=== PATIENT | female | born 1940 | race Caucasian/White ===

== ENCOUNTER 2019-09-12 18:41 | Emergency (ER) | payer MEDICARE, SELFPAY ==
[2019-09-12 18:54] VITALS: BP 157/64; PULSE 94; RESP 16; TEMP 36.8; O2SAT 98
--- NOTE | 2019-09-12 18:58 | PC.NURSE ---
in br to obtain ua spec.
--- NOTE | 2019-09-12 19:30 | ED.GENADULT ---
HPI - General Adult General Chief complaint: Urogenital-Female Stated complaint: possible uti Time Seen by Provider: 09/12/19 19:30 Source: patient and RN notes reviewed Mode of arrival: ambulatory Limitations: no limitations History of Present Illness HPI narrative: 79-year-old female presents with urinary complaints for 1 day. Dysuria consist of burning, frequency, decrease urine output, and urgency.? Azo with little relief.? Denies fever or chills. No significant pelvic pain. No vaginal discharge.? No concerns for STDs. Exacerbating factors urinating.? Denies hematuria or vaginal bleeding. Denies being , Hysterectomy.? No flank pain. Remains active. The patient reports she have not been diagnosed with COVID-19. The patient reports she is not waiting for the results of a COVID-19 lab test. The patient reports she do not have fever, chills, weakness, fatigue, or myalgia. The patient reports she do not have a new or worsening cough or shortness of breath. Denies chest pain. The patient reports she do not have any rhinorrhea, congestion, sore throat, nausea, vomiting, abdominal pain, and diarrhea. Tolerating po intake well. Denies concerns for COVID-19 or exposures been home with limited outdoor exposure except for essential household needs and return home. At this time, patient is not suspected of having COVID-19. Some parts of this dictation were generated by voice recognition software and may contain typographical and/or grammatical inaccuracies. Related Data Home Medications Medication Instructions Recorded Confirmed calcium carb 300 mg-D3 800 1 tablet PO DAILY 04/11/19 unit-mag ox 25 mg-copy operator 0.5 mg-danny-Zn tablet levothyroxine 50 mcg tablet 50 mcg PO DAILY 04/11/19 lisinopril 10 mg tablet 10 mg PO DAILY 04/11/19 omeprazole 20 mg capsule,delayed 20 mg PO DAILY 04/11/19 release spironolactone 25 mg tablet 25 mg PO DAILY 04/11/19 Allergies Allergy/AdvReac Type Severity Reaction Status Date / Time cefdinir Allergy Unknown Unknown Verified 04/11/19 14:15 clarithromycin Allergy Unknown Unknown Verified 04/11/19 14:15 clindamycin Allergy Unknown Unknown Verified 04/11/19 14:15 codeine Allergy Unknown Unknown Verified 04/11/19 14:15 dexamethasone Allergy Unknown Unknown Verified 04/11/19 14:15 doxycycline Allergy Unknown Unknown Verified 04/11/19 14:15 morphine Allergy Unknown Unknown Verified 04/11/19 14:15 tobramycin Allergy Unknown Unknown Verified 04/11/19 14:15 cephalexin AdvReac Mild YEAST Verified 04/11/19 14:15 INFECTION Review of Systems Review of Systems: Narrative: CONSTITUTIONAL: Denies fever, chills, sweats. EYES: Denies visual changes, redness, discharge. ENT: Denies rhinorrhea, congestion, sore throat, otalgia. CARDIOVASCULAR: Denies chest pain, palpitations, edema. RESPIRATORY: Denies dyspnea, wheezing, cough. GASTROINTESTINAL: Denies abdominal pain, nausea, vomiting, diarrhea. GENITOURINARY: Complains of dysuria (burning, frequency, decrease urine output, and urgency). Denies hematuria, abnormal discharge. SKIN: Denies rash or itching. MUSCULOSKELETAL: Denies acute back pain, joint pain, or myalgia. NEUROLOGIC: Denies numbness or focal weakness. PSYCHIATRIC: Denies anxiety or depression. All systems reviewed & are unremarkable except as noted in HPI and below. REPLACED BY [facility] Past Medical History Medical History (Updated 09/13/19 @ 00:00 by [facility] [place]) Acid reflux History of vaginal delivery Hypertension Irritable bowel Migraines Osteoporosis Thyroid disease Torn meniscus Surgical History Surgical History (Updated 09/12/19 @ 19:53 by FRANCISCO Ho) History of ankle surgery History of carpal tunnel release History of colon resection History of hemorrhoidectomy History of surgical removal of intestinal structure History of vaginal hysterectomy Family History Family History Sibling Family hist
--- NOTE | 2019-09-12 19:57 | PC.NURSE ---
urine order canceled due to inablilty to read from pt taking azo. culture was sent.
== END 2019-09-12 19:41 | disposition home or self-care (01) ==
PROVIDERS: Emergency Provider Nurse Practitioner Family; PCP Nurse Practitioner Adult Health
DX: R30.0 Dysuria (principal); K21.9 Gastro-esophageal reflux disease without esophagitis; I10 Essential (primary) hypertension; K58.9 Irritable bowel syndrome, unspecified; M81.0 Age-related osteoporosis without current pathological fracture
CPT/HCPCS: 87086; 99213; G0463

== ENCOUNTER 2019-12-24 21:36 | Inpatient (IN) | payer MEDICARE, SELFPAY ==
--- NOTE | ~2019-12-24 | XR_ITS ---
EXAMINATION: XR chest 1V portable EXAM DATE: 01/03/2020 06:28 INDICATION: COVID-19 pneumonia. TECHNIQUE: Portable AP frontal chest x-ray was obtained. Comparison is made to prior examination from 01/01. FINDINGS: There is a right-sided PICC line with tip projecting over the cavoatrial junction. Extensive bilateral acute airspace disease with relative sparing of the left lung apex. No pneumothor ax or pleural effusion. Cardiomediastinal silhouette is normal. Mild bony degenerative changes. There is no significant interval change. IMPRESSION: Extensive bilateral acute infectious process unchanged. Reviewed, dictated and finalized at location A.
--- NOTE | ~2019-12-24 | XR_ITS ---
EXAMINATION: XR chest PICC line EXAM DATE: 12/30/2019 13:05 INDICATION: COVID-19 pneumonia. TECHNIQUE: Portable AP frontal chest x-ray was obtained. Comparison is made to prior examination from earlier same date. FINDINGS: There is a right-sided PICC line with tip projecting over the cavoatrial junction. Extens florecita bilateral acute airspace disease with relative sparing of the left lung apex. No pneumothorax or pleural effusion. Cardiomediastinal silhouette is normal. Mild bony degenerative changes. IMPRESSION: Extensive bilateral acute airspace disease unchanged, likely infection given history pro vided. Reviewed, dictated and finalized at location A. IMPRESSION: Extensive bilateral acute airspace disease unchanged, likely infec tion given history provided.
--- NOTE | ~2019-12-24 | XR_ITS ---
XR chest 1V portable 12/28/2019 05:35 Indication: Pneumonia. Procedure: AP portable chest Comparison: Comparison to multiple prior studies sequentially, with oldest reviewed study dated 05/21. Findings: Heart size normal. There is patchy bilateral airspace disease which has progressed since , consistent with pneumonia. Heart size normal. No pleural effusion or pneumothorax. No acute osseous abnormality. Impression: 1: Progression of patchy bilateral airspace disease, compatible with pneumonia. Reviewed, dictated and finalized at location A. Impression: 1: Progression of patchy bilateral airspace disease, compatible with pneumonia.
--- NOTE | ~2019-12-24 | XR_ITS ---
XR chest 1V portable 12/27/2019 06:03 Indication: Pneumonia. Procedure: AP portable chest Comparison: Comparison to multiple prior studies sequentially, with oldest reviewed study dated 05/14. Findings: Heart size normal. There has been progression of diffuse bilateral airspace disease, compat ible with pneumonia. Possible small left effusion. No pneumothorax. Impression: 1: Progression of extensive bilateral pneumonia since prior examination. Reviewed, dictated and finalized at location A. Impression: 1: Progression of extensive bilateral pneumonia since prior examination.
--- NOTE | ~2019-12-24 | XR_ITS ---
EXAMINATION: XR chest 1V portable INDICATION: Weakness, COVID 19 positive 2 weeks ago TECHNIQUE: Portable AP chest at 2232 hours COMPARISON: 05/21/2011 FINDINGS: There are peripheral airspace opacities with a mid and lower lung zone predominance. No ple ural effusion or pneumothorax is identified. The cardiomediastinal silhouette is normal. IMPRESSION: 1. Bilateral airspace opacities in a distribution consistent with COVID 19 pneumonia. Reviewed, dictated and finalized at location A. IMPRESSION: 1. Bilateral airspace opacities in a distribution consistent with COVID 19 pneu monia.
--- NOTE | ~2019-12-24 | XR_ITS ---
XR chest 1V portable DATE: 01/06/2020 07:01 INDICATION: Covid pneumonia TECHNIQUE: Portable AP chest on 01/06/2020 at 0624 hours COMPARISON: 01/03/2020 portable AP chest at 0504 hours FINDINGS: There are persistent patchy bilateral pulmonary infiltrates with little interval change sin ce 01/03/2020. Heart size appears within normal limits. There is extensive aortic calcification. Diffuse osteopenia. Right upper extremity PIC catheter tip is situated near the superior cavoatrial junction. IMPRESSION: Extensive bilateral pulmonary infiltrates, essentially stable since 01/03/2020 Reviewed, dictated and finalized at location A.
--- NOTE | ~2019-12-24 | XR_ITS ---
XR chest 1V portable 12/29/2019 05:54 Indication: Pneumonia. Dyspnea. Procedure: AP portable chest Comparison: Comparison to multiple prior studies sequentially, with oldest reviewed study dated 12/23. Findings: Heart size normal. Extensive bilateral airspace disease has progressed, consistent with pne umonia. Possible small effusion. No pneumothorax. No acute osseous abnormality. Impression: 1: Progression of diffuse bilateral airspace disease, consistent with pneumonia. Edema not excluded. Reviewed, dictated and finalized at location A. Impression: 1: Progression of diffuse bilateral airspace disease, consistent with pneumonia . Edema not excluded.
--- NOTE | ~2019-12-24 | XR_ITS ---
EXAMINATION: XR chest 1V portable EXAM DATE: 12/30/2019 06:08 INDICATION: COVID-19 pneumonia. TECHNIQUE: Portable AP frontal chest x-ray was obtained. Comparison is made to prior examination from 12/29/2019. FINDINGS: Extensive bilateral acute airspace disease with relative sparing of the left lung apex. No pneumothorax or pleural effusion. Cardiomediastinal silhouette is normal. There are no osseous abnorm alities identified. Accounting for differences in technique, there is no significant interval change. IMPRESSION: Extensive bilateral acute airspace disease, likely infection given history provided. Reviewed, dictated and finalized at location A.
--- NOTE | ~2019-12-24 | XR_ITS ---
EXAMINATION: XR chest 1V portable EXAM DATE: 12/26/2019 09:56 INDICATION: COVID-19. Worsening hypoxia. TECHNIQUE: Portable AP frontal chest x-ray was obtained. Comparison is made to prior examination from 12/24/2019. FINDINGS: Again there is moderate amount of bilateral ill-defined peripheral predominant acute airspa ce disease, appearance and distribution not significantly changed. No pneumothorax or pleural effusio n. Cardiomediastinal silhouette is normal. There are mild bony degenerative changes. Mild scattered a ortic arterial sclerosis. IMPRESSION: Moderate amount of acute bilateral airspace disease unchanged. Reviewed, dictated and finalized at location B.
--- NOTE | ~2019-12-24 | XR_ITS ---
EXAMINATION: XR chest 1V portable EXAM DATE: 12/31/2019 06:08 INDICATION: COVID-19 pneumonia. TECHNIQUE: Portable AP frontal chest x-ray was obtained. Comparison is made to prior examination from 12/29, 12/28. FINDINGS: There is a right-sided PICC line with tip projecting over the cavoatrial junction. Extensive bilateral acute airspace disease with relative sparing of the left lung apex. No pneumothor ax or pleural effusion. Cardiomediastinal silhouette is normal. Mild bony degenerative changes. There is no significant interval change. IMPRESSION: Extensive bilateral acute infectious process unchanged. Reviewed, dictated and finalized at location A.
--- NOTE | ~2019-12-24 | XR_ITS ---
EXAMINATION: XR chest 1V portable EXAM DATE: 01/02/2020 05:55 INDICATION: COVID-19 pneumonia. TECHNIQUE: Portable AP frontal chest x-ray was obtained. Comparison is made to prior examination from 12/30. FINDINGS: There is a right-sided PICC line with tip projecting over the cavoatrial junction. Extensive bilateral acute airspace disease with relative sparing of the left lung apex. No pneumothor ax or pleural effusion. Cardiomediastinal silhouette is normal. Mild bony degenerative changes. There is no significant interval change. IMPRESSION: Extensive bilateral acute infectious process unchanged. Reviewed, dictated and finalized at location A.
[2019-12-24 21:47] VITALS: BP 158/68; PULSE 102; RESP 23; TEMP 36.7; O2SAT 72
--- NOTE | 2019-12-24 21:55 | ECG_ITS ---
Measurements Intervals [place] Rate: 103 P: 32 CT: 139 QRS: 35 QRSD: 104 T: 35 QT: 326 QTc: 429 Interpretive Statements SINUS TACHYCARDIA DELAYED PRECORDIAL R/S TRANSITION BASELINE WANDER- V4-V6 BORDERLINE ECG Electronically Signed On 12-25-2019 6:42:09 CDT by Steve Del Castillo D.O.
--- NOTE | 2019-12-24 21:57 | ED.GENADULT ---
HPI - General Adult General Chief complaint: Weakness Stated complaint: COVID+/FEVER/NO CHAN/N/V Time Seen by Provider: 12/24/19 21:44 Source: patient Mode of arrival: ambulatory History of Present Illness HPI narrative: Patient is a 79 y/o female complaining of severe generalized weakness for approximately 1 week. There is no alleviating or exacerbating factor. She states that she also has fever, cough, nausea and poor appetite. She has headache and body ache. She denies SOB, but pulse ox at home was showing low readings. She tested positive for COVID approximately 1 week ago on 12/16. She states that at the time she was tested, she was not symptomatic. She got tested because her friend tested positive on routine pre-op testing. She started to feel sick shortly after she tested positive for COVID. Related Data Home Medications Medication Instructions Recorded Confirmed calcium carb 300 mg-D3 800 1 tablet PO DAILY 04/11/19 12/25/19 unit-mag ox 25 mg-copyman 0.5 mg-danny-Zn tablet lisinopril 10 mg tablet 10 mg PO DAILY 04/11/19 12/25/19 omeprazole 20 mg capsule,delayed 20 mg PO DAILY 04/11/19 12/25/19 release spironolactone 25 mg tablet 25 mg PO DAILY 04/11/19 12/25/19 benzonatate 200 mg PO TID 12/24/19 12/25/19 levothyroxine 50 mcg PO DAILY 12/24/19 12/25/19 Allergies Allergy/AdvReac Type Severity Reaction Status Date / Time cefdinir Allergy Unknown Unknown Verified 12/24/19 21:59 clarithromycin Allergy Unknown Unknown Verified 12/24/19 21:59 clindamycin Allergy Unknown Unknown Verified 12/24/19 21:59 codeine Allergy Unknown Unknown Verified 12/24/19 21:59 dexamethasone Allergy Unknown Unknown Verified 12/24/19 21:59 doxycycline Allergy Unknown Unknown Verified 12/24/19 21:59 morphine Allergy Unknown Unknown Verified 12/24/19 21:59 tobramycin Allergy Unknown Unknown Verified 12/24/19 21:59 cephalexin AdvReac Mild YEAST Verified 12/24/19 21:59 INFECTION Review of Systems Constitutional: Constitutional: Reports chills, Reports fever(s), Reports headache(s) and Reports weakness Eyes: Eyes: Denies blurry vision ENT: Reports headache(s) and Denies neck pain Cardiovascular: Cardiovascular: Denies chest pain and Denies dyspnea Respiratory: Respiratory: Reports cough and Denies dyspnea Gastrointestinal: Gastrointestinal: Denies abdominal pain, Denies diarrhea, Denies nausea and Denies vomiting Genitourinary: Genitourinary: Denies hematuria and Denies dysuria Musculoskeletal: Musculoskeletal: Denies back pain and Denies neck pain Neurologic: Denies headache(s) and Reports weakness PMFSH Past Medical History Medical History (Updated 12/25/19 @ 03:11 by Bindu Sun DO) Acid reflux Adrenal adenoma benign Hepatic steatosis and liver cyst Hiatal hernia Hypertension Hypothyroidism Irritable bowel Migraines Osteoporosis Surgical History Surgical History (Updated 12/25/19 @ 02:43 by Bindu Sun DO) History of ankle surgery (~2000) ORIF right ankle History of bilateral cataract extraction History of carpal tunnel surgery of right wrist (~2015) History of colonoscopy with polypectomy most recent December 2018 with edematous polyps History of hemorrhoidectomy (~2011) History of medial meniscus repair of right knee (~2014) History of reconstructive repair of rectocele (~1995) History of vaginal hysterectomy (~1995) without oophorectomy S/P laparoscopic-assisted sigmoidectomy (~08/2018) due to chronic diverticulitis Family History Family History Sibling Hypertension Hyperlipidemia Thyroid disease it sounds as if the patient sister likely had Graves disease with a thyroidectomy and then became ill because her thyroid hormone was not replaced. Acute myocardial infarction Brother early-onset Artificial cardiac pacemaker brother Mother Hypertension Thyroid disease It sounds as if her mother likely had Grav
[2019-12-24 22:08] LABS: Basophils Percent Auto 0.4 % (0.2-1.2); Eosinophils Percent Auto 0.1 % (0-4.4); Hematocrit 35.7 % (37.0-47.0); Hemoglobin 11.8 g/dL (12.0-15.0); Immature Granulocyte Absolute 0.15 K/mm3 (0.00-0.031); Lymphocytes Absolute Auto 0.98 K/mm3 (0.9-3.2); Lymphocytes Percent Auto 12.9 % (18.3-44.2); Mean Corpuscular HGB Conc 33.1 g/dl (32-36); Mean Corpuscular Hemoglobin 36.5 pg (26-34); Mean Corpuscular Volume 110.5 fl (80-100); Mean Platelet Volume 11.7 fl (7.4-10.4); Monocytes Absolute Auto 0.9 K/mm3 (0.1-0.6); Monocytes Percent Auto 11.4 % (2.6-8.5); Neutrophils Absolute Auto 5.6 K/mm3 (1.3-6.7); Neutrophils Percent Auto 73.2 % (45.5-73.1); Nucleated Red Blood Cells Perc 0.3 % (0.0-0.2); Platelet Count Result 282 k/mm3 (150-375); Red Blood Count 3.23 M/mm3 (4.2-5.4); Red Cell Distribution Width 13.2 % (11.5-14.5); White Blood Count 7.6 K/mm3 (4.5-10.0)
[2019-12-24 22:16] LABS: Platelet Estimate Adequate (Adequate)
[2019-12-24 22:17] LABS: Alanine Aminotransferase 47 U/L (4-35); Alkaline Phosphatase 31 U/L (38-126); Anion Gap 9 mmol/L (8-16); Aspartate Amino Transferase 50 U/L (14-36); Atypical Lymphocytes Present; Blood Urea Nitrogen 17 mg/dL (7-17); Calcium 8.8 mg/dL (8.4-10.2); Carbon Dioxide 33 mmol/L (22-30); Chloride 94 mmol/L (98-107); Estimated CRCL calculation 40 ml/min; Estimated Glomerular Filt Rate > 60; Glucose 130 mg/dL (65-105); Potassium 3.8 mmol/L (3.4-5.0); Sodium 136 mmol/L (137-145)
[2019-12-24 22:17] LABS: Alveolar/Arterial O2 Gradient 66.8 mmHg; Fractional Inspired Oxygen 21 %; HCO3 ABG 26.7 mEq/l (22.0-26.0); Oxygen Content ABG 11.7 %vol (16.0-22.0); PCO2 ABG 37.6 mmHg (35.0-45.0); Total Hemoglobin 11.9 g/dL (12.0-18.0); pH ABG 7.469 (7.350-7.450)
[2019-12-24 22:18] LABS: PO2 ABG 37.9 mmHg (80.0-100.0)
[2019-12-24 22:19] LABS: Device ROOM AIR; Modified Allen's Test Pass; Oxygen Saturation ABG 75.8 % (95.0-100.0); Site Drawn RIGHT RADIAL
[2019-12-24 22:28] LABS: Troponin I 0.021 ng/mL (0.000-0.034)
[2019-12-24 23:00] VITALS: BP 148/67; PULSE 95; RESP 26; O2SAT 91
[2019-12-24 23:18] LABS: Add Urine Microscopic? YES; Appearance Urine Cloudy (Clear); Bacteria Urine Trace /hpf; Bilirubin Urine Negative (Negative); Blood Urine 1+ (Negative); Color Urine Amber (Yellow); Glucose Urine UA Negative (Negative); Ketones Urine Negative (Negative); Leukocyte Esterase Ur 2+ LEU/UL (Negative); Mucus Urine Few /lpf; Nitrate Urine Negative (Negative); Protein Urine 2+ mg/dL (Negative); Specific Grav Ur 1.025 (1.001-1.035); Squamous Epithelial Cell Urine Many /hpf (Few); WBC Urine 16-20 /hpf
[2019-12-24 23:30] VITALS: BP 101/81; PULSE 92; RESP 25; O2SAT 96
[2019-12-24] MEDS: REMDESIVIR 200 MG/NS 250 ML 200 MG/250 ML BAG 250 MG IVPB (23:30)
--- NOTE | 2019-12-24 23:37 | PM.IMHP ---
H&P: HPI History of Present Illness Date/Time: 12/24/19 23:37 Chief complaint: COVID positive, low oxygen saturation Narrative: Venessa Villar is a 79 year old female with a past medical history of hypertension and COVID19 who presented to the ER with worsening symptoms and low oxygen saturations. The patient had went to an outdoor restaurant for a celebration with some friends. One of those friends was supposed to have a cataract surgery and had COVID testing preoperatively. The friend was asymptomatic but tested positive for COVID 19. Subsequently 5/6 people that went to dinner tested positive for COVID. The patient's daughters have both now been tested and her positive for COVID as well as some of her grandchildren. The patient was subsequently tested on December 16 and her test results came back a couple of days later and she was positive. The day after she was tested she began having generalized body ache, headache and fatigue . She also developed rhinorrhea and postnasal drip as well as a cough productive of small amount of sputum. Cough was unrelieved despite Benzonate. She was coughing so much that she would have post-tussive emesis. She was also having significant nausea. She denies any abdominal pain, diarrhea or changes in bowel habits. Her daughter was a nurse at a student accounts manager office brought over a pulse oximeter And check the patient's oxygen saturations. The oxygen saturations on the home Pulse oximeter ranging anywhere from the mid 40s up to the mid 50s. The pulse oximeter was reading normal pulse oximetry values for the rest of the family members. the patient reports being afebrile until earlier today when she was 100.2 before coming to the ER. She has noticed a complete loss of sense of taste. She denies loss of sense of smell. given the patient's significant oxygen requirement and increasing oxygen requirement we did try to discuss with the patient the use of Decadron. She refuses to take Decadron because she has a allergy her reported allergy to Decadron is anxiety, headache and high blood pressure. She states that her physician told her to never take Decadron again if that was the case . Both I and the ER physician tried to discuss with the patient these are side effects and not a true allergic reaction but the patient is adamant that she will not take Decadron. Incidentally many of the patient's listed allergies involve nausea, upset stomach or increased sleepiness. Her allergy to Keflex was a yeast infection. Review of Systems Review of Systems: Narrative: 12 systems were reviewed with pertinent positives and negatives per HPI. Except as documented in the HPI, all other systems were reviewed and are negative. [facility] Past Medical History Medical History (Updated 12/25/19 @ 03:11 by Bindu Sun DO) Acid reflux Adrenal adenoma benign Hepatic steatosis and liver cyst Hiatal hernia Hypertension Hypothyroidism Irritable bowel Migraines Osteoporosis Surgical History Surgical History (Updated 12/25/19 @ 02:43 by Bindu Sun DO) History of ankle surgery (~2000) ORIF right ankle History of bilateral cataract extraction History of carpal tunnel surgery of right wrist (~2015) History of colonoscopy with polypectomy most recent December 2018 with edematous polyps History of hemorrhoidectomy (~2011) History of medial meniscus repair of right knee (~2014) History of reconstructive repair of rectocele (~1995) History of vaginal hysterectomy (~1995) without oophorectomy S/P laparoscopic-assisted sigmoidectomy (~08/2018) due to chronic diverticulitis Family History Family History Sibling Hypertension Hyperlipidemia Thyroid disease it sounds as if the patient sister likely had Graves disease with a thyroidectomy and then became ill because her thyroid hormone was not replaced. Acute myocardial infarction Brother e
[2019-12-25] VITALS (27 sets, daily range): BP systolic 105–149; BP diastolic 44–63; PULSE 69–98; RESP 20–31; TEMP 36.4–38.8; O2SAT 81–95; BMI 33.1
--- NOTE | 2019-12-25 01:26 | ADMIMU ---
This patient, Venessa Villar, was admitted to IMU status, and placed in Intensive Care Unit-3 on 12/25/2019 0100. Patient/family oriented to hospital policies and general routines including ID bracelet, bed and alarms, visiting hours, pain management, procedures, bathroom and other care routines, personal items, smoking policy, room service/diet, and visiting hours. Valuables list has been completed. Information on how to activate the Rapid Response Team has been discussed. Patient/Family are encouraged to report perceived risks to care and to ask questions if they do not understand what they are told or what they should do.
[2019-12-25 01:46] LABS: Troponin I 0.025 ng/mL (0.000-0.034)
[2019-12-25] MEDS: ONDANSETRON INJ 4 MG/2 ML VIAL IV PUSH ×2 (04:33→18:57)
[2019-12-25 04:59] LABS: Alanine Aminotransferase 38 U/L (4-35)
[2019-12-25 05:11] LABS: Troponin I 0.022 ng/mL (0.000-0.034)
[2019-12-25] MEDS: LEVOTHYROXINE SODIUM 50 MCG TABLET PO (06:18)
[2019-12-25] MEDS: LEVALBUTEROL HFA (*SP) 15 GM INHALER 4 PUFF INHALATION ×3 (08:13→19:42)
[2019-12-25] MEDS: lisinopriL 10 MG TABLET PO (08:48)
[2019-12-25] MEDS: BENZONATATE 100 MG CAPSULE 200 MG PO ×3 (08:48→16:08)
[2019-12-25] MEDS: PANTOPRAZOLE 40 MG TABLET PO (08:48)
[2019-12-25] MEDS: ENOXAPARIN 40 MG/0.4 ML SYRINGE SUB-Q ×3 (08:48→20:29)
[2019-12-25 09:17] LABS: Estimated CRCL calculation 46 ml/min; Estimated Glomerular Filt Rate > 60
[2019-12-25] MEDS: predniSONE 20 MG TABLET 40 MG PO (11:56)
[2019-12-25] MEDS: ACETAMINOPHEN 325 MG TABLET 650 MG PO (11:57)
--- NOTE | 2019-12-25 15:57 | PM.IMPN ---
Progress Note: A&P Assessment and Plan (1) Acute respiratory failure with hypoxia: Code(s): J96.01 - Acute respiratory failure with hypoxia Status: Acute Assessment and Plan: The patient has been placed on Remdesivir. She refused Decadron stating she was allergic but did state she was taking prednisone and agreed to equivalent dose of prednisone daily ie 40 mg. The patient was requiring 4 L nasal cannula in the ER. this has been slowly increased. Patient has been admitted to the IMU status in the ICU And will monitor closely. If oxygen requirements continue to rise then will use convalescent plasma. Continue isolation. (2) Pneumonia due to COVID-19 virus: Code(s): U07.1 - COVID-19; J12.89 - Other viral pneumonia Status: Acute Assessment and Plan: Continue Remdesivir and prednisone Supplemental oxygen. Maintain balanced fluid status. Xopenex and Spiriva inhalers (3) Sepsis: Qualifiers: Sepsis type: sepsis due to unspecified organism Sepsis acute organ dysfunction status: with acute organ dysfunction Severe sepsis acute organ dysfunction type: acute respiratory failure Acute respiratory failure type: with hypoxia Severe sepsis shock status: without septic shock Qualified Code(s): A41.9 - Sepsis, unspecified organism; R65.20 - Severe sepsis without septic shock; J96.01 - Acute respiratory failure with hypoxia Code(s): A41.9 - Sepsis, unspecified organism Status: Acute Assessment and Plan: due to COVID. based on criteria of fever, tachypnea, hypoxia. The patient's transaminases are elevated but she states that she always has some mildly elevated liver enzymes. continue to follow with the delisa rx Subjective Date/time seen: 12/25/19 15:57 Interval history: date of visit 12/24. 79-year-old female with known COVID presented with fever malaise increasing shortness of breath. O2 sats at home were not read showing in here she is found to be hypoxic and recovered with high-flow oxygen. Within 10 day window so started on remdesivir and steroids. feels poorly with loss of taste also. Exam Narrative: Exam Narrative: blood pressure 136/60 pulse is 90 respirations 24 per minute satting 93% on nasal cannula high-flow with a temp of 38?.8 pupil equal reactive to light sclera anicteric neck is supple lungs very faint crackle right posterior base CV regular rate rhythm no murmur abdomen is soft nontender no masses extremities without edema distal pulses 1+ neuro left pleasant cooperative Objective Data Vital Signs Vital Signs: Vital Signs - 24 hr 12/24/19 21:47 12/24/19 23:00 12/24/19 23:30 Temperature 36.7 C Pulse Rate 102 H 95 92 Respiratory Rate 23 H 26 H 25 H Blood Pressure 158/68 H 148/67 H 101/81 Pulse Oximetry 72 L 91 96 12/25/19 00:25 12/25/19 01:00 12/25/19 01:05 Temperature 38.1 C H Pulse Rate 91 85 Respiratory Rate 22 H 31 H Blood Pressure 136/63 145/61 H Pulse Oximetry 95 84 L 82 L 12/25/19 01:15 12/25/19 01:45 12/25/19 02:00 Temperature Pulse Rate 84 Respiratory Rate Blood Pressure Pulse Oximetry 89 L 92 12/25/19 03:31 12/25/19 04:00 12/25/19 06:00 Temperature 36.8 C 36.9 C Pulse Rate 79 83 Respiratory Rate 22 H Blood Pressure 143/59 H Pulse Oximetry 94 12/25/19 08:00 12/25/19 08:14 12/25/19 08:21 Temperature Pulse Rate 92 93 94 Respiratory Rate 20 20 20 Blood Pressure 149/53 H Pulse Oximetry 93 81 L 84 L 12/25/19 08:31 12/25/19 10:00 12/25/19 11:57 Temperature 38.8 C H Pulse Rate 92 95 Respiratory Rate 20 Blood Pressure Pulse Oximetry 93 12/25/19 12:00 12/25/19 14:00 12/25/19 14:15 Temperature 38.8 C H Pulse Rate 90 80 80 Respiratory Rate 26 H 20 Blood Pressure 137/60 Pulse Oximetry 93 Intake/Output Intake/Output: Intake & Output 12/22/19 12/23/19 12/24/19 12/25/19 23:59 23:59 23:59 23:59
[2019-12-25] MEDS: REMDESIVIR 100 MG/NS 250 ML 100 MG/250 ML BAG 250 MG IVPB (22:09)
[2019-12-26] VITALS (21 sets, daily range): BP systolic 113–143; BP diastolic 47–77; PULSE 71–91; RESP 16–30; TEMP 36.2–36.6; O2SAT 79–99
[2019-12-26] MEDS: LEVALBUTEROL HFA (*SP) 15 GM INHALER 4 PUFF INHALATION ×4 (03:02→20:39)
[2019-12-26 03:31] LABS: Basophils Percent Auto 0.4 % (0.2-1.2); Hematocrit 32.6 % (37.0-47.0); Hemoglobin 11.1 g/dL (12.0-15.0); Immature Granulocyte Absolute 0.09 K/mm3 (0.00-0.031); Immature Granulocyte Percent A 1.9 % (0-0.5); Lymphocytes Absolute Auto 0.94 K/mm3 (0.9-3.2); Lymphocytes Percent Auto 19.5 % (18.3-44.2); Mean Corpuscular Hemoglobin 36.8 pg (26-34); Mean Corpuscular Volume 107.9 fl (80-100); Mean Platelet Volume 11.5 fl (7.4-10.4); Monocytes Absolute Auto 0.5 K/mm3 (0.1-0.6); Monocytes Percent Auto 9.4 % (2.6-8.5); Neutrophils Absolute Auto 3.3 K/mm3 (1.3-6.7); Neutrophils Percent Auto 68.8 % (45.5-73.1); Nucleated Red Blood Cells Perc 0.4 % (0.0-0.2); Platelet Count Result 251 k/mm3 (150-375); Red Blood Count 3.02 M/mm3 (4.2-5.4); White Blood Count 4.8 K/mm3 (4.5-10.0)
[2019-12-26 03:41] LABS: INR 1.4; Prothrombin Time 16.4 Seconds (11.1-14.7)
[2019-12-26 03:43] LABS: D Dimer 2.75 ug/mL (<0.48)
[2019-12-26 03:45] LABS: Albumin Level 3.4 g/dL (3.5-5.1)
[2019-12-26 03:58] LABS: Alanine Aminotransferase 40 U/L (4-35); Alkaline Phosphatase 31 U/L (38-126); Anion Gap 4 mmol/L (8-16); Aspartate Amino Transferase 40 U/L (14-36); Bilirubin,Total 0.8 mg/dL (0.2-1.3); Blood Urea Nitrogen 17 mg/dL (7-17); CRP 8.8 mg/dL (<1.0); Calcium 8.8 mg/dL (8.4-10.2); Carbon Dioxide 34 mmol/L (22-30); Chloride 99 mmol/L (98-107); Estimated CRCL calculation 52 ml/min; Estimated Glomerular Filt Rate > 60; Glucose 128 mg/dL (65-105); Lactate Dehydrogenase 1142 U/L (313-618); Potassium 3.8 mmol/L (3.4-5.0); Sodium 137 mmol/L (137-145)
[2019-12-26 04:20] LABS: Atypical Lymphocytes Present; Platelet Estimate Adequate (Adequate)
[2019-12-26 04:21] LABS: Hypochromasia 1+ (NORMAL); Ovalocytes 1+ (NORMAL)
[2019-12-26] MEDS: LEVOTHYROXINE SODIUM 50 MCG TABLET PO (05:28)
[2019-12-26] MEDS: BENZONATATE 100 MG CAPSULE 200 MG PO ×3 (08:01→17:09)
[2019-12-26] MEDS: PANTOPRAZOLE 40 MG TABLET PO (08:01)
[2019-12-26] MEDS: predniSONE 20 MG TABLET 40 MG PO (08:01)
[2019-12-26] MEDS: lisinopriL 10 MG TABLET PO (08:01)
[2019-12-26] MEDS: ENOXAPARIN 40 MG/0.4 ML SYRINGE SUB-Q ×2 (08:02→20:04)
[2019-12-26] MEDS: ONDANSETRON INJ 4 MG/2 ML VIAL IV PUSH (08:41)
--- NOTE | 2019-12-26 08:52 | WPDCNINT ---
Assessment and Plan Assessment and plan (1) Acute respiratory failure with hypoxia: Code(s): J96.01 - Acute respiratory failure with hypoxia Status: Acute Assessment and Plan: acute respiratory failure with hypoxia likely related to COVID-19 pneumonia - patient currently on high-flow therapy, 90% FiO2, 60 L flow rate. Wean FiO2 to maintain O2 sats greater than 92% - patient was also on non-rebreather mask overnight which has been discontinued this morning - cough has improved, continue Tessalon Perles (2) Pneumonia due to COVID-19 virus: Code(s): U07.1 - COVID-19; J12.89 - Other viral pneumonia Status: Acute Assessment and Plan: chest x-ray has been ordered - positive COVID-19 - continue droplet, airborne, contact isolation /precautions - inflammatory markers being monitored, increasing ferritin, LDH , D-dimer and CRP. will continue to follow - patient refused dexamethasone as she is allergic to it, had been placed on prednisone started on 12/25/2019. Patient is also on Remdesivir started on 12/25/2019 - discussed with patient and her daughter, will transfuse convalescent COVID-19 plasma (3) Elevated LFTs: Code(s): R79.89 - Other specified abnormal findings of blood chemistry Status: Acute Assessment and Plan: mildly elevated LFTs, could be related to hepatic steatosis, will continue to monitor the ALT closely as patient is on Remdesivir (4) Sepsis: Qualifiers: Sepsis type: sepsis due to unspecified organism Sepsis acute organ dysfunction status: with acute organ dysfunction Severe sepsis acute organ dysfunction type: acute respiratory failure Acute respiratory failure type: with hypoxia Severe sepsis shock status: without septic shock Qualified Code(s): A41.9 - Sepsis, unspecified organism; R65.20 - Severe sepsis without septic shock; J96.01 - Acute respiratory failure with hypoxia Code(s): A41.9 - Sepsis, unspecified organism Status: Acute Assessment and Plan: stable - patient with hypoxia, tachypnea, elevated LFTs - will continue to monitor (5) DVT prophylaxis: Code(s): Z29.9 - Encounter for prophylactic measures, unspecified Status: Acute Assessment and Plan: continue Lovenox 40 mg SQ q.12 hours (6) Hypothyroidism: Code(s): E03.9 - Hypothyroidism, unspecified Status: Acute Assessment and Plan: continue levothyroxine (7) Essential hypertension: Code(s): I10 - Essential (primary) hypertension Status: Acute Assessment and Plan: patient on lisinopril, blood pressures have been stable Additional Plan discussed with patient and her daughter Nargis, regarding patient's condition and plan of care. I did discuss with them regarding intubation if patient's condition worsens as she has increased oxygen requirements. Both of them did agree to intubation. Code status: Full code Critical care time spent: [address] Due to a high probability of clinically significant, life threatening deterioration, the patient required my highest level of preparedness to intervene emergently and I personally spent this critical care time directly and personally managing the patient. This critical care time included obtaining a history; examining the patient; pulse oximetry; ordering and review of studies; arranging urgent treatment with development of a management plan; evaluation of patient's response to treatment; frequent reassessment; and discussions with other providers. It was exclusive of separately billable procedures and treating other patients and teaching time. Please see Assessment and Plan section and the rest of the note for further information on patient assessment and treatment [facility] Consult Note Consult date: 12/26/19 Time Seen: 07:03 Reason for consult: COVID-19 19 pneumonia, acute respiratory failure with worsening hypoxia HPI: Venessa
--- NOTE | 2019-12-26 11:24 | PCDIET ---
ICU Rounding Note: Patient eating small amounts on regular diet with Ensure Compact BID. Last recorded weight is 77.2kg which is stable with last review. Bowel Motility: Last BM on 12/22/19. Labs Reviewed: Hgb (11.2), Hct (32.6), Glu (128), Alb (3.4) Meds Noted: Xopenex, Synthroid, Prinivil, Protonix, Zofran, Prednisone, Remdesivir Additional Notes: Patient to receive antibody rich plasma today. No documented skin breakdown. Following daily in ICU rounds. Assessing/reassessing every 3 days.
--- NOTE | 2019-12-26 15:52 | PM.IMPN ---
Progress Note: A&P Assessment and Plan (1) Acute respiratory failure with hypoxia: Code(s): J96.01 - Acute respiratory failure with hypoxia Status: Acute Assessment and Plan: The patient has been placed on Remdesivir. She refused Decadron stating she was allergic but did state she has taken prednisone and agreed to equivalent dose of prednisone daily ie 40 mg. D# 2 of each The patient was requiring 4 L nasal cannula in the ER. this has been increased. Patient has been changed to ICU status. With oxygen requirements continue to rise will use convalescent plasma today. Continue isolation. (2) Pneumonia due to COVID-19 virus: Code(s): U07.1 - COVID-19; J12.89 - Other viral pneumonia Status: Acute Assessment and Plan: Continue Remdesivir and prednisone and plasma today Supplemental oxygen. Maintain balanced fluid status. Xopenex and Spiriva inhalers (3) Sepsis: Qualifiers: Sepsis type: sepsis due to unspecified organism Sepsis acute organ dysfunction status: with acute organ dysfunction Severe sepsis acute organ dysfunction type: acute respiratory failure Acute respiratory failure type: with hypoxia Severe sepsis shock status: without septic shock Qualified Code(s): A41.9 - Sepsis, unspecified organism; R65.20 - Severe sepsis without septic shock; J96.01 - Acute respiratory failure with hypoxia Code(s): A41.9 - Sepsis, unspecified organism Status: Acute Assessment and Plan: due to COVID. based on criteria of fever, tachypnea, hypoxia. The patient's transaminases are elevated but she states that she always has some mildly elevated liver enzymes. continue to follow with the remdesivie rx (4) Essential hypertension: Code(s): I10 - Essential (primary) hypertension Status: Acute Assessment and Plan: bp good continue DAYNA (5) DVT prophylaxis: Code(s): Z29.9 - Encounter for prophylactic measures, unspecified Status: Acute Assessment and Plan: lovenox 40 bid Subjective Date/time seen: 12/26/19 15:52 Interval history: date of visit 12/25. 79-year-old female with known COVID presented with fever malaise increasing shortness of breath. O2 sats at home were low and in ER here she is found to be hypoxic and recovered with high-flow oxygen. Within 10 day window so started on remdesivir and steroids. feels poorly with loss of taste also and oxygen requirements have increased overnight Exam Narrative: Exam Narrative: blood pressure 126/60 pulse is 78 respirations 24 per minute satting 92 % on nasal cannula high-flow with intermittant non rebreather ,T Max temp of 38?.8 pupil equal reactive to light sclera anicteric neck is supple lungs very faint crackle right posterior base CV regular rate rhythm no murmur abdomen is soft nontender no masses extremities without edema distal pulses 1+ neuro left pleasant cooperative no focal deficits Objective Data Vital Signs Vital Signs: Vital Signs - 24 hr 12/25/19 16:00 12/25/19 18:00 12/25/19 19:42 Temperature 36.4 C Pulse Rate 69 76 78 Respiratory Rate 26 H 24 H Blood Pressure 105/48 L Pulse Oximetry 91 90 12/25/19 20:00 12/25/19 21:02 12/25/19 21:33 Temperature 36.6 C Pulse Rate 84 89 82 Respiratory Rate 27 H 26 H 25 H Blood Pressure 108/44 L Pulse Oximetry 90 93 90 12/25/19 22:00 12/25/19 23:01 12/25/19 23:12 Temperature Pulse Rate 83 76 73 Respiratory Rate 24 H 24 H Blood Pressure Pulse Oximetry 89 L 89 L 12/26/19 00:00 12/26/19 02:00 12/26/19 03:04 Temperature 36.6 C Pulse Rate 76 74 79 Respiratory Rate 26 H 20 Blood Pressure 122/56 L Pulse Oximetry 92 12/26/19 03:10 12/26/19 03:38 12/26/19 04:00 Temperature 36.4 C Pulse Rate 89 82 80 Respiratory Rate 30 H 25 H 24 H Blood Pressure 117/55 L Pulse Oximetry 79 L 88 L 91 12/26/19 06:00 12/26/19 08:00 12/26/19 08:50
[2019-12-26] MEDS: SODIUM CHLORIDE 0.9% IV 100 ML 30 ML (16:48)
[2019-12-26] MEDS: REMDESIVIR 100 MG/NS 250 ML 100 MG/250 ML BAG 250 MG IVPB (22:32)
[2019-12-27] VITALS (15 sets, daily range): BP systolic 107–134; BP diastolic 51–92; PULSE 73–95; RESP 18–31; TEMP 36.2–37.2; O2SAT 89–96
[2019-12-27] MEDS: LEVALBUTEROL HFA (*SP) 15 GM INHALER 4 PUFF INHALATION ×4 (02:32→19:49)
[2019-12-27 04:01] LABS: Hematocrit 32.3 % (37.0-47.0); Hemoglobin 10.7 g/dL (12.0-15.0); Mean Corpuscular HGB Conc 33.1 g/dl (32-36); Mean Corpuscular Volume 111.8 fl (80-100); Mean Platelet Volume 11.6 fl (7.4-10.4); Platelet Count Result 296 k/mm3 (150-375); Red Blood Count 2.89 M/mm3 (4.2-5.4); Red Cell Distribution Width 13.2 % (11.5-14.5); White Blood Count 7.8 K/mm3 (4.5-10.0)
[2019-12-27 04:13] LABS: D Dimer 2.46 ug/mL (<0.48)
[2019-12-27 04:47] LABS: Anion Gap 3 mmol/L (8-16); Blood Urea Nitrogen 22 mg/dL (7-17); CRP 6.1 mg/dL (<1.0); Calcium 8.6 mg/dL (8.4-10.2); Carbon Dioxide 36 mmol/L (22-30); Chloride 101 mmol/L (98-107); Estimated CRCL calculation 52 ml/min; Estimated Glomerular Filt Rate > 60; Glucose 114 mg/dL (65-105); Lactate Dehydrogenase 971 U/L (313-618); Magnesium 2.4 mg/dL (1.6-2.3); Phosphorus 4.6 mg/dL (2.5-4.5); Potassium 3.7 mmol/L (3.4-5.0); Sodium 140 mmol/L (137-145)
[2019-12-27] MEDS: LEVOTHYROXINE SODIUM 50 MCG TABLET PO (06:20)
[2019-12-27] MEDS: BENZONATATE 100 MG CAPSULE 200 MG PO ×3 (08:30→17:22)
[2019-12-27] MEDS: lisinopriL 10 MG TABLET PO (08:30)
[2019-12-27] MEDS: PANTOPRAZOLE 40 MG TABLET PO (08:30)
[2019-12-27] MEDS: ENOXAPARIN 40 MG/0.4 ML SYRINGE SUB-Q ×2 (08:31→20:33)
[2019-12-27] MEDS: predniSONE 20 MG TABLET 40 MG PO (08:31)
--- NOTE | 2019-12-27 09:45 | WPDINTPN ---
Progress Note: A&P Assessment and Plan (1) Acute respiratory failure with hypoxia: Code(s): J96.01 - Acute respiratory failure with hypoxia Status: Acute Assessment and Plan: acute respiratory failure with hypoxia likely related to COVID-19 pneumonia - patient currently on high-flow therapy, 90% FiO2, 60 L flow rate. Wean FiO2 to maintain O2 sats greater than 92% - patient was also on non-rebreather mask overnight which has been discontinued this morning - cough has improved, continue Tessalon Perles (2) Pneumonia due to COVID-19 virus: Code(s): U07.1 - COVID-19; J12.89 - Other viral pneumonia Status: Acute Assessment and Plan: chest x-ray has been ordered - positive COVID-19 - continue droplet, airborne, contact isolation /precautions - inflammatory markers being monitored, increasing ferritin, LDH , D-dimer and CRP. will continue to follow - patient refused dexamethasone as she is allergic to it, had been placed on prednisone started on 12/25/2019. Patient is also on Remdesivir started on 12/25/2019 - discussed with patient and her daughter, will transfuse convalescent COVID-19 plasma (3) Elevated LFTs: Code(s): R79.89 - Other specified abnormal findings of blood chemistry Status: Acute Assessment and Plan: mildly elevated LFTs, could be related to hepatic steatosis, will continue to monitor the ALT closely as patient is on Remdesivir (4) Sepsis: Qualifiers: Sepsis type: sepsis due to unspecified organism Sepsis acute organ dysfunction status: with acute organ dysfunction Severe sepsis acute organ dysfunction type: acute respiratory failure Acute respiratory failure type: with hypoxia Severe sepsis shock status: without septic shock Qualified Code(s): A41.9 - Sepsis, unspecified organism; R65.20 - Severe sepsis without septic shock; J96.01 - Acute respiratory failure with hypoxia Code(s): A41.9 - Sepsis, unspecified organism Status: Acute Assessment and Plan: stable - patient with hypoxia, tachypnea, elevated LFTs - will continue to monitor (5) DVT prophylaxis: Code(s): Z29.9 - Encounter for prophylactic measures, unspecified Status: Acute Assessment and Plan: continue Lovenox 40 mg SQ q.12 hours (6) Hypothyroidism: Code(s): E03.9 - Hypothyroidism, unspecified Status: Acute Assessment and Plan: continue levothyroxine (7) Essential hypertension: Code(s): I10 - Essential (primary) hypertension Status: Acute Assessment and Plan: patient on lisinopril, blood pressures have been stable Additional Plan discussed with patient and her daughter Nargis, regarding patient's condition and plan of care. I did discuss with them regarding intubation if patient's condition worsens as she has increased oxygen requirements. Both of them did agree to intubation. Code status: Full code Critical care time spent: [address] Due to a high probability of clinically significant, life threatening deterioration, the patient required my highest level of preparedness to intervene emergently and I personally spent this critical care time directly and personally managing the patient. This critical care time included obtaining a history; examining the patient; pulse oximetry; ordering and review of studies; arranging urgent treatment with development of a management plan; evaluation of patient's response to treatment; frequent reassessment; and discussions with other providers. It was exclusive of separately billable procedures and treating other patients and teaching time. Please see Assessment and Plan section and the rest of the note for further information on patient assessment and treatment Subjective Date/time seen: 12/27/19 09:45 Review of Systems Review of Systems: All systems reviewed & are unremarkable except as noted in HPI and below Exam Co
--- NOTE | 2019-12-27 09:51 | WPDINTPN ---
Progress Note: A&P Assessment and Plan (1) Acute respiratory failure with hypoxia: Code(s): J96.01 - Acute respiratory failure with hypoxia Status: Acute Assessment and Plan: acute respiratory failure with hypoxia likely related to COVID-19 pneumonia - patient currently on high-flow therapy, 90% FiO2, 60 L flow rate. Wean FiO2 to maintain O2 sats greater than 92% - patient was also on non-rebreather mask overnight which has been discontinued this morning - cough has improved, continue Tessalon Perles (2) Pneumonia due to COVID-19 virus: Code(s): U07.1 - COVID-19; J12.89 - Other viral pneumonia Status: Acute Assessment and Plan: chest x-ray has been ordered - positive COVID-19 - continue droplet, airborne, contact isolation /precautions - inflammatory markers being monitored, increasing ferritin, LDH , D-dimer and CRP. will continue to follow - patient refused dexamethasone as she is allergic to it, had been placed on prednisone started on 12/25/2019. Patient is also on Remdesivir started on 12/25/2019 - 12/26/2019 1 unit convalescent plasma (3) Elevated LFTs: Code(s): R79.89 - Other specified abnormal findings of blood chemistry Status: Acute Assessment and Plan: mildly elevated LFTs, could be related to hepatic steatosis, will continue to monitor the ALT closely as patient is on Remdesivir (4) Sepsis: Qualifiers: Sepsis type: sepsis due to unspecified organism Sepsis acute organ dysfunction status: with acute organ dysfunction Severe sepsis acute organ dysfunction type: acute respiratory failure Acute respiratory failure type: with hypoxia Severe sepsis shock status: without septic shock Qualified Code(s): A41.9 - Sepsis, unspecified organism; R65.20 - Severe sepsis without septic shock; J96.01 - Acute respiratory failure with hypoxia Code(s): A41.9 - Sepsis, unspecified organism Status: Acute Assessment and Plan: stable - patient with hypoxia, tachypnea, elevated LFTs - will continue to monitor (5) DVT prophylaxis: Code(s): Z29.9 - Encounter for prophylactic measures, unspecified Status: Acute Assessment and Plan: continue Lovenox 40 mg SQ q.12 hours (6) Hypothyroidism: Code(s): E03.9 - Hypothyroidism, unspecified Status: Acute Assessment and Plan: continue levothyroxine (7) Essential hypertension: Code(s): I10 - Essential (primary) hypertension Status: Acute Assessment and Plan: patient on lisinopril, blood pressures have been stable Additional Plan discussed with the patient and her daughter, Nargis and updated her with patient's condition and plan of care, answered all questions code status: Full code Critical care time spent: 33 minutes Due to a high probability of clinically significant, life threatening deterioration, the patient required my highest level of preparedness to intervene emergently and I personally spent this critical care time directly and personally managing the patient. This critical care time included obtaining a history; examining the patient; pulse oximetry; ordering and review of studies; arranging urgent treatment with development of a management plan; evaluation of patient's response to treatment; frequent reassessment; and discussions with other providers. It was exclusive of separately billable procedures and treating other patients and teaching time. Please see Assessment and Plan section and the rest of the note for further information on patient assessment and treatment Subjective Date/time seen: 12/27/19 09:51 Interval history: Reason for consult: COVID-19 19 pneumonia, acute respiratory failure with worsening hypoxia - received convalescent plasma on 12/26/2019 12/27/2019: Patient seen examined this morning, remains on 90% FiO2, 60 L flow rate on high-flow therapy. Patient also on unknown repeat. In complains of cough but
--- NOTE | 2019-12-27 11:03 | PCDIET ---
Nutrition Follow-Up Complete: Involuntary weight loss related to decreased appetite as evidenced by patient report. Patient to consume 50% of meals/supplements or greater. Goal: Progressing towards goal. Continue goal. Pt current nutrition is Regular + Ensure compact BID Nutrition recommendation: agree Last recorded weight is 78.2 kg (up from assessment wt) Bowel Motility: BM+ Labs Reviewed:12/26 Hgb 10.7, Hct 32.3, BUN 22, Mg 2.4, Ferritin 329, Glucose 114, C Reactive 6.1 Meds Noted: Remdesivir, Plasma, Prednisone, Zofran, Synthroid, Protonix Additional Notes: Pt is on a regular diet + ensure compact BID to help meet nutrition needs which is appropriate. Average intake is 38%. Wt is up from assessed wt. A few loose stools over the last 24hrs. encouraging fluids. No IV fluids at this time. I/O +25ml. Skin intact. We will continue to monitor for adequate intake and hydration every every 3 days. Following daily in ICU.
[2019-12-27 13:25] LABS: Alanine Aminotransferase 34 U/L (4-35)
--- NOTE | 2019-12-27 16:43 | PM.IMPN ---
Progress Note: A&P Assessment and Plan (1) Acute respiratory failure with hypoxia: Code(s): J96.01 - Acute respiratory failure with hypoxia Status: Acute Assessment and Plan: The patient has been placed on Remdesivir. She refused Decadron stating she was allergic but did state she has taken prednisone and agreed to equivalent dose of prednisone daily ie 40 mg. D# 3 of each The patient was requiring 4 L nasal cannula in the ER. this has been increased. Patient has been changed to ICU status 12/25 . With oxygen requirements rising received 1 unit of convalescent plasma 12/25 Continue isolation. (2) Pneumonia due to COVID-19 virus: Code(s): U07.1 - COVID-19; J12.89 - Other viral pneumonia Status: Acute Assessment and Plan: Continue Remdesivir and prednisone D#3 Supplemental oxygen. Maintain balanced fluid status. Xopenex and Spiriva inhalers (3) Sepsis: Qualifiers: Sepsis type: sepsis due to unspecified organism Sepsis acute organ dysfunction status: with acute organ dysfunction Severe sepsis acute organ dysfunction type: acute respiratory failure Acute respiratory failure type: with hypoxia Severe sepsis shock status: without septic shock Qualified Code(s): A41.9 - Sepsis, unspecified organism; R65.20 - Severe sepsis without septic shock; J96.01 - Acute respiratory failure with hypoxia Code(s): A41.9 - Sepsis, unspecified organism Status: Acute Assessment and Plan: due to COVID. based on criteria of fever, tachypnea, hypoxia. The patient's transaminases are elevated but she states that she always has some mildly elevated liver enzymes. continue to follow with the [facility] rx (4) Essential hypertension: Code(s): I10 - Essential (primary) hypertension Status: Acute Assessment and Plan: bp good continue DAYNA (5) DVT prophylaxis: Code(s): Z29.9 - Encounter for prophylactic measures, unspecified Status: Acute Assessment and Plan: lovenox 40 bid Subjective Date/time seen: 12/27/19 16:43 Interval history: date of visit 12/26. 79-year-old female with known COVID presented with fever malaise increasing shortness of breath. O2 sats at home were low and in ER here she is found to be hypoxic and recovered with high-flow oxygen. Within 10 day window so started on remdesivir and steroids. feels poorly but requiring less oxygen this am Exam Narrative: Exam Narrative: blood pressure 108/86 pulse is 76 respirations 26 per minute satting 95 % on nasal cannula high-flow , afebrile now pupil equal reactive to light sclera anicteric neck is supple lungs very faint crackle right posterior base CV regular rate rhythm no murmur abdomen is soft nontender no masses extremities without edema distal pulses 1+ neuro left pleasant cooperative no focal deficits, resting quietly Objective Data Vital Signs Vital Signs: Vital Signs - 24 hr 12/26/19 16:50 12/26/19 17:10 12/26/19 18:00 Temperature 36.2 C L 36.2 C L Pulse Rate 80 82 85 Respiratory Rate 22 H 22 H Blood Pressure 129/64 143/63 H Pulse Oximetry 92 91 12/26/19 18:14 12/26/19 20:00 12/26/19 20:40 Temperature 36.2 C L 36.5 C Pulse Rate 77 78 83 Respiratory Rate 16 20 22 H Blood Pressure 113/47 L 128/57 L Pulse Oximetry 85 L 95 12/26/19 20:41 12/26/19 22:00 12/27/19 00:00 Temperature 37.2 C Pulse Rate 91 75 73 Respiratory Rate 22 H 20 Blood Pressure 119/54 L Pulse Oximetry 98 91 12/27/19 02:00 12/27/19 02:32 12/27/19 04:00 Temperature 36.6 C Pulse Rate 83 77 83 Respiratory Rate 24 H 18 Blood Pressure 134/58 L Pulse Oximetry 96 12/27/19 06:00 12/27/19 08:00 12/27/19 08:55 Temperature 36.2 C L Pulse Rate 85 75 Respiratory Rate 31 H Blood Pressure 129/51 L Pulse Oximetry 90 90 12/27/19 12:00 12/27/19 14:00 12/27/19 16:00 Temperature 36.4 C L Pulse Rate 77 89 82 Res
[2019-12-27] MEDS: REMDESIVIR 100 MG/NS 250 ML 100 MG/250 ML BAG 250 MG IVPB (22:19)
[2019-12-28] VITALS (16 sets, daily range): BP systolic 106–150; BP diastolic 47–92; PULSE 65–832; RESP 18–95; TEMP 36.6–36.7; O2SAT 87–95
[2019-12-28] MEDS: LEVOTHYROXINE SODIUM 50 MCG TABLET PO (04:55)
[2019-12-28 06:05] LABS: Alanine Aminotransferase 33 U/L (4-35); Albumin Level 3.1 g/dL (3.5-5.1); Alkaline Phosphatase 43 U/L (38-126); Anion Gap 2 mmol/L (8-16); Aspartate Amino Transferase 37 U/L (14-36); Bilirubin,Total 0.6 mg/dL (0.2-1.3); Blood Urea Nitrogen 21 mg/dL (7-17); Calcium 8.7 mg/dL (8.4-10.2); Carbon Dioxide 37 mmol/L (22-30); Chloride 99 mmol/L (98-107); Estimated CRCL calculation 61 ml/min; Estimated Glomerular Filt Rate > 60; Glucose 91 mg/dL (65-105); Magnesium 2.4 mg/dL (1.6-2.3); Phosphorus 3.9 mg/dL (2.5-4.5); Potassium 3.6 mmol/L (3.4-5.0); Sodium 138 mmol/L (137-145)
[2019-12-28] MEDS: BENZONATATE 100 MG CAPSULE 200 MG PO ×3 (08:22→18:00)
[2019-12-28] MEDS: predniSONE 20 MG TABLET 40 MG PO (08:22)
[2019-12-28] MEDS: ENOXAPARIN 40 MG/0.4 ML SYRINGE SUB-Q ×2 (08:22→20:30)
[2019-12-28] MEDS: lisinopriL 10 MG TABLET PO (08:22)
[2019-12-28] MEDS: PANTOPRAZOLE 40 MG TABLET PO (08:22)
[2019-12-28] MEDS: LEVALBUTEROL HFA (*SP) 15 GM INHALER 4 PUFF INHALATION ×3 (08:44→19:37)
--- NOTE | 2019-12-28 12:41 | WPDINTPN ---
Progress Note: A&P Assessment and Plan (1) Acute respiratory failure with hypoxia: Code(s): J96.01 - Acute respiratory failure with hypoxia Status: Acute Assessment and Plan: acute respiratory failure with hypoxia likely related to COVID-19 pneumonia - patient currently on high-flow therapy, 84%% FiO2, 60 L flow rate. Wean FiO2 to maintain O2 sats greater than 92% - patient not requiring non-rebreather mask, will use p.r.n. if desaturates - cough has improved, continue Tessalon Perles (2) Pneumonia due to COVID-19 virus: Code(s): U07.1 - COVID-19; J12.89 - Other viral pneumonia Status: Acute Assessment and Plan: chest x-ray has been ordered - positive COVID-19 - continue droplet, airborne, contact isolation /precautions - inflammatory markers being monitored, increasing ferritin, LDH , D-dimer and CRP. will continue to follow - patient refused dexamethasone as she is allergic to it, had been placed on prednisone started on 12/25/2019. - Patient is also on Remdesivir started on 12/25/2019 - 12/26/2019 1 unit convalescent plasma (3) Elevated LFTs: Code(s): R79.89 - Other specified abnormal findings of blood chemistry Status: Acute Assessment and Plan: LFTs have normalized -, could be related to hepatic steatosis, will continue to monitor the ALT closely as patient is on Remdesivir (4) Sepsis: Qualifiers: Sepsis type: sepsis due to unspecified organism Sepsis acute organ dysfunction status: with acute organ dysfunction Severe sepsis acute organ dysfunction type: acute respiratory failure Acute respiratory failure type: with hypoxia Severe sepsis shock status: without septic shock Qualified Code(s): A41.9 - Sepsis, unspecified organism; R65.20 - Severe sepsis without septic shock; J96.01 - Acute respiratory failure with hypoxia Code(s): A41.9 - Sepsis, unspecified organism Status: Acute Assessment and Plan: RESOLVED - patient with hypoxia, tachypnea, elevated LFTs - will continue to monitor (5) DVT prophylaxis: Code(s): Z29.9 - Encounter for prophylactic measures, unspecified Status: Acute Assessment and Plan: continue Lovenox 40 mg SQ q.12 hours (6) Hypothyroidism: Code(s): E03.9 - Hypothyroidism, unspecified Status: Acute Assessment and Plan: continue levothyroxine (7) Essential hypertension: Code(s): I10 - Essential (primary) hypertension Status: Acute Assessment and Plan: patient on lisinopril, blood pressures have been stable Additional Plan discussed with the patient and her daughter, Nargis and updated her with patient's condition and plan of care, answered all questions code status: Full code Critical care time spent: 32 minutes Due to a high probability of clinically significant, life threatening deterioration, the patient required my highest level of preparedness to intervene emergently and I personally spent this critical care time directly and personally managing the patient. This critical care time included obtaining a history; examining the patient; pulse oximetry; ordering and review of studies; arranging urgent treatment with development of a management plan; evaluation of patient's response to treatment; frequent reassessment; and discussions with other providers. It was exclusive of separately billable procedures and treating other patients and teaching time. Please see Assessment and Plan section and the rest of the note for further information on patient assessment and treatment Subjective Date/time seen: 12/28/19 12:41 Interval history: Reason for consult: COVID-19 19 pneumonia, acute respiratory failure with worsening hypoxia - received convalescent plasma on 12/26/2019 12/28/2019: Patient seen and examined this morning. Remains on 84% FiO2 and 60 L flow rate on high-flow therapy. Patient states she feels better this morning, does have bouts
--- NOTE | 2019-12-28 16:02 | PM.IMPN ---
Progress Note: A&P Assessment and Plan (1) Acute respiratory failure with hypoxia: Code(s): J96.01 - Acute respiratory failure with hypoxia Status: Acute Assessment and Plan: The patient has been placed on Remdesivir. She refused Decadron stating she was allergic but did state she has taken prednisone and agreed to equivalent dose of prednisone daily ie 40 mg. D# 5 of remdesivir(started 12/23 in ER) and D# 4 prednisone The patient was requiring 4 L nasal cannula in the ER. this has been increased. Patient changed to ICU status 12/25 . With oxygen requirements rising received 1 unit of convalescent plasma 12/25 Continue isolation. (2) Pneumonia due to COVID-19 virus: Code(s): U07.1 - COVID-19; J12.89 - Other viral pneumonia Status: Acute Assessment and Plan: Continue Remdesivir D#5 and prednisone D#4 Supplemental oxygen. Maintain balanced fluid status. Xopenex and Spiriva inhalers (3) Sepsis: Qualifiers: Sepsis type: sepsis due to unspecified organism Sepsis acute organ dysfunction status: with acute organ dysfunction Severe sepsis acute organ dysfunction type: acute respiratory failure Acute respiratory failure type: with hypoxia Severe sepsis shock status: without septic shock Qualified Code(s): A41.9 - Sepsis, unspecified organism; R65.20 - Severe sepsis without septic shock; J96.01 - Acute respiratory failure with hypoxia Code(s): A41.9 - Sepsis, unspecified organism Status: Acute Assessment and Plan: due to COVID. based on criteria of fever, tachypnea, hypoxia. The patient's transaminases are elevated but she states that she always has some mildly elevated liver enzymes. continue to follow with the [facility] rx (4) Essential hypertension: Code(s): I10 - Essential (primary) hypertension Status: Acute Assessment and Plan: bp good continue DAYNA (5) DVT prophylaxis: Code(s): Z29.9 - Encounter for prophylactic measures, unspecified Status: Acute Assessment and Plan: lovenox 40 bid Subjective Date/time seen: 12/28/19 16:03 Interval history: date of visit 12/27. 79-year-old female with known COVID presented with fever malaise increasing shortness of breath. O2 sats at home were low and in ER here she is found to be hypoxic and recovered with high-flow oxygen. Within 10 day window so started on remdesivir and steroids. feels better and requiring less oxygen this am Exam Narrative: Exam Narrative: blood pressure 122/56 pulse is 76 respirations 22 per minute satting 95 % on nasal cannula high-flow(lesser FI02) , afebrile now pupil equal reactive to light sclera anicteric neck is supple lungs very faint crackle right posterior base CV regular rate rhythm no murmur abdomen is soft nontender no masses extremities without edema distal pulses 1+ neuro left pleasant cooperative no focal deficits, resting quietly Objective Data Vital Signs Vital Signs: Vital Signs - 24 hr 12/27/19 18:00 12/27/19 19:50 12/27/19 20:00 Temperature 36.6 C Pulse Rate 83 86 93 Respiratory Rate 21 H 20 Blood Pressure 126/92 H Pulse Oximetry 89 L 12/27/19 21:08 12/27/19 22:00 12/28/19 00:00 Temperature Pulse Rate 89 80 84 Respiratory Rate 24 H 20 Blood Pressure 150/71 H Pulse Oximetry 95 93 12/28/19 02:00 12/28/19 02:31 12/28/19 04:00 Temperature Pulse Rate 65 65 73 Respiratory Rate 23 H 24 H Blood Pressure 128/60 143/66 H Pulse Oximetry 91 92 12/28/19 06:00 12/28/19 08:00 12/28/19 10:00 Temperature 36.6 C Pulse Rate 79 74 94 Respiratory Rate 26 H 24 H 22 H Blood Pressure 133/57 L 129/50 L 125/47 L Pulse Oximetry 88 L 92 91 12/28/19 12:00 12/28/19 14:00 Temperature Pulse Rate 77 90 Respiratory Rate 26 H 18 Blood Pressure 122/56 L 117/52 L Pulse Oximetry 95 94 Intake/Output Intake/Output: Intake & Output 12/25/19 12/26/19
[2019-12-28] MEDS: REMDESIVIR 100 MG/NS 250 ML 100 MG/250 ML BAG 250 MG IVPB (22:23)
[2019-12-29] VITALS (16 sets, daily range): BP systolic 92–182; BP diastolic 54–84; PULSE 66–91; RESP 16–27; TEMP 36.2–36.8; O2SAT 87–98
[2019-12-29] MEDS: LEVALBUTEROL HFA (*SP) 15 GM INHALER 4 PUFF INHALATION ×4 (02:25→20:45)
[2019-12-29] MEDS: LEVOTHYROXINE SODIUM 50 MCG TABLET PO (06:18)
[2019-12-29 07:00] LABS: Hematocrit 32.8 % (37.0-47.0); Hemoglobin 10.7 g/dL (12.0-15.0); Mean Corpuscular HGB Conc 32.6 g/dl (32-36); Mean Corpuscular Hemoglobin 36.6 pg (26-34); Mean Corpuscular Volume 112.3 fl (80-100); Mean Platelet Volume 10.6 fl (7.4-10.4); Platelet Count Result 410 k/mm3 (150-375); Red Blood Count 2.92 M/mm3 (4.2-5.4); Red Cell Distribution Width 13.3 % (11.5-14.5); White Blood Count 10.4 K/mm3 (4.5-10.0)
[2019-12-29 07:17] LABS: Anion Gap -0.00001 mmol/L (8-16); Blood Urea Nitrogen 15 mg/dL (7-17); CRP 5.6 mg/dL (<1.0); Calcium 8.5 mg/dL (8.4-10.2); Carbon Dioxide > 40 mmol/L (22-30); Chloride 98 mmol/L (98-107); D Dimer 1.41 ug/mL (<0.48); Estimated CRCL calculation 53 ml/min; Estimated Glomerular Filt Rate > 60; Glucose 99 mg/dL (65-105); Lactate Dehydrogenase 952 U/L (313-618); Magnesium 2.3 mg/dL (1.6-2.3); Phosphorus 3.4 mg/dL (2.5-4.5); Potassium 3.4 mmol/L (3.4-5.0); Sodium 138 mmol/L (137-145)
[2019-12-29] MEDS: lisinopriL 10 MG TABLET PO (08:23)
[2019-12-29] MEDS: predniSONE 20 MG TABLET 40 MG PO (08:23)
[2019-12-29] MEDS: BENZONATATE 100 MG CAPSULE 200 MG PO ×3 (08:24→17:16)
[2019-12-29] MEDS: PANTOPRAZOLE 40 MG TABLET PO (08:24)
[2019-12-29] MEDS: ENOXAPARIN 40 MG/0.4 ML SYRINGE SUB-Q ×2 (08:24→21:02)
[2019-12-29] MEDS: POTASSIUM CHLORIDE 20 MEQ TABLET 40 MEQ PO (08:50)
[2019-12-29] MEDS: amLODIPine BESYLATE 5 MG TABLET PO (10:56)
[2019-12-29] MEDS: SPIRONOLACTONE 25 MG TABLET PO (10:57)
--- NOTE | 2019-12-29 11:33 | WPDINTPN ---
Progress Note: A&P Assessment and Plan (1) Acute respiratory failure with hypoxia: Code(s): J96.01 - Acute respiratory failure with hypoxia Status: Acute Assessment and Plan: acute respiratory failure with hypoxia likely related to COVID-19 pneumonia - patient currently on high-flow therapy, 70%%% FiO2, 50 L flow rate. Wean FiO2 to maintain O2 sats greater than 92% - patient not requiring non-rebreather mask, will use p.r.n. if desaturates - cough has improved, continue Tessalon Perles (2) Pneumonia due to COVID-19 virus: Code(s): U07.1 - COVID-19; J12.89 - Other viral pneumonia Status: Acute Assessment and Plan: chest x-ray has been ordered - positive COVID-19 - continue droplet, airborne, contact isolation /precautions - inflammatory markers being monitored, increasing ferritin, LDH , D-dimer and CRP. will continue to follow - patient refused dexamethasone as she is allergic to it, had been placed on prednisone started on 12/25/2019. - status post Remdesivir course - 12/26/2019 1 unit convalescent plasma (3) Elevated LFTs: Code(s): R79.89 - Other specified abnormal findings of blood chemistry Status: Acute Assessment and Plan: LFTs have normalized -, could be related to hepatic steatosis, will continue to monitor the ALT closely as patient is on Remdesivir (4) Sepsis: Qualifiers: Sepsis type: sepsis due to unspecified organism Sepsis acute organ dysfunction status: with acute organ dysfunction Severe sepsis acute organ dysfunction type: acute respiratory failure Acute respiratory failure type: with hypoxia Severe sepsis shock status: without septic shock Qualified Code(s): A41.9 - Sepsis, unspecified organism; R65.20 - Severe sepsis without septic shock; J96.01 - Acute respiratory failure with hypoxia Code(s): A41.9 - Sepsis, unspecified organism Status: Acute Assessment and Plan: RESOLVED - patient with hypoxia, tachypnea, elevated LFTs - will continue to monitor (5) DVT prophylaxis: Code(s): Z29.9 - Encounter for prophylactic measures, unspecified Status: Acute Assessment and Plan: continue Lovenox 40 mg SQ q.12 hours (6) Hypothyroidism: Code(s): E03.9 - Hypothyroidism, unspecified Status: Acute Assessment and Plan: continue levothyroxine (7) Essential hypertension: Code(s): I10 - Essential (primary) hypertension Status: Acute Assessment and Plan: patient with elevated blood pressures, currently on lisinopril, will restart spironolactone which is a home medication and had amlodipine. - P.r.n. hydralazine Additional Plan discussed with the patient and her daughter, Maddy and updated her with patient's condition and plan of care, answered all questions code status: Full code Critical care time spent: 33 minutes Due to a high probability of clinically significant, life threatening deterioration, the patient required my highest level of preparedness to intervene emergently and I personally spent this critical care time directly and personally managing the patient. This critical care time included obtaining a history; examining the patient; pulse oximetry; ordering and review of studies; arranging urgent treatment with development of a management plan; evaluation of patient's response to treatment; frequent reassessment; and discussions with other providers. It was exclusive of separately billable procedures and treating other patients and teaching time. Please see Assessment and Plan section and the rest of the note for further information on patient assessment and treatment Subjective Date/time seen: 12/29/19 11:33 Interval history: Reason for consult: COVID-19 19 pneumonia, acute respiratory failure with worsening hypoxia - received convalescent plasma on 12/26/2019 12/29/2019. Patient is on 70% FiO2, 50 L flow rate on high-flow therapy. Patient feels
--- NOTE | 2019-12-29 17:32 | PM.IMPN ---
Progress Note: A&P Assessment and Plan (1) Acute respiratory failure with hypoxia: Code(s): J96.01 - Acute respiratory failure with hypoxia Status: Acute Assessment and Plan: The patient has been placed on Remdesivir. She refused Decadron stating she was allergic but did state she has taken prednisone and agreed to equivalent dose of prednisone daily ie 40 mg. D# 5 of remdesivir completed 12/27 (started 12/23 in ER) and D# 5 prednisone today The patient was requiring 4 L NC initially in ER but has titrated up and now tapering down Patient changed to ICU status 12/25 . With oxygen requirements rising received 1 unit of convalescent plasma 12/25 Continue isolation. (2) Pneumonia due to COVID-19 virus: Code(s): U07.1 - COVID-19; J12.89 - Other viral pneumonia Status: Acute Assessment and Plan: Continue Remdesivir D#5 12/27 and prednisone D#5 today Supplemental oxygen. Maintain balanced fluid status. Xopenex and Spiriva inhalers (3) Sepsis: Qualifiers: Sepsis type: sepsis due to unspecified organism Sepsis acute organ dysfunction status: with acute organ dysfunction Severe sepsis acute organ dysfunction type: acute respiratory failure Acute respiratory failure type: with hypoxia Severe sepsis shock status: without septic shock Qualified Code(s): A41.9 - Sepsis, unspecified organism; R65.20 - Severe sepsis without septic shock; J96.01 - Acute respiratory failure with hypoxia Code(s): A41.9 - Sepsis, unspecified organism Status: Acute Assessment and Plan: due to COVID. based on criteria of fever, tachypnea, hypoxia. The patient's transaminases are elevated but she states that she always has some mildly elevated liver enzymes. continue to follow with the remdesivie rx (4) Essential hypertension: Code(s): I10 - Essential (primary) hypertension Status: Acute Assessment and Plan: bp good to slightly low continue DAYNA (5) DVT prophylaxis: Code(s): Z29.9 - Encounter for prophylactic measures, unspecified Status: Acute Assessment and Plan: lovenox 40 bid Subjective Date/time seen: 12/29/19 17:32 Interval history: date of visit 12/28 79-year-old female with known COVID presented with fever malaise increasing shortness of breath. O2 sats at home were low and in ER here she is found to be hypoxic and recovered with high-flow oxygen. Within 10 day window so started on remdesivir and steroids. feels better and requiring less oxygen this am Exam Narrative: Exam Narrative: blood pressure 98/70 pulse is 70 respirations 22 per minute satting 90 % on nasal cannula high-flow(lesser FI02, 65%) , afebrile now s sitting up in chair pupil equal reactive to light sclera anicteric neck is supple lungs very faint crackle right posterior base as before CV regular rate rhythm no murmur abdomen is soft nontender no masses extremities without edema distal pulses 1+ neuro left pleasant cooperative no focal deficits, resting quietly Objective Data Vital Signs Vital Signs: Vital Signs - 24 hr 12/28/19 17:57 12/28/19 18:00 12/28/19 19:37 Temperature Pulse Rate 85 82 89 Respiratory Rate 27 H 24 H Blood Pressure 106/92 H Pulse Oximetry 93 12/28/19 19:38 12/28/19 20:00 12/28/19 22:00 Temperature 36.7 C Pulse Rate 89 89 82 Respiratory Rate 24 H 24 H 23 H Blood Pressure 134/57 L 133/52 L Pulse Oximetry 92 91 87 L 12/29/19 00:00 12/29/19 02:00 12/29/19 02:25 Temperature Pulse Rate 68 66 79 Respiratory Rate 23 H 21 H 18 Blood Pressure 132/56 L 125/54 L Pulse Oximetry 92 92 12/29/19 04:00 12/29/19 06:00 12/29/19 08:00 Temperature 36.7 C 36.7 C Pulse Rate 74 78 85 Respiratory Rate 20 25 H 20 Blood Pressure 139/65 141/66 H 170/84 H Pulse Oximetry 93 93 98 12/29/19 08:30 12/29/19 10:00 12/29/19 12:00 Temperature 36.8 C Pulse Rate 86 90 76 Respiratory Rate 20
[2019-12-30] VITALS (18 sets, daily range): BP systolic 109–157; BP diastolic 51–105; PULSE 8–95; RESP 3–33; TEMP 36.2–36.8; O2SAT 89–97
[2019-12-30] MEDS: LEVALBUTEROL HFA (*SP) 15 GM INHALER 4 PUFF INHALATION ×4 (02:39→21:03)
[2019-12-30 03:50] LABS: Hematocrit 30.9 % (37.0-47.0); Mean Corpuscular HGB Conc 32.4 g/dl (32-36); Mean Corpuscular Hemoglobin 36.2 pg (26-34); Mean Platelet Volume 10.6 fl (7.4-10.4); Platelet Count Result 395 k/mm3 (150-375); Red Blood Count 2.76 M/mm3 (4.2-5.4); Red Cell Distribution Width 13.2 % (11.5-14.5)
[2019-12-30 04:04] LABS: Anion Gap 4 mmol/L (8-16); Blood Urea Nitrogen 13 mg/dL (7-17); Calcium 8.5 mg/dL (8.4-10.2); Carbon Dioxide 37 mmol/L (22-30); Chloride 100 mmol/L (98-107); Estimated CRCL calculation 61 ml/min; Estimated Glomerular Filt Rate > 60; Glucose 89 mg/dL (65-105); Magnesium 2.3 mg/dL (1.6-2.3); Phosphorus 3.4 mg/dL (2.5-4.5); Potassium 3.5 mmol/L (3.4-5.0); Sodium 141 mmol/L (137-145)
[2019-12-30] MEDS: LEVOTHYROXINE SODIUM 50 MCG TABLET PO (05:52)
[2019-12-30] MEDS: lisinopriL 10 MG TABLET PO (09:05)
[2019-12-30] MEDS: ENOXAPARIN 40 MG/0.4 ML SYRINGE SUB-Q ×2 (09:05→20:37)
[2019-12-30] MEDS: BENZONATATE 100 MG CAPSULE 200 MG PO ×3 (09:05→17:46)
[2019-12-30] MEDS: PANTOPRAZOLE 40 MG TABLET PO (09:06)
[2019-12-30] MEDS: predniSONE 20 MG TABLET 40 MG PO (09:06)
--- NOTE | 2019-12-30 11:23 | PCDIET ---
Nutrition Follow-Up Complete: Nutrition Diagnosis: Involuntary weight loss related to decreased appetite as evidenced by patient report. Nutrition Goal: Patient to consume 50% of meals/supplements or greater. Goal met. Patient now consuming 75-100% of most meals on regular diet. Ensure Compact BID continues. Last recorded weight is 81.2 kg which is up from last review. Bowel Motility: Last documented BM on 12/27/19. Labs Reviewed: Hgb (10.0), Hct (30.9), Cr (0.6) Meds Noted: Xopenex, Synthroid, Prinivil, Protonix, Prednisone Additional Notes: No documented skin breakdown. Will continue to monitor with same goals. Nutrition Monitoring and Evaluation: Follow up every 5 days.
[2019-12-30] MEDS: LIDOCAINE HCL 1% PF INJ 5 ML VIAL INFILTRATE (12:20)
--- NOTE | 2019-12-30 13:14 | WPDINTPN ---
Progress Note: A&P Assessment and Plan (1) Acute respiratory failure with hypoxia: Code(s): J96.01 - Acute respiratory failure with hypoxia Status: Acute Assessment and Plan: acute respiratory failure with hypoxia likely related to COVID-19 pneumonia - patient currently on high-flow therapy, 65% FiO2, 50 L flow rate. Wean FiO2 to maintain O2 sats greater than 92% - patient not requiring non-rebreather mask, will use p.r.n. if desaturates - cough has improved, continue Tessalon Perles (2) Pneumonia due to COVID-19 virus: Code(s): U07.1 - COVID-19; J12.89 - Other viral pneumonia Status: Acute Assessment and Plan: chest x-ray has been ordered - positive COVID-19 - continue droplet, airborne, contact isolation /precautions - inflammatory markers being monitored, increasing ferritin, LDH , D-dimer and CRP. will continue to follow - patient refused dexamethasone as she is allergic to it, had been placed on prednisone started on 12/25/2019. - status post Remdesivir course - 12/26/2019 1 unit convalescent plasma (3) Elevated LFTs: Code(s): R79.89 - Other specified abnormal findings of blood chemistry Status: Acute Assessment and Plan: LFTs have normalized -, could be related to hepatic steatosis, will continue to monitor the ALT closely as patient is on Remdesivir (4) Sepsis: Qualifiers: Sepsis type: sepsis due to unspecified organism Sepsis acute organ dysfunction status: with acute organ dysfunction Severe sepsis acute organ dysfunction type: acute respiratory failure Acute respiratory failure type: with hypoxia Severe sepsis shock status: without septic shock Qualified Code(s): A41.9 - Sepsis, unspecified organism; R65.20 - Severe sepsis without septic shock; J96.01 - Acute respiratory failure with hypoxia Code(s): A41.9 - Sepsis, unspecified organism Status: Acute Assessment and Plan: RESOLVED - patient with hypoxia, tachypnea, elevated LFTs - will continue to monitor (5) DVT prophylaxis: Code(s): Z29.9 - Encounter for prophylactic measures, unspecified Status: Acute Assessment and Plan: continue Lovenox 40 mg SQ q.12 hours (6) Hypothyroidism: Code(s): E03.9 - Hypothyroidism, unspecified Status: Acute Assessment and Plan: continue levothyroxine (7) Essential hypertension: Code(s): I10 - Essential (primary) hypertension Status: Acute Assessment and Plan: patient with elevated blood pressures, currently on lisinopril, will restart spironolactone which is a home medication and had amlodipine. - P.r.n. hydralazine Additional Plan discussed with the patient and her daughter, Maddy and updated her with patient's condition and plan of care, answered all questions code status: Full code Critical care time spent: 31 minutes Due to a high probability of clinically significant, life threatening deterioration, the patient required my highest level of preparedness to intervene emergently and I personally spent this critical care time directly and personally managing the patient. This critical care time included obtaining a history; examining the patient; pulse oximetry; ordering and review of studies; arranging urgent treatment with development of a management plan; evaluation of patient's response to treatment; frequent reassessment; and discussions with other providers. It was exclusive of separately billable procedures and treating other patients and teaching time. Please see Assessment and Plan section and the rest of the note for further information on patient assessment and treatment Subjective Date/time seen: 12/30/19 13:14 Interval history: Reason for consult: COVID-19 19 pneumonia, acute respiratory failure with worsening hypoxia - received convalescent plasma on 12/26/2019 12/30/2019: Patient seen and examined, remains a 65% FiO2, 50 L flow therapy. Patient sit
[2019-12-30] MEDS: CENTRAL LINE FLUSH 10 ML IV PUSH ×2 (15:04→20:37)
[2019-12-30] MEDS: ACETAMINOPHEN 325 MG TABLET 650 MG PO (20:36)
[2019-12-31] VITALS (16 sets, daily range): BP systolic 111–165; BP diastolic 47–101; PULSE 69–95; RESP 16–26; TEMP 36.4; O2SAT 90–99
[2019-12-31 05:24] LABS: Hematocrit 30.3 % (37.0-47.0); Mean Corpuscular Hemoglobin 36.5 pg (26-34); Mean Corpuscular Volume 110.6 fl (80-100); Mean Platelet Volume 10.6 fl (7.4-10.4); Platelet Count Result 434 k/mm3 (150-375); Red Blood Count 2.74 M/mm3 (4.2-5.4); Red Cell Distribution Width 13.2 % (11.5-14.5); White Blood Count 6.2 K/mm3 (4.5-10.0)
[2019-12-31 05:30] LABS: D Dimer 1.72 ug/mL (<0.48)
[2019-12-31 05:36] LABS: Lactate Dehydrogenase 889 U/L (313-618)
[2019-12-31 05:43] LABS: Anion Gap 5 mmol/L (8-16); Blood Urea Nitrogen 12 mg/dL (7-17); Calcium 8.7 mg/dL (8.4-10.2); Carbon Dioxide 36 mmol/L (22-30); Chloride 101 mmol/L (98-107); Estimated CRCL calculation 62 ml/min; Estimated Glomerular Filt Rate > 60; Glucose 85 mg/dL (65-105); Magnesium 2.2 mg/dL (1.6-2.3); Phosphorus 4.1 mg/dL (2.5-4.5); Potassium 3.6 mmol/L (3.4-5.0); Sodium 142 mmol/L (137-145)
[2019-12-31] MEDS: CENTRAL LINE FLUSH 10 ML IV PUSH ×3 (06:18→20:43)
[2019-12-31] MEDS: LEVOTHYROXINE SODIUM 50 MCG TABLET PO (06:18)
[2019-12-31] MEDS: lisinopriL 10 MG TABLET PO (08:39)
[2019-12-31] MEDS: predniSONE 20 MG TABLET 40 MG PO (08:39)
[2019-12-31] MEDS: BENZONATATE 100 MG CAPSULE 200 MG PO ×3 (08:39→16:32)
[2019-12-31] MEDS: PANTOPRAZOLE 40 MG TABLET PO (08:40)
[2019-12-31] MEDS: amLODIPine BESYLATE 5 MG TABLET PO (08:40)
[2019-12-31] MEDS: SPIRONOLACTONE 25 MG TABLET PO (08:40)
[2019-12-31] MEDS: ENOXAPARIN 40 MG/0.4 ML SYRINGE SUB-Q ×2 (08:40→20:43)
[2019-12-31] MEDS: LEVALBUTEROL HFA (*SP) 15 GM INHALER 4 PUFF INHALATION ×4 (09:00→22:10)
[2019-12-31] MEDS: DOCUSATE SODIUM 100 MG CAPSULE 300 MG PO (10:22)
--- NOTE | 2019-12-31 11:12 | PCDIET ---
ICU Rounding Note: Patient eating 100% of meals on regular diet. RN reports patient has not been taking Ensure Compact routinely. Recommend discontinuing, as intakes are currently adequate. Last recorded weight is 81.7kg which is stable. Bowel Motility: No recent BM reported - Colace has been added. Labs Reviewed: Hgb (10.0), Hct (30.3), Cr (0.6) Meds Noted: Aldactone, Prednisone, Protonix, Prinivil, Synthroid, Xopenex, Colace, Norvasc Additional Notes: No documented skin breakdown. Following daily in ICU rounds. Assessing/reassessing every 5 days.
--- NOTE | 2019-12-31 13:32 | WPDINTPN ---
Progress Note: A&P Assessment and Plan (1) Acute respiratory failure with hypoxia: Code(s): J96.01 - Acute respiratory failure with hypoxia Status: Acute Assessment and Plan: acute respiratory failure with hypoxia likely related to COVID-19 pneumonia - patient currently on high-flow therapy, 55% FiO2, 50 L flow rate. Wean FiO2 to maintain O2 sats greater than 92% - patient not requiring non-rebreather mask, will use p.r.n. if desaturates - cough has improved, continue Tessalon Perles (2) Pneumonia due to COVID-19 virus: Code(s): U07.1 - COVID-19; J12.89 - Other viral pneumonia Status: Acute Assessment and Plan: chest x-ray has been ordered - positive COVID-19 - continue droplet, airborne, contact isolation /precautions - inflammatory markers being monitored, LDH, ferritin, D-dimer, CRP all trending down - patient refused dexamethasone as she is allergic to it, had been placed on prednisone started on 12/25/2019. - status post Remdesivir course - 12/26/2019 1 unit convalescent plasma (3) Elevated LFTs: Code(s): R79.89 - Other specified abnormal findings of blood chemistry Status: Acute Assessment and Plan: LFTs have normalized -, could be related to hepatic steatosis, will continue to monitor the ALT closely as patient is on Remdesivir (4) Sepsis: Qualifiers: Sepsis type: sepsis due to unspecified organism Sepsis acute organ dysfunction status: with acute organ dysfunction Severe sepsis acute organ dysfunction type: acute respiratory failure Acute respiratory failure type: with hypoxia Severe sepsis shock status: without septic shock Qualified Code(s): A41.9 - Sepsis, unspecified organism; R65.20 - Severe sepsis without septic shock; J96.01 - Acute respiratory failure with hypoxia Code(s): A41.9 - Sepsis, unspecified organism Status: Acute Assessment and Plan: RESOLVED - patient with hypoxia, tachypnea, elevated LFTs - will continue to monitor (5) DVT prophylaxis: Code(s): Z29.9 - Encounter for prophylactic measures, unspecified Status: Acute Assessment and Plan: continue Lovenox 40 mg SQ q.12 hours (6) Hypothyroidism: Code(s): E03.9 - Hypothyroidism, unspecified Status: Acute Assessment and Plan: continue levothyroxine (7) Essential hypertension: Code(s): I10 - Essential (primary) hypertension Status: Acute Assessment and Plan: patient with elevated blood pressures, currently on lisinopril, will restart spironolactone which is a home medication and had amlodipine. - P.r.n. hydralazine Additional Plan discussed with the patient and her daughter, Maddy and updated her with patient's condition and plan of care, answered all questions code status: Full code Critical care time spent: 32 minutes Due to a high probability of clinically significant, life threatening deterioration, the patient required my highest level of preparedness to intervene emergently and I personally spent this critical care time directly and personally managing the patient. This critical care time included obtaining a history; examining the patient; pulse oximetry; ordering and review of studies; arranging urgent treatment with development of a management plan; evaluation of patient's response to treatment; frequent reassessment; and discussions with other providers. It was exclusive of separately billable procedures and treating other patients and teaching time. Please see Assessment and Plan section and the rest of the note for further information on patient assessment and treatment Subjective Date/time seen: 12/31/19 13:32 Interval history: Reason for consult: COVID-19 19 pneumonia, acute respiratory failure with worsening hypoxia - received convalescent plasma on 12/26/2019 12/31/2019: Patient remains on high-flow oxygen therapy via [employer] 55% FiO2 and 50 L flow rate. Patient sitting
[2020-01-01] VITALS (17 sets, daily range): BP systolic 106–142; BP diastolic 47–84; PULSE 70–106; RESP 13–31; TEMP 36.2–36.8; O2SAT 92–98
[2020-01-01] MEDS: LEVALBUTEROL HFA (*SP) 15 GM INHALER 4 PUFF INHALATION ×4 (02:07→22:23)
[2020-01-01] MEDS: CENTRAL LINE FLUSH 10 ML IV PUSH ×3 (05:19→20:37)
[2020-01-01] MEDS: LEVOTHYROXINE SODIUM 50 MCG TABLET PO (05:19)
[2020-01-01 05:34] LABS: Hematocrit 29.5 % (37.0-47.0); Hemoglobin 9.6 g/dL (12.0-15.0); Mean Corpuscular HGB Conc 32.5 g/dl (32-36); Mean Corpuscular Hemoglobin 35.7 pg (26-34); Mean Corpuscular Volume 109.7 fl (80-100); Mean Platelet Volume 10.2 fl (7.4-10.4); Platelet Count Result 447 k/mm3 (150-375); Red Blood Count 2.69 M/mm3 (4.2-5.4); Red Cell Distribution Width 13.1 % (11.5-14.5); White Blood Count 6.4 K/mm3 (4.5-10.0)
[2020-01-01 05:54] LABS: Anion Gap 1 mmol/L (8-16); Blood Urea Nitrogen 15 mg/dL (7-17); Calcium 8.5 mg/dL (8.4-10.2); Carbon Dioxide 38 mmol/L (22-30); Chloride 100 mmol/L (98-107); Estimated CRCL calculation 62 ml/min; Estimated Glomerular Filt Rate > 60; Glucose 88 mg/dL (65-105); Magnesium 2.3 mg/dL (1.6-2.3); Potassium 4.2 mmol/L (3.4-5.0); Sodium 139 mmol/L (137-145)
[2020-01-01] MEDS: BENZONATATE 100 MG CAPSULE 200 MG PO ×3 (08:54→17:51)
[2020-01-01] MEDS: SPIRONOLACTONE 25 MG TABLET PO (08:54)
[2020-01-01] MEDS: DOCUSATE SODIUM 100 MG CAPSULE 300 MG PO (08:54)
[2020-01-01] MEDS: lisinopriL 10 MG TABLET PO (08:55)
[2020-01-01] MEDS: PANTOPRAZOLE 40 MG TABLET PO (08:55)
[2020-01-01] MEDS: predniSONE 20 MG TABLET 40 MG PO (08:55)
[2020-01-01] MEDS: amLODIPine BESYLATE 5 MG TABLET PO (08:55)
[2020-01-01] MEDS: ENOXAPARIN 40 MG/0.4 ML SYRINGE SUB-Q ×2 (08:56→20:37)
[2020-01-01] MEDS: MAGNESIUM HYDROXIDE SUSP 30 ML UDC PO (12:42)
--- NOTE | 2020-01-01 12:48 | PCDIET ---
ICU Rounding Note: Patient consuming 90-100% of meals on regular diet with Ensure Compact BID. Last recorded weight is 81.9kg which is stable. Bowel Motility: Last documented BM on 12/27/19. Colace initiated on 12/31/19. Labs Reviewed: Hgb (9.6), Hct (29.5), Cr (0.6) Meds Noted: Colace, Xopenex, Synthroid, Prinivil, Protonix, Prednisone, Aldactone Additional Notes: No documented skin breakdown. Following daily in ICU rounds. Assessing/reassessing every 5 days.
--- NOTE | 2020-01-01 17:27 | WPDINTPN ---
Progress Note: A&P Assessment and Plan (1) Acute respiratory failure with hypoxia: Code(s): J96.01 - Acute respiratory failure with hypoxia Status: Acute Assessment and Plan: acute respiratory failure with hypoxia likely related to COVID-19 pneumonia - patient currently on high-flow therapy, 50% FiO2, 40 L flow rate. Wean FiO2 to maintain O2 sats greater than 92% - patient not requiring non-rebreather mask, will use p.r.n. if desaturates - cough has improved, continue Tessalon Perles (2) Pneumonia due to COVID-19 virus: Code(s): U07.1 - COVID-19; J12.89 - Other viral pneumonia Status: Acute Assessment and Plan: chest x-ray has been ordered - positive COVID-19 - continue droplet, airborne, contact isolation /precautions - inflammatory markers being monitored, LDH, ferritin, D-dimer, CRP all trending down - patient refused dexamethasone as she is allergic to it, had been placed on prednisone started on 12/25/2019. - status post Remdesivir course - 12/26/2019 1 unit convalescent plasma (3) Elevated LFTs: Code(s): R79.89 - Other specified abnormal findings of blood chemistry Status: Acute Assessment and Plan: LFTs have normalized -, could be related to hepatic steatosis, will continue to monitor the ALT closely as patient is on Remdesivir (4) Sepsis: Qualifiers: Sepsis type: sepsis due to unspecified organism Sepsis acute organ dysfunction status: with acute organ dysfunction Severe sepsis acute organ dysfunction type: acute respiratory failure Acute respiratory failure type: with hypoxia Severe sepsis shock status: without septic shock Qualified Code(s): A41.9 - Sepsis, unspecified organism; R65.20 - Severe sepsis without septic shock; J96.01 - Acute respiratory failure with hypoxia Code(s): A41.9 - Sepsis, unspecified organism Status: Acute Assessment and Plan: RESOLVED - patient with hypoxia, tachypnea, elevated LFTs - will continue to monitor (5) DVT prophylaxis: Code(s): Z29.9 - Encounter for prophylactic measures, unspecified Status: Acute Assessment and Plan: continue Lovenox 40 mg SQ q.12 hours (6) Hypothyroidism: Code(s): E03.9 - Hypothyroidism, unspecified Status: Acute Assessment and Plan: continue levothyroxine (7) Essential hypertension: Code(s): I10 - Essential (primary) hypertension Status: Acute Assessment and Plan: patient with elevated blood pressures, currently on lisinopril, will restart spironolactone which is a home medication and had amlodipine. - P.r.n. hydralazine Additional Plan discussed with the patient and her daughter, Maddy and updated her with patient's condition and plan of care, answered all questions code status: Full code Critical care time spent: 33 minutes Due to a high probability of clinically significant, life threatening deterioration, the patient required my highest level of preparedness to intervene emergently and I personally spent this critical care time directly and personally managing the patient. This critical care time included obtaining a history; examining the patient; pulse oximetry; ordering and review of studies; arranging urgent treatment with development of a management plan; evaluation of patient's response to treatment; frequent reassessment; and discussions with other providers. It was exclusive of separately billable procedures and treating other patients and teaching time. Please see Assessment and Plan section and the rest of the note for further information on patient assessment and treatment Subjective Date/time seen: 01/01/20 17:27 Interval history: Reason for consult: COVID-19 19 pneumonia, acute respiratory failure with worsening hypoxia - received convalescent plasma on 12/26/2019 01/01/2020: Patient seen and examined, is on 55% FiO2, 40 L flow rate. patient denies any chest pain, shortnes
[2020-01-02] VITALS (19 sets, daily range): BP systolic 114–155; BP diastolic 54–94; PULSE 65–104; RESP 16–28; TEMP 35.9–36.8; O2SAT 90–99
[2020-01-02] MEDS: LEVALBUTEROL HFA (*SP) 15 GM INHALER 4 PUFF INHALATION ×4 (03:26→19:42)
[2020-01-02] MEDS: LEVOTHYROXINE SODIUM 50 MCG TABLET PO (05:07)
[2020-01-02] MEDS: CENTRAL LINE FLUSH 10 ML IV PUSH ×3 (05:07→20:32)
[2020-01-02 05:31] LABS: Basophils Percent Auto 0.3 % (0.2-1.2); Eosinophils Absolute Auto 0.1 K/mm3 (0-0.3); Eosinophils Percent Auto 1.9 % (0-4.4); Hematocrit 30.4 % (37.0-47.0); Hemoglobin 9.8 g/dL (12.0-15.0); Immature Granulocyte Absolute 0.17 K/mm3 (0.00-0.031); Immature Granulocyte Percent A 2.7 % (0-0.5); Lymphocytes Absolute Auto 1.74 K/mm3 (0.9-3.2); Lymphocytes Percent Auto 27.1 % (18.3-44.2); Mean Corpuscular HGB Conc 32.2 g/dl (32-36); Mean Corpuscular Hemoglobin 35.8 pg (26-34); Mean Corpuscular Volume 110.9 fl (80-100); Mean Platelet Volume 10.2 fl (7.4-10.4); Monocytes Absolute Auto 0.5 K/mm3 (0.1-0.6); Neutrophils Absolute Auto 3.9 K/mm3 (1.3-6.7); Nucleated Red Blood Cells Perc 0.5 % (0.0-0.2); Platelet Count Result 479 k/mm3 (150-375); Red Blood Count 2.74 M/mm3 (4.2-5.4); Red Cell Distribution Width 13.4 % (11.5-14.5); White Blood Count 6.4 K/mm3 (4.5-10.0)
[2020-01-02 05:50] LABS: D Dimer 1.54 ug/mL (<0.48)
[2020-01-02 05:51] LABS: Alanine Aminotransferase 36 U/L (4-35); Albumin Level 2.9 g/dL (3.5-5.1); Alkaline Phosphatase 54 U/L (38-126); Anion Gap 2 mmol/L (8-16); Aspartate Amino Transferase 28 U/L (14-36); Bilirubin,Total 0.5 mg/dL (0.2-1.3); Blood Urea Nitrogen 17 mg/dL (7-17); Calcium 8.5 mg/dL (8.4-10.2); Carbon Dioxide 36 mmol/L (22-30); Chloride 101 mmol/L (98-107); Estimated CRCL calculation 74 ml/min; Estimated Glomerular Filt Rate > 60; Glucose 104 mg/dL (65-105); Lactate Dehydrogenase 778 U/L (313-618); Magnesium 2.5 mg/dL (1.6-2.3); Phosphorus 3.5 mg/dL (2.5-4.5); Potassium 4.4 mmol/L (3.4-5.0); Sodium 139 mmol/L (137-145)
[2020-01-02] MEDS: ENOXAPARIN 40 MG/0.4 ML SYRINGE SUB-Q ×2 (08:22→20:32)
[2020-01-02] MEDS: BENZONATATE 100 MG CAPSULE 200 MG PO ×3 (08:23→16:51)
[2020-01-02] MEDS: lisinopriL 10 MG TABLET PO (08:23)
[2020-01-02] MEDS: MAGNESIUM HYDROXIDE SUSP 30 ML UDC PO (08:23)
[2020-01-02] MEDS: DOCUSATE SODIUM 100 MG CAPSULE 300 MG PO (08:23)
[2020-01-02] MEDS: amLODIPine BESYLATE 5 MG TABLET PO (08:24)
[2020-01-02] MEDS: SPIRONOLACTONE 25 MG TABLET PO (08:24)
[2020-01-02] MEDS: predniSONE 20 MG TABLET 40 MG PO (08:24)
[2020-01-02] MEDS: PANTOPRAZOLE 40 MG TABLET PO (08:25)
--- NOTE | 2020-01-02 12:14 | WPDINTPN ---
Progress Note: A&P Assessment and Plan (1) Acute respiratory failure with hypoxia: Code(s): J96.01 - Acute respiratory failure with hypoxia Status: Acute Assessment and Plan: acute respiratory failure with hypoxia likely related to COVID-19 pneumonia - patient currently on high-flow therapy, 50% FiO2, 40 L flow rate. Wean FiO2 to maintain O2 sats greater than 92% - patient not requiring non-rebreather mask, will use p.r.n. if desaturates - cough has improved, continue Tessalon Perles (2) Pneumonia due to COVID-19 virus: Code(s): U07.1 - COVID-19; J12.89 - Other viral pneumonia Status: Acute Assessment and Plan: chest x-ray has been ordered - positive COVID-19 - continue droplet, airborne, contact isolation /precautions - inflammatory markers being monitored, LDH, ferritin, D-dimer, CRP all trending down - patient refused dexamethasone as she is allergic to it, had been placed on prednisone started on 12/25/2019. - status post Remdesivir course - 12/26/2019 1 unit convalescent plasma (3) Elevated LFTs: Code(s): R79.89 - Other specified abnormal findings of blood chemistry Status: Acute Assessment and Plan: LFTs have normalized -, could be related to hepatic steatosis, will continue to monitor the ALT closely as patient is on Remdesivir (4) Sepsis: Qualifiers: Sepsis type: sepsis due to unspecified organism Sepsis acute organ dysfunction status: with acute organ dysfunction Severe sepsis acute organ dysfunction type: acute respiratory failure Acute respiratory failure type: with hypoxia Severe sepsis shock status: without septic shock Qualified Code(s): A41.9 - Sepsis, unspecified organism; R65.20 - Severe sepsis without septic shock; J96.01 - Acute respiratory failure with hypoxia Code(s): A41.9 - Sepsis, unspecified organism Status: Acute Assessment and Plan: RESOLVED - patient with hypoxia, tachypnea, elevated LFTs - will continue to monitor (5) DVT prophylaxis: Code(s): Z29.9 - Encounter for prophylactic measures, unspecified Status: Acute Assessment and Plan: continue Lovenox 40 mg SQ q.12 hours (6) Hypothyroidism: Code(s): E03.9 - Hypothyroidism, unspecified Status: Acute Assessment and Plan: continue levothyroxine (7) Essential hypertension: Code(s): I10 - Essential (primary) hypertension Status: Acute Assessment and Plan: patient with elevated blood pressures, currently on lisinopril, spironolactone and amlodipine - P.r.n. hydralazine Additional Plan discussed with the patient and updated her with patient's condition and plan of care, answered all questions code status: Full code Critical care time spent: 32 minutes Due to a high probability of clinically significant, life threatening deterioration, the patient required my highest level of preparedness to intervene emergently and I personally spent this critical care time directly and personally managing the patient. This critical care time included obtaining a history; examining the patient; pulse oximetry; ordering and review of studies; arranging urgent treatment with development of a management plan; evaluation of patient's response to treatment; frequent reassessment; and discussions with other providers. It was exclusive of separately billable procedures and treating other patients and teaching time. Please see Assessment and Plan section and the rest of the note for further information on patient assessment and treatment Subjective Date/time seen: 01/02/20 12:14 Interval history: Reason for consult: COVID-19 19 pneumonia, acute respiratory failure with worsening hypoxia - received convalescent plasma on 12/26/2019 01/02/2020: Oxygen requirements trending down, patient on 50% FiO2, 40 L flow rate. Not requiring non-rebreather mask. Patient comfortably laying in bed, denies any chest pain
--- NOTE | 2020-01-02 12:54 | PCDIET ---
ICU Rounding Note: Patient tolerating regular diet with intakes 50-100%. Continues to receive Ensure Compact BID. Last recorded weight is 84.0kg which is increased from last review. Bowel Motility: No documented BM. Patient taking medications to promote BM. Labs Reviewed: Hgb (9.8), Hct (30.4), Cr (0.5) Meds Noted: Norvasc, Colace, Synthroid, Milk of Magnesia, Protonix, Prednisone, Aldactone Additional Notes: No documented skin breakdown. Following daily in ICU rounds. Assessing/reassessing every 5 days.
[2020-01-03] VITALS (20 sets, daily range): BP systolic 123–157; BP diastolic 53–74; PULSE 71–102; RESP 16–28; TEMP 35.5–36.9; O2SAT 91–97
[2020-01-03] MEDS: LEVALBUTEROL HFA (*SP) 15 GM INHALER 4 PUFF INHALATION ×4 (01:22→20:37)
[2020-01-03 05:41] LABS: Hematocrit 29.8 % (37.0-47.0); Hemoglobin 9.5 g/dL (12.0-15.0); Mean Corpuscular HGB Conc 31.9 g/dl (32-36); Mean Corpuscular Hemoglobin 35.6 pg (26-34); Mean Corpuscular Volume 111.6 fl (80-100); Mean Platelet Volume 10.1 fl (7.4-10.4); Platelet Count Result 436 k/mm3 (150-375); Red Blood Count 2.67 M/mm3 (4.2-5.4); Red Cell Distribution Width 13.7 % (11.5-14.5)
[2020-01-03] MEDS: LEVOTHYROXINE SODIUM 50 MCG TABLET PO (05:41)
[2020-01-03] MEDS: CENTRAL LINE FLUSH 10 ML IV PUSH ×3 (05:41→20:52)
[2020-01-03] MEDS: BENZONATATE 100 MG CAPSULE 200 MG PO ×3 (06:37→16:58)
[2020-01-03] MEDS: SPIRONOLACTONE 25 MG TABLET PO (08:50)
[2020-01-03] MEDS: DOCUSATE SODIUM 100 MG CAPSULE 300 MG PO (08:50)
[2020-01-03] MEDS: predniSONE 20 MG TABLET 40 MG PO (08:50)
[2020-01-03] MEDS: PANTOPRAZOLE 40 MG TABLET PO (08:51)
[2020-01-03] MEDS: amLODIPine BESYLATE 5 MG TABLET PO (08:51)
[2020-01-03] MEDS: ENOXAPARIN 40 MG/0.4 ML SYRINGE SUB-Q ×2 (08:51→20:52)
[2020-01-03] MEDS: lisinopriL 10 MG TABLET PO (08:51)
[2020-01-03 10:26] LABS: Anion Gap 3 mmol/L (8-16); Blood Urea Nitrogen 17 mg/dL (7-17); Calcium 8.7 mg/dL (8.4-10.2); Carbon Dioxide 36 mmol/L (22-30); Chloride 102 mmol/L (98-107); Estimated CRCL calculation 62 ml/min; Estimated Glomerular Filt Rate > 60; Glucose 93 mg/dL (65-105); Magnesium 2.7 mg/dL (1.6-2.3); Phosphorus 3.9 mg/dL (2.5-4.5); Potassium 4.5 mmol/L (3.4-5.0); Sodium 141 mmol/L (137-145)
--- NOTE | 2020-01-03 11:24 | WPDINTPN ---
Progress Note: A&P Assessment and Plan (1) Acute respiratory failure with hypoxia: Code(s): J96.01 - Acute respiratory failure with hypoxia Status: Acute Assessment and Plan: acute respiratory failure with hypoxia likely related to COVID-19 pneumonia - patient currently on high-flow therapy, weaning FiO2, currently on 40% FiO2 and 30 L flow rate. - patient not requiring non-rebreather mask, will use p.r.n. if desaturates - cough has improved, continue Tessalon Perles - PT/OT is following the patient (2) Pneumonia due to COVID-19 virus: Code(s): U07.1 - COVID-19; J12.89 - Other viral pneumonia Status: Acute Assessment and Plan: chest x-ray has been ordered - positive COVID-19 - continue droplet, airborne, contact isolation /precautions - inflammatory markers being monitored, LDH, ferritin, D-dimer, CRP all trending down - patient refused dexamethasone as she is allergic to it, had been placed on prednisone started on 12/25/2019. - status post Remdesivir course - 12/26/2019 1 unit convalescent plasma (3) Elevated LFTs: Code(s): R79.89 - Other specified abnormal findings of blood chemistry Status: Acute Assessment and Plan: LFTs have normalized -, could be related to hepatic steatosis, will continue to monitor the ALT closely as patient is on Remdesivir (4) Sepsis: Qualifiers: Sepsis type: sepsis due to unspecified organism Sepsis acute organ dysfunction status: with acute organ dysfunction Severe sepsis acute organ dysfunction type: acute respiratory failure Acute respiratory failure type: with hypoxia Severe sepsis shock status: without septic shock Qualified Code(s): A41.9 - Sepsis, unspecified organism; R65.20 - Severe sepsis without septic shock; J96.01 - Acute respiratory failure with hypoxia Code(s): A41.9 - Sepsis, unspecified organism Status: Acute Assessment and Plan: RESOLVED - patient with hypoxia, tachypnea, elevated LFTs - will continue to monitor (5) DVT prophylaxis: Code(s): Z29.9 - Encounter for prophylactic measures, unspecified Status: Acute Assessment and Plan: continue Lovenox 40 mg SQ q.12 hours (6) Hypothyroidism: Code(s): E03.9 - Hypothyroidism, unspecified Status: Acute Assessment and Plan: continue levothyroxine (7) Essential hypertension: Code(s): I10 - Essential (primary) hypertension Status: Acute Assessment and Plan: patient with elevated blood pressures, currently on lisinopril, spironolactone and amlodipine - P.r.n. hydralazine Additional Plan discussed with the patient and updated her with patient's condition and plan of care, answered all questions code status: Full code Critical care time spent: 31minutes Due to a high probability of clinically significant, life threatening deterioration, the patient required my highest level of preparedness to intervene emergently and I personally spent this critical care time directly and personally managing the patient. This critical care time included obtaining a history; examining the patient; pulse oximetry; ordering and review of studies; arranging urgent treatment with development of a management plan; evaluation of patient's response to treatment; frequent reassessment; and discussions with other providers. It was exclusive of separately billable procedures and treating other patients and teaching time. Please see Assessment and Plan section and the rest of the note for further information on patient assessment and treatment Subjective Date/time seen: 01/03/20 11:24 Interval history: Reason for consult: COVID-19 19 pneumonia, acute respiratory failure with worsening hypoxia - received convalescent plasma on 12/26/2019 01/03/2020: Oxygen requirements trending down currently on 40% and 30 L flow rate. Patient is comfortable, sitting up in chair, denies any chest pain, shortness of
--- NOTE | 2020-01-03 14:16 | PCDIET ---
Nutrition Follow-Up Complete: Nutrition Diagnosis: Involuntary weight loss related to decreased appetite as evidenced by patient report. Nutrition Goal: Patient to consume 50% of meals/supplements or greater. Goal met. Patient consuming 90-100% of meals on regular diet with Ensure Compact BID. No new recommendations at this time. Last recorded weight is 81.2 kg which is decreased from last review. -I/O. Bowel Motility: Last documented BM on 01/02/20. Labs Reviewed: Hgb (9.5), Hct (29.8), Cr (0.6) Meds Noted: Norvasc, Colace, Xopenex, Synthroid, Prinivil, Protonix, Prednisone, Aldactone Additional Notes: No documented skin breakdown. Will continue to monitor with same goal. Nutrition Monitoring and Evaluation: Follow up every 5 days.
--- NOTE | 2020-01-03 16:53 | PM.IMPN ---
Progress Note: A&P Assessment and Plan (1) Acute respiratory failure with hypoxia: Code(s): J96.01 - Acute respiratory failure with hypoxia Status: Acute Assessment and Plan: Patient with acute respiratory failure with hypoxia related to COVID-19. Patient currently 5 L high-flow nasal. She is doing well with ambulating in the room with minimal shortness of breath and without significant desaturation. Continue to wean oxygen as tolerated. Continue Xopenex and Spiriva. Tessalon for cough. (2) Pneumonia due to COVID-19 virus: Code(s): U07.1 - COVID-19; J12.89 - Other viral pneumonia Status: Acute Assessment and Plan: Chest x-ray reviewed showing extensive bilateral airspace disease. Completed Remdesivir 12/27. Per notes, patient refused Decadron stating she was allergic but did agree to take prednisone. She was given equivalent dose of prednisone daily (40 mg). Today is Day 10 of Prednisone so will wean off. Inflammatroy markers trending down mostly. Received 1 unit convalescent plasma 12/26/19. Remdesivir completed 12/27. Continue isolation. Wean O2 as toelrated. Continue Xopenex and Spiriva inhalers (3) Sepsis: Qualifiers: Acute respiratory failure type: with hypoxia Sepsis acute organ dysfunction status: with acute organ dysfunction Sepsis type: sepsis due to unspecified organism Severe sepsis acute organ dysfunction type: acute respiratory failure Severe sepsis shock status: without septic shock Qualified Code(s): A41.9 - Sepsis, unspecified organism; R65.20 - Severe sepsis without septic shock; J96.01 - Acute respiratory failure with hypoxia Code(s): A41.9 - Sepsis, unspecified organism Status: Acute Assessment and Plan: Sepsis present on admission based on criteria of fever, tachypnea, hypoxia due to COVID. Symptoms overall have improved. WBC remains normal. (4) Essential hypertension: Code(s): I10 - Essential (primary) hypertension Status: Acute Assessment and Plan: Patient's blood pressure was reviewed on 01/02 Blood pressure remains mostly well controlled. Continue current medications with lisinopril, aldactone and Norvasc. (5) Hypothyroidism: Code(s): E03.9 - Hypothyroidism, unspecified Status: Acute Assessment and Plan: No recent TSH listed. Will check TSH. Continue Synthroid. (6) Elevated LFTs: Code(s): R79.89 - Other specified abnormal findings of blood chemistry Status: Acute Assessment and Plan: The patient's transaminases are elevated on admission but she states that she always has some mildly elevated liver enzymes. AST and ALT trending down. (7) DVT prophylaxis: Code(s): Z29.9 - Encounter for prophylactic measures, unspecified Status: Acute Assessment and Plan: Lovenox 40mg bid Subjective Date/time seen: 01/03/20 16:53 Interval history: Date of service: 01/02 79yo female here for COVID-19 19 pneumonia, acute respiratory failure with worsening hypoxia. She received convalescent plasma on 12/26/2019. Feels well today. Up walking in the room with only minimal SAL[place]. No CP. Eating well without n/v. She states pulse ox remained in the 90%'s when walking in the room. Exam Narrative: Exam Narrative: AF 95.9 157/72 99 26 93% 5L Gen - NARD sitting up in bed Chest - inspiratory crackles bibasilar R>L. nml RR. no conversational dyspnea CV - RRR S1/S2; Tele showing no significant dysrhythmias Abd - Soft, NT/ND, Positive BS - Parsons secured draining clear yellow urine. Ext - No pedal edema Neuro - Alert and oriented. Nonfocal exam. Psych - Nml mood and affect Skin - Warm and dry Objective Data Vital Signs Vital Signs: Vital Signs - 24 hr 01/02/20 18:00 01/02/20 19:40 01/02/20 19:42 Temperature Pulse Rate 96 93 87 Respiratory Rate 19 19 16 Blood Pressure 132/61 Pulse Oximetry 94 94 01/02/20
--- NOTE | 2020-01-03 18:45 | PC.NURSE ---
This patient, Venessa Villar, was transferred to [ ] on 01/03/20 at 1920. Personal belongings sent with patient. Belongings list checked and signed with receiving [ ]. Report given to [ ]. Appropriate documentation sent with patient.
--- NOTE | 2020-01-03 19:16 | PC.NURSE ---
This patient, Venessa Villar, was received from [ICU ] on 01/03/20 at 1910. Report received from ALBERT Turner. Personal belongings list checked and signed. Patient/family oriented to unit policies and routines
--- NOTE | 2020-01-03 19:21 | PC.NURSE ---
This patient, Venessa Villar, was transferred to [facility] via bed on 01/03/20 at 1915. Personal belongings sent with patient. Report given to ALBERT Medina. Appropriate documentation sent with patient.
[2020-01-04] VITALS (7 sets, daily range): BP systolic 135–143; BP diastolic 54–77; PULSE 85–92; RESP 16–20; TEMP 36.6–36.8; O2SAT 91–99
[2020-01-04] MEDS: LEVALBUTEROL HFA (*SP) 15 GM INHALER 4 PUFF INHALATION ×4 (03:08→20:45)
[2020-01-04] MEDS: LEVOTHYROXINE SODIUM 50 MCG TABLET PO (06:05)
[2020-01-04 06:21] LABS: Hematocrit 29.2 % (37.0-47.0); Hemoglobin 9.4 g/dL (12.0-15.0); Mean Corpuscular HGB Conc 32.2 g/dl (32-36); Mean Corpuscular Volume 111.9 fl (80-100); Platelet Count Result 444 k/mm3 (150-375); Red Blood Count 2.61 M/mm3 (4.2-5.4); Red Cell Distribution Width 13.8 % (11.5-14.5); White Blood Count 5.9 K/mm3 (4.5-10.0)
[2020-01-04 06:43] LABS: Anion Gap 2 mmol/L (8-16); Blood Urea Nitrogen 18 mg/dL (7-17); Calcium 8.5 mg/dL (8.4-10.2); Carbon Dioxide 36 mmol/L (22-30); Chloride 102 mmol/L (98-107); Estimated CRCL calculation 62 ml/min; Estimated Glomerular Filt Rate > 60; Glucose 101 mg/dL (65-105); Magnesium 2.5 mg/dL (1.6-2.3); Phosphorus 4.4 mg/dL (2.5-4.5); Potassium 3.9 mmol/L (3.4-5.0); Sodium 140 mmol/L (137-145)
[2020-01-04] MEDS: CENTRAL LINE FLUSH 10 ML IV PUSH ×3 (06:46→21:07)
[2020-01-04] MEDS: predniSONE 20 MG TABLET PO (08:02)
[2020-01-04] MEDS: DOCUSATE SODIUM 100 MG CAPSULE 300 MG PO (08:02)
[2020-01-04] MEDS: ENOXAPARIN 40 MG/0.4 ML SYRINGE SUB-Q ×2 (08:02→21:07)
[2020-01-04] MEDS: amLODIPine BESYLATE 5 MG TABLET PO (08:02)
[2020-01-04] MEDS: BENZONATATE 100 MG CAPSULE 200 MG PO ×2 (08:02→15:43)
[2020-01-04] MEDS: PANTOPRAZOLE 40 MG TABLET PO (08:03)
[2020-01-04] MEDS: SPIRONOLACTONE 25 MG TABLET PO (08:03)
[2020-01-04] MEDS: lisinopriL 10 MG TABLET PO (08:03)
--- NOTE | 2020-01-04 10:50 | PM.IMPN ---
Progress Note: A&P Assessment and Plan (1) Acute respiratory failure with hypoxia: Code(s): J96.01 - Acute respiratory failure with hypoxia Status: Acute Assessment and Plan: Patient with acute respiratory failure with hypoxia related to COVID-19. Patient remains on 5 L high-flow nasal. She is doing well with sitting in the chair and ambulating in the room. Continue to wean oxygen as tolerated. Continue Xopenex and Spiriva. Tessalon for cough. humidify O2. home O2 evaluation 1-2 days if change in her O2 requirement. (2) Pneumonia due to COVID-19 virus: Code(s): U07.1 - COVID-19; J12.89 - Other viral pneumonia Status: Acute Assessment and Plan: Chest x-ray reviewed showing extensive bilateral airspace disease. Completed Remdesivir 12/27. Received 1 unit convalescent plasma 12/26/19. Per notes, patient refused Decadron stating she was allergic but did agree to take prednisone. She was given equivalent dose of prednisone daily (40 mg). Today is Day 10 of Prednisone so will wean off. Inflammatory markers trending down mostly. Continue isolation. Wean O2 as tolerated. Continue Xopenex and Spiriva inhalers (3) Sepsis: Qualifiers: Acute respiratory failure type: with hypoxia Sepsis acute organ dysfunction status: with acute organ dysfunction Sepsis type: sepsis due to unspecified organism Severe sepsis acute organ dysfunction type: acute respiratory failure Severe sepsis shock status: without septic shock Qualified Code(s): A41.9 - Sepsis, unspecified organism; R65.20 - Severe sepsis without septic shock; J96.01 - Acute respiratory failure with hypoxia Code(s): A41.9 - Sepsis, unspecified organism Status: Acute Assessment and Plan: Sepsis present on admission based on criteria of fever, tachypnea, hypoxia due to COVID. Symptoms overall have improved. WBC remains normal. (4) Essential hypertension: Code(s): I10 - Essential (primary) hypertension Status: Acute Assessment and Plan: Patient's blood pressure was reviewed on 01/03 Blood pressure remains mostly well controlled. Continue current medications with lisinopril, aldactone and Norvasc. (5) Hypothyroidism: Code(s): E03.9 - Hypothyroidism, unspecified Status: Acute Assessment and Plan: TSH normal. Continue Synthroid. (6) Elevated LFTs: Code(s): R79.89 - Other specified abnormal findings of blood chemistry Status: Acute Assessment and Plan: The patient's transaminases are elevated on admission but she states that she always has some mildly elevated liver enzymes. AST and ALT trending down. (7) DVT prophylaxis: Code(s): Z29.9 - Encounter for prophylactic measures, unspecified Status: Acute Assessment and Plan: Lovenox 40mg bid Subjective Date/time seen: 01/04/20 10:50 Interval history: Date of service: 01/03 79yo female here for COVID-19 19 pneumonia, acute respiratory failure with worsening hypoxia. She received convalescent plasma on 12/26/2019. No complaints today. Slept poorly but this is common. She denies any chest pain. Cough is persistent and productive of mostly clear sputum. She occasionally has yellow or even reddish sputum at times. He does complain of dry nose from the oxygen. Eating normally. Exam Narrative: Exam Narrative: AF 98.2 143/60 92 20 91% 5L Gen - NARD sitting up in chair Chest - Few scattered rhonchi otherwise clear. Normal respiratory rate. No conversational dyspnea CV - RRR S1/S2 Abd - Soft, NT/ND, Positive BS Ext - No pedal edema Psych - Nml mood and affect. In good spirits. Skin - Warm and dry Objective Data Vital Signs Vital Signs: Vital Signs - 24 hr 01/03/20 10:54 01/03/20 12:00 01/03/20 13:37 Temperature 98.5 F Pulse Rate 97 95 88 Respiratory Rate 20 17 20 Blood Pressure 141/62 H Pulse Oximetry 94 97 94 01/03/20 14:00 01/03/20
[2020-01-04] MEDS: MELATONIN 5 MG TABLET PO (21:12)
[2020-01-04 23:08] LABS: Free T4 Free Thyroxine Reflex 0.91 ng/dL (0.78-2.19)
[2020-01-05] VITALS (9 sets, daily range): BP systolic 116–143; BP diastolic 57–98; PULSE 82–96; RESP 18–22; TEMP 36.2–36.8; O2SAT 91–97
[2020-01-05] MEDS: LEVOTHYROXINE SODIUM 50 MCG TABLET PO (05:55)
[2020-01-05] MEDS: CENTRAL LINE FLUSH 10 ML IV PUSH ×3 (05:55→21:01)
[2020-01-05 06:11] LABS: Hematocrit 29.8 % (37.0-47.0); Hemoglobin 9.6 g/dL (12.0-15.0); Mean Corpuscular HGB Conc 32.2 g/dl (32-36); Mean Corpuscular Hemoglobin 36.6 pg (26-34); Mean Corpuscular Volume 113.7 fl (80-100); Platelet Count Result 402 k/mm3 (150-375); Red Blood Count 2.62 M/mm3 (4.2-5.4); Red Cell Distribution Width 14.2 % (11.5-14.5)
[2020-01-05 06:26] LABS: Anion Gap 5 mmol/L (8-16); Blood Urea Nitrogen 18 mg/dL (7-17); Calcium 8.6 mg/dL (8.4-10.2); Carbon Dioxide 34 mmol/L (22-30); Chloride 101 mmol/L (98-107); Estimated CRCL calculation 62 ml/min; Estimated Glomerular Filt Rate > 60; Glucose 105 mg/dL (65-105); Magnesium 2.4 mg/dL (1.6-2.3); Potassium 4.3 mmol/L (3.4-5.0); Sodium 140 mmol/L (137-145)
[2020-01-05] MEDS: ENOXAPARIN 40 MG/0.4 ML SYRINGE SUB-Q ×2 (09:00→21:01)
[2020-01-05] MEDS: predniSONE 20 MG TABLET PO (09:01)
[2020-01-05] MEDS: PANTOPRAZOLE 40 MG TABLET PO (09:01)
[2020-01-05] MEDS: BENZONATATE 100 MG CAPSULE 200 MG PO ×3 (09:01→17:54)
[2020-01-05] MEDS: lisinopriL 10 MG TABLET PO (09:02)
[2020-01-05] MEDS: SPIRONOLACTONE 25 MG TABLET PO (09:02)
[2020-01-05] MEDS: DOCUSATE SODIUM 100 MG CAPSULE 300 MG PO (09:02)
[2020-01-05] MEDS: amLODIPine BESYLATE 5 MG TABLET PO (09:03)
[2020-01-05] MEDS: LEVALBUTEROL HFA (*SP) 15 GM INHALER 4 PUFF INHALATION ×3 (09:08→21:02)
--- NOTE | 2020-01-05 14:02 | PM.IMPN ---
Progress Note: A&P Assessment and Plan (1) Acute respiratory failure with hypoxia: Code(s): J96.01 - Acute respiratory failure with hypoxia Status: Acute Assessment and Plan: Patient with acute respiratory failure with hypoxia related to COVID-19. Patient remains on 5 L high-flow nasal. She is doing well with sitting in the chair and ambulating in the room. Continue to wean oxygen as tolerated. Continue Xopenex and Spiriva. Tessalon for cough. humidify O2. home O2 evaluation 1-2 days if change in her O2 requirement. (2) Pneumonia due to COVID-19 virus: Code(s): U07.1 - COVID-19; J12.89 - Other viral pneumonia Status: Acute Assessment and Plan: Chest x-ray reviewed 01/02 showing extensive bilateral airspace disease. Completed Remdesivir 12/27. Received 1 unit convalescent plasma 12/26/19. Per notes, patient refused Decadron stating she was allergic but did agree to take prednisone. She was given equivalent dose of prednisone daily (40 mg). Completed Prednisone x 10 days so will wean off. Inflammatory markers have been trending down mostly. Continue isolation. Wean O2 as tolerated. Continue Xopenex and Spiriva inhalers (3) Sepsis: Qualifiers: Acute respiratory failure type: with hypoxia Sepsis acute organ dysfunction status: with acute organ dysfunction Sepsis type: sepsis due to unspecified organism Severe sepsis acute organ dysfunction type: acute respiratory failure Severe sepsis shock status: without septic shock Qualified Code(s): A41.9 - Sepsis, unspecified organism; R65.20 - Severe sepsis without septic shock; J96.01 - Acute respiratory failure with hypoxia Code(s): A41.9 - Sepsis, unspecified organism Status: Acute Assessment and Plan: Sepsis present on admission based on criteria of fever, tachypnea, hypoxia due to COVID. Symptoms overall have improved. WBC remains normal. (4) Essential hypertension: Code(s): I10 - Essential (primary) hypertension Status: Acute Assessment and Plan: Patient's blood pressure was reviewed on 01/04 Blood pressure well controlled. Continue current medications with lisinopril, aldactone and Norvasc. (5) Hypothyroidism: Code(s): E03.9 - Hypothyroidism, unspecified Status: Acute Assessment and Plan: TSH normal. Continue Synthroid. (6) Elevated LFTs: Code(s): R79.89 - Other specified abnormal findings of blood chemistry Status: Acute Assessment and Plan: The patient's transaminases are elevated on admission but she states that she always has some mildly elevated liver enzymes. AST and ALT trending down. (7) DVT prophylaxis: Code(s): Z29.9 - Encounter for prophylactic measures, unspecified Status: Acute Assessment and Plan: Lovenox 40mg bid Subjective Date/time seen: 01/05/20 14:02 Interval history: Date of service: 01/04 79yo female here for COVID-19 19 pneumonia, acute respiratory failure with worsening hypoxia. She received convalescent plasma on 12/26/2019. Slept well last night. No CP. No abd pain. Eating normally. No SOB at rest but still with SALMERON. Walking in the room and to the BR. Exam Narrative: Exam Narrative: AF 97.2 116/98 95 18 93% 5L Gen - NARD sitting up in chair Chest - bibasilar inspiratory crackles, nml RR CV - RRR S1/S2 Abd - Soft, NT/ND, Positive BS Ext - No pedal edema Psych - Nml mood and affect. In good spirits. Skin - Warm and dry Objective Data Vital Signs Vital Signs: Vital Signs - 24 hr 01/04/20 15:20 01/04/20 20:44 01/05/20 00:00 Temperature 98.1 F 98 F 98.1 F Pulse Rate 85 92 85 Respiratory Rate 20 20 20 Blood Pressure 135/77 138/58 L 135/57 L Pulse Oximetry 99 91 91 01/05/20 00:11 01/05/20 04:00 01/05/20 08:00 Temperature 98.1 F 97.6 F Pulse Rate 89 82 89 Respiratory Rate 18 20 18 Blood Pressure 130/60 130/60 Pulse Oximetry 93 94 93 01/04
[2020-01-05] MEDS: MELATONIN 5 MG TABLET PO (21:01)
[2020-01-06] VITALS (9 sets, daily range): BP systolic 120–151; BP diastolic 52–65; PULSE 69–101; RESP 18–22; TEMP 36.4–36.9; O2SAT 93–95
[2020-01-06] MEDS: LEVALBUTEROL HFA (*SP) 15 GM INHALER 4 PUFF INHALATION ×3 (02:17→13:29)
[2020-01-06] MEDS: LEVOTHYROXINE SODIUM 50 MCG TABLET PO (05:37)
[2020-01-06] MEDS: CENTRAL LINE FLUSH 10 ML IV PUSH ×3 (05:37→21:03)
[2020-01-06 06:05] LABS: Hematocrit 29.5 % (37.0-47.0); Hemoglobin 9.4 g/dL (12.0-15.0); Mean Corpuscular HGB Conc 31.9 g/dl (32-36); Mean Corpuscular Hemoglobin 35.9 pg (26-34); Mean Corpuscular Volume 112.6 fl (80-100); Mean Platelet Volume 10.1 fl (7.4-10.4); Platelet Count Result 367 k/mm3 (150-375); Red Blood Count 2.62 M/mm3 (4.2-5.4); Red Cell Distribution Width 13.8 % (11.5-14.5); White Blood Count 5.8 K/mm3 (4.5-10.0)
[2020-01-06 06:17] LABS: D Dimer 0.59 ug/mL (<0.48)
[2020-01-06 06:18] LABS: Anion Gap 3 mmol/L (8-16); Blood Urea Nitrogen 14 mg/dL (7-17); CRP 0.7 mg/dL (<1.0); Calcium 8.7 mg/dL (8.4-10.2); Carbon Dioxide 36 mmol/L (22-30); Chloride 99 mmol/L (98-107); Estimated CRCL calculation 62 ml/min; Estimated Glomerular Filt Rate > 60; Glucose 107 mg/dL (65-105); Lactate Dehydrogenase 550 U/L (313-618); Magnesium 2.2 mg/dL (1.6-2.3); Phosphorus 4.5 mg/dL (2.5-4.5); Sodium 138 mmol/L (137-145)
[2020-01-06] MEDS: ENOXAPARIN 40 MG/0.4 ML SYRINGE SUB-Q ×2 (09:29→21:03)
[2020-01-06] MEDS: PANTOPRAZOLE 40 MG TABLET PO (09:30)
[2020-01-06] MEDS: DOCUSATE SODIUM 100 MG CAPSULE 300 MG PO (09:30)
[2020-01-06] MEDS: SPIRONOLACTONE 25 MG TABLET PO (09:30)
[2020-01-06] MEDS: lisinopriL 10 MG TABLET PO (09:30)
[2020-01-06] MEDS: predniSONE 10 MG TABLET PO (09:30)
[2020-01-06] MEDS: amLODIPine BESYLATE 5 MG TABLET PO (09:30)
[2020-01-06] MEDS: BENZONATATE 100 MG CAPSULE 200 MG PO ×3 (09:31→17:08)
--- NOTE | 2020-01-06 15:29 | PM.IMPN ---
Progress Note: A&P Assessment and Plan (1) Acute respiratory failure with hypoxia: Code(s): J96.01 - Acute respiratory failure with hypoxia Status: Acute Assessment and Plan: Patient with acute respiratory failure with hypoxia related to COVID-19. Patient remains on 5 L high-flow nasal. She is doing well with sitting in the chair and ambulating in the room. Continue to wean oxygen as tolerated. Continue Xopenex and Spiriva. Tessalon for cough. Home O2 evaluation tomorrow. (2) Pneumonia due to COVID-19 virus: Code(s): U07.1 - COVID-19; J12.89 - Other viral pneumonia Status: Acute Assessment and Plan: Chest x-ray reviewed 01/02 showing extensive bilateral airspace disease. Completed Remdesivir 12/27. Received 1 unit convalescent plasma 12/26/19. Per notes, patient refused Decadron stating she was allergic but did agree to take prednisone. She was given equivalent dose of prednisone daily (40 mg). Completed Prednisone x 10 days. Inflammatory markers much better with normal LDH and CRP now. Continue isolation. Still on 4L HFNC; Wean O2 as tolerated. Continue Xopenex and Spiriva inhalers. Lasix IV once. (3) Sepsis: Qualifiers: Sepsis type: sepsis due to unspecified organism Sepsis acute organ dysfunction status: with acute organ dysfunction Severe sepsis acute organ dysfunction type: acute respiratory failure Acute respiratory failure type: with hypoxia Severe sepsis shock status: without septic shock Qualified Code(s): A41.9 - Sepsis, unspecified organism; R65.20 - Severe sepsis without septic shock; J96.01 - Acute respiratory failure with hypoxia Code(s): A41.9 - Sepsis, unspecified organism Status: Acute Assessment and Plan: Sepsis present on admission based on criteria of fever, tachypnea, hypoxia due to COVID. Symptoms overall have improved. WBC remains normal. (4) Essential hypertension: Code(s): I10 - Essential (primary) hypertension Status: Acute Assessment and Plan: Patient's blood pressure was reviewed on 01/05 Blood pressure overall reasonably well controlled. Continue current medications with lisinopril, aldactone and Norvasc. (5) Hypothyroidism: Code(s): E03.9 - Hypothyroidism, unspecified Status: Acute Assessment and Plan: TSH normal. Continue Synthroid. (6) Elevated LFTs: Code(s): R79.89 - Other specified abnormal findings of blood chemistry Status: Acute Assessment and Plan: The patient's transaminases are elevated on admission but she states that she always has some mildly elevated liver enzymes. AST and ALT trending down almost to normal. Probably at baseline now. (7) DVT prophylaxis: Code(s): Z29.9 - Encounter for prophylactic measures, unspecified Status: Acute Assessment and Plan: Lovenox 40mg bid Subjective Date/time seen: 01/06/20 15:29 Interval history: Date of service: 01/04 79yo female here for COVID-19 19 pneumonia, acute respiratory failure with worsening hypoxia. She received convalescent plasma on 12/26/2019. Slept well last night. No CP. No abd pain. Eating normally. No SOB at rest but still with SALMERON. Walking in the room and to the BR. Exam Narrative: Exam Narrative: AF 97.2 116/98 95 18 93% 5L Gen - NARD sitting up in chair Chest - bibasilar inspiratory crackles, nml RR CV - RRR S1/S2 Abd - Soft, NT/ND, Positive BS Ext - No pedal edema Psych - Nml mood and affect. In good spirits. Skin - Warm and dry Objective Data Vital Signs Vital Signs: Vital Signs - 24 hr 01/05/20 16:00 01/05/20 20:00 01/05/20 21:05 Temperature 98.3 F 98.2 F Pulse Rate 96 92 94 Respiratory Rate 18 22 H Blood Pressure 143/69 H 141/66 H Pulse Oximetry 97 92 93 01/06/20 00:00 01/06/20 02:17 01/06/20 06:00 Temperature 97.8 F 98.0 F Pulse Rate 73 90 94 Respiratory Rate 20 22 H Blood Pressure 120/52
[2020-01-06] MEDS: FUROSEMIDE INJ 40 MG/4 ML VIAL 20 MG IV PUSH (17:08)
[2020-01-06] MEDS: LEVALBUTEROL HFA (*SP) 15 GM INHALER 2 PUFF INHALATION (19:50)
[2020-01-06] MEDS: MELATONIN 5 MG TABLET PO (21:03)
[2020-01-07] VITALS (13 sets, daily range): BP systolic 105–136; BP diastolic 54–79; PULSE 82–106; RESP 18–22; TEMP 36.5–36.9; O2SAT 85–96
[2020-01-07] MEDS: LEVALBUTEROL HFA (*SP) 15 GM INHALER 2 PUFF INHALATION ×3 (01:54→13:50)
[2020-01-07] MEDS: LEVOTHYROXINE SODIUM 50 MCG TABLET PO (05:48)
[2020-01-07] MEDS: CENTRAL LINE FLUSH 10 ML IV PUSH ×2 (05:48→15:18)
[2020-01-07 07:51] LABS: Hemoglobin 9.7 g/dL (12.0-15.0); Mean Corpuscular HGB Conc 32.3 g/dl (32-36); Mean Corpuscular Hemoglobin 36.7 pg (26-34); Mean Corpuscular Volume 113.6 fl (80-100); Mean Platelet Volume 10.4 fl (7.4-10.4); Platelet Count Result 285 k/mm3 (150-375); Red Blood Count 2.64 M/mm3 (4.2-5.4); Red Cell Distribution Width 14.3 % (11.5-14.5); White Blood Count 4.8 K/mm3 (4.5-10.0)
[2020-01-07 08:05] LABS: Anion Gap 4 mmol/L (8-16); Blood Urea Nitrogen 17 mg/dL (7-17); Calcium 8.6 mg/dL (8.4-10.2); Carbon Dioxide 37 mmol/L (22-30); Chloride 98 mmol/L (98-107); Estimated CRCL calculation 62 ml/min; Estimated Glomerular Filt Rate > 60; Glucose 142 mg/dL (65-105); Magnesium 2.2 mg/dL (1.6-2.3); Phosphorus 4.2 mg/dL (2.5-4.5); Potassium 4.1 mmol/L (3.4-5.0); Sodium 139 mmol/L (137-145)
[2020-01-07] MEDS: SPIRONOLACTONE 25 MG TABLET PO (09:00)
[2020-01-07] MEDS: amLODIPine BESYLATE 5 MG TABLET PO (09:00)
[2020-01-07] MEDS: DOCUSATE SODIUM 100 MG CAPSULE 300 MG PO (09:00)
[2020-01-07] MEDS: PANTOPRAZOLE 40 MG TABLET PO (09:00)
[2020-01-07] MEDS: BENZONATATE 100 MG CAPSULE 200 MG PO ×3 (09:00→16:25)
[2020-01-07] MEDS: MAGNESIUM HYDROXIDE SUSP 30 ML UDC PO (09:00)
[2020-01-07] MEDS: predniSONE 10 MG TABLET PO (09:00)
[2020-01-07] MEDS: lisinopriL 10 MG TABLET PO (09:00)
[2020-01-07] MEDS: ENOXAPARIN 40 MG/0.4 ML SYRINGE SUB-Q (09:00)
--- NOTE | 2020-01-07 12:52 | PCRCNOTE ---
HOME O2 SET UP WITH [facility]. WILL BRING TANK TO ROOM PRIOR TO DISCHARGE.
--- NOTE | 2020-01-07 13:00 | HOMEO2EVAL ---
Home Oxygen Evaluation RC: Home Oxygen (O2) Evaluation Start: 01/06/20 15:33 Freq: ONCE Status: Active Protocol: RPE Activity Type Activity Date Activity User E-Sign Co-Sign Detail Recorded Client Recorded Date Recorded By Document 01/07/20 11:30 GARRETT [email or web address] 01/07/20 12:45 GARRETT Document 01/07/20 11:33 GARRETT [email or web address] 01/07/20 12:45 GARRETT Document 01/07/20 11:35 GARRETT [email or web address] 01/07/20 12:45 GARRETT Document 01/07/20 11:37 GARRETT [email or web address] 01/07/20 12:45 GARRETT Document 01/07/20 11:39 GARRETT [email or web address] 01/07/20 12:45 GARRETT Document 01/07/20 11:42 GARRETT [email or web address] 01/07/20 12:45 GARRETT Document 01/07/20 11:45 GARRETT [email or web address] 01/07/20 12:45 GARRETT 01/07/20 01/07/20 01/07/20 11:30 11:33 11:35 Home O2 Evaluation Test Phase Resting Resting Resting Oxygen Delivery Room Air Nasal Cannula Nasal Cannula Oxygen Flow Rate (L/min) 1 2 Pulse Oximetry (90-100 %) 85 L 85 L 86 L Home Oxygen Evaluation Comments Treatment Charges O2 Evaluation 01/07/20 01/07/20 01/07/20 11:37 11:39 11:42 Home O2 Evaluation Test Phase Resting Resting Exercise Oxygen Delivery Nasal Cannula Nasal Cannula Nasal Cannula Oxygen Flow Rate (L/min) 3 4 4 Pulse Oximetry (90-100 %) 87 L 92 90 Home Oxygen Evaluation Comments PT WALKED IN ROOM Treatment Charges 01/07/20 11:45 Home O2 Evaluation Test Phase Resting Oxygen Delivery Nasal Cannula Oxygen Flow Rate (L/min) 4 Pulse Oximetry (90-100 %) 92 Home Oxygen Evaluation Comments PT REQUIRES 4 L AT REST AND WITH ACTIVITY Treatment Charges
--- NOTE | 2020-01-07 18:16 | PM.DS ---
DS: Admitting Diagnosis Admitting Diagnosis Admitting Diagnosis: COVID positive, low oxygen saturation DS: Discharge Diagnosis Discharge Diagnosis (1) Acute respiratory failure with hypoxia: Code(s): J96.01 - Acute respiratory failure with hypoxia Status: Acute Assessment and Plan: Patient with acute respiratory failure with hypoxia related to COVID-19. down to 4 L nasal cannula and assessed for home O2 eval at that rate. She is doing well with sitting in the chair and ambulating in the room. Continue Xopenex and Spiriva. Tessalon for cough. (2) Pneumonia due to COVID-19 virus: Code(s): U07.1 - COVID-19; J12.89 - Other viral pneumonia Status: Acute Assessment and Plan: Chest x-ray reviewed 01/02 showing extensive bilateral airspace disease. Completed Remdesivir 12/27. Received 1 unit convalescent plasma 12/26/19. Per notes, patient refused Decadron stating she was allergic but did agree to take prednisone. She was given equivalent dose of prednisone daily (40 mg). Completed Prednisone x 10 days . Inflammatory markers all returned to normal with D-dimer borderline at 0.59. she was originally diagnosed on 12/17/2019 and admitted to the hospital on the . Thus She is 3 weeks out from her original diagnosis and 2 weeks since admission so she will need no further quarantine (3) Sepsis: Qualifiers: Sepsis type: sepsis due to unspecified organism Sepsis acute organ dysfunction status: with acute organ dysfunction Severe sepsis acute organ dysfunction type: acute respiratory failure Acute respiratory failure type: with hypoxia Severe sepsis shock status: without septic shock Qualified Code(s): A41.9 - Sepsis, unspecified organism; R65.20 - Severe sepsis without septic shock; J96.01 - Acute respiratory failure with hypoxia Code(s): A41.9 - Sepsis, unspecified organism Status: Acute Assessment and Plan: Sepsis present on admission based on criteria of fever, tachypnea, hypoxia due to COVID. Symptoms overall have improved. WBC remains normal. (4) Essential hypertension: Code(s): I10 - Essential (primary) hypertension Status: Acute Assessment and Plan: Patient's blood pressure was reviewed on 01/06 Blood pressure well controlled. Continue current medications with lisinopril, aldactone and Norvasc. was added while here for elevated pressure and will continue 5 mg daily on discharge (5) Hypothyroidism: Code(s): E03.9 - Hypothyroidism, unspecified Status: Acute Assessment and Plan: TSH normal. Continue Synthroid. (6) Elevated LFTs: Code(s): R79.89 - Other specified abnormal findings of blood chemistry Status: Acute Assessment and Plan: The patient's transaminases are elevated on admission but she states that she always has some mildly elevated liver enzymes. AST and ALT trended down. DS: Summary Hospital Course Hospital Course: 79-year-old hypertensive white female admitted with increasing shortness of breath and hypoxia from COVID pneumonia. Originally diagnosed 12/17/2019 and with increasing shortness of breath presented to the hospital. Her had the same illness with minor symptoms. While here she completed 5 day course of remdesivir, ten-day course of prednisone, and received a unit of convalescent plasma. She slowly improved being on high-flow oxygen and taper down to 4 L nasal cannula at discharge. Inflammatory markers returned to normal. Chest x-ray still had diffuse infiltrates and repeat chest x-ray by her primary within 2-3 weeks activity walking as tolerated and we encouraged her to be as active as possible amlodipine 5 mg was added to her medication regime Time Spent with Patient Time attestation: Total time spent providing and/or coordinating discharge services: 35 minutes Exam Narrative: Exam Narrative: condition on discharge blood pressure 130
== END 2020-01-07 18:00 | disposition home or self-care (01) | DRG 871 ==
LOC: ANHED 23:28 → ANHICU 12-25 02:10 → ANH3MEDSUR 01-07 13:49 → ANHICU 01-08 10:00
PROVIDERS: Internal Medicine; Admitting Provider Internal Medicine; Emergency Provider Emergency Medicine; PCP Nurse Practitioner Adult Health; Visit Provider Internal Medicine
DX: A41.89 Other specified sepsis (principal); U07.1 COVID-19; J12.89 Other viral pneumonia; J96.01 Acute respiratory failure with hypoxia; R65.20 Severe sepsis without septic shock; E03.9 Hypothyroidism, unspecified; R79.89 Other specified abnormal findings of blood chemistry; I10 Essential (primary) hypertension; K76.0 Fatty (change of) liver, not elsewhere classified; K76.89 Other specified diseases of liver; K44.9 Diaphragmatic hernia without obstruction or gangrene; K58.9 Irritable bowel syndrome, unspecified; M81.0 Age-related osteoporosis without current pathological fracture; K21.9 Gastro-esophageal reflux disease without esophagitis; D35.00 Benign neoplasm of unspecified adrenal gland; Z98.42 Cataract extraction status, left eye; Z98.41 Cataract extraction status, right eye
CPT/HCPCS: 36415; 36430; 36569; 36600; 71045; 80048; 80053; 80076; 81001; 82565; 82728; 82805; 83615; 83735; 84100; 84439; 84443; 84460; 84480; 84484; 85025; 85027; 85380; 85610; 86140; 86850; 86900; 86901; 87086; 87088; 93005; 94618; 94640; 97110; 97116; 97161; 97165; 97530; 97535; 99285; A9270; C1751; J1650; J1940; J2405; J7512; P9059

== ENCOUNTER 2020-02-05 14:35 | Outpatient (CLI) | payer MEDICARE, SELFPAY ==
--- NOTE | 2020-02-05 | ECHO_ITS ---
Patient Info Name: Venessa Villar Age: 79 years : 1940 Gender: Female Ht: 61 in Wt: 152 lbs BSA: 1.75 m2 HR: 98 bpm BP: 160 / 73 mmHg Heart Rhythm: Sinus Rhythm Technical Quality: Good Exam Date: 02/05/2020 3:32 PM Exam Location: [facility] Pulmonary Patient Status: Outpatient Admit Date: 02/05/2020 Staff Ordering Physician: WarrenMervat NP Medical Donation Professional: Bindu Antonio RDCS Attending Provider: JasonMervat NP Exam Type: CA echo doppler color flow Study Info Indications - ON CONTINUOUS O2 4 LITERS - covid 19 Complete two-dimensional, color flow and Doppler transthoracic echocardiogram is performed. Summary 1. Complete two-dimensional, color flow and Doppler transthoracic echocardiogram is performed. 2. Left ventricular chamber dimension is normal. 3. Left ventricular systolic function is normal, estimated at 60-65%. 4. There is mildly increased left ventricular wall thickness. 5. The left ventricular diastolic function is grade I diastolic dysfunction. 6. Left atrial chamber dimension is mildly enlarged. 7. Right atrial chamber dimension is mildly enlarged. 8. There is mild mitral valve regurgitation. 9. There is mild tricuspid valve regurgitation. 10. There is mild pulmonic regurgitation. 11. The aortic root size at the sinus of Valsalva is mildly dilated. Left Ventricle Left ventricular chamber dimension is normal. Left ventricular systolic function is normal, estimated at 60-65%. There is mildly increased left ventricular wall thickness. The left ventricular diastolic function is grade I diastolic dysfunction. Right Ventricle Right ventricular chamber dimension is normal. Right ventricular systolic function is normal. Left Atria Left atrial chamber dimension is mildly enlarged. Right Atria Right atrial chamber dimension is mildly enlarged. Atrial Septum Intact interatrial septum visualized by color flow imaging. Aortic Valve The aortic valve is trileaflet. There is mild aortic valve sclerosis. There is no aortic valve stenosis. There is trace aortic valve regurgitation. Pulmonic Valve The pulmonic valve is normal. There is no pulmonic valve stenosis. There is mild pulmonic regurgitation. Mitral Valve The mitral valve has normal leaflets. There is no mitral valve stenosis. There is mild mitral valve regurgitation. Tricuspid Valve The tricuspid valve leaflets are normal. There is no significant tricuspid valve stenosis. There is mild tricuspid valve regurgitation. No pulmonary hypertension, estimated pulmonary arterial systolic pressure is 34 mmHg. Pericardium/Pleural The pericardium appears normal. There is trivial pericardial effusion. Inferior Vena Cava Normal inferior vena cava with >50% collapse upon inspiration consistent with normal right atrial pressure, 5 mmHg. Aorta The aortic root size at the sinus of Valsalva is mildly dilated. The prox ascending aorta size is normal. Left Ventricular Outflow Tract Name Value Normal LVOT 2D LVOT Diameter 2.0 cm LVOT Doppler LVOT Peak Gradient 4 mmHg
== END 2020-02-05 14:36 | disposition home or self-care (01) ==
LOC: ANHCARD 14:37
PROVIDERS: PCP Nurse Practitioner Adult Health; Visit Provider Nurse Practitioner Adult Health
DX: U07.1 COVID-19 (principal); I51.7 Cardiomegaly
CPT/HCPCS: 93306

== ENCOUNTER 2020-03-16 16:04 | Outpatient (CLI) | payer MEDICARE, SELFPAY ==
--- NOTE | ~2020-03-16 | CT_ITS ---
EXAMINATION: CT chest wo con EXAM DATE: 03/16/2020 16:39 INDICATION: Pulmonary Fibrosis Due To Covid-19 Virus. TECHNIQUE: Spiral CT of the chest without contrast. Axial, coronal and sagittal images were reviewe d. Coronal maximum intensity pixel images of chest reviewed. The dose-length product (DLP) for this examination was 187.98 mGy-cm. The exposure was tailored according to patient size (auto mA exposur e control), and iterative reconstruction (ASIR) was used as additional dose reduction technique. Comp arison is made to prior examination from 05/21/2011. FINDINGS: There is moderate amount of irregular septal thickening seen with peripheral bibasilar pred ominance and areas of groundglass opacity. This is new compared to prior study, differential diagnosi s including hypersensitivity pneumonitis or nonspecific interstitial pneumonitis (NSIP) pattern inter stitial lung disease which can be caused by collagen vascular disease, medications/drugs, prior viral infection (COVID-19), or can be idiopathic. There are no pleural or pericardial effusions. Tracheobronchial tree is patent. There is no media stinal, hilar or axillary lymphadenopathy. There is no pneumothorax. Heart normal in size. Ther e is mild coronary arterial calcification, arterial sclerosis. There is low density left adrenal glan d lesion measuring 2.9 cm, consistent with adenoma. There is small sliding gastroesophageal hiatal he rnia. There is moderate chronic appearing T12 burst fracture. IMPRESSION: 1. Moderate interstitial lung disease. 2. Small hiatal hernia. 3. Left adrenal adenoma. Reviewed, dictated and finalized at location A. 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
== END 2020-03-16 16:05 | disposition home or self-care (01) ==
PROVIDERS: PCP Nurse Practitioner Adult Health; Visit Provider Internal Medicine Critical Care Medicine
DX: J84.9 Interstitial pulmonary disease, unspecified (principal); K44.9 Diaphragmatic hernia without obstruction or gangrene; D35.02 Benign neoplasm of left adrenal gland
CPT/HCPCS: 71250

== ENCOUNTER 2020-04-20 14:35 | Outpatient (CLI) | payer MEDICARE, SELFPAY ==
--- NOTE | 2020-04-20 17:00 | WPDSIXMINUTE ---
Six Minute Walk This is a 6 minutes walk for exertional dyspnea. Findings: The patient's resting room air oxygen saturation measured by pulse oximetry was 98% and her heart rate was 88 bpm. Patient ambulated for 427 meters. Oxygen saturation malfunctioned during test so saturations not measured during test. At end of test ssaturations 90% and heart rate at the end of the study was 108 bpm. There are no prior studies for comparison.
--- NOTE | 2020-04-20 17:03 | WPDPFTINT ---
PFT Interpretation This is a pulmonary function test with pre and post-bronchodilator spirometry, plethysmography and diffusing capacity. The test was performed and results interpreted in accordance with the 2019 and 2005 ATS/ERS Task Force guidelines respectively using the Ashvin/Calvin reference equations. Findings: Spirometry: The contour the inspiratory and expiratory flow tracing are normal. The pre bronchodilator FVC was 1.98 L, 88% predicted. The pre bronchodilator FEV1 is 1.58 L, 104% predicted. The FEV1: FVC ratio is 80%. The post bronchodilator FVC is 1.94 L, representing a 2% decrease. The post bronchodilator FEV1 is 1.67 L, representing a 6% decrease. Plethysmography the total lung capacity is 3.34 L, 81% predicted. Functional residual capacity is 1.30 L, 57% predicted. The residual volume is 1.24 L, 70% predicted. Diffusing capacity the absolute diffusing capacity is 14.7, 84% predicted. The diffusing capacity corrected for alveolar volume is 4.20, 126% predicted. Impression: The spirometry is normal without evidence of an obstructive abnormality. There is no significant improvement after inhaling a single dose of albuterol. There is reduction in the residual volume and functional residual volume with a normal total lung capacity. This is an abnormal but nonspecific lung volume pattern. The absolute diffusion capacity is normal and increased when corrected for alveolar volume. There are no prior studies for comparison
== END 2020-04-20 14:36 | disposition home or self-care (01) ==
PROVIDERS: PCP Nurse Practitioner Adult Health; Visit Provider Internal Medicine Critical Care Medicine
DX: U07.1 COVID-19 (principal); J12.82 Pneumonia due to coronavirus disease 2019; J84.10 Pulmonary fibrosis, unspecified
CPT/HCPCS: 94060; 94726; 94729

== ENCOUNTER 2020-05-06 12:58 | Outpatient (CLI) | payer MEDICARE, SELFPAY ==
--- NOTE | ~2020-05-06 | MM_ITS ---
EXAMINATION: MM screening no BI w alayna HISTORY: Screening mammogram TECHNIQUE: Craniocaudal and mediolateral oblique 3-D tomosynthesis images were obtained and synthetic 2-D images were generated. CAD analysis was submitted and interpreted. COMPARISON: 04/22/2017, 03/15/2016, 03/09/2015 bilateral digital screening mammogram examinations BREAST PARENCHYMAL COMPOSITION: There are scattered areas of fibroglandular density. FINDINGS: Scattered bilateral benign calcifications. There is no evidence of suspicious mass, calcifi cation, or architectural distortion to suggest malignancy in either breast. There has been no suspici ous interval change. IMPRESSION: 1. No mammographic evidence of malignancy. 2. Recommend routine screening mammography in one year. BI-RADS Category 2: Benign finding(s). Reviewed, dictated and finalized at location A. 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
== END 2020-05-06 12:59 | disposition home or self-care (01) ==
LOC: ANHIMG 13:01
PROVIDERS: PCP Nurse Practitioner Adult Health; Visit Provider Nurse Practitioner Adult Health
DX: Z12.31 Encounter for screening mammogram for malignant neoplasm of breast (principal)
CPT/HCPCS: 77063; 77067

== ENCOUNTER 2020-08-03 12:52 | Outpatient (CLI) | payer MEDICARE, SELFPAY ==
--- NOTE | ~2020-08-03 | CT_ITS ---
EXAMINATION:CT diagnostic chest wo con DATE: 08/03/2020 13:22 INDICATION: Interstitial lung disease. TECHNIQUE: Computed tomography (CT) of the chest was performed without intravenous contrast. Automate d exposure control and iterative reconstruction technique were employed. The dose-length product (DLP ) was 208.04 mGy-cm. COMPARISON: Chest CT 03/16/2020, CT abdomen and pelvis 06/12/2017 FINDINGS: The lung volumes are small. A calcified right lung nodule and calcified right hilar lymph n odes are consistent with old granulomatous disease. There are widespread groundglass opacities in the lungs. There are is widespread septal thickening in the lungs with a peripheral predominance. No bro nchiectasis or honeycombing. No pleural effusion. The heart size is normal. There are coronary artery calcifications. No pericardial effusion. The central pulmonary arteries are enlarged, consistent wit h pulmonary arterial hypertension. There is diffuse hepatic steatosis. There is a small sliding hiata l hernia. There is a 3.0 cm mass in left adrenal gland measuring low attenuation, consistent with an adenoma. There is levoscoliosis of upper thoracic spine and dextroscoliosis of lower thoracic spine. There is a chronic compression fracture of T6. There is a burst fracture of T9 with 2/5 loss of heigh t and retropulsion of bone 3 mm into central spinal canal, likely acute or subacute. There is a chron ic burst fracture of T12. IMPRESSION: 1. Diffuse lung disease with mild improvement, consistent with chronic interstitial lung disease in a pattern of nonspecific interstitial pneumonia (NSIP). 2. Small sliding hiatal hernia. 3. Acute versus subacute T9 burst fracture. Reviewed, dictated and finalized at location A. IMPRESSION: 1. Diffuse lung disease with mild improvement, consistent with chronic intersti tial lung disease in a pattern of nonspecific interstitial pneumonia (NSIP). 2. Small sliding hiatal hernia. 3. Acute versus subacute T9 burst fracture.
== END 2020-08-03 12:53 | disposition home or self-care (01) ==
PROVIDERS: PCP Nurse Practitioner Adult Health; Visit Provider Nurse Practitioner Family
DX: J84.9 Interstitial pulmonary disease, unspecified (principal); B94.8 Sequelae of other specified infectious and parasitic diseases; K44.9 Diaphragmatic hernia without obstruction or gangrene; S22.071A Stable burst fracture of T9-T10 vertebra, initial encounter for closed fracture
CPT/HCPCS: 71250

== ENCOUNTER 2020-08-07 13:37 | Outpatient (CLI) | payer MEDICARE, SELFPAY ==
--- NOTE | ~2020-08-07 | DEXA_ITS ---
Bone Density Report Name: Venessa Villar Age: 80 Sex: Female Ethnicity: White Date of : 1940 Indication: osteopenia; monitoring treatment; height loss; prior fracture; hysterectomy; Referring Provider: Jaskaran Barbosa Study: Bone densitometry was performed. Exam Date: August 07, 2020 Accession number: [id number] Bone Density: Region BMD T-score Z-score Classification AP Spine (L1-L4) 0.822 -2.0 0.6 Osteopenia Femoral Neck (Left) 0.498 -3.2 -0.9 Osteoporosis Total Hip (Left) 0.733 -1.7 0.3 Osteopenia Total Hip Bilateral Avg 0.711 -1.9 0.1 Osteopenia Femoral Neck (Right) 0.542 -2.8 -0.5 Osteoporosis Total Hip (Right) 0.688 -2.1 -0.1 Osteopenia World Health Organization criteria for BMD impression classify patients as: Normal (T-score at or above -1.0), Osteopenia (T-score between -1.0 and -2.5), or Osteoporosis (T-score at or below -2.5). 10-year Fracture Risk: FRAX not reported because: Some T-score for Spine Total or Hip Total or Femoral Neck at or below -2.5 Prior hip or vertebral fracture Treated for osteopor Previous Exams: Region Exam Age BMD T-score BMD Change BMD Change Date g/cm2 vs Baseline vs Previous AP Spine(L1-L4) 08/07/2020 80 0.822 -2.0 -0.209(-20.3%) -0.027(-3.2%)* 01/03/2018 77 0.849 -1.8 -0.182(-17.6%) -0.024(-2.8%)* 03/14/2014 74 0.873 -1.6 -0.157(-15.3%) 0.058(7.2%)# 01/23/2012 71 0.815 -2.1 -0.216(-20.9%) -0.142(-14.8%) 09/09/2009 69 0.957 -0.8 -0.074(-7.2%)* -0.029(-3.0%)* 02/16/2007 67 0.986 -0.6 -0.045(-4.3%)* 0.061(6.6%)* 02/15/2005 65 0.925 -1.1 -0.106(-10.3%) -0.106(-10.3%) 07/17/2002 62 1.031 -0.1 Total Hip(Left) 08/07/2020 80 0.733 -1.7 -0.022(-2.9%)# 0.029(4.1%)* 01/03/2018 77 0.704 -2.0 -0.051(-6.7%)# -0.031(-4.3%)* 03/14/2014 74 0.735 -1.7 -0.019(-2.6%)# -0.048(-6.2%)# 01/23/2012 71 0.783 -1.3 0.029(3.8%)# 0.041(5.5%)# 09/09/2009 69 0.742 -1.6 -0.012(-1.6%) -0.003(-0.4%) 02/16/2007 67 0.745 -1.6 -0.009(-1.2%) -0.030(-3.8%)* 02/15/2005 65 0.775 -1.4 0.020(2.7%) 0.020(2.7%) 07/17/2002 62 0.755 -1.5 Total Hip(Right) 08/07/2020 80 0.688 -2.1 -0.067(-8.8%)# 0.003(0.5%) 01/03/2018 77 0.685 -2.1 -0.070(-9.3%)# -0.057(-7.7%)* 03/14/2014 74 0.742 -1.6 -0.013(-1.7%)# -0.019(-2.5%)# 01/23/2012 71 0.761 -1.5 0.006(0.8%)# 0.003(0.4%)# 09/09/2009 69 0.758 -1.5 0.003(0.4%) 0.020(2.7%) 02/16/2007 67 0.738 -1.7 -0.017(-2.2%) -0.002(-0.2%) 02/15/2005 65 0.739 -1.7 -0.015(-2.0%) -0.015(-2.0%) 07/17/2002 62 0.755 -1.5 ----
== END 2020-08-07 13:38 | disposition home or self-care (01) ==
PROVIDERS: PCP Nurse Practitioner Adult Health; Visit Provider Obstetrics & Gynecology
DX: Z78.0 Asymptomatic menopausal state (principal); M85.89 Other specified disorders of bone density and structure, multiple sites; M81.0 Age-related osteoporosis without current pathological fracture
CPT/HCPCS: 77080

== ENCOUNTER 2020-09-02 13:56 | Emergency (ER) | payer MEDICARE, SELFPAY ==
[2020-09-02 14:07] VITALS: BP 154/65; PULSE 98; RESP 16; TEMP 36.9; O2SAT 96
--- NOTE | 2020-09-02 14:21 | ED.GENADULT ---
HPI - General Adult General Chief complaint: Eye Problems Stated complaint: R EYE SWELLING/REDNESS Time Seen by Provider: 09/02/20 14:21 Source: patient and RN notes reviewed Mode of arrival: ambulatory Limitations: no limitations History of Present Illness HPI narrative: 80-year-old female presents with complaints of right upper eyelid pain, swelling, and redness for the past 4 days. Venessa reports increasing swelling and redness daily. Erythromycin ointment and warm compresses without relief. Believes she has a stye. No drainage. Exacerbating factors consists of photophobia. No relieving factors is closing eyes. Denies sensation of foreign body, blurred vision, double vision, or pain of eye with movement. Does not wear glasses or contact lenses. Denies fever. LMP hysterectomy. Remains active. The patient reports she was diagnosed with COVID-19 December 24, 2019. The patient reports she received 2 Moderna COVID-19 vaccines. The patient reports she is not waiting for the results of a COVID-19 lab test. The patient reports she do not have chills, weakness, or fatigue. The patient reports she do not have a new or worsening cough or shortness of breath. Denies chest pain. The patient reports she do not have any rhinorrhea, congestion, sore throat, loss of taste or smell, nausea, vomiting, abdominal pain, and diarrhea. Tolerating po intake well. Denies recent traveling. Denies concerns for COVID-19 or exposures. At this time, patient is not suspected of having COVID-19. Some parts of this dictation were generated by voice recognition software and may contain typographical and/or grammatical inaccuracies. Related Data Home Medications Medication Instructions Recorded Confirmed calcium carb 300 mg-D3 800 1 tablet PO DAILY 04/11/19 05/28/20 unit-mag ox 25 mg-endoscopy nurse 0.5 mg-danny-Zn tablet lisinopril 10 mg tablet 10 mg PO DAILY 04/11/19 05/28/20 spironolactone 25 mg tablet 25 mg PO DAILY 04/11/19 05/28/20 levothyroxine 50 mcg PO DAILY 12/24/19 05/28/20 Allergies Allergy/AdvReac Type Severity Reaction Status Date / Time cefdinir Allergy Unknown Unknown Verified 05/28/20 14:14 clarithromycin Allergy Unknown Unknown Verified 05/28/20 14:14 clindamycin Allergy Unknown Unknown Verified 05/28/20 14:14 codeine Allergy Unknown Unknown Verified 05/28/20 14:14 dexamethasone Allergy Unknown Unknown Verified 05/28/20 14:14 doxycycline Allergy Unknown Unknown Verified 05/28/20 14:14 morphine Allergy Unknown Unknown Verified 05/28/20 14:14 tobramycin Allergy Unknown Unknown Verified 05/28/20 14:14 cephalexin AdvReac Mild YEAST Verified 05/28/20 14:14 INFECTION Review of Systems Review of Systems: Narrative: CONSTITUTIONAL: Denies fever, chills, sweats. EYES: Denies visual changes, foreign body sensation, discharge. Complains of right upper eyelid pain, swelling, and redness. ENT: Denies rhinorrhea, congestion, sore throat, otalgia. CARDIOVASCULAR: Denies chest pain, palpitations, edema. RESPIRATORY: Denies dyspnea, wheezing, cough. GASTROINTESTINAL: Denies abdominal pain, nausea, vomiting, diarrhea. SKIN: Denies rash or itching. MUSCULOSKELETAL: Denies acute back pain, joint pain, or myalgia. NEUROLOGIC: Denies numbness or focal weakness. PSYCHIATRIC: Denies anxiety or depression. All systems reviewed & are unremarkable except as noted in HPI and below PMFSH Past Medical History Medical History (Updated 09/02/20 @ 15:54 by FRANCISCO Ho) Acid reflux Acute respiratory failure with hypoxia Adrenal adenoma benign COVID-19 virus infection DVT prophylaxis Elevated LFTs Hepatic steatosis and liver cyst Hiatal hernia Hypertension Hypothyroidism ILD (interstitial lung disease) Irritable bowel Migraines Obesity Osteoporosis Pneumonia due to COVID-19 virus Vulvar inflammation Surgical History Surgical History History of ankle surgery (~2000)
== END 2020-09-02 15:00 | disposition home or self-care (01) ==
PROVIDERS: Emergency Provider Nurse Practitioner Family; PCP Nurse Practitioner Adult Health
DX: S00.211A Abrasion of right eyelid and periocular area, initial encounter (principal); X58.XXXA Exposure to other specified factors, initial encounter; K21.9 Gastro-esophageal reflux disease without esophagitis; Z86.16 Personal history of COVID-19; K76.0 Fatty (change of) liver, not elsewhere classified; I10 Essential (primary) hypertension; E03.9 Hypothyroidism, unspecified; M81.0 Age-related osteoporosis without current pathological fracture; Z98.42 Cataract extraction status, left eye; Z98.41 Cataract extraction status, right eye
CPT/HCPCS: 99213; A9270; G0463

== ENCOUNTER 2021-03-31 10:55 | Outpatient (CLI) | payer MEDICARE, SELFPAY ==
--- NOTE | ~2021-03-31 | CT_ITS ---
EXAMINATION:CT diagnostic chest wo con DATE: 03/31/2021 11:09 INDICATION: Interstitial pulmonary disease, unspecified. TECHNIQUE: Computed tomography (CT) of the chest was performed without intravenous contrast. Automate d exposure control and iterative reconstruction technique were employed. The dose-length product (DLP ) was 169.91 mGy-cm. COMPARISON: Chest CT 08/03/2020 FINDINGS: The lung volumes are small. There are groundglass opacities and septal thickening involving all lobes. No bronchiectasis or honeycombing. Calcified right lung nodules and calcified right hilar lymph nodes are consistent with old granulomatous disease. Cardiomegaly is noted. No pericardial eff usion. There are coronary artery calcifications. There is a 2.9 cm mass in left adrenal gland measuri ng low-attenuation, consistent with an adenoma. There is a small sliding hiatal hernia. There is mode rate thoracic spondylosis. There are chronic burst fractures of T9 and T12. There is a chronic compre ssion fracture of T6. There is levoscoliosis of upper thoracic spine and extensive scoliosis of mid t horacic spine. IMPRESSION: 1. Stable diffuse lung disease, consistent with interstitial lung disease in a pattern of nonspecific interstitial pneumonia (NSIP). Reviewed, dictated and finalized at location D. OMER ADVISOR
== END 2021-03-31 10:56 | disposition home or self-care (01) ==
LOC: ANHIMG 10:59
PROVIDERS: PCP Nurse Practitioner Adult Health; Visit Provider Nurse Practitioner Family
DX: U07.1 COVID-19 (principal); J84.9 Interstitial pulmonary disease, unspecified; I25.10 Atherosclerotic heart disease of native coronary artery without angina pectoris; M41.9 Scoliosis, unspecified; S22.071A Stable burst fracture of T9-T10 vertebra, initial encounter for closed fracture; S22.081A Stable burst fracture of T11-T12 vertebra, initial encounter for closed fracture; K44.9 Diaphragmatic hernia without obstruction or gangrene; M47.814 Spondylosis without myelopathy or radiculopathy, thoracic region
CPT/HCPCS: 71250

== ENCOUNTER 2021-09-28 13:45 | Emergency (ER) | payer MEDICARE, SELFPAY ==
--- NOTE | ~2021-09-28 | CT_ITS ---
EXAMINATION: CT brain wo con INDICATION: Head injury COMPARISON: None TECHNIQUE: Standard unenhanced head CT. The dose-length product (DLP) was 605.33 mGy-cm. The mA was a djusted according to patient size. Iterative reconstruction technique was employed. FINDINGS: There is no acute intraparenchymal hemorrhage. No evidence of mass lesion. No evidence of a cute infarction. There is mild periventricular and subcortical hypodensity probably related to small vessel ischemic disease. There is mild prominence of the sulci and ventricles related to cerebral atr ophy. Intracranial calcified cerebral atherosclerosis is noted. There are no extra-axial collections. There is no mass effect or midline shift. Changes in the globes are likely from ocular lens surgery. The visualized sinuses and mastoid air cells are well aerated. IMPRESSION: 1. No acute intracranial abnormality. 2. Age related findings. Reviewed, dictated and finalized at location A.
--- NOTE | ~2021-09-28 | XR_ITS ---
EXAMINATION: XR shoulder LT min 2V INDICATION: Left shoulder pain after fall TECHNIQUE: Three views of the left shoulder are submitted. COMPARISON: None FINDINGS: Normal alignment. No fracture. There is moderate osteoarthritis of the acromioclavicular an d glenohumeral joints. Soft tissues are unremarkable. IMPRESSION: 1. No acute osseous abnormality. Reviewed, dictated and finalized at location A.
--- NOTE | ~2021-09-28 | XR_ITS ---
EXAMINATION: XR wrist LT min 3V DATE: 09/28/2021 14:39 INDICATION: Left wrist pain TECHNIQUE: Posteroanterior, ulnar deviation, oblique, and lateral views of the left wrist were obtain ed. COMPARISON: None available FINDINGS: There is no fracture, dislocation, or subluxation. The bonesand soft tissues are normal. Th ere is mild osteoarthritis of the wrist. IMPRESSION: 1. No acute osseous abnormality. Reviewed, dictated and finalized at location A.
--- NOTE | ~2021-09-28 | CT_ITS ---
EXAMINATION: CT facial bones wo con DATE: 09/28/2021 14:11 INDICATION: Facial pain, laceration TECHNIQUE: Computed tomography (CT) of the facial bones and maxillofacial region was performed withou t intravenous contrast. The dose-length product (DLP) was 424.73 mGy-cm. Automated exposure control a nd iterative reconstruction technique were employed. COMPARISON: None. FINDINGS: Streak artifact from dental hardware somewhat limits evaluation. No facial fracture is iden tified. The paranasal sinuses are clear. There is severe spondylosis of the visualized cervical spine without acute fracture identified. Changes in the globes are likely from ocular lens surgery. IMPRESSION: 1. No facial fracture identified. Reviewed, dictated and finalized at location A.
--- NOTE | ~2021-09-28 | XR_ITS ---
EXAMINATION: XR elbow LT min 3V DATE: 09/28/2021 14:39 INDICATION: Left elbow pain, initial encounter TECHNIQUE: Anteroposterior, two oblique and lateral views of the left elbow were obtained. COMPARISON: None. FINDINGS: There is an acute, traumatic, closed, comminuted intra-articular fracture of the distal hum erus. The fracture fragments are approximately displaced and overriding. Alignment of the fracture fr agments with the ulna and distal radius appears to be maintained. A joint effusion is present. IMPRESSION: 1. Comminuted intra-articular fracture of the distal humerus with proximal migration of the fracture fragments. Reviewed, dictated and finalized at location A. IMPRESSION: 1. Comminuted intra-articular fracture of the distal humerus with proximal migr ation of the fracture fragments.
[2021-09-28 13:49] VITALS: BP 106/69; PULSE 97; RESP 16; TEMP 36.2; O2SAT 96
--- NOTE | 2021-09-28 13:53 | ED.FALL ---
HPI - Fall General Chief Complaint: Fall Stated Complaint: GLF History of Present Illness HPI Narrative: Pt tripped and fell and landed on left arm and face. Pt denies LOC or neck pain. Pt complains of pain to entire left arm and left side of face. Related Data Home Medications Medication Instructions Recorded Confirmed calcium carb 300 mg-D3 800 1 tablet PO DAILY 04/11/19 06/04/21 unit-mag ox 25 mg-copy chief 0.5 mg-danny-Zn tablet (Caltrate + D3 Plus Minerals) lisinopril 10 mg tablet 10 mg PO DAILY 04/11/19 06/04/21 spironolactone 25 mg tablet 25 mg PO DAILY 04/11/19 06/04/21 levothyroxine 50 mcg tablet 50 mcg PO DAILY 12/24/19 06/04/21 triamcinolone acetonide 0.1 % 1 applic topical BID 11/23/20 06/04/21 topical ointment Allergies Allergy/AdvReac Type Severity Reaction Status Date / Time cefdinir Allergy Unknown Unknown Verified 09/28/21 13:53 clarithromycin Allergy Unknown Unknown Verified 09/28/21 13:53 clindamycin Allergy Unknown Unknown Verified 09/28/21 13:53 codeine Allergy Unknown Unknown Verified 09/28/21 13:53 dexamethasone Allergy Unknown Unknown Verified 09/28/21 13:53 doxycycline Allergy Unknown Unknown Verified 09/28/21 13:53 morphine Allergy Unknown Unknown Verified 09/28/21 13:53 tobramycin Allergy Unknown Unknown Verified 09/28/21 13:53 cephalexin AdvReac Mild YEAST Verified 09/28/21 13:53 INFECTION Review of Systems Review of Systems: All systems reviewed & are unremarkable except as noted in HPI and below PMFSH Past Medical History Medical History Acid reflux Acute respiratory failure with hypoxia Adrenal adenoma benign COVID-19 virus infection DVT prophylaxis Elevated LFTs Hepatic steatosis and liver cyst Hiatal hernia Hypertension Hypothyroidism ILD (interstitial lung disease) Irritable bowel Migraines Obesity Osteoporosis Pneumonia due to COVID-19 virus Vulvar inflammation Surgical History Surgical History History of ankle surgery (~2000) ORIF right ankle History of bilateral cataract extraction History of carpal tunnel surgery of right wrist (~2015) History of colonoscopy with polypectomy most recent December 2018 with edematous polyps History of hemorrhoidectomy (~2011) History of medial meniscus repair of right knee (~2014) History of reconstructive repair of rectocele (~1995) History of vaginal hysterectomy (~1995) without oophorectomy S/P laparoscopic-assisted sigmoidectomy (~08/2018) due to chronic diverticulitis Family History Family History Sibling Hypertension Hyperlipidemia Thyroid disease it sounds as if the patient sister likely had Graves disease with a thyroidectomy and then became ill because her thyroid hormone was not replaced. Acute myocardial infarction Brother early-onset Artificial cardiac pacemaker brother Mother Hypertension Thyroid disease It sounds as if her mother likely had Graves disease Father Emphysema lung Grandparent Lung cancer Other Carcinoma of colon Family history of malignant neoplasm of breast Family history of pancreatic cancer Social History Social History Social History: The patient lives with her of 54 years. They raised a son and a daughter. Their son as 3 daughters and the daughter has a son and a daughter. She is a lifelong nonsmoker. She did have a lot of secondhand smoke exposure as a child. She rarely drinks alcohol and only in small amounts. Primary care provider: Mervat Kelley NP Smoking status: Never smoker Second hand tobacco smoke exposure: Yes Alcohol intake: current Alcohol use details: Only rare alcohol use in small amounts. 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
[2021-09-28] MEDS: fentaNYL CITRATE INJ (*CRX) 100 MCG/2 ML VIAL 25 MCG IV PUSH (15:07)
[2021-09-28 18:02] VITALS: BP 120/73; PULSE 75; RESP 16; O2SAT 98
[2021-09-28] MEDS: fentaNYL CITRATE INJ (*CRX) 250 MCG/5 ML VIAL 25 MCG IV PUSH (18:11)
== END 2021-09-28 19:00 | disposition short-term general hospital (02) ==
PROVIDERS: Emergency Provider Emergency Medicine; PCP Nurse Practitioner Adult Health
DX: S01.511A Laceration without foreign body of lip, initial encounter (principal); S42.492A Other displaced fracture of lower end of left humerus, initial encounter for closed fracture; I10 Essential (primary) hypertension; E03.9 Hypothyroidism, unspecified; J84.9 Interstitial pulmonary disease, unspecified; K21.9 Gastro-esophageal reflux disease without esophagitis; K58.9 Irritable bowel syndrome, unspecified; K44.9 Diaphragmatic hernia without obstruction or gangrene; E66.9 Obesity, unspecified; M81.0 Age-related osteoporosis without current pathological fracture; Z68.29 Body mass index [BMI] 29.0-29.9, adult; Z86.16 Personal history of COVID-19; Z87.01 Personal history of pneumonia (recurrent); Z98.42 Cataract extraction status, left eye; Z98.41 Cataract extraction status, right eye; Z90.710 Acquired absence of both cervix and uterus; W01.0XXA Fall on same level from slipping, tripping and stumbling without subsequent striking against object, initial encounter
CPT/HCPCS: 29105; 70450; 70486; 73030; 73080; 73110; 96374; 96376; 99285; J3010

== ENCOUNTER 2022-02-18 15:20 | Outpatient (CLI) | payer MEDICARE, SELFPAY ==
--- NOTE | ~2022-02-18 | XR_ITS ---
XR knee RT 3V DATE: 02/18/2022 15:59 INDICATION: Posterior knee pain. No injury. TECHNIQUE: AP, lateral, sunrise views COMPARISON: 03/2014 MR right knee 04/15/2013 right knee FINDINGS: There is prominent loss of height of medial compartment joint space with periarticular spur ring at the medial compartment. Lateral compartment joint space appears well preserved. There is mild periarticular spurring of the patellofemoral compartment. Osteopenia. No fracture or dislocation, periosteal reaction or bone destruction or joint effusion is evident. No radiopaque intra-articular loose body or chondrocalcinosis is noted. IMPRESSION: Osteoarthritis involving particularly the medial and patellofemoral compartments Osteopenia Reviewed, dictated and finalized at location B. CENTER SUPPORT CONSULTANT
== END 2022-02-18 15:21 | disposition home or self-care (01) ==
PROVIDERS: PCP Nurse Practitioner Adult Health; Visit Provider Nurse Practitioner Adult Health
DX: M25.561 Pain in right knee (principal); M17.11 Unilateral primary osteoarthritis, right knee; M85.861 Other specified disorders of bone density and structure, right lower leg
CPT/HCPCS: 73562

== ENCOUNTER 2022-03-02 10:58 | Outpatient (CLI) | payer MEDICARE, SELFPAY ==
--- NOTE | ~2022-03-02 | MM_ITS ---
EXAMINATION: MM screening [facility] BI w alayna HISTORY: Screening mammogram TECHNIQUE: Craniocaudal and mediolateral oblique 3-D tomosynthesis images were obtained and synthetic 2-D images were generated. CAD analysis was submitted and interpreted. COMPARISON: 05/06/2020, 04/10/2017, 03/15/2016 BREAST PARENCHYMAL COMPOSITION: There are scattered areas of fibroglandular density. FINDINGS: No suspicious mass, calcification, or architectural distortion are identified in either priscilla ast to suggest malignancy. There has been no suspicious interval change. IMPRESSION: 1. No mammographic evidence of malignancy. 2. Recommend routine screening mammography in one year. BI-RADS Category 2: Benign finding(s). Reviewed, dictated and finalized at location A. CH ENGINEER
== END 2022-03-02 10:59 | disposition home or self-care (01) ==
PROVIDERS: PCP Nurse Practitioner Adult Health; Visit Provider Obstetrics & Gynecology
DX: Z12.31 Encounter for screening mammogram for malignant neoplasm of breast (principal)
CPT/HCPCS: 77063; 77067

== ENCOUNTER 2022-04-28 14:06 | Outpatient (CLI) | payer MEDICARE, SELFPAY ==
--- NOTE | ~2022-04-28 | CT_ITS ---
EXAMINATION: CT chest high resolution wo in DATE: 04/28/2022 14:58 INDICATION: Interstitial lung disease. Post Covid. TECHNIQUE: Computed tomography (CT) of the chest was performed without intravenous contrast. The dose -length product was 153.52 mGy-cm. Automated exposure control and iterative reconstruction technique were employed. COMPARISON: Comparison to multiple prior studies sequentially, with oldest reviewed study dated 04/16. FINDINGS: Cardiomegaly. No significant pleural or pericardial effusion. There is a low-density lesion in the right hepatic lobe measuring 1.3 cm. Recommend correlation with ultrasound. There is atherosc lerosis of the aorta and coronary arteries. Stable low-density left adrenal mass measuring 3 cm, like ly benign adenoma. Small sliding hiatal hernia. Chronic burst fractures of T9 and T12. Mild compressi on fracture of T6. There is stable areas of septal thickening and groundglass opacification periphera lly. No endobronchial lesions. Calcified granuloma right lung base. There is a small 2 mm nodule in t he left upper lobe, likely benign. IMPRESSION: 1. Stable diffuse lung disease with a pattern consistent with nonspecific interstitial pneumonia. Reviewed, dictated and finalized at location A. BILITATION CLERK IMPRESSION: 1. Stable diffuse lung disease with a pattern consistent with nonspecific inter stitial pneumonia.
== END 2022-04-28 14:07 | disposition home or self-care (01) ==
PROVIDERS: PCP Internal Medicine; Visit Provider Internal Medicine Critical Care Medicine
DX: J84.9 Interstitial pulmonary disease, unspecified (principal); R06.02 Shortness of breath
CPT/HCPCS: 71250

== ENCOUNTER 2022-08-09 12:41 | Outpatient (CLI) | payer MEDICARE, SELFPAY ==
--- NOTE | ~2022-08-09 | DEXA_ITS ---
Bone Density Report Name: MEIR GARCIA Age: 82 Sex: Female Ethnicity: White Date of : 1940 Indication: osteopenia; monitoring treatment; height loss; prior fracture; hysterectomy; postmenopausal Referring Provider: JACKIE JUSTICE Study: Bone densitometry was performed. Exam Date: August 09, 2022 Accession number: [id number] Bone Density: Region BMD T-score Z-score Classification AP Spine(L1-L4) 0.911 -1.2 1.5 Osteopenia Femoral Neck (Left) 0.575 -2.5 -0.1 Osteoporosis Total Hip (Left) 0.759 -1.5 0.6 Osteopenia Femoral Neck (Right) 0.574 -2.5 -0.1 Osteoporosis Total Hip (Right) 0.743 -1.6 0.5 Osteopenia Total Hip Mean 0.751 -1.6 0.6 Osteopenia World Health Organization criteria for BMD impression classify patients as: Normal (T-score at or above -1.0), Osteopenia (T-score between -1.0 and -2.5), or Osteoporosis (T-score at or below -2.5). 10-year Fracture Risk: FRAX not reported because: Some T-score for Spine Total or Hip Total or Femoral Neck at or below -2.5 Prior hip or vertebral fracture Treated for osteoporosis Previous Exams: Region Exam Age BMD T-score BMD Change BMD Change Date g/cm2 vs Baseline vs Previous AP Spine (L1-L4) 08/09/2022 82 0.911 -1.2 0.062 (7.3%)* 0.089 (10.8%)* 08/07/2020 80 0.822 -2.0 -0.027 (-3.2%) -0.027 (-3.2%) 01/03/2018 77 0.849 -1.8 Total Hip(Left) 08/09/2022 82 0.759 -1.5 0.055 (7.8%)* 0.026 (3.6%) 08/07/2020 80 0.733 -1.7 0.029 (4.1%)* 0.029 (4.1%)* 01/03/2018 77 0.704 -2.0 Total Hip(Right) 08/09/2022 82 0.743 -1.6 0.058 (8.5%)* 0.055 (8.0%)* 08/07/2020 80 0.688 -2.1 0.003 (0.5%) 0.003 (0.5%) 01/03/2018 77 0.685 -2.1 *Denotes significance at 95% confidence level, LSC for AP Spine = 0.022 g/cm2, LSC for Total Hip = 0.027 g/cm2 Clinical Information Provided by Patient: Have had a previous hip or vertebral fracture Has had a low trauma fracture Is being treated for osteoporosis Has used the following medications: Calcium Has the following medical conditions: Hysterectomy Patient maximum height was 61.5 Menopause Age: 56 Onset of menses at age 15 Number of children 2 Impression: The patient has established osteoporosis, based on the Left Femoral Neck T-score and the existence of a prior fracture. The patient has risk factors, including: previous fracture. No significant bone loss was observed. Discussion: PATIENT UNDER TREATMENT W
== END 2022-08-09 12:42 | disposition home or self-care (01) ==
LOC: ANHIMG 12:42
PROVIDERS: PCP Internal Medicine; Visit Provider Obstetrics & Gynecology
DX: M81.0 Age-related osteoporosis without current pathological fracture (principal); M85.89 Other specified disorders of bone density and structure, multiple sites
CPT/HCPCS: 77080

== ENCOUNTER 2022-08-16 12:54 | Outpatient (CLI) | payer MEDICARE, SELFPAY ==
--- NOTE | 2022-08-16 13:18 | ECG_ITS ---
Measurements Intervals [place] Rate: 86 P: 56 [place]: 173 QRS: -1 QRSD: 102 T: 42 QT: 355 QTc: 426 Interpretive Statements SINUS RHYTHM WITH SINUS ARRHYTHMIA ATRIAL PREMATURE COMPLEX BORDERLINE ECG COMPARED TO ECG 12/24/2019 21:50:56 SINUS RHYTHM NOW PRESENT SINUS ARRHYTHMIA NOW PRESENT Electronically Signed On 08-16-2022 18:20:59 CDT by Steve Del Castillo D.O.
== END 2022-08-16 12:55 | disposition home or self-care (01) ==
PROVIDERS: PCP Internal Medicine; Visit Provider Nurse Practitioner Family
DX: I49.9 Cardiac arrhythmia, unspecified (principal); R94.31 Abnormal electrocardiogram [ECG] [EKG]
CPT/HCPCS: 93005

== ENCOUNTER 2022-08-17 15:31 | Emergency (ER) | payer MEDICARE, SELFPAY ==
[2022-08-17] VITALS (41 sets, daily range): BP systolic 119–175; BP diastolic 40–103; PULSE 82–100; RESP 14–30; TEMP 36.6–37.1; O2SAT 87–99
--- NOTE | 2022-08-17 16:12 | ED.RECABL ---
HPI - Recheck/Abnormal Lab/Rx General Chief Complaint: Recheck/Abnormal Lab/Rx Stated Complaint: SENT FOR TRANSFUSION Time Seen by Provider: 08/17/22 16:01 History of Present Illness HPI narrative: pt presents with SOB and weakness for several weeks. Pt had lung damage from covid and has been following up with pulmonology because she thought it was her lungs. Pt says they kavya some outpatient labs yesterday and called her today and told her to come to the ER because her Hb was 6. Pt denies CP or dark stools or HANDY. Related Data Home Medications Medication Instructions Recorded Confirmed calcium carb 300 mg-D3 800 1 tablet PO DAILY 04/11/19 08/15/22 unit-mag ox 25 mg-copyright clerk 0.5 mg-danny-Zn tablet (Caltrate + D3 Plus Minerals) spironolactone 25 mg tablet 25 mg PO DAILY 04/11/19 08/15/22 levothyroxine 50 mcg tablet 50 mcg PO DAILY 12/24/19 08/15/22 aspirin 81 mg tablet,delayed 81 mg PO DAILY 04/11/22 08/15/22 release lansoprazole 15 mg capsule,delayed 15 mg PO DAILY 04/11/22 08/15/22 release (Prevacid 24Hr) loratadine 10 mg tablet (Claritin) 10 mg PO DAILY 04/11/22 08/15/22 Allergies Allergy/AdvReac Type Severity Reaction Status Date / Time cefdinir Allergy Unknown Unknown Verified 08/17/22 16:04 clarithromycin Allergy Unknown Unknown Verified 08/17/22 16:04 clindamycin Allergy Unknown Other Verified 08/17/22 16:04 codeine Allergy Unknown Unknown Verified 08/17/22 16:04 dexamethasone Allergy Unknown Unknown Verified 08/17/22 16:04 doxycycline Allergy Unknown Unknown Verified 08/17/22 16:04 morphine Allergy Unknown Unknown Verified 08/17/22 16:04 tobramycin Allergy Unknown Unknown Verified 08/17/22 16:04 cephalexin AdvReac Mild YEAST Verified 08/17/22 16:04 INFECTION Review of Systems Review of Systems: All systems reviewed & are unremarkable except as noted in HPI and below PMFSH Past Medical History Medical History Acid reflux Acute respiratory failure with hypoxia Adrenal adenoma benign COVID-19 virus infection DVT prophylaxis Elevated LFTs Hepatic steatosis and liver cyst Hiatal hernia Hypertension Hypothyroidism ILD (interstitial lung disease) Irritable bowel Migraines Obesity Osteoporosis Pneumonia due to COVID-19 virus Rhinitis Vulvar inflammation Surgical History Surgical History History of ankle surgery (~2000) ORIF right ankle History of bilateral cataract extraction History of carpal tunnel surgery of right wrist (~2015) History of colonoscopy with polypectomy most recent December 2018 with edematous polyps History of hemorrhoidectomy (~2011) History of medial meniscus repair of right knee (~2014) History of reconstructive repair of rectocele (~1995) History of vaginal hysterectomy (~1995) without oophorectomy S/P laparoscopic-assisted sigmoidectomy (~08/2018) due to chronic diverticulitis Family History Family History Sibling Hypertension Hyperlipidemia Thyroid disease it sounds as if the patient sister likely had Graves disease with a thyroidectomy and then became ill because her thyroid hormone was not replaced. Acute myocardial infarction Brother early-onset Artificial cardiac pacemaker brother Mother Hypertension Thyroid disease It sounds as if her mother likely had Graves disease Father Emphysema lung Grandparent Lung cancer Other Carcinoma of colon Family history of malignant neoplasm of breast Family history of pancreatic cancer Social History Social History Social History: The patient lives with her of 54 years. They raised a son and a daughter. Their son as 3 daughters and the daughter has a son and a daughter. She is a lifelong nonsmoker. She did have a lot of secondhand smoke expo
[2022-08-17 16:19] LABS: Mean Corpuscular HGB Conc 31.8 g/dl (32-36); Mean Corpuscular Hemoglobin 41.3 pg (26-34); Mean Corpuscular Volume 129.7 fl (80-100); Mean Platelet Volume 10.9 fl (7.4-10.4); Platelet Count Result 284 k/mm3 (150-375); Red Blood Count 1.55 M/mm3 (4.2-5.4); Red Cell Distribution Width 18.5 % (11.5-14.5); White Blood Count 2.8 K/mm3 (4.5-10.0)
[2022-08-17 16:29] LABS: INR 1.1; Prothrombin Time 15.3 Seconds (11.1-14.7)
[2022-08-17 16:30] LABS: Alanine Aminotransferase 22 U/L (6-35); Albumin Level 3.9 g/dL (3.5-5.1); Alkaline Phosphatase 32 U/L (38-126); Anion Gap 6 mmol/L (8-16); Aspartate Amino Transferase 20 U/L (14-36); Bilirubin,Total 1.3 mg/dL (0.2-1.3); Blood Urea Nitrogen 13 mg/dL (7-17); Calcium 8.6 mg/dL (8.4-10.2); Carbon Dioxide 31 mmol/L (22-30); Chloride 103 mmol/L (98-107); Estimated CRCL calculation 53 ml/min; Estimated Glomerular Filt Rate > 60; Glucose 119 mg/dL (65-110); Partial Thromboplastin Time 26.8 SECONDS (22.3-36.8); Sodium 140 mmol/L (137-145)
[2022-08-17 16:35] LABS: Hemoglobin 6.4 g/dL (12.0-15.0)
[2022-08-17 16:36] LABS: Hematocrit 20.1 % (37.0-47.0)
[2022-08-17 16:44] LABS: Band Neutrophils Percent 10 % (0-6); Lymphocytes Absolute Manual 1.09 K/mm3 (1.1-4.5); Monocytes Absolute Manual 0.22 K/mm3 (0.1-0.90); Monocytes Percent Manual 8 % (3-9); Neutrophils Absolute Manual 1.48 K/mm3 (1.7-7.2); Neutrophils Percent Manual 43 % (46-73); Total Cells Counted 100
[2022-08-17 16:45] LABS: Anisocytosis 3+ (NORMAL); Platelet Estimate Adequate (Adequate); Schistocytes Rare (NORMAL)
[2022-08-17 16:46] LABS: Hypochromasia 1+ (NORMAL)
[2022-08-17] MEDS: FUROSEMIDE INJ 40 MG/4 ML VIAL 20 MG IV PUSH (17:21)
--- NOTE | 2022-08-17 17:23 | PC.NURSE ---
This RN to room to give meds and noticed pt O2 at 86-88%. Asked pt if she felt SOB and she said yes. Placed pt on 1L of O2 NC at this time
[2022-08-17] MEDS: TUBING, BLOOD PLUM PUMP TUBING 1 EACH XX (18:19)
[2022-08-17] MEDS: SODIUM CHLORIDE 0.9% IV 250 ML 30 ML IV CONT (18:19)
--- NOTE | 2022-08-17 19:47 | PC.NURSE ---
iv to right wrist that had blood infusing at 50ml/hr was swollen and burning, started new iv 18 to rac and increased to 150ml/hr
--- NOTE | 2022-08-17 20:59 | ECG_ITS ---
Measurements Intervals [place] Rate: 83 P: 30 [place]: 175 QRS: -1 QRSD: 105 T: 39 QT: 354 QTc: 418 Interpretive Statements SINUS RHYTHM DELAYED PRECORDIAL R/S TRANSITION BORDERLINE ECG COMPARED TO ECG 08/16/2022 13:23:38 NO SIGNIFICANT CHANGES Electronically Signed On 08-18-2022 6:19:36 CDT by Steve Del Castillo D.O.
[2022-08-18] VITALS (7 sets, daily range): PULSE 83–89; RESP 16–26; TEMP 36.8; O2SAT 90–95
[2022-08-18] MEDS: SODIUM CHLORIDE 0.9% IV 250 ML (01:45)
[2022-08-18] MEDS: TUBING, BLOOD PLUM PUMP TUBING 1 EACH XX (01:55)
[2022-08-18] MEDS: TUBING, BLOOD SET 1 EACH XX (01:55)
--- NOTE | 2022-08-18 02:16 | PC.NURSE ---
walking pulse ox done and patient ranged from 90-92% with a heart ranging 85-90, dr. choi notified
== END 2022-08-18 02:37 | disposition home or self-care (01) ==
PROVIDERS: Emergency Provider Emergency Medicine; PCP Nurse Practitioner
DX: D64.9 Anemia, unspecified (principal); I10 Essential (primary) hypertension; E03.9 Hypothyroidism, unspecified
CPT/HCPCS: 36415; 36430; 80053; 85025; 85610; 85730; 86850; 86900; 86901; 86923; 93005; 96361; 96374; 99284; 99285; J1940; J7050; P9016

== ENCOUNTER 2022-08-18 13:08 | Outpatient (CLI) | payer MEDICARE, SELFPAY ==
[2022-08-18 13:40] LABS: Basophils Percent Auto 0.7 % (0.2-1.2); Eosinophils Percent Auto 1.1 % (0-4.4); Hemoglobin 8.8 g/dL (12.0-15.0); Immature Granulocyte Absolute 0.02 K/mm3 (0.00-0.031); Immature Granulocyte Percent A 0.7 % (0-0.5); Lymphocytes Absolute Auto 1.02 K/mm3 (0.9-3.2); Lymphocytes Percent Auto 35.8 % (18.3-44.2); Mean Corpuscular HGB Conc 32.6 g/dl (32-36); Mean Corpuscular Hemoglobin 36.5 pg (26-34); Mean Platelet Volume 10.9 fl (7.4-10.4); Monocytes Absolute Auto 0.4 K/mm3 (0.1-0.6); Neutrophils Absolute Auto 1.4 K/mm3 (1.3-6.7); Neutrophils Percent Auto 48.7 % (45.5-73.1); Platelet Count Result 257 k/mm3 (150-375); Red Blood Count 2.41 M/mm3 (4.2-5.4); White Blood Count 2.9 K/mm3 (4.5-10.0)
[2022-08-18 14:13] LABS: Anisocytosis 1+ (NORMAL); Platelet Estimate Adequate (Adequate); Schistocytes None Seen (NORMAL)
== END 2022-08-18 13:09 | disposition home or self-care (01) ==
PROVIDERS: PCP Nurse Practitioner; Visit Provider Nurse Practitioner
DX: D64.9 Anemia, unspecified (principal)
CPT/HCPCS: 36415; 85025

== ENCOUNTER 2022-08-23 12:37 | Outpatient (CLI) | payer MEDICARE, SELFPAY ==
[2022-08-23 12:59] LABS: Basophils Percent Auto 1.2 % (0.2-1.2); Eosinophils Absolute Auto 0.1 K/mm3 (0-0.3); Eosinophils Percent Auto 2.4 % (0-4.4); Hematocrit 28.4 % (37.0-47.0); Immature Granulocyte Absolute 0.01 K/mm3 (0.00-0.031); Immature Granulocyte Percent A 0.4 % (0-0.5); Lymphocytes Absolute Auto 1.07 K/mm3 (0.9-3.2); Mean Corpuscular HGB Conc 31.7 g/dl (32-36); Mean Corpuscular Hemoglobin 36.4 pg (26-34); Mean Platelet Volume 10.8 fl (7.4-10.4); Monocytes Absolute Auto 0.3 K/mm3 (0.1-0.6); Monocytes Percent Auto 12.9 % (2.6-8.5); Neutrophils Percent Auto 40.1 % (45.5-73.1); Platelet Count Result 267 k/mm3 (150-375); Red Blood Count 2.47 M/mm3 (4.2-5.4); Red Cell Distribution Width 23.4 % (11.5-14.5); White Blood Count 2.5 K/mm3 (4.5-10.0)
[2022-08-23 13:45] LABS: Anisocytosis 1+ (NORMAL); Hypochromasia 1+ (NORMAL); Ovalocytes 1+ (NORMAL); Platelet Estimate Adequate (Adequate); Schistocytes None Seen (NORMAL)
== END 2022-08-23 12:38 | disposition home or self-care (01) ==
PROVIDERS: PCP Internal Medicine; Visit Provider Nurse Practitioner
DX: D64.9 Anemia, unspecified (principal)
CPT/HCPCS: 36415; 85025

== ENCOUNTER 2022-08-25 15:03 | Outpatient (CLI) | payer MEDICARE, SELFPAY ==
[2022-08-25 19:46] LABS: Iron 205 ug/dL (37-170)
[2022-08-25 19:59] LABS: Percent Iron Saturation 88 % (20-50)
[2022-08-25 20:06] LABS: Immature Reticulocyte Fraction 9.5 % (3.0-15.9); Reticulocyte Hemoglobin Conten 41.1 pg (28.2-35.7); Reticulocyte Percent 1.63 % (0.7-4.3); Reticulocytes Absolute 0.04 M/mm3 (0.02-0.1)
[2022-08-25 20:46] LABS: Folic Acid 6.8 ng/mL (2.76->20)
[2022-08-26 08:57] LABS: Hematocrit 26.7 % (37.0-47.0); Hemoglobin 8.7 g/dL (12.0-15.0)
== END 2022-08-25 15:04 | disposition home or self-care (01) ==
LOC: ANHGOSHLAB 15:07
PROVIDERS: PCP Internal Medicine; Visit Provider Nurse Practitioner
DX: D64.9 Anemia, unspecified (principal)
CPT/HCPCS: 36415; 82607; 82728; 82746; 83540; 83550; 84443; 85014; 85018; 85046

== ENCOUNTER 2022-08-26 13:46 | Outpatient (CLI) | payer MEDICARE, SELFPAY ==
--- NOTE | 2022-09-01 12:25 | WPDHOLTEREM ---
Holter/Event Monitor Holter/Event Monitor Date of procedure: 08/26/22 Holter/Event Procedure: 48 Hr Holter Monitor Indications: Dyspnea Conclusion: 1. 48 hour holter monitor on 08/26/22. 2. Predominant rhythm is sinus rhythm. HR range 68-124 bpm; average HR 84 bpm. 3. There are 561 premature supraventricular complexes, 16 supraventricular couplets, 11 supraventricular bigeminy, 3 supraventricular trigeminy. There are 3 episodes of atrial tachycardia, fastest at 154 bpm and longest lasting 7 beats. 4. There are 1,912 premature ventricular complexes, 19 ventricular couplets, 1 ventricular triplet, 6 ventricular bigeminy, 16 ventricular trigeminy. No ventricular tachycardia. 5. No sinoatrial or atrioventricular blocks. No significant pauses greater than 2 seconds. 6. No symptoms available for correlation.
== END 2022-08-26 13:47 | disposition home or self-care (01) ==
LOC: ANHCARD 13:47
PROVIDERS: PCP Internal Medicine; Visit Provider Nurse Practitioner Family
DX: R06.09 Other forms of dyspnea (principal); I49.9 Cardiac arrhythmia, unspecified; D64.9 Anemia, unspecified
CPT/HCPCS: 36415; 85014; 85018; 93225; 93226

== ENCOUNTER 2022-08-30 12:48 | Outpatient (CLI) | payer MEDICARE, SELFPAY ==
[2022-08-30 14:24] LABS: Basophils Percent Auto 1.3 % (0.2-1.2); Eosinophils Absolute Auto 0.1 K/mm3 (0-0.3); Eosinophils Percent Auto 2.8 % (0-4.4); Hematocrit 26.8 % (37.0-47.0); Hemoglobin 8.5 g/dL (12.0-15.0); Immature Granulocyte Absolute 0.02 K/mm3 (0.00-0.031); Immature Granulocyte Percent A 0.6 % (0-0.5); Lymphocytes Absolute Auto 1.24 K/mm3 (0.9-3.2); Lymphocytes Percent Auto 38.9 % (18.3-44.2); Mean Corpuscular HGB Conc 31.7 g/dl (32-36); Mean Corpuscular Hemoglobin 36.6 pg (26-34); Mean Corpuscular Volume 115.5 fl (80-100); Mean Platelet Volume 11.2 fl (7.4-10.4); Monocytes Absolute Auto 0.5 K/mm3 (0.1-0.6); Monocytes Percent Auto 14.1 % (2.6-8.5); Neutrophils Absolute Auto 1.4 K/mm3 (1.3-6.7); Neutrophils Percent Auto 42.3 % (45.5-73.1); Platelet Count Result 312 k/mm3 (150-375); Red Blood Count 2.32 M/mm3 (4.2-5.4); White Blood Count 3.2 K/mm3 (4.5-10.0)
[2022-08-30 15:27] LABS: Hypochromasia 1+ (NORMAL); Macrocytosis 2+ (NORMAL); Platelet Estimate Adequate (Adequate)
[2022-08-30 15:28] LABS: Anisocytosis 2+ (NORMAL); Tear Drop Cells 1+ (NORMAL)
[2022-08-30 15:29] LABS: Schistocytes Rare (NORMAL)
== END 2022-08-30 12:49 | disposition home or self-care (01) ==
LOC: ANHGOSHLAB 12:50
PROVIDERS: PCP Internal Medicine; Visit Provider Nurse Practitioner
DX: D64.9 Anemia, unspecified (principal)
CPT/HCPCS: 36415; 85025

== ENCOUNTER 2022-09-12 08:34 | Outpatient (CLI) | payer MEDICARE, SELFPAY ==
[2022-09-12 14:26] LABS: Hematocrit 23.3 % (37.0-47.0); Hemoglobin 7.4 g/dL (12.0-15.0); Immature Reticulocyte Fraction 22.4 % (3.0-15.9); Mean Corpuscular HGB Conc 31.8 g/dl (32-36); Mean Corpuscular Hemoglobin 38.1 pg (26-34); Mean Corpuscular Volume 120.1 fl (80-100); Mean Platelet Volume 11.3 fl (7.4-10.4); Platelet Count Result 269 k/mm3 (150-375); Red Blood Count 1.94 M/mm3 (4.2-5.4); Reticulocyte Hemoglobin Conten 37.2 pg (28.2-35.7); Reticulocyte Percent 2.36 % (0.7-4.3); Reticulocytes Absolute 0.05 M/mm3 (0.02-0.1); White Blood Count 2.2 K/mm3 (4.5-10.0)
[2022-09-12 14:41] LABS: Alanine Aminotransferase 19 U/L (6-35); Albumin Level 3.9 g/dL (3.5-5.1); Alkaline Phosphatase 38 U/L (38-126); Anion Gap 3 mmol/L (8-16); Aspartate Amino Transferase 25 U/L (14-36); Bilirubin,Total 0.9 mg/dL (0.2-1.3); Blood Urea Nitrogen 13 mg/dL (7-17); Calcium 8.1 mg/dL (8.4-10.2); Carbon Dioxide 33 mmol/L (22-30); Chloride 102 mmol/L (98-107); Estimated Glomerular Filt Rate > 60; Glucose 99 mg/dL (65-110); Potassium 4.1 mmol/L (3.4-5.0); Sodium 138 mmol/L (137-145)
[2022-09-12 14:44] LABS: Iron 197 ug/dL (37-170)
[2022-09-12 14:48] LABS: Transferrin 131 mg/dL (206-381)
[2022-09-12 14:57] LABS: Percent Iron Saturation 86 % (20-50)
[2022-09-12 15:47] LABS: Folic Acid 7.8 ng/mL (2.76->20)
[2022-09-12 16:00] LABS: Band Neutrophils Percent 10 % (0-6); Lymphocytes Absolute Manual 0.68 K/mm3 (1.1-4.5); Monocytes Absolute Manual 0.37 K/mm3 (0.1-0.90); Monocytes Percent Manual 17 % (3-9); Neutrophils Absolute Manual 1.14 K/mm3 (1.7-7.2); Neutrophils Percent Manual 42 % (46-73); Nucleated Red Blood Cells 1 %; Total Cells Counted 100
[2022-09-12 16:01] LABS: Platelet Estimate Adequate (Adequate); Schistocytes None Seen (NORMAL)
[2022-09-12 16:02] LABS: Anisocytosis 3+ (NORMAL); Hypochromasia 1+ (NORMAL)
[2022-09-15 19:55] LABS: Methylmalonic Acid 207 nmol/L (87-318)
== END 2022-09-12 08:35 | disposition home or self-care (01) ==
LOC: ANHGOSHLAB 08:36
PROVIDERS: PCP Internal Medicine; Visit Provider Internal Medicine Hematology & Oncology
DX: D64.9 Anemia, unspecified (principal)
CPT/HCPCS: 36415; 80053; 82607; 82728; 82746; 83540; 83550; 83921; 84443; 84466; 85025; 85046

== ENCOUNTER 2022-09-16 08:03 | Outpatient (CLI) | payer MEDICARE, SELFPAY ==
--- NOTE | ~2022-09-16 | US_ITS ---
EXAMINATION: US abdomen complete DATE: 09/16/2022 08:57 INDICATION: IRON OVERLOAD TECHNIQUE: Multiple grayscale and Doppler ultrasound images of the abdomen were obtained. COMPARISON: CT abdomen pelvis 06/12/2017; CT chest 04/28/2022. FINDINGS: The visualized portions of the pancreas are normal. The liver is normal with normal echogen icity and echotexture. Simple liver cysts in the right and left lobes. No surface nodularity. Normal hepatopetal flow in the main portal vein. The gallbladder is normal with no abnormal wall thickening, pericholecystic fluid or stones. The common bile duct measures 5 mm. There was no sonographic Ball sign. The visualized portions of the aorta and inferior vena cava are normal. The right kidney measures 10.6 cm. The left kidney measures 11.0 cm. The kidneys demonstrate normal p arenchymal echogenicity. There is no hydronephrosis. The spleen is normal in appearance and measures 13.5 cm. IMPRESSION: Normal abdominal ultrasound findings. Reviewed, dictated and finalized at location K.
== END 2022-09-16 08:04 | disposition home or self-care (01) ==
PROVIDERS: PCP Internal Medicine; Visit Provider Internal Medicine Hematology & Oncology
DX: E83.19 Other disorders of iron metabolism (principal)
CPT/HCPCS: 76700

== ENCOUNTER 2022-09-20 11:16 | Outpatient (CLI) | payer MEDICARE, SELFPAY ==
[2022-09-20 14:42] LABS: Hematocrit 23.1 % (37.0-47.0); Hemoglobin 7.3 g/dL (12.0-15.0)
== END 2022-09-20 11:17 | disposition home or self-care (01) ==
LOC: ANHGOSHLAB 11:18
PROVIDERS: PCP Internal Medicine; Visit Provider Internal Medicine
DX: D64.9 Anemia, unspecified (principal)
CPT/HCPCS: 36415; 85014; 85018

== ENCOUNTER 2022-09-27 10:02 | Outpatient (CLI) | payer MEDICARE, SELFPAY ==
[2022-09-27 16:59] LABS: Hematocrit 22.3 % (37.0-47.0); Hemoglobin 7.2 g/dL (12.0-15.0)
== END 2022-09-27 10:03 | disposition home or self-care (01) ==
LOC: ANHGOSHLAB 10:05
PROVIDERS: PCP Internal Medicine; Visit Provider Internal Medicine
DX: D64.9 Anemia, unspecified (principal)
CPT/HCPCS: 36415; 85014; 85018

== ENCOUNTER 2022-10-03 09:22 | Outpatient (CLI) | payer MEDICARE, SELFPAY ==
[2022-10-03 09:38] LABS: Basophils Percent Auto 0.5 % (0.2-1.2); Eosinophils Percent Auto 1.8 % (0-4.4); Immature Granulocyte Absolute 0.02 K/mm3 (0.00-0.031); Immature Granulocyte Percent A 0.9 % (0-0.5); Lymphocytes Percent Auto 32.3 % (18.3-44.2); Mean Corpuscular HGB Conc 32.3 g/dl (32-36); Mean Corpuscular Hemoglobin 39.2 pg (26-34); Mean Corpuscular Volume 121.1 fl (80-100); Mean Platelet Volume 10.5 fl (7.4-10.4); Monocytes Absolute Auto 0.3 K/mm3 (0.1-0.6); Monocytes Percent Auto 13.8 % (2.6-8.5); Neutrophils Absolute Auto 1.1 K/mm3 (1.3-6.7); Neutrophils Percent Auto 50.7 % (45.5-73.1); Platelet Count Result 254 k/mm3 (150-375); Red Blood Count 1.66 M/mm3 (4.2-5.4); Red Cell Distribution Width 22.7 % (11.5-14.5); White Blood Count 2.2 K/mm3 (4.5-10.0)
[2022-10-03 09:39] LABS: Hematocrit 20.1 % (37.0-47.0); Hemoglobin 6.5 g/dL (12.0-15.0)
[2022-10-03 12:03] LABS: Folic Acid 6.2 ng/mL (2.76->20)
== END 2022-10-03 09:23 | disposition home or self-care (01) ==
PROVIDERS: PCP Internal Medicine; Visit Provider Internal Medicine Hematology & Oncology
DX: D64.9 Anemia, unspecified (principal); E83.19 Other disorders of iron metabolism
CPT/HCPCS: 36415; 81256; 82607; 82746; 85025; 86850; 86900; 86901; 86923

== ENCOUNTER 2022-10-05 07:15 | Day surgery (SDC) | payer MEDICARE, SELFPAY ==
[2022-10-03 16:00] VITALS: BMI 27.5
--- NOTE | ~2022-10-05 | BM_ITS ---
. EXAMINATION: CCL bone marrow asp w bx diag DATE: 10/05/2022 09:37 INDICATION: Chronic anemia. TECHNIQUE: A time-out was performed to verify the patient's name, date of , and procedure to b e performed. The procedure including the risks, benefits, and alternatives was discussed with the pat ient. Risks discussed included bleeding and infection. The patient understood the risks and agreed to proceed. The skin overlying the left ilium was prepped and draped in usual sterile fashion. Anesth etic was administered with 1% lidocaine subcutaneously. Moderate sedation was achieved with 1 mg Vers ed IV and 50 mcg fentanyl IV. An 11 gauge needle was inserted into the ilium with fluoroscopic gurwinder nce. Bone marrow was aspirated. An 8 gauge needle was then inserted into the ilium with fluoroscopic guidance. A core bone marrow biopsy was obtained. There were no immediate complications. Fluoroscopy exposure time was 0.0 minutes. The total number of images was 26. FINDINGS: Real-time fluoroscopy demonstrates a marker overlying the left posterior superior iliac spi ne. IMPRESSION: 1. Fluoro-guided bone marrow aspiration. 2. Fluoro-guided bone marrow core biopsy. Reviewed, dictated and finalized at location A.
[2022-10-05 07:58] LABS: Basophils Percent Auto 0.9 % (0.2-1.2); Eosinophils Absolute Auto 0.1 K/mm3 (0-0.3); Eosinophils Percent Auto 3.1 % (0-4.4); Immature Granulocyte Absolute 0.02 K/mm3 (0.00-0.031); Immature Granulocyte Percent A 0.9 % (0-0.5); Lymphocytes Absolute Auto 0.73 K/mm3 (0.9-3.2); Lymphocytes Percent Auto 32.7 % (18.3-44.2); Mean Corpuscular HGB Conc 31.2 g/dl (32-36); Mean Corpuscular Hemoglobin 38.2 pg (26-34); Mean Corpuscular Volume 122.4 fl (80-100); Mean Platelet Volume 11.1 fl (7.4-10.4); Monocytes Absolute Auto 0.3 K/mm3 (0.1-0.6); Monocytes Percent Auto 14.8 % (2.6-8.5); Neutrophils Absolute Auto 1.1 K/mm3 (1.3-6.7); Neutrophils Percent Auto 47.6 % (45.5-73.1); Platelet Count Result 260 k/mm3 (150-375); Red Blood Count 1.65 M/mm3 (4.2-5.4); Red Cell Distribution Width 23.4 % (11.5-14.5); White Blood Count 2.2 K/mm3 (4.5-10.0)
[2022-10-05 08:04] LABS: Hemoglobin 6.3 g/dL (12.0-15.0)
[2022-10-05 08:05] LABS: Hematocrit 20.2 % (37.0-47.0)
[2022-10-05 08:11] LABS: INR 1.2; Prothrombin Time 15.7 Seconds (11.1-14.7)
[2022-10-05 08:15] VITALS: BP 137/50; PULSE 86; RESP 20; TEMP 36.7; O2SAT 96; BMI 27.5
[2022-10-05 08:17] LABS: Anisocytosis 1+ (NORMAL); Hypochromasia 1+ (NORMAL); Microcytosis 1+ (NORMAL); Ovalocytes 1+ (NORMAL); Platelet Estimate Adequate (Adequate)
[2022-10-05 08:18] LABS: Schistocytes None Seen (NORMAL)
--- NOTE | 2022-10-05 08:51 | WPDMODSED ---
Moderate Sedation Note-Pt Data Patient Data Diagnosis: Chronic anemia. Present Complaint: Chronic anemia. Procedure to be performed/Plan: Fluoro-guided bone marrow biopsy of ilium. Allergies Allergy/AdvReac Type Severity Reaction Status Date / Time cefdinir Allergy Unknown Unknown Verified 10/05/22 08:20 clarithromycin Allergy Unknown Unknown Verified 10/05/22 08:20 clindamycin Allergy Unknown Other Verified 10/05/22 08:20 codeine Allergy Unknown Unknown Verified 10/05/22 08:20 dexamethasone Allergy Unknown Unknown Verified 10/05/22 08:20 doxycycline Allergy Unknown Unknown Verified 10/05/22 08:20 morphine Allergy Unknown Unknown Verified 10/05/22 08:20 tobramycin Allergy Unknown Unknown Verified 10/05/22 08:20 cephalexin AdvReac Mild YEAST Verified 10/05/22 08:20 INFECTION Home Medications Medication Instructions Recorded Confirmed Type calcium carb 300 mg-D3 800 1 tablet PO DAILY 04/11/19 10/05/22 History unit-mag ox 25 mg-copy operator 0.5 mg-danny-Zn tablet (Caltrate + D3 Plus Minerals) spironolactone 25 mg tablet 25 mg PO DAILY 04/11/19 10/05/22 History lansoprazole 15 mg capsule,delayed 15 mg PO DAILY 04/11/22 10/05/22 History release (Prevacid 24Hr) loratadine 10 mg tablet (Claritin) 10 mg PO DAILY 04/11/22 10/05/22 History denosumab 60 mg/mL subcutaneous 60 mg subcut [id number] #1 mL 06/14/22 10/03/22 Rx syringe (Prolia) levothyroxine 50 mcg tablet 50 mcg PO DAILY #90 tabs 08/22/22 10/05/22 Rx metoprolol succinate 25 mg 12.5 mg PO DAILY #45 tabs 09/21/22 10/05/22 Rx tablet,extended release 24 hr cyanocobalamin (vitamin B-12) 1,000 mcg PO DAILY 09/29/22 10/05/22 History 1,000 mcg capsule Sedation/Anesthesia: No previous sedation/anesthesia problems (including family history). [facility] Past Medical History Medical History (Updated 09/29/22 @ 13:49 by Rikki Warner MD) Acid reflux Acute respiratory failure with hypoxia Adrenal adenoma benign COVID-19 virus infection DVT prophylaxis Elevated LFTs Hepatic steatosis and liver cyst Hiatal hernia Hypertension Hypothyroidism ILD (interstitial lung disease) Irritable bowel Macrocytic anemia Migraines Obesity Osteoporosis Pneumonia due to COVID-19 virus Rhinitis Vulvar inflammation Surgical History Surgical History History of ankle surgery (~2000) ORIF right ankle History of bilateral cataract extraction History of carpal tunnel surgery of right wrist (~2015) History of colonoscopy with polypectomy most recent December 2018 with edematous polyps History of hemorrhoidectomy (~2011) History of medial meniscus repair of right knee (~2014) History of reconstructive repair of rectocele (~1995) History of vaginal hysterectomy (~1995) without oophorectomy S/P laparoscopic-assisted sigmoidectomy (~08/2018) due to chronic diverticulitis Family History Family History Sibling Hypertension Hyperlipidemia Thyroid disease it sounds as if the patient sister likely had Graves disease with a thyroidectomy and then became ill because her thyroid hormone was not replaced. Acute myocardial infarction Brother early-onset Artificial cardiac pacemaker brother Mother Hypertension Thyroid disease It sounds as if her mother likely had Graves disease Father Emphysema lung Grandparent Lung cancer Other Carcinoma of colon Family history of malignant neoplasm of breast Family history of pancreatic cancer Social History Social History Social History: The patient lives with her of 54 years. They raised a son and a daughter. Their son as 3 daughters and the daughter has a son and a daughter. She is a lifelong nonsmoker. She did have a lot of secondhand smoke exposure as a child. She rarely drinks alcohol and on
[2022-10-05 09:35] VITALS: BP 126/43; PULSE 85; RESP 13; TEMP 36.4; O2SAT 96
[2022-10-05 09:45] VITALS: BP 128/47; PULSE 77; RESP 15; O2SAT 94
--- NOTE | 2022-10-05 09:45 | SUR.PHASEII ---
0930 vital sign charted on TAR . Will start phase 2 vitals at 0945.
[2022-10-05 10:00] VITALS: BP 121/41; PULSE 71; RESP 18; O2SAT 98
[2022-10-05 10:15] VITALS: BP 127/50; PULSE 72; RESP 17; O2SAT 99
[2022-10-05 10:30] VITALS: BP 97/71; PULSE 72; RESP 17; O2SAT 99
--- NOTE | 2022-10-05 10:45 | SUR.PHASEII ---
Pt discharged as post op bone marrow. Still receiving blood transfusion
== END 2022-10-05 10:45 | disposition home or self-care (01) ==
PROVIDERS: PCP Internal Medicine; Referring Provider Internal Medicine Hematology & Oncology; Visit Provider Radiology Diagnostic Radiology
DX: D53.9 Nutritional anemia, unspecified (principal); D72.819 Decreased white blood cell count, unspecified; I10 Essential (primary) hypertension; E03.9 Hypothyroidism, unspecified; K21.9 Gastro-esophageal reflux disease without esophagitis; J84.9 Interstitial pulmonary disease, unspecified; M81.0 Age-related osteoporosis without current pathological fracture; Z90.49 Acquired absence of other specified parts of digestive tract
CPT/HCPCS: 36415; 36430; 38222; 85025; 85610; 88184; 88185; 88305; 88311; 88313; 88341; 88342; 96374; A9270; J1642; J1940; J2250; J3010; J7050; P9016

== ENCOUNTER 2022-10-28 00:46 | Day surgery (SDC) | payer MEDICARE, SELFPAY ==
[2022-10-19 10:00] VITALS: BMI 26.4
[2022-10-28 10:20] VITALS: BP 133/37; PULSE 86; RESP 20; TEMP 36.8; O2SAT 96; BMI 26.2
[2022-10-28] MEDS: LACTATED RINGERS 1,000 ML 150 ML IV CONT (10:32)
--- NOTE | 2022-10-28 10:37 | WPDHPUPDATE1 ---
History and Physical Update Update Date/Time: 10/28/22 10:37 History and Physical has been reviewed, including an updated exam of the patient. There are NO changes in the patient's condition. Risks, benefits, and alternatives have been discussed and questions answered. Patient agrees to proceed with procedure.
--- NOTE | 2022-10-28 10:47 | WPDANESEPPF ---
Anes - Initial Pre Proc Eval Procedure: Operation Date: 10/28/22 11:15 Proposed Procedures p Esophagogastroduodenoscopy & Colonoscopy - Rikki Warner MD Date/Time: 10/28/22 10:47 Surgeon: Rikki Warner MD Pre Op Diagnosis: hx colon polyps, anemia Patient Data Age: 82 Gender: F Height: 1.52 m Weight: 61 kg Last Vital Signs Temp 98.3 F 10/28/22 10:20 Pulse 86 10/28/22 10:20 Resp 20 10/28/22 10:20 BP 133/37 L 10/28/22 10:20 Pulse Ox 96 10/28/22 10:20 O2 Del Method Room Air 10/28/22 10:20 Allergies Allergy/AdvReac Type Severity Reaction Status Date / Time cephalexin AdvReac Mild YEAST Verified 10/28/22 10:19 INFECTION cefdinir AdvReac Unknown Unknown Verified 10/28/22 10:19 clarithromycin AdvReac Unknown Unknown Verified 10/28/22 10:19 clindamycin AdvReac Unknown Other Verified 10/28/22 10:19 codeine AdvReac Unknown Unknown Verified 10/28/22 10:19 dexamethasone AdvReac Unknown Unknown Verified 10/28/22 10:19 doxycycline AdvReac Unknown Unknown Verified 10/28/22 10:19 morphine AdvReac Unknown Unknown Verified 10/28/22 10:19 tobramycin AdvReac Unknown Unknown Verified 10/28/22 10:19 Home Medications Medication Instructions Recorded Confirmed Type calcium carb 300 mg-D3 800 1 tablet PO DAILY 04/11/19 10/28/22 History unit-mag ox 25 mg-copy center specialist 0.5 mg-danny-Zn tablet (Caltrate + D3 Plus Minerals) spironolactone 25 mg tablet 25 mg PO DAILY 04/11/19 10/28/22 History lansoprazole 15 mg capsule,delayed 15 mg PO DAILY 04/11/22 10/28/22 History release (Prevacid 24Hr) loratadine 10 mg tablet (Claritin) 10 mg PO DAILY 04/11/22 10/28/22 History denosumab 60 mg/mL subcutaneous 60 mg subcut [id number] #1 mL 06/14/22 10/28/22 Rx syringe (Prolia) levothyroxine 50 mcg tablet 50 mcg PO DAILY #90 tabs 08/22/22 10/28/22 Rx metoprolol succinate 25 mg 12.5 mg PO DAILY #45 tabs 09/21/22 10/28/22 Rx tablet,extended release 24 hr cyanocobalamin (vitamin B-12) 1,000 mcg PO DAILY 09/29/22 10/28/22 History 1,000 mcg capsule sodium sul 1.479 gram-potas ch 12 tablet PO .COMPLEX #24 tabs 10/07/22 10/28/22 Rx 0.188 gram-magnes sul 0.225 gram tablet (Sutab) Patient hx anesthesia problems: none Family hx anesthesia problems: none Results Review: All pre-operative results and documents have been reviewed as part of the pre-operative evaluation. [facility] Past Medical History Medical History Acid reflux Acute respiratory failure with hypoxia Adrenal adenoma benign COVID-19 virus infection DVT prophylaxis Elevated LFTs Hepatic steatosis and liver cyst Hiatal hernia Hypertension Hypothyroidism ILD (interstitial lung disease) Irritable bowel Macrocytic anemia Migraines Obesity Osteoporosis Pneumonia due to COVID-19 virus Rhinitis Vulvar inflammation Surgical History Surgical History History of ankle surgery (~2000) ORIF right ankle History of bilateral cataract extraction History of carpal tunnel surgery of right wrist (~2015) History of colonoscopy with polypectomy most recent December 2018 with edematous polyps History of hemorrhoidectomy (~2011) History of medial meniscus repair of right knee (~2014) History of reconstructive repair of rectocele (~1995) History of vaginal hysterectomy (~1995) without oophorectomy S/P laparoscopic-assisted sigmoidectomy (~08/2018) due to chronic diverticulitis Family History Family History Sibling Hypertension Hyperlipidemia Thyroid disease it sounds as if the patient sister likely had Graves disease with a thyroidectomy and then became ill because her thyroid hormone was not replaced. Acute myocardial infarction Brother early-onset Artificial cardiac pacemaker brother Mother Hypertension Thyroi
--- NOTE | 2022-10-28 11:02 | SUR.OPER ---
EGD START: 1053; END: 1057. COLONOSCOPY START: 1102; END: 1112.
[2022-10-28 11:18] VITALS: BP 123/43; PULSE 83; RESP 20; O2SAT 98
[2022-10-28 11:28] VITALS: BP 121/47; PULSE 80; RESP 20; O2SAT 97
[2022-10-28 11:38] VITALS: BP 138/50; PULSE 82; RESP 20; O2SAT 96
== END 2022-10-28 11:58 | disposition home or self-care (01) ==
PROVIDERS: PCP Internal Medicine; Visit Provider Internal Medicine Gastroenterology
PROC: 0DJ08ZZ Inspection of Upper Intestinal Tract, Via Natural or Artificial Opening Endoscopic (ICD-10-PCS; CPT 43235; principal; 2022-10-28 11:15)
DX: D53.9 Nutritional anemia, unspecified (principal); K57.30 Diverticulosis of large intestine without perforation or abscess without bleeding; K63.5 Polyp of colon; K44.9 Diaphragmatic hernia without obstruction or gangrene; R06.00 Dyspnea, unspecified; K21.9 Gastro-esophageal reflux disease without esophagitis; K76.0 Fatty (change of) liver, not elsewhere classified; E03.9 Hypothyroidism, unspecified; J84.9 Interstitial pulmonary disease, unspecified; M81.0 Age-related osteoporosis without current pathological fracture; Z90.49 Acquired absence of other specified parts of digestive tract
CPT/HCPCS: 45385; 43239; 88305; J2704; J7120

== ENCOUNTER 2022-11-04 08:01 | Outpatient (RCR) | payer MEDICARE, SELFPAY ==
[2022-11-04 08:20] VITALS: BP 135/52; PULSE 87; RESP 18; TEMP 36.6; O2SAT 99
[2022-11-04] MEDS: ACETAMINOPHEN 325 MG TABLET 650 MG PO (09:01)
[2022-11-04] MEDS: SODIUM CHLORIDE 0.9% IV 250 ML 30 ML IV CONT (09:04)
[2022-11-04 09:15] VITALS: BP 139/61; PULSE 86; RESP 18; TEMP 36.7; O2SAT 98
[2022-11-04 09:30] VITALS: BP 122/71; PULSE 84; RESP 16; TEMP 36.7; O2SAT 98
[2022-11-04 10:30] VITALS: BP 131/46; PULSE 78; RESP 16; TEMP 36.7; O2SAT 95
[2022-11-04 11:30] VITALS: BP 118/73; PULSE 76; RESP 16; TEMP 36.8; O2SAT 96
[2022-11-04 12:10] VITALS: BP 122/68; PULSE 74; RESP 16; TEMP 36.8; O2SAT 92
== END 2023-02-02 23:59 | disposition home or self-care (01) ==
LOC: ANHCPCTRAN 08:01
PROVIDERS: PCP Internal Medicine; Visit Provider Internal Medicine Hematology & Oncology
DX: D64.9 Anemia, unspecified (principal)
CPT/HCPCS: 36415; 36430; 86850; 86900; 86901; 86923; A9270; J7050; P9016

== ENCOUNTER 2022-11-05 11:07 | Emergency (ER) | payer MEDICARE, SELFPAY ==
--- NOTE | ~2022-11-05 | XR_ITS ---
EXAMINATION: XR abdomen/kub 1V DATE: 11/05/2022 12:01 INDICATION: Hematuria. Low back pain. TECHNIQUE: A supine view of the abdomen was obtained. COMPARISON: 08/06/2017 FINDINGS: New 3-4 mm calcific density projecting over the upper pole of the right kidney potentially representi ng a renal stone. Unchanged calcified right lower lobe nodule projecting over the dome of the liver c onsistent with old granulomatous disease. No other calcific lesions suspicious for nephrolithiasis in the abdomen or pelvis. Likely prior bowel surgery with anastomotic suture line in the deep central p romelia. Moderate amount stool scattered throughout the colon. No dilated gas-filled bowel to suggest o bstruction. Mild thoracolumbar levocurvature. Age-indeterminate T12 compression fracture, new since 2 018. IMPRESSION: 1. 3-4 mm calcification potentially renal stone at the upper pole of the right kidney. Reviewed, dictated and finalized at location A.
[2022-11-05 11:23] VITALS: BP 151/52; PULSE 84; RESP 12; TEMP 36.6; O2SAT 100
[2022-11-05 11:25] VITALS: BP 151/52; PULSE 84; RESP 12; TEMP 36.6; O2SAT 100
--- NOTE | 2022-11-05 11:44 | ED.GENADULT ---
HPI - General Adult General Chief complaint: Urogenital-Female Stated complaint: UTI Time Seen by Provider: 11/05/22 11:45 Source: patient Mode of arrival: ambulatory Limitations: no limitations History of Present Illness HPI narrative: 82-year-old female patient presents to the [facility] with complaints of urinary symptoms. Patient states she has been having some low back aches for about a week now. Patient states she did have a couple of days of it then went away and recently came back about 2 days ago. Patient states she has also noticed increasing urination but denies any pain with urination. Denies any odor to the urine or any dark color to the urine. Denies fevers, body aches or chills. Patient states she did get a blood transfusion yesterday due to a chronic post COVID hematological issue. Related Data Home Medications Medication Instructions Recorded Confirmed calcium carb 300 mg-D3 20 mcg-mag 1 tablet PO DAILY 04/11/19 11/05/22 ox 25 mg-office copy selector 0.5 [id number] tablet (Caltrate-D3 Plus Minerals) spironolactone 25 mg tablet 25 mg PO DAILY 04/11/19 11/05/22 lansoprazole 15 mg capsule,delayed 15 mg PO DAILY 04/11/22 11/05/22 release (Prevacid 24Hr) loratadine 10 mg tablet (Claritin) 10 mg PO DAILY 04/11/22 11/05/22 cyanocobalamin (vitamin B-12) 1,000 mcg PO DAILY 09/29/22 11/05/22 1,000 mcg capsule Allergies Allergy/AdvReac Type Severity Reaction Status Date / Time cephalexin AdvReac Mild YEAST Verified 11/01/22 11:58 INFECTION cefdinir AdvReac Unknown Unknown Verified 11/01/22 11:58 clarithromycin AdvReac Unknown Unknown Verified 11/01/22 11:58 clindamycin AdvReac Unknown Other Verified 11/01/22 11:58 codeine AdvReac Unknown Unknown Verified 11/01/22 11:58 dexamethasone AdvReac Unknown Unknown Verified 11/01/22 11:58 doxycycline AdvReac Unknown Unknown Verified 11/01/22 11:58 morphine AdvReac Unknown Headache Verified 11/05/22 11:23 tobramycin AdvReac Unknown Unknown Verified 11/01/22 11:58 Review of Systems Review of Systems: CONSTITUTIONAL: Denies fever, chills, or sweats. EYES: Denies visual changes, redness, or discharge. ENT: Denies rhinorrhea, congestion, sore throat, or otalgia. CARDIOVASCULAR: Denies chest pain, palpitations, or edema. RESPIRATORY: Denies cough or dyspnea. GASTROINTESTINAL: Denies abdominal pain, nausea, vomiting, or diarrhea. GENITOURINARY: Denies dysuria positive hematuria. Positive increasing urination SKIN: Denies rash or itching. MUSCULOSKELETAL: Positive low back pain, joint pain, or myalgia. NEUROLOGIC: Denies headache, numbness, or weakness. PSYCHIATRIC: Denies anxiety or depression. [facility] Past Medical History Medical History Acid reflux Acute respiratory failure with hypoxia Adrenal adenoma benign COVID-19 virus infection DVT prophylaxis Elevated LFTs Hepatic steatosis and liver cyst Hiatal hernia Hypertension Hypothyroidism ILD (interstitial lung disease) Irritable bowel Macrocytic anemia Migraines Obesity Osteoporosis Pneumonia due to COVID-19 virus Rhinitis Vulvar inflammation Surgical History Surgical History History of ankle surgery (~2000) ORIF right ankle History of bilateral cataract extraction History of carpal tunnel surgery of right wrist (~2015) History of colonoscopy with polypectomy most recent December 2018 with edematous polyps History of hemorrhoidectomy (~2011) History of medial meniscus repair of right knee (~2014) History of reconstructive repair of rectocele (~1995) History of vaginal hysterectomy (~1995) without oophorectomy S/P laparoscopic-assisted sigmoidectomy (~08/2018) due to chronic diverticulitis Family History Family History Sibling Hypertension Hyperlipidemia Thyroid disease it sounds as if the patient sister likely had Graves
== END 2022-11-05 12:38 | disposition short-term general hospital (02) ==
PROVIDERS: Emergency Provider Nurse Practitioner Family; PCP Internal Medicine
DX: M54.50 Low back pain, unspecified (principal); R31.9 Hematuria, unspecified; K21.9 Gastro-esophageal reflux disease without esophagitis; K76.0 Fatty (change of) liver, not elsewhere classified; I10 Essential (primary) hypertension; E03.9 Hypothyroidism, unspecified; E66.9 Obesity, unspecified; Z86.16 Personal history of COVID-19; D53.9 Nutritional anemia, unspecified; Z68.25 Body mass index [BMI] 25.0-25.9, adult; Z98.42 Cataract extraction status, left eye; Z98.41 Cataract extraction status, right eye; M81.0 Age-related osteoporosis without current pathological fracture; J84.9 Interstitial pulmonary disease, unspecified
CPT/HCPCS: 74018; 81003; 99213; G0463

== ENCOUNTER 2022-11-05 13:37 | Emergency (ER) | payer MEDICARE, SELFPAY ==
--- NOTE | ~2022-11-05 | CT_ITS ---
Non-contrast CT scan of the Abdomen and Pelvis Clinical indication: Flank pain, hematuria Technique: 2.5 mm axial scans were obtained through the abdomen and pelvis without intravenous or or al contrast. Dose reduction technique was used on this scan by utilizing automated exposure control a nd iterative reconstruction technique. The dose-length product (DLP) was 177.74 mGy-cm. COMPARISON: 06/12/2017 Findings: Images through the lung bases reveal no abnormalities. There is no evidence of renal or ureteral calculi. The kidneys and the ureters are nondilated. Small left hepatic lobe cyst noted. Spleen is mildly enlarged. The pancreas, gallbladder, and right a drenal gland appear normal. 3.3 cm left adrenal nodule is present, minimally increased in size from p rior exam. There are atherosclerotic calcifications of the aorta. There is no evidence of bowel obstruction. There is a low anterior midline ventral hernia containing loop of small bowel. No definite bowel wall thickening or obstruction evident. Small fat-containing u mbilical hernia noted. Images through the pelvis were performed. There is no evidence of ascites or lymphadenopathy. Urinary bladder unremarkable. Patient is post hysterectomy. No adnexal mass seen.There is moderate to severe T12 compression fracture, age-indeterminate. Impression: Low anterior ventral midline hernia containing small bowel. No definite bowel wall thickening or obst ruction. No renal, ureteral, or bladder stone seen. No hydronephrosis. Moderate to severe T12 compression fracture, age-indeterminate. Small fat-containing umbilical hernia. Splenomegaly. 3.3 cm left adrenal nodule, minimally increased from prior exam, consistent with benign finding. Reviewed, dictated and finalized at [facility]. Impression: Low anterior ventral midline hernia containing small bowel. No definite bowel w all thickening or obstruction. No renal, ureteral, or bladder stone seen. No hydronephrosis. Moderate to severe T12 compression fracture, age-indeterminate. Small fat-containing umbilical hernia. Splenomegaly. 3.3 cm left adrenal nodule, minimally increased from prior exam, consistent wit h benign finding.
[2022-11-05 13:43] VITALS: BP 177/59; PULSE 86; RESP 16; TEMP 36.4; O2SAT 98
[2022-11-05 14:31] LABS: Basophils Percent Auto 0.7 % (0.2-1.2); Eosinophils Absolute Auto 0.1 K/mm3 (0-0.3); Eosinophils Percent Auto 2.7 % (0-4.4); Hematocrit 27.6 % (37.0-47.0); Hemoglobin 9.1 g/dL (12.0-15.0); Immature Granulocyte Absolute 0.06 K/mm3 (0.00-0.031); Lymphocytes Absolute Auto 0.99 K/mm3 (0.9-3.2); Lymphocytes Percent Auto 33.8 % (18.3-44.2); Mean Corpuscular Hemoglobin 34.9 pg (26-34); Mean Corpuscular Volume 105.7 fl (80-100); Mean Platelet Volume 11.9 fl (7.4-10.4); Monocytes Absolute Auto 0.4 K/mm3 (0.1-0.6); Monocytes Percent Auto 13.3 % (2.6-8.5); Neutrophils Absolute Auto 1.4 K/mm3 (1.3-6.7); Neutrophils Percent Auto 47.5 % (45.5-73.1); Platelet Count Result 269 k/mm3 (150-375); Red Blood Count 2.61 M/mm3 (4.2-5.4); Red Cell Distribution Width 23.8 % (11.5-14.5); White Blood Count 2.9 K/mm3 (4.5-10.0)
[2022-11-05 14:32] LABS: Appearance Urine Clear (Clear); Bilirubin Urine Negative (Negative); Blood Urine Negative (Negative); Color Urine Yellow (Yellow); Glucose Urine UA Negative (Negative); Ketones Urine Negative (Negative); Leukocyte Esterase Ur Negative LEU/UL (Negative); Nitrate Urine Negative (Negative); Protein Urine Negative (Negative); Specific Grav Ur 1.011 (1.001-1.035); pH Urine 7.5 (5.0-9.0)
[2022-11-05 14:43] LABS: Alanine Aminotransferase 17 U/L (6-35); Albumin Level 4.1 g/dL (3.5-5.1); Alkaline Phosphatase 53 U/L (38-126); Anion Gap 8 mmol/L (8-16); Aspartate Amino Transferase 19 U/L (14-36); Bilirubin,Total 1.1 mg/dL (0.2-1.3); Blood Urea Nitrogen 10 mg/dL (7-17); Carbon Dioxide 30 mmol/L (22-30); Chloride 101 mmol/L (98-107); Estimated CRCL calculation 60 ml/min; Estimated Glomerular Filt Rate > 60; Glucose 98 mg/dL (65-110); Potassium 4.2 mmol/L (3.4-5.0); Sodium 139 mmol/L (137-145)
[2022-11-05 14:44] LABS: Add Urine Microscopic? NO
--- NOTE | 2022-11-05 14:53 | ED.FEMALEGU ---
HPI - Female Genitourinary General Chief complaint: Urogenital-Female Stated complaint: sent from urgent care with kidney stone Time Seen by Provider: 11/05/22 14:19 History of Present Illness HPI Narrative: 82-year-old female with history of 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 syndrome presented to ED for evaluation of flank pain and chills. Patient has been receiving treatment for her 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 syndrome in the form of injections and did receive a blood transfusion of packed red blood cells yesterday. Last night patient was having bilateral flank pain and also had possible chills. Patient was unsure if she was having a urinary tract infection and she presented to [facility] for evaluation. At the [facility] they did an x-ray and found a stone in the right kidney. Patient was also reported to have hematuria. Upon arrival to the emergency department patient denies any complaints Related Data Home Medications Medication Instructions Recorded Confirmed calcium carb 300 mg-D3 20 mcg-mag 1 tablet PO DAILY 04/11/19 11/05/22 ox 25 mg-newspaper copy editor 0.5 [id number] tablet (Caltrate-D3 Plus Minerals) spironolactone 25 mg tablet 25 mg PO DAILY 04/11/19 11/05/22 lansoprazole 15 mg capsule,delayed 15 mg PO DAILY 04/11/22 11/05/22 release (Prevacid 24Hr) loratadine 10 mg tablet (Claritin) 10 mg PO DAILY 04/11/22 11/05/22 cyanocobalamin (vitamin B-12) 1,000 mcg PO DAILY 09/29/22 11/05/22 1,000 mcg capsule Allergies Allergy/AdvReac Type Severity Reaction Status Date / Time cephalexin AdvReac Mild YEAST Verified 11/01/22 11:58 INFECTION cefdinir AdvReac Unknown Unknown Verified 11/01/22 11:58 clarithromycin AdvReac Unknown Unknown Verified 11/01/22 11:58 clindamycin AdvReac Unknown Other Verified 11/01/22 11:58 codeine AdvReac Unknown Unknown Verified 11/01/22 11:58 dexamethasone AdvReac Unknown Unknown Verified 11/01/22 11:58 doxycycline AdvReac Unknown Unknown Verified 11/01/22 11:58 morphine AdvReac Unknown Headache Verified 11/05/22 11:23 tobramycin AdvReac Unknown Unknown Verified 11/01/22 11:58 Review of Systems Review of Systems: All systems reviewed & are unremarkable except as noted in HPI and below PMFSH Past Medical History Medical History Acid reflux Acute respiratory failure with hypoxia Adrenal adenoma benign COVID-19 virus infection DVT prophylaxis Elevated LFTs Hepatic steatosis and liver cyst Hiatal hernia Hypertension Hypothyroidism ILD (interstitial lung disease) Irritable bowel Macrocytic anemia Migraines Obesity Osteoporosis Pneumonia due to COVID-19 virus Rhinitis Vulvar inflammation Surgical History Surgical History History of ankle surgery (~2000) ORIF right ankle History of bilateral cataract extraction History of carpal tunnel surgery of right wrist (~2015) History of colonoscopy with polypectomy most recent December 2018 with edematous polyps History of hemorrhoidectomy (~2011) History of medial meniscus repair of right knee (~2014) History of reconstructive repair of rectocele (~1995) History of vaginal hysterectomy (~1995) without oophorectomy S/P laparoscopic-assisted sigmoidectomy (~08/2018) due to chronic diverticulitis Family History Family History Sibling Hypertension Hyperlipidemia Thyroid disease it sounds as if the patient sister likely had Graves disease with a thyroidectomy and then became ill because her thyroid hormone was not replaced. Acute myocardial infarction Brother early-onset Artificial cardiac pacemaker brother Mother Hypertension Thyroid disease It sounds as if her mother likely had Graves disease Father Emphysema lung Grandparent Lung cancer Other Carcinoma of colon Family history of malignant neoplasm of breast Family history of pancreatic cancer Social
[2022-11-05 15:00] LABS: Platelet Estimate Adequate (Adequate)
[2022-11-05 15:01] LABS: Anisocytosis 3+ (NORMAL); Macrocytosis 2+ (NORMAL)
[2022-11-05 15:02] LABS: Schistocytes None Seen (NORMAL)
[2022-11-05 16:42] VITALS: BP 142/58; PULSE 77; RESP 16; O2SAT 97
== END 2022-11-05 16:43 | disposition home or self-care (01) ==
PROVIDERS: Emergency Medicine; Emergency Provider Emergency Medicine; PCP Internal Medicine
DX: R10.9 Unspecified abdominal pain (principal); D46.9 Myelodysplastic syndrome, unspecified; I10 Essential (primary) hypertension; J84.9 Interstitial pulmonary disease, unspecified; D53.9 Nutritional anemia, unspecified; E03.9 Hypothyroidism, unspecified; E66.9 Obesity, unspecified; Z68.25 Body mass index [BMI] 25.0-25.9, adult; M81.0 Age-related osteoporosis without current pathological fracture; K58.9 Irritable bowel syndrome, unspecified; K21.9 Gastro-esophageal reflux disease without esophagitis; Z86.16 Personal history of COVID-19; Z87.01 Personal history of pneumonia (recurrent); Z98.42 Cataract extraction status, left eye; Z98.41 Cataract extraction status, right eye; Z90.710 Acquired absence of both cervix and uterus; Z90.49 Acquired absence of other specified parts of digestive tract; Z77.22 Contact with and (suspected) exposure to environmental tobacco smoke (acute) (chronic); K43.9 Ventral hernia without obstruction or gangrene; K42.9 Umbilical hernia without obstruction or gangrene; R16.1 Splenomegaly, not elsewhere classified; E27.8 Other specified disorders of adrenal gland
CPT/HCPCS: 36415; 74018; 74176; 80053; 81003; 85025; 99284

== ENCOUNTER 2022-11-18 13:59 | Outpatient (CLI) | payer MEDICARE, SELFPAY ==
--- NOTE | ~2022-11-18 | US_ITS ---
EXAMINATION: US carotid duplex BI DATE: 11/18/2022 15:44 INDICATION: Other specified symptoms and signs involving the circulatory system. Cerebral atheroscler osis. TECHNIQUE: Grayscale, color Doppler, and pulsed Doppler images of the cervical carotid arteries were obtained. The degree of vessel stenosis is placed in one of the following categories: normal, <50%, 5 0-69%, >=70% but less than near-occlusion, near-occlusion, or total occlusion. Note that percent sten osis relative to normal distal artery lumen diameter is indirectly measured from velocity measurement s as described by Joby, et al. Radiology 2003; 229:[id number]. COMPARISON: None. FINDINGS: RIGHT: The right common carotid artery (CCA) peak systolic velocity (PSV) is 115 cm/s. The right internal ca rotid artery (ICA) PSV is 136 cm/s. The right ICA end-diastolic velocity (EDV) is 34 cm/s. The right ICA/CCA PSV ratio is 1.2. Grayscale and color Doppler images including secondary Doppler criteria yie ld an estimate of <50% diameter reduction from plaque in the ICA. The external carotid artery (ECA) P SV is 116 cm/s. There is antegrade flow in the right vertebral artery. [place] sign of the vertebral a rtery waveform with transient mid systolic flow reversal consistent with likely presubclavian steal r elated to a significant stenosis of the right subclavian artery proximal to the takeoff of the right vertebral artery. LEFT: The left CCA PSV is 142 cm/s. The left ICA PSV is 125 cm/s. The left ICA EDV is 28 cm/s. The left ICA /CCA PSV ratio is 0.9. Grayscale and color Doppler images including secondary Doppler criteria yield an estimate of <50% diameter reduction from plaque in the ICA. The ECA PSV is 126 cm/s. There is ante grade flow in the left vertebral artery. IMPRESSION: 1. <50% stenosis in the right internal carotid artery. 2. <50% stenosis in the left internal carotid artery. 3. Antegrade flow but with transiently mid systolic flow reversal at the right vertebral artery which can be seen with presubclavian steal with hemodynamically significant stenosis in the more proximal right subclavian artery. Reviewed, dictated and finalized at location A. IMPRESSION: 1. <50% stenosis in the right internal carotid artery. 2. <50% stenosis in the left internal carotid artery. 3. Antegrade flow but with transiently mid systolic flow reversal at the right vertebral artery which can be seen with presubclavian steal with hemodynamicall y significant stenosis in the more proximal right subclavian artery.
== END 2022-11-18 14:00 | disposition home or self-care (01) ==
PROVIDERS: PCP Internal Medicine; Visit Provider Nurse Practitioner
DX: R09.89 Other specified symptoms and signs involving the circulatory and respiratory systems (principal); I65.23 Occlusion and stenosis of bilateral carotid arteries
CPT/HCPCS: 93880

== ENCOUNTER 2022-11-29 14:06 | Outpatient (CLI) | payer MEDICARE, SELFPAY ==
--- NOTE | ~2022-11-29 | US_ITS ---
EXAMINATION: US venous doppler LE RT DATE: 11/29/2022 15:30 INDICATION: Right lower limb pain TECHNIQUE: Grayscale ultrasound images without and with compression and Doppler ultrasound images of the right lower extremity veins were obtained. COMPARISON: 01/24/2008 FINDINGS: The visualized portions of right common femoral vein, profunda (deep) femoral vein, femoral vein, pop liteal vein, peroneal trunk, posterior tibial veins, peroneal veins, gastrocnemius vein and greater s aphenous vein outflow are patent. IMPRESSION: 1. No deep venous thrombosis in the right lower limb. Reviewed, dictated and finalized at location A.
== END 2022-11-29 14:07 | disposition home or self-care (01) ==
PROVIDERS: PCP Internal Medicine; Visit Provider Clinical Nurse Specialist
DX: M79.661 Pain in right lower leg (principal); M71.20 Synovial cyst of popliteal space [Baker], unspecified knee
CPT/HCPCS: 93971

== ENCOUNTER 2022-12-15 12:40 | Outpatient (CLI) | payer MEDICARE, SELFPAY ==
--- NOTE | 2022-12-15 | ECHO_ITS ---
Patient Info Name: Venessa Villar Age: 82 years : 1940 Gender: Female Ht: 60 in Wt: 133 lbs BSA: 1.61 m2 HR: 86 bpm BP: 147 / 62 mmHg Heart Rhythm: Sinus Rhythm Technical Quality: Good Exam Date: 12/15/2022 1:30 PM Exam Location: [facility] Patient Status: Outpatient Admit Date: 12/15/2022 Staff Ordering Physician: Naty Wang NP Fashion Designer: Bindu Antonio RCS Attending Provider: Naty Wang NP Referring Physician: Felipe ANGULO; Exam Type: CA echo doppler color flow Study Info Indications - DYSPNEA Complete two-dimensional, color flow and Doppler transthoracic echocardiogram is performed. Summary 1. Complete two-dimensional, color flow and Doppler transthoracic echocardiogram is performed. 2. Left ventricular chamber dimension is normal. 3. Left ventricular systolic function is normal, estimated at 60-65%. 4. There is moderate asymmetric septal increased left ventricular wall thickness. 5. The left ventricular diastolic function is grade I diastolic dysfunction. 6. E/e' 11 is mildly elevated. 7. Left atrial chamber dimension is moderately enlarged. 8. There is mild aortic valve sclerosis. 9. There is trace mitral valve regurgitation. 10. There is trace tricuspid valve regurgitation. 11. No pulmonary hypertension, estimated pulmonary arterial systolic pressure is 32 mmHg. 12. There is trace pulmonic regurgitation. Left Ventricle E/e' 11 is mildly elevated. Left ventricular chamber dimension is normal. Left ventricular systolic function is normal, estimated at 60-65%. There is moderate asymmetric septal increased left ventricular wall thickness. The left ventricular diastolic function is grade I diastolic dysfunction. Right Ventricle Right ventricular chamber dimension is normal. Right ventricular systolic function is normal. Left Atria Left atrial chamber dimension is moderately enlarged. Right Atria Right atrial chamber dimension is normal. Aortic Valve The aortic valve is trileaflet. There is mild aortic valve sclerosis. There is no aortic valve stenosis. There is no aortic valve regurgitation. Pulmonic Valve There is trace pulmonic regurgitation. Mitral Valve There is no mitral valve stenosis. There is trace mitral valve regurgitation. Tricuspid Valve There is trace tricuspid valve regurgitation. No pulmonary hypertension, estimated pulmonary arterial systolic pressure is 32 mmHg. Pericardium/Pleural There is no pericardial effusion. Inferior Vena Cava Normal inferior vena cava with >50% collapse upon inspiration consistent with normal right atrial pressure, 5 mmHg. Aorta The aortic root size at the sinus of Valsalva is normal. Left Ventricular Outflow Tract Name Value Normal LVOT 2D LVOT Diameter 2.0 cm LVOT Doppler LVOT Peak Gradient 4 mmHg LVOT Mean Gradient 2 mmHg LVOT VTI 21 cm LVOT VTI/AV VTI Ratio 0.9 LVOT Stroke Volume 66 ml LVOT CO 13.4 l/min LVOT CI 8.3 l/min/m2 Pulmonic Valve
== END 2022-12-15 12:41 | disposition home or self-care (01) ==
PROVIDERS: PCP Internal Medicine; Visit Provider Nurse Practitioner
DX: R06.00 Dyspnea, unspecified (principal)
CPT/HCPCS: 93306

== ENCOUNTER 2022-12-22 11:10 | Emergency (ER) | payer MEDICARE, SELFPAY ==
[2022-12-22 11:45] VITALS: BP 141/52; PULSE 96; RESP 18; TEMP 36.6; O2SAT 100
--- NOTE | 2022-12-22 12:00 | ED.GENADULT ---
HPI - General Adult General Chief complaint: Unspecified Stated complaint: Abdominal Pain/UTI Time Seen by Provider: 12/22/22 12:00 Source: patient, RN notes reviewed and old records reviewed Mode of arrival: ambulatory Limitations: no limitations History of Present Illness HPI narrative: 82 year old female who presents to [facility] care with complaints of abdominal cramping and loose stools starting yesterday with last stool at 0130 this morning. Patient reports that she took an COVID test at home with a faint positive reading. Patient states that she had some urinary burning but denies any burning or pain with urination today. Patient denies any known fevers or chills. MD complaint: abdominal cramping and diarrhea Onset (ago): day(s) (since yesterday) Severity: mild Treatments prior to arrival: none Related Data Home Medications Medication Instructions Recorded Confirmed calcium carb 300 mg-D3 20 mcg-mag 1 tablet PO DAILY 04/11/19 12/22/22 ox 25 mg-steelscope operator 0.5 [id number] tablet (Caltrate-D3 Plus Minerals) spironolactone 25 mg tablet 25 mg PO DAILY 04/11/19 12/22/22 lansoprazole 15 mg capsule,delayed 15 mg PO DAILY 04/11/22 12/22/22 release (Prevacid 24Hr) loratadine 10 mg tablet (Claritin) 10 mg PO DAILY 04/11/22 12/22/22 cyanocobalamin (vitamin B-12) 1,000 mcg PO DAILY 09/29/22 12/22/22 1,000 mcg capsule metoprolol succinate 25 mg 12.5 mg PO DAILY 12/22/22 12/22/22 tablet,extended release 24 hr Allergies Allergy/AdvReac Type Severity Reaction Status Date / Time cephalexin AdvReac Mild YEAST Verified 12/13/22 13:00 INFECTION cefdinir AdvReac Unknown Unknown Verified 12/13/22 13:00 clarithromycin AdvReac Unknown Unknown Verified 12/13/22 13:00 clindamycin AdvReac Unknown Other Verified 12/13/22 13:00 codeine AdvReac Unknown Unknown Verified 12/13/22 13:00 dexamethasone AdvReac Unknown Unknown Verified 12/13/22 13:00 doxycycline AdvReac Unknown Unknown Verified 12/13/22 13:00 morphine AdvReac Unknown Headache Verified 12/13/22 13:00 tobramycin AdvReac Unknown Unknown Verified 12/13/22 13:00 Review of Systems Review of Systems: CONSTITUTIONAL: Denies fever, chills, or sweats. EYES: Denies visual changes, redness, or discharge. ENT: Denies rhinorrhea, congestion, sore throat, or otalgia. CARDIOVASCULAR: Denies chest pain, palpitations, or edema. RESPIRATORY: Denies cough or dyspnea. GASTROINTESTINAL: Denies acute abdominal pain,no nausea, vomiting, positive diarrhea, none since 129 GENITOURINARY: Denies dysuria today or hematuria.denies any CVA tenderness SKIN: Denies rash or itching. MUSCULOSKELETAL: Denies back pain, joint pain, or myalgia. NEUROLOGIC: Denies headache, numbness, or weakness. PSYCHIATRIC: Denies anxiety or depression. All systems reviewed & are unremarkable except as noted in HPI and below PMFSH Past Medical History Medical History Acid reflux Acute respiratory failure with hypoxia Adrenal adenoma benign COVID-19 virus infection DVT prophylaxis Elevated LFTs Hepatic steatosis and liver cyst Hiatal hernia Hypertension Hypothyroidism ILD (interstitial lung disease) Irritable bowel Macrocytic anemia Migraines Obesity Osteoporosis Pneumonia due to COVID-19 virus Rhinitis Vulvar inflammation Surgical History Surgical History History of ankle surgery (~2000) ORIF right ankle History of bilateral cataract extraction History of carpal tunnel surgery of right wrist (~2015) History of colonoscopy with polypectomy most recent December 2018 with edematous polyps History of hemorrhoidectomy (~2011) History of medial meniscus repair of right knee (~2014) History of reconstructive repair of rectocele (~1995) History of vaginal hysterectomy (~1995) without oophorectomy S/P laparoscopic-assisted sigmoidectomy (~08/2018) due to chronic diverticulitis Family
== END 2022-12-22 12:13 | disposition home or self-care (01) ==
PROVIDERS: Emergency Provider Registered Nurse; PCP Internal Medicine
DX: K52.9 Noninfective gastroenteritis and colitis, unspecified (principal); I10 Essential (primary) hypertension; E03.9 Hypothyroidism, unspecified; Z86.718 Personal history of other venous thrombosis and embolism; Z79.899 Other long term (current) drug therapy; Z20.822 Contact with and (suspected) exposure to COVID-19
CPT/HCPCS: 81003; 87426; 99213; C9803; G0463

== ENCOUNTER 2023-01-08 13:25 | Emergency (ER) | payer MEDICARE, SELFPAY ==
--- NOTE | ~2023-01-08 | XR_ITS ---
EXAMINATION: XR chest 2V Exam Date/Time: 01/08/2023 13:50 CDT HISTORY: SOB Comparison: 01/06/2020; CT chest 04/28/2022. RESULT: Lines, tubes, and devices: None. Lungs and pleura: Biapical pleural scarring. Senescent changes.. Cardiomediastinal silhouette: Stable. Other: No acute osseous or upper abdominal finding. Chronic multilevel vertebral body compression fr actures. IMPRESSION: No acute cardiopulmonary process. Reviewed, dictated and finalized at [facility].
--- NOTE | 2023-01-08 13:27 | ECG_ITS ---
Measurements Intervals [place] Rate: 101 P: 38 OR: 157 QRS: 7 QRSD: 98 T: 31 QT: 326 QTc: 423 Interpretive Statements SINUS TACHYCARDIA NONSPECIFIC ST AND T-WAVE ABNORMALITY ABNORMAL ECG COMPARED TO ECG 08/17/2022 21:04:15 SINUS TACHYCARDIA NOW PRESENT Electronically Signed On 01-09-2023 9:24:47 CDT by Shade Ignacio M.D.
[2023-01-08 13:31] VITALS: BP 170/64; PULSE 104; RESP 14; TEMP 36.4; O2SAT 100
[2023-01-08 13:42] VITALS: PULSE 102; O2SAT 96
[2023-01-08 13:42] LABS: Hematocrit 23.6 % (37.0-47.0); Hemoglobin 7.7 g/dL (12.0-15.0); Mean Corpuscular HGB Conc 32.6 g/dl (32-36); Mean Corpuscular Hemoglobin 40.5 pg (26-34); Mean Corpuscular Volume 124.2 fl (80-100); Platelet Count Result 335 k/mm3 (150-375); Red Cell Distribution Width 21.7 % (11.5-14.5); White Blood Count 4.3 K/mm3 (4.5-10.0)
[2023-01-08 13:53] LABS: Band Neutrophils Percent 14 % (0-6); Monocytes Absolute Manual 0.34 K/mm3 (0.1-0.90); Monocytes Percent Manual 8 % (3-9); Neutrophils Absolute Manual 2.75 K/mm3 (1.7-7.2); Neutrophils Percent Manual 50 % (46-73); Total Cells Counted 100
[2023-01-08 13:54] LABS: Anisocytosis 1+ (NORMAL); Hypochromasia 2+ (NORMAL); Ovalocytes 1+ (NORMAL); Platelet Estimate Adequate (Adequate); Schistocytes None Seen (NORMAL)
[2023-01-08 13:55] LABS: Alanine Aminotransferase 19 U/L (6-35); Albumin Level 4.3 g/dL (3.5-5.1); Alkaline Phosphatase 58 U/L (38-126); Anion Gap 11 mmol/L (8-16); Aspartate Amino Transferase 25 U/L (14-36); Bilirubin,Total 1.1 mg/dL (0.2-1.3); Blood Urea Nitrogen 11 mg/dL (7-17); Calcium 9.1 mg/dL (8.4-10.2); Carbon Dioxide 27 mmol/L (22-30); Chloride 98 mmol/L (98-107); Estimated CRCL calculation 39 ml/min; Estimated Glomerular Filt Rate > 60; Glucose 154 mg/dL (65-110); Potassium 3.9 mmol/L (3.4-5.0); Sodium 136 mmol/L (137-145)
[2023-01-08 14:49] VITALS: BP 130/57; PULSE 89; RESP 20; O2SAT 100
--- NOTE | 2023-01-08 14:54 | ED.SOB ---
HPI - SOB/Dyspnea General Chief Complaint: Shortness of Breath/Dyspnea Stated Complaint: SOB Time Seen by Provider: 01/08/23 14:03 History of Present Illness HPI Narrative: Patient is an 82-year-old female with a history of MDS, hypothyroidism presenting with shortness of breath. Patient states that she has been dealing with a lot of shortness of breath ever since being diagnosed with MDS. States that she has had to get blood transfusions in the past. States that her last transfusion was about 2 months ago. Around this time she was switched to injections to help her blood counts so she would no longer have to get transfusions. Unfortunately, she continues to feel short of breath especially with exertion. Today she felt very short of breath even just walking around her house so she came in for evaluation because she was concerned that her blood levels were low. She denies fevers or chills, cough, nasal congestion, sore throat, nausea or vomiting, diarrhea. She denies chest pain, palpitations, lightheadedness, leg swelling. Related Data Home Medications Medication Instructions Recorded Confirmed calcium carb 300 mg-D3 20 mcg-mag 1 tablet PO DAILY 04/11/19 01/03/23 ox 25 mg-copra processor 0.5 [id number] tablet (Caltrate-D3 Plus Minerals) lansoprazole 15 mg capsule,delayed 15 mg PO DAILY 04/11/22 01/03/23 release (Prevacid 24Hr) loratadine 10 mg tablet (Claritin) 10 mg PO DAILY 04/11/22 01/03/23 cyanocobalamin (vitamin B-12) 1,000 mcg PO DAILY 09/29/22 01/03/23 1,000 mcg capsule metoprolol succinate 25 mg 12.5 mg PO DAILY 12/22/22 01/03/23 tablet,extended release 24 hr spironolactone 25 mg tablet 25 mg PO DAILY 12/26/22 01/03/23 Allergies Allergy/AdvReac Type Severity Reaction Status Date / Time cephalexin AdvReac Mild YEAST Verified 01/03/23 13:26 INFECTION cefdinir AdvReac Unknown Unknown Verified 01/03/23 13:26 clarithromycin AdvReac Unknown Unknown Verified 01/03/23 13:26 clindamycin AdvReac Unknown Other Verified 01/03/23 13:26 codeine AdvReac Unknown Unknown Verified 01/03/23 13:26 dexamethasone AdvReac Unknown Unknown Verified 01/03/23 13:26 doxycycline AdvReac Unknown Unknown Verified 01/03/23 13:26 morphine AdvReac Unknown Headache Verified 01/03/23 13:26 tobramycin AdvReac Unknown Unknown Verified 01/03/23 13:26 Review of Systems Review of Systems: All systems reviewed & are unremarkable except as noted in HPI and below PMFSH Past Medical History Medical History Acid reflux Acute respiratory failure with hypoxia Adrenal adenoma benign COVID-19 virus infection DVT prophylaxis Elevated LFTs Hepatic steatosis and liver cyst Hiatal hernia Hypertension Hypothyroidism ILD (interstitial lung disease) Irritable bowel Macrocytic anemia Migraines Obesity Osteoporosis Pneumonia due to COVID-19 virus Rhinitis Vulvar inflammation Surgical History Surgical History History of ankle surgery (~2000) ORIF right ankle History of bilateral cataract extraction History of carpal tunnel surgery of right wrist (~2015) History of colonoscopy with polypectomy most recent December 2018 with edematous polyps History of hemorrhoidectomy (~2011) History of medial meniscus repair of right knee (~2014) History of reconstructive repair of rectocele (~1995) History of vaginal hysterectomy (~1995) without oophorectomy S/P laparoscopic-assisted sigmoidectomy (~08/2018) due to chronic diverticulitis Family History Family History Sibling Hypertension Hyperlipidemia Thyroid disease it sounds as if the patient sister likely had Graves disease with a thyroidectomy and then became ill because her thyroid hormone was not replaced. Acute myocardial infarction Brother early-onset Artificial cardiac pacemaker brother Mother
[2023-01-08 15:44] LABS: Troponin I < 0.012 ng/mL (0.000-0.034)
[2023-01-08 16:01] LABS: Influenza A QL RT-PCR Negative (Negative); Influenza B QL RT-PCR Negative (Negative); SARS-CoV-2 RNA PCR Negative (Negative)
[2023-01-08 16:53] VITALS: BP 139/58; PULSE 97; RESP 19; O2SAT 95
--- NOTE | 2023-01-08 17:17 | PC.NURSE ---
Walking pulse ox assessment: pt c/o SOB when ambulating and pulse oximeter showed a drop to 80% at the lowest. made aware.
[2023-01-08 18:20] VITALS: BP 131/55; PULSE 84; RESP 20; O2SAT 94
== END 2023-01-08 18:22 | disposition home or self-care (01) ==
PROVIDERS: Emergency Provider Emergency Medicine; PCP Internal Medicine
DX: R06.00 Dyspnea, unspecified (principal); D46.9 Myelodysplastic syndrome, unspecified; D53.9 Nutritional anemia, unspecified; J84.9 Interstitial pulmonary disease, unspecified; Z20.822 Contact with and (suspected) exposure to COVID-19; I10 Essential (primary) hypertension; E03.9 Hypothyroidism, unspecified; E66.9 Obesity, unspecified; Z68.25 Body mass index [BMI] 25.0-25.9, adult; K58.9 Irritable bowel syndrome, unspecified; M81.0 Age-related osteoporosis without current pathological fracture; Z87.01 Personal history of pneumonia (recurrent); Z86.16 Personal history of COVID-19; Z98.42 Cataract extraction status, left eye; Z98.41 Cataract extraction status, right eye; Z90.710 Acquired absence of both cervix and uterus; Z90.49 Acquired absence of other specified parts of digestive tract; Z77.22 Contact with and (suspected) exposure to environmental tobacco smoke (acute) (chronic); R00.0 Tachycardia, unspecified; R94.31 Abnormal electrocardiogram [ECG] [EKG]
CPT/HCPCS: 36415; 71046; 80053; 84484; 85025; 87636; 93005; 99284

== ENCOUNTER 2023-01-26 07:23 | Outpatient (RCR) | payer MEDICARE, SELFPAY ==
[2023-01-26 08:08] LABS: Hematocrit 21.1 % (37.0-47.0)
[2023-01-26 08:23] LABS: Hemoglobin 6.7 g/dL (12.0-15.0)
[2023-01-26] MEDS: diphenhydrAMINE HCl CAP 25 MG CAPSULE PO (08:27)
[2023-01-26] MEDS: ACETAMINOPHEN 325 MG TABLET 650 MG PO (08:27)
[2023-01-26] MEDS: SODIUM CHLORIDE 0.9% IV 250 ML 30 ML IV CONT (08:27)
[2023-01-26 08:48] VITALS: BP 130/47; PULSE 80; RESP 20; TEMP 37.3; O2SAT 100
[2023-01-26 09:03] VITALS: BP 137/58; PULSE 75; RESP 18; TEMP 36.8; O2SAT 97
[2023-01-26 10:03] VITALS: BP 131/61; PULSE 75; RESP 18; TEMP 36.4; O2SAT 96
[2023-01-26 11:03] VITALS: BP 137/58; PULSE 71; RESP 18; TEMP 36.6; O2SAT 96
[2023-01-26 11:35] VITALS: BP 155/63; PULSE 71; RESP 18; TEMP 36.6; O2SAT 96
== END 2023-04-26 23:59 | disposition home or self-care (01) ==
LOC: ANHCPCTRAN 07:23
PROVIDERS: PCP Internal Medicine; Visit Provider Internal Medicine Hematology & Oncology
DX: D64.9 Anemia, unspecified (principal)
CPT/HCPCS: 36415; 36430; 85014; 85018; 86850; 86900; 86901; 86923; A9270; J7050; P9016

== ENCOUNTER 2023-03-08 08:04 | Outpatient (RCR) | payer MEDICARE, SELFPAY ==
[2023-03-08 08:45] VITALS: BP 94/66; PULSE 100; RESP 16; TEMP 36.9; O2SAT 97
[2023-03-08] MEDS: ACETAMINOPHEN 325 MG TABLET 650 MG PO (09:00)
[2023-03-08] MEDS: diphenhydrAMINE HCl CAP 25 MG CAPSULE PO (09:01)
[2023-03-08] MEDS: SODIUM CHLORIDE 0.9% IV 250 ML 30 ML IV CONT (09:01)
[2023-03-08 09:52] VITALS: BP 148/76; PULSE 84; RESP 16; TEMP 36.6; O2SAT 100
[2023-03-08 10:07] VITALS: BP 125/59; PULSE 80; RESP 16; TEMP 36.8; O2SAT 100
[2023-03-08 11:07] VITALS: BP 160/75; PULSE 80; RESP 16; TEMP 36.3; O2SAT 99
[2023-03-08 12:07] VITALS: BP 130/71; PULSE 80; RESP 16; TEMP 36.6; O2SAT 100
[2023-03-08 12:24] VITALS: BP 155/73; PULSE 83; RESP 16; TEMP 36.4; O2SAT 96
== END 2023-06-06 23:59 | disposition home or self-care (01) ==
LOC: ANHCPCTRAN 08:04
PROVIDERS: PCP Internal Medicine; Visit Provider Internal Medicine Hematology & Oncology
DX: D64.9 Anemia, unspecified (principal)
CPT/HCPCS: 36415; 36430; 86850; 86900; 86901; 86923; A9270; J7050; P9016

== ENCOUNTER 2023-04-04 10:30 | Outpatient (CLI) | payer MEDICARE, SELFPAY ==
[2023-04-04 11:06] LABS: Hematocrit 25.5 % (37.0-47.0); Hemoglobin 7.9 g/dL (12.0-15.0)
== END 2023-04-04 10:31 | disposition home or self-care (01) ==
PROVIDERS: PCP Internal Medicine; Visit Provider Internal Medicine Nephrology
DX: R19.5 Other fecal abnormalities (principal); D64.9 Anemia, unspecified
CPT/HCPCS: 36415; 85014; 85018

== ENCOUNTER 2023-04-19 08:26 | Outpatient (RCR) | payer MEDICARE, SELFPAY ==
[2023-04-19 08:39] VITALS: BP 111/68; PULSE 87; RESP 18; TEMP 36.7; TEMP 36.8; O2SAT 99; BMI 26.2
[2023-04-19] MEDS: ACETAMINOPHEN 325 MG TABLET 650 MG PO (08:58)
[2023-04-19] MEDS: diphenhydrAMINE HCl CAP 25 MG CAPSULE PO (08:58)
[2023-04-19] MEDS: SODIUM CHLORIDE 0.9% IV 250 ML 30 ML IV CONT (08:59)
[2023-04-19 09:13] VITALS: BP 95/65; PULSE 87; RESP 16; TEMP 36.7; O2SAT 95
[2023-04-19 09:34] VITALS: BP 95/52; PULSE 77; RESP 16; TEMP 37; O2SAT 98
--- NOTE | 2023-04-19 09:43 | PC.NURSE ---
transfusion now infusing at 125 cc/hr vi pump. no reactions or pt distress
[2023-04-19 10:34] VITALS: BP 138/68; PULSE 75; RESP 16; TEMP 36.8; O2SAT 97
[2023-04-19 11:34] VITALS: BP 120/70; PULSE 79; RESP 18; TEMP 37.2; O2SAT 97
[2023-04-19 12:00] VITALS: BP 126/58; PULSE 77; RESP 18; TEMP 36.9; O2SAT 98
== END 2023-07-18 23:59 | disposition home or self-care (01) ==
LOC: ANHCPCTRAN 08:26
PROVIDERS: PCP Internal Medicine; Visit Provider Internal Medicine Hematology & Oncology
DX: D64.9 Anemia, unspecified (principal)
CPT/HCPCS: 36415; 36430; 86850; 86900; 86901; 86923; A9270; J7050; P9016

== ENCOUNTER 2023-04-28 11:18 | Outpatient (CLI) | payer MEDICARE, SELFPAY ==
[2023-04-28 11:47] LABS: IFOB Positive Control Positive; Immunochemical Fecal Occult Bl Negative (N)
== END 2023-04-28 11:19 | disposition home or self-care (01) ==
LOC: ANHLAB 11:24
PROVIDERS: PCP Internal Medicine; Visit Provider Internal Medicine Nephrology
DX: R19.5 Other fecal abnormalities (principal); D64.9 Anemia, unspecified
CPT/HCPCS: 82274

== ENCOUNTER 2023-05-31 07:32 | Outpatient (RCR) | payer MEDICARE, SELFPAY ==
[2023-05-31] MEDS: SODIUM CHLORIDE 0.9% IV 250 ML 30 ML IV CONT (08:05)
[2023-05-31] MEDS: ACETAMINOPHEN 325 MG TABLET 650 MG PO (08:07)
[2023-05-31] MEDS: diphenhydrAMINE HCl CAP 25 MG CAPSULE PO (08:07)
[2023-05-31 08:20] VITALS: BP 142/59; PULSE 80; RESP 16; TEMP 36.4; O2SAT 96
[2023-05-31 08:35] VITALS: BP 145/43; PULSE 81; RESP 16; TEMP 37; O2SAT 100
[2023-05-31 09:35] VITALS: BP 131/54; PULSE 74; RESP 16; TEMP 36.8; O2SAT 99
[2023-05-31 10:35] VITALS: BP 132/53; PULSE 75; RESP 16; TEMP 36.7; O2SAT 97
[2023-05-31 11:29] VITALS: BP 151/66; PULSE 76; RESP 16; TEMP 36.6; O2SAT 99
== END 2023-08-29 23:59 | disposition home or self-care (01) ==
LOC: ANHCPCTRAN 07:32
PROVIDERS: PCP Internal Medicine; Visit Provider Internal Medicine Hematology & Oncology
DX: D64.9 Anemia, unspecified (principal)
CPT/HCPCS: 36415; 36430; 86850; 86900; 86901; 86923; A9270; J7050; P9016

== ENCOUNTER 2023-07-13 07:22 | Outpatient (RCR) | payer MEDICARE, SELFPAY ==
[2023-07-13] VITALS (10 sets, daily range): BP systolic 116–152; BP diastolic 38–86; PULSE 79–84; RESP 14–16; TEMP 36.6–37.3; O2SAT 95–98
[2023-07-13] MEDS: ACETAMINOPHEN 325 MG TABLET 650 MG PO (08:20)
[2023-07-13] MEDS: SODIUM CHLORIDE 0.9% IV 250 ML 30 ML IV CONT (08:20)
[2023-07-13] MEDS: diphenhydrAMINE HCl CAP 25 MG CAPSULE PO (08:20)
[2023-07-13] MEDS: FUROSEMIDE INJ 40 MG/4 ML VIAL 20 MG IV PUSH (11:31)
== END 2023-10-11 23:59 | disposition home or self-care (01) ==
LOC: ANHCPCTRAN 07:22
PROVIDERS: PCP Internal Medicine; Visit Provider Nurse Practitioner Family
DX: D64.9 Anemia, unspecified (principal)
CPT/HCPCS: 36415; 36430; 86850; 86900; 86901; 86923; 96374; A9270; J1940; J7050; P9016

== ENCOUNTER 2023-08-12 12:22 | Inpatient (IN) | payer MEDICARE, SELFPAY ==
[2023-08-12] VITALS (7 sets, daily range): BP systolic 117–140; BP diastolic 42–84; PULSE 84–99; RESP 13–23; TEMP 36.6–37.3; O2SAT 94–99; BMI 30.2
--- NOTE | ~2023-08-12 | CT_ITS ---
EXAMINATION: CT abdomen pelvis w con DATE: 08/12/2023 13:49 INDICATION: Abdominal pain, cramping, bloody stool. Emesis, nausea. TECHNIQUE: Computed tomography (CT) of the abdomen and pelvis was performed with 100 CC Omnipaque 350 intravenous contrast. Automated exposure control and iterative reconstruction technique were employe d. Exam dose: 297.19 mGy-cm total exam DLP. COMPARISON: 11/05/2022 CT abdomen pelvis FINDINGS: The lung bases are clear of consolidation. Cardiomegaly. No pericardial or pleural effusion . There are 2 lateral segment left hepatic cysts, the larger approximately 12 mm. The gallbladder appears unremarkable. No bile duct or pancreatic duct dilatation. No pancreatic mass lesion or calcification. Splenic size is within normal range. Stable approximately 2.2 x 3 cm left adrenal adenoma. Normal right adrenal gland. No renal mass lesion or urinary tract calculus or hydroureteronephrosis. The urinary bladder is evacu ated. Status post hysterectomy. There is extensive atherosclerotic calcification but normal caliber of the abdominal aorta. No intrap eritoneal or retroperitoneal or pelvic mass lesion or adenopathy or ascites. Again noted is a lower left ventral midline abdominal wall hernia containing nonobstructed nonstrangu lated small bowel. No evidence of appendicitis There is surgical anastomosis at the distal sigmoid colon. There is prominent thickening of the wall of the sigmoid and particularly the descending colon with pericolic fat stranding in these areas, con sistent with left colitis. There are diverticula of the left and right colon. No bowel obstruction or intraperitoneal free air is detected. Chronic T12 and severe burst fracture deformity Grade 1 anterolisthesis at L4-5 due to prominent degenerative change at the apophyseal joints IMPRESSION: Left colitis, which may be inflammatory or infectious or less likely ischemic Status post partial left colon resection Nonobstructed nonspecific angulated small bowel containing lower ventral abdominal wall hernia Diverticulosis of left and right colon Stable left adrenal probable adenoma Hepatic cysts Cardiomegaly Reviewed, dictated and finalized at [facility]. Reviewed, dictated and finalized at location [facility]. IMPRESSION: Left colitis, which may be inflammatory or infectious or less like ly ischemic Status post partial left colon resection Nonobstructed nonspecific angulated small bowel containing lower ventral abdomi nal wall hernia Diverticulosis of left and right colon Stable left adrenal probable adenoma Hepatic cysts Cardiomegaly
--- NOTE | 2023-08-12 12:28 | ED.GENADULT ---
HPI - General Adult General Chief complaint: Abdominal Pain Stated complaint: abd pain Time Seen by Provider: 08/12/23 12:26 Source: patient and family Mode of arrival: ambulatory Limitations: no limitations History of Present Illness HPI narrative: 83 years old white female came to the ED by private car from home with her complaining of intermittent cramps all over the abdomen started yesterday, last up to 3 minutes each time then resolves spontaneously. She denies any aggravating or relieving factors, she denies any fever, chills, nausea, vomiting, diarrhea, constipation. History of hypertension, hypothyroidism, colon resection secondary to diverticulitis, partial hysterectomy, atrial fibrillation on aspirin. Also history of 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 syndrome /MDS. Last blood transfusion was July 13, 2023 Related Data Home Medications Medication Instructions Recorded Confirmed lansoprazole 15 mg capsule,delayed 15 mg PO DAILY 04/11/22 08/12/23 release (Prevacid 24Hr) loratadine 10 mg tablet (Claritin) 10 mg PO DAILY 04/11/22 08/12/23 cyanocobalamin (vitamin B-12) 1,000 mcg PO DAILY 09/29/22 08/12/23 1,000 mcg capsule metoprolol succinate 25 mg 12.5 mg PO DAILY 12/22/22 08/12/23 tablet,extended release 24 hr spironolactone 25 mg tablet 25 mg PO DAILY 12/26/22 08/12/23 calcium-vitamin D3-vitamin K 500 2 tablet PO DAILY 05/31/23 08/12/23 mg-100 unit-40 mcg chewable tablet clonazepam 0.5 mg tablet 0.5 mg PO BID 08/12/23 08/12/23 Allergies Allergy/AdvReac Type Severity Reaction Status Date / Time cephalexin AdvReac Mild YEAST Verified 08/02/23 13:03 INFECTION cefdinir AdvReac Unknown Unknown Verified 08/02/23 13:03 clarithromycin AdvReac Unknown Unknown Verified 08/02/23 13:03 clindamycin AdvReac Unknown Other Verified 08/02/23 13:03 codeine AdvReac Unknown Nervousness Verified 08/12/23 17:56 dexamethasone AdvReac Unknown Unknown Verified 08/02/23 13:03 doxycycline AdvReac Unknown Unknown Verified 08/02/23 13:03 morphine AdvReac Unknown Headache Verified 08/02/23 13:03 tobramycin AdvReac Unknown Unknown Verified 08/02/23 13:03 Review of Systems Review of Systems: All systems reviewed & are unremarkable except as noted in HPI and below PMFSH Past Medical History Medical History Acid reflux Acute respiratory failure with hypoxia Adrenal adenoma benign COVID-19 virus infection DVT prophylaxis Elevated LFTs Hepatic steatosis and liver cyst Hiatal hernia Hypertension Hypothyroidism ILD (interstitial lung disease) Irritable bowel Macrocytic anemia Migraines Obesity Osteoporosis Pneumonia due to COVID-19 virus Rhinitis Vulvar inflammation Surgical History Surgical History History of ankle surgery (~2000) ORIF right ankle History of bilateral cataract extraction History of carpal tunnel surgery of right wrist (~2015) History of colonoscopy with polypectomy most recent December 2018 with edematous polyps History of hemorrhoidectomy (~2011) History of medial meniscus repair of right knee (~2014) History of reconstructive repair of rectocele (~1995) History of vaginal hysterectomy (~1995) without oophorectomy S/P laparoscopic-assisted sigmoidectomy (~08/2018) due to chronic diverticulitis Family History Family History Sibling Hypertension Hyperlipidemia Thyroid disease it sounds as if the patient sister likely had Graves disease with a thyroidectomy and then became ill because her thyroid hormone was not replaced. Acute myocardial infarction Brother early-onset Artificial cardiac pacemaker brother Mother Hypertension Thyroid disease It sounds as if her mother likely had Graves disease Father Emphysema lung Grandparent Lung cancer Other Carcinoma of colon Family history of malignant neopla
[2023-08-12 13:13] LABS: Basophils Absolute Auto 0.1 K/mm3 (0.0-0.1); Basophils Percent Auto 0.6 % (0.2-1.2); Eosinophils Percent Auto 0.2 % (0-4.4); Hematocrit 26.7 % (37.0-47.0); Hemoglobin 8.7 g/dL (12.0-15.0); Immature Granulocyte Absolute 0.08 K/mm3 (0.00-0.031); Immature Granulocyte Percent A 0.8 % (0-0.5); Lymphocytes Absolute Auto 0.87 K/mm3 (0.9-3.2); Lymphocytes Percent Auto 8.8 % (18.3-44.2); Mean Corpuscular HGB Conc 32.6 g/dl (32-36); Mean Corpuscular Hemoglobin 37.7 pg (26-34); Mean Corpuscular Volume 115.6 fl (80-100); Mean Platelet Volume 11.9 fl (7.4-10.4); Monocytes Absolute Auto 1.1 K/mm3 (0.1-0.6); Monocytes Percent Auto 11.4 % (2.6-8.5); Neutrophils Absolute Auto 7.7 K/mm3 (1.3-6.7); Neutrophils Percent Auto 78.2 % (45.5-73.1); Nucleated Red Blood Cells Perc 1.6 % (0.0-0.2); Platelet Count Result 321 k/mm3 (150-375); Red Blood Count 2.31 M/mm3 (4.2-5.4); White Blood Count 9.8 K/mm3 (4.5-10.0)
[2023-08-12 13:22] LABS: INR 1.2; Prothrombin Time 15.4 Seconds (11.1-14.7)
[2023-08-12 13:24] LABS: Alanine Aminotransferase 15 U/L (6-35); Albumin Level 4.3 g/dL (3.5-5.1); Alkaline Phosphatase 59 U/L (38-126); Anion Gap 9 mmol/L (4-12); Aspartate Amino Transferase 18 U/L (14-36); Bilirubin,Total 1.5 mg/dL (0.2-1.3); Blood Urea Nitrogen 18 mg/dL (7-17); Calcium 9.2 mg/dL (8.4-10.2); Carbon Dioxide 28 mmol/L (22-30); Chloride 99 mmol/L (98-107); Estimated CRCL calculation 38 ml/min; Estimated Glomerular Filt Rate > 60; Glucose 164 mg/dL (65-110); Lactic Acid Reflex 2.5 mmol/L (0.7-2.0); Lipase 32 U/L (23-300); Sodium 136 mmol/L (137-145)
[2023-08-12] MEDS: SODIUM CHLORIDE 0.9% IV 1,000 ML 999 ML IV CONT (13:25)
[2023-08-12 13:38] LABS: Need Manual Microscopic Need Manual; Non Pathogenic Casts >20; Squamous Epithelial Cell Urine Few /hpf (Few); WBC Urine 0-5 /hpf (0-3)
[2023-08-12 13:40] LABS: Appearance Urine Cloudy (Clear); Bilirubin Urine 2+ (Negative); Blood Urine Negative (Negative); Glucose Urine UA Negative (Negative); Ketones Urine Trace mg/dL (Negative); Leukocyte Esterase Ur 1+ LEU/UL (Negative); Nitrate Urine Positive (Negative); Protein Urine 2+ mg/dL (Negative); Specific Grav Ur 1.026 (1.001-1.035); pH Urine 5.5 (5.0-9.0)
[2023-08-12 13:45] LABS: Anisocytosis 2+; Hypochromasia 1+; Macrocytosis 1+ (NORMAL); Platelet Estimate Adequate (Adequate)
[2023-08-12 13:46] LABS: Ovalocytes 2+; Schistocytes None Seen
[2023-08-12 13:49] LABS: Color Urine Dark Yellow (Yellow)
[2023-08-12 13:50] LABS: Mucus Urine Few /lpf
[2023-08-12 13:51] LABS: Add Urine Microscopic? YES; Bacteria Urine 2+ /hpf
--- NOTE | 2023-08-12 15:59 | PC.NURSE ---
Pt refused second set of blood cultures.
[2023-08-12] MEDS: levoFLOXacin 750 MG/D5W 150 ML 750 MG/150 ML BAG 100 MG IVPB (16:06)
[2023-08-12 16:11] LABS: Reflex Lactic Acid Yes or No Add Lactic
--- NOTE | 2023-08-12 16:30 | PM.IMHP ---
H&P: HPI History of Present Illness Date/Time: 08/12/23 16:30 Chief Complaint: Abdominal Cramping, Hematochezia v Melena Narrative: 83 y/o F presents here with abdominal pain and bloody bowel movements with PMH of HTN, hypothyroidism, ILD, irritable bowel, anemia, hemorrhoidectomy (2011), reconstructive repair of rectocele (1995), 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 syndrome, partial colectomy secondary to diverticulitis/bowel perforation, AFib on ASA. Patient presents here from home for further evaluation of abdominal cramping, bloody stool, nausea, and vomiting. Patient reports abdominal cramping, diarrhea, and later developed hematochezia that started yesterday afternoon. Patient describes the abdominal pain as cramping and compared it to labor pains, lower and midline, nonradiating, intermittent lasting 1-2 mins and coming in 20 min intervals, no aggravating factors, and alleviated by intermittently by heat. Has had 6 BMs since onset with LBM at 6 am today. Stool has been loose and alternating between normal brown and dark brown. Also developed nausea and vomiting with 1 episode of emesis, nonbloody last night. States pain today feels similar to a previous bowel perforation secondary to diverticulitis that occurred several years ago. Also has history of partial colectomy (after perforation), partial hysterectomy, hemorrhoidectomy, reconstructive repair of rectocele, and polypectomy. Patient follows with Hematology[facility]Oncology at [facility] for 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 syndrome and receives blood transfusion every 6 weeks, injections every 3 weeks, and last transfusion on 07/13/23. Last colonoscopy last year or year before, nothing significant per patient. Initial VS at presentation: 97.9? F, HR 99, RR 13, 121/84, and 99% on RA. ED workup showed: WBC 9.8, hemoglobin 8.7 (previously 8.4 on 08/02/2023), INR 1.2, creatinine 0.7 and GFR >60, glucose 164, lactic 2.5, total bilirubin 1.5, and UA consistent with UTI. CT of the abdomen/pelvis showed left colitis (see inflammatory v infectious v less likely ischemic), s/p partial left colon resection, lower ventral abdominal wall hernia that is not obstructed, diverticulosis of left and right colon, stable left adrenal probable adenoma, hepatic cysts, and cardiomegaly. Review of Systems Review of Systems: All systems reviewed & are unremarkable except as noted in HPI and below PMFSH Past Medical History Medical History Acid reflux Acute respiratory failure with hypoxia Adrenal adenoma benign COVID-19 virus infection DVT prophylaxis Elevated LFTs Hepatic steatosis and liver cyst Hiatal hernia Hypertension Hypothyroidism ILD (interstitial lung disease) Irritable bowel Macrocytic anemia Migraines Obesity Osteoporosis Pneumonia due to COVID-19 virus Rhinitis Vulvar inflammation Surgical History Surgical History History of ankle surgery (~2000) ORIF right ankle History of bilateral cataract extraction History of carpal tunnel surgery of right wrist (~2015) History of colonoscopy with polypectomy most recent December 2018 with edematous polyps History of hemorrhoidectomy (~2011) History of medial meniscus repair of right knee (~2014) History of reconstructive repair of rectocele (~1995) History of vaginal hysterectomy (~1995) without oophorectomy S/P laparoscopic-assisted sigmoidectomy (~08/2018) due to chronic diverticulitis Family History Family History Sibling Hypertension Hyperlipidemia Thyroid disease it sounds as if the patient sister likely had Graves disease with a thyroidectomy and then became ill because her thyroid hormone was not replaced. Acute myocardial infarction Brother early-onset Artificial cardiac pacemaker brother Mother Hypertension Thyroid disease It sounds as if her mother likely had Graves
[2023-08-12 17:18] LABS: Magnesium 1.8 mg/dL (1.6-2.3)
[2023-08-12 17:35] LABS: Procalcitonin 0.2 ng/mL
--- NOTE | 2023-08-12 17:39 | PC.NURSE ---
This patient, Venessa Villar, was admitted to Medical Room 257-01. Patient/family oriented to hospital policies and general routines including ID bracelet, bed and alarms, visiting hours, pain management, procedures, bathroom and other care routines, personal items, smoking policy, room service/diet, and visiting hours. Information on how to activate the Rapid Response Team has been discussed. Patient/Family are encouraged to report perceived risks to care and to ask questions if they do not understand what they are told or what they should do.
[2023-08-12 17:47] LABS: Lactic Acid 1.7 mmol/L (0.7-2.0)
[2023-08-12] MEDS: SODIUM CHLORIDE 0.9% IV 1,000 ML 100 ML IV CONT (18:36)
[2023-08-12] MEDS: metroNIDAZOLE 500 MG/ISO 100ML 500 MG/100 ML BAG 100 MG IVPB (18:36)
[2023-08-13] MEDS: metroNIDAZOLE 500 MG/ISO 100ML 500 MG/100 ML BAG 100 MG IVPB ×3 (01:09→18:06)
[2023-08-13 03:45] VITALS: BP 142/52; PULSE 88; RESP 16; TEMP 37.1; O2SAT 95
[2023-08-13 05:05] LABS: Basophils Absolute Auto 0.1 K/mm3 (0.0-0.1); Basophils Percent Auto 0.8 % (0.2-1.2); Eosinophils Absolute Auto 0.1 K/mm3 (0-0.3); Eosinophils Percent Auto 1.3 % (0-4.4); Hematocrit 22.2 % (37.0-47.0); Immature Granulocyte Absolute 0.04 K/mm3 (0.00-0.031); Immature Granulocyte Percent A 0.6 % (0-0.5); Lymphocytes Absolute Auto 1.22 K/mm3 (0.9-3.2); Lymphocytes Percent Auto 19.4 % (18.3-44.2); Mean Corpuscular HGB Conc 31.5 g/dl (32-36); Mean Corpuscular Hemoglobin 38.3 pg (26-34); Mean Corpuscular Volume 121.3 fl (80-100); Mean Platelet Volume 11.8 fl (7.4-10.4); Monocytes Absolute Auto 0.7 K/mm3 (0.1-0.6); Monocytes Percent Auto 10.7 % (2.6-8.5); Neutrophils Absolute Auto 4.2 K/mm3 (1.3-6.7); Neutrophils Percent Auto 67.2 % (45.5-73.1); Platelet Count Result 259 k/mm3 (150-375); Red Blood Count 1.83 M/mm3 (4.2-5.4); White Blood Count 6.3 K/mm3 (4.5-10.0)
[2023-08-13] MEDS: SODIUM CHLORIDE 0.9% IV 1,000 ML 100 ML IV CONT (05:12)
[2023-08-13] MEDS: LEVOTHYROXINE SODIUM 50 MCG TABLET PO (05:12)
[2023-08-13 05:16] LABS: Alanine Aminotransferase 12 U/L (6-35); Albumin Level 3.4 g/dL (3.5-5.1); Alkaline Phosphatase 45 U/L (38-126); Anion Gap 3 mmol/L (4-12); Aspartate Amino Transferase 14 U/L (14-36); Bilirubin,Total 1.1 mg/dL (0.2-1.3); Blood Urea Nitrogen 11 mg/dL (7-17); Calcium 8.3 mg/dL (8.4-10.2); Carbon Dioxide 28 mmol/L (22-30); Chloride 105 mmol/L (98-107); Estimated CRCL calculation 54 ml/min; Estimated Glomerular Filt Rate > 60; Glucose 103 mg/dL (65-110); Magnesium 1.8 mg/dL (1.6-2.3); Phosphorus 4.4 mg/dL (2.5-4.5); Potassium 3.8 mmol/L (3.4-5.0); Sodium 136 mmol/L (137-145)
[2023-08-13 05:24] LABS: Lactic Acid Reflex 1.7 mmol/L (0.7-2.0)
[2023-08-13 05:31] LABS: Anisocytosis 1+; Platelet Estimate Adequate (Adequate); Schistocytes Rare
[2023-08-13 05:38] LABS: Procalcitonin 0.2 ng/mL
[2023-08-13 09:12] VITALS: BP 125/91; PULSE 86
[2023-08-13] MEDS: clonazePAM (*CRX) 0.5 MG TABLET PO ×2 (09:12→20:39)
[2023-08-13 09:13] VITALS: PULSE 86
[2023-08-13] MEDS: SPIRONOLACTONE 25 MG TABLET PO (09:13)
[2023-08-13] MEDS: METOPROLOL SUCCINATE EXT REL 12.5 MG TABCR PO (09:13)
[2023-08-13] MEDS: PANTOPRAZOLE SODIUM IV 40 MG VIAL IV PUSH (09:14)
--- NOTE | 2023-08-13 10:04 | PM.IMPN ---
Progress Note: A&P Assessment and Plan (1) Sepsis: Qualifiers: Acute respiratory failure type: with hypoxia Sepsis acute organ dysfunction status: with acute organ dysfunction Sepsis type: sepsis due to unspecified organism Severe sepsis acute organ dysfunction type: acute respiratory failure Severe sepsis shock status: without septic shock Qualified Code(s): A41.9 - Sepsis, unspecified organism; R65.20 - Severe sepsis without septic shock; J96.01 - Acute respiratory failure with hypoxia Code(s): A41.9 - Sepsis, unspecified organism Status: Acute Assessment and Plan: Hematochezia per history. She meets SIRS criteria with elevated HR, RR and lactic acid: 2.5 -> 1.7. PCT 0.2 Suspected source: Colitis, UTI She was fluid resuscitated and started on metronidazole and levofloxacin on 08/11 BCx NGTD UA concerning fofr UTI but no UCx drawn. CT abdomen/pelvis showing left sided colitis WBC remaining normal. Continue abx Advance diet. Decrease IV fluids (2) Colitis: Code(s): K52.9 - Noninfective gastroenteritis and colitis, unspecified Status: Acute Assessment and Plan: CT abdomen/pelvis showing left sided colitis C diff and stool cultures ordered Continue abx. (3) Myelodysplastic syndrome: Code(s): D46.9 - Myelodysplastic syndrome, unspecified Status: Acute Assessment and Plan: Hgb 8.7. She receives PRBC transfusions every 6 weeks. Repeat hemoglobin is 7. Will check serial hemoglobin levels. Platelet count and white count are normal. Follow (4) Urinary tract infection: Code(s): N39.0 - Urinary tract infection, site not specified Status: Acute Assessment and Plan: UA noted. UCx not collected Not felt to have UTI. Plan DVT Prophylaxis: SCDs Code Status: Full code Subjective Date/time seen: 08/13/23 10:04 Interval history: 83yo female with HTN, ILD, IBS and chronic diverticulitis s/p laparoscopic sigmoidectomy here for abdominal pain. Patient still with the abdominal pain described as sharp and cramping. She has noted that it is persistent but occurring less frequently. Last bowel movement was yesterday. No melena but did note bright red blood per rectum. No nausea or vomiting. She is tolerating her clear liquid diet. Last colonoscopy was 1 year ago which was normal. Exam Narrative: AF 98.8 125/91 86 16 95% ra Gen - NARD Chest - CTA bilaterally, nml RR CV - RRR S1/S2 Abd - Soft, ND, minimal tenderness and no guarding, +BS Ext - No pedal edema Psych - Nml mood and affect Skin - Warm and dry Objective Data Vital Signs Vital Signs: Vital Signs - 24 hr 08/12/23 12:25 08/12/23 12:28 08/12/23 14:19 Temperature 97.9 F Pulse Rate 99 99 84 Respiratory Rate 13 14 23 H Blood Pressure 121/84 121/84 140/44 L Pulse Oximetry 99 96 95 Oxygen Delivery Room Air 08/12/23 15:04 08/12/23 16:52 08/12/23 17:40 Temperature 99.1 F 98.2 F Pulse Rate 85 94 93 Respiratory Rate 18 20 16 Blood Pressure 138/42 L 117/70 140/50 L Pulse Oximetry 94 97 97 Oxygen Delivery 08/12/23 18:27 08/12/23 19:24 08/13/23 03:45 Temperature 98.4 F 98.8 F Pulse Rate 90 88 Respiratory Rate 20 16 Blood Pressure 121/43 L 142/52 H Pulse Oximetry 97 95 Oxygen Delivery Room Air 08/13/23 09:12 08/13/23 09:13 Temperature Pulse Rate 86 86 Respiratory Rate Blood Pressure 125/91 H Pulse Oximetry Oxygen Delivery Intake/Output Intake/Output: Intake & Output 08/10/23 08/11/23 08/12/23 08/13/23 23:59 23:59 23:59 23:59 Intake Total 1000 1150 Balance 1000 1150 Meds/Results Medications: Active Medications Generic Name Dose Route Start Last Admin Trade Name Freq PRN Reason Stop Dose Admin Acetaminophen 650 mg 08/12/23 15:57 Acetaminophen 325 Mg Tablet PO Q4H PRN Mild Pain (1-3) or Fever Clonazepam 0.5 mg 08/13/23 09:00 08/13/23 09:12 Clonazepam (*Crx)
[2023-08-13 11:33] LABS: Hematocrit 22.5 % (37.0-47.0); Hemoglobin 7.1 g/dL (12.0-15.0)
--- NOTE | 2023-08-13 13:31 | WPDGICN ---
Assessment and Plan Assessment and plan (1) Colitis: Code(s): K52.9 - Noninfective gastroenteritis and colitis, unspecified Status: Acute Assessment and Plan: probably infectious, less likely ischemic normalization of lactic acid and already feeling better on iv abx, pending stool sample (2) Myelodysplastic syndrome: Code(s): D46.9 - Myelodysplastic syndrome, unspecified Status: Acute Assessment and Plan: she has chronic anemia and she is seeing hem-onc baseline hgb 7-8 she had egd/colonoscopy 2022 because anemia (she already knew about MDS diagnosis) (3) Acidosis, lactic: Code(s): E87.20 - Acidosis, unspecified Status: Acute Assessment and Plan: resolved (4) Chronic anemia: Code(s): D64.9 - Anemia, unspecified Status: Inactive Assessment and Plan: MDS (5) Sepsis: Qualifiers: Sepsis type: sepsis due to unspecified organism Sepsis acute organ dysfunction status: with acute organ dysfunction Severe sepsis acute organ dysfunction type: acute respiratory failure Acute respiratory failure type: with hypoxia Severe sepsis shock status: without septic shock Qualified Code(s): A41.9 - Sepsis, unspecified organism; R65.20 - Severe sepsis without septic shock; J96.01 - Acute respiratory failure with hypoxia Code(s): A41.9 - Sepsis, unspecified organism Status: Acute Assessment and Plan: on iv abx, better (6) Rectal bleeding: Code(s): K62.5 - Hemorrhage of anus and rectum Status: Acute Assessment and Plan: from colitis, no more bleeding GI Consult Note Consult date/time: 08/13/23 13:31 Reason for consult: colitis, diarrhea HPI: Venessa Villar is a 83 year old female with past medical history of HTN, chronic anemia (EGD and colonoscopy 10/2022 with small colon polyp removed, diverticulosis, no other findings- diagnosed with MDS with baseline hgb 7-8), hemorrhoidectomy (2011), reconstructive repair of rectocele (1995), partial colectomy secondary to diverticulitis/bowel perforation years ago, AFib on ASA. She came here with new onset of severe cramping abdominal pain similar to pain along with loose stool followed by one episode of brbpr, also had nausea, and vomiting. She had at least [address] scan revealed left colitis, previous left colon surgery and diverticulosis, hgb 8 (near baseline), wbc 6, elevated lactic acid but normalized. Started on iv abx, still pain but better. Review of Systems Constitutional: Constitutional: Denies fatigue Eyes: Eyes: Denies blurry vision ENT: Reports Normal hearing present Cardiovascular: Cardiovascular: Denies chest pain Respiratory: Respiratory: Denies cough Gastrointestinal: Gastrointestinal: Reports abdominal pain, Reports diarrhea and Reports nausea Genitourinary: Genitourinary: Denies dysuria Musculoskeletal: Musculoskeletal: Denies neck pain Integumentary/Breasts: Skin/Breast: Denies rash Neurologic: Denies Abnormal speech present Psychiatric: Psychiatric: Denies behavioral changes ON LICENSE OF [facility] Past Medical History Medical History (Updated 08/13/23 @ 13:39 by Rikki Warner MD) Acid reflux Acute respiratory failure with hypoxia Adrenal adenoma benign COVID-19 virus infection DVT prophylaxis Elevated LFTs Hepatic steatosis and liver cyst Hiatal hernia Hypertension Hypothyroidism ILD (interstitial lung disease) Irritable bowel Macrocytic anemia Migraines Obesity Osteoporosis Pneumonia due to COVID-19 virus Rectal bleeding Rhinitis Vulvar inflammation Surgical History Surgical History History of ankle surgery (~2000) ORIF right ankle History of bilateral cataract extraction History of carpal tunnel surgery of right wrist (~2015) History of colonoscopy with polypectomy most recent December 2018 with edematous polyps History of hemorrhoid
[2023-08-13 14:00] VITALS: BP 126/37; PULSE 80; RESP 22; TEMP 36.6; O2SAT 96
[2023-08-13 18:39] LABS: Hematocrit 24.5 % (37.0-47.0); Hemoglobin 7.8 g/dL (12.0-15.0)
[2023-08-13 20:00] VITALS: PULSE 80; RESP 17; O2SAT 100
[2023-08-13 21:06] VITALS: BP 140/51; PULSE 80; RESP 17; TEMP 36.5; O2SAT 100
[2023-08-14] VITALS (9 sets, daily range): BP systolic 98–158; BP diastolic 43–60; PULSE 79–85; RESP 16–18; TEMP 36.3–36.8; O2SAT 93–100
[2023-08-14 06:10] LABS: Albumin Level 3.5 g/dL (3.5-5.1); Anion Gap 6 mmol/L (4-12); Blood Urea Nitrogen 7 mg/dL (7-17); CRP 2.2 mg/dL (<1.0); Calcium 8.9 mg/dL (8.4-10.2); Carbon Dioxide 25 mmol/L (22-30); Chloride 106 mmol/L (98-107); Estimated CRCL calculation 54 ml/min; Estimated Glomerular Filt Rate > 60; Glucose 98 mg/dL (65-110); Magnesium 1.9 mg/dL (1.6-2.3); Phosphorus 4.6 mg/dL (2.5-4.5); Sodium 137 mmol/L (137-145)
[2023-08-14] MEDS: LEVOTHYROXINE SODIUM 50 MCG TABLET PO (06:55)
[2023-08-14 07:15] LABS: Basophils Percent Auto 0.6 % (0.2-1.2); Eosinophils Absolute Auto 0.1 K/mm3 (0-0.3); Eosinophils Percent Auto 2.4 % (0-4.4); Hematocrit 21.2 % (37.0-47.0); Immature Granulocyte Absolute 0.02 K/mm3 (0.00-0.031); Immature Granulocyte Percent A 0.6 % (0-0.5); Lymphocytes Absolute Auto 1.06 K/mm3 (0.9-3.2); Lymphocytes Percent Auto 31.7 % (18.3-44.2); Mean Corpuscular HGB Conc 31.6 g/dl (32-36); Mean Corpuscular Hemoglobin 37.4 pg (26-34); Mean Corpuscular Volume 118.4 fl (80-100); Monocytes Absolute Auto 0.3 K/mm3 (0.1-0.6); Monocytes Percent Auto 9.6 % (2.6-8.5); Neutrophils Absolute Auto 1.8 K/mm3 (1.3-6.7); Neutrophils Percent Auto 55.1 % (45.5-73.1); Nucleated Red Blood Cells Perc 0.9 % (0.0-0.2); Platelet Count Result 222 k/mm3 (150-375); Red Blood Count 1.79 M/mm3 (4.2-5.4); White Blood Count 3.3 K/mm3 (4.5-10.0)
[2023-08-14 07:55] LABS: Hemoglobin 6.7 g/dL (12.0-15.0)
[2023-08-14 07:57] LABS: Hypochromasia 2+; Ovalocytes 2+; Platelet Estimate Adequate (Adequate); Polychromasia 1+
[2023-08-14 07:58] LABS: Schistocytes None Seen
[2023-08-14] MEDS: metroNIDAZOLE 500 MG/ISO 100ML 500 MG/100 ML BAG 100 MG IVPB (08:37)
[2023-08-14] MEDS: clonazePAM (*CRX) 0.5 MG TABLET PO ×2 (08:42→21:21)
[2023-08-14] MEDS: SPIRONOLACTONE 25 MG TABLET PO (08:42)
[2023-08-14] MEDS: METOPROLOL SUCCINATE EXT REL 12.5 MG TABCR PO (08:42)
[2023-08-14] MEDS: PANTOPRAZOLE SODIUM IV 40 MG VIAL IV PUSH (08:42)
[2023-08-14] MEDS: SODIUM CHLORIDE 0.9% IV 250 ML 30 ML IV CONT (10:40)
--- NOTE | 2023-08-14 12:58 | WPDGIPROGNO ---
Progress Note: A&P Assessment and Plan (1) Colitis: Code(s): K52.9 - Noninfective gastroenteritis and colitis, unspecified Status: Acute Assessment and Plan: clinically better but had pain again after eating she was ready to go home earlier this morning but now prefers to stay another day (2) Acute on chronic anemia: Code(s): D64.9 - Anemia, unspecified Status: Acute Assessment and Plan: most likely from MDS getting blood transfusion now (3) Myelodysplastic syndrome: Code(s): D46.9 - Myelodysplastic syndrome, unspecified Status: Acute (4) Rectal bleeding: Code(s): K62.5 - Hemorrhage of anus and rectum Status: Acute Assessment and Plan: resolved no need of colonoscopy, she had one last year Subjective Date/time seen: 08/14/23 12:58 Interval history: she was feeling much better but after had breakfast again with cramping, earlier had soft BM no more diarrhea or blood in stools. Review of Systems Review of Systems: All systems reviewed & are unremarkable except as noted in HPI and below Exam Const: General: comfortable and no acute distress HENMT: Face/Nose/Sinus: Normal nares present Eyes: General: appearance normal, both eyes and all related structures Neck: Neck: supple Resp: Auscultation: clear to auscultation bilaterally Cardio: Rate: regular rate Rhythm: regular rhythm GI: Inspection: non-distended GI Palp: Yes Soft to palpation, Yes Tenderness to palpation present (GI) (minimal ttp, no rebound) and No Guarding due to palpation present (GI) Auscultation: normal bowel sounds Skin: General skin exam: normal color Neuro: Speech: normal speech Motor exam (neuro): 5/5 motor strength present throughout Extrem: General: normal to inspection Psych: Mental Status: mental status grossly normal Objective Data Vital Signs Vital Signs: Vital Signs - 24 hr 08/13/23 14:00 08/13/23 21:06 08/13/23 20:00 Temperature 97.8 F 97.7 F Pulse Rate 80 80 80 Respiratory Rate 22 H 17 17 Blood Pressure 126/37 L 140/51 L Pulse Oximetry 96 100 100 Oxygen Delivery Room Air 08/14/23 05:35 08/14/23 08:42 08/14/23 10:44 Temperature 97.6 F 97.7 F Pulse Rate 80 80 79 Respiratory Rate 16 16 Blood Pressure 158/55 H 137/43 L Pulse Oximetry 98 98 Oxygen Delivery 08/14/23 11:00 08/14/23 08:42 08/14/23 12:00 Temperature 98 F 97.8 F Pulse Rate 79 80 Respiratory Rate 18 18 18 Blood Pressure 136/54 L 132/56 L Pulse Oximetry 98 98 97 Oxygen Delivery Room Air Intake/Output Intake/Output: Intake & Output 08/11/23 08/12/23 08/13/23 08/14/23 23:59 23:59 23:59 23:59 Intake Total 1100 2696.7 460 Balance 1100 2696.7 460 Meds/Results Medications: Active Medications Generic Name Dose Route Start Last Admin Trade Name Freq PRN Reason Stop Dose Admin Acetaminophen 650 mg 08/12/23 15:57 Acetaminophen 325 Mg Tablet PO Q4H PRN Mild Pain (1-3) or Fever Clonazepam 0.5 mg 08/13/23 09:00 08/14/23 08:42 Clonazepam (*Crx) 0.5 Mg Tablet PO 0.5 mg Q12HR LILLIAM Administration Levofloxacin/Dextrose 750 mg in 150 mls @ 100 mls/hr 08/14/23 16:00 Levaquin 750 Mg/D5w 150 Ml IVPB Q48H LILLIAM Metronidazole 500 mg in 100 mls @ 100 mls/hr 08/13/23 02:00 08/14/23 09:37 Flagyl 500 Mg/Iso Soln 100 Ml IVPB Infused Q8H LILLIAM Infusion Sodium Chloride 250 mls @ 30 mls/hr 08/14/23 08:26 08/14/23 10:40 Normal Saline Iv IV CONT 08/14/23 16:45 30 mls/hr .Q8H20M STA Administration Levothyroxine Sodium 50 mcg 08/13/23 06:30 08/14/23 06:55 Levothyroxine Sodium 50 Mcg Tablet PO 50 mcg DAILY@0630 LILLIAM Administration Metoprolol Succinate 12.5 mg 08/13/23 09:00 08/14/23 08:42 Metoprolol Succinate Ext Rel 12.5 Mg Tabcr PO 12.5 mg DAILY LILLIAM Administration Pantoprazole Sodium 40 mg 08/13/23 09:00 08/14/23 08:42 Pantoprazole Sodium Iv 40 Mg Vial IV PUSH 40 mg QAM
--- NOTE | 2023-08-14 14:58 | PM.IMPN ---
Progress Note: A&P Assessment and Plan (1) Sepsis: Qualifiers: Sepsis type: sepsis due to unspecified organism Sepsis acute organ dysfunction status: with acute organ dysfunction Severe sepsis acute organ dysfunction type: acute respiratory failure Acute respiratory failure type: with hypoxia Severe sepsis shock status: without septic shock Qualified Code(s): A41.9 - Sepsis, unspecified organism; R65.20 - Severe sepsis without septic shock; J96.01 - Acute respiratory failure with hypoxia Code(s): A41.9 - Sepsis, unspecified organism Status: Acute Assessment and Plan: Hematochezia per history. She meets SIRS criteria with elevated HR, RR and lactic acid: 2.5 -> 1.7. PCT 0.2 Suspected source: Colitis She was fluid resuscitated and started on metronidazole and levofloxacin on 08/11 BCx NGTD UA concerning for UTI but no UCx drawn. CT abdomen/pelvis showing left sided colitis WBC remaining normal but may be related to MDS. CRP 2.2 Continue abx. Advance diet. IV fluids stopped (2) Colitis: Code(s): K52.9 - Noninfective gastroenteritis and colitis, unspecified Status: Acute Assessment and Plan: CT abdomen/pelvis showing left sided colitis C diff and stool cultures ordered Appreciate GI input Continue abx. (3) Myelodysplastic syndrome: Code(s): D46.9 - Myelodysplastic syndrome, unspecified Status: Acute Assessment and Plan: Hgb 8.7. She receives PRBC transfusions every 6 weeks with last one on 07/12. Repeat hemoglobin is 6.7. Platelet count and white count are normal. Transfuse 1U PRBC. Follow (4) Urinary tract infection: Code(s): N39.0 - Urinary tract infection, site not specified Status: Acute Assessment and Plan: UA noted. UCx not collected Not felt to have UTI. Plan Weakness- could be related to anemia. Add PT/OT. Increase activity DVT Prophylaxis: SCDs Code Status: Full code Subjective Date/time seen: 08/14/23 14:58 Interval history: 83yo female with HTN, ILD, IBS and chronic diverticulitis s/p laparoscopic sigmoidectomy here for abdominal pain. No abd pain this morning at the time of the visit. Slept well. No Abd pain overnight. Has been eating okay. She missed a dose of IV Flagyl overnight because she lost her IV and the patient refused to have staff replace IV and only wanted it done under US which was done this morning After the visit, patient had abd pain with eating breakfast and feels weak. Exam Narrative: AF 97.4 120/57 79 18 100% ra Gen - NARD Chest - CTA bilaterally, nml RR CV - RRR S1/S2 Abd - Soft, ND/ND, +BS Ext - No pedal edema Psych - Nml mood and affect Skin - Warm and dry Objective Data Vital Signs Vital Signs: Vital Signs - 24 hr 08/13/23 21:06 08/13/23 20:00 08/14/23 05:35 Temperature 97.7 F 97.6 F Pulse Rate 80 80 80 Respiratory Rate 17 17 16 Blood Pressure 140/51 L 158/55 H Pulse Oximetry 100 100 98 Oxygen Delivery Room Air 08/14/23 08:42 08/14/23 10:44 08/14/23 11:00 Temperature 97.7 F 98 F Pulse Rate 80 79 79 Respiratory Rate 16 18 Blood Pressure 137/43 L 136/54 L Pulse Oximetry 98 98 Oxygen Delivery 08/14/23 08:42 08/14/23 12:00 08/14/23 13:00 Temperature 97.8 F 97.4 F L Pulse Rate 80 79 Respiratory Rate 18 18 18 Blood Pressure 132/56 L 120/57 L Pulse Oximetry 98 97 100 Oxygen Delivery Room Air 08/14/23 13:07 Temperature 97.4 F L Pulse Rate 79 Respiratory Rate 18 Blood Pressure 120/57 L Pulse Oximetry 100 Oxygen Delivery Intake/Output Intake/Output: Intake & Output 08/11/23 08/12/23 08/13/23 08/14/23 23:59 23:59 23:59 23:59 Intake Total 1100 2696.7 810 Balance 1100 2696.7 810 Meds/Results Medications: Active Medications Generic Name Dose Route Start Last Admin Trade Name Freq PRN Reason Stop Dose Admin Acetaminophen 650 mg 08/12/23 15:57 Acetaminophen 325 Mg Tablet PO Q4H [place]
[2023-08-14] MEDS: levoFLOXacin 750 MG/D5W 150 ML 750 MG/150 ML BAG 100 MG IVPB (15:41)
[2023-08-14] MEDS: metroNIDAZOLE 500 MG TABLET PO ×2 (15:49→21:20)
[2023-08-15 04:39] VITALS: BP 98/61; PULSE 75; RESP 17; TEMP 36.4; O2SAT 94
[2023-08-15] MEDS: metroNIDAZOLE 500 MG TABLET PO ×2 (05:13→13:05)
[2023-08-15] MEDS: LEVOTHYROXINE SODIUM 50 MCG TABLET PO (05:13)
[2023-08-15 05:31] LABS: Hematocrit 26.3 % (37.0-47.0); Hemoglobin 8.3 g/dL (12.0-15.0); Mean Corpuscular HGB Conc 31.6 g/dl (32-36); Mean Corpuscular Hemoglobin 35.6 pg (26-34); Mean Corpuscular Volume 112.9 fl (80-100); Mean Platelet Volume 12.1 fl (7.4-10.4); Platelet Count Result 247 k/mm3 (150-375); Red Blood Count 2.33 M/mm3 (4.2-5.4); White Blood Count 3.5 K/mm3 (4.5-10.0)
[2023-08-15 05:39] LABS: Anion Gap 6 mmol/L (4-12); Blood Urea Nitrogen 7 mg/dL (7-17); Calcium 8.5 mg/dL (8.4-10.2); Carbon Dioxide 28 mmol/L (22-30); Chloride 103 mmol/L (98-107); Estimated CRCL calculation 54 ml/min; Estimated Glomerular Filt Rate > 60; Glucose 98 mg/dL (65-110); Potassium 3.8 mmol/L (3.4-5.0); Sodium 137 mmol/L (137-145)
[2023-08-15 08:12] VITALS: PULSE 72
[2023-08-15] MEDS: METOPROLOL SUCCINATE EXT REL 12.5 MG TABCR PO (08:12)
[2023-08-15] MEDS: PANTOPRAZOLE SODIUM IV 40 MG VIAL IV PUSH (08:12)
[2023-08-15] MEDS: SPIRONOLACTONE 25 MG TABLET PO (08:12)
[2023-08-15 08:13] VITALS: RESP 17; O2SAT 94
[2023-08-15] MEDS: clonazePAM (*CRX) 0.5 MG TABLET PO (08:13)
[2023-08-15 14:00] VITALS: BP 136/49; PULSE 76; RESP 20; TEMP 36.9; O2SAT 96
--- NOTE | 2023-08-15 14:32 | PM.DS ---
DS: Admitting Diagnosis Discharge Date 08/15/2023 Admitting Diagnosis Abdominal Cramping, Hematochezia v Melena DS: Discharge Diagnosis Discharge Diagnosis (1) Sepsis: Qualifiers: Acute respiratory failure type: with hypoxia Sepsis acute organ dysfunction status: with acute organ dysfunction Sepsis type: sepsis due to unspecified organism Severe sepsis acute organ dysfunction type: acute respiratory failure Severe sepsis shock status: without septic shock Qualified Code(s): A41.9 - Sepsis, unspecified organism; R65.20 - Severe sepsis without septic shock; J96.01 - Acute respiratory failure with hypoxia Code(s): A41.9 - Sepsis, unspecified organism Status: Acute Assessment and Plan: Hematochezia per history. She meets SIRS criteria with elevated HR, RR and lactic acid: 2.5 -> 1.7. PCT 0.2 Suspected source: Colitis She was fluid resuscitated and started on metronidazole and levofloxacin on 08/11 BCx NGTD UA concerning for UTI but no UCx drawn. CT abdomen/pelvis showing left sided colitis WBC remaining normal but may be related to MDS. CRP 2.2 Continue abx. Advance diet. pt felt alot better tolerating a diet ok to dc with oral abx (2) Colitis: Code(s): K52.9 - Noninfective gastroenteritis and colitis, unspecified Status: Acute Assessment and Plan: CT abdomen/pelvis showing left sided colitis C diff and stool cultures ordered Appreciate GI input Continue abx. (3) Myelodysplastic syndrome: Code(s): D46.9 - Myelodysplastic syndrome, unspecified Status: Acute Assessment and Plan: Hgb 8.7. She receives PRBC transfusions every 6 weeks with last one on 07/12. Repeat hemoglobin is 6.7. Platelet count and white count are normal. Transfuse 1U PRBC. cbc stable at 8 Pt will be following with her host DR Ty (4) Urinary tract infection: Code(s): N39.0 - Urinary tract infection, site not specified Status: Acute Assessment and Plan: UA noted. UCx not collected Not felt to have UTI. Plan Weakness- could be related to anemia. pt was walking in her room ready to go DS: Summary Hospital Course Hospital Course: 3 y/o F presents here with abdominal pain and bloody bowel movements with PMH of HTN, hypothyroidism, ILD, irritable bowel, anemia, hemorrhoidectomy (2011), reconstructive repair of rectocele (1995), 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 syndrome, partial colectomy secondary to diverticulitis/bowel perforation, AFib on ASA. Patient presents here from home for further evaluation of abdominal cramping, bloody stool, nausea, and vomiting.? Patient reports abdominal cramping, diarrhea, and later developed hematochezia that started yesterday afternoon.? Patient describes the abdominal pain as cramping and compared it to labor pains, lower and midline, nonradiating, intermittent lasting 1-2 mins and coming in 20 min intervals, no aggravating factors, and alleviated by intermittently by heat.? Has had 6 BMs since onset with LBM at 6 am today.? Stool has been loose and alternating between normal brown and dark brown.? Also developed nausea and vomiting with 1 episode of emesis, nonbloody last night.? States pain today feels similar to a previous bowel perforation secondary to diverticulitis that occurred several years ago.? Also has history of partial colectomy (after perforation), partial hysterectomy, hemorrhoidectomy, reconstructive repair of rectocele, and polypectomy.? Patient follows with H[facility]ology[facility]cology at [facility] for 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 syndrome and receives blood transfusion every 6 weeks, injections every 3 weeks, and last transfusion on 07/13/23. Pt treated for colitis with iv abx ready to go on oral ABX Time Spent with Patient Time attestation: Total time spent providing and/or coordinating discharge services:45 minutes on day of DC Exam Narrative: Gen - NARD Chest - CTA bilaterally, nml RR CV - RRR S1/S2 Abd - Soft, ND/ND, +BS
--- NOTE | 2023-08-15 14:55 | WPDGIPROGNO ---
Progress Note: A&P Assessment and Plan (1) Colitis: Code(s): K52.9 - Noninfective gastroenteritis and colitis, unspecified Status: Acute Assessment and Plan: no more pain and now she is eating without discomfort ok to go home today (2) Acute on chronic anemia: Code(s): D64.9 - Anemia, unspecified Status: Acute Assessment and Plan: most likely from MDS follow-up with hematology (3) Myelodysplastic syndrome: Code(s): D46.9 - Myelodysplastic syndrome, unspecified Status: Acute (4) Rectal bleeding: Code(s): K62.5 - Hemorrhage of anus and rectum Status: Acute Assessment and Plan: resolved no need of colonoscopy, she had one last year Subjective Date/time seen: 08/15/23 14:55 Interval history: abdominal pain resolved and she has been eating doing great and ready to go home later today Review of Systems Review of Systems: All systems reviewed & are unremarkable except as noted in HPI and below Exam Const: General: comfortable and no acute distress HENMT: Face/Nose/Sinus: Normal nares present Eyes: General: appearance normal, both eyes and all related structures Neck: Neck: supple Resp: Auscultation: clear to auscultation bilaterally Cardio: Rate: regular rate Rhythm: regular rhythm GI: Inspection: non-distended GI Palp: Yes Soft to palpation, No Tenderness to palpation present (GI) and No Guarding due to palpation present (GI) Auscultation: normal bowel sounds Skin: General skin exam: normal color Neuro: Speech: normal speech Motor exam (neuro): 5/5 motor strength present throughout Extrem: General: normal to inspection Psych: Mental Status: mental status grossly normal Objective Data Vital Signs Vital Signs: Vital Signs - 24 hr 08/14/23 20:14 08/15/23 04:39 08/15/23 08:12 Temperature 98.3 F 97.6 F Pulse Rate 82 75 72 Respiratory Rate 17 17 Blood Pressure 98/60 L 98/61 L Pulse Oximetry 97 94 Oxygen Delivery 08/15/23 08:13 08/15/23 10:29 08/15/23 14:00 Temperature 98.4 F Pulse Rate 76 Respiratory Rate 17 20 Blood Pressure 136/49 L Pulse Oximetry 94 96 Oxygen Delivery Room Air Room Air Intake/Output Intake/Output: Intake & Output 08/12/23 08/13/23 08/14/23 08/15/23 23:59 23:59 23:59 23:59 Intake Total 1100 2696.7 2490 1070 Balance 1100 2696.7 2490 1070 Meds/Results Medications: Active Medications Generic Name Dose Route Start Last Admin Trade Name Freq PRN Reason Stop Dose Admin Acetaminophen 650 mg 08/12/23 15:57 Acetaminophen 325 Mg Tablet PO Q4H PRN Mild Pain (1-3) or Fever Clonazepam 0.5 mg 08/13/23 09:00 08/15/23 08:13 Clonazepam (*Crx) 0.5 Mg Tablet PO 0.25 mg Q12HR LILLIAM Administration Levofloxacin/Dextrose 750 mg in 150 mls @ 100 mls/hr 08/14/23 16:00 08/14/23 17:03 Levaquin 750 Mg/D5w 150 Ml IVPB Infused Q48H LILLIAM Infusion Levothyroxine Sodium 50 mcg 08/13/23 06:30 08/15/23 05:13 Levothyroxine Sodium 50 Mcg Tablet PO 50 mcg DAILY@0630 LILLIAM Administration Metoprolol Succinate 12.5 mg 08/13/23 09:00 08/15/23 08:12 Metoprolol Succinate Ext Rel 12.5 Mg Tabcr PO 12.5 mg DAILY LILLIAM Administration Metronidazole 500 mg 08/14/23 16:00 08/15/23 13:05 Metronidazole 500 Mg Tablet PO 500 mg Q8HR LILLIAM Administration Pantoprazole Sodium 40 mg 08/13/23 09:00 08/15/23 08:12 Pantoprazole Sodium Iv 40 Mg Vial IV PUSH 40 mg QAM LILLIAM Administration Spironolactone 25 mg 08/13/23 09:00 08/15/23 08:12 Spironolactone 25 Mg Tablet PO 25 mg DAILY LILLIAM Administration Radiology Results: ITS Impressions Abdomen/Pelvis CT 08/12/23 14:01 IMPRESSION: Left colitis, which may be inflammatory or infectious or less likely ischemic Status post partial left colon resection Nonobstructed nonspecific angulated small bowel containing lower ventral abdominal wall hernia Diverticulosis of left and right c
--- NOTE | 2023-08-15 15:07 | PCPTNOTE ---
per OT, pt is independent with all mobility in hospital, spoke with Dr. Carvajal who is agreeable in cancelling PT orders, please update therapy orders if pt's status changes
== END 2023-08-15 15:20 | disposition home or self-care (01) | DRG 392 ==
LOC: ANHED 12:52 → ANH2MED 17:09
PROVIDERS: Student in an Organized Health Care Education/Training Program; Admitting Provider Internal Medicine; Emergency Provider Emergency Medicine; PCP Internal Medicine; Visit Provider Family Medicine
DX: K52.9 Noninfective gastroenteritis and colitis, unspecified (principal); R65.10 Systemic inflammatory response syndrome (SIRS) of non-infectious origin without acute organ dysfunction; K62.5 Hemorrhage of anus and rectum; D46.9 Myelodysplastic syndrome, unspecified; D63.8 Anemia in other chronic diseases classified elsewhere; I10 Essential (primary) hypertension; E03.9 Hypothyroidism, unspecified; I48.91 Unspecified atrial fibrillation; M81.0 Age-related osteoporosis without current pathological fracture; E66.9 Obesity, unspecified; D53.9 Nutritional anemia, unspecified; K44.9 Diaphragmatic hernia without obstruction or gangrene; K76.0 Fatty (change of) liver, not elsewhere classified; Z68.30 Body mass index [BMI] 30.0-30.9, adult; Z86.16 Personal history of COVID-19
CPT/HCPCS: 36415; 36430; 74177; 80048; 80053; 80069; 81001; 83605; 83690; 83735; 84100; 84145; 85014; 85018; 85025; 85027; 85610; 85730; 86140; 86850; 86900; 86901; 86923; 87040; 96361; 96367; 96375; 97165; 99285; A9270; C9113; G0378; J1836; J1956; J7030; J7050; P9016; Q9967

== ENCOUNTER 2023-08-30 14:05 | Outpatient (CLI) | payer MEDICARE, SELFPAY ==
--- NOTE | ~2023-08-30 | DEXA_ITS ---
? Bone Density Report? Name:? MEIR GARCIA Patient ID:??? [id number] Age:? 83 Sex:? Female Ethnicity:? White Date of : 1940 Indication: postmenopausal; screening for osteoporosis; height loss; prior fracture; hysterectomy; Referring Provider: ABBY PALMA Study: Bone densitometry was performed. Exam Date: August 30, 2023 Accession number: [id number] Bone Density: Region? BMD??? T-score ?Z-score?? Classification AP Spine(L1-L4)? 0.892?? -1.4?1.4? Osteopenia Femoral Neck (Left)? 0.610?? -2.2? 0.3? Osteopenia Total Hip (Left)? 0.711?? -1.9? 0.3? Osteopenia Femoral Neck (Right)? 0.602?? -2.2? 0.2? Osteopenia Total Hip (Right)? 0.692?? -2.1? 0.1? Osteopenia Femoral Neck Mean? 0.606?? -2.2? 0.2? Osteopenia Total Hip Mean? 0.701?? -2.0? 0.2? Osteopenia World Health Organization criteria for BMD impression classify patients as: Normal (T-score at or above -1.0), Osteopenia (T-score between -1.0 and -2.5), or Osteoporosis (T-score at or below -2.5). 10-year Fracture Risk: FRAX not reported because: ? Prior hip or vertebral fracture ? Treated for osteoporosis Clinical Information Provided by Patient: Have had a previous hip or vertebral fracture Has had a low trauma fracture Is being treated for osteoporosis Has used the following medications: Fosamax (i.e. alendronate), Prolia (i.e. denosumab), Vitamin D, Calcium Has the following medical conditions: Hysterectomy Patient maximum height was 62 Menopause Age: 56 Onset of menses at age 15 Number of children 2 Impression: The patient has low bone mass, based on the Left Femoral Neck T- score. The patient has risk factors, including: previous fracture. Discussion: It is important to ask patients whether they are taking their medications and to encourage continued and appropriate compliance with their osteoporosis therapies to reduce fracture risk. It is also important to review their risk factors and encourage appropriate calcium and vitamin D intakes, exercise, fall prevention and other lifestyle measures. Follow-Up: Consider a repeat BMD and Vertebral Fracture Assessment (VFA) exam in 2 years or sooner if medically necessary, to reassess this patient's status. Reported by: Dr. Chase Morel on 08/31/2023 7:59:00 AM. FRANCISCO
== END 2023-08-30 14:06 | disposition home or self-care (01) ==
LOC: CHSIMG 14:06
PROVIDERS: PCP Internal Medicine; Visit Provider Internal Medicine Hematology & Oncology
DX: Z78.0 Asymptomatic menopausal state (principal); M85.89 Other specified disorders of bone density and structure, multiple sites
CPT/HCPCS: 77080

== ENCOUNTER 2023-09-14 12:34 | Outpatient (RCR) | payer MEDICARE, SELFPAY ==
[2023-09-14 13:06] VITALS: TEMP 36.9
[2023-09-14] MEDS: diphenhydrAMINE HCl CAP 25 MG CAPSULE PO (13:06)
[2023-09-14] MEDS: ACETAMINOPHEN 325 MG TABLET 650 MG PO (13:06)
[2023-09-14] MEDS: SODIUM CHLORIDE 0.9% IV 250 ML 30 ML IV CONT (13:08)
[2023-09-14 13:18] VITALS: BP 153/44; PULSE 84; RESP 16; TEMP 36.9; O2SAT 98
[2023-09-14 13:33] VITALS: BP 137/49; PULSE 79; RESP 15; TEMP 36.8; O2SAT 100
[2023-09-14 14:33] VITALS: BP 149/52; PULSE 75; RESP 16; TEMP 36.7; O2SAT 100
[2023-09-14 15:22] VITALS: BP 148/52; PULSE 80; RESP 15; TEMP 36.8; O2SAT 100
== END 2023-12-13 23:59 | disposition home or self-care (01) ==
LOC: ANHCPCTRAN 12:34
PROVIDERS: PCP Internal Medicine; Visit Provider Internal Medicine Hematology & Oncology
DX: D64.9 Anemia, unspecified (principal)
CPT/HCPCS: 36415; 36430; 86850; 86900; 86901; 86923; A9270; J7050; P9016

== ENCOUNTER 2023-09-26 16:45 | Emergency (ER) | payer MEDICARE, SELFPAY ==
[2023-09-26 16:55] VITALS: BP 151/49; PULSE 97; RESP 20; TEMP 36.6; O2SAT 100
--- NOTE | 2023-09-26 16:55 | ED.EAR ---
HPI - Ear Problem General Chief complaint: Ear Stated complaint: EARS CLOGGED Time Seen by Provider: 09/26/23 16:55 Source: patient Mode of arrival: ambulatory Limitations: no limitations History of Present Illness HPI Narrative: 83-year-old female presented for complaint of right ear clogged with ear wax. States she was seen by her hearing aid company to be fitted for an ear canal mold, however the mold could not be completed due to the excess cerumen. She was advised to have ear wax removal. Denies tinnitus, dizziness, nausea, vomiting, fever chills. MD Complaint: ear pain Related Data Home Medications Medication Instructions Recorded Confirmed lansoprazole 15 mg capsule,delayed 15 mg PO DAILY 04/11/22 09/26/23 release (Prevacid 24Hr) loratadine 10 mg tablet (Claritin) 10 mg PO DAILY 04/11/22 09/26/23 cyanocobalamin (vitamin B-12) 1,000 mcg PO DAILY 09/29/22 09/26/23 1,000 mcg capsule spironolactone 25 mg tablet 25 mg PO DAILY 12/26/22 09/26/23 calcium-vitamin D3-vitamin K 500 2 tablet PO DAILY 05/31/23 09/26/23 mg-100 unit-40 mcg chewable tablet clonazepam 0.5 mg tablet 0.5 mg PO BID 08/12/23 09/26/23 Allergies Allergy/AdvReac Type Severity Reaction Status Date / Time cephalexin AdvReac Mild YEAST Verified 09/26/23 17:01 INFECTION cefdinir AdvReac Unknown Unknown Verified 09/26/23 17:01 clarithromycin AdvReac Unknown Unknown Verified 09/26/23 17:01 clindamycin AdvReac Unknown Other Verified 09/26/23 17:01 codeine AdvReac Unknown Nervousness Verified 09/26/23 17:01 dexamethasone AdvReac Unknown Unknown Verified 09/26/23 17:01 doxycycline AdvReac Unknown Unknown Verified 09/26/23 17:01 morphine AdvReac Unknown Headache Verified 09/26/23 17:01 tobramycin AdvReac Unknown Unknown Verified 09/26/23 17:01 Review of Systems Review of Systems: CONSTITUTIONAL: Denies malaise, chills, or fever. EYES: Denies visual changes, redness, or discharge. ENT: Denies rhinorrhea, congestion, sinus pain, and sore throat. Reports ear wax CARDIOVASCULAR: Denies chest pain, palpitations, or edema. RESPIRATORY: Denies cough or dyspnea. GASTROINTESTINAL: Denies abdominal pain, nausea, vomiting, diarrhea SKIN: Denies rash or itching. MUSCULOSKELETAL: Denies myalgia. NEUROLOGIC: Denies headache. All systems reviewed & are unremarkable except as noted in HPI and below PMFSH Past Medical History Medical History Acid reflux Acute on chronic anemia Acute respiratory failure with hypoxia Adrenal adenoma benign COVID-19 virus infection DVT prophylaxis Elevated LFTs Hepatic steatosis and liver cyst Hiatal hernia Hypertension Hypothyroidism ILD (interstitial lung disease) Irritable bowel Macrocytic anemia Migraines Obesity Osteoporosis Pneumonia due to COVID-19 virus Rectal bleeding Rhinitis Vulvar inflammation Surgical History Surgical History History of ankle surgery (~2000) ORIF right ankle History of bilateral cataract extraction History of carpal tunnel surgery of right wrist (~2015) History of colonoscopy with polypectomy most recent December 2018 with edematous polyps History of hemorrhoidectomy (~2011) History of medial meniscus repair of right knee (~2014) History of reconstructive repair of rectocele (~1995) History of vaginal hysterectomy (~1995) without oophorectomy S/P laparoscopic-assisted sigmoidectomy (~08/2018) due to chronic diverticulitis Family History Family History Sibling Hypertension Hyperlipidemia Thyroid disease it sounds as if the patient sister likely had Graves disease with a thyroidectomy and then became ill because her thyroid hormone was not replaced. Acute myocardial infarction Brother early-onset Artificial cardiac pacemaker brother Mother Hypertension Thyroid disease It so
== END 2023-09-26 17:11 | disposition home or self-care (01) ==
PROVIDERS: Emergency Provider Nurse Practitioner Family; PCP Internal Medicine
DX: H61.21 Impacted cerumen, right ear (principal); K21.9 Gastro-esophageal reflux disease without esophagitis; I10 Essential (primary) hypertension; E03.9 Hypothyroidism, unspecified; E66.9 Obesity, unspecified; Z68.25 Body mass index [BMI] 25.0-25.9, adult; M81.0 Age-related osteoporosis without current pathological fracture
CPT/HCPCS: 69210; 99212; G0463

== ENCOUNTER 2023-09-29 15:41 | Emergency (ER) | payer MEDICARE, SELFPAY ==
[2023-09-29] VITALS (17 sets, daily range): BP systolic 103–154; BP diastolic 40–68; PULSE 79–95; RESP 14–20; TEMP 36.4–37.2; O2SAT 93–100
--- NOTE | ~2023-09-29 | XR_ITS ---
EXAMINATION: XR chest 1V portable DATE: 09/29/2023 17:11 INDICATION: Shortness of breath TECHNIQUE: Portable AP view of the chest was obtained COMPARISON: Chest radiograph dated 01/08/2023 FINDINGS: Unchanged mild biapical pleural-parenchymal scarring. Also unchanged is a small calcified nodule at t he right lung base consistent with old granulomatous disease. Mild linear discoid atelectasis at the left lower lung zone. No pneumonia, pulmonary edema, pleural effusion or pneumothorax. The cardiomedi astinal silhouette is normal. Mild mid thoracic dextrocurvature. IMPRESSION: 1. No acute cardiopulmonary disease. Reviewed, dictated and finalized at location B.
--- NOTE | 2023-09-29 17:03 | ECG_ITS ---
Test Date: 2023-09-29 17:16:03 Measurements Intervals Slaughters Rate: 87 P: 66 MI: 171 QRS: -9 QRSD: 107 T: 41 QT: 351 QTc: 425 Interpretive Statements SINUS RHYTHM WITH SINUS ARRHYTHMIA No previous ECG available for comparison Electronically Signed On 09-30-2023 11:07:47 CDT by Tre Wheeler M.D.
--- NOTE | 2023-09-29 17:13 | ED.RECABL ---
HPI - Recheck/Abnormal Lab/Rx General Chief Complaint: Recheck/Abnormal Lab/Rx Stated Complaint: I'm low on blood Time Seen by Provider: 09/29/23 17:03 Source: patient Mode of arrival: ambulatory Limitations: no limitations History of Present Illness HPI narrative: This is a 83-year-old female that presents to the emergency department for shortness of breath. Worsening over the last couple of days. Reports history of 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 syndrome. She frequently requires blood transfusions due to this. Reports she feels as though she is low on blood. She follows with Dr. Ty for this. her last transfusion was a couple of weeks ago. She is scheduled for 1 next week, but does not believe she will make it to this. Denies chest pain. Related Data Home Medications Medication Instructions Recorded Confirmed lansoprazole 15 mg capsule,delayed 15 mg PO DAILY 04/11/22 09/26/23 release (Prevacid 24Hr) loratadine 10 mg tablet (Claritin) 10 mg PO DAILY 04/11/22 09/26/23 cyanocobalamin (vitamin B-12) 1,000 mcg PO DAILY 09/29/22 09/26/23 1,000 mcg capsule spironolactone 25 mg tablet 25 mg PO DAILY 12/26/22 09/26/23 calcium-vitamin D3-vitamin K 500 2 tablet PO DAILY 05/31/23 09/26/23 mg-100 unit-40 mcg chewable tablet clonazepam 0.5 mg tablet 0.5 mg PO BID 08/12/23 09/26/23 Allergies Allergy/AdvReac Type Severity Reaction Status Date / Time cephalexin AdvReac Mild YEAST Verified 09/26/23 17:01 INFECTION cefdinir AdvReac Unknown Unknown Verified 09/26/23 17:01 clarithromycin AdvReac Unknown Unknown Verified 09/26/23 17:01 clindamycin AdvReac Unknown Other Verified 09/26/23 17:01 codeine AdvReac Unknown Nervousness Verified 09/26/23 17:01 dexamethasone AdvReac Unknown Unknown Verified 09/26/23 17:01 doxycycline AdvReac Unknown Unknown Verified 09/26/23 17:01 morphine AdvReac Unknown Headache Verified 09/26/23 17:01 tobramycin AdvReac Unknown Unknown Verified 09/26/23 17:01 Review of Systems Review of Systems: CONSTITUTIONAL: Denies fever CARDIOVASCULAR: Denies chest pain, or edema. RESPIRATORY: Reports dyspnea. All systems reviewed & are unremarkable except as noted in HPI and below PMFSH Past Medical History Medical History Acid reflux Acute on chronic anemia Acute respiratory failure with hypoxia Adrenal adenoma benign COVID-19 virus infection DVT prophylaxis Elevated LFTs Hepatic steatosis and liver cyst Hiatal hernia Hypertension Hypothyroidism ILD (interstitial lung disease) Irritable bowel Macrocytic anemia Migraines Obesity Osteoporosis Pneumonia due to COVID-19 virus Rectal bleeding Rhinitis Vulvar inflammation Surgical History Surgical History History of ankle surgery (~2000) ORIF right ankle History of bilateral cataract extraction History of carpal tunnel surgery of right wrist (~2015) History of colonoscopy with polypectomy most recent December 2018 with edematous polyps History of hemorrhoidectomy (~2011) History of medial meniscus repair of right knee (~2014) History of reconstructive repair of rectocele (~1995) History of vaginal hysterectomy (~1995) without oophorectomy S/P laparoscopic-assisted sigmoidectomy (~08/2018) due to chronic diverticulitis Family History Family History Sibling Hypertension Hyperlipidemia Thyroid disease it sounds as if the patient sister likely had Graves disease with a thyroidectomy and then became ill because her thyroid hormone was not replaced. Acute myocardial infarction Brother early-onset Artificial cardiac pacemaker brother Mother Hypertension Thyroid disease It sounds as if her mother likely had Graves disease Father Emphysema lung Grandparent Lung cancer Other Carcinoma of colon Family history of malignant neoplasm of breast Fami
[2023-09-29 17:43] LABS: Basophils Absolute Auto 0.1 K/mm3 (0.0-0.1); Basophils Percent Auto 1.4 % (0.2-1.2); Eosinophils Absolute Auto 0.1 K/mm3 (0-0.3); Eosinophils Percent Auto 1.7 % (0-4.4); Hematocrit 21.2 % (37.0-47.0); Immature Granulocyte Absolute 0.02 K/mm3 (0.00-0.031); Immature Granulocyte Percent A 0.6 % (0-0.5); Lymphocytes Absolute Auto 1.19 K/mm3 (0.9-3.2); Lymphocytes Percent Auto 33.3 % (18.3-44.2); Mean Corpuscular HGB Conc 31.6 g/dl (32-36); Mean Platelet Volume 11.2 fl (7.4-10.4); Monocytes Absolute Auto 0.4 K/mm3 (0.1-0.6); Monocytes Percent Auto 11.2 % (2.6-8.5); Neutrophils Absolute Auto 1.9 K/mm3 (1.3-6.7); Neutrophils Percent Auto 51.8 % (45.5-73.1); Nucleated Red Blood Cells Perc 1.4 % (0.0-0.2); Platelet Count Result 236 k/mm3 (150-375); Red Blood Count 1.86 M/mm3 (4.2-5.4); White Blood Count 3.6 K/mm3 (4.5-10.0)
[2023-09-29 17:54] LABS: Alanine Aminotransferase 22 U/L (6-35); Albumin Level 4.1 g/dL (3.5-5.1); Alkaline Phosphatase 50 U/L (38-126); Anion Gap 6 mmol/L (4-12); Aspartate Amino Transferase 25 U/L (14-36); Blood Urea Nitrogen 16 mg/dL (7-17); Calcium 8.9 mg/dL (8.4-10.2); Carbon Dioxide 31 mmol/L (22-30); Chloride 100 mmol/L (98-107); Estimated Glomerular Filt Rate > 60; Glucose 89 mg/dL (65-110); Potassium 4.7 mmol/L (3.4-5.0); Sodium 137 mmol/L (137-145)
[2023-09-29 17:56] LABS: INR 1.2; Prothrombin Time 15.9 Seconds (11.1-14.7)
[2023-09-29 17:57] LABS: Hemoglobin 6.7 g/dL (12.0-15.0); Partial Thromboplastin Time 29.9 Seconds (22.3-36.8)
[2023-09-29 17:59] LABS: Platelet Estimate Adequate (Adequate)
[2023-09-29 18:00] LABS: Anisocytosis 3+; Macrocytosis 2+ (NORMAL); Schistocytes None Seen
[2023-09-29 18:01] LABS: Microcytosis 2+ (NORMAL)
[2023-09-29] MEDS: SODIUM CHLORIDE 0.9% IV 250 ML 30 ML IV CONT (19:20)
[2023-09-29] MEDS: TUBING, BLOOD PLUM PUMP TUBING 1 EACH XX (19:55)
== END 2023-09-29 23:19 | disposition home or self-care (01) ==
PROVIDERS: Emergency Provider Physician Assistant; PCP Internal Medicine
DX: D64.9 Anemia, unspecified (principal); I10 Essential (primary) hypertension; E03.9 Hypothyroidism, unspecified; M81.0 Age-related osteoporosis without current pathological fracture; K76.0 Fatty (change of) liver, not elsewhere classified; R91.1 Solitary pulmonary nodule
CPT/HCPCS: 36415; 36430; 71045; 80053; 85025; 85610; 85730; 86850; 86900; 86901; 86923; 93005; 96360; 96361; 99285; J7050; P9016

== ENCOUNTER 2023-10-10 16:39 | Emergency (ER) | payer MEDICARE, SELFPAY ==
--- NOTE | ~2023-10-10 | XR_ITS ---
EXAMINATION: XR knee LT min 4V DATE: 10/10/2023 17:18 INDICATION: Left knee pain. Fall. TECHNIQUE: 4 views of left knee were obtained. COMPARISON: None. FINDINGS: Bone alignment is normal. No fracture. There is moderate osteoarthritis of medial compartme nt and mild osteoarthritis of lateral and patellofemoral compartments. There is a moderate-sized knee joint effusion. IMPRESSION: 1. Moderate left knee osteoarthritis. 2. Moderate-sized left knee joint effusion. Reviewed, dictated and finalized at location E.
[2023-10-10 16:47] VITALS: BP 160/44; PULSE 83; RESP 18; TEMP 36.4; O2SAT 98
[2023-10-10] MEDS: ACETAMINOPHEN 500 MG TABLET 1000 MG PO (19:25)
[2023-10-10] MEDS: IBUPROFEN 600 MG TABLET PO (19:25)
--- NOTE | 2023-10-10 19:35 | ED.LOWEXIN ---
HPI - Extremity Injury (Lower) General Chief Complaint: Extremity Injury, Lower Stated Complaint: fall, left knee injury Time Seen by Provider: 10/10/23 18:03 Source: patient Mode of arrival: ambulatory Limitations: no limitations History of Present Illness HPI Narrative: Patient is an 83-year-old female who presents the ED with report of left knee pain. Patient reports she tripped and fell just prior to arrival, and landed directly down on her L knee. She complains of pain to her left knee. States she is able to ambulate, but has pain with this. Has not taken anything for pain. Denies any other injuries, head injury, LOC, numbness. Related Data Home Medications Medication Instructions Recorded Confirmed lansoprazole 15 mg capsule,delayed 15 mg PO DAILY 04/11/22 10/04/23 release (Prevacid 24Hr) loratadine 10 mg tablet (Claritin) 10 mg PO DAILY 04/11/22 10/04/23 cyanocobalamin (vitamin B-12) 1,000 mcg PO DAILY 09/29/22 10/04/23 1,000 mcg capsule spironolactone 25 mg tablet 25 mg PO DAILY 12/26/22 10/04/23 calcium-vitamin D3-vitamin K 500 2 tablet PO DAILY 05/31/23 10/04/23 mg-100 unit-40 mcg chewable tablet clonazepam 0.5 mg tablet 0.5 mg PO BID 08/12/23 10/04/23 Allergies Allergy/AdvReac Type Severity Reaction Status Date / Time cephalexin AdvReac Mild YEAST Verified 10/09/23 10:56 INFECTION cefdinir AdvReac Unknown Unknown Verified 10/09/23 10:56 clarithromycin AdvReac Unknown Unknown Verified 10/09/23 10:56 clindamycin AdvReac Unknown Other Verified 10/09/23 10:56 codeine AdvReac Unknown Nervousness Verified 10/09/23 10:56 dexamethasone AdvReac Unknown Unknown Verified 10/09/23 10:56 doxycycline AdvReac Unknown Unknown Verified 10/09/23 10:56 morphine AdvReac Unknown Headache Verified 10/09/23 10:56 tobramycin AdvReac Unknown Unknown Verified 10/09/23 10:56 Review of Systems Review of Systems: CONSTITUTIONAL: Denies fever, chills, or sweats. MUSCULOSKELETAL: See HPI NEUROLOGIC: Denies headache, dizziness, numbness, or weakness. All systems reviewed & are unremarkable except as noted in HPI and below PMFSH Past Medical History Medical History Acid reflux Acute on chronic anemia Acute respiratory failure with hypoxia Adrenal adenoma benign COVID-19 virus infection DVT prophylaxis Elevated LFTs Hepatic steatosis and liver cyst Hiatal hernia Hypertension Hypothyroidism ILD (interstitial lung disease) Irritable bowel Macrocytic anemia Migraines Obesity Osteoporosis Pneumonia due to COVID-19 virus Rectal bleeding Rhinitis Vulvar inflammation Surgical History Surgical History History of ankle surgery (~2000) ORIF right ankle History of bilateral cataract extraction History of carpal tunnel surgery of right wrist (~2015) History of colonoscopy with polypectomy most recent December 2018 with edematous polyps History of hemorrhoidectomy (~2011) History of medial meniscus repair of right knee (~2014) History of reconstructive repair of rectocele (~1995) History of vaginal hysterectomy (~1995) without oophorectomy S/P laparoscopic-assisted sigmoidectomy (~08/2018) due to chronic diverticulitis Family History Family History Sibling Hypertension Hyperlipidemia Thyroid disease it sounds as if the patient sister likely had Graves disease with a thyroidectomy and then became ill because her thyroid hormone was not replaced. Acute myocardial infarction Brother early-onset Artificial cardiac pacemaker brother Mother Hypertension Thyroid disease It sounds as if her mother likely had Graves disease Father Emphysema lung Grandparent Lung cancer Other Carcinoma of colon Family history of malignant neoplasm of breast Family history of pancreatic cancer Social H
[2023-10-10 19:54] VITALS: BP 152/56; PULSE 74; RESP 16; O2SAT 99
== END 2023-10-10 19:55 | disposition home or self-care (01) ==
PROVIDERS: Emergency Provider Physician Assistant; PCP Internal Medicine
DX: S86.912A Strain of unspecified muscle(s) and tendon(s) at lower leg level, left leg, initial encounter (principal); M25.462 Effusion, left knee; I10 Essential (primary) hypertension; E03.9 Hypothyroidism, unspecified; E66.9 Obesity, unspecified; Z68.28 Body mass index [BMI] 28.0-28.9, adult; J84.9 Interstitial pulmonary disease, unspecified; D53.9 Nutritional anemia, unspecified; K58.9 Irritable bowel syndrome, unspecified; K21.9 Gastro-esophageal reflux disease without esophagitis; M81.0 Age-related osteoporosis without current pathological fracture; Z87.01 Personal history of pneumonia (recurrent); Z86.16 Personal history of COVID-19; Z98.42 Cataract extraction status, left eye; Z98.41 Cataract extraction status, right eye; Z90.710 Acquired absence of both cervix and uterus; Z90.49 Acquired absence of other specified parts of digestive tract; Z79.899 Other long term (current) drug therapy; Z77.22 Contact with and (suspected) exposure to environmental tobacco smoke (acute) (chronic); M17.12 Unilateral primary osteoarthritis, left knee; W01.0XXA Fall on same level from slipping, tripping and stumbling without subsequent striking against object, initial encounter
CPT/HCPCS: 73564; 99283; A9270

== ENCOUNTER 2024-05-20 10:01 | Outpatient (CLI) | payer MEDICARE, SELFPAY ==
[2024-05-20 10:28] LABS: Hematocrit 25.1 % (37.0-47.0); Hemoglobin 8.2 g/dL (12.0-15.0); Immature Platelet Fraction Pct 11.5 % (0.9-11.2); Mean Corpuscular HGB Conc 32.7 g/dl (32-36); Mean Corpuscular Hemoglobin 34.5 pg (26-34); Mean Corpuscular Volume 105.5 fl (80-100); Mean Platelet Volume 12.4 fl (7.4-10.4); Platelet Count Result 36 k/mm3 (150-375); Red Blood Count 2.38 M/mm3 (4.2-5.4); Red Cell Distribution Width 15.9 % (11.5-14.5)
[2024-05-20 10:59] LABS: White Blood Count 0.8 K/mm3 (4.5-10.0)
[2024-05-20 12:28] LABS: Lymphocytes Absolute Manual 0.37 K/mm3 (1.1-4.5); Lymphocytes Percent Manual 47 % (18-44); Monocytes Percent Manual 1 % (3-9); Neutrophils Percent Manual 1 % (46-73); Platelet Estimate Decreased (Adequate); Total Cells Counted 50
[2024-05-20 12:29] LABS: Anisocytosis 1+; Macrocytosis 1+ (NORMAL)
[2024-05-20 12:30] LABS: Schistocytes None Seen
--- OUTSIDE RECORDS SUMMARY | 2024-05-20 12:58 | XMS_ITS | Encounter Summary ---
Author Organization [facility] Address [address] [place] [address] Phone Care Team Providers Care Deputy Sheriff Chief Name Role Phone Bryan Davey DO Primary Care Provider [phone] Encounter Details Date Type Department Care Team (Late st Contact Info) Description 05/20/2024 Telephone [facility] On[facility] [address] [place] [address] [address] [address] Radha Veliz RN Social History Tobacco Use Types Packs/Day Years Used Date Smoking Tobacco: Never Smokeless Tobacco: Never Alcohol Use Standard Drinks/Week Comments Yes 0 (1 standard drink = 0.6 oz pur e alcohol) AUDIT-C Answer Date Recorded Q1: How often do you have a drink containing alcohol? Never 04/18/2024 Q2: How many drinks containi ng alcohol do you have on a typical day when you are drinking? Patient does not drink Q3: How often do you have si x or more drinks on one occasion? Never 04/18/2024 Personal Safety Answer Date Recorded Have you ever been in or are you currently in a harmful physical or emotional relationship or is someone making you feel afraid or unsafe? 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 CBC order sent to sabi Javier received from the fax. Patients call returnedand informed she can have them there. But, if the results are low she will need to present to our facility for repeat labs and type and screen. Patient gave verbal understanding. UCT DEVELOPMENT ECOLOGIST documented in this encounter Plan of Treatment Not on file documented as of this encounter Visit Diagnoses Not on filedocumented in this encounter Care Teams Deputy Sheriff Chief Relationship Specialty Start Date End Date Bryan Davey DO PCP - General Internal Medicine 11/14/23 documented as of this encounter
--- OUTSIDE RECORDS SUMMARY | 2024-05-20 12:58 | XMS_ITS | Clinical Summary ---
Author Organization [facility] Address [address] [address] Care Team Providers Care Gill Box Tender Name Role Phone Unavailable Primary Care Provider Unavailabl e Allergies Active Allergy Reactions Criticality Noted Date Comments Antihistamine-1 Anxiety Low 09/07/2022 Cephalexin Nausea and Vomiting Low 06/27/2020 Yeast infection Morphine Headache,Nausea and Vomiting Low 021 Migraines Medications Prolia 60 mg/mL Syringe INJECT 60 MG SUBCUTANEOUSLY EVERY 6 MONTHS Active levothyroxine 50 mcg tablet Take 50 mcg by mouth daily. 3 Active spironolactone (ALDACTONE) 25 mg tablet Take 1 Tablet by mouth 2 times daily. 2 Active loratadine (CLARITIN) 5 mg/5 mL solution Take 10 mg by mouth daily. Active METOPROLOL SUCCINATE ORAL Take 12.5 mg by mouth. Active PANTOTHENIC ACID, VIT B5, ORAL Take by mouth. Activ e Active Problems Problem Noted Date Diagnosed Date Chronic anemia 10/03/2022 Encounters Date Type Department Care Team Description 05/01/2024 External Device Data [facility] ABSTRACTION Provider, Abstract 04/25/2024 External Device Data [facility] ABSTRACTION Provider, Abstract from Last 3 Months Family History Medical History Relation Name Comments Heart Disease Brother Heart Disease Father Skin Cancer Father Heart Disease Sister 1 Relation Name Status Comments Brother Alive Daughter Alive Father Mother Sister 1 Alive Sister 2 Son Alive Social History Tobacco Use Types Packs/Day Years Used Date Smoking Tobacco: Never Smokeless Tobacco: Never Tobacco Cessation:Counseling Given: Not Answered Alcohol Use Standard Drinks/Week Comments Not Currently 0 (1 standard drink = 0.6 oz pur e alcohol) Comments Unknown Sex and Gender Information Value Date Recorded Sex Assigned at Not on file Legal Sex Female 8:32 AM CDT Gender Identity Not on file Sexual Orientation Not on file Last Filed Vital Signs Vital Sign Reading Time Taken Comments Blood Pressure 124/60 10/26/2023 2:19 PM CDT Pulse 107 10/26/2023 2:19 PM CDT Temperature 36.8 C (98.2 F) 10/26/2023 2:13 PM CDT Respiratory Rate 18 10/26/2023 2:13 PM CDT Oxygen Saturation 94% 09/21/2023 2:10 PM CDT Inhaled Oxygen Concentration - - Weight 57.2 kg (126 lb) 10/26/2023 2:13 PM CDT Height 152.4 cm (5') 09/07/2022 3:49 PM CDT Body Mass Index 24.61 09/07/2022 3:49 PM CDT Plan of Treatment Health Maintenance Due Date Last Done Comments RSV VACCINE (60+ or ) (1 - 1-dose 75+ series) 02/09/2016 INFLUENZA VACCINE (#1) 2023 3, 01/07/2022, 01/15/2021, Additional history exists DTAP/TDAP/TD VACCINES (2 - T d or Tdap) 09/08/2029 09/09/2019 PNEUMOCOCCAL VACCINE 65+ YEARS Completed 0 10/26/2020, 05/18/2016, 04/03/2016, Additional history exists ZOSTER VACCINE Completed 03/29/2022, 10/02, 04/03/2016 OSTEOPOROSIS SCREENING Completed 4, 08/09/2022, 08/07/2020 Insurance MEDICARE PART A AND B BCBS SUPP
--- OUTSIDE RECORDS SUMMARY | 2024-05-20 12:59 | XMS_ITS | Referral Summary ---
Author Organization [facility] Address [address] [place] [address] Care Team Providers Care Clinical Counselor Name Role Phone Mervat Kelley ASSEMBLER MUSICAL INSTRUMENTS-TIRE REBUILDER Primary Care Provider + Source Comments [facility],non-owned Affiliates and Associated Physician Practices is amultiple site organization consisting of ambulatory clinics and hospital sitesin [place], [place], [place] and [place]. This disclosure is being madepursuant to the Care Everywhere program and may not contain all information available regarding this patient. Last updated 17.[facility] Allergies Active Allergy Reactions Criticality Noted Date Comments Codeine Other 09/29/2021 Hallucinations Cephalexin Nausea and/or Vomiting 09/29/2021 Morphine Nausea and/or Vomiting,Headache 09/29/2021 Medications * Be aware that medications may not be up to date on this document. Alwaysverify current medications with the patient. Medication Sig Dispensed Refills Start Date End Date Status cyanocobalamin (VITAMIN B-12) 500 MCG tablet Take 1 (one) tablet by mouth once daily 90 tablet 09/30/2021 Active amLODIPine (Norvasc) 5 MG tablet Take 1 (one) tablet by mouth once daily Active spironolactone (Aldactone) 25 MG tablet Take 1 (one) tablet by mouth 2 times daily 09/20/2021 Active moxifloxacin (Vigamox) 0.5 % ophthalmic solution Instill 1 (one) drop into both eyes Active neomycin-polymyxin -dexameth (Maxitrol) ophthalmic suspension Active nepafenac (Nevanac) 0.1 % ophth suspension Nevanac 0.1 % eye drops,suspension Active olopatadine (Pataday) 0.2 % ophthalmic solution Instill into both eyes once daily Active fish oil/omega-3 fatty acids (Promega;Cardi-Ome ga 3) 1000 MG capsule Take 2 (two) capsules by mouth daily with food Active triamcinolone acetonide (Kenalog) 0.5 % ointment triamcinolone acetonide 0.5 % topical ointment USE ONE APPLICATION TWICE DAILY NEEDED FOR SKIN IRRITATION Active Active Problems Problem Noted Date Diagnosed Date Closed fracture of distal en d of left humerus with routine healing 09/29/2021 Closed fracture of distal en d of left humerus with routine healing, unspecified fracture morphology, subsequent encounter 09/29/2021 Immunizations Name Administration Dates Next Due Meagan Modernpaul primary monova lent 12+ yr 0.5mL 02/01/2021 INFLUENZA VACCINE, HIGH-DOSE , QUADR. (FLUZONE HIGH-DOSE QUADRIVALENT; 65Y+), 0.7 ML (HD-IIV4) 01/07/2022,01/15/2021,01/13/2020 INFLUENZA VACCINE, HIGH-DOSE , TRIV. (FLUZONE HIGH-DOSE TRIVALENT; 65Y+) (HD-IIV3) 02/06/2018,02/02/2016 INFLUENZA VACCINE, TRIV. (FL UZONE; FLULAVAL; FLUARIX; AFLURIA TRIVALENT; 6MO+), 0.5 ML (IIV3) 02/13/2013 PNEUMOCOCCAL PPV VACCINE 10/26/2020,01/11/2006 Pneumococcal Pcv13 Conj 05/18/2016,04/03/2016 TDAP, HISTORIC VACCINE 09/09/2019 ZOSTER VACCINE, LIVE 04/03/2016 Zoster Hzv Vacc Recombinant Inj Im 03/29/2022, Social History Tobacco Use Types Packs/Day Years Used Date Smoking Tobacco: Never Smokeless Tobacco: Never Tobacco Cessation:Counseling Given: Not Answered Alcohol Use Standard Drinks/Week Comments Yes 0 (1 standard drink = 0.6 oz pur e alcohol) 0.5 glasses of wine socially AUDIT-C Answer Date Recorded Q1: How often do you have a drink containing alcohol? Never 09/29/2021 Q2: How many drinks containi ng alcohol do you have on a typical day when you are drinking? Patient does not drink Q3: How often do you have si x or more drinks on one occasion? 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
--- OUTSIDE RECORDS SUMMARY | 2024-05-20 12:59 | XMS_ITS | Clinical Summary ---
Author Organization [facility] Address [address], [address] [address] Phone Care Team Providers Care It Service Technician Name Role Phone ReinaldotravonMervat APRN Primary Care Provider [phone]- [phone] Medications polyethylene glycol (MIRALAX) Powder Use entire bottle of 255 grams of miralax for Colon prep as directed by office. 255 g 05/04/2017 Active Social History Tobacco Use Types Packs/Day Years Used Date Smoking Tobacco: Never Assessed Comments Unknown Sex and Gender Information Value Date Recorded Sex Assigned at Not on file Legal Sex Female 7:15 PM CDT Gender Identity Not on file Sexual Orientation Not on file Plan of Treatment Health Maintenance Due Date Last Done Comments DEXA Bone Density 1940 Hepatitis C Virus (HCV) Screening 1940 TdaP Immunization 1940 Pneumococcal Immunization (5 0+ years) (1 of 1 - PCV) 1991 Zoster Immunization (1 of 2) 1991 Respiratory Syncytial Virus (RSV) Immunization (Adult) (1 - 1-dose 75+ series) 02/09/2016 Influenza Immunization (#1) 2023 SARS-COV-2 Immunization ( - 2023- season) 2023 Hepatitis B Immunization Aged Out No longer eligible based on patient's age to complete this topic Meningococcal Immunization (ACWY) Aged Out No longer eligible based on patient's age to complete this topic Rotavirus Immunization Aged Out No lo nger eligible based on patient's age to complete this topic Insurance MEDICARE [facility] Care Teams It Service Technician Relationship Specialty Start Date End Date Mervat Kelley APRN PCP - General Advanced Practice Nurse 06/12/17
--- OUTSIDE RECORDS SUMMARY | 2024-05-20 12:59 | XMS_ITS ---
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 Risks and benefits such as infection and clotting have been discussed. All questions have been answered. Patient would prefer the right side of possible. We will set her up for this. MDS (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 syndrome) 11/02/2023 Anxiety 12/07/2022 Benign neoplasm of adrenal gland 12/07/2022 Derangement of medial meniscus 12/07/2022 Elevation of level of transa minase and lactic acid dehydrogenase (LDH) 12/07/2022 Essential hypertension 12/07/2022 Hyperlipidemia 12/07/2022 Hypothyroidism 12/07/2022 Low back pain 12/07/2022 Numbness of hand 12/07/2022 Pruritic disorder 12/07/2022 Vitamin D deficiency 12/07/2022 Anemia 10/03/2022 Interstitial lung disease (CMS/HCC) 03/24/2020 Postinflammatory pulmonary fibrosis (CMS/HCC) Osteoporosis 01/30/2018 Hoarseness 08/26/2014 Overview (07/08/2016): Hoarseness Dysphagia 08/26/2014 Overview (07/08/2016): Dysphagia Current Treatment and Therapy Plans Adult ONE TIME USE - Blood and/or Platelet Administration for Outpatient* Plan Start Date:05/20/2024 Plan Provider:Chalino Chapa MD Linked Problems MDS (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 syndrom e) ([facility]) Treatment Medications No medications scheduled. Decitabine (D1-5) 28 Day Cycles - AML or MDS* Plan Start Date:11/26/2023 Plan Provider:Chalino Chapa MD Linked Problems MDS (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 syndrom e) ([facility]) Treatment Medications Current Day (Day 1 , Cycle 3 - Planned for 05/27/2024) Next Day (Day 2, Cycle 3 - Planned for 05/28/2024) decitabine (DACOGEN)decitabine (DACOGEN) IVPB decitabine (DACOGEN) 23.5 mg in sodium chloride 0.9% 100 mL IVPB decitabine (DACOGEN) 23.5 mg in sodium chloride 0.9% 100 mL IVPB Other Current Plans IV Maintenance Therapy Plan & Alteplase (CATHFLO ACTIVASE) - orders for occluded catheters* Plan Start Date:11/28/2023 Plan Provider:Michael Terry MD Linked Problems Encounter for care related t o Port-a-Cath Treatment Medications No medications scheduled. Past Treatment and Therapy Plans Blood Products Plan Name Start Date Discontinue Date Treatment Medications Discontinue Reason Plan Provider Adult ONE TIME USE - Blood and/or Platelet Administration for Outpatient 05/16/2024 05/17/2024 No medications scheduled. Therapy Complete Chalino Chapa MD Adult ONE TIME USE - Blood and/or Platelet Administration for Outpatient 05/10/2024 05/10/2024 No medications scheduled. Therapy Complete Chalino Chapa MD Adult Non-ONC - Blood and/or Platelet Administration for Outpatient 11/27/2023 05/10/2024 No medications scheduled. Therapy Complete Michael Terry MD Adult ONCE TIME USE - Blood and/or Platelet Administration for Outpatient 11/14/2023 11/15/2023 No medications scheduled. Therapy Complete Michael Terry MD Lifetime Dose Tracking * Chemical Lifetime Dose Automatic Entry Manual Entr y Fluoro Time 0.3 minutes 0.3 minutes 0 minutes Air kerma at the reference point (Ka,r) 2.47 mGy 2 .47 mGy 0 mGy Resolved Problems Problem Noted Date Diagnosed Date Resolved Date Myelodysplastic syndrome with low blasts 12/12/2023 02/07/2024 Ankle pain 12/07/2022 12/07/2022 Hip pain 12/07/2022 12/07/2022 Candidiasis 12/07/2022 12/07/2022 Osteopenia 12/07/2022 12/07/2022 Rhinitis 12/07/2022 12/07/2022 Sinusitis 12/07/2022 12/07/2022 Upper respiratory infection 12/07/2022 12/07/2022 Closed fracture of fifth metatarsal bone 10/06/2021 12/07/2022 Fracture of humerus 10/05/2021 12/08/19 Closed fracture of distal end of humerus 09/29/2021 12/07/2022 Constipation 06/03/2021 12/07/2022 COVID-19 01/21/2020 12/07/2022 Pneumonia 01/21/2020 12/07/2022 Tear of medial meniscus of left knee, current 06/07/19 19 12/07/2022 Overview (06/06/2018): Added automatically from request for surgery [id number]
--- OUTSIDE RECORDS SUMMARY | 2024-05-20 12:59 | XMS_ITS | Clinical Summary ---
Author Organization [facility] Building B Address [address] [place] [address] Care Team Providers Care Installation And Service Technician Name Role Phone Bryan Davey DO Primary Care Provider [phone] Allergies Active Allergy Reactions Criticality Noted Date Comments Antihistamine-1 Anxiety Low 09/07/2022 Cefdinir Other (See comments) Low Yeast infection Clarithromycin Itching,Nausea & Vomiting Low Clindamycin Other (See comments) Low Elevates liver enzymes Codeine Other (See comments) Low 06/27/2020 Hallucinations Doxycycline Nausea & Vomiting Low Decreased appetite Morphine Nausea & Vomiting,Other (See comments),Headache, Nausea And Vomiting Low 06/27/2020 Migraines Tobramycin-Dexamethasone Itching,Nausea & Vomiting Low Burning at site. Medications spironolactone (ALDACTONE) 25 mg tablet daily . 4 9 Active calcium carbonate-vitam in D3 600 mg (1,500 mg)-800 unit tablet,chewable Take 1 tablet by mouth daily . Active cyanocobalamin (Vitamin B-12) 500 mcg tablet Take 1 tablet (500 mcg total) by mouth daily 2 Active Prolia 60 mg/mL syringe Inject 1 mL (60 mg total) under the skin 2 injection/year 2 Active PANTOTHENIC ACID, VIT B5, ORAL Take by mouth Active clonazePAM (KlonoPIN) 0.5 mg tablet Take 0.5 tablets (0.25 mg total) by mouth 2 (two) times a day 4 Active folic acid (FOLVITE) 400 mcg tablet Take 660 mcg by mouth daily Active green tea leaf extract capsule Take 400 mg by mouth daily Active loratadine (CLARITIN) 10 mg tablet Take 1 tablet (10 mg total) by mouth daily Active lansoprazole (PREVACID) 15 mg capsule Take 1 capsule (15 mg total) by mouth daily Active docusate sodium (Colace) 100 mg capsuleIndicati ons:constipatio n Take 1 capsule (100 mg total) by mouth 2 (two) times a day for 14 days 28 capsule 4 Active prochlorperazin e (Compazine) 10 mg tabletIndicatio ns:MDS (myelodysplasti c syndrome) ([facility]) Take 1 tablet (10 mg total) by mouth every 6 (six) hours as needed for nausea or vomiting 120 tablet 3 4 Active acyclovir (ZOVIRAX) 400 mg tabletIndicatio ns:MDS (myelodysplasti c syndrome) ([facility]) Take 1 tablet (400 mg total) by mouth 3 (three) times a day For shingles prevention. 90 tablet 3 4 Active lidocaine-prilo danie (EMLA) creamIndication s:Administratio n of Local Anesthesia Apply topically as needed for pain Apply to site approx 30-60 minutes prior to use do not rub in, cover with light dressing 30 g 1 4 Active levothyroxine (SYNTHROID) 75 mcg tablet Take 1 tablet (75 mcg total) by mouth independent distributor before breakfast 30 tablet 4 Active oxyBUTYnin XL (DITROPAN-XL) 5 mg 24 hr tablet 4 Active Active Problems Problem Noted Date Diagnosed [...] (07/08/2016): Hoarseness Dysphagia 08/26/2014 Overview (07/08/2016): Dysphagia Resolved Problems Problem Noted Date Diagnosed Date [...] (06/06/2018): Added automatically from request for surgery [id number] Encounters Date Type Department Care Team Description 05/20/2024 Telephone [facility] [address] [place] [address] Office [facility] [address] [place] [address] Radha Veliz, ALBERT 05/20/2024 Telephone [facility] [address] [place] [address] [address] [place] [address] Radha Veliz, ALBERT 05/17/2024 1:00 PM FIRE SPRINKLER SERVICE TECHNICIAN Infusion [address] [place] [address] MDS (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 syndrome) (HCC) (Primary Dx); Encounter for care related to Port-a-Cath 05/17/2024 Orders Only [facility] [address] [place] [address] [address] [place] [address] Chalino Chapa MD MDS (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 syndrome) (HCC) (Primary Dx) 05/17/[address] [place] [address] Karen Donaldson RN 05/16/2024 10:30 AM FIRE SPRINKLER SERVICE TECHNICIAN Lab [address] [place] [address] MDS (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 syndrome) (HCC) 05/16/2024 Telephone [facility] [address] [place] [address] [address] [place] [address] Radha Veliz, ALBERT 05/16/[address] [place] [address] Yadi Gtz RN 05/16/[address] [place] [address] Chalino Chapa MD 05/16/2024 Orders Only [facility] [address] [place] [address] Medical Office [facility] [address] [place] [address] Chalino Chapa MD MDS (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 syndrome) (HCC) (Primary Dx) 05/10/2024 11:00 AM FIRE SPRINKLER SERVICE TECHNICIAN Infusion [address] [place] [address] Anemia, unspecified type (Primary Dx); MDS (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 syndrome) (HCC) 05/10/2024 9:45 AM FIRE SPRINKLER SERVICE TECHNICIAN Lab [address] [place] [address] Anemia, unspecified type (Primary Dx); MDS (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 syndrome) (HCC) 05/10/2024 Orders Only [facility] [address] [place] [address] Medical Office [facility] [address] [place] [address] Chalino Chapa MD MDS (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 syndrome) (HCC) (Primary Dx) 05/08/2024 Orders Only [facility] [address] [place] [address] Medical Office [facility] [address] [place] [address] Chalino Chapa MD MDS (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 syndrome) (HCC) (Primary Dx) 05/03/2024 10:30 AM FIRE SPRINKLER SERVICE TECHNICIAN Infusion [address] [place] [address] Encounter for care related to Port-a-Cath (Primary Dx); MDS (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 syndrome) (HCC) 05/02/2024 10:30 AM FIRE SPRINKLER SERVICE TECHNICIAN Infusion [address] [place] [address] MDS (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 syndrome) (HCC) (Primary Dx); Encounter for care related to Port-a-Cath 05/01/2024 9:30 AM FIRE SPRINKLER SERVICE TECHNICIAN Infusion [address] [place] [address] MDS (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 syndrome) (HCC) (Primary Dx); Encounter for care related to Port-a-Cath 04/30/2024 10:00 AM FIRE SPRINKLER SERVICE TECHNICIAN Infusion [facility] Infusion [place] [address] [place] [address] MDS (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 syndrome) (HCC) (Primary Dx); Encounter for care related to Port-a-Cath 04/29/2024 9:30 AM FIRE SPRINKLER SERVICE TECHNICIAN Infusion [address] [place] [address] MDS (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 syndrome) (HCC) (Primary Dx); Encounter for care related to Port-a-Cath 04/29/2024 9:15 AM FIRE SPRINKLER SERVICE TECHNICIAN Office Visit [facility] [address] [place] [address] Office [address] [place] [address] Milla Armenta, CLAUDIA MDS (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 syndrome) (HCC) 04/29/2024 8:45 AM FIRE SPRINKLER SERVICE TECHNICIAN Lab [address] [place] [address] MDS (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 syndrome) (HCC) 04/29/2024 Orders Only [facility] [address] [place] [address] Office [address] [place] [address] Milla Armenta, CLAUDIA MDS (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 syndrome) (HCC) (Primary Dx) 04/26/2024 Telephone [facility] [address] [place] [address] Medical Office [address] [place] [address] Clau Cabral, CLT 04/25/2024 Telephone [facility] [address] [place] [address] Medical Office [address] [place] [address] Anisa Villagran, CLT 04/25/2024 Orders Only [facility] [address] [place] [address] Office [address] [place] [address] Chalino Chapa MD 04/24/2024 Orders Only [facility] [address] [place] [address] Office [facility] [address] [place] [address] Chalino Chapa MD 04/23/2024 Telephone [facility] [address] [place] [address] Office [facility] [address] [place] [address] Anisa Villagran, CLT 04/23/2024 Orders Only [facility] [address] [place] [address] [address] [place] [address] Chalino Chapa MD 04/18/2024 10:15 AM FIRE SPRINKLER SERVICE TECHNICIAN Office Visit [facility] [address] [place] [address] [address] [place] [address] Milla Armenta, CLAUDIA Myelodysplastic syndrome (HCC) (Primary Dx); MDS (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 syndrome) (HCC) 04/18/2024 9:45 AM FIRE SPRINKLER SERVICE TECHNICIAN Lab [address] [place] [address] MDS (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 syndrome) (HCC) 04/17/2024 2:00 PM FIRE SPRINKLER SERVICE TECHNICIAN Office Visit [facility] Primary Care at [address] [address] Shadi Tan DO Primary osteoarthritis of right knee (Primary Dx) 04/04/2024 11:00 AM FIRE SPRINKLER SERVICE TECHNICIAN Office Visit [facility] [address] [place] [address] [address] [place] [address] Chalino Chapa MD MDS (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 syndrome) (HCC) (Primary Dx) 04/04/2024 10:30 AM FIRE SPRINKLER SERVICE TECHNICIAN Lab [address] [place] [address] MDS (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 syndrome) (HCC) 03/21/2024 10:30 AM FIRE SPRINKLER SERVICE TECHNICIAN Lab [address] [place] [address] MDS (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 syndrome) (HCC) 03/07/2024 10:15 AM FIRE SPRINKLER SERVICE TECHNICIAN Office Visit [address] Office [facility] [address] [place] [address] Milla Armenta NP MDS (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 syndrome) (HCC) (Primary Dx) 03/07/2024 9:45 AM FIRE SPRINKLER SERVICE TECHNICIAN Lab [address] [place] [address] MDS (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 syndrome) (HCC) 03/06/[address] [place] [address] Clau Cabral CLT 02/22/2024 8:45 AM FIRE SPRINKLER SERVICE TECHNICIAN Office Visit [address] [place] [address] Chalino Chapa MD MDS (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 syndrome) (HCC) (Primary Dx) 02/22/2024 8:15 AM FIRE SPRINKLER SERVICE TECHNICIAN Lab [address] [place] [address] MDS (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 syndrome) (HCC) 02/22/2024 8:10 AM FIRE SPRINKLER SERVICE TECHNICIAN - 02/22/2024 11:59 PM FIRE SPRINKLER SERVICE TECHNICIAN Hospital Encounter [address] Discharge Disposition: Discharge to home or self care 02/21/[address] [place] [address] Clau Cabral, CLT from Last 3 Months Immunizations Immunization Administration Dates Next Due Influenza, Quadrivalent, Hig h Dose, Preservative Free, Intrr 03/14/2023,01/07/2022,01/15/2021,01/12 Influenza, Quadrivalent, Spl it, Intramuscular 02/14/2019,12/02/2016 Influenza, Trivalent, High D ose, Split, Preservative Free, Intramuscular 02/06/2018,02/02/2016 Influenza, Trivalent, IM (MDV) 02/01/2015,2013 Influenza, Trivalent, Preser vative Free, Intramuscular 02/13/2013 Pneumococcal Conjugate PCV 13 05/18/2016, 017 Pneumococcal Polysaccharide PPV23 10/26/2020,02/2006 Tdap 09/09/2019 ZOSTER LIVE 04/03/2016 ZOSTER Recombinant 03/29/2022,10/26/2020 Surgical History Surgery Date Site/Laterality Comments HYSTERECTOMY partial HAND SURGERY Right 1996 ANKLE FRACTURE SURGERY Left Pins and wire COLON SURGERY 08/03/2017 Diverticulitis, perforation, 13 inches KNEE SURGERY Bilateral 2014 & 2018 COLONOSCOPY Medical History Medical History Date Comments Hypertension Hypertension Hypothyroidism Hypothyroidism Hx Other Medical hysterectomy Hx Other Medical tubal ligation Hx Other Medical knee repair yissel sahra Osteoporosis H/O right knee surgery 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 MDS (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 syndrome) (HCC) Closed fracture of distal en d of humerus 09/29/2021 Closed fracture of fifth met atarsal bone 10/06/2021 Covid-19 01/21/2020 Pneumonia 01/21/2020 Tear of medial meniscus of l eft knee, current 06/06/2018 Added automatically from [facility] for surgery [id number] PONV (postoperative nausea a nd vomiting) Anxiety MDS (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 syndrome) (HCC) MDS (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 syndrome) (HCC) MDS (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 syndrome) (HCC) Family History Medical History Relation Name Comments Heart disease Neg Hx Hypertension Neg Hx Social History Tobacco Use Types Packs/Day Years [...] on file Legal Sex Female 1:43 AM FIRE SPRINKLER SERVICE TECHNICIAN Gender Identity Not on file Sexual Orientation Not on file Obstetrics History Last Filed Vital Signs Vital Sign Reading Time Taken Comments Blood Pressure 120/71 05/17/2024 3:20 PM FIRE SPRINKLER SERVICE TECHNICIAN Pulse 88 05/17/2024 3:20 PM FIRE SPRINKLER SERVICE TECHNICIAN Temperature 36.7 C (98 F) 05/17/2024 3:20 PM FIRE SPRINKLER SERVICE TECHNICIAN Respiratory Rate 16 05/17/2024 3:20 PM FIRE SPRINKLER SERVICE TECHNICIAN Oxygen Saturation 100% 05/17/2024 3:20 PM FIRE SPRINKLER SERVICE TECHNICIAN Inhaled Oxygen Concentration - - Weight 64.7 kg (142 lb 9.6 oz) 05/16/2024 10:44 AM FIRE SPRINKLER SERVICE TECHNICIAN Height 152.4 cm (5') 04/29/2024 8:59 AM FIRE SPRINKLER SERVICE TECHNICIAN Body Mass Index 27.85 04/29/2024 8:59 AM FIRE SPRINKLER SERVICE TECHNICIAN Plan of Treatment Health Maintenance Due Date Last Done Comments Depression Screening 1941 Osteoporosis Screening-Bone Density Scan 1941 Hepatitis B Screening 1959 Well Visit 65+ 2006 Covid-19 Vaccine (2023-2 5 season) 2023 01/23/2022, 09/24/2021, 02/01/2021, Additional history exists Influenza Vaccine (#1) 2023 , 01/07/2022, 01/15/2021, Additional history exists Fall Risk Assessment 04/30/2025 04/30/2024, 04/29/2024, 12/19/2023, Additional history exists DTaP/Tdap/Td Vaccine (2 - Td or Tdap) 09/08/2029 09/09/2019 Pneumococcal vaccine 65+ Completed 021, 05/18/2016, 04/03/2016, Additional history exists Zoster Vaccine Completed 03/29/2022, 10/02, 04/03/2016 Medical Devices Implanted Type Area News Videotape Editor Device Identifier Shelf Expiration Date Model / Serial / Lot Emre Elysia Powerport Mri Airguard 8fr 1 Lumen Attachable Catheter Latex Free [id number] - [id number] Implanted:Qty: 1 on 11/20/2023 by Shade Red MD at [facility] Right: Chest Emre Chaparrita 09/30/2024 [id number] / / [id number] Procedures Procedure Name Priority Date/Time Associated Diagnosis Comments IMMATURE PLATELET FRACTION STAT 05/17/2024 1:20 PM FIRE SPRINKLER SERVICE TECHNICIAN MDS (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 syndrome) (HCC) DIFFERENTIAL AUTO STAT 05/17/2024 1:2 0 PM FIRE SPRINKLER SERVICE TECHNICIAN MDS (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 syndrome) (HCC) CBC WITH AUTO DIFFERENTIAL STAT 05/17/2024 1:20 PM FIRE SPRINKLER SERVICE TECHNICIAN MDS (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 syndrome) (HCC) PREPARE RBC Routine 05/16/2024 2:12 PM FIRE SPRINKLER SERVICE TECHNICIAN MDS (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 syndrome) (HCC) CROSSMATCH Routine 05/16/2024 10:45 AM FIRE SPRINKLER SERVICE TECHNICIAN MDS (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 syndrome) (HCC) ANTIBODY SCREEN Routine 05/16/2024 10:45 AM FIRE SPRINKLER SERVICE TECHNICIAN MDS (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 syndrome) (HCC) ABO/RH Routine 05/16/2024 10:45 AM FIRE SPRINKLER SERVICE TECHNICIAN MDS (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 syndrome) (HCC) TYPE AND SCREEN Routine 05/16/2024 10:45 AM FIRE SPRINKLER SERVICE TECHNICIAN MDS (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 syndrome) (HCC) MANUAL DIFFERENTIAL Routine 05/16/2024 1 0:45 AM FIRE SPRINKLER SERVICE TECHNICIAN MDS (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 syndrome) (HCC) CBC WITH AUTO DIFFERENTIAL Routine 05/16/2024 10:45 AM FIRE SPRINKLER SERVICE TECHNICIAN MDS (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 syndrome) (HCC) TRANSFUSE RED BLOOD CELLS Timed 05/10/2024 11:18 AM FIRE SPRINKLER SERVICE TECHNICIAN MDS (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 syndrome) (HCC) Anemia, unspecified type PREPARE RBC Routine 05/10/2024 11:07 AM FIRE SPRINKLER SERVICE TECHNICIAN PREPARE RBC Routine 05/10/2024 11:07 AM FIRE SPRINKLER SERVICE TECHNICIAN MDS (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 syndrome) (HCC) Anemia, unspecified type CROSSMATCH Routine 05/10/2024 10:00 AM FIRE SPRINKLER SERVICE TECHNICIAN MDS (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 syndrome) (HCC) Anemia, unspecified type ANTIBODY SCREEN Routine 05/10/2024 10:00 AM FIRE SPRINKLER SERVICE TECHNICIAN MDS (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 syndrome) (HCC) Anemia, unspecified type ABO/RH Routine 05/10/2024 10:00 AM FIRE SPRINKLER SERVICE TECHNICIAN MDS (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 syndrome) (HCC) Anemia, unspecified type TYPE AND SCREEN Routine 05/10/2024 10:00 AM FIRE SPRINKLER SERVICE TECHNICIAN MDS (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 syndrome) (HCC) Anemia, unspecified type DIFFERENTIAL AUTO Routine 05/10/2024 10: 00 AM FIRE SPRINKLER SERVICE TECHNICIAN MDS (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 syndrome) (HCC) CBC WITH AUTO DIFFERENTIAL Routine 05/10/2024 10:00 AM FIRE SPRINKLER SERVICE TECHNICIAN MDS (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 syndrome) (HCC) EGFR STAT 04/29/2024 8:50 AM FIRE SPRINKLER SERVICE TECHNICIAN MDS (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 syndrome) (HCC) DIFFERENTIAL AUTO STAT 04/29/2024 8:5 0 AM FIRE SPRINKLER SERVICE TECHNICIAN MDS (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 syndrome) (HCC) CBC WITH AUTO DIFFERENTIAL STAT 04/29/2024 8:50 AM FIRE SPRINKLER SERVICE TECHNICIAN MDS (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 syndrome) (HCC) COMPREHENSIVE METABOLIC PANEL STAT 04/29/2024 8:50 AM FIRE SPRINKLER SERVICE TECHNICIAN MDS (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 syndrome) (HCC) MANUAL DIFFERENTIAL Routine 04/18/2024 1 0:00 AM FIRE SPRINKLER SERVICE TECHNICIAN MDS (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 syndrome) (HCC) EGFR Routine 04/18/2024 10:00 AM FIRE SPRINKLER SERVICE TECHNICIAN MDS (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 syndrome) (HCC) CBC WITH AUTO DIFFERENTIAL Routine 04/18/2024 10:00 AM FIRE SPRINKLER SERVICE TECHNICIAN MDS (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 syndrome) (HCC) COMPREHENSIVE METABOLIC PANEL Routine 04/18/2024 10:00 AM FIRE SPRINKLER SERVICE TECHNICIAN MDS (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 syndrome) (HCC) PA ARTHROCENTESIS ASPIR&/INJ MAJOR JT/BURSA W/US Routine 04/17/2024 2:00 PM FIRE SPRINKLER SERVICE TECHNICIAN Primary osteoarthritis of right knee EGFR Routine 04/04/2024 10:35 AM FIRE SPRINKLER SERVICE TECHNICIAN MDS (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 syndrome) (HCC) DIFFERENTIAL AUTO Routine 04/04/2024 10: 35 AM FIRE SPRINKLER SERVICE TECHNICIAN MDS (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 syndrome) (HCC) COMPREHENSIVE METABOLIC PANEL Routine 04/04/2024 10:35 AM FIRE SPRINKLER SERVICE TECHNICIAN MDS (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 syndrome) (HCC) CBC WITH AUTO DIFFERENTIAL Routine 04/04/2024 10:35 AM FIRE SPRINKLER SERVICE TECHNICIAN MDS (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 syndrome) (HCC) DIFFERENTIAL AUTO Routine 03/21/2024 10: 40 AM FIRE SPRINKLER SERVICE TECHNICIAN MDS (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 syndrome) (HCC) CBC WITH AUTO DIFFERENTIAL Routine 03/21/2024 10:40 AM FIRE SPRINKLER SERVICE TECHNICIAN MDS (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 syndrome) (HCC) EGFR Routine 03/07/2024 9:45 AM FIRE SPRINKLER SERVICE TECHNICIAN MDS (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 syndrome) (HCC) COMPREHENSIVE METABOLIC PANEL Routine 03/07/2024 9:45 AM FIRE SPRINKLER SERVICE TECHNICIAN MDS (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 syndrome) (HCC) DIFFERENTIAL AUTO Routine 03/07/2024 8:4 5 AM FIRE SPRINKLER SERVICE TECHNICIAN MDS (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 syndrome) (HCC) CBC WITH AUTO DIFFERENTIAL Routine 03/07/2024 8:45 AM FIRE SPRINKLER SERVICE TECHNICIAN MDS (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 syndrome) (HCC) EGFR Routine 02/22/2024 8:10 AM FIRE SPRINKLER SERVICE TECHNICIAN TSH Routine 02/22/2024 8:10 AM FIRE SPRINKLER SERVICE TECHNICIAN COMPREHENSIVE METABOLIC PANEL Routine 02/22/2024 8:10 AM FIRE SPRINKLER SERVICE TECHNICIAN EGFR Routine 02/22/2024 8:10 AM FIRE SPRINKLER SERVICE TECHNICIAN MDS (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 syndrome) (HCC) DIFFERENTIAL AUTO Routine 02/22/2024 8:1 0 AM FIRE SPRINKLER SERVICE TECHNICIAN MDS (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 syndrome) (HCC) COMPREHENSIVE METABOLIC PANEL Routine 02/22/2024 8:10 AM FIRE SPRINKLER SERVICE TECHNICIAN MDS (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 syndrome) (HCC) CBC WITH AUTO DIFFERENTIAL Routine 02/22/2024 8:10 AM FIRE SPRINKLER SERVICE TECHNICIAN MDS (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 syndrome) (HCC) TRANSFUSE RED BLOOD CELLS Timed MDS (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 syndrome) (HCC) from Last 3 Months Results * Immature platelet fraction (05/17/2024 1:20 PM FIRE SPRINKLER SERVICE TECHNICIAN) [facility] IPF 9.7 1.6 - 10.1 % Comment:Testing performed by : [place], [address] Blood 05/17/2024 1:20 PM FIRE SPRINKLER SERVICE TECHNICIAN 05/17/2024 1:36 PM FIRE SPRINKLER SERVICE TECHNICIAN us Milla Armenta PRACTICAL NURSE CLINICAL COORDINATOR LAB BLOOD ORDERABLES Final Result [facility] ([place]) [address] [place] [address] Department [place] [address] * (ABNORMAL) Differential, auto (05/17/2024 1:20 PM FIRE SPRINKLER SERVICE TECHNICIAN) [facility] Neutrophil abs 0.0(L) 1.5 - 6.5 K/cumm Comment:Testing performed by : [place], [address] Imm gran abs 0.0 0.0 - 0.1 K/cumm [facility] ([place]) Comment:Testing performed by : [place], [address] Lymphocyte abs 0.8 0.8 - 3.3 K/cumm [facility] ([place]) Comment:Testing performed by : [place], [address] Monocyte abs 0.0(L) 0.2 - 0.8 K/cumm [facility] ([place]) Comment:Testing performed by : [facility], [place], [address] Eosinophil abs 0.0 0.0 - 0.5 K/cumm [facility] ([place]) Comment:Testing performed by : [facility], [facility], [place], [address] Basophil abs 0.0 0.0 - 0.1 K/cumm [facility] ([place]) Comment:Testing performed by : [place], [address] Neutrophil pct 3.7 % [facility] ([place]) Comment: Interpretive Data Percent cell count reference ranges are not reported, since discordance with absolute values may lead to misinterpretation of CBC data. Current Interpretive Data was last revised on 2017. Testing performed by: [place], [address] Imm gran pct 0.0 % [facility] ([place]) Comment: Interpretive Data Percent cell count reference ranges are not reported, since discordance with absolute values may lead to misinterpretation of CBC data. Current Interpretive Data was last revised on 2017. Testing performed by: [place], [address] Lymphocyte pct 96.3 % [facility] ([place]) Comment: Interpretive Data Percent cell count reference ranges are not reported, since discordance with absolute values may lead to misinterpretation of CBC data. Current Interpretive Data was last revised on 2017. Testing performed by: [place], [address] Monocyte pct 0.0 % [facility] ([place]) Comment: Interpretive Data Percent cell count reference ranges are not reported, since discordance with absolute values may lead to misinterpretation of CBC data. Current Interpretive Data was last revised on 2017. Testing performed by: [place], [address] Eosinophil pct 0.0 % [facility] ([place]) Comment: Interpretive Data Percent cell count reference ranges are not reported, since discordance with absolute values may lead to misinterpretation of CBC data. Current Interpretive Data was last revised on 2017. Testing performed by: [facility] [place], [address] Basophil pct 0.0 % [facility] ([place]) Comment: Interpretive Data Percent cell count reference ranges are not reported, since discordance with absolute values may lead to misinterpretation of CBC data. Current Interpretive Data was last revised on 2017. Testing performed by: [facility], [place], [address] Blood 05/17/2024 1:20 PM FIRE SPRINKLER SERVICE TECHNICIAN 05/17/2024 1:36 PM FIRE SPRINKLER SERVICE TECHNICIAN us Milla Armenta PRACTICAL NURSE CLINICAL COORDINATOR LAB BLOOD ORDERABLES Final Result [facility] ([place]) [address] [place] [address] Department [place] [address] * (ABNORMAL) CBC with auto differential (05/17/2024 1:20 PM FIRE SPRINKLER SERVICE TECHNICIAN) WBC 0.8(C) 3.8 - 9.9 K/cumm Comment: Critical result called to and read back by KAREN ST on 05 17 2024 at 1349 to Stacey Samson. Testing performed by: [place], [address] Hgb 7.0(L) 11.9 - 15.5 g/dL [facility] ([place]) Comment:Testing performed by : [place], [address] Hct 20.4(L) 35.6 - 45.5 % [facility] ([place]) Comment:Testing performed by : [place], [address] Plt 13(C) 150 - 400 K/cumm [facility] ([place]) Comment: Critical result called to and read back by KAREN ST on 05 17 2024 at 1349 to Stacey Samson. Testing performed by: [place], [address] MPV 10.8 9.1 - 12.3 fL [facility] ([place]) Comment:Testing performed by : [place], [address] RBC 1.97(L) 3.90 - 5.20 M/cumm [facility] ([place]) Comment:Testing performed by : [facility], [place], [place], MCV 103.6(H) 81.3 - 96.4 fL [facility] ([place]) Comment:Testing performed by : [facility], [place], [place], MCH 35.5(H) 27.1 - 33.3 pg [facility] ([place]) Comment:Testing performed by : [facility], [place], [place], MCHC 34.3 32.3 - 35.7 g/dL [facility] ([place]) Comment:Testing performed by : [place], [place], RDW CV 13.9 11.1 - 14.9 % [facility] ([place]) Comment:Testing performed by : [facility], [place], [place], RDW SD 51.5(H) 35.7 - 48.1 fL [facility] ([place]) Comment:Testing performed by : [facility], [place], [place], NRBC abs 0.00 0.00 - 0.01 K/cumm [facility] ([place]) Comment:Testing performed by : [place], [place], Blood 05/17/2024 1:20 PM FIRE SPRINKLER SERVICE TECHNICIAN 05/17/2024 1:36 PM FIRE SPRINKLER SERVICE TECHNICIAN Milla Armenta PRACTICAL NURSE CLINICAL COORDINATOR LAB BLOOD ORDERABLES Final Result [facility] ([place]) [address] [place] [address] Department [place] [address] * Prepare RBC: 1 Units (05/16/2024 2:12 PM FIRE SPRINKLER SERVICE TECHNICIAN) Units requested 1 Comment:Testing performed by : [facility], [place], [address] Units requested Ready [facility] ([place]) Comment:Testing performed by : [facility], [place], [address] Unit Number [id number] Product code [id number] [facility] ([place]) Blood Expiration Date [id number] [facility] ([place]) Product Blood Type (for scanning) 5100 [facility] ([place]) Product Blood Type OPOS [facility] ([place]) Dispense Status DISPENSED [facility] ([place]) Blood 05/16/2024 2:12 PM FIRE SPRINKLER SERVICE TECHNICIAN 05/16/2024 2:12 PM FIRE SPRINKLER SERVICE TECHNICIAN us Chalino Chapa MD BLOOD BANK PRODUCT ORDERA BLES Final Result [facility] ([place]) 1 [facility] Department of Laboratories [place] [id number] * (ABNORMAL) CBC with auto differential (05/16/2024 10:45 AM FIRE SPRINKLER SERVICE TECHNICIAN) WBC 0.8(C) 3.8 - 9.9 K/cumm Comment: Critical result called to and read back by YADI JOHNSON RN on 05 16 2024 at 1151 to Mariela Desir. Testing performed by: [place], [address] Hgb 7.5(L) 11.9 - 15.5 g/dL [facility] ([place]) Comment:Testing performed by : [place], [address] Hct 21.9(L) 35.6 - 45.5 % [facility] ([place]) Comment:Testing performed by : [place], [address] Plt 13(C) 150 - 400 K/cumm [facility] ([place]) Comment: Critical result called to and read back by YADI JOHNSON RN on 05 16 2024 at 1151 to Mariela Desir. Testing performed by: [place], [address] MPV 13.5(H) 9.1 - 12.3 fL [facility] ([place]) Comment:Testing performed by : [place], [address] RBC 2.07(L) 3.90 - 5.20 M/cumm [facility] ([place]) Comment:Testing performed by : [facility], [place], [address] MCV 105.8(H) 81.3 - 96.4 fL [facility] ([place]) Comment:Testing performed by : [facility], [place], [address] MCH 36.2(H) 27.1 - 33.3 pg [facility] ([place]) Comment:Testing performed by : [facility], [facility], [place], [address] MCHC 34.2 32.3 - 35.7 g/dL [facility] ([place]) Comment:Testing performed by : [place], [address] RDW CV 13.7 11.1 - 14.9 % [facility] ([place]) Comment:Testing performed by : [facility], [place], [address] RDW SD 51.8(H) 35.7 - 48.1 fL [facility] ([place]) Comment:Testing performed by : [facility], [place], [address] NRBC abs 0.00 0.00 - 0.01 K/cumm [facility] ([place]) Comment:Testing performed by : [facility], [place], [address] Blood 05/16/2024 10:4 5 AM FIRE SPRINKLER SERVICE TECHNICIAN 05/16/2024 10:48 AM FIRE SPRINKLER SERVICE TECHNICIAN us Chalino Chapa MD LAB BLOOD ORDERABLES Aylin l Result [facility] ([place]) [facility] Department [place] [address] * ABO/Rh (05/16/2024 10:45 AM FIRE SPRINKLER SERVICE TECHNICIAN) ABO/Rh O Positive Comment:Testing performed by : [facility], [place], [address] Blood 05/16/2024 10:4 5 AM FIRE SPRINKLER SERVICE TECHNICIAN 05/16/2024 12:56 PM FIRE SPRINKLER SERVICE TECHNICIAN Narrative [facility] ([place]) - 05/16/2024 1:39 PM FIRE SPRINKLER SERVICE TECHNICIAN witness [id number] Has the patient had Daratumumab or Isatuximab in the past 6 months?->Unknown Chalino Chapa MD LAB BLOOD BANK TEST ORDER LAITH Final Result [facility] ([place]) 1 [facility] Department [place] [address] * (ABNORMAL) Manual Differential (05/16/2024 10:45 AM FIRE SPRINKLER SERVICE TECHNICIAN) Differential Manual Comment:Testing performed by : [place], [address] Cells Counted 100 [facility] ([place]) Comment:Testing performed by : [place], [address] Neutrophil abs 0.0(L) 1.5 - 6.5 K/cumm [facility] ([place]) Comment:Testing performed by : [place], [address] Imm gran abs 0.0 0.0 - 0.1 K/cumm [facility] ([place]) Comment:Testing performed by : [place], [address] Lymphocyte abs 0.8 0.8 - 3.3 K/cumm [facility] ([place]) Comment:Testing performed by : [place], [address] Monocyte abs 0.0(L) 0.2 - 0.8 K/cumm [facility] ([place]) Comment:Testing performed by : [place], [address] Eosinophil abs 0.0 0.0 - 0.5 K/cumm [facility] ([place]) Comment:Testing performed by : [place], [address] Neutrophil pct 3.0 % [facility] ([place]) Comment: Interpretive Data Percent cell count reference ranges are not reported, since discordance with absolute values may lead to misinterpretation of CBC data. Current Interpretive Data was last revised on 2017. Testing performed by: [place], [address] Lymphocyte pct 62.0 % [facility] ([place]) Comment: Interpretive Data Percent cell count reference ranges are not reported, since discordance with absolute values may lead to misinterpretation of CBC data. Current Interpretive Data was last revised on 2017. Testing performed by: [facility], [facility], [place], [address] Eosinophil pct 1.0 % [facility] ([place]) Comment: Interpretive Data Percent cell count reference ranges are not reported, since discordance with absolute values may lead to misinterpretation of CBC data. Current Interpretive Data was last revised on 2017. Testing performed by: [facility], [facility], [place], [address] Variant lymph pct 34.0(H) 0.0 - 0.0 % [facility] ([place]) Comment:Testing performed by : [facility], [facility], [place], [address] RBC morphology Consistent with RBC Indicies [facility] ([place]) Comment:Testing performed by : [facility], [facility], [place], [address] Anisocytosis Slight(A) [facility] ([place]) Comment:Testing performed by : [facility], [facility], [place], [address] Platelet estimate Decreased(A) [facility] ([place]) Comment:Testing performed by : [facility], [facility], [place], [address] Blood 05/16/2024 10:4 5 AM FIRE SPRINKLER SERVICE TECHNICIAN 05/16/2024 11:00 AM FIRE SPRINKLER SERVICE TECHNICIAN us Chalino Chapa MD LAB BLOOD ORDERABLES Aylin l Result [facility] ([place]) 1 [facility] Department [place] [address] * Crossmatch (05/16/2024 10:45 AM FIRE SPRINKLER SERVICE TECHNICIAN) Crossmatch Compatible [facility]RA PAR[facility] ([place]) Unit number for crossmatch [id number] [facility] ([place]) Blood 05/16/2024 10:4 5 AM FIRE SPRINKLER SERVICE TECHNICIAN 05/16/2024 12:56 PM FIRE SPRINKLER SERVICE TECHNICIAN Chalino Chapa MD LAB BLOOD BANK TEST ORDER LAITH Final Result [facility] ([place]) 1 [facility] Department [place] [address] * Antibody screen (05/16/2024 10:45 AM FIRE SPRINKLER SERVICE TECHNICIAN) Rivera, indirect, Gel Interpretation Negative ABSC Comment:Testing performed by : [facility], [place], [address] Blood 05/16/2024 10:4 5 AM FIRE SPRINKLER SERVICE TECHNICIAN 05/16/2024 12:56 PM FIRE SPRINKLER SERVICE TECHNICIAN Narrative [facility] ([place]) - 05/16/2024 1:40 PM FIRE SPRINKLER SERVICE TECHNICIAN Has the patient had Daratumumab or Isatuximab in the past 6 months?->Unknown Chalino Chapa MD LAB BLOOD BANK TEST ORDER LAITH Final Result Performing Organization Address City/[facility]/ZIP Co de Phone Number [facility] ([place]) 1 [facility] [place] [address] * Transfuse RBC (05/10/2024 1:03 PM FIRE SPRINKLER SERVICE TECHNICIAN) Blood Chalino Chapa MD BLOOD TRANSFUSION ORDERAB LES Final Result * Prepare RBC (05/10/2024 11:07 AM FIRE SPRINKLER SERVICE TECHNICIAN) Unit Number [id number] Product code [id number] [facility] ([place]) Blood Expiration Date [id number] [facility] ([place]) Product Blood Type (for scanning) 5100 [facility] ([place]) Product Blood Type OPOS [facility] ([place]) Dispense Status DISPENSED [facility] ([place]) Michael Terry MD BLOOD BANK PRODUCT ORDERABLES Final Result [facility] ([place]) [address] [place] [address] Department [place] [address] * Prepare RBC: 1 Units (05/10/2024 11:07 AM FIRE SPRINKLER SERVICE TECHNICIAN) Units requested 1 Comment:Testing performed by : [facility], [facility], [place], [address] Units requested Ready EMMY ROGERS ([place]) Comment:Testing performed by : [facility], [place], [address] Blood 05/10/2024 11:0 7 AM FIRE SPRINKLER SERVICE TECHNICIAN 05/10/2024 11:07 AM FIRE SPRINKLER SERVICE TECHNICIAN Narrative [facility] ([place]) - 05/10/2024 11:07 AM FIRE SPRINKLER SERVICE TECHNICIAN Are special requirements needed? (All products are leukoreduced and CMV- safe)->No us Chalino Chapa MD BLOOD BANK PRODUCT ORDERA BLES Final Result [facility] ([place]) [address] [place] [address] Department [place] [address] * (ABNORMAL) Differential, auto (05/10/2024 10:00 AM FIRE SPRINKLER SERVICE TECHNICIAN) Pathologist [facility] [place] Neutrophil abs 0.4(L) 1.5 - 6.5 K/cumm Comment:Testing performed by : [place], [address] Imm gran abs 0.0 0.0 - 0.1 K/cumm [facility] ([place]) Comment:Testing performed by : [facility], [place], [address] Lymphocyte abs 0.7(L) 0.8 - 3.3 K/cumm [facility] ([place]) Comment:Testing performed by : [facility], [place], [address] Monocyte abs 0.0(L) 0.2 - 0.8 K/cumm [facility] ([place]) Comment:Testing performed by : [facility], [place], [address] Eosinophil abs 0.1 0.0 - 0.5 K/cumm [facility] ([place]) Comment:Testing performed by : [place], [address] Basophil abs 0.0 0.0 - 0.1 K/cumm [facility] ([place]) Comment:Testing performed by : [place], [address] Neutrophil pct 35.3 % [facility] ([place]) Comment: Interpretive Data Percent cell count reference ranges are not reported, since discordance with absolute values may lead to misinterpretation of CBC data. Current Interpretive Data was last revised on 2017. Testing performed by: [place], [address] Imm gran pct 0.9 % [facility] ([place]) Comment: Interpretive Data Percent cell count reference ranges are not reported, since discordance with absolute values may lead to misinterpretation of CBC data. Current Interpretive Data was last revised on 2017. Testing performed by: [place], [address] Lymphocyte pct 58.6 % [facility] ([place]) Comment: Interpretive Data Percent cell count reference ranges are not reported, since discordance with absolute values may lead to misinterpretation of CBC data. Current Interpretive Data was last revised on 2017. Testing performed by: [place], [address] Monocyte pct 0.9 % [facility] ([place]) Comment: Interpretive Data Percent cell count reference ranges are not reported, since discordance with absolute values may lead to misinterpretation of CBC data. Current Interpretive Data was last revised on 2017. Testing performed by: [place], [address] Eosinophil pct 4.3 % [facility] ([place]) Comment: Interpretive Data Percent cell count reference ranges are not reported, since discordance with absolute values may lead to misinterpretation of CBC data. Current Interpretive Data was last revised on 2017. Testing performed by: [place], [address] Basophil pct 0.0 % [facility] ([place]) Comment: Interpretive Data Percent cell count reference ranges are not reported, since discordance with absolute values may lead to misinterpretation of CBC data. Current Interpretive Data was last revised on 2017. Testing performed by: [place], [address] Blood 05/10/2024 10:0 0 AM FIRE SPRINKLER SERVICE TECHNICIAN 05/10/2024 10:01 AM FIRE SPRINKLER SERVICE TECHNICIAN us Chalino Chapa MD LAB BLOOD ORDERABLES Aylin freedman Result [facility] ([place]) [address] [place] [address] Department [place] [address] * (ABNORMAL) CBC with auto differential (05/10/2024 10:00 AM FIRE SPRINKLER SERVICE TECHNICIAN) WBC 1.2(L) 3.8 - 9.9 K/cumm Comment:Testing performed by : [place], [address] Hgb 7.0(L) 11.9 - 15.5 g/dL [facility] ([place]) Comment:Testing performed by : [place], [address] Hct 20.6(L) 35.6 - 45.5 % [facility] ([place]) Comment:Testing performed by : [place], [address] Plt 65(L) 150 - 400 K/cumm [facility] ([place]) Comment:Testing performed by : [place], [address] MPV 11.1 9.1 - 12.3 fL [facility] ([place]) Comment:Testing performed by : [place], [address] RBC 1.91(L) 3.90 - 5.20 M/cumm [facility] ([place]) Comment:Testing performed by : [place], [address] MCV 107.9(H) 81.3 - 96.4 fL [facility] ([place]) Comment:Testing performed by : [place], [address] MCH 36.6(H) 27.1 - 33.3 pg [facility] ([place]) Comment:Testing performed by : [place], [address] MCHC 34.0 32.3 - 35.7 g/dL [facility] ([place]) Comment:Testing performed by : [facility], [facility], [place], [address] RDW CV 14.4 11.1 - 14.9 % [facility] ([place]) Comment:Testing performed by : [facility], [facility], [place], [address] RDW SD 56.9(H) 35.7 - 48.1 fL [facility] ([place]) Comment:Testing performed by : [facility], [facility], [place], [address] NRBC abs Not Measured 0.00 - 0.01 K/cumm [facility] ([place]) Comment:Testing performed by : [facility], [facility], [place], [address] Blood 05/10/2024 10:0 0 AM FIRE SPRINKLER SERVICE TECHNICIAN 05/10/2024 10:01 AM FIRE SPRINKLER SERVICE TECHNICIAN us Chalino Chapa MD LAB BLOOD ORDERABLES Aylin l Result [facility] ([place]) 1 [facility] Department [place] [address] * ABO/Rh (05/10/2024 10:00 AM FIRE SPRINKLER SERVICE TECHNICIAN) ABO/Rh O Positive Comment:Testing performed by : [facility], [facility], [place], [address] Blood 05/10/2024 10:0 0 AM FIRE SPRINKLER SERVICE TECHNICIAN 05/10/2024 10:18 AM FIRE SPRINKLER SERVICE TECHNICIAN Narrative [facility] ([place]) - 05/10/2024 10:54 AM FIRE SPRINKLER SERVICE TECHNICIAN drawn by Ynes Jensen, witnessed by Karen Donaldson Has the patient had Daratumumab or Isatuximab in the past 6 months?->Unknown us Chalino Chapa MD LAB BLOOD BANK TEST ORDER LAITH Final Result Performing Organization Address City/[facility]/ZIP Co de Phone Number [facility] R[facility]ERS ([place]) 1 [facility] Department [place] [address] * Crossmatch (05/10/2024 10:00 AM FIRE SPRINKLER SERVICE TECHNICIAN) Crossmatch Compatible SABRA Silva ([place]) Unit number for crossmatch [id number] [facility] ([place]) Blood 05/10/2024 10:0 0 AM FIRE SPRINKLER SERVICE TECHNICIAN 05/10/2024 10:18 AM FIRE SPRINKLER SERVICE TECHNICIAN us Michael Terry MD LAB BLOOD BANK TEST ORDERABLE S Final Result [facility] ([place]) 1 [facility] Department [place] [address] * Antibody screen (05/10/2024 10:00 AM FIRE SPRINKLER SERVICE TECHNICIAN) Pathologist [facility] [place] Rivera, indirect, Gel Interpretation Negative ABSC Comment:Testing performed by : [facility], [place], [address] Blood 05/10/2024 10:0 0 AM FIRE SPRINKLER SERVICE TECHNICIAN 05/10/2024 10:18 AM FIRE SPRINKLER SERVICE TECHNICIAN Narrative [facility] ([place]) - 05/10/2024 10:54 AM FIRE SPRINKLER SERVICE TECHNICIAN Has the patient had Daratumumab or Isatuximab in the past 6 months?->Unknown us Chalino Chapa MD LAB BLOOD BANK TEST ORDER LAITH Final Result Performing Organization Address City/[facility] Co de Phone Number [facility] ([place]) 1 [facility] Department [place] [address] * eGFR (04/29/2024 8:50 AM FIRE SPRINKLER SERVICE TECHNICIAN) eGFR 90 >=60 mL/min/1. 73 m2 Comment: Interpretive Data Reference Interval Normal >/= 90 mL/min/1.73m2 Mildly decreased* 60 - 89 mL/min/1.73m2 Mildly to moderately decreased 45 - 59 mL/min/1.73m2 Moderately to severely decreased 30 - 44 mL/min/1.73m2 Severely decreased 15 - 29 mL/min/1.73m2 Kidney Failure < 15 mL/min/1.73m2 *Relative to young adult level Estimated glomerular filtration rate is determined by the 2021 CKD-EPI equation recommended by the National Kidney Foundation (A Unifying Approach to GFR Estimation: Recommendations of the NKF-ASK Task Force on Reassessing the Inclusion of Race in Diagnosing Kidney Disease, JASN 2020). The CKD-EPI equation should not be used for patients with unstable renal function and has not been validated in children and those over 70. Current interpretive data was last reviewed 2021. Testing performed by: [facility], [facility], [place], [address] Blood 04/29/2024 8:50 AM FIRE SPRINKLER SERVICE TECHNICIAN 04/29/2024 9:03 AM FIRE SPRINKLER SERVICE TECHNICIAN us Zoraida Villegas NP LAB BLOOD ORDERABLES Final Result [facility] ([place]) 1 [facility] Department [place] [address] * (ABNORMAL) Differential, auto (04/29/2024 8:50 AM FIRE SPRINKLER SERVICE TECHNICIAN) Neutrophil abs 1.2(L) 1.5 - 6.5 K/cumm Comment:Testing performed by : [facility] [address], Medical Office [facility] [address], [place] [address] Imm gran abs 0.0 0.0 - 0.1 K/cumm [facility] ([place]) Comment:Testing performed by : [facility] [address], Medical Office [facility] [address], [place] [address] Lymphocyte abs 1.0 0.8 - 3.3 K/cumm [facility] ([place]) Comment:Testing performed by : [facility] [address], Medical Office [facility] [address], [place] [address] Monocyte abs 0.3 0.2 - 0.8 K/cumm [facility] ([place]) Comment:Testing performed by : [facility] [address], Medical Office [facility] [address], [place] [address] Eosinophil abs 0.1 0.0 - 0.5 K/cumm [facility] ([place]) Comment:Testing performed by : [facility] [address], Medical Office [facility] [address], [place] [address] Basophil abs 0.0 0.0 - 0.1 K/cumm [facility] ([place]) Comment:Testing performed by : [facility] [address], Medical Office [facility] [address], [place] [address] Neutrophil pct 44.9 % [facility] ([place]) Comment: Interpretive Data Percent cell count reference ranges are not reported, since discordance with absolute values may lead to misinterpretation of CBC data. Current Interpretive Data was last revised on 2022. Testing performed by: [facility] [address], Medical Office [facility] [address], [place] [address] Imm gran pct 0.7 % [facility] ([place]) Comment: Interpretive Data Percent cell count reference ranges are not reported, since discordance with absolute values may lead to misinterpretation of CBC data. Current Interpretive Data was last revised on 2022. Testing performed by: [facility] [address], Medical Office [facility] [address], [place] [address] Lymphocyte pct 38.4 % [facility] ([place]) Comment: Interpretive Data Percent cell count reference ranges are not reported, since discordance with absolute values may lead to misinterpretation of CBC data. Current Interpretive Data was last revised on 2022. Testing performed by: [facility] [address], Medical Office [facility] [address], [place] [address] Monocyte pct 11.9 % [facility] ([place]) Comment: Interpretive Data Percent cell count reference ranges are not reported, since discordance with absolute values may lead to misinterpretation of CBC data. Current Interpretive Data was last revised on 2022. Testing performed by: [facility] [address], Medical Office [facility] [address], [place] [address] Eosinophil pct 3.0 % [facility] ([place]) Comment: Interpretive Data Percent cell count reference ranges are not reported, since discordance with absolute values may lead to misinterpretation of CBC data. Current Interpretive Data was last revised on 2022. Testing performed by: [facility] [address], Medical Office [facility] [address], [place] [address] Basophil pct 1.1 % [facility] ([place]) Comment: Interpretive Data Percent cell count reference ranges are not reported, since discordance with absolute values may lead to misinterpretation of CBC data. Current Interpretive Data was last revised on 2022. Testing performed by: [facility] [address], Medical Office [facility] [address], [place] [address] Blood 04/29/2024 8:50 AM FIRE SPRINKLER SERVICE TECHNICIAN 04/29/2024 8:53 AM FIRE SPRINKLER SERVICE TECHNICIAN Zoraida Villegas PRACTICAL NURSE CLINICAL COORDINATOR LAB BLOOD ORDERABLES Final Result [facility] ROGERS ([place]) [address] [facility] Department [place] [address] * (ABNORMAL) CBC with auto differential (04/29/2024 8:50 AM FIRE SPRINKLER SERVICE TECHNICIAN) WBC 2.7(L) 3.8 - 9.9 K/cumm Comment:Testing performed by : [facility] [address], Medical Office [facility] [address], [place] [address] Hgb 10.2(L) 11.9 - 15.5 g/dL [facility] ROGERS ([place]) Comment:Testing performed by : [facility] [address], Medical Office [facility] [address], [place] [address] Hct 31.2(L) 35.6 - 45.5 % [facility] ([place]) Comment:Testing performed by : [facility] [address], Medical Office [facility] [address], [place] [address] Plt 163 150 - 400 K/cumm [facility] ROG[facility] ([place]) Comment:Testing performed by : [facility] [address], Medical Office [facility] [address], [place] [address] MPV 10.5 9.1 - 12.3 fL [facility] ROGERS ([place]) Comment:Testing performed by : [facility] [address], Medical Office [facility] [address], [place] [address] RBC 2.87(L) 3.90 - 5.20 M/cumm [facility] ROG[facility] ([place]) Comment:Testing performed by : [facility] [address], Medical Office [facility] [address], [place] [address] MCV 108.7(H) 81.3 - 96.4 fL [facility] ([place]) Comment:Testing performed by : [facility] [address], Medical Office [facility] [address], [place] [address] MCH 35.5(H) 27.1 - 33.3 pg [facility] ([place]) Comment:Testing performed by : [facility] [address], Medical Office [facility] [address], [place] [address] MCHC 32.7 32.3 - 35.7 g/dL [facility] ([place]) Comment:Testing performed by : [facility] [address], Medical Office [facility] [address], [place] [address] RDW CV 15.5(H) 11.1 - 14.9 % [facility] ([place]) Comment:Testing performed by : [facility] [address], Medical Office [facility] [address], [place] [address] RDW SD 62.1(H) 35.7 - 48.1 fL [facility] ([place]) Comment:Testing performed by : [facility] [address], Medical Office [facility] [address], [place] [address] NRBC abs Not Measured 0.00 - 0.01 K/cumm [facility] ([place]) Comment:Testing performed by : [facility] [address], Medical Office [facility] [address], [place] [address] Blood 04/29/2024 8:50 AM FIRE SPRINKLER SERVICE TECHNICIAN 04/29/2024 8:53 AM FIRE SPRINKLER SERVICE TECHNICIAN Zoraida Villegas PRACTICAL NURSE CLINICAL COORDINATOR LAB BLOOD ORDERABLES Final Result [facility] ([place]) 1 [facility] [place] [address] * (ABNORMAL) Comprehensive metabolic panel (04/29/2024 8:50 AM FIRE SPRINKLER SERVICE TECHNICIAN) Sodium 141 135 - 145 mmol/L Comment:Testing performed by : [facility], [facility], [place], [address] Potassium, pl 4.0 3.3 - 4.9 mmol/L [facility] ([place]) Comment:Testing performed by : [facility], [facility], [place], [address] Chloride 102 97 - 110 mmol/L [facility] ([place]) Comment:Testing performed by : [facility], [facility], [place], [address] CO2 31 22 - 32 mmol/L [facility] ([place]) Comment:Testing performed by : [facility], [place], [address] Anion gap 7 2 - 15 mmol/L [facility] ([place]) Comment:Testing performed by : [facility], [facility], [place], [address] BUN 14 6 - 25 mg/dL [facility] ([place]) Comment:Testing performed by : [facility], [facility], [place], [address] Creatinine 0.57(L) 0.60 - 1.10 mg/dL [facility] ([place]) Comment:Testing performed by : [facility], [facility], [place], [address] Glucose 109 70 - 199 mg/dL [facility] ([place]) Comment: Interpretive Data Fasting glucose >/= 126 mg/dl is diagnostic for diabetes. Fasting is defined as no caloric intake for at least 8 hours. Fasting glucose between 100 mg/dl to 125 mg/dl is diagnostic of prediabetes. In a patient with classic symptoms of hyperglycemia or hyperglycemic crisis, a random glucose >/= 200 mg/dl is diagnostic for diabetes. In the absence of unequivocal hyperglycemia, results should be confirmed by repeat testing. The classification and Diagnosis of Diabetes Diabetes Care 2021; 46: S19-S40. Current interpretive data was last revised 2022. Testing performed by: [facility], [place], [address] Calcium 9.7 8.5 - 10.3 mg/dL [facility] ([place]) Comment:Testing performed by : [facility], [place], [address] Bilirubin, total 0.7 0.1 - 1.2 mg/dL [facility] ([place]) Comment:Testing performed by : [facility], [place], [address] Protein, pl 6.7 6.5 - 8.5 g/dL [facility] ([place]) Comment:Testing performed by : [place], [address] Albumin 4.5 3.5 - 5.0 g/dL [facility] ([place]) Comment:Testing performed by : [facility], [place], [address] Alk phos 121 40 - 130 Units/L [facility] ([place]) Comment:Testing performed by : [facility], [facility], [place], [address] ALT 61(H) 7 - 45 Units/L [facility] ([place]) Comment:Testing performed by : [facility], [place], [address] AST 28 10 - 45 Units/L [facility] ([place]) Comment:Testing performed by : [facility], [place], [address] Blood 04/29/2024 8:50 AM FIRE SPRINKLER SERVICE TECHNICIAN 04/29/2024 9:03 AM FIRE SPRINKLER SERVICE TECHNICIAN Zoraida Villegas PRACTICAL NURSE CLINICAL COORDINATOR LAB BLOOD ORDERABLES Final Result [facility] ([place]) 1 [facility] [place] [address] * eGFR (04/18/2024 10:00 AM FIRE SPRINKLER SERVICE TECHNICIAN) eGFR >90 >=60 mL/min/1. 73 m2 Comment: Interpretive Data Reference Interval Normal >/= 90 mL/min/1.73m2 Mildly decreased* 60 - 89 mL/min/1.73m2 Mildly to moderately decreased 45 - 59 mL/min/1.73m2 Moderately to severely decreased 30 - 44 mL/min/1.73m2 Severely decreased 15 - 29 mL/min/1.73m2 Kidney Failure < 15 mL/min/1.73m2 *Relative to young adult level Estimated glomerular filtration rate is determined by the 2020 CKD-EPI equation recommended by the National Kidney Foundation (A Unifying Approach to GFR Estimation: Recommendations of the NKF-ASK Task Force on Reassessing the Inclusion of Race in Diagnosing Kidney Disease, JASN 2020). The CKD-EPI equation should not be used for patients with unstable renal function and has not been validated in children and those over 70. Current interpretive data was last reviewed 2021. Testing performed by: [facility], [facility], [place], [address] Blood 04/18/2024 10:0 0 AM FIRE SPRINKLER SERVICE TECHNICIAN 04/18/2024 10:47 AM FIRE SPRINKLER SERVICE TECHNICIAN us Chalino Chapa MD LAB BLOOD ORDERABLES Aylin freedman Result [facility] ([place]) 1 [facility] [place] [address] * (ABNORMAL) CBC with auto differential (04/18/2024 10:00 AM FIRE SPRINKLER SERVICE TECHNICIAN) WBC 3.7(L) 3.8 - 9.9 K/cumm Comment:Testing performed by : [facility] [address], Medical Office [facility] [address], [place] [address] Hgb 10.7(L) 11.9 - 15.5 g/dL [facility] ([place]) Comment:Testing performed by : [facility] [address], Medical Office [facility] [address], [place] [address] Hct 32.8(L) 35.6 - 45.5 % [facility] ([place]) Comment:Testing performed by : [facility] [address], Medical Office [facility] [address], [place] [address] Plt 171 150 - 400 K/cumm [facility] ([place]) Comment:Testing performed by : [facility] [address], Medical Office [facility] [address], [place] [address] MPV 10.5 9.1 - 12.3 fL [facility] ([place]) Comment:Testing performed by : [facility] [address], Medical Office [facility] [address], [place] [address] RBC 3.06(L) 3.90 - 5.20 M/cumm [facility] ([place]) Comment:Testing performed by : [facility] [address], Medical Office [facility] [address], [place] [address] MCV 107.2(H) 81.3 - 96.4 fL [facility] ([place]) Comment:Testing performed by : [facility] [address], Medical Office [facility] [address], [place] [address] MCH 35.0(H) 27.1 - 33.3 pg [facility] ([place]) Comment:Testing performed by : [facility] [address], Medical Office [facility] [address], [place] [address] MCHC 32.6 32.3 - 35.7 g/dL [facility] ([place]) Comment:Testing performed by : [facility] [address], Medical Office [facility] [address], [place] [address] RDW CV 14.6 11.1 - 14.9 % [facility] ([place]) Comment:Testing performed by : [facility] [address], Medical Office [facility] [address], [place] [address] RDW SD 57.7(H) 35.7 - 48.1 fL [facility] ([place]) Comment:Testing performed by : [facility] [address], Medical Office [facility] [address], [place] [address] NRBC abs Not Measured 0.00 - 0.01 K/cumm [facility] ([place]) Comment:Testing performed by : [facility] [address], Medical Office [facility] [address], [place] [address] Blood 04/18/2024 10:0 0 AM FIRE SPRINKLER SERVICE TECHNICIAN 04/18/2024 10:03 AM FIRE SPRINKLER SERVICE TECHNICIAN us Chalino Chapa MD LAB BLOOD ORDERABLES Aylin l Result [facility] ([place]) 1 [facility] [place] [address] * (ABNORMAL) Manual Differential (04/18/2024 10:00 AM FIRE SPRINKLER SERVICE TECHNICIAN) Differential Manual Comment:Testing performed by : [facility], [facility], [place], [address] Cells Counted 100 [facility] ([place]) Comment:Testing performed by : [facility], [facility], [place], [address] Neutrophil abs 2.1 1.5 - 6.5 K/cumm [facility] ([place]) Comment:Testing performed by : [facility], [facility], [place], [address] Imm gran abs 0.0 0.0 - 0.1 K/cumm [facility] ([place]) Comment:Testing performed by : [facility], [facility], [place], [address] Lymphocyte abs 1.6 0.8 - 3.3 K/cumm [facility] ([place]) Comment:Testing performed by : [facility], [facility], [place], [address] Monocyte abs 0.0(L) 0.2 - 0.8 K/cumm [facility] ([place]) Comment:Testing performed by : [facility], [facility], [place], [address] Neutrophil pct 55.0 % [facility] R [facility] ([place]) Comment: Interpretive Data Percent cell count reference ranges are not reported, since discordance with absolute values may lead to misinterpretation of CBC data. Current Interpretive Data was last revised on 2017. Testing performed by: [place], [address] Lymphocyte pct 38.0 % [facility] ([place]) Comment: Interpretive Data Percent cell count reference ranges are not reported, since discordance with absolute values may lead to misinterpretation of CBC data. Current Interpretive Data was last revised on 2017. Testing performed by: [place], [address] Monocyte pct 1.0 % [facility] ([place]) Comment: Interpretive Data Percent cell count reference ranges are not reported, since discordance with absolute values may lead to misinterpretation of CBC data. Current Interpretive Data was last revised on 2017. Testing performed by: [facility], [place], [address] Band Neutrophil pct 1.0 0.0 - 5.0 % [facility] ([place]) Comment:Testing performed by : [facility], [place], [address] Promyelocyte pct 1.0(H) 0.0 - 0.0 % [facility] ([place]) Comment:Testing performed by : [facility], [place], [address] Variant lymph pct 4.0(H) 0.0 - 0.0 % [facility] ([place]) Comment:Testing performed by : [facility], [place], [address] Blood 04/18/2024 10:0 0 AM FIRE SPRINKLER SERVICE TECHNICIAN 04/18/2024 10:47 AM FIRE SPRINKLER SERVICE TECHNICIAN us Chalino Chapa MD LAB BLOOD ORDERABLES Aylin freedman Result [facility] ([place]) 1 [facility] Department [place] [address] * (ABNORMAL) Comprehensive metabolic panel (04/18/2024 10:00 AM FIRE SPRINKLER SERVICE TECHNICIAN) Sodium 141 135 - 145 mmol/L Comment:Testing performed by : [facility], [place], [address] Potassium, pl 4.3 3.3 - 4.9 mmol/L [facility] ([place]) Comment:Testing performed by : [facility], [place], [address] Chloride 103 97 - 110 mmol/L [facility] ([place]) Comment:Testing performed by : [facility], [place], [address] CO2 31 22 - 32 mmol/L [facility] ([place]) Comment:Testing performed by : [facility], [place], [address] Anion gap 8 2 - 15 mmol/L [facility] ([place]) Comment:Testing performed by : [facility], [place], [address] BUN 15 6 - 25 mg/dL [facility] ([place]) Comment:Testing performed by : [facility], [place], [address] Creatinine 0.51(L) 0.60 - 1.10 mg/dL [facility] ([place]) Comment:Testing performed by : [facility], [place], [address] Glucose 141 70 - 199 mg/dL [facility] ([place]) Comment: Interpretive Data Fasting glucose >/= 126 mg/dl is diagnostic for diabetes. Fasting is defined as no caloric intake for at least 8 hours. Fasting glucose between 100 mg/dl to 125 mg/dl is diagnostic of prediabetes. In a patient with classic symptoms of hyperglycemia or hyperglycemic crisis, a random glucose >/= 200 mg/dl is diagnostic for diabetes. In the absence of unequivocal hyperglycemia, results should be confirmed by repeat testing. The classification and Diagnosis of Diabetes Diabetes Care 202; 46: S19-S40. Current interpretive data was last revised 2022. Testing performed by: [place], [address] Calcium 9.5 8.5 - 10.3 mg/dL [facility] ([place]) Comment:Testing performed by : [place], [address] Bilirubin, total 0.4 0.1 - 1.2 mg/dL [facility] ([place]) Comment:Testing performed by : [facility], [place], [address] Protein, pl 6.6 6.5 - 8.5 g/dL [facility] ([place]) Comment:Testing performed by : [facility], [place], [address] Albumin 4.2 3.5 - 5.0 g/dL [facility] ([place]) Comment:Testing performed by : [place], [address] Alk phos 118 40 - 130 Units/L [facility] ([place]) Comment:Testing performed by : [place], [address] ALT 88(H) 7 - 45 Units/L [facility] ([place]) Comment:Testing performed by : [facility], [place], [address] AST 35 10 - 45 Units/L [facility] ([place]) Comment:Testing performed by : [place], [address] Blood 04/18/2024 10:0 0 AM FIRE SPRINKLER SERVICE TECHNICIAN 04/18/2024 10:47 AM FIRE SPRINKLER SERVICE TECHNICIAN us Chalino Chapa MD LAB BLOOD ORDERABLES Aylin freedman Result [facility] [place] 1 [facility] Department [place] [address] * PA ARTHROCENTESIS ASPIR&/INJ MAJOR JT/BURSA W/US (04/17/2024 2:00 PM FIRE SPRINKLER SERVICE TECHNICIAN) Shadi Hatfield DO - 04/17/2024 2:00 PM FIRE SPRINKLER SERVICE TECHNICIAN Shadi Tan DO 04/17/2024 2:55 PM Large Joint Injection w/ Ultrasound Guidance: R knee Performed by: Shadi Tan DO Authorized by: Shadi Tan DO Large Joint Injection/Aspiration: Consent Given by: Patient Site marked: the procedure site was marked Timeout: prior to procedure the correct patient, procedure, and site was verified Verbal consent obtained: Yes Supporting Documentation: Indications: Pain Procedure Details: Location: Knee Site: R knee Prep: patient was prepped and draped in usual sterile fashion Prep: patient was prepped using a clean technique Needle Size: 22 G Approach: Lateral Ultrasound guided: Yes Fluroscopic guidance: No Ultrasound guidance used for: Real-time guidance Sterile ultrasond techniques: Sterile gel and sterile probe covers were used Ultrasound note: Ultrasound guided right knee injection Patient name: Venessa Villar Performing physician: AYAN Cifuentes DO, CAQSM Reason for procedure: Right osteoarthritis knee Patient is supine with the right knee in passive 30 of flexion. The lateral knee was sterilized using Hibiclens. The L4-12 T transducer was placed on the proximal portion of the knee identifying the suprapatellar recess and joint capsule in long axis. The probe was moved to short axis and again the joint capsule was identified. A 22 gauge 1.5 in needle was inserted on the lateral aspect of the knee at the level of the capsule, and the needle tip was identified in the subcutaneous tissue. The needle was advanced, in real time, to the capsule and once noted within the capsule, a substrate of 3ml of Durolane was injected into the joint capsule. Flow of fluid within the joint capsule was noted for confirmation of placement. Needle was removed, the area was cleansed, and covered with a Band-Aid. Impression: 1 - successful injection of the right knee capsule under ultrasound guidance Medications: 60 mg hyaluronate sodium, stabilized 60 mg/3 mL us Shadi Tan DO [facility] Edited Result - Final * eGFR (04/04/2024 10:35 AM FIRE SPRINKLER SERVICE TECHNICIAN) eGFR >90 >=60 mL/min/1. 73 m2 Comment: Interpretive Data Reference Interval Normal >/= 90 mL/min/1.73m2 Mildly decreased* 60 - 89 mL/min/1.73m2 Mildly to moderately decreased 45 - 59 mL/min/1.73m2 Moderately to severely decreased 30 - 44 mL/min/1.73m2 Severely decreased 15 - 29 mL/min/1.73m2 Kidney Failure < 15 mL/min/1.73m2 *Relative to young adult level Estimated glomerular filtration rate is determined by the 2020 CKD-EPI equation recommended by the National Kidney Foundation (A Unifying Approach to GFR Estimation: Recommendations of the NKF-ASK Task Force on Reassessing the Inclusion of Race in Diagnosing Kidney Disease, JASN 2020). The CKD-EPI equation should not be used for patients with unstable renal function and has not been validated in children and those over 70. Current interpretive data was last reviewed 2021. Testing performed by: [place], [address] Blood 04/04/2024 10:3 5 AM FIRE SPRINKLER SERVICE TECHNICIAN 04/04/2024 11:16 AM FIRE SPRINKLER SERVICE TECHNICIAN us Zoraida Villegas PRACTICAL NURSE CLINICAL COORDINATOR LAB BLOOD ORDERABLES Final Result [facility] ROGERS ([facility] 1 [facility] Department [place] [address] * Differential, auto (04/04/2024 10:35 AM FIRE SPRINKLER SERVICE TECHNICIAN) Neutrophil abs 1.6 1.5 - 6.5 K/cumm Comment:Testing performed by : [place], [address] Imm gran abs 0.0 0.0 - 0.1 K/cumm [facility] ([place]) Comment:Testing performed by : [place], [address] Lymphocyte abs 1.2 0.8 - 3.3 K/cumm [facility] ([place]) Comment:Testing performed by : [facility], [facility], [place], [address] Monocyte abs 0.3 0.2 - 0.8 K/cumm [facility] ([place]) Comment:Testing performed by : [facility], [facility], [place], [address] Eosinophil abs 0.1 0.0 - 0.5 K/cumm [facility] ([place]) Comment:Testing performed by : [facility], [facility], [place], [address] Basophil abs 0.0 0.0 - 0.1 K/cumm [facility] ([place]) Comment:Testing performed by : [facility], [facility], [place], [address] Neutrophil pct 50.0 % [facility] ([place]) Comment: Interpretive Data Percent cell count reference ranges are not reported, since discordance with absolute values may lead to misinterpretation of CBC data. Current Interpretive Data was last revised on 2017. Testing performed by: [facility], [facility], [place], [address] Imm gran pct 0.6 % [facility] ([place]) Comment: Interpretive Data Percent cell count reference ranges are not reported, since discordance with absolute values may lead to misinterpretation of CBC data. Current Interpretive Data was last revised on 2017. Testing performed by: [facility], [facility], [place], [address] Lymphocyte pct 36.4 % [facility] ([place]) Comment: Interpretive Data Percent cell count reference ranges are not reported, since discordance with absolute values may lead to misinterpretation of CBC data. Current Interpretive Data was last revised on 2017. Testing performed by: [facility], [place], [address] Monocyte pct 8.9 % [facility] ([place]) Comment: Interpretive Data Percent cell count reference ranges are not reported, since discordance with absolute values may lead to misinterpretation of CBC data. Current Interpretive Data was last revised on 2017. Testing performed by: [facility], [place], [address] Eosinophil pct 3.5 % [facility] ([place]) Comment: Interpretive Data Percent cell count reference ranges are not reported, since discordance with absolute values may lead to misinterpretation of CBC data. Current Interpretive Data was last revised on 2017. Testing performed by: [facility], [facility], [place], [address] Basophil pct 0.6 % [facility] ROG[facility] ([place]) Comment: Interpretive Data Percent cell count reference ranges are not reported, since discordance with absolute values may lead to misinterpretation of CBC data. Current Interpretive Data was last revised on 2017. Testing performed by: [facility], [facility], [place], [address] Blood 04/04/2024 10:3 5 AM FIRE SPRINKLER SERVICE TECHNICIAN 04/04/2024 10:40 AM FIRE SPRINKLER SERVICE TECHNICIAN Zoraida Villegas PRACTICAL NURSE CLINICAL COORDINATOR LAB BLOOD ORDERABLES Final Result [facility] ([place]) 1 [facility] [place] [address] * (ABNORMAL) CBC with auto differential (04/04/2024 10:35 AM FIRE SPRINKLER SERVICE TECHNICIAN) WBC 3.1(L) 3.8 - 9.9 K/cumm Comment:Testing performed by : [facility] [address], Medical Office [facility] [address], [place] [address] Hgb 11.2(L) 11.9 - 15.5 g/dL [facility] ([place]) Comment:Testing performed by : [facility] [address], Medical Office [facility] [address], [place] [address] Hct 34.6(L) 35.6 - 45.5 % [facility] ([place]) Comment:Testing performed by : [facility] [address], Medical Office [address], [place] [address] Plt 129(L) 150 - 400 K/cumm [facility] ([place]) Comment:Testing performed by : [facility] [address], Medical Office [facility] [address], [place] [address] MPV 9.0(L) 9.1 - 12.3 fL [facility] ([place]) Comment:Testing performed by : [facility] [address], Medical Office [facility] [address], [place] [address] RBC 3.24(L) 3.90 - 5.20 M/cumm [facility] ([place]) Comment:Testing performed by : [facility] [address], Medical Office [facility] [address], [place] [address] MCV 106.8(H) 81.3 - 96.4 fL [facility] ([place]) Comment:Testing performed by : [facility] [address], Medical Office [facility] [address], [place] [address] MCH 34.6(H) 27.1 - 33.3 pg [facility] ([place]) Comment:Testing performed by : [facility] [address], Medical Office [facility] [address], [place] [address] MCHC 32.4 32.3 - 35.7 g/dL [facility] ([place]) Comment:Testing performed by : [facility] [address], Medical Office [facility] [address], [place] [address] RDW CV 14.2 11.1 - 14.9 % [facility] ([place]) Comment:Testing performed by : [facility] [address], Medical Office [facility] [address], [place] [address] RDW SD 55.2(H) 35.7 - 48.1 fL [facility] ([place]) Comment:Testing performed by : [facility] [address], Medical Office [facility] [address], [place] [address] NRBC abs Not Measured 0.00 - 0.01 K/cumm [facility] ([place]) Comment:Testing performed by : [facility] [address], Medical Office [facility] [address], [place] [address] Blood 04/04/2024 10:3 5 AM FIRE SPRINKLER SERVICE TECHNICIAN 04/04/2024 10:40 AM FIRE SPRINKLER SERVICE TECHNICIAN Zoraida Villegas NP LAB BLOOD ORDERABLES Final Result [facility] ([place]) 1 [facility] [place] [address] * (ABNORMAL) Comprehensive metabolic panel (04/04/2024 10:35 AM FIRE SPRINKLER SERVICE TECHNICIAN) Sodium 142 135 - 145 mmol/L Comment:Testing performed by : [facility], [facility], [place], [address] Potassium, pl 3.8 3.3 - 4.9 mmol/L [facility] ([place]) Comment:Testing performed by : [facility], [place], [address] Chloride 103 97 - 110 mmol/L [facility] ([place]) Comment:Testing performed by : [facility], [place], [address] CO2 32 22 - 32 mmol/L [facility] ([place]) Comment:Testing performed by : [facility], [place], [address] Anion gap 8 2 - 15 mmol/L [facility] ([place]) Comment:Testing performed by : [facility], [place], [address] BUN 14 6 - 25 mg/dL [facility] ([place]) Comment:Testing performed by : [facility], [facility], [place], [address] Creatinine 0.46(L) 0.60 - 1.10 mg/dL [facility] ([place]) Comment:Testing performed by : [facility], [place], [address] Glucose 134 70 - 199 mg/dL [facility] ([place]) Comment: Interpretive Data Fasting glucose >/= 126 mg/dl is diagnostic for diabetes. Fasting is defined as no caloric intake for at least 8 hours. Fasting glucose between 100 mg/dl to 125 mg/dl is diagnostic of prediabetes. In a patient with classic symptoms of hyperglycemia or hyperglycemic crisis, a random glucose >/= 200 mg/dl is diagnostic for diabetes. In the absence of unequivocal hyperglycemia, results should be confirmed by repeat testing. The classification and Diagnosis of Diabetes Diabetes Care 2021; 46: S19-S40. Current interpretive data was last revised 2022. Testing performed by: [facility], [place], [address] Calcium 9.7 8.5 - 10.3 mg/dL [facility] ([place]) Comment:Testing performed by : [facility], [place], [address] Bilirubin, total 0.4 0.1 - 1.2 mg/dL [facility] ([place]) Comment:Testing performed by : [place], [address] Protein, pl 6.8 6.5 - 8.5 g/dL [facility] ([place]) Comment:Testing performed by : [facility], [place], [address] Albumin 4.3 3.5 - 5.0 g/dL [facility] ([place]) Comment:Testing performed by : [facility], [place], [address] Alk phos 129 40 - 130 Units/L [facility] ([place]) Comment:Testing performed by : [place], [address] ALT 53(H) 7 - 45 Units/L [facility] ([place]) Comment:Testing performed by : [facility], [place], [address] AST 25 10 - 45 Units/L [facility] ([place]) Comment:Testing performed by : [facility], [place], [address] Blood 04/04/2024 10:3 5 AM FIRE SPRINKLER SERVICE TECHNICIAN 04/04/2024 11:16 AM FIRE SPRINKLER SERVICE TECHNICIAN Zoraida Villegas PRACTICAL NURSE CLINICAL COORDINATOR LAB BLOOD ORDERABLES Final Result [facility] ([place]) 1 [facility] Department [place] [address] * Differential, auto (03/21/2024 10:40 AM FIRE SPRINKLER SERVICE TECHNICIAN) Neutrophil abs 1.9 1.5 - 6.5 K/cumm Comment:Testing performed by : [facility] [address], Medical Office [facility] [address], [place] [address] Imm gran abs 0.0 0.0 - 0.1 K/cumm [facility] ([place]) Comment:Testing performed by : [facility] [address], Medical Office [facility] [address], [place] [address] Lymphocyte abs 1.5 0.8 - 3.3 K/cumm [facility] ([place]) Comment:Testing performed by : [facility] [address], Medical Office [address], [place] [address] Monocyte abs 0.4 0.2 - 0.8 K/cumm [facility] ([place]) Comment:Testing performed by : [facility] [place], [address], Medical Office [address], [place] [address] Eosinophil abs 0.1 0.0 - 0.5 K/cumm [facility] ([place]) Comment:Testing performed by : [facility] [address], Medical Office [address], [place] [address] Basophil abs 0.0 0.0 - 0.1 K/cumm [facility] ([place]) Comment:Testing performed by : [facility] [address], Medical Office [address], [place] [address] Neutrophil pct 48.7 % [facility] ([place]) Comment: Interpretive Data Percent cell count reference ranges are not reported, since discordance with absolute values may lead to misinterpretation of CBC data. Current Interpretive Data was last revised on 2022. Testing performed by: [facility] [address], Medical Office [facility] [address], [place] [address] Imm gran pct 0.3 % [facility] ([place]) Comment: Interpretive Data Percent cell count reference ranges are not reported, since discordance with absolute values may lead to misinterpretation of CBC data. Current Interpretive Data was last revised on 2022. Testing performed by: [facility] [address], Medical Office [address], [place] [address] Lymphocyte pct 37.7 % [facility] ([place]) Comment: Interpretive Data Percent cell count reference ranges are not reported, since discordance with absolute values may lead to misinterpretation of CBC data. Current Interpretive Data was last revised on 2022. Testing performed by: [facility] [address], Medical Office [address], [place] [address] Monocyte pct 8.8 % [facility] ([place]) Comment: Interpretive Data Percent cell count reference ranges are not reported, since discordance with absolute values may lead to misinterpretation of CBC data. Current Interpretive Data was last revised on 2022. Testing performed by: [facility] [address], Medical Office [facility] [address], [place] [address] Eosinophil pct 3.5 % [facility] ([place]) Comment: Interpretive Data Percent cell count reference ranges are not reported, since discordance with absolute values may lead to misinterpretation of CBC data. Current Interpretive Data was last revised on 2022. Testing performed by: [facility] [address], Medical Office [facility] [address], [place] [address] Basophil pct 1.0 % [facility] ([place]) Comment: Interpretive Data Percent cell count reference ranges are not reported, since discordance with absolute values may lead to misinterpretation of CBC data. Current Interpretive Data was last revised on 2022. Testing performed by: [facility] [address], Medical Office [facility] [address], [place] [address] Blood 03/21/2024 10:4 0 AM FIRE SPRINKLER SERVICE TECHNICIAN 03/21/2024 10:45 AM FIRE SPRINKLER SERVICE TECHNICIAN Zoraida Villegas NP LAB BLOOD ORDERABLES Final Result [facility] ([place]) 1 [facility] [place] [address] * (ABNORMAL) CBC with auto differential (03/21/2024 10:40 AM FIRE SPRINKLER SERVICE TECHNICIAN) WBC 4.0 3.8 - 9.9 K/cumm Comment:Testing performed by : [facility] [address], Medical Office [facility] [address], [place] [address] Hgb 12.2 11.9 - 15.5 g/dL [facility] ([place]) Comment:Testing performed by : [facility] [address], Medical Office [facility] [address], [place] [address] Hct 37.8 35.6 - 45.5 % [facility] ([place]) Comment:Testing performed by : [facility] [address], Medical Office [facility] [address], [place] [address] Plt 151 150 - 400 K/cumm [facility] ([place]) Comment:Testing performed by : [facility] [address], Medical Office [facility] [address], [place] [address] MPV 10.7 9.1 - 12.3 fL [facility] ([place]) Comment:Testing performed by : [facility] [address], Medical Office [facility] [address], [place] [address] RBC 3.55(L) 3.90 - 5.20 M/cumm [facility] ([place]) Comment:Testing performed by : [facility] [address], Medical Office [facility] [address] [facility] [address], [place] [address] MCV 106.5(H) 81.3 - 96.4 fL [facility] ([place]) Comment:Testing performed by : [facility] [address], Medical Office [facility] [address], [place] [address] MCH 34.4(H) 27.1 - 33.3 pg [facility] ([place]) Comment:Testing performed by : [facility] [address], Medical Office [facility] [address], [place] [address] MCHC 32.3 32.3 - 35.7 g/dL [facility] ([place]) Comment:Testing performed by : [facility] [address], Medical Office [facility] [address], [place] [address] RDW CV 14.1 11.1 - 14.9 % [facility] ([place]) Comment:Testing performed by : [facility] [address], Medical Office [facility] [address], [place] [address] RDW SD 55.9(H) 35.7 - 48.1 fL [facility] ([place]) Comment:Testing performed by : [facility] [address], Medical Office [facility] [address], [place] [address] NRBC abs Not Measured 0.00 - 0.01 K/cumm [facility] ([place]) Comment:Testing performed by : [facility] [address], Medical Office [facility] [address], [place] [address] Blood 03/21/2024 10:4 0 AM FIRE SPRINKLER SERVICE TECHNICIAN 03/21/2024 10:45 AM FIRE SPRINKLER SERVICE TECHNICIAN us Zoraida Villegas NP LAB BLOOD ORDERABLES Final Result Performing Organization Address City/[facility]/ZIP Co de Phone Number [facility] ([place]) [address] [place] [address] Department [place] [address] * eGFR (03/07/2024 9:45 AM FIRE SPRINKLER SERVICE TECHNICIAN) eGFR >90 >=60 mL/min/1. 73 m2 Comment: Interpretive Data Reference Interval Normal >/= 90 mL/min/1.73m2 Mildly decreased* 60 - 89 mL/min/1.73m2 Mildly to moderately decreased 45 - 59 mL/min/1.73m2 Moderately to severely decreased 30 - 44 mL/min/1.73m2 Severely decreased 15 - 29 mL/min/1.73m2 Kidney Failure < 15 mL/min/1.73m2 *Relative to young adult level Estimated glomerular filtration rate is determined by the 2020 CKD-EPI equation recommended by the National Kidney Foundation (A Unifying Approach to GFR Estimation: Recommendations of the NKF-ASK Task Force on Reassessing the Inclusion of Race in Diagnosing Kidney Disease, JASN 2020). The CKD-EPI equation should not be used for patients with unstable renal function and has not been validated in children and those over 70. Current interpretive data was last reviewed 2021. Testing performed by: [place], [address] Blood 03/07/2024 9:45 AM FIRE SPRINKLER SERVICE TECHNICIAN 03/07/2024 9:59 AM FIRE SPRINKLER SERVICE TECHNICIAN us Chalino Chapa MD LAB BLOOD ORDERABLES Aylin l Result [facility] ([place]) 1 [facility] Department [place] [address] * (ABNORMAL) Comprehensive metabolic panel (03/07/2024 9:45 AM FIRE SPRINKLER SERVICE TECHNICIAN) Sodium 142 135 - 145 mmol/L Comment:Testing performed by : [place], [address] Potassium, pl 4.2 3.3 - 4.9 mmol/L [facility] ([place]) Comment:Testing performed by : [facility], [place], [address] Chloride 102 97 - 110 mmol/L [facility] ([place]) Comment:Testing performed by : [facility], [facility], [place], [address] CO2 33(H) 22 - 32 mmol/L [facility] ([place]) Comment:Testing performed by : [facility], [facility], [place], [address] Anion gap 6 2 - 15 mmol/L [facility] ([place]) Comment:Testing performed by : [facility], [place], [address] BUN 16 6 - 25 mg/dL [facility] ([place]) Comment:Testing performed by : [facility], [place], [address] Creatinine 0.55(L) 0.60 - 1.10 mg/dL [facility] ([place]) Comment:Testing performed by : [facility], [place], [address] Glucose 113 70 - 199 mg/dL [facility] ([place]) Comment: Interpretive Data Fasting glucose >/= 126 mg/dl is diagnostic for diabetes. Fasting is defined as no caloric intake for at least 8 hours. Fasting glucose between 100 mg/dl to 125 mg/dl is diagnostic of prediabetes. In a patient with classic symptoms of hyperglycemia or hyperglycemic crisis, a random glucose >/= 200 mg/dl is diagnostic for diabetes. In the absence of unequivocal hyperglycemia, results should be confirmed by repeat testing. The classification and Diagnosis of Diabetes Diabetes Care 2021; 46: S19-S40. Current interpretive data was last revised 2022. Testing performed by: [facility], [place], [address] Calcium 9.5 8.5 - 10.3 mg/dL [facility] ([place]) Comment:Testing performed by : [facility], [place], [address] Bilirubin, total 0.4 0.1 - 1.2 mg/dL [facility] ([place]) Comment:Testing performed by : [facility], [place], [address] Protein, pl 6.6 6.5 - 8.5 g/dL [facility] ([place]) Comment:Testing performed by : [facility], [facility], [place], [address] Albumin 4.1 3.5 - 5.0 g/dL [facility] ([place]) Comment:Testing performed by : [facility], [facility], [place], [address] Alk phos 118 40 - 130 Units/L [facility] ([place]) Comment:Testing performed by : [facility], [facility], [place], [address] ALT 44 7 - 45 Units/L [facility] ([place]) Comment:Testing performed by : [facility], [place], [address] AST 20 10 - 45 Units/L [facility] ([place]) Comment:Testing performed by : [facility], [facility], [place], [address] Blood 03/07/2024 9:45 AM FIRE SPRINKLER SERVICE TECHNICIAN 03/07/2024 9:59 AM FIRE SPRINKLER SERVICE TECHNICIAN us Chalino Chapa MD LAB BLOOD ORDERABLES Aylin l Result [facility] ([place]) 1 [facility] Department [place] [address] * Differential, auto (03/07/2024 8:45 AM FIRE SPRINKLER SERVICE TECHNICIAN) Neutrophil abs 1.5 1.5 - 6.5 K/cumm Comment:Testing performed by : [facility] [address], Medical Office [facility] [address], [place] [address] Imm gran abs 0.0 0.0 - 0.1 K/cumm [facility] ([place]) Comment:Testing performed by : [facility] [address], Medical Office [facility] [address], [place] [address] Lymphocyte abs 1.1 0.8 - 3.3 K/cumm [facility] ([place]) Comment:Testing performed by : [facility] [address], Medical Office [facility] [address], [place] [address] Monocyte abs 0.3 0.2 - 0.8 K/cumm [facility] ([place]) Comment:Testing performed by : [facility] [address], Medical Office [address], [place] [address] Eosinophil abs 0.1 0.0 - 0.5 K/cumm [facility] ([place]) Comment:Testing performed by : [facility] [address], Medical Office [facility] [address], [place] [address] Basophil abs 0.0 0.0 - 0.1 K/cumm [facility] ([place]) Comment:Testing performed by : [facility] [address], Medical Office [facility] [address], [place] [address] Neutrophil pct 50.5 % [facility] ([place]) Comment: Interpretive Data Percent cell count reference ranges are not reported, since discordance with absolute values may lead to misinterpretation of CBC data. Current Interpretive Data was last revised on 2022. Testing performed by: [facility] [address], Medical Office [facility] [address], [place] [address] Imm gran pct 0.0 % [facility] ([place]) Comment: Interpretive Data Percent cell count reference ranges are not reported, since discordance with absolute values may lead to misinterpretation of CBC data. Current Interpretive Data was last revised on 2022. Testing performed by: [facility] [address], Medical Office [facility] [address], [place] [address] Lymphocyte pct 36.8 % [facility] ([place]) Comment: Interpretive Data Percent cell count reference ranges are not reported, since discordance with absolute values may lead to misinterpretation of CBC data. Current Interpretive Data was last revised on 2022. Testing performed by: [facility] [address], Medical Office [facility] [address], [place] [address] Monocyte pct 8.6 % [facility] ([place]) Comment: Interpretive Data Percent cell count reference ranges are not reported, since discordance with absolute values may lead to misinterpretation of CBC data. Current Interpretive Data was last revised on 2022. Testing performed by: [facility] [address], Medical Office [address], [place] [address] Eosinophil pct 3.1 % EM[facility] ([place]) Comment: Interpretive Data Percent cell count reference ranges are not reported, since discordance with absolute values may lead to misinterpretation of CBC data. Current Interpretive Data was last revised on 2022. Testing performed by: [facility] [address], Medical Office [address], [place] [address] Basophil pct 1.0 % [facility] ([place]) Comment: Interpretive Data Percent cell count reference ranges are not reported, since discordance with absolute values may lead to misinterpretation of CBC data. Current Interpretive Data was last revised on 2022. Testing performed by: [facility] [address], Medical Office [facility] [address], [place] [address] Blood 03/07/2024 8:45 AM FIRE SPRINKLER SERVICE TECHNICIAN 03/07/2024 9:49 AM FIRE SPRINKLER SERVICE TECHNICIAN Chalino Chapa MD LAB BLOOD ORDERABLES Aylin freedman Result [facility] ([place]) 1 [facility] Department [place] [address] * (ABNORMAL) CBC with auto differential (03/07/2024 8:45 AM FIRE SPRINKLER SERVICE TECHNICIAN) WBC 2.9(L) 3.8 - 9.9 K/cumm Comment:Testing performed by : [facility] [address], Medical Office [facility] [address], [place] [address] Hgb 11.8(L) 11.9 - 15.5 g/dL [facility] ([place]) Comment:Testing performed by : [facility] [address], Medical Office [facility] [address], [place] [address] Hct 37.1 35.6 - 45.5 % [facility] ([place]) Comment:Testing performed by : [facility] [address], Medical Office [facility] [address], [place] [address] Plt 135(L) 150 - 400 K/cumm [facility] ([place]) Comment:Testing performed by : [facility] [address], Medical Office [facility] [address], [place] [address] MPV 10.4 9.1 - 12.3 fL [facility] ([place]) Comment:Testing performed by : [facility] [address], Medical Office [facility] [address], [place] [address] RBC 3.44(L) 3.90 - 5.20 M/cumm [facility] ([place]) Comment:Testing performed by : [facility] [address], Medical Office [facility] [address], [place] [address] MCV 107.8(H) 81.3 - 96.4 fL [facility] ([place]) Comment:Testing performed by : [facility] [address], Medical Office [facility] [address], [place] [address] MCH 34.3(H) 27.1 - 33.3 pg [facility] ([place]) Comment:Testing performed by : [facility] [address], Medical Office [facility] [address], [place] [address] MCHC 31.8(L) 32.3 - 35.7 g/dL [facility] ([place]) Comment:Testing performed by : [facility] [address], Medical Office [facility] [address], [place] [address] RDW CV 14.5 11.1 - 14.9 % [facility] ([place]) Comment:Testing performed by : [facility] [address], Medical Office [facility] [address], [place] [address] RDW SD 58.0(H) 35.7 - 48.1 fL [facility] ([place]) Comment:Testing performed by : [facility] [address], Medical Office [facility] [address], [place] [address] NRBC abs Not Measured 0.00 - 0.01 K/cumm [facility] ([place]) Comment:Testing performed by : [facility] [address], Medical Office [facility] [address], [place] [address] Blood 03/07/2024 8:45 AM FIRE SPRINKLER SERVICE TECHNICIAN 03/07/2024 9:49 AM FIRE SPRINKLER SERVICE TECHNICIAN Chalino Chapa MD LAB BLOOD ORDERABLES Aylin l Result [facility] [place]) 1 [facility] [place] [address] * eGFR (02/22/2024 8:10 AM FIRE SPRINKLER SERVICE TECHNICIAN) eGFR >90 >=60 mL/min/1. 73 m2 Comment: Interpretive Data Reference Interval Normal >/= 90 mL/min/1.73m2 Mildly decreased* 60 - 89 mL/min/1.73m2 Mildly to moderately decreased 45 - 59 mL/min/1.73m2 Moderately to severely decreased 30 - 44 mL/min/1.73m2 Severely decreased 15 - 29 mL/min/1.73m2 Kidney Failure < 15 mL/min/1.73m2 *Relative to young adult level Estimated glomerular filtration rate is determined by the 2020 CKD-EPI equation recommended by the National Kidney Foundation (A Unifying Approach to GFR Estimation: Recommendations of the NKF-ASK Task Force on Reassessing the Inclusion of Race in Diagnosing Kidney Disease, JASN 2020). The CKD-EPI equation should not be used for patients with unstable renal function and has not been validated in children and those over 70. Current interpretive data was last reviewed 2021. Blood 02/22/2024 8:10 AM FIRE SPRINKLER SERVICE TECHNICIAN 02/22/2024 10:47 AM FIRE SPRINKLER SERVICE TECHNICIAN us Neisha Hi NP LAB BLOOD ORDERABLES Final R esult [facility] ([place]) 1 [facility] [place] [address] * eGFR (02/22/2024 8:10 AM FIRE SPRINKLER SERVICE TECHNICIAN) eGFR >90 >=60 mL/min/1. 73 m2 Comment: Interpretive Data Reference Interval Normal >/= 90 mL/min/1.73m2 Mildly decreased* 60 - 89 mL/min/1.73m2 Mildly to moderately decreased 45 - 59 mL/min/1.73m2 Moderately to severely decreased 30 - 44 mL/min/1.73m2 Severely decreased 15 - 29 mL/min/1.73m2 Kidney Failure < 15 mL/min/1.73m2 *Relative to young adult level Estimated glomerular filtration rate is determined by the 2020 CKD-EPI equation recommended by the National Kidney Foundation (A Unifying Approach to GFR Estimation: Recommendations of the NKF-ASK Task Force on Reassessing the Inclusion of Race in Diagnosing Kidney Disease, JASN 2020). The CKD-EPI equation should not be used for patients with unstable renal function and has not been validated in children and those over 70. Current interpretive data was last reviewed 2021. Testing performed by: [facility], [facility], [place], [address] Blood 02/22/2024 8:10 AM FIRE SPRINKLER SERVICE TECHNICIAN 02/22/2024 8:32 AM FIRE SPRINKLER SERVICE TECHNICIAN us Chalino Chapa MD LAB BLOOD ORDERABLES Aylin freedman Result [facility] ([place]) 1 [facility] Department [place] [address] * Differential, auto (02/22/2024 8:10 AM FIRE SPRINKLER SERVICE TECHNICIAN) Neutrophil abs 1.6 1.5 - 6.5 K/cumm Comment:Testing performed by : [facility] [address], Medical Office [facility] [address], [place] [address] Imm gran abs 0.0 0.0 - 0.1 K/cumm [facility] ([place]) Comment:Testing performed by : [facility] [address], Medical Office [facility] [address], [place] [address] Lymphocyte abs 1.3 0.8 - 3.3 K/cumm [facility] ([place]) Comment:Testing performed by : [facility] [address], Medical Office [facility] [address], [place] [address] Monocyte abs 0.3 0.2 - 0.8 K/cumm [facility] ([place]) Comment:Testing performed by : [facility] [address], Medical Office [facility] [address], [place] [address] Eosinophil abs 0.1 0.0 - 0.5 K/cumm [facility] ([place]) Comment:Testing performed by : [facility] [address], Medical Office [facility] [address], [place] [address] Basophil abs 0.0 0.0 - 0.1 K/cumm [facility] ([place]) Comment:Testing performed by : [facility] [address], Medical Office [facility] [address], [place] [address] Neutrophil pct 48.5 % [facility] ([place]) Comment: Interpretive Data Percent cell count reference ranges are not reported, since discordance with absolute values may lead to misinterpretation of CBC data. Current Interpretive Data was last revised on 2022. Testing performed by: [facility] [address], Medical Office [facility] [address], [place] [address] Imm gran pct 0.3 % [facility] ([place]) Comment: Interpretive Data Percent cell count reference ranges are not reported, since discordance with absolute values may lead to misinterpretation of CBC data. Current Interpretive Data was last revised on 2022. Testing performed by: [facility] [address], Medical Office [facility] [address], [place] [address] Lymphocyte pct 39.7 % [facility] ([place]) Comment: Interpretive Data Percent cell count reference ranges are not reported, since discordance with absolute values may lead to misinterpretation of CBC data. Current Interpretive Data was last revised on 2022. Testing performed by: [facility] [address], Medical Office [facility] [address], [place] [address] Monocyte pct 8.1 % [facility] ([place]) Comment: Interpretive Data Percent cell count reference ranges are not reported, since discordance with absolute values may lead to misinterpretation of CBC data. Current Interpretive Data was last revised on 2022. Testing performed by: [facility] [address], Medical Office [facility] [address], [place] [address] Eosinophil pct 2.8 % [facility] ([place]) Comment: Interpretive Data Percent cell count reference ranges are not reported, since discordance with absolute values may lead to misinterpretation of CBC data. Current Interpretive Data was last revised on 2022. Testing performed by: [facility] [address], Medical Office [facility] [address], [place] [address] Basophil pct 0.6 % [facility] ([place]) Comment: Interpretive Data Percent cell count reference ranges are not reported, since discordance with absolute values may lead to misinterpretation of CBC data. Current Interpretive Data was last revised on 2022. Testing performed by: [facility] [address], Medical Office [facility] [address], [place] [address] Blood 02/22/2024 8:10 AM FIRE SPRINKLER SERVICE TECHNICIAN 02/22/2024 8:17 AM FIRE SPRINKLER SERVICE TECHNICIAN us Chalino Chapa MD LAB BLOOD ORDERABLES Aylin freedman Result [facility] ([place]) 1 [facility] [place] [address] * (ABNORMAL) CBC with auto differential (02/22/2024 8:10 AM FIRE SPRINKLER SERVICE TECHNICIAN) WBC 3.2(L) 3.8 - 9.9 K/cumm Comment:Testing performed by : [facility] [address], Medical Office [facility] [address], [place] [address] Hgb 12.7 11.9 - 15.5 g/dL [facility] ([place]) Comment:Testing performed by : [facility] [address], Medical Office [facility] [address], [place] [address] Hct 39.8 35.6 - 45.5 % [facility] ([place]) Comment:Testing performed by : [facility] [address], Medical Office [facility] [address], [place] [address] Plt 125(L) 150 - 400 K/cumm [facility] ([place]) Comment:Testing performed by : [facility] [address], Medical Office [facility] [address], [place] [address] MPV 11.1 9.1 - 12.3 fL [facility] ([place]) Comment:Testing performed by : [facility] [address], Medical Office [facility] [address], [place] [address] RBC 3.68(L) 3.90 - 5.20 M/cumm [facility] ([place]) Comment:Testing performed by : [facility] [address], Medical Office [facility] [address], [place] [address] MCV 108.2(H) 81.3 - 96.4 fL [facility] ([place]) Comment:Testing performed by : [facility] [address], Medical Office [facility] [address], [place] [address] MCH 34.5(H) 27.1 - 33.3 pg [facility] ([place]) Comment:Testing performed by : [facility] [address], Medical Office [facility] [address], [place] [address] MCHC 31.9(L) 32.3 - 35.7 g/dL [facility] ([place]) Comment:Testing performed by : [facility] [address], Medical Office [facility] [address], [place] [address] RDW CV 15.5(H) 11.1 - 14.9 % [facility] ([place]) Comment:Testing performed by : [facility] [address], Medical Office [facility] [address], [place] [address] RDW SD 62.6(H) 35.7 - 48.1 fL [facility] ([place]) Comment:Testing performed by : [facility] [address], Medical Office [facility] [address], [place] [address] NRBC abs Not Measured 0.00 - 0.01 K/cumm [facility] ([place]) Comment:Testing performed by : [facility] [address], Medical Office [facility] [address], [place] [address] Blood 02/22/2024 8:10 AM FIRE SPRINKLER SERVICE TECHNICIAN 02/22/2024 8:17 AM FIRE SPRINKLER SERVICE TECHNICIAN us Chalino Chapa MD LAB BLOOD ORDERABLES Aylin freedman Result [facility] ([place]) 1 [facility] [place] [address] * TSH (02/22/2024 8:10 AM FIRE SPRINKLER SERVICE TECHNICIAN) Thyroid Stimulating Hormone 2.55 0.30 - 4.20 mcIUnit/mL Blood 02/22/2024 8:10 AM FIRE SPRINKLER SERVICE TECHNICIAN 02/22/2024 10:47 AM FIRE SPRINKLER SERVICE TECHNICIAN us Neisha Hi NP LAB BLOOD ORDERABLES Final R esult [facility] ([place]) 1 [facility] Department [place] [address] * (ABNORMAL) Comprehensive metabolic panel (02/22/2024 8:10 AM FIRE SPRINKLER SERVICE TECHNICIAN) Sodium 142 135 - 145 mmol/L Potassium, pl 4.1 3.3 - 4.9 mmol/L [facility] ([place]) Chloride 101 97 - 110 mmol/L [facility] ([place]) CO2 34(H) 22 - 32 mmol/L [facility] ([place]) Anion gap 8 2 - 15 mmol/L [facility] ([place]) BUN 16 6 - 25 mg/dL [facility] ([place]) Creatinine 0.50(L) 0.60 - 1.10 mg/dL [facility] ([place]) Glucose 150 70 - 199 mg/dL [facility] ([place]) Comment: Interpretive Data Fasting glucose >/= 126 mg/dl is diagnostic for diabetes. Fasting is defined as no caloric intake for at least 8 hours. Fasting glucose between 100 mg/dl to 125 mg/dl is diagnostic of prediabetes. In a patient with classic symptoms of hyperglycemia or hyperglycemic crisis, a random glucose >/= 200 mg/dl is diagnostic for diabetes. In the absence of unequivocal hyperglycemia, results should be confirmed by repeat testing. The classification and Diagnosis of Diabetes Diabetes Care 202; 46: S19-S40. Current interpretive data was last revised 2022. Calcium 9.4 8.5 - 10.3 mg/dL [facility] ([place]) Bilirubin, total 0.5 0.1 - 1.2 mg/dL [facility] ([place]) Protein, pl 7.2 6.5 - 8.5 g/dL [facility] ([place]) Albumin 4.5 3.5 - 5.0 g/dL [facility] ([place]) Alk phos 132(H) 40 - 130 Units/L [facility] ([place]) ALT 33 7 - 45 Units/L [facility] ([place]) AST 22 10 - 45 Units/L [facility] ([place]) Blood 02/22/2024 8:10 AM FIRE SPRINKLER SERVICE TECHNICIAN 02/22/2024 10:47 AM FIRE SPRINKLER SERVICE TECHNICIAN us Neisha Hi NP LAB BLOOD ORDERABLES Final R esult [facility] ([place]) 1 [facility] Department [place] [address] * (ABNORMAL) Comprehensive metabolic panel (02/22/2024 8:10 AM FIRE SPRINKLER SERVICE TECHNICIAN) Sodium 136 135 - 145 mmol/L Comment:Testing performed by : [facility], [place], [address] Potassium, pl 3.9 3.3 - 4.9 mmol/L [facility] ([place]) Comment:Testing performed by : [facility], [place], [address] Chloride 97 97 - 110 mmol/L [facility] ([place]) Comment:Testing performed by : [facility], [place], [address] CO2 34(H) 22 - 32 mmol/L [facility] ([place]) Comment:Testing performed by : [facility], [place], [address] Anion gap 4 2 - 15 mmol/L [facility] ([place]) Comment:Testing performed by : [place], [address] BUN 15 6 - 25 mg/dL [facility] ([place]) Comment:Testing performed by : [place], [address] Creatinine 0.49(L) 0.60 - 1.10 mg/dL [facility] ([place]) Comment:Testing performed by : [place], [address] Glucose 154 70 - 199 mg/dL [facility] ([place]) Comment: Interpretive Data Fasting glucose >/= 126 mg/dl is diagnostic for diabetes. Fasting is defined as no caloric intake for at least 8 hours. Fasting glucose between 100 mg/dl to 125 mg/dl is diagnostic of prediabetes. In a patient with classic symptoms of hyperglycemia or hyperglycemic crisis, a random glucose >/= 200 mg/dl is diagnostic for diabetes. In the absence of unequivocal hyperglycemia, results should be confirmed by repeat testing. The classification and Diagnosis of Diabetes Diabetes Care 2021; 46: S19-S40. Current interpretive data was last revised 2022. Testing performed by: [facility], [place], [address] Calcium 9.7 8.5 - 10.3 mg/dL [facility] ([place]) Comment:Testing performed by : [place], [address] Bilirubin, total 0.5 0.1 - 1.2 mg/dL [facility] ([place]) Comment:Testing performed by : [facility], [place], [address] Protein, pl 7.0 6.5 - 8.5 g/dL [facility] ([place]) Comment:Testing performed by : [facility], [place], [address] Albumin 4.4 3.5 - 5.0 g/dL [facility] ([place]) Comment:Testing performed by : [facility], [place], [address] Alk phos 131(H) 40 - 130 Units/L [facility] ([place]) Comment:Testing performed by : [facility], [place], [address] ALT 37 7 - 45 Units/L [facility] ([place]) Comment:Testing performed by : [facility], [place], [address] AST 20 10 - 45 Units/L [facility] ([place]) Comment:Testing performed by : [facility], [place], [address] Blood 02/22/2024 8:10 AM FIRE SPRINKLER SERVICE TECHNICIAN 02/22/2024 8:32 AM FIRE SPRINKLER SERVICE TECHNICIAN us Chalino Chapa MD LAB BLOOD ORDERABLES Aylin l Result [facility] 1 [facility] Department of Laboratories [place], [place] [id number] from Last 3 Months Insurance MEDICARE MEDICARE [facility] MEDICARE SUPPLEMENT [address] [place] [address] MEDICARE [facility] MEDICARE SUPPLEMENT Advance Directives For more information, please contact: [phone] Documents on File Type Date Recorded Patient Employment Coordinator Expl anation ADVANCE DIRECTIVE 12/20/2023 8:01 AM Power of Director Of Slot Operations-Medical * Full Code (Latest Code Status on File) Date Activated Date Inactivated Comments 12/11/2023 12:19 PM 12/19/2023 6:45 PM Care Teams Installation And Service Technician Relationship Specialty Start Date End Date Bryan Davey DO PCP - General Internal Medicine 11/14/23
--- OUTSIDE RECORDS SUMMARY | 2024-05-20 12:59 | XMS_ITS | Referral Summary ---
Author Organization [facility] Building B Address [address] [place] [address] Care Team Providers Care Credit Control Clerk Name Role Phone Bryan Davey DO Primary Care Provider [phone]- [phone] Encounters Date Type Department Care Team Description 05/20/2024 Telephone [facility] Oncology [address] [place] [address] [address] [place] [address] Radha Veliz RN 05/20/2024 Telephone [facility] Oncology [address] [place] [address] [address] [place] [address] Radha Veliz, ALBERT 05/17/2024 Orders Only [facility] Oncology [address] [place] [address] [address] [place] [address] Chalino Chapa MD MDS (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 syndrome) (HCC) (Primary Dx) 05/17/[address] [place] [phone] Karen Donaldson RN 05/17/2024 1:00 PM AIRFRAME TECHNICAL OFFICER Infusion [address] [place] [address] MDS (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 syndrome) (HCC) (Primary Dx); Encounter for care related to Port-a-Cath 05/16/2024 Telephone [facility] Oncology [address] [place] [address] Office [facility] [address] [place] [address] Radha Veliz, ALBERT 05/16/[address] [place] [address] Yadi Gtz RN 05/16/2024 10:30 AM AIRFRAME TECHNICAL OFFICER Lab [address] [place] [address] MDS (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 syndrome) (HCC) 05/16/[address] [place] [address] Chalino Chapa MD 05/16/2024 Orders Only [facility] Oncology [address] [place] [address] [address] [place] [address] Chalino Chapa MD MDS (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 syndrome) (HCC) (Primary Dx) 05/10/2024 11:00 AM AIRFRAME TECHNICAL OFFICER Infusion [address] [place] [address] Anemia, unspecified type (Primary Dx); MDS (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 syndrome) (HCC) 05/10/2024 Orders Only [facility] Oncology [address] [place] [address] [address] [place] [address] Chalino Chapa MD MDS (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 syndrome) (HCC) (Primary Dx) 05/10/2024 9:45 AM AIRFRAME TECHNICAL OFFICER Lab [address] [place] [address] Anemia, unspecified type (Primary Dx); MDS (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 syndrome) (HCC) 05/08/2024 Orders Only [facility] Oncology [address] [place] [address] Office [facility] [address] [place] [address] Chalino Chapa MD MDS (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 syndrome) (HCC) (Primary Dx) 05/03/2024 10:30 AM AIRFRAME TECHNICAL OFFICER Infusion [address] [place] [phone] Encounter for care related to Port-a-Cath (Primary Dx); MDS (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 syndrome) (HCC) 05/02/2024 10:30 AM AIRFRAME TECHNICAL OFFICER Infusion [address] [place] [phone] MDS (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 syndrome) (HCC) (Primary Dx); Encounter for care related to Port-a-Cath 05/01/2024 9:30 AM AIRFRAME TECHNICAL OFFICER Infusion [address] [place] [phone] MDS (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 syndrome) (HCC) (Primary Dx); Encounter for care related to Port-a-Cath 04/30/2024 10:00 AM AIRFRAME TECHNICAL OFFICER Infusion [address] [place] [phone] MDS (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 syndrome) (HCC) (Primary Dx); Encounter for care related to Port-a-Cath 04/29/2024 Orders Only [facility] Oncology [address] [place] [address] Medical Office Bldg [address] [place] [address] Milla Armenta NP MDS (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 syndrome) (HCC) (Primary Dx) 04/29/2024 8:45 AM AIRFRAME TECHNICAL OFFICER Lab [address] [place] [phone] MDS (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 syndrome) (HCC) 04/29/2024 9:30 AM AIRFRAME TECHNICAL OFFICER Infusion [address] [place] [phone] MDS (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 syndrome) (HCC) (Primary Dx); Encounter for care related to Port-a-Cath 04/29/2024 9:15 AM AIRFRAME TECHNICAL OFFICER Office Visit [facility] Oncology [address] [place] [address] Medical Office Bldg [address] [place] [address] Milla Armenta NP MDS (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 syndrome) (HCC) 04/26/2024 Telephone [facility] Oncology [address] [place] [address] Office [facility] [address] [place] [address] Clau Cabral, CLT 04/25/2024 Telephone [facility] Oncology [address] [place] [address] Office [facility] [address] [place] [address] Anisa Villagran, CLT 04/25/2024 Orders Only [facility] Oncology [address] [place] [address] Office [facility] [address] [place] [address] Chalino Chapa MD 04/24/2024 Orders Only [facility] Oncology [address] [place] [address] Office [facility] [address] [place] [address] Chalino Chapa MD 04/23/2024 Telephone [facility] Oncology [address] [place] [address] Office [facility] [address] [place] [address] Anisa Villagran, CLT 04/23/2024 Orders Only [facility] Oncology [address] [place] [address] Office [facility] [address] [place] [address] Chalino Chapa MD 04/18/2024 9:45 AM AIRFRAME TECHNICAL OFFICER Lab [facility] [address] [facility] [address] [place] [address] MDS (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 syndrome) (HCC) 04/18/2024 10:15 AM AIRFRAME TECHNICAL OFFICER Office Visit [facility] Oncology [address] [place] [address] Office [facility] [address] [place] [address] Milla Armenta, CLAUDIA Myelodysplastic syndrome (HCC) (Primary Dx); MDS (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 syndrome) (HCC) 04/17/2024 2:00 PM AIRFRAME TECHNICAL OFFICER Office Visit [facility] at [address] [place] [address] Shadi Tan DO Primary osteoarthritis of right knee (Primary Dx) 04/04/2024 10:30 AM AIRFRAME TECHNICAL OFFICER Lab [address] [place] [address] MDS (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 syndrome) (HCC) 04/04/2024 11:00 AM AIRFRAME TECHNICAL OFFICER Office Visit [facility] Oncology [address] [place] [address] Office [facility] [address] [place] [address] Chalino Chapa MD MDS (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 syndrome) (HCC) (Primary Dx) 03/21/2024 10:30 AM AIRFRAME TECHNICAL OFFICER Lab [address] [place] [address] MDS (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 syndrome) (HCC) 03/07/2024 9:45 AM AIRFRAME TECHNICAL OFFICER Lab [address] [place] [phone] MDS (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 syndrome) (HCC) 03/07/2024 10:15 AM AIRFRAME TECHNICAL OFFICER Office Visit [facility] Oncology [address] [place] [address] Office [facility] [address] [place] [address] Milla Armenta, CLAUDIA MDS (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 syndrome) (HCC) (Primary Dx) 03/06/2024 Telephone [facility] Oncology [address] [place] [address] Office [facility] [address] [place] [address] Clau Cabral, CIRO 02/22/2024 8:10 AM AIRFRAME TECHNICAL OFFICER - 02/22/2024 11:59 PM AIRFRAME TECHNICAL OFFICER Hospital Encounter [address] Discharge Disposition: Discharge to home or self care 02/22/2024 8:15 AM AIRFRAME TECHNICAL OFFICER Lab [address] [place] [address] MDS (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 syndrome) (HCC) 02/22/2024 8:45 AM AIRFRAME TECHNICAL OFFICER Office Visit [facility] Oncology [address] [place] [address] Office [facility] [address] [place] [address] Chalino Chapa MD MDS (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 syndrome) (HCC) (Primary Dx) 02/21/2024 Telephone [facility] Oncology [address] [facility] Medical Office Bl [address] [place] [address] Clau Cabral, CLT from Last 3 Months Allergies Active Allergy Reactions Criticality Noted Date [...] 10 mg tabletIndicatio ns:MDS (myelodysplasti c syndrome) ([facility]) Take 1 tablet (10 mg total) by mouth every 6 (six) hours as needed for nausea or vomiting 120 tablet 3 4 Active acyclovir (ZOVIRAX) 400 mg tabletIndicatio ns:MDS (myelodysplasti c syndrome) ([facility]) Take 1 tablet (400 mg [...] 1 tablet (75 mcg total) 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 30 tablet 4 Active oxyBUTYnin XL (DITROPAN-XL) 5 mg 24 hr tablet 4 Active Active Problems Problem Noted Date Diagnosed Date Pancytopenia due to chemotherapy ([facility]) 12/18 Moderate malnutrition 12/12/2023 Myelodysplastic syndrome wit [...] deficiency 12/07/2022 Anemia 10/03/2022 Interstitial lung disease ([facility]) 03/24/2020 Postinflammatory pulmonary fibrosis ([facility]) Osteoporosis 01/30/2018 Hoarseness 08/26/2014 Overview (07/08/2016): Hoarseness [...] (06/06/2018): Added automatically from request for surgery [id number] Immunizations Immunization Administration Dates Next Due Influenza, Quadrivalent, Hig h Dose, Preservative Free, Intrr 03/14/2023,01/07/2022,01/15/2021,01/12 Influenza, Quadrivalent, Spl it, Intramuscular 02/14/2019,12/02/2016 Influenza, Trivalent, High D ose, Split, Preservative Free, Intramuscular 02/06/2018,02/02/2016 Influenza, Trivalent, IM (MDV) 02/01/2015,2013 Influenza, Trivalent, Preser vative Free, Intramuscular 02/13/2013 Pneumococcal Conjugate PCV 13 05/18/2016, 017 Pneumococcal Polysaccharide PPV23 10/26/2020,02/2006 Tdap 09/09/2019 ZOSTER LIVE 04/03/2016 ZOSTER Recombinant 03/29/2022,10/26/2020 Social History Tobacco Use Types Packs/Day Years [...] on file Legal Sex Female 1:43 AM AIRFRAME TECHNICAL OFFICER Gender Identity Not on file Sexual Orientation Not on file Last Filed Vital Signs Vital Sign Reading Time Taken Comments Blood Pressure 120/71 05/17/2024 3:20 PM AIRFRAME TECHNICAL OFFICER Pulse 88 05/17/2024 3:20 PM AIRFRAME TECHNICAL OFFICER Temperature 36.7 C (98 F) 05/17/2024 3:20 PM AIRFRAME TECHNICAL OFFICER Respiratory Rate 16 05/17/2024 3:20 PM AIRFRAME TECHNICAL OFFICER Oxygen Saturation 100% 05/17/2024 3:20 PM AIRFRAME TECHNICAL OFFICER Inhaled Oxygen Concentration - - Weight 64.7 kg (142 lb 9.6 oz) 05/16/2024 10:44 AM AIRFRAME TECHNICAL OFFICER Height 152.4 cm (5') 04/29/2024 8:59 AM AIRFRAME TECHNICAL OFFICER Body Mass Index 27.85 04/29/2024 8:59 AM AIRFRAME TECHNICAL OFFICER Plan of Treatment Not on file Medical Devices Implanted Type Area Insurance Agency Owner Device Identifier Shelf Expiration Date Model / Serial / Lot [employer] Mri Airguard 8fr 1 Lumen Attachable Catheter Latex Free [id number] - [id number] Implanted:Qty: 1 on 11/20/2023 by Shade Red MD at [facility] Right: Chest Emre [place] 09/30/2024 [id number] / / [id number] Procedures Procedure Name Priority Date/Time Associated Diagnosis Comments IMMATURE PLATELET FRACTION STAT 05/17/2024 1:20 PM AIRFRAME TECHNICAL OFFICER MDS (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 syndrome) (HCC) DIFFERENTIAL AUTO STAT 05/17/2024 1:2 0 PM AIRFRAME TECHNICAL OFFICER MDS (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 syndrome) (HCC) CBC WITH AUTO DIFFERENTIAL STAT 05/17/2024 1:20 PM AIRFRAME TECHNICAL OFFICER MDS (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 syndrome) (HCC) PREPARE RBC Routine 05/16/2024 2:12 PM AIRFRAME TECHNICAL OFFICER MDS (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 syndrome) (HCC) CROSSMATCH Routine 05/16/2024 10:45 AM AIRFRAME TECHNICAL OFFICER MDS (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 syndrome) (HCC) ANTIBODY SCREEN Routine 05/16/2024 10:45 AM AIRFRAME TECHNICAL OFFICER MDS (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 syndrome) (HCC) ABO/RH Routine 05/16/2024 10:45 AM AIRFRAME TECHNICAL OFFICER MDS (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 syndrome) (HCC) TYPE AND SCREEN Routine 05/16/2024 10:45 AM AIRFRAME TECHNICAL OFFICER MDS (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 syndrome) (HCC) MANUAL DIFFERENTIAL Routine 05/16/2024 1 0:45 AM AIRFRAME TECHNICAL OFFICER MDS (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 syndrome) (HCC) CBC WITH AUTO DIFFERENTIAL Routine 05/16/2024 10:45 AM AIRFRAME TECHNICAL OFFICER MDS (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 syndrome) (HCC) TRANSFUSE RED BLOOD CELLS Timed 05/10/2024 11:18 AM AIRFRAME TECHNICAL OFFICER MDS (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 syndrome) (HCC) Anemia, unspecified type PREPARE RBC Routine 05/10/2024 11:07 AM AIRFRAME TECHNICAL OFFICER PREPARE RBC Routine 05/10/2024 11:07 AM AIRFRAME TECHNICAL OFFICER MDS (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 syndrome) (HCC) Anemia, unspecified type CROSSMATCH Routine 05/10/2024 10:00 AM AIRFRAME TECHNICAL OFFICER MDS (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 syndrome) (HCC) Anemia, unspecified type ANTIBODY SCREEN Routine 05/10/2024 10:00 AM AIRFRAME TECHNICAL OFFICER MDS (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 syndrome) (HCC) Anemia, unspecified type ABO/RH Routine 05/10/2024 10:00 AM AIRFRAME TECHNICAL OFFICER MDS (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 syndrome) (HCC) Anemia, unspecified type TYPE AND SCREEN Routine 05/10/2024 10:00 AM AIRFRAME TECHNICAL OFFICER MDS (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 syndrome) (HCC) Anemia, unspecified type DIFFERENTIAL AUTO Routine 05/10/2024 10: 00 AM AIRFRAME TECHNICAL OFFICER MDS (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 syndrome) (HCC) CBC WITH AUTO DIFFERENTIAL Routine 05/10/2024 10:00 AM AIRFRAME TECHNICAL OFFICER MDS (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 syndrome) (HCC) EGFR STAT 04/29/2024 8:50 AM AIRFRAME TECHNICAL OFFICER MDS (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 syndrome) (HCC) DIFFERENTIAL AUTO STAT 04/29/2024 8:5 0 AM AIRFRAME TECHNICAL OFFICER MDS (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 syndrome) (HCC) CBC WITH AUTO DIFFERENTIAL STAT 04/29/2024 8:50 AM AIRFRAME TECHNICAL OFFICER MDS (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 syndrome) (HCC) COMPREHENSIVE METABOLIC PANEL STAT 04/29/2024 8:50 AM AIRFRAME TECHNICAL OFFICER MDS (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 syndrome) (HCC) MANUAL DIFFERENTIAL Routine 04/18/2024 1 0:00 AM AIRFRAME TECHNICAL OFFICER MDS (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 syndrome) (HCC) EGFR Routine 04/18/2024 10:00 AM AIRFRAME TECHNICAL OFFICER MDS (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 syndrome) (HCC) CBC WITH AUTO DIFFERENTIAL Routine 04/18/2024 10:00 AM AIRFRAME TECHNICAL OFFICER MDS (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 syndrome) (HCC) COMPREHENSIVE METABOLIC PANEL Routine 04/18/2024 10:00 AM AIRFRAME TECHNICAL OFFICER MDS (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 syndrome) (HCC) PA ARTHROCENTESIS ASPIR&/INJ MAJOR JT/BURSA W/US Routine 04/17/2024 2:00 PM AIRFRAME TECHNICAL OFFICER Primary osteoarthritis of right knee EGFR Routine 04/04/2024 10:35 AM AIRFRAME TECHNICAL OFFICER MDS (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 syndrome) (HCC) DIFFERENTIAL AUTO Routine 04/04/2024 10: 35 AM AIRFRAME TECHNICAL OFFICER MDS (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 syndrome) (HCC) COMPREHENSIVE METABOLIC PANEL Routine 04/04/2024 10:35 AM AIRFRAME TECHNICAL OFFICER MDS (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 syndrome) (HCC) CBC WITH AUTO DIFFERENTIAL Routine 04/04/2024 10:35 AM AIRFRAME TECHNICAL OFFICER MDS (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 syndrome) (HCC) DIFFERENTIAL AUTO Routine 03/21/2024 10: 40 AM AIRFRAME TECHNICAL OFFICER MDS (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 syndrome) (HCC) CBC WITH AUTO DIFFERENTIAL Routine 03/21/2024 10:40 AM AIRFRAME TECHNICAL OFFICER MDS (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 syndrome) (HCC) EGFR Routine 03/07/2024 9:45 AM AIRFRAME TECHNICAL OFFICER MDS (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 syndrome) (HCC) COMPREHENSIVE METABOLIC PANEL Routine 03/07/2024 9:45 AM AIRFRAME TECHNICAL OFFICER MDS (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 syndrome) (HCC) DIFFERENTIAL AUTO Routine 03/07/2024 8:4 5 AM AIRFRAME TECHNICAL OFFICER MDS (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 syndrome) (HCC) CBC WITH AUTO DIFFERENTIAL Routine 03/07/2024 8:45 AM AIRFRAME TECHNICAL OFFICER MDS (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 syndrome) (HCC) EGFR Routine 02/22/2024 8:10 AM AIRFRAME TECHNICAL OFFICER TSH Routine 02/22/2024 8:10 AM AIRFRAME TECHNICAL OFFICER COMPREHENSIVE METABOLIC PANEL Routine 02/22/2024 8:10 AM AIRFRAME TECHNICAL OFFICER EGFR Routine 02/22/2024 8:10 AM AIRFRAME TECHNICAL OFFICER MDS (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 syndrome) (HCC) DIFFERENTIAL AUTO Routine 02/22/2024 8:1 0 AM AIRFRAME TECHNICAL OFFICER MDS (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 syndrome) (HCC) COMPREHENSIVE METABOLIC PANEL Routine 02/22/2024 8:10 AM AIRFRAME TECHNICAL OFFICER MDS (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 syndrome) (HCC) CBC WITH AUTO DIFFERENTIAL Routine 02/22/2024 8:10 AM AIRFRAME TECHNICAL OFFICER MDS (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 syndrome) (HCC) TRANSFUSE RED BLOOD CELLS Timed MDS (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 syndrome) (HCC) from Last 3 Months Results * Immature platelet fraction (05/17/2024 1:20 PM AIRFRAME TECHNICAL OFFICER) Pathologist [facility] IPF 9.7 1.6 - 10.1 % Comment:Testing performed by : [place], [address] Blood 05/17/2024 1:20 PM AIRFRAME TECHNICAL OFFICER 05/17/2024 1:36 PM AIRFRAME TECHNICAL OFFICER us Milla Armenta NP LAB BLOOD ORDERABLES Final Result [facility] ([place]) [address] [facility] Department [place] [address] * (ABNORMAL) Differential, auto (05/17/2024 1:20 PM AIRFRAME TECHNICAL OFFICER) [facility] Neutrophil abs 0.0(L) 1.5 - 6.5 K/cumm Comment:Testing performed by : [place], [address] Imm gran abs 0.0 0.0 - 0.1 K/cumm [facility] ([place]) Comment:Testing performed by : [place], [address] Lymphocyte abs 0.8 0.8 - 3.3 K/cumm [facility] ([place]) Comment:Testing performed by : [facility], [facility], [place], [address] Monocyte abs 0.0(L) 0.2 - 0.8 K/cumm [facility] ([place]) Comment:Testing performed by : [facility], [facility], [place], [address] Eosinophil abs 0.0 0.0 - 0.5 K/cumm [facility] ([place]) Comment:Testing performed by : [facility], [facility], [place], [address] Basophil abs 0.0 0.0 - 0.1 K/cumm [facility] ([place]) Comment:Testing performed by : [facility], [place], [address] Neutrophil pct 3.7 % [facility] ([place]) Comment: Interpretive Data Percent cell count reference ranges are not reported, since discordance with absolute values may lead to misinterpretation of CBC data. Current Interpretive Data was last revised on 2017. Testing performed by: [facility], [place], [address] Imm gran pct 0.0 % [facility] ([place]) Comment: Interpretive Data Percent cell count reference ranges are not reported, since discordance with absolute values may lead to misinterpretation of CBC data. Current Interpretive Data was last revised on 2017. Testing performed by: [facility], [place], [address] Lymphocyte pct 96.3 % [facility] ([place]) Comment: Interpretive Data Percent cell count reference ranges are not reported, since discordance with absolute values may lead to misinterpretation of CBC data. Current Interpretive Data was last revised on 2017. Testing performed by: [facility], [place], [address] Monocyte pct 0.0 % [facility] ([place]) Comment: Interpretive Data Percent cell count reference ranges are not reported, since discordance with absolute values may lead to misinterpretation of CBC data. Current Interpretive Data was last revised on 2017. Testing performed by: [place], [address] Eosinophil pct 0.0 % [facility] ([place]) Comment: Interpretive Data Percent cell count reference ranges are not reported, since discordance with absolute values may lead to misinterpretation of CBC data. Current Interpretive Data was last revised on 2017. Testing performed by: [place], [address] Basophil pct 0.0 % [facility] ([place]) Comment: Interpretive Data Percent cell count reference ranges are not reported, since discordance with absolute values may lead to misinterpretation of CBC data. Current Interpretive Data was last revised on 2017. Testing performed by: [facility], [place], [address] Blood 05/17/2024 1:20 PM AIRFRAME TECHNICAL OFFICER 05/17/2024 1:36 PM AIRFRAME TECHNICAL OFFICER us Milla Armenta DRYERMAN/WOMAN LAB BLOOD ORDERABLES Final Result [facility] ([place]) [facility] Department [place] [address] * (ABNORMAL) CBC with auto differential (05/17/2024 1:20 PM AIRFRAME TECHNICAL OFFICER) WBC 0.8(C) 3.8 - 9.9 K/cumm Comment: Critical result called to and read back by KAREN ST on 05 17 2024 at 1349 to Stacey Samson. Testing performed by: [place], [address] Hgb 7.0(L) 11.9 - 15.5 g/dL [facility] ([place]) Comment:Testing performed by : [place], [address] Hct 20.4(L) 35.6 - 45.5 % [facility] ([place]) Comment:Testing performed by : [place], [address] Plt 13(C) 150 - 400 K/cumm [facility] ([place]) Comment: Critical result called to and read back by KAREN ST on 05 17 2024 at 1349 to Stacey Samson. Testing performed by: [place], [address] MPV 10.8 9.1 - 12.3 fL [facility] ([place]) Comment:Testing performed by : [facility], [place], [address] RBC 1.97(L) 3.90 - 5.20 M/cumm [facility] ([place]) Comment:Testing performed by : [facility], [place], [place], MCV 103.6(H) 81.3 - 96.4 fL [facility] ([place]) Comment:Testing performed by : [facility], [place], [place], MCH 35.5(H) 27.1 - 33.3 pg [facility] ([place]) Comment:Testing performed by : [place], MCHC 34.3 32.3 - 35.7 g/dL [facility] ([place]) Comment:Testing performed by : [place], [place] CV 13.9 11.1 - 14.9 % [facility] ([place]) Comment:Testing performed by : [facility], [place], R[place] SD 51.5(H) 35.7 - 48.1 fL [facility] ([place]) Comment:Testing performed by : [facility], [place], [address] NRBC abs 0.00 0.00 - 0.01 K/cumm [facility] ([place]) Comment:Testing performed by : [place], [address] Blood 05/17/2024 1:20 PM AIRFRAME TECHNICAL OFFICER 05/17/2024 1:36 PM AIRFRAME TECHNICAL OFFICER us Milla Armenta DRYERMAN/WOMAN LAB BLOOD ORDERABLES Final Result [facility] ([place]) [address] [place] [address] Department [place] [address] * Prepare RBC: 1 Units (05/16/2024 2:12 PM AIRFRAME TECHNICAL OFFICER) Units requested 1 Comment:Testing performed by : [place], [address] Units requested Ready [facility] ([place]) Comment:Testing performed by : [place], [address] Unit Number [id number] Product code [id number] [facility] ([place]) Blood Expiration Date [id number] [facility] ([place]) Product Blood Type (for scanning) 5100 [facility] ([place]) Product Blood Type OPOS [facility] ([place]) Dispense Status DISPENSED [facility] ([place]) Blood 05/16/2024 2:12 PM AIRFRAME TECHNICAL OFFICER 05/16/2024 2:12 PM AIRFRAME TECHNICAL OFFICER us Chalino Chapa MD BLOOD BANK PRODUCT ORDERA BLES Final Result [facility] ([place]) [facility] Department [place] [address] * (ABNORMAL) CBC with auto differential (05/16/2024 10:45 AM AIRFRAME TECHNICAL OFFICER) WBC 0.8(C) 3.8 - 9.9 K/cumm Comment: Critical result called to and read back by YADI JOHNSON RN on 05 16 2024 at 1151 to Mariela Desir. Testing performed by: [place], [address] Hgb 7.5(L) 11.9 - 15.5 g/dL [facility] ([place]) Comment:Testing performed by : [facility], [place], [address] Hct 21.9(L) 35.6 - 45.5 % [facility] ([place]) Comment:Testing performed by : [place], [address] Plt 13(C) 150 - 400 K/cumm [facility] ([place]) Comment: Critical result called to and read back by YADI JOHNSON RN on 05 16 2024 at 1151 to Mariela Desir. Testing performed by: [place], [address] MPV 13.5(H) 9.1 - 12.3 fL [facility] ([place]) Comment:Testing performed by : [place], [address] RBC 2.07(L) 3.90 - 5.20 M/cumm [facility] ([place]) Comment:Testing performed by : [facility], [place], [address] MCV 105.8(H) 81.3 - 96.4 fL [facility] ([place]) Comment:Testing performed by : [facility], [place], MCH 36.2(H) 27.1 - 33.3 pg [facility] ([place]) Comment:Testing performed by : [place], MCHC 34.2 32.3 - 35.7 g/dL [facility] ([place]) Comment:Testing performed by : [place], [place] CV 13.7 11.1 - 14.9 % [facility] ([place]) Comment:Testing performed by : [facility], [place], [address] RDW SD 51.8(H) 35.7 - 48.1 fL [facility] ([place]) Comment:Testing performed by : [place], [address] NRBC abs 0.00 0.00 - 0.01 K/cumm [facility] ([place]) Comment:Testing performed by : [place], [address] Blood 05/16/2024 10:4 5 AM AIRFRAME TECHNICAL OFFICER 05/16/2024 10:48 AM AIRFRAME TECHNICAL OFFICER us Chalino Chapa MD LAB BLOOD ORDERABLES Aylin freedman Result [facility] ([place]) 1 [facility] Department [place] [address] * ABO/Rh (05/16/2024 10:45 AM AIRFRAME TECHNICAL OFFICER) ABO/Rh O Positive Comment:Testing performed by : [place], [address] Blood 05/16/2024 10:4 5 AM AIRFRAME TECHNICAL OFFICER 05/16/2024 12:56 PM AIRFRAME TECHNICAL OFFICER Narrative [facility] ([place]) - 05/16/2024 1:39 PM AIRFRAME TECHNICAL OFFICER witness [id number] Has the patient had Daratumumab or Isatuximab in the past 6 months?->Unknown us Chalino Chapa MD LAB BLOOD BANK TEST ORDER LAITH Final Result [facility] ([place]) 1 [facility] Department [place] [address] * (ABNORMAL) Manual Differential (05/16/2024 10:45 AM AIRFRAME TECHNICAL OFFICER) Differential Manual Comment:Testing performed by : [place], [address] Cells Counted 100 [facility] ([place]) Comment:Testing performed by : [place], [address] Neutrophil abs 0.0(L) 1.5 - 6.5 K/cumm [facility] ([place]) Comment:Testing performed by : [place], [address] Imm gran abs 0.0 0.0 - 0.1 K/cumm [facility] ([place]) Comment:Testing performed by : [place], [address] Lymphocyte abs 0.8 0.8 - 3.3 K/cumm [facility] ([place]) Comment:Testing performed by : [place], [address] Monocyte abs 0.0(L) 0.2 - 0.8 K/cumm [facility] ([place]) Comment:Testing performed by : [place], [address] Eosinophil abs 0.0 0.0 - 0.5 K/cumm [facility] ([place]) Comment:Testing performed by : [place], [address] Neutrophil pct 3.0 % [facility] ([place]) Comment: Interpretive Data Percent cell count reference ranges are not reported, since discordance with absolute values may lead to misinterpretation of CBC data. Current Interpretive Data was last revised on 2017. Testing performed by: [place], [address] Lymphocyte pct 62.0 % [facility] ([place]) Comment: Interpretive Data Percent cell count reference ranges are not reported, since discordance with absolute values may lead to misinterpretation of CBC data. Current Interpretive Data was last revised on 2017. Testing performed by: [facility], [facility], [place], [address] Eosinophil pct 1.0 % [facility] ([place]) Comment: Interpretive Data Percent cell count reference ranges are not reported, since discordance with absolute values may lead to misinterpretation of CBC data. Current Interpretive Data was last revised on 2017. Testing performed by: [facility], [facility], [place], [address] Variant lymph pct 34.0(H) 0.0 - 0.0 % [facility] ([place]) Comment:Testing performed by : [facility], [place], [address] RBC morphology Consistent with RBC Indicies [facility] ([place]) Comment:Testing performed by : [facility], [place], [address] Anisocytosis Slight(A) [facility] ([place]) Comment:Testing performed by : [facility], [place], [address] Platelet estimate Decreased(A) [facility] ([place]) Comment:Testing performed by : [facility], [place], [address] Blood 05/16/2024 10:4 5 AM AIRFRAME TECHNICAL OFFICER 05/16/2024 11:00 AM AIRFRAME TECHNICAL OFFICER us Chalino Chapa MD LAB BLOOD ORDERABLES Aylin freedman Result [facility] ([place]) 1 [facility] Department [place] [address] * Crossmatch (05/16/2024 10:45 AM AIRFRAME TECHNICAL OFFICER) Crossmatch Compatible [facility] ([place]) Unit number for crossmatch [id number] [facility] ([place]) Blood 05/16/2024 10:4 5 AM AIRFRAME TECHNICAL OFFICER 05/16/2024 12:56 PM AIRFRAME TECHNICAL OFFICER us Chalino Chapa MD LAB BLOOD BANK TEST ORDER LAITH Final Result [facility] ([place]) [address] [place] [address] [place] [address] * Antibody screen (05/16/2024 10:45 AM AIRFRAME TECHNICAL OFFICER) Rivera, indirect, Gel Interpretation Negative ABSC Comment:Testing performed by : [facility], [place], [address] Blood 05/16/2024 10:4 5 AM AIRFRAME TECHNICAL OFFICER 05/16/2024 12:56 PM AIRFRAME TECHNICAL OFFICER Narrative [facility] ([place]) - 05/16/2024 1:40 PM AIRFRAME TECHNICAL OFFICER Has the patient had Daratumumab or Isatuximab in the past 6 months?->Unknown us Chalino Chapa MD LAB BLOOD BANK TEST ORDER LAITH Final Result [facility] ([place]) [address] [place] [address] [place] [address] * Transfuse RBC (05/10/2024 1:03 PM AIRFRAME TECHNICAL OFFICER) Blood us Chalino Chapa MD BLOOD TRANSFUSION ORDERAB LES Final Result * Prepare RBC (05/10/2024 11:07 AM AIRFRAME TECHNICAL OFFICER) Unit Number [id number] Product code [id number] [facility] ([place]) Blood Expiration Date [id number] [facility] ([place]) Product Blood Type (for scanning) 5100 [facility] ([place]) Product Blood Type OPOS [facility] ([place]) Dispense Status DISPENSED [facility] ([place]) us Michael Terry MD BLOOD BANK PRODUCT ORDERABLES Final Result Performing Organization Address City/[facility]/ZIP Co de Phone Number [facility] ([place]) 1 [facility] Department [place] [address] * Prepare RBC: 1 Units (05/10/2024 11:07 AM AIRFRAME TECHNICAL OFFICER) Units requested 1 Comment:Testing performed by : [facility], [facility], [place], [address] Units requested Ready EMMY R[facility] ([place]) Comment:Testing performed by : [place], [address] Blood 05/10/2024 11:0 7 AM AIRFRAME TECHNICAL OFFICER 05/10/2024 11:07 AM AIRFRAME TECHNICAL OFFICER Narrative [facility] ([place]) - 05/10/2024 11:07 AM AIRFRAME TECHNICAL OFFICER Are special requirements needed? (All products are leukoreduced and CMV- safe)->No us Chalino Chapa MD BLOOD BANK PRODUCT ORDERA BLES Final Result Performing Organization Address [facility] Co de Phone Number [facility] ([place]) 1 [facility] Department [place] [address] * (ABNORMAL) Differential, auto (05/10/2024 10:00 AM AIRFRAME TECHNICAL OFFICER) Neutrophil abs 0.4(L) 1.5 - 6.5 K/cumm Comment:Testing performed by : [place], [address] Imm gran abs 0.0 0.0 - 0.1 K/cumm [facility] ([place]) Comment:Testing performed by : [place], [address] Lymphocyte abs 0.7(L) 0.8 - 3.3 K/cumm [facility] ([place]) Comment:Testing performed by : [place], [address] Monocyte abs 0.0(L) 0.2 - 0.8 K/cumm [facility] ([place]) Comment:Testing performed by : [facility], [place], [address] Eosinophil abs 0.1 0.0 - 0.5 K/cumm [facility] ([place]) Comment:Testing performed by : [facility], [place], [address] Basophil abs 0.0 0.0 - 0.1 K/cumm [facility] ([place]) Comment:Testing performed by : [place], [address] Neutrophil pct 35.3 % [facility] ([place]) Comment: Interpretive Data Percent cell count reference ranges are not reported, since discordance with absolute values may lead to misinterpretation of CBC data. Current Interpretive Data was last revised on 2017. Testing performed by: [place], [address] Imm gran pct 0.9 % [facility] ([place]) Comment: Interpretive Data Percent cell count reference ranges are not reported, since discordance with absolute values may lead to misinterpretation of CBC data. Current Interpretive Data was last revised on 2017. Testing performed by: [facility], [place], [address] Lymphocyte pct 58.6 % [facility] ([place]) Comment: Interpretive Data Percent cell count reference ranges are not reported, since discordance with absolute values may lead to misinterpretation of CBC data. Current Interpretive Data was last revised on 2017. Testing performed by: [place], [address] Monocyte pct 0.9 % [facility] ([place]) Comment: Interpretive Data Percent cell count reference ranges are not reported, since discordance with absolute values may lead to misinterpretation of CBC data. Current Interpretive Data was last revised on 2017. Testing performed by: [place], [address] Eosinophil pct 4.3 % [facility] ([place]) Comment: Interpretive Data Percent cell count reference ranges are not reported, since discordance with absolute values may lead to misinterpretation of CBC data. Current Interpretive Data was last revised on 2017. Testing performed by: [place], [address] Basophil pct 0.0 % [facility] ([place]) Comment: Interpretive Data Percent cell count reference ranges are not reported, since discordance with absolute values may lead to misinterpretation of CBC data. Current Interpretive Data was last revised on 2017. Testing performed by: [place], [address] Blood 05/10/2024 10:0 0 AM AIRFRAME TECHNICAL OFFICER 05/10/2024 10:01 AM AIRFRAME TECHNICAL OFFICER Chalino Chapa MD LAB BLOOD ORDERABLES Aylin freedman Result [facility] ([place]) [address] [place] [address] Department [place] [address] * (ABNORMAL) CBC with auto differential (05/10/2024 10:00 AM AIRFRAME TECHNICAL OFFICER) WBC 1.2(L) 3.8 - 9.9 K/cumm Comment:Testing performed by : [place], [address] Hgb 7.0(L) 11.9 - 15.5 g/dL [facility] ([place]) Comment:Testing performed by : [place], [address] Hct 20.6(L) 35.6 - 45.5 % [facility] ([place]) Comment:Testing performed by : [place], [address] Plt 65(L) 150 - 400 K/cumm [facility] ([place]) Comment:Testing performed by : [place], [address] MPV 11.1 9.1 - 12.3 fL [facility] ([place]) Comment:Testing performed by : [place], [address] RBC 1.91(L) 3.90 - 5.20 M/cumm [facility] ([place]) Comment:Testing performed by : [place], [address] MCV 107.9(H) 81.3 - 96.4 fL [facility] ([place]) Comment:Testing performed by : [place], [address] MCH 36.6(H) 27.1 - 33.3 pg [facility] ([place]) Comment:Testing performed by : [facility], [facility], [place], [address] MCHC 34.0 32.3 - 35.7 g/dL [facility] ([place]) Comment:Testing performed by : [facility], [place], [address] RDW CV 14.4 11.1 - 14.9 % [facility] ([place]) Comment:Testing performed by : [facility], [facility], [place], [address] RDW SD 56.9(H) 35.7 - 48.1 fL [facility] ([place]) Comment:Testing performed by : [facility], [place], [address] NRBC abs Not Measured 0.00 - 0.01 K/cumm [facility] ([place]) Comment:Testing performed by : [facility], [place], [address] Blood 05/10/2024 10:0 0 AM AIRFRAME TECHNICAL OFFICER 05/10/2024 10:01 AM AIRFRAME TECHNICAL OFFICER us Chalino Chapa MD LAB BLOOD ORDERABLES Aylin l Result Performing Organization Address City/[facility]/ZIP Co de Phone Number [facility] ([place]) 1 [facility] Department [place] [address] * ABO/Rh (05/10/2024 10:00 AM AIRFRAME TECHNICAL OFFICER) ABO/Rh O Positive Comment:Testing performed by : [facility], [facility], [place], [address] Blood 05/10/2024 10:0 0 AM AIRFRAME TECHNICAL OFFICER 05/10/2024 10:18 AM AIRFRAME TECHNICAL OFFICER Narrative [facility] ([place]) - 05/10/2024 10:54 AM AIRFRAME TECHNICAL OFFICER drawn by Ynes Jensen, witnessed by Karen Donaldson Has the patient had Daratumumab or Isatuximab in the past 6 months?->Unknown us Chalino Chapa MD LAB BLOOD BANK TEST ORDER LAITH Final Result [facility] ([place]) 1 [facility] [place] [address] * Crossmatch (05/10/2024 10:00 AM AIRFRAME TECHNICAL OFFICER) Pathologist [facility] Crossmatch Compatible [facility] Silva ([place]) Unit number for crossmatch [id number] [facility] ([place]) Blood 05/10/2024 10:0 0 AM AIRFRAME TECHNICAL OFFICER 05/10/2024 10:18 AM AIRFRAME TECHNICAL OFFICER us Michael Terry MD LAB BLOOD BANK TEST ORDERABLE S Final Result Performing Organization Address City/[facility] Co de Phone Number [facility] ([place]) [address] [place] [address] [place] [address] * Antibody screen (05/10/2024 10:00 AM AIRFRAME TECHNICAL OFFICER) [facility] Rivera, indirect, Gel Interpretation Negative ABSC Comment:Testing performed by : [facility], [facility], [place], [address] Blood 05/10/2024 10:0 0 AM AIRFRAME TECHNICAL OFFICER 05/10/2024 10:18 AM AIRFRAME TECHNICAL OFFICER Narrative [facility] ([place]) - 05/10/2024 10:54 AM AIRFRAME TECHNICAL OFFICER Has the patient had Daratumumab or Isatuximab in the past 6 months?->Unknown us Chalino Chapa MD LAB BLOOD BANK TEST ORDER LAITH Final Result Performing Organization Address City/[facility]/ZIP Co de Phone Number [facility] ([place]) [address] [place] [address] [place] [address] * eGFR (04/29/2024 8:50 AM AIRFRAME TECHNICAL OFFICER) [facility] eGFR 90 >=60 mL/min/1. 73 m2 Comment: [...] was last reviewed 2021. Testing performed by: [facility], [facility], [place], [address] Blood 04/29/2024 8:50 AM AIRFRAME TECHNICAL OFFICER 04/29/2024 9:03 AM AIRFRAME TECHNICAL OFFICER Zoraida Villegas DRYERMAN/WOMAN LAB BLOOD ORDERABLES Final Result [facility] ([place]) 1 [facility] [place] [address] * (ABNORMAL) Differential, auto (04/29/2024 8:50 AM AIRFRAME TECHNICAL OFFICER) Neutrophil abs 1.2(L) 1.5 - 6.5 K/cumm Comment:Testing performed by : [facility] Infusion [facility] [address], Medical Office [place] [address], [place] [address] Imm gran abs 0.0 0.0 - 0.1 K/cumm [facility] ([place]) Comment:Testing performed by : [facility] [address], Medical Office [facility] [address], [place] [address] Lymphocyte abs 1.0 0.8 - 3.3 K/cumm [facility] ([place]) Comment:Testing performed by : [facility] [address], Medical Office [facility] [address], [place] [address] Monocyte abs 0.3 0.2 - 0.8 K/cumm [facility] ([place]) Comment:Testing performed by : [facility] [address], Medical Office [facility] [address], [place] [address] Eosinophil abs 0.1 0.0 - 0.5 K/cumm [facility] ([place]) Comment:Testing performed by : [facility] [address], Medical Office [facility] [address], [place] [address] Basophil abs 0.0 0.0 - 0.1 K/cumm [facility] ([place]) Comment:Testing performed by : [facility] [address], Medical Office [facility] [address], [place] [address] Neutrophil pct 44.9 % [facility] ([place]) Comment: Interpretive Data Percent cell count reference ranges are not reported, since discordance with absolute values may lead to misinterpretation of CBC data. Current Interpretive Data was last revised on 2022. Testing performed by: [facility] [address], Medical Office [facility] [address], [place] [address] Imm gran pct 0.7 % [facility] ([place]) Comment: Interpretive Data Percent cell count reference ranges are not reported, since discordance with absolute values may lead to misinterpretation of CBC data. Current Interpretive Data was last revised on 2022. Testing performed by: [facility] [address], Medical Office [facility] [address], [place] [address] Lymphocyte pct 38.4 % [facility] ([place]) Comment: Interpretive Data Percent cell count reference ranges are not reported, since discordance with absolute values may lead to misinterpretation of CBC data. Current Interpretive Data was last revised on 2022. Testing performed by: [facility] [address], Medical Office [facility] [address], [place] [address] Monocyte pct 11.9 % [facility] ([place]) Comment: Interpretive Data Percent cell count reference ranges are not reported, since discordance with absolute values may lead to misinterpretation of CBC data. Current Interpretive Data was last revised on 2022. Testing performed by: [facility] [address], Medical Office [facility] [address], [place] [address] Eosinophil pct 3.0 % [facility] ([place]) Comment: Interpretive Data Percent cell count reference ranges are not reported, since discordance with absolute values may lead to misinterpretation of CBC data. Current Interpretive Data was last revised on 2022. Testing performed by: [facility] [address], Medical Office [facility] [address], [place] [address] Basophil pct 1.1 % [facility] ([place]) Comment: Interpretive Data Percent cell count reference ranges are not reported, since discordance with absolute values may lead to misinterpretation of CBC data. Current Interpretive Data was last revised on 2022. Testing performed by: [facility] [address], Medical Office [facility] [address], [place] [address] Blood 04/29/2024 8:50 AM AIRFRAME TECHNICAL OFFICER 04/29/2024 8:53 AM AIRFRAME TECHNICAL OFFICER Zoraida Villegas DRYERMAN/WOMAN LAB BLOOD ORDERABLES Final Result [facility] ([place]) 1 [facility] [place] [address] * (ABNORMAL) CBC with auto differential (04/29/2024 8:50 AM AIRFRAME TECHNICAL OFFICER) WBC 2.7(L) 3.8 - 9.9 K/cumm Comment:Testing performed by : [facility] [address], Medical Office [facility] [address], [place] [address] Hgb 10.2(L) 11.9 - 15.5 g/dL [facility] ([place]) Comment:Testing performed by : [facility] [address], Medical Office [facility] [address], [place] [address] Hct 31.2(L) 35.6 - 45.5 % [facility] ([place]) Comment:Testing performed by : [facility] [address], Medical Office [facility] [address], [place] [address] Plt 163 150 - 400 K/cumm [facility] ([place]) Comment:Testing performed by : [facility] [address], Medical Office [facility] [address], [place] [address] MPV 10.5 9.1 - 12.3 fL [facility] ([place]) Comment:Testing performed by : [facility] [address], Medical Office [facility] [address], [place] [address] RBC 2.87(L) 3.90 - 5.20 M/cumm [facility] ([place]) Comment:Testing performed by : [facility] [address], Medical Office [facility] [address], [place] [address] MCV 108.7(H) 81.3 - 96.4 fL [facility] ([place]) Comment:Testing performed by : [facility] [address], Medical Office [facility] [address], [place] [address] MCH 35.5(H) 27.1 - 33.3 pg [facility] ([place]) Comment:Testing performed by : [facility] [address], Medical Office [facility] [address], [place] [address] MCHC 32.7 32.3 - 35.7 g/dL [facility] ([place]) Comment:Testing performed by : [facility] [address], Medical Office [facility] [address], [place] [address] RDW CV 15.5(H) 11.1 - 14.9 % [facility] ([place]) Comment:Testing performed by : [facility] [address], Medical Office [facility] [address], [place] [address] RDW SD 62.1(H) 35.7 - 48.1 fL [facility] ([place]) Comment:Testing performed by : [facility] [address], Medical Office [facility] [address], [place] [address] NRBC abs Not Measured 0.00 - 0.01 K/cumm [facility] ([place]) Comment:Testing performed by : [facility] [address], Medical Office [facility] [address], [place] [address] Blood 04/29/2024 8:50 AM AIRFRAME TECHNICAL OFFICER 04/29/2024 8:53 AM AIRFRAME TECHNICAL OFFICER Zoraida Villegas NP LAB BLOOD ORDERABLES Final Result [facility] ([place]) 1 [facility] [place] [address] * (ABNORMAL) Comprehensive metabolic panel (04/29/2024 8:50 AM AIRFRAME TECHNICAL OFFICER) Sodium 141 135 - 145 mmol/L Comment:Testing performed by : [facility], [place], [address] Potassium, pl 4.0 3.3 - 4.9 mmol/L [facility] ([place]) Comment:Testing performed by : [facility], [place], [address] Chloride 102 97 - 110 mmol/L [facility] ([place]) Comment:Testing performed by : [facility], [place], [address] CO2 31 22 - 32 mmol/L [facility] ([place]) Comment:Testing performed by : [facility], [place], [address] Anion gap 7 2 - 15 mmol/L [facility] ([place]) Comment:Testing performed by : [facility], [place], [address] BUN 14 6 - 25 mg/dL [facility] ([place]) Comment:Testing performed by : [facility], [place], [address] Creatinine 0.57(L) 0.60 - 1.10 mg/dL [facility] ([place]) Comment:Testing performed by : [facility], [place], [address] Glucose 109 70 - 199 mg/dL [facility] ([place]) Comment: Interpretive Data Fasting glucose >/= 126 [...] was last revised 2022. Testing performed by: [facility], [place], [address] Calcium 9.7 8.5 - 10.3 mg/dL [facility] ([place]) Comment:Testing performed by : [facility], [place], [address] Bilirubin, total 0.7 0.1 - 1.2 mg/dL [facility] ([place]) Comment:Testing performed by : [facility], [place], [address] Protein, pl 6.7 6.5 - 8.5 g/dL [facility] ([place]) Comment:Testing performed by : [facility], [place], [address] Albumin 4.5 3.5 - 5.0 g/dL [facility] ([place]) Comment:Testing performed by : [facility], [place], [address] Alk phos 121 40 - 130 Units/L [facility] ([place]) Comment:Testing performed by : [place], [address] ALT 61(H) 7 - 45 Units/L [facility] ([place] Comment:Testing performed by : [place], [address] AST 28 10 - 45 Units/L [facility] ([place]) Comment:Testing performed by : [facility], [place], [address] Blood 04/29/2024 8:50 AM AIRFRAME TECHNICAL OFFICER 04/29/2024 9:03 AM AIRFRAME TECHNICAL OFFICER Zoraida Villegas DRYERMAN/WOMAN LAB BLOOD ORDERABLES Final Result [facility] ([place]) 1 [facility] [place] [address] * eGFR (04/18/2024 10:00 AM AIRFRAME TECHNICAL OFFICER) eGFR >90 >=60 mL/min/1. 73 m2 Comment: [...] was last reviewed 2021. Testing performed by: [facility], [facility], [place], [address] Blood 04/18/2024 10:0 0 AM AIRFRAME TECHNICAL OFFICER 04/18/2024 10:47 AM AIRFRAME TECHNICAL OFFICER us Chalino Chapa MD LAB BLOOD ORDERABLES Aylin freedman Result [facility] ROGERS ([place]) 1 [facility] [place] [address] * (ABNORMAL) CBC with auto differential (04/18/2024 10:00 AM AIRFRAME TECHNICAL OFFICER) WBC 3.7(L) 3.8 - 9.9 K/cumm Comment:Testing performed by : [facility] [address], Medical Office [facility] [address], [place] [address] Hgb 10.7(L) 11.9 - 15.5 g/dL SABRA ROGERS ([place]) Comment:Testing performed by : [facility] [address], Medical Office [facility] [address], [place] [address] Hct 32.8(L) 35.6 - 45.5 % SABRA ROGERS ([place]) Comment:Testing performed by : [facility] [address], Medical Office [facility] [address], [place] [address] Plt 171 150 - 400 K/cumm SABRA ROGERS ([place]) Comment:Testing performed by : [facility] [address], Medical Office dg [address], [place] [address] MPV 10.5 9.1 - 12.3 fL SABRA ROGERS ([place]) Comment:Testing performed by : [facility] [address], Medical Office [address], [place] [address] RBC 3.06(L) 3.90 - 5.20 M/cumm [facility] ([place]) Comment:Testing performed by : [facility] [address], Medical Office [facility] [address], [place] [address] MCV 107.2(H) 81.3 - 96.4 fL [facility] ([place]) Comment:Testing performed by : [facility] [address], Medical Office [facility] [address] [facility] [address], [place] [address] MCH 35.0(H) 27.1 - 33.3 pg [facility] ([place]) Comment:Testing performed by : [facility] [address], Medical Office [facility] [address] [facility] [address], [place] [address] MCHC 32.6 32.3 - 35.7 g/dL [facility] ([place]) Comment:Testing performed by : [facility] [address], Medical Office [facility] [address] [facility] [address], [place] [address] RDW CV 14.6 11.1 - 14.9 % [facility] ([place]) Comment:Testing performed by : [facility] [address], Medical Office [facility] [address] [facility] [address], [place] [address] RDW SD 57.7(H) 35.7 - 48.1 fL [facility] ([place]) Comment:Testing performed by : [facility] [address], Medical Office [facility] [address] [facility] [address], [place] [address] NRBC abs Not Measured 0.00 - 0.01 K/cumm [facility] ([place]) Comment:Testing performed by : [facility] [address], Medical Office [facility] [address] [facility] [address], [place] [address] Blood 04/18/2024 10:0 0 AM AIRFRAME TECHNICAL OFFICER 04/18/2024 10:03 AM AIRFRAME TECHNICAL OFFICER us Chalino Chapa MD LAB BLOOD ORDERABLES Aylin freedman Result [facility] ([place]) 1 [facility] Department [place] [address] * (ABNORMAL) Manual Differential (04/18/2024 10:00 AM AIRFRAME TECHNICAL OFFICER) Differential Manual Comment:Testing performed by : [facility], [facility], [place], [address] Cells Counted 100 [facility] ([place]) Comment:Testing performed by : [facility], [facility], [place], [address] Neutrophil abs 2.1 1.5 - 6.5 K/cumm [facility] ([place]) Comment:Testing performed by : [facility], [facility], [place], [address] Imm gran abs 0.0 0.0 - 0.1 K/cumm [facility] ([place]) Comment:Testing performed by : [facility], [facility], [place], [address] Lymphocyte abs 1.6 0.8 - 3.3 K/cumm [facility] ([place]) Comment:Testing performed by : [facility], [facility], [place], [address] Monocyte abs 0.0(L) 0.2 - 0.8 K/cumm [facility] ([place]) Comment:Testing performed by : [facility], [facility], [place], [address] Neutrophil pct 55.0 % [facility] ([place]) Comment: Interpretive Data Percent cell count reference ranges are not reported, since discordance with absolute values may lead to misinterpretation of CBC data. Current Interpretive Data was last revised on 2017. Testing performed by: [facility], [facility], [place], [address] Lymphocyte pct 38.0 % [facility] ([place]) Comment: Interpretive Data Percent cell count reference ranges are not reported, since discordance with absolute values may lead to misinterpretation of CBC data. Current Interpretive Data was last revised on 2017. Testing performed by: [facility], [facility], [place], [address] Monocyte pct 1.0 % [facility] ([place]) Comment: Interpretive Data Percent cell count reference ranges are not reported, since discordance with absolute values may lead to misinterpretation of CBC data. Current Interpretive Data was last revised on 2017. Testing performed by: [facility], [place], [address] Band Neutrophil pct 1.0 0.0 - 5.0 % [facility] ([place]) Comment:Testing performed by : [facility], [place], [address] Promyelocyte pct 1.0(H) 0.0 - 0.0 % [facility] ([place]) Comment:Testing performed by : [facility], [facility], [place], [address] Variant lymph pct 4.0(H) 0.0 - 0.0 % [facility] ([place]) Comment:Testing performed by : [facility], [place], [address] Blood 04/18/2024 10:0 0 AM AIRFRAME TECHNICAL OFFICER 04/18/2024 10:47 AM AIRFRAME TECHNICAL OFFICER us Chalino Chapa MD LAB BLOOD ORDERABLES Aylin freedman Result [facility] ([place]) 1 [facility] Department [place] [address] * (ABNORMAL) Comprehensive metabolic panel (04/18/2024 10:00 AM AIRFRAME TECHNICAL OFFICER) Sodium 141 135 - 145 mmol/L Comment:Testing performed by : [facility], [place], [address] Potassium, pl 4.3 3.3 - 4.9 mmol/L [facility] ([place]) Comment:Testing performed by : [facility], [place], [address] Chloride 103 97 - 110 mmol/L [facility] ([place]) Comment:Testing performed by : [facility], [place], [address] CO2 31 22 - 32 mmol/L [facility] ([place]) Comment:Testing performed by : [facility], [place], [address] Anion gap 8 2 - 15 mmol/L [facility] ([place]) Comment:Testing performed by : [facility], [place], [address] BUN 15 6 - 25 mg/dL [facility] ([place]) Comment:Testing performed by : [facility], [place], [address] Creatinine 0.51(L) 0.60 - 1.10 mg/dL [facility] ([place]) Comment:Testing performed by : [facility], [place], [address] Glucose 141 70 - 199 mg/dL [facility] ([place]) Comment: Interpretive Data Fasting glucose >/= 126 [...] was last revised 2022. Testing performed by: [facility], [place], [address] Calcium 9.5 8.5 - 10.3 mg/dL [facility] ([place]) Comment:Testing performed by : [place], [address] Bilirubin, total 0.4 0.1 - 1.2 mg/dL [facility] ([place]) Comment:Testing performed by : [facility], [place], [address] Protein, pl 6.6 6.5 - 8.5 g/dL [facility] ([place]) Comment:Testing performed by : [facility], [place], [address] Albumin 4.2 3.5 - 5.0 g/dL [facility] ([place]) Comment:Testing performed by : [place], [address] Alk phos 118 40 - 130 Units/L [facility] ([place]) Comment:Testing performed by : [facility], [place], [address] ALT 88(H) 7 - 45 Units/L [facility] ([place]) Comment:Testing performed by : [place], [address] AST 35 10 - 45 Units/L [facility] ([place]) Comment:Testing performed by : [facility], [place], [address] Blood 04/18/2024 10:0 0 AM AIRFRAME TECHNICAL OFFICER 04/18/2024 10:47 AM AIRFRAME TECHNICAL OFFICER us Chalino Chapa MD LAB BLOOD ORDERABLES Aylin l Result SABRA ROGERS [place]) 1 [facility] Department of Laboratories [place], [place] [id number] * PA ARTHROCENTESIS ASPIR&/INJ MAJOR JT/BURSA W/US (04/17/2024 2:00 PM AIRFRAME TECHNICAL OFFICER) Narrative Shadi Tan DO - 04/17/2024 2:00 PM AIRFRAME TECHNICAL OFFICER Shadi Tan DO 04/17/2024 2:55 PM Large [...] Venessa Villar Performing physician: AYAN Cifuentes DO, SUSANM Reason for procedure: Right osteoarthritis knee Patient [...] mL us Shadi Tan DO IN CLINIC/BEDSIDE JOAN ALFORD Edited Result - Final * eGFR (04/04/2024 10:35 AM AIRFRAME TECHNICAL OFFICER) eGFR >90 >=60 mL/min/1. 73 m2 Comment: [...] was last reviewed 2021. Testing performed by: [place], [address] Blood 04/04/2024 10:3 5 AM AIRFRAME TECHNICAL OFFICER 04/04/2024 11:16 AM AIRFRAME TECHNICAL OFFICER us Zoraida Villegas DRYERMAN/WOMAN LAB BLOOD ORDERABLES Final Result SABRA ROGERS ([place]) 1 [facility] Department [place] [address] * Differential, auto (04/04/2024 10:35 AM AIRFRAME TECHNICAL OFFICER) Neutrophil abs 1.6 1.5 - 6.5 K/cumm Comment:Testing performed by : [place], [address] Imm gran abs 0.0 0.0 - 0.1 K/cumm SABRA ROGERS ([place]) Comment:Testing performed by : [facility], [facility], [place], [address] Lymphocyte abs 1.2 0.8 - 3.3 K/cumm [facility] ([place]) Comment:Testing performed by : [facility], [facility], [place], [address] Monocyte abs 0.3 0.2 - 0.8 K/cumm [facility] ([place]) Comment:Testing performed by : [facility], [facility], [place], [address] Eosinophil abs 0.1 0.0 - 0.5 K/cumm [facility] ([place]) Comment:Testing performed by : [facility], [facility], [place], [address] Basophil abs 0.0 0.0 - 0.1 K/cumm [facility] ([place]) Comment:Testing performed by : [facility], [place], [address] Neutrophil pct 50.0 % [facility] ([place]) Comment: Interpretive Data Percent cell count reference ranges are not reported, since discordance with absolute values may lead to misinterpretation of CBC data. Current Interpretive Data was last revised on 2017. Testing performed by: [place], [address] Imm gran pct 0.6 % [facility] ([place]) Comment: Interpretive Data Percent cell count reference ranges are not reported, since discordance with absolute values may lead to misinterpretation of CBC data. Current Interpretive Data was last revised on 2017. Testing performed by: [place], [address] Lymphocyte pct 36.4 % [facility] ([place]) Comment: Interpretive Data Percent cell count reference ranges are not reported, since discordance with absolute values may lead to misinterpretation of CBC data. Current Interpretive Data was last revised on 2017. Testing performed by: [place], [address] Monocyte pct 8.9 % [facility] ([place]) Comment: Interpretive Data Percent cell count reference ranges are not reported, since discordance with absolute values may lead to misinterpretation of CBC data. Current Interpretive Data was last revised on 2017. Testing performed by: [facility], [place], [address] Eosinophil pct 3.5 % [facility]MAXWELL R [facility] ([place]) Comment: Interpretive Data Percent cell count reference ranges are not reported, since discordance with absolute values may lead to misinterpretation of CBC data. Current Interpretive Data was last revised on 2017. Testing performed by: [facility], [facility], [place], [address] Basophil pct 0.6 % [facility] ([place]) Comment: Interpretive Data Percent cell count reference ranges are not reported, since discordance with absolute values may lead to misinterpretation of CBC data. Current Interpretive Data was last revised on 2017. Testing performed by: [facility], [facility], [place], [address] Blood 04/04/2024 10:3 5 AM AIRFRAME TECHNICAL OFFICER 04/04/2024 10:40 AM AIRFRAME TECHNICAL OFFICER Zoraida Villegas DRYERMAN/WOMAN LAB BLOOD ORDERABLES Final Result SABRA ROGERS ([place]) 1 [facility] Department [place] [address] * (ABNORMAL) CBC with auto differential (04/04/2024 10:35 AM AIRFRAME TECHNICAL OFFICER) WBC 3.1(L) 3.8 - 9.9 K/cumm Comment:Testing performed by : [facility] [address], Medical Office [address], [place] [address] Hgb 11.2(L) 11.9 - 15.5 g/dL [facility] ([place]) Comment:Testing performed by : [facility] [address], Medical Office [address], [place] [address] Hct 34.6(L) 35.6 - 45.5 % [facility] ([place]) Comment:Testing performed by : [facility] [address], Medical Office [address], [place] [address] Plt 129(L) 150 - 400 K/cumm SABRA ROGERS ([place]) Comment:Testing performed by : [facility] [address], Medical Office [address], [place] [address] MPV 9.0(L) 9.1 - 12.3 fL [facility] ([place]) Comment:Testing performed by : [facility] [address], Medical Office [facility] [address], [place] [address] RBC 3.24(L) 3.90 - 5.20 M/cumm [facility] ([place]) Comment:Testing performed by : [facility] [address], Medical Office [facility] [address], [place] [address] MCV 106.8(H) 81.3 - 96.4 fL [facility] ([place]) Comment:Testing performed by : [facility] [address], Medical Office [facility] [address], [place] [address] MCH 34.6(H) 27.1 - 33.3 pg [facility] ([place]) Comment:Testing performed by : [facility] [address], Medical Office [facility] [address], [place] [address] MCHC 32.4 32.3 - 35.7 g/dL [facility] ([place]) Comment:Testing performed by : [facility] [address], Medical Office [facility] [address], [place] [address] RDW CV 14.2 11.1 - 14.9 % [facility] ([place]) Comment:Testing performed by : [facility] [address], Medical Office [facility] [address], [place] [address] RDW SD 55.2(H) 35.7 - 48.1 fL [facility] ([place]) Comment:Testing performed by : [facility] [address], Medical Office [facility] [address], [place] [address] NRBC abs Not Measured 0.00 - 0.01 K/cumm [facility] ([place]) Comment:Testing performed by : [facility] [address], Medical Office [facility] [address], [place] [address] Blood 04/04/2024 10:3 5 AM AIRFRAME TECHNICAL OFFICER 04/04/2024 10:40 AM AIRFRAME TECHNICAL OFFICER Zoraida Villegas DRYERMAN/WOMAN LAB BLOOD ORDERABLES Final Result [facility] ([place]) 1 [facility] Department [place] [address] * (ABNORMAL) Comprehensive metabolic panel (04/04/2024 10:35 AM AIRFRAME TECHNICAL OFFICER) Sodium 142 135 - 145 mmol/L Comment:Testing performed by : [facility], [facility], [place], [address] Potassium, pl 3.8 3.3 - 4.9 mmol/L [facility] ([place]) Comment:Testing performed by : [facility], [place], [address] Chloride 103 97 - 110 mmol/L [facility] ([place]) Comment:Testing performed by : [facility], [facility], [place], [address] CO2 32 22 - 32 mmol/L [facility] ([place]) Comment:Testing performed by : [facility], [place], [address] Anion gap 8 2 - 15 mmol/L [facility] ([place]) Comment:Testing performed by : [facility], [place], [address] BUN 14 6 - 25 mg/dL [facility] ([place]) Comment:Testing performed by : [facility], [place], [address] Creatinine 0.46(L) 0.60 - 1.10 mg/dL [facility] ([place]) Comment:Testing performed by : [facility], [place], [address] Glucose 134 70 - 199 mg/dL [facility] ([place]) [...] was last revised 2022. Testing performed by: [facility], [place], [address] Calcium 9.7 8.5 - 10.3 mg/dL [facility] ([place]) Comment:Testing performed by : [facility], [place], [address] Bilirubin, total 0.4 0.1 - 1.2 mg/dL [facility] ([place]) Comment:Testing performed by : [facility], [place], [address] Protein, pl 6.8 6.5 - 8.5 g/dL [facility] ([place]) Comment:Testing performed by : [facility], [facility], [place], [address] Albumin 4.3 3.5 - 5.0 g/dL [facility] ([place]) Comment:Testing performed by : [facility], [place], [address] Alk phos 129 40 - 130 Units/L [facility] ([place]) Comment:Testing performed by : [facility], [place], [address] ALT 53(H) 7 - 45 Units/L [facility] ([place]) Comment:Testing performed by : [facility], [place], [address] AST 25 10 - 45 Units/L [facility] ([place]) Comment:Testing performed by : [place], [address] Blood 04/04/2024 10:3 5 AM AIRFRAME TECHNICAL OFFICER 04/04/2024 11:16 AM AIRFRAME TECHNICAL OFFICER Zoraida Villegas DRYERMAN/WOMAN LAB BLOOD ORDERABLES Final Result [facility] ([place]) 1 [facility] [place] [address] * Differential, auto (03/21/2024 10:40 AM AIRFRAME TECHNICAL OFFICER) Neutrophil abs 1.9 1.5 - 6.5 K/cumm Comment:Testing performed by : [facility] [place], [address], Medical Office [address], [place] [address] Imm gran abs 0.0 0.0 - 0.1 K/cumm [facility] ([place]) Comment:Testing performed by : [facility] [address], Medical Office [facility] [address], [place] [address] Lymphocyte abs 1.5 0.8 - 3.3 K/cumm [facility] ([place]) Comment:Testing performed by : [facility] [address], Medical Office [facility] [address], [place] [address] Monocyte abs 0.4 0.2 - 0.8 K/cumm [facility] ([place]) Comment:Testing performed by : [facility] [address], Medical Office [facility] [address], [place] [address] Eosinophil abs 0.1 0.0 - 0.5 K/cumm [facility] ([place]) Comment:Testing performed by : [facility] [address], Medical Office [facility] [address], [place] [address] Basophil abs 0.0 0.0 - 0.1 K/cumm [facility] ([place]) Comment:Testing performed by : [facility] [address], Medical Office [facility] [address], [place] [address] Neutrophil pct 48.7 % [facility] ([place]) Comment: Interpretive Data Percent cell count reference ranges are not reported, since discordance with absolute values may lead to misinterpretation of CBC data. Current Interpretive Data was last revised on 2022. Testing performed by: [facility] [address], Medical Office [facility] [address], [place] [address] Imm gran pct 0.3 % [facility] ([place]) Comment: Interpretive Data Percent cell count reference ranges are not reported, since discordance with absolute values may lead to misinterpretation of CBC data. Current Interpretive Data was last revised on 2022. Testing performed by: [facility] [address], Medical Office [facility] [address], [place] [address] Lymphocyte pct 37.7 % [facility] ([place]) Comment: Interpretive Data Percent cell count reference ranges are not reported, since discordance with absolute values may lead to misinterpretation of CBC data. Current Interpretive Data was last revised on 2022. Testing performed by: [facility] [address], Medical Office [facility] [address], [place] [address] Monocyte pct 8.8 % SABRA ROGERS ([place]) Comment: Interpretive Data Percent cell count reference ranges are not reported, since discordance with absolute values may lead to misinterpretation of CBC data. Current Interpretive Data was last revised on 2022. Testing performed by: [facility] [address], Medical Office [facility] [address], [place] [address] Eosinophil pct 3.5 % EMELINA ROGERS ([place]) Comment: Interpretive Data Percent cell count reference ranges are not reported, since discordance with absolute values may lead to misinterpretation of CBC data. Current Interpretive Data was last revised on 2022. Testing performed by: [facility] [address], Medical Office [facility] [address], [place] [address] Basophil pct 1.0 % SABRA ROGERS ([place]) Comment: Interpretive Data Percent cell count reference ranges are not reported, since discordance with absolute values may lead to misinterpretation of CBC data. Current Interpretive Data was last revised on 2022. Testing performed by: [facility] [address], Medical Office [facility] [address], [place] [address] Blood 03/21/2024 10:4 0 AM AIRFRAME TECHNICAL OFFICER 03/21/2024 10:45 AM AIRFRAME TECHNICAL OFFICER Zoraida Villegas DRYERMAN/WOMAN LAB BLOOD ORDERABLES Final Result SABRA ROGERS ([place]) 1 [facility] [place] [address] * (ABNORMAL) CBC with auto differential (03/21/2024 10:40 AM AIRFRAME TECHNICAL OFFICER) WBC 4.0 3.8 - 9.9 K/cumm Comment:Testing performed by : [facility] [address], Medical Office [facility] [address], [place] [address] Hgb 12.2 11.9 - 15.5 g/dL SABRA ROGERS ([place]) Comment:Testing performed by : [facility] [address], Medical Office [facility] [address], [place] [address] Hct 37.8 35.6 - 45.5 % [facility] ([place]) Comment:Testing performed by : [facility] [address], Medical Office [facility] [address], [place] [address] Plt 151 150 - 400 K/cumm [facility] ([place]) Comment:Testing performed by : [facility] [address], Medical Office [facility] [address], [place] [address] MPV 10.7 9.1 - 12.3 fL [facility] ([place]) Comment:Testing performed by : [facility] [address], Medical Office [facility] [address], [place] [address] RBC 3.55(L) 3.90 - 5.20 M/cumm [facility] ([place]) Comment:Testing performed by : [facility] [address], Medical Office [facility] [address], [place] [address] MCV 106.5(H) 81.3 - 96.4 fL [facility] ([place]) Comment:Testing performed by : [facility] [address], Medical Office [facility] [address], [place] [address] MCH 34.4(H) 27.1 - 33.3 pg [facility] ([place]) Comment:Testing performed by : [facility] [address], Medical Office [facility] [address], [place] [address] MCHC 32.3 32.3 - 35.7 g/dL [facility] ([place]) Comment:Testing performed by : [facility] [address], Medical Office [facility] [address], [place] [address] RDW CV 14.1 11.1 - 14.9 % [facility] ([place]) Comment:Testing performed by : [facility] [address], Medical Office [facility] [address], [place] [address] RDW SD 55.9(H) 35.7 - 48.1 fL [facility] ([place]) Comment:Testing performed by : [facility] [address], Medical Office [address], [place] [address] NRBC abs Not Measured 0.00 - 0.01 K/cumm [facility] ([place]) Comment:Testing performed by : [facility] [place], 4 [facility], Medical Office [address], [place] [address] Blood 03/21/2024 10:4 0 AM AIRFRAME TECHNICAL OFFICER 03/21/2024 10:45 AM AIRFRAME TECHNICAL OFFICER us Zoraida Villegas NP LAB BLOOD ORDERABLES Final Result Performing Organization Address City/[facility]/ZIP Co de Phone Number SABRA ROGERS ([place]) 1 [facility] Department [place] [address] * eGFR (03/07/2024 9:45 AM AIRFRAME TECHNICAL OFFICER) eGFR >90 >=60 mL/min/1. 73 m2 Comment: [...] was last reviewed 2021. Testing performed by: [facility], [address], [place], [address] Blood 03/07/2024 9:45 AM AIRFRAME TECHNICAL OFFICER 03/07/2024 9:59 AM AIRFRAME TECHNICAL OFFICER us Chalino Chapa MD LAB BLOOD ORDERABLES Aylin l Result SABRA ROGERS ([place]) 1 [facility] Department [place] [address] * (ABNORMAL) Comprehensive metabolic panel (03/07/2024 9:45 AM AIRFRAME TECHNICAL OFFICER) Sodium 142 135 - 145 mmol/L Comment:Testing performed by : [facility], [place], [address] Potassium, pl 4.2 3.3 - 4.9 mmol/L [facility] ([place]) Comment:Testing performed by : [facility], [place], [address] Chloride 102 97 - 110 mmol/L [facility] ([place]) Comment:Testing performed by : [facility], [facility], [place], [address] CO2 33(H) 22 - 32 mmol/L [facility] ([place]) Comment:Testing performed by : [facility], [facility], [place], [address] Anion gap 6 2 - 15 mmol/L [facility] ([place]) Comment:Testing performed by : [facility], [place], [address] BUN 16 6 - 25 mg/dL [facility] ([place]) Comment:Testing performed by : [facility], [facility], [place], [address] Creatinine 0.55(L) 0.60 - 1.10 mg/dL [facility] ([place]) Comment:Testing performed by : [facility], [place], [address] Glucose 113 70 - 199 mg/dL [facility] ([place]) Comment: Interpretive Data Fasting glucose >/= 126 [...] was last revised 2022. Testing performed by: [facility], [place], [address] Calcium 9.5 8.5 - 10.3 mg/dL [facility] ([place]) Comment:Testing performed by : [facility], [place], [address] Bilirubin, total 0.4 0.1 - 1.2 mg/dL [facility] ([place]) Comment:Testing performed by : [facility], [facility], [place], [address] Protein, pl 6.6 6.5 - 8.5 g/dL [facility] ([place]) Comment:Testing performed by : [facility], [place], [address] Albumin 4.1 3.5 - 5.0 g/dL [facility] ([place]) Comment:Testing performed by : [facility], [facility], [place], [address] Alk phos 118 40 - 130 Units/L [facility] ([place]) Comment:Testing performed by : [facility], [place], [address] ALT 44 7 - 45 Units/L [facility] ([place]) Comment:Testing performed by : [facility], [place], [address] AST 20 10 - 45 Units/L [facility] ([place]) Comment:Testing performed by : [facility], [place], [address] Blood 03/07/2024 9:4 5 AM AIRFRAME TECHNICAL OFFICER 03/07/2024 9:59 AM AIRFRAME TECHNICAL OFFICER us Chalino Chapa MD LAB BLOOD ORDERABLES Aylin freedman Result [facility] ([place]) 1 [facility] Department [place] [address] * Differential, auto (03/07/2024 8:45 AM AIRFRAME TECHNICAL OFFICER) Neutrophil abs 1.5 1.5 - 6.5 K/cumm Comment:Testing performed by : [facility] [address], Medical Office [address], [place] [address] Imm gran abs 0.0 0.0 - 0.1 K/cumm [facility] ([place]) Comment:Testing performed by : [facility] [address], Medical Office [address], [place] [address] Lymphocyte abs 1.1 0.8 - 3.3 K/cumm [facility] ([place]) Comment:Testing performed by : [facility] [address], Medical Office [address], [place] [address] Monocyte abs 0.3 0.2 - 0.8 K/cumm [facility] ([place]) Comment:Testing performed by : [facility] [place], [address], Medical Office [address], [place] [address] Eosinophil abs 0.1 0.0 - 0.5 K/cumm [facility] ([place]) Comment:Testing performed by : [facility] [address], Medical Office [address], [place] [address] Basophil abs 0.0 0.0 - 0.1 K/cumm [facility] ([place]) Comment:Testing performed by : [facility] [address], Medical Office [facility] [address], [place] [address] Neutrophil pct 50.5 % [facility] ([place]) Comment: Interpretive Data Percent cell count reference ranges are not reported, since discordance with absolute values may lead to misinterpretation of CBC data. Current Interpretive Data was last revised on 2022. Testing performed by: [facility] [address], Medical Office [facility] [address], [place] [address] Imm gran pct 0.0 % [facility] ([place]) Comment: Interpretive Data Percent cell count reference ranges are not reported, since discordance with absolute values may lead to misinterpretation of CBC data. Current Interpretive Data was last revised on 2022. Testing performed by: [facility] [address], Medical Office [facility] [address], [place] [address] Lymphocyte pct 36.8 % [facility] ([place]) Comment: Interpretive Data Percent cell count reference ranges are not reported, since discordance with absolute values may lead to misinterpretation of CBC data. Current Interpretive Data was last revised on 2022. Testing performed by: [facility] [address], Medical Office [address], [place] [address] Monocyte pct 8.6 % [facility] ([place]) Comment: Interpretive Data Percent cell count reference ranges are not reported, since discordance with absolute values may lead to misinterpretation of CBC data. Current Interpretive Data was last revised on 2022. Testing performed by: [facility] [address], Medical Office [facility] [address], [place] [address] Eosinophil pct 3.1 % EMELINA ROGERS ([place]) Comment: Interpretive Data Percent cell count reference ranges are not reported, since discordance with absolute values may lead to misinterpretation of CBC data. Current Interpretive Data was last revised on 2022. Testing performed by: [facility] [address], Medical Office [facility] [address], [place] [address] Basophil pct 1.0 % SABRA ROGERS ([place]) Comment: Interpretive Data Percent cell count reference ranges are not reported, since discordance with absolute values may lead to misinterpretation of CBC data. Current Interpretive Data was last revised on 2022. Testing performed by: [facility] [address], Medical Office [facility] [address], [place] [address] Blood 03/07/2024 8:45 AM AIRFRAME TECHNICAL OFFICER 03/07/2024 9:49 AM AIRFRAME TECHNICAL OFFICER us Chalino Chapa MD LAB BLOOD ORDERABLES Aylin freedman Result SABRA ROGERS ([place]) 1 [facility] Department [place] [address] * (ABNORMAL) CBC with auto differential (03/07/2024 8:45 AM AIRFRAME TECHNICAL OFFICER) WBC 2.9(L) 3.8 - 9.9 K/cumm Comment:Testing performed by : [facility] [address], Medical Office [facility] [address], [place] [address] Hgb 11.8(L) 11.9 - 15.5 g/dL SABRA ROGERS ([place]) Comment:Testing performed by : [facility] [address], Medical Office [facility] [address], [place] [address] Hct 37.1 35.6 - 45.5 % SABRA ROGERS ([place]) Comment:Testing performed by : [facility] [address], Medical Office [facility] [address], [place] [address] Plt 135(L) 150 - 400 K/cumm [facility] ([place]) Comment:Testing performed by : [facility] [address], Medical Office [facility] [address], [place] [address] MPV 10.4 9.1 - 12.3 fL [facility] ([place]) Comment:Testing performed by : [facility] [address], Medical Office [facility] [address], [place] [address] RBC 3.44(L) 3.90 - 5.20 M/cumm [facility] ([place]) Comment:Testing performed by : [facility] [address], Medical Office [facility] [address], [place] [address] MCV 107.8(H) 81.3 - 96.4 fL [facility] ([place]) Comment:Testing performed by : [facility] [address], Medical Office [facility] [address], [place] [address] MCH 34.3(H) 27.1 - 33.3 pg [facility] ([place]) Comment:Testing performed by : [facility] [address], Medical Office [facility] [address], [place] [address] MCHC 31.8(L) 32.3 - 35.7 g/dL [facility] ([place]) Comment:Testing performed by : [facility] [address], Medical Office [facility] [address], [place] [address] RDW CV 14.5 11.1 - 14.9 % [facility] ([place]) Comment:Testing performed by : [facility] [address], Medical Office [facility] [address], [place] [address] RDW SD 58.0(H) 35.7 - 48.1 fL [facility] ([place]) Comment:Testing performed by : [facility] [address], Medical Office [facility] [address], [place] [address] NRBC abs Not Measured 0.00 - 0.01 K/cumm [facility] ([place]) Comment:Testing performed by : [facility] [address], Medical Office [facility] [address], [place] [address] Blood 03/07/2024 8:45 AM AIRFRAME TECHNICAL OFFICER 03/07/2024 9:49 AM AIRFRAME TECHNICAL OFFICER us Chalino Chapa MD LAB BLOOD ORDERABLES Ayiln l Result [facility] [place]) 1 [facility] [place] [address] * eGFR (02/22/2024 8:10 AM AIRFRAME TECHNICAL OFFICER) eGFR >90 >=60 mL/min/1. 73 m2 Comment: [...] last reviewed 2021. Blood 02/22/2024 8:10 AM AIRFRAME TECHNICAL OFFICER 02/22/2024 10:47 AM AIRFRAME TECHNICAL OFFICER us Neisha Hi NP LAB BLOOD ORDERABLES Final R esult Performing Organization Address City/[facility]/ZIP Co de Phone Number [facility] [place]) 1 [facility] [place] [address] * eGFR (02/22/2024 8:10 AM AIRFRAME TECHNICAL OFFICER) eGFR >90 >=60 mL/min/1. 73 m2 Comment: [...] was last reviewed 2021. Testing performed by: [facility], [place], [address] Blood 02/22/2024 8:10 AM AIRFRAME TECHNICAL OFFICER 02/22/2024 8:32 AM AIRFRAME TECHNICAL OFFICER Chalino Chapa MD LAB BLOOD ORDERABLES Aylin freedman Result SABRA ROGERS ([place]) 1 [facility] [place] [address] * Differential, auto (02/22/2024 8:10 AM AIRFRAME TECHNICAL OFFICER) Neutrophil abs 1.6 1.5 - 6.5 K/cumm Comment:Testing performed by : [facility] [address], Medical Office [facility] [address], [place] [address] Imm gran abs 0.0 0.0 - 0.1 K/cumm [facility] ([place]) Comment:Testing performed by : [facility] [address], Medical Office [facility] [address], [place] [address] Lymphocyte abs 1.3 0.8 - 3.3 K/cumm [facility] ([place]) Comment:Testing performed by : [facility] [address], Medical Office [facility] [address] [facility] [address], [place] [address] Monocyte abs 0.3 0.2 - 0.8 K/cumm [facility] ([place]) Comment:Testing performed by : [facility] [address], Medical Office [facility] [address], [place] [address] Eosinophil abs 0.1 0.0 - 0.5 K/cumm [facility] ([place]) Comment:Testing performed by : [facility] [address], Medical Office [facility] [address], [place] [address] Basophil abs 0.0 0.0 - 0.1 K/cumm [facility] ([place]) Comment:Testing performed by : [facility] [address], Medical Office [facility] [address], [place] [address] Neutrophil pct 48.5 % [facility] ([place]) Comment: Interpretive Data Percent cell count reference ranges are not reported, since discordance with absolute values may lead to misinterpretation of CBC data. Current Interpretive Data was last revised on 2022. Testing performed by: [facility] [address], Medical Office [facility] [address], [place] [address] Imm gran pct 0.3 % [facility] ([place]) Comment: Interpretive Data Percent cell count reference ranges are not reported, since discordance with absolute values may lead to misinterpretation of CBC data. Current Interpretive Data was last revised on 2022. Testing performed by: [facility] [address], Medical Office [facility] [address], [place] [address] Lymphocyte pct 39.7 % [facility] ([place]) Comment: Interpretive Data Percent cell count reference ranges are not reported, since discordance with absolute values may lead to misinterpretation of CBC data. Current Interpretive Data was last revised on 2022. Testing performed by: [facility] [address], Medical Office [facility] [address], [place] [address] Monocyte pct 8.1 % [facility] ([place]) Comment: Interpretive Data Percent cell count reference ranges are not reported, since discordance with absolute values may lead to misinterpretation of CBC data. Current Interpretive Data was last revised on 2022. Testing performed by: [facility] [address], Medical Office [facility] [address], [place] [address] Eosinophil pct 2.8 % [facility] ([place]) Comment: Interpretive Data Percent cell count reference ranges are not reported, since discordance with absolute values may lead to misinterpretation of CBC data. Current Interpretive Data was last revised on 2022. Testing performed by: [facility] [address], Medical Office [facility] [address] [facility] [address], [place] [address] Basophil pct 0.6 % SABRA ROGERS ([place]) Comment: Interpretive Data Percent cell count reference ranges are not reported, since discordance with absolute values may lead to misinterpretation of CBC data. Current Interpretive Data was last revised on 2022. Testing performed by: [facility] [address], Medical Office [facility] [address] [facility] [address], [place] [address] Blood 02/22/2024 8:10 AM AIRFRAME TECHNICAL OFFICER 02/22/2024 8:17 AM AIRFRAME TECHNICAL OFFICER us Chalino Chapa MD LAB BLOOD ORDERABLES Aylin freedman Result SABRA ROGERS ([place]) 1 [facility] [place] [address] * (ABNORMAL) CBC with auto differential (02/22/2024 8:10 AM AIRFRAME TECHNICAL OFFICER) WBC 3.2(L) 3.8 - 9.9 K/cumm Comment:Testing performed by : [facility] [address], Medical Office [facility] [address], [place] [address] Hgb 12.7 11.9 - 15.5 g/dL SABRA ROGERS ([place]) Comment:Testing performed by : [facility] [address], Medical Office [facility] [address] [facility] [address], [place] [address] Hct 39.8 35.6 - 45.5 % SABRA ROGERS ([place]) Comment:Testing performed by : [facility] [address], Medical Office [facility] [address] [facility] [address], [place] [address] Plt 125(L) 150 - 400 K/cumm SABRA ROGERS ([place]) Comment:Testing performed by : [facility] [address], Medical Office [facility] [address], [place] [address] MPV 11.1 9.1 - 12.3 fL SABRA ROGERS ([place]) Comment:Testing performed by : [facility] [address], Medical Office [facility] [address] [facility] [address], [place] [address] RBC 3.68(L) 3.90 - 5.20 M/cumm [facility] ([place]) Comment:Testing performed by : [facility] [address], Medical Office [facility] [address] [facility] [address], [place] [address] MCV 108.2(H) 81.3 - 96.4 fL [facility] ([place]) Comment:Testing performed by : [facility] [address], Medical Office [facility] [address] [facility] [address], [place] [address] MCH 34.5(H) 27.1 - 33.3 pg [facility] ([place]) Comment:Testing performed by : [facility] [address], Medical Office [facility] [address], [place] [address] MCHC 31.9(L) 32.3 - 35.7 g/dL [facility] ([place]) Comment:Testing performed by : [facility] [address], Medical Office [facility] [address] [facility] [address], [place] [address] RDW CV 15.5(H) 11.1 - 14.9 % [facility] ([place]) Comment:Testing performed by : [facility] [address], Medical Office [facility] [address] [facility] [address], [place] [address] RDW SD 62.6(H) 35.7 - 48.1 fL [facility] ([place]) Comment:Testing performed by : [facility] [address], Medical Office [facility] [address] [facility] [address], [place] [address] NRBC abs Not Measured 0.00 - 0.01 K/cumm [facility] ([place]) Comment:Testing performed by : [facility] [address], Medical Office [facility] [address] [facility] [address], [place] [address] Blood 02/22/2024 8:10 AM AIRFRAME TECHNICAL OFFICER 02/22/2024 8:17 AM AIRFRAME TECHNICAL OFFICER us Chalino Chapa MD LAB BLOOD ORDERABLES Aylin freedman Result [facility] ([place]) 1 [facility] Department [place] [address] * TSH (02/22/2024 8:10 AM AIRFRAME TECHNICAL OFFICER) Thyroid Stimulating Hormone 2.55 0.30 - 4.20 mcIUnit/mL Blood 02/22/2024 8:10 AM AIRFRAME TECHNICAL OFFICER 02/22/2024 10:47 AM AIRFRAME TECHNICAL OFFICER us Neisha Hi DRYERMAN/WOMAN LAB BLOOD ORDERABLES Final R esult [facility] ([place]) 1 [facility] [place] [address] * (ABNORMAL) Comprehensive metabolic panel (02/22/2024 8:10 AM AIRFRAME TECHNICAL OFFICER) Sodium 142 135 - 145 mmol/L Potassium, [...] [facility] ([place]) Blood 02/22/2024 8:10 AM AIRFRAME TECHNICAL OFFICER 02/22/2024 10:47 AM AIRFRAME TECHNICAL OFFICER us Neisha Hi DRYERMAN/WOMAN LAB BLOOD ORDERABLES Final R esult [facility] ([place]) 1 [facility] [place] [address] * (ABNORMAL) Comprehensive metabolic panel (02/22/2024 8:10 AM AIRFRAME TECHNICAL OFFICER) Sodium 136 135 - 145 mmol/L Comment:Testing performed by : [place], [address] Potassium, pl 3.9 3.3 - 4.9 mmol/L [facility] ([place]) Comment:Testing performed by : [place], [address] Chloride 97 97 - 110 mmol/L [facility] ([place]) Comment:Testing performed by : [place], [address] CO2 34(H) 22 - 32 mmol/L [facility] ([place]) Comment:Testing performed by : [place], [address] Anion gap 4 2 - 15 mmol/L [facility] ([place]) Comment:Testing performed by : [place], [address] BUN 15 6 - 25 mg/dL [facility] ([place]) Comment:Testing performed by : [place], [address] Creatinine 0.49(L) 0.60 - 1.10 mg/dL [facility] ([place]) Comment:Testing performed by : [place], [address] Glucose 154 70 - 199 mg/dL [facility] ([place]) Comment: Interpretive Data Fasting glucose >/= 126 [...] was last revised 2022. Testing performed by: [place], [address] Calcium 9.7 8.5 - 10.3 mg/dL [facility] ([place]) Comment:Testing performed by : [place], [address] Bilirubin, total 0.5 0.1 - 1.2 mg/dL [facility] ([place]) Comment:Testing performed by : [facility], [place], [address] Protein, pl 7.0 6.5 - 8.5 g/dL [facility] ([place]) Comment:Testing performed by : [facility], [place], [address] Albumin 4.4 3.5 - 5.0 g/dL [facility] ([place]) Comment:Testing performed by : [facility], [place], [address] Alk phos 131(H) 40 - 130 Units/L [facility] ([place]) Comment:Testing performed by : [facility], [place], [address] ALT 37 7 - 45 Units/L [facility] ([place]) Comment:Testing performed by : [facility], [place], [address] AST 20 10 - 45 Units/L [facility] ([place]) Comment:Testing performed by : [facility], [place], [address] Blood 02/22/2024 8:10 AM AIRFRAME TECHNICAL OFFICER 02/22/2024 8:32 AM AIRFRAME TECHNICAL OFFICER us Chalino Chapa MD LAB BLOOD ORDERABLES Aylin freedman Result Performing Organization Address City/State/[facility] Co de Phone Number [facility] [place] 1 [facility] Department [place] [address] from Last 3 Months Insurance MEDICARE MEDICARE [facility] MEDICARE SUPPLEMENT MEDICARE [facility] MEDICARE SUPPLEMENT Advance Directives For more information, please contact: [phone] Documents on File Type Date Recorded Patient Ocularist Expl anation ADVANCE DIRECTIVE 12/20/2023 8:01 AM Power of Associate Professor Of Law-Medical * Full Code (Latest Code Status on File) Date Activated Date Inactivated Comments 12/11/2023 12:19 PM 12/19/2023 6:45 PM Care Teams Credit Control Clerk Relationship Specialty Start Date End Date Bryan Davey DO PCP - General Internal Medicine 11/14/23
--- OUTSIDE RECORDS SUMMARY | 2024-05-20 12:59 | XMS_ITS | Encounter Summary ---
Author Organization [facility] Health Address [address] [place] [address] Care Team Providers Care [employer] P[employer] Operator Name Role Phone Mervat Kelley PROFESSOR OF BIOLOGICAL SCIENCES-MACHINE PAINT MIXER Primary Care Provider + Encounter Details Date Type Department Care Team (Late st Contact Info) Description 10/06/2022 Lab Requisition [facility] - Pathology Lab [address] [place] [address] Jesus Louis MD [address] [id number] Illness, unspecified Social History Tobacco Use Types Packs/Day Years [...] on file documented as of this encounter Plan of Treatment Not on file documented as of this encounter Procedures Procedure Name Priority Date/Time Associated Diagnosis Comments BONE MARROW BIOPSY (STL) Routine 10/05/2022 9:15 AM CDT Illness, unspecified documented in this encounter Results * BONE MARROW BIOPSY (STL) (10/05/2022 9:15 AM CDT) Case Report Bone Marrow Patholog y Report Case: [id number] Authorizing Provider: Jesus Louis MD Collected: 10/05/2022 09:15 AM Ordering Location: [facility] Lab Received: 10/06/2022 01:27 PM Pathologist: Linda Hauser MD Specimens: A) - Bone Marrow Clot, Fluoro-guided bone marrow aspiration B) - Bone Marrow Core, Fluoro-guided bone marrow core bx 10/07/2022 1:40 PM CDT [facility] Final Diagnosis Bone marrow, aspirate, clot section, and core biopsy: - 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 Evaluation for myeloid and erythroid dyspoiesis is limited given the quality of the aspirate smears. Dysmegakaryopoiesis is present. No increase in blasts is identified by immunohistochemistry. Ring sideroblasts can be seen in a variety of settings, including but not limited to drug/toxin exposure (e.g., alcohol), nutritional deficiencies, as well as clonal stem cell disorders such as 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 syndromes. If reactive causes of erythroid hyperplasia and ring sideroblasts have been excluded, or if a clonal cytogenetic/molecular abnormality is detected, the findings may represent a low-grade 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 syndrome with ring sideroblasts. Correlation with clinical findings and relevant cytogenetic/molecular testing is required. 10/07/2022 1:40 PM CDT [facility] Peripheral Smear Description CBC Data: WBC - 2.2, Hgb - 6.3, MCV - 122.4, MCHC - 31.2, and Platelets - 260. Leukocyte number: decreased. Granulocyte morphology: normal. Lymphocyte morphology: normal. Erythrocyte number: decreased. Erythrocyte morphology: macrocytic. Anisopoikilocytosis: mild. Polychromasia: mild. Platelet number: normal. Platelet morphology: normal. 10/07/2022 1:40 PM [facility] Bone Marrow Aspirate The aspirate smears are suboptimal due to a lack of spicules and low cellularity. A differential count is not performed. Scanning shows mostly erythroid progenitors with a full range of maturation. Myeloid precursors also show complete maturation. Too few megakaryocytes are present for evaluation. Storage iron (by special stain): decreased, but no spicules present on aspirate smear. Sideroblastic iron (by special stain): Ring sideroblasts present, accounting for the majority of the erythroid progenitors. Control is appropriately reactive. 10/07/2022 1:40 PM [facility] Bone Marrow Core Biopsy and Clot Section Description Specimen quality: The decalcified bone marrow core biopsy is adequate for evaluation. Cellularity: hypercellular, 90%. Trilineage Hematopoiesis: present. Myeloid to Erythroid ratio: decreased. Myeloid maturation and localization: normal. Erythroid maturation and localization: megaloblastoid changes. Megakaryocyte number: increased. Megakaryocyte distribution: atypical clusters. Lymphoid aggregates: absent. Clot section marrow particles: present. Clot section morphology: similar to core biopsy. Clot section iron (by special stain): adequate. Ring sideroblasts are seen. To further define the cellular components of the marrow and to assess for fibrosis given the suboptimal nature of the aspirate smears, immunohistochemistry and special stains are performed on the core biopsy. All controls are appropriately reactive. CD34 shows that blasts comprise less than 5% of the marrow cellularity. CD117 and e-cadherin highlight an increased number of early erythroid progenitors. [id number] demonstrates additional, more mature erythroid lineage cells, confirming erythroid hyperplasia. Myeloperoxidase is positive in relatively fewer numbers of myeloid precursors. CD3 and CD20 show a normal number and distribution of T-cells and B-cells, respectively. Reticulin staining shows no significant marrow fibrosis (MF-0), and trichrome staining shows no collagen deposition. 10/07/2022 1:40 PM [facility] Flow Cytometry Summary Concurrent flow cytometry ([id number]) shows no evidence of non-Hodgkin lymphoma or high-grade myeloid neoplasm. 10/07/2022 1:40 PM [facility] Clinical History 82 year old woman with macrocytic anemia. 10/07/2022 1:40 PM [facility] Materials Received Received are 22 slides and 3 blocks (A1, A2; B1) labeled [id number] along with a copy of the outside pathology report. The materials originate from [address] [facility], [place] [address]. All original materials are returned to the referring institution, along with a copy of our final report. 10/07/2022 1:40 PM CDT [facility] Pathologist Location at [facility] 10/07/2022 1:40 PM CDT [facility] Disclaimer The performance characteristics of all immunohistochemical and indirect immunofluorescence stains (if any) cited in this report were determined by the Histopathology Laboratory of [facility]. Some of these tests were developed by our own laboratory and have not been cleared or approved by the US Food and Drug Administration. The FDA does not require this test to go through premarket FDA review. These tests are used for clinical purposes. They should not be regarded as investigational or for research. This laboratory is certified under the Clinical Laboratory Improvement Amendments (CLIA) as qualified to perform high complexity clinical laboratory testing. This case has been personally reviewed and interpreted by the attending (teaching) pathologist. 10/07/2022 1:40 PM CDT [facility] Embedded Images 10/07/2022 1:40 PM CDT [facility] Pathology/Cytology BONE MARROW SPECIMEN / Unknown 10/05/2022 9:15 AM CDT 10/06/2022 1:27 PM CDT Miscellaneous samples (specimen) BONE MARROW SPECIMEN / Unknown 10/05/2022 9:15 AM CDT 10/06/2022 1:27 PM CDT Jesus Louis MD LAB - PATHOLOGY/CYTO LOGY ORDERABLES [facility] [address] [phone] documented in this encounter Visit Diagnoses Diagnosis Illness, unspecified documented in this encounter Care Teams [employer] Pumping [employer] Operator Relationship Specialty Start Date End Date Mervat Kelley APRN-CNP [address] [id number] PCP - General 11/24/21 documented as of this encounter
--- OUTSIDE RECORDS SUMMARY | 2024-05-20 12:59 | XMS_ITS | Patient Health Summary ---
Author Organization [facility] Address [address] [place] [address] Care Team Providers Care Fundraiser Name Role Phone Mervat Kelley GERA-CIA AGENT Primary Care Provider + Note from [facility],non-owned Affiliates and Associated Physician Practices is amultiple site organization consisting of ambulatory clinics and hospital sitesin [place], [place], [place] and [place]. This disclosure is being madepursuant to the Care Everywhere program and may not contain all information available regarding this patient. Last updated 17.[facility] Allergies * Codeine(Other) * Cephalexin(Nausea and/or Vomiting) * Morphine(Nausea and/or Vomiting,Headache) Medications * Be aware that medications may not be up to date on this document. Alwaysverify current medications with the patient. * cyanocobalamin (VITAMIN B-12) 500 MCG tablet(Started 09/30/2021) Take 1 (one) tablet by mouth once daily * amLODIPine (Norvasc) 5 MG tablet Take 1 (one) tablet by mouth once daily * spironolactone (Aldactone) 25 MG tablet(Started 09/20/2021) Take 1 (one) tablet by mouth 2 times daily * moxifloxacin (Vigamox) 0.5 % ophthalmic solution Instill 1 (one) drop into both eyes * evcarksq-glxhlatrz-wdwurjxz (Maxitrol) ophthalmic suspension * nepafenac (Nevanac) 0.1 % ophth suspension Nevanac 0.1 % eye drops,suspension * olopatadine (Pataday) 0.2 % ophthalmic solution Instill into both eyes once daily * fish oil/omega-3 fatty acids (Promega;Cardi-[place] 3) 1000 MG capsule Take 2 (two) capsules by mouth daily with food * triamcinolone acetonide (Kenalog) 0.5 % ointment triamcinolone acetonide 0.5 % topical ointment USE ONE APPLICATION TWICE DAILY NEEDED FOR SKIN IRRITATION Active Problems Problem Noted Date Diagnosed Date Closed fracture of distal en d of left humerus with routine healing 09/29/2021 Closed fracture of distal en d of left humerus with routine healing, unspecified fracture morphology, subsequent encounter 09/29/2021 Immunizations * Covid Moderna primary monovalent 12+ yr 0.5mL(Given 02/01/2021) * INFLUENZA VACCINE, HIGH-DOSE, QUADR. (FLUZONE HIGH-DOSE QUADRIVALENT; 65Y+), 0.7 ML (HD-IIV4)(Given 01/07/2022, 01/15/2021, 01/13/2020) * INFLUENZA VACCINE, HIGH-DOSE, TRIV. (FLUZONE HIGH-DOSE TRIVALENT; 65Y+) (HD-IIV3)(Given 02/06/2018, 02/02/2016) * INFLUENZA VACCINE, TRIV. (FLUZONE; FLULAVAL; FLUARIX; AFLURIA TRIVALENT; 6MO+), 0.5 ML (IIV3)(Given 02/13/2013) * PNEUMOCOCCAL PPV VACCINE(Given 10/26/2020, 01/11/2006) * Pneumococcal Pcv13 Conj(Given 05/18/2016, 04/03/2016) * TDAP, HISTORIC VACCINE(Given 09/09/2019) * ZOSTER VACCINE, LIVE(Given 04/03/2016) * Zoster Hzv Vacc Recombinant Inj Im(Given 03/29/2022, 10/26/2020) Social History Tobacco Use Types Packs/Day Years [...] 71.7 kg (158 lb) 04/06/2022 10:56 AM SENIOR HUMAN RESOURCES REPRESENTATIVE Height 152.4 cm (5') 12/22/2021 12:39 PM CDT Body Mass Index 30.86 12/22/2021 12:39 PM CDT Procedures * BONE MARROW BIOPSY (STL)(Performed 10/05/2022) Performed for Illness, unspecified * FLOW CYTOMETRY BONE MARROW(Performed 10/05/2022) Performed for Anemia, unspecified * XR ELBOW LEFT 3VW OR MORE(Performed 04/06/2022) Performed for Closed fracture of distal end of left humerus with routine healing, unspecified fracture morphology, subsequent encounter * XR ELBOW LEFT 3VW OR MORE(Performed 02/02/2022) Performed for Closed fracture of distal end of left humerus with routine healing, unspecified fracture morphology, subsequent encounter * XR ELBOW LEFT 3VW OR MORE(Performed 12/22/2021) Performed for Closed fracture of distal end of left humerus with routine healing, unspecified fracture morphology, subsequent encounter * XR ELBOW LEFT 3VW OR MORE(Performed 11/24/2021) Performed for Closed fracture of distal end of left humerus with routine healing, unspecified fracture morphology, subsequent encounter * XR ELBOW LEFT 3VW OR MORE(Performed 11/03/2021) Performed for Closed fracture of distal end of left humerus with routine healing, unspecified fracture morphology, subsequent encounter * XR ELBOW LEFT 3VW OR MORE(Performed 10/13/2021) Performed for Closed fracture of distal end of left humerus with routine healing, unspecified fracture morphology, subsequent encounter * XR WRIST RIGHT 3VW OR MORE(Performed 10/13/2021) Performed for Injury of right wrist, initial encounter * CARDIAC EKG ORDER(Performed 10/01/2021) * CARDIAC EKG ORDER(Performed 09/30/2021) * RBC MORPHOLOGY(Performed 09/30/2021) Performed for Closed fracture of distal end of left humerus with routine healing, unspecified fracture morphology, subsequent encounter * CBC W AUTO DIFFERENTIAL(Performed 09/30/2021) Performed for Closed fracture of distal end of left humerus with routine healing, unspecified fracture morphology, subsequent encounter * URINALYSIS W/MICROSCOPIC NO CULTURE(Performed 09/30/2021) * FERRITIN(Performed 09/30/2021) * IRON + TRANSFERRIN PANEL(Performed 09/30/2021) * COMPREHENSIVE METABOLIC PANEL(Performed 09/30/2021) * VITAMIN B12(Performed 09/30/2021) * FOLATE(Performed 09/30/2021) * PT-INR [facility](Performed 09/30/2021) Performed for Closed fracture of distal end of left humerus with routine healing, unspecified fracture morphology, subsequent encounter * PHOSPHORUS BLOOD(Performed 09/30/2021) Performed for Closed fracture of distal end of left humerus with routine healing, unspecified fracture morphology, subsequent encounter * MAGNESIUM BLOOD(Performed 09/30/2021) Performed for Closed fracture of distal end of left humerus with routine healing, unspecified fracture morphology, subsequent encounter * XR CHEST 1VW PORTABLE(Performed 09/29/2021) Performed for Closed fracture of distal end of left humerus with routine healing, unspecified fracture morphology, subsequent encounter * LACTIC ACID BLOOD(Performed 09/29/2021) * CBC W/O DIFFERENTIAL(Performed 09/29/2021) * TROPONIN I(Performed 09/29/2021) * GLUCOSE - POINT OF CARE(Performed 09/29/2021) * EKG 12-LEAD(Performed 09/29/2021) Performed for Closed fracture of distal end of left humerus with routine healing, unspecified fracture morphology, subsequent encounter * CT 3D RECON WO INDEPENDENT WKSN(Performed 09/29/2021) Performed for Closed fracture of distal end of left humerus with routine healing, unspecified fracture morphology, subsequent encounter * BLOOD TYPE VERIFICATION(Performed 09/29/2021) * TYPE + SCREEN PANEL(Performed 09/29/2021) * CT ELBOW LEFT WO CONTRAST(Performed 09/29/2021) Performed for Closed fracture of distal end of left humerus with routine healing, unspecified fracture morphology, subsequent encounter * ED MODERATE SEDATION(Performed 09/29/2021) * XR ELBOW LEFT 2VW(Performed 09/29/2021) Performed for Closed fracture of distal end of left humerus with routine healing, unspecified fracture morphology, subsequent encounter * XR STRESS ANY JOINT(Performed 09/29/2021) Performed for Closed fracture of distal end of left humerus with routine healing, unspecified fracture morphology, subsequent encounter * XR ELBOW LEFT 2VW(Performed 09/29/2021) Performed for Closed fracture of distal end of left humerus with routine healing, unspecified fracture morphology, subsequent encounter * XR HUMERUS LEFT 2VW OR MORE(Performed 09/29/2021) Performed for Closed fracture of distal end of left humerus with routine healing, unspecified fracture morphology, subsequent encounter * EKG 12-LEAD(Performed 09/28/2021) Performed for Closed fracture of distal end of left humerus with routine healing, unspecified fracture morphology, subsequent encounter * RBC MORPHOLOGY(Performed 09/28/2021) * COMPREHENSIVE METABOLIC PANEL(Performed 09/28/2021) * CBC W AUTO DIFFERENTIAL(Performed 09/28/2021) * DERMATOPATHOLOGY(Performed 11/14/2018) Results * FLOW CYTOMETRY BONE MARROW (10/05/2022 9:15 AM CDT) Case Report Flow Cytometry Case: [id number] Authorizing Provider: Jesus Louis MD Collected: 10/05/2022 09:15 AM Ordering Location: [facility] Pathology Lab Received: 10/05/2022 02:15 PM Pathologist: Linda Hauser MD Specimen: Bone Marrow 10/05/2022 4:45 PM CDT [facility] PATHOLOGY LAB Final Diagnosis Bone marrow, flow cytometric immunophenotypic analysis: - No evidence of non-Hodgkin lymphoma or high-grade myeloid neoplasm. - See interpretation. 10/05/2022 4:45 PM CDT [facility] PATH[facility] Flow Cytometry Interpretation The bone marrow specimen has a viability of 85%. Within the lymphocyte gate, there is no monoclonal B-cell population identified (kappa:lambda ratio = 2.3:1). There is no expanded T-cell population seen. By CD34, 1.1% of all events analyzed are blasts. A bone marrow aspirate smear prepared from the flow cytometry specimen is reviewed for quality supervisor purposes. The bone marrow specimen shows no evidence of involvement by non-Hodgkin lymphoma or a high-grade myeloid neoplasm. Correlation with clinical findings, the concurrent bone marrow biopsy, and relevant cytogenetic/molecu lar studies is required. 10/05/2022 4:45 PM [facility] PATHOLOGY LAB Flow Cytometry Results Differential Result Comment Flow Cell Count /uL 40,800 Total Viability % 85.0 Lymphocytes % 18 Dim CD45 Region % 9 Monocytes % 11 Granulocytes % 61 10/05/2022 4:45 PM CDT [facility] PATHOLOGY LAB Reason for test Anemia, unspecified 285.9 10/05[facility]2022 4[facility] Client Specimen ID # [id number] 10/05/2022 4:45 PM [facility] PATHOLOGY LAB Number of markers 10 were performed. A-2 Flow CD10 A-3 Flow CD13 A-5 Flow CD20 A-1 Flow CD5 A-4 Flow CD19 A-6 Flow CD33 A-7 Flow CD34 A-8 Flow CD45 A-9 [place]+CD19+ A-10 Lambda+CD19+ 10/05/2022 4:45 PM [facility] Pathologist Location at [facility] 10/05/2022 4:45 PM CDT U PATHOLOGY LAB Disclaimer Test performed at [facility], [address] [place] [address], [id number]. *The established laboratory minimum viability is 70%. Values below the minimum may result in the failure to find an abnormal population of cells. This test was developed and its performance characteristics determined by the Flow Cytometry Laboratory. It has not been cleared by the [place] Food and Drug Administration (FDA). The FDA has determined that such clearance or approval is not necessary. This test is used for clinical purposes. It should not be regarded as investigational or for research. This laboratory is regulated under the Clinical Laboratory Improvement Amendments of 1998 (CLIA) as a qualified to perform high complexity clinical testing. 10/05/2022 4:45 PM [facility] Embedded Images 4:45 PM [facility] Pathology/Cytolo gy BONE MARROW SPECIMEN / Unknown 10/05/2022 9:15 AM CDT 10/05/2022 2:15 PM CDT Jesus Louis MD LAB - PATHOLOGY/CYTO LOGY ORDERABLES [facility] PATHOLOGY LAB [address] [phone] * BONE MARROW BIOPSY (STL) (10/05/2022 9:15 AM CDT) Case Report Bone Marrow Patholog y Report Case: [id number] Authorizing Provider: Jesus Louis MD Collected: 10/05/2022 09:15 AM Ordering Location: [facility] Pathology Lab Received: 10/06/2022 01:27 PM Pathologist: Linda Hauser MD Specimens: A) - Bone Marrow Clot, Fluoro-guided bone marrow aspiration B) - Bone Marrow Core, Fluoro-guided bone marrow core bx 10/07/2022 1:40 PM CDT [facility] PATHOLOGY LAB Final Diagnosis Bone marrow, aspirate, clot section, and core biopsy: - 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 10/07/2022 1:40 PM [facility] PATHOLOG[facility] LAB Peripheral Smear Description CBC Data: WBC - 2.2, Hgb - 6.3, MCV - 122.4, MCHC - 31.2, and Platelets - 260. Leukocyte number: decreased. Granulocyte morphology: normal. Lymphocyte morphology: normal. Erythrocyte number: decreased. Erythrocyte morphology: macrocytic. Anisopoikilocytosis: mild. Polychromasia: mild. Platelet number: normal. Platelet morphology: normal. 10/07/2022 1:40 PM [facility] PATHOLOG[facility] LAB Bone Marrow Aspirate The [...] Control is appropriately reactive. 10/07/2022 1:40 PM [facility] PATHOLOG[facility] LAB Bone Marrow Core Biopsy [...] an increased number of early erythroid progenitors. [id number] demonstrates additional, more mature erythroid lineage cells, confirming erythroid hyperplasia. Myeloperoxidase is positive in relatively fewer numbers of myeloid precursors. CD3 and CD20 show a normal number and distribution of T-cells and B-cells, respectively. Reticulin staining shows no significant marrow fibrosis (MF-0), and trichrome staining shows no collagen deposition. 10/07/2022 1:40 PM CDT [facility] PATHOLOGY LAB Flow Cytometry Summary Concurrent flow cytometry ([id number]) shows no evidence of non-Hodgkin lymphoma or high-grade myeloid neoplasm. 10/07/2022 1:40 PM CDT U PATHOLOGY LAB Clinical History 82 year old woman with macrocytic anemia. 10/07/2022 1:40 PM CDT [facility] PATHOLOGY LAB Materials Received Received are 22 slides and 3 blocks (A1, A2; B1) labeled [id number] along with a copy of the outside pathology report. The materials originate from [facility], [address] [place] [address] [place] [address]. All original materials are returned to the referring institution, along with a copy of our final report. 10/07/2022 1:40 PM CDT U PATHOLOGY LAB Pathologist Location at [facility] 10/07/2022 1:40 PM CDT [facility] PATHOLOGY LAB Disclaimer The performance characteristics of all immunohistochemical and indirect immunofluorescence stains (if any) cited in this report were determined by the Histopathology Laboratory of [facility]. Some of these tests were developed [...] attending (teaching) pathologist. 10/07/2022 1:40 PM CDT [facility] PATHOLOGY LAB Embedded Images 10/07/2022 1:40 PM CDT [facility] PATHOLOGY LAB Pathology/Cytology BONE MARROW SPECIMEN / Unknown 10/05/2022 9:15 AM CDT 10/06/2022 1:27 PM CDT Miscellaneous samples (specimen) BONE MARROW SPECIMEN / Unknown 10/05/2022 9:15 AM CDT 10/06/2022 1:27 PM CDT Jesus Louis MD LAB - PATHOLOGY/CYTO LOGY ORDERABLES Performing Organization Address City/State/RUST Co de Phone Number [facility] PATHOLOGY LAB [address] [place] [id number] [place] [address] * XR ELBOW LEFT 3VW OR MORE (04/06/2022 10:54 AM SENIOR HUMAN RESOURCES REPRESENTATIVE) Only the most recent of6 resultswithin the time period is included. Anatomical Region Laterality Modality Upper Extremity Radiographic Daja ging 04/06/2022 11:4 3 AM SENIOR HUMAN RESOURCES REPRESENTATIVE Impressions 04/06/2022 11:44 AM SENIOR HUMAN RESOURCES REPRESENTATIVE IMPRESSION: Distal humeral fracture, healing and unchanged in alignment. > Interpreting Provider: Shekhar Mares MD on 04/06/2022 11:44 AM Narrative 04/06/2022 11:44 AM SENIOR HUMAN RESOURCES REPRESENTATIVE PROCEDURE: XR ELBOW LEFT 3VW OR MORE, DATE/TIME OF EXAM: 04/06/2022 10:54 AM, LOCATION [facility] INDICATION: S42.402D: Closed fracture of distal end of left humerus with routine healing, unspecified fracture morphology, subsequent encounter ADDITIONAL CLINICAL INFORMATION: Ordering Provider Reason For Exam: fracture Technologist Note: Additional: COMPARISON: 02/02/2022 FINDINGS: A moderately displaced intra-articular fracture of the distal humerus is unchanged in alignment and healing. There is no dislocation.. There is mild to moderate osteoarthritis. A few small radiopaque foci in the soft tissues are unchanged and may represent soft tissue calcifications although foreign bodies are not excluded. Procedure Note Shekhar Mares MD - 04/06/2022 PROCEDURE: XR ELBOW LEFT 3VW OR MORE, DATE/TIME OF EXAM: 0:54 AM, LOCATION [facility] INDICATION: S42.402D: Closed fracture of distal end of left humerus with routine healing, unspecified fracture morphology, subsequent encounter ADDITIONAL CLINICAL INFORMATION: Ordering Provider Reason For Exam: fracture Technologist Note: Additional: COMPARISON: 02/02/2022 FINDINGS: A moderately displaced intra-articular fracture of the distal humerus is unchanged in alignment and healing. There is no dislocation.. There ismild to moderate osteoarthritis. A few small radiopaque foci in the softtissues are unchanged and may represent soft tissue calcifications althoughforeign bodies are not excluded. IMPRESSION: Distal humeral fracture, healing and unchanged in alignment. > Interpreting Provider: Shekhar Mares MD on 04/06/2022 11:44 AM Sherman Reaves MD DIAGNOSTIC IMAGING O RDERABLES * XR WRIST RIGHT 3VW OR MORE (10/13/2021 12:29 PM CDT) Anatomical Region Laterality Modality Wrist / Hand Radiographic Daja ging 10/13/2021 12:4 0 PM CDT Impressions 10/13/2021 12:41 PM CDT IMPRESSION: No acute osseous abnormality. This report was electronically signed by SHEKHAR MARES MD on 10/13/2021 12:41 PM . Narrative 10/13/2021 12:41 PM CDT Exam: XR WRIST RIGHT 3VW OR MORE History: S69.91XA: Injury of right wrist, initial encounter Comparison: None. Findings: No fracture or dislocation. Very mild degenerative changes. The bones are osteopenic. Procedure Note Shekhar Mares MD - 10/13/2021 Exam: XR WRIST RIGHT 3VW OR MORE History: S69.91XA: Injury of right wrist, initial encounter Comparison: None. Findings: No fracture or dislocation. Very mild degenerative changes. The bonesare osteopenic. IMPRESSION: No acute osseous abnormality. This report was electronically signed by SHEKHAR MARES MD on10/13/2021 12:41 PM . Sherman Reaves MD DIAGNOSTIC IMAGING O RDERABLES * CARDIAC EKG ORDER (10/01/2021 10:23 AM CDT) Only the most recent of2 resultswithin the time period is included. Narrative 10/01/2021 10:23 AM CDT Ordered by an unspecified provider. Scanned Document CARDIAC SERVICES ORD ERABLES * (ABNORMAL) RBC MORPHOLOGY (09/30/2021 6:41 AM CDT) Only the most recent of2 resultswithin the time period is included. Macrocytosis 2+(A) None 09/30/2021 7:27 AM CDT [facility] Blood BLOOD SPECIMEN / Unknown Venipuncture / Unknown 09/30/2021 6:41 AM CDT 09/30/2021 6:42 AM CDT Marcos Freitas MD LAB - HEMATOLOG Y ORDERABLES [facility] [address] [place] [id number], [facility] [phone] * (ABNORMAL) CBC W AUTO DIFFERENTIAL (09/30/2021 6:41 AM CDT) Only the most recent of2 resultswithin the time period is included. WBC 3.8 3.5 - 10.5 10 3/uL 09/30/2021 6:51 AM [facility] RBC 2.06(L) 3.80 - 5.20 10 6/uL 09/30/2021 6:51 AM [facility] Hemoglobin 8.1(L) 12.0 - 15.6 g/dL 09/30/2021 6:51 AM [facility] Hematocrit 24.6(L) 35.0 - 45.0 % 09/30/2021 6:51 AM [facility] MCV 119.4(H) 80.7 - 98.3 fL 09/30/2021 6:51 AM [facility] MCH 39.3(H) 26.7 - 34.0 pg 09/30/2021 6:51 AM [facility] MCHC 32.9 30.8 - 35.9 g/dL 09/30/2021 6:51 AM [facility] Platelet Count 218 150 - 400 10 3/uL 09/30/2021 6:51 AM [facility] RDW-SD 64.1(H) 36.0 - 50.0 fL 09/30/2021 6:51 AM [facility] RDW-CV 14.6 11.2 - 14.8 % 09/30/2021 6:51 AM [facility] MPV 11.7 9.4 - 12.9 fL 09/30/2021 6:51 AM [facility] nRBC Absolute 0.00 0 10 3/uL 09/30/2021 6:51 AM [facility] nRBC Auto 0.0 0 /100 WBC 09/30/2021 6:51 AM [facility] Neutrophils % 49.5 35.0 - 70.0 % 09/30/2021 6:51 AM [facility] Lymphocytes % 35.1 20.0 - 43.0 % 09/30/2021 6:51 AM [facility] Monocytes % 12.3 5.0 - 13.0 % 09/30/2021 6:51 AM [facility] Eosinophils % 2.1 0.0 - 6.0 % 09/30/2021 6:51 AM [facility] Basophil % 0.5 0.0 - 2.0 % 09/30/2021 6:51 AM [facility] Neutrophils Absolute 1.89 1.60 - 7.00 10 3/uL 09/30/2021 6:51 AM [facility] Lymphocyte Absolute 1.34 1.10 - 3.90 10 3/uL 09/30/2021 6:51 AM [facility] Monocytes Absolute 0.47 0.26 - 1.07 10 3/uL 09/30/2021 6:51 AM [facility] Eosinophils Absolute 0.08 0.00 - 0.47 10 3/uL 09/30/2021 6:51 AM [facility] Basophils Absolute 0.02 0.00 - 0.08 10 3/uL 09/30/2021 6:51 AM [facility] Immature Granulocytes % 0.5 0.0 - 1.0 % 09/30/2021 6:51 AM [facility] Immature Granulocytes Absolute 0.02 09/30/2021 6:51 AM [facility] Immature Platelet Fraction 5.1 1.1 - 6.2 % 09/30/2021 6:51 AM [facility] Blood BLOOD SPECIMEN / Unknown Venipuncture / Unknown 09/30/2021 6:41 AM CDT 09/30/2021 6:42 AM [facility] Marcos Freitas MD LAB - HEMATOLOG Y ORDERABLES Performing Organization Address City/State/RUST Co de Phone Number [facility] [address] [place] [phone] [phone] * (ABNORMAL) URINALYSIS W/MICROSCOPIC NO CULTURE (09/30/2021 6:38 AM [facility]) Color UA Yellow Straw, Yellow 09/30/2021 6:52 AM [facility] Clarity UA Clear Clear 09/30/2021 6:52 AM [facility] Specific [place] UA 1.009 1.005 - 1.030 09/30/2021 6:52 AM [facility] pH UA 7.0 5.0 - 8.0 pH 09/30/2021 6:52 AM [facility] Protein UA Negative Negative 09/30/2021 6:52 AM [facility] Glucose UA Negative Negative 09/30/2021 6:52 AM [facility] Ketone UA Negative Negative 09/30/2021 6:52 AM [facility] Bilirubin UA Negative Negative 09/30/2021 6:52 AM [facility] Blood UA Negative Negative 09/30/2021 6:52 AM [facility] Nitrite UA Negative Negative 09/30/2021 6:52 AM [facility] Leukocyte Esterase Negative Negative 09/30/2021 6:52 AM [facility] Urobilinogen UA 4.0(A) Negative mg/dL 09/30/2021 6:52 AM [facility] RBC UA 0-2 None Seen, 0-2, 3-5 /HPF 09/30/2021 6:52 AM [facility] WBC UA 0-5 None Seen, 0-5 /HPF 09/30/2021 6:52 AM [facility] Squamous Epithelial Cells UA 0-2 None Seen, 0-2, 3-5 /HPF 09/30/2021 6:52 AM [facility] Mucus UA 1+ /LPF 09/30/2021 6:52 AM [facility] Urine URINE SPECIMEN OBTAINED BY CLEAN CATCH PROCEDURE / Unknown Collection / Unknown 09/30/2021 6:38 AM CDT 09/30/2021 6:[address] [facility] - 09/30/2021 6:52 AM CDT Katherine Marvin MD LAB - URINALYSIS ORD [place] [address] [address], [place] [phone] * (ABNORMAL) IRON + TRANSFERRIN PANEL (09/30/2021 5:09 AM CDT) Iron 59 40 - 150 ug/dL 09/30/2021 6:31 AM CDT [facility] Transferrin 188 174 - 382 mg/dL 09/30/2021 6:31 AM CDT [facility] Transferrin Saturation % 25 16 - 50 % 09/30/2021 6:31 AM CDT [facility] TIBC Calculated 235(L) 240 - 450 ug/dL 09/30/2021 6:31 AM CDT [facility] Blood BLOOD SPECIMEN / Unknown Venipuncture / Unknown 09/30/2021 5:09 AM CDT 09/30/2021 5:09 AM CDT Katherine Marvin MD LAB - CHEMISTRY [facility] [address] [address], [place] [phone] * FERRITIN (09/30/2021 5:09 AM CDT) Pathologist [facility] Ferritin 160 13 - 204 ng/mL 09/30/2021 6:51 AM CDT [facility] Blood BLOOD SPECIMEN / Unknown Venipuncture / Unknown 09/30/2021 5:09 AM CDT 09/30/2021 5:09 AM CDT Katherine Marvin MD LAB - CHEMISTRY [facility] [address] [address], [place] [phone] * PT-INR [facility] (09/30/2021 4:46 AM CDT) PT 14.2 12.1 - 14.8 Seconds 09/30/2021 5:15 AM [facility] INR 1.1 See Comment 09/30/2021 5:15 AM [facility] Comment:The suggested therap eutic range for standard coumadin (warfarin) therapy is an INR of 2.0-3.0. For high-risk patients (Mechanical Mitral Valve Prosthesis, etc.), the suggested prophylactic therapeutic range is an INR of 2.5-3.5. Blood BLOOD SPECIMEN / Unknown Venipuncture / Unknown 09/30/2021 4:46 AM CDT 09/30/2021 4:47 AM CDT Marcos Freitas MD LAB - COAGULATI ON ORDERABLES [facility] [address] [place] [address], [facility] [phone] * (ABNORMAL) COMPREHENSIVE METABOLIC PANEL (09/30/2021 4:46 AM CDT) Only the most recent of2 resultswithin the time period is included. Pathologist [facility] BUN 6(L) 7 - 26 mg/dL 09/30/2021 6:21 AM [facility] Creatinine 0.54(L) 0.56 - 0.96 mg/dL 09/30/2021 6:21 AM [facility] Sodium 143 136 - 145 mmol/L 09/30/2021 6:21 AM [facility] Potassium 5.0(H) 3.5 - 4.5 mmol/L 09/30/2021 6:21 AM [facility] Comment:Hemolysis detected i n this specimen. Hemolysis may cause false elevations in potassium leading to pseudohyperkalemia or masked hypokalemia. Recommend repeat testing if clinically indicated. Chloride 105 98 - 107 mmol/L 09/30/2021 6:21 AM [facility] CO2 28 22 - 29 mmol/L 09/30/2021 6:21 AM [facility] Glucose 120(H) 70 - 115 mg/dL 09/30/2021 6:21 AM [facility] Calcium 8.2(L) 8.4 - 10.2 mg/dL 09/30/2021 6:21 AM [facility] Protein Total 6.1 6.0 - 8.3 g/dL 09/30/2021 6:21 AM [facility] Comment:Hemolysis detected i n this specimen. Hemolysis is known to cause elevations in this analyte. Caution should be exercised in the interpretation of this result. Recommend repeat testing if clinically indicated. Albumin 3.3(L) 3.4 - 5.0 g/dL 09/30/2021 6:21 AM [facility] Bilirubin Total 0.7 0.2 - 1.2 mg/dL 09/30/2021 6:21 AM [facility] Alkaline Phosphatase 29(L) 40 - 150 U/L 09/30/2021 6:21 AM [facility] ALT 32 5 - 55 U/L 09/30/2021 6:21 AM [facility] AST 25 5 - 34 U/L 09/30/2021 6:21 AM [facility] Comment:Hemolysis detected i n this specimen. Hemolysis is known to cause elevations in this analyte. Caution should be exercised in the interpretation of this result. Recommend repeat testing if clinically indicated. Anion Gap 15 8 - 18 09/30/2021 6:21 AM [facility] BUN/Creatinine Ratio 11 7 - 23 09/03 6:21 AM [facility] Osmolality Calculated 295 270 - 300 mOsm/kg 09/30/2021 6:21 AM [facility] Albumin/Globulin Ratio 1.2 1.1 - 2.3 09/30/2021 6:21 AM [facility] eGFR by CKD-EPI >90 >=90 mL/min/1 .73 m2 09/30/2021 6:21 AM [facility] Blood BLOOD SPECIMEN / Unknown Venipuncture / Unknown 09/30/2021 4:46 AM CDT 09/30/2021 4:47 AM T Katherine Marvin MD LAB - CHEMISTRY [facility] Organization Address City/State/ZIP Co de Phone Number [facility] [address] [address], [place] [phone] * PHOSPHORUS BLOOD (09/30/2021 4:46 AM CDT) Phosphorus 3.3 2.9 - 5.1 mg/dL 09/30/2021 6:21 AM CDT [facility] Blood BLOOD SPECIMEN / Unknown Venipuncture / Unknown 09/30/2021 4:46 AM CDT 09/30/2021 4:47 AM CDT Marcos Freitas MD LAB - CHEMISTRY ORDERABLES [address] [address], [place] [phone] * MAGNESIUM BLOOD (09/30/2021 4:46 AM CDT) Magnesium 2.1 1.6 - 2.6 mg/dL 09/30/2021 6:21 AM CDT [facility] Blood BLOOD SPECIMEN / Unknown Venipuncture / Unknown 09/30/2021 4:46 AM CDT 09/30/2021 4:47 AM CDT Marcos Freitas MD LAB - CHEMISTRY ORDERABLES Performing Organization Address City/[facility]/ZIP Co de Phone Number [address] [address], [place] [phone] * FOLATE (09/30/2021 4:46 AM CDT) Folate 13.2 7.0 - 31.4 ng/mL 09/30/2021 5:52 AM CDT [facility] Blood BLOOD SPECIMEN / Unknown Venipuncture / Unknown 09/30/2021 4:46 AM CDT 09/30/2021 4:47 AM CDT Katherine Marvin MD LAB - CHEMISTRY [facility] [address] [address], [facility] [phone] * VITAMIN B12 (09/30/2021 4:46 AM CDT) Vitamin B12 277 213 - 816 pg/mL 09/30/2021 5:52 AM CDT [facility] Blood BLOOD SPECIMEN / Unknown Venipuncture / Unknown 09/30/2021 4:46 AM CDT 09/30/2021 4:47 AM CDT Katherine Marvin MD LAB - CHEMISTRY [facility] [address] [place] [address], [facility] [phone] * XR CHEST 1VW PORTABLE (09/29/2021 4:07 PM CDT) Anatomical Region Laterality Modality Chest Radiographic Daja ging 09/29/2021 4:20 PM CDT Impressions 09/30/2021 12:21 PM CDT FINDINGS/ IMPRESSION: Bilateral low lung volume with bronchovascular crowding is present. There is no focal consolidation. There is a normal left-sided pleural effusion with associated minor atelectasis. No pneumothorax is seen. The cardiomediastinal silhouette is normal. The aorta is atherosclerotic. No acute fractures are seen. Report drafted by Juan [place] M.D. (resident) I, Dr. CECI MENDOZA M.D. have personally reviewed and interpreted this examination/study. This report was electronically signed by CECI MENDOZA M.D. on 09/30/2021 12:21 PM . Narrative 09/30/2021 12:21 PM CDT EXAMINATION: XR CHEST 1VW PORTABLE HISTORY: S42.402D: Closed fracture of distal end of left humerus with routine healing, unspecified fracture morphology, subsequent encounter COMPARISON: No prior Procedure Note Ceci Mendoza MD - 09/30/2021 EXAMINATION: XR CHEST 1VW PORTABLE HISTORY: S42.402D: Closed fracture of distal end of left humerus with routine healing, unspecified fracture morphology, subsequent encounter COMPARISON: No prior FINDINGS/ IMPRESSION: Bilateral low lung volume with bronchovascular crowding is present.There is no focal consolidation. There is a normal left-sided pleural effusion with associated minor atelectasis. No pneumothorax is seen. The cardiomediastinal silhouette is normal. The aorta is atherosclerotic. No acute fractures are seen. Report drafted by Juan [place] M.D. (resident) I, Dr. CECI MENDOZA M.D. have personally reviewed and interpreted this examination/study. This report was electronically signed by CECI MENDOZA M.D. on 09/30/2021 12:21 PM . Katherine Marvin MD DIAGNOSTIC IMAGING O RDERABLES * TROPONIN I (09/29/2021 3:50 PM CDT) [facility] Troponin I <0.010 <0.032 ng/mL 09/29/2021 4:22 PM T [facility] Blood BLOOD SPECIMEN / Unknown Venipuncture / Unknown 09/29/2021 3:50 PM CDT 09/29/2021 3:52 PM CDT Katherine Marvin MD LAB - CHEMISTRY [facility] Organization Address City/State/ZIP Co de Phone Number [address] [address], [facility] [phone] * (ABNORMAL) CBC W/O DIFFERENTIAL (09/29/2021 3:50 PM CDT) [facility] WBC 4.7 3.5 - 10.5 10 3/uL 09/29/2021 4:06 PM T [facility] RBC 2.10(L) 3.80 - 5.20 10 6/uL 09/29/2021 4:06 PM [facility] Hemoglobin 8.2(L) 12.0 - 15.6 g/dL 09/29/2021 4:06 PM T [facility] Hematocrit 24.9(L) 35.0 - 45.0 % 09/29/2021 4:06 PM T [facility] MCV 118.6(H) 80.7 - 98.3 fL 09/29/2021 4:06 PM CDT [facility] MCH 39.0(H) 26.7 - 34.0 pg 09/29/2021 4:06 PM T [facility] MCHC 32.9 30.8 - 35.9 g/dL 09/29/2021 4:06 PM T [facility] Platelet Count 237 150 - 400 10 3/uL 09/29/2021 4:06 PM T [facility] RDW-SD 62.8(H) 36.0 - 50.0 fL 09/29/2021 4:06 PM T [facility] RDW-CV 14.5 11.2 - 14.8 % 09/29/2021 4:06 PM T [facility] MPV 10.9 9.4 - 12.9 fL 09/29/2021 4:06 PM T [facility] nRBC Absolute 0.00 0 10 3/uL 09/29/2021 4:06 PM T [facility] nRBC Auto 0.0 0 /100 WBC 09/29/2021 4:06 PM T [facility] Blood BLOOD SPECIMEN / Unknown Venipuncture / Unknown 09/29/2021 3:50 PM CDT 09/29/2021 3:52 PM CDT Katherine Marvin MD LAB - HEMATOLOGY ORD ERABLES [address] [address], [facility] [phone] * LACTIC ACID BLOOD (09/29/2021 3:50 PM CDT) Lactic Acid-Stat 1.4 <=2.0 mmol/L 09/29/2021 4:12 PM CDT [facility] Blood BLOOD SPECIMEN / Unknown Venipuncture / Unknown 09/29/2021 3:50 PM CDT 09/29/2021 3:51 PM CDT Katherine Marvin MD LAB - CHEMISTRY [facility] [address] [place] [address], [place] [phone] * (ABNORMAL) GLUCOSE - POINT OF CARE (09/29/2021 3:42 PM CDT) Glucose WB/POC 156(H) 70 - 115 mg/dL 09/29/2021 5:42 PM CDT [facility] Specimen Type Cap Fingerstick 2021 5:42 PM CDT [facility] Blood BLOOD SPECIMEN / Unknown 09/29/2021 3:42 PM CDT 09/29/2021 5:42 PM CDT Provider Unknown LAB - POINT OF CARE ORDERABLES [facility] [address] [place] [address], [place] [phone] * EKG 12-LEAD (09/29/2021 3:31 PM CDT) Only the most recent of2 resultswithin the time period is included. Ventricular Rate 87 BPM [facility] Atrial Rate 87 BPM [facility] MUSE P-R Interval 170 ms H MUSE QRS Duration ms 94 ms [facility] MUSE Q-T Interval ms 378 ms [facility] MUSE QTC Calculation (Bezet) 454 ms [facility] MUSE Calculated P [place] 62 degrees [facility] Calculated R [place] -8 degrees [facility] Calculated T [place] 59 degrees [facility] Interpretation EKG SINUS RHYTHM WITH OCCASIONAL PREMATURE VENTRICULAR COMPLEXES ABNORMAL ECG WHEN COMPARED WITH ECG OF 28-SEP-2021 PREMATURE VENTRICULAR COMPLEXES ARE NOW PRESENT Confirmed by Marko Trejo ([id number]) on 09/29/2021 9:52:40 PM [facility] MUSE 09/29/2021 3:31 PM CDT 09/29/2021 9:52 PM CDT Katherine Marvin MD ECG ORDERABLES [facility] MUSE * CT 3D RECON WO INDEPENDENT WKSN (09/29/2021 7:02 AM CDT) Anatomical Region Laterality Modality Computed Tomogra phy 09/29/2021 6:55 AM CDT Impressions 09/29/2021 8:15 AM CDT IMPRESSION: 1. Three-dimensional rendering for operative planning. Dictated by Reshma Rangel M.D. (college president) Dr. SHEKHAR Kenney MD have personally reviewed and interpreted this examination/study. This report was electronically signed by SHEKHAR MARES MD on 09/29/2021 8:15 AM . Narrative 09/29/2021 8:15 AM CDT EXAMINATION: Three-dimensional rendering HISTORY: S42.402D: Closed fracture of distal end of left humerus with routine healing, unspecified fracture morphology, subsequent encounter TECHNIQUE: Three-dimensional shaded surface rendering of the left elbow was performed by a technologist on a separate three-dimensional workstation at the request of the referring physician and submitted for review. FINDINGS: Comparison is made with a CT of the left elbow from 09/29/2021. The three-dimensional images confirm the finding of a comminuted distal humeral intra-articular fracture. Please see the report from the original study for further details. Procedure Note Shekhar Mares MD - 09/29/2021 EXAMINATION: Three-dimensional rendering HISTORY: S42.402D: Closed fracture of distal end of left humerus with routine healing, unspecified fracture morphology, subsequent encounter TECHNIQUE: Three-dimensional shaded surface rendering of the left elbow was performed by a technologist on a separate three-dimensional workstation at the request of the referring physician and submitted for review. FINDINGS: Comparison is made with a CT of the left elbow from 09/29/2021. The three-dimensional images confirm the finding of a comminuted distal humeral intra-articular fracture. Please see the report from theoriginal study for further details. IMPRESSION: 1. Three-dimensional rendering for operative planning. Dictated by Reshma Rangel M.D. (college president) Dr. SHEKHAR Kenney MD have personally reviewed and interpreted this examination/study. This report was electronically signed by SHEKHAR MARES MD on09/29/2021 8:15 AM . Sherman Reaves MD CT ORDERABLES * BLOOD TYPE VERIFICATION (09/29/2021 6:51 AM CDT) ABO Rh O POS 09/29/2021 7:4 5 AM CDT [facility]OD [facility] LAB Blood Bank BLOOD SPECIMEN / Unknown 09/29/2021 6:51 AM CDT 09/29/2021 6:55 AM CDT Sherman Reaves MD LAB - BLOOD BANK ORD ERABLES Performing Organization Address City/[facility]/ZIP Co de Phone Number [facility]OD [facility] LAB [address] [place] [address], [facility] [phone] * TYPE + SCREEN PANEL (09/29/2021 6:12 AM CDT) Antibody Screen NEG 7:21 AM CDT [facility]OD [facility] LAB ABO Rh O POS 09/29/2021 7:21 AM CDT [facility]OD [facility] LAB Blood Bank BLOOD SPECIMEN / Unknown Venipuncture / Unknown 09/29/2021 6:12 AM CDT 09/29/2021 6:40 AM CDT Sherman Reaves MD LAB - BLOOD BANK ORD ERABLES Performing Organization Address City/[facility]/[place] Co de Phone Number [facility] [address] [place] [address], [facility] [phone] * CT ELBOW LEFT WO CONTRAST (09/29/2021 5:27 AM CDT) Anatomical Region Laterality Modality Upper Extremity Computed Tomogra phy 09/29/2021 5:30 AM CDT Impressions 09/29/2021 7:32 AM CDT Impression: 1.Mildly to moderately displaced intra-articular fracture of the distal humerus. Report drafted by Reshma Rangel (resident) I, Dr. SHEKHAR MARES MD have personally reviewed and interpreted this examination/study. This report was electronically signed by SHEKHAR MARES MD on 09/29/2021 7:32 AM . Narrative 09/29/2021 7:32 AM CDT Procedure Information DATE: 09/29/2021 5:27 AM EXAMINATION: Computed tomography (CT) of the left elbow without contrast TECHNIQUE: CT of the left elbow was performed without contrast according to standard protocol. Clinical Information HISTORY: S42.402D: Closed fracture of distal end of left humerus with routine healing, unspecified fracture morphology, subsequent encounter COMPARISON:None. Findings There is an acute, comminuted, mildly mildly to moderately displaced intra-articular fracture of the distal humerus. A 2.0 cm articular surface fragment is displaced proximally (series 9 image 24). There is no dislocation. There is associated soft tissue swelling. The visualized radius and ulna are normal. An external splint is in placed. Procedure Note Shekhar Mares MD - 09/29/2021 Procedure Information DATE: 09/29/2021 5:27 AM EXAMINATION: Computed tomography (CT) of the left elbow without contrast TECHNIQUE: CT of the left elbow was performed without contrast according tostandard protocol. Clinical Information HISTORY: S42.402D: Closed fracture of distal end of left humerus with routine healing, unspecified fracture morphology, subsequent encounter COMPARISON:None. Findings There is an acute, comminuted, mildly mildly to moderately displaced intra-articular fracture of the distal humerus. A 2.0 cm articularsurface fragment is displaced proximally (series 9 image 24). There is no dislocation. There is associated soft tissue swelling. The visualized radius and ulna are normal. An external splint is in placed. Impression: 1.Mildly to moderately displaced intra-articular fracture of the distal humerus. Report drafted by Reshma Rangel (resident) IDr. SHEKHAR MD have personally reviewed and interpreted this examination/study. This report was electronically signed by SHEKHAR MARES MD on09/29/2021 7:32 AM . Sherman Reaves MD CT ORDERABLES * Moderate Sedation (09/29/2021 3:27 AM CDT) Narrative Marcos Freitas MD - 09/29/2021 3:27 AM CDT Marcos Freitas MD 09/29/2021 5:40 AM Moderate Sedation Date/Time: 09/29/2021 3:27 AM Performed by: Marcos Freitas MD Authorized by: Marcos Freitas MD Consent: Consent obtained: Written Consent given by: Patient Risks, benefits, and alternatives were discussed: yes Risks discussed: Allergic reaction, dysrhythmia, inadequate sedation, nausea, prolonged hypoxia resulting in organ damage, prolonged sedation necessitating reversal, respiratory compromise necessitating ventilatory assistance and intubation and vomiting Alternatives discussed: Analgesia without sedation [place] protocol: Procedure explained and questions answered to patient or proxy's satisfaction: yes Relevant documents present and verified: yes Test results available: yes Imaging studies available: yes Required blood products, implants, devices, and special equipment available: yes Site/side marked: yes Immediately prior to procedure, a time out was called: yes Patient identity confirmed: Arm band Indications: Procedure performed: Fracture reduction Procedure necessitating sedation performed by: Different physician Intended level of sedation: Moderate Pre-sedation assessment: Time since last food or drink: 10 ASA classification: class 2 - patient with mild systemic disease Mouth openin or more finger widths Thyromental distance: 4 finger widths Mallampati score: III - soft palate, base of uvula visible Neck mobility: normal Pre-sedation assessments completed and reviewed: airway patency, anesthesia/sedation history, cardiovascular function, hydration status, mental status, nausea/vomiting, pain level, respiratory function and temperature History of difficult intubation: no Pre-sedation assessment completed: 09/29/2021 3:28 AM Immediate pre-procedure details: Reassessment: Patient reassessed immediately prior to procedure Reviewed: vital signs, relevant labs/tests and NPO status Verified: bag valve mask available, emergency equipment available, intubation equipment available, IV patency confirmed, oxygen available and suction available Procedure details (see MAR for exact dosages): Sedation start time: 09/29/2021 2:50 AM Preoxygenation: Nasal cannula Sedation: Ketamine Intra-procedure monitoring: Blood pressure monitoring, bus monitor, continuous capnometry, continuous pulse oximetry, frequent LOC assessments and frequent vital sign checks Intra-procedure events: none Sedation end time: 09/29/2021 3:20 AM Total sedation time (minutes): 30 Post-procedure details: Post-sedation assessment completed: 09/29/2021 3:45 AM Attendance: Constant attendance by certified staff until patient recovered Recovery: Patient returned to pre-procedure baseline Post-sedation assessments completed and reviewed: airway patency, cardiovascular function, hydration status, mental status, nausea/vomiting, pain level, respiratory function and temperature Patient is stable for discharge or admission: yes Procedure completion: Tolerated well, no immediate complications Marcos Freitas MD PROCEDURE/MINOR SURGICAL ORDERABLES * XR ELBOW LEFT 2VW (09/29/2021 3:24 AM CDT) Only the most recent of2 resultswithin the time period is included. Anatomical Region Laterality Modality Upper Extremity Radiographic Daja ging 09/29/2021 3:25 AM CDT Impressions 09/29/2021 11:56 AM CDT FINDINGS/IMPRESSION: Interval placement of an external splint which obscures underlying osseous and soft tissue structures. Acute comminuted displaced intra-articular fracture of the distal humerus is redemonstrated, grossly unchanged in alignment. Dictated by Mark Wynne D.O. (Grocery Shopper) Dr. CECI Kenney M.D. have personally reviewed and interpreted this examination/study. This report was electronically signed by CECI MENDOZA M.D. on 09/29/2021 11:56 AM . Narrative 09/29/2021 11:56 AM CDT EXAMINATION: XR ELBOW LEFT 2VW HISTORY: S42.402D: Closed fracture of distal end of left humerus with routine healing, unspecified fracture morphology, subsequent encounter COMPARISON: Left elbow radiograph dated 09/29/2021. Procedure Note Ceci Mendoza MD - 09/29/2021 EXAMINATION: XR ELBOW LEFT 2VW HISTORY: S42.402D: Closed fracture of distal end of left humerus with routine healing, unspecified fracture morphology, subsequent encounter COMPARISON: Left elbow radiograph dated 09/29/2021. FINDINGS/IMPRESSION: Interval placement of an external splint which obscures underlyingosseous and soft tissue structures. Acute comminuted displaced intra-articular fracture of the distal humerus is redemonstrated, grossly unchanged in alignment. Dictated by Mark Wynne D.O. (Grocery Shopper) Dr. CECI Kenney M.D. have personally reviewed and interpreted this examination/study. This report was electronically signed by CECI MENDOZA M.D. on 09/29/2021 11:56 AM . Sherman Reaves MD DIAGNOSTIC IMAGING O RDERABLES * XR STRESS ANY JOINT (09/29/2021 1:34 AM CDT) Anatomical Region Laterality Modality Lower Extremity, Upper Extremity Radiographic Imaging 09/29/2021 1:34 AM CDT Impressions 09/29/2021 11:30 AM CDT IMPRESSION: 1.Acute comminuted displaced intra-articular fracture of the distal humerus. Dictated by Mark Wynne D.O. (Grocery Shopper) I, Dr. CECI MENDOZA M.D. have personally reviewed and interpreted this examination/study. This report was electronically signed by CECI MENDOZA M.D. on 09/29/2021 11:30 AM . Narrative 09/29/2021 11:30 AM CDT EXAMINATION: XR ELBOW LEFT 2VW, XR STRESS ANY JOINT, XR HUMERUS LEFT 2VW OR MORE HISTORY: S42.402D: Closed fracture of distal end of left humerus with routine healing, unspecified fracture morphology, subsequent encounter COMPARISON: Outside exams done 09/28/2021. FINDINGS: Left humerus: The proximal humerus is intact without acute fracture. Distal humerus fracture is described below. Bone density is decreased. Left elbow: There is acute, comminuted, displaced intra-articular fracture of the distal humerus. The medial condyle/epicondyle fragment is displaced anteromedially. Visible portions of the proximal radius and ulna are intact. There is no dislocation. Bone density is decreased. Diffuse soft tissue swelling is present. Stress view of the elbow: No significant change in alignment of the distal humeral fracture. Procedure Note Ceci Mendoza MD - 09/29/2021 EXAMINATION: XR ELBOW LEFT 2VW, XR STRESS ANY JOINT, XR HUMERUS LEFT 2VW OR MORE HISTORY: S42.402D: Closed fracture of distal end of left humerus with routine healing, unspecified fracture morphology, subsequent encounter COMPARISON: Outside exams done 09/28/2021. FINDINGS: Left humerus: The proximal humerus is intact without acute fracture. Distal humerus fracture is described below. Bone density is decreased. Left elbow: There is acute, comminuted, displaced intra-articular fracture of the distal humerus. The medial condyle/epicondyle fragment is displaced anteromedially. Visible portions of the proximal radius and ulna are intact. There is no dislocation. Bone density is decreased. Diffuse soft tissue swelling is present. Stress view of the elbow: No significant change in alignment of the distal humeral fracture. IMPRESSION: 1.Acute comminuted displaced intra-articular fracture of the distal humerus. Dictated by Mark Wynne D.O. (Grocery Shopper) Dr. CECI Kenney M.D. have personally reviewed and interpreted this examination/study. This report was electronically signed by CECI MENDOZA M.D. on 09/29/2021 11:30 AM . Sherman Reaves MD DIAGNOSTIC IMAGING O RDERABLES * XR HUMERUS LEFT 2VW OR MORE (09/29/2021 1:33 AM CDT) Anatomical Region Laterality Modality Upper Extremity Radiographic Daja ging 09/29/2021 1:34 AM CDT Impressions 09/29/2021 11:30 AM CDT IMPRESSION: 1.Acute comminuted displaced intra-articular fracture of the distal humerus. Dictated by Mark Wynne D.O. (Grocery Shopper) Dr. CECI Kenney M.D. have personally reviewed and interpreted this examination/study. This report was electronically signed by CECI MENDOZA M.D. on 09/29/2021 11:30 AM . Narrative 09/29/2021 11:30 AM CDT EXAMINATION: XR ELBOW LEFT 2VW, XR STRESS ANY JOINT, XR HUMERUS LEFT 2VW OR MORE HISTORY: S42.402D: Closed fracture of distal end of left humerus with routine healing, unspecified fracture morphology, subsequent encounter COMPARISON: Outside exams done 09/28/2021. FINDINGS: Left humerus: The proximal humerus is intact without acute fracture. Distal humerus fracture is described below. Bone density is decreased. Left elbow: There is acute, comminuted, displaced intra-articular fracture of the distal humerus. The medial condyle/epicondyle fragment is displaced anteromedially. Visible portions of the proximal radius and ulna are intact. There is no dislocation. Bone density is decreased. Diffuse soft tissue swelling is present. Stress view of the elbow: No significant change in alignment of the distal humeral fracture. Procedure Note Ceci Mendoza MD - 09/29/2021 EXAMINATION: XR ELBOW LEFT 2VW, XR STRESS ANY JOINT, XR HUMERUS LEFT 2VW OR MORE HISTORY: S42.402D: Closed fracture of distal end of left humerus with routine healing, unspecified fracture morphology, subsequent encounter COMPARISON: Outside exams done 09/28/2021. FINDINGS: Left humerus: The proximal humerus is intact without acute fracture. Distal humerus fracture is described below. Bone density is decreased. Left elbow: There is acute, comminuted, displaced intra-articular fracture of the distal humerus. The medial condyle/epicondyle fragment is displaced anteromedially. Visible portions of the proximal radius and ulna are intact. There is no dislocation. Bone density is decreased. Diffuse soft tissue swelling is present. Stress view of the elbow: No significant change in alignment of the distal humeral fracture. IMPRESSION: 1.Acute comminuted displaced intra-articular fracture of the distal humerus. Dictated by Mark Wynne D.O. (Grocery Shopper) I, Dr. CECI MENDOZA M.D. have personally reviewed and interpreted this examination/study. This report was electronically signed by CECI MENDOZA M.D. on 09/29/2021 11:30 AM . Waleska Villar PA-C DIAGNOSTIC IMAGING ORDERABLES * DERMATOPATHOLOGY (11/14/2018 12:00 AM CDT) Case Report Dermatopathology Report Case: [id number] Authorizing Provider: Sarath De Guzman MD Collected: 11/14/2018 12:00 AM Ordering Location: [facility] DermPath Lab Received: 11/15/2018 12:29 PM Pathologist: Nancy Schofield MD Specimen: Skin, sternal chest below manubrium 9 12:59 PM CDT DERMATOPATHOLOGY LABORATORY Final Diagnosis Specimen A. SKIN, sternal chest below manubrium: LICHEN PLANUS-LIKE KERATOSIS (BENIGN LICHENOID KERATOSIS) (L82.1) 9 12:59 PM CDT DERMATOPATHOLOGY LABORATORY Clinical History R/O BCC. 9 12:59 PM CDT DERMATOPATHOLOGY LABORATORY Gross Description Specimen A: Received is one formalin filled container labeled with the patient's name and designated sternal chest below manubrium. The specimen consists of a shave biopsy measuring [id number]. Jar 0. 12:59 PM CDT DERMATOPATHOLOGY LABORATORY Microscopic Description Specimen A. SKIN, sternal chest below manubrium: The epidermis is mildly acanthotic. There is a lichenoid infiltrate with vacuolar changes of basilar keratinocytes and scattered necrotic keratinocytes. 12:59 PM CDT DERMATOPATHOLOGY LABORATORY Disclaimer An external and internal positive and negative controls are appropriate for the histochemical, immunohistochemical and immunofluorescence stain(s) in this case (if any), except where stated explicitly. The performance characteristics of the stain(s) cited in this report were developed and its performance characteristic determined by the Dermatopathology Laboratory at [facility], directed by Dr. Frederick Schofield. These tests need not be, and therefore are not, approved by the [place] Food and Drug Administration. The tests are used for clinical purposes. Billing Codes Specimen Charges Stain Charges 24119 1 12:59 PM CDT DERMATOPATHOLOGY LABORATORY Embedded Images 12:59 PM CDT DERMATOPATHOLOGY LABORATORY Pathology/Cytolog y TISSUE SPECIMEN FROM SKIN / Unknown 11/14/2018 11/15/2018 12:29 PM CDT Sarath De Guzman MD LAB - PATHOLOGY/CYTO LOGY ORDERABLES DERMATOPATHOLOGY LABORATORY [facility] - Department of Dermatology [address] [place] [address] 5th Floor Lab B [address] [phone] Care Teams Fundraiser Relationship Specialty Start Date End Date Mervat Kelley APRN-CIA AGENT [address] [address] PCP - General 11/24/21
--- OUTSIDE RECORDS SUMMARY | 2024-05-20 12:59 | XMS_ITS | Clinical Summary ---
Author Organization [facility] Facility Address [address] [address] Care Team Providers Care Marketing Segment Manager Name Role Phone Unavailable Primary Care Provider Unavailabl e Allergies Active Allergy Reactions Criticality Noted Date Comments Cephalexin Other (see comments) 06/27/2020 Codeine Other (see comments) 06/27/2020 Morphine Other (see comments) 06/27/2020 Medications spironolactone (ALDACTONE) 25 MG tablet Take 1 tablet by mouth twice daily 180 tablet 3 09/27/2023 Active Social History Tobacco Use Types Packs/Day Years Used Date Smoking Tobacco: Never Assessed Comments Unknown Sex and Gender Information Value Date Recorded Sex Assigned at Not on file Legal Sex Female 6:09 PM EDT Gender Identity Not on file Sexual Orientation Not on file Plan of Treatment Health Maintenance Due Date Last Done Comments Influenza Vaccine (#1) 2023 9, 02/06/2018, 12/02/2016, Additional history exists Pneumococcal Vaccine: 65+ Years Completed 10/26/2020, 05/18/2016, 04/03/2016, Additional history exists Hepatitis B Vaccine Aged Out No longe r eligible based on patient's age to complete this topic
--- OUTSIDE RECORDS SUMMARY | 2024-05-20 12:59 | XMS_ITS | Clinical Summary ---
Author Organization [facility] Address [address] [place] [address] Care Team Providers Care Director Food Safety Name Role Phone Mervat Kelley SANITATION WORKER-FLEET SERVICE CLERK Primary Care Provider + Source Comments [facility],non-owned Affiliates and Associated Physician Practices is amultiple site organization consisting of ambulatory clinics and hospital sitesin [place], [place], [place] and [place]. This disclosure is being madepursuant to the Care Everywhere program and may not contain all information available regarding this patient. Last updated 17.[facility] Allergies Active Allergy Reactions Criticality Noted [...] you are drinking? Patient does not drink 2 Q3: How often do you have si [...] 71.7 kg (158 lb) 04/06/2022 10:56 AM SONG PLUGGER Height 152.4 cm (5') 12/22/2021 12:39 PM CDT Body Mass Index 30.86 12/22/2021 12:39 PM CDT Plan of Treatment Health Maintenance Due Date Last Done Comments BONE DENSITY TESTING 1940 MEDICARE AWV 12 MONTHS 1940 Respiratory Syncytial Virus (RSV) Vaccine Pt: or over 60 yrs (1 - 1-dose 75+ series) 02/09/2016 COVID-19 VACCINE ( season) 2023 01/23/2022, 09/24/2021, 02/01/2021, Additional history exists INFLUENZA VACCINE (#1) 2023 , 01/15/2021, 01/13/2020, Additional history exists DEPRESSION SCREENING 04/03/2024 DTAP/TDAP/TD VACCINES (2 - Td or Tdap) 09/08/2029 09/09/2019 PNEUMOCOCCAL VACCINE 50+ Completed 021, 05/18/2016, 04/03/2016, Additional history exists ZOSTER VACCINE Completed 03/29/2022, 10/02, 04/03/2016 HEPATITIS B VACCINE Aged Out No longe r eligible based on patient's age to complete this topic HIB VACCINE Aged Out No longer eligi ble based on patient's age to complete this topic HPV VACCINE Aged Out No longer eligi ble based on patient's age to complete this topic MENINGOCOCCAL (Group B) VACCINE Aged Out No longer eligible based on patient's age to complete this topic MENINGOCOCCAL VACCINE Aged Out No mana fernanda eligible based on patient's age to complete this topic Advance Directives * Full Code (Latest Code Status on File) Date Activated Date Inactivated Comments 09/29/2021 4:59 AM 09/30/2021 2:57 PM Care Teams Director Food Safety Relationship Specialty Start Date End Date Mervat Kelley APRN-DAVIS [address] [address] PCP - General 11/24/21
--- OUTSIDE RECORDS SUMMARY | 2024-05-20 12:59 | XMS_ITS | Encounter Summary ---
Author Organization [facility] Health Address [address] [facility] [place] [address] Care Team Providers Care Union Representative Name Role Phone Mervat Kelley BLOCKER AND POLISHER-SEMICONDUCTOR MANUFACTURING TECHNICIAN Primary Care Provider + Encounter Details Date Type Department Care Team (Late st Contact Info) Description 10/05/2022 Lab Requisition [facility] - Pathology Lab [address] [place] [address] Jesus Louis MD [address] [address] Anemia, unspecified Social History Tobacco Use Types Packs/Day [...] Procedure Name Priority Date/Time Associated Diagnosis Comments FLOW CYTOMETRY BONE MARROW Routine 10/05/2022 9:15 AM CDT Anemia, unspecified documented in this encounter Results * FLOW CYTOMETRY BONE MARROW (10/05/2022 9:15 AM CDT) Case Report Flow Cytometry Case: [id number] Authorizing Provider: Jesus Louis MD Collected: 10/05/2022 09:15 AM Ordering Location: [facility] Pathology Lab Received: 10/05/2022 02:15 PM Pathologist: Linda Hauser MD Specimen: Bone Marrow 10/05/2022 4:45 PM CDT [facility] Final Diagnosis Bone marrow, flow cytometric immunophenotypic analysis: - No evidence of non-Hodgkin lymphoma or high-grade myeloid neoplasm. - See interpretation. 10/05/2022 4:45 PM CDT [facility] PATH[facility] Flow Cytometry Interpretation The bone marrow specimen has a viability of 85%. Within the lymphocyte gate, there is no monoclonal B-cell population identified (kappa:lambda ratio = 2.3:1). There is no expanded T-cell population seen. By CD34, 1.1% of all events analyzed are blasts. A bone marrow aspirate smear prepared from the flow cytometry specimen is reviewed for compliance quality performance analyst purposes. The bone marrow specimen shows no evidence of involvement by non-Hodgkin lymphoma or a high-grade myeloid neoplasm. Correlation with clinical findings, the concurrent bone marrow biopsy, and relevant cytogenetic/molecu lar studies is required. 10/05/2022 4:45 PM CDT [facility] PATH[facility] LAB Flow Cytometry Results Differential Result Comment Flow Cell Count /uL 40,800 Total Viability % 85.0 Lymphocytes % 18 Dim CD45 Region % 9 Monocytes % 11 Granulocytes % 61 10/05/2022 4:45 PM CDT [facility] Reason for test Anemia, unspecified 285.9 10/05/2022 4:45 PM CDT [facility] Client Specimen ID # [id number] 10/05/2022 4:45 PM CDT [facility] Number of markers 10 were performed. A-2 Flow CD10 A-3 Flow CD13 A-5 Flow CD20 A-1 Flow CD5 A-4 Flow CD19 A-6 Flow CD33 A-7 Flow CD34 A-8 Flow CD45 A-9 [place]+CD19+ A-10 Lambda+CD19+ 10/05/2022 4:45 PM CDT [facility] Pathologist Location at [facility] [address] 10/05/2022 4:45 PM CDT [facility] Disclaimer Test performed at [facility], [address] [place], [place], [address]. *The established laboratory minimum viability is 70%. [...] high complexity clinical testing. 10/05/2022 4:45 PM CDT [facility] Embedded Images 4:45 PM CDT [facility] Pathology/Cytolo gy BONE MARROW SPECIMEN / Unknown 10/05/2022 9:15 AM CDT 10/05/2022 2:15 PM CDT Jesus Louis MD LAB - PATHOLOGY/CYTO LOGY ORDERABLES [facility] PATH[facility] LAB [address] [facility]. [address] [phone] documented in this encounter Visit Diagnoses Diagnosis Anemia, unspecified documented in this encounter Care Teams Union Representative Relationship Specialty Start Date End Date Mervat Kelley APRN-DAVIS [address] [address] PCP - General 11/24/21 documented as of this encounter
--- OUTSIDE RECORDS SUMMARY | 2024-05-20 12:59 | XMS_ITS | Encounter Summary ---
Author Organization [facility] Address [facility] [facility] [place] [address] Care Team Providers Care Car Rental Deliverer Name Role Phone Andie Ang MD Primary Care Provider + [phone] Mervat Kelley Primary Care Provider + Andie Ang MD Primary Care Provider + [phone] Mervat Kelley Primary Care Provider + Andie Ang MD Primary Care Provider + [phone] Mervat Kelley Primary Care Provider + Encounter Details Date Type Department Care Team (Late st Contact Info) Description 11/15/2018 Lab Requisition [facility] DermPath Lab [address] [facility] [place] [address] Sarath De Guzman MD [address] [place] [address] Social History Tobacco Use Types Packs/Day Years Used Date Smoking Tobacco: Never Assessed Sex and Gender Information Value Date Recorded Sex Assigned at Not on file Gender Identity Not on file Sexual Orientation Not on file documented as of this encounter Plan of Treatment Not on file documented as of this encounter Procedures Procedure Name Priority Date/Time Associated Diagnosis Comments DERMATOPATHOLOGY Routine 11/14/2018 12:0 0 AM CDT documented in this encounter Results * DERMATOPATHOLOGY (11/14/2018 12:00 AM CDT) Case Report Dermatopathology Report Case: [id number] Authorizing Provider: Sarath De Guzman MD Collected: 11/14/2018 12:00 AM Ordering Location: [facility] DermPath Lab Received: 11/15/2018 12:29 PM Pathologist: Nancy Schofield MD Specimen: Skin, sternal chest below manubrium 12:59 PM CDT DERMATOPATHOLOGY LABORATORY Final Diagnosis Specimen A. SKIN, sternal chest below manubrium: LICHEN PLANUS-LIKE KERATOSIS (BENIGN LICHENOID KERATOSIS) (L82.1) 12:59 PM CDT DERMATOPATHOLOGY LABORATORY Clinical History R/O BCC. 12:59 PM CDT DERMATOPATHOLOGY LABORATORY Gross Description Specimen A: Received is one formalin filled container labeled with the patient's name and designated sternal chest below manubrium. The specimen consists of a shave biopsy measuring [id number]. Jar 0. 12:59 PM CDT DERMATOPATHOLOGY LABORATORY [...] characteristic determined by the Dermatopathology Laboratory at [facility], directed by Dr. Frederick Schofield. These tests need not be, and therefore are not, approved by the [place] Food and Drug Administration. The tests are used for clinical purposes. Billing Codes Specimen Charges Stain Charges 09274 1 12:59 PM CDT DERMATOPATHOLOGY LABORATORY Embedded Images 12:59 PM CDT DERMATOPATHOLOGY LABORATORY Pathology/Cytolog y TISSUE SPECIMEN FROM SKIN / Unknown 11/14/2018 11/15/2018 12:29 PM CDT Sarath De Guzman MD LAB - PATHOLOGY/CYTO LOGY ORDERABLES DERMATOPATHOLOGY LABORATORY [facility] - Department of Dermatology [address] [facility], 5th [place] [address], [facility] [phone] documented in this encounter Visit Diagnoses Not on filedocumented in this encounter Care Teams Car Rental Deliverer Relationship Specialty Start Date End Date Andie Ang MD [address] [phone] PCP - General 08/18/17 09/29/21 Mervat Kelley APRN-SALVAGER HELPER [address] [place] [address] Dr Barba [address] [place] [phone] PCP - General Nurse Practitioner 09/30/21 09/30/21 Andie Ang MD [address] [phone] PCP - General 10/01/21 10/12/21 Mervat Kelley APRN-SALVAGER HELPER [address] [phone] PCP - General 10/13/21 10/31/21 Andie Ang MD [address] [phone] PCP - General 11/01/21 11/23/21 Mervat Kelley APRN-SALVAGER HELPER [address] [phone] PCP - General 11/24/21 documented as of this encounter
== END 2024-05-20 10:02 | disposition home or self-care (01) ==
PROVIDERS: PCP Internal Medicine
DX: D46.9 Myelodysplastic syndrome, unspecified (principal)
CPT/HCPCS: 36415; 85025; 85055

== ENCOUNTER 2024-05-24 09:39 | Outpatient (CLI) | payer MEDICARE, SELFPAY ==
[2024-05-24 09:57] LABS: Hematocrit 25.5 % (37.0-47.0); Hemoglobin 8.3 g/dL (12.0-15.0); Mean Corpuscular HGB Conc 32.5 g/dl (32-36); Mean Corpuscular Hemoglobin 35.3 pg (26-34); Mean Corpuscular Volume 108.5 fl (80-100); Mean Platelet Volume 10.5 fl (7.4-10.4); Platelet Count Result 230 k/mm3 (150-375); Red Blood Count 2.35 M/mm3 (4.2-5.4); Red Cell Distribution Width 17.7 % (11.5-14.5)
--- OUTSIDE RECORDS SUMMARY | 2024-05-24 10:18 | XMS_ITS | Clinical Summary ---
Author Organization [facility] Address [address], [address] [address] Phone Care Team Providers Care Edging Machine Catcher Name Role Phone ReinaldotravonMervat APRN Primary Care Provider [phone] Medications polyethylene glycol (MIRALAX) Powder Use entire [...] age to complete this topic Insurance MEDICARE [facility] Care Teams Edging Machine Catcher Relationship Specialty Start Date End Date Mervat Kelley APRN PCP - General Advanced Practice Nurse 06/12/17
--- OUTSIDE RECORDS SUMMARY | 2024-05-24 10:18 | XMS_ITS | Patient Health Summary ---
Author Organization [facility] Address [address] 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 This disclosure is being madepursuant to the Care Everywhere program and may not contain all information available regarding this patient. 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 The bone marrow specimen shows no evidence of involvement by non-Hodgkin lymphoma or a high-grade myeloid neoplasm. Correlation with clinical findings, the concurrent bone marrow biopsy, and relevant cytogenetic/molecu lar studies is required. 10/05/2022 4:[address] [facility] PATHOLOGY [facility] Flow Cytometry Results Differential Result Comment Flow Cell Count /uL 40,800 Total Viability % 85.0 Lymphocytes % 18 Dim CD45 Region % 9 Monocytes % 11 Granulocytes % 61 10/05/2022 4:45 PM CDT [facility] PATH[facility] Reason for test Anemia, unspecified 285.9 10/05[facility]2022 4:[facility] Client Specimen ID # [id number] 10/05/2022 4:[address] [facility] Number of markers 10 were performed. A-2 Flow CD10 A-3 Flow CD13 A-5 Flow CD20 A-1 Flow CD5 A-4 Flow CD19 A-6 Flow CD33 A-7 Flow CD34 A-8 Flow CD45 A-9 [place]+CD19+ A-10 Lambda+CD19+ 10/05/2022 4:45 PM [facility] Pathologist Location at [facility] 10/05/2022 4:45 PM CDT [facility] PATH[facility] LAB Disclaimer Test performed at [facility], [address] [place] [address], [address]. *The established laboratory minimum viability is 70%. [...] high complexity clinical testing. 10/05/2022 4:45 PM [facility] Embedded Images 4:45 PM [facility] Pathology/Cytolo gy BONE MARROW SPECIMEN / Unknown 10/05/2022 9:15 AM CDT 10/05/2022 2:15 PM CDT Jesus Louis MD LAB - PATHOLOGY/CYTO LOGY ORDERABLES [facility] [address] [phone] * BONE MARROW BIOPSY (STL) (10/05/2022 9:15 AM CDT) Case Report Bone Marrow Patholog y Report Case: [id number] Authorizing Provider: Jesus Louis MD Collected: 10/05/2022 09:15 AM Ordering Location: [facility] Pathology Lab Received: 10/06/2022 01:27 PM Pathologist: Linda Hauser MD Specimens: A) - Bone Marrow Clot, Fluoro-guided bone marrow aspiration B) - Bone Marrow Core, Fluoro-guided bone marrow core bx 10/07/2022 1:40 PM CDT [facility] Final Diagnosis Bone marrow, aspirate, clot section, and core biopsy: - 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 10/07/2022 1:[address] [facility] Peripheral Smear Description CBC Data: WBC - 2.2, Hgb - 6.3, MCV - 122.4, MCHC - 31.2, and Platelets - 260. Leukocyte number: decreased. Granulocyte morphology: normal. Lymphocyte morphology: normal. Erythrocyte number: decreased. Erythrocyte morphology: macrocytic. Anisopoikilocytosis: mild. Polychromasia: mild. Platelet number: normal. Platelet morphology: normal. 10/07/2022 1:[address] [facility] Bone Marrow Aspirate [...] Control is appropriately reactive. 10/07/2022 1:[address] [facility] Bone Marrow Core [...] an increased number of early erythroid progenitors. [id number] demonstrates additional, more mature erythroid lineage cells, confirming erythroid hyperplasia. Myeloperoxidase is positive in relatively fewer numbers of myeloid precursors. CD3 and CD20 show a normal number and distribution of T-cells and B-cells, respectively. Reticulin staining shows no significant marrow fibrosis (MF-0), and trichrome staining shows no collagen deposition. 10/07/2022 1:40 PM CDT [facility] Flow Cytometry Summary Concurrent flow cytometry ([id number]) shows no evidence of non-Hodgkin lymphoma or high-grade myeloid neoplasm. 10/07/2022 1:40 PM CDT [facility] Clinical History 82 year old woman with macrocytic anemia. 10/07/2022 1:40 PM CDT [facility] Materials Received Received are 22 slides and 3 blocks (A1, A2; B1) labeled [id number] along with a copy of the outside pathology report. The materials originate from [facility], [address] [place] [address] [place] [address]. All original materials are returned to the referring institution, along with a copy of our final report. 10/07/2022 1:40 PM CDT [facility] Pathologist Location at [facility] 10/07/2022 1:40 PM CDT [facility] Disclaimer The performance characteristics of all immunohistochemical and indirect immunofluorescence stains (if any) cited in this report were determined by the Histopathology Laboratory of [facility]. Some of these tests were developed [...] attending (teaching) pathologist. 10/07/2022 1:40 PM CDT [facility] Embedded Images 10/07/2022 1:40 PM CDT [facility] Pathology/Cytology BONE MARROW SPECIMEN / Unknown 10/05/2022 9:15 AM CDT 10/06/2022 1:27 PM CDT Miscellaneous samples (specimen) BONE MARROW SPECIMEN / Unknown 10/05/2022 9:15 AM CDT 10/06/2022 1:27 PM CDT Jesus Louis MD LAB - PATHOLOGY/CYTO LOGY ORDERABLES Performing Organization Address City/State/[facility] Co de Phone Number [facility] [address] [place] [phone] [place] [address] * XR ELBOW LEFT 3VW OR MORE (04/06/2022 10:54 AM INTERNATIONAL MARKETING INTERN) Only the most recent of6 resultswithin the time period is included. Anatomical Region Laterality Modality Upper Extremity Radiographic Daja ging 04/06/2022 11:4 3 AM [employer]ET[employer] INTERN Impressions 04/06/2022 11:44 AM INTER[employer] MARKETING INTERN IMPRESSION: Distal humeral fracture, healing and unchanged in alignment. > Interpreting Provider: Shekhar Mares MD on 04/06/2022 11:44 AM Narrative 04/06/2022 11:44 AM [employer]ET[employer] INTERN PROCEDURE: XR ELBOW LEFT 3VW OR MORE, DATE/TIME OF EXAM: 04/06/2022 10:54 AM, LOCATION [facility] INDICATION: S42.402D: Closed fracture of [...] MORE, DATE/TIME OF EXAM: 0:54 AM, LOCATION [facility] INDICATION: S42.402D: Closed fracture of [...] Macrocytosis 2+(A) None 09/30/2021 7:27 AM CDT [facility] Blood BLOOD SPECIMEN / Unknown Venipuncture / Unknown 09/30/2021 6:41 AM CDT 09/30/2021 6:42 AM CDT Marcos Freitas MD LAB - HEMATOLOG Y ORDERABLES [facility] [address] [place] [phone], [facility] [phone] * (ABNORMAL) CBC W AUTO DIFFERENTIAL (09/30/2021 6:41 AM CDT) Only the most recent of2 resultswithin the time period is included. WBC 3.8 3.5 - 10.5 10 3/uL 09/30/2021 6:51 AM [facility] RBC 2.06(L) 3.80 - 5.20 10 6/uL 09/30/2021 6:51 AM [facility] Hemoglobin 8.1(L) 12.0 - 15.6 g/dL 09/30/2021 6:51 AM [facility] Hematocrit 24.6(L) 35.0 - 45.0 % 09/30/2021 6:51 AM [facility] MCV 119.4(H) 80.7 - 98.3 fL 09/30/2021 6:51 AM [facility] MCH 39.3(H) 26.7 - 34.0 pg 09/30/2021 6:51 AM [facility] MCHC 32.9 30.8 - 35.9 g/dL 09/30/2021 6:51 AM [facility] Platelet Count 218 150 - 400 10 3/uL 09/30/2021 6:51 AM [facility] RDW-SD 64.1(H) 36.0 - 50.0 fL 09/30/2021 6:51 AM [facility] RDW-CV 14.6 11.2 - 14.8 % 09/30/2021 6:51 AM [facility] MPV 11.7 9.4 - 12.9 fL 09/30/2021 6:51 AM [facility] nRBC Absolute 0.00 0 10 3/uL 09/30/2021 6:51 AM [facility] nRBC Auto 0.0 0 /100 WBC 09/30/2021 6:51 AM [facility] Neutrophils % 49.5 35.0 - 70.0 % 09/30/2021 6:51 AM [facility] Lymphocytes % 35.1 20.0 - 43.0 % 09/30/2021 6:51 AM [facility] Monocytes % 12.3 5.0 - 13.0 % 09/30/2021 6:51 AM [facility] Eosinophils % 2.1 0.0 - 6.0 % 09/30/2021 6:51 AM [facility] Basophil % 0.5 0.0 - 2.0 % 09/30/2021 6:51 AM [facility] Neutrophils Absolute 1.89 1.60 - 7.00 10 3/uL 09/30/2021 6:51 AM [facility] Lymphocyte Absolute 1.34 1.10 - 3.90 10 3/uL 09/30/2021 6:51 AM [facility] Monocytes Absolute 0.47 0.26 - 1.07 10 3/uL 09/30/2021 6:51 AM [facility] Eosinophils Absolute 0.08 0.00 - 0.47 10 3/uL 09/30/2021 6:51 AM [facility] Basophils Absolute 0.02 0.00 - 0.08 10 3/uL 09/30/2021 6:51 AM [facility] Immature Granulocytes % 0.5 0.0 - 1.0 % 09/30/2021 6:51 AM [facility] Immature Granulocytes Absolute 0.02 09/30/2021 6:51 AM [facility] Immature Platelet Fraction 5.1 1.1 - 6.2 % 09/30/2021 6:51 AM [facility] Blood BLOOD SPECIMEN / Unknown Venipuncture / Unknown 09/30/2021 6:41 AM CDT 09/30/2021 6:42 AM [facility] Marcos Freitas MD LAB - HEMATOLOG Y ORDERABLES Performing Organization Address City/State/[facility] Co de Phone Number [facility] [address] [place] [phone] [phone] * (ABNORMAL) URINALYSIS W/MICROSCOPIC NO CULTURE (09/30/2021 6:38 AM [facility]) Color UA Yellow Straw, Yellow 09/30/2021 6:52 AM [facility] Clarity UA Clear Clear 09/30/2021 6:52 AM [facility] Specific [place] Belt UA 1.009 1.005 - 1.030 09/30/2021 6:52 AM [facility] pH UA 7.0 5.0 - 8.0 pH 09/30/2021 6:52 AM [facility] Protein UA Negative Negative 09/30/2021 6:52 AM [facility] Glucose UA Negative Negative 09/30/2021 6:52 AM [facility] Ketone UA Negative Negative 09/30/2021 6:52 AM [facility] Bilirubin UA Negative Negative 09/30/2021 6:52 AM [facility] Blood UA Negative Negative 09/30/2021 6:52 AM [facility] Nitrite UA Negative Negative 09/30/2021 6:52 AM [facility] Leukocyte Esterase Negative Negative 09/30/2021 6:52 AM [facility] Urobilinogen UA 4.0(A) Negative mg/dL 09/30/2021 6:52 AM [facility] RBC UA 0-2 None Seen, 0-2, 3-5 /HPF 09/30/2021 6:52 AM [facility] WBC UA 0-5 None Seen, 0-5 /HPF 09/30/2021 6:52 AM [facility] Squamous Epithelial Cells UA 0-2 None Seen, 0-2, 3-5 /HPF 09/30/2021 6:52 AM [facility] Mucus UA 1+ /LPF 09/30/2021 6:52 AM [facility] Urine URINE SPECIMEN OBTAINED BY CLEAN CATCH PROCEDURE / Unknown Collection / Unknown 09/30/2021 6:38 AM CDT 09/30/2021 6:38 AM [facility] - 09/30/2021 6:52 AM CDT Katherine Marvin MD LAB - URINALYSIS ORD ERABONILLA [address] [address], [place] [phone] * (ABNORMAL) IRON + TRANSFERRIN PANEL (09/30/2021 5:09 AM CDT) Iron 59 40 - 150 ug/dL 09/30/2021 6:31 AM CDT [facility] Transferrin 188 174 - 382 mg/dL 09/30/2021 6:31 AM CDT [facility] Transferrin Saturation % 25 16 - 50 % 09/30/2021 6:31 AM CDT [facility] TIBC Calculated 235(L) 240 - 450 ug/dL 09/30/2021 6:31 AM CDT [facility] Blood BLOOD SPECIMEN / Unknown Venipuncture / Unknown 09/30/2021 5:09 AM CDT 09/30/2021 5:09 AM CDT Katherine Marvin MD LAB - CHEMISTRY [facility] [address] [address], [place] [phone] * FERRITIN (09/30/2021 5:09 AM CDT) Pathologist [facility] Ferritin 160 13 - 204 ng/mL 09/30/2021 6:51 AM CDT [facility] Blood BLOOD SPECIMEN / Unknown Venipuncture / Unknown 09/30/2021 5:09 AM CDT 09/30/2021 5:09 AM CDT Katherine Marvin MD LAB - CHEMISTRY [facility] [address] [address], [place] [phone] * PT-INR [facility] (09/30/2021 4:46 AM CDT) PT 14.2 12.1 - 14.8 Seconds 09/30/2021 5:15 AM [facility] INR 1.1 See Comment 09/30/2021 5:15 AM [facility] Comment:The suggested therap eutic range for standard coumadin (warfarin) therapy is an INR of 2.0-3.0. For high-risk patients (Mechanical Mitral Valve Prosthesis, etc.), the suggested prophylactic therapeutic range is an INR of 2.5-3.5. Blood BLOOD SPECIMEN / Unknown Venipuncture / Unknown 09/30/2021 4:46 AM CDT 09/30/2021 4:47 AM CDT Marcos Freitas MD LAB - COAGULATI ON ORDERABLES [facility] [address] [place] [address], [facility] [phone] * (ABNORMAL) COMPREHENSIVE METABOLIC PANEL (09/30/2021 4:46 AM CDT) Only the most recent of2 resultswithin the time period is included. Pathologist [facility] BUN 6(L) 7 - 26 mg/dL 09/30/2021 6:21 AM [facility] Creatinine 0.54(L) 0.56 - 0.96 mg/dL 09/30/2021 6:21 AM [facility] Sodium 143 136 - 145 mmol/L 09/30/2021 6:21 AM [facility] Potassium 5.0(H) 3.5 - 4.5 mmol/L 09/30/2021 6:21 AM [facility] Comment:Hemolysis detected i n this specimen. Hemolysis may cause false elevations in potassium leading to pseudohyperkalemia or masked hypokalemia. Recommend repeat testing if clinically indicated. Chloride 105 98 - 107 mmol/L 09/30/2021 6:21 AM [facility] CO2 28 22 - 29 mmol/L 09/30/2021 6:21 AM [facility] Glucose 120(H) 70 - 115 mg/dL 09/30/2021 6:21 AM [facility] Calcium 8.2(L) 8.4 - 10.2 mg/dL 09/30/2021 6:21 AM [facility] Protein Total 6.1 6.0 - 8.3 g/dL 09/30/2021 6:21 AM [facility] Comment:Hemolysis detected i n this specimen. Hemolysis is known to cause elevations in this analyte. Caution should be exercised in the interpretation of this result. Recommend repeat testing if clinically indicated. Albumin 3.3(L) 3.4 - 5.0 g/dL 09/30/2021 6:21 AM [facility] Bilirubin Total 0.7 0.2 - 1.2 mg/dL 09/30/2021 6:21 AM [facility] Alkaline Phosphatase 29(L) 40 - 150 U/L 09/30/2021 6:21 AM [facility] ALT 32 5 - 55 U/L 09/30/2021 6:21 AM [facility] AST 25 5 - 34 U/L 09/30/2021 6:21 AM [facility] Comment:Hemolysis detected i n this specimen. Hemolysis is known to cause elevations in this analyte. Caution should be exercised in the interpretation of this result. Recommend repeat testing if clinically indicated. Anion Gap 15 8 - 18 09/30/2021 6:21 AM [facility] BUN/Creatinine Ratio 11 7 - 23 09/03 6:21 AM [facility] Osmolality Calculated 295 270 - 300 mOsm/kg 09/30/2021 6:21 AM [facility] Albumin/Globulin Ratio 1.2 1.1 - 2.3 09/30/2021 6:21 AM [facility] eGFR by CKD-EPI >90 >=90 mL/min/1 .73 m2 09/30/2021 6:21 AM [facility] Blood BLOOD SPECIMEN / Unknown Venipuncture / Unknown 09/30/2021 4:46 AM CDT 09/30/2021 4:47 AM T Katherine Marvin MD LAB - CHEMISTRY [facility] Organization Address City/State/ZIP Co de Phone Number [facility] [address] [address], [place] [phone] * PHOSPHORUS BLOOD (09/30/2021 4:46 AM CDT) Phosphorus 3.3 2.9 - 5.1 mg/dL 09/30/2021 6:21 AM CDT [facility] Blood BLOOD SPECIMEN / Unknown Venipuncture / Unknown 09/30/2021 4:46 AM CDT 09/30/2021 4:47 AM CDT Marcos Freitas MD LAB - CHEMISTRY ORDERABLES [address] [address], [place] [phone] * MAGNESIUM BLOOD (09/30/2021 4:46 AM CDT) Magnesium 2.1 1.6 - 2.6 mg/dL 09/30/2021 6:21 AM CDT [facility] Blood BLOOD SPECIMEN / Unknown Venipuncture / Unknown 09/30/2021 4:46 AM CDT 09/30/2021 4:47 AM CDT Marcos Freitas MD LAB - CHEMISTRY ORDERABLES Performing Organization Address City/[facility]/ZIP Co de Phone Number [address] [address], [place] [phone] * FOLATE (09/30/2021 4:46 AM CDT) Folate 13.2 7.0 - 31.4 ng/mL 09/30/2021 5:52 AM CDT [facility] Blood BLOOD SPECIMEN / Unknown Venipuncture / Unknown 09/30/2021 4:46 AM CDT 09/30/2021 4:47 AM CDT Katherine Marvin MD LAB - CHEMISTRY [facility] [address] [address], [facility] [phone] * VITAMIN B12 (09/30/2021 4:46 AM CDT) Vitamin B12 277 213 - 816 pg/mL 09/30/2021 5:52 AM CDT [facility] Blood BLOOD SPECIMEN / Unknown Venipuncture / Unknown 09/30/2021 4:46 AM CDT 09/30/2021 4:47 AM CDT Katherine Marvin MD LAB - CHEMISTRY [facility] [address] [place] [address], [facility] [phone] * XR CHEST 1VW PORTABLE (09/29/2021 4:07 [...] * TROPONIN I (09/29/2021 3:50 PM CDT) [facility] Troponin I <0.010 <0.032 ng/mL 09/29/2021 4:22 PM T [facility] Blood BLOOD SPECIMEN / Unknown Venipuncture / Unknown 09/29/2021 3:50 PM CDT 09/29/2021 3:52 PM CDT Katherine Marvin MD LAB - CHEMISTRY [facility] Organization Address City/State/ZIP Co de Phone Number [address] [address], [facility] [phone] * (ABNORMAL) CBC W/O DIFFERENTIAL (09/29/2021 3:50 PM CDT) [facility] WBC 4.7 3.5 - 10.5 10 3/uL 09/29/2021 4:06 PM T [facility] RBC 2.10(L) 3.80 - 5.20 10 6/uL 09/29/2021 4:06 PM [facility] Hemoglobin 8.2(L) 12.0 - 15.6 g/dL 09/29/2021 4:06 PM T [facility] Hematocrit 24.9(L) 35.0 - 45.0 % 09/29/2021 4:06 PM T [facility] MCV 118.6(H) 80.7 - 98.3 fL 09/29/2021 4:06 PM CDT [facility] MCH 39.0(H) 26.7 - 34.0 pg 09/29/2021 4:06 PM T [facility] MCHC 32.9 30.8 - 35.9 g/dL 09/29/2021 4:06 PM T [facility] Platelet Count 237 150 - 400 10 3/uL 09/29/2021 4:06 PM T [facility] RDW-SD 62.8(H) 36.0 - 50.0 fL 09/29/2021 4:06 PM T [facility] RDW-CV 14.5 11.2 - 14.8 % 09/29/2021 4:06 PM T [facility] MPV 10.9 9.4 - 12.9 fL 09/29/2021 4:06 PM T [facility] nRBC Absolute 0.00 0 10 3/uL 09/29/2021 4:06 PM T [facility] nRBC Auto 0.0 0 /100 WBC 09/29/2021 4:06 PM T [facility] Blood BLOOD SPECIMEN / Unknown Venipuncture / Unknown 09/29/2021 3:50 PM CDT 09/29/2021 3:52 PM CDT Katherine Marvin MD LAB - HEMATOLOGY ORD ERABLES [address] [address], [facility] [phone] * LACTIC ACID BLOOD (09/29/2021 3:50 PM CDT) Lactic Acid-Stat 1.4 <=2.0 mmol/L 09/29/2021 4:12 PM CDT [facility] Blood BLOOD SPECIMEN / Unknown Venipuncture / Unknown 09/29/2021 3:50 PM CDT 09/29/2021 3:51 PM CDT Katherine Marvin MD LAB - CHEMISTRY ORDShell [facility] [address] [place] [address], [place] [phone] * (ABNORMAL) GLUCOSE - POINT OF CARE (09/29/2021 3:42 PM CDT) Glucose WB/POC 156(H) 70 - 115 mg/dL 09/29/2021 5:42 PM CDT [facility] Specimen Type Cap Fingerstick 2021 5:42 PM CDT [facility] Blood BLOOD SPECIMEN / Unknown 09/29/2021 3:42 PM CDT 09/29/2021 5:42 PM CDT Provider Unknown LAB - POINT OF CARE ORDERABLES [facility] [address] [place] [address], [place] [phone] * EKG 12-LEAD (09/29/2021 3:31 PM CDT) Only the most recent of2 resultswithin the time period is included. Ventricular Rate 87 BPM [facility] Atrial Rate 87 BPM [facility] P-R Interval 170 ms H MUSE QRS Duration ms 94 ms [facility] Q-T Interval ms 378 ms [facility] QTC Calculation (Bezet) 454 ms [facility] Calculated P [place] 62 degrees [facility] Calculated R [place] -8 degrees [facility] Calculated T [place] 59 degrees [facility] Interpretation EKG SINUS RHYTHM WITH OCCASIONAL PREMATURE VENTRICULAR COMPLEXES ABNORMAL ECG WHEN COMPARED WITH ECG OF 28-SEP-2021 PREMATURE VENTRICULAR COMPLEXES ARE NOW PRESENT Confirmed by Marko Trejo ([id number]) on 09/29/2021 9:52:40 PM [facility] 09/29/2021 3:31 PM CDT 09/29/2021 9:52 PM CDT Katherine Marvin MD ECG ORDERABLES [facility] * CT 3D RECON WO INDEPENDENT WKSN (09/29/2021 7:02 AM CDT) Anatomical Region Laterality Modality Computed Tomogra phy 09/29/2021 6:55 AM CDT Impressions 09/29/2021 8:15 AM CDT IMPRESSION: 1. Three-dimensional rendering for operative planning. Dictated by Reshma Rangel M.D. (residential energy auditor) Dr. SHEKHAR Kenney MD have personally reviewed [...] operative planning. Dictated by Reshma Rangel M.D. (residential energy auditor) Dr. SHEKHAR Kenney MD have personally reviewed and interpreted this examination/study. This report was electronically signed by SHEKHAR MARES MD on09/29/2021 8:15 AM . Sherman Reaves MD CT ORDERABLES * BLOOD TYPE VERIFICATION (09/29/2021 6:51 AM CDT) ABO Rh O POS 09/29/2021 7:4 5 AM CDT [facility] Blood Bank BLOOD SPECIMEN / Unknown 09/29/2021 6:51 AM CDT 09/29/2021 6:55 AM CDT Sherman Reaves MD LAB - BLOOD BANK ORD ERABLES Performing Organization Address City/[facility]/ZIP Co de Phone Number [facility] [address] [place] [address], [facility] [phone] * TYPE + SCREEN PANEL (09/29/2021 6:12 AM CDT) Antibody Screen NEG 7:21 AM CDT [facility] ABO Rh O POS 09/29/2021 7:21 AM CDT [facility] Blood Bank BLOOD SPECIMEN / Unknown Venipuncture / Unknown 09/29/2021 6:12 AM CDT 09/29/2021 6:40 AM CDT Sherman Reaves MD LAB - BLOOD BANK ORD ERABLES Performing Organization Address City/[facility] Co de Phone Number [facility] [address] [place] [address], [facility] [phone] * CT ELBOW LEFT WO CONTRAST (09/29/2021 [...] and vomiting Alternatives discussed: Analgesia without sedation [place] protocol: Procedure explained and questions answered to [...] Sedation: Ketamine Intra-procedure monitoring: Blood pressure monitoring, monitor tech, continuous capnometry, continuous pulse oximetry, frequent LOC [...] in alignment. Dictated by Mark Wynne D.O. ([employer]) Dr. CECI Kenney M.D. have personally reviewed [...] in alignment. Dictated by Mark Wynne D.O. ([employer]) Dr. CECI Kenney M.D. have personally reviewed [...] distal humerus. Dictated by Mark Wynne D.O. ([employer]) I, Dr. CECI MENDOZA M.D. have personally [...] distal humerus. Dictated by Mark Wynne D.O. ([employer]) Dr. CECI Kenney M.D. have personally reviewed [...] distal humerus. Dictated by Mark Wynne D.O. ([employer]) Dr. CECI Kenney M.D. have personally reviewed [...] distal humerus. Dictated by Mark Wynne D.O. ([employer]) I, Dr. CECI MENDOZA M.D. have personally reviewed and interpreted this examination/study. This report was electronically signed by CECI MENDOZA M.D. on 09/29/2021 11:30 AM . Waleska Villar PA-C DIAGNOSTIC IMAGING ORDERABLES * DERMATOPATHOLOGY (11/14/2018 12:00 AM CDT) Case Report Dermatopathology Report Case: [id number] Authorizing Provider: Sarath De Guzman MD Collected: 11/14/2018 12:00 AM Ordering Location: [facility] DermPath Lab Received: 11/15/2018 12:29 PM Pathologist: [...] specimen consists of a shave biopsy measuring [id number]. Jar 0. 12:59 PM CDT DERMATOPATHOLOGY LABORATORY [...] characteristic determined by the Dermatopathology Laboratory at [facility], directed by Dr. Frederick Schofield. These tests need not be, and therefore are not, approved by the [place] Food and Drug Administration. The tests are used for clinical purposes. Billing Codes Specimen Charges Stain Charges 55019 1 12:59 PM CDT DERMATOPATHOLOGY LABORATORY Embedded Images 12:59 PM CDT DERMATOPATHOLOGY LABORATORY Pathology/Cytolog y TISSUE SPECIMEN FROM SKIN / Unknown 11/14/2018 11/15/2018 12:29 PM CDT Sarath De Guzman MD LAB - PATHOLOGY/CYTO LOGY ORDERABLES DERMATOPATHOLOGY LABORATORY [facility] - Department of Dermatology [address] [place] [address] 5[address] Floor Lab [address] [phone] Care Teams Job Boss Relationship Specialty Start Date End Date Mervat Kelley APRN-[employer] [address] [id number] PCP - General 11/24/21
--- OUTSIDE RECORDS SUMMARY | 2024-05-24 10:18 | XMS_ITS | Clinical Summary ---
Author Organization [facility] Medical Office Building B Address [address] [place] [address] Care Team Providers Care Commercial Accountant Name Role Phone Bryan Davey DO Primary Care Provider [phone] Allergies Active Allergy Reactions Criticality Noted Date [...] 10 mg tabletIndicatio ns:MDS (myelodysplasti c syndrome) ([facility]) Take 1 tablet (10 mg total) by mouth every 6 (six) hours as needed for nausea or vomiting 120 tablet 3 4 Active acyclovir (ZOVIRAX) 400 mg tabletIndicatio ns:MDS (myelodysplasti c syndrome) ([facility]) Take 1 tablet (400 mg total) by [...] 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 30 tablet 4 Active oxyBUTYnin [...] (06/06/2018): Added automatically from request for surgery [id number] Encounters Date Type Department Care Team Description 05/24/2024 Telephone [facility] [address] [place] [address] Office [facility] [address] [place] [address] Radha Veliz RN 05/24/[address] [place] [address] Chalino Chapa MD 05/20/2024 Telephone [facility] [address] [place] [address] Office [facility] [address] [place] [address] Radha Veliz RN 05/20/2024 Telephone [facility] [address] [place] [address] Office [facility] [address] [place] [address] Radha Veliz RN 05/17/2024 1:00 PM ACCOUNT PLANNER Infusion [address] [place] [address] MDS (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 syndrome) (HCC) (Primary Dx); Encounter for care related to Port-a-Cath 05/17/2024 Orders Only [facility] [address] [place] [address] [address] [place] [address] Chalino Chapa MD MDS (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 syndrome) (HCC) (Primary Dx) 05/17/[address] [place] [address] Karen Donaldson RN 05/16/2024 10:30 AM ACCOUNT PLANNER Lab [address] [place] [address] MDS (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 syndrome) (HCC) 05/16/2024 Telephone [facility] [address] [place] [address] Office [facility] [address] [place] [address] Radha Veliz RN 05/16/[address] [place] [address] Yadi Gtz RN 05/16/[address] [place] [address] Chalino Chapa MD 05/16/2024 Orders Only [facility] [address] [place] [address] Medical Office [facility] [address] [place] [address] Chalino Chapa MD MDS (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 syndrome) (HCC) (Primary Dx) 05/10/2024 11:00 AM ACCOUNT PLANNER Infusion [address] [address] Anemia, unspecified type (Primary Dx); MDS (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 syndrome) (HCC) 05/10/2024 9:45 AM ACCOUNT PLANNER Lab [address] [place] [address] Anemia, unspecified type (Primary Dx); MDS (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 syndrome) (HCC) 05/10/2024 Orders Only [facility] [address] [place] [address] Office [facility] [address] [place] [address] Chalino Chapa MD MDS (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 syndrome) (HCC) (Primary Dx) 05/08/2024 Orders Only [facility] [address] [place] [address] Office [facility] [address] [place] [address] Chalino Chapa MD MDS (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 syndrome) (HCC) (Primary Dx) 05/03/2024 10:30 AM ACCOUNT PLANNER Infusion [address] [place] [address] Encounter for care related to Port-a-Cath (Primary Dx); MDS (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 syndrome) (HCC) 05/02/2024 10:30 AM ACCOUNT PLANNER Infusion [address] [place] [address] MDS (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 syndrome) (HCC) (Primary Dx); Encounter for care related to Port-a-Cath 05/01/2024 9:30 AM ACCOUNT PLANNER Infusion [address] [place] [address] MDS (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 syndrome) (HCC) (Primary Dx); Encounter for care related to Port-a-Cath 04/30/2024 10:00 AM ACCOUNT PLANNER Infusion [address] [place] [address] MDS (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 syndrome) (HCC) (Primary Dx); Encounter for care related to Port-a-Cath 04/29/2024 9:30 AM ACCOUNT PLANNER Infusion [address] [place] [address] MDS (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 syndrome) (HCC) (Primary Dx); Encounter for care related to Port-a-Cath 04/29/2024 9:15 AM ACCOUNT PLANNER Office Visit [facility] [address] [place] [address] Medical Office Bldg [address] [place] [address] Milla Armenta, CLAUDIA MDS (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 syndrome) (HCC) 04/29/2024 8:45 AM ACCOUNT PLANNER Lab [address] [place] [address] MDS (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 syndrome) (HCC) 04/29/2024 Orders Only [facility] [address] [place] [address] Medical Office Bldg [address] [place] [address] Milla Armenta, LEAF TINNER MDS (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 syndrome) (HCC) (Primary Dx) 04/26/2024 Telephone [facility] [address] [place] [address] Medical Office Bldg [address] [place] [address] Clau Cabral CLT 04/25/2024 Telephone [facility] [address] Medical Office Bldg [address] [place] [address] Anisa Villagran, CLT 04/25/2024 Orders Only [facility] [address] [place] [address] Office [facility] [address] [place] [address] Chalino Chapa MD 04/24/2024 Orders Only [facility] [address] [place] [address] Office [facility] [address] [place] [address] Chalino Chapa MD 04/23/2024 Telephone [facility] [address] [place] [address] Office [facility] [address] [place] [address] Anisa Villagran, CLT 04/23/2024 Orders Only [facility] [address] [place] [address] Office [facility] [address] [place] [address] Chalino Chapa MD 04/18/2024 10:15 AM ACCOUNT PLANNER Office Visit [facility] [address] [place] [address] [address] [place] [phone] Milla Armenta, CLAUDIA Myelodysplastic syndrome (HCC) (Primary Dx); MDS (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 syndrome) (HCC) 04/18/2024 9:45 AM ACCOUNT PLANNER Lab [facility] [address] [facility] [address] [place] [address] MDS (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 syndrome) (HCC) 04/17/2024 2:00 PM ACCOUNT PLANNER Office Visit [facility] Primary Care at [address] [place] [address] Shadi Tan DO Primary osteoarthritis of right knee (Primary Dx) 04/04/2024 11:00 AM ACCOUNT PLANNER Office Visit [address] [place] [address] Chalino Chapa MD MDS (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 syndrome) (HCC) (Primary Dx) 04/04/2024 10:30 AM ACCOUNT PLANNER [facility] [address] [place] [address] MDS (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 syndrome) (HCC) 03/21/2024 10:30 AM ACCOUNT PLANNER Lab [address] [place] [address] MDS (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 syndrome) (HCC) 03/07/2024 10:15 AM ACCOUNT PLANNER Office Visit [facility] [address] [place] [address] [address] [place] [address] Milla Armenta NP MDS (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 syndrome) (HCC) (Primary Dx) 03/07/2024 9:45 AM ACCOUNT PLANNER Lab [address] [place] [address] MDS (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 syndrome) (HCC) 03/06/2024 Telephone [facility] [address] [place] [address] Medical [address] [place] [address] Clau Cabral CLT 02/22/2024 8:45 AM ACCOUNT PLANNER Office Visit [facility] [address] [place] [address] Office [address] [place] [address] Chalino Chapa MD MDS (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 syndrome) (HCC) (Primary Dx) 02/22/2024 8:15 AM ACCOUNT PLANNER Lab [address] [place] [address] MDS (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 syndrome) (HCC) 02/22/2024 8:10 AM ACCOUNT PLANNER - 02/22/2024 11:59 PM ACCOUNT PLANNER Hospital Encounter [address] Discharge Disposition: Discharge to home or self care from Last 3 Months Immunizations Immunization Administration [...] eft knee, current 06/06/2018 Added automatically from [facility] for surgery [id number] PONV (postoperative nausea a nd vomiting) Anxiety [...] on file Legal Sex Female 1:43 AM ACCOUNT PLANNER Gender Identity Not on file Sexual Orientation Not on file Obstetrics History Last Filed Vital Signs Vital Sign Reading Time Taken Comments Blood Pressure 120/71 05/17/2024 3:20 PM ACCOUNT PLANNER Pulse 88 05/17/2024 3:20 PM ACCOUNT PLANNER Temperature 36.7 C (98 F) 05/17/2024 3:20 PM ACCOUNT PLANNER Respiratory Rate 16 05/17/2024 3:20 PM ACCOUNT PLANNER Oxygen Saturation 100% 05/17/2024 3:20 PM ACCOUNT PLANNER Inhaled Oxygen Concentration - - Weight 64.7 kg (142 lb 9.6 oz) 05/16/2024 10:44 AM ACCOUNT PLANNER Height 152.4 cm (5') 04/29/2024 8:59 AM ACCOUNT PLANNER Body Mass Index 27.85 04/29/2024 8:59 AM ACCOUNT PLANNER Plan of Treatment Upcoming Encounters Date Type Department Care Team (Late st Contact Info) Description 05/27/2024 9:30 AM ACCOUNT PLANNER Office Visit [facility] [address] [place] [address] Medical Office [address] [address] Chalino Chapa MD [phone] [place] [address] MDS (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 syndrome) (HCC) (Primary Dx); Anemia, unspecified type Health Maintenance Due Date Last Done Comments Depression Screening 1940 Osteoporosis Screening-Bone Density Scan 1941 Hepatitis B Screening 1959 Well Visit 65+ 2006 Covid-19 Vaccine (7 - 2023-2 5 season) 2023 01/23/2022, 09/24/2021, 02/01/2021, Additional history exists Influenza Vaccine (#1) 2023 , 01/07/2022, 01/15/2021, Additional history exists Fall Risk Assessment 04/30/2025 04/30/2024, 04/29/2024, 12/19/2023, Additional history exists DTaP/Tdap/Td Vaccine (2 - Td or Tdap) 09/08/2029 09/09/2019 Pneumococcal vaccine 65+ Completed 021, 05/18/2016, 04/03/2016, Additional history exists Zoster Vaccine Completed 03/29/2022, 10/02, 04/03/2016 Medical Devices Implanted Type Area Manager Supply Device Identifier Shelf Expiration Date Model / Serial / Lot AttorneyFee Powerport Mri Airguard 8fr 1 Lumen Attachable Catheter Latex Free [id number] - [id number] Implanted:Qty: 1 on 11/20/2023 by Shade Red MD at [facility] Right: Chest Emre [place] 09/30/2024 [id number] / / [id number] Procedures Procedure Name Priority Date/Time Associated Diagnosis Comments IMMATURE PLATELET FRACTION STAT 05/17/2024 1:20 PM ACCOUNT PLANNER MDS (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 syndrome) (HCC) DIFFERENTIAL AUTO STAT 05/17/2024 1:2 0 PM ACCOUNT PLANNER MDS (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 syndrome) (HCC) CBC WITH AUTO DIFFERENTIAL STAT 05/17/2024 1:20 PM ACCOUNT PLANNER MDS (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 syndrome) (HCC) PREPARE RBC Routine 05/16/2024 2:12 PM ACCOUNT PLANNER MDS (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 syndrome) (HCC) CROSSMATCH Routine 05/16/2024 10:45 AM ACCOUNT PLANNER MDS (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 syndrome) (HCC) ANTIBODY SCREEN Routine 05/16/2024 10:45 AM ACCOUNT PLANNER MDS (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 syndrome) (HCC) ABO/RH Routine 05/16/2024 10:45 AM ACCOUNT PLANNER MDS (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 syndrome) (HCC) TYPE AND SCREEN Routine 05/16/2024 10:45 AM ACCOUNT PLANNER MDS (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 syndrome) (HCC) MANUAL DIFFERENTIAL Routine 05/16/2024 1 0:45 AM ACCOUNT PLANNER MDS (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 syndrome) (HCC) CBC WITH AUTO DIFFERENTIAL Routine 05/16/2024 10:45 AM ACCOUNT PLANNER MDS (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 syndrome) (HCC) TRANSFUSE RED BLOOD CELLS Timed 05/10/2024 11:18 AM ACCOUNT PLANNER MDS (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 syndrome) (HCC) Anemia, unspecified type PREPARE RBC Routine 05/10/2024 11:07 AM ACCOUNT PLANNER PREPARE RBC Routine 05/10/2024 11:07 AM ACCOUNT PLANNER MDS (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 syndrome) (HCC) Anemia, unspecified type CROSSMATCH Routine 05/10/2024 10:00 AM ACCOUNT PLANNER MDS (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 syndrome) (HCC) Anemia, unspecified type ANTIBODY SCREEN Routine 05/10/2024 10:00 AM ACCOUNT PLANNER MDS (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 syndrome) (HCC) Anemia, unspecified type ABO/RH Routine 05/10/2024 10:00 AM ACCOUNT PLANNER MDS (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 syndrome) (HCC) Anemia, unspecified type TYPE AND SCREEN Routine 05/10/2024 10:00 AM ACCOUNT PLANNER MDS (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 syndrome) (HCC) Anemia, unspecified type DIFFERENTIAL AUTO Routine 05/10/2024 10: 00 AM ACCOUNT PLANNER MDS (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 syndrome) (HCC) CBC WITH AUTO DIFFERENTIAL Routine 05/10/2024 10:00 AM ACCOUNT PLANNER MDS (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 syndrome) (HCC) EGFR STAT 04/29/2024 8:50 AM ACCOUNT PLANNER MDS (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 syndrome) (HCC) DIFFERENTIAL AUTO STAT 04/29/2024 8:5 0 AM ACCOUNT PLANNER MDS (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 syndrome) (HCC) CBC WITH AUTO DIFFERENTIAL STAT 04/29/2024 8:50 AM ACCOUNT PLANNER MDS (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 syndrome) (HCC) COMPREHENSIVE METABOLIC PANEL STAT 04/29/2024 8:50 AM ACCOUNT PLANNER MDS (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 syndrome) (HCC) MANUAL DIFFERENTIAL Routine 04/18/2024 1 0:00 AM ACCOUNT PLANNER MDS (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 syndrome) (HCC) EGFR Routine 04/18/2024 10:00 AM ACCOUNT PLANNER MDS (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 syndrome) (HCC) CBC WITH AUTO DIFFERENTIAL Routine 04/18/2024 10:00 AM ACCOUNT PLANNER MDS (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 syndrome) (HCC) COMPREHENSIVE METABOLIC PANEL Routine 04/18/2024 10:00 AM ACCOUNT PLANNER MDS (myelodysplastic syndrome) (HCC) MT ARTHROCENTESIS ASPIR&/INJ MAJOR JT/BURSA W/US Routine 04/17/2024 2:00 PM ACCOUNT PLANNER Primary osteoarthritis of right knee EGFR Routine 04/04/2024 10:35 AM ACCOUNT PLANNER MDS (myelodysplastic syndrome) (HCC) DIFFERENTIAL AUTO Routine 04/04/2024 10: 35 AM ACCOUNT PLANNER MDS (myelodysplastic syndrome) (HCC) COMPREHENSIVE METABOLIC PANEL Routine 04/04/2024 10:35 AM ACCOUNT PLANNER MDS (myelodysplastic syndrome) (HCC) CBC WITH AUTO DIFFERENTIAL Routine 04/04/2024 10:35 AM ACCOUNT PLANNER MDS (myelodysplastic syndrome) (HCC) DIFFERENTIAL AUTO Routine 03/21/2024 10: 40 AM ACCOUNT PLANNER MDS (myelodysplastic syndrome) (HCC) CBC WITH AUTO DIFFERENTIAL Routine 03/21/2024 10:40 AM ACCOUNT PLANNER MDS (myelodysplastic syndrome) (HCC) EGFR Routine 03/07/2024 9:45 AM ACCOUNT PLANNER MDS (myelodysplastic syndrome) (HCC) COMPREHENSIVE METABOLIC PANEL Routine 03/07/2024 9:45 AM ACCOUNT PLANNER MDS (myelodysplastic syndrome) (HCC) DIFFERENTIAL AUTO Routine 03/07/2024 8:4 5 AM ACCOUNT PLANNER MDS (myelodysplastic syndrome) (HCC) CBC WITH AUTO DIFFERENTIAL Routine 03/07/2024 8:45 AM ACCOUNT PLANNER MDS (myelodysplastic syndrome) (HCC) EGFR Routine 02/22/2024 8:10 AM ACCOUNT PLANNER TSH Routine 02/22/2024 8:10 AM ACCOUNT PLANNER COMPREHENSIVE METABOLIC PANEL Routine 02/22/2024 8:10 AM ACCOUNT PLANNER EGFR Routine 02/22/2024 8:10 AM ACCOUNT PLANNER MDS (myelodysplastic syndrome) (HCC) DIFFERENTIAL AUTO Routine 02/22/2024 8:1 0 AM ACCOUNT PLANNER MDS (myelodysplastic syndrome) (HCC) COMPREHENSIVE METABOLIC PANEL Routine 02/22/2024 8:10 AM ACCOUNT PLANNER MDS (myelodysplastic syndrome) (HCC) CBC WITH AUTO DIFFERENTIAL Routine 02/22/2024 8:10 AM ACCOUNT PLANNER MDS (myelodysplastic syndrome) (HCC) TRANSFUSE RED BLOOD CELLS Timed MDS (myelodysplastic syndrome) (HCC) from Last 3 Months Results * Immature platelet fraction (05/17/2024 1:20 PM ACCOUNT PLANNER) IPF 9.7 1.6 - 10.1 % Comment:Testing performed by : [facility], [facility], [place], [address] Blood 05/17/2024 1:20 PM ACCOUNT PLANNER 05/17/2024 1:36 PM ACCOUNT PLANNER us Milla Armenta NP LAB BLOOD ORDERABLES Final Result [facility] Department [place] [address] * (ABNORMAL) Differential, auto (05/17/2024 1:20 PM ACCOUNT PLANNER) Neutrophil abs 0.0(L) 1.5 - 6.5 K/cumm Comment:Testing performed by : [facility], [facility], [place], [address] Imm gran abs 0.0 0.0 - 0.1 K/cumm [facility] ([place]) Comment:Testing performed by : [place], [address] Lymphocyte abs 0.8 0.8 - 3.3 K/cumm [facility] ([place]) Comment:Testing performed by : [place], [address] Monocyte abs 0.0(L) 0.2 - 0.8 K/cumm [facility] ([place]) Comment:Testing performed by : [facility], [place], [address] Eosinophil abs 0.0 0.0 - 0.5 K/cumm [facility] ([place]) Comment:Testing performed by : [facility], [place], [address] Basophil abs 0.0 0.0 - 0.1 K/cumm [facility] ([place]) Comment:Testing performed by : [place], [address] Neutrophil pct 3.7 % [facility] ([place]) Comment: Interpretive Data Percent cell count reference ranges are not reported, since discordance with absolute values may lead to misinterpretation of CBC data. Current Interpretive Data was last revised on 2017. Testing performed by: [place], [address] Imm gran pct 0.0 % [facility] Comment: Interpretive Data Percent cell count reference ranges are not reported, since discordance with absolute values may lead to misinterpretation of CBC data. Current Interpretive Data was last revised on 2017. Testing performed by: [place], [address] Lymphocyte pct 96.3 % [facility] Comment: Interpretive Data Percent cell count reference ranges are not reported, since discordance with absolute values may lead to misinterpretation of CBC data. Current Interpretive Data was last revised on 2017. Testing performed by: [facility], [facility], [place], [address] Monocyte pct 0.0 % [facility] Comment: Interpretive Data Percent cell count reference ranges are not reported, since discordance with absolute values may lead to misinterpretation of CBC data. Current Interpretive Data was last revised on 2017. Testing performed by: [place], [address] Eosinophil pct 0.0 % [facility] ([place] Comment: Interpretive Data Percent cell count reference ranges are not reported, since discordance with absolute values may lead to misinterpretation of CBC data. Current Interpretive Data was last revised on 2017. Testing performed by: [place], [address] Basophil pct 0.0 % [facility] Comment: Interpretive Data Percent cell count reference ranges are not reported, since discordance with absolute values may lead to misinterpretation of CBC data. Current Interpretive Data was last revised on 2017. Testing performed by: [facility], [place], [address] Blood 05/17/2024 1:20 PM ACCOUNT PLANNER 05/17/2024 1:36 PM ACCOUNT PLANNER us Milla Armenta LEAF TINNER LAB BLOOD ORDERABLES Final Result [facility] [address] [place] [address] Department [place] [address] * (ABNORMAL) CBC with auto differential (05/17/2024 1:20 PM ACCOUNT PLANNER) WBC 0.8(C) 3.8 - 9.9 K/cumm Comment: Critical result called to and read back by KAREN ST on 05 17 2024 at 1349 to Stacey Samson. Testing performed by: [facility], [place], [address] Hgb 7.0(L) 11.9 - 15.5 g/dL [facility] ([place]) Comment:Testing performed by : [place], Hct 20.4(L) 35.6 - 45.5 % [facility] ([place]) Comment:Testing performed by : [place], [place], Plt 13(C) 150 - 400 K/cumm [facility] ([place]) Comment: Critical result called to and read back by KAREN ST on 05 17 2024 at 1349 to Stacey Samson. Testing performed by: [facility], [place], MPV 10.8 9.1 - 12.3 fL [facility]) Comment:Testing performed by : [place], RBC 1.97(L) 3.90 - 5.20 M/cumm [facility] ([place]) Comment:Testing performed by : [place], MCV 103.6(H) 81.3 - 96.4 fL [facility] ([place]) Comment:Testing performed by : [place], MCH 35.5(H) 27.1 - 33.3 pg [facility] ([place]) Comment:Testing performed by : [place], MCHC 34.3 32.3 - 35.7 g/dL [facility] ([place]) Comment:Testing performed by : [place], RDW CV 13.9 11.1 - 14.9 % [facility] ([place]) Comment:Testing performed by : [place], R[place] SD 51.5(H) 35.7 - 48.1 fL [facility] ([place]) Comment:Testing performed by : [place], NRBC abs 0.00 0.00 - 0.01 K/cumm [facility] ([place]) Comment:Testing performed by : [place], Blood 05/17/2024 1:20 PM ACCOUNT PLANNER 05/17/2024 1:36 PM ACCOUNT PLANNER us Milla Armenta NP LAB BLOOD ORDERABLES Final Result [facility] Department [place] [address] * Prepare RBC: 1 Units (05/16/2024 2:12 PM ACCOUNT PLANNER) Units requested 1 Comment:Testing performed by : [place], [address] Units requested Ready [facility] ([place]) Comment:Testing performed by : [place], [address] Unit Number [id number] Product code [id number] [facility] ([place]) Blood Expiration Date [id number] [facility] ([place]) Product Blood Type (for scanning) 5100 [facility] ([place]) Product Blood Type OPOS [facility] ([place]) Dispense Status DISPENSED [facility] ([place]) Blood 05/16/2024 2:12 PM ACCOUNT PLANNER 05/16/2024 2:12 PM ACCOUNT PLANNER us Chalino Chapa MD BLOOD BANK PRODUCT ORDERA BLES Final Result Performing Organization Address City/[facility]/ZIP Co de Phone Number [facility] ([place]) [address] [facility] Department [place] [address] * (ABNORMAL) CBC with auto differential (05/16/2024 10:45 AM ACCOUNT PLANNER) [facility] WBC 0.8(C) 3.8 - 9.9 K/cumm Comment: Critical result called to and read back by YADI JOHNSON RN on 05 16 2024 at 1151 to Mariela Desir. Testing performed by: [place], [address] Hgb 7.5(L) 11.9 - 15.5 g/dL [facility] ([place]) Comment:Testing performed by : [place], Hct 21.9(L) 35.6 - 45.5 % [facility] ([place]) Comment:Testing performed by : [place], Plt 13(C) 150 - 400 K/cumm [facility] ([place]) Comment: Critical result called to and read back by YADI JOHNSON RN on 05 16 2024 at 1151 to Mariela Desir. Testing performed by: [place], MPV 13.5(H) 9.1 - 12.3 fL [facility]) Comment:Testing performed by : [place], RBC 2.07(L) 3.90 - 5.20 M/cumm [facility] ([place]) Comment:Testing performed by : [place], MCV 105.8(H) 81.3 - 96.4 fL [facility] ([place]) Comment:Testing performed by : [place], MCH 36.2(H) 27.1 - 33.3 pg [facility]) Comment:Testing performed by : [place], MCHC 34.2 32.3 - 35.7 g/dL [facility] ([place]) Comment:Testing performed by : [place], R[place] CV 13.7 11.1 - 14.9 % [facility]) Comment:Testing performed by : [place], R[place] SD 51.8(H) 35.7 - 48.1 fL [facility] ([place]) Comment:Testing performed by : [place], NRBC abs 0.00 0.00 - 0.01 K/cumm [facility] ([place]) Comment:Testing performed by : [place], Blood 05/16/2024 10:4 5 AM ACCOUNT PLANNER 05/16/2024 10:48 AM ACCOUNT PLANNER us Chalino Chapa MD LAB BLOOD ORDERABLES Aylin l Result [facility] Department [place] [address] * ABO/Rh (05/16/2024 10:45 AM ACCOUNT PLANNER) ABO/Rh O Positive Comment:Testing performed by : [place], [address] Blood 05/16/2024 10:4 5 AM ACCOUNT PLANNER 05/16/2024 12:56 PM ACCOUNT PLANNER Narrative [facility] - 05/16/2024 1:39 PM ACCOUNT PLANNER witness [id number] Has the patient had Daratumumab or Isatuximab in the past 6 months?->Unknown us Chalino Chapa MD LAB BLOOD BANK TEST ORDER LAITH Final Result Performing Organization Address [facility] Co de Phone Number [facility] Department [place] [address] * (ABNORMAL) Manual Differential (05/16/2024 10:45 AM ACCOUNT PLANNER) Differential Manual Comment:Testing performed by : [place], [address] Cells Counted 100 [facility] ([place]) Comment:Testing performed by : [place], [address] Neutrophil abs 0.0(L) 1.5 - 6.5 K/cumm [facility] ([place]) Comment:Testing performed by : [place], [address] Imm gran abs 0.0 0.0 - 0.1 K/cumm [facility] ([place]) Comment:Testing performed by : [place], [address] Lymphocyte abs 0.8 0.8 - 3.3 K/cumm [facility] ([place]) Comment:Testing performed by : [facility] [place], [address] Monocyte abs 0.0(L) 0.2 - 0.8 K/cumm [facility] ([place]) Comment:Testing performed by : [facility], [place], [address] Eosinophil abs 0.0 0.0 - 0.5 K/cumm [facility] ([place]) Comment:Testing performed by : [facility], [place], [address] Neutrophil pct 3.0 % [facility] ([place]) Comment: Interpretive Data Percent cell count reference ranges are not reported, since discordance with absolute values may lead to misinterpretation of CBC data. Current Interpretive Data was last revised on 2017. Testing performed by: [facility], [place], [address] Lymphocyte pct 62.0 % [facility] ([place]) Comment: Interpretive Data Percent cell count reference ranges are not reported, since discordance with absolute values may lead to misinterpretation of CBC data. Current Interpretive Data was last revised on 2017. Testing performed by: [facility], [facility], [place], [address] Eosinophil pct 1.0 % [facility] ([place]) Comment: Interpretive Data Percent cell count reference ranges are not reported, since discordance with absolute values may lead to misinterpretation of CBC data. Current Interpretive Data was last revised on 2017. Testing performed by: [facility], [place], [address] Variant lymph pct 34.0(H) 0.0 - 0.0 % [facility] ([place]) Comment:Testing performed by : [facility], [place], [address] RBC morphology Consistent with RBC Indicies [facility] ([place]) Comment:Testing performed by : [facility], [place], [address] Anisocytosis Slight(A) [facility] ([place]) Comment:Testing performed by : [facility], [place], [address] Platelet estimate Decreased(A) [facility] ([place]) Comment:Testing performed by : [facility], [place], [address] Blood 05/16/2024 10:4 5 AM ACCOUNT PLANNER 05/16/2024 11:00 AM ACCOUNT PLANNER us Chalino Chapa MD LAB BLOOD ORDERABLES Aylin l Result [facility] ([place]) [address] [place] [address] * Crossmatch (05/16/2024 10:45 AM ACCOUNT PLANNER) Crossmatch Compatible [facility] ([place]) Unit number for crossmatch [id number] [facility] ([place]) Blood 05/16/2024 10:4 5 AM ACCOUNT PLANNER 05/16/2024 12:56 PM ACCOUNT PLANNER us Chalino Chapa MD LAB BLOOD BANK TEST ORDER LAITH Final Result Performing Organization Address [facility] [place]/[facility] Co de Phone Number [facility] ([place]) [address] [place] [address] * Antibody screen (05/16/2024 10:45 AM ACCOUNT PLANNER) Rivera, indirect, Gel Interpretation Negative ABSC Comment:Testing performed by : [facility], [facility], [place], [address] Blood 05/16/2024 10:4 5 AM ACCOUNT PLANNER 05/16/2024 12:56 PM ACCOUNT PLANNER Narrative [facility] ([place]) - 05/16/2024 1:40 PM ACCOUNT PLANNER Has the patient had Daratumumab or Isatuximab in the past 6 months?->Unknown us Chalino Chapa MD LAB BLOOD BANK TEST ORDER LAITH Final Result Performing Organization Address City/[facility]/ZIP Co de Phone Number [facility] ([place]) [address] [place] [address] * Transfuse RBC (05/10/2024 1:03 PM ACCOUNT PLANNER) Blood us Chalino Chapa MD BLOOD TRANSFUSION ORDERAB LES Final Result * Prepare RBC (05/10/2024 11:07 AM ACCOUNT PLANNER) Unit Number [id number] Product code [id number] [facility] ([place]) Blood Expiration Date [id number] [facility] ([place]) Product Blood Type (for scanning) 5100 [facility] ([place]) Product Blood Type OPOS [facility] ([place]) Dispense Status DISPENSED [facility] ([place]) us Michael Terry MD BLOOD BANK PRODUCT ORDERABLES Final Result [facility] ([place]) [address] [place] [address] Department [place] [address] * Prepare RBC: 1 Units (05/10/2024 11:07 AM ACCOUNT PLANNER) Units requested 1 Comment:Testing performed by : [place], [address] Units requested Ready EMMY [facility] ([place]) Comment:Testing performed by : [place], [address] Blood 05/10/2024 11:0 7 AM ACCOUNT PLANNER 05/10/2024 11:07 AM ACCOUNT PLANNER N[facility]ative [facility] ([place] - 05/10/2024 11:07 AM ACCOUNT PLANNER Are special requirements needed? (All products are leukoreduced and CMV- safe)->No us Chalino Chapa MD BLOOD BANK PRODUCT ORDERA BLES Final Result [facility] ([place]) [address] [place] [address] Department [place] [address] * (ABNORMAL) Differential, auto (05/10/2024 10:00 AM ACCOUNT PLANNER) Neutrophil abs 0.4(L) 1.5 - 6.5 K/cumm Comment:Testing performed by : [place], [address] Imm gran abs 0.0 0.0 - 0.1 K/cumm [facility] ([place]) Comment:Testing performed by : [facility], [facility], [place], [address] Lymphocyte abs 0.7(L) 0.8 - 3.3 K/cumm [facility] ([place]) Comment:Testing performed by : [facility], [facility], [place], [address] Monocyte abs 0.0(L) 0.2 - 0.8 K/cumm [facility] ([place]) Comment:Testing performed by : [facility], [facility], [place], [address] Eosinophil abs 0.1 0.0 - 0.5 K/cumm [facility] ([place]) Comment:Testing performed by : [facility], [place], [address] Basophil abs 0.0 0.0 - 0.1 K/cumm [facility] ([place]) Comment:Testing performed by : [place], [address] Neutrophil pct 35.3 % [facility] ([place]) Comment: Interpretive Data Percent cell count reference ranges are not reported, since discordance with absolute values may lead to misinterpretation of CBC data. Current Interpretive Data was last revised on 2017. Testing performed by: [place], [address] Imm gran pct 0.9 % [facility] ([place]) Comment: Interpretive Data Percent cell count reference ranges are not reported, since discordance with absolute values may lead to misinterpretation of CBC data. Current Interpretive Data was last revised on 2017. Testing performed by: [place], [address] Lymphocyte pct 58.6 % [facility] ([place]) Comment: Interpretive Data Percent cell count reference ranges are not reported, since discordance with absolute values may lead to misinterpretation of CBC data. Current Interpretive Data was last revised on 2017. Testing performed by: [place], [address] Monocyte pct 0.9 % [facility] ([place]) Comment: Interpretive Data Percent cell count reference ranges are not reported, since discordance with absolute values may lead to misinterpretation of CBC data. Current Interpretive Data was last revised on 2017. Testing performed by: [facility], [facility], [place], [address] Eosinophil pct 4.3 % [facility] ([place]) Comment: Interpretive Data Percent cell count reference ranges are not reported, since discordance with absolute values may lead to misinterpretation of CBC data. Current Interpretive Data was last revised on 2017. Testing performed by: [facility], [place], [address] Basophil pct 0.0 % [facility] ([place]) Comment: Interpretive Data Percent cell count reference ranges are not reported, since discordance with absolute values may lead to misinterpretation of CBC data. Current Interpretive Data was last revised on 2017. Testing performed by: [place], [address] Blood 05/10/2024 10:0 0 AM ACCOUNT PLANNER 05/10/2024 10:01 AM ACCOUNT PLANNER Chalino Chapa MD LAB BLOOD ORDERABLES Aylin l Result [facility] ([place]) 1 [facility] Department [place] [address] * (ABNORMAL) CBC with auto differential (05/10/2024 10:00 AM ACCOUNT PLANNER) WBC 1.2(L) 3.8 - 9.9 K/cumm Comment:Testing performed by : [place], [address] Hgb 7.0(L) 11.9 - 15.5 g/dL [facility] ([place]) Comment:Testing performed by : [facility], [place], [address] Hct 20.6(L) 35.6 - 45.5 % [facility] ([place]) Comment:Testing performed by : [facility], [place], [address] Plt 65(L) 150 - 400 K/cumm [facility] ([place]) Comment:Testing performed by : [facility], [place], [address] MPV 11.1 9.1 - 12.3 fL [facility] ([place]) Comment:Testing performed by : [facility], [place], [address] RBC 1.91(L) 3.90 - 5.20 M/cumm [facility] ([place]) Comment:Testing performed by : [place], [address] MCV 107.9(H) 81.3 - 96.4 fL [facility] ([place]) Comment:Testing performed by : [facility], [place], [address] MCH 36.6(H) 27.1 - 33.3 pg [facility] ([place]) Comment:Testing performed by : [place], [place], MCHC 34.0 32.3 - 35.7 g/dL [facility] ([place]) Comment:Testing performed by : [place], [place], [place] CV 14.4 11.1 - 14.9 % [facility] ([place]) Comment:Testing performed by : [facility], [place], [place] SD 56.9(H) 35.7 - 48.1 fL [facility] ([place]) Comment:Testing performed by : [place], [address] NRBC abs Not Measured 0.00 - 0.01 K/cumm [facility] ([place]) Comment:Testing performed by : [facility], [place], [address] Blood 05/10/2024 10:0 0 AM ACCOUNT PLANNER 05/10/2024 10:01 AM ACCOUNT PLANNER us Chalino Chapa MD LAB BLOOD ORDERABLES Aylin freedman Result [facility] ([place]) [address] [place] [address] Department [place] [address] * ABO/Rh (05/10/2024 10:00 AM ACCOUNT PLANNER) ABO/Rh O Positive Comment:Testing performed by : [facility], [place], [address] Blood 05/10/2024 10:0 0 AM ACCOUNT PLANNER 05/10/2024 10:18 AM ACCOUNT PLANNER Narrative [facility] ([place]) - 05/10/2024 10:54 AM ACCOUNT PLANNER drawn by Ynes Jensen, witnessed by Karen Donaldson Has the patient had Daratumumab or Isatuximab in the past 6 months?->Unknown us Chalino Chapa MD LAB BLOOD BANK TEST ORDER LAITH Final Result [facility] ([place]) 1 [facility] Department [place] [address] * Crossmatch (05/10/2024 10:00 AM ACCOUNT PLANNER) Crossmatch Compatible [facility] Silva ([place]) Unit number for crossmatch [id number] [facility] ([place]) Blood 05/10/2024 10:0 0 AM ACCOUNT PLANNER 05/10/2024 10:18 AM ACCOUNT PLANNER Michael Terry MD LAB BLOOD BANK TEST ORDERABLE S Final Result Performing Organization Address City/[facility]/ZIP Co de Phone Number [facility] ([place]) 1 [facility] Department [place] [employer] [address] * Antibody screen (05/10/2024 10:00 AM ACCOUNT PLANNER) Rivera, indirect, Gel Interpretation Negative ABSC Comment:Testing performed by : [facility], [facility], [place], [address] Blood 05/10/2024 10:0 0 AM ACCOUNT PLANNER 05/10/2024 10:18 AM ACCOUNT PLANNER Narrative [facility] ([place] - 05/10/2024 10:54 AM ACCOUNT PLANNER Has the patient had Daratumumab or Isatuximab in the past 6 months?->Unknown us Chalino Chapa MD LAB BLOOD BANK TEST ORDER LAITH Final Result [facility] ([place]) 1 [facility] Department [place] [address] * eGFR (04/29/2024 8:50 AM ACCOUNT PLANNER) eGFR 90 >=60 mL/min/1. 73 m2 Comment: [...] was last reviewed 2021. Testing performed by: [facility], [facility], [place], [address] Blood 04/29/2024 8:50 AM ACCOUNT PLANNER 04/29/2024 9:03 AM ACCOUNT PLANNER Zoraida Villegas LEAF TINNER LAB BLOOD ORDERABLES Final Result [facility] ([place]) 1 [facility] Department [place] [address] * (ABNORMAL) Differential, auto (04/29/2024 8:50 AM ACCOUNT PLANNER) Neutrophil abs 1.2(L) 1.5 - 6.5 K/cumm Comment:Testing performed by : [facility] [address], Medical Office [address], [place] [address] Imm gran abs 0.0 0.0 - 0.1 K/cumm [facility] ([place]) Comment:Testing performed by : [facility] [address], Medical Office [address], [place] [address] Lymphocyte abs 1.0 0.8 - 3.3 K/cumm [facility] ([place]) Comment:Testing performed by : [facility] [address], Medical Office [facility] [address], [place] [address] Monocyte abs 0.3 0.2 - 0.8 K/cumm [facility] ([place]) Comment:Testing performed by : [facility] [address], Medical Office [facility] [address], [place] [address] Eosinophil abs 0.1 0.0 - 0.5 K/cumm [facility] ([place]) Comment:Testing performed by : [facility] [address], Medical Office [facility] [address], [place] [address] Basophil abs 0.0 0.0 - 0.1 K/cumm [facility] ([place]) Comment:Testing performed by : [facility] [address], Medical Office [facility] [address], [place] [address] Neutrophil pct 44.9 % [facility] ([place]) Comment: Interpretive Data Percent cell count reference ranges are not reported, since discordance with absolute values may lead to misinterpretation of CBC data. Current Interpretive Data was last revised on 2022. Testing performed by: [facility] [address], Medical Office [facility] [address], [place] [address] Imm gran pct 0.7 % [facility] ([place]) Comment: Interpretive Data Percent cell count reference ranges are not reported, since discordance with absolute values may lead to misinterpretation of CBC data. Current Interpretive Data was last revised on 2022. Testing performed by: [facility] [address], Medical Office [facility] [address], [place] [address] Lymphocyte pct 38.4 % [facility] ([place]) Comment: Interpretive Data Percent cell count reference ranges are not reported, since discordance with absolute values may lead to misinterpretation of CBC data. Current Interpretive Data was last revised on 2022. Testing performed by: [facility] [address], Medical Office [facility] [address], [place] [address] Monocyte pct 11.9 % [facility] ([place]) Comment: Interpretive Data Percent cell count reference ranges are not reported, since discordance with absolute values may lead to misinterpretation of CBC data. Current Interpretive Data was last revised on 2022. Testing performed by: [facility] [address], Medical Office [facility] [address], [place] [address] Eosinophil pct 3.0 % EMELINA ROGERS ([place]) Comment: Interpretive Data Percent cell count reference ranges are not reported, since discordance with absolute values may lead to misinterpretation of CBC data. Current Interpretive Data was last revised on 2022. Testing performed by: [facility] [address], Medical Office [facility] [address], [place] [address] Basophil pct 1.1 % [facility] ([place]) Comment: Interpretive Data Percent cell count reference ranges are not reported, since discordance with absolute values may lead to misinterpretation of CBC data. Current Interpretive Data was last revised on 2022. Testing performed by: [facility] [address], Medical Office [facility] [address], [place] [address] Blood 04/29/2024 8:50 AM ACCOUNT PLANNER 04/29/2024 8:53 AM ACCOUNT PLANNER Zoraida Villegas LEAF TINNER LAB BLOOD ORDERABLES Final Result [facility] ([place]) 1 [facility] [place] [address] * (ABNORMAL) CBC with auto differential (04/29/2024 8:50 AM ACCOUNT PLANNER) WBC 2.7(L) 3.8 - 9.9 K/cumm Comment:Testing performed by : [facility] [address], Medical Office [facility] [address], [place] [address] Hgb 10.2(L) 11.9 - 15.5 g/dL [facility] ([place]) Comment:Testing performed by : [facility] [address], Medical Office [facility] [address], [place] [address] Hct 31.2(L) 35.6 - 45.5 % [facility] ([place]) Comment:Testing performed by : [facility] [address], Medical Office [facility] [address], [place] [address] Plt 163 150 - 400 K/cumm [facility] ([place]) Comment:Testing performed by : [facility] [address], Medical Office [facility] [address], [place] [address] MPV 10.5 9.1 - 12.3 fL [facility] ([place]) Comment:Testing performed by : [facility] [address], Medical Office [facility] [address], [place] [address] RBC 2.87(L) 3.90 - 5.20 M/cumm [facility] ([place]) Comment:Testing performed by : [facility] [address], Medical Office [facility] [address], [place] [address] MCV 108.7(H) 81.3 - 96.4 fL [facility] ([place]) Comment:Testing performed by : [facility] [address], Medical Office [facility] B [facility] [address], [place] [address] MCH 35.5(H) 27.1 - 33.3 pg [facility] ([place]) Comment:Testing performed by : [facility] [address], Medical Office [facility] B [facility] [address], [place] [address] MCHC 32.7 32.3 - 35.7 g/dL [facility] ([place]) Comment:Testing performed by : [facility] [address], Medical Office [facility] B [facility] [address], [place] [address] RDW CV 15.5(H) 11.1 - 14.9 % [facility] ([place]) Comment:Testing performed by : [facility] [address], Medical Office [facility] B [facility] [address], [place] [address] RDW SD 62.1(H) 35.7 - 48.1 fL [facility] ([place]) Comment:Testing performed by : [facility] [address], Medical Office [facility] [address], [place] [address] NRBC abs Not Measured 0.00 - 0.01 K/cumm [facility] ([place]) Comment:Testing performed by : [facility] [address], Medical Office [address], [place] [address] Blood 04/29/2024 8:50 AM ACCOUNT PLANNER 04/29/2024 8:53 AM ACCOUNT PLANNER Zoraida Monalisa Villegas LEAF TINNER LAB BLOOD ORDERABLES Final Result [facility] ([place]) 1 [facility] Department [place] [address] * (ABNORMAL) Comprehensive metabolic panel (04/29/2024 8:50 AM ACCOUNT PLANNER) Sodium 141 135 - 145 mmol/L Comment:Testing performed by : [facility], [place], [address] Potassium, pl 4.0 3.3 - 4.9 mmol/L [facility] ([place]) Comment:Testing performed by : [place], [address] Chloride 102 97 - 110 mmol/L [facility] ([place]) Comment:Testing performed by : [facility], [place], [address] CO2 31 22 - 32 mmol/L [facility] ([place]) Comment:Testing performed by : [facility], [place], [address] Anion gap 7 2 - 15 mmol/L [facility] ([place]) Comment:Testing performed by : [facility], [place], [address] BUN 14 6 - 25 mg/dL [facility] ([place]) Comment:Testing performed by : [facility], [place], [address] Creatinine 0.57(L) 0.60 - 1.10 mg/dL [facility] ([place]) Comment:Testing performed by : [facility], [place], [address] Glucose 109 70 - 199 mg/dL CERNER [...] was last revised 2022. Testing performed by: [facility], [place], [address] Calcium 9.7 8.5 - 10.3 mg/dL [facility] ([place]) Comment:Testing performed by : [facility], [place], [address] Bilirubin, total 0.7 0.1 - 1.2 mg/dL [facility] ([place]) Comment:Testing performed by : [facility], [place], [address] Protein, pl 6.7 6.5 - 8.5 g/dL [facility] ([place]) Comment:Testing performed by : [facility], [place], [address] Albumin 4.5 3.5 - 5.0 g/dL [facility] ([place]) Comment:Testing performed by : [facility], [place], [address] Alk phos 121 40 - 130 Units/L [facility] ([place]) Comment:Testing performed by : [facility], [place], [address] ALT 61(H) 7 - 45 Units/L [facility] ([place]) Comment:Testing performed by : [place], [address] AST 28 10 - 45 Units/L [facility] ([place]) Comment:Testing performed by : [facility], [place], [address] Blood 04/29/2024 8:50 AM ACCOUNT PLANNER 04/29/2024 9:03 AM ACCOUNT PLANNER us Zoraida Villegas NP LAB BLOOD ORDERABLES Final Result [facility] ([place]) 1 [facility] Department [place] [address] * eGFR (04/18/2024 10:00 AM ACCOUNT PLANNER) eGFR >90 >=60 mL/min/1. 73 m2 Comment: [...] was last reviewed 2021. Testing performed by: [facility], [facility], [place], [address] Blood 04/18/2024 10:0 0 AM ACCOUNT PLANNER 04/18/2024 10:47 AM ACCOUNT PLANNER us Chalino Chapa MD LAB BLOOD ORDERABLES Aylin freedman Result [facility] ([place]) 1 [facility] Department [place] [address] * (ABNORMAL) CBC with auto differential (04/18/2024 10:00 AM ACCOUNT PLANNER) Pathologist [facility] WBC 3.7(L) 3.8 - 9.9 K/cumm Comment:Testing performed by : [facility] [address], Medical Office [address], [place] [address] Hgb 10.7(L) 11.9 - 15.5 g/dL [facility] ([place]) Comment:Testing performed by : [facility] [address], Medical Office [facility] [address], [place] [address] Hct 32.8(L) 35.6 - 45.5 % [facility] ([place]) Comment:Testing performed by : [facility] [address], Medical Office [facility] B [facility] [address], [place] [address] Plt 171 150 - 400 K/cumm [facility] ([place]) Comment:Testing performed by : [facility] [address], Medical Office [facility] [address], [place] [address] MPV 10.5 9.1 - 12.3 fL [facility] ([place]) Comment:Testing performed by : [facility] [address], Medical Office [facility] B [facility] [address], [place] [address] RBC 3.06(L) 3.90 - 5.20 M/cumm [facility] ([place]) Comment:Testing performed by : [facility] [address], Medical Office [facility] B [facility] [address], [place] [address] MCV 107.2(H) 81.3 - 96.4 fL [facility] ([place]) Comment:Testing performed by : [facility] [address], Medical Office [facility] B [facility] [address], [place] [address] MCH 35.0(H) 27.1 - 33.3 pg [facility] ([place]) Comment:Testing performed by : [facility] [address], Medical Office [facility] B [facility] [address], [place] [address] MCHC 32.6 32.3 - 35.7 g/dL [facility] ([place]) Comment:Testing performed by : [facility] [address], Medical Office [facility] B [facility] [address], [place] [address] RDW CV 14.6 11.1 - 14.9 % [facility] ([place]) Comment:Testing performed by : [facility] [address], Medical Office [facility] B [facility] [address], [place] [address] RDW SD 57.7(H) 35.7 - 48.1 fL [facility] ([place]) Comment:Testing performed by : [facility] [address], Medical Office [facility] [address], [place] [address] NRBC abs Not Measured 0.00 - 0.01 K/cumm [facility] ([place]) Comment:Testing performed by : [facility] [address], Medical Office [address], [place] [address] Blood 04/18/2024 10:0 0 AM ACCOUNT PLANNER 04/18/2024 10:03 AM ACCOUNT PLANNER us Chalino Chapa MD LAB BLOOD ORDERABLES Aylin freedman Result [facility] ([place]) 1 [facility] Department [place] [address] * (ABNORMAL) Manual Differential (04/18/2024 10:00 AM ACCOUNT PLANNER) Differential Manual Comment:Testing performed by : [facility], [place], [address] Cells Counted 100 [facility] ([place]) Comment:Testing performed by : [facility], [place], [address] Neutrophil abs 2.1 1.5 - 6.5 K/cumm [facility] ([place]) Comment:Testing performed by : [facility], [place], [address] Imm gran abs 0.0 0.0 - 0.1 K/cumm [facility] ([place]) Comment:Testing performed by : [facility], [place], [address] Lymphocyte abs 1.6 0.8 - 3.3 K/cumm [facility] ([place]) Comment:Testing performed by : [facility], [place], [address] Monocyte abs 0.0(L) 0.2 - 0.8 K/cumm [facility] ([place]) Comment:Testing performed by : [place], [address] Neutrophil pct 55.0 % [facility] ([place]) Comment: Interpretive Data Percent cell count reference ranges are not reported, since discordance with absolute values may lead to misinterpretation of CBC data. Current Interpretive Data was last revised on 2017. Testing performed by: [facility], [place], [address] Lymphocyte pct 38.0 % [facility] ([place]) Comment: Interpretive Data Percent cell count reference ranges are not reported, since discordance with absolute values may lead to misinterpretation of CBC data. Current Interpretive Data was last revised on 2017. Testing performed by: [facility], [facility], [place], [address] Monocyte pct 1.0 % [facility] ([place]) Comment: Interpretive Data Percent cell count reference ranges are not reported, since discordance with absolute values may lead to misinterpretation of CBC data. Current Interpretive Data was last revised on 2017. Testing performed by: [facility], [facility], [place], [address] Band Neutrophil pct 1.0 0.0 - 5.0 % [facility] ([place]) Comment:Testing performed by : [facility], [place], [address] Promyelocyte pct 1.0(H) 0.0 - 0.0 % [facility] ([place]) Comment:Testing performed by : [facility], [facility], [place], [address] Variant lymph pct 4.0(H) 0.0 - 0.0 % [facility] ([place]) Comment:Testing performed by : [facility], [facility], [place], [address] Blood 04/18/2024 10:0 0 AM ACCOUNT PLANNER 04/18/2024 10:47 AM ACCOUNT PLANNER us Chalino Chapa MD LAB BLOOD ORDERABLES Aylin l Result [facility] ([place]) 1 [facility] Department [place] [address] * (ABNORMAL) Comprehensive metabolic panel (04/18/2024 10:00 AM ACCOUNT PLANNER) Sodium 141 135 - 145 mmol/L Comment:Testing performed by : [facility], [facility], [place], [address] Potassium, pl 4.3 3.3 - 4.9 mmol/L [facility] ([place]) Comment:Testing performed by : [facility], [place], [address] Chloride 103 97 - 110 mmol/L [facility] ([place]) Comment:Testing performed by : [facility], [place], [address] CO2 31 22 - 32 mmol/L [facility] ([place]) Comment:Testing performed by : [facility], [facility], [place], [address] Anion gap 8 2 - 15 mmol/L [facility] ([place]) Comment:Testing performed by : [facility], [facility], [place], [address] BUN 15 6 - 25 mg/dL [facility] ([place]) Comment:Testing performed by : [facility], [place], [address] Creatinine 0.51(L) 0.60 - 1.10 mg/dL [facility] ([place]) Comment:Testing performed by : [facility], [place], [address] Glucose 141 70 - 199 mg/dL [facility] ([place]) Comment: Interpretive Data Fasting glucose >/= 126 [...] was last revised 2022. Testing performed by: [facility], [place], [address] Calcium 9.5 8.5 - 10.3 mg/dL [facility] ([place]) Comment:Testing performed by : [facility], [place], [address] Bilirubin, total 0.4 0.1 - 1.2 mg/dL [facility] ([place]) Comment:Testing performed by : [facility], [place], [address] Protein, pl 6.6 6.5 - 8.5 g/dL [facility] ([place]) Comment:Testing performed by : [facility], [place], [address] Albumin 4.2 3.5 - 5.0 g/dL [facility] ([place]) Comment:Testing performed by : [facility], [place], [address] Alk phos 118 40 - 130 Units/L [facility] ([place]) Comment:Testing performed by : [facility], [facility], [place], [address] ALT 88(H) 7 - 45 Units/L [facility] ([place]) Comment:Testing performed by : [facility], [facility], [place], [address] AST 35 10 - 45 Units/L [facility] ([place]) Comment:Testing performed by : [facility], [facility], [place], [address] Blood 04/18/2024 10:0 0 AM ACCOUNT PLANNER 04/18/2024 10:47 AM ACCOUNT PLANNER us Chalino Chapa MD LAB BLOOD ORDERABLES Aylin l Result [facility] ([place]) 1 [facility] Department [place] [address] * MT ARTHROCENTESIS ASPIR&/INJ MAJOR JT/BURSA W/US (04/17/2024 2:00 PM ACCOUNT PLANNER) Narrative Shadi Tan DO - 04/17/2024 2:00 PM ACCOUNT PLANNER Shadi Tan DO 04/17/2024 2:55 PM Large [...] - Final * eGFR (04/04/2024 10:35 AM ACCOUNT PLANNER) eGFR >90 >=60 mL/min/1. 73 m2 Comment: [...] was last reviewed 2021. Testing performed by: [facility], [facility], [place], [address] Blood 04/04/2024 10:3 5 AM ACCOUNT PLANNER 04/04/2024 11:16 AM ACCOUNT PLANNER Zoraida Villegas NP LAB BLOOD ORDERABLES Final Result [facility] ([place]) 1 [facility] Department [place] [address] * Differential, auto (04/04/2024 10:35 AM ACCOUNT PLANNER) Neutrophil abs 1.6 1.5 - 6.5 K/cumm Comment:Testing performed by : [facility], [place], [address] Imm gran abs 0.0 0.0 - 0.1 K/cumm [facility] ([place]) Comment:Testing performed by : [facility], [facility], [place], [address] Lymphocyte abs 1.2 0.8 - 3.3 K/cumm [facility] ([place]) Comment:Testing performed by : [facility], [facility], [place], [address] Monocyte abs 0.3 0.2 - 0.8 K/cumm [facility] ([place]) Comment:Testing performed by : [facility], [place], [address] Eosinophil abs 0.1 0.0 - 0.5 K/cumm [facility] ([place]) Comment:Testing performed by : [facility], [place], [address] Basophil abs 0.0 0.0 - 0.1 K/cumm [facility] ([place]) Comment:Testing performed by : [place], [address] Neutrophil pct 50.0 % [facility] ([place]) Comment: Interpretive Data Percent cell count reference ranges are not reported, since discordance with absolute values may lead to misinterpretation of CBC data. Current Interpretive Data was last revised on 2017. Testing performed by: [place], [address] Imm gran pct 0.6 % [facility] ([place]) Comment: Interpretive Data Percent cell count reference ranges are not reported, since discordance with absolute values may lead to misinterpretation of CBC data. Current Interpretive Data was last revised on 2017. Testing performed by: [facility], [place], [address] Lymphocyte pct 36.4 % [facility] ([place]) Comment: Interpretive Data Percent cell count reference ranges are not reported, since discordance with absolute values may lead to misinterpretation of CBC data. Current Interpretive Data was last revised on 2017. Testing performed by: [facility], [facility], [place], [address] Monocyte pct 8.9 % [facility] ([place]) Comment: Interpretive Data Percent cell count reference ranges are not reported, since discordance with absolute values may lead to misinterpretation of CBC data. Current Interpretive Data was last revised on 2017. Testing performed by: [facility], [facility], [place], [address] Eosinophil pct 3.5 % [facility] ([place]) Comment: Interpretive Data Percent cell count reference ranges are not reported, since discordance with absolute values may lead to misinterpretation of CBC data. Current Interpretive Data was last revised on 2017. Testing performed by: [facility], [facility], [place], [address] Basophil pct 0.6 % [facility] ([place]) Comment: Interpretive Data Percent cell count reference ranges are not reported, since discordance with absolute values may lead to misinterpretation of CBC data. Current Interpretive Data was last revised on 2017. Testing performed by: [facility], [place], [address] Blood 04/04/2024 10:3 5 AM ACCOUNT PLANNER 04/04/2024 10:40 AM ACCOUNT PLANNER Zoraida Villegas LEAF TINNER LAB BLOOD ORDERABLES Final Result [facility] ([place]) 1 [facility] Department [place] [address] * (ABNORMAL) CBC with auto differential (04/04/2024 10:35 AM ACCOUNT PLANNER) WBC 3.1(L) 3.8 - 9.9 K/cumm Comment:Testing performed by : [facility] [place], [address] [facility] , Medical Office [address], [place] [address] Hgb 11.2(L) 11.9 - 15.5 g/dL [facility] ([place]) Comment:Testing performed by : [facility] [address], Medical Office [facility] [address], [place] [address] Hct 34.6(L) 35.6 - 45.5 % [facility] ([place]) Comment:Testing performed by : [facility] [address], Medical Office [facility] [address], [place] [address] Plt 129(L) 150 - 400 K/cumm [facility] ([place]) Comment:Testing performed by : [facility] [address], Medical Office [facility] [address], [place] [address] MPV 9.0(L) 9.1 - 12.3 fL [facility] ([place]) Comment:Testing performed by : [facility] [address], Medical Office [facility] [address], [place] [address] RBC 3.24(L) 3.90 - 5.20 M/cumm [facility] ([place]) Comment:Testing performed by : [facility] [address], Medical Office [facility] [address], [place] [address] MCV 106.8(H) 81.3 - 96.4 fL [facility] ([place]) Comment:Testing performed by : [facility] [address], Medical Office [facility] [address], [place] [address] MCH 34.6(H) 27.1 - 33.3 pg [facility] ([place]) Comment:Testing performed by : [facility] [address], Medical Office [facility] [address], [place] [address] MCHC 32.4 32.3 - 35.7 g/dL [facility] ([place]) Comment:Testing performed by : [facility] [address], Medical Office [facility] [address], [place] [address] RDW CV 14.2 11.1 - 14.9 % [facility] ([place]) Comment:Testing performed by : [facility] [address], Medical Office [facility] [address], [place] [address] RDW SD 55.2(H) 35.7 - 48.1 fL [facility] ([place]) Comment:Testing performed by : [facility] [address], Medical Office [facility] [address], [place] [address] NRBC abs Not Measured 0.00 - 0.01 K/cumm [facility] ([place]) Comment:Testing performed by : [facility] [address], Medical Office [facility] [address], [place] [address] Blood 04/04/2024 10:3 5 AM ACCOUNT PLANNER 04/04/2024 10:40 AM ACCOUNT PLANNER Zoraida Villegas LEAF TINNER LAB BLOOD ORDERABLES Final Result [facility] ([place]) 1 [facility] Department [place] [address] * (ABNORMAL) Comprehensive metabolic panel (04/04/2024 10:35 AM ACCOUNT PLANNER) Sodium 142 135 - 145 mmol/L Comment:Testing performed by : [facility], [place], [address] Potassium, pl 3.8 3.3 - 4.9 mmol/L [facility] ([place]) Comment:Testing performed by : [facility], [place], [address] Chloride 103 97 - 110 mmol/L [facility] ([place]) Comment:Testing performed by : [facility], [place], [address] CO2 32 22 - 32 mmol/L [facility] ([place]) Comment:Testing performed by : [facility], [place], [address] Anion gap 8 2 - 15 mmol/L [facility] ([place]) Comment:Testing performed by : [facility], [place], [address] BUN 14 6 - 25 mg/dL [facility] ([place]) Comment:Testing performed by : [facility], [place], [address] Creatinine 0.46(L) 0.60 - 1.10 mg/dL [facility] ([place]) Comment:Testing performed by : [facility], [place], [address] Glucose 134 70 - 199 mg/dL [facility] [...] was last revised 2022. Testing performed by: [place], [address] Calcium 9.7 8.5 - 10.3 mg/dL [facility] ([place]) Comment:Testing performed by : [place], [address] Bilirubin, total 0.4 0.1 - 1.2 mg/dL [facility] ([place]) Comment:Testing performed by : [place], [address] Protein, pl 6.8 6.5 - 8.5 g/dL [facility] ([place]) Comment:Testing performed by : [facility], [place], [address] Albumin 4.3 3.5 - 5.0 g/dL [facility] ([place]) Comment:Testing performed by : [facility], [place], [address] Alk phos 129 40 - 130 Units/L [facility] ([place]) Comment:Testing performed by : [place], [address] ALT 53(H) 7 - 45 Units/L [facility] ([place]) Comment:Testing performed by : [facility], [place], [address] AST 25 10 - 45 Units/L [facility] ([place]) Comment:Testing performed by : [place], [address] Blood 04/04/2024 10:3 5 AM ACCOUNT PLANNER 04/04/2024 11:16 AM ACCOUNT PLANNER us Zoraida Villegas NP LAB BLOOD ORDERABLES Final Result [facility] ([place]) 1 [facility] [place] [address] * Differential, auto (03/21/2024 10:40 AM ACCOUNT PLANNER) Neutrophil abs 1.9 1.5 - 6.5 K/cumm Comment:Testing performed by : [facility] [address], Medical Office [facility] [address] [facility] [address], [place] [address] Imm gran abs 0.0 0.0 - 0.1 K/cumm [facility] ([place]) Comment:Testing performed by : [facility] [address], Medical Office [facility] [address], [place] [address] Lymphocyte abs 1.5 0.8 - 3.3 K/cumm [facility] ([place]) Comment:Testing performed by : [facility] [address], Medical Office [facility] [address], [place] [address] Monocyte abs 0.4 0.2 - 0.8 K/cumm [facility] ([place]) Comment:Testing performed by : [facility] [address], Medical Office [facility] [address], [place] [address] Eosinophil abs 0.1 0.0 - 0.5 K/cumm [facility] ([place]) Comment:Testing performed by : [facility] [address], Medical Office [facility] [address], [place] [address] Basophil abs 0.0 0.0 - 0.1 K/cumm [facility] ([place]) Comment:Testing performed by : [facility] [address], Medical Office [facility] [address], [place] [address] Neutrophil pct 48.7 % [facility] ([place]) Comment: Interpretive Data Percent cell count reference ranges are not reported, since discordance with absolute values may lead to misinterpretation of CBC data. Current Interpretive Data was last revised on 2022. Testing performed by: [facility] [address], Medical Office [facility] [address], [place] [address] Imm gran pct 0.3 % [facility] ([place]) Comment: Interpretive Data Percent cell count reference ranges are not reported, since discordance with absolute values may lead to misinterpretation of CBC data. Current Interpretive Data was last revised on 2022. Testing performed by: [facility] [address], Medical Office [facility] [address], [place] [address] Lymphocyte pct 37.7 % [facility] ([place]) Comment: Interpretive Data Percent cell count reference ranges are not reported, since discordance with absolute values may lead to misinterpretation of CBC data. Current Interpretive Data was last revised on 2022. Testing performed by: [facility] [address], Medical Office [facility] [address], [place] [address] Monocyte pct 8.8 % [facility] ([place]) Comment: Interpretive Data Percent cell count reference ranges are not reported, since discordance with absolute values may lead to misinterpretation of CBC data. Current Interpretive Data was last revised on 2022. Testing performed by: [facility] [address], Medical Office [facility] B [facility] [address], [place] [address] Eosinophil pct 3.5 % [facility] ([place]) Comment: Interpretive Data Percent cell count reference ranges are not reported, since discordance with absolute values may lead to misinterpretation of CBC data. Current Interpretive Data was last revised on 2022. Testing performed by: [facility] [address], Medical Office [facility] [address], [place] [address] Basophil pct 1.0 % [facility] ([place]) Comment: Interpretive Data Percent cell count reference ranges are not reported, since discordance with absolute values may lead to misinterpretation of CBC data. Current Interpretive Data was last revised on 2022. Testing performed by: [facility] [address], Medical Office [facility] [address], [place] [address] Blood 03/21/2024 10:4 0 AM ACCOUNT PLANNER 03/21/2024 10:45 AM ACCOUNT PLANNER Zoraida Villegas NP LAB BLOOD ORDERABLES Final Result [facility] ([place]) 1 [facility] [place] [address] * (ABNORMAL) CBC with auto differential (03/21/2024 10:40 AM ACCOUNT PLANNER) WBC 4.0 3.8 - 9.9 K/cumm Comment:Testing performed by : [facility] [address], Medical Office [address], [place] [address] Hgb 12.2 11.9 - 15.5 g/dL [facility] ([place]) Comment:Testing performed by : [facility] [address], Medical Office [facility] [address], [place] [address] Hct 37.8 35.6 - 45.5 % [facility] ([place]) Comment:Testing performed by : [facility] [address], Medical Office [facility] [address], [place] [address] Plt 151 150 - 400 K/cumm [facility] ([place]) Comment:Testing performed by : [facility] [address], Medical Office [facility] [address], [place] [address] MPV 10.7 9.1 - 12.3 fL [facility] ([place]) Comment:Testing performed by : [facility] [address], Medical Office [facility] [address], [place] [address] RBC 3.55(L) 3.90 - 5.20 M/cumm [facility] ([place]) Comment:Testing performed by : [facility] [address], Medical Office [address], [place] [address] MCV 106.5(H) 81.3 - 96.4 fL [facility] ([place]) Comment:Testing performed by : [facility] [address], Medical Office [facility] [address], [place] [address] MCH 34.4(H) 27.1 - 33.3 pg [facility] ([place]) Comment:Testing performed by : [facility] [address], Medical Office [address], [place] [address] MCHC 32.3 32.3 - 35.7 g/dL [facility] ([place]) Comment:Testing performed by : [facility] [address], Medical Office [address], [place] [address] RDW CV 14.1 11.1 - 14.9 % [facility] ([place]) Comment:Testing performed by : [facility] [address], Medical Office [address], [place] [address] RDW SD 55.9(H) 35.7 - 48.1 fL [facility] ([place]) Comment:Testing performed by : [facility] [address], Medical Office [facility] [address], [place] [address] NRBC abs Not Measured 0.00 - 0.01 K/cumm [facility] ([place]) Comment:Testing performed by : [facility] [address], Medical Office [facility] [address], [place] [address] Blood 03/21/2024 10:4 0 AM ACCOUNT PLANNER 03/21/2024 10:45 AM ACCOUNT PLANNER Zoraida Villegas LEAF TINNER LAB BLOOD ORDERABLES Final Result [facility] ([place]) 1 [facility] Department [place] [address] * eGFR (03/07/2024 9:45 AM ACCOUNT PLANNER) eGFR >90 >=60 mL/min/1. 73 m2 Comment: [...] was last reviewed 2021. Testing performed by: [facility], [place], [address] Blood 03/07/2024 9:45 AM ACCOUNT PLANNER 03/07/2024 9:59 AM ACCOUNT PLANNER us Chalino Chapa MD LAB BLOOD ORDERABLES Aylin freedman Result [facility] ([place]) 1 [facility] Department [place] [address] * (ABNORMAL) Comprehensive metabolic panel (03/07/2024 9:45 AM ACCOUNT PLANNER) Sodium 142 135 - 145 mmol/L Comment:Testing performed by : [place], [address] Potassium, pl 4.2 3.3 - 4.9 mmol/L [facility] ([place]) Comment:Testing performed by : [place], [address] Chloride 102 97 - 110 mmol/L [facility] ([place]) Comment:Testing performed by : [facility], [place], [address] CO2 33(H) 22 - 32 mmol/L [facility] ([place]) Comment:Testing performed by : [facility], [place], [address] Anion gap 6 2 - 15 mmol/L [facility] ([place]) Comment:Testing performed by : [place], [address] BUN 16 6 - 25 mg/dL [facility] ([place]) Comment:Testing performed by : [facility], [place], [address] Creatinine 0.55(L) 0.60 - 1.10 mg/dL [facility] ([place]) Comment:Testing performed by : [facility], [place], [address] Glucose 113 70 - 199 mg/dL [facility] ([place]) Comment: Interpretive Data Fasting glucose >/= 126 [...] was last revised 2022. Testing performed by: [facility], [place], [address] Calcium 9.5 8.5 - 10.3 mg/dL [facility] ([place]) Comment:Testing performed by : [facility], [place], [address] Bilirubin, total 0.4 0.1 - 1.2 mg/dL [facility] ([place]) Comment:Testing performed by : [facility], [place], [address] Protein, pl 6.6 6.5 - 8.5 g/dL [facility] ([place]) Comment:Testing performed by : [facility], [place], [address] Albumin 4.1 3.5 - 5.0 g/dL [facility] ([place]) Comment:Testing performed by : [facility], [place], [address] Alk phos 118 40 - 130 Units/L [facility] ([place]) Comment:Testing performed by : [place], [address] ALT 44 7 - 45 Units/L [facility] ([place]) Comment:Testing performed by : [facility], [place], [address] AST 20 10 - 45 Units/L [facility] ([place]) Comment:Testing performed by : [facility], [place], [address] Blood 03/07/2024 9:45 AM ACCOUNT PLANNER 03/07/2024 9:59 AM ACCOUNT PLANNER us Chalino Chapa MD LAB BLOOD ORDERABLES Aylin freedman Result [facility] ([place]) 1 [facility] Department [place] [address] * Differential, auto (03/07/2024 8:45 AM ACCOUNT PLANNER) Neutrophil abs 1.5 1.5 - 6.5 K/cumm Comment:Testing performed by : [facility] [address], Medical Office [address], [place] [address] Imm gran abs 0.0 0.0 - 0.1 K/cumm [facility] ([place]) Comment:Testing performed by : [facility] [address], Medical Office [facility] [address], [place] [address] Lymphocyte abs 1.1 0.8 - 3.3 K/cumm [facility] ([place]) Comment:Testing performed by : [facility] [address], Medical Office [facility] [address], [place] [address] Monocyte abs 0.3 0.2 - 0.8 K/cumm [facility] ([place]) Comment:Testing performed by : [facility] [address], Medical Office [facility] [address], [place] [address] Eosinophil abs 0.1 0.0 - 0.5 K/cumm [facility] ([place]) Comment:Testing performed by : [facility] [address], Medical Office [facility] [address], [place] [address] Basophil abs 0.0 0.0 - 0.1 K/cumm [facility] ([place]) Comment:Testing performed by : [facility] [address], Medical Office [facility] [address], [place] [address] Neutrophil pct 50.5 % [facility] ([place]) Comment: Interpretive Data Percent cell count reference ranges are not reported, since discordance with absolute values may lead to misinterpretation of CBC data. Current Interpretive Data was last revised on 2022. Testing performed by: [facility] [address], Medical Office [facility] [address], [place] [address] Imm gran pct 0.0 % [facility] ([place]) Comment: Interpretive Data Percent cell count reference ranges are not reported, since discordance with absolute values may lead to misinterpretation of CBC data. Current Interpretive Data was last revised on 2022. Testing performed by: [facility] [address], Medical Office [facility] [address], [place] [address] Lymphocyte pct 36.8 % [facility] ([place]) Comment: Interpretive Data Percent cell count reference ranges are not reported, since discordance with absolute values may lead to misinterpretation of CBC data. Current Interpretive Data was last revised on 2022. Testing performed by: [facility] [address], Medical Office [facility] [address], [place] [address] Monocyte pct 8.6 % [facility] ([place]) Comment: Interpretive Data Percent cell count reference ranges are not reported, since discordance with absolute values may lead to misinterpretation of CBC data. Current Interpretive Data was last revised on 2022. Testing performed by: [facility] [address], Medical Office [facility] [address], [place] [address] Eosinophil pct 3.1 % [facility] ([place]) Comment: Interpretive Data Percent cell count reference ranges are not reported, since discordance with absolute values may lead to misinterpretation of CBC data. Current Interpretive Data was last revised on 2022. Testing performed by: [facility] [address], Medical Office [facility] [address], [place] [address] Basophil pct 1.0 % [facility] ([place]) Comment: Interpretive Data Percent cell count reference ranges are not reported, since discordance with absolute values may lead to misinterpretation of CBC data. Current Interpretive Data was last revised on 2022. Testing performed by: [facility] [address], Medical Office [facility] [address], [place] [address] Blood 03/07/2024 8:45 AM ACCOUNT PLANNER 03/07/2024 9:49 AM ACCOUNT PLANNER us Chalino Chapa MD LAB BLOOD ORDERABLES Aylin freedman Result SABRA SUE ([place]) 1 [facility] [place] [address] * (ABNORMAL) CBC with auto differential (03/07/2024 8:45 AM ACCOUNT PLANNER) WBC 2.9(L) 3.8 - 9.9 K/cumm Comment:Testing performed by : [facility] [address], Medical Office [facility] [address], [place] [address] Hgb 11.8(L) 11.9 - 15.5 g/dL [facility] ([place]) Comment:Testing performed by : [facility] [address], Medical Office [facility] [address], [place] [address] Hct 37.1 35.6 - 45.5 % [facility] ([place]) Comment:Testing performed by : [facility] [address], Medical Office [facility] [address], [place] [address] Plt 135(L) 150 - 400 K/cumm [facility] ([place]) Comment:Testing performed by : [facility] [address], Medical Office [facility] B [facility] [address], [place] [address] MPV 10.4 9.1 - 12.3 fL [facility] ([place]) Comment:Testing performed by : [facility] [address], Medical Office [facility] B [facility] [address], [place] [address] RBC 3.44(L) 3.90 - 5.20 M/cumm [facility] ([place]) Comment:Testing performed by : [facility] [address], Medical Office [facility] B [facility] [address], [place] [address] MCV 107.8(H) 81.3 - 96.4 fL [facility] ([place]) Comment:Testing performed by : [facility] [address], Medical Office [facility] B [facility] [address], [place] [address] MCH 34.3(H) 27.1 - 33.3 pg [facility] ([place]) Comment:Testing performed by : [facility] [address], Medical Office [facility] [address], [place] [address] MCHC 31.8(L) 32.3 - 35.7 g/dL [facility] ([place]) Comment:Testing performed by : [facility] [address], Medical Office [facility] [address], [place] [address] RDW CV 14.5 11.1 - 14.9 % [facility] ([place]) Comment:Testing performed by : [facility] [address], Medical Office [facility] [address], [place] [address] RDW SD 58.0(H) 35.7 - 48.1 fL SABRA ROGERS ([place]) Comment:Testing performed by : [facility] [place] [address], Medical Office [facility] [address], [place] [address] NRBC abs Not Measured 0.00 - 0.01 K/cumm SABRA ROGERS ([place]) Comment:Testing performed by : [facility] [place], [address], Medical Office [facility] [address], [place] [address] Blood 03/07/2024 8:45 AM ACCOUNT PLANNER 03/07/2024 9:49 AM ACCOUNT PLANNER us Chalino Chapa MD LAB BLOOD ORDERABLES Aylin freedman Result SABRA SUE ([place]) 1 [facility] Department [place] [address] * eGFR (02/22/2024 8:10 AM ACCOUNT PLANNER) eGFR >90 >=60 mL/min/1. 73 m2 Comment: [...] last reviewed 2021. Blood 02/22/2024 8:10 AM ACCOUNT PLANNER 02/22/2024 10:47 AM ACCOUNT PLANNER us Neisha iH NP LAB BLOOD ORDERABLES Final R esult Performing Organization Address [facility] Co de Phone Number SABRA ROGERS ([place]) 1 [facility] Department [place] [address] * eGFR (02/22/2024 8:10 AM ACCOUNT PLANNER) eGFR >90 >=60 mL/min/1. 73 m2 Comment: [...] was last reviewed 2021. Testing performed by: [facility], [facility], [place], [address] Blood 02/22/2024 8:10 AM ACCOUNT PLANNER 02/22/2024 8:32 AM ACCOUNT PLANNER us Chalino Chapa MD LAB BLOOD ORDERABLES Aylin l Result Performing Organization Address City/[facility]/ZIP Co de Phone Number SABRA ROGERS ([place]) 1 [facility] Department [place] [address] * Differential, auto (02/22/2024 8:10 AM ACCOUNT PLANNER) Neutrophil abs 1.6 1.5 - 6.5 K/cumm Comment:Testing performed by : [facility], [address] [facility], Medical Office [address], [place] [address] Imm gran abs 0.0 0.0 - 0.1 K/cumm [facility] ([place]) Comment:Testing performed by : [facility] [address], Medical Office [facility] [address], [place] [address] Lymphocyte abs 1.3 0.8 - 3.3 K/cumm [facility] ([place]) Comment:Testing performed by : [facility] [address], Medical Office [facility] [address], [place] [address] Monocyte abs 0.3 0.2 - 0.8 K/cumm [facility] ([place]) Comment:Testing performed by : [facility] [address], Medical Office [facility] [address], [place] [address] Eosinophil abs 0.1 0.0 - 0.5 K/cumm [facility] ([place]) Comment:Testing performed by : [facility] [address], Medical Office [facility] [address], [place] [address] Basophil abs 0.0 0.0 - 0.1 K/cumm [facility] ([place]) Comment:Testing performed by : [facility] [address], Medical Office [facility] [address], [place] [address] Neutrophil pct 48.5 % [facility] ([place]) Comment: Interpretive Data Percent cell count reference ranges are not reported, since discordance with absolute values may lead to misinterpretation of CBC data. Current Interpretive Data was last revised on 2022. Testing performed by: [facility] [address], Medical Office [facility] B [facility] [address], [place] [address] Imm gran pct 0.3 % [facility] ([place]) Comment: Interpretive Data Percent cell count reference ranges are not reported, since discordance with absolute values may lead to misinterpretation of CBC data. Current Interpretive Data was last revised on 2022. Testing performed by: [facility] [address], Medical Office [facility] [address], [place] [address] Lymphocyte pct 39.7 % [facility] ([place]) Comment: Interpretive Data Percent cell count reference ranges are not reported, since discordance with absolute values may lead to misinterpretation of CBC data. Current Interpretive Data was last revised on 2022. Testing performed by: [facility] [address], Medical Office [facility] [address], [place] [address] Monocyte pct 8.1 % SABRA ROGERS ([place]) Comment: Interpretive Data Percent cell count reference ranges are not reported, since discordance with absolute values may lead to misinterpretation of CBC data. Current Interpretive Data was last revised on 2022. Testing performed by: [facility] [address], Medical Office [facility] [address], [place] [address] Eosinophil pct 2.8 % EMELINA ROGERS ([place]) Comment: Interpretive Data Percent cell count reference ranges are not reported, since discordance with absolute values may lead to misinterpretation of CBC data. Current Interpretive Data was last revised on 2022. Testing performed by: [facility] [address], Medical Office [facility] B [facility] [address], [place] [address] Basophil pct 0.6 % SABRA ROGERS ([place]) Comment: Interpretive Data Percent cell count reference ranges are not reported, since discordance with absolute values may lead to misinterpretation of CBC data. Current Interpretive Data was last revised on 2022. Testing performed by: [facility] [address], Medical Office [facility] B [facility] [address], [place] [address] Blood 02/22/2024 8:10 AM ACCOUNT PLANNER 02/22/2024 8:17 AM ACCOUNT PLANNER us Chalino Chapa MD LAB BLOOD ORDERABLES Aylin l Result SABRA ROGERS ([place]) 1 [facility] [place] [address] * (ABNORMAL) CBC with auto differential (02/22/2024 8:10 AM ACCOUNT PLANNER) WBC 3.2(L) 3.8 - 9.9 K/cumm Comment:Testing performed by : [facility] [address], Medical Office [facility] [address], [place] [address] Hgb 12.7 11.9 - 15.5 g/dL SABRA ROGERS ([place]) Comment:Testing performed by : [facility] [address], Medical Office [facility] [address], [place] [address] Hct 39.8 35.6 - 45.5 % [facility] ([place]) Comment:Testing performed by : [facility] [address], Medical Office [address], [place] [address] Plt 125(L) 150 - 400 K/cumm [facility] ([place]) Comment:Testing performed by : [facility] [address], Medical Office [address], [place] [address] MPV 11.1 9.1 - 12.3 fL [facility] ([place]) Comment:Testing performed by : [facility] [address], Medical Office [facility] [address], [place] [address] RBC 3.68(L) 3.90 - 5.20 M/cumm [facility] ([place]) Comment:Testing performed by : [facility] [address], Medical Office [address], [place] [address] MCV 108.2(H) 81.3 - 96.4 fL [facility] ([place]) Comment:Testing performed by : [facility] [address], Medical Office [facility] [address], [place] [address] MCH 34.5(H) 27.1 - 33.3 pg [facility] ([place]) Comment:Testing performed by : [facility] [address], Medical Office [facility] [address], [place] [address] MCHC 31.9(L) 32.3 - 35.7 g/dL [facility] ([place]) Comment:Testing performed by : [facility] [address], Medical Office [facility] [address], [place] [address] RDW CV 15.5(H) 11.1 - 14.9 % [facility] ([place]) Comment:Testing performed by : [facility] [address], Medical Office [address], [place] [address] RDW SD 62.6(H) 35.7 - 48.1 fL [facility] ([place]) Comment:Testing performed by : [facility] [address], Medical Office [address], [place] [address] NRBC abs Not Measured 0.00 - 0.01 K/cumm [facility] ([place]) Comment:Testing performed by : [facility] [place], 4 [facility] , Medical Office Bld[address], [place] [address] Blood 02/22/2024 8:10 AM ACCOUNT PLANNER 02/22/2024 8:17 AM ACCOUNT PLANNER us Chalino Chapa MD LAB BLOOD ORDERABLES Aylin l Result Performing Organization Address City/[facility]/ZIP Co de Phone Number [facility] ([place]) 1 [facility] Department [place] [address] * TSH (02/22/2024 8:10 AM ACCOUNT PLANNER) Pathologist [facility] Thyroid Stimulating Hormone 2.55 0.30 - 4.20 mcIUnit/mL Blood 02/22/2024 8:10 AM ACCOUNT PLANNER 02/22/2024 10:47 AM ACCOUNT PLANNER us Neisha Hi NP LAB BLOOD ORDERABLES Final R esult Performing Organization Address [facility] Co de Phone Number [facility] ([place]) 1 [facility] Department [place] [address] * (ABNORMAL) Comprehensive metabolic panel (02/22/2024 8:10 AM ACCOUNT PLANNER) Sodium 142 135 - 145 mmol/L Potassium, pl 4.1 3.3 - 4.9 mmol/L [facility] ([place]) Chloride 101 97 - 110 mmol/L [facility] ([place]) CO2 34(H) 22 - 32 mmol/L [facility] ([place]) Anion gap 8 2 - 15 mmol/L [facility] ([place]) BUN 16 6 - 25 mg/dL [facility] ([place]) Creatinine 0.50(L) 0.60 - 1.10 [...] [facility] ([place]) Blood 02/22/2024 8:10 AM ACCOUNT PLANNER 02/22/2024 10:47 AM ACCOUNT PLANNER us Neisha Hi LEAF TINNER LAB BLOOD ORDERABLES Final R esult [facility] ([place]) [address] [place] [address] Department [place] [address] * (ABNORMAL) Comprehensive metabolic panel (02/22/2024 8:10 AM ACCOUNT PLANNER) Sodium 136 135 - 145 mmol/L Comment:Testing performed by : [place], [address] Potassium, pl 3.9 3.3 - 4.9 mmol/L [facility] ([place]) Comment:Testing performed by : [place], [address] Chloride 97 97 - 110 mmol/L [facility] ([place]) Comment:Testing performed by : [place], [address] CO2 34(H) 22 - 32 mmol/L [facility] ([place]) Comment:Testing performed by : [place], [address] Anion gap 4 2 - 15 mmol/L [facility] ([place]) Comment:Testing performed by : [facility], [place], [address] BUN 15 6 - 25 mg/dL [facility] ([place]) Comment:Testing performed by : [facility], [place], [address] Creatinine 0.49(L) 0.60 - 1.10 mg/dL [facility] ([place]) Comment:Testing performed by : [facility], [place], [address] Glucose 154 70 - 199 mg/dL CERNER [...] was last revised 2022. Testing performed by: [facility], [place], [address] Calcium 9.7 8.5 - 10.3 mg/dL [facility] ([place]) Comment:Testing performed by : [place], [address] Bilirubin, total 0.5 0.1 - 1.2 mg/dL [facility] ([place]) Comment:Testing performed by : [place], [address] Protein, pl 7.0 6.5 - 8.5 g/dL [facility] ([place]) Comment:Testing performed by : [facility], [place], [address] Albumin 4.4 3.5 - 5.0 g/dL [facility] ([place]) Comment:Testing performed by : [facility], [place], [address] Alk phos 131(H) 40 - 130 Units/L [facility] ([place]) Comment:Testing performed by : [place], [address] ALT 37 7 - 45 Units/L [facility] ([place]) Comment:Testing performed by : [facility], [facility], [place], [address] AST 20 10 - 45 Units/L [facility] ([place]) Comment:Testing performed by : [facility], [facility], [place], [address] Blood 02/22/2024 8:10 AM ACCOUNT PLANNER 02/22/2024 8:32 AM ACCOUNT PLANNER us Chalino Chapa MD LAB BLOOD ORDERABLES Aylin freedman Result [facility] ([place]) 1 [facility] Department [place] [address] from Last 3 Months Insurance [address] [place] [address] MEDICARE MEDICARE [facility] MEDICARE SUPPLEMENT MEDICARE [facility] MEDICARE SUPPLEMENT Advance Directives For more information, please contact: [phone] Documents on File Type Date Recorded Patient Manager Printing Expl anation ADVANCE DIRECTIVE 12/20/2023 8:01 AM Power of Licensed Dispensing Optician-Medical * Full Code (Latest Code Status on File) Date Activated Date Inactivated Comments 12/11/2023 12:19 PM 12/19/2023 6:45 PM Care Teams Commercial Accountant Relationship Specialty Start Date End Date Bryan Davey DO PCP - General Internal Medicine 8/13/24
--- OUTSIDE RECORDS SUMMARY | 2024-05-24 10:18 | XMS_ITS | Clinical Summary ---
Author Organization [facility] Address [address] [place] [address] Care Team Providers Care Cigar Machine Feeder Name Role Phone Unavailable Primary Care Provider [...] Encounters Date Type Department Care Team Description 05/22/2024 External Device Data STL ABSTRACTION Provider, Abstract 05/01/2024 External Device Data STL ABSTRACTION Provider, [...] 08/07/2020 Insurance MEDICARE PART A AND B [facility] SUPP
--- OUTSIDE RECORDS SUMMARY | 2024-05-24 10:18 | XMS_ITS | Encounter Summary ---
Author Organization [facility] Address [facility] [facility] [place] [address] Care Team Providers Care Sanitarian Inspector Name Role Phone Andie Ang MD Primary Care Provider + [phone] Mervat Kelley Primary Care Provider + Andie Ang MD Primary Care Provider + [phone] Mervat Kelley Primary Care Provider + Andie Ang MD Primary Care Provider + [phone] Mervat Kelley Primary Care Provider + Encounter Details Date Type Department Care Team (Late st Contact Info) Description 11/15/2018 Lab Requisition [facility] [address] [place] [address] Sarath De Guzman MD [address] [place] [address] Social History Tobacco Use Types Packs/Day Years [...] AM CDT) Case Report Dermatopathology Report Case: [id number] Authorizing Provider: Sarath De Guzman MD Collected: 11/14/2018 12:00 AM Ordering Location: [facility] Received: 11/15/2018 12:29 PM Pathologist: [...] specimen consists of a shave biopsy measuring [id number]. Jar 0. 12:59 PM CDT DERMATOPATHOLOGY LABORATORY [...] characteristic determined by the Dermatopathology Laboratory at [facility], directed by Dr. Frederick Schofield. These tests need not be, and therefore are not, approved by the [place] Food and Drug Administration. The tests are used for clinical purposes. Billing Codes Specimen Charges Stain Charges 54173 1 12:59 PM CDT DERMATOPATHOLOGY LABORATORY Embedded Images 12:59 PM CDT DERMATOPATHOLOGY LABORATORY Pathology/Cytolog y TISSUE SPECIMEN FROM SKIN / Unknown 11/14/2018 11/15/2018 12:29 PM CDT Sarath De Guzman MD LAB - PATHOLOGY/CYTO LOGY ORDERABLES DERMATOPATHOLOGY LABORATORY [facility] - Department of Dermatology [address] [facility], [address]th [place] [address], [facility] [phone] documented in this encounter Visit Diagnoses Not on filedocumented in this encounter Care Teams Sanitarian Inspector Relationship Specialty Start Date End Date Andie Ang MD [address] [phone] PCP - General 08/18/17 09/29/21 Mervat Kelley APRN-CASE REVIEWER [address] [place] [address] Dr [address] [place] [phone] PCP - General Nurse Practitioner 09/30/21 09/30/21 Andie Ang MD [address] [phone] PCP - General 10/01/21 10/12/21 Mervat Kelley APRN-CASE REVIEWER [address] [phone] PCP - General 10/13/21 10/31/21 Andie Ang MD [address] [phone] PCP - General 11/01/21 11/23/21 Mervat Kelley APRN-CASE REVIEWER [address] [phone] PCP - General 11/24/21 documented as of this encounter
--- OUTSIDE RECORDS SUMMARY | 2024-05-24 10:18 | XMS_ITS | Clinical Summary ---
Author Organization [facility] Address [address] [facility] [place] [address] Care Team Providers Care Flaker Operator Name Role Phone Mervat Kelley INDUSTRIAL MAINTENANCE MILLWRIGHT-CHIEF MEDICAL OFFICER Primary Care Provider + Source Comments [facility],non-owned Affiliates and Associated Physician Practices is amultiple site organization consisting of ambulatory clinics and hospital sitesin [place], [place], [place] and [place]. This disclosure is being madepursuant to the Care Everywhere program and may not contain all information available regarding this patient. Last updated 17.[facility] Allergies Active Allergy Reactions Criticality [...] 71.7 kg (158 lb) 04/06/2022 10:56 AM BUSINESS ADMINISTRATION INSTRUCTOR Height 152.4 cm (5') 12/22/2021 12:39 PM [...] 4:59 AM 09/30/2021 2:57 PM Care Teams Flaker Operator Relationship Specialty Start Date End Date Mervat Kelley APRN-DAVIS [address] [phone] PCP - General 11/24/21
--- OUTSIDE RECORDS SUMMARY | 2024-05-24 10:18 | XMS_ITS | Clinical Summary ---
Author Organization [facility] Address [address] [address] Care Team Providers Care Agile Coach Name Role Phone Unavailable Primary Care Provider [...]
--- OUTSIDE RECORDS SUMMARY | 2024-05-24 10:18 | XMS_ITS | Encounter Summary ---
Author Organization [facility] Address [address] [place] [address] Phone Care Team Providers Care Associate Consulting Engineer Name Role Phone Bryan Davey DO Primary Care Provider +1- [phone] Encounter Details Date Type Department Care Team (Late st Contact Info) Description 05/24/2024 Telephone [facility] Oncology [address] [place] [address] [address] [address] Radha Veliz RN Social History [...] on file Legal Sex Female 1:43 AM DINING MANAGER Gender Identity Not on file Sexual Orientation Not on file documented as of this encounter Miscellaneous Notes * Telephone Encounter - Radha Veliz RN - 05/24/2024 8:39 AM CST Patients call was returned and she as informed a CBC order has been sent to [facility] per her request. She was instructed to have them done this morning. NG MANAGER documented in this encounter Plan of Treatment Upcoming Encounters Date Type Department Care Team (Late st Contact Info) Description 05/27/2024 9:30 AM DINING MANAGER Office Visit [facility] Oncology [address] [place] [address] Medical Office [address] [place] [address] Chalino Chapa MD [address] [place] [address] MDS (myelodysplastic syndrome) (HCC) (Primary Dx); Anemia, unspecified type documented as of this encounter Visit Diagnoses Not on filedocumented in this encounter Care Teams Associate Consulting Engineer Relationship Specialty Start Date End Date Bryan Davey DO PCP - General Internal Medicine 11/14/23 documented as of this encounter
--- OUTSIDE RECORDS SUMMARY | 2024-05-24 10:18 | XMS_ITS | Referral Summary ---
Author Organization [facility] Address [address] [place] [address] Care Team Providers Care Sales Rep Name Role Phone Mervat Kelley TUGGER OPERATOR-MIXING AND MOLDING MACHINE OPERATOR Primary Care Provider + Source Comments [facility],non-owned Affiliates and Associated Physician Practices is amultiple site organization consisting of ambulatory clinics and hospital sitesin [place], [place], [place] and [place]. This disclosure is being madepursuant to the Care Everywhere program and may not contain all information available regarding this patient. Last updated 17.[facility] Allergies Active Allergy Reactions Criticality [...] 71.7 kg (158 lb) 04/06/2022 10:56 AM ACTUARIAL TECHNICIAN Height 152.4 cm (5') 12/22/2021 12:39 PM CDT Body Mass Index 30.86 12/22/2021 12:39 PM CDT Plan of Treatment Not on file Advance Directives * Full Code (Latest Code Status on File) Date Activated Date Inactivated Comments 09/29/2021 4:59 AM 09/30/2021 2:57 PM Care Teams Sales Rep Relationship Specialty Start Date End Date Mervat Kelley APRN-DAVIS [address] [address] PCP - General 11/24/21
--- OUTSIDE RECORDS SUMMARY | 2024-05-24 10:18 | XMS_ITS | Encounter Summary ---
Author Organization [facility] Address [address] [place] [address] Care Team Providers Care Mc Kay Stitcher Name Role Phone Mervat Kelley ASSOCIATE PROFESSOR OF GEOLOGY-WASHTUB WORKER HELPER Primary Care Provider + Encounter Details Date Type Department Care Team (Late st Contact Info) Description 10/06/2022 Lab Requisition [facility] - Pathology Lab [address] [place] [address] Jesus Louis MD [address] [address] Illness, unspecified Social History Tobacco [...] Report Bone Marrow Patholog y Report Case: [id number] Authorizing Provider: Jesus Louis MD Collected: 10/05/2022 09:15 AM Ordering Location: [facility] Pathology Lab Received: 10/06/2022 01:27 PM Pathologist: Linda Hauser MD Specimens: A) - Bone Marrow Clot, Fluoro-guided bone marrow aspiration B) - Bone Marrow Core, Fluoro-guided bone marrow core bx 10/07/2022 1:40 PM CDT [facility] Final Diagnosis Bone marrow, aspirate, clot section, and core biopsy: - 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 10/07/2022 1:40 PM CDT [facility] Peripheral Smear Description CBC Data: WBC - 2.2, Hgb - 6.3, MCV - 122.4, MCHC - 31.2, and Platelets - 260. Leukocyte number: decreased. Granulocyte morphology: normal. Lymphocyte morphology: normal. Erythrocyte number: decreased. Erythrocyte morphology: macrocytic. Anisopoikilocytosis: mild. Polychromasia: mild. Platelet number: normal. Platelet morphology: normal. 10/07/2022 1:40 PM [facility] Bone Marrow Aspirate The aspirate [...] Control is appropriately reactive. 10/07/2022 1:40 PM [facility] Bone Marrow Core Biopsy and [...] an increased number of early erythroid progenitors. [id number] demonstrates additional, more mature erythroid lineage cells, confirming erythroid hyperplasia. Myeloperoxidase is positive in relatively fewer numbers of myeloid precursors. CD3 and CD20 show a normal number and distribution of T-cells and B-cells, respectively. Reticulin staining shows no significant marrow fibrosis (MF-0), and trichrome staining shows no collagen deposition. 10/07/2022 1:40 PM [facility] Flow Cytometry Summary Concurrent flow cytometry ([id number]) shows no evidence of non-Hodgkin lymphoma or high-grade myeloid neoplasm. 10/07/2022 1:40 PM [facility] Clinical History 82 year old woman with macrocytic anemia. 10/07/2022 1:40 PM [facility] Materials Received Received are 22 slides and 3 blocks (A1, A2; B1) labeled [id number] along with a copy of the outside pathology report. The materials originate from [address] [facility], [place] [address]. All original materials are returned to the referring institution, along with a copy of our final report. 10/07/2022 1:40 PM CDT [facility] Pathologist Location at [facility] 10/07/2022 1:40 PM CDT [facility] Disclaimer The performance characteristics of all immunohistochemical and indirect immunofluorescence stains (if any) cited in this report were determined by the Histopathology Laboratory of [facility]. Some of these tests were developed [...] LAB Embedded Images 10/07/2022 1:40 PM CDT [facility] Pathology/Cytology BONE MARROW SPECIMEN / Unknown 10/05/2022 9:15 AM CDT 10/06/2022 1:27 PM CDT Miscellaneous samples (specimen) BONE MARROW SPECIMEN / Unknown 10/05/2022 9:15 AM CDT 10/06/2022 1:27 PM CDT Jesus Louis MD LAB - PATHOLOGY/CYTO LOGY ORDERABLES [facility] [address] [phone] documented in this encounter Visit Diagnoses Diagnosis Illness, unspecified documented in this encounter Care Teams Mc Kay Stitcher Relationship Specialty Start Date End Date Mervat Kelley APRN-CNP [address] [address] PCP - General 11/24/21 documented as of this encounter
--- OUTSIDE RECORDS SUMMARY | 2024-05-24 10:18 | XMS_ITS | Encounter Summary ---
Author Organization [facility] Address [address] [place] [address] Care Team Providers Care Utility Tech Name Role Phone Bryan Davey DO Primary Care Provider +1- [phone] Encounter Details Date Type Department Care Team (Late st Contact Info) Description 05/24/2024 Telephone [facility] [address] [facility] [address] [place] [address] Chalino Chapa MD [address] [place] [address] Social History Tobacco Use Types Packs/Day Years [...] on file Legal Sex Female 1:43 AM ADDICTION COUNSELOR Gender Identity Not on file Sexual Orientation Not on file documented as of this encounter Miscellaneous Notes * Telephone Encounter - Jennifer Pagan - 05/24/2024 8:10 AM CST Pt's daughter called the infusion center at this time requesting to have a lab order for CBC sent to [facility] due to being admitted. Stated she has been feeling more tired than usual. Note routed to [facility]. CTION COUNSELOR documented in this encounter Plan of Treatment Upcoming Encounters Date Type Department Care Team (Late st Contact Info) Description 05/27/2024 9:30 AM ADDICTION COUNSELOR Office Visit [facility] Oncology [address] [place] [address] [address] [place] [id number] Chalino Chapa MD [address] [facility] [address] [place] [address] MDS (myelodysplastic syndrome) (HCC) (Primary Dx); Anemia, unspecified type documented as of this encounter Visit Diagnoses Not on filedocumented in this encounter Care Teams Utility Tech Relationship Specialty Start Date End Date Bryan Davey DO PCP - General Internal Medicine 11/14/23 documented as of this encounter
--- OUTSIDE RECORDS SUMMARY | 2024-05-24 10:18 | XMS_ITS | Encounter Summary ---
Author Organization [facility] Address [address] [place] [address] Care Team Providers Care Airline Pilot Name Role Phone Unavailable Primary Care Provider Unavailabl e Encounter Details Date Type Department Care Team (Late st Contact Info) Description 05/22/2024 External Device Data [facility] ABSTRACTION Provider, Abstract NO ADDRESS ON FILE Social History Tobacco Use Types Packs/Day Years Used Date Smoking Tobacco: Never Smokeless Tobacco: Never Alcohol Use Standard Drinks/Week Comments Not Currently [...]
--- OUTSIDE RECORDS SUMMARY | 2024-05-24 10:18 | XMS_ITS | Referral Summary ---
Author Organization [facility] B Address [address] [place] [address] Care Team Providers Care Stenographer Secretary Name Role Phone Bryan Davey DO Primary Care Provider [phone] Encounters Date Type Department Care Team Description 05/24/2024 Telephone [facility] [address] [place] [address] Office [facility] [address] [place] [address] Radha Veliz RN 05/24/2024 Telephone [facility] [address] [facility] [address] [place] [address] Chalino Chapa MD 05/20/2024 Telephone [facility] [address] [place] [address] [address] [place] [address] Radha Veliz, ALBERT 05/20/2024 Telephone [facility] [address] [place] [address] [address] [place] [address] Radha Veliz, ALBERT 05/17/2024 Orders Only [facility] [address] [place] [address] [address] [place] [address] Chalino Chapa MD MDS (myelodysplastic syndrome) (HCC) (Primary Dx) 05/17/2024 Telephone [facility] [address] [facility] [address] [place] [address] Karen Donaldson RN 05/17/2024 1:00 PM COARSE WIRE DRAWER Infusion [address] [place] [phone] MDS (myelodysplastic syndrome) (HCC) (Primary Dx); Encounter for care related to Port-a-Cath 05/16/2024 Telephone [facility] [address] [place] [address] Medical Office [facility] [address] [place] [address] Radha Veliz, ALBERT 05/16/[address] [place] [address] Yadi Gtz RN 05/16/2024 10:30 AM COARSE WIRE DRAWER Lab [address] [place] [address] MDS (myelodysplastic syndrome) (HCC) 05/16/[address] [place] [address] Chalino Chapa MD 05/16/2024 Orders Only [facility] [address] [place] [address] Medical Office [facility] [address] [place] [address] Chalino Chapa MD MDS (myelodysplastic syndrome) (HCC) (Primary Dx) 05/10/2024 11:00 AM COARSE WIRE DRAWER Infusion [address] [place] [address] Anemia, unspecified type (Primary Dx); MDS (myelodysplastic syndrome) (HCC) 05/10/2024 Orders Only [facility] [address] [place] [address] Office [facility] [address] [place] [address] Chalino Chapa MD MDS (myelodysplastic syndrome) (HCC) (Primary Dx) 05/10/2024 9:45 AM COARSE WIRE DRAWER Lab [address] [place] [address] Anemia, unspecified type (Primary Dx); MDS (myelodysplastic syndrome) (HCC) 05/08/2024 Orders Only [facility] [address] [place] [address] Medical [address] [place] [address] Chalino Chapa MD MDS (myelodysplastic syndrome) (HCC) (Primary Dx) 05/03/2024 10:30 AM COARSE WIRE DRAWER Infusion [address] [place] [address] Encounter for care related to Port-a-Cath (Primary Dx); MDS (myelodysplastic syndrome) (HCC) 05/02/2024 10:30 AM COARSE WIRE DRAWER Infusion [address] [address] MDS (myelodysplastic syndrome) (HCC) (Primary Dx); Encounter for care related to Port-a-Cath 05/01/2024 9:30 AM COARSE WIRE DRAWER Infusion [address] [place] [address] MDS (myelodysplastic syndrome) (HCC) (Primary Dx); Encounter for care related to Port-a-Cath 04/30/2024 10:00 AM COARSE WIRE DRAWER Infusion [address] [address] MDS (myelodysplastic syndrome) (HCC) (Primary Dx); Encounter for care related to Port-a-Cath 04/29/2024 Orders Only [facility] [address] [place] [address] Medical Office [facility] [address] [place] [address] Milla Armenta, CLAUDIA MDS (myelodysplastic syndrome) (HCC) (Primary Dx) 04/29/2024 8:45 AM COARSE WIRE DRAWER Lab [address] [place] [address] MDS (myelodysplastic syndrome) (HCC) 04/29/2024 9:30 AM COARSE WIRE DRAWER Infusion [address] [place] [address] MDS (myelodysplastic syndrome) (HCC) (Primary Dx); Encounter for care related to Port-a-Cath 04/29/2024 9:15 AM COARSE WIRE DRAWER Office Visit [facility] [address] [place] [address] Office dg [address] [place] [address] Milla Armenta, CLAUDIA MDS (myelodysplastic syndrome) (HCC) 04/26/2024 Telephone [facility] [address] [place] [address] Office dg [address] [place] [address] Clau Cabral, CLT 04/25/2024 Telephone [facility] [address] [place] [address] Office dg [address] [place] [address] Anisa Villagran, CLT 04/25/2024 Orders Only [facility] [address] [place] [address] Office dg [address] [place] [address] Chalino Chapa MD 04/24/2024 Orders Only [facility] [address] [place] [address] Office [facility] [address] [place] [address] Chalino Chapa MD 04/23/2024 Telephone [facility] [address] [place] [address] Office dg [address] [place] [address] Anisa Villagran, CLT 04/23/2024 Orders Only [facility] [address] [place] [address] Office dg [address] [place] [address] Chalino Chapa MD 04/18/2024 9:45 AM COARSE WIRE DRAWER Lab [facility] [address] [facility] [address] [place] [address] MDS (myelodysplastic syndrome) (HCC) 04/18/2024 10:15 AM COARSE WIRE DRAWER Office Visit [facility] [address] [place] [address] Office dg [address] [place] [address] Milla Armenta NP Myelodysplastic syndrome (HCC) (Primary Dx); MDS (myelodysplastic syndrome) (HCC) 04/17/2024 2:00 PM COARSE WIRE DRAWER Office Visit [facility] Primary Care at [address] [place] [address] Shadi Tan DO Primary osteoarthritis of right knee (Primary Dx) 04/04/2024 10:30 AM COARSE WIRE DRAWER Lab [address] [place] [address] MDS (myelodysplastic syndrome) (HCC) 04/04/2024 11:00 AM COARSE WIRE DRAWER Office Visit [facility] [address] [place] [address] [address] [place] [address] Chalino Chapa MD MDS (myelodysplastic syndrome) (HCC) (Primary Dx) 03/21/2024 10:30 AM COARSE WIRE DRAWER Lab [address] [place] [address] MDS (myelodysplastic syndrome) (HCC) 03/07/2024 9:45 AM COARSE WIRE DRAWER Lab [address] [place] [address] MDS (myelodysplastic syndrome) (HCC) 03/07/2024 10:15 AM COARSE WIRE DRAWER Office Visit [facility] [address] [place] [address] Office [facility] [address] [place] [address] Milla Armenta NP MDS (myelodysplastic syndrome) (HCC) (Primary Dx) 03/06/2024 Telephone [facility] [address] [place] [address] Office [facility] [address] [place] [address] Clau Cabral CLT 02/22/2024 8:10 AM COARSE WIRE DRAWER - 02/22/2024 11:59 PM COARSE WIRE DRAWER Hospital Encounter [address] Discharge Disposition: Discharge to home or self care 02/22/2024 8:15 AM COARSE WIRE DRAWER Lab [facility] [address] [facility] [address] [place] [address] MDS (myelodysplastic syndrome) (HCC) 02/22/2024 8:45 AM COARSE WIRE DRAWER Office Visit [facility] [address] [facility] Medical Office Bldg [address] [place] [address] Chalino Chapa MD MDS (myelodysplastic syndrome) (HCC) (Primary Dx) from Last 3 Months Allergies Active Allergy [...] 10 mg tabletIndicatio ns:MDS (myelodysplasti c syndrome) ([facility]) Take 1 tablet (10 mg total) by mouth every 6 (six) hours as needed for nausea or vomiting 120 tablet 3 4 Active acyclovir (ZOVIRAX) 400 mg tabletIndicatio ns:MDS (myelodysplasti c syndrome) (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) Osteoporosis 01/30/2018 Hoarseness 08/26/2014 Overview (07/08/2016): Hoarseness [...] 10/06/2021 12/07/2022 Fracture of humerus 10/05/2021 12/08/19 23 Closed fracture of distal end of humerus 09/29/2021 12/07/2022 Constipation 06/03/2021 12/07/2022 COVID-19 01/21/2020 12/07/2022 Pneumonia 01/21/2020 12/07/2022 Tear of medial meniscus of left knee, current 06/07/19 19 12/07/2022 Overview (06/06/2018): Added automatically from request for surgery [id number] Immunizations Immunization Administration Dates Next Due Influenza, [...] on file Legal Sex Female 1:43 AM COARSE WIRE DRAWER Gender Identity Not on file Sexual Orientation Not on file Last Filed Vital Signs Vital Sign Reading Time Taken Comments Blood Pressure 120/71 05/17/2024 3:20 PM COARSE WIRE DRAWER Pulse 88 05/17/2024 3:20 PM COARSE WIRE DRAWER Temperature 36.7 C (98 F) 05/17/2024 3:20 PM COARSE WIRE DRAWER Respiratory Rate 16 05/17/2024 3:20 PM COARSE WIRE DRAWER Oxygen Saturation 100% 05/17/2024 3:20 PM COARSE WIRE DRAWER Inhaled Oxygen Concentration - - Weight 64.7 kg (142 lb 9.6 oz) 05/16/2024 10:44 AM COARSE WIRE DRAWER Height 152.4 cm (5') 04/29/2024 8:59 AM COARSE WIRE DRAWER Body Mass Index 27.85 04/29/2024 8:59 AM COARSE WIRE DRAWER Plan of Treatment Upcoming Encounters Date Type Department Care Team (Late st Contact Info) Description 05/27/2024 9:30 AM COARSE WIRE DRAWER Office Visit [facility] [address] [facility] Medical Office Bl [address] [place] [phone] Chalino Chapa MD [address] [place] [address] MDS (myelodysplastic syndrome) (HCC) (Primary Dx); Anemia, unspecified type Medical Devices Implanted Type Area Political Science Instructor Device Identifier Shelf Expiration Date Model / Serial / Lot [employer] Powerport Mri Airguard 8fr 1 Lumen Attachable Catheter Latex Free [id number] - [id number] Implanted:Qty: 1 on 11/20/2023 by Shade Red MD at [facility] Right: Chest [employer] 09/30/2024 [id number] / / [id number] Procedures Procedure Name Priority Date/Time Associated Diagnosis Comments IMMATURE PLATELET FRACTION STAT 05/17/2024 1:20 PM COARSE WIRE DRAWER MDS (myelodysplastic syndrome) (HCC) DIFFERENTIAL AUTO STAT 05/17/2024 1:2 0 PM COARSE WIRE DRAWER MDS (myelodysplastic syndrome) (HCC) CBC WITH AUTO DIFFERENTIAL STAT 05/17/2024 1:20 PM COARSE WIRE DRAWER MDS (myelodysplastic syndrome) (HCC) PREPARE RBC Routine 05/16/2024 2:12 PM COARSE WIRE DRAWER MDS (myelodysplastic syndrome) (HCC) CROSSMATCH Routine 05/16/2024 10:45 AM COARSE WIRE DRAWER MDS (myelodysplastic syndrome) (HCC) ANTIBODY SCREEN Routine 05/16/2024 10:45 AM COARSE WIRE DRAWER MDS (myelodysplastic syndrome) (HCC) ABO/RH Routine 05/16/2024 10:45 AM COARSE WIRE DRAWER MDS (myelodysplastic syndrome) (HCC) TYPE AND SCREEN Routine 05/16/2024 10:45 AM COARSE WIRE DRAWER MDS (myelodysplastic syndrome) (HCC) MANUAL DIFFERENTIAL Routine 05/16/2024 1 0:45 AM COARSE WIRE DRAWER MDS (myelodysplastic syndrome) (HCC) CBC WITH AUTO DIFFERENTIAL Routine 05/16/2024 10:45 AM COARSE WIRE DRAWER MDS (myelodysplastic syndrome) (HCC) TRANSFUSE RED BLOOD CELLS Timed 05/10/2024 11:18 AM COARSE WIRE DRAWER MDS (myelodysplastic syndrome) (HCC) Anemia, unspecified type PREPARE RBC Routine 05/10/2024 11:07 AM COARSE WIRE DRAWER PREPARE RBC Routine 05/10/2024 11:07 AM COARSE WIRE DRAWER MDS (myelodysplastic syndrome) (HCC) Anemia, unspecified type CROSSMATCH Routine 05/10/2024 10:00 AM COARSE WIRE DRAWER MDS (myelodysplastic syndrome) (HCC) Anemia, unspecified type ANTIBODY SCREEN Routine 05/10/2024 10:00 AM COARSE WIRE DRAWER MDS (myelodysplastic syndrome) (HCC) Anemia, unspecified type ABO/RH Routine 05/10/2024 10:00 AM COARSE WIRE DRAWER MDS (myelodysplastic syndrome) (HCC) Anemia, unspecified type TYPE AND SCREEN Routine 05/10/2024 10:00 AM COARSE WIRE DRAWER MDS (myelodysplastic syndrome) (HCC) Anemia, unspecified type DIFFERENTIAL AUTO Routine 05/10/2024 10: 00 AM COARSE WIRE DRAWER MDS (myelodysplastic syndrome) (HCC) CBC WITH AUTO DIFFERENTIAL Routine 05/10/2024 10:00 AM COARSE WIRE DRAWER MDS (myelodysplastic syndrome) (HCC) EGFR STAT 04/29/2024 8:50 AM COARSE WIRE DRAWER MDS (myelodysplastic syndrome) (HCC) DIFFERENTIAL AUTO STAT 04/29/2024 8:5 0 AM COARSE WIRE DRAWER MDS (myelodysplastic syndrome) (HCC) CBC WITH AUTO DIFFERENTIAL STAT 04/29/2024 8:50 AM COARSE WIRE DRAWER MDS (myelodysplastic syndrome) (HCC) COMPREHENSIVE METABOLIC PANEL STAT 04/29/2024 8:50 AM COARSE WIRE DRAWER MDS (myelodysplastic syndrome) (HCC) MANUAL DIFFERENTIAL Routine 04/18/2024 1 0:00 AM COARSE WIRE DRAWER MDS (myelodysplastic syndrome) (HCC) EGFR Routine 04/18/2024 10:00 AM COARSE WIRE DRAWER MDS (myelodysplastic syndrome) (HCC) CBC WITH AUTO DIFFERENTIAL Routine 04/18/2024 10:00 AM COARSE WIRE DRAWER MDS (myelodysplastic syndrome) (HCC) COMPREHENSIVE METABOLIC PANEL Routine 04/18/2024 10:00 AM COARSE WIRE DRAWER MDS (myelodysplastic syndrome) (HCC) WI ARTHROCENTESIS ASPIR&/INJ MAJOR JT/BURSA W/US Routine 04/17/2024 2:00 PM COARSE WIRE DRAWER Primary osteoarthritis of right knee EGFR Routine 04/04/2024 10:35 AM COARSE WIRE DRAWER MDS (myelodysplastic syndrome) (HCC) DIFFERENTIAL AUTO Routine 04/04/2024 10: 35 AM COARSE WIRE DRAWER MDS (myelodysplastic syndrome) (HCC) COMPREHENSIVE METABOLIC PANEL Routine 04/04/2024 10:35 AM COARSE WIRE DRAWER MDS (myelodysplastic syndrome) (HCC) CBC WITH AUTO DIFFERENTIAL Routine 04/04/2024 10:35 AM COARSE WIRE DRAWER MDS (myelodysplastic syndrome) (HCC) DIFFERENTIAL AUTO Routine 03/21/2024 10: 40 AM COARSE WIRE DRAWER MDS (myelodysplastic syndrome) (HCC) CBC WITH AUTO DIFFERENTIAL Routine 03/21/2024 10:40 AM COARSE WIRE DRAWER MDS (myelodysplastic syndrome) (HCC) EGFR Routine 03/07/2024 9:45 AM COARSE WIRE DRAWER MDS (myelodysplastic syndrome) (HCC) COMPREHENSIVE METABOLIC PANEL Routine 03/07/2024 9:45 AM COARSE WIRE DRAWER MDS (myelodysplastic syndrome) (HCC) DIFFERENTIAL AUTO Routine 03/07/2024 8:4 5 AM COARSE WIRE DRAWER MDS (myelodysplastic syndrome) (HCC) CBC WITH AUTO DIFFERENTIAL Routine 03/07/2024 8:45 AM COARSE WIRE DRAWER MDS (myelodysplastic syndrome) (HCC) EGFR Routine 02/22/2024 8:10 AM COARSE WIRE DRAWER TSH Routine 02/22/2024 8:10 AM COARSE WIRE DRAWER COMPREHENSIVE METABOLIC PANEL Routine 02/22/2024 8:10 AM COARSE WIRE DRAWER EGFR Routine 02/22/2024 8:10 AM COARSE WIRE DRAWER MDS (myelodysplastic syndrome) (HCC) DIFFERENTIAL AUTO Routine 02/22/2024 8:1 0 AM COARSE WIRE DRAWER MDS (myelodysplastic syndrome) (HCC) COMPREHENSIVE METABOLIC PANEL Routine 02/22/2024 8:10 AM COARSE WIRE DRAWER MDS (myelodysplastic syndrome) (HCC) CBC WITH AUTO DIFFERENTIAL Routine 02/22/2024 8:10 AM COARSE WIRE DRAWER MDS (myelodysplastic syndrome) (HCC) TRANSFUSE RED BLOOD CELLS Timed MDS (myelodysplastic syndrome) (HCC) from Last 3 Months Results * Immature platelet fraction (05/17/2024 1:20 PM COARSE WIRE DRAWER) IPF 9.7 1.6 - 10.1 % Comment:Testing performed by : [facility], [facility], [place], [address] Blood 05/17/2024 1:20 PM COARSE WIRE DRAWER 05/17/2024 1:36 PM COARSE WIRE DRAWER us Milla Armenta NP LAB BLOOD ORDERABLES Final Result [facility] ([place]) [address] [facility] Department [place] [address] * (ABNORMAL) Differential, auto (05/17/2024 1:20 PM COARSE WIRE DRAWER) Neutrophil abs 0.0(L) 1.5 - 6.5 K/cumm Comment:Testing performed by : [place], [address] Imm gran abs 0.0 0.0 - 0.1 K/cumm [facility] ([place]) Comment:Testing performed by : [facility], [place], [address] Lymphocyte abs 0.8 0.8 - 3.3 K/cumm [facility] ([place]) Comment:Testing performed by : [facility], [facility], [place], [address] Monocyte abs 0.0(L) 0.2 - 0.8 K/cumm [facility] ([place]) Comment:Testing performed by : [facility], [place], [address] Eosinophil abs 0.0 0.0 - 0.5 K/cumm [facility] ([place]) Comment:Testing performed by : [facility], [place], [address] Basophil abs 0.0 0.0 - 0.1 K/cumm [facility] ([place]) Comment:Testing performed by : [place], [address] Neutrophil pct 3.7 % [facility] ([place]) Comment: Interpretive Data Percent cell count reference ranges are not reported, since discordance with absolute values may lead to misinterpretation of CBC data. Current Interpretive Data was last revised on 2017. Testing performed by: [place], [address] Imm gran pct 0.0 % [facility] ([place]) Comment: Interpretive Data Percent cell count reference ranges are not reported, since discordance with absolute values may lead to misinterpretation of CBC data. Current Interpretive Data was last revised on 2017. Testing performed by: [facility], [place], [address] Lymphocyte pct 96.3 % [facility] ([place]) Comment: Interpretive Data Percent cell count reference ranges are not reported, since discordance with absolute values may lead to misinterpretation of CBC data. Current Interpretive Data was last revised on 2017. Testing performed by: [facility], [place], [address] Monocyte pct 0.0 % [facility] ([place]) Comment: Interpretive Data Percent cell count reference ranges are not reported, since discordance with absolute values may lead to misinterpretation of CBC data. Current Interpretive Data was last revised on 2017. Testing performed by: [facility], [place], [address] Eosinophil pct 0.0 % [facility] ([place]) Comment: Interpretive Data Percent cell count reference ranges are not reported, since discordance with absolute values may lead to misinterpretation of CBC data. Current Interpretive Data was last revised on 2017. Testing performed by: [place], [address] Basophil pct 0.0 % [facility] ([place]) Comment: Interpretive Data Percent cell count reference ranges are not reported, since discordance with absolute values may lead to misinterpretation of CBC data. Current Interpretive Data was last revised on 2017. Testing performed by: [place], [address] Blood 05/17/2024 1:20 PM COARSE WIRE DRAWER 05/17/2024 1:36 PM COARSE WIRE DRAWER us Milla Armenta NEUROSURGERY RESEARCH DIRECTOR LAB BLOOD ORDERABLES Final Result [facility] ([place]) [address] [place] [address] Department [place] [address] * (ABNORMAL) CBC with auto differential (05/17/2024 1:20 PM COARSE WIRE DRAWER) WBC 0.8(C) 3.8 - 9.9 K/cumm Comment: Critical result called to and read back by KAREN ST on 05 17 2024 at 1349 to Stacey Samson. Testing performed by: [facility], [place], [place], Hgb 7.0(L) 11.9 - 15.5 g/dL [facility] ([place]) Comment:Testing performed by : [facility], [place], [place], Hct 20.4(L) 35.6 - 45.5 % [facility] ([place]) Comment:Testing performed by : [place], [place], Plt 13(C) 150 - 400 K/cumm [facility] ([place]) Comment: Critical result called to and read back by KAREN ST on 05 17 2024 at 1349 to Stacey Samson. Testing performed by: [place], MPV 10.8 9.1 - 12.3 fL [facility] ([place]) Comment:Testing performed by : [place], RBC 1.97(L) 3.90 - 5.20 M/cumm [facility] ([place]) Comment:Testing performed by : [place], MCV 103.6(H) 81.3 - 96.4 fL [facility] ([place]) Comment:Testing performed by : [place], MCH 35.5(H) 27.1 - 33.3 pg [facility] ([place]) Comment:Testing performed by : [place], MCHC 34.3 32.3 - 35.7 g/dL [facility] ([place]) Comment:Testing performed by : [place], RDW CV 13.9 11.1 - 14.9 % [facility] ([place]) Comment:Testing performed by : [place], R[place] SD 51.5(H) 35.7 - 48.1 fL [facility] ([place]) Comment:Testing performed by : [place], NRBC abs 0.00 0.00 - 0.01 K/cumm [facility] ([place]) Comment:Testing performed by : [place], [address] Blood 05/17/2024 1:20 PM COARSE WIRE DRAWER 05/17/2024 1:36 PM COARSE WIRE DRAWER us Milla Armenta NEUROSURGERY RESEARCH DIRECTOR LAB BLOOD ORDERABLES Final Result Performing Organization Address City/[facility]/ZIP Co de Phone Number [facility] ([place]) [address] [facility] Department [place] [address] * Prepare RBC: 1 Units (05/16/2024 2:12 PM COARSE WIRE DRAWER) Units requested 1 Comment:Testing performed by : [place], [address] Units requested Ready [facility] ([place]) Comment:Testing performed by : [place], [address] Unit Number [id number] Product code [id number] [facility] ([place]) Blood Expiration Date [id number] [facility] ([place]) Product Blood Type (for scanning) 5100 [facility] ([place]) Product Blood Type OPOS [facility] ([place]) Dispense Status DISPENSED [facility] ([place]) Blood 05/16/2024 2:12 PM COARSE WIRE DRAWER 05/16/2024 2:12 PM COARSE WIRE DRAWER us Chalino Chapa MD BLOOD BANK PRODUCT ORDERA BLES Final Result [facility] ([place]) [address] [facility] Department [place] [address] * (ABNORMAL) CBC with auto differential (05/16/2024 10:45 AM COARSE WIRE DRAWER) WBC 0.8(C) 3.8 - 9.9 K/cumm Comment: Critical result called to and read back by YADI JOHNSON RN on 05 16 2024 at 1151 to Mariela Desir. Testing performed by: [place], Hgb 7.5(L) 11.9 - 15.5 g/dL [facility] ([place]) Comment:Testing performed by : [facility], [place], [address] Hct 21.9(L) 35.6 - 45.5 % [facility] ([place]) Comment:Testing performed by : [facility], [place], Plt 13(C) 150 - 400 K/cumm [facility] ([place]) Comment: Critical result called to and read back by YADI JOHNSON RN on 05 16 2024 at 1151 to Mariela Desir. Testing performed by: [place], MPV 13.5(H) 9.1 - 12.3 fL [facility] ([place]) Comment:Testing performed by : [facility], [place], RBC 2.07(L) 3.90 - 5.20 M/cumm [facility] ([place]) Comment:Testing performed by : [place], MCV 105.8(H) 81.3 - 96.4 fL [facility] ([place]) Comment:Testing performed by : [place], MCH 36.2(H) 27.1 - 33.3 pg [facility] ([place]) Comment:Testing performed by : [place] MCHC 34.2 32.3 - 35.7 g/dL [facility] ([place]) Comment:Testing performed by : [place], R[place] CV 13.7 11.1 - 14.9 % [facility] ([place]) Comment:Testing performed by : [place], RDW SD 51.8(H) 35.7 - 48.1 fL [facility] ([place]) Comment:Testing performed by : [place], NRBC abs 0.00 0.00 - 0.01 K/cumm [facility] ([place]) Comment:Testing performed by : [place], [address] Blood 05/16/2024 10:4 5 AM COARSE WIRE DRAWER 05/16/2024 10:48 AM COARSE WIRE DRAWER Chalino Chapa MD LAB BLOOD ORDERABLES Aylin l Result [facility] ([place]) [address] [place] [address] Department [place] [address] * ABO/Rh (05/16/2024 10:45 AM COARSE WIRE DRAWER) ABO/Rh O Positive Comment:Testing performed by : [place], [address] Blood 05/16/2024 10:4 5 AM COARSE WIRE DRAWER 05/16/2024 12:56 PM COARSE WIRE DRAWER Narrative [facility] ([place]) - 05/16/2024 1:39 PM COARSE WIRE DRAWER witness [id number] Has the patient had Daratumumab or Isatuximab in the past 6 months?->Unknown us Chalino Chapa MD LAB BLOOD BANK TEST ORDER LAITH Final Result Performing Organization Address [facility]/ZIP Co de Phone Number SABRA ROGERS ([place]) [address] [place] [address] Department [place] [employer] [place] [address] * (ABNORMAL) Manual Differential (05/16/2024 10:45 AM COARSE WIRE DRAWER) Differential Manual Comment:Testing performed by : [facility], [place], [address] Cells Counted 100 [facility] ([place]) Comment:Testing performed by : [place], [address] Neutrophil abs 0.0(L) 1.5 - 6.5 K/cumm [facility] ([place]) Comment:Testing performed by : [place], [address] Imm gran abs 0.0 0.0 - 0.1 K/cumm [facility] ([place]) Comment:Testing performed by : [place], [address] Lymphocyte abs 0.8 0.8 - 3.3 K/cumm [facility] ([place]) Comment:Testing performed by : [facility], [facility], [place], [address] Monocyte abs 0.0(L) 0.2 - 0.8 K/cumm [facility] ([place]) Comment:Testing performed by : [facility], [facility], [place], [address] Eosinophil abs 0.0 0.0 - 0.5 K/cumm [facility] ([place]) Comment:Testing performed by : [facility], [facility], [place], [address] Neutrophil pct 3.0 % [facility] ([place]) Comment: Interpretive Data Percent cell count reference ranges are not reported, since discordance with absolute values may lead to misinterpretation of CBC data. Current Interpretive Data was last revised on 2017. Testing performed by: [facility], [facility], [place], [address] Lymphocyte pct 62.0 % [facility] ([place]) Comment: Interpretive Data Percent cell count reference ranges are not reported, since discordance with absolute values may lead to misinterpretation of CBC data. Current Interpretive Data was last revised on 2017. Testing performed by: [facility], [facility], [place], [address] Eosinophil pct 1.0 % [facility] ([place]) Comment: Interpretive Data Percent cell count reference ranges are not reported, since discordance with absolute values may lead to misinterpretation of CBC data. Current Interpretive Data was last revised on 2017. Testing performed by: [facility], [facility], [place], [address] Variant lymph pct 34.0(H) 0.0 - 0.0 % [facility] ([place]) Comment:Testing performed by : [facility], [place], [address] RBC morphology Consistent with RBC Indicies [facility] ([place]) Comment:Testing performed by : [facility], [facility], [place], [address] Anisocytosis Slight(A) [facility] ([place]) Comment:Testing performed by : [facility], [facility], [place], [address] Platelet estimate Decreased(A) [facility] ([place]) Comment:Testing performed by : [facility], [place], [address] Blood 05/16/2024 10:4 5 AM COARSE WIRE DRAWER 05/16/2024 11:00 AM COARSE WIRE DRAWER Chalino Chapa MD LAB BLOOD ORDERABLES Aylin l Result SABRA [facility] ([place]) [address] [facility] Department [place] [address] * Crossmatch (05/16/2024 10:45 AM COARSE WIRE DRAWER) Crossmatch Compatible SABRA Silva ([place]) Unit number for crossmatch [id number] SABRA [facility] ([place]) Blood 05/16/2024 10:4 5 AM COARSE WIRE DRAWER 05/16/2024 12:56 PM COARSE WIRE DRAWER Chalino Chapa MD LAB BLOOD BANK TEST ORDER LAITH Final Result Performing Organization Address City/[facility]/ZIP Co de Phone Number SABRA [facility] ([place]) 1 [facility] [place] [address] * Antibody screen (05/16/2024 10:45 AM COARSE WIRE DRAWER) Rivera, indirect, Gel Interpretation Negative ABSC Comment:Testing performed by : [facility], [facility], [place], [address] Blood 05/16/2024 10:4 5 AM COARSE WIRE DRAWER 05/16/2024 12:56 PM COARSE WIRE DRAWER Narrative [facility]YPAOLA [facility] ([place]) - 05/16/2024 1:40 PM COARSE WIRE DRAWER Has the patient had Daratumumab or Isatuximab in the past 6 months?->Unknown us Chalino Chapa MD LAB BLOOD BANK TEST ORDER LAITH Final Result SABRA [facility] ([place]) [address] [facility] Department [place] [address] * Transfuse RBC (05/10/2024 1:03 PM COARSE WIRE DRAWER) Blood us Chalino Chapa MD BLOOD TRANSFUSION ORDERAB LES Final Result * Prepare RBC (05/10/2024 11:07 AM COARSE WIRE DRAWER) Unit Number [id number] Product code [id number] SABRA ROGERS ([place]) Blood Expiration Date [facility] ([place]) Product Blood Type (for scanning) 5100 [facility] ([place]) Product Blood Type OPOS [facility] ([place]) Dispense Status DISPENSED [facility] ([place]) us Michael Terry MD BLOOD BANK PRODUCT ORDERABLES Final Result Performing Organization Address [facility]/ZIP Co de Phone Number SABRA ROGERS ([place]) [address] [place] [address] Department [place] [employer] [place] [address] * Prepare RBC: 1 Units (05/10/2024 11:07 AM COARSE WIRE DRAWER) Units requested 1 Comment:Testing performed by : [place], [address] Units requested Ready AMY WOLF ROGERS ([place]) Comment:Testing performed by : [place], [address] Blood 05/10/2024 11:0 7 AM COARSE WIRE DRAWER 05/10/2024 11:07 AM COARSE WIRE DRAWER Narrative SABRA ROGERS ([place]) - 05/10/2024 11:07 AM COARSE WIRE DRAWER Are special requirements needed? (All products are leukoreduced and CMV- safe)->No us Chalino Chapa MD BLOOD BANK PRODUCT ORDERA BLES Final Result SABRA ROGERS ([place]) [address] [place] [address] Department [place] [place] [address] * (ABNORMAL) Differential, auto (05/10/2024 10:00 AM COARSE WIRE DRAWER) Neutrophil abs 0.4(L) 1.5 - 6.5 K/cumm Comment:Testing performed by : [facility], [facility], [place], [address] Imm gran abs 0.0 0.0 - 0.1 K/cumm [facility] ([place]) Comment:Testing performed by : [facility], [facility], [place], [address] Lymphocyte abs 0.7(L) 0.8 - 3.3 K/cumm [facility] ([place]) Comment:Testing performed by : [facility], [facility], [place], [address] Monocyte abs 0.0(L) 0.2 - 0.8 K/cumm [facility] ([place]) Comment:Testing performed by : [facility], [facility], [place], [address] Eosinophil abs 0.1 0.0 - 0.5 K/cumm [facility] ([place]) Comment:Testing performed by : [place], [address] Basophil abs 0.0 0.0 - 0.1 K/cumm [facility] ([place]) Comment:Testing performed by : [place], [address] Neutrophil pct 35.3 % [facility] ([place]) Comment: Interpretive Data Percent cell count reference ranges are not reported, since discordance with absolute values may lead to misinterpretation of CBC data. Current Interpretive Data was last revised on 2017. Testing performed by: [place], [address] Imm gran pct 0.9 % [facility] ([place]) Comment: Interpretive Data Percent cell count reference ranges are not reported, since discordance with absolute values may lead to misinterpretation of CBC data. Current Interpretive Data was last revised on 2017. Testing performed by: [place], [address] Lymphocyte pct 58.6 % [facility] ([place]) Comment: Interpretive Data Percent cell count reference ranges are not reported, since discordance with absolute values may lead to misinterpretation of CBC data. Current Interpretive Data was last revised on 2017. Testing performed by: [place], [address] Monocyte pct 0.9 % [facility] ([place]) Comment: Interpretive Data Percent cell count reference ranges are not reported, since discordance with absolute values may lead to misinterpretation of CBC data. Current Interpretive Data was last revised on 2017. Testing performed by: [facility], [place], [address] Eosinophil pct 4.3 % EMELINA ROGERS ([place]) Comment: Interpretive Data Percent cell count reference ranges are not reported, since discordance with absolute values may lead to misinterpretation of CBC data. Current Interpretive Data was last revised on 2017. Testing performed by: [facility], [place], [address] Basophil pct 0.0 % SABRA ROGERS ([place]) Comment: Interpretive Data Percent cell count reference ranges are not reported, since discordance with absolute values may lead to misinterpretation of CBC data. Current Interpretive Data was last revised on 2017. Testing performed by: [facility], [place], [address] Blood 05/10/2024 10:0 0 AM COARSE WIRE DRAWER 05/10/2024 10:01 AM COARSE WIRE DRAWER us Chalino Chapa MD LAB BLOOD ORDERABLES Aylin freedman Result SABRA ROGERS ([place]) [address] [facility] Department [place] [address] * (ABNORMAL) CBC with auto differential (05/10/2024 10:00 AM COARSE WIRE DRAWER) WBC 1.2(L) 3.8 - 9.9 K/cumm Comment:Testing performed by : [facility], [place], [address] Hgb 7.0(L) 11.9 - 15.5 g/dL SABRA ROGERS ([place]) Comment:Testing performed by : [facility], [place], [address] Hct 20.6(L) 35.6 - 45.5 % SABRA ROGERS ([place]) Comment:Testing performed by : [facility], [place], [address] Plt 65(L) 150 - 400 K/cumm SABRA ROGERS ([place]) Comment:Testing performed by : [place], [address] MPV 11.1 9.1 - 12.3 fL [facility] ([place]) Comment:Testing performed by : [place], [address] RBC 1.91(L) 3.90 - 5.20 M/cumm [facility] ([place]) Comment:Testing performed by : [place], MCV 107.9(H) 81.3 - 96.4 fL [facility] ([place]) Comment:Testing performed by : [place], [address] MCH 36.6(H) 27.1 - 33.3 pg [facility] ([place]) Comment:Testing performed by : [place], [address] MCHC 34.0 32.3 - 35.7 g/dL [facility] ([place]) Comment:Testing performed by : [place], [address] RDW CV 14.4 11.1 - 14.9 % [facility] ([place]) Comment:Testing performed by : [place], [address] RDW SD 56.9(H) 35.7 - 48.1 fL [facility] ([place]) Comment:Testing performed by : [place], [address] NRBC abs Not Measured 0.00 - 0.01 K/cumm [facility] ([place]) Comment:Testing performed by : [place], [address] Blood 05/10/2024 10:0 0 AM COARSE WIRE DRAWER 05/10/2024 10:01 AM COARSE WIRE DRAWER us Chalino Chapa MD LAB BLOOD ORDERABLES Aylin freedman Result [facility] ([place]) [address] [place] [address] Department [place] [address] * ABO/Rh (05/10/2024 10:00 AM COARSE WIRE DRAWER) ABO/Rh O Positive Comment:Testing performed by : [facility], [place], [address] Blood 05/10/2024 10:0 0 AM COARSE WIRE DRAWER 05/10/2024 10:18 AM COARSE WIRE DRAWER Narrative [facility] ([place]) - 05/10/2024 10:54 AM COARSE WIRE DRAWER drawn by Ynes Jensen, witnessed by Karen Donaldson Has the patient had Daratumumab or Isatuximab in the past 6 months?->Unknown Chalino Chapa MD LAB BLOOD BANK TEST ORDER LAITH Final Result [facility] ([place]) [address] [place] [address] Department [place] [address] * Crossmatch (05/10/2024 10:00 AM COARSE WIRE DRAWER) Pathologist [facility] Crossmatch Compatible SABRA Silva ([place]) Unit number for crossmatch [id number] [facility] ([place]) Blood 05/10/2024 10:0 0 AM COARSE WIRE DRAWER 05/10/2024 10:18 AM COARSE WIRE DRAWER us Michael Terry MD LAB BLOOD BANK TEST ORDERABLE S Final Result [facility] ([place]) [address] [place] [address] Department [place] [address] * Antibody screen (05/10/2024 10:00 AM COARSE WIRE DRAWER) Rivera, indirect, Gel Interpretation Negative ABSC Comment:Testing performed by : [facility], [place], [address] Blood 05/10/2024 10:0 0 AM COARSE WIRE DRAWER 05/10/2024 10:18 AM COARSE WIRE DRAWER Narrative [facility] ([place]) - 05/10/2024 10:54 AM COARSE WIRE DRAWER Has the patient had Daratumumab or Isatuximab in the past 6 months?->Unknown us Chalino Chapa MD LAB BLOOD BANK TEST ORDER LAITH Final Result Performing Organization Address City/[facility]/ZIP Co de Phone Number SABRA ROGERS ([place]) [address] [facility] Department [place] [address] * eGFR (04/29/2024 8:50 AM COARSE WIRE DRAWER) eGFR 90 >=60 mL/min/1. 73 m2 Comment: [...] was last reviewed 2021. Testing performed by: [facility], [facility], [place], [address] Blood 04/29/2024 8:50 AM COARSE WIRE DRAWER 04/29/2024 9:03 AM COARSE WIRE DRAWER us Zoraida Villegas NP LAB BLOOD ORDERABLES Final Result Performing Organization Address City/[facility]/ZIP Co de Phone Number SABRA ROGERS ([place]) [address] [facility] Department [place] [address] * (ABNORMAL) Differential, auto (04/29/2024 8:50 AM COARSE WIRE DRAWER) Neutrophil abs 1.2(L) 1.5 - 6.5 K/cumm Comment:Testing performed by : [facility] [place], [address] [facility] , Medical Office [address], [place] [address] Imm gran abs 0.0 0.0 - 0.1 K/cumm [facility] ([place]) Comment:Testing performed by : [facility] [address], Medical Office [facility] [address], [place] [address] Lymphocyte abs 1.0 0.8 - 3.3 K/cumm [facility] ([place]) Comment:Testing performed by : [facility] [address], Medical Office [facility] [address], [place] [address] Monocyte abs 0.3 0.2 - 0.8 K/cumm [facility] ([place]) Comment:Testing performed by : [facility] [address], Medical Office [facility] B [facility] [address], [place] [address] Eosinophil abs 0.1 0.0 - 0.5 K/cumm [facility] ([place]) Comment:Testing performed by : [facility] [address], Medical Office [facility] [address], [place] [address] Basophil abs 0.0 0.0 - 0.1 K/cumm [facility] ([place]) Comment:Testing performed by : [facility] [address], Medical Office [facility] [address], [place] [address] Neutrophil pct 44.9 % [facility] ([place]) Comment: Interpretive Data Percent cell count reference ranges are not reported, since discordance with absolute values may lead to misinterpretation of CBC data. Current Interpretive Data was last revised on 2022. Testing performed by: [facility] [address], Medical Office [facility] [address], [place] [address] Imm gran pct 0.7 % [facility] ([place]) Comment: Interpretive Data Percent cell count reference ranges are not reported, since discordance with absolute values may lead to misinterpretation of CBC data. Current Interpretive Data was last revised on 2022. Testing performed by: [facility] [address], Medical Office [facility] [address], [place] [address] Lymphocyte pct 38.4 % [facility] ([place]) Comment: Interpretive Data Percent cell count reference ranges are not reported, since discordance with absolute values may lead to misinterpretation of CBC data. Current Interpretive Data was last revised on 2022. Testing performed by: [facility] [address], Medical Office [address], [place] [address] Monocyte pct 11.9 % SABRA ROGERS ([place]) Comment: Interpretive Data Percent cell count reference ranges are not reported, since discordance with absolute values may lead to misinterpretation of CBC data. Current Interpretive Data was last revised on 2022. Testing performed by: [facility] [address], Medical Office [facility] [address], [place] [address] Eosinophil pct 3.0 % EMELINA ROGERS ([place]) Comment: Interpretive Data Percent cell count reference ranges are not reported, since discordance with absolute values may lead to misinterpretation of CBC data. Current Interpretive Data was last revised on 2022. Testing performed by: [facility] [address], Medical Office [facility] [address], [place] [address] Basophil pct 1.1 % ASBRA ROGERS ([place]) Comment: Interpretive Data Percent cell count reference ranges are not reported, since discordance with absolute values may lead to misinterpretation of CBC data. Current Interpretive Data was last revised on 2022. Testing performed by: [facility] [address], Medical Office [facility] B [facility] [address], [place] [address] Blood 04/29/2024 8:50 AM COARSE WIRE DRAWER 04/29/2024 8:53 AM COARSE WIRE DRAWER Zoraida Villegas NEUROSURGERY RESEARCH DIRECTOR LAB BLOOD ORDERABLES Final Result SABRA ROGERS ([place]) [address] [facility] Department of Laboratories [place], [place] [address] * (ABNORMAL) CBC with auto differential (04/29/2024 8:50 AM COARSE WIRE DRAWER) WBC 2.7(L) 3.8 - 9.9 K/cumm Comment:Testing performed by : [facility] [address], Medical Office [address], [place] [address] Hgb 10.2(L) 11.9 - 15.5 g/dL [facility] ([place]) Comment:Testing performed by : [facility] [address], Medical Office [address], [place] [address] Hct 31.2(L) 35.6 - 45.5 % [facility] ([place]) Comment:Testing performed by : [facility] [address], Medical Office [address], [place] [address] Plt 163 150 - 400 K/cumm [facility] ([place]) Comment:Testing performed by : [facility] [address], Medical Office [facility] [address], [place] [address] MPV 10.5 9.1 - 12.3 fL [facility] ([place]) Comment:Testing performed by : [facility] [address], Medical Office [facility] [address], [place] [address] RBC 2.87(L) 3.90 - 5.20 M/cumm [facility] ([place]) Comment:Testing performed by : [facility] [address], Medical Office [facility] [address], [place] [address] MCV 108.7(H) 81.3 - 96.4 fL [facility] ([place]) Comment:Testing performed by : [facility] [address], Medical Office [facility] [address], [place] [address] MCH 35.5(H) 27.1 - 33.3 pg [facility] ([place]) Comment:Testing performed by : [facility] [address], Medical Office [facility] [address], [place] [address] MCHC 32.7 32.3 - 35.7 g/dL [facility] ([place]) Comment:Testing performed by : [facility] [address], Medical Office [facility] [address], [place] [address] RDW CV 15.5(H) 11.1 - 14.9 % [facility] ([place]) Comment:Testing performed by : [facility] [address], Medical Office [address], [place] [address] RDW SD 62.1(H) 35.7 - 48.1 fL [facility] ([place]) Comment:Testing performed by : [facility] [address], Medical Office [address], [place] [address] NRBC abs Not Measured 0.00 - 0.01 K/cumm [facility] ([place]) Comment:Testing performed by : [facility] [place], [address], Medical Office [facility] B [facility] [address], [place] [address] Blood 04/29/2024 8:50 AM COARSE WIRE DRAWER 04/29/2024 8:53 AM COARSE WIRE DRAWER Zoraida Villegas NEUROSURGERY RESEARCH DIRECTOR LAB BLOOD ORDERABLES Final Result [facility] ([place]) [address] [facility] Department [place] [address] * (ABNORMAL) Comprehensive metabolic panel (04/29/2024 8:50 AM COARSE WIRE DRAWER) Sodium 141 135 - 145 mmol/L Comment:Testing performed by : [facility], [place], [address] Potassium, pl 4.0 3.3 - 4.9 mmol/L [facility] ([place]) Comment:Testing performed by : [facility], [place], [address] Chloride 102 97 - 110 mmol/L [facility] ([place]) Comment:Testing performed by : [facility], [place], [address] CO2 31 22 - 32 mmol/L [facility] ([place]) Comment:Testing performed by : [facility], [place], [address] Anion gap 7 2 - 15 mmol/L [facility] ([place]) Comment:Testing performed by : [facility], [place], [address] BUN 14 6 - 25 mg/dL [facility] ([place]) Comment:Testing performed by : [facility], [place], [address] Creatinine 0.57(L) 0.60 - 1.10 mg/dL [facility] ([place]) Comment:Testing performed by : [facility], [place], [address] Glucose 109 70 - 199 mg/dL CERNER [...] was last revised 2022. Testing performed by: [facility], [place], [address] Calcium 9.7 8.5 - 10.3 mg/dL [facility] ([place]) Comment:Testing performed by : [place], [address] Bilirubin, total 0.7 0.1 - 1.2 mg/dL [facility] ([place]) Comment:Testing performed by : [place], [address] Protein, pl 6.7 6.5 - 8.5 g/dL [facility] ([place]) Comment:Testing performed by : [facility], [place], [address] Albumin 4.5 3.5 - 5.0 g/dL [facility] ([place]) Comment:Testing performed by : [place], [address] Alk phos 121 40 - 130 Units/L [facility] ([place]) Comment:Testing performed by : [place], [address] ALT 61(H) 7 - 45 Units/L [facility] ([place]) Comment:Testing performed by : [facility], [place], [address] AST 28 10 - 45 Units/L [facility] ([place]) Comment:Testing performed by : [place], [address] Blood 04/29/2024 8:50 AM COARSE WIRE DRAWER 04/29/2024 9:03 AM COARSE WIRE DRAWER us Zoraida Villegas NEUROSURGERY RESEARCH DIRECTOR LAB BLOOD ORDERABLES Final Result [facility] ([place]) [address] [facility] Department [place] [address] * eGFR (04/18/2024 10:00 AM COARSE WIRE DRAWER) eGFR >90 >=60 mL/min/1. 73 m2 Comment: [...] was last reviewed 2021. Testing performed by: [facility], [facility], [place], [address] Blood 04/18/2024 10:0 0 AM COARSE WIRE DRAWER 04/18/2024 10:47 AM COARSE WIRE DRAWER us Chalino Chapa MD LAB BLOOD ORDERABLES Aylin l Result SABRA ROGERS ([place]) [address] [facility] Department [place] [address] * (ABNORMAL) CBC with auto differential (04/18/2024 10:00 AM COARSE WIRE DRAWER) WBC 3.7(L) 3.8 - 9.9 K/cumm Comment:Testing performed by : [facility] [address], Medical Office [address], [place] [address] Hgb 10.7(L) 11.9 - 15.5 g/dL SABRA ROGERS ([place]) Comment:Testing performed by : [facility] [address], Medical Office [facility] [address], [place] [address] Hct 32.8(L) 35.6 - 45.5 % [facility] ([place]) Comment:Testing performed by : [facility] [address], Medical Office [facility] [address], [place] [address] Plt 171 150 - 400 K/cumm [facility] ([place]) Comment:Testing performed by : [facility] [address], Medical Office [facility] [address], [place] [address] MPV 10.5 9.1 - 12.3 fL [facility] ([place]) Comment:Testing performed by : [facility] [address], Medical Office [facility] B [facility] [address], [place] [address] RBC 3.06(L) 3.90 - 5.20 M/cumm [facility] ([place]) Comment:Testing performed by : [facility] [address], Medical Office [facility] B [facility] [facility] [address], [place] [address] MCV 107.2(H) 81.3 - 96.4 fL [facility] ([place]) Comment:Testing performed by : [facility] [address], Medical Office [facility] B [facility] 132, [place] [address] MCH 35.0(H) 27.1 - 33.3 pg [facility] ([place]) Comment:Testing performed by : [facility] [address], Medical Office [facility] [address], [place] [address] MCHC 32.6 32.3 - 35.7 g/dL [facility] ([place]) Comment:Testing performed by : [facility] [address], Medical Office [facility] B [facility] [address], [place] [address] RDW CV 14.6 11.1 - 14.9 % [facility] ([place]) Comment:Testing performed by : [facility] [address], Medical Office [facility] [address], [place] [address] RDW SD 57.7(H) 35.7 - 48.1 fL [facility] ([place]) Comment:Testing performed by : [facility] Infusion [facility] [address], Medical Office [facility] [address], [place] [address] NRBC abs Not Measured 0.00 - 0.01 K/cumm [facility] ([place]) Comment:Testing performed by : [facility] [place], [address], Medical Office [address]ld[address], [place] [address] Blood 04/18/2024 10:0 0 AM COARSE WIRE DRAWER 04/18/2024 10:03 AM COARSE WIRE DRAWER us Chalino Chapa MD LAB BLOOD ORDERABLES Aylin l Result [facility] ([place]) [address] [facility] Department [place] [address] * (ABNORMAL) Manual Differential (04/18/2024 10:00 AM COARSE WIRE DRAWER) Differential Manual Comment:Testing performed by : [facility], [facility], [place], [address] Cells Counted 100 [facility] ([place]) Comment:Testing performed by : [facility], [place], [address] Neutrophil abs 2.1 1.5 - 6.5 K/cumm [facility] ([place]) Comment:Testing performed by : [facility], [place], [address] Imm gran abs 0.0 0.0 - 0.1 K/cumm [facility] ([place]) Comment:Testing performed by : [facility], [place], [address] Lymphocyte abs 1.6 0.8 - 3.3 K/cumm [facility] ([place]) Comment:Testing performed by : [facility], [place], [address] Monocyte abs 0.0(L) 0.2 - 0.8 K/cumm [facility] ([place]) Comment:Testing performed by : [place], [address] Neutrophil pct 55.0 % [facility] ([place]) Comment: Interpretive Data Percent cell count reference ranges are not reported, since discordance with absolute values may lead to misinterpretation of CBC data. Current Interpretive Data was last revised on 2017. Testing performed by: [place], [address] Lymphocyte pct 38.0 % [facility] ([place]) Comment: Interpretive Data Percent cell count reference ranges are not reported, since discordance with absolute values may lead to misinterpretation of CBC data. Current Interpretive Data was last revised on 2017. Testing performed by: [facility], [facility], [place], [address] Monocyte pct 1.0 % [facility] ([place]) Comment: Interpretive Data Percent cell count reference ranges are not reported, since discordance with absolute values may lead to misinterpretation of CBC data. Current Interpretive Data was last revised on 2017. Testing performed by: [facility], [place], [address] Band Neutrophil pct 1.0 0.0 - 5.0 % [facility] ([place]) Comment:Testing performed by : [facility], [place], [address] Promyelocyte pct 1.0(H) 0.0 - 0.0 % [facility] ([place]) Comment:Testing performed by : [facility], [place], [address] Variant lymph pct 4.0(H) 0.0 - 0.0 % [facility] ([place]) Comment:Testing performed by : [facility], [place], [address] Blood 04/18/2024 10:0 0 AM COARSE WIRE DRAWER 04/18/2024 10:47 AM COARSE WIRE DRAWER us Chalino Chapa MD LAB BLOOD ORDERABLES Aylin l Result [facility] ([place]) [address] [facility] Department [place] [address] * (ABNORMAL) Comprehensive metabolic panel (04/18/2024 10:00 AM COARSE WIRE DRAWER) Sodium 141 135 - 145 mmol/L Comment:Testing performed by : [facility], [place], [address] Potassium, pl 4.3 3.3 - 4.9 mmol/L [facility] ([place]) Comment:Testing performed by : [facility], [place], [address] Chloride 103 97 - 110 mmol/L [facility] ([place]) Comment:Testing performed by : [facility], [facility], [place], [address] CO2 31 22 - 32 mmol/L [facility] ([place]) Comment:Testing performed by : [facility], [facility], [place], [address] Anion gap 8 2 - 15 mmol/L [facility] ([place]) Comment:Testing performed by : [facility], [place], [address] BUN 15 6 - 25 mg/dL [facility] ([place]) Comment:Testing performed by : [facility], [facility], [place], [address] Creatinine 0.51(L) 0.60 - 1.10 mg/dL [facility] ([place]) Comment:Testing performed by : [facility], [place], [address] Glucose 141 70 - 199 mg/dL [facility] ([place]) [...] was last revised 2022. Testing performed by: [facility], [place], [address] Calcium 9.5 8.5 - 10.3 mg/dL [facility] ([place]) Comment:Testing performed by : [facility], [place], [address] Bilirubin, total 0.4 0.1 - 1.2 mg/dL [facility] ([place]) Comment:Testing performed by : [facility], [place], [address] Protein, pl 6.6 6.5 - 8.5 g/dL [facility] ([place]) Comment:Testing performed by : [facility], [place], [address] Albumin 4.2 3.5 - 5.0 g/dL [facility] ([place]) Comment:Testing performed by : [facility], [facility], [place], [address] Alk phos 118 40 - 130 Units/L [facility] ([place]) Comment:Testing performed by : [facility], [facility], [place], [address] ALT 88(H) 7 - 45 Units/L [facility] ([place]) Comment:Testing performed by : [facility], [facility], [place], [address] AST 35 10 - 45 Units/L [facility] ([place]) Comment:Testing performed by : [facility], [facility], [place], [address] Blood 04/18/2024 10:0 0 AM COARSE WIRE DRAWER 04/18/2024 10:47 AM COARSE WIRE DRAWER us Chalino Chapa MD LAB BLOOD ORDERABLES Aylin l Result [facility] ([place]) [address] [place] [address] Department [place] [address] * [place] ARTHROCENTESIS ASPIR&/INJ MAJOR JT/BURSA W/US (04/17/2024 2:00 PM COARSE WIRE DRAWER) Narrative Shadi Tan DO - 04/17/2024 2:00 PM COARSE WIRE DRAWER Shadi Tan DO 04/17/2024 2:55 PM Large [...] injection Patient name: Venessa Villar Performing physician: Shadi Tan DO, ALLIE BOTELLO Reason for procedure: Right osteoarthritis knee Patient [...] - Final * eGFR (04/04/2024 10:35 AM COARSE WIRE DRAWER) eGFR >90 >=60 mL/min/1. 73 m2 Comment: [...] was last reviewed 2021. Testing performed by: [facility], [facility], [place], [address] Blood 04/04/2024 10:3 5 AM COARSE WIRE DRAWER 04/04/2024 11:16 AM COARSE WIRE DRAWER Zoraida Sheldon Bakari NEUROSURGERY RESEARCH DIRECTOR LAB BLOOD ORDERABLES Final Result [facility] ([place]) [address] [facility] Department [place] [address] * Differential, auto (04/04/2024 10:35 AM COARSE WIRE DRAWER) Neutrophil abs 1.6 1.5 - 6.5 K/cumm Comment:Testing performed by : [place], [address] Imm gran abs 0.0 0.0 - 0.1 K/cumm [facility] ([place]) Comment:Testing performed by : [place], [address] Lymphocyte abs 1.2 0.8 - 3.3 K/cumm [facility] ([place]) Comment:Testing performed by : [place], [address] Monocyte abs 0.3 0.2 - 0.8 K/cumm [facility] ([place]) Comment:Testing performed by : [place], [address] Eosinophil abs 0.1 0.0 - 0.5 K/cumm [facility] ([place]) Comment:Testing performed by : [place], [address] Basophil abs 0.0 0.0 - 0.1 K/cumm [facility] ([place]) Comment:Testing performed by : [place], [address] Neutrophil pct 50.0 % [facility] ([place]) Comment: Interpretive Data Percent cell count reference ranges are not reported, since discordance with absolute values may lead to misinterpretation of CBC data. Current Interpretive Data was last revised on 2017. Testing performed by: [place], [address] Imm gran pct 0.6 % [facility] ([place]) Comment: Interpretive Data Percent cell count reference ranges are not reported, since discordance with absolute values may lead to misinterpretation of CBC data. Current Interpretive Data was last revised on 2017. Testing performed by: [facility], [facility], [place], [address] Lymphocyte pct 36.4 % [facility] ([place]) Comment: Interpretive Data Percent cell count reference ranges are not reported, since discordance with absolute values may lead to misinterpretation of CBC data. Current Interpretive Data was last revised on 2017. Testing performed by: [facility], [facility], [place], [address] Monocyte pct 8.9 % [facility] ([place]) Comment: Interpretive Data Percent cell count reference ranges are not reported, since discordance with absolute values may lead to misinterpretation of CBC data. Current Interpretive Data was last revised on 2017. Testing performed by: [facility], [place], [address] Eosinophil pct 3.5 % [facility] ([place]) Comment: Interpretive Data Percent cell count reference ranges are not reported, since discordance with absolute values may lead to misinterpretation of CBC data. Current Interpretive Data was last revised on 2017. Testing performed by: [facility], [facility], [place], [address] Basophil pct 0.6 % [facility] ([place]) Comment: Interpretive Data Percent cell count reference ranges are not reported, since discordance with absolute values may lead to misinterpretation of CBC data. Current Interpretive Data was last revised on 2017. Testing performed by: [facility], [facility], [place], [address] Blood 04/04/2024 10:3 5 AM COARSE WIRE DRAWER 04/04/2024 10:40 AM COARSE WIRE DRAWER us Zoraida Villegas NEUROSURGERY RESEARCH DIRECTOR LAB BLOOD ORDERABLES Final Result [facility] ([place]) [address] [facility] Department [place] [address] * (ABNORMAL) CBC with auto differential (04/04/2024 10:35 AM COARSE WIRE DRAWER) WBC 3.1(L) 3.8 - 9.9 K/cumm Comment:Testing performed by : [facility] [address], Medical Office [facility] B [facility] [address], [place] [address] Hgb 11.2(L) 11.9 - 15.5 g/dL [facility] ([place]) Comment:Testing performed by : [facility] [address], Medical Office [facility] [address], [place] [address] Hct 34.6(L) 35.6 - 45.5 % [facility] ([place]) Comment:Testing performed by : [facility] [address], Medical Office [facility] B [facility] [address], [place] [address] Plt 129(L) 150 - 400 K/cumm [facility] ([place]) Comment:Testing performed by : [facility] [address], Medical Office [facility] B [facility] [address], [place] [address] MPV 9.0(L) 9.1 - 12.3 fL [facility] ([place]) Comment:Testing performed by : [facility] [address], Medical Office [facility] B [facility] [address], [place] [address] RBC 3.24(L) 3.90 - 5.20 M/cumm [facility] ([place]) Comment:Testing performed by : [facility] [address], Medical Office [facility] B [facility] [address], [place] [address] MCV 106.8(H) 81.3 - 96.4 fL [facility] ([place]) Comment:Testing performed by : [facility] [address], Medical Office [facility] B [facility] [address], [place] [address] MCH 34.6(H) 27.1 - 33.3 pg [facility] ([place]) Comment:Testing performed by : [facility] [address], Medical Office [facility] B [facility] [address], [place] [address] MCHC 32.4 32.3 - 35.7 g/dL [facility] ([place]) Comment:Testing performed by : [facility] [address], Medical Office [facility] [address], [place] [address] RDW CV 14.2 11.1 - 14.9 % [facility] ([place]) Comment:Testing performed by : [facility] [address], Medical Office [facility] [address], [place] [address] RDW SD 55.2(H) 35.7 - 48.1 fL [facility] ([place]) Comment:Testing performed by : [facility] [address], Medical Office [facility] [address], [place] [address] NRBC abs Not Measured 0.00 - 0.01 K/cumm [facility] ([place]) Comment:Testing performed by : [facility] [address], Medical Office [facility] [address], [place] [address] Blood 04/04/2024 10:3 5 AM COARSE WIRE DRAWER 04/04/2024 10:40 AM COARSE WIRE DRAWER Zoraida Villegas NEUROSURGERY RESEARCH DIRECTOR LAB BLOOD ORDERABLES Final Result [facility] ([place]) [address] [facility] Department [place] [address] * (ABNORMAL) Comprehensive metabolic panel (04/04/2024 10:35 AM COARSE WIRE DRAWER) Sodium 142 135 - 145 mmol/L Comment:Testing performed by : [facility], [place], [address] Potassium, pl 3.8 3.3 - 4.9 mmol/L [facility] ([place]) Comment:Testing performed by : [facility], [place], [address] Chloride 103 97 - 110 mmol/L [facility] ([place]) Comment:Testing performed by : [facility], [place], [address] CO2 32 22 - 32 mmol/L [facility] ([place]) Comment:Testing performed by : [facility], [place], [address] Anion gap 8 2 - 15 mmol/L [facility] ([place]) Comment:Testing performed by : [facility], [place], [address] BUN 14 6 - 25 mg/dL [facility] ([place]) Comment:Testing performed by : [facility], [place], [address] Creatinine 0.46(L) 0.60 - 1.10 mg/dL [facility] ([place]) Comment:Testing performed by : [place], [address] Glucose 134 70 - 199 mg/dL [facility] ([place]) Comment: Interpretive Data Fasting glucose >/= 126 [...] was last revised 2022. Testing performed by: [place], [address] Calcium 9.7 8.5 - 10.3 mg/dL [facility] ([place]) Comment:Testing performed by : [place], [address] Bilirubin, total 0.4 0.1 - 1.2 mg/dL [facility] ([place]) Comment:Testing performed by : [facility], [place], [address] Protein, pl 6.8 6.5 - 8.5 g/dL [facility] ([place]) Comment:Testing performed by : [place], [address] Albumin 4.3 3.5 - 5.0 g/dL [facility] ([place]) Comment:Testing performed by : [place], [address] Alk phos 129 40 - 130 Units/L [facility] ([place]) Comment:Testing performed by : [place], [address] ALT 53(H) 7 - 45 Units/L [facility] ([place]) Comment:Testing performed by : [place], [address] AST 25 10 - 45 Units/L [facility] ([place]) Comment:Testing performed by : [facility], [place], [address] Blood 04/04/2024 10:3 5 AM COARSE WIRE DRAWER 04/04/2024 11:16 AM COARSE WIRE DRAWER Zoraida Bartonabdirahmanbrian NEUROSURGERY RESEARCH DIRECTOR LAB BLOOD ORDERABLES Final Result [facility] ([place]) [address] [facility] Department [place] [address] * Differential, auto (03/21/2024 10:40 AM COARSE WIRE DRAWER) Neutrophil abs 1.9 1.5 - 6.5 K/cumm Comment:Testing performed by : [facility] [address], Medical Office [facility] B [facility] [address], [place] [address] Imm gran abs 0.0 0.0 - 0.1 K/cumm [facility] ([place]) Comment:Testing performed by : [facility] [address], Medical Office [facility] B [facility] [address], [place] [address] Lymphocyte abs 1.5 0.8 - 3.3 K/cumm [facility] ([place]) Comment:Testing performed by : [facility] [address], Medical Office [facility] 132, [place] [address] Monocyte abs 0.4 0.2 - 0.8 K/cumm [facility] ([place]) Comment:Testing performed by : [facility] [address], Medical Office [facility] 132, [place] [address] Eosinophil abs 0.1 0.0 - 0.5 K/cumm [facility] ([place]) Comment:Testing performed by : [facility] [address], Medical Office [facility] B [facility] [address], [place] [address] Basophil abs 0.0 0.0 - 0.1 K/cumm [facility] ([place]) Comment:Testing performed by : [facility] [address], Medical Office [facility] B [facility] [address], [place] [address] Neutrophil pct 48.7 % [facility] ([place]) Comment: Interpretive Data Percent cell count reference ranges are not reported, since discordance with absolute values may lead to misinterpretation of CBC data. Current Interpretive Data was last revised on 2022. Testing performed by: [facility] [address], Medical Office [facility] [address], [place] [address] Imm gran pct 0.3 % [facility] ([place]) Comment: Interpretive Data Percent cell count reference ranges are not reported, since discordance with absolute values may lead to misinterpretation of CBC data. Current Interpretive Data was last revised on 2022. Testing performed by: [facility] [address], Medical Office [address], [place] [address] Lymphocyte pct 37.7 % [facility] ([place]) Comment: Interpretive Data Percent cell count reference ranges are not reported, since discordance with absolute values may lead to misinterpretation of CBC data. Current Interpretive Data was last revised on 2022. Testing performed by: [facility] [address], Medical Office [address], [place] [address] Monocyte pct 8.8 % [facility] ([place]) Comment: Interpretive Data Percent cell count reference ranges are not reported, since discordance with absolute values may lead to misinterpretation of CBC data. Current Interpretive Data was last revised on 2022. Testing performed by: [facility] [address], Medical Office [address], [place] [address] Eosinophil pct 3.5 % [facility] ([place]) Comment: Interpretive Data Percent cell count reference ranges are not reported, since discordance with absolute values may lead to misinterpretation of CBC data. Current Interpretive Data was last revised on 2022. Testing performed by: [facility] [address], Medical Office [facility] [address], [place] [address] Basophil pct 1.0 % [facility] ([place]) Comment: Interpretive Data Percent cell count reference ranges are not reported, since discordance with absolute values may lead to misinterpretation of CBC data. Current Interpretive Data was last revised on 2022. Testing performed by: [facility] [address], Medical Office [address], [place] [address] Blood 03/21/2024 10:4 0 AM COARSE WIRE DRAWER 03/21/2024 10:45 AM COARSE WIRE DRAWER Zoraida Monalisa Bourgette NEUROSURGERY RESEARCH DIRECTOR LAB BLOOD ORDERABLES Final Result [facility] ([place]) [address] [facility] [place] [address] * (ABNORMAL) CBC with auto differential (03/21/2024 10:40 AM COARSE WIRE DRAWER) WBC 4.0 3.8 - 9.9 K/cumm Comment:Testing performed by : [facility] [address], Medical Office [address], [place] [address] Hgb 12.2 11.9 - 15.5 g/dL [facility] ([place]) Comment:Testing performed by : [facility] [address], Medical Office [facility] [address], [place] [address] Hct 37.8 35.6 - 45.5 % [facility] ([place]) Comment:Testing performed by : [facility] [address], Medical Office [facility] [address], [place] [address] Plt 151 150 - 400 K/cumm [facility] ([place]) Comment:Testing performed by : [facility] [address], Medical Office [facility] [address], [place] [address] MPV 10.7 9.1 - 12.3 fL [facility] ([place]) Comment:Testing performed by : [facility] [address], Medical Office [facility] [address], [place] [address] RBC 3.55(L) 3.90 - 5.20 M/cumm [facility] ([place]) Comment:Testing performed by : [facility] [address], Medical Office [facility] [address], [place] [address] MCV 106.5(H) 81.3 - 96.4 fL [facility] ([place]) Comment:Testing performed by : [facility] [address], Medical Office [address], [place] [address] MCH 34.4(H) 27.1 - 33.3 pg [facility] ([place]) Comment:Testing performed by : [facility] [address], Medical Office [address], [place] [address] MCHC 32.3 32.3 - 35.7 g/dL [facility] ([place]) Comment:Testing performed by : [facility] [address], Medical Office [address], [place] [address] RDW CV 14.1 11.1 - 14.9 % [facility] ([place]) Comment:Testing performed by : [facility] [address], Medical Office [address], [place] [address] RDW SD 55.9(H) 35.7 - 48.1 fL [facility] ([place]) Comment:Testing performed by : [facility] [address], Medical Office [address], [place] [address] NRBC abs Not Measured 0.00 - 0.01 K/cumm [facility] ([place]) Comment:Testing performed by : [facility] [address], Medical Office [address], [place] [address] Blood 03/21/2024 10:4 0 AM COARSE WIRE DRAWER 03/21/2024 10:45 AM COARSE WIRE DRAWER Zoraida Villegas NEUROSURGERY RESEARCH DIRECTOR LAB BLOOD ORDERABLES Final Result [facility] ([place]) [address] [facility] Department [place] [address] * eGFR (03/07/2024 9:45 AM COARSE WIRE DRAWER) eGFR >90 >=60 mL/min/1. 73 m2 Comment: [...] was last reviewed 2021. Testing performed by: [place], [address] Blood 03/07/2024 9:45 AM COARSE WIRE DRAWER 03/07/2024 9:59 AM COARSE WIRE DRAWER Chalino Chapa MD LAB BLOOD ORDERABLES Aylin freedman Result [facility] ([place]) [address] [facility] Department [place] [address] * (ABNORMAL) Comprehensive metabolic panel (03/07/2024 9:45 AM COARSE WIRE DRAWER) Sodium 142 135 - 145 mmol/L Comment:Testing performed by : [facility], [place], [address] Potassium, pl 4.2 3.3 - 4.9 mmol/L [facility] ([place]) Comment:Testing performed by : [facility], [place], [address] Chloride 102 97 - 110 mmol/L [facility] ([place]) Comment:Testing performed by : [facility], [place], [address] CO2 33(H) 22 - 32 mmol/L [facility] ([place]) Comment:Testing performed by : [place], [address] Anion gap 6 2 - 15 mmol/L [facility] ([place]) Comment:Testing performed by : [facility] [place], [place], [address] BUN 16 6 - 25 mg/dL [facility] ([place]) Comment:Testing performed by : [facility] [place], [place], [address] Creatinine 0.55(L) 0.60 - 1.10 mg/dL [facility] ([place]) Comment:Testing performed by : [facility] [place], [place], [address] Glucose 113 70 - 199 mg/dL [facility] [...] was last revised 2022. Testing performed by: [place], [address] Calcium 9.5 8.5 - 10.3 mg/dL [facility] ([place]) Comment:Testing performed by : [place], [address] Bilirubin, total 0.4 0.1 - 1.2 mg/dL [facility] ([place]) Comment:Testing performed by : [facility] [place], [place], [address] Protein, pl 6.6 6.5 - 8.5 g/dL [facility] ([place]) Comment:Testing performed by : [facility] [place], [place], [address] Albumin 4.1 3.5 - 5.0 g/dL [facility] ([place]) Comment:Testing performed by : [place], [address] Alk phos 118 40 - 130 Units/L [facility] ([place]) Comment:Testing performed by : [facility] [place], [place], [address] ALT 44 7 - 45 Units/L [facility] ([place]) Comment:Testing performed by : [facility] [place], [place], [address] AST 20 10 - 45 Units/L [facility] ([place]) Comment:Testing performed by : [facility] [place], [place], [address] Blood 03/07/2024 9:45 AM COARSE WIRE DRAWER 03/07/2024 9:59 AM COARSE WIRE DRAWER us Chalino Chapa MD LAB BLOOD ORDERABLES Aylin l Result [facility] ([place]) 1 [facility] Department [place] [address] * Differential, auto (03/07/2024 8:45 AM COARSE WIRE DRAWER) Neutrophil abs 1.5 1.5 - 6.5 K/cumm Comment:Testing performed by : [facility] [address], Medical Office [facility] [address], [place] [address] Imm gran abs 0.0 0.0 - 0.1 K/cumm [facility] ([place]) Comment:Testing performed by : [facility] [address], Medical Office [facility] [address], [place] [address] Lymphocyte abs 1.1 0.8 - 3.3 K/cumm [facility] ([place]) Comment:Testing performed by : [facility] [address], Medical Office [facility] [address], [place] [address] Monocyte abs 0.3 0.2 - 0.8 K/cumm [facility] ([place]) Comment:Testing performed by : [facility] [address], Medical Office [facility] [address], [place] [address] Eosinophil abs 0.1 0.0 - 0.5 K/cumm [facility] ([place]) Comment:Testing performed by : [facility] [address], Medical Office [facility] [address], [place] [address] Basophil abs 0.0 0.0 - 0.1 K/cumm [facility] ([place]) Comment:Testing performed by : [facility] [address], Medical Office [facility] [address], [place] [address] Neutrophil pct 50.5 % [facility] ([place]) Comment: Interpretive Data Percent cell count reference ranges are not reported, since discordance with absolute values may lead to misinterpretation of CBC data. Current Interpretive Data was last revised on 2022. Testing performed by: [facility] [address], Medical Office [facility] [address], [place] [address] Imm gran pct 0.0 % [facility] ([place]) Comment: Interpretive Data Percent cell count reference ranges are not reported, since discordance with absolute values may lead to misinterpretation of CBC data. Current Interpretive Data was last revised on 2022. Testing performed by: [facility] [address], Medical Office [facility] [address], [place] [address] Lymphocyte pct 36.8 % [facility] ([place]) Comment: Interpretive Data Percent cell count reference ranges are not reported, since discordance with absolute values may lead to misinterpretation of CBC data. Current Interpretive Data was last revised on 2022. Testing performed by: [facility] [address], Medical Office [facility] [address], [place] [address] Monocyte pct 8.6 % [facility] ([place]) Comment: Interpretive Data Percent cell count reference ranges are not reported, since discordance with absolute values may lead to misinterpretation of CBC data. Current Interpretive Data was last revised on 2022. Testing performed by: [facility] [address], Medical Office [facility] [address], [place] [address] Eosinophil pct 3.1 % [facility] ([place]) Comment: Interpretive Data Percent cell count reference ranges are not reported, since discordance with absolute values may lead to misinterpretation of CBC data. Current Interpretive Data was last revised on 2022. Testing performed by: [facility] [address], Medical Office [facility] B [facility] [address], [place] [address] Basophil pct 1.0 % [facility] ([place]) Comment: Interpretive Data Percent cell count reference ranges are not reported, since discordance with absolute values may lead to misinterpretation of CBC data. Current Interpretive Data was last revised on 2022. Testing performed by: [facility] [address], Medical Office [facility] [address], [place] [address] Blood 03/07/2024 8:45 AM COARSE WIRE DRAWER 03/07/2024 9:49 AM COARSE WIRE DRAWER us Chalino Chapa MD LAB BLOOD ORDERABLES Aylin freedman Result [facility] ([place]) 1 [facility] Department [place] [address] * (ABNORMAL) CBC with auto differential (03/07/2024 8:45 AM COARSE WIRE DRAWER) WBC 2.9(L) 3.8 - 9.9 K/cumm Comment:Testing performed by : [facility] [address], Medical Office [facility] [address], [place] [address] Hgb 11.8(L) 11.9 - 15.5 g/dL [facility] ([place]) Comment:Testing performed by : [facility] [address], Medical Office [facility] [address], [place] [address] Hct 37.1 35.6 - 45.5 % [facility] ([place]) Comment:Testing performed by : [facility] [address], Medical Office [facility] [address], [place] [address] Plt 135(L) 150 - 400 K/cumm [facility] ([place]) Comment:Testing performed by : [facility] [address], Medical Office [facility] [address], [place] [address] MPV 10.4 9.1 - 12.3 fL [facility] ([place]) Comment:Testing performed by : [facility] [address], Medical Office [facility] [address], [place] [address] RBC 3.44(L) 3.90 - 5.20 M/cumm [facility] ([place]) Comment:Testing performed by : [facility] [address], Medical Office [facility] [address], [place] [address] MCV 107.8(H) 81.3 - 96.4 fL [facility] ([place]) Comment:Testing performed by : [facility] [address], Medical Office [facility] [address], [place] [address] MCH 34.3(H) 27.1 - 33.3 pg [facility] ([place]) Comment:Testing performed by : [facility] [address], Medical Office [facility] [address], [place] [address] MCHC 31.8(L) 32.3 - 35.7 g/dL [facility] ([place]) Comment:Testing performed by : [facility] [address], Medical Office [facility] [address], [place] [address] RDW CV 14.5 11.1 - 14.9 % [facility] ([place]) Comment:Testing performed by : [facility] [address], Medical Office [address], [place] [address] RDW SD 58.0(H) 35.7 - 48.1 fL [facility] ([place]) Comment:Testing performed by : [facility] [address], Medical Office [address], [place] [address] NRBC abs Not Measured 0.00 - 0.01 K/cumm [facility] ([place]) Comment:Testing performed by : [facility] [address], Medical Office [address], [place] [address] Blood 03/07/2024 8:45 AM COARSE WIRE DRAWER 03/07/2024 9:49 AM COARSE WIRE DRAWER us Chalino Chapa MD LAB BLOOD ORDERABLES Aylin freedman Result [facility] ([place]) 1 [facility] Department [place] [address] * eGFR (02/22/2024 8:10 AM COARSE WIRE DRAWER) eGFR >90 >=60 mL/min/1. 73 m2 Comment: [...] last reviewed 2021. Blood 02/22/2024 8:10 AM COARSE WIRE DRAWER 02/22/2024 10:47 AM COARSE WIRE DRAWER us Neisha Hi NP LAB BLOOD ORDERABLES Final R esult [facility] ([place]) 1 [facility] Department [place] [address] * eGFR (02/22/2024 8:10 AM COARSE WIRE DRAWER) eGFR >90 >=60 mL/min/1. 73 m2 Comment: [...] was last reviewed 2021. Testing performed by: [facility], [address] [facility], [place], [address] Blood 02/22/2024 8:10 AM COARSE WIRE DRAWER 02/22/2024 8:32 AM COARSE WIRE DRAWER us Chalino Chapa MD LAB BLOOD ORDERABLES Aylin l Result [facility] ([place]) 1 [facility] Department [place] [address] * Differential, auto (02/22/2024 8:10 AM COARSE WIRE DRAWER) Neutrophil abs 1.6 1.5 - 6.5 K/cumm Comment:Testing performed by : [facility] [address], Medical Office [facility] [address], [place] [address] Imm gran abs 0.0 0.0 - 0.1 K/cumm [facility] ([place]) Comment:Testing performed by : [facility] [address], Medical Office [facility] [address], [place] [address] Lymphocyte abs 1.3 0.8 - 3.3 K/cumm [facility] ([place]) Comment:Testing performed by : [facility] [address], Medical Office [facility] [address], [place] [address] Monocyte abs 0.3 0.2 - 0.8 K/cumm [facility] ([place]) Comment:Testing performed by : [facility] [address], Medical Office [facility] [address], [place] [address] Eosinophil abs 0.1 0.0 - 0.5 K/cumm [facility] ([place]) Comment:Testing performed by : [facility] [address], Medical Office [facility] [address], [place] [address] Basophil abs 0.0 0.0 - 0.1 K/cumm [facility] ([place]) Comment:Testing performed by : [facility] [address], Medical Office [facility] [address], [place] [address] Neutrophil pct 48.5 % [facility] ([place]) Comment: Interpretive Data Percent cell count reference ranges are not reported, since discordance with absolute values may lead to misinterpretation of CBC data. Current Interpretive Data was last revised on 2022. Testing performed by: [facility] [address], Medical Office [facility] [address], [place] [address] Imm gran pct 0.3 % [facility] ([place]) Comment: Interpretive Data Percent cell count reference ranges are not reported, since discordance with absolute values may lead to misinterpretation of CBC data. Current Interpretive Data was last revised on 2022. Testing performed by: [facility] [address], Medical Office [facility] [address], [place] [address] Lymphocyte pct 39.7 % [facility] ([place]) Comment: Interpretive Data Percent cell count reference ranges are not reported, since discordance with absolute values may lead to misinterpretation of CBC data. Current Interpretive Data was last revised on 2022. Testing performed by: [facility] [address], Medical Office [facility] [address], [place] [address] Monocyte pct 8.1 % [facility] ([place]) Comment: Interpretive Data Percent cell count reference ranges are not reported, since discordance with absolute values may lead to misinterpretation of CBC data. Current Interpretive Data was last revised on 2022. Testing performed by: [facility] [address], Medical Office [facility] [address], [place] [address] Eosinophil pct 2.8 % EMELINA [facility] ([place]) Comment: Interpretive Data Percent cell count reference ranges are not reported, since discordance with absolute values may lead to misinterpretation of CBC data. Current Interpretive Data was last revised on 2022. Testing performed by: [facility] [address], Medical Office [facility] [address], [place] [address] Basophil pct 0.6 % [facility] ([place]) Comment: Interpretive Data Percent cell count reference ranges are not reported, since discordance with absolute values may lead to misinterpretation of CBC data. Current Interpretive Data was last revised on 2022. Testing performed by: [facility] [address], Medical Office [facility] [address], [place] [address] Blood 02/22/2024 8:10 AM COARSE WIRE DRAWER 02/22/2024 8:17 AM COARSE WIRE DRAWER Chalino Chapa MD LAB BLOOD ORDERABLES Aylin l Result [facility] ([place]) 1 [facility] Department [place] [address] * (ABNORMAL) CBC with auto differential (02/22/2024 8:10 AM COARSE WIRE DRAWER) WBC 3.2(L) 3.8 - 9.9 K/cumm Comment:Testing performed by : [facility] [address], Medical Office [facility] B [facility] [address], [place] [address] Hgb 12.7 11.9 - 15.5 g/dL [facility] ([place]) Comment:Testing performed by : [facility] [address], Medical Office [facility] [address], [place] [address] Hct 39.8 35.6 - 45.5 % [facility] ([place]) Comment:Testing performed by : [facility] [address], Medical Office [facility] [address], [place] [address] Plt 125(L) 150 - 400 K/cumm [facility] ([place]) Comment:Testing performed by : [facility] [address], Medical Office [facility] [address], [place] [address] MPV 11.1 9.1 - 12.3 fL [facility] ([place]) Comment:Testing performed by : [facility] [address], Medical Office [facility] [address], [place] [address] RBC 3.68(L) 3.90 - 5.20 M/cumm [facility] ([place]) Comment:Testing performed by : [facility] [address], Medical Office [facility] B [facility] [address], [place] [address] MCV 108.2(H) 81.3 - 96.4 fL [facility] ([place]) Comment:Testing performed by : [facility] [address], Medical Office [facility] B [facility] [address], [place] [address] MCH 34.5(H) 27.1 - 33.3 pg [facility] ([place]) Comment:Testing performed by : [facility] [address], Medical Office [facility] [address], [place] [address] MCHC 31.9(L) 32.3 - 35.7 g/dL [facility] ([place]) Comment:Testing performed by : [facility] [address], Medical Office [facility] [address], [place] [address] RDW CV 15.5(H) 11.1 - 14.9 % [facility] ([place]) Comment:Testing performed by : [facility] [address], Medical Office [facility] [address], [place] [address] RDW SD 62.6(H) 35.7 - 48.1 fL [facility] ([place]) Comment:Testing performed by : [facility] [address], Medical Office [facility] [address], [place] [address] NRBC abs Not Measured 0.00 - 0.01 K/cumm [facility] ([place]) Comment:Testing performed by : [facility] [address], Medical Office [facility] B [facility] [address], [place] [address] Blood 02/22/2024 8:10 AM COARSE WIRE DRAWER 02/22/2024 8:17 AM COARSE WIRE DRAWER us Chalino Chapa MD LAB BLOOD ORDERABLES Aylin l Result S[facility]RA [facility] ([place]) 1 [facility] Department [place] [address] * TSH (02/22/2024 8:10 AM COARSE WIRE DRAWER) Pathologist [facility] Thyroid Stimulating Hormone 2.55 0.30 - 4.20 mcIUnit/mL Blood 02/22/2024 8:10 AM COARSE WIRE DRAWER 02/22/2024 10:47 AM COARSE WIRE DRAWER us Neisha Hi NP LAB BLOOD ORDERABLES Final R esult Performing Organization Address [facility] Co de Phone Number [facility] ([place]) 1 [facility] [place] [employer] [place] [address] * (ABNORMAL) Comprehensive metabolic panel (02/22/2024 8:10 AM COARSE WIRE DRAWER) Pathologist [facility] Sodium 142 135 - 145 mmol/L Potassium, pl 4.1 3.3 - 4.9 mmol/L [facility] ([place]) Chloride 101 97 - 110 mmol/L [facility] ([place]) CO2 34(H) 22 - 32 mmol/L [facility] ([place]) Anion gap 8 2 - 15 mmol/L [facility] ([place]) BUN 16 6 - 25 mg/dL [facility] ([place]) Creatinine 0.50(L) 0.60 - 1.10 mg/dL [facility] ([place]) Glucose 150 70 - 199 mg/dL [facility] ([place]) Comment: Interpretive Data Fasting glucose [...] [facility] ([place]) Blood 02/22/2024 8:10 AM COARSE WIRE DRAWER 02/22/2024 10:47 AM COARSE WIRE DRAWER us Neisha Hi NEUROSURGERY RESEARCH DIRECTOR LAB BLOOD ORDERABLES Final R esult [facility] ([place]) 1 [facility] Department [place] [address] * (ABNORMAL) Comprehensive metabolic panel (02/22/2024 8:10 AM COARSE WIRE DRAWER) Sodium 136 135 - 145 mmol/L Comment:Testing performed by : [place], [address] Potassium, pl 3.9 3.3 - 4.9 mmol/L [facility] ([place]) Comment:Testing performed by : [place], [address] Chloride 97 97 - 110 mmol/L [facility] ([place]) Comment:Testing performed by : [place], [address] CO2 34(H) 22 - 32 mmol/L [facility] ([place]) Comment:Testing performed by : [facility], [facility], [place], [address] Anion gap 4 2 - 15 mmol/L [facility] ([place]) Comment:Testing performed by : [facility], [facility], [place], [address] BUN 15 6 - 25 mg/dL [facility] ([place]) Comment:Testing performed by : [facility] [place], [place], [address] Creatinine 0.49(L) 0.60 - 1.10 mg/dL [facility] ([place]) Comment:Testing performed by : [facility] [place], [place], [address] Glucose 154 70 - 199 mg/dL [facility] ([place]) Comment: Interpretive Data Fasting glucose >/= 126 [...] was last revised 2022. Testing performed by: [facility] [place], [place], [address] Calcium 9.7 8.5 - 10.3 mg/dL [facility] ([place]) Comment:Testing performed by : [place], [address] Bilirubin, total 0.5 0.1 - 1.2 mg/dL [facility] ([place]) Comment:Testing performed by : [facility] [place], [place], [address] Protein, pl 7.0 6.5 - 8.5 g/dL [facility] ([place]) Comment:Testing performed by : [facility] [place], [place], [address] Albumin 4.4 3.5 - 5.0 g/dL [facility] ([place]) Comment:Testing performed by : [facility] [place], [place], [address] Alk phos 131(H) 40 - 130 Units/L [facility] ([place]) Comment:Testing performed by : [facility], [facility], [place], [address] ALT 37 7 - 45 Units/L [facility] ([place]) Comment:Testing performed by : [facility], [facility], [place], [address] AST 20 10 - 45 Units/L [facility] ([place]) Comment:Testing performed by : [facility], [facility], [place], [address] Blood 02/22/2024 8:10 AM COARSE WIRE DRAWER 02/22/2024 8:32 AM COARSE WIRE DRAWER us Chalino Chapa MD LAB BLOOD ORDERABLES Aylin freedman Result Performing Organization Address City/State/[facility] Co de Phone Number [facility] ([place]) [address] [facility] Department [place] [address] from Last 3 Months Insurance MEDICARE MEDICARE [facility] MEDICARE SUPPLEMENT MEDICARE [facility] MEDICARE SUPPLEMENT Advance Directives For more information, please contact: [phone] Documents on File Type Date Recorded Patient Cv Rn Expl anation ADVANCE DIRECTIVE 12/20/2023 8:01 AM Power of Electronic Intelligence Officer-Medical * Full Code (Latest Code Status on File) Date Activated Date Inactivated Comments 12/11/2023 12:19 PM 12/19/2023 6:45 PM Care Teams Stenographer Secretary Relationship Specialty Start Date End Date Bryan Davey DO PCP - General Internal Medicine 11/14/23
--- OUTSIDE RECORDS SUMMARY | 2024-05-24 10:18 | XMS_ITS ---
Author Organization [facility] Medical Office Building [address] Address [address] [place] [address] Care Team Providers Care Insurance Assistant Name Role Phone Bryan Davey DO Primary Care Provider [phone]- [phone] Active Problems Problem Noted Date Diagnosed Date [...] Problems MDS (myelodysplastic syndrom e) ([facility]) Treatment Medications No medications scheduled. Decitabine (D1-5) 28 Day Cycles - AML or MDS* Plan Start Date:11/26/2023 Plan Provider:Chalino Chapa MD Linked Problems MDS (myelodysplastic syndrom e) ([facility]) Treatment Medications Current Day (Day 1 [...] (06/06/2018): Added automatically from request for surgery [id number]
--- OUTSIDE RECORDS SUMMARY | 2024-05-24 10:18 | XMS_ITS | Encounter Summary ---
Author Organization [facility] Health Address [address] [place] [address] Care Team Providers Care Futures Trader Name Role Phone Mervat Kelley AUTOMOBILE ASSEMBLER-CORPORATE SAFETY MANAGER Primary Care Provider + Encounter Details Date Type Department Care Team (Late st Contact Info) Description 10/05/2022 Lab Requisition [facility] - Pathology Lab [address] [place] [address] Jesus Louis MD [address] [address] Anemia, unspecified Social History Tobacco [...] AM CDT) Case Report Flow Cytometry Case: [id number] Authorizing Provider: Jesus Louis MD Collected: 10/05/2022 09:15 AM Ordering Location: [facility] Pathology Lab Received: 10/05/2022 02:15 PM Pathologist: Linda Hauser MD Specimen: Bone Marrow 10/05/2022 4:45 PM CDT [facility] Final Diagnosis Bone marrow, flow cytometric immunophenotypic analysis: - No evidence of non-Hodgkin lymphoma or high-grade myeloid neoplasm. - See interpretation. 10/05/2022 4:45 PM CDT [facility] PATHOLOGY LAB Flow Cytometry Interpretation The bone marrow specimen has a viability of 85%. Within the lymphocyte gate, there is no monoclonal B-cell population identified (kappa:lambda ratio = 2.3:1). There is no expanded T-cell population seen. By CD34, 1.1% of all events analyzed are blasts. A bone marrow aspirate smear prepared from the flow cytometry specimen is reviewed for customer quality engineer purposes. The bone marrow specimen shows no evidence of involvement by non-Hodgkin lymphoma or a high-grade myeloid neoplasm. Correlation with clinical findings, the concurrent bone marrow biopsy, and relevant cytogenetic/molecu lar studies is required. 10/05/2022 4:45 PM CDT [facility] PATHOLOGY LAB Flow Cytometry Results Differential Result Comment Flow Cell Count /uL 40,800 Total Viability % 85.0 Lymphocytes % 18 Dim CD45 Region % 9 Monocytes % 11 Granulocytes % 61 10/05/2022 4:45 PM CDT [facility] Reason for test Anemia, unspecified 285.9 10/05/2022 4:45 PM CDT [facility] PATH[facility] Client Specimen ID # [id number] 10/05/2022 4:45 PM CDT [facility] PATHOLOGY LAB Number of markers 10 were performed. A-2 Flow CD10 A-3 Flow CD13 A-5 Flow CD20 A-1 Flow CD5 A-4 Flow CD19 A-6 Flow CD33 A-7 Flow CD34 A-8 Flow CD45 A-9 [place]+CD19+ A-10 Lambda+CD19+ 10/05/2022 4:45 PM CDT [facility] PATHOLOGY LAB Pathologist Location at [facility] 10/05/2022 4:45 PM CDT [facility] PATHOLOGY LAB Disclaimer Test performed at [facility], [address] [place], [place], [address]. *The established laboratory minimum viability is 70%. [...] PATHOLOGY LAB Embedded Images 4:45 PM CDT [facility] PATHOLOGY LAB Pathology/Cytolo gy BONE MARROW SPECIMEN / Unknown 10/05/2022 9:15 AM CDT 10/05/2022 2:15 PM CDT Jesus Louis MD LAB - PATHOLOGY/CYTO LOGY ORDERABLES [facility] PATHOLOGY LAB [address] [facility]. [address] [phone] documented in this encounter Visit Diagnoses Diagnosis Anemia, unspecified documented in this encounter Care Teams Futures Trader Relationship Specialty Start Date End Date Mervat Kelley APRN-DAVIS [address] [place] [employer] [address] PCP - General 11/24/21 documented as of this encounter
[2024-05-24 11:24] LABS: White Blood Count 0.9 K/mm3 (4.5-10.0)
[2024-05-24 11:34] LABS: Neutrophils Percent Manual 8 % (46-73); Total Cells Counted 100
[2024-05-24 11:35] LABS: Atypical Lymphocytes Present; Lymphocytes Absolute Manual 0.82 K/mm3 (1.1-4.5); Macrocytosis 1+ (NORMAL); Platelet Estimate Adequate (Adequate); Schistocytes None Seen
[2024-05-24 11:55] LABS: Band Neutrophils Percent 0 % (0-6); Neutrophils Absolute Manual 0.07 K/mm3 (1.7-7.2)
== END 2024-05-24 09:40 | disposition home or self-care (01) ==
LOC: ANHLAB 09:41
PROVIDERS: PCP Internal Medicine
DX: D46.9 Myelodysplastic syndrome, unspecified (principal)
CPT/HCPCS: 36415; 85025

== ENCOUNTER 2024-06-21 10:20 | Outpatient (CLI) | payer MEDICARE, SELFPAY ==
--- NOTE | ~2024-06-21 | XR_ITS ---
Left ankle Technique: AP and lateral views were obtained. Clinical History: Pain Findings: No acute fracture or dislocation is seen. Prior ORIF of the distal fibula. Osseous alignmen t is anatomic. Ankle mortise and other visualized joint spaces are preserved. Nonspecific extensive a morphous soft tissue calcifications are present in the calf. Impression: No acute fracture or dislocation at the ankle. Prior ORIF of the distal fibula. Extensive amorphous soft tissue calcifications of the calf, nonspecific. Reviewed, dictated and finalized at location M. Impression: No acute fracture or dislocation at the ankle. Prior ORIF of the distal fibula. Extensive amorphous soft tissue calcifications of the calf, nonspecific.
--- NOTE | ~2024-06-21 | XR_ITS ---
Left foot Technique: AP and lateral views were obtained. Clinical History: Pain Findings: There is acute, oblique, minimally displaced fracture of the distal fifth metatarsal shaft. Prior ORIF of the distal fibula noted.. Joint spaces are preserved without erosive or degenerative c hange. Soft tissues are unremarkable. Impression: Acute fracture the distal fifth metatarsal shaft, as detailed above. Reviewed, dictated and finalized at location . Impression: Acute fracture the distal fifth metatarsal shaft, as detailed above.
--- OUTSIDE RECORDS SUMMARY | 2024-06-21 11:28 | XMS_ITS | Encounter Summary ---
Author Organization [facility] Address [facility] [place] [address] Care Team Providers Care Slide Attendant Name Role Phone Andie Ang MD Primary Care Provider + [phone] Mervat Kelley Primary Care Provider + Andie Ang MD Primary Care Provider + [phone] Mervat Kelley Primary Care Provider + Andie Ang MD Primary Care Provider + [phone] Mervat Kelley Primary Care Provider + Encounter Details Date Type Department Care Team (Late st Contact Info) Description 11/15/2018 Lab Requisition [facility] DermPath Lab [address] [facility] [place] [address] Sarath De Guzman MD [address] [place] [address] Social History Tobacco Use Types Packs/Day Years [...] AM CDT) Case Report Dermatopathology Report Case: [id number] Authorizing Provider: Sarath De Guzman MD Collected: 11/14/2018 12:00 AM Ordering Location: [facility] DermPath Lab Received: 11/15/2018 12:29 PM [...] specimen consists of a shave biopsy measuring [id number]. Jar 0. 12:59 PM CDT DERMATOPATHOLOGY LABORATORY [...] characteristic determined by the Dermatopathology Laboratory at [facility], directed by Dr. Frederick Schofield. These tests need not be, and therefore are not, approved by the [place] Food and Drug Administration. The tests are used for clinical purposes. Billing Codes Specimen Charges Stain Charges 76606 1 12:59 PM CDT DERMATOPATHOLOGY LABORATORY Embedded Images 12:59 PM CDT DERMATOPATHOLOGY LABORATORY Pathology/Cytolog y TISSUE SPECIMEN FROM SKIN / Unknown 11/14/2018 11/15/2018 12:29 PM CDT Sarath De Guzman MD LAB - PATHOLOGY/CYTO LOGY ORDERABLES DERMATOPATHOLOGY LABORATORY [facility] - Department of Dermatology [address] [facility], 5th [place] [address], [facility] [phone] documented in this encounter Visit Diagnoses Not on filedocumented in this encounter Care Teams Slide Attendant Relationship Specialty Start Date End Date Andie Ang MD [address] [address] PCP - General 08/18/17 09/29/21 Mervat Kelley APRN-DISPENSARY ATTENDANT [address] [place] [address] Dr Barba [address] [place] [address] PCP - General Nurse Practitioner 09/30/21 09/30/21 Andie Ang MD [address] [phone] PCP - General 10/01/21 10/12/21 Mervat Kelley APRN-DISPENSARY ATTENDANT [address] [address] PCP - General 10/13/21 10/31/21 Andie Ang MD [address] [address] PCP - General 11/01/21 11/23/21 Mervat Kelley APRN-DISPENSARY ATTENDANT [address] [address] PCP - General 11/24/21 documented as of this encounter
--- OUTSIDE RECORDS SUMMARY | 2024-06-21 11:28 | XMS_ITS | Clinical Summary ---
Author Organization [facility] Address [address], [address] [address] Phone Care Team Providers Care Indoor Landscaper/Gardener Name Role Phone ReinaldotravonMervat APRN Primary Care Provider [phone] Medications polyethylene glycol (MIRALAX) Powder Use entire [...] age to complete this topic Insurance MEDICARE [facility] Care Teams Indoor Landscaper/Gardener Relationship Specialty Start Date End Date Mervat Kelley APRN PCP - General Advanced Practice Nurse 06/12/17
--- OUTSIDE RECORDS SUMMARY | 2024-06-21 11:30 | XMS_ITS | Clinical Summary ---
Author Organization [facility] Address [address] [place] [address] Care Team Providers Care Police Surgeon Name Role Phone Mervat Kelley SOLAR PANEL INSTALLER-MOTION PICTURE CAMERA LENS TECHNICIAN Primary Care Provider + Source Comments [facility],non-owned Affiliates and Associated Physician Practices is amultiple site organization consisting of ambulatory clinics and hospital sitesin [place], [place], [place] and [place]. This disclosure is being madepursuant to the Care Everywhere program and may not contain all information available regarding this patient. Last updated 17.[facility] Allergies Active Allergy Reactions Criticality Noted Date [...] 71.7 kg (158 lb) 04/06/2022 10:56 AM SUPERVISOR/PORT DIRECTOR Height 152.4 cm (5') 12/22/2021 12:39 PM [...] complete this topic MENINGOCOCCAL (Group B) VACCINE SHARED DECISION-MAKING Aged Out No longer eligible based on patient's age to complete this topic MENINGOCOCCAL GROUPS A/C/Y/W VACCINE Aged Out No longer eligible based on patient's age to complete this topic Advance Directives * Full Code (Latest Code Status on File) Date Activated Date Inactivated Comments 09/29/2021 4:59 AM 09/30/2021 2:57 PM Care Teams Police Surgeon Relationship Specialty Start Date End Date Mervat Kelley APRN-DAVIS [address] [address] PCP - General 11/24/21
--- OUTSIDE RECORDS SUMMARY | 2024-06-21 11:30 | XMS_ITS | Continuity of Care Document ---
Author Organization [facility] Address [address] [place] [address] Exec [address]ive [facility] [address] [place] [address] Phone Care Team Providers Care Nutrition Services Worker Name Role Phone Davison OD, Kem Unavailable [...] Diagnoses Date Provider Providers Copied on Encounter [facility], [address] [place] [address] [address], [place], [place], [id number], tel:[phone] [facility] No Information 9-200 9 Davison OD Kem. [address] [facility] , [address], [place], [address], [place]. tel:[phone] Office/outpat ient Visit, Est [facility], [address] [place] [address] [address], [place], [place], [id number], [place] tel:[phone] [facility] No Information 4-200 8 Krishnasamy Tarik. [address] [facility] [address], [place], [address], [place]. tel:[phone] Office/outpat ient Visit, [facility], [address] [place] [address] [address], [place], [place], [id number], [place] tel:[phone] [facility] No Information Pato-2 4-200 8 Krishnasamy Tarik. [address] [place] [address] 102, [place], [place], [facility], [place]. tel:[phone] Office/outpat ient Visit, [facility], [address] [place] [address] [address], [place], [place], [id number], [place] tel:[phone] [facility] No Information Pato-1 0-200 8 Krishnasamy Tarik. [address] [place] [address] 102, [place], [place], [facility], [place]. tel:[phone] Office/outpat ient Visit, [facility], [address] [place] [address] [address], [place], [place], [id number], [place] tel:[phone] [facility] No Information May-2 1-200 8 Davison OD Kem. [address] [place] [address] Dr, [address], [place], [address], [place]. tel:[phone] Office/outpat ient Visit, [facility], [address] [place] [address] [address], [place], [place], [id number], [place] tel:[phone] [facility] No Information Apr-0 8-200 8 Krishnasamy Tarik. [address] [place] [address] 102, [place], [address], [place]. tel:[phone] Office/outpat ient Visit, [facility], [address] [place] [address] [address], [place], [place], [id number], [place] tel:[phone] [facility] No Information Oct-1 6-200 7 Anitra Tubbs. [address], [address], [place], [place], [address], [place]. tel:[phone] Office/outpat ient Visit, [facility], [address], [place], [place], [address], [place] tel:[phone] [facility] No Information 7-200 7 Anitra Hernandezald. [address], [address], [place], [place], [address], [place]. tel:[phone] Family History Family Member Type Diagnosis Age At Onset No Information Payers Payer name Insurance type Covered republican ID Authoriza tizenia(s) [place] [id number] Social History Type Description Quantity Date Captured [...]
--- OUTSIDE RECORDS SUMMARY | 2024-06-21 11:30 | XMS_ITS | Clinical Summary ---
Author Organization [facility] Facility Address [address] [place] [address] Care Team Providers Care Field Marketing Manager Name Role Phone Unavailable Primary Care Provider Unavailabl e Allergies Active Allergy Reactions Criticality Noted Date Comments Cephalexin Other (see comments) 06/27/2020 Codeine Other (see comments) 06/27/2020 Morphine Other (see comments) 06/27/2020 Medications spironolactone (ALDACTONE) 25 MG tablet Take 1 tablet by mouth twice daily 180 tablet 3 4 Active amoxicillin-cla vulanate (Augmentin) 500-125 MG per tablet Take 1 tablet by mouth in the morning and 1 tablet in the evening. Do all this for 14 days. 28 tablet 5 05/25/19 25 Discontinue d(Reorder (does not appear on AVS)) amoxicillin-cla vulanate (Augmentin) 500-125 MG per tablet Take 1 tablet by mouth in the morning and 1 tablet in the evening. Do all this for 14 days. 28 tablet 5 06/09/19 25 Social History Tobacco Use Types Packs/Day Years [...]
--- OUTSIDE RECORDS SUMMARY | 2024-06-21 11:30 | XMS_ITS | Clinical Summary ---
Author Organization [facility] Address [address] [place] [address] Care Team Providers Care Jinrikisha Driver Name Role Phone Unavailable Primary Care Provider [...] d or Tdap) 09/08/2029 09/09/2019 PNEUMOCOCCAL VACCINE 50+ YEARS Completed 0 10/26/2020, 05/18/2016, 04/03/2016, Additional history exists ZOSTER VACCINE Completed 03/29/2022, 10/02, 04/03/2016 OSTEOPOROSIS SCREENING Completed 4, 08/09/2022, 08/07/2020 Insurance MEDICARE PART A AND B [facility]
--- OUTSIDE RECORDS SUMMARY | 2024-06-21 11:30 | XMS_ITS | Encounter Summary ---
Author Organization [facility] Health Address [address] [place] [place] [address] Care Team Providers Care Map Editor Name Role Phone Mervat Kelley JUNIOR DATABASE ADMINISTRATOR-BIAS MACHINE OPERATOR HELPER Primary Care Provider + Encounter Details Date Type Department Care Team (Late st Contact Info) Description 10/06/2022 Lab Requisition [facility] - Pathology Lab [address] [place] [address] Jesus Louis MD [address] [address] Illness, unspecified Social History Tobacco [...] Report Bone Marrow Patholog y Report Case: [id number] Authorizing Provider: Jesus Louis MD Collected: 10/05/2022 09:15 AM Ordering Location: [facility] Pathology Lab Received: 10/06/2022 01:27 PM Pathologist: Linda Hauser MD Specimens: A) - Bone Marrow Clot, Fluoro-guided bone marrow aspiration B) - Bone Marrow Core, Fluoro-guided bone marrow core bx 10/07/2022 1:40 PM CDT [facility] PATHOLOGY LAB Final Diagnosis Bone marrow, aspirate, clot section, and core biopsy: - 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 10/07/2022 1:40 PM CDT [facility] PATHOLOGY LAB Peripheral Smear Description CBC Data: WBC - 2.2, Hgb - 6.3, MCV - 122.4, MCHC - 31.2, and Platelets - 260. Leukocyte number: decreased. Granulocyte morphology: normal. Lymphocyte morphology: normal. Erythrocyte number: decreased. Erythrocyte morphology: macrocytic. Anisopoikilocytosis: mild. Polychromasia: mild. Platelet number: normal. Platelet morphology: normal. 10/07/2022 1:40 PM [facility] PATH[facility] LAB Bone Marrow Aspirate The aspirate [...] Control is appropriately reactive. 10/07/2022 1:40 PM [facility] Bone Marrow Core Biopsy and [...] an increased number of early erythroid progenitors. [id number] demonstrates additional, more mature erythroid lineage cells, confirming erythroid hyperplasia. Myeloperoxidase is positive in relatively fewer numbers of myeloid precursors. CD3 and CD20 show a normal number and distribution of T-cells and B-cells, respectively. Reticulin staining shows no significant marrow fibrosis (MF-0), and trichrome staining shows no collagen deposition. 10/07/2022 1:40 PM [facility] Flow Cytometry Summary Concurrent flow cytometry ([id number]) shows no evidence of non-Hodgkin lymphoma or high-grade myeloid neoplasm. 10/07/2022 1:40 PM [facility] PATH[facility] LAB Clinical History 82 year old woman with macrocytic anemia. 10/07/2022 1:40 PM [facility] PATH[facility] Materials Received Received are 22 slides and 3 blocks (A1, A2; B1) labeled [id number] along with a copy of the outside pathology report. The materials originate from [address] [facility], [place] [address]. All original materials are returned to the referring institution, along with a copy of our final report. 10/07/2022 1:40 PM CDT [facility] Pathologist Location at [facility] 10/07/2022 1:40 PM CDT [facility] PATH[facility] LAB Disclaimer The performance characteristics of all immunohistochemical and indirect immunofluorescence stains (if any) cited in this report were determined by the Histopathology Laboratory of [facility]. Some of these tests were developed by [...] Embedded Images 10/07/2022 1:40 PM CDT [facility] PATHOLOG[facility] LAB Pathology/Cytology BONE MARROW SPECIMEN / Unknown 10/05/2022 9:15 AM CDT 10/06/2022 1:27 PM CDT Miscellaneous samples (specimen) BONE MARROW SPECIMEN / Unknown 10/05/2022 9:15 AM CDT 10/06/2022 1:27 PM CDT Jesus Louis MD LAB - PATHOLOGY/CYTO LOGY ORDERABLES [facility] PATHOLOGY LAB [address] [phone] documented in this encounter Visit Diagnoses Diagnosis Illness, unspecified documented in this encounter Care Teams Map Editor Relationship Specialty Start Date End Date Mervat Kelley APRN-CNP [address] [address] PCP - General 11/24/21 documented as of this encounter
--- OUTSIDE RECORDS SUMMARY | 2024-06-21 11:30 | XMS_ITS | Encounter Summary ---
Author Organization [facility] Health Address [address] [place] [address] Care Team Providers Care Senior Education Specialist Name Role Phone Mervat Kelley MANAGER PRIMARY CARE-CAR WASHER Primary Care Provider + Encounter Details Date Type Department Care Team (Late st Contact Info) Description 10/05/2022 Lab Requisition [facility] - Pathology Lab [address] [place] [address] Jesus Louis MD [address] [address] Anemia, unspecified Social History Tobacco [...] AM CDT) Case Report Flow Cytometry Case: [id number] Authorizing Provider: Jesus Louis MD Collected: 10/05/2022 09:15 AM Ordering Location: [facility] Pathology Lab Received: 10/05/2022 02:15 PM Pathologist: Linda Hauser MD Specimen: Bone Marrow 10/05/2022 4:45 PM CDT [facility] PATH[facility] Final Diagnosis Bone marrow, flow cytometric immunophenotypic analysis: - No evidence of non-Hodgkin lymphoma or high-grade myeloid neoplasm. - See interpretation. 10/05/2022 4:45 PM CDT [facility] PATHOLOGY LAB Flow Cytometry Interpretation The bone marrow specimen has a viability of 85%. Within the lymphocyte gate, there is no monoclonal B-cell population identified (kappa:lambda ratio = 2.3:1). There is no expanded T-cell population seen. By CD34, 1.1% of all events analyzed are blasts. A bone marrow aspirate smear prepared from the flow cytometry specimen is reviewed for quality control head purposes. The bone marrow specimen shows no evidence of involvement by non-Hodgkin lymphoma or a high-grade myeloid neoplasm. Correlation with clinical findings, the concurrent bone marrow biopsy, and relevant cytogenetic/molecu lar studies is required. 10/05/2022 4:45 PM CDT [facility] PATHOLOGY LAB Flow Cytometry Results Differential Result Comment Flow Cell Count /uL 40,800 Total Viability % 85.0 Lymphocytes % 18 Dim CD45 Region % 9 Monocytes % 11 Granulocytes % 61 10/05/2022 4:45 PM CDT [facility] Reason for test Anemia, unspecified 285.9 10/05/2022 4:45 PM CDT [facility] PATH[facility] Client Specimen ID # [id number] 10/05/2022 4:45 PM CDT [facility] PATH[facility] LAB Number of markers 10 were performed. A-2 Flow CD10 A-3 Flow CD13 A-5 Flow CD20 A-1 Flow CD5 A-4 Flow CD19 A-6 Flow CD33 A-7 Flow CD34 A-8 Flow CD45 A-9 [place]+CD19+ A-10 Lambda+CD19+ 10/05/2022 4:45 PM CDT [facility] PATHOLOGY LAB Pathologist Location at [facility] 10/05/2022 4:45 PM CDT [facility] PATH[facility] LAB Disclaimer Test performed at [facility], [address] [place], [place], [address]. *The established laboratory minimum viability is 70%. [...] PATHOLOGY LAB Embedded Images 4:45 PM CDT [facility] PATH[facility] LAB Pathology/Cytolo gy BONE MARROW SPECIMEN / Unknown 10/05/2022 9:15 AM CDT 10/05/2022 2:15 PM CDT Jesus Louis MD LAB - PATHOLOGY/CYTO LOGY ORDERABLES [facility] PATH[facility] LAB [address] [facility]. [address] [phone] documented in this encounter Visit Diagnoses Diagnosis Anemia, unspecified documented in this encounter Care Teams Senior Education Specialist Relationship Specialty Start Date End Date Mervat Kelley APRN-DAVIS [address] [address] PCP - General 11/24/21 documented as of this encounter
== END 2024-06-21 10:21 | disposition home or self-care (01) ==
PROVIDERS: PCP Internal Medicine; Visit Provider Nurse Practitioner
DX: S92.352A Displaced fracture of fifth metatarsal bone, left foot, initial encounter for closed fracture (principal); X58.XXXA Exposure to other specified factors, initial encounter; M61.462 Other calcification of muscle, left lower leg; Z87.81 Personal history of (healed) traumatic fracture
CPT/HCPCS: 73600; 73620

== ENCOUNTER 2024-08-20 11:41 | Outpatient (CLI) | payer MEDICARE, SELFPAY ==
--- NOTE | ~2024-08-20 | MM_ITS ---
EXAMINATION: MM screening no BI w alayna HISTORY: Screening TECHNIQUE: Craniocaudal and mediolateral oblique 3-D tomosynthesis images were obtained and synthetic 2-D images were generated. CAD analysis was submitted and interpreted. COMPARISON: Comparison to multiple prior studies sequentially, with oldest reviewed study dated 10/2014. BREAST PARENCHYMAL COMPOSITION: Not dense: There are scattered areas of fibroglandular density. FINDINGS: There is no evidence of suspicious mass, calcification, or architectural distortion to sugg est malignancy in either breast. There has been no suspicious interval change. IMPRESSION: 1. No mammographic evidence of malignancy. 2. Recommend routine screening mammography in one year. BI-RADS Category 1: Negative Reviewed, dictated and finalized at location B.
--- OUTSIDE RECORDS SUMMARY | 2024-08-20 11:46 | XMS_ITS ---
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 Decitabine (D1-5) 28 Day Cycles - AML or MDS* Plan Start Date:11/26/2023 Plan Provider:Chalino Chapa MD Linked Problems MDS (myelodysplastic syndrom e) (HCC) Treatment Medications Current Day (Day 1 , Cycle 3 - Planned for 05/27/2024) Next Day (Day 2, Cycle 3 - Planned for 05/28/2024) decitabine (DACOGEN)decitabine (DACOGEN) IVPB decitabine (DACOGEN) 23.5 mg in sodium chloride 0.9% 100 mL IVPB decitabine (DACOGEN) 23.5 mg in sodium chloride 0.9% 100 mL IVPB Other Current Plans denosumab (PROLIA) Injection* Plan Start Date:08/08/2024 Plan Provider:Chalino Chapa MD Linked Problems Age-related osteoporosis wit hout current pathological fracture Treatment Medications No medications scheduled. IV Maintenance Therapy Plan & Alteplase (CATHFLO ACTIVASE) - orders for occluded catheters* Plan Start Date:11/28/2023 Plan Provider:Chalino Chapa MD Linked Problems Encounter for care related [...] (06/06/2018): Added automatically from request for surgery [id number]
--- OUTSIDE RECORDS SUMMARY | 2024-08-20 11:46 | XMS_ITS | Clinical Summary ---
Author Organization [facility] [address] Address [address] [place] [address] Care Team Providers Care Varnish Melter Name Role Phone ChelajenniferBryan eckertKimber DO Primary Care Provider [phone] Allergies Active Allergy Reactions Criticality Noted Date [...] 10 mg tabletIndicatio ns:MDS (myelodysplasti c syndrome) (HCC) Take 1 tablet (10 mg total) by mouth every 6 (six) hours as needed for nausea or vomiting 120 tablet 3 4 Active acyclovir (ZOVIRAX) 400 mg tabletIndicatio ns:MDS (myelodysplasti c syndrome) (HCC) Take 1 tablet (400 mg total) by [...] 1 tablet (75 mcg total) by mouth 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 30 tablet 4 Active oxyBUTYnin XL (DITROPAN-XL) 5 mg 24 hr tablet 4 Active ibuprofen 200 mg tab/cap Take 2 tablet/capsule (400 mg total) by mouth daily as needed for pain Active Active Problems Problem Noted Date Diagnosed [...] (06/06/2018): Added automatically from request for surgery [id number] Encounters Date Type Department Care Team Description 08/08/2024 10:30 AM CDT Clinical Support [address] [place] [phone] Age-related osteoporosis without current pathological fracture (Primary Dx); MDS (myelodysplastic syndrome) (HCC); Encounter for care related to Port-a-Cath 08/08/2024 10:15 AM CDT Office Visit [facility] [address] [place] [address] Office [facility] [address] [place] [address] Milla Armenta NP MDS (myelodysplastic syndrome) (HCC) (Primary Dx) 08/08/2024 9:45 AM CDT Lab [address] [place] [address] MDS (myelodysplastic syndrome) (HCC) 07/15/2024 10:30 AM CDT Office Visit [facility] [address] [place] [address] Office [facility] [address] [place] [address] Chalino Chapa MD MDS (myelodysplastic syndrome) (HCC) (Primary Dx) 07/15/2024 10:00 AM CDT Lab [address] [place] [address] MDS (myelodysplastic syndrome) (HCC) 07/12/2024 Documentation [facility] [address] [place] [address] Medical Office [facility] [address] [place] [address] Betty Sewell, ALBERT 06/20/2024 8:45 AM CDT Office Visit [facility] [address] [place] [address] Office [address] [place] [address] Milla Armenta NP MDS (myelodysplastic syndrome) (HCC) 06/20/2024 8:15 AM CDT Lab [address] [place] [address] MDS (myelodysplastic syndrome) (HCC) 06/20/2024 Orders Only [facility] [address] [place] [address] Medical Office [address] [place] [address] Chalino Chapa MD MDS (myelodysplastic syndrome) (HCC) (Primary Dx) 06/19/2024 Telephone [facility] [address] [place] [address] Office [address] [place] [address] Clau Cabral, CLT 06/03/2024 11:45 AM WATER QUALITY TECHNICIAN Lab [address] [place] [address] MDS (myelodysplastic syndrome) (HCC) 05/27/2024 10:00 AM WATER QUALITY TECHNICIAN Infusion [address] [place] [address] MDS (myelodysplastic syndrome) (HCC) 05/27/2024 9:30 AM WATER QUALITY TECHNICIAN Office Visit [facility] [address] [place] [address] Office [address] [place] [address] Chalino Chapa MD MDS (myelodysplastic syndrome) (HCC) (Primary Dx); Anemia, unspecified type; Thrush 05/27/2024 9:00 AM WATER QUALITY TECHNICIAN Lab [address] [place] [address] MDS (myelodysplastic syndrome) (HCC) 05/27/[address] [place] [address] Kelsey Zavala, ALBERT 05/24/2024 Telephone [facility] [address] [place] [address] Medical Office [address] [place] [address] Radha Veliz, ALBERT 05/24/2024 Telephone [facility] [address] [place] [address] Medical Office [address] [place] [phone] Clau Cabral CLT 05/24/2024 Telephone [facility] [address] [facility] Medical Office [address] [place] [phone] Radha Veliz RN 05/24/2024 Telephone [facility] [place] [address] [facility] [address] [place] [address] Chalino Chapa MD from Last 3 Months Immunizations Immunization Administration [...] Site/Laterality Comments HYSTERECTOMY partial HAND SURGERY Right 1995 ANKLE FRACTURE SURGERY Left Pins and wire [...] eft knee, current 06/06/2018 Added automatically from req uest for surgery [id number] PONV (postoperative nausea a nd vomiting) Anxiety [...] you have a drink containing alcohol? Never 08/08/2024 Q2: How many drinks containi ng alcohol do you have on a typical day when you are drinking? Patient does not drink Q3: How often do you have si x or more drinks on one occasion? Never 08/08/2024 Personal Safety Answer Date Recorded Have you ever been in or are you currently in a harmful physical or emotional relationship or is someone making you feel afraid or unsafe? Denies 12/11/2023 Comments Unknown Sex and Gender Information Value Date Recorded Sex Assigned at Not on file Legal Sex Female 1:43 AM WATER QUALITY TECHNICIAN Gender Identity Not on file Sexual Orientation Not on file Obstetrics History Last Filed Vital Signs Vital Sign Reading Time Taken Comments Blood Pressure 102/55 08/08/2024 10:22 AM CDT Pulse 82 08/08/2024 10:22 AM CDT Temperature 35.8 C (96.4 F) 08/08/2024 10:22 AM CDT Respiratory Rate 16 08/08/2024 10:22 AM CDT Oxygen Saturation 92% 08/08/2024 10:22 AM CDT Inhaled Oxygen Concentration - - Weight 66.9 kg (147 lb 6.4 oz) 08/08/2024 10:22 AM CDT Height 152.4 cm (5') 08/08/2024 10:22 AM CDT Body Mass Index 28.79 08/08/2024 10:22 AM CDT Plan of Treatment Health Maintenance Due Date Last Done Comments Depression Screening 1940 Osteoporosis Screening-Bone Density Scan 1941 Hepatitis B Screening 1959 Well Visit 65+ 2006 Covid-19 Vaccine (2023- 5 season) 2023 01/23/2022, 09/24/2021, 02/01/2021, Additional history exists Influenza Vaccine (Season Ended) 2024 03/14/2023, 01/07/2022, 01/15/2021, Additional history exists Fall Risk Assessment 04/30/2025 04/30/2024, 04/29/2024, 12/19/2023, Additional history exists DTaP/Tdap/Td Vaccine (2 - Td or Tdap) 09/08/2029 09/09/2019 Pneumococcal vaccine 65+ Completed 021, 05/18/2016, 04/03/2016, Additional history exists Zoster Vaccine Completed 03/29/2022, 10/02, 04/03/2016 Medical Devices Implanted Type Area Online Marketing Director Device Identifier Shelf Expiration Date Model / Serial / Lot Emre Chaparrita Powerport Mri Airguard 8fr 1 Lumen Attachable Catheter Latex Free [id number] - [id number] Implanted:Qty: 1 on 11/20/2023 by Shade Red MD at [facility] Right: Chest Emre Chaparrita 09/30/2024 [id number] / / [id number] Procedures Procedure Name Priority Date/Time Associated Diagnosis Comments EGFR Routine 08/08/2024 10:10 AM CDT MDS (myelodysplastic syndrome) (HCC) DIFFERENTIAL AUTO Routine 08/08/2024 10: 10 AM CDT CBC WITH AUTO DIFFERENTIAL Routine 08/08/2024 10:10 AM CDT COMPREHENSIVE METABOLIC PANEL Routine 08/08/2024 10:10 AM CDT MDS (myelodysplastic syndrome) (HCC) EGFR Routine 07/15/2024 10:10 AM CDT MDS (myelodysplastic syndrome) (HCC) DIFFERENTIAL AUTO Routine 07/15/2024 10: 10 AM CDT MDS (myelodysplastic syndrome) (HCC) CBC WITH AUTO DIFFERENTIAL Routine 07/15/2024 10:10 AM CDT MDS (myelodysplastic syndrome) (HCC) COMPREHENSIVE METABOLIC PANEL Routine 07/15/2024 10:10 AM CDT MDS (myelodysplastic syndrome) (HCC) EGFR Routine 06/20/2024 8:30 AM CDT MDS (myelodysplastic syndrome) (HCC) COMPREHENSIVE METABOLIC PANEL Routine 06/20/2024 8:30 AM CDT MDS (myelodysplastic syndrome) (HCC) DIFFERENTIAL AUTO Routine 06/20/2024 8:2 5 AM CDT MDS (myelodysplastic syndrome) (HCC) CBC WITH AUTO DIFFERENTIAL Routine 06/20/2024 8:25 AM CDT MDS (myelodysplastic syndrome) (HCC) MANUAL DIFFERENTIAL Routine 06/03/2024 1 1:25 AM WATER QUALITY TECHNICIAN MDS (myelodysplastic syndrome) (HCC) CBC WITH AUTO DIFFERENTIAL Routine 06/03/2024 11:25 AM WATER QUALITY TECHNICIAN MDS (myelodysplastic syndrome) (HCC) MANUAL DIFFERENTIAL Routine 05/27/2024 9 :10 AM WATER QUALITY TECHNICIAN MDS (myelodysplastic syndrome) (HCC) EGFR STAT 05/27/2024 9:10 AM WATER QUALITY TECHNICIAN MDS (myelodysplastic syndrome) (HCC) CBC WITH AUTO DIFFERENTIAL Routine 05/27/2024 9:10 AM WATER QUALITY TECHNICIAN MDS (myelodysplastic syndrome) (HCC) COMPREHENSIVE METABOLIC PANEL STAT 05/27/2024 9:10 AM WATER QUALITY TECHNICIAN MDS (myelodysplastic syndrome) (HCC) from Last 3 Months Results * eGFR (08/08/2024 10:10 AM CDT) eGFR >90 >=60 mL/min/1. 73 m2 Comment: [...] was last reviewed 2021. Testing performed by: [place], [address] Blood 08/08/2024 10:1 0 AM CDT 08/08/2024 10:42 AM CDT us Chalino Chapa MD LAB BLOOD ORDERABLES Aylin l Result [facility] ([place]) [facility] [place] [address] * (ABNORMAL) Differential, auto (08/08/2024 10:10 AM CDT) Neutrophil abs 1.01(L) 1.50 - 6.50 K/cumm Comment:Testing performed by : [place], [address] Imm gran abs 0.02 0.00 - 0.10 K/cumm [facility] ([place]) Comment:Testing performed by : [place], [address] Lymphocyte abs 0.98 0.80 - 3.30 K/cumm [facility] ([place]) Comment:Testing performed by : [place], [address] Monocyte abs 0.26 0.20 - 0.80 K/cumm [facility] ([place]) Comment:Testing performed by : [place], [address] Eosinophil abs 0.06 0.00 - 0.50 K/cumm [facility] ([place]) Comment:Testing performed by : [facility], [place], [address] Basophil abs 0.02 0.00 - 0.10 K/cumm [facility] ([place]) Comment:Testing performed by : [place], [address] Neutrophil pct 42.8 % [facility] ([place]) Comment: Interpretive Data Percent cell count reference ranges are not reported, since discordance with absolute values may lead to misinterpretation of CBC data. Current Interpretive Data was last revised on 2017. Testing performed by: [place], [address] Imm gran pct 0.9 % [facility] ([place]) Comment: Interpretive Data Percent cell count reference ranges are not reported, since discordance with absolute values may lead to misinterpretation of CBC data. Current Interpretive Data was last revised on 2017. Testing performed by: [facility], [place], [address] Lymphocyte pct 41.7 % [facility] ([place]) Comment: Interpretive Data Percent cell count reference ranges are not reported, since discordance with absolute values may lead to misinterpretation of CBC data. Current Interpretive Data was last revised on 2017. Testing performed by: [facility], [place], [address] Monocyte pct 11.1 % [facility] ([place]) Comment: Interpretive Data Percent cell count reference ranges are not reported, since discordance with absolute values may lead to misinterpretation of CBC data. Current Interpretive Data was last revised on 2017. Testing performed by: [facility], [place], [address] Eosinophil pct 2.6 % [facility] ([place]) Comment: Interpretive Data Percent cell count reference ranges are not reported, since discordance with absolute values may lead to misinterpretation of CBC data. Current Interpretive Data was last revised on 2017. Testing performed by: [place], [address] Basophil pct 0.9 % [facility] ([place]) Comment: Interpretive Data Percent cell count reference ranges are not reported, since discordance with absolute values may lead to misinterpretation of CBC data. Current Interpretive Data was last revised on 2017. Testing performed by: [place], [address] Blood 08/08/2024 10:1 0 AM CDT 08/08/2024 10:53 AM CDT us Chalino Chapa MD LAB BLOOD ORDERABLES Aylin freedman Result [facility] ([place]) 1 [facility] [place] [address] * (ABNORMAL) CBC with auto differential (08/08/2024 10:10 AM CDT) WBC 2.35(L) 3.80 - 9.90 K/cumm Comment:Testing performed by : [place], [address] Hgb 9.7(L) 11.9 - 15.5 g/dL [facility] ([place]) Comment:Testing performed by : [facility], [place], [address] Hct 29.5(L) 35.6 - 45.5 % [facility] ([place]) Comment:Testing performed by : [place], [address] Plt 155 150 - 400 K/cumm [facility] ([place]) Comment:Testing performed by : [place], [address] MPV 10.9 9.1 - 12.3 fL [facility] ([place]) Comment:Testing performed by : [place], [address] RBC 2.54(L) 3.90 - 5.20 M/cumm [facility] ([place]) Comment:Testing performed by : [place], [address] MCV 116.1(H) 81.3 - 96.4 fL [facility] ([place]) Comment:Testing performed by : [place], [address] MCH 38.2(H) 27.1 - 33.3 pg [facility] ([place]) Comment:Testing performed by : [facility], [place], [address] MCHC 32.9 32.3 - 35.7 g/dL [facility] ([place]) Comment:Testing performed by : [facility], [place], [address] RDW CV 14.6 11.1 - 14.9 % [facility] ([place]) Comment:Testing performed by : [facility], [place], [address] RDW SD 62.4(H) 35.7 - 48.1 fL [facility] ([place]) Comment:Testing performed by : [facility], [place], [place], NRBC abs 0.00 0.00 - 0.01 K/cumm [facility] ([place]) Comment:Testing performed by : [facility], [place], Blood 08/08/2024 10:1 0 AM CDT 08/08/2024 10:53 AM CDT us Chalino Chapa MD LAB BLOOD ORDERABLES Aylin l Result [facility] ([place]) [address] [place] [address] Department [place] [address] * (ABNORMAL) Comprehensive metabolic panel (08/08/2024 10:10 AM CDT) Sodium 142 135 - 145 mmol/L Comment:Testing performed by : [facility], [place], [place], Potassium, pl 4.6 3.3 - 4.9 mmol/L [facility] ([place]) Comment:Testing performed by : [facility], [place], [address] Chloride 104 97 - 110 mmol/L [facility] ([place]) Comment:Testing performed by : [facility], [place], [address] CO2 30 22 - 32 mmol/L [facility] ([place]) Comment:Testing performed by : [facility], [place], [address] Anion gap 9 2 - 15 mmol/L [facility] ([place]) Comment:Testing performed by : [facility], [place], [address] BUN 17 6 - 25 mg/dL [facility] ([place]) Comment:Testing performed by : [facility], [place], [address] Creatinine 0.55(L) 0.60 - 1.10 mg/dL [facility] ([place]) Comment:Testing performed by : [facility], [place], [address] Glucose 94 70 - 199 mg/dL [facility] ([place]) Comment: Interpretive Data Fasting glucose >/= 126 [...] was last revised 2022. Testing performed by: [place], [address] Calcium 9.2 8.5 - 10.3 mg/dL [facility] ([place]) Comment:Testing performed by : [place], [address] Bilirubin, total 0.5 0.1 - 1.2 mg/dL [facility] ([place]) Comment:Testing performed by : [place], [address] Protein, pl 6.5 6.5 - 8.5 g/dL [facility] ([place]) Comment:Testing performed by : [facility], [place], [address] Albumin 4.3 3.5 - 5.0 g/dL [facility] ([place]) Comment:Testing performed by : [place], [address] Alk phos 82 40 - 130 Units/L [facility] ([place]) Comment:Testing performed by : [facility], [place], [address] ALT 52(H) 7 - 45 Units/L [facility] ([place]) Comment:Testing performed by : [facility], [place], [address] AST 24 10 - 45 Units/L [facility] ([place]) Comment:Testing performed by : [facility], [place], [address] Blood 08/08/2024 10:1 0 AM CDT 08/08/2024 10:42 AM CDT us Chalino Chapa MD LAB BLOOD ORDERABLES Aylin l Result [facility] ([place]) [address] [place] [address] Department [place] [address] * eGFR (07/15/2024 10:10 AM CDT) eGFR >90 >=60 mL/min/1. 73 m2 Comment: [...] was last reviewed 2021. Testing performed by: [facility], [place], [address] Blood 07/15/2024 10:1 0 AM CDT 07/15/2024 10:47 AM CDT us Milla Armenta NP LAB BLOOD ORDERABLES Final Result [facility] ([place]) 1 [facility] [place] [address] * Differential, auto (07/15/2024 10:10 AM CDT) Neutrophil abs 1.60 1.50 - 6.50 K/cumm [facility] ([place]) Comment:Testing performed by : [facility] [address], Medical Office [facility] [address], [place] [address] Imm gran abs 0.01 0.00 - 0.10 K/cumm [facility] ([place]) Comment:Testing performed by : [facility] [address], Medical Office [facility] [address], [place] [address] Lymphocyte abs 1.01 0.80 - 3.30 K/cumm [facility] ([place]) Comment:Testing performed by : [facility] [address], Medical Office [facility] [address], [place] [address] Monocyte abs 0.27 0.20 - 0.80 K/cumm [facility] ([place]) Comment:Testing performed by : [facility] [address], Medical Office [facility] [address], [place] [address] Eosinophil abs 0.07 0.00 - 0.50 K/cumm [facility] ([place]) Comment:Testing performed by : [facility] [address], Medical Office [facility] [address], [place] [address] Basophil abs 0.02 0.00 - 0.10 K/cumm [facility] ([place]) Comment:Testing performed by : [facility] [address], Medical Office [facility] [address], [place] [address] Neutrophil pct 53.7 % [facility] ([place]) Comment: Interpretive Data Percent cell count reference ranges are not reported, since discordance with absolute values may lead to misinterpretation of CBC data. Current Interpretive Data was last revised on 2022. Testing performed by: [facility] [address], Medical Office [address], [place] [address] Imm gran pct 0.3 % [facility] ([place]) Comment: Interpretive Data Percent cell count reference ranges are not reported, since discordance with absolute values may lead to misinterpretation of CBC data. Current Interpretive Data was last revised on 2022. Testing performed by: [facility] [address], Medical Office [address], [place] [address] Lymphocyte pct 33.9 % [facility] ([place]) Comment: Interpretive Data Percent cell count reference ranges are not reported, since discordance with absolute values may lead to misinterpretation of CBC data. Current Interpretive Data was last revised on 2022. Testing performed by: [facility] [address], Medical Office [address], [place] [address] Monocyte pct 9.1 % [facility] ([place]) Comment: Interpretive Data Percent cell count reference ranges are not reported, since discordance with absolute values may lead to misinterpretation of CBC data. Current Interpretive Data was last revised on 2022. Testing performed by: [facility] [address], Medical Office [address], [place] [address] Eosinophil pct 2.3 % [facility] ([place]) Comment: Interpretive Data Percent cell count reference ranges are not reported, since discordance with absolute values may lead to misinterpretation of CBC data. Current Interpretive Data was last revised on 2022. Testing performed by: [facility] [address], Medical Office [address], [place] [address] Basophil pct 0.7 % [facility] ([place]) Comment: Interpretive Data Percent cell count reference ranges are not reported, since discordance with absolute values may lead to misinterpretation of CBC data. Current Interpretive Data was last revised on 2022. Testing performed by: [facility] [address], Medical Office [address], [place] [address] Blood 07/15/2024 10:1 0 AM CDT 07/15/2024 10:23 AM CDT us Milla Armenta CHARGER TESTER LAB BLOOD ORDERABLES Final Result [facility] ([place]) 1 [facility] [place] [address] * (ABNORMAL) CBC with auto differential (07/15/2024 10:10 AM CDT) WBC 2.98(L) 3.80 - 9.90 K/cumm [facility] ([place]) Comment:Testing performed by : [facility] [address], Medical Office [address], [place] [address] Hgb 10.7(L) 11.9 - 15.5 g/dL [facility] ([place]) Comment:Testing performed by : [facility] [address], Medical Office [facility] [address], [place] [address] Hct 33.0(L) 35.6 - 45.5 % [facility] ([place]) Comment:Testing performed by : [facility] [address], Medical Office [facility] [address], [place] [address] Plt 149(L) 150 - 400 K/cumm [facility] ([place]) Comment:Testing performed by : [facility] [address], Medical Office [facility] [address], [place] [address] MPV 10.7 9.1 - 12.3 fL [facility] ([place]) Comment:Testing performed by : [facility] [address], Medical Office [facility] [address], [place] [address] RBC 2.82(L) 3.90 - 5.20 M/cumm [facility] ([place]) Comment:Testing performed by : [facility] [address], Medical Office [facility] [address], [place] [address] MCV 117.0(H) 81.3 - 96.4 fL [facility] ([place]) Comment:Testing performed by : [facility] [address], Medical Office [address], [place] [address] MCH 37.9(H) 27.1 - 33.3 pg [facility] ([place]) Comment:Testing performed by : [facility] [address], Medical Office [address], [place] [address] MCHC 32.4 32.3 - 35.7 g/dL [facility] ([place]) Comment:Testing performed by : [facility] [address], Medical Office [address], [place] [address] RDW CV 16.8(H) 11.1 - 14.9 % [facility] ([place]) Comment:Testing performed by : [facility] [address], Medical Office [facility] [address], [place] [address] RDW SD 73.1(H) 35.7 - 48.1 fL [facility] ([place]) Comment:Testing performed by : [facility] [address], Medical Office [address], [place] [address] Blood 07/15/2024 10:1 0 AM CDT 07/15/2024 10:23 AM CDT us Milla Armenta CHARGER TESTER LAB BLOOD ORDERABLES Final Result [facility] ([place]) [address] [place] [address] [place] [address] * (ABNORMAL) Comprehensive metabolic panel (07/15/2024 10:10 AM CDT) Sodium 142 135 - 145 mmol/L Comment:Testing performed by : [facility], [place], [address] Potassium, pl 4.1 3.3 - 4.9 mmol/L [facility] ([place]) Comment:Testing performed by : [facility], [place], [address] Chloride 102 97 - 110 mmol/L [facility] ([place]) Comment:Testing performed by : [facility], [place], [address] CO2 29 22 - 32 mmol/L [facility] ([place]) Comment:Testing performed by : [facility], [place], [address] Anion gap 11 2 - 15 mmol/L [facility] ([place]) Comment:Testing performed by : [facility], [place], [address] BUN 13 6 - 25 mg/dL [facility] ([place]) Comment:Testing performed by : [facility], [place], [address] Creatinine 0.54(L) 0.60 - 1.10 mg/dL [facility] ([place]) Comment:Testing performed by : [place], [address] Glucose 126 70 - 199 mg/dL [facility] ([place]) [...] was last revised 2022. Testing performed by: [place], [address] Calcium 9.5 8.5 - 10.3 mg/dL [facility] ([place]) Comment:Testing performed by : [place], [address] Bilirubin, total 0.5 0.1 - 1.2 mg/dL [facility] ([place]) Comment:Testing performed by : [place], [address] Protein, pl 6.8 6.5 - 8.5 g/dL [facility] ([place]) Comment:Testing performed by : [place], [address] Albumin 4.4 3.5 - 5.0 g/dL [facility] ([place]) Comment:Testing performed by : [place], [address] Alk phos 90 40 - 130 Units/L [facility] ([place]) Comment:Testing performed by : [place], [address] ALT 51(H) 7 - 45 Units/L [facility] ([place]) Comment:Testing performed by : [facility], [place], [address] AST 24 10 - 45 Units/L [facility] ([place]) Comment:Testing performed by : [facility], [place], [address] Blood 07/15/2024 10:1 0 AM CDT 07/15/2024 10:47 AM CDT us Milla Armenta NP LAB BLOOD ORDERABLES Final Result Performing Organization Address City/[facility]/ZIP Co de Phone Number [facility] ([place]) [address] [place] [address] [place] [address] * eGFR (06/20/2024 8:30 AM CDT) eGFR 90 >=60 mL/min/1. 73 m2 Comment: [...] was last reviewed 2021. Testing performed by: [place], [address] Blood 06/20/2024 8:30 AM CDT 06/20/2024 8:46 AM CDT us Chalino Chapa MD LAB BLOOD ORDERABLES Aylin l Result Performing Organization Address City/[facility]/ZIP Co de Phone Number [facility] ([place]) [facility] [place] [address] * (ABNORMAL) Comprehensive metabolic panel (06/20/2024 8:30 AM CDT) Sodium 142 135 - 145 mmol/L Comment:Testing performed by : [facility], [facility], [place], [address] Potassium, pl 4.4 3.3 - 4.9 mmol/L [facility] ([place]) Comment:Testing performed by : [facility], [facility], [place], [address] Chloride 102 97 - 110 mmol/L [facility] ([place]) Comment:Testing performed by : [facility], [facility], [place], [address] CO2 31 22 - 32 mmol/L [facility] ([place]) Comment:Testing performed by : [facility], [facility], [place], [address] Anion gap 9 2 - 15 mmol/L [facility] ([place]) Comment:Testing performed by : [facility], [facility], [place], [address] BUN 13 6 - 25 mg/dL [facility] ([place]) Comment:Testing performed by : [facility], [place], [address] Creatinine 0.58(L) 0.60 - 1.10 mg/dL [facility] ([place]) Comment:Testing performed by : [facility], [place], [address] Glucose 134 70 - 199 mg/dL [facility] [...] was last revised 2022. Testing performed by: [facility], [facility], [place], [address] Calcium 9.7 8.5 - 10.3 mg/dL [facility] ([place]) Comment:Testing performed by : [facility], [place], [address] Bilirubin, total 0.5 0.1 - 1.2 mg/dL [facility] ([place]) Comment:Testing performed by : [facility], [facility], [place], [address] Protein, pl 6.6 6.5 - 8.5 g/dL [facility] ([place]) Comment:Testing performed by : [facility], [facility], [place], [address] Albumin 4.2 3.5 - 5.0 g/dL [facility] ([place]) Comment:Testing performed by : [facility], [facility], [place], [address] Alk phos 101 40 - 130 Units/L [facility] ([place]) Comment:Testing performed by : [facility], [facility], [place], [address] ALT 44 7 - 45 Units/L [facility] ([place]) Comment:Testing performed by : [facility], [place], [address] AST 25 10 - 45 Units/L [facility] ([place]) Comment:Testing performed by : [facility], [place], [address] Blood 06/20/2024 8:30 AM CDT 06/20/2024 8:46 AM CDT us Chalino Chapa MD LAB BLOOD ORDERABLES Aylin l Result [facility] ([place]) [facility] [place] [address] * (ABNORMAL) Differential, auto (06/20/2024 8:25 AM CDT) Neutrophil abs 1.3(L) 1.5 - 6.5 K/cumm Comment:Testing performed by : [facility] [address], Medical Office [address], [place] [address] Imm gran abs 0.0 0.0 - 0.1 K/cumm [facility] ([place]) Comment:Testing performed by : [facility] [address], Medical Office [address], [place] [address] Lymphocyte abs 0.9 0.8 - 3.3 K/cumm [facility] ([place]) Comment:Testing performed by : [facility] [address], Medical Office [facility] [address], [place] [address] Monocyte abs 0.3 0.2 - 0.8 K/cumm [facility] ([place]) Comment:Testing performed by : [facility] [address], Medical Office [facility] [address], [place] [address] Eosinophil abs 0.1 0.0 - 0.5 K/cumm [facility] ([place]) Comment:Testing performed by : [facility] [address], Medical Office [facility] [address], [place] [address] Basophil abs 0.0 0.0 - 0.1 K/cumm [facility] ([place]) Comment:Testing performed by : [facility] [address], Medical Office [facility] [address], [place] [address] Neutrophil pct 52.0 % [facility] ([place]) Comment: Interpretive Data Percent cell count reference ranges are not reported, since discordance with absolute values may lead to misinterpretation of CBC data. Current Interpretive Data was last revised on 2022. Testing performed by: [facility] [address], Medical Office [facility] [address], [place] [address] Imm gran pct 0.4 % [facility] ([place]) Comment: Interpretive Data Percent cell count reference ranges are not reported, since discordance with absolute values may lead to misinterpretation of CBC data. Current Interpretive Data was last revised on 2022. Testing performed by: [facility] [address], Medical Office [facility] [address], [place] [address] Lymphocyte pct 34.6 % [facility] ([place]) Comment: Interpretive Data Percent cell count reference ranges are not reported, since discordance with absolute values may lead to misinterpretation of CBC data. Current Interpretive Data was last revised on 2022. Testing performed by: [facility] [address], Medical Office [facility] [address], [place] [address] Monocyte pct 10.2 % [facility] ([place]) Comment: Interpretive Data Percent cell count reference ranges are not reported, since discordance with absolute values may lead to misinterpretation of CBC data. Current Interpretive Data was last revised on 2022. Testing performed by: [facility] [address], Medical Office [facility] [address], [place] [address] Eosinophil pct 2.0 % [facility] ([place]) Comment: Interpretive Data Percent cell count reference ranges are not reported, since discordance with absolute values may lead to misinterpretation of CBC data. Current Interpretive Data was last revised on 2022. Testing performed by: [facility] [address], Medical Office [facility] [address], [place] [address] Basophil pct 0.8 % [facility] ([place]) Comment: Interpretive Data Percent cell count reference ranges are not reported, since discordance with absolute values may lead to misinterpretation of CBC data. Current Interpretive Data was last revised on 2022. Testing performed by: [facility] [address], Medical Office [facility] [address], [place] [address] Blood 06/20/2024 8:25 AM CDT 06/20/2024 8:29 AM CDT us Chalino Chapa MD LAB BLOOD ORDERABLES Aylin l Result [facility] ([place]) [facility] [place] [address] * (ABNORMAL) CBC with auto differential (06/20/2024 8:25 AM CDT) WBC 2.5(L) 3.8 - 9.9 K/cumm Comment:Testing performed by : [facility] [address], Medical Office [facility] [address], [place] [address] Hgb 9.7(L) 11.9 - 15.5 g/dL [facility] ([place]) Comment:Testing performed by : [facility] [address], Medical Office [facility] [address], [place] [address] Hct 31.1(L) 35.6 - 45.5 % [facility] ([place]) Comment:Testing performed by : [facility] [address], Medical Office [facility] [address], [place] [address] Plt 162 150 - 400 K/cumm [facility] ([place]) Comment:Testing performed by : [facility] [address], Medical Office [facility] [address], [place] [address] MPV 11.3 9.1 - 12.3 fL [facility] ([place]) Comment:Testing performed by : [facility] [address], Medical Office [facility] [address], [place] [address] RBC 2.65(L) 3.90 - 5.20 M/cumm [facility] ([place]) Comment:Testing performed by : [facility] [address], Medical Office [facility] [address], [place] [address] MCV 117.4(H) 81.3 - 96.4 fL [facility] ([place]) Comment:Testing performed by : [facility] [address], Medical Office [facility] [address], [place] [address] MCH 36.6(H) 27.1 - 33.3 pg [facility] ([place]) Comment:Testing performed by : [facility] [address], Medical Office [facility] [address], [place] [address] MCHC 31.2(L) 32.3 - 35.7 g/dL [facility] ([place]) Comment:Testing performed by : [facility] [address], Medical Office [facility] [address], [place] [address] RDW CV 21.5(H) 11.1 - 14.9 % [facility] ([place]) Comment:Testing performed by : [facility] [address], Medical Office [facility] [address], [place] [address] RDW SD 93.1(H) 35.7 - 48.1 fL [facility] ([place]) Comment:Testing performed by : [facility] [address], Medical Office [facility] [address], [place] [address] NRBC abs Not Measured 0.00 - 0.01 K/cumm [facility] ([place]) Comment:Testing performed by : [facility] [address], Medical Office [facility] [address], [place] [address] Blood 06/20/2024 8:25 AM CDT 06/20/2024 8:29 AM CDT us Chalino Chapa MD LAB BLOOD ORDERABLES Aylin freedman Result [facility] ([place]) [address] [place] [address] [place] [address] * (ABNORMAL) CBC with auto differential (06/03/2024 11:25 AM WATER QUALITY TECHNICIAN) WBC 2.2(L) 3.8 - 9.9 K/cumm Comment:Testing performed by : [place], [address] Hgb 8.4(L) 11.9 - 15.5 g/dL [facility] ([place]) Comment:Testing performed by : [place], [address] Hct 26.0(L) 35.6 - 45.5 % [facility] ([place]) Comment:Testing performed by : [place], [address] Plt 189 150 - 400 K/cumm [facility] ([place]) Comment:Testing performed by : [place], [address] MPV 11.8 9.1 - 12.3 fL [facility] ([place]) Comment:Testing performed by : [place], [address] RBC 2.37(L) 3.90 - 5.20 M/cumm [facility] ([place]) Comment:Testing performed by : [place], [address] MCV 109.7(H) 81.3 - 96.4 fL [facility] ([place]) Comment:Testing performed by : [place], [address] MCH 35.4(H) 27.1 - 33.3 pg [facility] ([place]) Comment:Testing performed by : [place], [address] MCHC 32.3 32.3 - 35.7 g/dL [facility] ([place]) Comment:Testing performed by : [place], [address] RDW CV 19.7(H) 11.1 - 14.9 % [facility] ([place]) Comment:Testing performed by : [facility], [place], [address] RDW SD 76.7(H) 35.7 - 48.1 fL [facility] ([place]) Comment:Testing performed by : [facility], [place], [address] NRBC abs Not Measured 0.00 - 0.01 K/cumm [facility] ([place]) Comment:Testing performed by : [facility], [place], [address] Blood 06/03/2024 11:2 5 AM WATER QUALITY TECHNICIAN 06/03/2024 11:28 AM WATER QUALITY TECHNICIAN us Chalino Chapa MD LAB BLOOD ORDERABLES Aylin freedman Result [facility] ([place]) 1 [facility] Department [place] [address] * (ABNORMAL) Manual Differential (06/03/2024 11:25 AM WATER QUALITY TECHNICIAN) Differential Manual Comment:Testing performed by : [place], [address] Cells Counted 100 [facility] ([place]) Comment:Testing performed by : [facility], [place], [address] Neutrophil abs 0.7(L) 1.5 - 6.5 K/cumm [facility] ([place]) Comment:Testing performed by : [facility], [place], [address] Lymphocyte abs 1.3 0.8 - 3.3 K/cumm [facility] ([place]) Comment:Testing performed by : [facility], [place], [address] Monocyte abs 0.2 0.2 - 0.8 K/cumm [facility] ([place]) Comment:Testing performed by : [facility], [place], [address] Eosinophil abs 0.0 0.0 - 0.5 K/cumm [facility] ([place]) Comment:Testing performed by : [facility], [place], [address] Neutrophil pct 31.0 % [facility] ([place]) Comment: Interpretive Data Percent cell count reference ranges are not reported, since discordance with absolute values may lead to misinterpretation of CBC data. Current Interpretive Data was last revised on 2017. Testing performed by: [place], [address] Lymphocyte pct 59.0 % [facility] ([place]) Comment: Interpretive Data Percent cell count reference ranges are not reported, since discordance with absolute values may lead to misinterpretation of CBC data. Current Interpretive Data was last revised on 2017. Testing performed by: [place], [address] Monocyte pct 9.0 % [facility] ([place]) Comment: Interpretive Data Percent cell count reference ranges are not reported, since discordance with absolute values may lead to misinterpretation of CBC data. Current Interpretive Data was last revised on 2017. Testing performed by: [facility], [place], [address] Eosinophil pct 1.0 % [facility] ([place]) Comment: Interpretive Data Percent cell count reference ranges are not reported, since discordance with absolute values may lead to misinterpretation of CBC data. Current Interpretive Data was last revised on 2017. Testing performed by: [facility], [place], [address] RBC morphology Consistent with RBC Indicies [facility] ([place]) Comment:Testing performed by : [place], [address] Platelet estimate Automated Count Confirmed [facility] ([place]) Comment:Testing performed by : [place], [address] Blood 06/03/2024 11:2 5 AM WATER QUALITY TECHNICIAN 06/03/2024 11:28 AM WATER QUALITY TECHNICIAN us Chalino Chapa MD LAB BLOOD ORDERABLES Aylin freedman Result [facility] ([place]) [address] [place] [address] [place] [address] * eGFR (05/27/2024 9:10 AM WATER QUALITY TECHNICIAN) eGFR 90 >=60 mL/min/1. 73 m2 [...] was last reviewed 2021. Testing performed by: [facility], [facility], [place], [address] Blood 05/27/2024 9:10 AM WATER QUALITY TECHNICIAN 05/27/2024 9:24 AM WATER QUALITY TECHNICIAN us Milla Armenta CHARGER TESTER LAB BLOOD ORDERABLES Final Result [facility] ([place]) 1 [facility] [place] [address] * (ABNORMAL) CBC with auto differential (05/27/2024 9:10 AM WATER QUALITY TECHNICIAN) Pathologist [facility] [place] WBC 0.7(C) 3.8 - 9.9 K/cumm Comment: Critical result called to and read back by KELSEY ZAVALA on 05 27 2024 at 0932 to Betty Douglas. Testing performed by: [facility] [address], Medical Office [facility] [address], [place] [address] Hgb 7.8(L) 11.9 - 15.5 g/dL [facility] ([place]) Comment:Testing performed by : [facility] [address], Medical Office [facility] [address], [place] [address] Hct 24.3(L) 35.6 - 45.5 % [facility] ([place]) Comment:Testing performed by : [facility] [address], Medical Office [facility] [address], [place] [address] Plt 325 150 - 400 K/cumm [facility] ([place]) Comment:Testing performed by : [facility] [address], Medical Office [facility] [address], [place] [address] MPV 10.7 9.1 - 12.3 fL [facility] ([place]) Comment:Testing performed by : [facility] [address], Medical Office [facility] [address], [place] [address] RBC 2.24(L) 3.90 - 5.20 M/cumm [facility] ([place]) Comment:Testing performed by : [facility] [address], Medical Office [facility] [address], [place] [address] MCV 108.5(H) 81.3 - 96.4 fL [facility] ([place]) Comment:Testing performed by : [facility] [address], Medical Office [facility] [address], [place] [address] MCH 34.8(H) 27.1 - 33.3 pg [facility] ([place]) Comment:Testing performed by : [facility] [address], Medical Office [facility] [address], [place] [address] MCHC 32.1(L) 32.3 - 35.7 g/dL [facility] ([place]) Comment:Testing performed by : [facility] [address], Medical Office [facility] [address], [place] [address] RDW CV 18.0(H) 11.1 - 14.9 % [facility] ([place]) Comment:Testing performed by : [facility] [address], Medical Office [facility] [address], [place] [address] RDW SD 69.7(H) 35.7 - 48.1 fL [facility] ([place]) Comment:Testing performed by : [facility] [address], Medical Office [facility] [address], [place] [address] NRBC abs 0.00 0.00 - 0.01 K/cumm [facility] ([place]) Comment:Testing performed by : [facility], [facility], [place], [address] Blood 05/27/2024 9:10 AM WATER QUALITY TECHNICIAN 05/27/2024 9:14 AM WATER QUALITY TECHNICIAN us Chalino Chapa MD LAB BLOOD ORDERABLES Edit ed Result - Final [facility] ([place]) [facility] [place] [address] * (ABNORMAL) Manual Differential (05/27/2024 9:10 AM WATER QUALITY TECHNICIAN) Differential Manual Comment:Testing performed by : [facility], [place], [address] Cells Counted 100 [facility] ([place]) Comment:Testing performed by : [facility], [place], [address] Neutrophil abs 0.0(L) 1.5 - 6.5 K/cumm [facility] ([place]) Comment:Testing performed by : [facility], [place], [address] Imm gran abs 0.0 0.0 - 0.1 K/cumm [facility] ([place]) Comment:Testing performed by : [facility], [place], [address] Lymphocyte abs 0.6(L) 0.8 - 3.3 K/cumm [facility] ([place]) Comment:Testing performed by : [facility], [place], [address] Monocyte abs 0.0(L) 0.2 - 0.8 K/cumm [facility] ([place]) Comment:Testing performed by : [place], [address] Neutrophil pct 7.0 % [facility] ([place]) Comment: Interpretive Data Percent cell count reference ranges are not reported, since discordance with absolute values may lead to misinterpretation of CBC data. Current Interpretive Data was last revised on 2017. Testing performed by: [facility], [place], [address] Lymphocyte pct 69.0 % [facility] ([place]) Comment: Interpretive Data Percent cell count reference ranges are not reported, since discordance with absolute values may lead to misinterpretation of CBC data. Current Interpretive Data was last revised on 2017. Testing performed by: [facility], [place], [address] Monocyte pct 6.0 % [facility] ([place]) Comment: Interpretive Data Percent cell count reference ranges are not reported, since discordance with absolute values may lead to misinterpretation of CBC data. Current Interpretive Data was last revised on 2017. Testing performed by: [facility], [facility], [place], [address] Variant lymph pct 18.0(H) 0.0 - 0.0 % [facility] ([place]) Comment:Testing performed by : [facility], [place], [address] Platelet morphology Normal [facility] ([place]) Comment:Testing performed by : [facility], [place], [address] Blood 05/27/2024 9:10 AM WATER QUALITY TECHNICIAN 05/27/2024 9:24 AM WATER QUALITY TECHNICIAN us Chalino Chapa MD LAB BLOOD ORDERABLES Edit ed Result - Final [facility] ([place]) [facility] [place] [address] * (ABNORMAL) Comprehensive metabolic panel (05/27/2024 9:10 AM WATER QUALITY TECHNICIAN) Sodium 140 135 - 145 mmol/L Comment:Testing performed by : [facility], [place], [address] Potassium, pl 4.1 3.3 - 4.9 mmol/L [facility] ([place]) Comment:Testing performed by : [facility], [place], [address] Chloride 101 97 - 110 mmol/L [facility] ([place]) Comment:Testing performed by : [facility], [place], [address] CO2 30 22 - 32 mmol/L [facility] ([place]) Comment:Testing performed by : [facility], [place], [address] Anion gap 10 2 - 15 mmol/L [facility] ([place]) Comment:Testing performed by : [facility], [place], [address] BUN 17 6 - 25 mg/dL [facility] ([place]) Comment:Testing performed by : [facility], [place], [address] Creatinine 0.58(L) 0.60 - 1.10 mg/dL [facility] ([place]) Comment:Testing performed by : [facility], [place], [address] Glucose 137 70 - 199 mg/dL [facility] ([place]) Comment: Interpretive Data Fasting glucose >/= 126 [...] was last revised 2022. Testing performed by: [place], [address] Calcium 9.3 8.5 - 10.3 mg/dL [facility] ([place]) Comment:Testing performed by : [place], [address] Bilirubin, total 0.5 0.1 - 1.2 mg/dL [facility] ([place]) Comment:Testing performed by : [place], [address] Protein, pl 6.9 6.5 - 8.5 g/dL [facility] ([place]) Comment:Testing performed by : [facility], [place], [address] Albumin 4.1 3.5 - 5.0 g/dL [facility] ([place]) Comment:Testing performed by : [place], [address] Alk phos 74 40 - 130 Units/L [facility] ([place]) Comment:Testing performed by : [place], [address] ALT 40 7 - 45 Units/L [facility] ([place]) Comment:Testing performed by : [facility], [facility], [place], [address] AST 25 10 - 45 Units/L [facility] ([place]) Comment:Testing performed by : [facility], [facility], [place], [address] Blood 05/27/2024 9:10 AM WATER QUALITY TECHNICIAN 05/27/2024 9:24 AM WATER QUALITY TECHNICIAN us Milla Armenta CHARGER TESTER LAB BLOOD ORDERABLES Final Result Performing Organization Address City/State/[facility] Co de Phone Number [facility] ([place]) [facility] [place] [address] from Last 3 Months Insurance MEDICARE MEDICARE [facility] MEDICARE SUPPLEMENT MEDICARE [facility] MEDICARE SUPPLEMENT Advance Directives For more information, please contact: [phone] Documents on File Type Date Recorded Patient Curtain Stretcher Assembler Expl anation ADVANCE DIRECTIVE 12/20/2023 8:01 AM Power of Silver Designer-Medical * Full Code (Latest Code Status on File) Date Activated Date Inactivated Comments 12/11/2023 12:19 PM 12/19/2023 6:45 PM Care Teams Varnish Melter Relationship Specialty Start Date End Date Bryan Davey DO PCP - General Internal Medicine 11/14/23
--- OUTSIDE RECORDS SUMMARY | 2024-08-20 11:46 | XMS_ITS | Referral Summary ---
Author Organization [facility] Building B Address [address] [place] [address] Care Team Providers Care Table Assembler Metal Name Role Phone Bryan Davey DO Primary Care Provider [phone]- [phone] Encounters Date Type Department Care Team Description 08/08/2024 10:30 AM CDT Clinical Support [address] [address] Age-related osteoporosis without current pathological fracture (Primary Dx); MDS (myelodysplastic syndrome) (HCC); Encounter for care related to Port-a-Cath 08/08/2024 9:45 AM CDT Lab [address] [address] MDS (myelodysplastic syndrome) (HCC) 08/08/2024 10:15 AM CDT Office Visit [facility] [address] [place] [address] Medical Office [facility] [address] [place] [address] Milla Armenta, CLAUDIA MDS (myelodysplastic syndrome) (HCC) (Primary Dx) 07/15/2024 10:00 AM CDT Lab [address] [place] [address] MDS (myelodysplastic syndrome) (HCC) 07/15/2024 10:30 AM CDT Office Visit [facility] [address] [place] [address] Medical Office [address] [place] [address] Chalino Chapa MD MDS (myelodysplastic syndrome) (HCC) (Primary Dx) 07/12/2024 Documentation [facility] [address] [place] [address] Office [facility] [address] [place] [address] Betty Sewell, ALBERT 06/20/2024 Orders Only [facility] [address] [place] [address] Office [facility] [address] [place] [address] Chalino Chapa MD MDS (myelodysplastic syndrome) (HCC) (Primary Dx) 06/20/2024 8:15 AM CDT Lab [address] [place] [address] MDS (myelodysplastic syndrome) (HCC) 06/20/2024 8:45 AM CDT Office Visit [facility] [address] [place] [address] Office [facility] [address] [place] [address] Milla Armenta, CLAUDIA MDS (myelodysplastic syndrome) (HCC) 06/19/2024 Telephone [facility] [address] [place] [address] Office [facility] [address] [place] [address] Clau Cabral CLT 06/03/2024 11:45 AM SILVICULTURE PROFESSOR Lab [address] [place] [address] MDS (myelodysplastic syndrome) (HCC) 05/27/[address] [place] [address] Kelsey Zavala RN 05/27/2024 9:00 AM SILVICULTURE PROFESSOR Lab [address] [place] [address] MDS (myelodysplastic syndrome) (HCC) 05/27/2024 10:00 AM SILVICULTURE PROFESSOR Infusion [address] [place] [address] MDS (myelodysplastic syndrome) (HCC) 05/27/2024 9:30 AM SILVICULTURE PROFESSOR Office Visit [facility] [address] [place] [address] Medical Office [facility] [address] [place] [address] Chalino Chapa MD MDS (myelodysplastic syndrome) (HCC) (Primary Dx); Anemia, unspecified type; Thrush 05/24/2024 Telephone [facility] [address] [place] [address] Office [facility] [address] [place] [address] Radha Veliz, RN 05/24/2024 Telephone [facility] [address] [place] [address] Office [facility] [address] [place] [address] Clau Cabral CLT 05/24/2024 Telephone [facility] [address] [place] [address] Office [facility] [address] [place] [address] Radha Veliz, ALBERT 05/24/2024 Telephone [facility] [address] [facility] [address] [place] [address] Chalino Chapa MD from Last 3 Months Allergies Active Allergy [...] 1 tablet (75 mcg total) 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 30 tablet 4 Active [...] (06/06/2018): Added automatically from request for surgery [id number] Immunizations Immunization Administration Dates Next Due Influenza, [...] on file Legal Sex Female 1:43 AM SILVICULTURE PROFESSOR Gender Identity Not on file Sexual Orientation [...] 08/08/2024 10:22 AM CDT Plan of Treatment Not on file Medical Devices Implanted Type Area Straw Hat Machine Operator Device Identifier Shelf Expiration Date Model / Serial / Lot Emre Bighorn Powerport Mri Airguard 8fr 1 Lumen Attachable Catheter Latex Free [id number] - [id number] Implanted:Qty: 1 on 11/20/2023 by Shade Red MD at [facility] Right: Chest Emre Bighorn 09/30/2024 [id number] / / [id number] Procedures Procedure Name Priority Date/Time Associated Diagnosis [...] MANUAL DIFFERENTIAL Routine 06/03/2024 1 1:25 AM SILVICULTURE PROFESSOR MDS (myelodysplastic syndrome) (HCC) CBC WITH AUTO DIFFERENTIAL Routine 06/03/2024 11:25 AM SILVICULTURE PROFESSOR MDS (myelodysplastic syndrome) (HCC) MANUAL DIFFERENTIAL Routine 05/27/2024 9 :10 AM SILVICULTURE PROFESSOR MDS (myelodysplastic syndrome) (HCC) EGFR STAT 05/27/2024 9:10 AM SILVICULTURE PROFESSOR MDS (myelodysplastic syndrome) (HCC) CBC WITH AUTO DIFFERENTIAL Routine 05/27/2024 9:10 AM SILVICULTURE PROFESSOR MDS (myelodysplastic syndrome) (HCC) COMPREHENSIVE METABOLIC PANEL STAT 05/27/2024 9:10 AM SILVICULTURE PROFESSOR MDS (myelodysplastic syndrome) (HCC) from Last 3 Months Results * eGFR (08/08/2024 10:10 AM CDT) [facility] eGFR >90 >=60 mL/min/1. 73 m2 Comment: [...] was last reviewed 2021. Testing performed by: [place], [address] Blood 08/08/2024 10:1 0 AM CDT 08/08/2024 10:42 AM CDT us Chalino Chapa MD LAB BLOOD ORDERABLES Aylin l Result [facility] ([place]) 1 [facility] [place] [address] * (ABNORMAL) Differential, auto (08/08/2024 10:10 AM CDT) Neutrophil abs 1.01(L) 1.50 - 6.50 K/cumm Comment:Testing performed by : [facility], [place], [address] Imm gran abs 0.02 0.00 - 0.10 K/cumm [facility] ([place]) Comment:Testing performed by : [place], [address] Lymphocyte abs 0.98 0.80 - 3.30 K/cumm [facility] ([place]) Comment:Testing performed by : [facility], [place], [address] Monocyte abs 0.26 0.20 - 0.80 K/cumm [facility] ([place]) Comment:Testing performed by : [facility], [facility], [place], [address] Eosinophil abs 0.06 0.00 - 0.50 K/cumm [facility] ([place]) Comment:Testing performed by : [facility], [facility], [place], [address] Basophil abs 0.02 0.00 - 0.10 K/cumm [facility] ([place]) Comment:Testing performed by : [place], [address] Neutrophil pct 42.8 % [facility] ([place]) Comment: Interpretive Data Percent cell count reference ranges are not reported, since discordance with absolute values may lead to misinterpretation of CBC data. Current Interpretive Data was last revised on 2017. Testing performed by: [place], [address] Imm gran pct 0.9 % [facility] ([place]) Comment: Interpretive Data Percent cell count reference ranges are not reported, since discordance with absolute values may lead to misinterpretation of CBC data. Current Interpretive Data was last revised on 2017. Testing performed by: [place], [address] Lymphocyte pct 41.7 % [facility] ([place]) Comment: Interpretive Data Percent cell count reference ranges are not reported, since discordance with absolute values may lead to misinterpretation of CBC data. Current Interpretive Data was last revised on 2017. Testing performed by: [place], [address] Monocyte pct 11.1 % [facility] ([place]) Comment: Interpretive Data Percent cell count reference ranges are not reported, since discordance with absolute values may lead to misinterpretation of CBC data. Current Interpretive Data was last revised on 2017. Testing performed by: [place], [address] Eosinophil pct 2.6 % [facility] ([place]) Comment: Interpretive Data Percent cell count reference ranges are not reported, since discordance with absolute values may lead to misinterpretation of CBC data. Current Interpretive Data was last revised on 2017. Testing performed by: [place], [address] Basophil pct 0.9 % [facility] ([place]) Comment: Interpretive Data Percent cell count reference ranges are not reported, since discordance with absolute values may lead to misinterpretation of CBC data. Current Interpretive Data was last revised on 2017. Testing performed by: [facility], [place], [address] Blood 08/08/2024 10:1 0 AM CDT 08/08/2024 10:53 AM CDT us Chalino Chapa MD LAB BLOOD ORDERABLES Aylin freedman Result [facility] ([place]) 1 [facility] Department [place] [address] * (ABNORMAL) CBC with auto differential (08/08/2024 10:10 AM CDT) WBC 2.35(L) 3.80 - 9.90 K/cumm Comment:Testing performed by : [place], [address] Hgb 9.7(L) 11.9 - 15.5 g/dL [facility] ([place]) Comment:Testing performed by : [place], [address] Hct 29.5(L) 35.6 - 45.5 % [facility] ([place]) Comment:Testing performed by : [place], [address] Plt 155 150 - 400 K/cumm [facility] ([place]) Comment:Testing performed by : [place], [address] MPV 10.9 9.1 - 12.3 fL [facility] ([place]) Comment:Testing performed by : [place], [address] RBC 2.54(L) 3.90 - 5.20 M/cumm [facility] ([place]) Comment:Testing performed by : [place], [address] MCV 116.1(H) 81.3 - 96.4 fL [facility] ([place]) Comment:Testing performed by : [facility], [facility], [place], [address] MCH 38.2(H) 27.1 - 33.3 pg [facility] ([place]) Comment:Testing performed by : [facility], [place], [address] MCHC 32.9 32.3 - 35.7 g/dL [facility] ([place]) Comment:Testing performed by : [facility], [place], [address] RDW CV 14.6 11.1 - 14.9 % [facility] ([place]) Comment:Testing performed by : [facility], [place], [address] RDW SD 62.4(H) 35.7 - 48.1 fL [facility] ([place]) Comment:Testing performed by : [facility], [place], [address] NRBC abs 0.00 0.00 - 0.01 K/cumm [facility] ([place]) Comment:Testing performed by : [facility], [place], [address] Blood 08/08/2024 10:1 0 AM CDT 08/08/2024 10:53 AM CDT Chalino Chapa MD LAB BLOOD ORDERABLES Aylin freedman Result [facility] ([place]) 1 [facility] Department [place] [address] * (ABNORMAL) Comprehensive metabolic panel (08/08/2024 10:10 AM CDT) Sodium 142 135 - 145 mmol/L Comment:Testing performed by : [facility], [place], [address] Potassium, pl 4.6 3.3 - 4.9 mmol/L [facility] ([place]) Comment:Testing performed by : [facility], [place], [address] Chloride 104 97 - 110 mmol/L [facility] ([place]) Comment:Testing performed by : [facility], [place], [address] CO2 30 22 - 32 mmol/L [facility] ([place]) Comment:Testing performed by : [facility], [facility], [place], [address] Anion gap 9 2 - 15 mmol/L [facility] ([place]) Comment:Testing performed by : [facility], [facility], [place], [address] BUN 17 6 - 25 mg/dL [facility] ([place]) Comment:Testing performed by : [facility], [place], [address] Creatinine 0.55(L) 0.60 - 1.10 mg/dL [facility] ([place]) Comment:Testing performed by : [facility], [place], [address] Glucose 94 70 - 199 mg/dL [facility] ([place]) Comment: Interpretive Data Fasting glucose >/= 126 [...] was last revised 2022. Testing performed by: [facility], [place], [address] Calcium 9.2 8.5 - 10.3 mg/dL [facility] ([place]) Comment:Testing performed by : [facility], [place], [address] Bilirubin, total 0.5 0.1 - 1.2 mg/dL [facility] ([place]) Comment:Testing performed by : [facility], [place], [address] Protein, pl 6.5 6.5 - 8.5 g/dL [facility] ([place]) Comment:Testing performed by : [facility], [place], [address] Albumin 4.3 3.5 - 5.0 g/dL [facility] ([place]) Comment:Testing performed by : [facility], [place], [address] Alk phos 82 40 - 130 Units/L [facility] ([place]) Comment:Testing performed by : [facility], [facility], [place], [address] ALT 52(H) 7 - 45 Units/L [facility] ([place]) Comment:Testing performed by : [facility], [facility], [place], [address] AST 24 10 - 45 Units/L [facility] ([place]) Comment:Testing performed by : [facility], [facility], [place], [address] Blood 08/08/2024 10:1 0 AM CDT 08/08/2024 10:42 AM CDT us Chalino Chapa MD LAB BLOOD ORDERABLES Aylin freedman Result [facility] ([place]) 1 [facility] Department [place] [address] * eGFR (07/15/2024 10:10 AM CDT) eGFR [...] was last reviewed 2021. Testing performed by: [facility], [facility], [place], [address] Blood 07/15/2024 10:1 0 AM CDT 07/15/2024 10:47 AM CDT us Milla Armenta WATER CONTROL STATION ENGINEER LAB BLOOD ORDERABLES Final Result [facility] ([place]) 1 [facility] Department [place] [address] * Differential, auto (07/15/2024 10:10 AM CDT) Neutrophil abs 1.60 1.50 - 6.50 K/cumm [facility] ([place]) Comment:Testing performed by : [facility] [address], Medical Office [facility] [address], [place] [address] Imm gran abs 0.01 0.00 - 0.10 K/cumm [facility] ([place]) Comment:Testing performed by : [facility] [address], Medical Office [facility] [address], [place] [address] Lymphocyte abs 1.01 0.80 - 3.30 K/cumm [facility] ([place]) Comment:Testing performed by : [facility] [address], Medical Office [facility] [address], [place] [address] Monocyte abs 0.27 0.20 - 0.80 K/cumm [facility] ([place]) Comment:Testing performed by : [facility] [address], Medical Office [facility] [address], [place] [address] Eosinophil abs 0.07 0.00 - 0.50 K/cumm [facility] ([place]) Comment:Testing performed by : [facility] [address], Medical Office [facility] [address], [place] [address] Basophil abs 0.02 0.00 - 0.10 K/cumm [facility] ([place]) Comment:Testing performed by : [facility] [address], Medical Office [facility] [address], [place] [address] Neutrophil pct 53.7 % [facility] ([place]) Comment: Interpretive Data Percent cell count reference ranges are not reported, since discordance with absolute values may lead to misinterpretation of CBC data. Current Interpretive Data was last revised on 2022. Testing performed by: [facility] [address], Medical Office [facility] [address], [place] [address] Imm gran pct 0.3 % [facility] ([place]) Comment: Interpretive Data Percent cell count reference ranges are not reported, since discordance with absolute values may lead to misinterpretation of CBC data. Current Interpretive Data was last revised on 2022. Testing performed by: [facility] [address], Medical Office [facility] [address], [place] [address] Lymphocyte pct 33.9 % [facility] ([place]) Comment: Interpretive Data Percent cell count reference ranges are not reported, since discordance with absolute values may lead to misinterpretation of CBC data. Current Interpretive Data was last revised on 2022. Testing performed by: [facility] [address], Medical Office [facility] B [facility] [address], [place] [address] Monocyte pct 9.1 % [facility] ([place]) Comment: Interpretive Data Percent cell count reference ranges are not reported, since discordance with absolute values may lead to misinterpretation of CBC data. Current Interpretive Data was last revised on 2022. Testing performed by: [facility] [address], Medical Office [facility] [address], [place] [address] Eosinophil pct 2.3 % [facility] ([place]) Comment: Interpretive Data Percent cell count reference ranges are not reported, since discordance with absolute values may lead to misinterpretation of CBC data. Current Interpretive Data was last revised on 2022. Testing performed by: [facility] [address], Medical Office [facility] [address], [place] [address] Basophil pct 0.7 % [facility] ([place]) Comment: Interpretive Data Percent cell count reference ranges are not reported, since discordance with absolute values may lead to misinterpretation of CBC data. Current Interpretive Data was last revised on 2022. Testing performed by: [facility] [address], Medical Office [facility] [address], [place] [address] Blood 07/15/2024 10:1 0 AM CDT 07/15/2024 10:23 AM CDT Milla Armenta WATER CONTROL STATION ENGINEER LAB BLOOD ORDERABLES Final Result [facility] ([place]) 1 [facility] Department [place] [address] * (ABNORMAL) CBC with auto differential (07/15/2024 10:10 AM CDT) WBC 2.98(L) 3.80 - 9.90 K/cumm [facility] ([place]) Comment:Testing performed by : [facility] [address], Medical Office [facility] [address], [place] [address] Hgb 10.7(L) 11.9 - 15.5 g/dL [facility] ([place]) Comment:Testing performed by : [facility] [address], Medical Office [facility] [address], [place] [address] Hct 33.0(L) 35.6 - 45.5 % [facility] ([place]) Comment:Testing performed by : [facility] [address], Medical Office [facility] [address], [place] [address] Plt 149(L) 150 - 400 K/cumm [facility] ([place]) Comment:Testing performed by : [facility] [address], Medical Office [facility] [address], [place] [address] MPV 10.7 9.1 - 12.3 fL [facility] ([place]) Comment:Testing performed by : [facility] [address], Medical Office [facility] [address], [place] [address] RBC 2.82(L) 3.90 - 5.20 M/cumm [facility] ([place]) Comment:Testing performed by : [facility] [address], Medical Office [facility] [address], [place] [address] MCV 117.0(H) 81.3 - 96.4 fL [facility] ([place]) Comment:Testing performed by : [facility] [address], Medical Office [facility] [address], [place] [address] MCH 37.9(H) 27.1 - 33.3 pg [facility] ([place]) Comment:Testing performed by : [facility] [address], Medical Office [facility] [address], [place] [address] MCHC 32.4 32.3 - 35.7 g/dL [facility] ([place]) Comment:Testing performed by : [facility] [address], Medical Office [facility] [address], [place] [address] RDW CV 16.8(H) 11.1 - 14.9 % [facility] ([place]) Comment:Testing performed by : [facility] [address], Medical Office [facility] [address], [place] [address] RDW SD 73.1(H) 35.7 - 48.1 fL [facility] ([place]) Comment:Testing performed by : [facility] [address], Medical Office [facility] [address], [place] [address] Blood 07/15/2024 10:1 0 AM CDT 07/15/2024 10:23 AM CDT Milla Armenta WATER CONTROL STATION ENGINEER LAB BLOOD ORDERABLES Final Result [facility] ([place]) 1 [facility] Department [place] [address] * (ABNORMAL) Comprehensive metabolic panel (07/15/2024 10:10 AM CDT) Sodium 142 135 - 145 mmol/L Comment:Testing performed by : [facility], [place], [address] Potassium, pl 4.1 3.3 - 4.9 mmol/L [facility] ([place]) Comment:Testing performed by : [facility], [place], [address] Chloride 102 97 - 110 mmol/L [facility] ([place]) Comment:Testing performed by : [facility], [place], [address] CO2 29 22 - 32 mmol/L [facility] ([place]) Comment:Testing performed by : [facility], [place], [address] Anion gap 11 2 - 15 mmol/L [facility] ([place]) Comment:Testing performed by : [facility], [place], [address] BUN 13 6 - 25 mg/dL [facility] ([place]) Comment:Testing performed by : [facility], [place], [address] Creatinine 0.54(L) 0.60 - 1.10 mg/dL [facility] ([place]) Comment:Testing performed by : [facility], [place], [address] Glucose 126 70 - 199 mg/dL [facility] ([place]) Comment: Interpretive Data Fasting glucose >/= 126 [...] was last revised 2022. Testing performed by: [facility], [place], [address] Calcium 9.5 8.5 - 10.3 mg/dL [facility] ([place]) Comment:Testing performed by : [facility], [place], [address] Bilirubin, total 0.5 0.1 - 1.2 mg/dL [facility] ([place]) Comment:Testing performed by : [facility], [place], [address] Protein, pl 6.8 6.5 - 8.5 g/dL [facility] ([place]) Comment:Testing performed by : [facility], [place], [address] Albumin 4.4 3.5 - 5.0 g/dL [facility] ([place]) Comment:Testing performed by : [facility], [place], [address] Alk phos 90 40 - 130 Units/L [facility] ([place]) Comment:Testing performed by : [facility], [place], [address] ALT 51(H) 7 - 45 Units/L [facility] ([place]) Comment:Testing performed by : [facility], [place], [address] AST 24 10 - 45 Units/L [facility] ([place]) Comment:Testing performed by : [facility], [facility], [place], [address] Blood 07/15/2024 10:1 0 AM CDT 07/15/2024 10:47 AM CDT us Milla Armenta NP LAB BLOOD ORDERABLES Final Result [facility] ([place]) [address] [place] [address] [place] [address] * eGFR (06/20/2024 8:30 AM CDT) eGFR [...] was last reviewed 2021. Testing performed by: [facility], [facility], [place], [address] Blood 06/20/2024 8:30 AM CDT 06/20/2024 8:46 AM CDT us Chalino Chapa MD LAB BLOOD ORDERABLES Aylin l Result [facility] ([place]) 1 [facility] Department [place] [address] * (ABNORMAL) Comprehensive metabolic panel (06/20/2024 8:30 AM CDT) Sodium 142 135 - 145 mmol/L Comment:Testing performed by : [facility], [place], [address] Potassium, pl 4.4 3.3 - 4.9 mmol/L [facility] ([place]) Comment:Testing performed by : [facility], [place], [address] Chloride 102 97 - 110 mmol/L [facility] ([place]) Comment:Testing performed by : [facility], [place], [address] CO2 31 22 - 32 mmol/L [facility] ([place]) Comment:Testing performed by : [facility], [place], [address] Anion gap 9 2 - 15 mmol/L [facility] ([place]) Comment:Testing performed by : [facility], [place], [address] BUN 13 6 - 25 mg/dL [facility] ([place]) Comment:Testing performed by : [facility], [place], [address] Creatinine 0.58(L) 0.60 - 1.10 mg/dL [facility] ([place]) Comment:Testing performed by : [facility], [place], [address] Glucose 134 70 - 199 mg/dL CERNER [...] was last revised 2022. Testing performed by: [facility], [place], [address] Calcium 9.7 8.5 - 10.3 mg/dL [facility] ([place]) Comment:Testing performed by : [place], [address] Bilirubin, total 0.5 0.1 - 1.2 mg/dL [facility] ([place]) Comment:Testing performed by : [facility], [place], [address] Protein, pl 6.6 6.5 - 8.5 g/dL [facility] ([place]) Comment:Testing performed by : [facility], [place], [address] Albumin 4.2 3.5 - 5.0 g/dL [facility] ([place]) Comment:Testing performed by : [facility] [facility], [place], [address] Alk phos 101 40 - 130 Units/L [facility] ([place]) Comment:Testing performed by : [facility], [place], [address] ALT 44 7 - 45 Units/L [facility] ([place]) Comment:Testing performed by : [facility], [place], [address] AST 25 10 - 45 Units/L [facility] ([place]) Comment:Testing performed by : [facility], [place], [address] Blood 06/20/2024 8:30 AM CDT 06/20/2024 8:46 AM CDT Chalino Chapa MD LAB BLOOD ORDERABLES Aylin freedman Result [facility] ([place]) [address] [place] [address] [place] [address] * (ABNORMAL) Differential, auto (06/20/2024 8:25 AM CDT) Neutrophil abs 1.3(L) 1.5 - 6.5 K/cumm Comment:Testing performed by : [facility] [address], Medical Office [facility] [address], [place] [address] Imm gran abs 0.0 0.0 - 0.1 K/cumm [facility] ([place]) Comment:Testing performed by : [facility] [address], Medical Office [facility] [address], [place] [address] Lymphocyte abs 0.9 0.8 - 3.3 K/cumm [facility] ([place]) Comment:Testing performed by : [facility] [address], Medical Office [address], [place] [address] Monocyte abs 0.3 0.2 - 0.8 K/cumm [facility] ([place]) Comment:Testing performed by : [facility] [address], Medical Office [address], [place] [address] Eosinophil abs 0.1 0.0 - 0.5 K/cumm [facility] ([place]) Comment:Testing performed by : [facility] [address], Medical Office [address], [place] [address] Basophil abs 0.0 0.0 - 0.1 K/cumm [facility] ([place]) Comment:Testing performed by : [facility] [address], Medical Office [facility] [address], [place] [address] Neutrophil pct 52.0 % [facility] ([place]) Comment: Interpretive Data Percent cell count reference ranges are not reported, since discordance with absolute values may lead to misinterpretation of CBC data. Current Interpretive Data was last revised on 2022. Testing performed by: [facility] [address], Medical Office [facility] [address], [place] [address] Imm gran pct 0.4 % [facility] ([place]) Comment: Interpretive Data Percent cell count reference ranges are not reported, since discordance with absolute values may lead to misinterpretation of CBC data. Current Interpretive Data was last revised on 2022. Testing performed by: [facility] [address], Medical Office [facility] [address], [place] [address] Lymphocyte pct 34.6 % [facility] ([place]) Comment: Interpretive Data Percent cell count reference ranges are not reported, since discordance with absolute values may lead to misinterpretation of CBC data. Current Interpretive Data was last revised on 2022. Testing performed by: [facility] [address], Medical Office [address], [place] [address] Monocyte pct 10.2 % [facility] ([place]) Comment: Interpretive Data Percent cell count reference ranges are not reported, since discordance with absolute values may lead to misinterpretation of CBC data. Current Interpretive Data was last revised on 2022. Testing performed by: [facility] [address], Medical Office [facility] [address], [place] [address] Eosinophil pct 2.0 % [facility] ([place]) Comment: Interpretive Data Percent cell count reference ranges are not reported, since discordance with absolute values may lead to misinterpretation of CBC data. Current Interpretive Data was last revised on 2022. Testing performed by: [facility] [address], Medical Office [facility] [address], [place] [address] Basophil pct 0.8 % [facility] ([place]) Comment: Interpretive Data Percent cell count reference ranges are not reported, since discordance with absolute values may lead to misinterpretation of CBC data. Current Interpretive Data was last revised on 2022. Testing performed by: [facility] [address], Medical Office [facility] [address], [place] [address] Blood 06/20/2024 8:25 AM CDT 06/20/2024 8:29 AM CDT Chalino Chapa MD LAB BLOOD ORDERABLES Aylin freedman Result [facility] ([place]) 1 [facility] [place] [address] * (ABNORMAL) CBC with auto differential (06/20/2024 8:25 AM CDT) WBC 2.5(L) 3.8 - 9.9 K/cumm Comment:Testing performed by : [facility] [address], Medical Office [facility] [address], [place] [address] Hgb 9.7(L) 11.9 - 15.5 g/dL [facility] ([place]) Comment:Testing performed by : [facility] [address], Medical Office [facility] [address], [place] [address] Hct 31.1(L) 35.6 - 45.5 % [facility] ([place]) Comment:Testing performed by : [facility] [address], Medical Office [facility] [address], [place] [address] Plt 162 150 - 400 K/cumm [facility] ([place]) Comment:Testing performed by : [facility] [address], Medical Office [facility] [address], [place] [address] MPV 11.3 9.1 - 12.3 fL [facility] ([place]) Comment:Testing performed by : [facility] [address], Medical Office [facility] [address], [place] [address] RBC 2.65(L) 3.90 - 5.20 M/cumm [facility] ([place]) Comment:Testing performed by : [facility] [address], Medical Office [facility] [address], [place] [address] MCV 117.4(H) 81.3 - 96.4 fL [facility] ([place]) Comment:Testing performed by : [facility] [address], Medical Office [facility] [address], [place] [address] MCH 36.6(H) 27.1 - 33.3 pg [facility] ([place]) Comment:Testing performed by : [facility] [address], Medical Office [facility] [address] [facility] [address], [place] [address] MCHC 31.2(L) 32.3 - 35.7 g/dL [facility] ([place]) Comment:Testing performed by : [facility] [address], Medical Office [facility] [address], [place] [address] RDW CV 21.5(H) 11.1 - 14.9 % [facility] ([place]) Comment:Testing performed by : [facility] [address], Medical Office [facility] [address], [place] [address] RDW SD 93.1(H) 35.7 - 48.1 fL [facility] ([place]) Comment:Testing performed by : [facility] [address], Medical Office [facility] [address], [place] [address] NRBC abs Not Measured 0.00 - 0.01 K/cumm [facility] ([place]) Comment:Testing performed by : [facility] [address], Medical Office [address], [place] [address] Blood 06/20/2024 8:25 AM CDT 06/20/2024 8:29 AM CDT us Chalino Chapa MD LAB BLOOD ORDERABLES Aylin freedman Result [facility] 1 [facility] Department [place] [address] * (ABNORMAL) CBC with auto differential (06/03/2024 11:25 AM SILVICULTURE PROFESSOR) WBC 2.2(L) 3.8 - 9.9 K/cumm Comment:Testing performed by : [place], [address] Hgb 8.4(L) 11.9 - 15.5 g/dL [facility] ([place]) Comment:Testing performed by : [place], [address] Hct 26.0(L) 35.6 - 45.5 % [facility] ([place]) Comment:Testing performed by : [place], [place], Plt 189 150 - 400 K/cumm [facility] ([place]) Comment:Testing performed by : [place], [address] MPV 11.8 9.1 - 12.3 fL [facility] ([place]) Comment:Testing performed by : [place], [address] RBC 2.37(L) 3.90 - 5.20 M/cumm [facility] ([place]) Comment:Testing performed by : [place], [address] MCV 109.7(H) 81.3 - 96.4 fL [facility] ([place]) Comment:Testing performed by : [place], [address] MCH 35.4(H) 27.1 - 33.3 pg [facility] ([place]) Comment:Testing performed by : [place], MCHC 32.3 32.3 - 35.7 g/dL [facility] ([place]) Comment:Testing performed by : [facility], [facility], [place], [address] RDW CV 19.7(H) 11.1 - 14.9 % [facility] ([place]) Comment:Testing performed by : [facility], [facility], [place], [address] RDW SD 76.7(H) 35.7 - 48.1 fL [facility] ([place]) Comment:Testing performed by : [facility], [place], [address] NRBC abs Not Measured 0.00 - 0.01 K/cumm [facility] ([place]) Comment:Testing performed by : [facility], [place], [address] Blood 06/03/2024 11:2 5 AM SILVICULTURE PROFESSOR 06/03/2024 11:28 AM SILVICULTURE PROFESSOR us Chalino Chapa MD LAB BLOOD ORDERABLES Aylin freedman Result [facility] 1 [facility] Department [place] [address] * (ABNORMAL) Manual Differential (06/03/2024 11:25 AM SILVICULTURE PROFESSOR) Differential Manual Comment:Testing performed by : [facility], [place], [address] Cells Counted 100 [facility] ([place]) Comment:Testing performed by : [facility], [place], [address] Neutrophil abs 0.7(L) 1.5 - 6.5 K/cumm [facility] ([place]) Comment:Testing performed by : [facility], [place], [address] Lymphocyte abs 1.3 0.8 - 3.3 K/cumm [facility] ([place]) Comment:Testing performed by : [facility], [place], [address] Monocyte abs 0.2 0.2 - 0.8 K/cumm [facility] ([place]) Comment:Testing performed by : [facility], [place], [address] Eosinophil abs 0.0 0.0 - 0.5 K/cumm [facility] ([place]) Comment:Testing performed by : [place], [address] Neutrophil pct 31.0 % [facility] ([place]) Comment: Interpretive Data Percent cell count reference ranges are not reported, since discordance with absolute values may lead to misinterpretation of CBC data. Current Interpretive Data was last revised on 2017. Testing performed by: [place], [address] Lymphocyte pct 59.0 % [facility] ([place]) Comment: Interpretive Data Percent cell count reference ranges are not reported, since discordance with absolute values may lead to misinterpretation of CBC data. Current Interpretive Data was last revised on 2017. Testing performed by: [facility], [place], [address] Monocyte pct 9.0 % [facility] ([place]) Comment: Interpretive Data Percent cell count reference ranges are not reported, since discordance with absolute values may lead to misinterpretation of CBC data. Current Interpretive Data was last revised on 2017. Testing performed by: [facility], [place], [address] Eosinophil pct 1.0 % [facility] ([place]) Comment: Interpretive Data Percent cell count reference ranges are not reported, since discordance with absolute values may lead to misinterpretation of CBC data. Current Interpretive Data was last revised on 2017. Testing performed by: [facility], [place], [address] RBC morphology Consistent with RBC Indicies [facility] ([place]) Comment:Testing performed by : [facility], [place], [address] Platelet estimate Automated Count Confirmed [facility] ([place]) Comment:Testing performed by : [facility], [place], [address] Blood 06/03/2024 11:2 5 AM SILVICULTURE PROFESSOR 06/03/2024 11:28 AM SILVICULTURE PROFESSOR us Chalino Chapa MD LAB BLOOD ORDERABLES Aylin freedman Result [facility] ([place]) 1 [facility] Department [place] [address] * eGFR (05/27/2024 9:10 AM SILVICULTURE PROFESSOR) eGFR 90 >=60 mL/min/1. 73 m2 Comment: [...] was last reviewed 2021. Testing performed by: [facility], [facility], [place], [address] Blood 05/27/2024 9:10 AM SILVICULTURE PROFESSOR 05/27/2024 9:24 AM SILVICULTURE PROFESSOR us Milla Armenta WATER CONTROL STATION ENGINEER LAB BLOOD ORDERABLES Final Result [facility] ([place]) 1 [facility] Department [place] [address] * (ABNORMAL) CBC with auto differential (05/27/2024 9:10 AM SILVICULTURE PROFESSOR) WBC 0.7(C) 3.8 - 9.9 K/cumm Comment: Critical result called to and read back by KELSEY ZAVALA on 05 27 2024 at 0932 to Betty Douglas. Testing performed by: [facility] [place], [address] [facility], Medical Office [address], [place] [address] Hgb 7.8(L) 11.9 - 15.5 g/dL [facility] ([place]) Comment:Testing performed by : [facility] [address], Medical Office [address], [place] [address] Hct 24.3(L) 35.6 - 45.5 % [facility] ([place]) Comment:Testing performed by : [facility] [address], Medical Office [address], [place] [address] Plt 325 150 - 400 K/cumm [facility] ([place]) Comment:Testing performed by : [facility] [address], Medical Office [facility] [address], [place] [address] MPV 10.7 9.1 - 12.3 fL [facility] ([place]) Comment:Testing performed by : [facility] [address], Medical Office [facility] [address], [place] [address] RBC 2.24(L) 3.90 - 5.20 M/cumm [facility] ([place]) Comment:Testing performed by : [facility] [address], Medical Office [facility] [address], [place] [address] MCV 108.5(H) 81.3 - 96.4 fL [facility] ([place]) Comment:Testing performed by : [facility] [address], Medical Office [facility] [address], [place] [address] MCH 34.8(H) 27.1 - 33.3 pg [facility] ([place]) Comment:Testing performed by : [facility] [address], Medical Office [facility] [address], [place] [address] MCHC 32.1(L) 32.3 - 35.7 g/dL [facility] ([place]) Comment:Testing performed by : [facility] [address], Medical Office [facility] [address], [place] [address] RDW CV 18.0(H) 11.1 - 14.9 % [facility] ([place]) Comment:Testing performed by : [facility] [address], Medical Office [address], [place] [address] RDW SD 69.7(H) 35.7 - 48.1 fL [facility] ([place]) Comment:Testing performed by : [facility] [address], Medical Office [address], [place] [address] NRBC abs 0.00 0.00 - 0.01 K/cumm [facility] ([place]) Comment:Testing performed by : [place], [address] Blood 05/27/2024 9:10 AM SILVICULTURE PROFESSOR 05/27/2024 9:14 AM SILVICULTURE PROFESSOR us Chalino Cahpa MD LAB BLOOD ORDERABLES Edit ed Result - Final [facility] ([place]) 1 [facility] Department [place] [address] * (ABNORMAL) Manual Differential (05/27/2024 9:10 AM SILVICULTURE PROFESSOR) Differential Manual Comment:Testing performed by : [place], [address] Cells Counted 100 [facility] ([place]) Comment:Testing performed by : [facility], [place], [address] Neutrophil abs 0.0(L) 1.5 - 6.5 K/cumm [facility] ([place]) Comment:Testing performed by : [place], [address] Imm gran abs 0.0 0.0 - 0.1 K/cumm [facility] ([place]) Comment:Testing performed by : [place], [address] Lymphocyte abs 0.6(L) 0.8 - 3.3 K/cumm [facility] ([place]) Comment:Testing performed by : [place], [address] Monocyte abs 0.0(L) 0.2 - 0.8 K/cumm [facility] ([place]) Comment:Testing performed by : [place], [address] Neutrophil pct 7.0 % [facility] ([place]) Comment: Interpretive Data Percent cell count reference ranges are not reported, since discordance with absolute values may lead to misinterpretation of CBC data. Current Interpretive Data was last revised on 2017. Testing performed by: [facility], [facility], [place], [address] Lymphocyte pct 69.0 % [facility] ([place]) Comment: Interpretive Data Percent cell count reference ranges are not reported, since discordance with absolute values may lead to misinterpretation of CBC data. Current Interpretive Data was last revised on 2017. Testing performed by: [facility], [place], [address] Monocyte pct 6.0 % [facility] ([place]) Comment: Interpretive Data Percent cell count reference ranges are not reported, since discordance with absolute values may lead to misinterpretation of CBC data. Current Interpretive Data was last revised on 2017. Testing performed by: [facility], [facility], [place], [address] Variant lymph pct 18.0(H) 0.0 - 0.0 % [facility] ([place]) Comment:Testing performed by : [facility], [place], [address] Platelet morphology Normal [facility] ([place]) Comment:Testing performed by : [facility], [facility], [place], [address] Blood 05/27/2024 9:10 AM SILVICULTURE PROFESSOR 05/27/2024 9:24 AM SILVICULTURE PROFESSOR us Chalino Chapa MD LAB BLOOD ORDERABLES Edit ed Result - Final [facility] ([place]) 1 [facility] [place] [address] * (ABNORMAL) Comprehensive metabolic panel (05/27/2024 9:10 AM SILVICULTURE PROFESSOR) Sodium 140 135 - 145 mmol/L Comment:Testing performed by : [facility], [place], [address] Potassium, pl 4.1 3.3 - 4.9 mmol/L [facility] ([place]) Comment:Testing performed by : [facility], [place], [address] Chloride 101 97 - 110 mmol/L [facility] ([place]) Comment:Testing performed by : [facility], [place], [address] CO2 30 22 - 32 mmol/L [facility] ([place]) Comment:Testing performed by : [facility], [facility], [place], [address] Anion gap 10 2 - 15 mmol/L [facility] ([place]) Comment:Testing performed by : [facility], [facility], [place], [address] BUN 17 6 - 25 mg/dL [facility] ([place]) Comment:Testing performed by : [facility], [facility], [place], [address] Creatinine 0.58(L) 0.60 - 1.10 mg/dL [facility] ([place]) Comment:Testing performed by : [facility], [place], [address] Glucose 137 70 - 199 mg/dL [facility] ([place]) Comment: Interpretive Data Fasting glucose >/= 126 [...] was last revised 2022. Testing performed by: [facility], [facility], [place], [address] Calcium 9.3 8.5 - 10.3 mg/dL [facility] ([place]) Comment:Testing performed by : [facility], [place], [address] Bilirubin, total 0.5 0.1 - 1.2 mg/dL [facility] ([place]) Comment:Testing performed by : [facility], [place], [address] Protein, pl 6.9 6.5 - 8.5 g/dL [facility] ([place]) Comment:Testing performed by : [facility], [place], [address] Albumin 4.1 3.5 - 5.0 g/dL [facility] ([place]) Comment:Testing performed by : [facility], [place], [address] Alk phos 74 40 - 130 Units/L [facility] ([place]) Comment:Testing performed by : [facility], [facility], [place], [address] ALT 40 7 - 45 Units/L [facility] ([place]) Comment:Testing performed by : [facility], [facility], [place], [address] AST 25 10 - 45 Units/L [facility] ([place]) Comment:Testing performed by : [facility], [facility], [place], [address] Blood 05/27/2024 9:10 AM SILVICULTURE PROFESSOR 05/27/2024 9:24 AM SILVICULTURE PROFESSOR us Milla Armenta WATER CONTROL STATION ENGINEER LAB BLOOD ORDERABLES Final Result Performing Organization Address City/State/[facility] Co de Phone Number [facility] ([place]) 1 [facility] [place] [address] from Last 3 Months Insurance MEDICARE MEDICARE [facility] MEDICARE SUPPLEMENT MEDICARE [facility] MEDICARE SUPPLEMENT Advance Directives For more information, please contact: [phone] Documents on File Type Date Recorded Patient Mechanical Insulator Expl anation ADVANCE DIRECTIVE 12/20/2023 8:01 AM Power of Agriculture Science Teacher-Medical * Full Code (Latest Code Status on File) Date Activated Date Inactivated Comments 12/11/2023 12:19 PM 12/19/2023 6:45 PM Care Teams Table Assembler Metal Relationship Specialty Start Date End Date Bryan Davey DO PCP - General Internal Medicine 11/14/23
--- OUTSIDE RECORDS SUMMARY | 2024-08-20 11:46 | XMS_ITS | Clinical Summary ---
Author Organization [facility] [place] [facility] Address [address] [place] [address] Care Team Providers Care Aircraft Maintenance Director Name Role Phone Unavailable Primary Care Provider [...] Noted Date Diagnosed Date Chronic anemia 10/03/2022 Family History Medical History Relation Name Comments [...] 2023 3, 01/07/2022, 01/15/2021, Additional history exists OSTEOPOROSIS SCREENING 08/30/2028 4, 08/09/2022, 08/07/2020 DTAP/TDAP/TD VACCINES (2 - T d or Tdap) 09/08/2029 09/09/2019 PNEUMOCOCCAL VACCINE 50+ YEARS Completed 0 10/26/2020, 05/18/2016, 04/03/2016, Additional history exists ZOSTER VACCINE Completed 03/29/2022, 10/02, 04/03/2016 Insurance MEDICARE PART A AND B BCBS SUPP
--- OUTSIDE RECORDS SUMMARY | 2024-08-20 11:47 | XMS_ITS | Encounter Summary ---
Author Organization [facility] Address [facility] [place] [address] Care Team Providers Care Filler Room Attendant Name Role Phone Andie Ang MD Primary Care Provider + [phone] Mervat Kelley Primary Care Provider + Andie Ang MD Primary Care Provider + [phone] Mervat Kelley Primary Care Provider + Andie Ang MD Primary Care Provider + [phone] Mevrat Kelley Primary Care Provider + Encounter Details Date Type Department Care Team (Late st Contact Info) Description 11/15/2018 Lab Requisition [facility] Care DermPath Lab [address] [facility] [place] [address] Sarath De Guzman MD [address] [place] [address] Social History Tobacco Use Types Packs/Day Years Used Date Smoking Tobacco: Never Assessed Comments Unknown Sex and Gender Information Value Date Recorded Sex Assigned at Not on file Legal Sex Female 6:25 PM CDT Gender Identity Not on file Sexual Orientation Not on file documented as of this encounter Plan of Treatment Not on file documented as of this encounter Procedures Procedure Name Priority Date/Time Associated Diagnosis Comments DERMATOPATHOLOGY Routine 11/14/2018 12:0 0 AM CDT documented in this encounter Results * DERMATOPATHOLOGY (11/14/2018 12:00 AM CDT) Case Report Dermatopathology Report Case: [id number] Authorizing Provider: Sarath De Guzman MD Collected: 11/14/2018 12:00 AM Ordering Location: [facility] Received: 11/15/2018 12:29 PM Pathologist: Nancy Schofield MD Specimen: Skin, sternal chest below manubrium 12:59 PM CDT DERMATOPATHOLOGY LABORATORY Final Diagnosis Specimen A. SKIN, sternal chest below manubrium: LICHEN PLANUS-LIKE KERATOSIS (BENIGN LICHENOID KERATOSIS) (L82.1) 12:59 PM CDT DERMATOPATHOLOGY LABORATORY at 1259 CDT Clinical History R/O BCC. 12:59 PM CDT DERMATOPATHOLOGY LABORATORY Gross Description Specimen A: Received is one formalin filled container labeled with the patient's name and designated sternal chest below manubrium. The specimen consists of a shave biopsy measuring [id number]. Jar 0. 12:59 PM CDT DERMATOPATHOLOGY LABORATORY [...] characteristic determined by the Dermatopathology Laboratory at [facility], directed by Dr. Frederick Schofield. These tests need not be, and therefore are not, approved by the [place] Food and Drug Administration. The tests are used for clinical purposes. Billing Codes Specimen Charges Stain Charges 94027 1 12:59 PM CDT DERMATOPATHOLOGY LABORATORY Embedded Images 12:59 PM CDT DERMATOPATHOLOGY LABORATORY Pathology/Cytolog y TISSUE SPECIMEN FROM SKIN / Unknown 11/14/2018 11/15/2018 12:29 PM CDT Sarath De Guzman MD LAB - PATHOLOGY/CYTOLOGY ORD ERABLES Final Result DERMATOPATHOLOGY LABORATORY [facility] - Department of Dermatology [address] [facility], [address]th [place] [address], [facility] [phone] documented in this encounter Visit Diagnoses Not on filedocumented in this encounter Care Teams Filler Room Attendant Relationship Specialty Start Date End Date Andie Ang MD [address] [phone] PCP - General 08/18/17 09/29/21 Mervat Kelley APRN-ROVING WEIGHT GAUGER [address] [place] [phone] PCP - General Nurse Practitioner 09/30/21 09/30/21 Andie Ang MD [address] [phone] PCP - General 10/01/21 10/12/21 Mervat Kelley APRN-ROVING WEIGHT GAUGER [address] [phone] PCP - General 10/13/21 10/31/21 Andie Ang MD [address] [phone] PCP - General 11/01/21 11/23/21 Mervat Kelley APRN-ROVING WEIGHT GAUGER [address] [phone] PCP - General 11/24/21 documented as of this encounter
--- OUTSIDE RECORDS SUMMARY | 2024-08-20 11:47 | XMS_ITS | Encounter Summary ---
Author Organization [facility] Address [address] [facility] [place] [address] Care Team Providers Care Director Of Diversity And Inclusion Name Role Phone Mervat Kelley FOOD TRUCK CATERER-ENVIRONMENTAL INSPECTOR Primary Care Provider + Encounter Details Date Type Department Care Team (Late st Contact Info) Description 10/05/2022 Lab Requisition [facility] - Pathology Lab [address] [place] [address] Jesus Louis MD [address] [phone] Anemia, unspecified Social History Tobacco [...] more drinks on one occasion? Never 09/29/2021 Comments No Sex and Gender Information Value Date Recorded [...] AM CDT) Case Report Flow Cytometry Case: [id number] Authorizing Provider: Jesus Louis MD Collected: 10/05/2022 09:15 AM Ordering Location: [facility] Pathology Lab Received: 10/05/2022 02:15 PM Pathologist: Linda Hauser MD Specimen: Bone Marrow 10/05/2022 4:45 PM CDT U PATHOLOGY LAB Final Diagnosis Bone marrow, flow cytometric immunophenotypic analysis: - No evidence of non-Hodgkin lymphoma or high-grade myeloid neoplasm. - See interpretation. 10/05/2022 4:45 PM CDT [facility] PATHOLOGY LAB at 1644 CDT Flow Cytometry Interpretation The bone marrow specimen has a viability of 85%. Within the lymphocyte gate, there is no monoclonal B-cell population identified (kappa:lambda ratio = 2.3:1). There is no expanded T-cell population seen. By CD34, 1.1% of all events analyzed are blasts. A bone marrow aspirate smear prepared from the flow cytometry specimen is reviewed for water quality technician purposes. The bone marrow specimen shows no evidence of involvement by non-Hodgkin lymphoma or a high-grade myeloid neoplasm. Correlation with clinical findings, the concurrent bone marrow biopsy, and relevant cytogenetic/molecu lar studies is required. 10/05/2022 4:45 PM CDT U PATHOLOGY LAB Flow Cytometry Results Differential Result Comment Flow Cell Count /uL 40,800 Total Viability % 85.0 Lymphocytes % 18 Dim CD45 Region % 9 Monocytes % 11 Granulocytes % 61 10/05/2022 4:45 PM CDT U PATHOLOGY LAB Reason for test Anemia, unspecified 285.9 10/05/2022 4:45 PM CDT U PATHOLOGY LAB Client Specimen ID # [id number] 10/05/2022 4:45 PM CDT [facility] PATHOLOGY LAB Number of markers 10 were performed. A-2 Flow CD10 A-3 Flow CD13 A-5 Flow CD20 A-1 Flow CD5 A-4 Flow CD19 A-6 Flow CD33 A-7 Flow CD34 A-8 Flow CD45 A-9 [place]+CD19+ A-10 Lambda+CD19+ 10/05/2022 4:45 PM CDT U PATHOLOGY LAB Pathologist Location at [facility] 10/05/2022 4:45 PM CDT U PATHOLOGY LAB Disclaimer Test performed at [facility], [address] [place], [place], [address]. *The established laboratory minimum viability is 70%. [...] PATHOLOGY LAB Embedded Images 4:45 PM CDT [facility] PATHOLOGY LAB Pathology/Cytolo gy BONE MARROW SPECIMEN / Unknown 10/05/2022 9:15 AM CDT 10/05/2022 2:15 PM CDT Jesus Louis MD LAB - PATHOLOGY/CYTOLOGY ORDERAB LES Final Result Performing Organization Address City/State/[facility] Co de Phone Number [facility] PATHOLOGY LAB [address] [place] [address]. [address] [phone] documented in this encounter Visit Diagnoses Diagnosis Anemia, unspecified documented in this encounter Care Teams Director Of Diversity And Inclusion Relationship Specialty Start Date End Date Mervat Kelley APRN-CNP [address] [phone] PCP - General 11/24/21 documented as of this encounter
--- OUTSIDE RECORDS SUMMARY | 2024-08-20 11:47 | XMS_ITS | Clinical Summary ---
Author Organization [facility] Address [address] [place] [address] Care Team Providers Care Trucking Manager Name Role Phone Mervat Kelley GERA-PAPER HANDLER Primary Care Provider + Source Comments [facility],non-owned Affiliates and Associated Physician Practices is amultiple site organization consisting of ambulatory clinics and hospital sitesin [place], [place], [place] and [place]. This disclosure is being madepursuant to the Care Everywhere program and may not contain all information available regarding this patient. Last updated 17.[facility] Allergies Active Allergy Reactions Criticality Noted Date Comments Codeine Other 09/29/2021 Hallucinations Cephalexin Nausea and/or Vomiting 09/29/2021 Morphine Nausea and/or Vomiting,Headache 09/29/2021 Medications * Be aware that medications may not be up to date on this document. Alwaysverify current medications with the patient. cyanocobalamin (VITAMIN B-12) 500 MCG tablet Take 1 (one) tablet by mouth once daily 90 tablet 2 Active amLODIPine (Norvasc) 5 MG tablet Take 1 (one) tablet by mouth once daily Active spironolactone (Aldactone) 25 MG tablet Take 1 (one) tablet by mouth 2 times daily 2 Active moxifloxacin (Vigamox) 0.5 % ophthalmic solution Instill 1 (one) drop into both eyes Active neomycin-polym yxin-dexameth (Maxitrol) ophthalmic suspension Active nepafenac (Nevanac) 0.1 % ophth suspension Nevanac 0.1 % eye drops,suspension Active olopatadine (Pataday) 0.2 % ophthalmic solution Instill into both eyes once daily Active fish oil/omega-3 fatty acids (Promega;Cardi -[place] 3) 1000 MG capsule Take 2 (two) [...] unspecified fracture morphology, subsequent encounter 09/29/2021 Immunizations Immunization Administration Dates Next Due Covid Moderna primary monova lent 12+ yr 0.5mL 02/01/2021 [...] 71.7 kg (158 lb) 04/06/2022 10:56 AM E LEARNING SPECIALIST Height 152.4 cm (5') 12/22/2021 12:39 PM CDT Body Mass Index 30.86 12/22/2021 12:39 PM CDT Plan of Treatment Health Maintenance Due Date Last Done Comments BONE DENSITY TESTING 1940 MEDICARE AWV 12 MONTHS 1940 Respiratory Syncytial Virus (RSV) Vaccine Pt: or over 60 yrs (1 - 1-dose 75+ series) 02/09/2016 COVID-19 VACCINE ( season) 2023 01/23/2022, 09/24/2021, 02/01/2021, Additional history exists DEPRESSION SCREENING 04/03/2024 INFLUENZA VACCINE (Season Ended) 2024 01/07/2022, 01/15/2021, 01/13/2020, Additional history exists DTAP/TDAP/TD VACCINES (2 - Td or Tdap) [...] age to complete this topic Insurance [facility] Advance Directives * Full Code (Latest Code Status on File) Date Activated Date Inactivated Comments 09/29/2021 4:59 AM 09/30/2021 2:57 PM Care Teams Trucking Manager Relationship Specialty Start Date End Date Mervat Kelley APRN-CNP [address] [phone] PCP - General 11/24/21
--- OUTSIDE RECORDS SUMMARY | 2024-08-20 11:47 | XMS_ITS | Clinical Summary ---
Author Organization [facility] Address [address] [address] Care Team Providers Care Aviation Program Manager Name Role Phone Unavailable Primary Care [...] Due Date Last Done Comments Influenza Vaccine (Season Ended) 2024 02/14/2019, 02/06/2018, 12/02/2016, Additional history exists Pneumococcal Vaccine: 50+ Years Completed 10/26/2020, 05/18/2016, 04/03/2016, Additional history exists Pneumococcal Vaccine: Peds (0 to 5 Years) and At-Risk Patients (6 to 49 Years) Discontinued 10/26/2020, 05/18/2016, 04/03/2016, Additional history exists Hepatitis B Vaccine Aged Out No longe r eligible based on patient's age to complete this topic
--- OUTSIDE RECORDS SUMMARY | 2024-08-20 11:47 | XMS_ITS | Encounter Summary ---
Author Organization [facility] Address [address] [facility] [place] [address] Care Team Providers Care Production Officer Name Role Phone Mervat Kelley CLERICAL AND OFFICE SUPPORT WORKERS-DOUGHNUT MAKER Primary Care Provider + Encounter Details Date Type Department Care Team (Late st Contact Info) Description 10/06/2022 Lab Requisition [facility] - Pathology Lab [address] [place] [address] Jesus Louis MD [address] [address] Illness, unspecified Social History Tobacco [...] Report Bone Marrow Patholog y Report Case: [id number] Authorizing Provider: Jesus Louis MD Collected: 10/05/2022 09:15 AM Ordering Location: [facility] Pathology Lab Received: 10/06/2022 01:27 PM Pathologist: Linda Hauesr MD Specimens: A) - Bone Marrow Clot, Fluoro-guided bone marrow aspiration B) - Bone Marrow Core, Fluoro-guided bone marrow core bx 10/07/2022 1:40 PM CDT [facility] PATHOLOGY LAB Final Diagnosis Bone marrow, aspirate, clot section, and core biopsy: - 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 10/07/2022 1:40 PM CDT U PATHOLOGY LAB Peripheral Smear Description CBC Data: WBC - 2.2, Hgb - 6.3, MCV - 122.4, MCHC - 31.2, and Platelets - 260. Leukocyte number: decreased. Granulocyte morphology: normal. Lymphocyte morphology: normal. Erythrocyte number: decreased. Erythrocyte morphology: macrocytic. Anisopoikilocytosis: mild. Polychromasia: mild. Platelet number: normal. Platelet morphology: normal. 10/07/2022 1:40 PM [facility] PATHOLOGY LAB Bone Marrow Aspirate The aspirate [...] Control is appropriately reactive. 10/07/2022 1:40 PM [facility] PATHOLOGY LAB Bone Marrow Core Biopsy and [...] an increased number of early erythroid progenitors. [id number] demonstrates additional, more mature erythroid lineage cells, confirming erythroid hyperplasia. Myeloperoxidase is positive in relatively fewer numbers of myeloid precursors. CD3 and CD20 show a normal number and distribution of T-cells and B-cells, respectively. Reticulin staining shows no significant marrow fibrosis (MF-0), and trichrome staining shows no collagen deposition. 10/07/2022 1:40 PM [facility] PATHOLOGY LAB Flow Cytometry Summary Concurrent flow cytometry ([id number]) shows no evidence of non-Hodgkin lymphoma or high-grade myeloid neoplasm. 10/07/2022 1:40 PM [facility] PATHOLOGY LAB Clinical History 82 year old woman with macrocytic anemia. 10/07/2022 1:40 PM CDT [facility] PATH[facility] Materials Received Received are 22 slides and 3 blocks (A1, A2; B1) labeled [id number] along with a copy of the outside pathology report. The materials originate from [facility], [address] [place] [address] [place] [address]. All original materials are returned to the referring institution, along with a copy of our final report. 10/07/2022 1:40 PM CDT U PATHOLOGY LAB Pathologist Location at [facility] 10/07/2022 1:40 PM CDT [facility] PATHOLOG[facility] LAB Disclaimer The performance characteristics of all immunohistochemical and indirect immunofluorescence stains (if any) cited in this report were determined by the Histopathology Laboratory of [facility]. Some of these tests were developed by [...] (teaching) pathologist. 10/07/2022 1:40 PM CDT [facility] PATHOLOGY LAB Embedded Images 10/07/2022 1:40 PM CDT [facility] PATH[facility] LAB Pathology/Cytology BONE MARROW SPECIMEN / Unknown 10/05/2022 9:15 AM CDT 10/06/2022 1:27 PM CDT Miscellaneous samples (specimen) BONE MARROW SPECIMEN / Unknown 10/05/2022 9:15 AM CDT 10/06/2022 1:27 PM CDT us Jesus Louis MD LAB - PATHOLOGY/CYTOLOGY ORDERAB LES Final Result [facility] PATHOLOG[facility] LAB [address] [place], [place] [id number] [place] [address] documented in this encounter Visit Diagnoses Diagnosis Illness, unspecified documented in this encounter Care Teams Production Officer Relationship Specialty Start Date End Date Mervat Kelley APRN-DAVIS [address] [phone] PCP - General 11/24/21 documented as of this encounter
--- OUTSIDE RECORDS SUMMARY | 2024-08-20 11:47 | XMS_ITS | Clinical Summary ---
Author Organization [facility] Address [address], [address] [address] Phone Care Team Providers Care Sales Host Name Role Phone ReinaldotravonMervat APRN Primary Care Provider [phone] Medications polyethylene glycol (MIRALAX) Powder Use entire [...] age to complete this topic Insurance MEDICARE [facility] Care Teams Sales Host Relationship Specialty Start Date End Date Mervat Kelley APRN PCP - General Advanced Practice Nurse 06/12/17
== END 2024-08-20 11:42 | disposition home or self-care (01) ==
PROVIDERS: PCP Internal Medicine; Visit Provider Obstetrics & Gynecology
DX: Z12.31 Encounter for screening mammogram for malignant neoplasm of breast (principal)
CPT/HCPCS: 77063; 77067

== ENCOUNTER 2024-08-29 10:17 | Outpatient (CLI) | payer MEDICARE, SELFPAY ==
--- OUTSIDE RECORDS SUMMARY | 2024-08-29 10:22 | XMS_ITS | Clinical Summary ---
Author Organization [employer] [facility] [address] Address [address] [place] [address] Care Team Providers Care Full Time Babysitter Name Role Phone ChelajenniferBryan eckertKimber DO Primary Care Provider [phone] Allergies Active Allergy Reactions Criticality Noted Date [...] 1 tablet (75 mcg total) by mouth occupational therapy co director before breakfast 30 tablet 4 Active oxyBUTYnin [...] (06/06/2018): Added automatically from request for surgery [id number] Encounters Date Type Department Care Team Description 08/08/2024 10:30 AM CDT Clinical Support [address] [place] [phone] Age-related osteoporosis without current pathological fracture (Primary Dx); MDS (myelodysplastic syndrome) (HCC); Encounter for care related to Port-a-Cath 08/08/2024 10:15 AM CDT Office Visit [facility] [address] [place] [address] [facility] [address] [place] [address] Milla Armenta NP MDS (myelodysplastic syndrome) (HCC) (Primary Dx) 08/08/2024 9:45 AM CDT Lab [address] [place] [phone] MDS (myelodysplastic syndrome) (HCC) 07/15/2024 10:30 AM CDT Office Visit [facility] [address] [place] [address] [facility] [address] [place] [address] Chalino Chapa MD MDS (myelodysplastic syndrome) (HCC) (Primary Dx) 07/15/2024 10:00 AM CDT Lab [address] [place] [address] MDS (myelodysplastic syndrome) (HCC) 07/12/2024 Documentation [facility] [address] [place] [address] Medical [address] [facility] [address] [place] [address] Betty Sewell, ALBERT 06/20/2024 8:45 AM CDT Office Visit [facility] [address] [place] [address] Office [address] [place] [address] Milla Armenta NP MDS (myelodysplastic syndrome) (HCC) 06/20/2024 8:15 AM CDT Lab [address] [place] [address] MDS (myelodysplastic syndrome) (HCC) 06/20/2024 Orders Only [facility] [address] [place] [address] Medical Office [address] [place] [address] Chalino Chapa MD MDS (myelodysplastic syndrome) (HCC) (Primary Dx) 06/19/2024 Telephone [facility] [address] [place] [address] Medical [address] [place] [address] Clau Cabral, CLT 06/03/2024 11:45 AM BACK END ENGINEER Lab [facility] at [address] [place] [address] MDS (myelodysplastic syndrome) (HCC) from Last 3 Months Immunizations Immunization Administration [...] eft knee, current 06/06/2018 Added automatically from [facility] for surgery [id number] PONV (postoperative nausea a nd vomiting) Anxiety [...] on file Legal Sex Female 1:43 AM BACK END ENGINEER Gender Identity Not on file Sexual Orientation [...] 10/02, 04/03/2016 Medical Devices Implanted Type Area Personnel Clerks Supervisor Device Identifier Shelf Expiration Date Model / Serial / Lot Emre Glide Powerport Mri Airguard 8fr 1 Lumen Attachable Catheter Latex Free [id number] - [id number] Implanted:Qty: 1 on 11/20/2023 by Shade Red MD at [facility] Right: Chest Emre Glide 09/30/2024 [id number] / / [id number] Procedures Procedure Name Priority Date/Time Associated Diagnosis [...] MANUAL DIFFERENTIAL Routine 06/03/2024 1 1:25 AM BACK END ENGINEER MDS (myelodysplastic syndrome) (HCC) CBC WITH AUTO DIFFERENTIAL Routine 06/03/2024 11:25 AM BACK END ENGINEER MDS (myelodysplastic syndrome) (HCC) from Last 3 [...] was last reviewed 2021. Testing performed by: [place], [address] Blood 08/08/2024 10:1 0 AM CDT 08/08/2024 10:42 AM CDT us Chalino Chapa MD LAB BLOOD ORDERABLES Aylin l Result [facility] ([facility]) [facility] [place] [address] * (ABNORMAL) Differential, auto (08/08/2024 10:10 AM CDT) Neutrophil abs 1.01(L) 1.50 - 6.50 K/cumm Comment:Testing performed by : [place], [address] Imm gran abs 0.02 0.00 - 0.10 K/cumm [facility] ([place] [place]) Comment:Testing performed by : [place], [address] Lymphocyte abs 0.98 0.80 - 3.30 K/cumm [facility] ([facility] [place]) Comment:Testing performed by : [place], [address] Monocyte abs 0.26 0.20 - 0.80 K/cumm [facility] ([place] [place]) Comment:Testing performed by : [place], [address] Eosinophil abs 0.06 0.00 - 0.50 K/cumm [facility] ([place] [place]) Comment:Testing performed by : [place], [address] Basophil abs 0.02 0.00 - 0.10 K/cumm [facility] ([place] [place]) Comment:Testing performed by : [facility], [facility], [place], [address] Neutrophil pct 42.8 % [facility] ([place]) Comment: Interpretive Data Percent cell count reference ranges are not reported, since discordance with absolute values may lead to misinterpretation of CBC data. Current Interpretive Data was last revised on 2017. Testing performed by: [place], [address] Imm gran pct 0.9 % [facility] ([place]) Comment: Interpretive Data Percent cell count reference ranges are not reported, since discordance with absolute values may lead to misinterpretation of CBC data. Current Interpretive Data was last revised on 2017. Testing performed by: [place], [address] Lymphocyte pct 41.7 % [facility] ([facility]) Comment: Interpretive Data Percent cell count reference ranges are not reported, since discordance with absolute values may lead to misinterpretation of CBC data. Current Interpretive Data was last revised on 2017. Testing performed by: [facility], [place], [address] Monocyte pct 11.1 % [facility] ([place]) Comment: Interpretive Data Percent cell count reference ranges are not reported, since discordance with absolute values may lead to misinterpretation of CBC data. Current Interpretive Data was last revised on 2017. Testing performed by: [facility], [place], [address] Eosinophil pct 2.6 % [facility] ([place]) Comment: Interpretive Data Percent cell count reference ranges are not reported, since discordance with absolute values may lead to misinterpretation of CBC data. Current Interpretive Data was last revised on 2017. Testing performed by: [facility], [place], [address] Basophil pct 0.9 % [facility] ([place]) Comment: Interpretive Data Percent cell count reference ranges are not reported, since discordance with absolute values may lead to misinterpretation of CBC data. Current Interpretive Data was last revised on 2017. Testing performed by: [facility], [place], [address] Blood 08/08/2024 10:1 0 AM CDT 08/08/2024 10:53 AM CDT us Chalino Chapa MD LAB BLOOD ORDERABLES Aylin freedman Result [facility] ([place] [place]) 1 [facility] Department [place] [address] * (ABNORMAL) CBC with auto differential (08/08/2024 10:10 AM CDT) WBC 2.35(L) 3.80 - 9.90 K/cumm Comment:Testing performed by : [place], [address] Hgb 9.7(L) 11.9 - 15.5 g/dL [facility] ([place]) Comment:Testing performed by : [facility], [place], [address] Hct 29.5(L) 35.6 - 45.5 % [facility] ([place] [place]) Comment:Testing performed by : [facility], [place], [address] Plt 155 150 - 400 K/cumm [facility] ([facility] [place]) Comment:Testing performed by : [place], [address] MPV 10.9 9.1 - 12.3 fL [facility] ([place]) Comment:Testing performed by : [place], [address] RBC 2.54(L) 3.90 - 5.20 M/cumm [facility] ([place]) Comment:Testing performed by : [place], [address] MCV 116.1(H) 81.3 - 96.4 fL [facility] ([place]) Comment:Testing performed by : [place], [address] MCH 38.2(H) 27.1 - 33.3 pg [facility] ([place]) Comment:Testing performed by : [place], [address] MCHC 32.9 32.3 - 35.7 g/dL [facility] ([place]) Comment:Testing performed by : [place], [address] RDW CV 14.6 11.1 - 14.9 % [facility] ([place] [place]) Comment:Testing performed by : [facility], [place], [address] RDW SD 62.4(H) 35.7 - 48.1 fL [facility] ([place]) Comment:Testing performed by : [facility], [place], [address] NRBC abs 0.00 0.00 - 0.01 K/cumm [facility] ([place] [place]) Comment:Testing performed by : [facility], [place], [address] Blood 08/08/2024 10:1 0 AM CDT 08/08/2024 10:53 AM CDT us Chalino Chapa MD LAB BLOOD ORDERABLES Aylin freedman Result [facility] ([facility] [place]) [address] [place] [address] Department [place] [address] * (ABNORMAL) Comprehensive metabolic panel (08/08/2024 10:10 AM CDT) Sodium 142 135 - 145 mmol/L Comment:Testing performed by : [facility], [place], [address] Potassium, pl 4.6 3.3 - 4.9 mmol/L [facility] ([place]) Comment:Testing performed by : [facility], [place], [address] Chloride 104 97 - 110 mmol/L [facility] ([place] [place]) Comment:Testing performed by : [facility], [place], [address] CO2 30 22 - 32 mmol/L [facility] ([place] [place]) Comment:Testing performed by : [facility], [place], [address] Anion gap 9 2 - 15 mmol/L [facility] ([place] [place]) Comment:Testing performed by : [facility], [place], [address] BUN 17 6 - 25 mg/dL [facility] ([facility] [place]) Comment:Testing performed by : [facility], [place], [address] Creatinine 0.55(L) 0.60 - 1.10 mg/dL [facility] ([place]) Comment:Testing performed by : [place], [address] Glucose 94 70 - 199 mg/dL [facility] ([place]) [...] was last revised 2022. Testing performed by: [place], [address] Calcium 9.2 8.5 - 10.3 mg/dL [facility] ([place] [place]) Comment:Testing performed by : [place], [address] Bilirubin, total 0.5 0.1 - 1.2 mg/dL [facility] ([place]) Comment:Testing performed by : [place], [address] Protein, pl 6.5 6.5 - 8.5 g/dL [facility] ([place]) Comment:Testing performed by : [place], [address] Albumin 4.3 3.5 - 5.0 g/dL [facility] ([place]) Comment:Testing performed by : [place], [address] Alk phos 82 40 - 130 Units/L [facility] ([place]) Comment:Testing performed by : [place], [address] ALT 52(H) 7 - 45 Units/L [facility] ([place]) Comment:Testing performed by : [facility], [place], [address] AST 24 10 - 45 Units/L [facility] ([place]) Comment:Testing performed by : [facility], [place], [address] Blood 08/08/2024 10:1 0 AM CDT 08/08/2024 10:42 AM CDT us Chalino Chapa MD LAB BLOOD ORDERABLES Aylin l Result Performing Organization Address [facility]/ZIP Co de Phone Number [facility] ([place]) [address] [place] [address] [place] [address] * eGFR (07/15/2024 10:10 AM CDT) eGFR [...] was last reviewed 2021. Testing performed by: [facility], [place], [address] Blood 07/15/2024 10:1 0 AM CDT 07/15/2024 10:47 AM CDT us Milla Armenta NP LAB BLOOD ORDERABLES Final Result Performing Organization Address City/[facility]/ZIP Co de Phone Number [facility] ([facility] [place]) 1 [facility] Department [place] [address] * Differential, auto (07/15/2024 10:10 AM CDT) Neutrophil abs 1.60 1.50 - 6.50 K/cumm [facility] ([place]) Comment:Testing performed by : [facility] [address], Medical Office [address], [place] [address] Imm gran abs 0.01 0.00 - 0.10 K/cumm [facility] ([place] [place]) Comment:Testing performed by : [facility] [address], Medical Office [address], [place] [address] Lymphocyte abs 1.01 0.80 - 3.30 K/cumm [facility] ([facility]) Comment:Testing performed by : [facility] [address], Medical Office [address], [place] [address] Monocyte abs 0.27 0.20 - 0.80 K/cumm [facility] ([facility]) Comment:Testing performed by : [facility] [address], Medical Office [address], [place] [address] Eosinophil abs 0.07 0.00 - 0.50 K/cumm [facility] ([facility]) Comment:Testing performed by : [facility] [address], Medical Office [address], [place] [address] Basophil abs 0.02 0.00 - 0.10 K/cumm [facility] ([facility]) Comment:Testing performed by : [facility] [address], Medical Office [address], [place] [address] Neutrophil pct 53.7 % [facility] ([facility]) Comment: Interpretive Data Percent cell count reference ranges are not reported, since discordance with absolute values may lead to misinterpretation of CBC data. Current Interpretive Data was last revised on 2022. Testing performed by: [facility] [address], Medical Office [address], [place] [address] Imm gran pct 0.3 % [facility] ([facility]) Comment: Interpretive Data Percent cell count reference ranges are not reported, since discordance with absolute values may lead to misinterpretation of CBC data. Current Interpretive Data was last revised on 2022. Testing performed by: [facility] [address], Medical Office [address], [place] [address] Lymphocyte pct 33.9 % [facility] ([facility]) Comment: Interpretive Data Percent cell count reference ranges are not reported, since discordance with absolute values may lead to misinterpretation of CBC data. Current Interpretive Data was last revised on 2022. Testing performed by: [facility] [address], Medical Office [facility] [address], [place] [address] Monocyte pct 9.1 % [facility] ([place]) Comment: Interpretive Data Percent cell count reference ranges are not reported, since discordance with absolute values may lead to misinterpretation of CBC data. Current Interpretive Data was last revised on 2022. Testing performed by: [facility] [address], Medical Office [facility] [address], [place] [address] Eosinophil pct 2.3 % [facility] ([place]) Comment: Interpretive Data Percent cell count reference ranges are not reported, since discordance with absolute values may lead to misinterpretation of CBC data. Current Interpretive Data was last revised on 2022. Testing performed by: [facility] [address], Medical Office [facility] [address], [place] [address] Basophil pct 0.7 % [facility] ([place]) Comment: Interpretive Data Percent cell count reference ranges are not reported, since discordance with absolute values may lead to misinterpretation of CBC data. Current Interpretive Data was last revised on 2022. Testing performed by: [facility] [address], Medical Office [facility] [address], [place] [address] Blood 07/15/2024 10:1 0 AM CDT 07/15/2024 10:23 AM CDT us Milla Armenta NP LAB BLOOD ORDERABLES Final Result [facility] ([place]) 1 [facility] Department of Laboratories [place], [place] [address] * (ABNORMAL) CBC with auto differential (07/15/2024 10:10 AM CDT) WBC 2.98(L) 3.80 - 9.90 K/cumm [facility] ([place]) Comment:Testing performed by : [facility] [address], Medical Office [address], [place] [address] Hgb 10.7(L) 11.9 - 15.5 g/dL [facility] ([place]) Comment:Testing performed by : [facility] [address], Medical Office [facility] [address], [place] [address] Hct 33.0(L) 35.6 - 45.5 % [facility] ([place]) Comment:Testing performed by : [facility] [address], Medical Office [facility] [address], [place] [address] Plt 149(L) 150 - 400 K/cumm [facility] ([place]) Comment:Testing performed by : [facility] [address], Medical Office [facility] [address], [place] [address] MPV 10.7 9.1 - 12.3 fL [facility] ([place]) Comment:Testing performed by : [facility] [address], Medical Office [facility] [address], [place] [address] RBC 2.82(L) 3.90 - 5.20 M/cumm [facility] ([place]) Comment:Testing performed by : [facility] [address], Medical Office [facility] [address], [place] [address] MCV 117.0(H) 81.3 - 96.4 fL [facility] ([place]) Comment:Testing performed by : [facility] [address], Medical Office [facility] [address], [place] [address] MCH 37.9(H) 27.1 - 33.3 pg [facility] ([place]) Comment:Testing performed by : [facility] [address], Medical Office [facility] [address], [place] [address] MCHC 32.4 32.3 - 35.7 g/dL [facility] ([place]) Comment:Testing performed by : [facility] [address], Medical Office [facility] [address], [place] [address] RDW CV 16.8(H) 11.1 - 14.9 % [facility] ([place]) Comment:Testing performed by : [facility] [address], Medical Office [facility] [address], [place] [address] RDW SD 73.1(H) 35.7 - 48.1 fL [facility] ([facility]) Comment:Testing performed by : [facility] [address], Medical Office [facility] [address], [place] [address] Blood 07/15/2024 10:1 0 AM CDT 07/15/2024 10:23 AM CDT us Milla Armenta WEED SPRAYER LAB BLOOD ORDERABLES Final Result [facility] ([place] [place]) 1 [facility] Department [place] [address] * (ABNORMAL) Comprehensive metabolic panel (07/15/2024 10:10 AM CDT) Sodium 142 135 - 145 mmol/L Comment:Testing performed by : [facility], [place], [address] Potassium, pl 4.1 3.3 - 4.9 mmol/L [facility] ([place]) Comment:Testing performed by : [facility], [place], [address] Chloride 102 97 - 110 mmol/L [facility] ([place]) Comment:Testing performed by : [facility], [place], [address] CO2 29 22 - 32 mmol/L [facility] ([place]) Comment:Testing performed by : [facility], [place], [address] Anion gap 11 2 - 15 mmol/L [facility] ([place]) Comment:Testing performed by : [facility], [place], [address] BUN 13 6 - 25 mg/dL [facility] ([place]) Comment:Testing performed by : [facility], [place], [address] Creatinine 0.54(L) 0.60 - 1.10 mg/dL [facility] ([place]) Comment:Testing performed by : [facility], [place], [address] Glucose 126 70 - 199 mg/dL [facility] [...] was last revised 2022. Testing performed by: [place], [address] Calcium 9.5 8.5 - 10.3 mg/dL [facility] ([place]) Comment:Testing performed by : [place], [address] Bilirubin, total 0.5 0.1 - 1.2 mg/dL [facility] ([place]) Comment:Testing performed by : [facility], [place], [address] Protein, pl 6.8 6.5 - 8.5 g/dL [facility] ([place]) Comment:Testing performed by : [facility], [place], [address] Albumin 4.4 3.5 - 5.0 g/dL [facility] ([place]) Comment:Testing performed by : [place], [address] Alk phos 90 40 - 130 Units/L [facility] ([place]) Comment:Testing performed by : [facility], [place], [address] ALT 51(H) 7 - 45 Units/L [facility] ([place]) Comment:Testing performed by : [facility], [place], [address] AST 24 10 - 45 Units/L [facility] ([place]) Comment:Testing performed by : [place], [address] Blood 07/15/2024 10:1 0 AM CDT 07/15/2024 10:47 AM CDT us Milla Armenta WEED SPRAYER LAB BLOOD ORDERABLES Final Result Performing Organization Address [facility] Co de Phone Number [facility] ([place]) [facility] [place] [address] * eGFR (06/20/2024 8:30 AM CDT) eGFR [...] was last reviewed 2021. Testing performed by: [place], [address] Blood 06/20/2024 8:30 AM CDT 06/20/2024 8:46 AM CDT us Chalino Chapa MD LAB BLOOD ORDERABLES Aylin l Result Performing Organization Address City/[facility]/ZIP Co de Phone Number [facility] ([place]) [facility] Department [place] [address] * (ABNORMAL) Comprehensive metabolic panel (06/20/2024 8:30 AM CDT) Sodium 142 135 - 145 mmol/L Comment:Testing performed by : [place], [address] Potassium, pl 4.4 3.3 - 4.9 mmol/L [facility] ([place]) Comment:Testing performed by : [facility] [place], [address] Chloride 102 97 - 110 mmol/L [facility] ([place]) Comment:Testing performed by : [facility], [facility], [place], [address] CO2 31 22 - 32 mmol/L [facility] ([place]) Comment:Testing performed by : [facility], [facility], [place], [address] Anion gap 9 2 - 15 mmol/L [facility] ([place]) Comment:Testing performed by : [facility], [place], [address] BUN 13 6 - 25 mg/dL [facility] ([place]) Comment:Testing performed by : [facility], [facility], [place], [address] Creatinine 0.58(L) 0.60 - 1.10 mg/dL [facility] ([place]) Comment:Testing performed by : [facility], [place], [address] Glucose 134 70 - 199 mg/dL [facility]ER [...] was last revised 2022. Testing performed by: [facility], [place], [address] Calcium 9.7 8.5 - 10.3 mg/dL [facility] ([place]) Comment:Testing performed by : [facility], [place], [address] Bilirubin, total 0.5 0.1 - 1.2 mg/dL [facility] ([place]) Comment:Testing performed by : [facility], [place], [address] Protein, pl 6.6 6.5 - 8.5 g/dL [facility] ([place]) Comment:Testing performed by : [facility], [place], [address] Albumin 4.2 3.5 - 5.0 g/dL [facility] ([place]) Comment:Testing performed by : [facility], [facility], [place], [address] Alk phos 101 40 - 130 Units/L [facility] ([place]) Comment:Testing performed by : [facility], [facility], [place], [address] ALT 44 7 - 45 Units/L [facility] ([place]) Comment:Testing performed by : [facility], [place], [address] AST 25 10 - 45 Units/L [facility] ([place]) Comment:Testing performed by : [facility], [place], [address] Blood 06/20/2024 8:30 AM CDT 06/20/2024 8:46 AM CDT us Chalino Chapa MD LAB BLOOD ORDERABLES Aylin freedman Result [facility] ([place] [place]) [address] [place] [address] [place] [address] * (ABNORMAL) Differential, auto (06/20/2024 8:25 AM CDT) Neutrophil abs 1.3(L) 1.5 - 6.5 K/cumm Comment:Testing performed by : [facility] [address], Medical Office [facility] [address], [place] [address] Imm gran abs 0.0 0.0 - 0.1 K/cumm [facility] ([place]) Comment:Testing performed by : [facility] [address], Medical Office [facility] [address], [place] [address] Lymphocyte abs 0.9 0.8 - 3.3 K/cumm [facility] ([facility]) Comment:Testing performed by : [facility] [address], Medical Office [facility] [address], [place] [address] Monocyte abs 0.3 0.2 - 0.8 K/cumm [facility] (M[facility]AE [facility]) Comment:Testing performed by : [facility] [address], Medical Office [facility] [address], [place] [address] Eosinophil abs 0.1 0.0 - 0.5 K/cumm [facility] ([facility]IC[facility]) Comment:Testing performed by : [facility] [address], Medical Office [facility] [address], [place] [address] Basophil abs 0.0 0.0 - 0.1 K/cumm [facility] ([facility]) Comment:Testing performed by : [facility] [address], Medical [facility] [address], [place] [address] Neutrophil pct 52.0 % [facility] ([facility]) Comment: Interpretive Data Percent cell count reference ranges are not reported, since discordance with absolute values may lead to misinterpretation of CBC data. Current Interpretive Data was last revised on 2022. Testing performed by: [facility] [address], Medical Office [facility] [address], [place] [address] Imm gran pct 0.4 % [facility] ([facility]) Comment: Interpretive Data Percent cell count reference ranges are not reported, since discordance with absolute values may lead to misinterpretation of CBC data. Current Interpretive Data was last revised on 2022. Testing performed by: [facility] [address], Medical Office [facility] [address], [place] [address] Lymphocyte pct 34.6 % [facility] ([facility]) Comment: Interpretive Data Percent cell count reference ranges are not reported, since discordance with absolute values may lead to misinterpretation of CBC data. Current Interpretive Data was last revised on 2022. Testing performed by: [facility] [address], Medical Office [facility] [address], [place] [address] Monocyte pct 10.2 % [facility] ([facility]) Comment: Interpretive Data Percent cell count reference ranges are not reported, since discordance with absolute values may lead to misinterpretation of CBC data. Current Interpretive Data was last revised on 2022. Testing performed by: [facility] [address], Medical Office [facility] [address], [place] [address] Eosinophil pct 2.0 % [facility] ([facility]) Comment: Interpretive Data Percent cell count reference ranges are not reported, since discordance with absolute values may lead to misinterpretation of CBC data. Current Interpretive Data was last revised on 2022. Testing performed by: [facility] [address], Medical Office [facility] [address], [place] [address] Basophil pct 0.8 % [facility] (MAURICIO) Comment: Interpretive Data Percent cell count reference ranges are not reported, since discordance with absolute values may lead to misinterpretation of CBC data. Current Interpretive Data was last revised on 2022. Testing performed by: [facility] [address], Medical Office [facility] [address], [place] [address] Blood 06/20/2024 8:25 AM CDT 06/20/2024 8:29 AM CDT Chalino Chapa MD LAB BLOOD ORDERABLES Aylin freedman Result [facility] (MAURICIO) 1 [facility] [place] [address] * (ABNORMAL) CBC with auto differential (06/20/2024 8:25 AM CDT) WBC 2.5(L) 3.8 - 9.9 K/cumm Comment:Testing performed by : [facility] [address], Medical Office [facility] [address], [place] [address] Hgb 9.7(L) 11.9 - 15.5 g/dL [facility] (MAURICIO) Comment:Testing performed by : [facility] [address], Medical Office [facility] [address], [place] [address] Hct 31.1(L) 35.6 - 45.5 % [facility] ([facility]) Comment:Testing performed by : [facility] [address], Medical Office [facility] [address], [place] [address] Plt 162 150 - 400 K/cumm [facility] (MAURICIO) Comment:Testing performed by : [facility] [address], Medical Office [facility] [address], [place] [address] MPV 11.3 9.1 - 12.3 fL [facility] ([facility]) Comment:Testing performed by : [facility] [address], Medical Office [facility], [place] [address] RBC 2.65(L) 3.90 - 5.20 M/cumm [facility] ([facility]) Comment:Testing performed by : [facility] [address], Medical Office [facility], [place] [address] MCV 117.4(H) 81.3 - 96.4 fL [facility] ([facility]) Comment:Testing performed by : [facility] [address], Medical Office [facility], [place] [address] MCH 36.6(H) 27.1 - 33.3 pg [facility] ([facility]) Comment:Testing performed by : [facility] [address], Medical Office [facility], [place] [address] MCHC 31.2(L) 32.3 - 35.7 g/dL [facility] ([facility]) Comment:Testing performed by : [facility] [address], Medical Office [facility], [place] [address] RDW CV 21.5(H) 11.1 - 14.9 % [facility] ([facility]) Comment:Testing performed by : [facility] [address], Medical Office [facility], [place] [address] RDW SD 93.1(H) 35.7 - 48.1 fL [facility] ([facility]) Comment:Testing performed by : [facility] [address], Medical Office [facility] [address], [place] [address] NRBC abs Not Measured 0.00 - 0.01 K/cumm [facility] ([facility]) Comment:Testing performed by : [facility] [address], Medical Office [facility], [place] [address] Blood 06/20/2024 8:25 AM CDT 06/20/2024 8:29 AM CDT us Chalino Chapa MD LAB BLOOD ORDERABLES Aylin freedman Result [facility] ([facility]) 1 [facility] Department [place] [address] * (ABNORMAL) CBC with auto differential (06/03/2024 11:25 AM BACK END ENGINEER) WBC 2.2(L) 3.8 - 9.9 K/cumm Comment:Testing performed by : [place], [address] Hgb 8.4(L) 11.9 - 15.5 g/dL [facility] ([facility]) Comment:Testing performed by : [facility], [place], [address] Hct 26.0(L) 35.6 - 45.5 % [facility] ([facility]) Comment:Testing performed by : [place], [address] Plt 189 150 - 400 K/cumm [facility] ([facility]) Comment:Testing performed by : [place], [address] MPV 11.8 9.1 - 12.3 fL [facility] ([facility]) Comment:Testing performed by : [place], [address] RBC 2.37(L) 3.90 - 5.20 M/cumm [facility] ([facility]) Comment:Testing performed by : [place], [address] MCV 109.7(H) 81.3 - 96.4 fL [facility] ([facility]) Comment:Testing performed by : [place], [address] MCH 35.4(H) 27.1 - 33.3 pg [facility] ([facility]) Comment:Testing performed by : [place], [address] MCHC 32.3 32.3 - 35.7 g/dL [facility] ([facility]) Comment:Testing performed by : [place], [address] RDW CV 19.7(H) 11.1 - 14.9 % [facility] ([facility]) Comment:Testing performed by : [place], [address] RDW SD 76.7(H) 35.7 - 48.1 fL [facility] ([facility]) Comment:Testing performed by : [facility], [place], [address] NRBC abs Not Measured 0.00 - 0.01 K/cumm [facility] ([facility]AE [facility]) Comment:Testing performed by : [facility], [place], [address] Blood 06/03/2024 11:2 5 AM BACK END ENGINEER 06/03/2024 11:28 AM BACK END ENGINEER us Chalino Chapa MD LAB BLOOD ORDERABLES Aylin l Result [facility] ([facility]) 1 [facility] Department [place] [address] * (ABNORMAL) Manual Differential (06/03/2024 11:25 AM BACK END ENGINEER) Differential Manual Comment:Testing performed by : [facility], [place], [address] Cells Counted 100 [facility] ([facility]) Comment:Testing performed by : [facility], [place], [address] Neutrophil abs 0.7(L) 1.5 - 6.5 K/cumm [facility] ([facility]) Comment:Testing performed by : [facility], [place], [address] Lymphocyte abs 1.3 0.8 - 3.3 K/cumm [facility] ([facility]) Comment:Testing performed by : [place], [address] Monocyte abs 0.2 0.2 - 0.8 K/cumm [facility] ([facility]) Comment:Testing performed by : [facility], [place], [address] Eosinophil abs 0.0 0.0 - 0.5 K/cumm [facility] ([facility]) Comment:Testing performed by : [place], [address] Neutrophil pct 31.0 % [facility] ([facility]) Comment: Interpretive Data Percent cell count reference ranges are not reported, since discordance with absolute values may lead to misinterpretation of CBC data. Current Interpretive Data was last revised on 2017. Testing performed by: [facility] [address], [place], [address] Lymphocyte pct 59.0 % [facility] ([facility]) Comment: Interpretive Data Percent cell count reference ranges are not reported, since discordance with absolute values may lead to misinterpretation of CBC data. Current Interpretive Data was last revised on 2017. Testing performed by: [facility], [facility], [place], [address] Monocyte pct 9.0 % [facility] (MAURICIO) Comment: Interpretive Data Percent cell count reference ranges are not reported, since discordance with absolute values may lead to misinterpretation of CBC data. Current Interpretive Data was last revised on 2017. Testing performed by: [facility], [facility], [place], [address] Eosinophil pct 1.0 % [facility] ([facility]) Comment: Interpretive Data Percent cell count reference ranges are not reported, since discordance with absolute values may lead to misinterpretation of CBC data. Current Interpretive Data was last revised on 2017. Testing performed by: [facility], [place], [address] RBC morphology Consistent with RBC Indicies [facility] (MAURICIO) Comment:Testing performed by : [facility], [place], [address] Platelet estimate Automated Count Confirmed [facility] (MAURICIO) Comment:Testing performed by : [facility], [facility], [place], [address] Blood 06/03/2024 11:2 5 AM BACK END ENGINEER 06/03/2024 11:28 AM BACK END ENGINEER us Chalino Chapa MD LAB BLOOD ORDERABLES Aylin freedman Result [facility] (MCRAE HELENA) 1 [facility] [place] [address] from Last 3 Months Insurance MEDICARE MEDICARE [facility] MEDICARE SUPPLEMENT MEDICARE [facility] MEDICARE SUPPLEMENT Advance Directives For more information, please contact: [phone] Documents on File Type Date Recorded Patient Senior Production Planner Expl anation ADVANCE DIRECTIVE 12/20/2023 8:01 AM Power of Delivery Driver-Medical * Full Code (Latest Code Status on File) Date Activated Date Inactivated Comments 12/11/2023 12:19 PM 12/19/2023 6:45 PM Care Teams Full Time Babysitter Relationship Specialty Start Date End Date Bryan Davey DO PCP - General Internal Medicine 11/14/23
--- OUTSIDE RECORDS SUMMARY | 2024-08-29 10:22 | XMS_ITS | Encounter Summary ---
Author Organization [facility] Health Address [address] [address] Care Team Providers Care Toy Parts Former Supervisor Name Role Phone Mervat Kelley LANDMAN-INSULATION WORKER INTERIOR SURFACE Primary Care Provider + Encounter Details Date Type Department Care Team (Late st Contact Info) Description 10/05/2022 Lab Requisition [facility] - Pathology Lab [address] [place] [address] Jesus Louis MD [address] [address] Anemia, unspecified Social History Tobacco [...] AM CDT) Case Report Flow Cytometry Case: [id number] Authorizing Provider: Jesus Louis MD Collected: 10/05/2022 09:15 AM Ordering Location: [facility] Pathology Lab Received: 10/05/2022 02:15 PM Pathologist: Linda Hauser MD Specimen: Bone Marrow 10/05/2022 4:45 PM CDT [facility] Final Diagnosis Bone marrow, flow cytometric immunophenotypic analysis: - No evidence of non-Hodgkin lymphoma or high-grade myeloid neoplasm. - See interpretation. 10/05/2022 4:45 PM CDT [facility] at 1644 CDT Flow Cytometry Interpretation The bone marrow specimen has a viability of 85%. Within the lymphocyte gate, there is no monoclonal B-cell population identified (kappa:lambda ratio = 2.3:1). There is no expanded T-cell population seen. By CD34, 1.1% of all events analyzed are blasts. A bone marrow aspirate smear prepared from the flow cytometry specimen is reviewed for quality lead purposes. The bone marrow specimen shows no [...] ID # [id number] 10/05/2022 4:45 PM CDT [facility] Number of markers 10 were performed. A-2 Flow CD10 A-3 Flow CD13 A-5 Flow CD20 A-1 Flow CD5 A-4 Flow CD19 A-6 Flow CD33 A-7 Flow CD34 A-8 Flow CD45 A-9 Gratiot+CD19+ A-10 Lambda+CD19+ 10/05/2022 4:45 PM CDT [facility] Pathologist Location at [facility] 10/05/2022 4:45 PM CDT [facility] Disclaimer Test performed at [facility], [address] [place], [place], [address]. *The established laboratory minimum viability is 70%. [...] PATHOLOGY LAB Embedded Images 4:45 PM CDT [facility] Pathology/Cytolo gy BONE MARROW SPECIMEN / Unknown 10/05/2022 9:15 AM CDT 10/05/2022 2:15 PM CDT Jesus Louis MD LAB - PATHOLOGY/CYTOLOGY ORDERAB LES Final Result Performing Organization Address City/State/[facility] Co de Phone Number [facility] [address] [place] [address]. [address] [phone] documented in this encounter Visit Diagnoses Diagnosis Anemia, unspecified documented in this encounter Care Teams Toy Parts Former Supervisor Relationship Specialty Start Date End Date Mervat Kelley APRN-CNP [address] [address] PCP - General 11/24/21 documented as of this encounter
--- OUTSIDE RECORDS SUMMARY | 2024-08-29 10:22 | XMS_ITS | Encounter Summary ---
Author Organization [facility] Address [address] [place] [address] Care Team Providers Care Job Printer Apprentice Name Role Phone Unavailable Primary Care Provider Unavailabl e Encounter Details Date Type Department Care Team (Late st Contact Info) Description 08/27/2024 External Device Data [facility] ABSTRACTION Provider, Abstract [...]
--- OUTSIDE RECORDS SUMMARY | 2024-08-29 10:22 | XMS_ITS ---
Author Organization [facility] [address] Address [address] [place] [address] Care Team Providers Care [employer] Teacher Name Role Phone Bryan Davey DO Primary Care Provider +1- [phone] Active Problems Problem Noted Date Diagnosed Date [...] (06/06/2018): Added automatically from request for surgery [id number]
--- OUTSIDE RECORDS SUMMARY | 2024-08-29 10:22 | XMS_ITS | Clinical Summary ---
Author Organization [facility] Address [address], [address] [address] Phone Care Team Providers Care Corporate Statistical Financial Analyst Name Role Phone ReinaldotravonMervat APRN Primary Care Provider +1- [phone] Medications polyethylene glycol (MIRALAX) Powder Use entire [...] Insurance MEDICARE [facility] Care Teams Corporate Statistical Financial Analyst Relationship Specialty Start Date End Date Mervat Kelley APRN PCP - General Advanced Practice Nurse 06/12/17
--- OUTSIDE RECORDS SUMMARY | 2024-08-29 10:22 | XMS_ITS | Clinical Summary ---
Author Organization [facility] Facility Address [address] [address] Care Team Providers Care Warehouse Worker 2Nd Shift Name Role Phone Unavailable Primary Care Provider [...]
--- OUTSIDE RECORDS SUMMARY | 2024-08-29 10:22 | XMS_ITS | Referral Summary ---
Author Organization [facility] Building B Address [address] [place] [address] Care Team Providers Care Supervisor [employer] Name Role Phone Bryan Davey DO Primary Care Provider [phone]- [phone] Encounters Date Type Department Care Team Description 08/08/2024 10:30 AM CDT Clinical Support [address] [address] Age-related osteoporosis without current pathological fracture (Primary Dx); MDS (myelodysplastic syndrome) (HCC); Encounter for care related to Port-a-Cath 08/08/2024 9:45 AM CDT Lab [address] [address] MDS (myelodysplastic syndrome) (HCC) 08/08/2024 10:15 AM CDT Office Visit [facility] [address] [place] [address] Medical Office [facility] [address] [place] [address] Milla Armenta, CLAUDIA MDS (myelodysplastic syndrome) (HCC) (Primary Dx) 07/15/2024 10:00 AM CDT Lab [address] [place] [id number] MDS (myelodysplastic syndrome) (HCC) 07/15/2024 10:30 AM CDT Office Visit [facility] [address] [place] [address] Medical Office [address]ld[address] [place] [address] Chalino Chapa MD MDS (myelodysplastic syndrome) (HCC) (Primary Dx) 07/12/2024 Documentation [facility] [address] [place] [address] Office [facility] B [facility] [address] [place] [address] Betty Sewell, ALBERT 06/20/2024 Orders Only [facility] [address] [place] [address] B [facility] [address] [place] [address] Chalino Chapa MD MDS (myelodysplastic syndrome) (HCC) (Primary Dx) 06/20/2024 8:15 AM CDT Lab [address] [place] [address] MDS (myelodysplastic syndrome) (HCC) 06/20/2024 8:45 AM CDT Office Visit [facility] [address] [place] [address] [address] [place] [address] Milla Armenta, REFLEXOLOGIST MDS (myelodysplastic syndrome) (HCC) 06/19/2024 Telephone [facility] [address] [place] [address] B [facility] [address] [place] [address] Clau Cabral CLT 06/03/2024 11:45 AM ONLINE PRODUCER Lab [address] [place] [address] MDS (myelodysplastic syndrome) (HCC) from Last 3 Months Allergies Active Allergy [...] ns:MDS (myelodysplasti c syndrome) (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 before breakfast 30 tablet 4 Active oxyBUTYnin XL (DITROPAN-XL) 5 mg 24 hr tablet Active ibuprofen 200 mg tab/cap Take 2 [...] (06/06/2018): Added automatically from request for surgery [id number] Immunizations Immunization Administration Dates Next Due Influenza, [...] on file Legal Sex Female 1:43 AM ONLINE PRODUCER Gender Identity Not on file Sexual Orientation [...] on file Medical Devices Implanted Type Area Drill Sergeant Device Identifier Shelf Expiration Date Model / Serial / Lot Emre Chaparrita Powerport Mri Airguard 8fr 1 Lumen Attachable Catheter Latex Free [id number] - [id number] Implanted:Qty: 1 on 11/20/2023 by Shade Red MD at [facility] Right: Chest Emre [place] 09/30/2024 [id number] / / [id number] Procedures Procedure Name Priority Date/Time Associated Diagnosis [...] MANUAL DIFFERENTIAL Routine 06/03/2024 1 1:25 AM ONLINE PRODUCER MDS (myelodysplastic syndrome) (HCC) CBC WITH AUTO DIFFERENTIAL Routine 06/03/2024 11:25 AM ONLINE PRODUCER MDS (myelodysplastic syndrome) (HCC) from Last 3 Months Results * eGFR (08/08/2024 10:10 AM CDT) [facility] eGFR >90 >=60 mL/min/1. 73 m2 Comment: [...] was last reviewed 2021. Testing performed by: [place], [address] Blood 08/08/2024 10:1 0 AM CDT 08/08/2024 10:42 AM CDT us Chalino Chapa MD LAB BLOOD ORDERABLES Aylin tano Result [facility] ([facility]) [address] [place] [address] Department [place] [address] * (ABNORMAL) Differential, auto (08/08/2024 10:10 AM CDT) Neutrophil abs 1.01(L) 1.50 - 6.50 K/cumm Comment:Testing performed by : [facility], [place], [address] Imm gran abs 0.02 0.00 - 0.10 K/cumm [facility] ([facility]) Comment:Testing performed by : [place], [address] Lymphocyte abs 0.98 0.80 - 3.30 K/cumm [facility] ([facility]) Comment:Testing performed by : [place], [address] Monocyte abs 0.26 0.20 - 0.80 K/cumm [facility] ([facility]) Comment:Testing performed by : [facility], [place], [address] Eosinophil abs 0.06 0.00 - 0.50 K/cumm [facility] ([facility]) Comment:Testing performed by : [place], [address] Basophil abs 0.02 0.00 - 0.10 K/cumm [facility] ([facility]) Comment:Testing performed by : [place], [address] Neutrophil pct 42.8 % [facility] ([facility]) Comment: Interpretive Data Percent cell count reference ranges are not reported, since discordance with absolute values may lead to misinterpretation of CBC data. Current Interpretive Data was last revised on 2017. Testing performed by: [place], [address] Imm gran pct 0.9 % [facility] ([facility]) Comment: Interpretive Data Percent cell count reference ranges are not reported, since discordance with absolute values may lead to misinterpretation of CBC data. Current Interpretive Data was last revised on 2017. Testing performed by: [place], [address] Lymphocyte pct 41.7 % [facility] ([facility]) Comment: Interpretive Data Percent cell count reference ranges are not reported, since discordance with absolute values may lead to misinterpretation of CBC data. Current Interpretive Data was last revised on 2017. Testing performed by: [place], [address] Monocyte pct 11.1 % [facility] ([facility]) Comment: Interpretive Data Percent cell count reference ranges are not reported, since discordance with absolute values may lead to misinterpretation of CBC data. Current Interpretive Data was last revised on 2017. Testing performed by: [place], [address] Eosinophil pct 2.6 % [facility] ([facility]) Comment: Interpretive Data Percent cell count reference ranges are not reported, since discordance with absolute values may lead to misinterpretation of CBC data. Current Interpretive Data was last revised on 2017. Testing performed by: [place], [address] Basophil pct 0.9 % [facility] ([facility]) Comment: Interpretive Data Percent cell count reference ranges are not reported, since discordance with absolute values may lead to misinterpretation of CBC data. Current Interpretive Data was last revised on 2017. Testing performed by: [place], [address] Blood 08/08/2024 10:1 0 AM CDT 08/08/2024 10:53 AM CDT us Chalino Chapa MD LAB BLOOD ORDERABLES Aylin freedman Result [facility] ([facility]) [address] [place] [address] Department [place] [address] * (ABNORMAL) CBC with auto differential (08/08/2024 10:10 AM CDT) WBC 2.35(L) 3.80 - 9.90 K/cumm Comment:Testing performed by : [place], [address] Hgb 9.7(L) 11.9 - 15.5 g/dL [facility] ([facility]) Comment:Testing performed by : [place], [address] Hct 29.5(L) 35.6 - 45.5 % [facility] ([facility]) Comment:Testing performed by : [place], [address] Plt 155 150 - 400 K/cumm [facility] ([facility]) Comment:Testing performed by : [place], MPV 10.9 9.1 - 12.3 fL [facility] ([facility]) Comment:Testing performed by : [place], RBC 2.54(L) 3.90 - 5.20 M/cumm [facility] ([facility]) Comment:Testing performed by : [place], [address] MCV 116.1(H) 81.3 - 96.4 fL [facility] ([facility]) Comment:Testing performed by : [place], [address] MCH 38.2(H) 27.1 - 33.3 pg [facility] ([facility]) Comment:Testing performed by : [place], [address] MCHC 32.9 32.3 - 35.7 g/dL [facility] ([facility]) Comment:Testing performed by : [facility], [place], [address] RDW CV 14.6 11.1 - 14.9 % [facility] ([facility]) Comment:Testing performed by : [facility], [place], [address] RDW SD 62.4(H) 35.7 - 48.1 fL [facility] ([facility]) Comment:Testing performed by : [facility], [place], [address] NRBC abs 0.00 0.00 - 0.01 K/cumm [facility] ([facility]) Comment:Testing performed by : [facility], [place], [address] Blood 08/08/2024 10:1 0 AM CDT 08/08/2024 10:53 AM CDT Chalino Chapa MD LAB BLOOD ORDERABLES Aylin freedman Result [facility] 1 [facility] Department [place] [address] * (ABNORMAL) Comprehensive metabolic panel (08/08/2024 10:10 AM CDT) Sodium 142 135 - 145 mmol/L Comment:Testing performed by : [facility], [place], [address] Potassium, pl 4.6 3.3 - 4.9 mmol/L [facility] ([facility]) Comment:Testing performed by : [facility], [place], [address] Chloride 104 97 - 110 mmol/L [facility] ([facility]) Comment:Testing performed by : [facility], [place], [address] CO2 30 22 - 32 mmol/L [facility] ([facility]) Comment:Testing performed by : [facility], [place], [address] Anion gap 9 2 - 15 mmol/L [facility] ([facility]) Comment:Testing performed by : [facility], [place], [address] BUN 17 6 - 25 mg/dL [facility] ([facility]) Comment:Testing performed by : [facility], [place], [address] Creatinine 0.55(L) 0.60 - 1.10 mg/dL [facility] ([facility]) Comment:Testing performed by : [facility], [place], [address] Glucose 94 70 - 199 mg/dL [facility] ([facility]) Comment: Interpretive Data Fasting glucose >/= 126 [...] was last revised 2022. Testing performed by: [facility], [place], [address] Calcium 9.2 8.5 - 10.3 mg/dL [facility] ([facility]) Comment:Testing performed by : [facility], [place], [address] Bilirubin, total 0.5 0.1 - 1.2 mg/dL [facility] ([facility]) Comment:Testing performed by : [facility], [place], [address] Protein, pl 6.5 6.5 - 8.5 g/dL [facility] ([facility]) Comment:Testing performed by : [facility], [place], [address] Albumin 4.3 3.5 - 5.0 g/dL [facility] ([facility]) Comment:Testing performed by : [facility], [place], [address] Alk phos 82 40 - 130 Units/L [facility] ([facility]) Comment:Testing performed by : [facility], [place], [address] ALT 52(H) 7 - 45 Units/L [facility] ([facility]) Comment:Testing performed by : [place], [address] AST 24 10 - 45 Units/L [facility] ([facility]) Comment:Testing performed by : [facility], [place], [address] Blood 08/08/2024 10:1 0 AM CDT 08/08/2024 10:42 AM CDT us Chalino Chapa MD LAB BLOOD ORDERABLES Aylin l Result [facility] ([facility]) [address] [place] [address] Department [place] [address] * eGFR (07/15/2024 10:10 AM CDT) eGFR [...] was last reviewed 2021. Testing performed by: [facility], [facility], [place], [address] Blood 07/15/2024 10:1 0 AM CDT 07/15/2024 10:47 AM CDT us Milla Armenta NP LAB BLOOD ORDERABLES Final Result [facility] ([facility]) 1 [facility] Department [place] [address] * Differential, auto (07/15/2024 10:10 AM CDT) Neutrophil abs 1.60 1.50 - 6.50 K/cumm [facility] ([facility]) Comment:Testing performed by : [facility] [address], Medical Office [facility] [address], [place] [address] Imm gran abs 0.01 0.00 - 0.10 K/cumm [facility] ([facility]) Comment:Testing performed by : [facility] [address], Medical Office [facility] [address], [place] [address] Lymphocyte abs 1.01 0.80 - 3.30 K/cumm [facility] ([facility]) Comment:Testing performed by : [facility] [address], Medical Office [facility] [address], [place] [address] Monocyte abs 0.27 0.20 - 0.80 K/cumm [facility] ([facility]) Comment:Testing performed by : [facility] [address], Medical Office [facility] [address], [place] [address] Eosinophil abs 0.07 0.00 - 0.50 K/cumm [facility] ([facility]) Comment:Testing performed by : [facility] [address], Medical Office [facility] [address], [place] [address] Basophil abs 0.02 0.00 - 0.10 K/cumm [facility] ([facility]) Comment:Testing performed by : [facility] [address], Medical Office [facility] [address], [place] [address] Neutrophil pct 53.7 % [facility] ([facility]) Comment: Interpretive Data Percent cell count reference ranges are not reported, since discordance with absolute values may lead to misinterpretation of CBC data. Current Interpretive Data was last revised on 2022. Testing performed by: [facility] [address], Medical Office [facility] [address], [place] [address] Imm gran pct 0.3 % [facility] ([facility]) Comment: Interpretive Data Percent cell count reference ranges are not reported, since discordance with absolute values may lead to misinterpretation of CBC data. Current Interpretive Data was last revised on 2022. Testing performed by: [facility] [address], Medical Office [facility] [address], [place] [address] Lymphocyte pct 33.9 % [facility] ([place]) Comment: Interpretive Data Percent cell count reference ranges are not reported, since discordance with absolute values may lead to misinterpretation of CBC data. Current Interpretive Data was last revised on 2022. Testing performed by: [facility] [address], Medical Office [facility] [address], [place] [address] Monocyte pct 9.1 % [facility] ([place]) Comment: Interpretive Data Percent cell count reference ranges are not reported, since discordance with absolute values may lead to misinterpretation of CBC data. Current Interpretive Data was last revised on 2022. Testing performed by: [facility] [address], Medical Office [facility] [address], [place] [address] Eosinophil pct 2.3 % [facility] ([place]) Comment: Interpretive Data Percent cell count reference ranges are not reported, since discordance with absolute values may lead to misinterpretation of CBC data. Current Interpretive Data was last revised on 2022. Testing performed by: [facility] [address], Medical Office [facility] B [facility] [address], [place] [address] Basophil pct 0.7 % [facility] ([place]) Comment: Interpretive Data Percent cell count reference ranges are not reported, since discordance with absolute values may lead to misinterpretation of CBC data. Current Interpretive Data was last revised on 2022. Testing performed by: [facility] [address], Medical Office [facility] [address], [place] [address] Blood 07/15/2024 10:1 0 AM CDT 07/15/2024 10:23 AM CDT Milla Armenta REFLEXOLOGIST LAB BLOOD ORDERABLES Final Result [facility] ([place]) 1 [facility] Department [place] [address] * (ABNORMAL) CBC with auto differential (07/15/2024 10:10 AM CDT) WBC 2.98(L) 3.80 - 9.90 K/cumm [facility] ([place]) Comment:Testing performed by : [facility] [address], Medical Office Bl [address], [place] [address] Hgb 10.7(L) 11.9 - 15.5 g/dL [facility] ([place]) Comment:Testing performed by : [facility] [address], Medical Office [facility] [address], [place] [address] Hct 33.0(L) 35.6 - 45.5 % [facility] ([place]) Comment:Testing performed by : [facility] [address], Medical Office [facility] [address], [place] [address] Plt 149(L) 150 - 400 K/cumm [facility] ([place]) Comment:Testing performed by : [facility] [address], Medical Office [facility] [address], [place] [address] MPV 10.7 9.1 - 12.3 fL [facility] ([place]) Comment:Testing performed by : [facility] [address], Medical Office [facility] [address], [place] [address] RBC 2.82(L) 3.90 - 5.20 M/cumm [facility] ([place]) Comment:Testing performed by : [facility] [address], Medical Office [facility] [address], [place] [address] MCV 117.0(H) 81.3 - 96.4 fL [facility] ([place]) Comment:Testing performed by : [facility] [address], Medical Office [facility] [address], [place] [address] MCH 37.9(H) 27.1 - 33.3 pg [facility] ([place]) Comment:Testing performed by : [facility] [address], Medical Office [address], [place] [address] MCHC 32.4 32.3 - 35.7 g/dL [facility] ([place]) Comment:Testing performed by : [facility] [address], Medical Office [address], [place] [address] RDW CV 16.8(H) 11.1 - 14.9 % [facility] ([place]) Comment:Testing performed by : [facility] [address], Medical Office [facility] [address], [place] [address] RDW SD 73.1(H) 35.7 - 48.1 fL [facility] ([place]) Comment:Testing performed by : [facility] [address], Medical Office [facility] [address], [place] [address] Blood 07/15/2024 10:1 0 AM CDT 07/15/2024 10:23 AM CDT us Milla Armenta REFLEXOLOGIST LAB BLOOD ORDERABLES Final Result [facility] ([facility]) 1 [facility] Department [place] [address] * (ABNORMAL) Comprehensive metabolic panel (07/15/2024 10:10 AM CDT) Sodium 142 135 - 145 mmol/L Comment:Testing performed by : [facility], [place], [address] Potassium, pl 4.1 3.3 - 4.9 mmol/L [facility] ([place]) Comment:Testing performed by : [facility], [place], [address] Chloride 102 97 - 110 mmol/L [facility] ([place]) Comment:Testing performed by : [facility], [place], [address] CO2 29 22 - 32 mmol/L [facility] ([place]) Comment:Testing performed by : [facility], [place], [address] Anion gap 11 2 - 15 mmol/L [facility] ([place]) Comment:Testing performed by : [facility], [place], [address] BUN 13 6 - 25 mg/dL [facility] ([place]) Comment:Testing performed by : [facility], [place], [address] Creatinine 0.54(L) 0.60 - 1.10 mg/dL [facility] ([place]) Comment:Testing performed by : [facility], [place], [address] Glucose 126 70 - 199 mg/dL [facility] ([facility]) Comment: Interpretive Data Fasting glucose >/= 126 [...] was last revised 2022. Testing performed by: [facility], [place], [address] Calcium 9.5 8.5 - 10.3 mg/dL [facility] ([facility]) Comment:Testing performed by : [place], [address] Bilirubin, total 0.5 0.1 - 1.2 mg/dL [facility] ([facility]) Comment:Testing performed by : [facility], [place], [address] Protein, pl 6.8 6.5 - 8.5 g/dL [facility] ([facility]) Comment:Testing performed by : [facility], [place], [address] Albumin 4.4 3.5 - 5.0 g/dL [facility] ([facility]) Comment:Testing performed by : [facility], [place], [address] Alk phos 90 40 - 130 Units/L [facility] ([facility]) Comment:Testing performed by : [facility], [place], [address] ALT 51(H) 7 - 45 Units/L [facility] ([facility]) Comment:Testing performed by : [facility], [place], [address] AST 24 10 - 45 Units/L [facility] ([facility]) Comment:Testing performed by : [facility], [place], [address] Blood 07/15/2024 10:1 0 AM CDT 07/15/2024 10:47 AM CDT us Milla Armenta NP LAB BLOOD ORDERABLES Final Result [facility] ([facility]) 1 [facility] Department [place] [address] * eGFR (06/20/2024 8:30 AM CDT) eGFR [...] was last reviewed 2021. Testing performed by: [place], [address] Blood 06/20/2024 8:30 AM CDT 06/20/2024 8:46 AM CDT us Chalino Chapa MD LAB BLOOD ORDERABLES Aylin l Result [facility] ([facility]) 1 [facility] Department [place] [address] * (ABNORMAL) Comprehensive metabolic panel (06/20/2024 8:30 AM CDT) Sodium 142 135 - 145 mmol/L Comment:Testing performed by : [place], [address] Potassium, pl 4.4 3.3 - 4.9 mmol/L [facility] ([place]) Comment:Testing performed by : [facility], [facility], [place], [address] Chloride 102 97 - 110 mmol/L [facility] ([place]) Comment:Testing performed by : [facility], [facility], [place], [address] CO2 31 22 - 32 mmol/L [facility] ([place]) Comment:Testing performed by : [facility], [facility], [place], [address] Anion gap 9 2 - 15 mmol/L [facility] ([place]) Comment:Testing performed by : [facility], [place], [address] BUN 13 6 - 25 mg/dL [facility] ([place]) Comment:Testing performed by : [facility], [facility], [place], [address] Creatinine 0.58(L) 0.60 - 1.10 mg/dL [facility] ([place]) Comment:Testing performed by : [facility], [place], [address] Glucose 134 70 - 199 mg/dL [facility] [...] was last revised 2022. Testing performed by: [facility], [place], [address] Calcium 9.7 8.5 - 10.3 mg/dL [facility] ([place]) Comment:Testing performed by : [facility], [place], [address] Bilirubin, total 0.5 0.1 - 1.2 mg/dL [facility] ([place]) Comment:Testing performed by : [facility], [place], [address] Protein, pl 6.6 6.5 - 8.5 g/dL [facility] ([facility]) Comment:Testing performed by : [facility], [facility], [place], [address] Albumin 4.2 3.5 - 5.0 g/dL [facility] ([facility]) Comment:Testing performed by : [facility], [facility], [place], [address] Alk phos 101 40 - 130 Units/L [facility] ([facility]) Comment:Testing performed by : [facility], [facility], [place], [address] ALT 44 7 - 45 Units/L [facility] ([facility]) Comment:Testing performed by : [facility], [facility], [place], [address] AST 25 10 - 45 Units/L [facility] ([facility]) Comment:Testing performed by : [facility], [place], [address] Blood 06/20/2024 8:30 AM CDT 06/20/2024 8:46 AM CDT Chalino Chapa MD LAB BLOOD ORDERABLES Aylin freedman Result [facility] (PRE[facility]) 1 [facility] Department [place] [address] * (ABNORMAL) Differential, auto (06/20/2024 8:25 AM CDT) Neutrophil abs 1.3(L) 1.5 - 6.5 K/cumm Comment:Testing performed by : [facility] [address], Medical Office [facility] [address], [place] [address] Imm gran abs 0.0 0.0 - 0.1 K/cumm [facility] ([facility]) Comment:Testing performed by : [facility] [address], Medical Office [facility] [address], [place] [address] Lymphocyte abs 0.9 0.8 - 3.3 K/cumm [facility] (PREEMPTION) Comment:Testing performed by : [facility] [address], Medical Office [facility] [address], [place] [address] Monocyte abs 0.3 0.2 - 0.8 K/cumm [facility] ([place]) Comment:Testing performed by : [facility] [address], Medical Office [address], [place] [address] Eosinophil abs 0.1 0.0 - 0.5 K/cumm [facility] ([place]) Comment:Testing performed by : [facility] [address], Medical Office [facility] [address], [place] [address] Basophil abs 0.0 0.0 - 0.1 K/cumm [facility] ([place]) Comment:Testing performed by : [facility] [address], Medical Office [facility] [address], [place] [address] Neutrophil pct 52.0 % [facility] ([place]) Comment: Interpretive Data Percent cell count reference ranges are not reported, since discordance with absolute values may lead to misinterpretation of CBC data. Current Interpretive Data was last revised on 2022. Testing performed by: [facility] [address], Medical Office [facility] [address], [place] [address] Imm gran pct 0.4 % [facility] ([place]) Comment: Interpretive Data Percent cell count reference ranges are not reported, since discordance with absolute values may lead to misinterpretation of CBC data. Current Interpretive Data was last revised on 2022. Testing performed by: [facility] [address], Medical Office [facility] [address], [place] [address] Lymphocyte pct 34.6 % [facility] ([place]) Comment: Interpretive Data Percent cell count reference ranges are not reported, since discordance with absolute values may lead to misinterpretation of CBC data. Current Interpretive Data was last revised on 2022. Testing performed by: [facility] [address], Medical Office [facility] [address], [place] [address] Monocyte pct 10.2 % [facility] ([place]) Comment: Interpretive Data Percent cell count reference ranges are not reported, since discordance with absolute values may lead to misinterpretation of CBC data. Current Interpretive Data was last revised on 2022. Testing performed by: [facility] [address], Medical Office [facility] [address], [place] [address] Eosinophil pct 2.0 % [facility] ([place]) Comment: Interpretive Data Percent cell count reference ranges are not reported, since discordance with absolute values may lead to misinterpretation of CBC data. Current Interpretive Data was last revised on 2022. Testing performed by: [facility] [address], Medical Office [facility] [address], [place] [address] Basophil pct 0.8 % [facility] ([place]) Comment: Interpretive Data Percent cell count reference ranges are not reported, since discordance with absolute values may lead to misinterpretation of CBC data. Current Interpretive Data was last revised on 2022. Testing performed by: [facility] [address], Medical Office [facility] [address], [place] [address] Blood 06/20/2024 8:25 AM CDT 06/20/2024 8:29 AM CDT us Chalino Chapa MD LAB BLOOD ORDERABLES Aylin freedman Result [facility] ([place]) 1 [facility] [place] [address] * (ABNORMAL) CBC with auto differential (06/20/2024 8:25 AM CDT) WBC 2.5(L) 3.8 - 9.9 K/cumm Comment:Testing performed by : [facility] [address], Medical Office [facility] [address], [place] [address] Hgb 9.7(L) 11.9 - 15.5 g/dL [facility] ([place]) Comment:Testing performed by : [facility] [address], Medical Office [facility] [address], [place] [address] Hct 31.1(L) 35.6 - 45.5 % [facility] ([place]) Comment:Testing performed by : [facility] [address], Medical Office [facility] [address], [place] [address] Plt 162 150 - 400 K/cumm [facility] ([place]IO) Comment:Testing performed by : [facility] [address], Medical Office [facility] [address], [place] [address] MPV 11.3 9.1 - 12.3 fL [facility] ([place]) Comment:Testing performed by : [facility] [address], Medical Office [facility] [address], [place] [address] RBC 2.65(L) 3.90 - 5.20 M/cumm [facility] ([place]) Comment:Testing performed by : [facility] [address], Medical Office [facility] [address], [place] [address] MCV 117.4(H) 81.3 - 96.4 fL [facility] ([place]) Comment:Testing performed by : [facility] [address], Medical Office [facility] [address], [place] [address] MCH 36.6(H) 27.1 - 33.3 pg [facility] ([place]) Comment:Testing performed by : [facility] [address], Medical Office [facility] [address], [place] [address] MCHC 31.2(L) 32.3 - 35.7 g/dL [facility] ([place]) Comment:Testing performed by : [facility] [address], Medical Office [facility] [address], [place] [address] RDW CV 21.5(H) 11.1 - 14.9 % [facility] ([place]) Comment:Testing performed by : [facility] [address], Medical Office [facility] [address], [place] [address] RDW SD 93.1(H) 35.7 - 48.1 fL [facility] ([place]) Comment:Testing performed by : [facility] [address], Medical Office [facility] B [facility] [address], [place] [address] NRBC abs Not Measured 0.00 - 0.01 K/cumm [facility] ([place]) Comment:Testing performed by : [facility] [address], Medical Office [facility] B [facility] [address], [place] [address] Blood 06/20/2024 8:25 AM CDT 06/20/2024 8:29 AM CDT us Chalino Chapa MD LAB BLOOD ORDERABLES Aylin freedman Result [facility] (PREEMPTION) 1 [facility] Department [place] [address] * (ABNORMAL) CBC with auto differential (06/03/2024 11:25 AM ONLINE PRODUCER) WBC 2.2(L) 3.8 - 9.9 K/cumm Comment:Testing performed by : [place], [address] Hgb 8.4(L) 11.9 - 15.5 g/dL [facility] ([place]) Comment:Testing performed by : [place], [address] Hct 26.0(L) 35.6 - 45.5 % [facility] ([place]) Comment:Testing performed by : [place], [address] Plt 189 150 - 400 K/cumm [facility] ([place]) Comment:Testing performed by : [place], [address] MPV 11.8 9.1 - 12.3 fL [facility] ([place]) Comment:Testing performed by : [place], [address] RBC 2.37(L) 3.90 - 5.20 M/cumm [facility] ([place]) Comment:Testing performed by : [place], [address] MCV 109.7(H) 81.3 - 96.4 fL [facility] ([place]) Comment:Testing performed by : [place], [address] MCH 35.4(H) 27.1 - 33.3 pg [facility] ([place]) Comment:Testing performed by : [place], [address] MCHC 32.3 32.3 - 35.7 g/dL [facility] ([place]) Comment:Testing performed by : [place], [address] RDW CV 19.7(H) 11.1 - 14.9 % [facility] ([place]) Comment:Testing performed by : [place], [address] RDW SD 76.7(H) 35.7 - 48.1 fL [facility] (PREEMPTION) Comment:Testing performed by : [place], [address] NRBC abs Not Measured 0.00 - 0.01 K/cumm [facility] (PREEMPTION) Comment:Testing performed by : [facility], [place], [address] Blood 06/03/2024 11:2 5 AM ONLINE PRODUCER 06/03/2024 11:28 AM ONLINE PRODUCER us Chalino Chapa MD LAB BLOOD ORDERABLES Aylin freedman Result [facility] (PREEMPTION) 1 [facility] Department [place] [address] * (ABNORMAL) Manual Differential (06/03/2024 11:25 AM ONLINE PRODUCER) Differential Manual Comment:Testing performed by : [facility], [place], [address] Cells Counted 100 [facility] (PREEMPTION) Comment:Testing performed by : [facility], [place], [address] Neutrophil abs 0.7(L) 1.5 - 6.5 K/cumm [facility] (PREEMPTION) Comment:Testing performed by : [place], [address] Lymphocyte abs 1.3 0.8 - 3.3 K/cumm [facility] (PREEMPTION) Comment:Testing performed by : [facility], [place], [address] Monocyte abs 0.2 0.2 - 0.8 K/cumm [facility] (PREEMPTION) Comment:Testing performed by : [place], [address] Eosinophil abs 0.0 0.0 - 0.5 K/cumm [facility] (PREEMPTION) Comment:Testing performed by : [place], [address] Neutrophil pct 31.0 % [facility] (PREEMPTION) Comment: Interpretive Data Percent cell count reference ranges are not reported, since discordance with absolute values may lead to misinterpretation of CBC data. Current Interpretive Data was last revised on 2017. Testing performed by: [facility], [place], [address] Lymphocyte pct 59.0 % [facility] ([place]) Comment: Interpretive Data Percent cell count reference ranges are not reported, since discordance with absolute values may lead to misinterpretation of CBC data. Current Interpretive Data was last revised on 2017. Testing performed by: [place], [address] Monocyte pct 9.0 % [facility] ([place]) Comment: Interpretive Data Percent cell count reference ranges are not reported, since discordance with absolute values may lead to misinterpretation of CBC data. Current Interpretive Data was last revised on 2017. Testing performed by: [facility], [facility], [place], [address] Eosinophil pct 1.0 % [facility] ([place]) Comment: Interpretive Data Percent cell count reference ranges are not reported, since discordance with absolute values may lead to misinterpretation of CBC data. Current Interpretive Data was last revised on 2017. Testing performed by: [facility], [facility], [place], [address] RBC morphology Consistent with RBC Indicies [facility] ([place]) Comment:Testing performed by : [facility], [place], [address] Platelet estimate Automated Count Confirmed [facility] ([place]) Comment:Testing performed by : [facility], [place], [address] Blood 06/03/2024 11:2 5 AM ONLINE PRODUCER 06/03/2024 11:28 AM ONLINE PRODUCER us Chalino Chapa MD LAB BLOOD ORDERABLES Aylin freedman Result [facility] (PREEMPTION) 1 [facility] Department [place] [address] from Last 3 Months Insurance MEDICARE MEDICARE [facility] MEDICARE SUPPLEMENT MEDICARE [facility] MEDICARE SUPPLEMENT Advance Directives For more information, please contact: [phone] Documents on File Type Date Recorded Patient Steel Pan Form Placing Supervisor Expl anation ADVANCE DIRECTIVE 12/20/2023 8:01 AM Power of It Compliance Analyst-Medical * Full Code (Latest Code Status on File) Date Activated Date Inactivated Comments 12/11/2023 12:19 PM 12/19/2023 6:45 PM Care Teams Supervisor Sintering Plant Relationship Specialty Start Date End Date Bryan Davey DO PCP - General Internal Medicine 11/14/23
--- OUTSIDE RECORDS SUMMARY | 2024-08-29 10:22 | XMS_ITS | Encounter Summary ---
Author Organization [facility] Health Address [address] [place] [address] Care Team Providers Care Pipe Line Inspector Name Role Phone Mervat Kelley GLASSIE-TIN POURER Primary Care Provider + Encounter Details Date Type Department Care Team (Late st Contact Info) Description 10/06/2022 Lab Requisition [facility] - Pathology Lab [address] [place] [address] Jesus Louis MD [address] [address] Illness, unspecified Social History Tobacco [...] Report Bone Marrow Patholog y Report Case: [id number] Authorizing Provider: Jesus Louis MD Collected: 10/05/2022 09:15 AM Ordering Location: [facility] Pathology Lab Received: 10/06/2022 01:27 PM Pathologist: Linda Hauser MD Specimens: A) - Bone Marrow Clot, Fluoro-guided bone marrow aspiration B) - Bone Marrow Core, Fluoro-guided bone marrow core bx 10/07/2022 1:40 PM CDT [facility] PATHOLOGY LAB Final Diagnosis Bone marrow, aspirate, [...] normal. Platelet morphology: normal. 10/07/2022 1:40 PM [facility] Bone Marrow Aspirate [...] Control is appropriately reactive. 10/07/2022 1:40 PM [facility] Bone Marrow Core [...] an increased number of early erythroid progenitors. [id number] demonstrates additional, more mature erythroid lineage cells, confirming erythroid hyperplasia. Myeloperoxidase is positive in relatively fewer numbers of myeloid precursors. CD3 and CD20 show a normal number and distribution of T-cells and B-cells, respectively. Reticulin staining shows no significant marrow fibrosis (MF-0), and trichrome staining shows no collagen deposition. 10/07/2022 1:40 PM [facility] Flow Cytometry Summary Concurrent flow cytometry ([id number]) shows no evidence of non-Hodgkin lymphoma or high-grade myeloid neoplasm. 10/07/2022 1:40 PM [facility] Clinical History 82 year old woman with macrocytic anemia. 10/07/2022 1:40 PM CDT [facility] Materials Received Received are 22 slides and 3 blocks (A1, A2; B1) labeled [id number] along with a copy of the outside pathology report. The materials originate from [facility], [address] [place] [address] [place] [id number]. All original materials are returned to the referring institution, along with a copy of our final report. 10/07/2022 1:40 PM CDT [facility] Pathologist Location at [facility] 10/07/2022 1:40 PM CDT [facility] Disclaimer The performance characteristics of all immunohistochemical and indirect immunofluorescence stains (if any) cited in this report were determined by the Histopathology Laboratory of [facility]. Some of these tests were [...] attending (teaching) pathologist. 10/07/2022 1:40 PM CDT [facility] Embedded Images 10/07/2022 1:40 PM CDT [facility] LAB Pathology/Cytology BONE MARROW SPECIMEN / Unknown 10/05/2022 9:15 AM CDT 10/06/2022 1:27 PM CDT Miscellaneous samples (specimen) BONE MARROW SPECIMEN / Unknown 10/05/2022 9:15 AM CDT 10/06/2022 1:27 PM CDT us Jesus Louis MD LAB - PATHOLOGY/CYTOLOGY ORDERAB LES Final Result [facility] LAB [address] [place], [place] [address] [place] [address] documented in this encounter Visit Diagnoses Diagnosis Illness, unspecified documented in this encounter Care Teams Pipe Line Inspector Relationship Specialty Start Date End Date Mervat Kelley APRN-DAVIS [address] [phone] PCP - General 11/24/21 documented as of this encounter
--- OUTSIDE RECORDS SUMMARY | 2024-08-29 10:22 | XMS_ITS | Clinical Summary ---
Author Organization [facility] Address [address] [facility] [place] [address] Care Team Providers Care Vending Machine Mechanic Name Role Phone Mervat Kelley GERA-HOST/HOSTESS GROUND Primary Care Provider + Source Comments [facility],non-owned Affiliates and Associated Physician Practices is amultiple site organization consisting of ambulatory clinics and hospital sitesin [place], [place], [place] and [place]. This disclosure is being madepursuant to the Care Everywhere program and may not contain all information available regarding this patient. Last updated 17.[facility] Allergies Active Allergy Reactions Criticality Noted Date [...] daily Active fish oil/omega-3 fatty acids (Promega;Cardi -Burt 3) 1000 MG capsule Take 2 (two) [...] 71.7 kg (158 lb) 04/06/2022 10:56 AM ALLERGIST/MD Height 152.4 cm (5') 12/22/2021 12:39 PM [...] age to complete this topic [facility] Advance Directives * Full Code (Latest Code Status on File) Date Activated Date Inactivated Comments 09/29/2021 4:59 AM 09/30/2021 2:57 PM Care Teams Vending Machine Mechanic Relationship Specialty Start Date End Date Mervat Kelley APRN-CNP [address] [phone] PCP - General 11/24/21
--- OUTSIDE RECORDS SUMMARY | 2024-08-29 10:22 | XMS_ITS | Encounter Summary ---
Author Organization [facility] Address [address] [facility] [place] [address] Care Team Providers Care Home Care Attendant Name Role Phone Andie Ang MD Primary Care Provider + [phone] Mervat Kelley Primary Care Provider + Andie Ang MD Primary Care Provider + [phone] Mervat Kelley Primary Care Provider + Andie Ang MD Primary Care Provider + [phone] Mervat Kelley Primary Care Provider + Encounter Details Date Type Department Care Team (Late st Contact Info) Description 11/15/2018 Lab Requisition [facility] [address] [facility] [place] [address] Sarath De Guzman MD [address] [place] [address] Social History Tobacco Use Types Packs/Day Years [...] AM CDT) Case Report Dermatopathology Report Case: [id number] Authorizing Provider: Sarath De Guzman MD Collected: 11/14/2018 12:00 AM Ordering Location: [facility] DermPath Lab Received: 11/15/2018 12:29 PM Pathologist: [...] specimen consists of a shave biopsy measuring [id number]. Jar 0. 12:59 PM CDT DERMATOPATHOLOGY LABORATORY [...] characteristic determined by the Dermatopathology Laboratory at [facility], directed by Dr. Frederick Schofield. These tests need not be, and therefore are not, approved by the [place] Food and Drug Administration. The tests are used for clinical purposes. Billing Codes Specimen Charges Stain Charges 48616 1 12:59 PM CDT DERMATOPATHOLOGY LABORATORY Embedded Images 12:59 PM CDT DERMATOPATHOLOGY LABORATORY Pathology/Cytolog y TISSUE SPECIMEN FROM SKIN / Unknown 11/14/2018 11/15/2018 12:29 PM CDT Sarath De Guzman MD LAB - PATHOLOGY/CYTOLOGY ORD ERABLES Final Result DERMATOPATHOLOGY LABORATORY [facility] - Department of Dermatology [address] [facility], [address]th [place] [address], [facility] [phone] documented in this encounter Visit Diagnoses Not on filedocumented in this encounter Care Teams Home Care Attendant Relationship Specialty Start Date End Date Andie Ang MD [address] [phone] PCP - General 08/18/17 09/29/21 Mervat Kelley APRN-QUALITY CONTROLLER [address] [place] [phone] PCP - General Nurse Practitioner 09/30/21 09/30/21 Andie Ang MD [address] [phone] PCP - General 10/01/21 10/12/21 Mervat Kelley APRN-QUALITY CONTROLLER [address] [phone] PCP - General 10/13/21 10/31/21 Andie Ang MD [address] [phone] PCP - General 11/01/21 11/23/21 Mervat Kelley APRN-QUALITY CONTROLLER [address] [phone] PCP - General 11/24/21 documented as of this encounter
--- OUTSIDE RECORDS SUMMARY | 2024-08-29 10:22 | XMS_ITS | Clinical Summary ---
Author Organization [facility] Address [address] [place] [address] Care Team Providers Care Dental Appliance Repairer Name Role Phone Unavailable Primary Care Provider [...] Encounters Date Type Department Care Team Description 08/27/2024 External Device Data [facility] Provider, Abstract 08/21/2024 External Device Data [facility] Provider, Abstract 08/20/2024 External Device Data [facility] Provider, Abstract [...] 04/03/2016 Insurance MEDICARE PART A AND B [facility]
[2024-08-29 11:13] LABS: Basophils Percent Auto 1.2 % (0.2-1.2); Eosinophils Percent Auto 1.6 % (0-4.4); Hematocrit 24.7 % (37.0-47.0); Hemoglobin 7.8 g/dL (12.0-15.0); Immature Granulocyte Absolute 0.04 K/mm3 (0.00-0.031); Immature Granulocyte Percent A 1.6 % (0-0.5); Lymphocytes Absolute Auto 0.67 K/mm3 (0.9-3.2); Lymphocytes Percent Auto 26.6 % (18.3-44.2); Mean Corpuscular HGB Conc 31.6 g/dl (32-36); Mean Corpuscular Hemoglobin 37.5 pg (26-34); Mean Corpuscular Volume 118.8 fl (80-100); Mean Platelet Volume 11.6 fl (7.4-10.4); Monocytes Absolute Auto 0.3 K/mm3 (0.1-0.6); Monocytes Percent Auto 11.5 % (2.6-8.5); Neutrophils Absolute Auto 1.5 K/mm3 (1.3-6.7); Neutrophils Percent Auto 57.5 % (45.5-73.1); Nucleated Red Blood Cells Perc 1.6 % (0.0-0.2); Platelet Count Result 160 k/mm3 (150-375); Red Blood Count 2.08 M/mm3 (4.2-5.4); Red Cell Distribution Width 15.5 % (11.5-14.5); White Blood Count 2.5 K/mm3 (4.5-10.0)
[2024-08-29 11:19] LABS: Alanine Aminotransferase 28 U/L (6-35); Albumin Level 4.1 g/dL (3.5-5.1); Alkaline Phosphatase 66 U/L (38-126); Anion Gap 5 mmol/L (4-12); Aspartate Amino Transferase 38 U/L (14-36); Bilirubin,Total 0.8 mg/dL (0.2-1.3); Blood Urea Nitrogen 10 mg/dL (7-17); Calcium 7.9 mg/dL (8.4-10.2); Carbon Dioxide 30 mmol/L (22-30); Chloride 104 mmol/L (98-107); Estimated Glomerular Filt Rate > 60; Glucose 124 mg/dL (65-110); Potassium 4.7 mmol/L (3.4-5.0); Sodium 139 mmol/L (137-145)
[2024-08-29 11:34] LABS: Platelet Estimate Adequate (Adequate); Schistocytes None Seen
[2024-08-29 11:35] LABS: Atypical Lymphocytes Present
[2024-08-29 11:37] LABS: Macrocytosis 2+ (NORMAL)
== END 2024-08-29 10:18 | disposition home or self-care (01) ==
LOC: ANHGOSHLAB 10:19
PROVIDERS: PCP Internal Medicine; Visit Provider Nurse Practitioner
DX: E03.9 Hypothyroidism, unspecified (principal); D46.9 Myelodysplastic syndrome, unspecified
CPT/HCPCS: 36415; 80053; 84443; 85025

== ENCOUNTER 2024-09-28 09:59 | Emergency (ER) | payer MEDICARE, SELFPAY ==
--- NOTE | 2024-09-28 10:14 | ED_ITS ---
HPI - Female Genitourinary General Chief complaint: Urogenital-Female Stated complaint: urinary irritation/headache/sinus congestion Time Seen by Provider: 09/28/24 10:45 Source: patient Mode of arrival: ambulatory Limitations: no limitations History of Present Illness HPI Narrative: Venessa is an 84-year-old female patient presenting to the clinic today with complaints of headache, sinus congestion, and possible UTI. Has taken azo for her urinary symptoms. She reports symptoms started on Monday with sinus pressure and congestion and urinary frequency. This morning she was unable to urinate till after she took azo. She denies any known fevers. History of MDS blood cancer. Is currently taking chemo and has been having have blood transfusions weekly on Mondays for the past couple weeks. States that she is feeling more weak than normal. Denies any chest pain or shortness of breath. Temperature is 37.7? and she is slightly tachycardic in the clinic with a heart rate of 102. Blood pressure stable 166/67 and she is satting 100% on room air Related Data Home Medications ?Medication ?Instructions ?Recorded ?Confirmed ?Last Taken ?Type lansoprazole 15 mg capsule,delayed 15 mg PO DAILY 04/11/22 09/04/24 08/12/23 History release (Prevacid 24Hr) loratadine 10 mg tablet (Claritin) 10 mg PO DAILY 04/11/22 09/04/24 08/12/23 History cyanocobalamin (vitamin B-12) 1,000 mcg PO DAILY 09/29/22 09/04/24 08/12/23 History 1,000 mcg capsule spironolactone 25 mg tablet 25 mg PO DAILY 12/26/22 09/04/24 08/12/23 History calcium 500 mg-vitamin D3 100 2 tablet PO DAILY 05/31/23 09/04/24 08/12/23 History unit-vitamin K 40 mcg chewable tablet acyclovir 400 mg tablet 400 mg PO TID 01/03/24 09/04/24 Unknown History black cohosh 540 mg capsule 20 mg PO DAILY 08/29/24 09/04/24 Unknown History Allergies Allergy/AdvReac Type Severity Reaction Status Date / Time cephalexin AdvReac Mild YEAST Verified 09/28/24 10:33 INFECTION cefdinir AdvReac Unknown Unknown Verified 09/28/24 10:33 clarithromycin AdvReac Unknown Unknown Verified 09/28/24 10:33 clindamycin AdvReac Unknown Other Verified 09/28/24 10:33 codeine AdvReac Unknown Nervousness Verified 09/28/24 10:33 dexamethasone AdvReac Unknown Unknown Verified 09/28/24 10:33 doxycycline AdvReac Unknown Unknown Verified 09/28/24 10:33 morphine AdvReac Unknown Headache Verified 09/28/24 10:33 tobramycin AdvReac Unknown Unknown Verified 09/28/24 10:33 Review of Systems Review of Systems: Pertinent positives per HPI. Patient denies any fever, chills, rash,visual changes, dizziness, cough, shortness of breath, chest pain, palpitations, nausea, vomiting, diarrhea, constipation, abdominal pain PMFSH Past Medical History Medical History Port-A-Cath in place Acute on chronic anemia Rectal bleeding Macrocytic anemia Rhinitis ILD (interstitial lung disease) Vulvar inflammation Obesity DVT prophylaxis Elevated LFTs Hiatal hernia Adrenal adenoma benign Hepatic steatosis and liver cyst Hypothyroidism Pneumonia due to COVID-19 virus COVID-19 virus infection Acute respiratory failure with hypoxia Acid reflux Hypertension Irritable bowel Migraines Osteoporosis Surgical History Surgical History History of colonoscopy with polypectomy most recent December 2018 with edematous polyps History of reconstructive repair of rectocele (~1995) History of bilateral cataract extraction History of medial meniscus repair of right knee (~2014) S/P laparoscopic-assisted sigmoidectomy (~08/2018) due to chronic diverticulitis History of carpal tunnel surgery of right wrist (~2015) History of hemorrhoidectomy (~2011) History of vaginal hysterectomy (~1995) without oophorectomy History of ankle surgery (~2000) ORIF right ankle Family History Family History Sibling Hypertension Hyperlipidemia Thyroid disease it sounds as if the patient sister likely had Graves disease with a thyroidectomy and then became ill because her thyroid hormone was not replaced. Acute myocardial infarction Brother early-onset Artificial cardiac pacemaker brother Mother Hypertension Thyroid disease It sounds as if her mother likely had Graves disease Father Emphysema lung Grandparent Lung cancer Other Carcinoma of colon Family history of malignant neoplasm of breast Family history of pancreatic cancer Social History Social History Social History: The patient lives with her of 54 years. They raised a son and a daughter. Their son as 3 daughters and the daughter has a son and a daughter. She is a lifelong nonsmoker. She did have a lot of secondhand smoke exposure as a child. She rarely drinks alcohol and only in small amounts. Primary care provider: Bryan Davey DO Smoking status: Never smoker Second hand tobacco smoke exposure: Yes (10-15 years ago) Alcohol intake: never Alcohol use details: Only rare alcohol use in small amounts. 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 Gender identity (if verbalized by the patient): Female Spiritual care concerns: No Comments At the time of my signature, I reviewed and agree with the nursing past medical, surgical, social, and family history. There is no relevant family history pertinent to the patient complaint. Exam Narrative: General: Well-developed, well nourished, in no apparent distress, pale appearing, chronically ill Head: Normocephalic, atraumatic Eyes: Pupils equally round and reactive to light bilaterally, EOM intact, sclera and conjunctive clear/pale, no discharge, lids normal Ears: TMs intact and clear, ear canals clear, no drainage, grossly hearing normal. Nose: Nares patent, clear nasal discharge, very mild inflammation, no sinus tenderness. Mouth: Oral pharynx without lesions or masses, good dentition, MMM. Neck: Supple, trachea midline, no enlargement of anterior or posterior cervical nodes, no thyroid masses or goiter palpable. Cardio: Regular rate and rhythm, s1 and s2 normal, no murmur appreciated. Resp: Clear to auscultation bilaterally, no rhonchi, rales, wheezing or rubs Abdomen: Soft, pliable, bowel sounds present in all quadrants, non-tender to palpation, no organomegly, no CVAT tenderness. Course Course Emergency Course: Portions of this record may have been created with voice recognition software. Level of Care: Express Care Visit Vital Signs Vital signs: Vital Signs Temperature 37.7 C H 09/28/24 10:37 Pulse Rate 102 H 09/28/24 10:37 Respiratory Rate 20 09/28/24 10:37 Blood Pressure 166/67 H 09/28/24 10:37 Pulse Oximetry 100 09/28/24 10:37 Oxygen Delivery Room Air 09/28/24 10:37 Temperature 37.7 C H 09/28/24 10:37 Pulse Rate 102 H 09/28/24 10:37 Respiratory Rate 20 09/28/24 10:37 Blood Pressure 166/67 H 09/28/24 10:37 Pulse Oximetry 100 09/28/24 10:37 Oxygen Delivery Room Air 09/28/24 10:37 Vital signs reviewed Transfer Transfered to: [place] Transportation: Other (Private car) Transfer rationale: Weakness, MDS blood cancer, pale Accepting physician: Dr. Pabon Transfer comments: private car MDM - Female Genitourinary MDM Narrative Medical decision making narrative: At the time of visit patient is resting comfortably on the exam table. Patient appears to be nontoxic. Chronically ill-appearing Plan: Patient is taking azo so urinalysis was not performed. We will send urine for culture. Recommend transfer to the ER as patient is reporting increase in weakness-she is slightly tachycardic with a low-grade fever. Due to have blood work and blood transfusion on Monday. Patient agrees to transfer and would like to go to [place] emergency room. Patient has metal stamper Dr. Chapa at [facility]-recommend transfer there however patient again would like to go to [place] emergency room. Differential Diagnosis Differential diagnosis: Likely urinary tract infection, cystitis and other (COVID, influenza, sinusitis, URI, pneumonia, hypovolemia, generalized malaise and fatigue) Discharge Plan Discharge Clinical Impression: Weakness, Symptoms of urinary tract infection Patient Disposition: Acute Care Hospital Condition: Stable Patient Language: Icelandic Prescriptions: No Action lansoprazole [Prevacid 24Hr] 15 mg capsule,delayed release(DR/EC) 15 mg PO DAILY loratadine [Claritin] 10 mg tablet 10 mg PO DAILY cyanocobalamin (vitamin B-12) 1,000 mcg capsule 1,000 mcg PO DAILY spironolactone 25 mg tablet 25 mg PO DAILY acyclovir 400 mg tablet 400 mg PO TID black cohosh 540 mg capsule 20 mg PO DAILY clonazepam 0.5 mg tablet 0.25 mg PO BID Qty: 90 0RF calcium-vitamin D3-vitamin K 500-100-40 mg-unit-mcg Tablet,Chewable 2 tablet PO DAILY levothyroxine 75 mcg tablet See Rx Instructions .ROUTE .COMPLEX Qty: 90 0RF Dose Instruction: Take 1 tablet by mouth once daily Rx Instructions: Take 1 tablet by mouth once daily Follow-up/Referrals: Bryan Davey DO [Primary Care Provider] - Time of Disposition: 11:03 Quality NIHSS Nursing Documentation ED NIHSS nursing documentation: reviewed/agree
[2024-09-28 10:37] VITALS: BP 166/67; PULSE 102; RESP 20; TEMP 37.7; O2SAT 100
== END 2024-09-28 11:00 | disposition short-term general hospital (02) ==
PROVIDERS: Emergency Provider Nurse Practitioner Family; PCP Internal Medicine
DX: R53.1 Weakness (principal); R35.0 Frequency of micturition; D46.9 Myelodysplastic syndrome, unspecified; Z79.60 Long term (current) use of unspecified immunomodulators and immunosuppressants; J84.9 Interstitial pulmonary disease, unspecified; E66.9 Obesity, unspecified; Z68.27 Body mass index [BMI] 27.0-27.9, adult; K76.0 Fatty (change of) liver, not elsewhere classified; E03.9 Hypothyroidism, unspecified; K21.9 Gastro-esophageal reflux disease without esophagitis; I10 Essential (primary) hypertension; M81.0 Age-related osteoporosis without current pathological fracture; D53.9 Nutritional anemia, unspecified
CPT/HCPCS: 87086; 99213; G0463

== ENCOUNTER 2024-09-28 11:15 | Emergency (ER) | payer MEDICARE, SELFPAY ==
[2024-09-28] VITALS (27 sets, daily range): BP systolic 95–148; BP diastolic 51–99; PULSE 90–113; RESP 15–25; TEMP 36.8–39.3; O2SAT 90–100
--- NOTE | ~2024-09-28 | XR_ITS ---
EXAMINATION: XR chest 2V DATE: 09/28/2024 12:10 INDICATION: Weakness TECHNIQUE: PA and lateral views of the chest were obtained. COMPARISON: Chest radiograph dated 09/29/2023 FINDINGS: Indeterminate 1.5 cm nodular opacity projecting over the medial left lower lung zone. No other airspa ce opacities, pulmonary edema, pleural effusion or pneumothorax. The cardiomediastinal silhouette is normal. Right subclavian central venous port catheter with distal tip at the caudal superior vena cav a. Chronic T6, T9 and T12 compression fractures. Atherosclerotic aorta. IMPRESSION: 1. Indeterminate 1.5 cm nodular opacity projecting over the medial left lower lung zone which could b e due to granulomatous disease, malignancy or costochondral calcification. Recommend further evaluati on with chest CT. Reviewed, dictated and finalized at location A. IMPRESSION: 1. Indeterminate 1.5 cm nodular opacity projecting over the medial left lower l shanika zone which could be due to granulomatous disease, malignancy or costochondr al calcification. Recommend further evaluation with chest CT.
--- NOTE | ~2024-09-28 | CT_ITS ---
EXAMINATION: CT diagnostic chest wo con DATE: 09/28/2024 13:24 INDICATION: abnormal chest x-ray TECHNIQUE: Computed tomography (CT) of the chest was performed without intravenous contrast. Addition al 3D reconstructions utilizing coronal maximum intensity projection (MIP) were performed. Automated exposure control and iterative reconstruction technique were employed. The dose-length product was 16 2.63 mGy-cm. COMPARISON: Chest radiograph dated 09/28/2024 FINDINGS: Calcified nodule in the right lower lobe consistent with old granulomatous disease. No suspicious non calcified pulmonary nodules. The opacity identified on prior chest radiograph is likely related to pr ominent costochondral calcifications. There is mild atelectasis/scarring at the bilateral lung bases. No pneumonia, pulmonary edema, pleural effusion or pneumothorax. Heart size is normal. Atherosclerot ic coronary artery calcifications. Minimal pericardial effusion. Small sliding-type hiatal hernia. Th oracic aorta is normal in caliber. No pathologically enlarged thoracic lymphadenopathy. Right subclav milagro central venous port catheter with distal tip at the superior cavoatrial junction. Hepatic calcifi cation consistent with old granulomatous disease. 3.4 x 2.5 cm left adrenal mass without significant interval change dating back to CT dated 06/12/2017 at which time it demonstrated characteristic low-at tenuation consistent with an adenoma. Consider chronic compression and burst fractures at T6, T9 and T12. IMPRESSION: 1. Mild bibasilar atelectasis. No acute cardiopulmonary disease or suspicious pulmonary nodules. Nodu lar opacification on prior radiographs likely secondary to costochondral calcification. 2. Reviewed, dictated and finalized at location A. IMPRESSION: 1. Mild bibasilar atelectasis. No acute cardiopulmonary disease or suspicious p ulmonary nodules. Nodular opacification on prior radiographs likely secondary t o costochondral calcification. 2.
[2024-09-28] MEDS: SODIUM CHLORIDE 0.9% IV 1,000 ML 999 ML IV CONT ×2 (12:37)
[2024-09-28 12:54] LABS: Hemoglobin 10.4 g/dL (12.0-15.0); Mean Corpuscular HGB Conc 33.5 g/dl (32-36); Mean Corpuscular Hemoglobin 31.8 pg (26-34); Mean Corpuscular Volume 94.8 fl (80-100); Mean Platelet Volume 9.9 fl (7.4-10.4); Red Blood Count 3.27 M/mm3 (4.2-5.4); Red Cell Distribution Width 14.8 % (11.5-14.5)
[2024-09-28 12:59] LABS: Platelet Count Result 4 k/mm3 (150-375); White Blood Count 0.3 K/mm3 (4.5-10.0)
--- NOTE | 2024-09-28 13:05 | ED_ITS ---
HPI - General Adult General Chief complaint: Recheck/Abnormal Lab/Rx Stated complaint: Weakness, Multiple Blood Transfusion Time Seen by Provider: 09/28/24 11:55 History of Present Illness HPI narrative: Patient is an 84-year-old female who presents ER with concerns for anemia. She has been feeling more weak over last 2-3 days. She received a blood transfusion on 09/23/2024. She has had 5 blood transfusions for anemia this month. She received chemotherapy 3 weeks ago for her myelodysplastic syndrome. She gets her care at [facility] with Dr. Bee. Patient found to be febrile here but had not documenting home. She has had some urinary urgency but no dysuria. No runny nose or sore throat or productive cough. No chest pain or chest pressure. No falls. No dark black stools. Related Data Home Medications ?Medication ?Instructions ?Recorded ?Confirmed ?Last Taken ?Type lansoprazole 15 mg capsule,delayed 15 mg PO DAILY 04/11/22 09/04/24 08/12/23 History release (Prevacid 24Hr) loratadine 10 mg tablet (Claritin) 10 mg PO DAILY 04/11/22 09/04/24 08/12/23 History cyanocobalamin (vitamin B-12) 1,000 mcg PO DAILY 09/29/22 09/04/24 08/12/23 History 1,000 mcg capsule spironolactone 25 mg tablet 25 mg PO DAILY 12/26/22 09/04/24 08/12/23 History calcium 500 mg-vitamin D3 100 2 tablet PO DAILY 05/31/23 09/04/24 08/12/23 History unit-vitamin K 40 mcg chewable tablet acyclovir 400 mg tablet 400 mg PO TID 01/03/24 09/04/24 Unknown History black cohosh 540 mg capsule 20 mg PO DAILY 08/29/24 09/04/24 Unknown History Allergies Allergy/AdvReac Type Severity Reaction Status Date / Time cephalexin AdvReac Mild YEAST Verified 09/28/24 10:33 INFECTION cefdinir AdvReac Unknown Unknown Verified 09/28/24 10:33 clarithromycin AdvReac Unknown Unknown Verified 09/28/24 10:33 clindamycin AdvReac Unknown Other Verified 09/28/24 10:33 codeine AdvReac Unknown Nervousness Verified 09/28/24 10:33 dexamethasone AdvReac Unknown Unknown Verified 09/28/24 10:33 doxycycline AdvReac Unknown Unknown Verified 09/28/24 10:33 morphine AdvReac Unknown Headache Verified 09/28/24 10:33 tobramycin AdvReac Unknown Unknown Verified 09/28/24 10:33 Review of Systems 2 Review of Systems: All systems reviewed & are unremarkable except as noted in HPI and below Constitutional: Constitutional: Reports no additional constitutional complaints ENT: Reports system reviewed and no additional complaints, except as documented Cardiovascular: Cardiovascular: Reports no additional cardiovascular complaints Respiratory: Respiratory: Reports no additional respiratory complaints Gastrointestinal: Gastrointestinal: Reports no additional gastrointestinal complaints Genitourinary: Genitourinary: Reports no additional female genitourinary complaints [facility] Past Medical History Medical History Port-A-Cath in place Acute on chronic anemia Rectal bleeding Macrocytic anemia Rhinitis ILD (interstitial lung disease) Vulvar inflammation Obesity DVT prophylaxis Elevated LFTs Hiatal hernia Adrenal adenoma benign Hepatic steatosis and liver cyst Hypothyroidism Pneumonia due to COVID-19 virus COVID-19 virus infection Acute respiratory failure with hypoxia Acid reflux Hypertension Irritable bowel Migraines Osteoporosis Surgical History Surgical History History of colonoscopy with polypectomy most recent December 2018 with edematous polyps History of reconstructive repair of rectocele (~1995) History of bilateral cataract extraction History of medial meniscus repair of right knee (~2014) S/P laparoscopic-assisted sigmoidectomy (~08/2018) due to chronic diverticulitis History of carpal tunnel surgery of right wrist (~2015) History of hemorrhoidectomy (~2011) History of vaginal hysterectomy (~1995) without oophorectomy History of ankle surgery (~2000) ORIF right ankle Family History Family History Sibling Hypertension Hyperlipidemia Thyroid disease it sounds as if the patient sister likely had Graves disease with a thyroidectomy and then became ill because her thyroid hormone was not replaced. Acute myocardial infarction Brother early-onset Artificial cardiac pacemaker brother Mother Hypertension Thyroid disease It sounds as if her mother likely had Graves disease Father Emphysema lung Grandparent Lung cancer Other Carcinoma of colon Family history of malignant neoplasm of breast Family history of pancreatic cancer Social History Social History Social History: The patient lives with her of 54 years. They raised a son and a daughter. Their son as 3 daughters and the daughter has a son and a daughter. She is a lifelong nonsmoker. She did have a lot of secondhand smoke exposure as a child. She rarely drinks alcohol and only in small amounts. Primary care provider: Bryan Davey DO Smoking status: Never smoker Second hand tobacco smoke exposure: Yes (10-15 years ago) Alcohol intake: never Alcohol use details: Only rare alcohol use in small amounts. 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 Gender identity (if verbalized by the patient): Female Spiritual care concerns: No Exam 2 Narrative: GENERAL: Well-appearing, well-nourished, and in no acute distress. HEAD: Normocephalic, atraumatic. EYES: PERRL and EOMI. Mildly pale conjunctiva. ENT: Mucous membranes moist. NECK: Supple. CHEST: Clear to auscultation. No respiratory distress. HEART: Regular rate and rhythm. Normal peripheral pulses. ABDOMEN: Soft, nontender, nondistended. EXTREMITIES: Normal range of motion. No edema. SKIN: Warm, dry, no rash. NEURO: Alert and oriented x3. PSYCH: Normal mood and affect. Course Course Emergency Course: Patient resting comfortably. Informed of lab and imaging results. Discussed need for transfusion of platelets as well as IV antibiotics. Patient with absolute neutrophil count of 12. Dr. Swenson with oncology [facility] is been consulted and accepts the patient. No additional recommendations. Patient is on Zosyn 4.5 g q.6 hours. Blood in urine cultured. Dr. Bran with the hospitalist service at [facility] has accepted the patient. Patient has received her platelet transfusion. Vital Signs Vital signs: Vital Signs Temperature 102.8 F H 09/28/24 11:49 Pulse Rate 100 09/28/24 11:49 Respiratory Rate 16 09/28/24 11:49 Blood Pressure 128/64 09/28/24 11:49 Pulse Oximetry 100 09/28/24 11:49 Oxygen Delivery Room Air 09/28/24 11:49 Temperature 100.5 F H 09/28/24 16:21 Pulse Rate 102 H 09/28/24 16:21 Respiratory Rate 18 09/28/24 16:21 Blood Pressure 102/76 09/28/24 16:21 Pulse Oximetry 94 09/28/24 16:21 Oxygen Delivery Room Air 09/28/24 11:49 Medical Decision Making Vital Signs Vital Signs: Vital Signs Temperature 102.8 F H 09/28/24 11:49 Pulse Rate 100 09/28/24 11:49 Respiratory Rate 16 09/28/24 11:49 Blood Pressure 128/64 09/28/24 11:49 Pulse Oximetry 100 09/28/24 11:49 Oxygen Delivery Room Air 09/28/24 11:49 Temperature 100.5 F H 09/28/24 16:21 Pulse Rate 102 H 09/28/24 16:21 Respiratory Rate 18 09/28/24 16:21 Blood Pressure 102/76 09/28/24 16:21 Pulse Oximetry 94 09/28/24 16:21 Oxygen Delivery Room Air 09/28/24 11:49 Lab Data 09/28/24 12:42 09/28/24 12:42 Labs: Lab Results 09/28/24 09/28/24 09/28/24 Range/Units 12:42 13:12 15:11 WBC 0.3 L* (4.5-10.0) K/mm3 RBC 3.27 L (4.2-5.4) M/mm3 Hgb 10.4 L (12.0-15.0) g/dL Hct 31.0 L (37.0-47.0) % MCV 94.8 (80-100) fl MCH 31.8 (26-34) pg MCHC 33.5 (32-36) g/dl RDW 14.8 H (11.5-14.5) % Plt Count 4 L* D (150-375) k/mm3 MPV 9.9 (7.4-10.4) fl Immature Gran % (Auto) Not Reportable Neut % (Auto) Not Reportable Lymph % (Auto) Not Reportable [place] % (Auto) Not Reportable Eos % (Auto) Not Reportable Baso % (Auto) Not Reportable Lymph # (Auto) Not Reportable [place] # (Auto) Not Reportable Eos # (Auto) Not Reportable Baso # (Auto) Not Reportable Abs Immat Gran (auto) Not Reportable Absolute Neuts (auto) Not Reportable Absolute Nucleated RBC Not Reportable Total Counted 68 Neutrophils % (Manual) 4 L (46-73) % Band Neutrophils % Not Reportable Lymphocytes % (Manual) 62 H (18-44) % Monocytes % (Manual) 2 L (3-9) % Nucleated RBC % Not Reportable Abs Lymphs (Manual) 0.18 L (1.1-4.5) K/mm3 Abs Monocytes (Manual) 0.00 L (0.1-0.90) K/mm3 Smudge Cells Few Platelet Estimate Decreased (Adequate) Anisocytosis 1+ Schistocytes None seen PT 16.6 H (11.1-14.7) Seconds INR 1.4 APTT 34.1 (22.3-36.8) Seconds Sodium 132 L (137-145) mmol/L Potassium 3.7 (3.4-5.0) mmol/L Chloride 99 (98-107) mmol/L Carbon Dioxide 24 (22-30) mmol/L Anion Gap 9 (4-12) mmol/L BUN 19 H (7-17) mg/dL Creatinine 0.68 L (0.7-1.0) mg/dL Estim Creat Clear Calc 45 ml/min Estimated GFR > 60 (59 - ) Glucose 123 H (65-110) mg/dL Lactic Acid 0.7 (0.7-2.0) mmol/L Calcium 7.9 L (8.4-10.2) mg/dL Total Bilirubin 1.3 (0.2-1.3) mg/dL AST 20 (14-36) U/L ALT 34 (6-35) U/L Alkaline Phosphatase 36 L (38-126) U/L C-Reactive Protein 14.0 H (<1.0) mg/dL Total Protein 7.0 (6.3-8.2) g/dL Albumin 3.9 (3.5-5.1) g/dL Urine Color [place] H (Yellow) Urine Appearance Clear (Clear) Urine pH 5.5 (5.0-9.0) Ur Specific [place] 1.018 (1.001-1.035) Urine Protein 2+ H (Negative) mg/dL Urine Glucose (UA) Negative (Negative) mg/dL Urine Ketones Negative (Negative) mg/dL Ur Blood (Man) 2+ H (Negative) Urine Nitrate Positive H (Negative) Urine Bilirubin 1+ H (Negative) Urine Urobilinogen 1.0 (<2.0) mg/dL Add Ur Microanalysis Reviewed Leukocyte Esterase Rfl 1+ H (Negative) RAJAN/UL Urine RBC 11-20 H (0-2) /hpf Urine WBC 0-5 (0-3) /hpf Ur Squamous Epith Cells None seen (Few) /hpf Urine Bacteria None seen /hpf Urine Casts 0-2 Influenza A (RT-PCR) Negative (Negative) Influenza B (RT-PCR) Negative (Negative) RSV (RT-PCR) Negative (Negative) SARS-CoV-2 RNA (RT-PCR) Negative (Negative) Blood Type O Positive Antibody Screen Negative Imaging Data Radiologist's impression: ITS Impressions Chest X-Ray 09/28/24 12:27 IMPRESSION: 1. Indeterminate 1.5 cm nodular opacity projecting over the medial left lower lung zone which could be due to granulomatous disease, malignancy or costochondral calcification. Recommend further evaluation with chest CT. Chest CT 09/28/24 13:31 IMPRESSION: 1. Mild bibasilar atelectasis. No acute cardiopulmonary disease or suspicious pulmonary nodules. Nodular opacification on prior radiographs likely secondary to costochondral calcification. 2. Critical Care Time Critical Care Time Critical Care Time: Yes Total Critical Care Time: 45 Discharge Plan Discharge Clinical Impression: Fever and neutropenia, Severe neutropenia, Thrombocytopenia Patient Disposition: Acute Care Hospital Condition: Guarded Prognosis Patient Language: Malaysian Prescriptions: No Action lansoprazole [Prevacid 24Hr] 15 mg capsule,delayed release(DR/EC) 15 mg PO DAILY loratadine [Claritin] 10 mg tablet 10 mg PO DAILY cyanocobalamin (vitamin B-12) 1,000 mcg capsule 1,000 mcg PO DAILY spironolactone 25 mg tablet 25 mg PO DAILY acyclovir 400 mg tablet 400 mg PO TID black cohosh 540 mg capsule 20 mg PO DAILY clonazepam 0.5 mg tablet 0.25 mg PO BID Qty: 90 0RF calcium-vitamin D3-vitamin K 500-100-40 mg-unit-mcg Tablet,Chewable 2 tablet PO DAILY levothyroxine 75 mcg tablet See Rx Instructions .ROUTE .COMPLEX Qty: 90 0RF Dose Instruction: Take 1 tablet by mouth once daily Rx Instructions: Take 1 tablet by mouth once daily Follow-up/Referrals: Bryan Davey, [Primary Care Provider] -
[2024-09-28 13:09] LABS: Lactic Acid Reflex 0.7 mmol/L (0.7-2.0)
[2024-09-28 13:12] LABS: INR 1.4; Prothrombin Time 16.6 Seconds (11.1-14.7)
[2024-09-28 13:13] LABS: Partial Thromboplastin Time 34.1 Seconds (22.3-36.8)
[2024-09-28 13:14] LABS: Alanine Aminotransferase 34 U/L (6-35); Albumin Level 3.9 g/dL (3.5-5.1); Alkaline Phosphatase 36 U/L (38-126); Anion Gap 9 mmol/L (4-12); Aspartate Amino Transferase 20 U/L (14-36); Bilirubin,Total 1.3 mg/dL (0.2-1.3); Blood Urea Nitrogen 19 mg/dL (7-17); Calcium 7.9 mg/dL (8.4-10.2); Carbon Dioxide 24 mmol/L (22-30); Chloride 99 mmol/L (98-107); Estimated CRCL calculation 45 ml/min; Estimated Glomerular Filt Rate > 60; Glucose 123 mg/dL (65-110); Potassium 3.7 mmol/L (3.4-5.0); Sodium 132 mmol/L (137-145)
[2024-09-28 13:35] LABS: Neutrophils Percent Manual 4 % (46-73); Total Cells Counted 68
[2024-09-28 13:36] LABS: Anisocytosis 1+; Lymphocytes Absolute Manual 0.18 K/mm3 (1.1-4.5); Lymphocytes Percent Manual 62 % (18-44); Monocytes Percent Manual 2 % (3-9); Platelet Estimate Decreased (Adequate); Schistocytes None Seen; Smudge Cells FEW
[2024-09-28] MEDS: PIPERACILLIN/TAZ 4.5G/NS 100ML 4.5 GM/100 ML BAG IVPB (14:09)
--- NOTE | 2024-09-28 14:11 | PC.NURSE ---
Pt attempted to give urine sample with a hat in the toilet. Pt missed the hat and urine was not obtained. Informed pt after IVF therapy has completed we will try again or can use straight catheterization to obtain urine sample, pt verbalizes understanding.
--- NOTE | 2024-09-28 15:00 | PC.NURSE ---
Ana triage called for updated information. States she is accepted to [facility] by Dr Bran and we are awaiting a bed number and they will call us back when available.
--- NOTE | 2024-09-28 15:18 | PC.NURSE ---
[facility] called back with bed number at [facility] #412-1. Report #[phone].
[2024-09-28] MEDS: TUBING, BLOOD SET 1 EACH XX ×2 (15:23→16:13)
[2024-09-28] MEDS: SODIUM CHLORIDE 0.9% IV 250 ML 30 ML IV CONT (15:23)
[2024-09-28 15:34] LABS: Bacteria Urine None Seen /hpf; Need Manual Microscopic Reviewed; Non Pathogenic Casts 0-2; Squamous Epithelial Cell Urine None Seen /hpf (Few); WBC Urine 0-5 /hpf (0-3)
[2024-09-28 15:35] LABS: Add Urine Microscopic? YES; Appearance Urine Clear (Clear); Bilirubin Urine 1+ (Negative); Blood Urine 2+ (Negative); Color Urine Orange (Yellow); Glucose Urine UA Negative (Negative); Ketones Urine Negative (Negative); Leukocyte Esterase Ur 1+ LEU/UL (Negative); Nitrate Urine Positive (Negative); Protein Urine 2+ mg/dL (Negative); Specific Grav Ur 1.018 (1.001-1.035); pH Urine 5.5 (5.0-9.0)
--- NOTE | 2024-09-28 16:25 | PC.NURSE ---
Pt last temperature 100.5. made aware. Dr. Stefan OWEN to administer 650mg tylenol PO stat.
[2024-09-28] MEDS: ACETAMINOPHEN 325 MG TABLET 650 MG PO (16:28)
[2024-09-28 16:44] LABS: Influenza A QL RT-PCR Negative (Negative); Influenza B QL RT-PCR Negative (Negative); RSV RNA, RT-PCR. Negative (Negative); SARS-CoV-2 RNA PCR Negative (Negative)
--- NOTE | 2024-09-28 17:01 | PC.NURSE ---
Report given to Donna at [facility].
== END 2024-09-28 17:58 | disposition short-term general hospital (02) ==
PROVIDERS: Emergency Provider Emergency Medicine; PCP Internal Medicine
DX: R50.9 Fever, unspecified (principal); D70.9 Neutropenia, unspecified; D69.6 Thrombocytopenia, unspecified; D46.9 Myelodysplastic syndrome, unspecified; J84.9 Interstitial pulmonary disease, unspecified; I10 Essential (primary) hypertension; E03.9 Hypothyroidism, unspecified; K58.9 Irritable bowel syndrome, unspecified; M81.0 Age-related osteoporosis without current pathological fracture; Z87.01 Personal history of pneumonia (recurrent); Z86.16 Personal history of COVID-19; Z86.0100 Personal history of colon polyps, unspecified; Z98.42 Cataract extraction status, left eye; Z98.41 Cataract extraction status, right eye; Z90.49 Acquired absence of other specified parts of digestive tract; Z90.710 Acquired absence of both cervix and uterus; Z77.22 Contact with and (suspected) exposure to environmental tobacco smoke (acute) (chronic); Z79.60 Long term (current) use of unspecified immunomodulators and immunosuppressants; Z79.899 Other long term (current) drug therapy
CPT/HCPCS: 36415; 36430; 71046; 71250; 80053; 81001; 83605; 85025; 85610; 85730; 86140; 86850; 86900; 86901; 87040; 87086; 87637; 96365; 96366; 99285; A9270; J2543; J7030; J7050; P9034

== ENCOUNTER 2024-10-28 10:00 | Outpatient (CLI) | payer MEDICARE, SELFPAY ==
--- OUTSIDE RECORDS SUMMARY | 2024-10-28 10:31 | XMS_ITS | Clinical Summary ---
Author Organization [facility] Address [address] [address] Care Team Providers Care Bartender Manager Name Role Phone Unavailable Primary Care [...] Encounters Date Type Department Care Team Description 10/16/2024 External Device Data ST[facility] ABSTRACTION Provider, Abstract 10/16/2024 External Device Data [facility] ABSTRACTION Provider, Abstract 10/16/2024 External Device Data ST[facility] ABSTRACTION Provider, Abstract 09/18/2024 External Device Data STL ABSTRACTION Provider, Abstract 09/17/2024 External Device Data STL ABSTRACTION Provider, Abstract 08/27/2024 External Device Data STL ABSTRACTION Provider, [...] 1-dose 75+ series) 02/09/2016 INFLUENZA VACCINE (#1) 2024 3, 01/07/2022, 01/15/2021, Additional history exists OSTEOPOROSIS SCREENING 08/30/2028 4, 08/09/2022, 08/07/2020 DTAP/TDAP/TD VACCINES (2 - T d or Tdap) 09/08/2029 09/09/2019 PNEUMOCOCCAL VACCINE 50+ YEARS Completed 0 10/26/2020, 05/18/2016, 04/03/2016, Additional history exists ZOSTER VACCINE Completed 03/29/2022, 10/02, 04/03/2016 Insurance MEDICARE PART A AND B [facility]
--- OUTSIDE RECORDS SUMMARY | 2024-10-28 10:31 | XMS_ITS | Encounter Summary ---
Author Organization [facility] Address [address] [place] [address] Phone Care Team Providers Care Knitted Goods Shaper Name Role Phone Bryan Davey DO Primary Care Provider [phone] Prateek King MD Unavailable Sherman Alvarez DO Unavailable [phone] Encounter Details Date Type Department Care Team (Late st Contact Info) Description 10/28/[address] [facility] Oncology [address] [place] [address] Medical [address] [place] [id number] Chalino Chapa MD [address] [place], [place] [id number] MDS (myelodysplastic syndrome) (HCC) (Primary Dx); Chronic anemia Social History Tobacco Use Types Packs/Day Years Used Date Smoking Tobacco: Never Smokeless Tobacco: Never Alcohol Use Standard Drinks/Week Comments Yes 0 (1 standard drink = 0.6 oz pur e alcohol) [facility] Utilities Answer Date Recorded In the past 12 months has e electric, gas, oil, or water company threatened to shut off services in your home? No 09/30/2024 Social Connection and Isolat ion Panel [NHANES] Answer Date Recorded In a typical week, how many times do you talk on the phone with family, friends, or neighbors? More than three times a week 09/30/2024 How often do you get togethe r with friends or relatives? More than three times a week 09/30/2024 How often do you attend chur ch or zoroastrian services? Never 09/30/2024 Do you belong to any clubs o r organizations such as baptism groups, unions, fraternal or athletic groups, or school groups? No 09/30/2024 How often do you attend meet ings of the clubs or organizations you belong to? Never 09/30/2024 Are you , , di vorced, , never , or living with a partner? 09/30/2024 AUDIT-C Answer Date Recorded Q1: How often do you have a drink containing alcohol? Never 08/08/2024 Q2: How many drinks containi ng alcohol do you have on a typical day when you are drinking? Patient does not drink Q3: How often do you have si x or more drinks on one occasion? Never 08/08/2024 Overall Financial Resource Strain (CARDIA) Answe r Date Recorded How hard is it for you to pa y for the very basics like food, housing, medical care, and heating? Not hard at all 09/30/2024 Hunger Vital Sign Answer Date Recorded Within the past 12 months, y ou worried that your food would run out before you got the money to buy more. Never true 10/01/19 25 Within the past 12 months, t he food you bought just didn't last and you didn't have money to get more. Never true 09/30/2024 PRAPARE - Transportation Answer Date Re corded In the past 12 months, has l ack of transportation kept you from medical appointments or from getting medications? No 09/03 In the past 12 months, has l ack of transportation kept you from meetings, work, or from getting things needed for daily living? No 09/30/2024 Housing Stability Vital Sign Answer Roberto e Recorded In the last 12 months, was t here a time when you were not able to pay the mortgage or rent on time? No 10/02/2024 In the past 12 months, how m any times have you moved where you were living? 0 10/02/2024 At any time in the past 12 m [facility], were you homeless or living in a alf (including now)? No 10/02/2024 Personal Safety Answer Date Recorded Have you ever been in or are you currently in a harmful physical or emotional relationship or is someone making you feel afraid or unsafe? 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 Gender Identity Not on file Sexual Orientation Not on file documented as of this encounter Plan of Treatment Scheduled Orders Name Type Priority Associated Diagnoses Orde r Schedule CBC with auto differential Lab Routine MDS (myelodysplastic syndrome) (HCC) Chronic anemia Expected: 10/28/2024, Expires: 10/28/2025 Comprehensive metabolic panel Lab Routine MDS (myelodysplastic syndrome) (HCC) Chronic anemia Expected: 10/28/2024, Expires: 10/28/2025 documented as of this encounter Visit Diagnoses Diagnosis MDS (myelodysplastic syndrome) (HCC)- Primary Myelodysplastic syndrome, unspecified Chronic anemia Unspecified anemia documented in this encounter Care Teams Knitted Goods Shaper Relationship Specialty Start Date End Date Bryan Davey DO PCP - General Internal Medicine 11/14/23 Prateek King MD [address] [place] [address] Consulting Physician Urology 10/07/24 Sherman Alvarez DO [address] [place] [id number] Medical Oncologist/Senior Qa Tester Hematology and Oncology 10/07/24 documented as of this encounter
--- OUTSIDE RECORDS SUMMARY | 2024-10-28 10:31 | XMS_ITS | Referral Summary ---
Author Organization [facility] Medical Office Building B Address [address] [place] [address] Care Team Providers Care Help Desk Support Specialist Name Role Phone Bryan Davey DO Primary Care Provider [phone] Prateek King MD Unavailable Sherman Alvarez DO Unavailable [phone] Encounters Date Type Department Care Team Description 10/28/2024 Orders Only [facility] [address] [place] [address] Office Bld[address] [place] [address] Chalino Chapa MD MDS (myelodysplastic syndrome) (HCC) (Primary Dx); Chronic anemia 10/21/2024 8:15 AM CDT Lab [address] [place] [address] MDS (myelodysplastic syndrome) (HCC) 10/21/2024 9:00 AM CDT Infusion [address] [place] [address] MDS (myelodysplastic syndrome) (HCC) 10/21/2024 8:45 AM CDT Office Visit [facility] [address] [place] [address] Office B[address] [place] [address] Milla Armenta, FOREST TECHNOLOGY PROFESSOR Myelodysplastic syndrome (HCC) (Primary Dx); MDS (myelodysplastic syndrome) (HCC) 10/17/2024 12:30 PM CDT Infusion [address] [place] [address] 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); MDS (myelodysplastic syndrome) (HCC); Encounter for care related to Port-a-Cath 10/17/2024 Orders Only [facility] [address] [place] [address] Medical Office Bld[address] [place] [address] Chalino Chapa MD MDS (myelodysplastic syndrome) (HCC) (Primary Dx); Anemia in neoplastic disease 10/17/2024 11:15 AM CDT Lab [address] [place] [address] MDS (myelodysplastic syndrome) (HCC) 10/14/[address] [place] [address] Yadi Gtz RN 10/14/2024 8:00 AM CDT Lab [address] [place] [address] MDS (myelodysplastic syndrome) (HCC) 10/14/2024 8:30 AM CDT Infusion [address] [place] [address] MDS (myelodysplastic syndrome) (HCC) 10/14/2024 8:00 AM CDT Office Visit [facility] [address] [place] [address] Medical Office Bld[address] [place] [address] Chalino Chapa MD MDS (myelodysplastic syndrome) (HCC) (Primary Dx); Interstitial lung disease (HCC) 10/11/2024 Telephone [facility] [address] [place] [address] Medical Office Bld[address] [place] [address] Radha Brink RN 10/11/2024 Telephone [facility] [address] [place] [address] Office Bld[address] [place] [address] Clau Cabral CLT 10/11/2024 11:45 AM CDT Lab [address] [place] [address] MDS (myelodysplastic syndrome) (HCC) 09/28/2024 7:21 PM CDT - 10/07/2024 3:45 PM CDT Hospital Encounter [place] [address] Med Surg [facility] [place] [address] Philip Bran MD Singh, Anjanya Devendra, MD Pham, Kevin, DO Mahasneh, Omar Ali Mohammed, MD Medavaram, Atul, MD Febrile neutropenia (Primary Dx); Myelodysplastic syndrome with low blasts associated with mutation in SF3B1 gene (HCC); Anemia, unspecified type; MDS (myelodysplastic syndrome) (HCC) [D46.9]; Pancytopenia due to chemotherapy [D61.810]; Abnormal CT of the chest [R93.89] Discharge Disposition: Discharge to home or self care 09/23/[address] [place] [address] Lourdes Hudson RN 09/23/2024 9:00 AM CDT Infusion [address] [place] [address] 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); MDS (myelodysplastic syndrome) (HCC); Chronic anemia 09/23/2024 Orders Only [facility] [address] [place] [address] Office [address] [place] [address] Chalino Chapa MD 09/23/2024 Orders Only [facility] [address] [place] [address] Office [address] [place] [address] Chalino Chapa MD MDS (myelodysplastic syndrome) (HCC) (Primary Dx); Chronic anemia 09/23/2024 8:15 AM CDT Lab [address] [place] [address] Anemia, unspecified type (Primary Dx); MDS (myelodysplastic syndrome) (HCC) 09/16/[address] [place] [address] Chalino Chapa MD 09/16/2024 8:45 AM CDT Lab [address] [place] [address] MDS (myelodysplastic syndrome) (HCC) 09/16/2024 9:30 AM CDT Infusion [address] [place] [address] 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); MDS (myelodysplastic syndrome) (HCC); Encounter for care related to Port-a-Cath 09/16/2024 9:15 AM CDT Office Visit [facility] [address] [place] [address] Medical Office [facility] [address] [place] [address] Milla Armenta, CLAUDIA MDS (myelodysplastic syndrome) (HCC) (Primary Dx) 09/13/2024 Telephone [facility] [address] [place] [address] Medical Office [facility] [address] [place] [address] Clau Cabral CLT 09/13/2024 10:00 AM CDT Infusion [address] [place] [address] MDS (myelodysplastic syndrome) (HCC) (Primary Dx); Encounter for care related to Port-a-Cath 09/12/2024 11:00 AM CDT Infusion [address] [place] [address] MDS (myelodysplastic syndrome) (HCC) (Primary Dx); Encounter for care related to Port-a-Cath 09/11/2024 Orders Only [facility] [address] [place] [address] Medical Office [facility] [address] [place] [address] Milla Armenta NP 09/11/2024 10:00 AM CDT Infusion [address] [place] [address] MDS (myelodysplastic syndrome) (HCC) (Primary Dx); Encounter for care related to Port-a-Cath 09/10/2024 11:30 AM CDT Infusion [address] [place] [address] MDS (myelodysplastic syndrome) (HCC) (Primary Dx); Encounter for care related to Port-a-Cath 09/09/2024 9:30 AM CDT Infusion [address] [place] [address] MDS (myelodysplastic syndrome) (HCC) (Primary Dx); Encounter for care related to Port-a-Cath 09/09/2024 8:45 AM CDT Lab [address] [place] [address] MDS (myelodysplastic syndrome) (HCC) 09/09/2024 9:15 AM CDT Office Visit [facility] [address] [place] [address] Medical Office [facility] [address] [place] [address] Milla Armenta, FOREST TECHNOLOGY PROFESSOR MDS (myelodysplastic syndrome) (HCC) (Primary Dx) 09/02/2024 10:30 AM CDT Infusion [address] [place] [address] MDS (myelodysplastic syndrome) (HCC) (Primary Dx); Anemia in neoplastic disease 09/02/2024 9:30 AM CDT Lab [address] [place] [address] MDS (myelodysplastic syndrome) (HCC) 09/02/2024 10:00 AM CDT Office Visit [facility] [address] [place] [address] Office [facility] B [facility] [address] [place] [address] Chalino Chapa MD MDS (myelodysplastic syndrome) (HCC) (Primary Dx) 08/30/2024 Telephone [facility] [address] [place] [address] Office [facility] B [facility] [address] [place] [address] Clau Cabral, CLT 08/08/2024 10:30 AM CDT Clinical Support [address] [place] [address] Age-related osteoporosis without current pathological fracture (Primary Dx); MDS (myelodysplastic syndrome) (HCC); Encounter for care related to Port-a-Cath 08/08/2024 9:45 AM CDT Lab [address] [place] [address] MDS (myelodysplastic syndrome) (HCC) 08/08/2024 10:15 AM CDT Office Visit [facility] [address] [place] [address] Office [facility] B [facility] [address] [place] [address] Milla Armenta, FOREST TECHNOLOGY PROFESSOR MDS (myelodysplastic syndrome) (HCC) (Primary Dx) from [...] tablet daily . 4 9 Active calcium carbonate-jeanna min D3 600 mg (1,500 mg)-800 unit tablet,chewabl e Take 1 tablet by mouth daily . Active cyanocobalamin (Vitamin B-12) 500 mcg tablet Take 2 tablets (1,000 mcg total) by mouth daily 2 Active Prolia 60 mg/mL syringe Inject 1 mL (60 mg total) under the skin 2 injection/yea r 2 Active PANTOTHENIC ACID, VIT B5, ORAL [...] daily Active docusate sodium (Colace) 100 mg capsuleIndicat ions:constipat ion Take 1 capsule (100 mg total) by mouth 2 (two) times a day for 14 days 28 capsule 4 Active prochlorperazi ne (Compazine) 10 mg tabletIndicati ons:MDS (myelodysplast ic syndrome) (HCC) Take 1 tablet (10 mg total) by mouth every 6 (six) hours as needed for nausea or vomiting 120 tablet 3 4 Active lidocaine-pril ocaine (EMLA) creamIndicatio ns:Administrat ion of Local Anesthesia Apply topically as needed for pain Apply to site approx 30-60 minutes prior to use do not rub in, cover with light dressing 30 g 1 4 Active levothyroxine (SYNTHROID) 75 mcg tablet Take 1 tablet (75 mcg total) by mouth ginseng farmer before breakfast 30 tablet 4 Active oxyBUTYnin XL (DITROPAN-XL) 5 mg 24 hr tablet 4 Active acyclovir (ZOVIRAX) 400 mg tabletIndicati ons:MDS (myelodysplast ic syndrome) (HCC) TAKE 1 TABLET BY MOUTH THREE TIMES DAILY FOR SHINGLES PREVENTION. 90 tablet 5 Active levothyroxine (SYNTHROID) 75 mcg tablet Take 1 tablet (75 mcg total) by mouth ginseng farmer before breakfast Active docusate sodium (COLACE) 250 mg capsule Take 4 capsules (1,000 mg total) by mouth nightly Active melatonin tablet Take 2 tablets (6 mg total) by mouth nightly Active NON FORMULARY, FOR INPATIENT USE, Chew nightly Zzzquil Pure ZZZs Melatonin + Chamomile & Lavender Patient states she takes 1.5 to 2 gummies nightly Active ibuprofen 200 mg tab/cap Take 2 tablet/capsul e (400 mg total) by mouth daily as needed for pain 10/08/19 25 Discontinue d(Stop Taking at Discharge) levoFLOXacin (LEVAQUIN) 750 mg tablet Take 1 tablet (750 mg total) by mouth daily for 5 days 5 tablet 5 10/15/19 25 Active Problems Problem Noted Date Diagnosed Date Abnormal CT of the chest 10/01/2024 Febrile neutropenia 09/28/2024 Pancytopenia due to chemotherapy 12/19/2023 Moderate malnutrition [...] (06/06/2018): Added automatically from request for surgery [id number] Immunizations Immunization Administration Dates Next Due Influenza, [...] drink = 0.6 oz pur e alcohol) [facility] Utilities Answer Date Recorded In the past 12 months has th e [employer], gas, oil, or water [employer] threatened to shut off services in your [...] week 09/30/2024 How often do you attend up health system or zoroastrian services? Never 09/30/2024 Do you belong to any clubs o r organizations such as restorationism groups, unions, fraternal or athletic groups, or [...] any time in the past 12 m [facility], were you homeless or living in a longterm (including now)? No 10/02/2024 Personal Safety Answer Date Recorded Have you ever been in or are you currently in a harmful physical or emotional relationship or is someone making you feel afraid or unsafe? 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 Gender Identity Not on file Sexual Orientation Not on file Last Filed Vital Signs Vital Sign Reading Time Taken Comments Blood Pressure 107/50 10/21/2024 8:34 AM CDT Pulse 98 10/21/2024 8:34 AM CDT Temperature 36.2 C (97.1 F) 10/21/2024 8:34 AM CDT Respiratory Rate 20 10/21/2024 8:34 AM CDT Oxygen Saturation 98% 10/21/2024 8:34 AM CDT Inhaled Oxygen Concentration - - Weight 63 kg (139 lb) 10/21/2024 8:34 AM CDT Height 152.4 cm (5') 10/14/2024 8:03 AM CDT Body Mass Index 27.15 10/14/2024 8:03 AM CDT Plan of Treatment Not on file Medical Devices Implanted Type Area Tandem Mill Roller Device Identifier Shelf Expiration Date Model / Serial / Lot Apparity Powerport Mri Airguard 8fr 1 Lumen Attachable Catheter Latex Free [id number] - [id number] Implanted:Qty: 1 on 11/20/2023 by Shade Red MD at [facility] Right: Chest [facility] 09/30/2024 [id number] / / [id number] Procedures Procedure Name Priority Date/Time Associated Diagnosis Comments DIFFERENTIAL AUTO Routine 10/21/2024 8:2 5 AM CDT CBC WITH AUTO DIFFERENTIAL Routine 10/21/2024 8:25 AM CDT EGFR Routine 10/21/2024 8:25 AM CDT MDS (myelodysplastic syndrome) (HCC) COMPREHENSIVE METABOLIC PANEL Routine 10/21/2024 8:25 AM CDT MDS (myelodysplastic syndrome) (HCC) TRANSFUSE RED BLOOD CELLS Routine 10/17/2024 1:10 PM CDT MDS (myelodysplastic syndrome) (HCC) Anemia in neoplastic disease PREPARE RBC Routine 10/17/2024 12:24 PM CDT PREPARE RBC Routine 10/17/2024 12:19 PM CDT MDS (myelodysplastic syndrome) (HCC) Anemia in neoplastic disease DIFFERENTIAL AUTO Routine 10/17/2024 11: 10 AM CDT CBC WITH AUTO DIFFERENTIAL Routine 10/17/2024 11:10 AM CDT CROSSMATCH Routine 10/17/2024 11:10 AM CDT MDS (myelodysplastic syndrome) (HCC) EGFR Routine 10/17/2024 11:10 AM CDT MDS (myelodysplastic syndrome) (HCC) ANTIBODY SCREEN Routine 10/17/2024 11:10 AM CDT MDS (myelodysplastic syndrome) (HCC) ABO/RH Routine 10/17/2024 11:10 AM CDT MDS (myelodysplastic syndrome) (HCC) TYPE AND SCREEN Routine 10/17/2024 11:10 AM CDT MDS (myelodysplastic syndrome) (HCC) COMPREHENSIVE METABOLIC PANEL Routine 10/17/2024 11:10 AM CDT MDS (myelodysplastic syndrome) (HCC) DIFFERENTIAL AUTO STAT 10/14/2024 9:1 7 AM CDT CBC WITH AUTO DIFFERENTIAL STAT 10/14/2024 9:17 AM CDT EGFR Routine 10/14/2024 8:00 AM CDT MDS (myelodysplastic syndrome) (HCC) COMPREHENSIVE METABOLIC PANEL Routine 10/14/2024 8:00 AM CDT MDS (myelodysplastic syndrome) (HCC) EGFR STAT 10/11/2024 11:50 AM CDT MDS (myelodysplastic syndrome) (HCC) COMPREHENSIVE METABOLIC PANEL STAT 10/11/2024 11:50 AM CDT MDS (myelodysplastic syndrome) (HCC) DIFFERENTIAL AUTO Routine 10/11/2024 11: 50 AM CDT CBC WITH AUTO DIFFERENTIAL Routine 10/11/2024 11:50 AM CDT HOME O2 EVAL (DESATURATION SCREEN) Routine 10/07/2024 10:34 AM CDT EGFR Routine 10/07/2024 5:29 AM CDT DIFFERENTIAL AUTO Routine 10/07/2024 5:2 9 AM CDT CBC WITH AUTO DIFFERENTIAL Routine 10/07/2024 5:29 AM CDT BASIC METABOLIC PANEL Routine 10/07/2024 5:29 AM CDT MAGNESIUM Routine 10/06/2024 5:10 AM CDT PHOSPHORUS Routine 10/06/2024 5:10 AM CDT EGFR Routine 10/06/2024 5:10 AM CDT DIFFERENTIAL AUTO Routine 10/06/2024 5:1 0 AM CDT CBC WITH AUTO DIFFERENTIAL Routine 10/06/2024 5:10 AM CDT BASIC METABOLIC PANEL Routine 10/06/2024 5:10 AM CDT XR KUB IP Routine 10/05/2024 7:42 PM CDT XR CHEST PA LATERAL 2 VIEWS IP Routine 10/05/2024 9:15 AM CDT EGFR Routine 10/05/2024 6:06 AM CDT DIFFERENTIAL AUTO Routine 10/05/2024 6:0 6 AM CDT CBC WITH AUTO DIFFERENTIAL Routine 10/05/2024 6:06 AM CDT BASIC METABOLIC PANEL Routine 10/05/2024 6:06 AM CDT BLOOD SMEAR REVIEW Routine 10/04/2024 5: 48 AM CDT EGFR Routine 10/04/2024 5:48 AM CDT DIFFERENTIAL AUTO Routine 10/04/2024 5:4 8 AM CDT CBC WITH AUTO DIFFERENTIAL Routine 10/04/2024 5:48 AM CDT BASIC METABOLIC PANEL Routine 10/04/2024 5:48 AM CDT POCT GLUCOSE DEVICE Routine 10/03/2024 8 :17 PM CDT XR CHEST 1 VIEW IP Routine 10/03/2024 9:49 AM CDT EGFR Routine 10/03/2024 6:19 AM CDT DIFFERENTIAL AUTO Routine 10/03/2024 6:1 9 AM CDT CRP (ACUTE PHASE) Routine 10/03/2024 6:1 9 AM CDT CBC WITH AUTO DIFFERENTIAL Routine 10/03/2024 6:19 AM CDT BASIC METABOLIC PANEL Routine 10/03/2024 6:19 AM CDT MAGNESIUM Routine 10/02/2024 4:26 AM CDT PHOSPHORUS Routine 10/02/2024 4:26 AM CDT BLOOD SMEAR REVIEW Routine 10/02/2024 4: 26 AM CDT EGFR Routine 10/02/2024 4:26 AM CDT DIFFERENTIAL AUTO Routine 10/02/2024 4:2 6 AM CDT CBC WITH AUTO DIFFERENTIAL Routine 10/02/2024 4:26 AM CDT BASIC METABOLIC PANEL Routine 10/02/2024 4:26 AM CDT COCCIDIOIDES ANTIBODY SCREEN W/REFLEX Routine 10/01/2024 8:07 PM CDT BLASTOMYCES ANTIBODY, EIA, S Routine 10/01/2024 8:07 PM CDT ASPERGILLUS GALACTOMANNAN ANTIGEN Routine 10/01/2024 8:07 PM CDT CRYPTOCOCCAL ANTIGEN, SERUM Routine 10/01/2024 8:07 PM CDT LEGIONELLA ANTIGEN, URINE Routine 10/01/2024 6:10 PM CDT HISTOPLASMA ANTIGEN Routine 10/01/2024 6 :10 PM CDT RESPIRATORY PATHOGEN PANEL Routine 10/01/2024 5:35 PM CDT TRANSFUSE RED BLOOD CELLS Timed 10/01/2024 3:[address] CHEST ABDOMEN PELVIS W CONTRAST IP Routine 10/01/2024 3:12 PM CDT PREPARE RBC Timed 10/01/2024 2:40 PM CDT URINALYSIS AND REFLEX TO MICROSCOPIC AND CULTURE Routine 10/01/2024 2:02 PM CDT PRO B-TYPE NATRIURETIC PEPTIDE STAT 10/01/2024 12:37 PM CDT LACTATE DEHYDROGENASE Routine 10/01/2024 5:22 AM CDT EGFR Routine 10/01/2024 5:22 AM CDT DIFFERENTIAL AUTO Routine 10/01/2024 5:2 2 AM CDT CBC WITH AUTO DIFFERENTIAL Routine 10/01/2024 5:22 AM CDT BASIC METABOLIC PANEL Routine 10/01/2024 5:22 AM CDT TRANSTHORACIC ECHO (TTE) COMPLETE W DOPPLER/CF W CONTRAST Routine 09/30/2024 2:00 PM CDT EGFR Routine 09/30/2024 6:44 AM CDT BLOOD SMEAR REVIEW Routine 09/30/2024 6: 44 AM CDT IMMATURE PLATELET FRACTION Routine 09/30/2024 6:44 AM CDT DIFFERENTIAL AUTO Routine 09/30/2024 6:4 4 AM CDT CBC WITH AUTO DIFFERENTIAL Routine 09/30/2024 6:44 AM CDT BASIC METABOLIC PANEL Routine 09/30/2024 6:44 AM CDT TROPONIN T HIGH-SENSITIVITY 6-HOUR Timed 09/29/2024 2:57 PM CDT TROPONIN T HIGH-SENSITIVITY 4-HR Timed 09/29/2024 12:38 PM CDT TROPONIN T HIGH-SENSITIVITY 2-HOUR Timed 09/29/2024 10:44 AM CDT BLOOD SMEAR REVIEW Routine 09/29/2024 8: 11 AM CDT EGFR Timed 09/29/2024 8:11 AM CDT BASIC METABOLIC PANEL Timed 09/29/2024 8:11 AM CDT MAGNESIUM Timed 09/29/2024 8:11 AM CDT TROPONIN T HIGH-SENSITIVITY SERIES (BASELINE, 2HR, 4HR, 6HR) Timed 09/29/2024 8:11 AM CDT DIFFERENTIAL AUTO Routine 09/29/2024 8: 11 AM CDT TROPONIN T HIGH-SENSITIVITY 6-HOUR Timed 09/29/2024 8:11 AM CDT CBC WITH AUTO DIFFERENTIAL Routine 09/29/2024 8:11 AM CDT HEPATIC FUNCTION PANEL Routine 09/29/2024 5:24 AM CDT EGFR Routine 09/29/2024 5:24 AM CDT TROPONIN T HIGH-SENSITIVITY 4-HR Timed 09/29/2024 5:24 AM CDT BASIC METABOLIC PANEL Routine 09/29/2024 5:24 AM CDT TROPONIN T HIGH-SENSITIVITY 2-HOUR Timed 09/29/2024 3:05 AM CDT TRANSFUSE RED BLOOD CELLS Timed 09/29/2024 2:39 AM CDT EGFR Routine 09/29/2024 1:09 AM CDT PRO B-TYPE NATRIURETIC PEPTIDE Routine 09/29/2024 1:09 AM CDT MAGNESIUM Routine 09/29/2024 1:09 AM CDT BASIC METABOLIC PANEL Routine 09/29/2024 1:09 AM CDT TROPONIN T HIGH-SENSITIVITY SERIES (BASELINE, 2HR, 4HR, 6HR) Routine 09/29/2024 1:09 AM CDT DIFFERENTIAL AUTO STAT 09/29/2024 1:0 9 AM CDT B ABO / RH CONFIRMATION TESTING STAT 09/29/2024 1:09 AM CDT CBC WITH AUTO DIFFERENTIAL STAT 09/29/2024 1:09 AM CDT BLOOD CULTURE STAT 09/29/2024 1:09 AM CDT XR CHEST 1 VIEW Critical/Life-T hreatening 09/29/2024 12:41 AM CDT ECG 12-LEAD STAT 09/29/2024 12:29 AM CDT CROSSMATCH Timed 09/29/2024 12:06 AM CDT ANTIBODY SCREEN Timed 09/29/2024 12:06 AM CDT ABO/RH Timed 09/29/2024 12:06 AM CDT TYPE AND SCREEN Timed 09/29/2024 12:06 AM CDT PREPARE RBC Timed 09/28/2024 11:37 PM CDT URINE CULTURE Routine 09/28/2024 11:20 PM CDT DIFFERENTIAL AUTO Routine 09/28/2024 10: 39 PM CDT CBC WITH AUTO DIFFERENTIAL Routine 09/28/2024 10:39 PM CDT TRANSFUSE RED BLOOD CELLS Timed 09/23/2024 12:26 PM CDT MDS (myelodysplastic syndrome) (HCC) Anemia in neoplastic disease TRANSFUSE RED BLOOD CELLS Timed 09/23/2024 10:25 AM CDT MDS (myelodysplastic syndrome) (HCC) Anemia in neoplastic disease PREPARE RBC Routine 09/23/2024 9:50 AM CDT PREPARE RBC Routine 09/23/2024 9:49 AM CDT PREPARE RBC Routine 09/23/2024 9:30 AM CDT MDS (myelodysplastic syndrome) (HCC) Anemia in neoplastic disease CROSSMATCH Routine 09/23/2024 8:10 AM CDT MDS (myelodysplastic syndrome) (HCC) Anemia, unspecified type MANUAL DIFFERENTIAL Routine 09/23/2024 8 :10 AM CDT IMMATURE PLATELET FRACTION Routine 09/23/2024 8:10 AM CDT ANTIBODY SCREEN Routine 09/23/2024 8:10 AM CDT MDS (myelodysplastic syndrome) (HCC) Anemia, unspecified type ABO/RH Routine 09/23/2024 8:10 AM CDT MDS (myelodysplastic syndrome) (HCC) Anemia, unspecified type CBC WITH AUTO DIFFERENTIAL Routine 09/23/2024 8:10 AM CDT TYPE AND SCREEN Routine 09/23/2024 8:10 AM CDT MDS (myelodysplastic syndrome) (HCC) Anemia, unspecified type TRANSFUSE RED BLOOD CELLS Timed 09/16/2024 12:30 PM CDT MDS (myelodysplastic syndrome) (HCC) Anemia in neoplastic disease TRANSFUSE RED BLOOD CELLS Timed 09/16/2024 10:40 AM CDT MDS (myelodysplastic syndrome) (HCC) Anemia in neoplastic disease PREPARE RBC Routine 09/16/2024 10:33 AM CDT PREPARE RBC Routine 09/16/2024 10:32 AM CDT PREPARE RBC Routine 09/16/2024 10:25 AM CDT MDS (myelodysplastic syndrome) (HCC) Anemia in neoplastic disease CROSSMATCH Routine 09/16/2024 10:12 AM CDT MANUAL DIFFERENTIAL Routine 09/16/2024 9 :05 AM CDT EGFR Routine 09/16/2024 9:05 AM CDT MDS (myelodysplastic syndrome) (HCC) CBC WITH AUTO DIFFERENTIAL Routine 09/16/2024 9:05 AM CDT ANTIBODY SCREEN Routine 09/16/2024 9:05 AM CDT MDS (myelodysplastic syndrome) (HCC) ABO/RH Routine 09/16/2024 9:05 AM CDT MDS (myelodysplastic syndrome) (HCC) TYPE AND SCREEN Routine 09/16/2024 9:05 AM CDT MDS (myelodysplastic syndrome) (HCC) COMPREHENSIVE METABOLIC PANEL Routine 09/16/2024 9:05 AM CDT MDS (myelodysplastic syndrome) (HCC) EGFR Routine 09/09/2024 9:00 AM CDT MDS (myelodysplastic syndrome) (HCC) DIFFERENTIAL AUTO Routine 09/09/2024 9:0 0 AM CDT CBC WITH AUTO DIFFERENTIAL Routine 09/09/2024 9:00 AM CDT COMPREHENSIVE METABOLIC PANEL Routine 09/09/2024 9:00 AM CDT MDS (myelodysplastic syndrome) (HCC) PREPARE RBC Routine 09/02/2024 6:07 PM CDT MDS (myelodysplastic syndrome) (HCC) Anemia in neoplastic disease TRANSFUSE RED BLOOD CELLS Timed 09/02/2024 11:20 AM CDT MDS (myelodysplastic syndrome) (HCC) Anemia in neoplastic disease PREPARE RBC Routine 09/02/2024 11:07 AM CDT DIFFERENTIAL AUTO Routine 09/02/2024 9:4 5 AM CDT CROSSMATCH STAT 09/02/2024 9:45 AM CDT MDS (myelodysplastic syndrome) (HCC) CBC WITH AUTO DIFFERENTIAL Routine 09/02/2024 9:45 AM CDT ANTIBODY SCREEN STAT 09/02/2024 9:45 AM CDT MDS (myelodysplastic syndrome) (HCC) ABO/RH STAT 09/02/2024 9:45 AM CDT MDS (myelodysplastic syndrome) (HCC) EGFR Routine 09/02/2024 9:45 AM CDT MDS (myelodysplastic syndrome) (HCC) TYPE AND SCREEN STAT 09/02/2024 9:45 AM CDT MDS (myelodysplastic syndrome) (HCC) COMPREHENSIVE METABOLIC PANEL Routine 09/02/2024 9:45 AM CDT MDS (myelodysplastic syndrome) (HCC) EGFR Routine 08/08/2024 10:10 AM CDT MDS (myelodysplastic syndrome) (HCC) DIFFERENTIAL AUTO Routine 08/08/2024 10: 10 AM CDT CBC WITH AUTO DIFFERENTIAL Routine 08/08/2024 10:10 AM CDT COMPREHENSIVE METABOLIC PANEL Routine 08/08/2024 10:10 AM CDT MDS (myelodysplastic syndrome) (HCC) from Last 3 Months Results * eGFR (10/21/2024 8:25 AM CDT) eGFR 89 >=60 mL/min/1. 73 m2 Comment: Interpretive Data [...] was last reviewed 2021. Testing performed by: [place], [address] Blood 10/21/2024 8:25 AM CDT 10/21/2024 8:36 AM CDT us Chalino Chapa MD LAB BLOOD ORDERABLES Aylin l Result [facility] ([place]) 1 [facility] Department [place] [address] * (ABNORMAL) Differential, auto (10/21/2024 8:25 AM CDT) Neutrophil abs 0.69(L) 1.50 - 6.50 K/cumm Comment:Testing performed by : [facility], [place], [address] Imm gran abs 0.01 0.00 - 0.10 K/cumm [facility] ([place]) Comment:Testing performed by : [place], [address] Lymphocyte abs 0.68(L) 0.80 - 3.30 K/cumm [facility] ([place]) Comment:Testing performed by : [facility], [facility], [place], [address] Monocyte abs 0.16(L) 0.20 - 0.80 K/cumm [facility] ([place]) Comment:Testing performed by : [facility], [facility], [place], [address] Eosinophil abs 0.00 0.00 - 0.50 K/cumm [facility] ([place]) Comment:Testing performed by : [facility], [facility], [place], [address] Basophil abs 0.00 0.00 - 0.10 K/cumm [facility] ([place]) Comment:Testing performed by : [facility] [facility], [place], [address] Neutrophil pct 44.8 % [facility] ([place]) Comment: Interpretive Data Percent cell count reference ranges are not reported, since discordance with absolute values may lead to misinterpretation of CBC data. Current Interpretive Data was last revised on 2017. Testing performed by: [facility], [facility], [place], [address] Imm gran pct 0.6 % [facility] ([place]) Comment: Interpretive Data Percent cell count reference ranges are not reported, since discordance with absolute values may lead to misinterpretation of CBC data. Current Interpretive Data was last revised on 2017. Testing performed by: [facility], [place], [address] Lymphocyte pct 44.2 % [facility] ([place]) Comment: Interpretive Data Percent cell count reference ranges are not reported, since discordance with absolute values may lead to misinterpretation of CBC data. Current Interpretive Data was last revised on 2017. Testing performed by: [facility], [place], [address] Monocyte pct 10.4 % [facility] ([place]) Comment: Interpretive Data Percent cell count reference ranges are not reported, since discordance with absolute values may lead to misinterpretation of CBC data. Current Interpretive Data was last revised on 2017. Testing performed by: [place], [address] Eosinophil pct 0.0 % [facility] ([place]) Comment: Interpretive Data Percent cell count reference ranges are not reported, since discordance with absolute values may lead to misinterpretation of CBC data. Current Interpretive Data was last revised on 2017. Testing performed by: [place], [address] Basophil pct 0.0 % [facility] ([place]) Comment: Interpretive Data Percent cell count reference ranges are not reported, since discordance with absolute values may lead to misinterpretation of CBC data. Current Interpretive Data was last revised on 2017. Testing performed by: [facility], [place], [address] Blood 10/21/2024 8:25 AM CDT 10/21/2024 9:43 AM CDT us Chalino Chapa MD LAB BLOOD ORDERABLES Aylin freedman Result [facility] ([place]) 1 [facility] Department [place] [address] * (ABNORMAL) CBC with auto differential (10/21/2024 8:25 AM CDT) WBC 1.54(L) 3.80 - 9.90 K/cumm Comment:Testing performed by : [place], [address] Hgb 8.5(L) 11.9 - 15.5 g/dL [facility] ([place]) Comment:Testing performed by : [place], [address] Hct 26.5(L) 35.6 - 45.5 % [facility] ([place]) Comment:Testing performed by : [place], [address] Plt 153 150 - 400 K/cumm [facility] ([place]) Comment:Testing performed by : [place], [address] MPV 11.8 9.1 - 12.3 fL [facility] ([place]) Comment:Testing performed by : [facility], [place], [address] RBC 2.67(L) 3.90 - 5.20 M/cumm [facility] ([place]) Comment:Testing performed by : [facility], [facility], [place], [address] MCV 99.3(H) 81.3 - 96.4 fL [facility] ([place]) Comment:Testing performed by : [facility], [facility], [place], MCH 31.8 27.1 - 33.3 pg [facility] ([place]) Comment:Testing performed by : [facility], [place], MCHC 32.1(L) 32.3 - 35.7 g/dL [facility] ([place]) Comment:Testing performed by : [facility], [place], [place], RDW CV 16.9(H) 11.1 - 14.9 % [facility] ([place]) Comment:Testing performed by : [facility], [place], [address] RDW SD 52.5(H) 35.7 - 48.1 fL [facility] ([place]) Comment:Testing performed by : [facility], [facility], [place], [address] NRBC abs 0.00 0.00 - 0.01 K/cumm [facility] ([place]) Comment:Testing performed by : [place], [address] Morphologic Screen Results confirmed by manual morphology review. [facility] ([place]) Comment:Testing performed by : [facility], [place], [address] Blood 10/21/2024 8:25 AM CDT 10/21/2024 9:43 AM CDT us Chalino Chapa MD LAB BLOOD ORDERABLES Aylin tano Result [facility] ([place]) 1 [facility] Department of Laboratories [place] [id number] * (ABNORMAL) Comprehensive metabolic panel (10/21/2024 8:25 AM CDT) Sodium 139 135 - 145 mmol/L [facility] ([place]) Potassium, pl 4.2 3.3 - 4.9 mmol/L [facility] ([place]) Chloride 99 97 - 110 mmol/L [facility] ([place]) CO2 31 22 - 32 mmol/L [facility] ([place]) Anion gap 9 2 - 15 mmol/L [facility] ([place]) BUN 11 6 - 25 mg/dL [facility] ([place]) Creatinine 0.59(L) 0.60 - 1.10 mg/dL [facility] ([place]) Glucose 169 70 - 199 mg/dL [facility] ([place]) [...] interpretive data was last revised 2022. Calcium 10.0 8.5 - 10.3 mg/dL [facility] ([place]) Bilirubin, total 0.6 0.1 - 1.2 mg/dL [facility] ([place]) Protein, pl 7.3 6.5 - 8.5 g/dL [facility] ([place]) Albumin 4.1 3.5 - 5.0 g/dL [facility] ([place]) Alk phos 51 40 - 130 Units/L [facility] ([place]) ALT 90(H) 7 - 45 Units/L [facility] ([place]) AST 39 10 - 45 Units/L [facility] ([place]) Blood 10/21/2024 8:25 AM CDT 10/21/2024 8:36 AM CDT us Chalino Chapa MD LAB BLOOD ORDERABLES Aylin freedman Result [facility] ([place]) 1 [facility] Department [place] [address] * Transfuse RBC (10/17/2024 2:54 PM CDT) Blood us Chalino Chapa MD BLOOD TRANSFUSION ORDERAB LES Final Result * Prepare RBC (10/17/2024 12:24 PM CDT) Unit Number [id number] Product code [id number] [facility] ([place]) Blood Expiration Date [facility] ([place]) Product Blood Type (for scanning) 5100 [facility] ([place]) Product Blood Type OPOS [facility] ([place]) Dispense Status DISPENSED [facility] ([place]) us Chalino Chapa MD BLOOD BANK PRODUCT ORDERA BLES Final Result [facility] ([place]) [address] [place] [address] Department of [employer] [place] [address] * Prepare RBC: 1 Units (10/17/2024 12:19 PM CDT) Units requested 1 Comment:Testing performed by : [place], [address] Units requested Ready [facility] ([place]) Comment:Testing performed by : [place], [address] Blood 10/17/2024 12:1 9 PM CDT 10/17/2024 12:19 PM CDT Narrative [facility] ([place]) - 10/17/2024 12:19 PM CDT Are special requirements needed? (All products are leukoreduced and CMV- safe)->No Chalino Chapa MD BLOOD BANK PRODUCT ORDERA BLES Final Result [facility] ([place]) [address] [place] [address] Department [place] [employer] [address] * eGFR (10/17/2024 11:10 AM CDT) eGFR 89 >=60 mL/min/1. 73 m2 Comment: Interpretive Data [...] was last reviewed 2021. Testing performed by: [place], [address] Blood 10/17/2024 11:1 0 AM CDT 10/17/2024 11:34 AM CDT us Chalino Chapa MD LAB BLOOD ORDERABLES Aylin l Result [facility] ([place]) 1 [facility] Department [place] [address] * (ABNORMAL) Differential, auto (10/17/2024 11:10 AM CDT) Neutrophil abs 0.64(L) 1.50 - 6.50 K/cumm Comment:Testing performed by : [facility], [place], [address] Imm gran abs 0.01 0.00 - 0.10 K/cumm [facility] ([place]) Comment:Testing performed by : [place], [address] Lymphocyte abs 0.84 0.80 - 3.30 K/cumm [facility] ([place]) Comment:Testing performed by : [facility], [place], [address] Monocyte abs 0.20 0.20 - 0.80 K/cumm [facility] ([place]) Comment:Testing performed by : [facility], [facility], [place], [address] Eosinophil abs 0.00 0.00 - 0.50 K/cumm [facility] ([place]) Comment:Testing performed by : [facility], [facility], [place], [address] Basophil abs 0.00 0.00 - 0.10 K/cumm [facility] ([place]) Comment:Testing performed by : [place], [address] Neutrophil pct 37.9 % [facility] ([place]) Comment: Interpretive Data Percent cell count reference ranges are not reported, since discordance with absolute values may lead to misinterpretation of CBC data. Current Interpretive Data was last revised on 2017. Testing performed by: [place], [address] Imm gran pct 0.6 % [facility] ([place]) Comment: Interpretive Data Percent cell count reference ranges are not reported, since discordance with absolute values may lead to misinterpretation of CBC data. Current Interpretive Data was last revised on 2017. Testing performed by: [facility], [place], [address] Lymphocyte pct 49.7 % [facility] ([place]) Comment: Interpretive Data Percent cell count reference ranges are not reported, since discordance with absolute values may lead to misinterpretation of CBC data. Current Interpretive Data was last revised on 2017. Testing performed by: [place], [address] Monocyte pct 11.8 % [facility] ([place]) Comment: Interpretive Data Percent cell count reference ranges are not reported, since discordance with absolute values may lead to misinterpretation of CBC data. Current Interpretive Data was last revised on 2017. Testing performed by: [place], [address] Eosinophil pct 0.0 % [facility] ([place]) Comment: Interpretive Data Percent cell count reference ranges are not reported, since discordance with absolute values may lead to misinterpretation of CBC data. Current Interpretive Data was last revised on 2017. Testing performed by: [place], [address] Basophil pct 0.0 % [facility] ([place]) Comment: Interpretive Data Percent cell count reference ranges are not reported, since discordance with absolute values may lead to misinterpretation of CBC data. Current Interpretive Data was last revised on 2017. Testing performed by: [place], [address] Blood 10/17/2024 11:1 0 AM CDT 10/17/2024 12:21 PM CDT us Chalino Chapa MD LAB BLOOD ORDERABLES Aylin freedman Result [facility] ([place]) 1 [facility] Department [place] [address] * (ABNORMAL) CBC with auto differential (10/17/2024 11:10 AM CDT) WBC 1.69(L) 3.80 - 9.90 K/cumm Comment:Testing performed by : [place], [address] Hgb 7.3(L) 11.9 - 15.5 g/dL [facility] ([place]) Comment:Testing performed by : [place], [address] Hct 22.8(L) 35.6 - 45.5 % [facility] ([place]) Comment:Testing performed by : [place], [address] Plt 144(L) 150 - 400 K/cumm [facility] ([place]) Comment:Testing performed by : [place], [address] MPV 12.0 9.1 - 12.3 fL [facility] ([place]) Comment:Testing performed by : [place], [address] RBC 2.29(L) 3.90 - 5.20 M/cumm [facility] ([place]) Comment:Testing performed by : [facility], [place], [address] MCV 99.6(H) 81.3 - 96.4 fL [facility] ([place]) Comment:Testing performed by : [place], [address] MCH 31.9 27.1 - 33.3 pg [facility] ([place]) Comment:Testing performed by : [facility], [place], [address] MCHC 32.0(L) 32.3 - 35.7 g/dL [facility] ([place]) Comment:Testing performed by : [facility], [place], [address] RDW CV 16.2(H) 11.1 - 14.9 % [facility] ([place]) Comment:Testing performed by : [facility], [place], [address] RDW SD 53.1(H) 35.7 - 48.1 fL [facility] ([place]) Comment:Testing performed by : [facility], [place], [address] NRBC abs 0.00 0.00 - 0.01 K/cumm [facility] ([place]) Comment:Testing performed by : [facility], [place], [address] Morphologic Screen Results confirmed by manual morphology review. [facility] ([place]) Comment:Testing performed by : [facility], [place], [address] Blood 10/17/2024 11:1 0 AM CDT 10/17/2024 12:21 PM CDT us Chalino Chapa MD LAB BLOOD ORDERABLES Edit ed Result - Final [facility] ([place]) [address] [place] [address] Department [place] [address] * ABO/Rh (10/17/2024 11:10 AM CDT) ABO/Rh O Positive Comment:Testing performed by : [facility], [place], [address] Blood 10/17/2024 11:1 0 AM CDT 10/17/2024 11:43 AM CDT Narrative [facility] ([place]) - 10/17/2024 12:17 PM CDT Has the patient had Daratumumab or Isatuximab in the past 6 months?->Unknown Witness: Ynes Jensen IFS Chalino Chapa MD LAB BLOOD BANK TEST ORDER LAITH Final Result Performing Organization Address [facility] Co de Phone Number [facility] ([place]) 1 [facility] [place] [address] * Crossmatch (10/17/2024 11:10 AM CDT) Crossmatch Compatible [facility] ([place]) Unit number for crossmatch [id number] [facility] ([place]) Blood 10/17/2024 11:1 0 AM CDT 10/17/2024 11:43 AM CDT Chalino Chapa MD LAB BLOOD BANK TEST ORDER LAITH Final Result Performing Organization Address [facility] de Phone Number [facility] ([place]) [address] [place] [address] [employer] [address] * Antibody screen (10/17/2024 11:10 AM CDT) Rivera, indirect, Gel Interpretation Negative ABSC Comment:Testing performed by : [facility], [facility], [place], [address] Blood 10/17/2024 11:1 0 AM CDT 10/17/2024 11:43 AM CDT Narrative [facility] ([place]) - 10/17/2024 12:17 PM CDT Has the patient had Daratumumab or Isatuximab in the past 6 months?->Unknown Chalino Chapa MD LAB BLOOD BANK TEST ORDER LAITH Final Result Performing Organization Address [facility] Co de Phone Number [facility] ([place]) 1 [place] [address] * (ABNORMAL) Comprehensive metabolic panel (10/17/2024 11:10 AM CDT) Sodium 139 135 - 145 mmol/L [facility] ([place]) Potassium, pl 4.0 3.3 - 4.9 mmol/L [facility] ([place]) Chloride 100 97 - 110 mmol/L [facility] ([place]) CO2 29 22 - 32 mmol/L [facility] ([place]) Anion gap 10 2 - 15 mmol/L [facility] ([place]) BUN 14 6 - 25 mg/dL [facility] ([place]) Creatinine 0.59(L) 0.60 - 1.10 mg/dL [facility] ([place]) Glucose 153 70 - 199 mg/dL [facility] ([place]) [...] interpretive data was last revised 2022. Calcium 9.7 8.5 - 10.3 mg/dL [facility] ([place]) Bilirubin, total 0.5 0.1 - 1.2 mg/dL [facility] ([place]) Protein, pl 7.4 6.5 - 8.5 g/dL [facility] ([place]) Albumin 3.9 3.5 - 5.0 g/dL [facility] ([place]) Alk phos 47 40 - 130 Units/L [facility] ([place]) ALT 71(H) 7 - 45 Units/L [facility] ([place]) AST 34 10 - 45 Units/L [facility] ([place]) Blood 10/17/2024 11:1 0 AM CDT 10/17/2024 11:34 AM CDT us Chalino Chapa MD LAB BLOOD ORDERABLES Aylin freedman Result [facility] ([place]) 1 [facility] Department [place] [address] * (ABNORMAL) Differential, auto (10/14/2024 9:17 AM CDT) Neutrophil abs 0.51(L) 1.50 - 6.50 K/cumm Comment:Testing performed by : [facility], [facility], [place], [address] Imm gran abs 0.02 0.00 - 0.10 K/cumm [facility] ([place]) Comment:Testing performed by : [place], [address] Lymphocyte abs 0.81 0.80 - 3.30 K/cumm [facility] ([place]) Comment:Testing performed by : [place], [address] Monocyte abs 0.13(L) 0.20 - 0.80 K/cumm [facility] ([place]) Comment:Testing performed by : [facility], [place], [address] Eosinophil abs 0.00 0.00 - 0.50 K/cumm [facility] ([place]) Comment:Testing performed by : [facility], [place], [address] Basophil abs 0.01 0.00 - 0.10 K/cumm [facility] ([place]) Comment:Testing performed by : [place], [address] Neutrophil pct 34.4 % [facility] ([place]) Comment: Interpretive Data Percent cell count reference ranges are not reported, since discordance with absolute values may lead to misinterpretation of CBC data. Current Interpretive Data was last revised on 2017. Testing performed by: [place], [address] Imm gran pct 1.4 % [facility] ([place]) Comment: Interpretive Data Percent cell count reference ranges are not reported, since discordance with absolute values may lead to misinterpretation of CBC data. Current Interpretive Data was last revised on 2017. Testing performed by: [place], [address] Lymphocyte pct 54.7 % [facility] ([place]) Comment: Interpretive Data Percent cell count reference ranges are not reported, since discordance with absolute values may lead to misinterpretation of CBC data. Current Interpretive Data was last revised on 2017. Testing performed by: [facility], [facility], [place], [address] Monocyte pct 8.8 % [facility] ([place]) Comment: Interpretive Data Percent cell count reference ranges are not reported, since discordance with absolute values may lead to misinterpretation of CBC data. Current Interpretive Data was last revised on 2017. Testing performed by: [facility], [place], [address] Eosinophil pct 0.0 % [facility] ([place]) Comment: Interpretive Data Percent cell count reference ranges are not reported, since discordance with absolute values may lead to misinterpretation of CBC data. Current Interpretive Data was last revised on 2017. Testing performed by: [facility], [place], [address] Basophil pct 0.7 % [facility] ([place]) Comment: Interpretive Data Percent cell count reference ranges are not reported, since discordance with absolute values may lead to misinterpretation of CBC data. Current Interpretive Data was last revised on 2017. Testing performed by: [facility], [place], [address] Blood 10/14/2024 9:17 AM CDT 10/14/2024 9:17 AM CDT us Chalino Chapa MD LAB BLOOD ORDERABLES Aylin l Result [facility] ([place]) 1 [facility] Department [place] [address] * (ABNORMAL) CBC with auto differential (10/14/2024 9:17 AM CDT) WBC 1.48(L) 3.80 - 9.90 K/cumm Comment:Testing performed by : [place], [address] Hgb 7.8(L) 11.9 - 15.5 g/dL [facility] ([place]) Comment:Testing performed by : [facility], [place], [address] Hct 24.6(L) 35.6 - 45.5 % [facility] ([place]) Comment:Testing performed by : [facility], [place], [place], Plt 142(L) 150 - 400 K/cumm [facility] ([place]) Comment:Testing performed by : [facility], [place], MPV 12.2 9.1 - 12.3 fL [facility] ([place]) Comment:Testing performed by : [place], RBC 2.54(L) 3.90 - 5.20 M/cumm [facility] ([place]) Comment:Testing performed by : [place], MCV 96.9(H) 81.3 - 96.4 fL [facility] ([place]) Comment:Testing performed by : [place], MCH 30.7 27.1 - 33.3 pg [facility] ([place]) Comment:Testing performed by : [place], MCHC 31.7(L) 32.3 - 35.7 g/dL [facility] ([place]) Comment:Testing performed by : [place], RDW CV 15.6(H) 11.1 - 14.9 % [facility] ([place]) Comment:Testing performed by : [place], R[place] SD 53.3(H) 35.7 - 48.1 fL [facility] ([place]) Comment:Testing performed by : [place], NRBC abs 0.00 0.00 - 0.01 K/cumm [facility] ([place]) Comment:Testing performed by : [place], [address] Blood 10/14/2024 9:17 AM CDT 10/14/2024 9:17 AM CDT us Chalino Chapa MD LAB BLOOD ORDERABLES Aylin freedman Result [facility] ([place]) 1 [facility] Department [place] [address] * eGFR (10/14/2024 8:00 AM CDT) eGFR 90 >=60 mL/min/1. 73 [...] was last reviewed 2021. Testing performed by: [place], [address] Blood 10/14/2024 8:00 AM CDT 10/14/2024 1:44 PM CDT us Chalino Chapa MD LAB BLOOD ORDERABLES Aylin l Result [facility] ([place]) 1 [facility] Department [place] [address] * (ABNORMAL) Comprehensive metabolic panel (10/14/2024 8:00 AM CDT) Sodium 138 135 - 145 mmol/L Comment:Testing performed by : [place], [address] Potassium, pl 4.4 3.3 - 4.9 mmol/L [facility] ([place]) Comment:Testing performed by : [place], [address] Chloride 99 97 - 110 mmol/L [facility] ([place]) Comment:Testing performed by : [facility], [facility], [place], [address] CO2 27 22 - 32 mmol/L [facility] ([place]) Comment:Testing performed by : [facility], [facility], [place], [address] Anion gap 12 2 - 15 mmol/L [facility] ([place]) Comment:Testing performed by : [facility], [place], [address] BUN 10 6 - 25 mg/dL [facility] ([place]) Comment:Testing performed by : [facility], [place], [address] Creatinine 0.58(L) 0.60 - 1.10 mg/dL [facility] ([place]) Comment:Testing performed by : [facility], [place], [address] Glucose 135 70 - 199 mg/dL [facility] ([place]) [...] last revised 2022. Testing performed by: [facility], [place], [address] Calcium 9.2 8.5 - 10.3 mg/dL [facility] ([place]) Comment:Testing performed by : [facility], [place], [address] Bilirubin, total 0.6 0.1 - 1.2 mg/dL [facility] ([place]) Comment:Testing performed by : [facility], [place], [address] Protein, pl 7.3 6.5 - 8.5 g/dL [facility] ([place]) Comment:Testing performed by : [facility], [place], [address] Albumin 3.9 3.5 - 5.0 g/dL [facility] ([place]) Comment:Testing performed by : [facility], [facility], [place], [address] Alk phos 47 40 - 130 Units/L [facility] ([place]) Comment:Testing performed by : [facility], [facility], [place], [address] ALT 46(H) 7 - 45 Units/L [facility] ([place]) Comment:Testing performed by : [facility], [facility], [place], [address] AST 29 10 - 45 Units/L [facility] ([place] Comment:Testing performed by : [facility], [facility], [place], [address] Blood 10/14/2024 8:00 AM CDT 10/14/2024 1:44 PM CDT us Chalino Chapa MD LAB BLOOD ORDERABLES Aylin l Result [facility] ([place]) 1 [facility] Department [place] [address] * eGFR (10/11/2024 11:50 AM CDT) eGFR >90 >=60 mL/min/1. 73 [...] was last reviewed 2021. Testing performed by: [facility], [facility], [place], [address] Blood 10/11/2024 11:5 0 AM CDT 10/11/2024 2:14 PM CDT us Milla Armenta [employer] LAB BLOOD ORDERABLES Final Result [facility] ([place]) 1 [facility] Department [place] [address] * (ABNORMAL) Differential, auto (10/11/2024 11:50 AM CDT) Neutrophil abs 0.43(C) 1.50 - 6.50 K/cumm Comment: This result has been called to Evie Brink RN by [id number] on 10/11/2024 13:11:00, and has been read back. Testing performed by: [place], [address] Imm gran abs 0.01 0.00 - 0.10 K/cumm [facility] ([place]) Comment:Testing performed by : [facility], [place], [address] Lymphocyte abs 0.73(L) 0.80 - 3.30 K/cumm [facility] ([place]) Comment:Testing performed by : [facility], [place], [address] Monocyte abs 0.07(L) 0.20 - 0.80 K/cumm [facility] ([place]) Comment:Testing performed by : [place], [address] Eosinophil abs 0.00 0.00 - 0.50 K/cumm [facility] ([place]) Comment:Testing performed by : [place], [address] Basophil abs 0.00 0.00 - 0.10 K/cumm [facility] ([place]) Comment:Testing performed by : [place], [address] Neutrophil pct 34.7 % [facility] ([place]) Comment: Interpretive Data Percent cell count reference ranges are not reported, since discordance with absolute values may lead to misinterpretation of CBC data. Current Interpretive Data was last revised on 2017. Testing performed by: [facility], [place], [address] Imm gran pct 0.8 % [facility] ([place]) Comment: Interpretive Data Percent cell count reference ranges are not reported, since discordance with absolute values may lead to misinterpretation of CBC data. Current Interpretive Data was last revised on 2017. Testing performed by: [place], [address] Lymphocyte pct 58.9 % [facility] ([place]) Comment: Interpretive Data Percent cell count reference ranges are not reported, since discordance with absolute values may lead to misinterpretation of CBC data. Current Interpretive Data was last revised on 2017. Testing performed by: [place], [address] Monocyte pct 5.6 % [facility] ([place]) Comment: Interpretive Data Percent cell count reference ranges are not reported, since discordance with absolute values may lead to misinterpretation of CBC data. Current Interpretive Data was last revised on 2017. Testing performed by: [facility], [place], [address] Eosinophil pct 0.0 % [facility] ([place]) Comment: Interpretive Data Percent cell count reference ranges are not reported, since discordance with absolute values may lead to misinterpretation of CBC data. Current Interpretive Data was last revised on 2017. Testing performed by: [place], [address] Basophil pct 0.0 % [facility] ([place]) Comment: Interpretive Data Percent cell count reference ranges are not reported, since discordance with absolute values may lead to misinterpretation of CBC data. Current Interpretive Data was last revised on 2017. Testing performed by: [place], [address] Blood 10/11/2024 11:5 0 AM CDT 10/11/2024 12:18 PM CDT us Chalino Chapa MD LAB BLOOD ORDERABLES Aylin l Result [facility] ([place]) 1 [facility] Department [place] [address] * (ABNORMAL) CBC with auto differential (10/11/2024 11:50 AM CDT) WBC 1.24(L) 3.80 - 9.90 K/cumm Comment:Testing performed by : [place], [address] Hgb 7.7(L) 11.9 - 15.5 g/dL [facility] ([place]) Comment:Testing performed by : [place], [address] Hct 23.9(L) 35.6 - 45.5 % [facility] ([place]) Comment:Testing performed by : [place], [address] Plt 157 150 - 400 K/cumm [facility] ([place]) Comment:Testing performed by : [place], [address] MPV 11.6 9.1 - 12.3 fL [facility] ([place]) Comment:Testing performed by : [place], [address] RBC 2.43(L) 3.90 - 5.20 M/cumm [facility] ([place]) Comment:Testing performed by : [place], [address] MCV 98.4(H) 81.3 - 96.4 fL [facility] ([place]) Comment:Testing performed by : [place], [address] MCH 31.7 27.1 - 33.3 pg [facility] ([place]) Comment:Testing performed by : [place], [address] MCHC 32.2(L) 32.3 - 35.7 g/dL [facility] ([place]) Comment:Testing performed by : [place], [address] RDW CV 15.1(H) 11.1 - 14.9 % [facility] ([place]) Comment:Testing performed by : [place], [address] RDW SD 53.4(H) 35.7 - 48.1 fL [facility] ([place]) Comment:Testing performed by : [facility], [facility], [place], [address] NRBC abs 0.00 0.00 - 0.01 K/cumm [facility] ([place]) Comment:Testing performed by : [facility], [place], [address] Morphologic Screen Results confirmed by manual morphology review. [facility] ([place]) Comment:Testing performed by : [facility], [place], [address] Blood 10/11/2024 11:5 0 AM CDT 10/11/2024 12:18 PM CDT us Chalino Chapa MD LAB BLOOD ORDERABLES Aylin freedman Result [facility] ([place]) 1 [facility] Department [place] [address] * (ABNORMAL) Comprehensive metabolic panel (10/11/2024 11:50 AM CDT) Sodium 140 135 - 145 mmol/L Comment:Testing performed by : [facility], [place], [address] Potassium, pl 3.9 3.3 - 4.9 mmol/L [facility] ([place]) Comment:Testing performed by : [facility], [place], [address] Chloride 100 97 - 110 mmol/L [facility] ([place]) Comment:Testing performed by : [facility], [place], [address] CO2 27 22 - 32 mmol/L [facility] ([place]) Comment:Testing performed by : [facility], [place], [address] Anion gap 13 2 - 15 mmol/L [facility] ([place]) Comment:Testing performed by : [facility], [place], [address] BUN 10 6 - 25 mg/dL [facility] ([place]) Comment:Testing performed by : [facility], [place], [address] Creatinine 0.54(L) 0.60 - 1.10 mg/dL [facility] ([place]) Comment:Testing performed by : [facility], [place], [address] Glucose 120 70 - 199 mg/dL [facility] ([place]) Comment: Interpretive Data Fasting glucose >/= 126 [...] last revised 2022. Testing performed by: [facility], [place], [address] Calcium 8.8 8.5 - 10.3 mg/dL [facility] ([place]) Comment:Testing performed by : [facility], [place], [address] Bilirubin, total 0.5 0.1 - 1.2 mg/dL [facility] ([place]) Comment:Testing performed by : [facility], [place], [address] Protein, pl 6.9 6.5 - 8.5 g/dL [facility] ([place]) Comment:Testing performed by : [facility], [place], [address] Albumin 3.7 3.5 - 5.0 g/dL [facility] ([place]) Comment:Testing performed by : [facility], [place], [address] Alk phos 38(L) 40 - 130 Units/L [facility] ([place]) Comment:Testing performed by : [facility], [place], [address] ALT 40 7 - 45 Units/L [facility] ([place]) Comment:Testing performed by : [place], [address] AST 23 10 - 45 Units/L [facility] ([place]) Comment:Testing performed by : [facility], [place], [address] Blood 10/11/2024 11:5 0 AM CDT 10/11/2024 2:14 PM CDT us Milla Armenta NP LAB BLOOD ORDERABLES Final Result [facility] ([place]) 1 [facility] Department [place] [address] * eGFR (10/07/2024 5:29 AM CDT) eGFR >90 >=60 mL/min/1. 73 [...] was last reviewed 2021. Testing performed by: [facility], [address] [place] [address]., [address] Blood 10/07/2024 5:29 AM CDT 10/07/2024 5:46 AM CDT us Laurel Desir MD LAB BLOOD ORDERABLES Final Res ult [facility] 8435 [facility] Department [place] [address] * (ABNORMAL) Differential, auto (10/07/2024 5:29 AM CDT) Neutrophil abs 0.13(C) 1.50 - 6.50 K/cumm Comment: Critical value called within last 72 hrs Testing performed by: [address] [address] Imm gran abs 0.00 0.00 - 0.10 K/cumm [facility] Comment:Testing performed by : [address], [place]., [address] Lymphocyte abs 0.49(L) 0.80 - 3.30 K/cumm [facility] Comment:Testing performed by : [address], [place]., [address] Monocyte abs 0.02(L) 0.20 - 0.80 K/cumm [facility] Comment:Testing performed by : [address], [place]., [address] Eosinophil abs 0.00 0.00 - 0.50 K/cumm [facility] Comment:Testing performed by : [address], [place]., [address] Basophil abs 0.00 0.00 - 0.10 K/cumm [facility] Comment:Testing performed by : [address] [address] Neutrophil pct 20.3 % [facility] Comment: Differential consistent with previous result. Differential consistent with previous result. Interpretive Data Percent cell count reference ranges are not reported, since discordance with absolute values may lead to misinterpretation of CBC data. Current Interpretive Data was last revised on 2017. Testing performed by: [address] [address] Imm gran pct 0.0 % [facility] Comment: Interpretive Data Percent cell count reference ranges are not reported, since discordance with absolute values may lead to misinterpretation of CBC data. Current Interpretive Data was last revised on 2017. Testing performed by: [address] [address] Lymphocyte pct 76.6 % [facility] Comment: Interpretive Data Percent cell count reference ranges are not reported, since discordance with absolute values may lead to misinterpretation of CBC data. Current Interpretive Data was last revised on 2017. Testing performed by: [address] [address] Monocyte pct 3.1 % [facility] Comment: Interpretive Data Percent cell count reference ranges are not reported, since discordance with absolute values may lead to misinterpretation of CBC data. Current Interpretive Data was last revised on 2017. Testing performed by: [address] [address] Eosinophil pct 0.0 % [facility] Comment: Interpretive Data Percent cell count reference ranges are not reported, since discordance with absolute values may lead to misinterpretation of CBC data. Current Interpretive Data was last revised on 2017. Testing performed by: [address] [address] Basophil pct 0.0 % [facility] Comment: Interpretive Data Percent cell count reference ranges are not reported, since discordance with absolute values may lead to misinterpretation of CBC data. Current Interpretive Data was last revised on 2017. Testing performed by: [address] [address] Blood 10/07/2024 5:29 AM CDT 10/07/2024 5:46 AM CDT us Laurel Desir MD LAB BLOOD ORDERABLES Final Res ult [facility] [address] [facility] Department [place] [address] * (ABNORMAL) CBC with auto differential (10/07/2024 5:29 AM CDT) WBC 0.64(C) 3.80 - 9.90 K/cumm Comment: Critical value called within last 72 hrs Testing performed by: [address] [address] Hgb 7.2(L) 11.9 - 15.5 g/dL [facility] Comment:Testing performed by : [address] [address] Hct 21.9(L) 35.6 - 45.5 % [facility] Comment:Testing performed by : [address] [address] Plt 142(L) 150 - 400 K/cumm [facility] Comment:Testing performed by : [address] [address] MPV 10.9 9.1 - 12.3 fL [facility] Comment:Testing performed by : [address] [address] RBC 2.29(L) 3.90 - 5.20 M/cumm [facility] Comment:Testing performed by : [address] [address] MCV 95.6 81.3 - 96.4 fL [facility] Comment:Testing performed by : [address] [address] MCH 31.4 27.1 - 33.3 pg [facility] Comment:Testing performed by : [address] [address] MCHC 32.9 32.3 - 35.7 g/dL [facility] Comment:Testing performed by : [address], [address] RDW CV 14.9 11.1 - 14.9 % S[facility] Comment:Testing performed by : [address] [address] RDW SD 51.4(H) 35.7 - 48.1 fL [facility] Comment:Testing performed by : [address] [address] NRBC abs 0.00 0.00 - 0.01 K/cumm [facility] Comment:Testing performed by : [address], [address] Morphologic Screen Results confirmed by manual morphology review. [facility] Comment:Testing performed by : [address] [address] Blood 10/07/2024 5:29 AM CDT 10/07/2024 5:46 AM CDT us Laurel Desir MD LAB BLOOD ORDERABLES Final Res ult [facility] [address] [facility] Department [place] [address] * (ABNORMAL) Basic metabolic panel (10/07/2024 5:29 AM CDT) Sodium 142 135 - 145 mmol/L Comment:Testing performed by : [address] [address] Potassium, pl 3.7 3.3 - 4.9 mmol/L S[facility]RA Comment:Testing performed by : [address] [address] Chloride 104 97 - 110 mmol/L S[facility] Comment:Testing performed by : [address] [address] CO2 32 22 - 32 mmol/L [facility] Comment:Testing performed by : [address] [address] Anion gap 6 2 - 15 mmol/L S[facility] Comment:Testing performed by : [address] [address] BUN 6 6 - 25 mg/dL [facility] Comment:Testing performed by : [address] [address] Creatinine 0.39(L) 0.60 - 1.10 mg/dL [facility] Comment:Testing performed by : [address] [address] Glucose 137 70 - 199 mg/dL [facility] Comment: Interpretive Data Fasting glucose >/= 126 [...] was last revised 2022. Testing performed by: [address] [address] Calcium 7.9(L) 8.5 - 10.3 mg/dL [facility] Comment:Testing performed by : [address] [address] Blood 10/07/2024 5:29 AM CDT 10/07/2024 5:46 AM CDT us Laurel Desir MD LAB BLOOD ORDERABLES Final Res ult Performing Organization Address City/[facility] Co de Phone Number SABRA [address] [employer] [place] [address] * eGFR (10/06/2024 5:10 AM CDT) eGFR >90 >=60 mL/min/1. 73 [...] was last reviewed 2021. Testing performed by: [facility], [address] [place] [address]., [address] Blood 10/06/2024 5:10 AM CDT 10/06/2024 5:26 AM CDT us Laurel Desir MD LAB BLOOD ORDERABLES Final Res ult Performing Organization Address City/[facility]/ZIP Co de Phone Number SABRA [address] [place] [address] * (ABNORMAL) Differential, auto (10/06/2024 5:10 AM CDT) Neutrophil abs 0.09(C) 1.50 - 6.50 K/cumm Comment: Critical value called within last 72 hrs Testing performed by: [address] [address] Imm gran abs 0.01 0.00 - 0.10 K/cumm SAB[facility] Comment:Testing performed by : [address], [place]., [address] Lymphocyte abs 0.57(L) 0.80 - 3.30 K/cumm [facility] Comment:Testing performed by : [address] [address] Monocyte abs 0.01(L) 0.20 - 0.80 K/cumm [facility] Comment:Testing performed by : [address] [address] Eosinophil abs 0.01 0.00 - 0.50 K/cumm [facility] Comment:Testing performed by : [address] [address] Basophil abs 0.00 0.00 - 0.10 K/cumm [facility] Comment:Testing performed by : [address] [address] Neutrophil pct 13.2 % [facility] Comment: Differential consistent with previous result. Differential consistent with previous result. Interpretive Data Percent cell count reference ranges are not reported, since discordance with absolute values may lead to misinterpretation of CBC data. Current Interpretive Data was last revised on 2017. Testing performed by: [address] [address] Imm gran pct 1.4 % [facility] Comment: Interpretive Data Percent cell count reference ranges are not reported, since discordance with absolute values may lead to misinterpretation of CBC data. Current Interpretive Data was last revised on 2017. Testing performed by: [address] [address] Lymphocyte pct 82.6 % [facility] Comment: Interpretive Data Percent cell count reference ranges are not reported, since discordance with absolute values may lead to misinterpretation of CBC data. Current Interpretive Data was last revised on 2017. Testing performed by: [address] [address] Monocyte pct 1.4 % S[facility] Comment: Interpretive Data Percent cell count reference ranges are not reported, since discordance with absolute values may lead to misinterpretation of CBC data. Current Interpretive Data was last revised on 2017. Testing performed by: [address] [address] Eosinophil pct 1.4 % [facility] Comment: Interpretive Data Percent cell count reference ranges are not reported, since discordance with absolute values may lead to misinterpretation of CBC data. Current Interpretive Data was last revised on 2017. Testing performed by: [address] [address] Basophil pct 0.0 % [facility] Comment: Interpretive Data Percent cell count reference ranges are not reported, since discordance with absolute values may lead to misinterpretation of CBC data. Current Interpretive Data was last revised on 2017. Testing performed by: [address] [address] Blood 10/06/2024 5:10 AM CDT 10/06/2024 5:26 AM CDT us Laurel Desir MD LAB BLOOD ORDERABLES Final Res ult [facility] [address] [facility] Department [place] [address] * (ABNORMAL) CBC with auto differential (10/06/2024 5:10 AM CDT) WBC 0.69(C) 3.80 - 9.90 K/cumm Comment: Critical value called within last 72 hrs Testing performed by: [address] [address] Hgb 7.1(L) 11.9 - 15.5 g/dL S[facility]RA Comment:Testing performed by : [address] [address] Hct 21.9(L) 35.6 - 45.5 % [facility] Comment:Testing performed by : [address], [address] Plt 149(L) 150 - 400 K/cumm [facility] Comment:Testing performed by : [address], [address] MPV 11.8 9.1 - 12.3 fL [facility]RA Comment:Testing performed by : [address], [address] RBC 2.26(L) 3.90 - 5.20 M/cumm [facility] Comment:Testing performed by : [address] [address] MCV 96.9(H) 81.3 - 96.4 fL [facility] Comment:Testing performed by : [address], [address] MCH 31.4 27.1 - 33.3 pg S[facility] Comment:Testing performed by : [address], [address] MCHC 32.4 32.3 - 35.7 g/dL [facility] Comment:Testing performed by : [address] [address] RDW CV 15.0(H) 11.1 - 14.9 % [facility] Comment:Testing performed by : [address], [address] RDW SD 53.1(H) 35.7 - 48.1 fL [facility] Comment:Testing performed by : [address], [address] NRBC abs 0.00 0.00 - 0.01 K/cumm [facility] Comment:Testing performed by : [address], [address] Morphologic Screen Results confirmed by manual morphology review. [facility] Comment:Testing performed by : [address], [address] Blood 10/06/2024 5:10 AM CDT 10/06/2024 5:26 AM CDT us Laurel Desir MD LAB BLOOD ORDERABLES Final Res ult Performing Organization Address [facility] de Phone Number AMY[address] [employer] [address] * (ABNORMAL) Phosphorus (10/06/2024 5:10 AM CDT) Pathologist [facility] [place] Phosphorus, pl 2.1(L) 2.3 - 4.5 mg/dL Comment:Testing performed by : [address] [address] Blood 10/06/2024 5:10 AM CDT 10/06/2024 5:26 AM CDT Juan A Rios MD LAB BLOOD ORDERABL ES Final Result Performing Organization Address [facility] Co de Phone Number [address] [address] * Magnesium (10/06/2024 5:10 AM CDT) [facility] Magnesium 2.0 1.4 - 2.5 mg/dL Comment:Testing performed by : [address] [address] Blood 10/06/2024 5:10 AM CDT 10/06/2024 5:26 AM CDT Juan A Rios MD LAB BLOOD ORDERABL ES Final Result Performing Organization Address [facility] Co de Phone Number [address] [address] * (ABNORMAL) Basic metabolic panel (10/06/2024 5:10 AM CDT) [facility] Sodium 136 135 - 145 mmol/L Comment:Testing performed by : [address] [address] Potassium, pl 3.6 3.3 - 4.9 mmol/L [facility] Comment:Testing performed by : [address] [address] Chloride 101 97 - 110 mmol/L SABRA Comment:Testing performed by : [address] [address] CO2 28 22 - 32 mmol/L S[facility] Comment:Testing performed by : [address] [address] Anion gap 7 2 - 15 mmol/L S[facility] Comment:Testing performed by : [address] [address] BUN 8 6 - 25 mg/dL S[facility] Comment:Testing performed by : [address] [address] Creatinine 0.42(L) 0.60 - 1.10 mg/dL [facility] Comment:Testing performed by : [address] [address] Glucose 133 70 - 199 mg/dL S[facility] Comment: Interpretive Data Fasting glucose >/= 126 [...] was last revised 2022. Testing performed by: [address] [address] Calcium 7.6(L) 8.5 - 10.3 mg/dL [facility] Comment:Testing performed by : [address] [address] Blood 10/06/2024 5:10 AM CDT 10/06/2024 5:26 AM CDT us Laurel Desir MD LAB BLOOD ORDERABLES Final Res ult [facility] [address] [facility] [place] [address] * XR Kub (10/05/2024 7:42 PM CDT) Anatomical Region Laterality Modality Body, Abdomen N/A Computed Radiogr aphy 10/06/2024 1:02 AM CDT Narrative 10/06/2024 1:06 AM CDT EXAM DESCRIPTION: XR KUB REASON FOR STUDY: constipation Pt stated that she was having diarrhea the last 2 days and was no longer constipated TECHNIQUE: Single radiographic view of the abdomen. COMPARISON: 10/01/2024 FINDINGS: BOWEL: Nonobstructive gas pattern. SOFT TISSUES: No abnormal calcifications. LINES/TUBES: None. BONES: No acute osseous abnormality. IMPRESSION: No acute abnormality THIS IS AN ELECTRONICALLY VERIFIED FINAL REPORT 10/06/2024 1:06 AM - Electronically signed by Lee SHORE: [place] Report ID: [id number] Reading Location: [id number] Procedure Note Lee Wilkins MD - 10/06/2024 EXAM DESCRIPTION: XR KUB REASON FOR STUDY: constipation Pt stated that she was having diarrhea the last 2 days and was no longer constipated TECHNIQUE: Single radiographic view of the abdomen. COMPARISON: 10/01/2024 FINDINGS: BOWEL: Nonobstructive gas pattern. SOFT TISSUES: No abnormal calcifications. LINES/TUBES: None. BONES: No acute osseous abnormality. IMPRESSION: No acute abnormality THIS IS AN ELECTRONICALLY VERIFIED FINAL REPORT 10/06/2024 1:06 AM - Electronically signed by Lee SHORE: [place] Report ID: [id number] Reading Location: [id number] Juan A Rios MD IMG XR PROCEDURES Final Result * XR Chest Pa Lateral 2 Views (10/05/2024 9:15 AM CDT) Anatomical Region Laterality Modality Body, Chest N/A Computed Radiogr aphy 10/05/2024 2:19 PM CDT Narrative 10/05/2024 2:21 PM CDT EXAM DESCRIPTION: XR CHEST PA LATERAL 2 VIEWS REASON FOR STUDY: CHF WITH LOW EJECTION FRACTION Chf with low ejection fraction TECHNIQUE: There are 2 radiographic view(s) of the chest. COMPARISON: 10/03/2024 and 11/20/2023. CT 10/01/2024. FINDINGS: LUNGS: Pulmonary vascularity appears normal. Mild interval improvement of aeration of the lungs. Costophrenic angles are sharp. HEART/MEDIASTINUM: Senescent change of the aorta. Otherwise, normal cardiomediastinal silhouette. LINES/TUBES: Port overlies the right chest with lead unchanged. Monitoring leads overlie the patient. BONES: No acute osseous abnormality. Compression mid thoracic vertebral body and lower thoracic vertebral body unchanged from the recent CT. Compressions are seen on an older CT from 12/15/2023. No acute findings by plain film. IMPRESSION: Mild interval improvement of aeration of the lungs. No acute findings or infiltrate. THIS IS AN ELECTRONICALLY VERIFIED FINAL REPORT 10/05/2024 2:21 PM - Electronically signed by Shadi Nesbitt M.D. MJ: ALINE Report ID: [id number] Reading Location: [place] [address] Procedure Note Shadi Nesbitt MD - 10/05/2024 EXAM DESCRIPTION: XR CHEST PA LATERAL 2 VIEWS REASON FOR STUDY: CHF WITH LOW EJECTION FRACTION Chf with low ejection fraction TECHNIQUE: There are 2 radiographic view(s) of the chest. COMPARISON: 10/03/2024 and 11/20/2023. CT 10/01/2024. FINDINGS: LUNGS: Pulmonary vascularity appears normal. Mild interval improvement of aeration of the lungs. Costophrenic angles are sharp. HEART/MEDIASTINUM: Senescent change of the aorta. Otherwise, normal cardiomediastinal silhouette. LINES/TUBES: Port overlies the right chest with lead unchanged.Monitoring leads overlie the patient. BONES: No acute osseous abnormality. Compression mid thoracic vertebralbody and lower thoracic vertebral body unchanged from the recent CT.Compressions are seen on an older CT from 12/15/2023. No acute findings by plain film. IMPRESSION: Mild interval improvement of aeration of the lungs. No acute findings or infiltrate. THIS IS AN ELECTRONICALLY VERIFIED FINAL REPORT 10/05/2024 2:21 PM - Electronically signed by Shadi Nesbitt M.D. MJ: ALINE Report ID: [id number] Reading Location: [id number] us Juan A Rios MD IMG XR PROCEDURES Final Result * eGFR (10/05/2024 6:06 AM CDT) eGFR >90 >=60 mL/min/1. 73 [...] was last reviewed 2021. Testing performed by: [facility], [address] [place] [address], [place]., [address] Blood 10/05/2024 6:06 AM CDT 10/05/2024 6:40 AM CDT us Laurel Desir MD LAB BLOOD ORDERABLES Final Res ult [facility] Department [place] [address] * (ABNORMAL) Differential, auto (10/05/2024 6:06 AM CDT) Neutrophil abs 0.06(C) 1.50 - 6.50 K/cumm Comment: This result has been called to [place] [id number] by [email or web address] on 10/05/2024 07:54:45, and has been read back. Testing performed by: [address] [address] Imm gran abs 0.02 0.00 - 0.10 K/cumm SABRA Comment:Testing performed by : [address] [address] Lymphocyte abs 0.44(L) 0.80 - 3.30 K/cumm SABRA Comment:Testing performed by : [address] [address] Monocyte abs 0.01(L) 0.20 - 0.80 K/cumm SABRA Comment:Testing performed by : [address] [address] Eosinophil abs 0.00 0.00 - 0.50 K/cumm SABRA Comment:Testing performed by : [address] [address] Basophil abs 0.00 0.00 - 0.10 K/cumm SABRA Comment:Testing performed by : [address] [address] Neutrophil pct 11.3 % SABRA Comment: Differential consistent with previous result. Differential consistent with previous result. Differential consistent with previous result. Interpretive Data Percent cell count reference ranges are not reported, since discordance with absolute values may lead to misinterpretation of CBC data. Current Interpretive Data was last revised on 2017. Testing performed by: [address] [address] Imm gran pct 3.8 % SABRA Comment: Interpretive Data Percent cell count reference ranges are not reported, since discordance with absolute values may lead to misinterpretation of CBC data. Current Interpretive Data was last revised on 2017. Testing performed by: [address] [address] Lymphocyte pct 83.0 % [facility] Comment: Interpretive Data Percent cell count reference ranges are not reported, since discordance with absolute values may lead to misinterpretation of CBC data. Current Interpretive Data was last revised on 2017. Testing performed by: [address] [address] Monocyte pct 1.9 % [facility] Comment: Interpretive Data Percent cell count reference ranges are not reported, since discordance with absolute values may lead to misinterpretation of CBC data. Current Interpretive Data was last revised on 2017. Testing performed by: [address] [address] Eosinophil pct 0.0 % [facility] Comment: Interpretive Data Percent cell count reference ranges are not reported, since discordance with absolute values may lead to misinterpretation of CBC data. Current Interpretive Data was last revised on 2017. Testing performed by: [address] [address] Basophil pct 0.0 % [facility] Comment: Interpretive Data Percent cell count reference ranges are not reported, since discordance with absolute values may lead to misinterpretation of CBC data. Current Interpretive Data was last revised on 2017. Testing performed by: [address] [address] Blood 10/05/2024 6:06 AM CDT 10/05/2024 6:40 AM CDT us Laurel Desir MD LAB BLOOD ORDERABLES Final Res ult SABRA 9288 [facility] [place] [address] * (ABNORMAL) CBC with auto differential (10/05/2024 6:06 AM CDT) WBC 0.53(C) 3.80 - 9.90 K/cumm Comment: This result has been called to [place] [id number] by [email or web address] on 10/05/2024 07:54:45, and has been read back. Testing performed by: [address] [address] Hgb 7.6(L) 11.9 - 15.5 g/dL SABRA Comment:Testing performed by : [address] [address] Hct 23.6(L) 35.6 - 45.5 % [facility] Comment:Testing performed by : [address] [address] Plt 152 150 - 400 K/cumm SABRA Comment:Testing performed by : [address], [address] MPV 11.6 9.1 - 12.3 fL SABRA Comment:Testing performed by : [address] [address] RBC 2.41(L) 3.90 - 5.20 M/cumm SABRA Comment:Testing performed by : [address] [address] MCV 97.9(H) 81.3 - 96.4 fL [facility] Comment:Testing performed by : [address] [address] MCH 31.5 27.1 - 33.3 pg [facility] Comment:Testing performed by : [address] [address] MCHC 32.2(L) 32.3 - 35.7 g/dL SABRA Comment:Testing performed by : [address] [address] RDW CV 15.0(H) 11.1 - 14.9 % [facility] Comment:Testing performed by : [address], [address] RDW SD 53.0(H) 35.7 - 48.1 fL SABRA Comment:Testing performed by : [address] [address] NRBC abs 0.00 0.00 - 0.01 K/cumm SABRA Comment:Testing performed by : [address] [address] Morphologic Screen Results confirmed by manual morphology review. SABRA Comment:Testing performed by : [address] [address] Blood 10/05/2024 6:06 AM CDT 10/05/2024 6:40 AM CDT us Laurel Desir MD LAB BLOOD ORDERABLES Final Res ult SABRA 4500 [facility] Department [place] [address] * (ABNORMAL) Basic metabolic panel (10/05/2024 6:06 AM CDT) Sodium 139 135 - 145 mmol/L Comment:Testing performed by : [address] [address] Potassium, pl 4.2 3.3 - 4.9 mmol/L SABRA Comment:Testing performed by : [address] [address] Chloride 102 97 - 110 mmol/L SABRA Comment:Testing performed by : [address] [address] CO2 30 22 - 32 mmol/L SABRA Comment:Testing performed by : [address] [address] Anion gap 7 2 - 15 mmol/L SABRA Comment:Testing performed by : [address] [address] BUN 11 6 - 25 mg/dL SABRA Comment:Testing performed by : [address] [address] Creatinine 0.43(L) 0.60 - 1.10 mg/dL SABRA Comment:Testing performed by : [address] [address] Glucose 144 70 - 199 mg/dL SABRA Comment: Interpretive Data Fasting glucose >/= 126 [...] was last revised 2022. Testing performed by: [address] [address] Calcium 7.8(L) 8.5 - 10.3 mg/dL SABRA Comment:Testing performed by : [address] [address] Blood 10/05/2024 6:06 AM CDT 10/05/2024 6:40 AM CDT us Laurel Desir MD LAB BLOOD ORDERABLES Final Res ult Performing Organization Address City/[facility] Co de Phone Number [address] [place] [address] * Blood smear review (10/04/2024 5:48 AM CDT) Pathologist [facility] [place] RBC morphology Consistent with RBC Indicies Comment:Testing performed by : [address] [address] Platelet estimate Automated Count Confirmed SABRA Comment:Testing performed by : [address] [address] Blood 10/04/2024 5:48 AM CDT 10/04/2024 6:23 AM CDT us Laurel Dseir MD LAB BLOOD ORDERABLES Final Res ult Performing Organization Address City/[facility] Co de Phone Number [address] [place] [address] * eGFR (10/04/2024 5:48 AM CDT) Pathologist [facility] [place] eGFR >90 >=60 mL/min/1. 73 m2 Comment: [...] was last reviewed 2021. Testing performed by: [address] [address] Blood 10/04/2024 5:48 AM CDT 10/04/2024 6:23 AM CDT us Laurel Desir MD LAB BLOOD ORDERABLES Final Res ult SABRA 6789 [facility] Department [place] [address] * (ABNORMAL) Differential, auto (10/04/2024 5:48 AM CDT) Neutrophil abs 0.04(C) 1.50 - 6.50 K/cumm Comment: Critical value called within last 72 hrs Testing performed by: [address] [address] Imm gran abs 0.00 0.00 - 0.10 K/cumm SABRA PARKS Comment:Testing performed by : [address] [address] Lymphocyte abs 0.48(L) 0.80 - 3.30 K/cumm SABRA Comment:Testing performed by : [address] [address] Monocyte abs 0.05(L) 0.20 - 0.80 K/cumm [facility] Comment:Testing performed by : [address] [address] Eosinophil abs 0.00 0.00 - 0.50 K/cumm [facility] Comment:Testing performed by : [address] [address] Basophil abs 0.00 0.00 - 0.10 K/cumm [facility] Comment:Testing performed by : [address] [address] Neutrophil pct 7.0 % [facility] Comment: Differential consistent with previous result. Differential consistent with previous result. Differential consistent with previous result. Interpretive Data Percent cell count reference ranges are not reported, since discordance with absolute values may lead to misinterpretation of CBC data. Current Interpretive Data was last revised on 2017. Testing performed by: [address] [address] Imm gran pct 0.0 % [facility] Comment: Interpretive Data Percent cell count reference ranges are not reported, since discordance with absolute values may lead to misinterpretation of CBC data. Current Interpretive Data was last revised on 2017. Testing performed by: [address] [address] Lymphocyte pct 84.2 % [facility] Comment: Interpretive Data Percent cell count reference ranges are not reported, since discordance with absolute values may lead to misinterpretation of CBC data. Current Interpretive Data was last revised on 2017. Testing performed by: [address] [address] Monocyte pct 8.8 % [facility] Comment: Interpretive Data Percent cell count reference ranges are not reported, since discordance with absolute values may lead to misinterpretation of CBC data. Current Interpretive Data was last revised on 2017. Testing performed by: [address] [address] Eosinophil pct 0.0 % [facility] Comment: Interpretive Data Percent cell count reference ranges are not reported, since discordance with absolute values may lead to misinterpretation of CBC data. Current Interpretive Data was last revised on 2017. Testing performed by: [address] [address] Basophil pct 0.0 % SABRA PARKS Comment: Interpretive Data Percent cell count reference ranges are not reported, since discordance with absolute values may lead to misinterpretation of CBC data. Current Interpretive Data was last revised on 2017. Testing performed by: [address] [address] Blood 10/04/2024 5:48 AM CDT 10/04/2024 6:23 AM CDT us Laurel Desir MD LAB BLOOD ORDERABLES Final Res ult SABRA PARKS [facility]8 [facility] Department [place] [address] * (ABNORMAL) CBC with auto differential (10/04/2024 5:48 AM CDT) WBC 0.57(C) 3.80 - 9.90 K/cumm Comment: Critical value called within last 72 hrs Testing performed by: [address] [address] Hgb 7.7(L) 11.9 - 15.5 g/dL SABRA PARKS Comment:Testing performed by : [address] [address] Hct 23.8(L) 35.6 - 45.5 % SABRA PARKS Comment:Testing performed by : [address] [address] Plt 136(L) 150 - 400 K/cumm SABRA PARKS Comment:Testing performed by : [address] [address] MPV 11.5 9.1 - 12.3 fL SABRA PARKS Comment:Testing performed by : [address] [address] RBC 2.46(L) 3.90 - 5.20 M/cumm SABRA PARKS Comment:Testing performed by : [address] [address] MCV 96.7(H) 81.3 - 96.4 fL SABRA PARKS Comment:Testing performed by : [address] [address] MCH 31.3 27.1 - 33.3 pg SABRA PARKS Comment:Testing performed by : [address] [address] MCHC 32.4 32.3 - 35.7 g/dL SABRA PARKS Comment:Testing performed by : [address] [address] RDW CV 15.1(H) 11.1 - 14.9 % SABRA PARKS Comment:Testing performed by : [address] [address] RDW SD 52.9(H) 35.7 - 48.1 fL SABRA PARKS Comment:Testing performed by : [address] [address] NRBC abs 0.00 0.00 - 0.01 K/cumm SABRA PARKS Comment:Testing performed by : [address] [address] Blood 10/04/2024 5:48 AM CDT 10/04/2024 6:23 AM CDT us Laurel Desir MD LAB BLOOD ORDERABLES Edited Re sult - Final SABRA 9206 [facility] Department of Laboratories [place], [place] [id number] * (ABNORMAL) Basic metabolic panel (10/04/2024 5:48 AM CDT) Sodium 139 135 - 145 mmol/L Comment:Testing performed by : [address] [address] Potassium, pl 4.1 3.3 - 4.9 mmol/L SABRA PARKS Comment:Testing performed by : [address] [address] Chloride 103 97 - 110 mmol/L SABRA PARKS Comment:Testing performed by : [address] [place]., [address] CO2 31 22 - 32 mmol/L SABRA Comment:Testing performed by : [address] [address] Anion gap 5 2 - 15 mmol/L SABRA Comment:Testing performed by : [address] [address] BUN 8 6 - 25 mg/dL SABRA Comment:Testing performed by : [address] [address] Creatinine 0.41(L) 0.60 - 1.10 mg/dL SABRA Comment:Testing performed by : [address] [address] Glucose 141 70 - 199 mg/dL SABRA Comment: Interpretive Data Fasting glucose >/= 126 [...] was last revised 2022. Testing performed by: [address] [address] Calcium 7.7(L) 8.5 - 10.3 mg/dL SABRA Comment:Testing performed by : [address] [address] Blood 10/04/2024 5:48 AM CDT 10/04/2024 6:23 AM CDT us Laurel Desir MD LAB BLOOD ORDERABLES Final Res ult SABRA PARKS 4214 [facility] Department [place] [address] * POCT glucose (10/03/2024 8:17 PM CDT) Glucose, POC 192 70 - 199 mg/dL Comment:Testing performed by : [facility], [address] [place] [address]., [address] Glucose comment 1 RN/MD Notified SABRA PARKS Comment:Testing performed by : [facility], [address] [place] [address]., [address] Blood 10/03/2024 8:17 PM CDT 10/03/2024 8:17 PM CDT Juan A Rios MD LAB POCT ORDERABLE S - DEVICE Final Result SABRA PARKS 7027 [facility] Department [place] [address] * XR Chest 1 View (10/03/2024 9:49 AM CDT) Anatomical Region Laterality Modality Body, Chest N/A Computed Radiogr aphy 10/03/2024 12:3 3 PM CDT Narrative 10/03/2024 12:36 PM CDT EXAM DESCRIPTION: XR CHEST 1 VIEW REASON FOR STUDY: dyspnea Generalized weakness and fatigue, SOB. TECHNIQUE: 1 radiographic view(s) of the chest. COMPARISON: 09/29/2024 FINDINGS: LUNGS: Interval decrease in bilateral interstitial and airspace opacities. Suspected trace left pleural effusion. No pneumothorax. HEART/MEDIASTINUM: Stable cardiac and mediastinal contours. LINES/TUBES: Right subclavian approach Port-A-Cath with tip in the superior vena cava. BONES: No acute osseous abnormality. IMPRESSION: 1. Interval decrease in bilateral interstitial and airspace opacities. Stable chronic interstitial lung markings. 2. Trace left pleural effusion. THIS IS AN ELECTRONICALLY VERIFIED FINAL REPORT 10/03/2024 12:36 PM - Electronically signed by Esdras Edgar M.D. MM: MM Report ID: [id number] Reading Location: [id number] Procedure Note Esdras Edgar MD - 10/03/2024 EXAM DESCRIPTION: XR CHEST 1 VIEW REASON FOR STUDY: dyspnea Generalized weakness and fatigue, SOB. TECHNIQUE: 1 radiographic view(s) of the chest. COMPARISON: 09/29/2024 FINDINGS: LUNGS: Interval decrease in bilateral interstitial and airspace opacities. Suspected trace left pleural effusion. No pneumothorax. HEART/MEDIASTINUM: Stable cardiac and mediastinal contours. LINES/TUBES: Right subclavian approach Port-A-Cath with tip in thesuperior vena cava. BONES: No acute osseous abnormality. IMPRESSION: 1. Interval decrease in bilateral interstitial and airspace opacities. Stable chronic interstitial lung markings. 2. Trace left pleural effusion. THIS IS AN ELECTRONICALLY VERIFIED FINAL REPORT 10/03/2024 12:36 PM - Electronically signed by Esdras Edgar M.D. MM: MM Report ID: [id number] Reading Location: [place] [address] Gretta Martinze MD IMG XR PROCEDURES Aylin l Result * eGFR (10/03/2024 6:19 AM CDT) eGFR >90 >=60 mL/min/1. 73 [...] was last reviewed 2021. Testing performed by: [address] [address] Blood 10/03/2024 6:19 AM CDT 10/03/2024 7:42 AM CDT us Laurel Desir MD LAB BLOOD ORDERABLES Final Res ult [facility] 3370 [facility] Department [place] [address] * (ABNORMAL) Differential, auto (10/03/2024 6:19 AM CDT) Neutrophil abs 0.03(C) 1.50 - 6.50 K/cumm Comment: Critical value called within last 72 hrs Testing performed by: [address] [address] Imm gran abs 0.01 0.00 - 0.10 K/cumm SABRA Comment:Testing performed by : [address] [address] Lymphocyte abs 0.41(L) 0.80 - 3.30 K/cumm SABRA Comment:Testing performed by : [address] [address] Monocyte abs 0.06(L) 0.20 - 0.80 K/cumm SABRA Comment:Testing performed by : [address] [address] Eosinophil abs 0.00 0.00 - 0.50 K/cumm SABRA Comment:Testing performed by : [address] [address] Basophil abs 0.00 0.00 - 0.10 K/cumm SABRA Comment:Testing performed by : [address] [address] Neutrophil pct 5.8 % SABRA Comment: Differential consistent with previous result. Differential consistent with previous result. Interpretive Data Percent cell count reference ranges are not reported, since discordance with absolute values may lead to misinterpretation of CBC data. Current Interpretive Data was last revised on 2017. Testing performed by: [address] [place]., [address] Imm gran pct 2.0 % [facility] Comment: Interpretive Data Percent cell count reference ranges are not reported, since discordance with absolute values may lead to misinterpretation of CBC data. Current Interpretive Data was last revised on 2017. Testing performed by: [address] [address] Lymphocyte pct 80.4 % [facility] Comment: Interpretive Data Percent cell count reference ranges are not reported, since discordance with absolute values may lead to misinterpretation of CBC data. Current Interpretive Data was last revised on 2017. Testing performed by: [address] [address] Monocyte pct 11.8 % [facility] Comment: Interpretive Data Percent cell count reference ranges are not reported, since discordance with absolute values may lead to misinterpretation of CBC data. Current Interpretive Data was last revised on 2017. Testing performed by: [address] [address] Eosinophil pct 0.0 % [facility] Comment: Interpretive Data Percent cell count reference ranges are not reported, since discordance with absolute values may lead to misinterpretation of CBC data. Current Interpretive Data was last revised on 2017. Testing performed by: [address] [address] Basophil pct 0.0 % [facility] Comment: Interpretive Data Percent cell count reference ranges are not reported, since discordance with absolute values may lead to misinterpretation of CBC data. Current Interpretive Data was last revised on 2017. Testing performed by: [address] [address] Blood 10/03/2024 6:19 AM CDT 10/03/2024 6:23 AM CDT us Laurel Desir MD LAB BLOOD ORDERABLES Final Res ult SABRA 2924 [facility] Department [place] [address] * (ABNORMAL) CBC with auto differential (10/03/2024 6:19 AM CDT) [facility] WBC 0.51(C) 3.80 - 9.90 K/cumm Comment: Critical value called within last 72 hrs Testing performed by: [address], [address] Hgb 7.6(L) 11.9 - 15.5 g/dL SABRA Comment:Testing performed by : [address], [address] Hct 23.5(L) 35.6 - 45.5 % SABRA Comment:Testing performed by : [address], [address] Plt 107(L) 150 - 400 K/cumm SABRA Comment:Testing performed by : [address], [address] MPV 11.8 9.1 - 12.3 fL SABRA Comment:Testing performed by : [address], [address] RBC 2.44(L) 3.90 - 5.20 M/cumm SABRA Comment:Testing performed by : [address], [address] MCV 96.3 81.3 - 96.4 fL SABRA Comment:Testing performed by : [address], [address] MCH 31.1 27.1 - 33.3 pg SABRA Comment:Testing performed by : [address], [address] MCHC 32.3 32.3 - 35.7 g/dL SABRA Comment:Testing performed by : [address], [address] RDW CV 15.0(H) 11.1 - 14.9 % SABRA Comment:Testing performed by : [address], [address] RDW SD 52.5(H) 35.7 - 48.1 fL SABRA Comment:Testing performed by : [address], [address] NRBC abs 0.00 0.00 - 0.01 K/cumm SABRA Comment:Testing performed by : [address] [address] Morphologic Screen Results confirmed by manual morphology review. SABRA PARKS Comment:Testing performed by : [address] [address] Blood 10/03/2024 6:19 AM CDT 10/03/2024 6:23 AM CDT us Laurel Desir MD LAB BLOOD ORDERABLES Final Res ult Performing Organization Address [facility] Co de Phone Number [address] [employer] [address] * (ABNORMAL) CRP (acute phase) (10/03/2024 6:19 AM CDT) CRP 95.5(H) <=10.0 mg/L Comment:Testing performed by : [address] [address] Blood 10/03/2024 6:19 AM CDT 10/03/2024 6:23 AM CDT us Gretta Martinez MD LAB BLOOD ORDERABLES F inal Result Performing Organization Address [facility] Co de Phone Number [address] [address] * (ABNORMAL) Basic metabolic panel (10/03/2024 6:19 AM CDT) Sodium 140 135 - 145 mmol/L Comment:Testing performed by : [address] [address] Potassium, pl 4.5 3.3 - 4.9 mmol/L SABRA PARKS Comment: Delta - Results Reviewed Testing performed by: [address] [address] Chloride 103 97 - 110 mmol/L SABRA Comment:Testing performed by : [address] [place] [address] CO2 31 22 - 32 mmol/L SABRA Comment:Testing performed by : [address] [address] Anion gap 6 2 - 15 mmol/L SABRA Comment:Testing performed by : [address] [address] BUN 7 6 - 25 mg/dL SABRA Comment:Testing performed by : [address] [address] Creatinine 0.40(L) 0.60 - 1.10 mg/dL SABRA Comment:Testing performed by : [address] [address] Glucose 145 70 - 199 mg/dL SABRA Comment: Interpretive Data Fasting glucose >/= 126 [...] was last revised 2022. Testing performed by: [address] [address] Calcium 7.7(L) 8.5 - 10.3 mg/dL SABRA Comment:Testing performed by : [address] [address] Blood 10/03/2024 6:19 AM CDT 10/03/2024 6:23 AM CDT us Laurel Desir MD LAB BLOOD ORDERABLES Final Res ult SABRA PARKS 57[address] [facility] [place] [address] * (ABNORMAL) Blood smear review (10/02/2024 4:26 AM CDT) Pathologist [facility] [place] RBC morphology Present(A) Comment:Testing performed by : [facility], [address] [place] [address]., [address] Anisocytosis Slight(A) SABRA Comment:Testing performed by : [facility], [address] [place] [address]., [address] Microcytes 3-7/HPF(A) SABRA Comment:Testing performed by : [address] [address] Platelet estimate Automated Count Confirmed SABRA Comment:Testing performed by : [facility], [address] [place] [address], [place]., [address] Giant platelets Present(A) SABRA Comment:Testing performed by : [facility], [address] [place] [address], [place]., [address] Blood 10/02/2024 4:26 AM CDT 10/02/2024 5:24 AM CDT us Laurel Desir MD LAB BLOOD ORDERABLES Final Res ult SABRA 4500 [facility] Department of Laboratories [place], [place] [id number] * eGFR (10/02/2024 4:26 AM CDT) Pathologist [facility] [place] eGFR >90 >=60 mL/min/1. 73 m2 Comment: [...] was last reviewed 2021. Testing performed by: [address] [address] Blood 10/02/2024 4:26 AM CDT 10/02/2024 5:24 AM CDT us Laurel Desir MD LAB BLOOD ORDERABLES Final Res ult [facility] 4469 [facility] Department [place] [address] * (ABNORMAL) Differential, auto (10/02/2024 4:26 AM CDT) Neutrophil abs 0.01(C) 1.50 - 6.50 K/cumm Comment: This result has been called to [id number] by [email or web address] on 10/02/2024 07:28:40, and has been read back. Testing performed by: [address] [address] Imm gran abs 0.00 0.00 - 0.10 K/cumm SABRA Comment:Testing performed by : [address] [address] Lymphocyte abs 0.35(L) 0.80 - 3.30 K/cumm SABRA Comment:Testing performed by : [address] [address] Monocyte abs 0.03(L) 0.20 - 0.80 K/cumm SABRA Comment:Testing performed by : [address] [address] Eosinophil abs 0.00 0.00 - 0.50 K/cumm SABRA Comment:Testing performed by : [address] [address] Basophil abs 0.00 0.00 - 0.10 K/cumm SABRA Comment:Testing performed by : [address] [address] Neutrophil pct 2.6 % SABRA Comment: Interpretive Data Percent cell count reference ranges are not reported, since discordance with absolute values may lead to misinterpretation of CBC data. Current Interpretive Data was last revised on 2017. Testing performed by: [address] [address] Imm gran pct 0.0 % SABRA Comment: Interpretive Data Percent cell count reference ranges are not reported, since discordance with absolute values may lead to misinterpretation of CBC data. Current Interpretive Data was last revised on 2017. Testing performed by: [address] [address] Lymphocyte pct 89.7 % SABRA Comment: Interpretive Data Percent cell count reference ranges are not reported, since discordance with absolute values may lead to misinterpretation of CBC data. Current Interpretive Data was last revised on 2017. Testing performed by: [address] [address] Monocyte pct 7.7 % SABRA Comment: Interpretive Data Percent cell count reference ranges are not reported, since discordance with absolute values may lead to misinterpretation of CBC data. Current Interpretive Data was last revised on 2017. Testing performed by: [address] [address] Eosinophil pct 0.0 % SABRA Comment: Interpretive Data Percent cell count reference ranges are not reported, since discordance with absolute values may lead to misinterpretation of CBC data. Current Interpretive Data was last revised on 2017. Testing performed by: [address] [address] Basophil pct 0.0 % SABRA Comment: Interpretive Data Percent cell count reference ranges are not reported, since discordance with absolute values may lead to misinterpretation of CBC data. Current Interpretive Data was last revised on 2017. Testing performed by: [address] [address] Blood 10/02/2024 4:26 AM CDT 10/02/2024 5:24 AM CDT us Laurel Desir MD LAB BLOOD ORDERABLES Final Res ult SABRA [address] [facility] [place] [address] * (ABNORMAL) CBC with auto differential (10/02/2024 4:26 AM CDT) WBC 0.39(C) 3.80 - 9.90 K/cumm Comment: This result has been called to [id number] by [id number] on 10/02/2024 07:28:40, and has been read back. Testing performed by: [address] [address] Hgb 7.5(L) 11.9 - 15.5 g/dL SABRA Comment:Testing performed by : [address] [address] Hct 22.5(L) 35.6 - 45.5 % SABRA Comment:Testing performed by : [address] [address] Plt 84(L) 150 - 400 K/cumm SABRA Comment:Testing performed by : [address] [address] MPV 11.5 9.1 - 12.3 fL SABRA Comment:Testing performed by : [address] [address] RBC 2.42(L) 3.90 - 5.20 M/cumm SABRA Comment:Testing performed by : [address] [address] MCV 93.0 81.3 - 96.4 fL SABRA Comment:Testing performed by : [address] [address] MCH 31.0 27.1 - 33.3 pg SABRA Comment:Testing performed by : [address] [address] MCHC 33.3 32.3 - 35.7 g/dL SABRA Comment:Testing performed by : [address] [address] RDW CV 14.9 11.1 - 14.9 % SABRA Comment:Testing performed by : [address] [address] RDW SD 50.3(H) 35.7 - 48.1 fL SABRA Comment:Testing performed by : [address] [address] NRBC abs 0.00 0.00 - 0.01 K/cumm SABRA PARKS Comment:Testing performed by : [address] [address] Blood 10/02/2024 4:26 AM CDT 10/02/2024 5:24 AM CDT us Laurel Desir MD LAB BLOOD ORDERABLES Edited Re sult - Final Performing Organization Address City/[facility] Co de Phone Number [address] [employer] [address] * (ABNORMAL) Phosphorus (10/02/2024 4:26 AM CDT) Phosphorus, pl 1.8(L) 2.3 - 4.5 mg/dL Comment:Testing performed by : [address], [address] Blood 10/02/2024 4:26 AM CDT 10/02/2024 5:24 AM CDT us Juan A Rios MD LAB BLOOD ORDERABL ES Final Result Performing Organization Address [facility] Co de Phone Number [address] [place] [address] * Magnesium (10/02/2024 4:26 AM CDT) Magnesium 1.9 1.4 - 2.5 mg/dL Comment:Testing performed by : [address] [address] Blood 10/02/2024 4:26 AM CDT 10/02/2024 5:24 AM CDT us Juan A Rios MD LAB BLOOD ORDERABL ES Final Result SABRA [address] [facility] Department [place] [address] * (ABNORMAL) Basic metabolic panel (10/02/2024 4:26 AM CDT) Sodium 140 135 - 145 mmol/L Comment:Testing performed by : [address] [address] Potassium, pl 3.4 3.3 - 4.9 mmol/L SABRA Comment:Testing performed by : [address] [address] Chloride 101 97 - 110 mmol/L SABRA Comment:Testing performed by : [address] [address] CO2 32 22 - 32 mmol/L SABRA Comment:Testing performed by : [address] [address] Anion gap 7 2 - 15 mmol/L SABRA Comment:Testing performed by : [address] [address] BUN 6 6 - 25 mg/dL SABRA Comment:Testing performed by : [address] [address] Creatinine 0.47(L) 0.60 - 1.10 mg/dL SABRA Comment:Testing performed by : [address] [address] Glucose 137 70 - 199 mg/dL SABRA Comment: Interpretive Data Fasting glucose >/= 126 [...] was last revised 2022. Testing performed by: [address] [address] Calcium 7.7(L) 8.5 - 10.3 mg/dL SABRA Comment:Testing performed by : [address] [address] Blood 10/02/2024 4:26 AM CDT 10/02/2024 5:24 AM CDT us Laurel Desir MD LAB BLOOD ORDERABLES Final Res ult Performing Organization Address [facility]/ZIP Co de Phone Number AMY[address] [place] [address] * Coccidioides antibody screen w/reflex Blood (10/01/2024 8:07 PM CDT) [facility] Coccidioides ab screen, ser Negative Negative [facility] Comment: Repeat testing on a new sample in 2-3 weeks if clinically indicated. ADDITIONAL INFORMATION This test has been modified from the knife setter grinder machine's instructions. Its performance characteristics were determined by [facility] in a manner consistent with CLIA requirements. This test has not been cleared or approved by the U.S. Food and Drug Administration. Test Performed by: [place] [address] Technician Terminal And Repeater: Lloyd Olmstead Ph.D.; CLIA# [id number] Testing performed by: [address] [address] Blood 10/01/2024 8:07 PM CDT 10/01/2024 8:23 PM CDT Gretta Martinez MD LAB MICROBIOLOGY - GEN ERAL ORDERABLES Final Result Performing Organization Address City/[facility]/ZIP Co de Phone Number [address] [place] [address] [facility] * Blastomyces antibody, EIA, serum Blood (10/01/2024 8:07 PM CDT) Blastomyces Antibody Negative Negative [facility] Comment: A single negative result does not exclude the diagnosis of blastomycosis. Repeat testing on a new sample in 7-14 days if clinically indicated. Test Performed by: [facility] [address] [place] [address] Technician Terminal And Repeater: Lloyd Olmstead Ph.D.; CLIA# [id number] Testing performed by: [facility], [address] [place] [address]., [address] Blood 10/01/2024 8:07 PM CDT 10/01/2024 8:23 PM CDT Gretta Martinez MD LAB MICROBIOLOGY - GEN ERAL ORDERABLES Final Result SABRA [address] [facility] Department [place] [address] [facility] * Cryptococcal Antigen, Serum Blood (10/01/2024 8:07 PM CDT) Cryptococcus ag, Serum Negative Negative Comment: The cryptococcal antigen test was performed using the IMMY CrAg Lateral Flow Assay. This assay is FDA cleared for serum and CSF specimens and for the detection of Cryptococcus neoformans and Cryptococcus gattii. If the result is positive, the specimen will be titered and reported from less than 1:5 to greater than or equal to 1:2560. This assay does not distinguish between C. neoformans and C. gattii. Testing hemolyzed serum samples may lead to false negatives. Current interpretive data last revised 2018. Testing performed by: [facility], [address] [facility], [place]., [address] Blood 10/01/2024 8:07 PM CDT 10/02/2024 2:16 AM CDT Gretta Martinez MD LAB MICROBIOLOGY - GEN ERAL ORDERABLES Final Result Performing Organization Address City/[facility] Co de Phone Number SABRA [address] [place] [employer] [address] * Aspergillus galactomannan antigen Blood (10/01/2024 8:07 PM CDT) Aspergillus galactomannan Ag TNP [facility] Comment: Aspergillus Ag, S was cancelled on 10/03/2024 at 12:25; INCORRECT COLLECTION CONTAINER SUBMITTED. Test Performed by: [facility] [address] [place] [address] Technician Terminal And Repeater: Lloyd Olmstead Ph.D.; CLIA# [id number] Testing performed by: [facility], [address] [place] [address]., [address] Blood 10/01/2024 8:07 PM CDT 10/01/2024 8:23 PM CDT Gretta Martinez MD LAB MICROBIOLOGY - GEN ERAL ORDERABLES Final Result Performing Organization Address [facility] Co de Phone Number SABRA [address] [place] [address] [facility] * Transfuse RBC (10/01/2024 6:25 PM CDT) Blood Lisette Loera NP BLOOD TRANSFUSION ORDERABLES Final Result Performing Organization Address [facility] de Phone Number SABRA [address] [place] [address] * Histoplasma Antigen Urine (10/01/2024 6:10 PM CDT) Histo/Blasto Ag Value Not Detected ng/mL [facility] Comment: ADDITIONAL INFORMATION This test was developed and its performance characteristics determined by [facility] in a manner consistent with CLIA requirements. This test has not been cleared or approved by the U.S. Food and Drug Administration. Test Performed by: [facility] [address] [place] [address] Technician Terminal And Repeater: Lloyd Olmstead Ph.D.; CLIA# [id number] Testing performed by: [facility], [address] [place] [address]., [address] Histo/Blasto Ag Result Not Detected Not Detected SABRA Comment: No antigen from Histoplasma or Blastomyces detected. False negative results may occur depending on extent of disease, and/or site of infection. Repeat testing on a new specimen if clinically indicated. Testing performed by: [facility], [address] [place] [address]., [address] Urine 10/01/2024 6:10 PM CDT 10/01/2024 6:27 PM CDT Gretta Martinez MD LAB MICROBIOLOGY - GEN ERAL ORDERABLES Final Result Performing Organization Address [facility] de Phone Number [place] [id number] [place] [address] [facility] * Legionella antigen Urine (10/01/2024 6:10 PM CDT) Legionella Ag Negative Negative Comment: Interpretive Data This test detects only Legionella pneumophila serogroup 1 antigen. Testing performed by [facility] ([phone]). Current interpretive data was last revised on 2019. Testing performed by: [facility], [address] [place] [address] Urine 10/01/2024 6:10 PM CDT 10/01/2024 10:12 PM CDT Gretta Martinez MD LAB MICROBIOLOGY - GEN ERAL ORDERABLES Final Result Performing Organization Address City/[facility] Co de Phone Number [facility] [address] [facility] [place] [address] * Respiratory pathogen panel Nasopharyngeal (10/01/2024 5:35 PM CDT) Pathologist [facility] Influenza A RNA Not Detected Not Detected Comment:Testing performed by : [facility], [address] [place] [address] Influenza B RNA Not Detected Not Detected SABRA Comment:Testing performed by : [facility], [address] [place] [address] RSV RNA Not Detected Not Detected [place] Comment:Testing performed by : [facility], [address] [place] [address] COVID-19 RNA Not Detected Not Detected [place] Comment:Testing performed by : [facility], [address] [place] [address] Coronavirus 229E RNA Not Detected Not Detected [place] Comment:Testing performed by : [facility], [address] [place] [address] Coronavirus HKU1 RNA Not Detected Not Detected [place] Comment:Testing performed by : [facility], [address] [place] [address] Coronavirus NL63 RNA Not Detected Not Detected [place] Comment:Testing performed by : [facility], [address] [place]., [address] Coronavirus OC43 RNA Not Detected Not Detected [place] Comment:Testing performed by : [facility], [address] [place]., [address] Adenovirus DNA Not Detected Not Detected [place] Comment:Testing performed by : [facility], [address] [place] [address] Metapneumovirus RNA Not Detected Not Detected [place] Comment:Testing performed by : [facility], [address] [place] [address] Rhinovirus/Enterov irus RNA Not Detected Not Detected [place] Comment:Testing performed by : [facility], [address] [place]., [address] Parainfluenza 1 RNA Not Detected Not Detected [facility] Comment:Testing performed by : [facility], [address] [place] [address] Parainfluenza 2 RNA Not Detected Not Detected [facility] Comment:Testing performed by : [facility], [address] [facility], [address] Parainfluenza 3 RNA Not Detected Not Detected [facility] Comment:Testing performed by : [facility], [address] [facility], [address] Parainfluenza 4 RNA Not Detected Not Detected [facility] Comment:Testing performed by : [facility], [address] [facility], [address] B. pertussis DNA Not Detected Not Detected [facility] Comment:Testing performed by : [facility], [address] [facility], [address] B. parapertussis DNA Not Detected Not Detected [facility] Comment:Testing performed by : [facility], [address] [facility], [address] C. pneumoniae DNA Not Detected Not Detected [facility] Comment:Testing performed by : [facility], [address] [facility], [address] M. pneumoniae DNA Not Detected Not Detected [facility] Comment:Testing performed by : [facility], [address] [place] [address], [address] Nasopharyngeal 10/01/2024 5: 35 PM CDT 10/01/2024 10:13 PM CDT Narrative [facility] - 10/01/2024 11:06 PM CDT Is the Patient experiencing symptoms consistent with COVID?->No Surveillance testing for transplant patient?->No Interpretive Data The [employer] FilmArray Respiratory Panel (RP2.1) assay is a multiplexed real-time PCR based nucleic acid test capable of simultaneous qualitative detection and identification of multiple respiratory viral and bacterial nucleic acids, including SARS Coronavirus 2 (the causative agent of COVID-19). The following bacteria, viruses and virus subtypes can be identified using the FilmArray RP2.1 assay: Bordetella pertussis, Bordetella parapertussis, Chlamydia pneumoniae, Mycoplasma pneumoniae, Adenovirus, SARS Coronavirus 2, seasonal coronaviruses (Coronavirus HKU1, Coronavirus NL63, Coronavirus 229E, and Coronavirus OC43), Influenza A, Influenza A subtype H1, Influenza A subtype H3, Influenza A subtype 2009 H1, Influenza B, Metapneumovirus, Parainfluenza 1, Parainfluenza 2, Parainfluenza 3, Parainfluenza 4, RSV, Rhinovirus/Enterovirus. Due to the genetic similarity between human Rhinovirus and Enterovirus, the FilmArray RP2.1 assay cannot reliably differentiate them. Coronavirus OC43 may cross-react with some isolates of Coronavirus HKU1. A dual positive result may be due to cross-reactivity or may indicate a co- infection. The detection and identification of specific viral and bacterial nucleic acids from individuals exhibiting signs and symptoms of a respiratory infection aids in the diagnosis of respiratory infection if used in conjunction with other clinical and epidemiological information. The results of this test should not be used as the sole basis for diagnosis, treatment, or other management decisions. Negative results in the setting of a respiratory illness may be due to infection with pathogens that are not detected by this test. Positive results do not rule out infection/co-infection with other organisms. The agent(s) detected by the FilmArray RP2.1 may not be the definite cause of disease. Additional testing (lab, imaging, etc.) may be necessary when evaluating a patient with possible respiratory tract infection. The FilmArray RP2.1 assay has FDA clearance for testing of FOREST TECHNOLOGY PROFESSOR swabs. The performance of additional specimen types has been assessed by the performing laboratory. The performance characteristics of this assay have been determined by [facility]. Current interpretive data was last revised on 22. Gretta Martinez MD LAB MICROBIOLOGY - GEN ERAL ORDERABLES Final Result AMYCPT [address] [facility] [place] [address] * CT Chest Abdomen Pelvis W Contrast (10/01/2024 3:12 PM CDT) Anatomical Region Laterality Modality Body N/A Computed Tomogra phy 10/01/2024 4:24 PM CDT Narrative 10/01/2024 4:42 PM CDT EXAM DESCRIPTION: CT CHEST ABDOMEN PELVIS W CONTRAST REASON FOR STUDY: Sepsis TECHNIQUE: CT scan of the chest, abdomen, and pelvis performed with intravenous and without oral contrast using helical scanning technique with dynamic intravenous contrast injection. Reconstructed coronal and sagittal MPR images reviewed. All images stored on PACS. Automated exposure control was used as a dose optimization technique for this examination. CONTRAST TYPE/DOSE: 100mL of IOVERSOL 350 MG IODINE/ML INTRAVENOUS SYRINGE injected via intravenous COMPARISON: CT abdomen pelvis 12/13/2023; CT abdomen pelvis 02/09/2017; CT chest 06/08/2010 FINDINGS: CHEST LUNGS: Respiratory motion degrades evaluation of the lungs. There is a trace left-sided pleural effusion. There is no pneumothorax. There is mild interlobular septal thickening with scattered subtle ground-glass opacities. No dense consolidation appreciated. Calcified pulmonary granulomas are present. Central airway is patent. MEDIASTINUM/JENNIFER: There is a small hiatal hernia. No mediastinal lymphadenopathy appreciated, allowing for motion artifact. HEART: The heart is enlarged. There is no pericardial effusion. Aortic valvular calcifications are present. There also coronary artery calcifications. VASCULATURE CHEST: There is a moderate amount of atherosclerotic plaque in the aorta without dissection or aneurysm. The main pulmonary artery is dilated measuring 3.2 cm. AXILLA: No adenopathy. CHEST WALL: No masses. No subcutaneous air. HARDWARE/LINES/TUBES: There is a right-sided Port-A-Cath with the tip in the right atrium. MUSCULOSKELETAL CHEST: There is no suspicious osseous lesion. There is a trace superior endplate compression fracture of the T6 vertebral body with about 10% vertebral body height loss. There is a T9 superior endplate compression fracture with about 40% vertebral body height loss. There is a similar-appearing T12 compression fracture with about 50% vertebral body height loss and retropulsion of the posterior endplate causing spinal canal stenosis, appearing unchanged. ABDOMEN/PELVIS LIVER: There is a cyst in the left mamadou liver. There are multiple subcentimeter low-attenuation lesions which are too small to be characterized. GALLBLADDER: No stones identified. No wall thickening or inflammatory changes. BILE DUCTS: No intrahepatic or extrahepatic ductal dilatation. SPLEEN: Enlarged measuring 14.6 cm in AP dimension. PANCREAS: No identified cystic or solid masses. No significant calcifications. No adjacent inflammation or peripancreatic fluid collections. Pancreatic duct not dilated. ADRENALS: 3.2 cm left adrenal gland nodule is unchanged in size since the most recent examination and in 2017 it demonstrated characteristics of an adenoma. KIDNEYS/URINARY TRACT: No identified significant cystic or solid masses. No visualized stones. No hydronephrosis or hydroureter. Symmetric enhancement. The urinary bladder is mildly dilated. Recommend correlation for bladder outlet obstruction. GI: There is a small hiatal hernia. The stomach is decompressed. There are no dilated or thick-walled loops of bowel appreciated. There is no sign of appendicitis. A rectal anastomosis is noted. There is colonic diverticulosis. There is trace residual stranding along the lateral aspect of the upper descending colon which may represent chronic scarring from previous diverticulitis. There is a naejggqc-az-grkoj amount of stool throughout the colon. PERITONEUM: No ascites or free air. RETROPERITONEUM: No mass or adenopathy. REPRODUCTIVE: The uterus is not visualized. VASCULATURE ABDOMEN: There is a large amount of calcified atherosclerotic plaque in the aorta and iliac vessels without aneurysm. MUSCULOSKELETAL ABDOMEN PELVIS: There are no suspicious osseous lesions. There is unchanged grade 1 anterolisthesis of L4 on L5. OTHER: There is pelvic floor prolapse. There is a small fat containing umbilical hernia. IMPRESSION: 1. Respiratory motion degrades evaluation of the lungs. There are opacities which may represent mild pulmonary edema versus atypical pneumonia. There is also a trace left-sided pleural effusion. 2. Cardiomegaly and dilated main pulmonary artery, which can be seen in the setting of pulmonary hypertension. 3. Mildly dilated urinary bladder. Recommend correlation for bladder outlet obstruction. 4. Lrsqyyxi-hr-gyote amount of stool throughout the colon. Recommend correlation for constipation. 5. Unchanged T12 compression fracture with retropulsion of the posterior endplate causing spinal canal stenosis. Additional compression fractures as discussed above. 6. Additional findings as above. THIS IS AN ELECTRONICALLY VERIFIED FINAL REPORT 10/01/2024 4:42 PM - Electronically signed by Tristian Apple M.D. AM: AM Report ID: [id number] [place] Location: [id number] Procedure Note Tristian Apple MD - 10/01/2024 EXAM DESCRIPTION: CT CHEST ABDOMEN PELVIS W CONTRAST REASON FOR STUDY: Sepsis TECHNIQUE: CT scan of the chest, abdomen, and pelvis performed with intravenous and without oral contrast using helical scanning techniquewith dynamic intravenous contrast injection. Reconstructed coronal and sagittalMPR images reviewed. All images stored on PACS. Automated exposure control was used as a dose optimization technique for this examination. CONTRAST TYPE/DOSE: 100mL of IOVERSOL 350 MG IODINE/ML INTRAVENOUS SYRINGE injected via intravenous COMPARISON: CT abdomen pelvis 12/13/2023; CT abdomen pelvis 02/09/2017; CT chest 06/08/2010 FINDINGS: CHEST LUNGS: Respiratory motion degrades evaluation of the lungs. There is a trace left-sided pleural effusion. There is no pneumothorax. There ismild interlobular septal thickening with scattered subtle ground-glassopacities. No dense consolidation appreciated. Calcified pulmonary granulomas are present. Central airway is patent. MEDIASTINUM/JENNIFER: There is a small hiatal hernia. No mediastinal lymphadenopathy appreciated, allowing for motion artifact. HEART: The heart is enlarged. There is no pericardial effusion. Aortic valvular calcifications are present. There also coronary artery calcifications. VASCULATURE CHEST: There is a moderate amount of atherosclerotic plaquein the aorta without dissection or aneurysm. The main pulmonary artery is dilated measuring 3.2 cm. AXILLA: No adenopathy. CHEST WALL: No masses. No subcutaneous air. HARDWARE/LINES/TUBES: There is a right-sided Port-A-Cath with the tip inthe right atrium. MUSCULOSKELETAL CHEST: There is no suspicious osseous lesion. There cheryl trace superior endplate compression fracture of the T6 vertebral body with about 10% vertebral body height loss. There is a T9 superior endplate compression fracture with about 40% vertebral body height loss. There cheryl similar-appearing T12 compression fracture with about 50% vertebral body height loss and retropulsion of the posterior endplate causing spinalcanal stenosis, appearing unchanged. ABDOMEN/PELVIS LIVER: There is a cyst in the left mamadou liver. There are multiple subcentimeter low-attenuation lesions which are too small to becharacterized. GALLBLADDER: No stones identified. No wall thickening or inflammatory changes. BILE DUCTS: No intrahepatic or extrahepatic ductal dilatation. SPLEEN: Enlarged measuring 14.6 cm in AP dimension. PANCREAS: No identified cystic or solid masses. No significant calcifications. No adjacent inflammation or peripancreatic fluidcollections. Pancreatic duct not dilated. ADRENALS: 3.2 cm left adrenal gland nodule is unchanged in size sincethe most recent examination and in 2017 it demonstrated characteristics of an adenoma. KIDNEYS/URINARY TRACT: No identified significant cystic or solid masses.No visualized stones. No hydronephrosis or hydroureter. Symmetricenhancement. The urinary bladder is mildly dilated. Recommend correlation for bladder outlet obstruction. GI: There is a small hiatal hernia. The stomach is decompressed. Thereare no dilated or thick-walled loops of bowel appreciated. There is no signof appendicitis. A rectal anastomosis is noted. There is colonic diverticulosis. There is trace residual stranding along the lateralaspect of the upper descending colon which may represent chronic scarring fromprevious diverticulitis. There is a ikolhmbe-od-gcmvr amount of stool throughoutthe colon. PERITONEUM: No ascites or free air. RETROPERITONEUM: No mass or adenopathy. REPRODUCTIVE: The uterus is not visualized. VASCULATURE ABDOMEN: There is a large amount of calcifiedatherosclerotic plaque in the aorta and iliac vessels without aneurysm. MUSCULOSKELETAL ABDOMEN PELVIS: There are no suspicious osseous lesions. There is unchanged grade 1 anterolisthesis of L4 on L5. OTHER: There is pelvic floor prolapse. There is a small fat containing umbilical hernia. IMPRESSION: 1. Respiratory motion degrades evaluation of the lungs.There are opacities which may represent mild pulmonary edema versus atypical pneumonia. There is also a trace left-sided pleural effusion. 2. Cardiomegaly and dilated main pulmonary artery, which can be seen inthe setting of pulmonary hypertension. 3. Mildly dilated urinary bladder. Recommend correlation for bladderoutlet obstruction. 4. Krjemzfl-bm-odasr amount of stool throughout the colon. Recommend correlation for constipation. 5. Unchanged T12 compression fracture with retropulsion of the posterior endplate causing spinal canal stenosis. Additional compression fracturesas discussed above. 6. Additional findings as above. THIS IS AN ELECTRONICALLY VERIFIED FINAL REPORT 10/01/2024 4:42 PM - Electronically signed by Tristian Apple M.D. AM: AM Report ID: [id number] Reading Location: [id number] Juan A Rios MD IMG CT PROCEDURES Final Result * Prepare RBC: 1 Units (10/01/2024 2:40 PM CDT) Units requested 1 Comment:Testing performed by : [address] [address] Units requested Ready SABRA Comment:Testing performed by : [address] [address] Unit Number [id number] Product code [id number] [facility] Blood Expiration Date [facility] Product Blood Type (for scanning) 5100 [facility] Product Blood Type OPOS [facility] Dispense Status DISPENSED [facility] Blood 10/01/2024 2:40 PM CDT 10/01/2024 2:39 PM CDT Lisette Loera NP BLOOD BANK PRODUCT ORDERABLES Final Result [facility] [address] [facility] [place] [address] * (ABNORMAL) Urinalysis reflex to microscopic and culture Urine (10/01/2024 2:02 PM CDT) Color, ur Yellow Yellow Comment:Testing performed by : [address] [address] Clarity, ur Clear Clear SABRA Comment:Testing performed by : [address] [address] Specific gravity, ur 1.014 1.003 - 1.030 SABRA Comment:Testing performed by : [address] [address] pH, urine 6.5 SABRA Comment: Interpretive Data U rine pH is affected by diet, medications, systemic acid-base disturbances, and renal tubular function. pH may affect urinary stone formation. For example, urine pH below 6.0 may help reduce the tendency for calcium phosphate stones and pH greater than 6.0 may reduce the tendency for uric acid stone formation. Source: [facility] [employer] Current Interpretive Data was last revised on 2017 Testing performed by: [facility], [address] [place] [address], [place]., [address] Protein, ur ql Negative Negative SABRA Comment:Testing performed by : [address], [place]., [address] Glucose, ur ql Negative Negative SABRA Comment:Testing performed by : [address], [place]., [address] Ketones, ur Negative Negative SABRA Comment:Testing performed by : [address], [place]., [address] Bilirubin, ur Negative Negative SABRA Comment:Testing performed by : [address], [place]., [address] Blood, ur Negative Negative SABRA Comment:Testing performed by : [address], [place]., [address] Urobilinogen, ur 2.0(A) <2.0 mg/dL SABRA Comment:Testing performed by : [address], [place]., [address] Nitrite, ur Negative Negative SABRA Comment:Testing performed by : [address], [place]., [address] Leukocyte esterase, ur Negative Negative SABRA Comment:Testing performed by : [address], [place]., [address] UA reflex comment Reflex conditions for microscopic UA and culture not met. SABRA Comment:Testing performed by : [address], [place]., [address] Urine 10/01/2024 2:02 PM CDT 10/01/2024 2:07 PM CDT us Juan A Rios MD LAB MICROBIOLOGY - GENERAL ORDERABLES Final Result SABRA PARKS [address] [facility] Department of Laboratories [place], [place] [id number] * (ABNORMAL) Pro B-type natriuretic peptide (10/01/2024 12:37 PM CDT) NT-proBNP 1,376(H) <=450 pg/mL Comment: Interpretive Comments: A. Dyspnea in Acute Care Setting All Ages: < 300 pg/ml, acute heart failure unlikely. < 50 yrs: 300 - 450 pg/ml, further investigation warranted. > 450 pg/ml, acute heart failure likely. 50 - 74 yrs: 300 - 900 pg/ml, further investigation warranted. > 900 pg/ml, acute heart failure likely . > or = 75 yrs: 450 - 1800 pg/ml, further investigation warranted. > 1800 pg/ml, acute heart failure likely. B. Non-acute Setting < 75 yrs < 125 pg/ml, rules out heart failure. > or = 125 pg/ml, further investigation warranted. > or = 75 yrs < 450 pg/ml, rules out heart failure. > or = 450 pg/ml, further investigation warranted. - Knowledge of each individual patient's NT-proBNP range may be more useful than using similar cut-points for every patient. Please note that marked elevations in NT-proBNP levels may be observed in state other than Left Ventricular Congestive Failure, including: acute coronary syndromes, right heart strain/failure (including pulmonary embolism and cor pulmonale), critical illness, renal failure, as well as advanced age. - References: 1. Jocelin LEVINE et.al. Eur Heart J. 2006:27:330-337. 2. Thomas RW, Pierce AM. J. AM Omar Cardiol: Cardiovasc Imag. 2009;2: 216- 225. Interpretive Data Last Revised Date: 2017. Testing performed by: [facility], [address] [place] [address]., [address] Blood 10/01/2024 12:3 7 PM CDT 10/01/2024 12:41 PM CDT us Gretta Martinez MD LAB BLOOD ORDERABLES F inal Result SABRA [address] [facility] Department [place] [address] * eGFR (10/01/2024 5:22 AM CDT) eGFR >90 >=60 mL/min/1. 73 [...] was last reviewed 2021. Testing performed by: [address] [address] Blood 10/01/2024 5:22 AM CDT 10/01/2024 6:07 AM CDT us Laurel Desir MD LAB BLOOD ORDERABLES Final Res ult SABRA [address] [facility] Department [place] [address] * (ABNORMAL) Differential, auto (10/01/2024 5:22 AM CDT) Neutrophil abs 0.00(C) 1.50 - 6.50 K/cumm Comment: Critical value called within last 72 hrs Testing performed by: [address] [address] Imm gran abs 0.01 0.00 - 0.10 K/cumm SABRA PARKS Comment:Testing performed by : [address] [address] Lymphocyte abs 0.25(L) 0.80 - 3.30 K/cumm SABRA Comment:Testing performed by : [address] [address] Monocyte abs 0.01(L) 0.20 - 0.80 K/cumm SABRA Comment:Testing performed by : [address] [address] Eosinophil abs 0.00 0.00 - 0.50 K/cumm SABRA Comment:Testing performed by : [address] [address] Basophil abs 0.00 0.00 - 0.10 K/cumm [facility] Comment:Testing performed by : [address] [address] Neutrophil pct 0.0 % [facility] Comment: Differential consistent with previous result. Differential consistent with previous result. Interpretive Data Percent cell count reference ranges are not reported, since discordance with absolute values may lead to misinterpretation of CBC data. Current Interpretive Data was last revised on 2017. Testing performed by: [address] [address] Imm gran pct 3.7 % [facility] Comment: Interpretive Data Percent cell count reference ranges are not reported, since discordance with absolute values may lead to misinterpretation of CBC data. Current Interpretive Data was last revised on 2017. Testing performed by: [address] [address] Lymphocyte pct 92.6 % [facility] Comment: Interpretive Data Percent cell count reference ranges are not reported, since discordance with absolute values may lead to misinterpretation of CBC data. Current Interpretive Data was last revised on 2017. Testing performed by: [address] [address] Monocyte pct 3.7 % [facility] Comment: Interpretive Data Percent cell count reference ranges are not reported, since discordance with absolute values may lead to misinterpretation of CBC data. Current Interpretive Data was last revised on 2017. Testing performed by: [address] [address] Eosinophil pct 0.0 % [facility] Comment: Interpretive Data Percent cell count reference ranges are not reported, since discordance with absolute values may lead to misinterpretation of CBC data. Current Interpretive Data was last revised on 2017. Testing performed by: [address] [address] Basophil pct 0.0 % SABRA Comment: Interpretive Data Percent cell count reference ranges are not reported, since discordance with absolute values may lead to misinterpretation of CBC data. Current Interpretive Data was last revised on 2017. Testing performed by: [address] [address] Blood 10/01/2024 5:22 AM CDT 10/01/2024 6:07 AM CDT us Laurel Desir MD LAB BLOOD ORDERABLES Final Res ult SABRA [address] [facility] Department of Laboratories [place], [place] [id number] * (ABNORMAL) CBC with auto differential (10/01/2024 5:22 AM CDT) WBC 0.27(C) 3.80 - 9.90 K/cumm Comment: Critical value called within last 72 hrs Testing performed by: [address] [address] Hgb 7.1(L) 11.9 - 15.5 g/dL SABRA Comment:Testing performed by : [address] [address] Hct 21.2(L) 35.6 - 45.5 % SABRA Comment:Testing performed by : [address] [address] Plt 54(L) 150 - 400 K/cumm SABRA Comment:Testing performed by : [address] [address] MPV 11.8 9.1 - 12.3 fL SABRA PARKS Comment:Testing performed by : [address] [address] RBC 2.26(L) 3.90 - 5.20 M/cumm SABRA PARKS Comment:Testing performed by : [address] [address] MCV 93.8 81.3 - 96.4 fL SABRA PARKS Comment:Testing performed by : [address], [address] MCH 31.4 27.1 - 33.3 pg SABRA Comment:Testing performed by : [address], [address] MCHC 33.5 32.3 - 35.7 g/dL SABRA Comment:Testing performed by : [address], [address] RDW CV 15.8(H) 11.1 - 14.9 % SABRA Comment:Testing performed by : [address], [address] RDW SD 53.4(H) 35.7 - 48.1 fL SABRA Comment:Testing performed by : [address], [address] NRBC abs 0.00 0.00 - 0.01 K/cumm SABRA Comment:Testing performed by : [address], [address] Blood 10/01/2024 5:22 AM CDT 10/01/2024 6:07 AM CDT us Laurel Desir MD LAB BLOOD ORDERABLES Final Res ult Performing Organization Address [facility] Co de Phone Number [place] [address] [facility] Department [place] [address] * (ABNORMAL) Lactate dehydrogenase (LD) (10/01/2024 5:22 AM CDT) Lactate dehydrogenase (LDH) 378(H) 100 - 250 Units/L Comment:Testing performed by : [address], [address] Blood 10/01/2024 5:22 AM CDT 10/01/2024 6:07 AM CDT us Juan A Rios MD LAB BLOOD ORDERABL ES Final Result Performing Organization Address City/[facility]/ZIP Co de Phone Number SABRA [address] [facility] Department [place] [address] * (ABNORMAL) Basic metabolic panel (10/01/2024 5:22 AM CDT) Sodium 141 135 - 145 mmol/L Comment:Testing performed by : [facility], [address] [place] [address], [place]., [address] Potassium, pl 3.5 3.3 - 4.9 mmol/L SABRA Comment:Testing performed by : [address], [place]., [address] Chloride 103 97 - 110 mmol/L SABRA Comment:Testing performed by : [address], [place]., [address] CO2 31 22 - 32 mmol/L SABRA Comment:Testing performed by : [address], [place]., [address] Anion gap 7 2 - 15 mmol/L SABRA Comment:Testing performed by : [address] [address] BUN 8 6 - 25 mg/dL SABRA Comment:Testing performed by : [address], [place]., [address] Creatinine 0.43(L) 0.60 - 1.10 mg/dL SABRA Comment:Testing performed by : [address] [address] Glucose 121 70 - 199 mg/dL SABRA Comment: Interpretive Data Fasting glucose >/= 126 [...] was last revised 2022. Testing performed by: [address], [place]., [address] Calcium 7.6(L) 8.5 - 10.3 mg/dL SABRA PARKS Comment:Testing performed by : [facility], [address] [place] [address]., [address] Blood 10/01/2024 5:22 AM CDT 10/01/2024 6:07 AM CDT us Laurel Desir MD LAB BLOOD ORDERABLES Final Res ult SABRA KASEY [address] [facility] Department [place] [address] * TRANSTHORACIC ECHO (TTE) COMPLETE W DOPPLER/CF W CONTRAST (09/30/2024 2:00 PM CDT) Estimated EF 55% % CONS SCIMAGE Anatomical Region Laterality Modality Ultrasound 09/30/2024 1:33 PM CDT Narrative 10/03/2024 4:32 PM CDT Transthoracic Echocardiographic Report Patient Name: MEIR GARCIA : 1940 (84y 7m) Gender: F Study Date: 09/30/2024 01:33:45 PM Ht(Inch): 60 Wt(Lb): 147.99 BSA: 1.69 Inside Sales: Nargis Longoria RDCS Location: [place] [address] Order Provider: LAUREL DESIR Heart Rate: 88 BMI: 28.9 BP: 123 / 79 Ref Provider: LAUREL DESIR PROCEDURES: Echocardiographic Report: ([id number]) Transthoracic complete echo with contrast, 2D, spectral and tissue Doppler, color flow Doppler, M-mode. Contrast: A contrast injection of Definity was performed to improve assessment of LV function. Definity Lot Number: [id number]. INDICATIONS: Congestive heart failure and Heart Failure. FINDINGS: Left Ventricle: Normal left ventricular cavity size. Mild concentric left ventricular hypertrophy. The Ejection Fraction is visually estimated to be 55% %. Diastolic Function E to E' ratio is >15 suggesting a high pulmonary wedge pressure and LV diastolic dysfunction. Right Ventricle: Right Ventical not well visualized due to poor echo windows. Normal right ventricular systolic function. Left Atrium: Mildly dilated left atrium. Right Atrium: Mildly dilated right atrium. Atrial Septum: The interatrial septum is normal in appearance. Mitral Valve: Mitral valve is not well visualized due to poor echo windows. There is mild mitral valve regurgitation. Aortic Valve: Trileaflet aortic valve. Trace aortic valve regurgitation. Tricuspid Valve: Tricuspid valve is not well visualized due to poor echo windows. There is mild to moderate tricuspid regurgitation. Estimated RVSP 46 mmHg. Pulmonic Valve: Pulmonic Valve not well visualized due to poor echo windows. Pericardium: No pericardial effusion. Aorta: Aorta not well visualized. IVC: IVC Not well visualized due to poor echo windows. RA pressure could not be assessed as the IVC is not well visualized. CONCLUSIONS: 1. Technically Difficult Study. 2. The Ejection Fraction is visually estimated to be 55% %. 3. Right Ventical not well visualized due to poor echo windows. Normal right ventricular systolic function. 4. Mildly dilated left atrium. 5. Mildly dilated right atrium. 6. Mitral valve is not well visualized due to poor echo windows. There is mild mitral valve regurgitation. 7. Trace aortic valve regurgitation. 8. Pulmonic Valve not well visualized due to poor echo windows. 9. Tricuspid valve is not well visualized due to poor echo windows. There is mild to moderate tricuspid regurgitation. Estimated RVSP 46 mmHg. 10. No pericardial effusion. 11. Aorta not well visualized. 12. IVC Not well visualized due to poor echo windows. RA pressure could not be assessed as the IVC is not well visualized. MEASUREMENTS: 2D/MM Value Range Doppler Value LVIDd 2D 4.90 cm [ 3.50 - 5.70 ] AV Peak Victoriano 1.29 m/s LVIDs 2D 3.48 cm [ 3.10 - 4.60 ] AV Peak PG 6.66 mmHg IVSd 2D 1.40 cm [ 0.60 - 1.20 ] AV Mean PG 4.00 mmHg LVPWd 2D 1.25 cm [ 0.60 - 1.10 ] AV VTI 24.70 cm LV Thickness Ratio 1.12 LVOT Peak Victoriano 1.02 m/s LV Mass 2D 264.55 g LVOT Peak PG 4.16 mmHg LV Mass Index 2D 156.54 g/m2 LVOT Mean PG 2.00 mmHg RWT 0.51 LVOT VTI 17.60 cm Visually Estimated EF 55% % LVOT Diam 2.10 cm LA Dimension 2D 3.60 cm [ 1.90 - 4.00 ] SV LVOT 61.00 cm3 TAPSE 2.14 cm [ 1.71 - 5.00 ] ISIDORO VTI 2.47 cm2 AoR Diam 2D 3.40 cm [ 2.00 - 3.70 ] ISIDORO Vmax 2.74 cm2 Ao Root Index 2.01 cm/m2 [ 1.00 - 2.00 ] LVOT/AV VTI 0.71 - Dimensionless index (DVI) MV E Peak Victoriano 1.20 m/s MV A Peak Victoriano 0.85 m/s MV E/A 1.40 ratio MV Decel Time 153.00 msec Med E` Victoriano 0.08 m/s Lat E` Victoriano 0.10 m/s Average E/E` 1333.33 TV Peak Victoriano 0.84 m/s TV Peak PG 2.82 mmHg RV S` 0.10 m/s TR Peak Victoriano 3.54 m/s TR Peak PG 50.1 mmHg PV Peak Victoriano 0.89 m/s PV Peak PG 3.17 mmHg - ATTESTATION: I have reviewed and interpreted the pertinent images and measurements of this study. I attest to the conclusions in the final report that is provided above. DISCLAIMER: The study images and the final report will be retained in the patient chart by the Echo Laboratory for the legally required time period. This chart constitutes the legal record of any testing performed. Electronically Signed By: Jonathan Boudreaux MD 10/03/2024 4:31:49 PM CDT Procedure Note Jonathan Boudreaux MD - 10/03/2024 Transthoracic Echocardiographic Report Patient Name: MEIR GARCIA : 1940 (84y 7m) Gender: F Study Date: 09/30/2024 01:33:45 PM Ht(Inch): 60 Wt(Lb): 147.99 BSA: 1.69 Inside Sales: Nargis Longoria [facility] Location: [place] [address] Order Provider:LAUREL DESIR Heart Rate: 88 BMI: 28.9 BP: 123 / 79 Ref Provider: MEDAVARAMLAUREL PROCEDURES: Echocardiographic Report: ([id number]) Transthoracic complete echo withcontrast, 2D, spectral and tissue Doppler, color flow Doppler, M-mode. Contrast: A contrast injection of Definity was performed to improveassessment of LV function. Definity Lot Number: [id number]. INDICATIONS: Congestive heart failure and Heart Failure. FINDINGS: Left Ventricle: Normal left ventricular cavity size. Mild concentric leftventricular hypertrophy. The Ejection Fraction is visually estimated to be 55% %.Diastolic Function E to E' ratio is >15 suggesting a high pulmonary wedge pressure and LVdiastolic dysfunction. Right Ventricle: Right Ventical not well visualized due to poor echowindows. Normal right ventricular systolic function. Left Atrium: Mildly dilated left atrium. Right Atrium: Mildly dilated right atrium. Atrial Septum: The interatrial septum is normal in appearance. Mitral Valve: Mitral valve is not well visualized due to poor echowindows. There is mild mitral valve regurgitation. Aortic Valve: Trileaflet aortic valve. Trace aortic valve regurgitation. Tricuspid Valve: Tricuspid valve is not well visualized due to poor echowindows. There is mild to moderate tricuspid regurgitation. Estimated RVSP 46 mmHg. Pulmonic Valve: Pulmonic Valve not well visualized due to poor echowindows. Pericardium: No pericardial effusion. Aorta: Aorta not well visualized. IVC: IVC Not well visualized due to poor echo windows. RA pressure couldnot be assessed as the IVC is not well visualized. CONCLUSIONS: 1. Technically Difficult Study. 2. The Ejection Fraction is visually estimated to be 55% %. 3. Right Ventical not well visualized due to poor echo windows. Normalright ventricular systolic function. 4. Mildly dilated left atrium. 5. Mildly dilated right atrium. 6. Mitral valve is not well visualized due to poor echo windows. There ismild mitral valve regurgitation. 7. Trace aortic valve regurgitation. 8. Pulmonic Valve not well visualized due to poor echo windows. 9. Tricuspid valve is not well visualized due to poor echo windows. Thereis mild to moderate tricuspid regurgitation. Estimated RVSP 46 mmHg. 10. No pericardial effusion. 11. Aorta not well visualized. 12. IVC Not well visualized due to poor echo windows. RA pressure couldnot be assessed as the IVC is not well visualized. MEASUREMENTS: 2D/MM Value Range DopplerValue LVIDd 2D 4.90 cm [ 3.50 - 5.70 ] AV Peak Vel1.29 m/s LVIDs 2D 3.48 cm [ 3.10 - 4.60 ] AV Peak PG6.66 mmHg IVSd 2D 1.40 cm [ 0.60 - 1.20 ] AV Mean PG4.00 mmHg LVPWd 2D 1.25 cm [ 0.60 - 1.10 ] AV VTI24.70 cm LV Thickness Ratio 1.12 LVOT Peak Vel1.02 m/s LV Mass 2D 264.55 g LVOT Peak PG4.16 mmHg LV Mass Index 2D 156.54 g/m2 LVOT Mean PG2.00 mmHg RWT 0.51 LVOT VTI17.60 cm Visually Estimated EF 55% % LVOT Diam2.10 cm LA Dimension 2D 3.60 cm [ 1.90 - 4.00 ] SV LVOT61.00 cm3 TAPSE 2.14 cm [ 1.71 - 5.00 ] ISIDORO VTI2.47 cm2 AoR Diam 2D 3.40 cm [ 2.00 - 3.70 ] ISIDORO Vmax2.74 cm2 Ao Root Index 2.01 cm/m2 [ 1.00 - 2.00 ] LVOT/AV VTI0.71 - Dimensionless index (DVI) MV E Peak Victoriano 1.20 m/s MV A Peak Victoriano 0.85 m/s MV E/A 1.40 ratio MV Decel Time 153.00 msec Med E` Vicotriano 0.08 m/s Lat E` Victoriano 0.10 m/s Average E/E` 1333.33 TV Peak Victoriano 0.84 m/s TV Peak PG 2.82 mmHg RV S` 0.10 m/s TR Peak Victoriano 3.54 m/s TR Peak PG 50.1 mmHg PV Peak Victoriano 0.89 m/s PV Peak PG 3.17 mmHg - ATTESTATION: I have reviewed and interpreted the pertinent images and measurements ofthis study. I attest to the conclusions in the final report that is provided above. DISCLAIMER: The study images and the final report will be retained in the patientchart by the Echo Laboratory for the legally required time period. This chart constitutesthe legal record of any testing performed. Electronically Signed By: Jonathan Boudreaux MD 10/03/2024 4:31:49 PM CDT us Laurel Desir MD CV ECHO PROCEDURES Final Resul t * Immature platelet fraction (09/30/2024 6:44 AM CDT) Pathologist [facility] [place] IPF 4.3 1.6 - 10.1 % Comment:Testing performed by : [facility], [address] [place] [address]., [address] Blood 09/30/2024 6:44 AM CDT 09/30/2024 6:47 AM CDT us Laurel Desir MD LAB BLOOD ORDERABLES Final Res ult SABRA [address] [facility] [place] [address] * (ABNORMAL) Blood smear review (09/30/2024 6:44 AM CDT) RBC morphology Consistent with RBC Indicies Comment:Testing performed by : [facility], [address] [place] [address]., [address] Platelet estimate Decreased(A) SABRA PARKS Comment:Testing performed by : [facility], [address] [place] [address]., [id number] Blood 09/30/2024 6:44 AM CDT 09/30/2024 6:47 AM CDT us Laurel Desir MD LAB BLOOD ORDERABLES Final Res ult Performing Organization Address [facility] de Phone Number SABRA [facility] [place] [address] * eGFR (09/30/2024 6:44 AM CDT) Pathologist [facility] [place] eGFR >90 >=60 mL/min/1. 73 m2 Comment: [...] was last reviewed 2021. Testing performed by: [facility], [address] [place] [address]., [address] Blood 09/30/2024 6:44 AM CDT 09/30/2024 6:47 AM CDT us Laurel Desir MD LAB BLOOD ORDERABLES Final Res ult SABRA 4500 [facility] [place] [address] * (ABNORMAL) Differential, auto (09/30/2024 6:44 AM CDT) Neutrophil abs 0.02(C) 1.50 - 6.50 K/cumm Comment: Critical value called within last 72 hrs Testing performed by: [address] [address] Imm gran abs 0.00 0.00 - 0.10 K/cumm SABRA Comment:Testing performed by : [address] [address] Lymphocyte abs 0.36(L) 0.80 - 3.30 K/cumm SABRA Comment:Testing performed by : [address] [address] Monocyte abs 0.00(L) 0.20 - 0.80 K/cumm SABRA Comment:Testing performed by : [address] [address] Eosinophil abs 0.00 0.00 - 0.50 K/cumm SABRA Comment:Testing performed by : [address] [address] Basophil abs 0.00 0.00 - 0.10 K/cumm SABRA Comment:Testing performed by : [address] [address] Neutrophil pct 5.3 % SABRA Comment: Differential consistent with previous result. Differential consistent with previous result. Interpretive Data Percent cell count reference ranges are not reported, since discordance with absolute values may lead to misinterpretation of CBC data. Current Interpretive Data was last revised on 2017. Testing performed by: [address] [address] Imm gran pct 0.0 % SABRA Comment: Interpretive Data Percent cell count reference ranges are not reported, since discordance with absolute values may lead to misinterpretation of CBC data. Current Interpretive Data was last revised on 2017. Testing performed by: [address] [address] Lymphocyte pct 94.7 % [facility] Comment: Interpretive Data Percent cell count reference ranges are not reported, since discordance with absolute values may lead to misinterpretation of CBC data. Current Interpretive Data was last revised on 2017. Testing performed by: [address] [address] Monocyte pct 0.0 % [facility] Comment: Interpretive Data Percent cell count reference ranges are not reported, since discordance with absolute values may lead to misinterpretation of CBC data. Current Interpretive Data was last revised on 2017. Testing performed by: [address] [address] Eosinophil pct 0.0 % [facility] Comment: Interpretive Data Percent cell count reference ranges are not reported, since discordance with absolute values may lead to misinterpretation of CBC data. Current Interpretive Data was last revised on 2017. Testing performed by: [address] [address] Basophil pct 0.0 % [facility] Comment: Interpretive Data Percent cell count reference ranges are not reported, since discordance with absolute values may lead to misinterpretation of CBC data. Current Interpretive Data was last revised on 2017. Testing performed by: [address] [address] Blood 09/30/2024 6:44 AM CDT 09/30/2024 6:47 AM CDT us Laurel Desir MD LAB BLOOD ORDERABLES Final Res ult SABRA 8457 [facility] [place] [address] * (ABNORMAL) CBC with auto differential (09/30/2024 6:44 AM CDT) WBC 0.38(C) 3.80 - 9.90 K/cumm Comment: Critical value called within last 72 hrs Testing performed by: [address] [address] Hgb 7.5(L) 11.9 - 15.5 g/dL SABRA Comment:Testing performed by : [address] [address] Hct 22.0(L) 35.6 - 45.5 % SABRA Comment:Testing performed by : [address] [address] Plt 49(C) 150 - 400 K/cumm SABRA Comment: Platelet count confirmed by additional testing. Critical platelet count threshold determined by patient location: Outpatient:<50 K/cumm , Inpatient adults:<20 K/cumm , Inpatient pediatric:<25 K/cumm, BMT service:<10 K/cumm Testing performed by: [address] [address] MPV 10.4 9.1 - 12.3 fL SABRA Comment:Testing performed by : [address] [address] RBC 2.39(L) 3.90 - 5.20 M/cumm SABRA Comment:Testing performed by : [address] [address] MCV 92.1 81.3 - 96.4 fL SABRA Comment:Testing performed by : [address] [address]96 MCH 31.4 27.1 - 33.3 pg SABRA Comment:Testing performed by : [address] [address] MCHC 34.1 32.3 - 35.7 g/dL SABRA Comment:Testing performed by : [address] [address] RDW CV 15.6(H) 11.1 - 14.9 % SABRA Comment:Testing performed by : [address] [address] RDW SD 51.9(H) 35.7 - 48.1 fL SABRA Comment:Testing performed by : [address] [address] NRBC abs 0.00 0.00 - 0.01 K/cumm SABRA Comment:Testing performed by : [address] [address] Blood 09/30/2024 6:44 AM CDT 09/30/2024 6:47 AM CDT us Laurel Desir MD LAB BLOOD ORDERABLES Edited Re sult - Final [facility] 45[address] [facility] [place] [address] * (ABNORMAL) Basic metabolic panel (09/30/2024 6:44 AM CDT) Sodium 139 135 - 145 mmol/L Comment:Testing performed by : [address] [address] Potassium, pl 3.7 3.3 - 4.9 mmol/L SABRA Comment:Testing performed by : [address] [address] Chloride 103 97 - 110 mmol/L SABRA Comment:Testing performed by : [address] [address] CO2 30 22 - 32 mmol/L SABRA Comment:Testing performed by : [address] [address] Anion gap 6 2 - 15 mmol/L SABRA Comment:Testing performed by : [address] [address] BUN 9 6 - 25 mg/dL SABRA Comment:Testing performed by : [address] [address] Creatinine 0.49(L) 0.60 - 1.10 mg/dL SABRA Comment:Testing performed by : [address] [address] Glucose 128 70 - 199 mg/dL SABRA Comment: Interpretive Data Fasting glucose >/= 126 [...] was last revised 2022. Testing performed by: [address] [address] Calcium 7.8(L) 8.5 - 10.3 mg/dL SABRA Comment:Testing performed by : [address] [address] Blood 09/30/2024 6:44 AM CDT 09/30/2024 6:47 AM CDT us Laurel Desir MD LAB BLOOD ORDERABLES Final Res ult Performing Organization Address [facility] Co de Phone Number SABRA [address] Department [place] [employer] [place] [address] * (ABNORMAL) Troponin T high-sensitivity 6-hour (09/29/2024 2:57 PM CDT) Trop T hs 62(H) <=14 ng/L Comment: Interpretive Data For further hscTnT resources including the diagnostic algorithm and an aid in interpretation, copy and paste this link: https://nrl.testcatalog.org/show/hsTrop Current Interpretive Data last revised 2020. Testing performed by: [address] [address] Trop T hs delta -2 ng/L SABRA Comment:Testing performed by : [address] [address] Trop T hs interp Insignificant SABRA Comment:Testing performed by : [address] [address] Blood 09/29/2024 2:57 PM CDT 09/29/2024 3:09 PM CDT us Lee Gordon DO LAB BLOOD ORDERABLES Final Resul t Performing Organization Address [facility]/ZIP Co de Phone Number [place] [address] [place] [address] * (ABNORMAL) Troponin T high-sensitivity 4-hour (09/29/2024 12:38 PM CDT) Trop T hs 67(H) <=14 ng/L Comment: Interpretive Data For further hscTnT resources including the diagnostic algorithm and an aid in interpretation, copy and paste this link: https://nrl.SnapMD.org/show/hsTrop Current Interpretive Data last revised 2020. Testing performed by: [address] [address] Trop T hs delta 3 ng/L SABRA Comment:Testing performed by : [address] [address] Trop T hs interp Insignificant SABRA Comment:Testing performed by : [address] [address] Blood 09/29/2024 12:3 8 PM CDT 09/29/2024 12:43 PM CDT Lee Gordon DO LAB BLOOD ORDERABLES Final Resul t SABRA [address] [place] [address] * (ABNORMAL) Troponin T high-sensitivity 2-hour (09/29/2024 10:44 AM CDT) Trop T hs 65(H) <=14 ng/L Comment: Interpretive Data For further hscTnT resources including the diagnostic algorithm and an aid in interpretation, copy and paste this link: https://nrl.SnapMD.org/show/hsTrop Current Interpretive Data last revised 2020. Testing performed by: [address] [address] Trop T hs delta 1 ng/L SABRA Comment:Testing performed by : [address] [address] Trop T hs interp Insignificant SABRA Comment:Testing performed by : [address] [address] Blood 09/29/2024 10:4 4 AM CDT 09/29/2024 10:59 AM CDT Lee Gordon DO LAB BLOOD ORDERABLES Final Resul t Performing Organization Address [facility] Co de Phone Number SABRA [address] [place] [address] * (ABNORMAL) Troponin T high-sensitivity 6-hour (09/29/2024 8:11 AM CDT) Trop T hs 68(H) <=14 ng/L Comment: Interpretive Data For further hscTnT resources including the diagnostic algorithm and an aid in interpretation, copy and paste this link: https://nrl.testcatalog.org/show/hsTrop Current Interpretive Data last revised 2020. Testing performed by: [address] [address] Trop T hs delta See Comment ng/L SABRA Comment: Inappropriate collection time to report a delta. Testing performed by: [address] [address] Trop T hs pct delta See Comment % SABRA Comment: Inappropriate collection time to report a delta. Testing performed by: [address] [address] Trop T hs interp See Comment SABRA Comment: Inappropriate collection time to report a delta. Testing performed by: [address] [address] Blood 09/29/2024 8:11 AM CDT 09/29/2024 9:04 AM CDT us Philip Bran MD LAB BLOOD ORDERABLES Aylin l Result Performing Organization Address City/[facility]/ZIP Co de Phone Number SABRA [address] [place] [address] * (ABNORMAL) Troponin T high-sensitivity series (baseline, 2hr, 4hr, 6hr) (09/29/2024 8:11 AM CDT) Trop T hs 64(H) <=14 ng/L Comment: Interpretive Data For further hscTnT resources including the diagnostic algorithm and an aid in interpretation, copy and paste this link: https://nrl.testcatalog.org/show/hsTrop Current Interpretive Data last revised 2020. Testing performed by: [facility], [address] [place] [address]., [address] Blood 09/29/2024 8:11 AM CDT 09/29/2024 9:04 AM CDT us Lee Gordon DO LAB BLOOD ORDERABLES Final Resul t Performing Organization Address [facility] Co de Phone Number SABRA [address] [place] [address] * Blood smear review (09/29/2024 8:11 AM CDT) [facility] RBC morphology Consistent with RBC Indicies Comment:Testing performed by : [facility], [address] [place] [address]., [address] Platelet estimate Automated Count Confirmed SABRA Comment:Testing performed by : [facility], [address] [place] [address]., [address] Blood 09/29/2024 8:11 AM CDT 09/29/2024 9:04 AM CDT us Laurel Desir MD LAB BLOOD ORDERABLES Final Res ult Performing Organization Address [facility]/ZIP Co de Phone Number AMY[address] [place] [address] * eGFR (09/29/2024 8:11 AM CDT) Pathologist [facility] [place] eGFR >90 >=60 mL/min/1. 73 m2 Comment: [...] was last reviewed 2021. Testing performed by: [address] [address] Blood 09/29/2024 8:11 AM CDT 09/29/2024 9:04 AM CDT Lee Gordon DO LAB BLOOD ORDERABLES Final Resul t SABRA [address] [facility] Department of Laboratories [place], [place] [id number] * (ABNORMAL) Differential, auto (09/29/2024 8:11 AM CDT) Neutrophil abs 0.02(C) 1.50 - 6.50 K/cumm Comment: Critical value called within last 72 hrs Testing performed by: [address] [address] Imm gran abs 0.00 0.00 - 0.10 K/cumm SABRA Comment:Testing performed by : [address] [address] Lymphocyte abs 0.29(L) 0.80 - 3.30 K/cumm SABRA Comment:Testing performed by : [address] [address] Monocyte abs 0.00(L) 0.20 - 0.80 K/cumm SABRA Comment:Testing performed by : [address] [address] Eosinophil abs 0.00 0.00 - 0.50 K/cumm [facility] Comment:Testing performed by : [address] [address] Basophil abs 0.00 0.00 - 0.10 K/cumm [facility] Comment:Testing performed by : [address] [address] Neutrophil pct 6.5 % [facility] Comment: Differential consistent with previous result. Interpretive Data Percent cell count reference ranges are not reported, since discordance with absolute values may lead to misinterpretation of CBC data. Current Interpretive Data was last revised on 2017. Testing performed by: [address] [address] Imm gran pct 0.0 % [facility] Comment: Interpretive Data Percent cell count reference ranges are not reported, since discordance with absolute values may lead to misinterpretation of CBC data. Current Interpretive Data was last revised on 2017. Testing performed by: [address] [address] Lymphocyte pct 93.5 % [facility] Comment: Interpretive Data Percent cell count reference ranges are not reported, since discordance with absolute values may lead to misinterpretation of CBC data. Current Interpretive Data was last revised on 2017. Testing performed by: [address] [address]1 Monocyte pct 0.0 % [facility] Comment: Interpretive Data Percent cell count reference ranges are not reported, since discordance with absolute values may lead to misinterpretation of CBC data. Current Interpretive Data was last revised on 2017. Testing performed by: [address] [address]67 Eosinophil pct 0.0 % [facility] Comment: Interpretive Data Percent cell count reference ranges are not reported, since discordance with absolute values may lead to misinterpretation of CBC data. Current Interpretive Data was last revised on 2017. Testing performed by: [address] [address] Basophil pct 0.0 % [facility] Comment: Interpretive Data Percent cell count reference ranges are not reported, since discordance with absolute values may lead to misinterpretation of CBC data. Current Interpretive Data was last revised on 2017. Testing performed by: [address] [address] Blood 09/29/2024 8:11 AM CDT 09/29/2024 9:04 AM CDT us Laurel Desir MD LAB BLOOD ORDERABLES Final Res ult SABRA 4[address] [facility] [place] [address] * (ABNORMAL) CBC with auto differential (09/29/2024 8:11 AM CDT) WBC 0.31(C) 3.80 - 9.90 K/cumm Comment: Critical value called within last 72 hrs Testing performed by: [address] [address] Hgb 7.5(L) 11.9 - 15.5 g/dL SABRA Comment:Testing performed by : [address] [address] Hct 21.6(L) 35.6 - 45.5 % SABRA Comment:Testing performed by : [address] [address]358 Plt 55(L) 150 - 400 K/cumm SABRA Comment:Testing performed by : [address] [address] MPV 10.8 9.1 - 12.3 fL SABRA Comment:Testing performed by : [address] [address]47[address] RBC 2.38(L) 3.90 - 5.20 M/cumm SABRA Comment:Testing performed by : [address] [address]52 MCV 90.8 81.3 - 96.4 fL SABRA PARKS Comment:Testing performed by : [address] [address]49 MCH 31.5 27.1 - 33.3 pg SABRA PARKS Comment:Testing performed by : [address] [address]32 MCHC 34.7 32.3 - 35.7 g/dL SABRA PARKS Comment:Testing performed by : [address] [address] RDW CV 15.5(H) 11.1 - 14.9 % SABRA PARKS Comment:Testing performed by : [address] [address] RDW SD 50.6(H) 35.7 - 48.1 fL SABRA Comment:Testing performed by : [address] [address] NRBC abs 0.00 0.00 - 0.01 K/cumm SABRA Comment:Testing performed by : [address] [address] Blood 09/29/2024 8:11 AM CDT 09/29/2024 9:04 AM CDT us Laurel Desir MD LAB BLOOD ORDERABLES Edited Re sult - Final Performing Organization Address City/[facility] Co de Phone Number [address] [place] [address] * Magnesium (09/29/2024 8:11 AM CDT) Pathologist [facility] [place] Magnesium 2.0 1.4 - 2.5 mg/dL Comment:Testing performed by : [address] [address] Blood 09/29/2024 8:11 AM CDT 09/29/2024 9:04 AM CDT us Lee Gordon DO LAB BLOOD ORDERABLES Final Resul t Performing Organization Address [facility] Co de Phone Number [address] [address] * (ABNORMAL) Basic metabolic panel (09/29/2024 8:11 AM CDT) Sodium 143 135 - 145 mmol/L Comment:Testing performed by : [facility], [address] [place] [address]., [address] Potassium, pl 3.2(L) 3.3 - 4.9 mmol/L SABRA Comment:Testing performed by : [address], [place]., [address] Chloride 106 97 - 110 mmol/L SABRA Comment:Testing performed by : [address], [place]., [address] CO2 27 22 - 32 mmol/L SABRA Comment:Testing performed by : [address], [place]., [address] Anion gap 10 2 - 15 mmol/L SABRA Comment:Testing performed by : [address], [place]., [address] BUN 11 6 - 25 mg/dL SABRA Comment:Testing performed by : [address], [place]., [address] Creatinine 0.51(L) 0.60 - 1.10 mg/dL [facility] Comment:Testing performed by : [address] [address] Glucose 129 70 - 199 mg/dL [facility] Comment: Interpretive Data Fasting glucose >/= 126 [...] was last revised 2022. Testing performed by: [address] [address] Calcium 7.1(L) 8.5 - 10.3 mg/dL SABRA Comment:Testing performed by : [address], [place]., [address] Blood 09/29/2024 8:11 AM CDT 09/29/2024 9:04 AM CDT us Lee Gordon DO LAB BLOOD ORDERABLES Final Resul t SABRA [address] [facility] [place] [address] * Transfuse RBC (09/29/2024 6:17 AM CDT) Blood us Laurel Desir MD BLOOD TRANSFUSION ORDERABLES F inal Result Performing Organization Address City/[facility]/ZIP Co de Phone Number SABRA [address] [address] * (ABNORMAL) Troponin T high-sensitivity 4-hour (09/29/2024 5:24 AM CDT) Trop T hs 65(H) <=14 ng/L Comment: Interpretive Data For further hscTnT resources including the diagnostic algorithm and an aid in interpretation, copy and paste this link: https://nrl.testcatalog.org/show/hsTrop Current Interpretive Data last revised 2020. Testing performed by: [address] [address] Trop T hs delta 29(C) ng/L SABRA Comment: Critical Result called to and read back by [id number], DATE: 2024-09-29 06:12:26 BY: [id number] Testing performed by: [address] [address] Trop T hs interp Significa nt(C) SABRA PARKS Comment: Critical Result called to and read back by [id number], DATE: 2024-09-29 06:12:26 BY: [id number] Testing performed by: [address] [address] Blood 09/29/2024 5:24 AM CDT 09/29/2024 5:30 AM CDT us Philip Bran MD LAB BLOOD ORDERABLES Aylin l Result Performing Organization Address [facility] de Phone Number AMY[address] [place] [address] * eGFR (09/29/2024 5:24 AM CDT) eGFR 90 >=60 mL/min/1. 73 [...] was last reviewed 2021. Testing performed by: [address] [address] Blood 09/29/2024 5:24 AM CDT 09/29/2024 5:28 AM CDT us Laurel Desir MD LAB BLOOD ORDERABLES Final Res ult Performing Organization Address [facility] Co de Phone Number [place] [phone] [facility] [employer] [address] * (ABNORMAL) Hepatic function panel (09/29/2024 5:24 AM CDT) Bilirubin, total 1.3(H) 0.1 - 1.2 mg/dL Comment:Testing performed by : [address] [address] Bilirubin, direct 0.6(H) 0.1 - 0.3 mg/dL SABRA Comment:Testing performed by : [address] [address] Protein, pl 6.1(L) 6.5 - 8.5 g/dL SABRA PARKS Comment:Testing performed by : [address] [address] Albumin 3.5 3.5 - 5.0 g/dL SABRA PARKS Comment:Testing performed by : [address] [address] Alk phos 40 40 - 130 Units/L SABRA Comment:Testing performed by : [address], [place]., [address] ALT 31 7 - 45 Units/L SABRA Comment:Testing performed by : [address] [address] AST 22 10 - 45 Units/L SABRA Comment:Testing performed by : [address] [address] Blood 09/29/2024 5:24 AM CDT 09/29/2024 5:28 AM CDT us Jackie Williamson MD LAB BLOOD ORDERABLES F inal Result SABRA [facility]8 [facility] Department of Laboratories [place], [place] [id number] * (ABNORMAL) Basic metabolic panel (09/29/2024 5:24 AM CDT) Sodium 139 135 - 145 mmol/L Comment:Testing performed by : [address] [address] Potassium, pl 3.3 3.3 - 4.9 mmol/L SABRA PARKS Comment:Testing performed by : [address] [address] Chloride 103 97 - 110 mmol/L SABRA PARKS Comment:Testing performed by : [address] [address] CO2 28 22 - 32 mmol/L SABRA PARKS Comment:Testing performed by : [address] [address] Anion gap 8 2 - 15 mmol/L SABRA Comment:Testing performed by : [address] [address] BUN 12 6 - 25 mg/dL SABRA Comment:Testing performed by : [address] [address] Creatinine 0.56(L) 0.60 - 1.10 mg/dL SABRA Comment:Testing performed by : [address] [address]48[address] Glucose 140 70 - 199 mg/dL SABRA Comment: Interpretive Data Fasting glucose >/= 126 [...] was last revised 2022. Testing performed by: [address] [address] Calcium 7.3(L) 8.5 - 10.3 mg/dL SABRA Comment:Testing performed by : [address] [address] Blood 09/29/2024 5:24 AM CDT 09/29/2024 5:28 AM CDT us Laurel Desir MD LAB BLOOD ORDERABLES Final Res ult SABRA 4791 [facility] [place] [address] * (ABNORMAL) Troponin T high-sensitivity 2-hour (09/29/2024 3:05 AM CDT) Trop T hs 73(H) <=14 ng/L Comment: Interpretive Data For further hscTnT resources including the diagnostic algorithm and an aid in interpretation, copy and paste this link: https://nrl.SnapMD.org/show/hsTrop Current Interpretive Data last revised 2020. Testing performed by: [address] [address] Trop T hs delta 37(C) ng/L SABRA Comment: Critical Result called to and read back by [id number], DATE: 2024-09-29 03:55:56 BY: [id number] Testing performed by: [address] [address] Trop T hs interp Significa nt(C) SABRA Comment: Critical Result called to and read back by [id number], DATE: 2024-09-29 03:55:56 BY: [email or web address] Testing performed by: [address] [address] Blood 09/29/2024 3:05 AM CDT 09/29/2024 3:14 AM CDT us Philip Bran MD LAB BLOOD ORDERABLES Aylin l Result SABRA 3792 [facility] [place] [address] * (ABNORMAL) Troponin T high-sensitivity series (baseline, 2hr, 4hr, 6hr) (09/29/2024 1:09 AM CDT) Trop T hs 36(H) <=14 ng/L Comment: Interpretive Data For further hscTnT resources including the diagnostic algorithm and an aid in interpretation, copy and paste this link: https://nrl.SnapMD.org/show/hsTrop Current Interpretive Data last revised 2020. Testing performed by: [address] [address] Blood 09/29/2024 1:09 AM CDT 09/29/2024 1:28 AM CDT us Philip Bran MD LAB BLOOD ORDERABLES Aylin l Result Performing Organization Address [facility] de Phone Number [address] [place] [address] * eGFR (09/29/2024 1:09 AM CDT) eGFR 90 >=60 mL/min/1. 73 [...] was last reviewed 2021. Testing performed by: [address] [address] Blood 09/29/2024 1:09 AM CDT 09/29/2024 1:28 AM CDT us Philip Bran MD LAB BLOOD ORDERABLES Aylin l Result Performing Organization Address [facility] Co de Phone Number [place] [phone] [facility] Department [place] [employer] [place] [address] * (ABNORMAL) Differential, auto (09/29/2024 1:09 AM CDT) Neutrophil abs 0.02(C) 1.50 - 6.50 K/cumm Comment: Critical value called within last 72 hrs Testing performed by: [address] [address] Imm gran abs 0.00 0.00 - 0.10 K/cumm [facility] Comment:Testing performed by : [address] [address] Lymphocyte abs 0.26(L) 0.80 - 3.30 K/cumm SABRA Comment:Testing performed by : [address] [address] Monocyte abs 0.00(L) 0.20 - 0.80 K/cumm SABRA Comment:Testing performed by : [address] [address] Eosinophil abs 0.00 0.00 - 0.50 K/cumm SABRA Comment:Testing performed by : [address] [address] Basophil abs 0.00 0.00 - 0.10 K/cumm [facility] Comment:Testing performed by : [address] [address] Neutrophil pct 7.1 % [facility] Comment: Interpretive Data Percent cell count reference ranges are not reported, since discordance with absolute values may lead to misinterpretation of CBC data. Current Interpretive Data was last revised on 2017. Testing performed by: [address] [address] Imm gran pct 0.0 % [facility] Comment: Interpretive Data Percent cell count reference ranges are not reported, since discordance with absolute values may lead to misinterpretation of CBC data. Current Interpretive Data was last revised on 2017. Testing performed by: [address] [address] Lymphocyte pct 92.9 % [facility] Comment: Interpretive Data Percent cell count reference ranges are not reported, since discordance with absolute values may lead to misinterpretation of CBC data. Current Interpretive Data was last revised on 2017. Testing performed by: [address] [address] Monocyte pct 0.0 % [facility] Comment: Interpretive Data Percent cell count reference ranges are not reported, since discordance with absolute values may lead to misinterpretation of CBC data. Current Interpretive Data was last revised on 2017. Testing performed by: [address] [place] [address] Eosinophil pct 0.0 % SABRA Comment: Interpretive Data Percent cell count reference ranges are not reported, since discordance with absolute values may lead to misinterpretation of CBC data. Current Interpretive Data was last revised on 2017. Testing performed by: [address] [address] Basophil pct 0.0 % SABRA Comment: Interpretive Data Percent cell count reference ranges are not reported, since discordance with absolute values may lead to misinterpretation of CBC data. Current Interpretive Data was last revised on 2017. Testing performed by: [address] [address] Blood 09/29/2024 1:09 AM CDT 09/29/2024 1:16 AM CDT us Laurel Desir MD LAB BLOOD ORDERABLES Final Res ult Performing Organization Address [facility] Co de Phone Number [address] [employer] [place] [address] * ABO / Rh Confirmation Testing (09/29/2024 1:09 AM CDT) Pathologist [facility] [place] ABO/Rh Confirmation O Positive [facility] Comment:Testing performed by : [address] [address] Blood 09/29/2024 1:09 AM CDT 09/29/2024 1:16 AM CDT us Laurel Desir MD LAB BLOOD ORDERABLES Final Res ult [address] [place] [address] [facility] * (ABNORMAL) Pro B-type natriuretic peptide (09/29/2024 1:09 AM CDT) NT-proBNP 474(H) <=450 pg/mL Comment: Interpretive Comments: A. Dyspnea in Acute Care Setting All Ages: < 300 pg/ml, acute heart failure unlikely. < 50 yrs: 300 - 450 pg/ml, further investigation warranted. > 450 pg/ml, acute heart failure likely. 50 - 74 yrs: 300 - 900 pg/ml, further investigation warranted. > 900 pg/ml, acute heart failure likely . > or = 75 yrs: 450 - 1800 pg/ml, further investigation warranted. > 1800 pg/ml, acute heart failure likely. B. Non-acute Setting < 75 yrs < 125 pg/ml, rules out heart failure. > or = 125 pg/ml, further investigation warranted. > or = 75 yrs < 450 pg/ml, rules out heart failure. > or = 450 pg/ml, further investigation warranted. - Knowledge of each individual patient's NT-proBNP range may be more useful than using similar cut-points for every patient. Please note that marked elevations in NT-proBNP levels may be observed in state other than Left Ventricular Congestive Failure, including: acute coronary syndromes, right heart strain/failure (including pulmonary embolism and cor pulmonale), critical illness, renal failure, as well as advanced age. - References: 1. Jocelin LEVINE et.al. Eur Heart J. 2006:27:330-337. 2. Thomas RW, Pierce AM. J. AM Omar Cardiol: Cardiovasc Imag. 2009;2: 216- 225. Interpretive Data Last Revised Date: 2017. Testing performed by: [facility], [address] [place] [address]., [address] Blood 09/29/2024 1:09 AM CDT 09/29/2024 1:28 AM CDT us Philip Bran MD LAB BLOOD ORDERABLES Aylin freedman Result RHHGKL LL [address] [facility] [place] [address] * (ABNORMAL) CBC with auto differential (09/29/2024 1:09 AM CDT) WBC 0.28(C) 3.80 - 9.90 K/cumm Comment: Critical value called within last 72 hrs Testing performed by: [address] [address] Hgb 5.7(C) 11.9 - 15.5 g/dL SABRA Comment: This result has been called to [id number] by [id number] on 09/29/2024 01:35:24, and has not been read back. Testing performed by: [address] [address] Hct 16.5(L) 35.6 - 45.5 % SABRA Comment:Testing performed by : [address] [address] Plt 62(L) 150 - 400 K/cumm SABRA Comment:Testing performed by : [address], [address] MPV 10.3 9.1 - 12.3 fL SABRA Comment:Testing performed by : [address], [address] RBC 1.77(L) 3.90 - 5.20 M/cumm SABRA Comment:Testing performed by : [address], [address] MCV 93.2 81.3 - 96.4 fL SABRA Comment:Testing performed by : [address], [address] MCH 32.2 27.1 - 33.3 pg SABRA Comment:Testing performed by : [address] [address] MCHC 34.5 32.3 - 35.7 g/dL SABRA Comment:Testing performed by : [address], [address] RDW CV 15.1(H) 11.1 - 14.9 % SABRA Comment:Testing performed by : [address], [address] RDW SD 50.9(H) 35.7 - 48.1 fL SABRA Comment:Testing performed by : [address] [address] NRBC abs 0.00 0.00 - 0.01 K/cumm SABRA Comment:Testing performed by : [address] [place]., [address] Morphologic Screen Results confirmed by manual morphology review. SABRA Comment:Testing performed by : [facility], [address] [place] [address]., [address] Blood 09/29/2024 1:09 AM CDT 09/29/2024 1:16 AM CDT us Laurel Desir MD LAB BLOOD ORDERABLES Final Res ult SABRA [address] [facility] Department [place] [address] * Blood culture Blood (09/29/2024 1:09 AM CDT) Report Final Report: No growth Comment:Testing performed by : [facility], [address] [place]., [address] Blood 09/29/2024 1:09 AM CDT 09/29/2024 5:34 AM CDT Narrative SABRA - 10/03/2024 7:00 AM CDT Collection->Peripheral 1. Blood cultures are incubated for 4 days on a continuously monitored blood culture system. The first report of a negative culture is issued within 24 hours of receipt of the specimen in the laboratory. 2. Positive culture results are reported as soon as they are detected. 3. The most important factor for detection of microbes in the setting of bloodstream infection is the volume of blood submitted for culture. Failure to collect an optimal blood volume can result in false negative blood cultures. 4. For pediatric patients, the recommended blood volume to collect follows a weight based strategy. See the electronic test catalog for collection instructions. 5. For positive blood cultures, a rapid molecular test may be performed for organism identification using the chelsey ePlex blood culture identification panel for gram positive (BCID-GP) and gram negative (BCID-GN) organisms. This nucleic acid amplification test detects microbial DNA in positive blood culture broth. This assay has been cleared by the [place] Food and Drug Administration and its performance characteristics have been verified by the [facility]. For questions about this culture, contact the Microbiology Laboratory at [phone]. Interpretive data was last revised on 24. us Laurel Desir MD LAB MICROBIOLOGY - GENERAL ORD ERABLES Final Result Performing Organization Address City/[facility] Co de Phone Number [address] [address] * Magnesium (09/29/2024 1:09 AM CDT) Pathologist [facility] [place] Magnesium 2.0 1.4 - 2.5 mg/dL Comment:Testing performed by : [address] [address] Blood 09/29/2024 1:09 AM CDT 09/29/2024 1:28 AM CDT us Philip Bran MD LAB BLOOD ORDERABLES Aylin l Result Performing Organization Address [facility] Co de Phone Number [address] [address] * (ABNORMAL) Basic metabolic panel (09/29/2024 1:09 AM CDT) [facility] Sodium 138 135 - 145 mmol/L Comment:Testing performed by : [address] [address] Potassium, pl 3.4 3.3 - 4.9 mmol/L SABRA Comment:Testing performed by : [address] [address] Chloride 103 97 - 110 mmol/L SABRA Comment:Testing performed by : [address] [address] CO2 25 22 - 32 mmol/L SABRA Comment:Testing performed by : [address] [address] Anion gap 10 2 - 15 mmol/L SABRA Comment:Testing performed by : [address] [address] BUN 13 6 - 25 mg/dL SABRA Comment:Testing performed by : [address] [address] Creatinine 0.58(L) 0.60 - 1.10 mg/dL SABRA Comment:Testing performed by : [address] [address] Glucose 178 70 - 199 mg/dL [facility] Comment: Interpretive Data Fasting glucose >/= 126 [...] was last revised 2022. Testing performed by: [address] [address] Calcium 7.5(L) 8.5 - 10.3 mg/dL SABRA Comment:Testing performed by : [address] [address] Blood 09/29/2024 1:09 AM CDT 09/29/2024 1:28 AM CDT us Philip Bran MD LAB BLOOD ORDERABLES Aylin l Result Performing Organization Address City/State/[facility] Co de Phone Number [facility] [address] [facility] [place] [address] * XR Chest 1 View (09/29/2024 12:41 AM CDT) Anatomical Region Laterality Modality Body, Chest N/A Computed Radiogr aphy 09/29/2024 1:22 AM CDT Narrative 09/29/2024 1:23 AM CDT EXAM DESCRIPTION: XR CHEST 1 VIEW REASON FOR STUDY: SOB Per dr pt have sob today TECHNIQUE: 1 radiographic view(s) of the chest. COMPARISON: 11/20/2023 FINDINGS: The cardiac and mediastinal structures are stable compared with 11/20/2023. Right subclavian central line tip is in the superior vena cava. There are diffuse bilateral interstitial and alveolar infiltrates suggesting diffuse pneumonia or pulmonary edema. No pleural effusion. No pneumothorax. IMPRESSION: Diffuse bilateral interstitial and alveolar infiltrates suggesting diffuse pneumonia or pulmonary edema. THIS IS AN ELECTRONICALLY VERIFIED FINAL REPORT 09/29/2024 1:23 AM - Electronically signed by Lee Lee M.D. KT: KT Report ID: [id number] Reading Location: [place] [address] Procedure Note Lee Lee MD - 09/29/2024 EXAM DESCRIPTION: XR CHEST 1 VIEW REASON FOR STUDY: SOB Per dr pt have sob today TECHNIQUE: 1 radiographic view(s) of the chest. COMPARISON: 11/20/2023 FINDINGS: The cardiac and mediastinal structures are stable compared with 11/20/2023. Right subclavian central line tip is in the superior venacava. There are diffuse bilateral interstitial and alveolar infiltratessuggesting diffuse pneumonia or pulmonary edema. No pleural effusion. Nopneumothorax. IMPRESSION: Diffuse bilateral interstitial and alveolar infiltratessuggesting diffuse pneumonia or pulmonary edema. THIS IS AN ELECTRONICALLY VERIFIED FINAL REPORT 09/29/2024 1:23 AM - Electronically signed by Lee Lee M.D. KT: KT Report ID: [id number] Reading Location: [place] [address] aLurel Desir MD IMG XR PROCEDURES Final Result * ECG 12 lead (09/29/2024 12:29 AM CDT) Ventricular Rate EKG/Min 101 BPM [facility] Atrial Rate 101 BPM [facility] HI-Interval (MSEC) 186 ms [facility] QRS-Interval (MSEC) 106 ms [facility] QT-Interval (MSEC) 342 ms [facility] QTc 443 ms [facility] P Wilder 33 degrees [facility] R Wilder 25 degrees [facility] T Wilder 71 degrees [facility] Diagnosis Sinus tachycardia Nonspecific ST abnormality Abnormal ECG No previous ECGs available Confirmed by HALEY EDWARDS M.D. ([id number]) on 09/29/2024 5:13:52 PM [facility] 09/29/2024 12:2 9 AM CDT 09/29/2024 5:13 PM CDT us Philip Bran MD ECG ORDERABLES Final Res ult Performing Organization Address City/[facility]/ZIP Co de Phone Number [facility] * ABO/Rh (09/29/2024 12:06 AM CDT) ABO/Rh O Positive Comment:Testing performed by : [facility], [address] [place] [address]., [address] Blood 09/29/2024 12:0 6 AM CDT 09/29/2024 12:40 AM CDT Narrative SABRA - 09/29/2024 1:21 AM CDT Has the patient had Daratumumab or Isatuximab in the past 6 months?->Unknown us Laurel Desir MD LAB BLOOD BANK TEST ORDERABLES Final Result Performing Organization Address [facility] Co de Phone Number [place] [phone] [facility] [place] [address] * Crossmatch (09/29/2024 12:06 AM CDT) Crossmatch Compatible [facility] Unit number for crossmatch [id number] [facility] Crossmatch Compatible [facility] Unit number for crossmatch [id number] [facility] Blood 09/29/2024 12:0 6 AM CDT 09/29/2024 12:40 AM CDT us Philip Bran MD LAB BLOOD BANK TEST ORDER LAITH Edited Result - Final Performing Organization Address City/[facility]/ZIP Co de Phone Number [place] [phone] [facility] [place] [address] * Antibody screen (09/29/2024 12:06 AM CDT) Rivera, indirect, Gel Interpretation Negative ABSC Comment:Testing performed by : [address] [address] Blood 09/29/2024 12:0 6 AM CDT 09/29/2024 12:40 AM CDT Narrative SABRA - 09/29/2024 1:21 AM CDT Has the patient had Daratumumab or Isatuximab in the past 6 months?->Unknown us Laurel Desir MD LAB BLOOD BANK TEST ORDERABLES Final Result [place] [address] [facility] [place] [address] * Prepare RBC: 1 Units (09/28/2024 11:37 PM CDT) Units requested 1 Comment:Testing performed by : [facility], [address] [place] [address]., [address] Units requested Ready SABRA Comment:Testing performed by : [facility], [address] [place] [address]., [address] Unit Number [id number] Product code [id number] [facility] Blood Expiration Date 744623964490 [facility] Product Blood Type (for scanning) 5100 [facility] Product Blood Type OPOS [facility] Dispense Status DISPENSED [facility] Blood 09/28/2024 11:3 7 PM CDT 09/28/2024 11:37 PM CDT us Laurel Desir MD BLOOD BANK PRODUCT ORDERABLES Final Result SABRA [address] [facility] [place] [address] * Urine culture Urine, clean voided (09/28/2024 11:20 PM CDT) Report Final Report: No growth Comment:Testing performed by : [facility], [address] [place]., [address] Urine, clean voided 09/28/2024 11:20 PM CDT 09/29/2024 2:26 AM CDT Narrative SABRA - 09/30/2024 7:05 AM CDT Indications for Culture:->Recent positive UA Testing performed by [facility] ([phone]) Laurel Desir MD LAB MICROBIOLOGY - GENERAL ORD ERABLES Final Result SABRA [address] [facility] [place] [address] * (ABNORMAL) Differential, auto (09/28/2024 10:39 PM CDT) Neutrophil abs 0.02(C) 1.50 - 6.50 K/cumm Comment: This result has been called to [id number] by [email or web address] on 09/28/2024 23:03:50, and has been read back. Testing performed by: [address] [address] Imm gran abs 0.00 0.00 - 0.10 K/cumm SABRA Comment:Testing performed by : [address] [address] Lymphocyte abs 0.62(L) 0.80 - 3.30 K/cumm SABRA Comment:Testing performed by : [address] [address] Monocyte abs 0.01(L) 0.20 - 0.80 K/cumm SABRA Comment:Testing performed by : [address] [address] Eosinophil abs 0.00 0.00 - 0.50 K/cumm SABRA Comment:Testing performed by : [address] [address] Basophil abs 0.00 0.00 - 0.10 K/cumm SABRA Comment:Testing performed by : [address] [address] Neutrophil pct 3.1 % [facility] Comment: Interpretive Data Percent cell count reference ranges are not reported, since discordance with absolute values may lead to misinterpretation of CBC data. Current Interpretive Data was last revised on 2017. Testing performed by: [address] [address] Imm gran pct 0.0 % [facility] Comment: Interpretive Data Percent cell count reference ranges are not reported, since discordance with absolute values may lead to misinterpretation of CBC data. Current Interpretive Data was last revised on 2017. Testing performed by: [address] [address] Lymphocyte pct 95.4 % [facility] Comment: Interpretive Data Percent cell count reference ranges are not reported, since discordance with absolute values may lead to misinterpretation of CBC data. Current Interpretive Data was last revised on 2017. Testing performed by: [address] [address] Monocyte pct 1.5 % [facility] Comment: Interpretive Data Percent cell count reference ranges are not reported, since discordance with absolute values may lead to misinterpretation of CBC data. Current Interpretive Data was last revised on 2017. Testing performed by: [address] [address] Eosinophil pct 0.0 % [facility] Comment: Interpretive Data Percent cell count reference ranges are not reported, since discordance with absolute values may lead to misinterpretation of CBC data. Current Interpretive Data was last revised on 2017. Testing performed by: [address] [address] Basophil pct 0.0 % [facility] Comment: Interpretive Data Percent cell count reference ranges are not reported, since discordance with absolute values may lead to misinterpretation of CBC data. Current Interpretive Data was last revised on 2017. Testing performed by: [address] [address] Blood 09/28/2024 10:3 9 PM CDT 09/28/2024 10:49 PM CDT us Laurel Desir MD LAB BLOOD ORDERABLES Final Res ult [facility] [address] [facility] [place] [address] * (ABNORMAL) CBC with auto differential (09/28/2024 10:39 PM CDT) WBC 0.65(C) 3.80 - 9.90 K/cumm Comment: This result has been called to [id number] by [email or web address] on 09/28/2024 23:03:50, and has been read back. Testing performed by: [address] [address] Hgb 6.5(L) 11.9 - 15.5 g/dL SABRA Comment:Testing performed by : [address] [address] Hct 19.1(L) 35.6 - 45.5 % SABRA Comment:Testing performed by : [address] [address] Plt 68(L) 150 - 400 K/cumm SABRA Comment:Testing performed by : [address] [address] MPV 10.3 9.1 - 12.3 fL SABRA Comment:Testing performed by : [address] [address] RBC 2.06(L) 3.90 - 5.20 M/cumm SABRA Comment:Testing performed by : [address] [address] MCV 92.7 81.3 - 96.4 fL SABRA Comment:Testing performed by : [address] [address] MCH 31.6 27.1 - 33.3 pg SABRA Comment:Testing performed by : [address] [address] MCHC 34.0 32.3 - 35.7 g/dL SABRA Comment:Testing performed by : [address] [address] RDW CV 15.2(H) 11.1 - 14.9 % SABRA Comment:Testing performed by : [address] [address] RDW SD 51.1(H) 35.7 - 48.1 fL SABRA Comment:Testing performed by : [address] [address] NRBC abs 0.00 0.00 - 0.01 K/cumm SABRA Comment:Testing performed by : [address], [address] Morphologic Screen Results confirmed by manual morphology review. SABRA Comment:Testing performed by : [address], [address] Blood 09/28/2024 10:3 9 PM CDT 09/28/2024 10:49 PM CDT Laurel Desir MD LAB BLOOD ORDERABLES Final Res ult [facility] [address] [facility] [place] [address] * Transfuse RBC (09/23/2024 2:21 PM CDT) Blood Chalino Chapa MD BLOOD TRANSFUSION ORDERAB LES Final Result * Transfuse RBC (09/23/2024 12:13 PM CDT) Blood Chalino Chapa MD BLOOD TRANSFUSION ORDERAB LES Final Result * Prepare RBC (09/23/2024 9:50 AM CDT) Unit Number [id number] Product code [id number] [facility] ([place]) Blood Expiration Date [id number] [facility] ([place]) Product Blood Type (for scanning) 5100 [facility] ([place]) Product Blood Type OPOS [facility]) Dispense Status DISPENSED [facility] ([place]) us Chalino Chapa MD BLOOD BANK PRODUCT ORDERA BLES Final Result SABRA [facility] ([place]) [address] [place] [address] [employer] [address] * Prepare RBC (09/23/2024 9:49 AM CDT) Unit Number [id number] Product code [id number] SABRA [facility] ([place]) Blood Expiration Date [id number] [facility] ([place]) Product Blood Type (for scanning) 5100 [facility] ([place]) Product Blood Type OPOS [facility] ([place]) Dispense Status DISPENSED [facility] ([place]) us Chalino Chapa MD BLOOD BANK PRODUCT ORDERA BLES Final Result Performing Organization Address City/[facility]/ZIP Co de Phone Number SABRA [facility] ([place]) [address] [place] [address] [place] [address] * Prepare RBC: 2 Units (09/23/2024 9:30 AM CDT) Units requested 2 Comment:Testing performed by : [place], [address] Units requested Ready EMMY [facility] ([place]) Comment:Testing performed by : [place], [address] Blood 09/23/2024 9:30 AM CDT 09/23/2024 9:36 AM CDT Narrative SABRA [facility] ([place]) - 09/23/2024 9:39 AM CDT Are special requirements needed? (All products are leukoreduced and CMV- safe)->No us Chalino Chapa MD BLOOD BANK PRODUCT ORDERA BLES Final Result SABRA [facility] ([place]) [address] [facility] [place] [address] * (ABNORMAL) Immature platelet fraction (09/23/2024 8:10 AM CDT) Pathologist [facility] IPF 11.9(H) 1.6 - 10.1 % Comment:Testing performed by : [place], [address] Blood 09/23/2024 8:10 AM CDT 09/23/2024 8:40 AM CDT us Chalino Chapa MD LAB BLOOD ORDERABLES Aylin tano Result [facility] ([place]) 1 [facility] Department [place] [address] * (ABNORMAL) CBC with auto differential (09/23/2024 8:10 AM CDT) [facility] WBC 0.70(C) 3.80 - 9.90 K/cumm Comment: This result has been called to Lourdes Hudson RN IFS by [id number] on 09/23/2024 08:51:42, and has been read back. Testing performed by: [facility], [place], [address] Hgb 6.7(L) 11.9 - 15.5 g/dL [facility] ([place]) Comment:Testing performed by : [place], [address] Hct 20.2(L) 35.6 - 45.5 % [facility] ([place]) Comment:Testing performed by : [place], [address] Plt 21(C) 150 - 400 K/cumm [facility] ([place]) Comment: This result has been called to Lourdes Hudson RN IFS by [id number] on 09/23/2024 08:51:42, and has been read back. Testing performed by: [place], [address] MPV Not Measured 9.1 - 12.3 fL [facility] ([place]) Comment:Testing performed by : [place], [address] RBC 2.02(L) 3.90 - 5.20 M/cumm [facility] ([place]) Comment:Testing performed by : [facility], [facility], [place], [address] MCV 100.0(H) 81.3 - 96.4 fL [facility] ([place]) Comment:Testing performed by : [facility], [facility], [place], [address] MCH 33.2 27.1 - 33.3 pg [facility] ([place]) Comment:Testing performed by : [facility], [place], [address] MCHC 33.2 32.3 - 35.7 g/dL [facility] ([place]) Comment:Testing performed by : [facility], [place], [address] RDW CV 16.6(H) 11.1 - 14.9 % [facility] ([place]) Comment:Testing performed by : [facility], [place], [address] RDW SD 60.6(H) 35.7 - 48.1 fL [facility] ([place]) Comment:Testing performed by : [facility], [place], [address] NRBC abs 0.00 0.00 - 0.01 K/cumm [facility] ([place]) Comment:Testing performed by : [place], [address] Blood 09/23/2024 8:10 AM CDT 09/23/2024 8:40 AM CDT us Chalino Chapa MD LAB BLOOD ORDERABLES Aylin l Result S[facility]RA ROGERS ([place]) 1 [facility] Department [place] [address] * ABO/Rh (09/23/2024 8:10 AM CDT) ABO/Rh O Positive Comment:Testing performed by : [facility], [place], [address] Blood 09/23/2024 8:10 AM CDT 09/23/2024 8:56 AM CDT Narrative CERPAOLA ROGERS ([place]) - 09/23/2024 9:36 AM CDT Has the patient had Daratumumab or Isatuximab in the past 6 months?->Unknown Witnessed by Yadi Gtz us Chalino Chapa MD LAB BLOOD BANK TEST ORDER LAITH Final Result [facility]RA SUE ([place]) 1 [facility] Department [place] [address] * (ABNORMAL) Manual Differential (09/23/2024 8:10 AM CDT) Differential Manual Comment:Testing performed by : [place], [address] Cells Counted 100 [facility] ROG[facility] ([place]) Comment:Testing performed by : [facility], [place], [address] Neutrophil abs 0.09(C) 1.50 - 6.50 K/cumm [facility] ([place]) Comment: This result has been called to Yadi Gtz RN IFS by [id number] on 09/23/2024 09:25:52, and has been read back. Testing performed by: [facility], [place], [address] Lymphocyte abs 0.60(L) 0.80 - 3.30 K/cumm [facility] ([place]) Comment:Testing performed by : [facility], [place], [address] Eosinophil abs 0.01 0.00 - 0.50 K/cumm [facility] ([place]) Comment:Testing performed by : [place], [address] Neutrophil pct 12.0 % [facility] ([place]) Comment: Interpretive Data Percent cell count reference ranges are not reported, since discordance with absolute values may lead to misinterpretation of CBC data. Current Interpretive Data was last revised on 2017. Testing performed by: [facility], [place], [address] Lymphocyte pct 86.0 % [facility] ([place]) Comment: Interpretive Data Percent cell count reference ranges are not reported, since discordance with absolute values may lead to misinterpretation of CBC data. Current Interpretive Data was last revised on 2017. Testing performed by: [facility], [facility], [place], [address] Eosinophil pct 1.0 % [facility] ([place]) Comment: Interpretive Data Percent cell count reference ranges are not reported, since discordance with absolute values may lead to misinterpretation of CBC data. Current Interpretive Data was last revised on 2017. Testing performed by: [facility], [facility], [place], [address] Band Neutrophil pct 1.0 0.0 - 5.0 % [facility] ROGERS ([place]) Comment:Testing performed by : [facility], [facility], [place], [address] RBC morphology Consistent with RBC Indicies [facility]RA ROGERS ([place]) Comment:Testing performed by : [facility], [place], [address] Platelet estimate #CAC; #D CE JENNA ROGERS ([place]) Comment:Testing performed by : [facility], [facility], [place], [address] Blood 09/23/2024 8:10 AM CDT 09/23/2024 8:40 AM CDT us Chalino Chapa MD LAB BLOOD ORDERABLES Aylin l Result Performing Organization Address City/[facility]/ZIP Co de Phone Number AMYPAOLA ROGERS ([place]) [address] [place] [address] Department [place] [address] * Crossmatch (09/23/2024 8:10 AM CDT) Crossmatch Compatible [facility] ([place]) Unit number for crossmatch [id number] [facility] ([place]) Crossmatch Compatible [facility] ([place]) Unit number for crossmatch [id number] [facility] ([place]) Blood 09/23/2024 8:10 AM CDT 09/23/2024 8:56 AM CDT Chalino Chapa MD LAB BLOOD BANK TEST ORDER LAITH Final Result Performing Organization Address City/[facility]/ZIP Co de Phone Number SABRA [facility] ([place]) [address] [place] [address] Department [place] [address] * Antibody screen (09/23/2024 8:10 AM CDT) Rivera, indirect, Gel Interpretation Negative ABSC Comment:Testing performed by : [facility], One [facility], [place], [address] Blood 09/23/2024 8:10 AM CDT 09/23/2024 8:56 AM CDT Narrative [facility] ([place]) - 09/23/2024 9:36 AM CDT Has the patient had Daratumumab or Isatuximab in the past 6 months?->Unknown us Chalino Chapa MD LAB BLOOD BANK TEST ORDER LAITH Final Result [facility]RA ROGERS ([place]) 1 [facility] [place] [address] * Transfuse RBC (09/16/2024 2:17 PM CDT) Blood us Chalino Chapa MD BLOOD TRANSFUSION ORDERAB LES Final Result * Transfuse RBC (09/16/2024 12:33 PM CDT) Blood us Chalino Chapa MD BLOOD TRANSFUSION ORDERAB LES Final Result * Prepare RBC (09/16/2024 10:33 AM CDT) Unit Number [id number] Product code [id number] [facility] ([place]) Blood Expiration Date [id number] [facility] ([place]) Product Blood Type (for scanning) 5100 [facility] ([place]) Product Blood Type OPOS [facility] ([place]) Dispense Status DISPENSED [facility] ([place]) us Chalino Chapa MD BLOOD BANK PRODUCT ORDERA BLES Final Result [facility] ([place]) [address] Department [place] [address] * Prepare RBC (09/16/2024 10:32 AM CDT) Unit Number [id number] Product code [id number] [facility]RA [facility] ([place]) Blood Expiration Date [id number] [facility] ([place]) Product Blood Type (for scanning) 5100 [facility] ([place]) Product Blood Type OPOS [facility] ([place]) Dispense Status DISPENSED [facility] ([place]) us Chalino Chapa MD BLOOD BANK PRODUCT ORDERA BLES Final Result [facility]ABRA ROGERS ([place]) [address] [place] [address] * Prepare RBC: 2 Units (09/16/2024 10:25 AM CDT) Units requested 2 Comment:Testing performed by : [facility], [place], [address] Units requested Ready [facility] ([place]) Comment:Testing performed by : [place], [address] Blood 09/16/2024 10:2 5 AM CDT 09/16/2024 10:25 AM CDT Narrative [facility] ([place]) - 09/16/2024 10:26 AM CDT Are special requirements needed? (All products are leukoreduced and CMV- safe)->No us Chalino Chapa MD BLOOD BANK PRODUCT ORDERA BLES Final Result SABRA ROGERS ([place]) [address] [place] [address] * Crossmatch (09/16/2024 10:12 AM CDT) Crossmatch Compatible CERNER A ([place]) Unit number for crossmatch [id number] [facility] ([place]) Crossmatch Compatible CERNER A ([place]) Unit number for crossmatch [id number] [facility] ([place]) Blood 09/16/2024 10:1 2 AM CDT 09/16/2024 10:12 AM CDT us Chalino Chapa MD LAB BLOOD BANK TEST ORDER LAITH Final Result Performing Organization Address [facility] Co de Phone Number SABRA [facility] ([place]) 1 [facility] Department [place] [address] * eGFR (09/16/2024 9:05 AM CDT) eGFR >90 >=60 mL/min/1. 73 [...] was last reviewed 2021. Testing performed by: [facility], [facility], [place], [address] Blood 09/16/2024 9:05 AM CDT 09/16/2024 9:20 AM CDT us Zoraida Villegas NP LAB BLOOD ORDERABLES Final Result Performing Organization Address City/[facility]/ZIP Co de Phone Number [facility]RA [facility] ([place]) 1 [facility] Department [place] [address] * (ABNORMAL) CBC with auto differential (09/16/2024 9:05 AM CDT) WBC 1.83(L) 3.80 - 9.90 K/cumm Comment:Testing performed by : [place], [address] Hgb 6.3(C) 11.9 - 15.5 g/dL [facility] ([place]) Comment: This result has been called to Ynes Ojeda RN IFS by [id number] on 09/16/2024 10:07:36, and has been read back. Testing performed by: [facility], [place], [address] Hct 19.1(L) 35.6 - 45.5 % [facility] ([place]) Comment:Testing performed by : [place], [address] Plt 144(L) 150 - 400 K/cumm [facility] ([place]) Comment:Testing performed by : [place], [address] MPV 11.7 9.1 - 12.3 fL [facility] ([place]) Comment:Testing performed by : [place], [address] RBC 1.72(L) 3.90 - 5.20 M/cumm [facility] ([place]) Comment:Testing performed by : [place], [address] MCV 111.0(H) 81.3 - 96.4 fL [facility] ([place]) Comment:Testing performed by : [place], [address] MCH 36.6(H) 27.1 - 33.3 pg [facility] ([place]) Comment:Testing performed by : [place], [address] MCHC 33.0 32.3 - 35.7 g/dL [facility] ([place]) Comment:Testing performed by : [place], [address] RDW CV 16.4(H) 11.1 - 14.9 % [facility] ([place]) Comment:Testing performed by : [place], [address] RDW SD 65.4(H) 35.7 - 48.1 fL SABRA ROGERS ([place]) Comment:Testing performed by : [facility], [facility], [place], [address] NRBC abs 0.00 0.00 - 0.01 K/cumm SABRA ROGERS ([place]) Comment:Testing performed by : [facility], [facility], [place], [address] Blood 09/16/2024 9:05 AM CDT 09/16/2024 9:27 AM CDT us Chalino Chapa MD LAB BLOOD ORDERABLES Aylin l Result Performing Organization Address [facility]/ZIP Co de Phone Number SABRA SUE ([place]) [address] [place] [address] Department [place] [address] * ABO/Rh (09/16/2024 9:05 AM CDT) ABO/Rh O Positive Comment:Testing performed by : [facility], [facility], [place], [address] Blood 09/16/2024 9:05 AM CDT 09/16/2024 9:19 AM CDT Narrative SABRA ROGERS ([place]) - 09/16/2024 10:10 AM CDT Has the patient had Daratumumab or Isatuximab in the past 6 months?->Unknown us Milla Armenta NP LAB BLOOD BANK TEST ORDERA BLES Final Result Performing Organization Address [facility]/ZIP Co de Phone Number SABRA ROGERS ([place]) 1 [facility] Department [place] [address] * (ABNORMAL) Manual Differential (09/16/2024 9:05 AM CDT) Differential Manual Comment:Testing performed by : [facility], [facility], [place], [address] Cells Counted 100 SABRA ROGERS ([place]) Comment:Testing performed by : [facility], [facility], [place], [address] Neutrophil abs 1.08(L) 1.50 - 6.50 K/cumm [facility] ([place]) Comment:Testing performed by : [facility], [facility], [place], [address] Lymphocyte abs 0.64(L) 0.80 - 3.30 K/cumm [facility] ([place]) Comment:Testing performed by : [facility], [facility], [place], [address] Monocyte abs 0.04(L) 0.20 - 0.80 K/cumm [facility] ([place]) Comment:Testing performed by : [facility], [facility], [place], [address] Eosinophil abs 0.07 0.00 - 0.50 K/cumm [facility] ([place]) Comment:Testing performed by : [place], [address] Neutrophil pct 57.0 % [facility] ([place]) Comment: Interpretive Data Percent cell count reference ranges are not reported, since discordance with absolute values may lead to misinterpretation of CBC data. Current Interpretive Data was last revised on 2017. Testing performed by: [facility], [facility], [place], [address] Lymphocyte pct 35.0 % [facility] ([place]) Comment: Interpretive Data Percent cell count reference ranges are not reported, since discordance with absolute values may lead to misinterpretation of CBC data. Current Interpretive Data was last revised on 2017. Testing performed by: [facility], [place], [address] Monocyte pct 2.0 % [facility] ([place]) Comment: Interpretive Data Percent cell count reference ranges are not reported, since discordance with absolute values may lead to misinterpretation of CBC data. Current Interpretive Data was last revised on 2017. Testing performed by: [facility], [place], [address] Eosinophil pct 4.0 % [facility] ([place]) Comment: Interpretive Data Percent cell count reference ranges are not reported, since discordance with absolute values may lead to misinterpretation of CBC data. Current Interpretive Data was last revised on 2017. Testing performed by: [facility], [place], [address] Band Neutrophil pct 2.0 0.0 - 5.0 % [facility] ([place]) Comment:Testing performed by : [facility], [facility], [place], [address] RBC morphology Consistent with RBC Indicies SABRA ROGERS ([place]) Comment:Testing performed by : [facility], [facility], [place], [address] Anisocytosis Slight(A) SABRA ROGERS ([place]) Comment:Testing performed by : [facility], [facility], [place], [address] Macrocytes 3-7/HPF(A) SABRA Silva ([place]) Comment:Testing performed by : [facility], [facility], [place], [address] Elliptocytes 3-7/HPF(A) [facility]RA ROGERS ([place]) Comment:Testing performed by : [facility], [facility], [place], [address] Platelet estimate Automated Count Confirmed [facility]ABRA ROGERS ([place]) Comment:Testing performed by : [facility], [facility], [place], [address] Blood 09/16/2024 9:05 AM CDT 09/16/2024 9:27 AM CDT us Chalino Chapa MD LAB BLOOD ORDERABLES Aylin l Result [facility]ABRA ROGERS ([place]) 1 [facility] Department [place] [address] * Antibody screen (09/16/2024 9:05 AM CDT) Rivera, indirect, Gel Interpretation Negative ABSC Comment:Testing performed by : [facility], [facility], [place], [address] Blood 09/16/2024 9:05 AM CDT 09/16/2024 9:19 AM CDT Narrative [facility]RA ROGERS ([place]) - 09/16/2024 10:10 AM CDT Has the patient had Daratumumab or Isatuximab in the past 6 months?->Unknown us Milla Armenta NP LAB BLOOD BANK TEST ORDERA BLES Final Result [facility]ABRA ROGERS ([place]) 1 [facility] Department [place] [address] * (ABNORMAL) Comprehensive metabolic panel (09/16/2024 9:05 AM CDT) Sodium 137 135 - 145 mmol/L Comment:Testing performed by : [facility], [facility], [place], [address] Potassium, pl 4.5 3.3 - 4.9 mmol/L [facility] ([place]) Comment:Testing performed by : [facility], [facility], [place], [address] Chloride 101 97 - 110 mmol/L [facility] ([place]) Comment:Testing performed by : [facility], [place], [address] CO2 26 22 - 32 mmol/L [facility] ([place]) Comment:Testing performed by : [facility], [place], [address] Anion gap 10 2 - 15 mmol/L [facility] ([place]) Comment:Testing performed by : [facility], [place], [address] BUN 22 6 - 25 mg/dL [facility] ([place]) Comment:Testing performed by : [facility], [place], [address] Creatinine 0.54(L) 0.60 - 1.10 mg/dL [facility] ([place]) Comment:Testing performed by : [facility], [place], [address] Glucose 143 70 - 199 mg/dL [facility] ([place]) Comment: Interpretive Data Fasting glucose >/= 126 [...] last revised 2022. Testing performed by: [facility], [place], [address] Calcium 8.5 8.5 - 10.3 mg/dL [facility] ([place]) Comment:Testing performed by : [facility], [facility], [place], [address] Bilirubin, total 0.8 0.1 - 1.2 mg/dL [facility] ([place]) Comment:Testing performed by : [facility], [place], [address] Protein, pl 6.3(L) 6.5 - 8.5 g/dL [facility] ([place]) Comment:Testing performed by : [facility], [place], [address] Albumin 4.2 3.5 - 5.0 g/dL [facility] ([place]) Comment:Testing performed by : [facility], [place], [address] Alk phos 66 40 - 130 Units/L [facility] ([place]) Comment:Testing performed by : [facility], [place], [address] ALT 59(H) 7 - 45 Units/L [facility] ([place]) Comment:Testing performed by : [facility], [facility], [place], [address] AST 31 10 - 45 Units/L [facility] ([place]) Comment:Testing performed by : [facility], [place], [address] Blood 09/16/2024 9:05 AM CDT 09/16/2024 9:20 AM CDT Zoraida Villegas [employer] LAB BLOOD ORDERABLES Final Result [facility] ([place]) [address] [place] [address] Department [place] [address] * eGFR (09/09/2024 9:00 AM CDT) eGFR 90 >=60 mL/min/1. 73 [...] was last reviewed 2021. Testing performed by: [place], [address] Blood 09/09/2024 9:00 AM CDT 09/09/2024 9:11 AM CDT us Chalino Chapa MD LAB BLOOD ORDERABLES Aylin freedman Result [facility] ([place]) 1 [facility] Department [place] [address] * (ABNORMAL) Differential, auto (09/09/2024 9:00 AM CDT) Neutrophil abs 1.38(L) 1.50 - 6.50 K/cumm Comment:Testing performed by : [place], [address] Imm gran abs 0.01 0.00 - 0.10 K/cumm [facility] ([place]) Comment:Testing performed by : [place], [address] Lymphocyte abs 0.70(L) 0.80 - 3.30 K/cumm [facility] ([place]) Comment:Testing performed by : [place], [address] Monocyte abs 0.21 0.20 - 0.80 K/cumm [facility] ([place]) Comment:Testing performed by : [facility], [place], [address] Eosinophil abs 0.04 0.00 - 0.50 K/cumm [facility] ([place]) Comment:Testing performed by : [place], [address] Basophil abs 0.02 0.00 - 0.10 K/cumm [facility] ([place]) Comment:Testing performed by : [place], [address] Neutrophil pct 58.5 % [facility] ([place]) Comment: Interpretive Data Percent cell count reference ranges are not reported, since discordance with absolute values may lead to misinterpretation of CBC data. Current Interpretive Data was last revised on 2017. Testing performed by: [place], [address] Imm gran pct 0.4 % [facility] ([place]) Comment: Interpretive Data Percent cell count reference ranges are not reported, since discordance with absolute values may lead to misinterpretation of CBC data. Current Interpretive Data was last revised on 2017. Testing performed by: [place], [address] Lymphocyte pct 29.7 % [facility] ([place]) Comment: Interpretive Data Percent cell count reference ranges are not reported, since discordance with absolute values may lead to misinterpretation of CBC data. Current Interpretive Data was last revised on 2017. Testing performed by: [place], [address] Monocyte pct 8.9 % [facility] ([place]) Comment: Interpretive Data Percent cell count reference ranges are not reported, since discordance with absolute values may lead to misinterpretation of CBC data. Current Interpretive Data was last revised on 2017. Testing performed by: [place], [address] Eosinophil pct 1.7 % [facility] ([place]) Comment: Interpretive Data Percent cell count reference ranges are not reported, since discordance with absolute values may lead to misinterpretation of CBC data. Current Interpretive Data was last revised on 2017. Testing performed by: [place], [address] Basophil pct 0.8 % [facility] ([place]) Comment: Interpretive Data Percent cell count reference ranges are not reported, since discordance with absolute values may lead to misinterpretation of CBC data. Current Interpretive Data was last revised on 2017. Testing performed by: [place], [address] Blood 09/09/2024 9:00 AM CDT 09/09/2024 9:21 AM CDT Chalino Chapa MD LAB BLOOD ORDERABLES Aylin freedman Result [facility] ([place]) 1 [facility] Department [place] [address] * (ABNORMAL) CBC with auto differential (09/09/2024 9:00 AM CDT) WBC 2.36(L) 3.80 - 9.90 K/cumm Comment:Testing performed by : [place], [address] Hgb 8.1(L) 11.9 - 15.5 g/dL [facility] ([place]) Comment:Testing performed by : [place], Hct 24.8(L) 35.6 - 45.5 % [facility] ([place]) Comment:Testing performed by : [place], Plt 180 150 - 400 K/cumm [facility] ([place]) Comment:Testing performed by : [place], MPV 11.4 9.1 - 12.3 fL [facility] ([place]) Comment:Testing performed by : [place], RBC 2.25(L) 3.90 - 5.20 M/cumm [facility] ([place]) Comment:Testing performed by : [place], MCV 110.2(H) 81.3 - 96.4 fL [facility] ([place]) Comment:Testing performed by : [place], [address] MCH 36.0(H) 27.1 - 33.3 pg [facility] ([place]) Comment:Testing performed by : [place], [address] MCHC 32.7 32.3 - 35.7 g/dL [facility] ([place]) Comment:Testing performed by : [facility], [place], [address] RDW CV 17.0(H) 11.1 - 14.9 % [facility] ([place]) Comment:Testing performed by : [facility], [place], [address] RDW SD 67.0(H) 35.7 - 48.1 fL [facility] ([place]) Comment:Testing performed by : [facility], [place], [address] NRBC abs 0.00 0.00 - 0.01 K/cumm [facility] ([place]) Comment:Testing performed by : [facility], [place], [address] Blood 09/09/2024 9:00 AM CDT 09/09/2024 9:21 AM CDT Chalino Chapa MD LAB BLOOD ORDERABLES Aylin freedman Result [facility] ([place]) 1 [facility] Department [place] [address] * (ABNORMAL) Comprehensive metabolic panel (09/09/2024 9:00 AM CDT) Sodium 141 135 - 145 mmol/L Comment:Testing performed by : [facility], [place], [address] Potassium, pl 4.0 3.3 - 4.9 mmol/L [facility] ([place]) Comment:Testing performed by : [facility], [place], [address] Chloride 103 97 - 110 mmol/L [facility] ([place]) Comment:Testing performed by : [facility], [place], [address] CO2 27 22 - 32 mmol/L [facility] ([place]) Comment:Testing performed by : [facility], [place], [address] Anion gap 11 2 - 15 mmol/L [facility] ([place]) Comment:Testing performed by : [facility], [place], [address] BUN 13 6 - 25 mg/dL [facility] ([place]) Comment:Testing performed by : [facility], [place], [address] Creatinine 0.56(L) 0.60 - 1.10 mg/dL [facility] ([place]) Comment:Testing performed by : [facility], [place], [address] Glucose 185 70 - 199 mg/dL [facility] ([place]) Comment: Interpretive Data Fasting glucose >/= 126 [...] last revised 2022. Testing performed by: [facility], [place], [address] Calcium 8.3(L) 8.5 - 10.3 mg/dL [facility] ([place]) Comment:Testing performed by : [facility], [place], [address] Bilirubin, total 0.9 0.1 - 1.2 mg/dL [facility] ([place]) Comment:Testing performed by : [facility], [place], [address] Protein, pl 6.4(L) 6.5 - 8.5 g/dL [facility] ([place]) Comment:Testing performed by : [facility] [facility], [place], [address] Albumin 4.1 3.5 - 5.0 g/dL [facility] ([place]) Comment:Testing performed by : [facility], [place], [address] Alk phos 67 40 - 130 Units/L [facility] ([place]) Comment:Testing performed by : [facility], [place], [address] ALT 44 7 - 45 Units/L [facility] ([place]) Comment:Testing performed by : [facility], [place], [address] AST 19 10 - 45 Units/L SABRA ROGERS ([place]) Comment:Testing performed by : [facility], [place], [address] Blood 09/09/2024 9:00 AM CDT 09/09/2024 9:11 AM CDT Chalino Chapa MD LAB BLOOD ORDERABLES Aylin l Result Performing Organization Address City/[facility]/ZIP Co de Phone Number SABRA SUE ([place]) 1 [facility] Department [place] [address] * Prepare RBC: 1 Units (09/02/2024 6:07 PM CDT) Units requested 1 Comment:Testing performed by : [facility], [facility], [place], [address] Units requested Ready EMMY ROGERS ([place]) Comment:Testing performed by : [place], [address] Blood 09/02/2024 6:07 PM CDT 09/02/2024 6:07 PM CDT Narrative SABRA ROGERS ([place]) - 09/02/2024 6:08 PM CDT 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 symptomatic Are special requirements needed? (All products are leukoreduced and CMV- safe)->No Chalino Chapa MD BLOOD BANK PRODUCT ORDERA BLES Final Result AMYPAOLA SUE ([place]) [address] [place] [address] Department [place] [address] * Transfuse RBC (09/02/2024 1:17 PM CDT) Blood us Chalino Chapa MD BLOOD TRANSFUSION ORDERAB LES Final Result * Prepare RBC (09/02/2024 11:07 AM CDT) Unit Number [id number] Product code [id number] SABRA ROGERS ([place]) Blood Expiration Date [id number] [facility] ([place]) Product Blood Type (for scanning) 5100 [facility] ([place]) Product Blood Type OPOS [facility] ([place]) Dispense Status DISPENSED SABRA ROGERS ([place]) us Chalino Chapa MD BLOOD BANK PRODUCT ORDERA BLES Final Result Performing Organization Address City/[facility]/ZIP Co de Phone Number SABRA ROGERS ([place]) 1 [facility] Department [place] [address] * eGFR (09/02/2024 9:45 AM CDT) eGFR 87 >=60 mL/min/1. 73 m2 Comment: Interpretive Data [...] was last reviewed 2021. Testing performed by: [facility], [facility], [place], [address] Blood 09/02/2024 9:45 AM CDT 09/02/2024 10:06 AM CDT us Gabriel Bruce NP LAB BLOOD ORDERABLES F inal Result SABRA ROGERS ([place]) 1 [facility] Department [place] [address] * (ABNORMAL) Differential, auto (09/02/2024 9:45 AM CDT) Neutrophil abs 1.05(L) 1.50 - 6.50 K/cumm Comment:Testing performed by : [facility], [facility], [place], [address] Imm gran abs 0.02 0.00 - 0.10 K/cumm [facility] ([place]) Comment:Testing performed by : [facility], [place], [address] Lymphocyte abs 0.51(L) 0.80 - 3.30 K/cumm [facility] ([place]) Comment:Testing performed by : [facility], [place], [address] Monocyte abs 0.21 0.20 - 0.80 K/cumm [facility] ([place]) Comment:Testing performed by : [facility], [place], [address] Eosinophil abs 0.04 0.00 - 0.50 K/cumm [facility] ([place]) Comment:Testing performed by : [facility], [place], [address] Basophil abs 0.01 0.00 - 0.10 K/cumm [facility] ([place]) Comment:Testing performed by : [place], [address] Neutrophil pct 57.1 % [facility] ([place]) Comment: Interpretive Data Percent cell count reference ranges are not reported, since discordance with absolute values may lead to misinterpretation of CBC data. Current Interpretive Data was last revised on 2017. Testing performed by: [place], [address] Imm gran pct 1.1 % [facility] ([place]) Comment: Interpretive Data Percent cell count reference ranges are not reported, since discordance with absolute values may lead to misinterpretation of CBC data. Current Interpretive Data was last revised on 2017. Testing performed by: [place], [address] Lymphocyte pct 27.7 % [facility] ([place]) Comment: Interpretive Data Percent cell count reference ranges are not reported, since discordance with absolute values may lead to misinterpretation of CBC data. Current Interpretive Data was last revised on 2017. Testing performed by: [facility], [facility], [place], [address] Monocyte pct 11.4 % SABRA ROGERS ([place]) Comment: Interpretive Data Percent cell count reference ranges are not reported, since discordance with absolute values may lead to misinterpretation of CBC data. Current Interpretive Data was last revised on 2017. Testing performed by: [place], [address] Eosinophil pct 2.2 % [facility] ([place]) Comment: Interpretive Data Percent cell count reference ranges are not reported, since discordance with absolute values may lead to misinterpretation of CBC data. Current Interpretive Data was last revised on 2017. Testing performed by: [facility], [place], [address] Basophil pct 0.5 % SABRA ROGERS ([place]) Comment: Interpretive Data Percent cell count reference ranges are not reported, since discordance with absolute values may lead to misinterpretation of CBC data. Current Interpretive Data was last revised on 2017. Testing performed by: [facility], [place], [address] Blood 09/02/2024 9:45 AM CDT 09/02/2024 11:02 AM CDT us Chalino Chapa MD LAB BLOOD ORDERABLES Aylin l Result SABRA ROGERS ([place]) 1 [facility] Department [place] [address] * (ABNORMAL) CBC with auto differential (09/02/2024 9:45 AM CDT) WBC 1.84(L) 3.80 - 9.90 K/cumm Comment:Testing performed by : [facility], [place], [address] Hgb 7.5(L) 11.9 - 15.5 g/dL SABRA ROGERS ([place]) Comment:Testing performed by : [facility], [place], [address] Hct 23.0(L) 35.6 - 45.5 % SABRA ROGERS ([place]) Comment:Testing performed by : [facility], [place], Plt 165 150 - 400 K/cumm [facility] ([place]) Comment:Testing performed by : [facility], [place], MPV 12.1 9.1 - 12.3 fL [facility] ([place]) Comment:Testing performed by : [facility], [place], RBC 1.99(L) 3.90 - 5.20 M/cumm [facility] ([place]) Comment:Testing performed by : [facility], [place], MCV 115.6(H) 81.3 - 96.4 fL [facility] ([place]) Comment:Testing performed by : [facility], [place], MCH 37.7(H) 27.1 - 33.3 pg [facility] ([place]) Comment:Testing performed by : [place], MCHC 32.6 32.3 - 35.7 g/dL [facility] ([place]) Comment:Testing performed by : [place], RDW CV 15.1(H) 11.1 - 14.9 % [facility] ([place]) Comment:Testing performed by : [facility], [place], R[place] SD 61.1(H) 35.7 - 48.1 fL [facility] ([place]) Comment:Testing performed by : [facility], [place], NRBC abs 0.00 0.00 - 0.01 K/cumm [facility] ([place]) Comment:Testing performed by : [facility], [place], [address] Blood 09/02/2024 9:45 AM CDT 09/02/2024 11:04 AM CDT us Chalino Chapa MD LAB BLOOD ORDERABLES Aylin freedman Result [facility] ([place]) [address] [place] [address] [place] [address] * ABO/Rh (09/02/2024 9:45 AM CDT) ABO/Rh O Positive Comment:Testing performed by : [facility], [place], [address] Blood 09/02/2024 9:45 AM CDT 09/02/2024 10:27 AM CDT Narrative S[facility]RA [facility] ([place]) - 09/02/2024 10:59 AM CDT Has the patient had Daratumumab or Isatuximab in the past 6 months?->Unknown us Chalino Chapa MD LAB BLOOD BANK TEST ORDER LAITH Final Result SABRA [facility] ([place]) [address] [place] [address] [place] [address] * Crossmatch (09/02/2024 9:45 AM CDT) Crossmatch Compatible SABRA Silva ([place]) Unit number for crossmatch [id number] SABRA [facility] ([place]) Blood 09/02/2024 9:45 AM CDT 09/02/2024 10:27 AM CDT us Chalino Chapa MD LAB BLOOD BANK TEST ORDER LAITH Final Result SABRA [facility] ([place]) [address] [place] [address] Department [place] [address] * Antibody screen (09/02/2024 9:45 AM CDT) Rivera, indirect, Gel Interpretation Negative ABSC Comment:Testing performed by : [facility], [facility], [place], [address] Blood 09/02/2024 9:45 AM CDT 09/02/2024 10:27 AM CDT Narrative SABRA [facility] ([place]) - 09/02/2024 10:59 AM CDT Has the patient had Daratumumab or Isatuximab in the past 6 months?->Unknown us Chalino Chapa MD LAB BLOOD BANK TEST ORDER LAITH Final Result SABRA ROGERS ([place]) 1 [facility] Department [place] [address] * (ABNORMAL) Comprehensive metabolic panel (09/02/2024 9:45 AM CDT) Sodium 138 135 - 145 mmol/L Comment:Testing performed by : [facility], [facility], [place], [address] Potassium, pl 4.3 3.3 - 4.9 mmol/L [facility] ([place]) Comment:Testing performed by : [facility], [place], [address] Chloride 99 97 - 110 mmol/L [facility] ([place]) Comment:Testing performed by : [facility], [place], [address] CO2 28 22 - 32 mmol/L [facility] ([place]) Comment:Testing performed by : [facility], [facility], [place], [address] Anion gap 11 2 - 15 mmol/L [facility] ([place]) Comment:Testing performed by : [facility], [place], [address] BUN 15 6 - 25 mg/dL [facility] ([place]) Comment:Testing performed by : [facility], [place], [address] Creatinine 0.65 0.60 - 1.10 mg/dL [facility] ([place]) Comment:Testing performed by : [facility], [place], [address] Glucose 165 70 - 199 mg/dL [facility] ([place]) Comment: Interpretive Data Fasting glucose >/= 126 [...] was last revised 2022. Testing performed by: [facility], [place], [address] Calcium 8.6 8.5 - 10.3 mg/dL [facility] ([place]) Comment:Testing performed by : [facility], [place], [address] Bilirubin, total 0.7 0.1 - 1.2 mg/dL [facility] ([place]) Comment:Testing performed by : [facility], [place], [address] Protein, pl 6.3(L) 6.5 - 8.5 g/dL [facility] ([place]) Comment:Testing performed by : [facility], [place], [address] Albumin 4.0 3.5 - 5.0 g/dL [facility] ([place]) Comment:Testing performed by : [facility], [place], [address] Alk phos 66 40 - 130 Units/L [facility] ([place]) Comment:Testing performed by : [facility], [place], [address] ALT 45 7 - 45 Units/L [facility] ([place]) Comment:Testing performed by : [place], [address] AST 27 10 - 45 Units/L [facility] ([place]) Comment:Testing performed by : [place], [address] Blood 09/02/2024 9:45 AM CDT 09/02/2024 10:06 AM CDT us Gabriel Bruce NP LAB BLOOD ORDERABLES F inal Result SABRA [facility] ([place]) 1 [facility] Department [place] [address] * eGFR (08/08/2024 10:10 AM CDT) eGFR [...] was last reviewed 2021. Testing performed by: [place], [address] Blood 08/08/2024 10:1 0 AM CDT 08/08/2024 10:42 AM CDT us Chalino Chapa MD LAB BLOOD ORDERABLES Aylin l Result SABRA ROGERS ([place]) 1 [facility] Department [place] [address] * (ABNORMAL) Differential, auto (08/08/2024 10:10 AM CDT) Neutrophil abs 1.01(L) 1.50 - 6.50 K/cumm Comment:Testing performed by : [facility], [place], [address] Imm gran abs 0.02 0.00 - 0.10 K/cumm [facility] ([place]) Comment:Testing performed by : [place], [address] Lymphocyte abs 0.98 0.80 - 3.30 K/cumm SABRA ROGERS ([place]) Comment:Testing performed by : [facility], [place], [address] Monocyte abs 0.26 0.20 - 0.80 K/cumm S[facility]RA ROGERS ([place]) Comment:Testing performed by : [facility] [address], [place], [address] Eosinophil abs 0.06 0.00 - 0.50 K/cumm [facility] ([place]) Comment:Testing performed by : [facility], [place], [address] Basophil abs 0.02 0.00 - 0.10 K/cumm [facility] ([place]) Comment:Testing performed by : [place], [address] Neutrophil pct 42.8 % [facility] ([place]) Comment: Interpretive Data Percent cell count reference ranges are not reported, since discordance with absolute values may lead to misinterpretation of CBC data. Current Interpretive Data was last revised on 2017. Testing performed by: [place], [address] Imm gran pct 0.9 % [facility] ([place]) Comment: Interpretive Data Percent cell count reference ranges are not reported, since discordance with absolute values may lead to misinterpretation of CBC data. Current Interpretive Data was last revised on 2017. Testing performed by: [facility], [place], [address] Lymphocyte pct 41.7 % [facility] ([place]) Comment: Interpretive Data Percent cell count reference ranges are not reported, since discordance with absolute values may lead to misinterpretation of CBC data. Current Interpretive Data was last revised on 2017. Testing performed by: [place], [address] Monocyte pct 11.1 % [facility] ([place]) Comment: Interpretive Data Percent cell count reference ranges are not reported, since discordance with absolute values may lead to misinterpretation of CBC data. Current Interpretive Data was last revised on 2017. Testing performed by: [place], [address] Eosinophil pct 2.6 % [facility] ([place]) Comment: Interpretive Data Percent cell count reference ranges are not reported, since discordance with absolute values may lead to misinterpretation of CBC data. Current Interpretive Data was last revised on 2017. Testing performed by: [place], [address] Basophil pct 0.9 % [facility] ([place]) Comment: Interpretive Data Percent cell count reference ranges are not reported, since discordance with absolute values may lead to misinterpretation of CBC data. Current Interpretive Data was last revised on 2017. Testing performed by: [place], [address] Blood 08/08/2024 10:1 0 AM CDT 08/08/2024 10:53 AM CDT us Chalino Chapa MD LAB BLOOD ORDERABLES Aylin freedman Result [facility] ([place]) 1 [facility] Department [place] [address] * (ABNORMAL) CBC with auto differential (08/08/2024 10:10 AM CDT) WBC 2.35(L) 3.80 - 9.90 K/cumm Comment:Testing performed by : [place], [address] Hgb 9.7(L) 11.9 - 15.5 g/dL [facility] ([place]) Comment:Testing performed by : [place], [address] Hct 29.5(L) 35.6 - 45.5 % [facility] ([place]) Comment:Testing performed by : [place], [place], Plt 155 150 - 400 K/cumm [facility] ([place]) Comment:Testing performed by : [place], MPV 10.9 9.1 - 12.3 fL [facility] ([place]) Comment:Testing performed by : [place], [address] RBC 2.54(L) 3.90 - 5.20 M/cumm [facility] ([place]) Comment:Testing performed by : [place], [address] MCV 116.1(H) 81.3 - 96.4 fL [facility] ([place]) Comment:Testing performed by : [place], [address] MCH 38.2(H) 27.1 - 33.3 pg [facility] ([place]) Comment:Testing performed by : [facility], [place], MCHC 32.9 32.3 - 35.7 g/dL [facility] ([place]) Comment:Testing performed by : [facility], [place], RDW CV 14.6 11.1 - 14.9 % [facility] ([place]) Comment:Testing performed by : [facility], [place], R[place] SD 62.4(H) 35.7 - 48.1 fL [facility] ([place]) Comment:Testing performed by : [place], NRBC abs 0.00 0.00 - 0.01 K/cumm [facility] ([place]) Comment:Testing performed by : [facility], [place], Blood 08/08/2024 10:1 0 AM CDT 08/08/2024 10:53 AM CDT us Chalino Chapa MD LAB BLOOD ORDERABLES Aylin freedman Result [facility] ([place]) [address] [place] [address] Department [place] [address] * (ABNORMAL) Comprehensive metabolic panel (08/08/2024 10:10 AM CDT) Sodium 142 135 - 145 mmol/L Comment:Testing performed by : [facility], [place], [place], Potassium, pl 4.6 3.3 - 4.9 mmol/L [facility] ([place]) Comment:Testing performed by : [facility], [place], Chloride 104 97 - 110 mmol/L [facility] ([place]) Comment:Testing performed by : [facility], [place], CO2 30 22 - 32 mmol/L [facility] ([place]) Comment:Testing performed by : [place], [address] Anion gap 9 2 - 15 mmol/L [facility] ([place]) Comment:Testing performed by : [facility], [place], [address] BUN 17 6 - 25 mg/dL [facility] ([place]) Comment:Testing performed by : [facility], [place], [address] Creatinine 0.55(L) 0.60 - 1.10 mg/dL [facility] ([place]) Comment:Testing performed by : [facility], [place], [address] Glucose 94 70 - 199 mg/dL CERNER [...] was last revised 2022. Testing performed by: [place], [address] Calcium 9.2 8.5 - 10.3 mg/dL [facility] ([place]) Comment:Testing performed by : [place], [address] Bilirubin, total 0.5 0.1 - 1.2 mg/dL [facility] ([place]) Comment:Testing performed by : [place], [address] Protein, pl 6.5 6.5 - 8.5 g/dL [facility] ([place]) Comment:Testing performed by : [place], [address] Albumin 4.3 3.5 - 5.0 g/dL [facility] ([place]) Comment:Testing performed by : [facility], [place], [address] Alk phos 82 40 - 130 Units/L [facility] ([place]) Comment:Testing performed by : [facility], [place], [address] ALT 52(H) 7 - 45 Units/L [facility] ([place]) Comment:Testing performed by : [facility], [facility], [place], [address] AST 24 10 - 45 Units/L [facility] ([place]) Comment:Testing performed by : [facility], [facility], [place], [address] Blood 08/08/2024 10:1 0 AM CDT 08/08/2024 10:42 AM CDT us Chalino Chapa MD LAB BLOOD ORDERABLES Aylin freedman Result Performing Organization Address City/State/[facility] Co de Phone Number [facility] ([place]) [address] [place] [address] Department [place] [address] from Last 3 Months Insurance MEDICARE MEDICARE [facility] MEDICARE SUPPLEMENT MEDICARE [facility] MEDICARE SUPPLEMENT Advance Directives For more information, please contact: [phone] Documents on File Type Date Recorded Patient Clinical Laboratory Aides Teacher Expl anation ADVANCE DIRECTIVE 12/20/2023 8:01 AM Power of Molding Plasterer-Medical * Full Code (Latest Code Status on File) Date Activated Date Inactivated Comments 09/28/2024 7:50 PM 10/07/2024 7:51 PM * Full Code Date Activated Date Inactivated Comments 12/11/2023 12:19 PM 12/19/2023 6:45 PM Care Teams Help Desk Support Specialist Relationship Specialty Start Date End Date Bryan Davey DO PCP - General Internal Medicine 11/14/23 Prateek King MD [address] [place] [address] Consulting Physician Urology 10/07/24 Sherman Alvarez DO [address] [place] [id number] Medical Oncologist/Rack Production Worker Hematology and Oncology 10/07/24
--- OUTSIDE RECORDS SUMMARY | 2024-10-28 10:32 | XMS_ITS | Clinical Summary ---
Author Organization [facility] Address [address], [address] [address] Phone Care Team Providers Care Production Broacher Name Role Phone ReinaldotravonMervat APRN Primary Care Provider [phone] Medications polyethylene glycol (MIRALAX) Powder Use entire [...] Health Maintenance Due Date Last Done Comments Hepatitis C Virus (HCV) Screening 1940 TdaP Immunization 1940 Pneumococcal Immunization (5 0+ years) (1 of 1 - PCV) 1991 Zoster Immunization (1 of 2) 1991 Respiratory Syncytial Virus (RSV) Immunization (Adult) (1 - 1-dose 75+ series) 02/09/2016 SARS-COV-2 Immunization ( - season) 2023 Influenza Immunization (#1) 2024 Hepatitis B Immunization Aged Out No longer eligible based on patient's age to complete this topic Human Papillomavirus (HPV) Immunization Aged Out No longer eligible b ased on patient's age to complete this topic Meningococcal Immunization (ACWY) Aged Out No longer eligible based on patient's age to complete this topic Rotavirus Immunization Aged Out No lo nger eligible based on patient's age to complete this topic Insurance MEDICARE [facility] Care Teams Production Broacher Relationship Specialty Start Date End Date Mervat Kelley APRN PCP - General Advanced Practice Nurse 06/12/17
--- OUTSIDE RECORDS SUMMARY | 2024-10-28 10:32 | XMS_ITS ---
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 Decitabine (D1-5) 28 Day Cycles - AML or MDS* Plan Start Date:11/26/2023 Plan Provider:Chalino Chapa MD Linked Problems MDS (myelodysplastic syndrom e) (HCC) Treatment Medications Current Day (Day 1 , Cycle 4 - Planned for 10/07/2024) Next Day (Day 2, Cycle 4 - Planned for 10/08/2024) decitabine (DACOGEN)decitabine (DACOGEN) IVPB decitabine (DACOGEN) 23.5 [...] Treatment Medications Discontinue Reason Plan Provider Adult Non-ONC - Blood and/or Platelet Administration for Outpatient 10/17/2024 10/17/2024 No medications scheduled. Therapy Complete Chailno Chapa MD Adult ONE TIME USE - Blood and/or Platelet Administration for Outpatient 10/17/2024 10/14/2024 No medications scheduled. Provider Discretion Chalino Chapa MD Adult ONE TIME USE - Blood and/or Platelet Administration for Outpatient 09/23/2024 09/23/2024 No medications scheduled. Therapy Complete Chalino Chapa MD Adult Non-ONC - Blood and/or Platelet Administration for Outpatient 09/16/2024 09/23/2024 No medications scheduled. Therapy Complete Chalino Chapa MD Adult ONE TIME USE - Blood and/or Platelet Administration for Outpatient 09/02/2024 09/09/2024 No medications scheduled. Therapy Complete Chalino Chapa MD Adult ONE TIME USE - Blood and/or Platelet Administration for Outpatient 09/02/2024 08/29/2024 No medications scheduled. Therapy Complete Chalino Chapa [...] (06/06/2018): Added automatically from request for surgery [id number]
--- OUTSIDE RECORDS SUMMARY | 2024-10-28 10:32 | XMS_ITS | Clinical Summary ---
Author Organization [facility] Facility Address [address] [facility] [address] [place] [address] Care Team Providers Care [employer] Saw Operator Name Role Phone Unavailable Primary Care Provider Unavailabl e Allergies Active Allergy Reactions Criticality Noted Date Comments Cephalexin Other (see comments) 06/27/2020 Codeine Other (see comments) 06/27/2020 Morphine Other (see comments) 06/27/2020 Medications * This document contains information received from the source organization and may not represent a complete record from that organization. spironolactone (ALDACTONE) 25 MG tablet Take 1 tablet by mouth twice daily 180 tablet 3 09/27/2023 Active Encounters * This document contains information received from the source organization and may not represent a complete record from that organization. Date Type Department Care Team Description 10/07/2024 Documentation Only [facility] [address] [place] [address] Ricky Moseley MD 09/30/2024 Orders Only [facility] [address] [place] [address] Nargis Helms MA 08/29/2024 Documentation Only [facility] [address] [place] [address] Ricky Moseley MD from Last 3 Months Social History Tobacco Use Types Packs/Day Years Used Date Smoking Tobacco: Never Assessed Comments Unknown Sex and Gender Information Value Date Recorded Sex Assigned at Not on file Legal Sex Female 6:09 PM EDT Gender Identity Not on file Sexual Orientation Not on file Plan of Treatment Health Maintenance Due Date Last Done Comments Influenza Vaccine (#1) 2024 9, 02/06/2018, 12/02/2016, Additional history exists Pneumococcal Vaccine: 50+ Years Completed 10/26/2020, 05/18/2016, 04/03/2016, Additional history exists Pneumococcal Vaccine: Peds (0 to 5 Years) and At-Risk Patients (6 to 49 Years) Discontinued 10/26/2020, 05/18/2016, 04/03/2016, Additional history exists Hepatitis B Vaccine Aged Out No longe r eligible based on patient's age to complete this topic
--- OUTSIDE RECORDS SUMMARY | 2024-10-28 10:32 | XMS_ITS | Clinical Summary ---
Author Organization [facility] Medical Office Building B Address [address] [place] [address] Care Team Providers Care Registered Nurse Renal Name Role Phone Bryan Davey DO Primary Care Provider [phone] Prateek King MD Unavailable Sherman Alvarez DO Unavailable [phone] Allergies Active Allergy Reactions Criticality Noted Date [...] 10 mg tabletIndicati ons:MDS (myelodysplast ic syndrome) ([facility]) Take 1 tablet (10 mg total) by [...] 1 tablet (75 mcg total) by mouth early childhood before breakfast 30 tablet 4 Active oxyBUTYnin XL (DITROPAN-XL) 5 mg 24 hr tablet 4 Active acyclovir (ZOVIRAX) 400 mg tabletIndicati ons:MDS (myelodysplast ic syndrome) (HCC) TAKE 1 TABLET BY MOUTH THREE TIMES DAILY FOR SHINGLES PREVENTION. 90 tablet 5 Active levothyroxine (SYNTHROID) 75 mcg tablet Take 1 tablet (75 mcg total) by mouth early childhood before breakfast Active docusate sodium (COLACE) 250 [...] (06/06/2018): Added automatically from request for surgery [id number] Encounters Date Type Department Care Team Description 10/28/[address] [facility] [address] [place] [address] Medical Office dg [address] [place] [address] Chalino Chapa MD MDS (myelodysplastic syndrome) (HCC) (Primary Dx); Chronic anemia 10/21/2024 9:00 AM CDT Infusion [address] [place] [address] MDS (myelodysplastic syndrome) (HCC) 10/21/2024 8:45 AM CDT Office Visit [facility] [address] [place] [address] Office dg [address] [place] [address] Milla Armenta, CLAUDIA Myelodysplastic syndrome (HCC) (Primary Dx); MDS (myelodysplastic syndrome) (HCC) 10/21/2024 8:15 AM CDT Lab [address] [place] [address] MDS (myelodysplastic syndrome) (HCC) 10/17/2024 12:30 PM CDT Infusion [address] [place] [address] 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); MDS (myelodysplastic syndrome) (HCC); Encounter for care related to Port-a-Cath 10/17/2024 11:15 AM CDT Lab [address] [place] [address] MDS (myelodysplastic syndrome) (HCC) 10/17/[address] [facility] [address] [place] [address] Medical Office [facility] [address] [place] [address] Chalino Chapa MD MDS (myelodysplastic syndrome) (HCC) (Primary Dx); Anemia in neoplastic disease 10/14/2024 8:30 AM CDT Infusion [address] [place] [address] MDS (myelodysplastic syndrome) (HCC) 10/14/2024 8:00 AM CDT Lab [address] [place] [address] MDS (myelodysplastic syndrome) (HCC) 10/14/2024 8:00 AM CDT Office Visit [facility] [address] [place] [address] Medical Office dg [address] [place] [address] Chalino Chapa MD MDS (myelodysplastic syndrome) (HCC) (Primary Dx); Interstitial lung disease (HCC) 10/14/[address] [address] Yadi Gtz RN 10/11/2024 11:45 AM CDT Lab [address] [place] [address] MDS (myelodysplastic syndrome) (HCC) 10/11/[address] [facility] [address] [place] [address] Office [facility] [address] [place] [address] Radha Brink RN 10/11/[address] 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 gene (HCC); Anemia, unspecified type; MDS (myelodysplastic syndrome) (HCC) [D46.9]; Pancytopenia due to chemotherapy [D61.810]; Abnormal CT of the chest [R93.89] Discharge Disposition: Discharge to home or self care 09/23/2024 9:00 AM CDT Infusion [address] [place] [address] 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); MDS (myelodysplastic syndrome) (HCC); Chronic anemia 09/23/2024 8:15 AM CDT Lab [address] [place] [address] Anemia, unspecified type (Primary Dx); MDS (myelodysplastic syndrome) (HCC) 09/23/[address] [place] [address] Lourdes Hudson RN 09/23/[address] [facility] [address] [place] [address] Office [facility] [address] [place] [address] Chalino Chapa MD 09/23/[address] [facility] [address] [place] [address] [address] [place] [address] Chalino Chapa MD MDS (myelodysplastic syndrome) (HCC) (Primary Dx); Chronic anemia 09/16/2024 9:30 AM CDT Infusion [address] [place] [address] 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); MDS (myelodysplastic syndrome) (HCC); Encounter for care related to Port-a-Cath 09/16/2024 9:15 AM CDT Office Visit [facility] [address] [place] [address] Office [facility] [address] [place] [address] Milla Armenta, CLAUDIA MDS (myelodysplastic syndrome) (HCC) (Primary Dx) 09/16/2024 8:45 AM CDT Lab [address] [place] [address] MDS (myelodysplastic syndrome) (HCC) 09/16/[address] [place] [address] Chalino Chapa MD 09/13/2024 10:00 AM CDT Infusion [address] [place] [address] MDS (myelodysplastic syndrome) (HCC) (Primary Dx); Encounter for care related to Port-a-Cath 09/13/[address] [facility] [address] [place] [address] Medical Office [facility] [address] [place] [address] Clau Cabral CLT 09/12/2024 11:00 AM CDT Infusion [address] [place] [address] MDS (myelodysplastic syndrome) (HCC) (Primary Dx); Encounter for care related to Port-a-Cath 09/11/2024 10:00 AM CDT Infusion [address] [place] [address] MDS (myelodysplastic syndrome) (HCC) (Primary Dx); Encounter for care related to Port-a-Cath 09/11/[address] [facility] [address] [place] [address] [address] [place] [address] Milla Armenta, CLAUDIA 09/10/2024 11:30 AM CDT Infusion [address] [place] [address] MDS (myelodysplastic syndrome) (HCC) (Primary Dx); Encounter for care related to Port-a-Cath 09/09/2024 9:30 AM CDT Infusion [address] [place] [address] MDS (myelodysplastic syndrome) (HCC) (Primary Dx); Encounter for care related to Port-a-Cath 09/09/2024 9:15 AM CDT Office Visit [facility] [address] [place] [address] Medical Office [facility] [address] [place] [address] Milla Armenta, ARMATURE [employer] MDS (myelodysplastic syndrome) (HCC) (Primary Dx) 09/09/2024 8:45 AM CDT Lab [address] [place] [address] MDS (myelodysplastic syndrome) (HCC) 09/02/2024 10:30 AM CDT Infusion [address] [place] [address] MDS (myelodysplastic syndrome) (HCC) (Primary Dx); Anemia in neoplastic disease 09/02/2024 10:00 AM CDT Office Visit [facility] [address] [place] [address] Medical [address] [place] [address] Chalino Chapa MD MDS (myelodysplastic syndrome) (HCC) (Primary Dx) 09/02/2024 9:30 AM CDT Lab [address] [place] [address] MDS (myelodysplastic syndrome) (HCC) 08/30/[address] [facility] [address] [place] [address] Medical Office [facility] B [facility] [address] [place] [address] Clau Cabral, CLT 08/08/2024 10:30 AM CDT Clinical Support [address] [place] [address] Age-related osteoporosis without current pathological fracture (Primary Dx); MDS (myelodysplastic syndrome) (HCC); Encounter for care related to Port-a-Cath 08/08/2024 10:15 AM CDT Office Visit [facility] [address] [place] [address] Medical Office [facility] B [facility] [address] [place] [address] Milla Armenta, [employer] MDS (myelodysplastic syndrome) (HCC) (Primary Dx) 08/08/2024 9:45 AM CDT Lab [address] [place] [address] MDS (myelodysplastic syndrome) (HCC) from Last 3 [...] eft knee, current 06/06/2018 Added automatically from [employer] for surgery [id number] PONV (postoperative nausea a nd vomiting) Anxiety MDS (myelodysplastic syndrome) (HCC) MDS (myelodysplastic syndrome) (HCC) MDS (myelodysplastic syndrome) (HCC) MDS (myelodysplastic syndrome) (HCC) Anemia MDS (myelodysplastic syndrome) (HCC) MDS (myelodysplastic syndrome) (HCC) Family History Medical History Relation Name Comments Heart disease Neg Hx Hypertension Neg Hx Social History Tobacco Use Types Packs/Day Years Used Date Smoking Tobacco: Never Smokeless Tobacco: Never Tobacco Cessation:Counseling Given: Not Answered Alcohol Use Standard Drinks/Week Comments Yes 0 (1 standard drink = 0.6 oz pur e alcohol) [employer] Answer Date Recorded In the past 12 months has [employer], oil, or water [employer] threatened to shut off services in your [...] week 09/30/2024 How often do you attend [facility] or pentecostalism services? Never 09/30/2024 Do you belong to any clubs o r organizations such as methodist groups, unions, fraternal or athletic groups, or [...] any time in the past 12 m [facility], were you homeless or living in a intermediate (including now)? No 10/02/2024 Personal Safety Answer Date Recorded Have you ever been in or are you currently in a harmful physical or emotional relationship or is someone making you feel afraid or unsafe? 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 Gender Identity Not on file Sexual Orientation [...] 10/14/2024 8:03 AM CDT Plan of Treatment Health Maintenance Due Date Last Done Comments Depression Screening 1940 Osteoporosis Screening-Bone Density Scan 1941 Hepatitis B Screening 1959 Well Visit 65+ 2006 Covid-19 Vaccine (2023-2 5 season) 2023 01/23/2022, 09/24/2021, 02/01/2021, Additional history exists Influenza Vaccine (#1) 2024 , 01/07/2022, 01/15/2021, Additional history exists Fall Risk Assessment 10/07/2025 10/07/2024, 04/30/2024, 04/29/2024, Additional history exists DTaP/Tdap/Td Vaccine (2 - Td or Tdap) 09/08/2029 09/09/2019 Pneumococcal vaccine 65+ Completed 021, 05/18/2016, 04/03/2016, Additional history exists Zoster Vaccine Completed 03/29/2022, 10/02, 04/03/2016 Medical Devices Implanted Type Area [employer] Analyst Device Identifier Shelf Expiration Date Model / Serial / Lot Emre Saunders Powerport Mri Airguard 8fr 1 Lumen Attachable Catheter Latex Free [id number] - [id number] Implanted:Qty: 1 on 11/20/2023 by Shade Red MD at [facility] Right: Chest Emre Chaparrita 09/30/2024 [id number] / / [id number] Procedures Procedure Name Priority Date/Time Associated Diagnosis [...] 8:11 AM CDT DIFFERENTIAL AUTO Routine 09/29/2024 8:1 1 AM CDT TROPONIN T HIGH-SENSITIVITY 6-HOUR Timed [...] was last reviewed 2021. Testing performed by: [place], [address] Blood 10/21/2024 8:25 AM CDT 10/21/2024 8:36 AM CDT us Chalino Chapa MD LAB BLOOD ORDERABLES Aylin freedman Result [facility] Department [place] [address] * (ABNORMAL) Differential, auto (10/21/2024 8:25 AM CDT) Neutrophil abs 0.69(L) 1.50 - 6.50 K/cumm Comment:Testing performed by : [place], [address] Imm gran abs 0.01 0.00 - 0.10 K/cumm [facility] ([place]) Comment:Testing performed by : [place], [address] Lymphocyte abs 0.68(L) 0.80 - 3.30 K/cumm [facility] ([place]) Comment:Testing performed by : [facility], [facility], [place], [address] Monocyte abs 0.16(L) 0.20 - 0.80 K/cumm [facility] ([place]) Comment:Testing performed by : [facility], [facility], [place], [address] Eosinophil abs 0.00 0.00 - 0.50 K/cumm [facility] ([place]) Comment:Testing performed by : [facility], [facility], [place], [address] Basophil abs 0.00 0.00 - 0.10 K/cumm [facility] ([place]) Comment:Testing performed by : [facility], [facility], [place], [address] Neutrophil pct 44.8 % [facility] ([place]) Comment: Interpretive Data Percent cell count reference ranges are not reported, since discordance with absolute values may lead to misinterpretation of CBC data. Current Interpretive Data was last revised on 2017. Testing performed by: [facility], [facility], [place], [address] Imm gran pct 0.6 % [facility] ([place]) Comment: Interpretive Data Percent cell count reference ranges are not reported, since discordance with absolute values may lead to misinterpretation of CBC data. Current Interpretive Data was last revised on 2017. Testing performed by: [facility], [facility], [place], [address] Lymphocyte pct 44.2 % [facility] ([place]) Comment: Interpretive Data Percent cell count reference ranges are not reported, since discordance with absolute values may lead to misinterpretation of CBC data. Current Interpretive Data was last revised on 2017. Testing performed by: [facility], [place], [address] Monocyte pct 10.4 % [facility] ([place]) Comment: Interpretive Data Percent cell count reference ranges are not reported, since discordance with absolute values may lead to misinterpretation of CBC data. Current Interpretive Data was last revised on 2017. Testing performed by: [facility], [place], [address] Eosinophil pct 0.0 % [facility] ([place]) Comment: Interpretive Data Percent cell count reference ranges are not reported, since discordance with absolute values may lead to misinterpretation of CBC data. Current Interpretive Data was last revised on 2017. Testing performed by: [place], [address] Basophil pct 0.0 % [facility] ([place]) Comment: Interpretive Data Percent cell count reference ranges are not reported, since discordance with absolute values may lead to misinterpretation of CBC data. Current Interpretive Data was last revised on 2017. Testing performed by: [place], [address] Blood 10/21/2024 8:25 AM CDT 10/21/2024 9:43 AM CDT us Chalino Chapa MD LAB BLOOD ORDERABLES Aylin freedman Result [facility] ([place] 1 [facility] Department [place] [address] * (ABNORMAL) CBC with auto differential (10/21/2024 8:25 AM CDT) WBC 1.54(L) 3.80 - 9.90 K/cumm Comment:Testing performed by : [place], [address] Hgb 8.5(L) 11.9 - 15.5 g/dL [facility] ([place]) Comment:Testing performed by : [place], [address] Hct 26.5(L) 35.6 - 45.5 % [facility] ([place]) Comment:Testing performed by : [place], [address] Plt 153 150 - 400 K/cumm [facility] ([place]) Comment:Testing performed by : [place], [address] MPV 11.8 9.1 - 12.3 fL [facility] ([place]) Comment:Testing performed by : [facility], [place], [address] RBC 2.67(L) 3.90 - 5.20 M/cumm [facility] ([place]) Comment:Testing performed by : [facility], [place], [address] MCV 99.3(H) 81.3 - 96.4 fL [facility] ([place]) Comment:Testing performed by : [facility], [place], [place], MCH 31.8 27.1 - 33.3 pg [facility] ([place]) Comment:Testing performed by : [facility], [place], [place], MCHC 32.1(L) 32.3 - 35.7 g/dL [facility] ([place]) Comment:Testing performed by : [facility], [place], [place], R[place] CV 16.9(H) 11.1 - 14.9 % [facility] ([place]) Comment:Testing performed by : [facility], [place], [place] SD 52.5(H) 35.7 - 48.1 fL [facility] ([place]) Comment:Testing performed by : [facility], [place], [address] NRBC abs 0.00 0.00 - 0.01 K/cumm [facility] ([place]) Comment:Testing performed by : [facility], [place], [address] Morphologic Screen Results confirmed by manual morphology review. [facility] ([place]) Comment:Testing performed by : [facility], [place], [address] Blood 10/21/2024 8:25 AM CDT 10/21/2024 9:43 AM CDT us Chalino Chapa MD LAB BLOOD ORDERABLES Aylin l Result [facility] ([place]) [address] [place] [address] Department of Laboratories [place] [id number] * (ABNORMAL) Comprehensive metabolic panel (10/21/2024 8:25 AM CDT) Sodium 139 135 - 145 mmol/L [facility] ([place]) Potassium, pl 4.2 3.3 - 4.9 mmol/L [facility] ([place]) Chloride 99 97 - 110 [...] Aylin freedman Result [facility] ([place]) 1 [facility] Department [place] [address] * Transfuse RBC (10/17/2024 2:54 PM CDT) Blood us Chalino Chapa MD BLOOD TRANSFUSION ORDERAB LES Final Result * Prepare RBC (10/17/2024 12:24 PM CDT) Unit Number [id number] Product code [id number] [facility] ([place]) Blood Expiration Date [id number] [facility] ([place]) Product Blood Type (for scanning) 5100 [facility] ([place]) Product Blood Type OPOS [facility] ([place]) Dispense Status DISPENSED [facility] ([place]) us Chalino Chapa MD BLOOD BANK PRODUCT ORDERA BLES Final Result [facility] ([place]) 1 [facility] [place] [address] * Prepare RBC: 1 Units (10/17/2024 12:19 PM CDT) Pathologist [facility] Units requested 1 Comment:Testing performed by : [facility], [place], [address] Units requested Ready [facility] ([place]) Comment:Testing performed by : [place], [address] Blood 10/17/2024 12:1 9 PM CDT 10/17/2024 12:19 PM CDT Narrative [facility] ([place]) - 10/17/2024 12:19 PM CDT Are special requirements needed? (All products are leukoreduced and CMV- safe)->No us Chalino Chapa MD BLOOD BANK PRODUCT ORDERA BLES Final Result [facility] ([place]) 1 [facility] [place] [address] * eGFR (10/17/2024 11:10 AM CDT) Pathologist [facility] eGFR 89 >=60 mL/min/1. 73 m2 Comment: [...] was last reviewed 2021. Testing performed by: [place], [address] Blood 10/17/2024 11:1 0 AM CDT 10/17/2024 11:34 AM CDT us Chalino Chapa MD LAB BLOOD ORDERABLES Aylin l Result [facility] ([place]) 1 [facility] Department [place] [address] * (ABNORMAL) Differential, auto (10/17/2024 11:10 AM CDT) Neutrophil abs 0.64(L) 1.50 - 6.50 K/cumm Comment:Testing performed by : [place], [address] Imm gran abs 0.01 0.00 - 0.10 K/cumm [facility] ([place]) Comment:Testing performed by : [place], [address] Lymphocyte abs 0.84 0.80 - 3.30 K/cumm [facility] ([place]) Comment:Testing performed by : [facility], [place], [address] Monocyte abs 0.20 0.20 - 0.80 K/cumm [facility] ([place]) Comment:Testing performed by : [facility], [place], [address] Eosinophil abs 0.00 0.00 - 0.50 K/cumm [facility] ([place]) Comment:Testing performed by : [facility], [place], [address] Basophil abs 0.00 0.00 - 0.10 K/cumm [facility] ([place]) Comment:Testing performed by : [place], [address] Neutrophil pct 37.9 % [facility] ([place]) Comment: Interpretive Data Percent cell count reference ranges are not reported, since discordance with absolute values may lead to misinterpretation of CBC data. Current Interpretive Data was last revised on 2017. Testing performed by: [place], [address] Imm gran pct 0.6 % [facility] ([place]) Comment: Interpretive Data Percent cell count reference ranges are not reported, since discordance with absolute values may lead to misinterpretation of CBC data. Current Interpretive Data was last revised on 2017. Testing performed by: [facility], [place], [address] Lymphocyte pct 49.7 % [facility] ([place]) Comment: Interpretive Data Percent cell count reference ranges are not reported, since discordance with absolute values may lead to misinterpretation of CBC data. Current Interpretive Data was last revised on 2017. Testing performed by: [place], [address] Monocyte pct 11.8 % [facility] ([place]) Comment: Interpretive Data Percent cell count reference ranges are not reported, since discordance with absolute values may lead to misinterpretation of CBC data. Current Interpretive Data was last revised on 2017. Testing performed by: [place], [address] Eosinophil pct 0.0 % [facility] ([place]) Comment: Interpretive Data Percent cell count reference ranges are not reported, since discordance with absolute values may lead to misinterpretation of CBC data. Current Interpretive Data was last revised on 2017. Testing performed by: [place], [address] Basophil pct 0.0 % [facility] ([place]) Comment: Interpretive Data Percent cell count reference ranges are not reported, since discordance with absolute values may lead to misinterpretation of CBC data. Current Interpretive Data was last revised on 2017. Testing performed by: [place], [address] Blood 10/17/2024 11:1 0 AM CDT 10/17/2024 12:21 PM CDT us Chalino Chapa MD LAB BLOOD ORDERABLES Aylin freedman Result [facility] ([place]) [address] [place] [address] Department [place] [address] * (ABNORMAL) CBC with auto differential (10/17/2024 11:10 AM CDT) WBC 1.69(L) 3.80 - 9.90 K/cumm Comment:Testing performed by : [place], [address] Hgb 7.3(L) 11.9 - 15.5 g/dL [facility] ([place]) Comment:Testing performed by : [place], [address] Hct 22.8(L) 35.6 - 45.5 % [facility] ([place]) Comment:Testing performed by : [place], [address] Plt 144(L) 150 - 400 K/cumm [facility] ([place]) Comment:Testing performed by : [place], [address] MPV 12.0 9.1 - 12.3 fL [facility] ([place]) Comment:Testing performed by : [place], [address] RBC 2.29(L) 3.90 - 5.20 M/cumm [facility] ([place]) Comment:Testing performed by : [place], [address] MCV 99.6(H) 81.3 - 96.4 fL [facility] ([place]) Comment:Testing performed by : [place], [address] MCH 31.9 27.1 - 33.3 pg [facility] ([place]) Comment:Testing performed by : [facility], [place], [address] MCHC 32.0(L) 32.3 - 35.7 g/dL [facility] ([place]) Comment:Testing performed by : [facility], [place], [address] RDW CV 16.2(H) 11.1 - 14.9 % [facility] ([place]) Comment:Testing performed by : [facility], [facility], [place], [address] RDW SD 53.1(H) 35.7 - 48.1 fL [facility] ([place]) Comment:Testing performed by : [facility], [place], [address] NRBC abs 0.00 0.00 - 0.01 K/cumm [facility] ([place]) Comment:Testing performed by : [facility], [place], [address] Morphologic Screen Results confirmed by manual morphology review. SABRA ROGERS ([place]) Comment:Testing performed by : [facility], [place], [address] Blood 10/17/2024 11:1 0 AM CDT 10/17/2024 12:21 PM CDT us Chalino Chapa MD LAB BLOOD ORDERABLES Edit ed Result - Final SABRA ROGERS ([place]) [address] [place] [address] Department [place] [address] * ABO/Rh (10/17/2024 11:10 AM CDT) ABO/Rh O Positive Comment:Testing performed by : [facility], [place], [address] Blood 10/17/2024 11:1 0 AM CDT 10/17/2024 11:43 AM CDT Narrative SABRA ROGERS ([place]) - 10/17/2024 12:17 PM CDT Has the patient had Daratumumab or Isatuximab in the past 6 months?->Unknown Witness: Ynes Jensen IFS Chalino Chapa MD LAB BLOOD BANK TEST ORDER LAITH Final Result Performing Organization Address City/[facility]/ZIP Co de Phone Number [facility] ([place]) [address] [place] [address] * Crossmatch (10/17/2024 11:10 AM CDT) Crossmatch Compatible SABRA Silva ([place]) Unit number for crossmatch [id number] [facility] ([place]) Blood 10/17/2024 11:1 0 AM CDT 10/17/2024 11:43 AM CDT Chalino Chapa MD LAB BLOOD BANK TEST ORDER LAITH Final Result Performing Organization Address [facility] Co de Phone Number [facility] ([place]) [address] [place] [id number] * Antibody screen (10/17/2024 11:10 AM CDT) Rivera, indirect, Gel Interpretation Negative ABSC Comment:Testing performed by : [facility], [facility], [place], [address] Blood 10/17/2024 11:1 0 AM CDT 10/17/2024 11:43 AM CDT Narrative [facility] ([place]) - 10/17/2024 12:17 PM CDT Has the patient had Daratumumab or Isatuximab in the past 6 months?->Unknown Chalino Chapa MD LAB BLOOD BANK TEST ORDER LAITH Final Result Performing Organization Address [facility] Co de Phone Number [facility] ([place]) [address] [place] [address] * (ABNORMAL) Comprehensive metabolic panel (10/17/2024 11:10 AM CDT) Sodium 139 135 - 145 mmol/L [facility] ([place]) Potassium, pl 4.0 3.3 - 4.9 mmol/L [...] MD LAB BLOOD ORDERABLES Aylin freedman Result [facility] ([place]) 1 [facility] Department [place] [address] * (ABNORMAL) Differential, auto (10/14/2024 9:17 AM CDT) Neutrophil abs 0.51(L) 1.50 - 6.50 K/cumm Comment:Testing performed by : [place], [address] Imm gran abs 0.02 0.00 - 0.10 K/cumm [facility] ([place]) Comment:Testing performed by : [facility], [place], [address] Lymphocyte abs 0.81 0.80 - 3.30 K/cumm [facility] ([place]) Comment:Testing performed by : [facility], [facility], [place], [address] Monocyte abs 0.13(L) 0.20 - 0.80 K/cumm [facility] ([place]) Comment:Testing performed by : [facility], [place], [address] Eosinophil abs 0.00 0.00 - 0.50 K/cumm [facility] ([place]) Comment:Testing performed by : [facility], [place], [address] Basophil abs 0.01 0.00 - 0.10 K/cumm [facility] ([place]) Comment:Testing performed by : [place], [address] Neutrophil pct 34.4 % [facility] ([place]) Comment: Interpretive Data Percent cell count reference ranges are not reported, since discordance with absolute values may lead to misinterpretation of CBC data. Current Interpretive Data was last revised on 2017. Testing performed by: [place], [address] Imm gran pct 1.4 % [facility] ([place]) Comment: Interpretive Data Percent cell count reference ranges are not reported, since discordance with absolute values may lead to misinterpretation of CBC data. Current Interpretive Data was last revised on 2017. Testing performed by: [facility], [place], [address] Lymphocyte pct 54.7 % [facility] ([place]) Comment: Interpretive Data Percent cell count reference ranges are not reported, since discordance with absolute values may lead to misinterpretation of CBC data. Current Interpretive Data was last revised on 2017. Testing performed by: [facility], [facility], [place], [address] Monocyte pct 8.8 % [facility] ([place]) Comment: Interpretive Data Percent cell count reference ranges are not reported, since discordance with absolute values may lead to misinterpretation of CBC data. Current Interpretive Data was last revised on 2017. Testing performed by: [facility], [place], [address] Eosinophil pct 0.0 % [facility] ([place]) Comment: Interpretive Data Percent cell count reference ranges are not reported, since discordance with absolute values may lead to misinterpretation of CBC data. Current Interpretive Data was last revised on 2017. Testing performed by: [facility], [place], [address] Basophil pct 0.7 % [facility] ([place]) Comment: Interpretive Data Percent cell count reference ranges are not reported, since discordance with absolute values may lead to misinterpretation of CBC data. Current Interpretive Data was last revised on 2017. Testing performed by: [facility], [place], [address] Blood 10/14/2024 9:17 AM CDT 10/14/2024 9:17 AM CDT us Chalino Chapa MD LAB BLOOD ORDERABLES Aylin l Result SABRA ROGERS ([place]) 1 [facility] Department [place] [address] * (ABNORMAL) CBC with auto differential (10/14/2024 9:17 AM CDT) WBC 1.48(L) 3.80 - 9.90 K/cumm Comment:Testing performed by : [facility], [place], [address] Hgb 7.8(L) 11.9 - 15.5 g/dL SABRA ROGERS ([place]) Comment:Testing performed by : [facility], [place], [address] Hct 24.6(L) 35.6 - 45.5 % SABRA ROGERS ([place]) Comment:Testing performed by : [facility], [place], Plt 142(L) 150 - 400 K/cumm [facility] ([place]) Comment:Testing performed by : [facility], [place], MPV 12.2 9.1 - 12.3 fL [facility] ([place]) Comment:Testing performed by : [facility], [place], RBC 2.54(L) 3.90 - 5.20 M/cumm [facility] ([place]) Comment:Testing performed by : [facility], [place], MCV 96.9(H) 81.3 - 96.4 fL [facility] ([place]) Comment:Testing performed by : [facility], [place], MCH 30.7 27.1 - 33.3 pg [facility] ([place]) Comment:Testing performed by : [place], MCHC 31.7(L) 32.3 - 35.7 g/dL [facility] ([place]) Comment:Testing performed by : [facility], [place], RDW CV 15.6(H) 11.1 - 14.9 % [facility] ([place]) Comment:Testing performed by : [facility], [place], RDW SD 53.3(H) 35.7 - 48.1 fL [facility] ([place]) Comment:Testing performed by : [facility], [place], [address] NRBC abs 0.00 0.00 - 0.01 K/cumm [facility] ([place]) Comment:Testing performed by : [facility], [place], [address] Blood 10/14/2024 9:17 AM CDT 10/14/2024 9:17 AM CDT us Chalino Chapa MD LAB BLOOD ORDERABLES Aylin freedman Result [facility] ([place]) 1 [facility] Department [place] [address] * eGFR (10/14/2024 8:00 AM CDT) eGFR [...] was last reviewed 2021. Testing performed by: [place], [address] Blood 10/14/2024 8:00 AM CDT 10/14/2024 1:44 PM CDT us Chalino Chapa MD LAB BLOOD ORDERABLES Aylin l Result [facility] ([place]) 1 [facility] Department [place] [address] * (ABNORMAL) Comprehensive metabolic panel (10/14/2024 8:00 AM CDT) Sodium 138 135 - 145 mmol/L Comment:Testing performed by : [place], [address] Potassium, pl 4.4 3.3 - 4.9 mmol/L SABRA ROGERS ([place]) Comment:Testing performed by : [place], [address] Chloride 99 97 - 110 mmol/L SABRA ROGERS ([place]) Comment:Testing performed by : [facility], [facility], [place], [address] CO2 27 22 - 32 mmol/L [facility] ([place]) Comment:Testing performed by : [facility], [place], [address] Anion gap 12 2 - 15 mmol/L [facility] ([place]) Comment:Testing performed by : [facility], [facility], [place], [address] BUN 10 6 - 25 mg/dL [facility] ([place]) Comment:Testing performed by : [facility], [facility], [place], [address] Creatinine 0.58(L) 0.60 - 1.10 mg/dL [facility] ([place]) Comment:Testing performed by : [facility], [place], [address] Glucose 135 70 - 199 mg/dL CERNER [...] was last revised 2022. Testing performed by: [facility], [place], [address] Calcium 9.2 8.5 - 10.3 mg/dL [facility] ([place]) Comment:Testing performed by : [facility], [place], [address] Bilirubin, total 0.6 0.1 - 1.2 mg/dL [facility] ([place]) Comment:Testing performed by : [facility], [place], [address] Protein, pl 7.3 6.5 - 8.5 g/dL [facility] ([place]) Comment:Testing performed by : [facility], [place], [address] Albumin 3.9 3.5 - 5.0 g/dL [facility] ([place]) Comment:Testing performed by : [facility], [facility], [place], [address] Alk phos 47 40 - 130 Units/L [facility] ([place]) Comment:Testing performed by : [facility], [place], [address] ALT 46(H) 7 - 45 Units/L [facility] ([place]) Comment:Testing performed by : [facility], [facility], [place], [address] AST 29 10 - 45 Units/L [facility] ([place]) Comment:Testing performed by : [facility], [facility], [place], [address] Blood 10/14/2024 8:00 AM CDT 10/14/2024 1:44 PM CDT us Chalino Chapa MD LAB BLOOD ORDERABLES Aylin freedman Result [facility] ([place]) 1 [facility] Department [place] [address] * eGFR (10/11/2024 11:50 AM CDT) eGFR [...] was last reviewed 2021. Testing performed by: [facility], [facility], [place], [address] Blood 10/11/2024 11:5 0 AM CDT 10/11/2024 2:14 PM CDT us Milla Armenta [employer] LAB BLOOD ORDERABLES Final Result [facility] ([place]) 1 [facility] Department [place] [address] * (ABNORMAL) Differential, auto (10/11/2024 11:50 AM CDT) Neutrophil abs 0.43(C) 1.50 - 6.50 K/cumm Comment: This result has been called to Evie Brink RN by [id number] on 10/11/2024 13:11:00, and has been read back. Testing performed by: [place], [address] Imm gran abs 0.01 0.00 - 0.10 K/cumm [facility] ([place]) Comment:Testing performed by : [place], [address] Lymphocyte abs 0.73(L) 0.80 - 3.30 K/cumm [facility] ([place]) Comment:Testing performed by : [place], [address] Monocyte abs 0.07(L) 0.20 - 0.80 K/cumm [facility] ([place]) Comment:Testing performed by : [place], [address] Eosinophil abs 0.00 0.00 - 0.50 K/cumm [facility] ([place]) Comment:Testing performed by : [place], [address] Basophil abs 0.00 0.00 - 0.10 K/cumm [facility] ([place]) Comment:Testing performed by : [place], [address] Neutrophil pct 34.7 % [facility] ([place]) Comment: Interpretive Data Percent cell count reference ranges are not reported, since discordance with absolute values may lead to misinterpretation of CBC data. Current Interpretive Data was last revised on 2017. Testing performed by: [place], [address] Imm gran pct 0.8 % [facility] ([place]) Comment: Interpretive Data Percent cell count reference ranges are not reported, since discordance with absolute values may lead to misinterpretation of CBC data. Current Interpretive Data was last revised on 2017. Testing performed by: [place], [address] Lymphocyte pct 58.9 % [facility] ([place]) Comment: Interpretive Data Percent cell count reference ranges are not reported, since discordance with absolute values may lead to misinterpretation of CBC data. Current Interpretive Data was last revised on 2017. Testing performed by: [place], [address] Monocyte pct 5.6 % [facility] ([place]) Comment: Interpretive Data Percent cell count reference ranges are not reported, since discordance with absolute values may lead to misinterpretation of CBC data. Current Interpretive Data was last revised on 2017. Testing performed by: [place], [address] Eosinophil pct 0.0 % [facility] ([place]) Comment: Interpretive Data Percent cell count reference ranges are not reported, since discordance with absolute values may lead to misinterpretation of CBC data. Current Interpretive Data was last revised on 2017. Testing performed by: [place], [address] Basophil pct 0.0 % [facility] ([place]) Comment: Interpretive Data Percent cell count reference ranges are not reported, since discordance with absolute values may lead to misinterpretation of CBC data. Current Interpretive Data was last revised on 2017. Testing performed by: [facility], [place], [address] Blood 10/11/2024 11:5 0 AM CDT 10/11/2024 12:18 PM CDT us Chalino Chapa MD LAB BLOOD ORDERABLES Aylin freedman Result SABRA ROGERS ([place]) 1 [facility] Department [place] [address] * (ABNORMAL) CBC with auto differential (10/11/2024 11:50 AM CDT) WBC 1.24(L) 3.80 - 9.90 K/cumm Comment:Testing performed by : [place], [address] Hgb 7.7(L) 11.9 - 15.5 g/dL [facility] ([place]) Comment:Testing performed by : [place], [address] Hct 23.9(L) 35.6 - 45.5 % [facility] ([place]) Comment:Testing performed by : [place], [place], Plt 157 150 - 400 K/cumm [facility] ([place]) Comment:Testing performed by : [place], MPV 11.6 9.1 - 12.3 fL [facility] ([place]) Comment:Testing performed by : [place], [address] RBC 2.43(L) 3.90 - 5.20 M/cumm [facility] ([place]) Comment:Testing performed by : [place], [address] MCV 98.4(H) 81.3 - 96.4 fL [facility] ([place]) Comment:Testing performed by : [place], MCH 31.7 27.1 - 33.3 pg [facility] ([place]) Comment:Testing performed by : [place], MCHC 32.2(L) 32.3 - 35.7 g/dL [facility] ([place]) Comment:Testing performed by : [place], [address] RDW CV 15.1(H) 11.1 - 14.9 % [facility] ([place]) Comment:Testing performed by : [facility], [place], [address] RDW SD 53.4(H) 35.7 - 48.1 fL [facility] ([place]) Comment:Testing performed by : [facility], [facility], [place], [address] NRBC abs 0.00 0.00 - 0.01 K/cumm [facility] ([place]) Comment:Testing performed by : [facility], [place], [address] Morphologic Screen Results confirmed by manual morphology review. [facility] ([place]) Comment:Testing performed by : [facility], [place], [address] Blood 10/11/2024 11:5 0 AM CDT 10/11/2024 12:18 PM CDT us Chalino Chapa MD LAB BLOOD ORDERABLES Aylin freedman Result [facility] ([place]) 1 [facility] Department [place] [address] * (ABNORMAL) Comprehensive metabolic panel (10/11/2024 11:50 AM CDT) Sodium 140 135 - 145 mmol/L Comment:Testing performed by : [facility], [facility], [place], [address] Potassium, pl 3.9 3.3 - 4.9 mmol/L [facility] ([place]) Comment:Testing performed by : [facility], [place], [address] Chloride 100 97 - 110 mmol/L [facility] ([place]) Comment:Testing performed by : [facility], [place], [address] CO2 27 22 - 32 mmol/L [facility] ([place]) Comment:Testing performed by : [facility], [place], [address] Anion gap 13 2 - 15 mmol/L [facility] ([place]) Comment:Testing performed by : [facility], [place], [address] BUN 10 6 - 25 mg/dL [facility] ([place]) Comment:Testing performed by : [facility], [place], [address] Creatinine 0.54(L) 0.60 - 1.10 mg/dL [facility] ([place]) Comment:Testing performed by : [facility], [place], [address] Glucose 120 70 - 199 mg/dL [facility] ([place]) Comment: Interpretive Data Fasting glucose >/= 126 [...] was last revised 2022. Testing performed by: [place], [address] Calcium 8.8 8.5 - 10.3 mg/dL [facility] ([place]) Comment:Testing performed by : [place], [address] Bilirubin, total 0.5 0.1 - 1.2 mg/dL [facility] ([place]) Comment:Testing performed by : [place], [address] Protein, pl 6.9 6.5 - 8.5 g/dL [facility] ([place]) Comment:Testing performed by : [place], [address] Albumin 3.7 3.5 - 5.0 g/dL [facility] ([place]) Comment:Testing performed by : [place], [address] Alk phos 38(L) 40 - 130 Units/L [facility] ([place]) Comment:Testing performed by : [place], [address] ALT 40 7 - 45 Units/L [facility] ([place]) Comment:Testing performed by : [place], [address] AST 23 10 - 45 Units/L [facility] ([place]) Comment:Testing performed by : [place], [address] Blood 10/11/2024 11:5 0 AM CDT 10/11/2024 2:14 PM CDT us Milla Armenta NP LAB BLOOD ORDERABLES Final Result [facility] ([place]) 1 [facility] Department [place] [address] * eGFR (10/07/2024 5:29 AM CDT) eGFR [...] was last reviewed 2021. Testing performed by: [address] [address] Blood 10/07/2024 5:29 AM CDT 10/07/2024 5:46 AM CDT us Laurel Desir MD LAB BLOOD ORDERABLES Final Res ult [facility] [address] [facility] Department [place] [address] * (ABNORMAL) Differential, auto (10/07/2024 5:29 AM CDT) Neutrophil abs 0.13(C) 1.50 - 6.50 K/cumm Comment: Critical value called within last 72 hrs Testing performed by: [address] [place]., [address] Imm gran abs 0.00 0.00 - 0.10 K/cumm CERNER Comment:Testing performed by : [address] [address] Lymphocyte abs 0.49(L) 0.80 - 3.30 K/cumm CERNER Comment:Testing performed by : [address] [address] Monocyte abs 0.02(L) 0.20 - 0.80 K/cumm [facility] Comment:Testing performed by : [address], [place]., [address] Eosinophil abs 0.00 0.00 - 0.50 K/cumm [facility] Comment:Testing performed by : [address], [place]., [address] Basophil abs 0.00 0.00 - 0.10 K/cumm [facility] Comment:Testing performed by : [address] [address] Neutrophil pct 20.3 % [facility] Comment: Differential consistent with previous result. Differential consistent with previous result. Interpretive Data Percent cell count reference ranges are not reported, since discordance with absolute values may lead to misinterpretation of CBC data. Current Interpretive Data was last revised on 2017. Testing performed by: [address] [address] Imm gran pct 0.0 % CERNER Comment: Interpretive Data Percent cell count reference ranges are not reported, since discordance with absolute values may lead to misinterpretation of CBC data. Current Interpretive Data was last revised on 2017. Testing performed by: [address] [address] Lymphocyte pct 76.6 % CERNER Comment: Interpretive Data Percent cell count reference ranges are not reported, since discordance with absolute values may lead to misinterpretation of CBC data. Current Interpretive Data was last revised on 2017. Testing performed by: [address] [address] Monocyte pct 3.1 % C[facility]ER Comment: Interpretive Data Percent cell count reference ranges are not reported, since discordance with absolute values may lead to misinterpretation of CBC data. Current Interpretive Data was last revised on 2017. Testing performed by: [address] [address] Eosinophil pct 0.0 % SABRA Comment: Interpretive Data Percent cell count reference ranges are not reported, since discordance with absolute values may lead to misinterpretation of CBC data. Current Interpretive Data was last revised on 2017. Testing performed by: [address] [address] Basophil pct 0.0 % SABRA Comment: Interpretive Data Percent cell count reference ranges are not reported, since discordance with absolute values may lead to misinterpretation of CBC data. Current Interpretive Data was last revised on 2017. Testing performed by: [address] [address] Blood 10/07/2024 5:29 AM CDT 10/07/2024 5:46 AM CDT us Laurel Desir MD LAB BLOOD ORDERABLES Final Res ult [facility] [address] [facility] Department [place] [address] * (ABNORMAL) CBC with auto differential (10/07/2024 5:29 AM CDT) WBC 0.64(C) 3.80 - 9.90 K/cumm Comment: Critical value called within last 72 hrs Testing performed by: [address] [address] Hgb 7.2(L) 11.9 - 15.5 g/dL SABRA Comment:Testing performed by : [address] [address] Hct 21.9(L) 35.6 - 45.5 % SABRA Comment:Testing performed by : [address] [address] Plt 142(L) 150 - 400 K/cumm SABRA Comment:Testing performed by : [address] [address] MPV 10.9 9.1 - 12.3 fL [facility]RA [facility] Comment:Testing performed by : [address] [address] RBC 2.29(L) 3.90 - 5.20 M/cumm [facility] Comment:Testing performed by : [address] [address] MCV 95.6 81.3 - 96.4 fL [facility] Comment:Testing performed by : [address] [address] MCH 31.4 27.1 - 33.3 pg [facility] Comment:Testing performed by : [address] [address] MCHC 32.9 32.3 - 35.7 g/dL [facility] Comment:Testing performed by : [address], [address] RDW CV 14.9 11.1 - 14.9 % [facility] Comment:Testing performed by : [address] [address] RDW SD 51.4(H) 35.7 - 48.1 fL [facility] Comment:Testing performed by : [address] [address] NRBC abs 0.00 0.00 - 0.01 K/cumm [facility] Comment:Testing performed by : [address], [address] Morphologic Screen Results confirmed by manual morphology review. [facility] Comment:Testing performed by : [address] [address] Blood 10/07/2024 5:29 AM CDT 10/07/2024 5:46 AM CDT us Laurel Desir MD LAB BLOOD ORDERABLES Final Res ult [facility] [address] [facility] Department [place] [address] * (ABNORMAL) Basic metabolic panel (10/07/2024 5:29 AM CDT) Sodium 142 135 - 145 mmol/L Comment:Testing performed by : [address] [address] Potassium, pl 3.7 3.3 - 4.9 mmol/L SABRA Comment:Testing performed by : [address] [address] Chloride 104 97 - 110 mmol/L [facility]RA Comment:Testing performed by : [address], [place]., [address] CO2 32 22 - 32 mmol/L [facility]RA Comment:Testing performed by : [address] [address] Anion gap 6 2 - 15 mmol/L [facility] Comment:Testing performed by : [address], [place]., [address] BUN 6 6 - 25 mg/dL [facility] Comment:Testing performed by : [address] [address] Creatinine 0.39(L) 0.60 - 1.10 mg/dL [facility] Comment:Testing performed by : [address] [address] Glucose 137 70 - 199 mg/dL [facility] Comment: Interpretive Data Fasting glucose >/= 126 [...] was last revised 2022. Testing performed by: [address] [address] Calcium 7.9(L) 8.5 - 10.3 mg/dL [facility]RA Comment:Testing performed by : [address] [address] Blood 10/07/2024 5:29 AM CDT 10/07/2024 5:46 AM CDT us Laurel Desir MD LAB BLOOD ORDERABLES Final Res ult Performing Organization Address [facility] Co de Phone Number SABRA [address] [place] [address] * eGFR (10/06/2024 5:10 AM CDT) eGFR [...] was last reviewed 2021. Testing performed by: [facility], [address] [place] [address]., [address] Blood 10/06/2024 5:10 AM CDT 10/06/2024 5:26 AM CDT us Laurel Desir MD LAB BLOOD ORDERABLES Final Res ult Performing Organization Address City/[facility]/ZIP Co de Phone Number SABRA [address] [place] [address] * (ABNORMAL) Differential, auto (10/06/2024 5:10 AM CDT) Neutrophil abs 0.09(C) 1.50 - 6.50 K/cumm Comment: Critical value called within last 72 hrs Testing performed by: [address] [address] Imm gran abs 0.01 0.00 - 0.10 K/cumm [facility] Comment:Testing performed by : [address] [address] Lymphocyte abs 0.57(L) 0.80 - 3.30 K/cumm [facility] Comment:Testing performed by : [address], [place]., [address] Monocyte abs 0.01(L) 0.20 - 0.80 K/cumm [facility] Comment:Testing performed by : [address] [address] Eosinophil abs 0.01 0.00 - 0.50 K/cumm [facility] Comment:Testing performed by : [address] [address] Basophil abs 0.00 0.00 - 0.10 K/cumm [facility] Comment:Testing performed by : [address] [address] Neutrophil pct 13.2 % [facility] Comment: Differential consistent with previous result. Differential consistent with previous result. Interpretive Data Percent cell count reference ranges are not reported, since discordance with absolute values may lead to misinterpretation of CBC data. Current Interpretive Data was last revised on 2017. Testing performed by: [address] [address] Imm gran pct 1.4 % [facility] Comment: Interpretive Data Percent cell count reference ranges are not reported, since discordance with absolute values may lead to misinterpretation of CBC data. Current Interpretive Data was last revised on 2017. Testing performed by: [address] [address] Lymphocyte pct 82.6 % [facility] Comment: Interpretive Data Percent cell count reference ranges are not reported, since discordance with absolute values may lead to misinterpretation of CBC data. Current Interpretive Data was last revised on 2017. Testing performed by: [address] [address] Monocyte pct 1.4 % SABRA Comment: Interpretive Data Percent cell count reference ranges are not reported, since discordance with absolute values may lead to misinterpretation of CBC data. Current Interpretive Data was last revised on 2017. Testing performed by: [address] [address] Eosinophil pct 1.4 % SABRA Comment: Interpretive Data Percent cell count reference ranges are not reported, since discordance with absolute values may lead to misinterpretation of CBC data. Current Interpretive Data was last revised on 2017. Testing performed by: [address] [address] Basophil pct 0.0 % SABRA Comment: Interpretive Data Percent cell count reference ranges are not reported, since discordance with absolute values may lead to misinterpretation of CBC data. Current Interpretive Data was last revised on 2017. Testing performed by: [address] [address] Blood 10/06/2024 5:10 AM CDT 10/06/2024 5:26 AM CDT us Laurel Desir MD LAB BLOOD ORDERABLES Final Res ult SABRA 0855 [facility] Department of Laboratories [place], [place] [id number] * (ABNORMAL) CBC with auto differential (10/06/2024 5:10 AM CDT) WBC 0.69(C) 3.80 - 9.90 K/cumm Comment: Critical value called within last 72 hrs Testing performed by: [address] [address] Hgb 7.1(L) 11.9 - 15.5 g/dL SABRA PARKS Comment:Testing performed by : [address] [address] Hct 21.9(L) 35.6 - 45.5 % SABRA Comment:Testing performed by : [address] [address] Plt 149(L) 150 - 400 K/cumm SABRA Comment:Testing performed by : [address], [address] MPV 11.8 9.1 - 12.3 fL SABRA Comment:Testing performed by : [address] [address] RBC 2.26(L) 3.90 - 5.20 M/cumm SABRA Comment:Testing performed by : [address], [address] MCV 96.9(H) 81.3 - 96.4 fL SABRA Comment:Testing performed by : [address], [address] MCH 31.4 27.1 - 33.3 pg SABRA Comment:Testing performed by : [address], [address] MCHC 32.4 32.3 - 35.7 g/dL SABRA Comment:Testing performed by : [address], [address] RDW CV 15.0(H) 11.1 - 14.9 % SABRA Comment:Testing performed by : [address], [address] RDW SD 53.1(H) 35.7 - 48.1 fL SABRA Comment:Testing performed by : [address], [address] NRBC abs 0.00 0.00 - 0.01 K/cumm SABRA Comment:Testing performed by : [address], [address] Morphologic Screen Results confirmed by manual morphology review. SABRA Comment:Testing performed by : [address], [address] Blood 10/06/2024 5:10 AM CDT 10/06/2024 5:26 AM CDT us Laurel Desir MD LAB BLOOD ORDERABLES Final Res ult [address] [address] * (ABNORMAL) Phosphorus (10/06/2024 5:10 AM CDT) Pathologist [facility] Phosphorus, pl 2.1(L) 2.3 - 4.5 mg/dL Comment:Testing performed by : [address] [address] Blood 10/06/2024 5:10 AM CDT 10/06/2024 5:26 AM CDT Juan A Rios MD LAB BLOOD ORDERABL ES Final Result Performing Organization Address [facility] Co de Phone Number [address] [address] * Magnesium (10/06/2024 5:10 AM CDT) [facility] Magnesium 2.0 1.4 - 2.5 mg/dL Comment:Testing performed by : [address] [address] Blood 10/06/2024 5:10 AM CDT 10/06/2024 5:26 AM CDT Juan A Rios MD LAB BLOOD ORDERABL ES Final Result Performing Organization Address [facility] Co de Phone Number [address] [address] * (ABNORMAL) Basic metabolic panel (10/06/2024 5:10 AM CDT) [facility] Sodium 136 135 - 145 mmol/L Comment:Testing performed by : [address] [address] Potassium, pl 3.6 3.3 - 4.9 mmol/L SABRA Comment:Testing performed by : [address] [address] Chloride 101 97 - 110 mmol/L SABRA Comment:Testing performed by : [address] [address] CO2 28 22 - 32 mmol/L SABRA Comment:Testing performed by : [address] [address] Anion gap 7 2 - 15 mmol/L SABRA Comment:Testing performed by : [address] [address] BUN 8 6 - 25 mg/dL SABRA Comment:Testing performed by : [address] [address] Creatinine 0.42(L) 0.60 - 1.10 mg/dL SABRA Comment:Testing performed by : [address] [address] Glucose 133 70 - 199 mg/dL SABRA [...] was last revised 2022. Testing performed by: [address] [address] Calcium 7.6(L) 8.5 - 10.3 mg/dL SABRA Comment:Testing performed by : [address] [address] Blood 10/06/2024 5:10 AM CDT 10/06/2024 5:26 AM CDT us Laurel Desir MD LAB BLOOD ORDERABLES Final Res ult SABRA 43[address] [facility] Department of Laboratories [place], [place] [id number] * XR Kub (10/05/2024 7:42 PM CDT) [...] signed by Lee SHORE: SILVIANO Report ID: [id number] Reading Location: [id number] Procedure Note Lee Wilkins MD - 10/06/2024 [...] signed by Lee SHORE: SILVIANO Report ID: [id number] Reading Location: [id number] Juan A Rios MD IMG XR PROCEDURES [...] Shadi Nesbitt M.D. MJ: ALINE Report ID: [id number] Reading Location: [id number] Procedure Note Shadi Nesbitt MD - 10/05/2024 [...] Shadi Nesbitt M.D. MJ: ALINE Report ID: [id number] Reading Location: [id number] us Juan A Rios MD IMG XR [...] was last reviewed 2021. Testing performed by: [facility], [address] [place] [address]., [address] Blood 10/05/2024 6:06 AM CDT 10/05/2024 6:40 AM CDT us Laurel Desir MD LAB BLOOD ORDERABLES Final Res ult AMYCLJ 9008 [facility] Department [place] [place] [address] [phone] * (ABNORMAL) Differential, auto (10/05/2024 6:06 AM CDT) Neutrophil abs 0.06(C) 1.50 - 6.50 K/cumm Comment: This result has been called to [place] [id number] by [email or web address] on 10/05/2024 07:54:45, and has been read back. Testing performed by: [address] [address] Imm gran abs 0.02 0.00 - 0.10 K/cumm [facility] Comment:Testing performed by : [address] [address] Lymphocyte abs 0.44(L) 0.80 - 3.30 K/cumm [facility] Comment:Testing performed by : [address] [address] Monocyte abs 0.01(L) 0.20 - 0.80 K/cumm [facility] Comment:Testing performed by : [address] [address] Eosinophil abs 0.00 0.00 - 0.50 K/cumm [facility] Comment:Testing performed by : [address] [address] Basophil abs 0.00 0.00 - 0.10 K/cumm [facility] Comment:Testing performed by : [address] [address] Neutrophil pct 11.3 % [facility] Comment: Differential consistent with previous result. Differential consistent with previous result. Differential consistent with previous result. Interpretive Data Percent cell count reference ranges are not reported, since discordance with absolute values may lead to misinterpretation of CBC data. Current Interpretive Data was last revised on 2017. Testing performed by: [address] [address] Imm gran pct 3.8 % [facility] Comment: Interpretive Data Percent cell count reference ranges are not reported, since discordance with absolute values may lead to misinterpretation of CBC data. Current Interpretive Data was last revised on 2017. Testing performed by: [address] [address] Lymphocyte pct 83.0 % [facility] Comment: Interpretive Data Percent cell count reference ranges are not reported, since discordance with absolute values may lead to misinterpretation of CBC data. Current Interpretive Data was last revised on 2017. Testing performed by: [address] [address] Monocyte pct 1.9 % [facility] Comment: Interpretive Data Percent cell count reference ranges are not reported, since discordance with absolute values may lead to misinterpretation of CBC data. Current Interpretive Data was last revised on 2017. Testing performed by: [address] [address] Eosinophil pct 0.0 % [facility] Comment: Interpretive Data Percent cell count reference ranges are not reported, since discordance with absolute values may lead to misinterpretation of CBC data. Current Interpretive Data was last revised on 2017. Testing performed by: [address] [address] Basophil pct 0.0 % [facility] Comment: Interpretive Data Percent cell count reference ranges are not reported, since discordance with absolute values may lead to misinterpretation of CBC data. Current Interpretive Data was last revised on 2017. Testing performed by: [address] [address] Blood 10/05/2024 6:06 AM CDT 10/05/2024 6:40 AM CDT us Laurel Desir MD LAB BLOOD ORDERABLES Final Res ult SABRA 0994 [facility] Department [place] [address] * (ABNORMAL) CBC with auto differential (10/05/2024 6:06 AM CDT) WBC 0.53(C) 3.80 - 9.90 K/cumm Comment: This result has been called to [place] [id number] by [email or web address] on 10/05/2024 07:54:45, and has been read back. Testing performed by: [address] [address] Hgb 7.6(L) 11.9 - 15.5 g/dL SARBA Comment:Testing performed by : [address] [address] Hct 23.6(L) 35.6 - 45.5 % SABRA Comment:Testing performed by : [address] [address] Plt 152 150 - 400 K/cumm SABRA Comment:Testing performed by : [address] [address] MPV 11.6 9.1 - 12.3 fL SABRA Comment:Testing performed by : [address] [address] RBC 2.41(L) 3.90 - 5.20 M/cumm SABRA Comment:Testing performed by : [address] [address] MCV 97.9(H) 81.3 - 96.4 fL SABRA Comment:Testing performed by : [address] [address] MCH 31.5 27.1 - 33.3 pg SABRA Comment:Testing performed by : [address] [address] MCHC 32.2(L) 32.3 - 35.7 g/dL SABRA Comment:Testing performed by : [address] [address] RDW CV 15.0(H) 11.1 - 14.9 % SABRA Comment:Testing performed by : [address] [address] RDW SD 53.0(H) 35.7 - 48.1 fL SABRA Comment:Testing performed by : [address] [address] NRBC abs 0.00 0.00 - 0.01 K/cumm SABRA Comment:Testing performed by : [address] [address] Morphologic Screen Results confirmed by manual morphology review. SABRA Comment:Testing performed by : [address] [address] Blood 10/05/2024 6:06 AM CDT 10/05/2024 6:40 AM CDT us Laurel Desir MD LAB BLOOD ORDERABLES Final Res ult SABRA 1310 [facility] Department [place] [address] * (ABNORMAL) Basic metabolic panel (10/05/2024 6:06 AM CDT) Sodium 139 135 - 145 mmol/L Comment:Testing performed by : [address] [address] Potassium, pl 4.2 3.3 - 4.9 mmol/L SABRA Comment:Testing performed by : [address] [address] Chloride 102 97 - 110 mmol/L SABRA Comment:Testing performed by : [address] [address] CO2 30 22 - 32 mmol/L SABRA Comment:Testing performed by : [address] [address] Anion gap 7 2 - 15 mmol/L SABRA Comment:Testing performed by : [address] [address] BUN 11 6 - 25 mg/dL SABRA Comment:Testing performed by : [address] [address] Creatinine 0.43(L) 0.60 - 1.10 mg/dL SABRA Comment:Testing performed by : [address] [address] Glucose 144 70 - 199 mg/dL SABRA [...] was last revised 2022. Testing performed by: [address] [address] Calcium 7.8(L) 8.5 - 10.3 mg/dL SABRA Comment:Testing performed by : [address] [address] Blood 10/05/2024 6:06 AM CDT 10/05/2024 6:40 AM CDT us Laurel Desir MD LAB BLOOD ORDERABLES Final Res ult Performing Organization Address City/[facility]/ZIP Co de Phone Number SABRA [facility] [place] [address] * Blood smear review (10/04/2024 5:48 AM CDT) Pathologist [facility] RBC morphology Consistent with RBC Indicies Comment:Testing performed by : [address] [address] Platelet estimate Automated Count Confirmed SABRA Comment:Testing performed by : [address] [address] Blood 10/04/2024 5:48 AM CDT 10/04/2024 6:23 AM CDT us Laurel Desir MD LAB BLOOD ORDERABLES Final Res ult SABRA [address] [place] [address] * eGFR (10/04/2024 5:48 AM CDT) eGFR >90 >=60 mL/min/1. 73 [...] was last reviewed 2021. Testing performed by: [address] [address] Blood 10/04/2024 5:48 AM CDT 10/04/2024 6:23 AM CDT us Laurel Desir MD LAB BLOOD ORDERABLES Final Res ult SABRA 0175 [facility] Department [place] [address] * (ABNORMAL) Differential, auto (10/04/2024 5:48 AM CDT) Neutrophil abs 0.04(C) 1.50 - 6.50 K/cumm Comment: Critical value called within last 72 hrs Testing performed by: [address] [address] Imm gran abs 0.00 0.00 - 0.10 K/cumm SABRA PARKS Comment:Testing performed by : [address] [address] Lymphocyte abs 0.48(L) 0.80 - 3.30 K/cumm SABRA PARKS Comment:Testing performed by : [address] [address] Monocyte abs 0.05(L) 0.20 - 0.80 K/cumm [place] Comment:Testing performed by : [address] [address] Eosinophil abs 0.00 0.00 - 0.50 K/cumm ASBRA Comment:Testing performed by : [address] [address] Basophil abs 0.00 0.00 - 0.10 K/cumm [facility] Comment:Testing performed by : [address] [address] Neutrophil pct 7.0 % [facility] Comment: Differential consistent with previous result. Differential consistent with previous result. Differential consistent with previous result. Interpretive Data Percent cell count reference ranges are not reported, since discordance with absolute values may lead to misinterpretation of CBC data. Current Interpretive Data was last revised on 2017. Testing performed by: [address] [address] Imm gran pct 0.0 % [facility] Comment: Interpretive Data Percent cell count reference ranges are not reported, since discordance with absolute values may lead to misinterpretation of CBC data. Current Interpretive Data was last revised on 2017. Testing performed by: [address] [address] Lymphocyte pct 84.2 % [facility] Comment: Interpretive Data Percent cell count reference ranges are not reported, since discordance with absolute values may lead to misinterpretation of CBC data. Current Interpretive Data was last revised on 2017. Testing performed by: [address] [address] Monocyte pct 8.8 % [facility] Comment: Interpretive Data Percent cell count reference ranges are not reported, since discordance with absolute values may lead to misinterpretation of CBC data. Current Interpretive Data was last revised on 2017. Testing performed by: [address] [address] Eosinophil pct 0.0 % [facility] Comment: Interpretive Data Percent cell count reference ranges are not reported, since discordance with absolute values may lead to misinterpretation of CBC data. Current Interpretive Data was last revised on 2017. Testing performed by: [address] [address] Basophil pct 0.0 % SABRA PARKS Comment: Interpretive Data Percent cell count reference ranges are not reported, since discordance with absolute values may lead to misinterpretation of CBC data. Current Interpretive Data was last revised on 2017. Testing performed by: [address] [address] Blood 10/04/2024 5:48 AM CDT 10/04/2024 6:23 AM CDT us Laurel Desir MD LAB BLOOD ORDERABLES Final Res ult SABRA 7884 [facility] Department [place] [address] * (ABNORMAL) CBC with auto differential (10/04/2024 5:48 AM CDT) WBC 0.57(C) 3.80 - 9.90 K/cumm Comment: Critical value called within last 72 hrs Testing performed by: [address] [address] Hgb 7.7(L) 11.9 - 15.5 g/dL SABRA PARKS Comment:Testing performed by : [address] [address] Hct 23.8(L) 35.6 - 45.5 % SABRA PARKS Comment:Testing performed by : [address] [address] Plt 136(L) 150 - 400 K/cumm SABRA PARKS Comment:Testing performed by : [address] [address] MPV 11.5 9.1 - 12.3 fL SABRA PARKS Comment:Testing performed by : [address] [address] RBC 2.46(L) 3.90 - 5.20 M/cumm SABRA PARKS Comment:Testing performed by : [address] [address] MCV 96.7(H) 81.3 - 96.4 fL SABRA PARKS Comment:Testing performed by : [address] [address] MCH 31.3 27.1 - 33.3 pg SABRA PARKS Comment:Testing performed by : [address] [address] MCHC 32.4 32.3 - 35.7 g/dL SABRA PARKS Comment:Testing performed by : [address] [address] RDW CV 15.1(H) 11.1 - 14.9 % SABRA PARKS Comment:Testing performed by : [address] [address] RDW SD 52.9(H) 35.7 - 48.1 fL SABRA PARKS Comment:Testing performed by : [address] [address] NRBC abs 0.00 0.00 - 0.01 K/cumm SABRA PARKS Comment:Testing performed by : [address] [address] Blood 10/04/2024 5:48 AM CDT 10/04/2024 6:23 AM CDT us Laurel Desir MD LAB BLOOD ORDERABLES Edited Re sult - Final SABRA 45[address] [facility] Department of Laboratories [place], [place] [id number] * (ABNORMAL) Basic metabolic panel (10/04/2024 5:48 AM CDT) Sodium 139 135 - 145 mmol/L Comment:Testing performed by : [address] [address] Potassium, pl 4.1 3.3 - 4.9 mmol/L SABRA PARKS Comment:Testing performed by : [address] [address] Chloride 103 97 - 110 mmol/L SABRA PARKS Comment:Testing performed by : [address] [address] CO2 31 22 - 32 mmol/L SABRA Comment:Testing performed by : [address] [address] Anion gap 5 2 - 15 mmol/L SABRA Comment:Testing performed by : [address] [address] BUN 8 6 - 25 mg/dL SABRA Comment:Testing performed by : [address] [address] Creatinine 0.41(L) 0.60 - 1.10 mg/dL SABRA Comment:Testing performed by : [address] [address] Glucose 141 70 - 199 mg/dL SABRA [...] was last revised 2022. Testing performed by: [address] [address] Calcium 7.7(L) 8.5 - 10.3 mg/dL SABRA Comment:Testing performed by : [address] [address] Blood 10/04/2024 5:48 AM CDT 10/04/2024 6:23 AM CDT us Laurel Desir MD LAB BLOOD ORDERABLES Final Res ult SABRA 6499 [facility] Department [place] [address] * POCT glucose (10/03/2024 8:17 PM CDT) [facility] Signature Glucose, POC 192 70 - 199 mg/dL Comment:Testing performed by : [facility], [address] [place] [address]., [address] Glucose comment 1 RN/MD Notified AMYPAOLA KASEY Comment:Testing performed by : [facility], [address] [place] [address]., [address] Blood 10/03/2024 8:17 PM CDT 10/03/2024 8:17 PM CDT Juan A Rios MD LAB POCT ORDERABLE S - DEVICE Final Result SABRA 6804 [facility] Department [place] [address] * XR Chest 1 View [...] Esdras Edgar M.D. MM: MM Report ID: [id number] Reading Location: [place] [address] Procedure Note Esdras Edgar MD - 10/03/2024 [...] Esdras Edgar M.D. MM: MM Report ID: [id number] Reading Location: [place] [address] Gretta Martinez MD IMG XR PROCEDURES Aylin l Result [...] was last reviewed 2021. Testing performed by: [facility], [address] [place] [address]., [address] Blood 10/03/2024 6:19 AM CDT 10/03/2024 7:42 AM CDT us Laurel Desir MD LAB BLOOD ORDERABLES Final Res ult SABRA 4500 [facility] Department [place] [address] * (ABNORMAL) Differential, auto (10/03/2024 6:19 AM CDT) Neutrophil abs 0.03(C) 1.50 - 6.50 K/cumm Comment: Critical value called within last 72 hrs Testing performed by: [address] [address] Imm gran abs 0.01 0.00 - 0.10 K/cumm SABRA Comment:Testing performed by : [address] [address] Lymphocyte abs 0.41(L) 0.80 - 3.30 K/cumm SABRA Comment:Testing performed by : [address] [address] Monocyte abs 0.06(L) 0.20 - 0.80 K/cumm SABRA Comment:Testing performed by : [address] [address] Eosinophil abs 0.00 0.00 - 0.50 K/cumm SABRA Comment:Testing performed by : [address] [address] Basophil abs 0.00 0.00 - 0.10 K/cumm SABRA Comment:Testing performed by : [address] [address] Neutrophil pct 5.8 % SABRA Comment: Differential consistent with previous result. Differential consistent with previous result. Interpretive Data Percent cell count reference ranges are not reported, since discordance with absolute values may lead to misinterpretation of CBC data. Current Interpretive Data was last revised on 2017. Testing performed by: [address] [address] Imm gran pct 2.0 % [facility] Comment: Interpretive Data Percent cell count reference ranges are not reported, since discordance with absolute values may lead to misinterpretation of CBC data. Current Interpretive Data was last revised on 2017. Testing performed by: [address] [address] Lymphocyte pct 80.4 % [facility] Comment: Interpretive Data Percent cell count reference ranges are not reported, since discordance with absolute values may lead to misinterpretation of CBC data. Current Interpretive Data was last revised on 2017. Testing performed by: [address] [address] Monocyte pct 11.8 % [facility] Comment: Interpretive Data Percent cell count reference ranges are not reported, since discordance with absolute values may lead to misinterpretation of CBC data. Current Interpretive Data was last revised on 2017. Testing performed by: [address] [address] Eosinophil pct 0.0 % [facility] Comment: Interpretive Data Percent cell count reference ranges are not reported, since discordance with absolute values may lead to misinterpretation of CBC data. Current Interpretive Data was last revised on 2017. Testing performed by: [address] [address] Basophil pct 0.0 % [facility] Comment: Interpretive Data Percent cell count reference ranges are not reported, since discordance with absolute values may lead to misinterpretation of CBC data. Current Interpretive Data was last revised on 2017. Testing performed by: [address] [address] Blood 10/03/2024 6:19 AM CDT 10/03/2024 6:23 AM CDT us Laurel Desir MD LAB BLOOD ORDERABLES Final Res ult SABRA PARKS [address] [facility] Department [place] [address] * (ABNORMAL) CBC with auto differential (10/03/2024 6:19 AM CDT) [facility] WBC 0.51(C) 3.80 - 9.90 K/cumm Comment: Critical value called within last 72 hrs Testing performed by: [address], [address] Hgb 7.6(L) 11.9 - 15.5 g/dL SABRA Comment:Testing performed by : [address], [address] Hct 23.5(L) 35.6 - 45.5 % SABRA Comment:Testing performed by : [address], [address] Plt 107(L) 150 - 400 K/cumm SABRA Comment:Testing performed by : [address], [address] MPV 11.8 9.1 - 12.3 fL SABRA Comment:Testing performed by : [address], [address] RBC 2.44(L) 3.90 - 5.20 M/cumm SABRA Comment:Testing performed by : [address], [address] MCV 96.3 81.3 - 96.4 fL SABRA Comment:Testing performed by : [address], [address] MCH 31.1 27.1 - 33.3 pg SABRA Comment:Testing performed by : [address], [address] MCHC 32.3 32.3 - 35.7 g/dL SABRA Comment:Testing performed by : [address], [address] RDW CV 15.0(H) 11.1 - 14.9 % SABRA Comment:Testing performed by : [address], [address] RDW SD 52.5(H) 35.7 - 48.1 fL SABRA Comment:Testing performed by : [address], [address] NRBC abs 0.00 0.00 - 0.01 K/cumm SABRA PARKS Comment:Testing performed by : [address] [address] Morphologic Screen Results confirmed by manual morphology review. SABRA PARKS Comment:Testing performed by : [address] [address] Blood 10/03/2024 6:19 AM CDT 10/03/2024 6:23 AM CDT us Laurel Desir MD LAB BLOOD ORDERABLES Final Res ult Performing Organization Address [facility] Co de Phone Number [address] [place] [address] * (ABNORMAL) CRP (acute phase) (10/03/2024 6:19 AM CDT) Pathologist [facility] CRP 95.5(H) <=10.0 mg/L Comment:Testing performed by : [address] [address] Blood 10/03/2024 6:19 AM CDT 10/03/2024 6:23 AM CDT Gretta Martinez MD LAB BLOOD ORDERABLES F inal Result Performing Organization Address [facility] Co de Phone Number [address] [place] [address] * (ABNORMAL) Basic metabolic panel (10/03/2024 6:19 AM CDT) Sodium 140 135 - 145 mmol/L Comment:Testing performed by : [address] [address] Potassium, pl 4.5 3.3 - 4.9 mmol/L SABRA PARKS Comment: Delta - Results Reviewed Testing performed by: [address] [address] Chloride 103 97 - 110 mmol/L SABRA PARKS Comment:Testing performed by : [address] [address] CO2 31 22 - 32 mmol/L SABRA Comment:Testing performed by : [address] [address] Anion gap 6 2 - 15 mmol/L SABRA Comment:Testing performed by : [address] [address] BUN 7 6 - 25 mg/dL SABRA Comment:Testing performed by : [address] [address] Creatinine 0.40(L) 0.60 - 1.10 mg/dL SABRA Comment:Testing performed by : [address] [address] Glucose 145 70 - 199 mg/dL SABRA [...] was last revised 2022. Testing performed by: [address] [address] Calcium 7.7(L) 8.5 - 10.3 mg/dL SABRA Comment:Testing performed by : [address] [address] Blood 10/03/2024 6:19 AM CDT 10/03/2024 6:23 AM CDT us Laurel Desir MD LAB BLOOD ORDERABLES Final Res ult SABRA PARKS [address] [facility] Department [place] [address] * (ABNORMAL) Blood smear review (10/02/2024 4:26 AM CDT) RBC morphology Present(A) Comment:Testing performed by : [facility], [address] [place] [address]., [address] Anisocytosis Slight(A) SABRA Comment:Testing performed by : [address] [address] Microcytes 3-7/HPF(A) SABRA Comment:Testing performed by : [address] [address] Platelet estimate Automated Count Confirmed SABRA Comment:Testing performed by : [address] [address] Giant platelets Present(A) SABRA Comment:Testing performed by : [address] [address] Blood 10/02/2024 4:26 AM CDT 10/02/2024 5:24 AM CDT us Laurel Desir MD LAB BLOOD ORDERABLES Final Res ult SABRA [address] [facility] Department [place] [address] * eGFR (10/02/2024 4:26 AM CDT) eGFR >90 >=60 mL/min/1. 73 [...] was last reviewed 2021. Testing performed by: [address] [address] Blood 10/02/2024 4:26 AM CDT 10/02/2024 5:24 AM CDT us Laurel Desir MD LAB BLOOD ORDERABLES Final Res ult [facility] [address] [facility] Department [place] [address] * (ABNORMAL) Differential, auto (10/02/2024 4:26 AM CDT) Neutrophil abs 0.01(C) 1.50 - 6.50 K/cumm Comment: This result has been called to [id number] by [id number] on 10/02/2024 07:28:40, and has been read back. Testing performed by: [address] [address] Imm gran abs 0.00 0.00 - 0.10 K/cumm SABRA Comment:Testing performed by : [address] [address] Lymphocyte abs 0.35(L) 0.80 - 3.30 K/cumm SABRA Comment:Testing performed by : [address] [address] Monocyte abs 0.03(L) 0.20 - 0.80 K/cumm SABRA Comment:Testing performed by : [address] [address] Eosinophil abs 0.00 0.00 - 0.50 K/cumm SABRA Comment:Testing performed by : [address] [address] Basophil abs 0.00 0.00 - 0.10 K/cumm SABRA Comment:Testing performed by : [address] [address] Neutrophil pct 2.6 % SABRA Comment: Interpretive Data Percent cell count reference ranges are not reported, since discordance with absolute values may lead to misinterpretation of CBC data. Current Interpretive Data was last revised on 2017. Testing performed by: [address] [address] Imm gran pct 0.0 % SABRA Comment: Interpretive Data Percent cell count reference ranges are not reported, since discordance with absolute values may lead to misinterpretation of CBC data. Current Interpretive Data was last revised on 2017. Testing performed by: [address] [address] Lymphocyte pct 89.7 % [facility] Comment: Interpretive Data Percent cell count reference ranges are not reported, since discordance with absolute values may lead to misinterpretation of CBC data. Current Interpretive Data was last revised on 2017. Testing performed by: [address] [address] Monocyte pct 7.7 % SABRA Comment: Interpretive Data Percent cell count reference ranges are not reported, since discordance with absolute values may lead to misinterpretation of CBC data. Current Interpretive Data was last revised on 2017. Testing performed by: [address] [address] Eosinophil pct 0.0 % [facility] Comment: Interpretive Data Percent cell count reference ranges are not reported, since discordance with absolute values may lead to misinterpretation of CBC data. Current Interpretive Data was last revised on 2017. Testing performed by: [address] [address] Basophil pct 0.0 % [facility] Comment: Interpretive Data Percent cell count reference ranges are not reported, since discordance with absolute values may lead to misinterpretation of CBC data. Current Interpretive Data was last revised on 2017. Testing performed by: [address] [address] Blood 10/02/2024 4:26 AM CDT 10/02/2024 5:24 AM CDT us Laurel Desir MD LAB BLOOD ORDERABLES Final Res ult SABRA [address] [place] [address] Department [place] [address] * (ABNORMAL) CBC with auto differential (10/02/2024 4:26 AM CDT) [facility] Signature WBC 0.39(C) 3.80 - 9.90 K/cumm Comment: This result has been called to [id number] by [id number] on 10/02/2024 07:28:40, and has been read back. Testing performed by: [address] [address] Hgb 7.5(L) 11.9 - 15.5 g/dL SABRA Comment:Testing performed by : [address], [address] Hct 22.5(L) 35.6 - 45.5 % SABRA Comment:Testing performed by : [address], [address] Plt 84(L) 150 - 400 K/cumm SABRA Comment:Testing performed by : [address], [address] MPV 11.5 9.1 - 12.3 fL [facility]ER[place] Comment:Testing performed by : [address], [address] RBC 2.42(L) 3.90 - 5.20 M/cumm SABRA Comment:Testing performed by : [address] [address] MCV 93.0 81.3 - 96.4 fL [place] Comment:Testing performed by : [address], [address] MCH 31.0 27.1 - 33.3 pg [place]ER[place] Comment:Testing performed by : [address] [address] MCHC 33.3 32.3 - 35.7 g/dL SABRA Comment:Testing performed by : [address] [address] RDW CV 14.9 11.1 - 14.9 % SABRA Comment:Testing performed by : [address] [address] RDW SD 50.3(H) 35.7 - 48.1 fL SABRA PARKS Comment:Testing performed by : [facility], [address] [place] [address]., [address] NRBC abs 0.00 0.00 - 0.01 K/cumm SABRA PARKS Comment:Testing performed by : [facility], [address] [place] [address]., [address] Blood 10/02/2024 4:26 AM CDT 10/02/2024 5:24 AM CDT Laurel Desir MD LAB BLOOD ORDERABLES Edited Re sult - Final Performing Organization Address City/[facility]/ZIP Co de Phone Number SABRA [address] [place] [address] * (ABNORMAL) Phosphorus (10/02/2024 4:26 AM CDT) Phosphorus, pl 1.8(L) 2.3 - 4.5 mg/dL Comment:Testing performed by : [address], [address] Blood 10/02/2024 4:26 AM CDT 10/02/2024 5:24 AM CDT Juan A Rios MD LAB BLOOD ORDERABL ES Final Result Performing Organization Address City/[facility] Co de Phone Number [address] [place] [address] * Magnesium (10/02/2024 4:26 AM CDT) Magnesium 1.9 1.4 - 2.5 mg/dL Comment:Testing performed by : [address] [address] Blood 10/02/2024 4:26 AM CDT 10/02/2024 5:24 AM CDT Juan A Rios MD LAB BLOOD ORDERABL ES Final Result SABRA [address] [facility] Department [place] [address] * (ABNORMAL) Basic metabolic panel (10/02/2024 4:26 AM CDT) Sodium 140 135 - 145 mmol/L Comment:Testing performed by : [address] [address] Potassium, pl 3.4 3.3 - 4.9 mmol/L SBARA Comment:Testing performed by : [address] [address] Chloride 101 97 - 110 mmol/L SABRA Comment:Testing performed by : [address] [address] CO2 32 22 - 32 mmol/L SABRA Comment:Testing performed by : [address] [address] Anion gap 7 2 - 15 mmol/L SABRA Comment:Testing performed by : [address] [address] BUN 6 6 - 25 mg/dL SABRA Comment:Testing performed by : [address] [address] Creatinine 0.47(L) 0.60 - 1.10 mg/dL SABRA Comment:Testing performed by : [address] [address] Glucose 137 70 - 199 mg/dL SABRA [...] was last revised 2022. Testing performed by: [address] [address] Calcium 7.7(L) 8.5 - 10.3 mg/dL SABRA Comment:Testing performed by : [facility], [address] [place] [address]., [address] Blood 10/02/2024 4:26 AM CDT 10/02/2024 5:24 AM CDT Laurel Desir MD LAB BLOOD ORDERABLES Final Res ult Performing Organization Address [facility] Co de Phone Number SABRA [address] [place] [address] * Coccidioides antibody screen w/reflex Blood (10/01/2024 8:07 PM CDT) [facility] Coccidioides ab screen, ser Negative Negative [facility] Comment: Repeat testing on a new sample in 2-3 weeks if clinically indicated. ADDITIONAL INFORMATION This test has been modified from the vice president of instruction's instructions. Its performance characteristics were determined by [facility] in a manner consistent with CLIA requirements. This test has not been cleared or approved by the U.S. Food and Drug Administration. Test Performed by: [facility] [address] Event Executive: Lloyd Olmstead Ph.D.; CLIA# [id number] Testing performed by: [facility], [address] [place] [address]., [address] Blood 10/01/2024 8:07 PM CDT 10/01/2024 8:23 PM CDT Gretta Martinez MD LAB MICROBIOLOGY - GEN ERAL ORDERABLES Final Result Performing Organization Address [facility]/ZIP Co de Phone Number AM[address] [place] [address] [facility] * Blastomyces antibody, EIA, serum Blood (10/01/2024 8:07 PM CDT) Blastomyces Antibody Negative Negative [facility] Comment: A single negative result does not exclude the diagnosis of blastomycosis. Repeat testing on a new sample in 7-14 days if clinically indicated. Test Performed by: [facility] [address] [place] [address] Event Executive: Lloyd Olmstead Ph.D.; CLIA# [id number] Testing performed by: [facility], [address] [place] [address]., [address] Blood 10/01/2024 8:07 PM CDT 10/01/2024 8:23 PM CDT Gretta Martinez MD LAB MICROBIOLOGY - GEN ERAL ORDERABLES Final Result SABRA [address] [facility] Department [place] [address] [facility] * Cryptococcal Antigen, Serum Blood (10/01/2024 [...] data last revised 2018. Testing performed by: [facility], [address] [facility], [place]., [address] Blood 10/01/2024 8:07 PM CDT 10/02/2024 2:16 AM CDT Gretta Martinez MD LAB MICROBIOLOGY - GEN ERAL ORDERABLES Final Result [address] [place] [address] * Aspergillus galactomannan antigen Blood (10/01/2024 8:07 PM CDT) Aspergillus galactomannan Ag [facility] Comment: Aspergillus Ag, S was cancelled on 10/03/2024 at 12:25; INCORRECT COLLECTION CONTAINER SUBMITTED. Test Performed by: [facility] [address] [place] [address] Event Executive: Lloyd Olmstead Ph.D.; CLIA# [id number] Testing performed by: [facility], [address] [place] [address]., [address] Blood 10/01/2024 8:07 PM CDT 10/01/2024 8:23 PM CDT Gretta Martinez MD LAB MICROBIOLOGY - GEN ERAL ORDERABLES Final Result Performing Organization Address City/[facility] Co de Phone Number [address] [place] [address] [facility] * Transfuse RBC (10/01/2024 6:25 PM CDT) Blood Listete Loera NP BLOOD TRANSFUSION ORDERABLES Final Result Performing Organization Address [facility] Co de Phone Number [address] [place] [address] * Histoplasma Antigen Urine (10/01/2024 6:10 PM CDT) Histo/Blasto Ag Value Not Detected ng/mL [facility] Comment: ADDITIONAL INFORMATION This test was developed and its performance characteristics determined by [facility] in a manner consistent with CLIA requirements. This test has not been cleared or approved by the U.S. Food and Drug Administration. Test Performed by: [place] [address] [place] [address] Event Executive: Lloyd Olmstead Ph.D.; CLIA# [id number] Testing performed by: [address] [address] Histo/Blasto Ag Result Not Detected Not Detected SABRA Comment: No antigen from Histoplasma or Blastomyces detected. False negative results may occur depending on extent of disease, and/or site of infection. Repeat testing on a new specimen if clinically indicated. Testing performed by: [facility], [address] [place] [address]., [address] Urine 10/01/2024 6:10 PM CDT 10/01/2024 6:27 PM CDT Gretta Martinez MD LAB MICROBIOLOGY - GEN ERAL ORDERABLES Final Result Performing Organization Address City/[facility] Co de Phone Number [place] [address] [place] [address] [facility] * Legionella antigen Urine (10/01/2024 6:10 PM CDT) Pathologist [facility] Legionella Ag Negative Negative Comment: Interpretive Data This test detects only Legionella pneumophila serogroup 1 antigen. Testing performed by [facility] ([phone]). Current interpretive data was last revised on 2019. Testing performed by: [facility], [address] [place]., [address] Urine 10/01/2024 6:10 PM CDT 10/01/2024 10:12 PM CDT Gretta Martinez MD LAB MICROBIOLOGY - GEN ERAL ORDERABLES Final Result Performing Organization Address City/[facility]/ZIP Co de Phone Number [facility] [address] [facility] [place] [address] * Respiratory pathogen panel Nasopharyngeal (10/01/2024 5:35 PM CDT) Pathologist [facility] Influenza A RNA Not Detected Not Detected Comment:Testing performed by : [facility], [address] [place]., [address] Influenza B RNA Not Detected Not Detected [place] Comment:Testing performed by : [facility], [address] [place]., [address] RSV RNA Not Detected Not Detected [place] Comment:Testing performed by : [facility], [address] [place]., [address] COVID-19 RNA Not Detected Not Detected [place] Comment:Testing performed by : [facility], [address] [place]., [address] Coronavirus 229E RNA Not Detected Not Detected [place] Comment:Testing performed by : [facility], [address] [place]., [address] Coronavirus HKU1 RNA Not Detected Not Detected [place] Comment:Testing performed by : [facility], [address] [place]., [address] Coronavirus NL63 RNA Not Detected Not Detected [place] Comment:Testing performed by : [facility], [address] [place]., [address] Coronavirus OC43 RNA Not Detected Not Detected [place] Comment:Testing performed by : [facility], [address] [place]., [address] Adenovirus DNA Not Detected Not Detected [place] Comment:Testing performed by : [facility], [address] [place]., [address] Metapneumovirus RNA Not Detected Not Detected [place] Comment:Testing performed by : [facility], [address] [place] [address]., [address] Rhinovirus/Enterov irus RNA Not Detected Not Detected [place] Comment:Testing performed by : [facility], [address] [place]., [address] Parainfluenza 1 RNA Not Detected Not Detected [place] Comment:Testing performed by : [facility], [address] [facility], [address] Parainfluenza 2 RNA Not Detected Not Detected [facility] Comment:Testing performed by : [facility], [address] [facility], [address] Parainfluenza 3 RNA Not Detected Not Detected [facility] Comment:Testing performed by : [facility], [address] [facility], [address] Parainfluenza 4 RNA Not Detected Not Detected [facility] Comment:Testing performed by : [facility], [address] [facility], [address] B. pertussis DNA Not Detected Not Detected [facility] Comment:Testing performed by : [facility], [address] [facility], [address] B. parapertussis DNA Not Detected Not Detected [facility] Comment:Testing performed by : [facility], [address] [facility], [address] C. pneumoniae DNA Not Detected Not Detected [facility] Comment:Testing performed by : [facility], [address] [facility], [address] M. pneumoniae DNA Not Detected Not Detected [facility] Comment:Testing performed by : [facility], [address] [place] [address], [address] Nasopharyngeal 10/01/2024 5: 35 PM CDT 10/01/2024 10:13 PM CDT [facility] - 10/01/2024 11:06 PM CDT Is the Patient experiencing symptoms consistent with COVID?->No Surveillance testing for transplant patient?->No Interpretive Data [employer] FilmArray Respiratory Panel (RP2.1) assay is a [...] assay has FDA clearance for testing of [employer] swabs. The performance of additional specimen types has been assessed by the performing laboratory. The performance characteristics of this assay have been determined by [facility] Molecular Infectious Disease Laboratory. Current interpretive data was last revised on 22. Gretta Martinez MD LAB MICROBIOLOGY - GEN ERAL ORDERABLES Final Result SABRA [address] [facility] Department [place] [address] * CT Chest Abdomen Pelvis [...] scarring from previous diverticulitis. There is a ovqgmqfo-ff-qdyck amount of stool throughout the colon. PERITONEUM: [...] Recommend correlation for bladder outlet obstruction. 4. Qhvjsomf-ri-wrcox amount of stool throughout the colon. Recommend correlation for constipation. 5. Unchanged T12 compression fracture with retropulsion of the posterior endplate causing spinal canal stenosis. Additional compression fractures as discussed above. 6. Additional findings as above. THIS IS AN ELECTRONICALLY VERIFIED FINAL REPORT 10/01/2024 4:42 PM - Electronically signed by Tristian Apple M.D. AM: AM Report ID: [id number] Reading Location: [id number] Procedure Note Tristian Apple MD - 10/01/2024 [...] chronic scarring fromprevious diverticulitis. There is a hftdaupy-cc-wjmwk amount of stool throughoutthe colon. PERITONEUM: No [...] bladder. Recommend correlation for bladderoutlet obstruction. 4. Howswdod-tr-coxrf amount of stool throughout the colon. Recommend correlation for constipation. 5. Unchanged T12 compression fracture with retropulsion of the posterior endplate causing spinal canal stenosis. Additional compression fracturesas discussed above. 6. Additional findings as above. THIS IS AN ELECTRONICALLY VERIFIED FINAL REPORT 10/01/2024 4:42 PM - Electronically signed by Tristian Apple M.D. AM: AM Report ID: [id number] Reading Location: [place] [address] Juan A Rios MD IMG CT PROCEDURES Final Result * Prepare RBC: 1 Units (10/01/2024 2:40 PM CDT) Units requested 1 Comment:Testing performed by : [address] [address] Units requested Ready SABRA PARKS Comment:Testing performed by : [address] [address] Unit Number [id number] Product code [id number] [facility] Blood Expiration Date [facility] Product Blood Type (for scanning) 5100 [facility] Product Blood Type OPOS [facility] Dispense Status DISPENSED [facility] Blood 10/01/2024 2:40 PM CDT 10/01/2024 2:39 PM CDT Lisette Loera NP BLOOD BANK PRODUCT ORDERABLES Final Result Performing Organization Address City/State/[facility] Co de Phone Number SABRA [address] [facility] Department [place] [address] * (ABNORMAL) Urinalysis reflex to microscopic and culture Urine (10/01/2024 2:02 PM CDT) Color, ur Yellow Yellow Comment:Testing performed by : [address] [address] Clarity, ur Clear Clear SABRA Comment:Testing performed by : [address] [address] Specific gravity, ur 1.014 1.003 - 1.030 SABRA Comment:Testing performed by : [address] [address] pH, urine 6.5 SABRA Comment: Interpretive Data U rine pH is affected by diet, medications, systemic acid-base disturbances, and renal tubular function. pH may affect urinary stone formation. For example, urine pH below 6.0 may help reduce the tendency for calcium phosphate stones and pH greater than 6.0 may reduce the tendency for uric acid stone formation. Source: [employer] Current Interpretive Data was last revised on 2017 Testing performed by: [facility] [address] [place] [address], [place]., [address] Protein, ur ql Negative Negative SABRA Comment:Testing performed by : [address], [place]., [address] Glucose, ur ql Negative Negative SABRA Comment:Testing performed by : [address], [place]., [address] Ketones, ur Negative Negative SABRA Comment:Testing performed by : [address] [address], [place]., [address] Bilirubin, ur Negative Negative SABRA Comment:Testing performed by : [address], [place]., [address] Blood, ur Negative Negative SABRA Comment:Testing performed by : [address], [place]., [address] Urobilinogen, ur 2.0(A) <2.0 mg/dL SABRA Comment:Testing performed by : [address], [place]., [address] Nitrite, ur Negative Negative SABRA Comment:Testing performed by : [address], [place]., [address] Leukocyte esterase, ur Negative Negative SABRA Comment:Testing performed by : [address], [place]., [address] UA reflex comment Reflex conditions for microscopic UA and culture not met. SABRA Comment:Testing performed by : [address], [place]., [address] Urine 10/01/2024 2:02 PM CDT 10/01/2024 2:07 PM CDT us Juan A Rios MD LAB MICROBIOLOGY - GENERAL ORDERABLES Final Result SABRA PARKS [address] [facility] Department [place] [address] * (ABNORMAL) Pro B-type natriuretic peptide (10/01/2024 [...] Eur Heart J. 2006:27:330-337. 2. Thomas RW, Peirce AM. J. AM Omar Cardiol: Cardiovasc Imag. 2009;2: 216- 225. Interpretive Data Last Revised Date: 2017. Testing performed by: [facility], [address] [place] [address]., [address] Blood 10/01/2024 12:3 7 PM CDT 10/01/2024 12:41 PM CDT us Gretta Martinez MD LAB BLOOD ORDERABLES F inal Result AMYAVX TU [address] [facility] Department [place] [address] * eGFR (10/01/2024 5:22 AM [...] was last reviewed 2021. Testing performed by: [address] [address] Blood 10/01/2024 5:22 AM CDT 10/01/2024 6:07 AM CDT us Laurel Desir MD LAB BLOOD ORDERABLES Final Res ult SABRA 8[address] [facility] Department [place] [address] * (ABNORMAL) Differential, auto (10/01/2024 5:22 AM CDT) Neutrophil abs 0.00(C) 1.50 - 6.50 K/cumm Comment: Critical value called within last 72 hrs Testing performed by: [address] [address] Imm gran abs 0.01 0.00 - 0.10 K/cumm SABRA PARKS Comment:Testing performed by : [address] [address] Lymphocyte abs 0.25(L) 0.80 - 3.30 K/cumm SABRA Comment:Testing performed by : [address] [address] Monocyte abs 0.01(L) 0.20 - 0.80 K/cumm SABRA PARKS Comment:Testing performed by : [address] [address] Eosinophil abs 0.00 0.00 - 0.50 K/cumm SABRA Comment:Testing performed by : [address] [address] Basophil abs 0.00 0.00 - 0.10 K/cumm SABRA Comment:Testing performed by : [address] [address] Neutrophil pct 0.0 % [facility] Comment: Differential consistent with previous result. Differential consistent with previous result. Interpretive Data Percent cell count reference ranges are not reported, since discordance with absolute values may lead to misinterpretation of CBC data. Current Interpretive Data was last revised on 2017. Testing performed by: [address] [address] Imm gran pct 3.7 % [facility] Comment: Interpretive Data Percent cell count reference ranges are not reported, since discordance with absolute values may lead to misinterpretation of CBC data. Current Interpretive Data was last revised on 2017. Testing performed by: [address] [address] Lymphocyte pct 92.6 % [facility] Comment: Interpretive Data Percent cell count reference ranges are not reported, since discordance with absolute values may lead to misinterpretation of CBC data. Current Interpretive Data was last revised on 2017. Testing performed by: [address] [address] Monocyte pct 3.7 % [facility] Comment: Interpretive Data Percent cell count reference ranges are not reported, since discordance with absolute values may lead to misinterpretation of CBC data. Current Interpretive Data was last revised on 2017. Testing performed by: [address] [address] Eosinophil pct 0.0 % [facility] Comment: Interpretive Data Percent cell count reference ranges are not reported, since discordance with absolute values may lead to misinterpretation of CBC data. Current Interpretive Data was last revised on 2017. Testing performed by: [address] [address] Basophil pct 0.0 % SABRA PARKS Comment: Interpretive Data Percent cell count reference ranges are not reported, since discordance with absolute values may lead to misinterpretation of CBC data. Current Interpretive Data was last revised on 2017. Testing performed by: [address] [address] Blood 10/01/2024 5:22 AM CDT 10/01/2024 6:07 AM CDT us Laurel Desir MD LAB BLOOD ORDERABLES Final Res ult SABRA [address] [facility] Department [place] [address] * (ABNORMAL) CBC with auto differential (10/01/2024 5:22 AM CDT) WBC 0.27(C) 3.80 - 9.90 K/cumm Comment: Critical value called within last 72 hrs Testing performed by: [address] [address] Hgb 7.1(L) 11.9 - 15.5 g/dL SABRA PARKS Comment:Testing performed by : [address] [address] Hct 21.2(L) 35.6 - 45.5 % SABRA PARKS Comment:Testing performed by : [address] [address] Plt 54(L) 150 - 400 K/cumm SABRA PARKS Comment:Testing performed by : [address] [address] MPV 11.8 9.1 - 12.3 fL SABRA PARKS Comment:Testing performed by : [address] [address] RBC 2.26(L) 3.90 - 5.20 M/cumm SABRA PARKS Comment:Testing performed by : [address] [address] MCV 93.8 81.3 - 96.4 fL SABRA PARKS Comment:Testing performed by : [address] [address] MCH 31.4 27.1 - 33.3 pg SABRA PARKS Comment:Testing performed by : [address] [address] MCHC 33.5 32.3 - 35.7 g/dL SABRA PARKS Comment:Testing performed by : [address] [address] RDW CV 15.8(H) 11.1 - 14.9 % SABRA PARKS Comment:Testing performed by : [address], [address] RDW SD 53.4(H) 35.7 - 48.1 fL SABRA PARKS Comment:Testing performed by : [address], [address] NRBC abs 0.00 0.00 - 0.01 K/cumm SABRA PARKS Comment:Testing performed by : [address], [address] Blood 10/01/2024 5:22 AM CDT 10/01/2024 6:07 AM CDT us Laurel Desir MD LAB BLOOD ORDERABLES Final Res ult Performing Organization Address City/[facility]/ZIP Co de Phone Number [address] [employer] [place] [address] * (ABNORMAL) Lactate dehydrogenase (LD) (10/01/2024 5:22 AM CDT) Lactate dehydrogenase (LDH) 378(H) 100 - 250 Units/L Comment:Testing performed by : [address] [address] Blood 10/01/2024 5:22 AM CDT 10/01/2024 6:07 AM CDT us Juan A Rios MD LAB BLOOD ORDERABL ES Final Result [address] [place] [address] * (ABNORMAL) Basic metabolic panel (10/01/2024 5:22 AM CDT) Sodium 141 135 - 145 mmol/L Comment:Testing performed by : [address], [place]., [address] Potassium, pl 3.5 3.3 - 4.9 mmol/L SABRA Comment:Testing performed by : [address] [address] Chloride 103 97 - 110 mmol/L SABRA Comment:Testing performed by : [address], [place]., [address] CO2 31 22 - 32 mmol/L SABRA Comment:Testing performed by : [address] [address] Anion gap 7 2 - 15 mmol/L SABRA Comment:Testing performed by : [address] [address] BUN 8 6 - 25 mg/dL BANNERPAOLA Comment:Testing performed by : [address], [place]., [address] Creatinine 0.43(L) 0.60 - 1.10 mg/dL SABRA Comment:Testing performed by : [address] [address] Glucose 121 70 - 199 mg/dL BANNERPAOLA Comment: Interpretive Data Fasting glucose >/= 126 [...] was last revised 2022. Testing performed by: [address], [place]., [address] Calcium 7.6(L) 8.5 - 10.3 mg/dL SABRA PARKS Comment:Testing performed by : [facility], [address] [place] [address]., [address] Blood 10/01/2024 5:22 AM CDT 10/01/2024 6:07 AM CDT us Laurel Desir MD LAB BLOOD ORDERABLES Final Res ult SABRA 37[address] [facility] Department [place] [address] * TRANSTHORACIC ECHO (TTE) COMPLETE W DOPPLER/CF W CONTRAST (09/30/2024 2:00 PM CDT) Estimated EF 55% % CONS SCIMAGE Anatomical Region Laterality Modality Ultrasound 09/30/2024 1:33 PM CDT Narrative 10/03/2024 4:32 PM CDT Transthoracic Echocardiographic Report Patient Name: MEIR GARCIA : 1940 (84y 7m) Gender: F Study Date: 09/30/2024 01:33:45 PM Ht(Inch): 60 Wt(Lb): 147.99 BSA: 1.69 Lever Miller: Nargis Longoria RDCS Location: [place] [address] Order Provider: LAUREL DESIR Heart Rate: 88 BMI: 28.9 BP: 123 / 79 Ref Provider: LAUREL DESIR PROCEDURES: Echocardiographic Report: ([id number]) Transthoracic complete echo with contrast, 2D, spectral [...] PM Ht(Inch): 60 Wt(Lb): 147.99 BSA: 1.69 Lever Miller: Nargis Longoria ELIOT Location: [place] [address] Order Provider:LAUREL DESIR Heart Rate: 88 BMI: 28.9 BP: 123 / 79 Ref Provider: MEDAVARAM,LAUREL PROCEDURES: Echocardiographic Report: ([id number]) Transthoracic complete echo withcontrast, 2D, spectral and [...] any testing performed. Electronically Signed By: Jonathan Bodureaux MD 10/03/2024 4:31:49 PM CDT us Laurel Desir MD CV ECHO PROCEDURES Final Resul t * Immature platelet fraction (09/30/2024 6:44 AM CDT) [facility] IPF 4.3 1.6 - 10.1 % Comment:Testing performed by : [facility], [address] [place] [address]., [address] Blood 09/30/2024 6:44 AM CDT 09/30/2024 6:47 AM CDT us Laurel Desir MD LAB BLOOD ORDERABLES Final Res ult SABRA [address] [facility] Department [place] [address] * (ABNORMAL) Blood smear review (09/30/2024 6:44 AM CDT) [facility] RBC morphology Consistent with RBC Indicies Comment:Testing performed by : [facility], [address] [place] [address]., [address] Platelet estimate Decreased(A) SABRA Comment:Testing performed by : [address] [address] Blood 09/30/2024 6:44 AM CDT 09/30/2024 6:47 AM CDT Laurel Desir MD LAB BLOOD ORDERABLES Final Res ult Performing Organization Address [facility] Co de Phone Number [facility] [employer] [place] [address] * eGFR (09/30/2024 6:44 AM CDT) eGFR >90 >=60 mL/min/1. 73 [...] was last reviewed 2021. Testing performed by: [facility], [address] [place] [address]., [address] Blood 09/30/2024 6:44 AM CDT 09/30/2024 6:47 AM CDT us Laurel Desir MD LAB BLOOD ORDERABLES Final Res ult Performing Organization Address City/[facility]/ZIP Co de Phone Number SABRA MH [address] Department [place] [address] * (ABNORMAL) Differential, auto (09/30/2024 6:44 AM CDT) Neutrophil abs 0.02(C) 1.50 - 6.50 K/cumm Comment: Critical value called within last 72 hrs Testing performed by: [address] [address] Imm gran abs 0.00 0.00 - 0.10 K/cumm SABRA Comment:Testing performed by : [address] [address] Lymphocyte abs 0.36(L) 0.80 - 3.30 K/cumm SABRA Comment:Testing performed by : [address] [address] Monocyte abs 0.00(L) 0.20 - 0.80 K/cumm SABRA Comment:Testing performed by : [address] [address] Eosinophil abs 0.00 0.00 - 0.50 K/cumm SABRA Comment:Testing performed by : [address] [address] Basophil abs 0.00 0.00 - 0.10 K/cumm SABRA Comment:Testing performed by : [address] [address] Neutrophil pct 5.3 % SABRA Comment: Differential consistent with previous result. Differential consistent with previous result. Interpretive Data Percent cell count reference ranges are not reported, since discordance with absolute values may lead to misinterpretation of CBC data. Current Interpretive Data was last revised on 2017. Testing performed by: [address] [address] Imm gran pct 0.0 % SABRA Comment: Interpretive Data Percent cell count reference ranges are not reported, since discordance with absolute values may lead to misinterpretation of CBC data. Current Interpretive Data was last revised on 2017. Testing performed by: [address] [address] Lymphocyte pct 94.7 % SABRA Comment: Interpretive Data Percent cell count reference ranges are not reported, since discordance with absolute values may lead to misinterpretation of CBC data. Current Interpretive Data was last revised on 2017. Testing performed by: [address] [address] Monocyte pct 0.0 % SABRA Comment: Interpretive Data Percent cell count reference ranges are not reported, since discordance with absolute values may lead to misinterpretation of CBC data. Current Interpretive Data was last revised on 2017. Testing performed by: [address] [address] Eosinophil pct 0.0 % SABRA Comment: Interpretive Data Percent cell count reference ranges are not reported, since discordance with absolute values may lead to misinterpretation of CBC data. Current Interpretive Data was last revised on 2017. Testing performed by: [address] [address] Basophil pct 0.0 % SABRA Comment: Interpretive Data Percent cell count reference ranges are not reported, since discordance with absolute values may lead to misinterpretation of CBC data. Current Interpretive Data was last revised on 2017. Testing performed by: [address] [address] Blood 09/30/2024 6:44 AM CDT 09/30/2024 6:47 AM CDT us Laurel Desir MD LAB BLOOD ORDERABLES Final Res ult [facility] [address] [facility] Department [place] [address] * (ABNORMAL) CBC with auto differential (09/30/2024 6:44 AM CDT) WBC 0.38(C) 3.80 - 9.90 K/cumm Comment: Critical value called within last 72 hrs Testing performed by: [address] [address] Hgb 7.5(L) 11.9 - 15.5 g/dL SABRA Comment:Testing performed by : [address] [address] Hct 22.0(L) 35.6 - 45.5 % SABRA Comment:Testing performed by : [address] [address] Plt 49(C) 150 - 400 K/cumm SABRA Comment: Platelet count confirmed by additional testing. Critical platelet count threshold determined by patient location: Outpatient:<50 K/cumm , Inpatient adults:<20 K/cumm , Inpatient pediatric:<25 K/cumm, BMT service:<10 K/cumm Testing performed by: [address] [address] MPV 10.4 9.1 - 12.3 fL SABRA Comment:Testing performed by : [address] [address] RBC 2.39(L) 3.90 - 5.20 M/cumm SABRA Comment:Testing performed by : [address] [address] MCV 92.1 81.3 - 96.4 fL SABRA Comment:Testing performed by : [address] [address] MCH 31.4 27.1 - 33.3 pg SABRA Comment:Testing performed by : [address] [address] MCHC 34.1 32.3 - 35.7 g/dL SABRA Comment:Testing performed by : [address] [address] RDW CV 15.6(H) 11.1 - 14.9 % SABRA Comment:Testing performed by : [address] [address] RDW SD 51.9(H) 35.7 - 48.1 fL SABRA Comment:Testing performed by : [address] [address] NRBC abs 0.00 0.00 - 0.01 K/cumm SABRA Comment:Testing performed by : [address] [address] Blood 09/30/2024 6:44 AM CDT 09/30/2024 6:47 AM CDT us Laurel Desir MD LAB BLOOD ORDERABLES Edited Re sult - Final BANNERPAOLA [address] [facility] Department [place] [address] * (ABNORMAL) Basic metabolic panel (09/30/2024 6:44 AM CDT) Sodium 139 135 - 145 mmol/L Comment:Testing performed by : [address] [address] Potassium, pl 3.7 3.3 - 4.9 mmol/L SABRA Comment:Testing performed by : [address] [address] Chloride 103 97 - 110 mmol/L SABRA Comment:Testing performed by : [address] [address] CO2 30 22 - 32 mmol/L SABRA Comment:Testing performed by : [address] [address] Anion gap 6 2 - 15 mmol/L SABRA Comment:Testing performed by : [address] [address] BUN 9 6 - 25 mg/dL SABRA Comment:Testing performed by : [address] [address] Creatinine 0.49(L) 0.60 - 1.10 mg/dL SABRA Comment:Testing performed by : [address] [address] Glucose 128 70 - 199 mg/dL SABRA [...] was last revised 2022. Testing performed by: [address] [address] Calcium 7.8(L) 8.5 - 10.3 mg/dL SABRA Comment:Testing performed by : [address] [address] Blood 09/30/2024 6:44 AM CDT 09/30/2024 6:47 AM CDT us Laurel Desir MD LAB BLOOD ORDERABLES Final Res ult Performing Organization Address [facility] Co de Phone Number SABRA [address] [facility] [place] [address] * (ABNORMAL) Troponin T high-sensitivity 6-hour (09/29/2024 2:57 PM CDT) Trop T hs 62(H) <=14 ng/L Comment: Interpretive Data For further hscTnT resources including the diagnostic algorithm and an aid in interpretation, copy and paste this link: https://nrl.testcatalog.org/show/hsTrop Current Interpretive Data last revised 2020. Testing performed by: [address] [address] Trop T hs delta -2 ng/L SABRA Comment:Testing performed by : [address] [address] Trop T hs interp Insignificant SABRA Comment:Testing performed by : [address] [address] Blood 09/29/2024 2:57 PM CDT 09/29/2024 3:09 PM CDT us Lee Gordon DO LAB BLOOD ORDERABLES Final Resul t Performing Organization Address City/[facility] Co de Phone Number [facility] [address] [facility] Department [place] [place] [address] * (ABNORMAL) Troponin T high-sensitivity 4-hour (09/29/2024 12:38 PM CDT) Trop T hs 67(H) <=14 ng/L Comment: Interpretive Data For further hscTnT resources including the diagnostic algorithm and an aid in interpretation, copy and paste this link: https://[email or web address]/show/hsTrop Current Interpretive Data last revised 2020. Testing performed by: [address] [address] Trop T hs delta 3 ng/L SABRA PARKS Comment:Testing performed by : [address] [address] Trop T hs interp Insignificant SABRA Comment:Testing performed by : [address] [address] Blood 09/29/2024 12:3 8 PM CDT 09/29/2024 12:43 PM CDT Lee Gordon DO LAB BLOOD ORDERABLES Final Resul t SABRA PARKS [address] [facility] [place] [address] * (ABNORMAL) Troponin T high-sensitivity 2-hour (09/29/2024 10:44 AM CDT) Trop T hs 65(H) <=14 ng/L Comment: Interpretive Data For further hscTnT resources including the diagnostic algorithm and an aid in interpretation, copy and paste this link: https://nrl.[email or web address]/show/hsTrop Current Interpretive Data last revised 2020. Testing performed by: [address] [address] Trop T hs delta 1 ng/L SABRA PARKS Comment:Testing performed by : [address] [address] Trop T hs interp Insignificant SABRA PARKS Comment:Testing performed by : [address] [place] [address] Blood 09/29/2024 10:4 4 AM CDT 09/29/2024 10:59 AM CDT Lee Gordon DO LAB BLOOD ORDERABLES Final Resul t Performing Organization Address [facility] de Phone Number SABRA [address] [place] [address] [employer] [place] [address] * (ABNORMAL) Troponin T high-sensitivity 6-hour (09/29/2024 8:11 AM CDT) Trop T hs 68(H) <=14 ng/L Comment: Interpretive Data For further hscTnT resources including the diagnostic algorithm and an aid in interpretation, copy and paste this link: https://nrl.testcatalog.org/show/hsTrop Current Interpretive Data last revised 2020. Testing performed by: [address] [address] Trop T hs delta See Comment ng/L SABRA Comment: Inappropriate collection time to report a delta. Testing performed by: [address] [address] Trop T hs pct delta See Comment % SABRA Comment: Inappropriate collection time to report a delta. Testing performed by: [address] [address] Trop T hs interp See Comment SABRA Comment: Inappropriate collection time to report a delta. Testing performed by: [address] [address] Blood 09/29/2024 8:11 AM CDT 09/29/2024 9:04 AM CDT Philip Bran MD LAB BLOOD ORDERABLES Aylin l Result Performing Organization Address [facility] Co de Phone Number [facility] [address] [facility] Department [place] [address] * (ABNORMAL) Troponin T high-sensitivity series (baseline, 2hr, 4hr, 6hr) (09/29/2024 8:11 AM CDT) [facility] Trop T hs 64(H) <=14 ng/L Comment: Interpretive Data For further hscTnT resources including the diagnostic algorithm and an aid in interpretation, copy and paste this link: https://nrl.testcatalog.org/show/hsTrop Current Interpretive Data last revised 2020. Testing performed by: [facility], [address] [place] [address]., [address] Blood 09/29/2024 8:11 AM CDT 09/29/2024 9:04 AM CDT us Lee Gordon DO LAB BLOOD ORDERABLES Final Resul t Performing Organization Address [facility] Co de Phone Number SABRA [address] [place] [address] * Blood smear review (09/29/2024 8:11 AM CDT) [facility] RBC morphology Consistent with RBC Indicies Comment:Testing performed by : [address] [address] Platelet estimate Automated Count Confirmed SABRA Comment:Testing performed by : [facility], [address] [place] [address]., [address] Blood 09/29/2024 8:11 AM CDT 09/29/2024 9:04 AM CDT us Laurel Desir MD LAB BLOOD ORDERABLES Final Res ult Performing Organization Address [facility] Co de Phone Number [place] [id number] [facility] [place] [address] * eGFR (09/29/2024 8:11 AM CDT) [facility] eGFR >90 >=60 mL/min/1. 73 m2 Comment: [...] was last reviewed 2021. Testing performed by: [address] [address] Blood 09/29/2024 8:11 AM CDT 09/29/2024 9:04 AM CDT us Lee Gordon DO LAB BLOOD ORDERABLES Final Resul t SABRA [facility] Department [place] [address] * (ABNORMAL) Differential, auto (09/29/2024 8:11 AM CDT) Neutrophil abs 0.02(C) 1.50 - 6.50 K/cumm Comment: Critical value called within last 72 hrs Testing performed by: [address] [address] Imm gran abs 0.00 0.00 - 0.10 K/cumm SABRA Comment:Testing performed by : [address] [address] Lymphocyte abs 0.29(L) 0.80 - 3.30 K/cumm SABRA Comment:Testing performed by : [address] [address] Monocyte abs 0.00(L) 0.20 - 0.80 K/cumm SABRA Comment:Testing performed by : [address] [address] Eosinophil abs 0.00 0.00 - 0.50 K/cumm SABRA Comment:Testing performed by : [address] [address] Basophil abs 0.00 0.00 - 0.10 K/cumm SABRA Comment:Testing performed by : [address] [address] Neutrophil pct 6.5 % [facility] Comment: Differential consistent with previous result. Interpretive Data Percent cell count reference ranges are not reported, since discordance with absolute values may lead to misinterpretation of CBC data. Current Interpretive Data was last revised on 2017. Testing performed by: [address] [address] Imm gran pct 0.0 % [facility] Comment: Interpretive Data Percent cell count reference ranges are not reported, since discordance with absolute values may lead to misinterpretation of CBC data. Current Interpretive Data was last revised on 2017. Testing performed by: [address] [address] Lymphocyte pct 93.5 % [facility] Comment: Interpretive Data Percent cell count reference ranges are not reported, since discordance with absolute values may lead to misinterpretation of CBC data. Current Interpretive Data was last revised on 2017. Testing performed by: [address] [address] Monocyte pct 0.0 % [facility] Comment: Interpretive Data Percent cell count reference ranges are not reported, since discordance with absolute values may lead to misinterpretation of CBC data. Current Interpretive Data was last revised on 2017. Testing performed by: [address] [address] Eosinophil pct 0.0 % [facility] Comment: Interpretive Data Percent cell count reference ranges are not reported, since discordance with absolute values may lead to misinterpretation of CBC data. Current Interpretive Data was last revised on 2017. Testing performed by: [address] [address] Basophil pct 0.0 % [facility] Comment: Interpretive Data Percent cell count reference ranges are not reported, since discordance with absolute values may lead to misinterpretation of CBC data. Current Interpretive Data was last revised on 2017. Testing performed by: [address] [address] Blood 09/29/2024 8:11 AM CDT 09/29/2024 9:04 AM CDT us Laurel Desir MD LAB BLOOD ORDERABLES Final Res ult SABRA [address] [facility] Department [place] [address] * (ABNORMAL) CBC with auto differential (09/29/2024 8:11 AM CDT) WBC 0.31(C) 3.80 - 9.90 K/cumm Comment: Critical value called within last 72 hrs Testing performed by: [address] [address] Hgb 7.5(L) 11.9 - 15.5 g/dL SABRA Comment:Testing performed by : [address] [address] Hct 21.6(L) 35.6 - 45.5 % SABRA Comment:Testing performed by : [address] [address] Plt 55(L) 150 - 400 K/cumm SABAR Comment:Testing performed by : [address] [address] MPV 10.8 9.1 - 12.3 fL SABRA Comment:Testing performed by : [address] [address] RBC 2.38(L) 3.90 - 5.20 M/cumm SABRA Comment:Testing performed by : [address] [address] MCV 90.8 81.3 - 96.4 fL SABRA Comment:Testing performed by : [address] [address] MCH 31.5 27.1 - 33.3 pg SABRA PARKS Comment:Testing performed by : [address] [place] [address] MCHC 34.7 32.3 - 35.7 g/dL SABRA PARKS Comment:Testing performed by : [address], [address] RDW CV 15.5(H) 11.1 - 14.9 % SABRA PARKS Comment:Testing performed by : [address], [address] RDW SD 50.6(H) 35.7 - 48.1 fL SABRA APRKS Comment:Testing performed by : [address], [address] NRBC abs 0.00 0.00 - 0.01 K/cumm SABRA Comment:Testing performed by : [address], [address] Blood 09/29/2024 8:11 AM CDT 09/29/2024 9:04 AM CDT us Laurel Desir MD LAB BLOOD ORDERABLES Edited Re sult - Final Performing Organization Address City/[facility] Co de Phone Number [address] [employer] [place], [place] [id number] * Magnesium (09/29/2024 8:11 AM CDT) Magnesium 2.0 1.4 - 2.5 mg/dL Comment:Testing performed by : [address], [address] Blood 09/29/2024 8:11 AM CDT 09/29/2024 9:04 AM CDT us Lee Gordon DO LAB BLOOD ORDERABLES Final Resul t Performing Organization Address City/[facility] Co de Phone Number [address] [place] [address] * (ABNORMAL) Basic metabolic panel (09/29/2024 8:11 AM CDT) Sodium 143 135 - 145 mmol/L Comment:Testing performed by : [address] [address] Potassium, pl 3.2(L) 3.3 - 4.9 mmol/L [facility] Comment:Testing performed by : [address], [place]., [address] Chloride 106 97 - 110 mmol/L [facility] Comment:Testing performed by : [address] [address] CO2 27 22 - 32 mmol/L [facility] Comment:Testing performed by : [address], [place]., [address] Anion gap 10 2 - 15 mmol/L [facility] Comment:Testing performed by : [address] [address] BUN 11 6 - 25 mg/dL [facility] Comment:Testing performed by : [address], [place]., [address] Creatinine 0.51(L) 0.60 - 1.10 mg/dL [facility] Comment:Testing performed by : [address] [address] Glucose 129 70 - 199 mg/dL [facility] Comment: Interpretive Data Fasting glucose >/= 126 [...] was last revised 2022. Testing performed by: [address] [address] Calcium 7.1(L) 8.5 - 10.3 mg/dL [facility] Comment:Testing performed by : [address] [address] Blood 09/29/2024 8:11 AM CDT 09/29/2024 9:04 AM CDT us Lee Gordon DO LAB BLOOD ORDERABLES Final Resul t Performing Organization Address [facility] Co de Phone Number SABRA [address] [place] [employer] [place] [address] * Transfuse RBC (09/29/2024 6:17 AM CDT) Blood us Laurel Desir MD BLOOD TRANSFUSION ORDERABLES F inal Result Performing Organization Address [facility] de Phone Number SABRA [address] [facility] [place] [address] * (ABNORMAL) Troponin T high-sensitivity 4-hour (09/29/2024 5:24 AM CDT) Trop T hs 65(H) <=14 ng/L Comment: Interpretive Data For further hscTnT resources including the diagnostic algorithm and an aid in interpretation, copy and paste this link: https://nrl.testcatalog.org/show/hsTrop Current Interpretive Data last revised 2020. Testing performed by: [facility], [address] [place] [address]., [address] Trop T hs delta 29(C) ng/L SABRA PARKS Comment: Critical Result called to and read back by [id number], DATE: 2024-09-29 06:12:26 BY: [id number] Testing performed by: [address] [address] Trop T hs interp Significa nt(C) SABRA PARKS Comment: Critical Result called to and read back by [id number], DATE: 2024-09-29 06:12:26 BY: [email or web address] Testing performed by: [facility], [address] [place] [address]., [address] Blood 09/29/2024 5:24 AM CDT 09/29/2024 5:30 AM CDT us Philip Bran MD LAB BLOOD ORDERABLES Aylin l Result Performing Organization Address [facility] Co de Phone Number SABRA [facility] Department [place] [address] * eGFR (09/29/2024 5:24 AM CDT) eGFR [...] was last reviewed 2021. Testing performed by: [address] [address] Blood 09/29/2024 5:24 AM CDT 09/29/2024 5:28 AM CDT us Laurel Desir MD LAB BLOOD ORDERABLES Final Res ult Performing Organization Address City/[facility] Co de Phone Number AMY[address] Department [place] [place] [address] * (ABNORMAL) Hepatic function panel (09/29/2024 5:24 AM CDT) Pathologist [facility] Bilirubin, total 1.3(H) 0.1 - 1.2 mg/dL Comment:Testing performed by : [address] [address] Bilirubin, direct 0.6(H) 0.1 - 0.3 mg/dL SABRA Comment:Testing performed by : [address] [place] [address] Protein, pl 6.1(L) 6.5 - 8.5 g/dL SABRA PARKS Comment:Testing performed by : [address] [address] Albumin 3.5 3.5 - 5.0 g/dL SABRA PARKS Comment:Testing performed by : [address] [address] Alk phos 40 40 - 130 Units/L SABRA Comment:Testing performed by : [address] [address] ALT 31 7 - 45 Units/L SABRA Comment:Testing performed by : [address] [address] AST 22 10 - 45 Units/L SABRA Comment:Testing performed by : [address] [address] Blood 09/29/2024 5:24 AM CDT 09/29/2024 5:28 AM CDT us Jackie Williamson MD LAB BLOOD ORDERABLES F inal Result [facility] [address] [facility] Department [place] [address] * (ABNORMAL) Basic metabolic panel (09/29/2024 5:24 AM CDT) Pathologist [facility] Sodium 139 135 - 145 mmol/L Comment:Testing performed by : [address] [address] Potassium, pl 3.3 3.3 - 4.9 mmol/L SABRA Comment:Testing performed by : [address] [address] Chloride 103 97 - 110 mmol/L SABRA Comment:Testing performed by : [address] [address] CO2 28 22 - 32 mmol/L SABRA Comment:Testing performed by : [address] [address] Anion gap 8 2 - 15 mmol/L SABRA Comment:Testing performed by : [address] [address] BUN 12 6 - 25 mg/dL SABRA Comment:Testing performed by : [address] [address] Creatinine 0.56(L) 0.60 - 1.10 mg/dL SABRA Comment:Testing performed by : [address] [address] Glucose 140 70 - 199 mg/dL SABRA [...] was last revised 2022. Testing performed by: [address] [address] Calcium 7.3(L) 8.5 - 10.3 mg/dL SABRA Comment:Testing performed by : [address] [address] Blood 09/29/2024 5:24 AM CDT 09/29/2024 5:28 AM CDT us Laurel Desir MD LAB BLOOD ORDERABLES Final Res ult [facility] [address] [facility] Department [place] [address] * (ABNORMAL) Troponin T high-sensitivity 2-hour (09/29/2024 3:05 AM CDT) Trop T hs 73(H) <=14 ng/L Comment: Interpretive Data For further hscTnT resources including the diagnostic algorithm and an aid in interpretation, copy and paste this link: [email or web address].[email or web address]/show/[email or web address] Current Interpretive Data last revised 2020. Testing performed by: [address] [address] Trop T hs delta 37(C) ng/L SABRA Comment: Critical Result called to and read back by [email or web address], DATE: 2024-09-29 03:55:56 BY: [id number] Testing performed by: [address] [address] Trop T hs interp Significa nt(C) SABRA Comment: Critical Result called to and read back by [email or web address], DATE: 2024-09-29 03:55:56 BY: [id number] Testing performed by: [address] [address] Blood 09/29/2024 3:05 AM CDT 09/29/2024 3:14 AM CDT us Philip Bran MD LAB BLOOD ORDERABLES Aylin l Result Performing Organization Address [facility]/ZIP Co de Phone Number [place] [phone] [facility] Department [place] [address] * (ABNORMAL) Troponin T high-sensitivity series (baseline, 2hr, 4hr, 6hr) (09/29/2024 1:09 AM CDT) Trop T hs 36(H) <=14 ng/L Comment: Interpretive Data For further hscTnT resources including the diagnostic algorithm and an aid in interpretation, copy and paste this link: [email or web address]://nrl.testDeitek [email or web address]/show/[email or web address] Current Interpretive Data last revised 2020. Testing performed by: [address] [address] Blood 09/29/2024 1:09 AM CDT 09/29/2024 1:28 AM CDT Philip Bran MD LAB BLOOD ORDERABLES Aylin l Result Performing Organization Address City/[facility]/ZIP Co de Phone Number [place] [phone] [facility] Department [place] [address] * eGFR (09/29/2024 1:09 AM CDT) eGFR [...] was last reviewed 2021. Testing performed by: [address] [address] Blood 09/29/2024 1:09 AM CDT 09/29/2024 1:28 AM CDT us Philip Bran MD LAB BLOOD ORDERABLES Aylin l Result Performing Organization Address [facility] Co de Phone Number [place] [address] [facility] Department [place] [address] * (ABNORMAL) Differential, auto (09/29/2024 1:09 AM CDT) Neutrophil abs 0.02(C) 1.50 - 6.50 K/cumm Comment: Critical value called within last 72 hrs Testing performed by: [address] [address] Imm gran abs 0.00 0.00 - 0.10 K/cumm SABRA Comment:Testing performed by : [address] [address] Lymphocyte abs 0.26(L) 0.80 - 3.30 K/cumm SABRA Comment:Testing performed by : [address] [address] Monocyte abs 0.00(L) 0.20 - 0.80 K/cumm SABRA Comment:Testing performed by : [address] [address] Eosinophil abs 0.00 0.00 - 0.50 K/cumm [facility] Comment:Testing performed by : [address], [place]., [address] Basophil abs 0.00 0.00 - 0.10 K/cumm [place] Comment:Testing performed by : [address] [address] Neutrophil pct 7.1 % [facility] Comment: Interpretive Data Percent cell count reference ranges are not reported, since discordance with absolute values may lead to misinterpretation of CBC data. Current Interpretive Data was last revised on 2017. Testing performed by: [address] [address] Imm gran pct 0.0 % [facility] Comment: Interpretive Data Percent cell count reference ranges are not reported, since discordance with absolute values may lead to misinterpretation of CBC data. Current Interpretive Data was last revised on 2017. Testing performed by: [address] [address] Lymphocyte pct 92.9 % [facility] Comment: Interpretive Data Percent cell count reference ranges are not reported, since discordance with absolute values may lead to misinterpretation of CBC data. Current Interpretive Data was last revised on 2017. Testing performed by: [address] [address] Monocyte pct 0.0 % [facility] Comment: Interpretive Data Percent cell count reference ranges are not reported, since discordance with absolute values may lead to misinterpretation of CBC data. Current Interpretive Data was last revised on 2017. Testing performed by: [address] [address] Eosinophil pct 0.0 % [facility] Comment: Interpretive Data Percent cell count reference ranges are not reported, since discordance with absolute values may lead to misinterpretation of CBC data. Current Interpretive Data was last revised on 2017. Testing performed by: [facility], [address] [place] [address]., [address] Basophil pct 0.0 % SABRA Comment: Interpretive Data Percent cell count reference ranges are not reported, since discordance with absolute values may lead to misinterpretation of CBC data. Current Interpretive Data was last revised on 2017. Testing performed by: [address] [address] Blood 09/29/2024 1:09 AM CDT 09/29/2024 1:16 AM CDT us Laurel Desir MD LAB BLOOD ORDERABLES Final Res ult Performing Organization Address [facility] Co de Phone Number [place] [phone] [facility] [place] [address] * ABO / Rh Confirmation Testing (09/29/2024 1:09 AM CDT) Pathologist [facility] ABO/Rh Confirmation O Positive [facility] Comment:Testing performed by : [facility], [address] [place] [address]., [address] Blood 09/29/2024 1:09 AM CDT 09/29/2024 1:16 AM CDT Laurel Desir MD LAB BLOOD ORDERABLES Final Res ult Performing Organization Address City/State/[facility] Co de Phone Number [place] [phone] [facility] [place] [place] [address] [facility] * (ABNORMAL) Pro B-type natriuretic peptide (09/29/2024 [...] Heart J. 2006:27:330-337. 2. Thomas RW, Pierce SERRANO. J. AM Omar Cardiol: Cardiovasc Imag. 2009;2: 216- 225. Interpretive Data Last Revised Date: 2017. Testing performed by: [address] [address] Blood 09/29/2024 1:09 AM CDT 09/29/2024 1:28 AM CDT us Philip Bran MD LAB BLOOD ORDERABLES Aylin freedman Result [facility] [place] [address] [facility] Department [place] [address] * (ABNORMAL) CBC with auto differential (09/29/2024 1:09 AM CDT) WBC 0.28(C) 3.80 - 9.90 K/cumm Comment: Critical value called within last 72 hrs Testing performed by: [address] [address] Hgb 5.7(C) 11.9 - 15.5 g/dL SABRA Comment: This result has been called to [id number] by [email or web address] on 09/29/2024 01:35:24, and has not been read back. Testing performed by: [address], [address] Hct 16.5(L) 35.6 - 45.5 % SABRA Comment:Testing performed by : [address], [address] Plt 62(L) 150 - 400 K/cumm SABRA Comment:Testing performed by : [address], [address] MPV 10.3 9.1 - 12.3 fL SABRA Comment:Testing performed by : [address], [address] RBC 1.77(L) 3.90 - 5.20 M/cumm SABRA Comment:Testing performed by : [address], [address] MCV 93.2 81.3 - 96.4 fL [place] Comment:Testing performed by : [address], [address] MCH 32.2 27.1 - 33.3 pg [place] Comment:Testing performed by : [address], [address] MCHC 34.5 32.3 - 35.7 g/dL SABRA Comment:Testing performed by : [address], [address] RDW CV 15.1(H) 11.1 - 14.9 % [facility] Comment:Testing performed by : [address], [address] RDW SD 50.9(H) 35.7 - 48.1 fL [place] Comment:Testing performed by : [address], [address] NRBC abs 0.00 0.00 - 0.01 K/cumm SABRA Comment:Testing performed by : [address], [address] Morphologic Screen Results confirmed by manual morphology review. SABRA PARKS Comment:Testing performed by : [facility], [facility], [place]., [address] Blood 09/29/2024 1:09 AM CDT 09/29/2024 1:16 AM CDT Laurel Desir MD LAB BLOOD ORDERABLES Final Res ult SABRA PARKS [address] [facility] Department [place] [address] * Blood culture Blood (09/29/2024 1:09 AM CDT) Report Final Report: No growth Comment:Testing performed by : [facility], [address] [facility], [place]., [address] Blood 09/29/2024 1:09 AM CDT 09/29/2024 5:34 AM CDT Narrative SABRA PARKS - 10/03/2024 7:00 AM CDT Collection->Peripheral 1. [...] performance characteristics have been verified by the [facility] Microbiology Laboratory. For questions about this culture, contact the Microbiology Laboratory at [phone]. Interpretive data was last revised on 24. us Laurel Desir MD LAB MICROBIOLOGY - GENERAL ORD ERABLES Final Result Performing Organization Address City/[facility] Co de Phone Number [address] [address] * Magnesium (09/29/2024 1:09 AM CDT) Pathologist [facility] Magnesium 2.0 1.4 - 2.5 mg/dL Comment:Testing performed by : [address] [address] Blood 09/29/2024 1:09 AM CDT 09/29/2024 1:28 AM CDT us Philip Bran MD LAB BLOOD ORDERABLES Aylin l Result Performing Organization Address [facility] Co de Phone Number [address] [address] * (ABNORMAL) Basic metabolic panel (09/29/2024 1:09 AM CDT) Pathologist [facility] Sodium 138 135 - 145 mmol/L Comment:Testing performed by : [address] [address] Potassium, pl 3.4 3.3 - 4.9 mmol/L SABRA Comment:Testing performed by : [address] [address] Chloride 103 97 - 110 mmol/L SABRA Comment:Testing performed by : [address] [address] CO2 25 22 - 32 mmol/L SABRA Comment:Testing performed by : [address] [address] Anion gap 10 2 - 15 mmol/L SABRA Comment:Testing performed by : [address] [address] BUN 13 6 - 25 mg/dL SABRA Comment:Testing performed by : [address] [address] Creatinine 0.58(L) 0.60 - 1.10 mg/dL SABRA Comment:Testing performed by : [address] [address] Glucose 178 70 - 199 mg/dL SABRA Comment: Interpretive [...] was last revised 2022. Testing performed by: [address] [address] Calcium 7.5(L) 8.5 - 10.3 mg/dL SABRA Comment:Testing performed by : [address] [address] Blood 09/29/2024 1:09 AM CDT 09/29/2024 1:28 AM CDT us Philip Bran MD LAB BLOOD ORDERABLES Aylin freedman Result [place] [address] [facility] Department of Laboratories [place], [place] [id number] * XR Chest 1 View (09/29/2024 12:41 AM CDT) Anatomical Region Laterality Modality Body, Chest N/A Computed Radiogr aphy 09/29/2024 1:22 AM CDT Narrative 09/29/2024 1:23 AM CDT EXAM DESCRIPTION: XR CHEST 1 VIEW REASON FOR STUDY: SOB Per pt have sob today TECHNIQUE: 1 radiographic [...] Electronically signed by Lee Lee M.D. KT: FABI Report ID: [id number] Reading Location: [place] [address] Procedure Note Lee Lee MD - 09/29/2024 [...] Electronically signed by Lee Lee M.D. KT: FABI Report ID: [id number] Reading Location: [place] [address] Laurel Desir MD IMG XR PROCEDURES Final Result * ECG 12 lead (09/29/2024 12:29 AM CDT) Ventricular Rate EKG/Min 101 BPM [facility] Atrial Rate 101 BPM [facility] MD-Interval (MSEC) 186 ms [facility] QRS-Interval (MSEC) 106 ms [facility] QT-Interval (MSEC) 342 ms [facility] QTc 443 ms [facility] P [place] 33 degrees [facility] R [place] 25 degrees [facility] T [place] 71 degrees [facility] Diagnosis Sinus tachycardia Nonspecific ST abnormality Abnormal ECG No previous ECGs available Confirmed by HALEY EDWARDS M.D. ([id number]) on 09/29/2024 5:13:52 PM [facility] 09/29/2024 12:2 9 AM CDT 09/29/2024 5:13 PM CDT Philip Bran MD ECG ORDERABLES Final Res ult [facility] * ABO/Rh (09/29/2024 12:06 AM CDT) [facility] ABO/Rh O Positive Comment:Testing performed by : [facility], [address] [place] [address], [place]., [address] Blood 09/29/2024 12:0 6 AM CDT 09/29/2024 12:40 AM CDT Narrative [facility] - 09/29/2024 1:21 AM CDT Has the patient had Daratumumab or Isatuximab in the past 6 months?->Unknown Laurel Desir MD LAB BLOOD BANK TEST ORDERABLES Final Result Performing Organization Address [facility] Co de Phone Number [place] [phone] [facility] [place] [address] * Crossmatch (09/29/2024 12:06 AM CDT) [facility] Crossmatch Compatible [facility] Unit number for crossmatch [id number] [facility] Crossmatch Compatible [facility] Unit number for crossmatch [id number] [facility] Blood 09/29/2024 12:0 6 AM CDT 09/29/2024 12:40 AM CDT Philip Bran MD LAB BLOOD BANK TEST ORDER LAITH Edited Result - Final Performing Organization Address City/[facility]/ZIP Co de Phone Number [address] [place] [address] * Antibody screen (09/29/2024 12:06 AM CDT) Rivera, indirect, Gel Interpretation Negative [facility]SC Comment:Testing performed by : [address] [address] Blood 09/29/2024 12:0 6 AM CDT 09/29/2024 12:40 AM CDT Narrative SABRA - 09/29/2024 1:21 AM CDT Has the patient had Daratumumab or Isatuximab in the past 6 months?->Unknown us Laurel Desir MD LAB BLOOD BANK TEST ORDERABLES Final Result SABRA [address] [facility] [place] [address] * Prepare RBC: 1 Units (09/28/2024 11:37 PM CDT) Pathologist [facility] Units requested 1 Comment:Testing performed by : [address] [address] Units requested Ready SABRA Comment:Testing performed by : [facility], [address] [place] [address]., [address] Unit Number [id number] Product code [id number] [facility] Blood Expiration Date [id number] [facility] Product Blood Type (for scanning) 5100 [facility] Product Blood Type OPOS [facility] Dispense Status DISPENSED [facility] Blood 09/28/2024 11:3 7 PM CDT 09/28/2024 11:37 PM CDT Laurel Desir MD BLOOD BANK PRODUCT ORDERABLES Final Result SABRA [facility] [employer] [place] [address] * Urine culture Urine, clean voided (09/28/2024 11:20 PM CDT) Report Final Report: No growth Comment:Testing performed by : [facility], [address] [facility] [place]., [address] Urine, clean voided 09/28/2024 11:20 PM CDT 09/29/2024 2:26 AM CDT Narrative SABRA - 09/30/2024 7:05 AM CDT Indications for Culture:->Recent positive UA Testing performed by [facility] ([phone]) us Laurel Desir MD LAB MICROBIOLOGY - GENERAL ORD ERABLES Final Result SABRA [address] [facility] Department [place] [address] * (ABNORMAL) Differential, auto (09/28/2024 10:39 PM CDT) Neutrophil abs 0.02(C) 1.50 - 6.50 K/cumm Comment: This result has been called to [id number] by [id number] on 09/28/2024 23:03:50, and has been read back. Testing performed by: [address] [address] Imm gran abs 0.00 0.00 - 0.10 K/cumm SABRA Comment:Testing performed by : [address] [address] [address] Lymphocyte abs 0.62(L) 0.80 - 3.30 K/cumm SABRA Comment:Testing performed by : [address] [address] Monocyte abs 0.01(L) 0.20 - 0.80 K/cumm SABRA Comment:Testing performed by : [address] [address] Eosinophil abs 0.00 0.00 - 0.50 K/cumm SABRA Comment:Testing performed by : [address] [address] Basophil abs 0.00 0.00 - 0.10 K/cumm SABRA Comment:Testing performed by : [address] [address] Neutrophil pct 3.1 % SABRA Comment: Interpretive Data Percent cell count reference ranges are not reported, since discordance with absolute values may lead to misinterpretation of CBC data. Current Interpretive Data was last revised on 2017. Testing performed by: [address] [address] Imm gran pct 0.0 % [facility] Comment: Interpretive Data Percent cell count reference ranges are not reported, since discordance with absolute values may lead to misinterpretation of CBC data. Current Interpretive Data was last revised on 2017. Testing performed by: [address] [address] Lymphocyte pct 95.4 % [facility] Comment: Interpretive Data Percent cell count reference ranges are not reported, since discordance with absolute values may lead to misinterpretation of CBC data. Current Interpretive Data was last revised on 2017. Testing performed by: [address] [address] Monocyte pct 1.5 % [facility] Comment: Interpretive Data Percent cell count reference ranges are not reported, since discordance with absolute values may lead to misinterpretation of CBC data. Current Interpretive Data was last revised on 2017. Testing performed by: [address] [address] Eosinophil pct 0.0 % [facility] Comment: Interpretive Data Percent cell count reference ranges are not reported, since discordance with absolute values may lead to misinterpretation of CBC data. Current Interpretive Data was last revised on 2017. Testing performed by: [address] [address] Basophil pct 0.0 % [facility] Comment: Interpretive Data Percent cell count reference ranges are not reported, since discordance with absolute values may lead to misinterpretation of CBC data. Current Interpretive Data was last revised on 2017. Testing performed by: [address] [address] Blood 09/28/2024 10:3 9 PM CDT 09/28/2024 10:49 PM CDT Laurel Desir MD LAB BLOOD ORDERABLES Final Res ult SABRA [address] [facility] Department [place] [address] * (ABNORMAL) CBC with auto differential (09/28/2024 10:39 PM CDT) WBC 0.65(C) 3.80 - 9.90 K/cumm Comment: This result has been called to [id number] by [id number] on 09/28/2024 23:03:50, and has been read back. Testing performed by: [address] [address] Hgb 6.5(L) 11.9 - 15.5 g/dL SABRA Comment:Testing performed by : [address] [address] Hct 19.1(L) 35.6 - 45.5 % SABRA Comment:Testing performed by : [address] [address] Plt 68(L) 150 - 400 K/cumm SABRA Comment:Testing performed by : [address] [address] MPV 10.3 9.1 - 12.3 fL SABRA Comment:Testing performed by : [address] [address] RBC 2.06(L) 3.90 - 5.20 M/cumm SABRA Comment:Testing performed by : [address] [address] MCV 92.7 81.3 - 96.4 fL SABRA Comment:Testing performed by : [address] [address] MCH 31.6 27.1 - 33.3 pg SABRA Comment:Testing performed by : [address] [address] MCHC 34.0 32.3 - 35.7 g/dL SABRA Comment:Testing performed by : [address] [address] RDW CV 15.2(H) 11.1 - 14.9 % SABRA Comment:Testing performed by : [address] [address] RDW SD 51.1(H) 35.7 - 48.1 fL SABRA Comment:Testing performed by : [address] [address] NRBC abs 0.00 0.00 - 0.01 K/cumm SABRA Comment:Testing performed by : [address] [address] Morphologic Screen Results confirmed by manual morphology review. SABRA Comment:Testing performed by : [address] [address] Blood 09/28/2024 10:3 9 PM CDT 09/28/2024 10:49 PM CDT Laurel Desir MD LAB BLOOD ORDERABLES Final Res ult Performing Organization Address City/State/[facility] Co de Phone Number SABRA [facility] Department [place] [address] * Transfuse RBC (09/23/2024 2:21 PM CDT) Blood Chalino Chapa MD BLOOD TRANSFUSION ORDERAB LES Final Result * Transfuse RBC (09/23/2024 12:13 PM CDT) Blood Chalino Chapa MD BLOOD TRANSFUSION ORDERAB LES Final Result * Prepare RBC (09/23/2024 9:50 AM CDT) Unit Number [id number] Product code [id number] [facility] ([place]) Blood Expiration Date [id number] [facility] ([place]) Product Blood Type (for scanning) 5100 [facility] ([place]) Product Blood Type OPOS [facility] ([place]) Dispense Status DISPENSED [facility] ([place]) Chalino Chapa MD BLOOD BANK PRODUCT ORDERA BLES Final Result SABRA [facility] ([place]) [address] [place] [address] [place] [address] * Prepare RBC (09/23/2024 9:49 AM CDT) Unit Number [id number] Product code [id number] SABRA [facility] ([place]) Blood Expiration Date [id number] [facility] ([place]) Product Blood Type (for scanning) 5100 [facility] ([place]) Product Blood Type OPOS [facility] ([place]) Dispense Status DISPENSED SABRA [facility] ([place]) us Chalino Chapa MD BLOOD BANK PRODUCT ORDERA BLES Final Result Performing Organization Address City/[facility]/ZIP Co de Phone Number SABRA [facility] ([place]) [address] [place] [address] [place] [address] * Prepare RBC: 2 Units (09/23/2024 9:30 AM CDT) Units requested 2 Comment:Testing performed by : [place], [address] Units requested Ready EMMY ROGERS ([place]) Comment:Testing performed by : [place], [address] Blood 09/23/2024 9:30 AM CDT 09/23/2024 9:36 AM CDT Narrative SABRA [facility] ([place]) - 09/23/2024 9:39 AM CDT Are special requirements needed? (All products are leukoreduced and CMV- safe)->No us Chalino Chapa MD BLOOD BANK PRODUCT ORDERA BLES Final Result SABRA [facility] ([place]) [address] [place] [address] * (ABNORMAL) Immature platelet fraction (09/23/2024 8:10 AM CDT) IPF 11.9(H) 1.6 - 10.1 % Comment:Testing performed by : [place], [address] Blood 09/23/2024 8:10 AM CDT 09/23/2024 8:40 AM CDT us Chalino Chapa MD LAB BLOOD ORDERABLES Aylin tano Result [facility] ([place]) 1 [facility] Department [place] [address] * (ABNORMAL) CBC with auto differential (09/23/2024 8:10 AM CDT) [facility] WBC 0.70(C) 3.80 - 9.90 K/cumm Comment: This result has been called to Lourdes Hudson RN IFS by [id number] on 09/23/2024 08:51:42, and has been read back. Testing performed by: [place], [address] Hgb 6.7(L) 11.9 - 15.5 g/dL [facility] ([place]) Comment:Testing performed by : [place], [address] Hct 20.2(L) 35.6 - 45.5 % [facility] ([place]) Comment:Testing performed by : [place], [address] Plt 21(C) 150 - 400 K/cumm [facility] ([place]) Comment: This result has been called to Lourdes Hudson RN IFS by [id number] on 09/23/2024 08:51:42, and has been read back. Testing performed by: [place], [address] MPV Not Measured 9.1 - 12.3 fL [facility] ([place]) Comment:Testing performed by : [place], [address] RBC 2.02(L) 3.90 - 5.20 M/cumm [facility] ([place]) Comment:Testing performed by : [facility], [place], [address] MCV 100.0(H) 81.3 - 96.4 fL [facility] ([place]) Comment:Testing performed by : [facility], [place], [address] MCH 33.2 27.1 - 33.3 pg [facility] ([place]) Comment:Testing performed by : [facility], [place], [address] MCHC 33.2 32.3 - 35.7 g/dL [facility] ([place]) Comment:Testing performed by : [facility], [place], [address] RDW CV 16.6(H) 11.1 - 14.9 % [facility] ([place]) Comment:Testing performed by : [facility], [place], [address] RDW SD 60.6(H) 35.7 - 48.1 fL [facility] ([place]) Comment:Testing performed by : [facility], [place], [address] NRBC abs 0.00 0.00 - 0.01 K/cumm [facility] ([place]) Comment:Testing performed by : [place], [address] Blood 09/23/2024 8:10 AM CDT 09/23/2024 8:40 AM CDT us Chalino Chapa MD LAB BLOOD ORDERABLES Aylin l Result SABRA [facility] ([place]) 1 [facility] Department [place] [address] * ABO/Rh (09/23/2024 8:10 AM CDT) ABO/Rh O Positive Comment:Testing performed by : [facility], [place], [address] Blood 09/23/2024 8:10 AM CDT 09/23/2024 8:56 AM CDT Narrative [facility] ([place]) - 09/23/2024 9:36 AM CDT Has the patient had Daratumumab or Isatuximab in the past 6 months?->Unknown Witnessed by Yadi Gtz us Chalino Chapa MD LAB BLOOD BANK TEST ORDER LAITH Final Result SABRA [facility] ([place]) 1 [facility] Department [place] [address] * (ABNORMAL) Manual Differential (09/23/2024 8:10 AM CDT) Differential Manual Comment:Testing performed by : [place], [address] Cells Counted 100 [facility] ([place]) Comment:Testing performed by : [place], [address] Neutrophil abs 0.09(C) 1.50 - 6.50 K/cumm [facility] ([place]) Comment: This result has been called to Yadi Gtz RN IFS by [id number] on 09/23/2024 09:25:52, and has been read back. Testing performed by: [facility], [place], [address] Lymphocyte abs 0.60(L) 0.80 - 3.30 K/cumm [facility] ([place]) Comment:Testing performed by : [place], [address] Eosinophil abs 0.01 0.00 - 0.50 K/cumm [facility] ([place]) Comment:Testing performed by : [place], [address] Neutrophil pct 12.0 % [facility] ([place]) Comment: Interpretive Data Percent cell count reference ranges are not reported, since discordance with absolute values may lead to misinterpretation of CBC data. Current Interpretive Data was last revised on 2017. Testing performed by: [place], [address] Lymphocyte pct 86.0 % [facility] ([place]) Comment: Interpretive Data Percent cell count reference ranges are not reported, since discordance with absolute values may lead to misinterpretation of CBC data. Current Interpretive Data was last revised on 2017. Testing performed by: [facility], [place], [address] Eosinophil pct 1.0 % EMELINA R SUE ([place]) Comment: Interpretive Data Percent cell count reference ranges are not reported, since discordance with absolute values may lead to misinterpretation of CBC data. Current Interpretive Data was last revised on 2017. Testing performed by: [facility], [facility], [place], [address] Band Neutrophil pct 1.0 0.0 - 5.0 % SABRA [facility] ([place]) Comment:Testing performed by : [facility], [facility], [place], [address] RBC morphology Consistent with RBC Indicies SABRA ROG[facility] ([place]) Comment:Testing performed by : [facility], [facility], [place], [address] Platelet estimate #CAC; #D CE JENNA ROGERS ([place]) Comment:Testing performed by : [facility], [facility], [place], [address] Blood 09/23/2024 8:10 AM CDT 09/23/2024 8:40 AM CDT us Chalino Chapa MD LAB BLOOD ORDERABLES Aylin l Result SABRA [facility] ([place]) [address] [place] [address] Department [place] [address] * Crossmatch (09/23/2024 8:10 AM CDT) Crossmatch Compatible BANNERNER A ([place]) Unit number for crossmatch [id number] [facility] ([place]) Crossmatch Compatible CERNER A ([place]) Unit number for crossmatch [id number] [facility] Blood 09/23/2024 8:10 AM CDT 09/23/2024 8:56 AM CDT us Chalino Chapa MD LAB BLOOD BANK TEST ORDER LAITH Final Result SABRA [facility] ([place]) [address] [place] [address] Department [place] [address] * Antibody screen (09/23/2024 8:10 AM CDT) Rivera, indirect, Gel Interpretation Negative ABSC Comment:Testing performed by : [facility], [facility], [place], [address] Blood 09/23/2024 8:10 AM CDT 09/23/2024 8:56 AM CDT Narrative [facility] ([place]) - 09/23/2024 9:36 AM CDT Has the patient had Daratumumab or Isatuximab in the past 6 months?->Unknown us Chalino Chapa MD LAB BLOOD BANK TEST ORDER LAITH Final Result SABRA [facility] ([place]) 1 [facility] Department [place] [address] * Transfuse RBC (09/16/2024 2:17 PM CDT) Blood us Chalino Chapa MD BLOOD TRANSFUSION ORDERAB LES Final Result * Transfuse RBC (09/16/2024 12:33 PM CDT) Blood us Chalino Chapa MD BLOOD TRANSFUSION ORDERAB LES Final Result * Prepare RBC (09/16/2024 10:33 AM CDT) Unit Number [id number] Product code [id number] [facility] ([place]) Blood Expiration Date [id number] [facility] ([place]) Product Blood Type (for scanning) 5100 [facility] ([place]) Product Blood Type OPOS [facility] ([place]) Dispense Status DISPENSED [facility] ([place]) us Chalino Chapa MD BLOOD BANK PRODUCT ORDERA BLES Final Result SABRA [facility] ([place]) 1 [facility] Department [place] [address] * Prepare RBC (09/16/2024 10:32 AM CDT) Unit Number [id number] Product code [id number] [facility] ([place]) Blood Expiration Date [facility] ([place]) Product Blood Type (for scanning) 5100 [facility] ([place]) Product Blood Type OPOS [facility] ([place]) Dispense Status DISPENSED [facility] ([place]) us Chalino Chapa MD BLOOD BANK PRODUCT ORDERA BLES Final Result SABRA [facility] ([place]) 1 [facility] Department [place] [address] * Prepare RBC: 2 Units (09/16/2024 10:25 AM CDT) Units requested 2 Comment:Testing performed by : [place], [address] Units requested Ready [facility] S[facility] ([place]) Comment:Testing performed by : [place], [address] Blood 09/16/2024 10:2 5 AM CDT 09/16/2024 10:25 AM CDT Narrative SABRA [facility] ([place]) - 09/16/2024 10:26 AM CDT Are special requirements needed? (All products are leukoreduced and CMV- safe)->No us Chalino Chapa MD BLOOD BANK PRODUCT ORDERA BLES Final Result SABRA [facility] ([place]) 1 [facility] Department [place] [address] * Crossmatch (09/16/2024 10:12 AM CDT) Crossmatch Compatible CERNER A ([place]) Unit number for crossmatch [id number] [facility] ([place]) Crossmatch Compatible [facility]ERNER A ([place]) Unit number for crossmatch [id number] SABRA [facility] ([place]) Blood 09/16/2024 10:1 2 AM CDT 09/16/2024 10:12 AM CDT us Chalino Chapa MD LAB BLOOD BANK TEST ORDER LAITH Final Result Performing Organization Address City/[facility]/ZIP Co de Phone Number SABRA ROG[facility] ([place]) 1 [facility] Department [place] [address] * eGFR (09/16/2024 9:05 AM CDT) eGFR [...] was last reviewed 2021. Testing performed by: [facility], [facility], [place], [address] Blood 09/16/2024 9:05 AM CDT 09/16/2024 9:20 AM CDT us Zoraida Villegas NP LAB BLOOD ORDERABLES Final Result SABRA [facility] ([place]) 1 [facility] Department [place] [address] * (ABNORMAL) CBC with auto differential (09/16/2024 9:05 AM CDT) WBC 1.83(L) 3.80 - 9.90 K/cumm Comment:Testing performed by : [place], [place], Hgb 6.3(C) 11.9 - 15.5 g/dL [facility] ([place]) Comment: This result has been called to Ynes Ojeda RN IFS by [id number] on 09/16/2024 10:07:36, and has been read back. Testing performed by: [place], [place], Hct 19.1(L) 35.6 - 45.5 % [facility] ([place]) Comment:Testing performed by : [place], [place], Plt 144(L) 150 - 400 K/cumm [facility] ([place]) Comment:Testing performed by : [place], MPV 11.7 9.1 - 12.3 fL [facility] ([place]) Comment:Testing performed by : [place], RBC 1.72(L) 3.90 - 5.20 M/cumm [facility] ([place]) Comment:Testing performed by : [place], MCV 111.0(H) 81.3 - 96.4 fL [facility] ([place]) Comment:Testing performed by : [place], MCH 36.6(H) 27.1 - 33.3 pg [facility] ([place]) Comment:Testing performed by : [place], MCHC 33.0 32.3 - 35.7 g/dL [facility] ([place]) Comment:Testing performed by : [place], RDW CV 16.4(H) 11.1 - 14.9 % [facility] ([place]) Comment:Testing performed by : [place], RDW SD 65.4(H) 35.7 - 48.1 fL SABRA [facility] ([place]) Comment:Testing performed by : [facility], [facility], [place], [address] NRBC abs 0.00 0.00 - 0.01 K/cumm SABRA [facility] ([place]) Comment:Testing performed by : [facility], [facility], [place], [address] Blood 09/16/2024 9:05 AM CDT 09/16/2024 9:27 AM CDT us Chalino Chapa MD LAB BLOOD ORDERABLES Aylin l Result AM[facility]A [facility] ([place]) [address] [place] [address] Department [place] [address] * ABO/Rh (09/16/2024 9:05 AM CDT) ABO/Rh O Positive Comment:Testing performed by : [facility], [facility], [place], [address] Blood 09/16/2024 9:05 AM CDT 09/16/2024 9:19 AM CDT Narrative SABRA [facility] ([place]) - 09/16/2024 10:10 AM CDT Has the patient had Daratumumab or Isatuximab in the past 6 months?->Unknown us Milla Armenta NP LAB BLOOD BANK TEST ORDERA BLES Final Result Performing Organization Address City/[facility]/ZIP Co de Phone Number [facility] ([place]) [address] [place] [address] Department [place] [address] * (ABNORMAL) Manual Differential (09/16/2024 9:05 AM CDT) Differential Manual Comment:Testing performed by : [facility], [place], [address] Cells Counted 100 SABRA ROGERS ([place]) Comment:Testing performed by : [facility], [facility], [place], [address] Neutrophil abs 1.08(L) 1.50 - 6.50 K/cumm [facility] ([place]) Comment:Testing performed by : [facility], [facility], [place], [address] Lymphocyte abs 0.64(L) 0.80 - 3.30 K/cumm [facility] ([place]) Comment:Testing performed by : [facility], [facility], [place], [address] Monocyte abs 0.04(L) 0.20 - 0.80 K/cumm [facility] ([place]) Comment:Testing performed by : [facility], [facility], [place], [address] Eosinophil abs 0.07 0.00 - 0.50 K/cumm [facility] ([place]) Comment:Testing performed by : [facility], [place], [address] Neutrophil pct 57.0 % [facility] ([place]) Comment: Interpretive Data Percent cell count reference ranges are not reported, since discordance with absolute values may lead to misinterpretation of CBC data. Current Interpretive Data was last revised on 2017. Testing performed by: [facility], [facility], [place], [address] Lymphocyte pct 35.0 % [facility] ([place]) Comment: Interpretive Data Percent cell count reference ranges are not reported, since discordance with absolute values may lead to misinterpretation of CBC data. Current Interpretive Data was last revised on 2017. Testing performed by: [facility], [place], [address] Monocyte pct 2.0 % [facility] ([place]) Comment: Interpretive Data Percent cell count reference ranges are not reported, since discordance with absolute values may lead to misinterpretation of CBC data. Current Interpretive Data was last revised on 2017. Testing performed by: [facility], [facility], [place], [address] Eosinophil pct 4.0 % [facility] ([place]) Comment: Interpretive Data Percent cell count reference ranges are not reported, since discordance with absolute values may lead to misinterpretation of CBC data. Current Interpretive Data was last revised on 2017. Testing performed by: [facility], [facility], [place], [address] Band Neutrophil pct 2.0 0.0 - 5.0 % [facility] ([place]) Comment:Testing performed by : [facility], [facility], [place], [address] RBC morphology Consistent with RBC Indicies SABRA ROGERS ([place]) Comment:Testing performed by : [facility], [facility], [place], [address] Anisocytosis Slight(A) S[facility]RA [facility] ([place]) Comment:Testing performed by : [facility], [facility], [place], [address] Macrocytes 3-7/HPF(A) SABRA Silva ([place]) Comment:Testing performed by : [facility], [facility], [place], [address] Elliptocytes 3-7/HPF(A) [facility]RA [facility] ([place]) Comment:Testing performed by : [facility], [facility], [place], [address] Platelet estimate Automated Count Confirmed [facility]RA [facility] ([place]) Comment:Testing performed by : [facility], [facility], [place], [address] Blood 09/16/2024 9:05 AM CDT 09/16/2024 9:27 AM CDT us Chalino Chapa MD LAB BLOOD ORDERABLES Aylin l Result SABRA [facility] ([place]) 1 [facility] Department [place] [address] * Antibody screen (09/16/2024 9:05 AM CDT) Rivera, indirect, Gel Interpretation Negative ABSC Comment:Testing performed by : [facility], [facility], [place], [address] Blood 09/16/2024 9:05 AM CDT 09/16/2024 9:19 AM CDT Narrative [facility]RA [facility] ([place]) - 09/16/2024 10:10 AM CDT Has the patient had Daratumumab or Isatuximab in the past 6 months?->Unknown us Milla Armenta NP LAB BLOOD BANK TEST ORDERA BLES Final Result [facility]RA [facility] ([place] Department [place] [address] * (ABNORMAL) Comprehensive metabolic panel (09/16/2024 9:05 AM CDT) Sodium 137 135 - 145 mmol/L Comment:Testing performed by : [facility], [facility], [place], [address] Potassium, pl 4.5 3.3 - 4.9 mmol/L [facility] ([place]) Comment:Testing performed by : [facility], [place], [address] Chloride 101 97 - 110 mmol/L [facility] ([place]) Comment:Testing performed by : [facility], [place], [address] CO2 26 22 - 32 mmol/L [facility] ([place]) Comment:Testing performed by : [facility], [place], [address] Anion gap 10 2 - 15 mmol/L [facility] ([place]) Comment:Testing performed by : [facility], [place], [address] BUN 22 6 - 25 mg/dL [facility] ([place]) Comment:Testing performed by : [facility], [place], [address] Creatinine 0.54(L) 0.60 - 1.10 mg/dL [facility] ([place]) Comment:Testing performed by : [facility], [place], [address] Glucose 143 70 - 199 mg/dL [facility] ([place]) Comment: Interpretive Data Fasting glucose >/= 126 [...] was last revised 2022. Testing performed by: [facility], [place], [address] Calcium 8.5 8.5 - 10.3 mg/dL [facility] ([place]) Comment:Testing performed by : [facility], [facility], [place], [address] Bilirubin, total 0.8 0.1 - 1.2 mg/dL [facility] ([place]) Comment:Testing performed by : [facility], [facility], [place], [address] Protein, pl 6.3(L) 6.5 - 8.5 g/dL [facility] ([place]) Comment:Testing performed by : [facility], [place], [address] Albumin 4.2 3.5 - 5.0 g/dL [facility] ([place]) Comment:Testing performed by : [facility], [place], [address] Alk phos 66 40 - 130 Units/L [facility] ([place]) Comment:Testing performed by : [facility], [place], [address] ALT 59(H) 7 - 45 Units/L [facility] ([place]) Comment:Testing performed by : [facility], [place], [address] AST 31 10 - 45 Units/L [facility] ([place]) Comment:Testing performed by : [facility], [facility], [place], [address] Blood 09/16/2024 9:05 AM CDT 09/16/2024 9:20 AM CDT Zoraida Villegas [employer] LAB BLOOD ORDERABLES Final Result [facility] ([place]) [address] [place] [address] Department [place] [address] * eGFR (09/09/2024 9:00 AM CDT) eGFR [...] was last reviewed 2021. Testing performed by: [place], [address] Blood 09/09/2024 9:00 AM CDT 09/09/2024 9:11 AM CDT us Chalino Chapa MD LAB BLOOD ORDERABLES Aylin freedman Result [facility] ([place]) 1 [facility] Department [place] [address] * (ABNORMAL) Differential, auto (09/09/2024 9:00 AM CDT) Neutrophil abs 1.38(L) 1.50 - 6.50 K/cumm Comment:Testing performed by : [place], [address] Imm gran abs 0.01 0.00 - 0.10 K/cumm [facility] ([place]) Comment:Testing performed by : [place], [address] Lymphocyte abs 0.70(L) 0.80 - 3.30 K/cumm [facility] ([place]) Comment:Testing performed by : [place], [address] Monocyte abs 0.21 0.20 - 0.80 K/cumm [facility] ([place]) Comment:Testing performed by : [place], [address] Eosinophil abs 0.04 0.00 - 0.50 K/cumm [facility] ([place]) Comment:Testing performed by : [place], [address] Basophil abs 0.02 0.00 - 0.10 K/cumm [facility] ([place]) Comment:Testing performed by : [place], [address] Neutrophil pct 58.5 % [facility] ([place]) Comment: Interpretive Data Percent cell count reference ranges are not reported, since discordance with absolute values may lead to misinterpretation of CBC data. Current Interpretive Data was last revised on 2017. Testing performed by: [place], [address] Imm gran pct 0.4 % [facility] ([place]) Comment: Interpretive Data Percent cell count reference ranges are not reported, since discordance with absolute values may lead to misinterpretation of CBC data. Current Interpretive Data was last revised on 2017. Testing performed by: [place], [address] Lymphocyte pct 29.7 % [facility] ([place]) Comment: Interpretive Data Percent cell count reference ranges are not reported, since discordance with absolute values may lead to misinterpretation of CBC data. Current Interpretive Data was last revised on 2017. Testing performed by: [place], [address] Monocyte pct 8.9 % [facility] ([place]) Comment: Interpretive Data Percent cell count reference ranges are not reported, since discordance with absolute values may lead to misinterpretation of CBC data. Current Interpretive Data was last revised on 2017. Testing performed by: [place], [address] Eosinophil pct 1.7 % [facility] ([place]) Comment: Interpretive Data Percent cell count reference ranges are not reported, since discordance with absolute values may lead to misinterpretation of CBC data. Current Interpretive Data was last revised on 2017. Testing performed by: [place], [address] Basophil pct 0.8 % [facility] ([place]) Comment: Interpretive Data Percent cell count reference ranges are not reported, since discordance with absolute values may lead to misinterpretation of CBC data. Current Interpretive Data was last revised on 2017. Testing performed by: [place], [address] Blood 09/09/2024 9:00 AM CDT 09/09/2024 9:21 AM CDT us Chalino Chapa MD LAB BLOOD ORDERABLES Aylin tano Result [facility] ([place]) 1 [facility] Department [place] [address] * (ABNORMAL) CBC with auto differential (09/09/2024 9:00 AM CDT) WBC 2.36(L) 3.80 - 9.90 K/cumm Comment:Testing performed by : [place], [address] Hgb 8.1(L) 11.9 - 15.5 g/dL [facility] ([place]) Comment:Testing performed by : [place], [address] Hct 24.8(L) 35.6 - 45.5 % [facility] ([place]) Comment:Testing performed by : [place], [address] Plt 180 150 - 400 K/cumm [facility] ([place]) Comment:Testing performed by : [place], [address] MPV 11.4 9.1 - 12.3 fL [facility] ([place]) Comment:Testing performed by : [place], [address] RBC 2.25(L) 3.90 - 5.20 M/cumm [facility] ([place]) Comment:Testing performed by : [place], [address] MCV 110.2(H) 81.3 - 96.4 fL [facility] ([place]) Comment:Testing performed by : [place], [address] MCH 36.0(H) 27.1 - 33.3 pg [facility] ([place]) Comment:Testing performed by : [place], [address] MCHC 32.7 32.3 - 35.7 g/dL [facility] ([place]) Comment:Testing performed by : [facility], [place], [address] RDW CV 17.0(H) 11.1 - 14.9 % [facility] ([place]) Comment:Testing performed by : [facility], [place], [address] RDW SD 67.0(H) 35.7 - 48.1 fL [facility] ([place]) Comment:Testing performed by : [facility], [place], [address] NRBC abs 0.00 0.00 - 0.01 K/cumm [facility] ([place]) Comment:Testing performed by : [facility], [place], [address] Blood 09/09/2024 9:00 AM CDT 09/09/2024 9:21 AM CDT us Chalino Chapa MD LAB BLOOD ORDERABLES Aylin freedman Result [facility] ([place]) 1 [facility] Department [place] [address] * (ABNORMAL) Comprehensive metabolic panel (09/09/2024 9:00 AM CDT) Sodium 141 135 - 145 mmol/L Comment:Testing performed by : [facility], [place], [address] Potassium, pl 4.0 3.3 - 4.9 mmol/L [facility] ([place]) Comment:Testing performed by : [facility], [place], [address] Chloride 103 97 - 110 mmol/L [facility] ([place]) Comment:Testing performed by : [facility], [place], [address] CO2 27 22 - 32 mmol/L [facility] ([place]) Comment:Testing performed by : [facility], [place], [address] Anion gap 11 2 - 15 mmol/L [facility] ([place]) Comment:Testing performed by : [facility], [place], [address] BUN 13 6 - 25 mg/dL [facility] ([place]) Comment:Testing performed by : [facility], [place], [address] Creatinine 0.56(L) 0.60 - 1.10 mg/dL [facility] ([place]) Comment:Testing performed by : [facility], [place], [address] Glucose 185 70 - 199 mg/dL [facility] ([place]) [...] was last revised 2022. Testing performed by: [place], [address] Calcium 8.3(L) 8.5 - 10.3 mg/dL [facility] ([place]) Comment:Testing performed by : [facility], [place], [address] Bilirubin, total 0.9 0.1 - 1.2 mg/dL [facility] ([place]) Comment:Testing performed by : [place], [address] Protein, pl 6.4(L) 6.5 - 8.5 g/dL [facility] ([place]) Comment:Testing performed by : [facility], [place], [address] Albumin 4.1 3.5 - 5.0 g/dL [facility] ([place]) Comment:Testing performed by : [facility], [place], [address] Alk phos 67 40 - 130 Units/L [facility] ([place]) Comment:Testing performed by : [place], [address] ALT 44 7 - 45 Units/L [facility] ([place]) Comment:Testing performed by : [facility], [place], [address] AST 19 10 - 45 Units/L [facility] ([place]) Comment:Testing performed by : [place], [address] Blood 09/09/2024 9:00 AM CDT 09/09/2024 9:11 AM CDT us Chalino Chapa MD LAB BLOOD ORDERABLES Aylin l Result Performing Organization Address [facility] Co de Phone Number [facility] ([place]) [address] [place] [address] Department [place] [address] * Prepare RBC: 1 Units (09/02/2024 6:07 PM CDT) Units requested 1 Comment:Testing performed by : [facility], [place], [address] Units requested Ready [facility] ([place]) Comment:Testing performed by : [place], [address] Blood 09/02/2024 6:07 PM CDT 09/02/2024 6:07 PM CDT Narrative [facility] ([place]) - 09/02/2024 6:08 PM CDT 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 symptomatic Are special requirements needed? (All products are leukoreduced and CMV- safe)->No us Chalino Chapa MD BLOOD BANK PRODUCT ORDERA BLES Final Result Performing Organization Address City/[facility]/ZIP Co de Phone Number [facility] ([place]) [address] [place] [address] Department [place] [address] * Transfuse RBC (09/02/2024 1:17 PM CDT) Blood us Chalino Chapa MD BLOOD TRANSFUSION ORDERAB LES Final Result * Prepare RBC (09/02/2024 11:07 AM CDT) Unit Number [id number] Product code [id number] [facility] ([place]) Blood Expiration Date [id number] [facility] ([place]) Product Blood Type (for scanning) 5100 [facility] ([place]) Product Blood Type OPOS [facility] ([place]) Dispense Status DISPENSED [facility] ([place]) us Chalino Chapa MD BLOOD BANK PRODUCT ORDERA BLES Final Result Performing Organization Address City/[facility]/ZIP Co de Phone Number [facility] ([place]) 1 [facility] Department [place] [address] * eGFR (09/02/2024 9:45 AM CDT) eGFR [...] was last reviewed 2021. Testing performed by: [facility], [facility], [place], [address] Blood 09/02/2024 9:45 AM CDT 09/02/2024 10:06 AM CDT us Gabriel Bruce NP LAB BLOOD ORDERABLES F inal Result [facility] ([place]) 1 [facility] Department [place] [address] * (ABNORMAL) Differential, auto (09/02/2024 9:45 AM CDT) Neutrophil abs 1.05(L) 1.50 - 6.50 K/cumm Comment:Testing performed by : [facility], [place], [address] Imm gran abs 0.02 0.00 - 0.10 K/cumm [facility] ([place]) Comment:Testing performed by : [facility], [place], [address] Lymphocyte abs 0.51(L) 0.80 - 3.30 K/cumm [facility] ([place]) Comment:Testing performed by : [facility], [facility], [place], [address] Monocyte abs 0.21 0.20 - 0.80 K/cumm [facility] ([place]) Comment:Testing performed by : [facility], [place], [address] Eosinophil abs 0.04 0.00 - 0.50 K/cumm [facility] ([place]) Comment:Testing performed by : [place], [address] Basophil abs 0.01 0.00 - 0.10 K/cumm [facility] ([place]) Comment:Testing performed by : [place], [address] Neutrophil pct 57.1 % [facility] ([place]) Comment: Interpretive Data Percent cell count reference ranges are not reported, since discordance with absolute values may lead to misinterpretation of CBC data. Current Interpretive Data was last revised on 2017. Testing performed by: [place], [address] Imm gran pct 1.1 % [facility] ([place]) Comment: Interpretive Data Percent cell count reference ranges are not reported, since discordance with absolute values may lead to misinterpretation of CBC data. Current Interpretive Data was last revised on 2017. Testing performed by: [place], [address] Lymphocyte pct 27.7 % [facility] ([place]) Comment: Interpretive Data Percent cell count reference ranges are not reported, since discordance with absolute values may lead to misinterpretation of CBC data. Current Interpretive Data was last revised on 2017. Testing performed by: [place], [address] Monocyte pct 11.4 % [facility] ([place]) Comment: Interpretive Data Percent cell count reference ranges are not reported, since discordance with absolute values may lead to misinterpretation of CBC data. Current Interpretive Data was last revised on 2017. Testing performed by: [facility], [place], [address] Eosinophil pct 2.2 % [facility] ([place]) Comment: Interpretive Data Percent cell count reference ranges are not reported, since discordance with absolute values may lead to misinterpretation of CBC data. Current Interpretive Data was last revised on 2017. Testing performed by: [facility], [place], [address] Basophil pct 0.5 % [facility] ([place]) Comment: Interpretive Data Percent cell count reference ranges are not reported, since discordance with absolute values may lead to misinterpretation of CBC data. Current Interpretive Data was last revised on 2017. Testing performed by: [facility], [place], [address] Blood 09/02/2024 9:45 AM CDT 09/02/2024 11:02 AM CDT us Chalino Chpaa MD LAB BLOOD ORDERABLES Aylin freedman Result [facility] ([place]) 1 [facility] Department [place] [address] * (ABNORMAL) CBC with auto differential (09/02/2024 9:45 AM CDT) WBC 1.84(L) 3.80 - 9.90 K/cumm Comment:Testing performed by : [facility], [place], [address] Hgb 7.5(L) 11.9 - 15.5 g/dL [facility] ([place]) Comment:Testing performed by : [facility], [place], [address] Hct 23.0(L) 35.6 - 45.5 % [facility] ([place]) Comment:Testing performed by : [place], [place], Plt 165 150 - 400 K/cumm [facility] ([place]) Comment:Testing performed by : [place], MPV 12.1 9.1 - 12.3 fL [facility] ([place]) Comment:Testing performed by : [facility], [place], RBC 1.99(L) 3.90 - 5.20 M/cumm [facility] ([place]) Comment:Testing performed by : [place], MCV 115.6(H) 81.3 - 96.4 fL [facility] ([place]) Comment:Testing performed by : [place], MCH 37.7(H) 27.1 - 33.3 pg [facility] ([place]) Comment:Testing performed by : [place], MCHC 32.6 32.3 - 35.7 g/dL [facility] ([place]) Comment:Testing performed by : [place], RDW CV 15.1(H) 11.1 - 14.9 % [facility] ([place]) Comment:Testing performed by : [facility], [place], [place]DW SD 61.1(H) 35.7 - 48.1 fL [facility] ([place]) Comment:Testing performed by : [place], NRBC abs 0.00 0.00 - 0.01 K/cumm [facility] ([place]) Comment:Testing performed by : [facility], [place], [address] Blood 09/02/2024 9:45 AM CDT 09/02/2024 11:04 AM CDT us Chalino Chapa MD LAB BLOOD ORDERABLES Aylin freedman Result [facility] ([place]) 1 [facility] Department [place] [address] * ABO/Rh (09/02/2024 9:45 AM CDT) ABO/Rh O Positive Comment:Testing performed by : [place], [address] Blood 09/02/2024 9:45 AM CDT 09/02/2024 10:27 AM CDT N[facility]ative [facility] - 09/02/2024 10:59 AM CDT Has the patient had Daratumumab or Isatuximab in the past 6 months?->Unknown us Chalino Chapa MD LAB BLOOD BANK TEST ORDER LAITH Final Result [facility] ([place] [address] [place] [address] Department [place] [address] * Crossmatch (09/02/2024 9:45 AM CDT) Pathologist [facility] Crossmatch Compatible [facility] ([place]) Unit number for crossmatch [id number] [facility] Blood 09/02/2024 9:45 AM CDT 09/02/2024 10:27 AM CDT us Chalino Chapa MD LAB BLOOD BANK TEST ORDER LAITH Final Result [facility] ([place]) [address] [place] [address] Department [place] [address] * Antibody screen (09/02/2024 9:45 AM CDT) Rivera, indirect, Gel Interpretation Negative ABSC Comment:Testing performed by : [place], [address] Blood 09/02/2024 9:45 AM CDT 09/02/2024 10:27 AM CDT Narrative [facility] ([place]) - 09/02/2024 10:59 AM CDT Has the patient had Daratumumab or Isatuximab in the past 6 months?->Unknown us Chalino Chapa MD LAB BLOOD BANK TEST ORDER LAITH Final Result [facility] ([place]) 1 [facility] Department [place] [address] * (ABNORMAL) Comprehensive metabolic panel (09/02/2024 9:45 AM CDT) Sodium 138 135 - 145 mmol/L Comment:Testing performed by : [place], [address] Potassium, pl 4.3 3.3 - 4.9 mmol/L [facility] ([place]) Comment:Testing performed by : [facility], [place], [address] Chloride 99 97 - 110 mmol/L [facility] ([place]) Comment:Testing performed by : [facility], [place], [address] CO2 28 22 - 32 mmol/L [facility] ([place]) Comment:Testing performed by : [facility], [place], [address] Anion gap 11 2 - 15 mmol/L [facility] ([place]) Comment:Testing performed by : [facility], [place], [address] BUN 15 6 - 25 mg/dL [facility] ([place]) Comment:Testing performed by : [place], [address] Creatinine 0.65 0.60 - 1.10 mg/dL [facility] ([place]) Comment:Testing performed by : [facility], [place], [address] Glucose 165 70 - 199 mg/dL [facility] ([place]) Comment: Interpretive Data Fasting glucose >/= 126 [...] was last revised 2022. Testing performed by: [place], [address] Calcium 8.6 8.5 - 10.3 mg/dL [facility] ([place]) Comment:Testing performed by : [facility], [place], [address] Bilirubin, total 0.7 0.1 - 1.2 mg/dL [facility] ([place]) Comment:Testing performed by : [facility], [place], [address] Protein, pl 6.3(L) 6.5 - 8.5 g/dL [facility] ([place]) Comment:Testing performed by : [facility], [place], [address] Albumin 4.0 3.5 - 5.0 g/dL [facility] ([place]) Comment:Testing performed by : [facility], [place], [address] Alk phos 66 40 - 130 Units/L [facility] ([place]) Comment:Testing performed by : [facility], [place], [address] ALT 45 7 - 45 Units/L [facility] ([place]) Comment:Testing performed by : [place], [address] AST 27 10 - 45 Units/L [facility] ([place]) Comment:Testing performed by : [facility], [place], [address] Blood 09/02/2024 9:45 AM CDT 09/02/2024 10:06 AM CDT us Gabriel Bruce NP LAB BLOOD ORDERABLES F inal Result [facility] ([place]) [address] [place] [address] Department [place] [address] * eGFR (08/08/2024 10:10 AM CDT) eGFR [...] was last reviewed 2021. Testing performed by: [place], [address] Blood 08/08/2024 10:1 0 AM CDT 08/08/2024 10:42 AM CDT us Chalino Chapa MD LAB BLOOD ORDERABLES Aylin l Result [facility] ([place]) 1 [facility] Department [place] [address] * (ABNORMAL) Differential, auto (08/08/2024 10:10 AM CDT) Neutrophil abs 1.01(L) 1.50 - 6.50 K/cumm Comment:Testing performed by : [place], [address] Imm gran abs 0.02 0.00 - 0.10 K/cumm [facility] ([place]) Comment:Testing performed by : [place], [address] Lymphocyte abs 0.98 0.80 - 3.30 K/cumm [facility] ([place]) Comment:Testing performed by : [place], [address] Monocyte abs 0.26 0.20 - 0.80 K/cumm [facility] ([place]) Comment:Testing performed by : [place], [address] Eosinophil abs 0.06 0.00 - 0.50 K/cumm [facility] ([place]) Comment:Testing performed by : [facility], [facility], [place], [address] Basophil abs 0.02 0.00 - 0.10 K/cumm [facility] ([place]) Comment:Testing performed by : [place], [address] Neutrophil pct 42.8 % [facility] ([place]) Comment: Interpretive Data Percent cell count reference ranges are not reported, since discordance with absolute values may lead to misinterpretation of CBC data. Current Interpretive Data was last revised on 2017. Testing performed by: [place], [address] Imm gran pct 0.9 % [facility] ([place]) Comment: Interpretive Data Percent cell count reference ranges are not reported, since discordance with absolute values may lead to misinterpretation of CBC data. Current Interpretive Data was last revised on 2017. Testing performed by: [facility], [facility], [place], [address] Lymphocyte pct 41.7 % [facility] ([place]) Comment: Interpretive Data Percent cell count reference ranges are not reported, since discordance with absolute values may lead to misinterpretation of CBC data. Current Interpretive Data was last revised on 2017. Testing performed by: [facility], [place], [address] Monocyte pct 11.1 % [facility] ([place]) Comment: Interpretive Data Percent cell count reference ranges are not reported, since discordance with absolute values may lead to misinterpretation of CBC data. Current Interpretive Data was last revised on 2017. Testing performed by: [facility], [place], [address] Eosinophil pct 2.6 % [facility] ([place]) Comment: Interpretive Data Percent cell count reference ranges are not reported, since discordance with absolute values may lead to misinterpretation of CBC data. Current Interpretive Data was last revised on 2017. Testing performed by: [place], [address] Basophil pct 0.9 % [facility] ([place]) Comment: Interpretive Data Percent cell count reference ranges are not reported, since discordance with absolute values may lead to misinterpretation of CBC data. Current Interpretive Data was last revised on 2017. Testing performed by: [place], [address] Blood 08/08/2024 10:1 0 AM CDT 08/08/2024 10:53 AM CDT Chalino Chapa MD LAB BLOOD ORDERABLES Aylin freedman Result [facility] ([place]) [facility] Department [place] [address] * (ABNORMAL) CBC with auto differential (08/08/2024 10:10 AM CDT) WBC 2.35(L) 3.80 - 9.90 K/cumm Comment:Testing performed by : [place], [address] Hgb 9.7(L) 11.9 - 15.5 g/dL [facility] ([place]) Comment:Testing performed by : [place], [address] Hct 29.5(L) 35.6 - 45.5 % [facility] ([place]) Comment:Testing performed by : [place], [address] Plt 155 150 - 400 K/cumm [facility] ([place]) Comment:Testing performed by : [place], [address] MPV 10.9 9.1 - 12.3 fL [facility] ([place]) Comment:Testing performed by : [place], [address] RBC 2.54(L) 3.90 - 5.20 M/cumm [facility] ([place]) Comment:Testing performed by : [place], [address] MCV 116.1(H) 81.3 - 96.4 fL [facility] ([place]) Comment:Testing performed by : [place], [address] MCH 38.2(H) 27.1 - 33.3 pg [facility] ([place]) Comment:Testing performed by : [facility], [place], [address] MCHC 32.9 32.3 - 35.7 g/dL [facility] ([place]) Comment:Testing performed by : [facility], [place], [address] RDW CV 14.6 11.1 - 14.9 % [facility] ([place]) Comment:Testing performed by : [facility], [place], [address] RDW SD 62.4(H) 35.7 - 48.1 fL [facility] ([place]) Comment:Testing performed by : [facility], [place], NRBC abs 0.00 0.00 - 0.01 K/cumm [facility] ([place]) Comment:Testing performed by : [facility], [place], Blood 08/08/2024 10:1 0 AM CDT 08/08/2024 10:53 AM CDT us Chalino Chapa MD LAB BLOOD ORDERABLES Aylin l Result [facility] ([place]) [facility] Department [place] [address] * (ABNORMAL) Comprehensive metabolic panel (08/08/2024 10:10 AM CDT) Sodium 142 135 - 145 mmol/L Comment:Testing performed by : [facility], [place], [place], Potassium, pl 4.6 3.3 - 4.9 mmol/L [facility] ([place]) Comment:Testing performed by : [facility], [place], [address] Chloride 104 97 - 110 mmol/L [facility] ([place]) Comment:Testing performed by : [facility], [place], [address] CO2 30 22 - 32 mmol/L [facility] ([place]) Comment:Testing performed by : [facility], [place], [address] Anion gap 9 2 - 15 mmol/L [facility] ([place]) Comment:Testing performed by : [facility], [place], [address] BUN 17 6 - 25 mg/dL [facility] ([place]) Comment:Testing performed by : [facility], [place], [address] Creatinine 0.55(L) 0.60 - 1.10 mg/dL [facility] ([place]) Comment:Testing performed by : [facility], [place], [address] Glucose 94 70 - 199 mg/dL [facility] [facility] ([place]) Comment: Interpretive Data Fasting glucose >/= 126 [...] was last revised 2022. Testing performed by: [facility], [place], [address] Calcium 9.2 8.5 - 10.3 mg/dL [facility] ([place]) Comment:Testing performed by : [facility], [place], [address] Bilirubin, total 0.5 0.1 - 1.2 mg/dL [facility] ([place]) Comment:Testing performed by : [facility], [place], [address] Protein, pl 6.5 6.5 - 8.5 g/dL [facility] ([place]) Comment:Testing performed by : [facility], [place], [address] Albumin 4.3 3.5 - 5.0 g/dL [facility] ([place]) Comment:Testing performed by : [facility], [place], [address] Alk phos 82 40 - 130 Units/L [facility] ([place]) Comment:Testing performed by : [place], [address] ALT 52(H) 7 - 45 Units/L [facility] ([place]) Comment:Testing performed by : [facility], [facility], [place], [address] AST 24 10 - 45 Units/L [facility] ([place]) Comment:Testing performed by : [facility], [facility], [place], [address] Blood 08/08/2024 10:1 0 AM CDT 08/08/2024 10:42 AM CDT us Chalino Chapa MD LAB BLOOD ORDERABLES Aylin l Result [facility] ([place]) 1 [facility] Department [place] [address] from Last 3 Months Insurance MEDICARE MEDICARE [facility] MEDICARE SUPPLEMENT MEDICARE [facility] MEDICARE SUPPLEMENT Advance Directives For more information, please contact: [phone] Documents on File Type Date Recorded Patient Cinema Or Theatre Manager Expl anation ADVANCE DIRECTIVE 12/20/2023 8:01 AM Power of Groover And Striper Operator-Medical * Full Code (Latest Code Status on File) Date Activated Date Inactivated Comments 09/28/2024 7:50 PM 10/07/2024 7:51 PM * Full Code Date Activated Date Inactivated Comments 12/11/2023 12:19 PM 12/19/2023 6:45 PM Care Teams Registered Nurse Renal Relationship Specialty Start Date End Date Bryan Davey DO PCP - General Internal Medicine 11/14/23 Prateek King MD [address] [place] [address] Consulting Physician Urology 10/07/24 Sherman Alvarez DO [address] [place] [address] Medical Oncologist/Production Assembler Hematology and Oncology 10/07/24
--- OUTSIDE RECORDS SUMMARY | 2024-10-28 10:33 | XMS_ITS | Encounter Summary ---
Author Organization [facility] Address [facility] [place] [address] Care Team Providers Care Billing Auditor Name Role Phone Andie Ang MD Primary Care Provider + [phone] Mervat Kelley Primary Care Provider + Andie Ang MD Primary Care Provider + [phone] Mervat Kelley Primary Care Provider + Andie Ang MD Primary Care Provider + [phone] Mervat Kelley Primary Care Provider + Encounter Details Date Type Department Care Team (Late st Contact Info) Description 11/15/2018 Lab Requisition [facility] Care DermPath Lab [address] [facility] [place] [address] Sarath De Guzman MD [address] [place] [address] Social History Tobacco Use Types Packs/Day Years [...] AM CDT) Case Report Dermatopathology Report Case: [id number] Authorizing Provider: Sarath De Guzman MD Collected: 11/14/2018 12:00 AM Ordering Location: [facility] DermPath Lab Received: 11/15/2018 12:29 PM [...] specimen consists of a shave biopsy measuring [id number]. Jar 0. 12:59 PM CDT DERMATOPATHOLOGY LABORATORY [...] characteristic determined by the Dermatopathology Laboratory at [facility], directed by Dr. Frederick Schofield. These tests need not be, and therefore are not, approved by the [place] Food and Drug Administration. The tests are used for clinical purposes. Billing Codes Specimen Charges Stain Charges [address] 1 12:59 PM CDT DERMATOPATHOLOGY LABORATORY Embedded Images 12:59 PM CDT DERMATOPATHOLOGY LABORATORY Pathology/Cytolog y TISSUE SPECIMEN FROM SKIN / Unknown 11/14/2018 11/15/2018 12:29 PM CDT Sarath De Guzman MD LAB - PATHOLOGY/CYTOLOGY ORD ERABLES Final Result DERMATOPATHOLOGY LABORATORY [facility] - Department of Dermatology [address] [facility], 5th [place] [address], [facility] [phone] documented in this encounter Visit Diagnoses Not on filedocumented in this encounter Care Teams Billing Auditor Relationship Specialty Start Date End Date Andie Ang MD [address] [phone] PCP - General 08/18/17 09/29/21 Mervat Kelley APRN-PROSTHETIC DENTIST [address] [place] [phone] PCP - General Nurse Practitioner 09/30/21 09/30/21 Andie Ang MD [address] [phone] PCP - General 10/01/21 10/12/21 Mervat Kelley APRN-PROSTHETIC DENTIST [address] [address] PCP - General 10/13/21 10/31/21 Andie Ang MD [address] [phone] PCP - General 11/01/21 11/23/21 Mervat Kelley APRN-PROSTHETIC DENTIST [address] [address] PCP - General 11/24/21 documented as of this encounter
--- OUTSIDE RECORDS SUMMARY | 2024-10-28 10:33 | XMS_ITS | Encounter Summary ---
Author Organization [facility] Health Address [address] [facility] [place] [address] Care Team Providers Care Cold Rolling Machine Setter Name Role Phone Mervat Kelley FANCY NEEDLEWORKER-RACKET STRINGER Primary Care Provider + Encounter Details Date Type Department Care Team (Late st Contact Info) Description 10/06/2022 Lab Requisition [facility] - Pathology Lab [address] [place] [address] Jesus Louis MD [address] [address] Illness, unspecified Social History Tobacco [...] Report Bone Marrow Patholog y Report Case: [id number] Authorizing Provider: Jesus Louis MD Collected: 10/05/2022 09:15 AM Ordering Location: [facility] Pathology Lab Received: 10/06/2022 01:27 PM [...] normal. Platelet morphology: normal. 10/07/2022 1:40 PM [facility] PATH[facility] LAB Bone Marrow Aspirate The aspirate [...] Control is appropriately reactive. 10/07/2022 1:40 PM [facility] PATH[facility] Bone Marrow Core Biopsy and [...] an increased number of early erythroid progenitors. FP582a demonstrates additional, more mature erythroid lineage cells, confirming erythroid hyperplasia. Myeloperoxidase is positive in relatively fewer numbers of myeloid precursors. CD3 and CD20 show a normal number and distribution of T-cells and B-cells, respectively. Reticulin staining shows no significant marrow fibrosis (MF-0), and trichrome staining shows no collagen deposition. 10/07/2022 1:40 PM [facility] Flow Cytometry Summary Concurrent flow cytometry ([id number]) shows no evidence of non-Hodgkin lymphoma or high-grade myeloid neoplasm. 10/07/2022 1:40 PM [facility] PATH[facility] Clinical History 82 year old woman with macrocytic anemia. 10/07/2022 1:40 PM CDT [facility] PATHOLOGY LAB Materials Received Received are 22 slides and 3 blocks (A1, A2; B1) labeled [id number] along with a copy of the outside pathology report. The materials originate from [facility], [address] [place] [address] [place] [id number]. All original materials are returned to the referring institution, along with a copy of our final report. 10/07/2022 1:40 PM CDT U PATHOLOGY LAB Pathologist Location at [facility] 10/07/2022 1:40 PM CDT [facility] PATHOLOG[facility] LAB Disclaimer The performance characteristics of all immunohistochemical and indirect immunofluorescence stains (if any) cited in this report were determined by the Histopathology Laboratory of [facility]. Some of these tests were [...] attending (teaching) pathologist. 10/07/2022 1:40 PM CDT [facility] PATHOLOG[facility] LAB Embedded Images 10/07/2022 1:40 PM CDT [facility] PATHOLOG[facility] LAB Pathology/Cytology BONE MARROW SPECIMEN / Unknown 10/05/2022 9:15 AM CDT 10/06/2022 1:27 PM CDT Miscellaneous samples (specimen) BONE MARROW SPECIMEN / Unknown 10/05/2022 9:15 AM CDT 10/06/2022 1:27 PM CDT us Jesus Louis MD LAB - PATHOLOGY/CYTOLOGY ORDERAB LES Final Result [facility] PATHOLOGY LAB [address] [place], [place] [id number] [place] [address] documented in this encounter Visit Diagnoses Diagnosis Illness, unspecified documented in this encounter Care Teams Cold Rolling Machine Setter Relationship Specialty Start Date End Date Mervat Kelley APRN-DAVIS [address] [phone] PCP - General 11/24/21 documented as of this encounter
--- OUTSIDE RECORDS SUMMARY | 2024-10-28 10:33 | XMS_ITS | Clinical Summary ---
Author Organization [facility] Address [address] [facility] [address] Care Team Providers Care Commissioner Of Internal Revenue Name Role Phone Mervat Kelley GERA-DORMITORY SUPERVISOR Primary Care Provider + Source Comments [facility],non-owned Affiliates and Associated Physician Practices is amultiple site organization consisting of ambulatory clinics and hospital sitesin [place], [place], [place] and [place]. This disclosure is being madepursuant to the Care Everywhere program and may not contain all information available regarding this patient. Last updated 17.[facility] Allergies Active Allergy Reactions Criticality Noted Date [...] daily Active fish oil/omega-3 fatty acids (Promega;Cardi -[place] 3) 1000 MG capsule Take 2 (two) [...] 71.7 kg (158 lb) 04/06/2022 10:56 AM HYDROGEN TREATER Height 152.4 cm (5') 12/22/2021 12:39 PM [...] history exists DEPRESSION SCREENING 04/03/2024 INFLUENZA VACCINE (#1) 2024 , 01/15/2021, 01/13/2020, Additional history exists DTAP/TDAP/TD VACCINES [...] age to complete this topic Insurance [facility] Advance Directives * Full Code (Latest Code Status on File) Date Activated Date Inactivated Comments 09/29/2021 4:59 AM 09/30/2021 2:57 PM Care Teams Commissioner Of Internal Revenue Relationship Specialty Start Date End Date Mervat Kelley APRN-CNP [address] [phone] PCP - General 11/24/21
--- OUTSIDE RECORDS SUMMARY | 2024-10-28 10:33 | XMS_ITS | Encounter Summary ---
Author Organization [facility] Health Address [address] [place] [address] Care Team Providers Care Intermission Coordinator Name Role Phone Mervat Kelley SHOWROOM SALESPERSON-DIRECTOR CHILD Primary Care Provider + Encounter Details Date Type Department Care Team (Late st Contact Info) Description 10/05/2022 Lab Requisition [facility] - Pathology Lab [address] [place] [address] Jesus Louis MD [address] [address] Anemia, unspecified Social History Tobacco [...] AM CDT) Case Report Flow Cytometry Case: [id number] Authorizing Provider: Jesus Louis MD Collected: 10/05/2022 09:15 AM Ordering Location: [facility] Pathology Lab Received: 10/05/2022 02:15 PM Pathologist: Linda Hauser MD Specimen: Bone Marrow 10/05/2022 4:45 PM CDT [facility] PATHOLOGY LAB Final Diagnosis Bone marrow, flow cytometric immunophenotypic analysis: - No evidence of non-Hodgkin lymphoma or high-grade myeloid neoplasm. - See interpretation. 10/05/2022 4:45 PM CDT [facility] at 1644 CDT Flow [...] flow cytometry specimen is reviewed for quality and reliability engineer purposes. The bone marrow specimen shows [...] ID # [id number] 10/05/2022 4:45 PM CDT [facility] Number of markers 10 were performed. A-2 Flow CD10 A-3 Flow CD13 A-5 Flow CD20 A-1 Flow CD5 A-4 Flow CD19 A-6 Flow CD33 A-7 Flow CD34 A-8 Flow CD45 A-9 [place]+CD19+ A-10 Lambda+CD19+ 10/05/2022 4:45 PM CDT U PATHOLOGY LAB Pathologist Location at [facility] 10/05/2022 4:45 PM CDT U PATHOLOGY LAB Disclaimer Test performed at [facility], [address] [place], [place], [address]. *The established laboratory minimum viability is 70%. [...] PATHOLOGY LAB Embedded Images 4:45 PM CDT [facility] Pathology/Cytolo gy BONE MARROW SPECIMEN / Unknown 10/05/2022 9:15 AM CDT 10/05/2022 2:15 PM CDT Jesus Louis MD LAB - PATHOLOGY/CYTOLOGY ORDERAB LES Final Result Performing Organization Address City/State/[facility] Co de Phone Number [facility] [address] [place] [address]. [address] [phone] documented in this encounter Visit Diagnoses Diagnosis Anemia, unspecified documented in this encounter Care Teams Intermission Coordinator Relationship Specialty Start Date End Date Mervat Kelley APRN-CNP [address] [address] PCP - General 11/24/21 documented as of this encounter
[2024-10-28 10:50] LABS: Hematocrit 26.2 % (37.0-47.0); Hemoglobin 8.1 g/dL (12.0-15.0); Immature Granulocyte Percent A 0.5 % (0-0.5); Lymphocytes Absolute Auto 0.77 K/mm3 (0.9-3.2); Mean Corpuscular HGB Conc 30.9 g/dl (32-36); Mean Corpuscular Hemoglobin 31.9 pg (26-34); Mean Corpuscular Volume 103.1 fl (80-100); Nucleated Red Blood Cells Absolute Auto 0.000 K/mm3 (0.0-0.012); Nucleated Red Blood Cells Perc 0.0 % (0.0-0.2); Platelet Count Result 148 k/mm3 (150-375); Red Blood Count 2.54 M/mm3 (4.2-5.4); White Blood Count 2.1 K/mm3 (4.5-10.0)
[2024-10-28 11:06] LABS: Alanine Aminotransferase 85 U/L (6-35); Albumin Level 4.1 g/dL (3.5-5.1); Alkaline Phosphatase 48 U/L (38-126); Anion Gap 7 mmol/L (4-12); Aspartate Amino Transferase 42 U/L (14-36); Bilirubin,Total 0.8 mg/dL (0.2-1.3); Blood Urea Nitrogen 14 mg/dL (7-17); Calcium 9.0 mg/dL (8.4-10.2); Carbon Dioxide 31 mmol/L (22-30); Chloride 101 mmol/L (98-107); Estimated Glomerular Filt Rate > 60; Glucose 120 mg/dL (65-110); Potassium 4.3 mmol/L (3.4-5.0); Sodium 139 mmol/L (137-145); Total Protein 7.2 g/dL (6.3-8.2)
== END 2024-10-28 10:01 | disposition home or self-care (01) ==
PROVIDERS: PCP Internal Medicine
DX: D46.9 Myelodysplastic syndrome, unspecified (principal)
CPT/HCPCS: 36415; 80053; 85025

== ENCOUNTER 2024-11-12 10:43 | Outpatient (NON) | payer MEDICARE, SELFPAY ==
--- OUTSIDE RECORDS SUMMARY | 2024-11-12 11:28 | XMS_ITS | Encounter Summary ---
Author Organization [facility] Address [address] [place] [address] Phone Care Team Providers Care Lead Clinical Research Coordinator Name Role Phone Bryan Davey DO Primary Care Provider +[phone]- [phone] Prateek King MD Unavailable Sherman Alvarez DO Unavailable Encounter Details Date Type Department Care Team (Late st Contact Info) Description 11/11/2024 10:15 AM CDT Office Visit [facility] Oncology [address] [place] [address] [address] [place] [phone] Chalino Chapa MD [address] [phone] [place], [place] [id number] MDS (myelodysplastic syndrome) (HCC) (Primary Dx); Myelodysplastic syndrome (HCC) Social History Tobacco Use Types Packs/Day Years Used Date Smoking Tobacco: Never Smokeless Tobacco: Never Alcohol Use Standard Drinks/Week Comments Yes 0 (1 standard drink = 0.6 oz pur e alcohol) [facility] Utilities Answer Date Recorded In the past 12 months has [employer] electric, gas, oil, or water company threatened to shut off services in your home? No 09/30/2024 Social Connection and Isolation Panel Answer Date Recorded In a typical week, how many times do you talk on the phone with family, friends, or neighbors? More than three times a week 09/30/2024 How often do you get togethe r with friends or relatives? More than three times a week 09/30/2024 How often do you attend chur ch or samaritan services? Never 09/30/2024 Do you belong to any clubs o r organizations such as jainism groups, unions, fraternal or athletic groups, or [...] any time in the past 12 m [facility], were you homeless or living in a jail (including now)? No 10/02/2024 Personal Safety Answer Date Recorded Have you ever been in or are you currently in a harmful physical or emotional relationship or is someone making you feel afraid or unsafe? Denies 09/28/2024 Comments Unknown Sex and Gender Information Value Date Recorded Sex Assigned at Not on file Legal Sex Female 1:43 AM SWIMMING POOL SALESPERSON Gender Identity Not on file Sexual Orientation Not on file documented as of this encounter Last Filed Vital Signs Vital Sign Reading Time Taken Comments Blood Pressure 112/48 11/11/2024 10:57 AM CDT Pulse 84 11/11/2024 10:57 AM CDT Temperature 36 C (96.8 F) 11/11/2024 10:57 AM CDT Respiratory Rate 18 11/11/2024 10:57 AM CDT Oxygen Saturation - - Inhaled Oxygen Concentration - - Weight 64.1 kg (141 lb 6.4 oz) 11/11/2024 10:57 AM CDT Height 152.4 cm (5') 11/11/2024 10:57 AM CDT Body Mass Index 27.62 11/11/2024 10:57 AM CDT documented in this encounter Progress Notes * Chalino Chapa MD - 11/11/2024 10:15 AM CDT Images from the original note were not included. Patient Identifying Data: Venessa Villar is a 84 y.o. female seen in followup today DIAGNOSIS: MDS with ring sideroblasts. HEMATOLOGY/ONCOLOGY TREATMENT HISTORY: 11/10/2023--. The patient is an 83-year-old female who had previously been under the care of another oncologist with the [facility] operating out of [facility] in [facility] to establish care. She had been seen for chronic anemia. 10/05/2022 BMBx revealed myelodysplastic syndrome with ring sideroblasts. SF3b1 mutation positive. She received multiple units of packed red blood cells from early July through early September 21, 2023 total at least 5 units. 04/22/2022 started Luspatercept . 10/2023 Luspatercept discontinued. 11/24/2023 Started Dacogen. (Cycle 1) 04/29/2024 Dacogen cycle 2 09/09/2024- Dacogen Cycle 03 October 2024-Hospitalized with febrile neutropenia and pneumonia Interval History: Venessa Villar is a 84 y.o. female with MDS with ring sideroblasts. She returns today for follow-up. As indicated, her most recent cycle of decitabine has been complicated by hospitalization in October with febrile neutropenia. In addition, her counts are down a bit, particularly her hemoglobin and platelet count. She feels well. Her performance status has been actually quite good. Her recently was sick and briefly hospitalized. She has been able to function both caring for herself and him during that period of time. She has no fever, night sweats or other constitutional symptoms. Review of Systems Review of systems positive for symptoms as per interval history. All other review of systems negative. Objective Vitals: Vitals: 11/11/24 1057 BP: 112/48 BP Location: Right arm Pulse: 84 Resp: 18 Temp: 36 ??C (96.8 ??F) TempSrc: Skin Weight: 64.1 kg (141 lb 6.4 oz) Height: 152.4 cm (5') PERFORMANCE STATUS: ECOG 1 PHYSICAL EXAM: Physical Exam Vitals reviewed. Constitutional: General: She is not in acute distress. Appearance: Normal appearance. She is normal weight. She is not ill-appearing. HENT: Head: Normocephalic. Eyes: Extraocular Movements: Extraocular movements intact. Cardiovascular: Rate and Rhythm: Normal rate and regular rhythm. Heart sounds: Normal heart sounds. Pulmonary: Effort: Pulmonary effort is normal. Breath sounds: Normal breath sounds. No decreased breath sounds, wheezing, rhonchi or rales. Abdominal: General: Abdomen is flat. Bowel sounds are normal. There is no distension. Palpations: Abdomen is soft. Musculoskeletal: Cervical back: Normal range of motion. Right lower leg: No edema. Left lower leg: No edema. Skin: General: Skin is warm and dry. Neurological: Mental Status: She is alert and oriented to person, place, and time. Motor: No weakness. Gait: Gait normal. Psychiatric: Mood and Affect: Mood normal. Behavior: Behavior normal. Thought Content: Thought content normal. Lab/Radiology/Diagnostic Review: Hematology Lab History Latest Ref Rng & Units 10/14/2024 09:17 10/17/2024 11:10 10/21/2024 08:25 11/11/2024 10:45 Labs - Hematology WBC 3.80 - 9.90 K/cumm 1.48 1.69 1.54 1.87 Total Hb, POC 11.9 - 15.5 g/dL 7.8 7.3 8.5 7.2 Hct 35.6 - 45.5 % 24.6 22.8 26.5 22.5 Plt 150 - 400 K/cumm 142 144 153 111 Neutrophil abs 1.50 - 6.50 K/cumm 0.51 0.64 0.69 1.08 Lymphocytes, abs 0.80 - 3.30 K/cumm 0.81 0.84 0.68 0.55 Chemistry Component Value Date/Time SODIUM 139 10/21/2024 0825 POTASSIUM 4.2 10/21/2024 0825 POTASSIUM 4.0 02/09/2017 1257 CHLORIDE 99 10/21/2024 0825 CO2 31 10/21/2024 0825 BUNSER 11 10/21/2024 0825 CREATININE 0.59 (L) 10/21/2024 0825 GLUCOSE 169 10/21/2024 0825 Component Value Date/Time CALCIUM 10.0 10/21/2024 0825 ALKPHOS 51 10/21/2024 0825 AST 39 10/21/2024 0825 ALT 90 (H) 10/21/2024 0825 BILITOT 0.6 10/21/2024 0825 Recent labs, radiology and pathology reviewed in [facility] ASSESSMENT: MDS with ring sideroblasts: On Decitabine PRN rather than on a monthly schedule; We are letting hercounts determine when her next dose is due. Unfortunately, she may be starting to show some signs of decitabine resistance given the drop in hemoglobin and platelets after a relatively short intervalsince her last treatment. In addition, this may indicate an evolution to leukemia. PLAN: On observation and treatment with Decitabine is PRN. She will recheck her CBC on November 14 and undergo packed red cell transfusion if needed. If her counts continue to drop we will need to enhance our oversight of her counts and potential transfusions. She will likely need a repeat bone marrow aspirate and biopsy to determine the status ofher marrow. I have reviewed vital signs, lab results, plan of care and recommended follow up with the patient, who verbalize understanding. All questions were answered. Chalino Chapa MD Internal Medicine-Medical Oncology [facility] in [place] - Physicians in [place] [address] [facility] [address]; [address] [place] [address] Office: documented in this encounter Plan of Treatment Pending Results Name Type Priority Associated Diagnoses Date /Time Erythropoietin Lab Routine MDS (myelodysplastic syndrome) (HCC) 11/11/2024 11:30 AM CDT Scheduled Orders Name Type Priority Associated Diagnoses Orde r Schedule CBC with auto differential Lab Routine MDS (myelodysplastic syndrome) ([facility]) weekly for 3 Occurrences starting 11/11/2024 until 11/04/2025 Comprehensive metabolic panel Lab Routine MDS (myelodysplastic syndrome) ([facility]) Expected: 12/03/2024, Expires: 11/11/2025 Type and screen Lab Routine MDS (myelodysplastic syndrome) ([facility]) weekly for 3 Occurrences starting 11/11/2024 until 11/04/2025 Erythropoietin Lab Routine MDS (myelodysplastic syndrome) ([facility]) Expected: 11/11/2024, Expires: 11/11/2025 CBC with auto differential Lab Routine MDS (myelodysplastic syndrome) ([facility]) Expected: 11/14/2024, Expires: 11/11/2025 documented as of this encounter Results * (ABNORMAL) Folate (11/11/2024 11:30 AM CDT) Pathologist [facility] Folic acid 3.5(L) >=5.0 ng/mL [facility] ([place]) Blood 11/11/2024 11:3 0 AM CDT 11/11/2024 11:53 AM CDT us Chalino Chapa MD LAB BLOOD ORDERABLES Aylin l Result [facility] ([place]) 1 [facility] [place] [address] * Vitamin B12 (11/11/2024 11:30 AM CDT) Pathologist [facility] Vitamin B12 1,022 230 - 1,250 pg/mL [facility] ([place]) Blood 11/11/2024 11:3 0 AM CDT 11/11/2024 11:53 AM CDT us Chalino Chapa MD LAB BLOOD ORDERABLES Aylin l Result [facility] ([place]) 1 [facility] [place] [address] documented in this encounter Visit Diagnoses Diagnosis MDS (myelodysplastic syndrome) (HCC)- Primary Myelodysplastic syndrome, unspecified Myelodysplastic syndrome (HCC) Myelodysplastic syndrome, unspecified documented in this encounter Orders Appointment Requests Count Last Ordered Date Fi rst Ordered Date ONCBCN BLOOD TRANSFUSION APPT 2 11/11/2024 ONCBCN CLINIC APPOINTMENT REQUEST 2 025 ONCBCN LAB APPOINTMENT 2 11/11/2024 documented in this encounter Care Teams Lead Clinical Research Coordinator Relationship Specialty Start Date End Date Bryan Davey DO PCP - General Internal Medicine 11/14/23 Prateek King MD [address] [place] [address] Consulting Physician Urology 10/07/24 Sherman Alvarez DO [address] [place] [address] Medical Oncologist/Manager Safe Hematology and Oncology 10/07/24 documented as of this encounter
--- OUTSIDE RECORDS SUMMARY | 2024-11-12 11:28 | XMS_ITS | Encounter Summary ---
Author Organization [facility] Healthcare Address [address] [place] [address] Care Team Providers Care Cigar Patcher Name Role Phone Bryan Davey DO Primary Care Provider [phone] Prateek King MD Unavailable Sherman Alvarez DO Unavailable [phone] Reason for Visit * Reason Comments Port Draw Port Flush Encounter Details Date Type Department Care Team (Late st Contact Info) Description 11/11/2024 10:30 AM [facility] Cancer Infusion [address] [address] Emile Jackson RN Encounter for care related to Port-a-Cath (Primary Dx); Myelodysplastic syndrome (HCC); MDS (myelodysplastic syndrome) (HCC) Social History Tobacco Use Types Packs/Day Years Used Date Smoking Tobacco: Never Smokeless Tobacco: Never Alcohol Use Standard Drinks/Week Comments Yes 0 (1 standard drink = 0.6 oz pur e alcohol) [facility] Utilities Answer Date Recorded In the past 12 months has [employer], gas, oil, or water company threatened to [...] often do you attend chur ch or gnosticist services? Never 09/30/2024 Do you belong to any clubs o r organizations such as protestant groups, unions, fraternal or athletic groups, or [...] any time in the past 12 m [facility], were you homeless or living in a nursing home (including now)? No 10/02/2024 Personal Safety Answer Date Recorded Have you ever been in or are you currently in a harmful physical or emotional relationship or is someone making you feel afraid or unsafe? Denies 09/28/2024 Comments Unknown Sex and Gender Information Value Date Recorded Sex Assigned at Not on file Legal Sex Female 1:43 AM OB/GYN PHYSICIAN Gender Identity Not on file Sexual Orientation Not on file documented as of this encounter Nursing Notes * Emile Jackson RN - 11/11/2024 10:30 AM CDT Patient presented to infusion center for labs and possible blood transfusion. Vitals were taken andstable. Port was accessed and showed brisk blood return and easy flush. Labs were drawn. Patient saw doctor, who recommended patient come in for possible blood. Port was de-accessed and showed brisk blood return and easy flush. AVS was printed and presented to patient who was discharged in stable condition. documented in this encounter Plan of Treatment Not on file documented as of this encounter Visit Diagnoses Diagnosis Encounter for care related to [id number]- Primary Myelodysplastic syndrome (HCC) Myelodysplastic syndrome, unspecified MDS (myelodysplastic syndrome) (HCC) Myelodysplastic syndrome, unspecified documented in this encounter Administered Medications Inactive Administered Medications - up to 3 most recent administrations Medication Order MAR Action Action Date Dose Rate Site heparin 100 unit/mL injection 500 Units 500 Units (5 mL), IV flush, Once as needed, line care, Starting on Mon11/11/24 at 1132, For 1 dose, Flush with Heparin immediately prior to de-accessing port.Indications:Encounter for care related to Port-a-Cath Given 11/11/2024 11:37 AM CDT 500 Units sodium chloride 0.9% flush 10 mL 10 mL, intravenous, As needed, line care, Starting on Mon11/11/24 at 1132, Flush pre and post IV catheter use.Indications:Encounter for care related to Port-a-Cath Given 11/11/2024 11:37 AM CDT 10 mL documented in this encounter Orders Nursing Count Last Ordered Date First Orde red Date PORT-A-CATH MANAGEMENT PROTOCOL 1 5 Appointment Requests Count Last Ordered Date Fi rst Ordered Date ONCBCN BLOOD TRANSFUSION APPT 1 11/11/2024 documented in this encounter Care Teams Cigar Patcher Relationship Specialty Start Date End Date Bryan Davey DO PCP - General Internal Medicine 11/14/23 Prateek King MD [address] [place] [address] Consulting Physician Urology 10/07/24 Sherman Alvarez DO [address] [place] [id number] Medical Oncologist/Business Excellence Leader Hematology and Oncology 10/07/24 documented as of this encounter
--- OUTSIDE RECORDS SUMMARY | 2024-11-12 11:29 | XMS_ITS | Encounter Summary ---
Author Organization [facility] Address [address] [place] [address] Phone Care Team Providers Care Senior Software Qa Engineer Name Role Phone Bryan Davey DO Primary Care Provider [phone] Prateek King MD Unavailable Sherman Alvarez DO Unavailable [phone] Reason for Visit * Reason Comments Follow-up MDS Encounter Details Date Type Department Care Team (Late st Contact Info) Description 10/21/2024 8:45 AM CDT Office Visit [facility] Physicians [facility] Oncology [address] [place] [address] Medical Office [facility] [address] [address] Milla Armenta, CLAUDIA [address] [place] [address] [address] [place] [address] Myelodysplastic syndrome (HCC) (Primary Dx); MDS (myelodysplastic syndrome) (HCC) Social History Tobacco Use Types Packs/Day Years Used Date Smoking Tobacco: Never Smokeless Tobacco: Never Alcohol Use Standard Drinks/Week Comments Yes 0 (1 standard drink = 0.6 oz pur e alcohol) C Utilities Answer Date Recorded In the past [...] often do you attend chur ch or scientologist services? 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 Patient Identifying Data: Venessa Villar is a 84 y.o. female seen in followup today DIAGNOSIS: MDS with ring sideroblasts. HEMATOLOGY/ONCOLOGY TREATMENT HISTORY: 11/10/2023--. The patient is an 83-year-old female who had previously been under the care of another oncologist with the [facility] operating out [facility] in [facility] to [facility] care. She had been seen for chronic [...] ring sideroblasts. She returns today for follow-up. She received 1 unit of blood last week for hemoglobin of 7.3. Overall, she reports improvement in her fatigue. Denies urinary symptoms and diarrhea. Has good appetite. ALT is 90. Off all antibiotics and had tylenol last week with her blood transfusion. CBC is pending for today. Review of Systems Review of systems positive for symptoms as per interval history. All other review of systems negative. Objective Vitals: Vitals: 10/21/24 0834 BP: 107/50 BP Location: Right arm Pulse: 98 Resp: 20 Temp: 36.2 ??C (97.1 ??F) TempSrc: Skin SpO2: 98% Weight: 63 kg (139 lb) PERFORMANCE STATUS: ECOG 1 PHYSICAL EXAM: Physical [...] Lab History Latest Ref Rng & Units 10/07/2024 05:29 10/11/2024 11:50 10/14/2024 09:17 10/17/2024 11:10 Labs - Hematology WBC 3.80 - 9.90 K/cumm 0.64 1.24 1.48 1.69 Total Hb, POC 11.9 - 15.5 g/dL 7.2 7.7 7.8 7.3 Hct 35.6 - 45.5 % 21.9 23.9 24.6 22.8 Plt 150 - 400 K/cumm 142 157 142 144 Neutrophil abs 1.50 - 6.50 K/cumm 0.13 0.43 0.51 0.64 Lymphocytes, abs 0.80 - 3.30 K/cumm 0.49 0.73 0.81 0.84 Chemistry Component Value Date/Time SODIUM 139 10/17/2024 1110 POTASSIUM 4.0 10/17/2024 1110 POTASSIUM 4.0 02/09/2017 1257 CHLORIDE 100 10/17/2024 1110 CO2 29 10/17/2024 1110 BUNSER 14 10/17/2024 1110 CREATININE 0.59 (L) 10/17/2024 1110 GLUCOSE 153 10/17/2024 1110 Component Value Date/Time CALCIUM 9.7 10/17/2024 1110 ALKPHOS 47 10/17/2024 1110 AST 34 10/17/2024 1110 ALT 71 (H) 10/17/2024 1110 BILITOT 0.5 10/17/2024 1110 Recent labs, radiology and pathology reviewed in [facility] ASSESSMENT: MDS with ring sideroblasts: On Decitabine PRN rather than on a monthly schedule; We are letting hercounts determine when her next dose is due. CBC pending for today. PLAN: On observation and treatment with Decitabine is PRN. She will return in 1 week for CBC. She is tentatively scheduled for a repeat blood transfusion. Mariann return in 3 weeks for office visit with repeat laboratory studies. She knows to call with any questions or concerns I have reviewed vital signs, lab results, plan of care and recommended follow up with the patient, who verbalize understanding. All questions were answered. Milla Armenta NP Internal Medicine-Medical Oncology [facility] in [place] - Physicians in [address] [address] Office: documented in this encounter Miscellaneous Notes * Addendum Note - Theresa Gutierres RN - 10/21/2024 8:45 AM CDTAddended by: THERESA GUTIERRES on: 10/21/2024 09:57 AM Modules accepted: Orders * Addendum Note - Clau Cabral CLT - 10/21/2024 8:45 AM CDTAddended by: CLAU CABRAL on: 11/11/2024 10:38 AM Modules accepted: Orders documented in this encounter Plan of Treatment Scheduled Orders Name Type Priority Associated Diagnoses Orde r Schedule CBC with auto differential Lab Routine Myelodysplastic syndrome (HCC) 2 weeks for 2 Occurrences starting 10/21/2024 until 10/21/2025 Type and screen Lab Routine Myelodysplastic syndrome (HCC) Expected: 10/28/2024, Expires: 10/16/2025 Type and screen Lab Routine Myelodysplastic syndrome (HCC) MDS (myelodysplastic syndrome) (HCC) Expected: 11/11/2024, Expires: 10/21/2025 documented as of this encounter Results * (ABNORMAL) CBC with auto differential (11/11/2024 10:45 AM CDT) WBC 1.87(L) 3.80 - 9.90 K/cumm [facility] ([place]) Comment:Testing performed by : [facility] [address], Medical Office [facility] [address] [place] [address] Hgb 7.2(L) 11.9 - 15.5 g/dL [facility] ([place]) Comment:Testing performed by : [facility] [address], Medical Office [facility] [address], [place] [address] Hct 22.5(L) 35.6 - 45.5 % [facility] ([place]) Comment:Testing performed by : [facility] [address], Medical Office [facility] [address] [place] [address] Plt 111(L) 150 - 400 K/cumm [facility] ([place]) Comment:Testing performed by : [facility] [address], Medical Office [facility] [address], [place] [address] MPV 11.0 9.1 - 12.3 fL [facility] ([place]) Comment:Testing performed by : [facility] [address], Medical Office [facility] [address], [place] [address] RBC 2.03(L) 3.90 - 5.20 M/cumm [facility] ([place]) Comment:Testing performed by : [facility] [address], Medical Office [facility] [address], [place] [address] MCV 110.8(H) 81.3 - 96.4 fL [facility] ([place]) Comment:Testing performed by : [facility] [address], Medical Office [facility] [address], [place] [address] MCH 35.5(H) 27.1 - 33.3 pg [facility] ([place]) Comment:Testing performed by : [facility] [address], Medical Office [facility] [address], [place] [address] MCHC 32.0(L) 32.3 - 35.7 g/dL [facility] ([place]) Comment:Testing performed by : [facility] [address], Medical Office [facility] [address], [place] [address] RDW CV 26.2(H) 11.1 - 14.9 % [facility] ([place]) Comment:Testing performed by : [facility] [address], Medical Office [facility] [address], [place] [address] RDW SD 96.8(H) 35.7 - 48.1 fL [facility] ([place]) Comment:Testing performed by : [facility] [address], Medical Office [facility] [address], [place] [address] Blood 11/11/2024 10:4 5 AM CDT 11/11/2024 11:00 AM CDT Milla Armenta GLAZE WIPER LAB BLOOD ORDERABLES Final Result [facility] ([place]) [facility] Department [place] [address] documented in this encounter Visit Diagnoses Diagnosis Myelodysplastic syndrome (HCC)- Primary Myelodysplastic syndrome, unspecified MDS (myelodysplastic syndrome) (HCC) Myelodysplastic syndrome, unspecified documented in this encounter Orders Appointment Requests Count Last Ordered Date Fi rst Ordered Date ONCBCN BLOOD TRANSFUSION APPT 2 11/11/2024 10/21/2024 ONCBCN CLINIC APPOINTMENT REQUEST 2 025 10/21/2024 ONCBCN LAB APPOINTMENT 1 11/11/2024 documented in this encounter Care Teams Senior Software Qa Engineer Relationship Specialty Start Date End Date Bryan Davey DO PCP - General Internal Medicine 11/14/23 Prateek King MD [address] [place] [address] Consulting Physician Urology 10/07/24 Sherman Alvarez DO [address] [place] [id number] Medical Oncologist/Historian Research Assistant Hematology and Oncology 10/07/24 documented as of this encounter
--- OUTSIDE RECORDS SUMMARY | 2024-11-12 11:29 | XMS_ITS | Encounter Summary ---
Author Organization [facility] Healthcare Address [address] [place] [address] Care Team Providers Care Casework Supervisor Name Role Phone Bryan Davey DO Primary Care Provider [phone] Prateek King MD Unavailable Sherman Alvarez DO Unavailable [phone] Encounter Details Date Type Department Care Team (Late st Contact Info) Description 11/11/2024 9:45 AM CDT Lab [address] [address] Myelodysplastic syndrome (HCC); MDS (myelodysplastic syndrome) (HCC); Chronic anemia Social History Tobacco Use Types Packs/Day Years Used Date Smoking Tobacco: Never Smokeless Tobacco: Never Alcohol Use Standard Drinks/Week Comments Yes 0 (1 standard drink = 0.6 oz pur e alcohol) [facility] Utilities Answer Date Recorded In the past 12 months has [employer] electric, gas, oil, or water company threatened [...] any clubs o r organizations such as taoist groups, unions, fraternal or athletic groups, or [...] any time in the past 12 m [facility], were you homeless or living in a halfway (including now)? No 10/02/2024 Personal Safety Answer Date Recorded Have you ever been in or are you currently in a harmful physical or emotional relationship or is someone making you feel afraid or unsafe? 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 Gender Identity Not on file Sexual Orientation Not on file documented as of this encounter Last Filed Vital Signs Vital Sign Reading Time Taken Comments Blood Pressure 142/49 11/11/2024 10:56 AM CDT Pulse 80 11/11/2024 10:56 AM CDT Temperature 36.2 C (97.1 F) 11/11/2024 10:56 AM CDT Respiratory Rate 18 11/11/2024 10:56 AM CDT Oxygen Saturation 100% 11/11/2024 10:56 AM CDT Inhaled Oxygen Concentration - - Weight - - Height - - Body Mass Index - - documented in this encounter Plan of Treatment Pending Results Name Type Priority Associated Diagnoses Date /Time Erythropoietin Lab Routine MDS (myelodysplastic syndrome) (HCC) 11/11/2024 11:30 AM CDT documented as of this encounter Procedures Procedure Name Priority Date/Time Associated Diagnosis Comments ABO/RH Routine 11/11/2024 11:30 AM CDT MDS (myelodysplastic syndrome) (HCC) ANTIBODY SCREEN Routine 11/11/2024 11:30 AM CDT MDS (myelodysplastic syndrome) (HCC) TYPE AND SCREEN Routine 11/11/2024 11:30 AM CDT MDS (myelodysplastic syndrome) (HCC) FOLATE Routine 11/11/2024 11:30 AM CDT MDS (myelodysplastic syndrome) (HCC) VITAMIN B12 Routine 11/11/2024 11:30 AM CDT MDS (myelodysplastic syndrome) (HCC) DIFFERENTIAL AUTO Routine 11/11/2024 10: 45 AM CDT Myelodysplastic syndrome (HCC) MDS (myelodysplastic syndrome) (HCC) CBC WITH AUTO DIFFERENTIAL Routine 11/11/2024 10:45 AM CDT Myelodysplastic syndrome (HCC) MDS (myelodysplastic syndrome) (HCC) EGFR Routine 11/11/2024 8:11 AM CDT MDS (myelodysplastic syndrome) (HCC) Chronic anemia COMPREHENSIVE METABOLIC PANEL Routine 11/11/2024 8:11 AM CDT MDS (myelodysplastic syndrome) (HCC) Chronic anemia documented in this encounter Results * Antibody screen (11/11/2024 11:30 AM CDT) Rivera, indirect, Gel Interpretation Negative [facility]SC Comment:Testing performed by : [place], [address] Blood 11/11/2024 11:3 0 AM CDT 11/11/2024 11:53 AM CDT Narrative [facility] [place]) - 11/11/2024 12:32 PM CDT Has the patient had Daratumumab or Isatuximab in the past 6 months?->Unknown Chalino Chapa MD LAB BLOOD BANK TEST ORDER LAITH Final Result [facility] ([facility]) [address] [place] [address] Department of [place] [address] * ABO/Rh (11/11/2024 11:30 AM CDT) ABO/Rh O Positive Comment:Testing performed by : [place], [address] Blood 11/11/2024 11:3 0 AM CDT 11/11/2024 11:53 AM CDT Narrative [facility] [place]) - 11/11/2024 12:32 PM CDT Has the patient had Daratumumab or Isatuximab in the past 6 months?->Unknown Chalino Chapa MD LAB BLOOD BANK TEST ORDER LAITH Final Result [facility] ([facility]) [address] [place] [address] Department [place] [address] * Vitamin B12 (11/11/2024 11:30 AM CDT) Pathologist [facility] Vitamin B12 1,022 230 - 1,250 pg/mL [facility]) Blood 11/11/2024 11:3 0 AM CDT 11/11/2024 11:53 AM CDT Chalino Chapa MD LAB BLOOD ORDERABLES Aylin l Result [facility] ([place]) 1 [facility] Department [place] [address] * (ABNORMAL) Folate (11/11/2024 11:30 AM CDT) Pathologist [facility] Folic acid 3.5(L) >=5.0 ng/mL [facility] ([place] [place]) Blood 11/11/2024 11:3 0 AM CDT 11/11/2024 11:53 AM CDT us Chalino Chapa MD LAB BLOOD ORDERABLES Aylin l Result Performing Organization Address City[facility] Co de Phone Number [facility] ([place]) 1 [facility] of [place] [address] * (ABNORMAL) Differential, auto (11/11/2024 10:45 AM CDT) Pathologist [facility] Neutrophil abs 1.08(L) 1.50 - 6.50 K/cumm [facility] ([place]) Comment:Testing performed by : [facility] [address], Medical Office [facility], [place] [address] Imm gran abs 0.02 0.00 - 0.10 K/cumm [facility] ([place]) Comment:Testing performed by : [facility] [address], Medical Office [facility], [place] [address] Lymphocyte abs 0.55(L) 0.80 - 3.30 K/cumm [facility] ([place]) Comment:Testing performed by : [facility] [address], Medical Office [facility], [place] [address] Monocyte abs 0.17(L) 0.20 - 0.80 K/cumm [facility] ([place]) Comment:Testing performed by : [facility] [address], Medical Office [address], [place] [address] Eosinophil abs 0.04 0.00 - 0.50 K/cumm [facility] ([place]) Comment:Testing performed by : [facility] [address], Medical Office [address], [place] [address] Basophil abs 0.01 0.00 - 0.10 K/cumm [facility] ([place]) Comment:Testing performed by : [facility] [address], Medical Office [facility] [address], [place] [address] Neutrophil pct 57.8 % [facility] ([place]) Comment: Interpretive Data Percent cell count reference ranges are not reported, since discordance with absolute values may lead to misinterpretation of CBC data. Current Interpretive Data was last revised on 2022. Testing performed by: [facility] [address], Medical Office [facility] [address], [place] [address] Imm gran pct 1.1 % [facility] ([place]) Comment: Interpretive Data Percent cell count reference ranges are not reported, since discordance with absolute values may lead to misinterpretation of CBC data. Current Interpretive Data was last revised on 2022. Testing performed by: [facility] [address], Medical Office [facility] [address], [place] [address] Lymphocyte pct 29.4 % [facility] ([place]) Comment: Interpretive Data Percent cell count reference ranges are not reported, since discordance with absolute values may lead to misinterpretation of CBC data. Current Interpretive Data was last revised on 2022. Testing performed by: [facility] [address], Medical Office [facility] [address], [place] [address] Monocyte pct 9.1 % [facility] ([place]) Comment: Interpretive Data Percent cell count reference ranges are not reported, since discordance with absolute values may lead to misinterpretation of CBC data. Current Interpretive Data was last revised on 2022. Testing performed by: [facility] [address], Medical Office [address], [place] [address] Eosinophil pct 2.1 % [facility] ([place]) Comment: Interpretive Data Percent cell count reference ranges are not reported, since discordance with absolute values may lead to misinterpretation of CBC data. Current Interpretive Data was last revised on 2022. Testing performed by: [facility] [address], Medical Office [facility] [address], [place] [address] Basophil pct 0.5 % [facility] ([place]) Comment: Interpretive Data Percent cell count reference ranges are not reported, since discordance with absolute values may lead to misinterpretation of CBC data. Current Interpretive Data was last revised on 2022. Testing performed by: [facility] [address], Medical Office [facility], [place] [address] Blood 11/11/2024 10:4 5 AM CDT 11/11/2024 11:00 AM CDT Milla Armenta ENGLISH LANGUAGE ARTS TEACHER LAB BLOOD ORDERABLES Final Result [facility] ([place]) 1 [facility] Department [place] [address] * (ABNORMAL) CBC with auto differential (11/11/2024 10:45 AM CDT) WBC 1.87(L) 3.80 - 9.90 K/cumm [facility] ([place]) Comment:Testing performed by : [facility] [address], Medical Office [facility] [address], [place] [address] Hgb 7.2(L) 11.9 - 15.5 g/dL [facility] ([place]) Comment:Testing performed by : [facility] [address], Medical Office [facility] [address], [place] [address] Hct 22.5(L) 35.6 - 45.5 % [facility] ([place]) Comment:Testing performed by : [facility] [address], Medical Office [facility] [address], [place] [address] Plt 111(L) 150 - 400 K/cumm [facility] ([place]) Comment:Testing performed by : [facility] [address], Medical Office [address], [place] [address] MPV 11.0 9.1 - 12.3 fL [facility] ([place]) Comment:Testing performed by : [facility] [address], Medical Office [address], [place] [address] RBC 2.03(L) 3.90 - 5.20 M/cumm [facility] ([place]) Comment:Testing performed by : [facility] [address], Medical Office [address], [place] [address] MCV 110.8(H) 81.3 - 96.4 fL [facility] ([place]) Comment:Testing performed by : [facility] [address], Medical Office [facility] [address], [place] [address] MCH 35.5(H) 27.1 - 33.3 pg [facility] ([place]) Comment:Testing performed by : [facility] [address], Medical Office [address], [place] [address] MCHC 32.0(L) 32.3 - 35.7 g/dL [facility] ([place]) Comment:Testing performed by : [facility] [address], Medical Office [address], [place] [address] RDW CV 26.2(H) 11.1 - 14.9 % [facility] ([place]) Comment:Testing performed by : [facility] [address], Medical Office [facility] [address], [place] [address] RDW SD 96.8(H) 35.7 - 48.1 fL [facility] ([place]) Comment:Testing performed by : [facility] [address], Medical Office [facility] [address], [place] [address] Blood 11/11/2024 10:4 5 AM CDT 11/11/2024 11:00 AM CDT us Milla Armenta ENGLISH LANGUAGE ARTS TEACHER LAB BLOOD ORDERABLES Final Result [facility] ([place]) 1 [facility] Department [place] [address] * eGFR (11/11/2024 8:11 AM CDT) eGFR >90 >=60 mL/min/1. 73 [...] by: [facility], [facility], [place], [address] Blood 11/11/2024 8:11 AM CDT 11/11/2024 11:14 AM CDT us Chalino Chapa MD LAB BLOOD ORDERABLES Aylin freedman Result [facility]) 1 [facility] Department [place] [address] * (ABNORMAL) Comprehensive metabolic panel (11/11/2024 8:11 AM CDT) Sodium 138 135 - 145 mmol/L [facility]) Potassium, pl 3.9 3.3 - 4.9 mmol/L [facility] ([place]) Chloride 103 97 - 110 mmol/L [facility]) CO2 30 22 - 32 mmol/L [facility] Anion gap 5 2 - 15 mmol/L [facility] ([place]) BUN 12 6 - 25 mg/dL [facility] ([place]) Creatinine 0.46(L) 0.60 - 1.10 mg/dL [facility] ([place]) Glucose 158 70 - 199 mg/dL [facility] ([place]) [...] interpretive data was last revised 2022. Calcium 9.6 8.5 - 10.3 mg/dL [facility] ([place]) Bilirubin, total 0.8 0.1 - 1.2 mg/dL [facility] ([place]) Protein, pl 6.5 6.5 - 8.5 g/dL [facility] ([place]) Albumin 4.1 3.5 - 5.0 g/dL [facility] ([place]) Alk phos 42 40 - 130 Units/L [facility] ([place]) ALT 59(H) 7 - 45 Units/L [facility]) AST 24 10 - 45 Units/L [facility] ([place]) Blood 11/11/2024 8:11 AM CDT 11/11/2024 11:14 AM CDT us Chalino Chapa MD LAB BLOOD ORDERABLES Aylin freedman Result [facility] ([place]) 1 [facility] Department of Laboratories [place], [place] [id number] documented in this encounter Visit Diagnoses Diagnosis Myelodysplastic syndrome (HCC) Myelodysplastic syndrome, unspecified MDS (myelodysplastic syndrome) (HCC) Myelodysplastic syndrome, unspecified Chronic anemia Unspecified anemia documented in this encounter Orders Appointment Requests Count Last Ordered Date Fi rst Ordered Date ONCBCN LAB APPOINTMENT 1 11/11/2024 documented in this encounter Care Teams Casework Supervisor Relationship Specialty Start Date End Date Bryan Davey DO PCP - General Internal Medicine 11/14/23 Prateek King MD [address] [place] [address] Consulting Physician Urology 10/07/24 Sherman Alvarez DO [address] [place] [address] Medical Oncologist/Supervisor [employer] Hematology and Oncology 10/07/24 documented as of this encounter
--- OUTSIDE RECORDS SUMMARY | 2024-11-12 11:29 | XMS_ITS | Encounter Summary ---
Author Organization [facility] Address [address] [place] [address] Phone Care Team Providers Care Inside Sales Specialist Name Role Phone Bryan Davey DO Primary Care Provider [phone] Prateek King MD Unavailable Sherman Alvarez DO Unavailable [phone] Encounter Details Date Type Department Care Team (Late st Contact Info) Description 10/28/2024 Orders Only [facility] Oncology [address] [place] [address] Medical Office [address] [place] [phone] Chalino Chapa MD [address] [place] [address] MDS (myelodysplastic syndrome) (HCC) (Primary Dx); Chronic anemia Social History Tobacco Use Types Packs/Day Years Used Date Smoking Tobacco: Never Smokeless Tobacco: Never Alcohol Use Standard Drinks/Week Comments Yes 0 (1 standard drink = 0.6 oz pur e alcohol) [facility] Utilities Answer Date Recorded In the past 12 months has [employer] electric, gas, oil, or water company threatened [...] often do you attend chur ch or jehovah's witness services? Never 09/30/2024 Do you belong to any clubs o r organizations such as sikh groups, unions, fraternal or athletic groups, or [...] time in the past 12 m [facility], were you homeless or living in a usp (including now)? No 10/02/2024 Personal Safety Answer Date Recorded Have you ever been in or are you currently in a harmful physical or emotional relationship or is someone making you feel afraid or unsafe? Denies 09/28/2024 Comments Unknown Sex and Gender Information Value Date Recorded Sex Assigned at Not on file Legal Sex Female 1:43 AM COPY SUPERVISOR Gender Identity Not on file Sexual Orientation Not on file documented as of this encounter Miscellaneous Notes * Addendum Note - Primitivo Cabral CLT - 10/28/2024 8:04 AM CDTAddended by: PRIMITIVO CABRAL on: 11/11/2024 10:40 AM Modules accepted: Orders documented in this encounter Plan of Treatment Scheduled Orders Name Type Priority Associated Diagnoses Orde r Schedule CBC with auto differential Lab Routine MDS (myelodysplastic syndrome) (HCC) Chronic anemia Expected: 10/28/2024, Expires: 10/28/2025 documented as of this encounter Results * (ABNORMAL) Comprehensive metabolic panel (11/11/2024 8:11 AM CDT) Sodium 138 135 - 145 mmol/L [facility] ([place]) Potassium, pl 3.9 3.3 - 4.9 mmol/L [facility]) Chloride 103 97 - 110 mmol/L [facility]) CO2 30 22 - 32 mmol/L [facility]) Anion gap 5 2 - 15 mmol/L [facility] ([place]) BUN 12 6 - 25 [...] MD LAB BLOOD ORDERABLES Aylin l Result [facility] ([place]) 1 [facility] Department [place] [address] documented in this encounter Visit Diagnoses Diagnosis MDS (myelodysplastic syndrome) (HCC)- Primary Myelodysplastic syndrome, unspecified Chronic anemia Unspecified anemia documented in this encounter Care Teams Inside Sales Specialist Relationship Specialty Start Date End Date Bryan Davey DO PCP - General Internal Medicine 11/14/23 Prateek King MD [address] [place] [address] Consulting Physician Urology 10/07/24 Sherman Alvarez DO [address] [place] [address] Medical Oncologist/[employer] [facility] Hematology and Oncology 10/07/24 documented as of this encounter
--- OUTSIDE RECORDS SUMMARY | 2024-11-12 11:29 | XMS_ITS | Clinical Summary ---
Author Organization [facility] Address [address] [place] [address] Care Team Providers Care Graduate Studies Dean Name Role Phone Unavailable Primary Care Provider [...] 04/03/2016 Insurance MEDICARE PART A AND B [facility]
--- OUTSIDE RECORDS SUMMARY | 2024-11-12 11:30 | XMS_ITS ---
Author Organization [facility] Medical Office Building [address] Address [address] [place] [address] Care Team Providers Care Mold Closer Helper Name Role Phone Bryan Davey DO Primary Care Provider [phone] Prateek King MD Unavailable Sherman Alvarez DO Unavailable [phone] Active Problems Problem Noted Date Diagnosed Date [...] 10/17/2024 10/17/2024 No medications scheduled. Therapy Complete Chalino Chapa MD Adult ONE TIME USE - Blood and/or Platelet Administration for Outpatient 10/14/2024 10/14/2024 No medications scheduled. Provider Discretion Chalino [...] - Blood and/or Platelet Administration for Outpatient 05/20/2024 08/29/2024 No medications scheduled. Therapy Complete Chalino [...] (06/06/2018): Added automatically from request for surgery [id number]
--- OUTSIDE RECORDS SUMMARY | 2024-11-12 11:30 | XMS_ITS | Clinical Summary ---
Author Organization [facility] Facility Address [address] [facility] [address] [place] [address] Care Team Providers Care Director Of Supply Chain Name Role Phone Unavailable Primary Care Provider [...] Department Care Team Description 10/07/2024 Documentation Only [facility] [address] [place] [address] Ricky Moseley MD 09/30/2024 Orders Only [facility] [address] [place] [address] Nargis Helms MA 08/29/2024 Documentation Only [facility] [address] [place] [address] Ricky Moseley MD from Last 3 Months [...]
--- OUTSIDE RECORDS SUMMARY | 2024-11-12 11:30 | XMS_ITS | Clinical Summary ---
Author Organization [facility] Address [address] [place] [address] Care Team Providers Care Theatrical Scenic Designer Name Role Phone Mervat Kelley GERA-DOCUMENTATION CONSULTANT Primary Care Provider + Source Comments [facility],non-owned Affiliates and Associated Physician Practices is amultiple site organization consisting of ambulatory clinics and hospital sitesin [place], [place], [place] and [place]. This disclosure is being madepursuant to the [...] daily Active fish oil/omega-3 fatty acids (Promega;Cardi -Boaz 3) 1000 MG capsule Take 2 (two) [...] 71.7 kg (158 lb) 04/06/2022 10:56 AM MEAT PRESS OPERATOR Height 152.4 cm (5') 12/22/2021 12:39 PM [...] age to complete this topic Insurance [facility] Advance Directives * Full Code (Latest Code Status on File) Date Activated Date Inactivated Comments 09/29/2021 4:59 AM 09/30/2021 2:57 PM Care Teams Theatrical Scenic Designer Relationship Specialty Start Date End Date Mervat Kelley APRN-CNP [address] [address] PCP - General 11/24/21
--- OUTSIDE RECORDS SUMMARY | 2024-11-12 11:30 | XMS_ITS | Encounter Summary ---
Author Organization [facility] Address [address] [facility] [place] [address] Care Team Providers Care Store Clerk Checker Name Role Phone Mervat Kelley EMBOSSING MACHINE OPERATOR HELPER-INGREDIENT SCALER Primary Care Provider + Encounter Details Date Type Department Care Team (Late st Contact Info) Description 10/06/2022 Lab Requisition [facility] - Pathology Lab [address] [place] [address] Jesus Louis MD [address] [address] Illness, unspecified Social History Tobacco [...] Report Bone Marrow Patholog y Report Case: [id number] Authorizing Provider: Jesus Louis MD Collected: 10/05/2022 09:15 AM Ordering Location: [facility] Pathology Lab Received: 10/06/2022 01:27 PM Pathologist: Linda Hauser MD Specimens: A) - Bone Marrow Clot, Fluoro-guided bone marrow aspiration B) - Bone Marrow Core, Fluoro-guided bone marrow core bx 10/07/2022 1:40 PM CDT [facility] Final Diagnosis Bone marrow, aspirate, [...] normal. Platelet morphology: normal. 10/07/2022 1:[address] [facility] PATHOLOGY LAB Bone Marrow Aspirate [...] Control is appropriately reactive. 10/07/2022 1:[address] [facility] PATHOLOGY LAB Bone Marrow Core [...] an increased number of early erythroid progenitors. [id number] demonstrates additional, more mature erythroid lineage cells, confirming erythroid hyperplasia. Myeloperoxidase is positive in relatively fewer numbers of myeloid precursors. CD3 and CD20 show a normal number and distribution of T-cells and B-cells, respectively. Reticulin staining shows no significant marrow fibrosis (MF-0), and trichrome staining shows no collagen deposition. 10/07/2022 1:[address] [facility] PATHOLOGY LAB Flow Cytometry Summary Concurrent flow cytometry ([id number]) shows no evidence of non-Hodgkin lymphoma or high-grade myeloid neoplasm. 10/07/2022 1:[address] [facility] PATHOLOGY LAB Clinical History 82 year old woman with macrocytic anemia. 10/07/2022 1:40 PM CDT [facility] Materials Received Received are 22 slides and 3 blocks (A1, A2; B1) labeled [id number] along with a copy of the outside pathology report. The materials originate from [facility], [address] [place] [address] [place] [id number]. All original materials are returned to the referring institution, along with a copy of our final report. 10/07/2022 1:40 PM CDT [facility] Pathologist Location at [facility] 10/07/2022 1:40 PM CDT [facility] Disclaimer The performance characteristics of all immunohistochemical and indirect immunofluorescence stains (if any) cited in this report were determined by the Histopathology Laboratory of [facility]. Some of these tests were developed [...] attending (teaching) pathologist. 10/07/2022 1:40 PM CDT [facility] Embedded Images 10/07/2022 1:40 PM CDT [facility] Pathology/Cytology BONE MARROW SPECIMEN / Unknown 10/05/2022 9:15 AM CDT 10/06/2022 1:27 PM CDT Miscellaneous samples (specimen) BONE MARROW SPECIMEN / Unknown 10/05/2022 9:15 AM CDT 10/06/2022 1:27 PM CDT us Jesus Louis MD LAB - PATHOLOGY/CYTOLOGY ORDERAB LES Final Result [facility] [address] [place], [place] [id number] [place] [address] documented in this encounter Visit Diagnoses Diagnosis Illness, unspecified documented in this encounter Care Teams Store Clerk Checker Relationship Specialty Start Date End Date Mervat Kelley APRN-DAVIS [address] [phone] PCP - General 11/24/21 documented as of this encounter
--- OUTSIDE RECORDS SUMMARY | 2024-11-12 11:30 | XMS_ITS | Clinical Summary ---
Author Organization [facility] Address [address], [address] [address] Phone Care Team Providers Care Tour Actor Name Role Phone ReinaldotravonMervat APRN Primary Care Provider [phone]- [phone] Medications polyethylene glycol (MIRALAX) Powder Use entire [...] age to complete this topic Insurance MEDICARE [facility] Care Teams Tour Actor Relationship Specialty Start Date End Date Mervat Kelley APRN PCP - General Advanced Practice Nurse 06/12/17
--- OUTSIDE RECORDS SUMMARY | 2024-11-12 11:30 | XMS_ITS | Encounter Summary ---
Author Organization [facility] Address [facility] [facility] [place] [address] Care Team Providers Care Take Out Waitress Name Role Phone Andie Ang MD Primary Care Provider + [phone] Mervat Kelley Primary Care Provider + Andie Ang MD Primary Care Provider + [phone] Mervat Kelley Primary Care Provider + Andie Ang MD Primary Care Provider + [phone] Mervat Kelley Primary Care Provider + Encounter Details Date Type Department Care Team (Late st Contact Info) Description 11/15/2018 Lab Requisition [facility] DermPath Lab [address] [facility] [place] [address] Sarath De Guzman MD [address] [place] [address] Social History Tobacco Use Types Packs/Day Years [...] AM CDT) Case Report Dermatopathology Report Case: [id number] Authorizing Provider: Sarath De Guzman MD Collected: 11/14/2018 12:00 AM Ordering Location: [facility] DermPath Lab Received: 11/15/2018 12:29 PM Pathologist: [...] specimen consists of a shave biopsy measuring [id number]. Jar 0. 12:59 PM CDT DERMATOPATHOLOGY LABORATORY [...] determined by the Dermatopathology Laboratory at [facility], directed by Dr. Frederick Schofield. These tests need not be, and therefore are not, approved by the [place] Food and Drug Administration. The tests are used for clinical purposes. Billing Codes Specimen Charges Stain Charges 74044 1 12:59 PM CDT DERMATOPATHOLOGY LABORATORY Embedded Images 12:59 PM CDT DERMATOPATHOLOGY LABORATORY Pathology/Cytolog y TISSUE SPECIMEN FROM SKIN / Unknown 11/14/2018 11/15/2018 12:29 PM CDT Sarath De Guzman MD LAB - PATHOLOGY/CYTOLOGY ORD ERABLES Final Result DERMATOPATHOLOGY LABORATORY [facility] - Department of Dermatology [address] [facility], [address] [place] [address], [facility] [phone] documented in this encounter Visit Diagnoses Not on filedocumented in this encounter Care Teams Take Out Waitress Relationship Specialty Start Date End Date Andie Ang MD [address] [phone] PCP - General 08/18/17 09/29/21 Mervat Kelley APRN-AREA OPERATIONS MANAGER [address] [place] [phone] PCP - General Nurse Practitioner 09/30/21 09/30/21 Andie Ang MD [address] [phone] PCP - General 10/01/21 10/12/21 Mervat Kelley APRN-AREA OPERATIONS MANAGER [address] [phone] PCP - General 10/13/21 10/31/21 Andie Ang MD [address] [phone] PCP - General 11/01/21 11/23/21 Mervat Kelley APRN-AREA OPERATIONS MANAGER [address] [phone] PCP - General 11/24/21 documented as of this encounter
--- OUTSIDE RECORDS SUMMARY | 2024-11-12 11:30 | XMS_ITS | Clinical Summary ---
Author Organization [facility] [address] Address [address] [place] [address] Care Team Providers Care [employer] Nurse Name Role Phone Bryan Davey DO Primary Care Provider [phone] Prateek King MD Unavailable Sherman Alvarez DO Unavailable [phone] Allergies Active Allergy Reactions Criticality Noted Date Comments Antihistamine-1 Anxiety Low 09/07/2022 Clarithromycin Itching,Nausea & Vomiting Low Clindamycin Other [...] 10 mg tabletIndicatio ns:MDS (myelodysplasti c syndrome) (FORM[facility]LY [facility]) Take 1 tablet (10 mg total) by mouth every 6 (six) hours as needed for nausea or vomiting 120 tablet 3 4 Active lidocaine-prilo danie (EMLA) creamIndication s:Administratio n of Local Anesthesia Apply topically as needed for pain Apply to site approx 30-60 minutes prior to use do not rub in, cover with light dressing 30 g 1 4 Active levothyroxine (SYNTHROID) 75 mcg tablet Take 1 tablet (75 mcg total) 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 Active docusate sodium (COLACE) 250 mg capsule Take 4 capsules (1,000 mg total) by mouth nightly Active melatonin tablet Take 2 tablets (6 mg total) by mouth nightly Active NON FORMULARY, FOR INPATIENT USE, Chew nightly Zzzquil Pure ZZZs Melatonin + Chamomile & Lavender Patient states she takes 1.5 to 2 gummies nightly Active levoFLOXacin (LEVAQUIN) 750 mg tablet Take 1 [...] (06/06/2018): Added automatically from request for surgery [id number] Encounters Date Type Department Care Team Description 11/11/2024 10:30 AM CDT Infusion [address] [place] [address] Emile Jackson, RN Encounter for care related to Port-a-Cath (Primary Dx); Myelodysplastic syndrome (HCC); MDS (myelodysplastic syndrome) (HCC) 11/11/2024 10:15 AM CDT Office Visit [facility] [address] [place] [address] Medical Office [address] [place] [address] Chalino Chapa MD MDS (myelodysplastic syndrome) (HCC) (Primary Dx); Myelodysplastic syndrome (HCC) 11/11/2024 9:45 AM CDT Lab [address] [place] [address] Myelodysplastic syndrome (HCC); MDS (myelodysplastic syndrome) (HCC); Chronic anemia 10/28/2024 Orders Only [facility] [address] [place] [address] Medical Office [address] [place] [address] Chalino Chapa MD MDS (myelodysplastic syndrome) (HCC) (Primary Dx); Chronic anemia 10/21/2024 9:00 AM CDT Infusion [address] [place] [address] MDS (myelodysplastic syndrome) (HCC) 10/21/2024 8:45 AM CDT Office Visit [facility] [address] [place] [address] Medical Office [address] [place] [address] Milla Armenta, CLAUDIA Myelodysplastic syndrome (HCC) (Primary Dx); MDS (myelodysplastic syndrome) (HCC) 10/21/2024 8:15 AM CDT Lab [address] [place] [address] MDS (myelodysplastic syndrome) (HCC) 10/17/2024 12:30 PM CDT Infusion [address] [place] [address] 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); MDS (myelodysplastic syndrome) (HCC); Encounter for care related to Port-a-Cath 10/17/2024 11:15 AM CDT Lab [address] [place] [address] MDS (myelodysplastic syndrome) (HCC) 10/17/2024 Orders Only [facility] [address] [place] [address] Medical Office [address] [place] [address] Chalino Chapa MD MDS (myelodysplastic syndrome) (HCC) (Primary Dx); Anemia in neoplastic disease 10/14/2024 8:30 AM CDT Infusion [address] [place] [phone] MDS (myelodysplastic syndrome) (HCC) 10/14/2024 8:00 AM CDT Lab [address] [place] [address] MDS (myelodysplastic syndrome) (HCC) 10/14/2024 8:00 AM CDT Office Visit [facility] [address] [place] [address] Medical Office [facility] [address] [place] [address] Chalino Chapa MD MDS (myelodysplastic syndrome) (HCC) (Primary Dx); Interstitial lung disease (HCC) 10/14/[address] [place] [address] Yadi Gtz RN 10/11/2024 11:45 AM CDT Lab [address] [place] [address] MDS (myelodysplastic syndrome) (FORM[facility]) 10/11/2024 Telephone [facility] [address] [place] [address] Office [facility] [address] [place] [address] Radha Brink RN 10/11/[address] Medical Office [facility] [address] [place] [address] Clau Cabral, CLT 09/28/2024 7:21 PM CDT - 10/07/2024 3:45 PM CDT Hospital Encounter [place] [address] [place] [address] Philip Bran MD Singh, Anjanya Devendra, MD [...] self care 09/23/2024 9:00 AM CDT Infusion [address] [place] [address] 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); MDS (myelodysplastic syndrome) (HCC); Chronic anemia 09/23/2024 8:15 AM CDT Lab [address] [place] [address] Anemia, unspecified type (Primary Dx); MDS (myelodysplastic syndrome) (HCC) 09/23/[address] [place] [address] Lourdes Hudson RN 09/23/2024 Orders Only [facility] [address] [place] [address] Medical Office [address] [place] [address] Chalino Chapa MD 09/23/2024 Orders Only [facility] [address] [place] [address] Office [address] [place] [address] Chalino Chapa MD MDS (myelodysplastic syndrome) (HCC) (Primary Dx); Chronic anemia 09/16/2024 9:30 AM CDT Infusion [address] [address] 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); MDS (myelodysplastic syndrome) (HCC); Encounter for care related to Port-a-Cath 09/16/2024 9:15 AM CDT Office Visit [facility] [address] [place] [address] Medical Office [address] [place] [address] Milla Armenta, CLAUDIA MDS (myelodysplastic syndrome) (HCC) (Primary Dx) 09/16/2024 8:45 AM CDT Lab [address] [place] [address] MDS (myelodysplastic syndrome) (HCC) 09/16/[address] [address] Chalino Chapa MD 09/13/2024 10:00 AM CDT Infusion [address] [place] [address] MDS (myelodysplastic syndrome) (HCC) (Primary Dx); Encounter for care related to Port-a-Cath 09/13/2024 Telephone [facility] [address] [place] [address] Medical Office [facility] [address] [place] [address] Clau Cabral, CLT 09/12/2024 11:00 AM CDT Infusion [address] [place] [address] MDS (myelodysplastic syndrome) (HCC) (Primary Dx); Encounter for care related to Port-a-Cath 09/11/2024 10:00 AM CDT Infusion [address] [place] [address] MDS (myelodysplastic syndrome) (HCC) (Primary Dx); Encounter for care related to Port-a-Cath 09/11/2024 Orders Only [facility] [address] [place] [address] Office [address] [place] [address] Milla Armenta, EQUITY STRUCTURER 09/10/2024 11:30 AM CDT Infusion [address] [place] [phone] MDS (myelodysplastic syndrome) (HCC) (Primary Dx); Encounter for care related to Port-a-Cath 09/09/2024 9:30 AM CDT Infusion [address] [place] [address] MDS (myelodysplastic syndrome) (HCC) (Primary Dx); Encounter for care related to Port-a-Cath 09/09/2024 9:15 AM CDT Office Visit [facility] [address] [place] [address] Medical Office [address] [place] [address] Milla Armenta, CLAUDIA MDS (myelodysplastic syndrome) (HCC) (Primary Dx) 09/09/2024 8:45 AM CDT Lab [address] [place] [address] MDS (myelodysplastic syndrome) (HCC) 09/02/2024 10:30 AM CDT Infusion [address] [place] [address] MDS (myelodysplastic syndrome) (HCC) (Primary Dx); Anemia in neoplastic disease 09/02/2024 10:00 AM CDT Office Visit [facility] [address] [place] [address] Medical [address] [place] [address] Chalino Chapa MD MDS (myelodysplastic syndrome) (HCC) (Primary Dx) 09/02/2024 9:30 AM CDT Lab [address] [place] [phone] MDS (myelodysplastic syndrome) (HCC) 08/30/2024 Telephone [facility] [address] [place] [address] Medical Office [facility] [address] [place] [address] Clau Cabral, CLT from Last 3 Months [...] eft knee, current 06/06/2018 Added automatically from [employer] for surgery [id number] PONV (postoperative nausea a nd vomiting) Anxiety [...] drink = 0.6 oz pur e alcohol) [facility] Utilities Answer Date Recorded In the past 12 months has [employer], [employer], oil, or water [employer] threatened to shut off services in your [...] often do you attend chur ch or orthodox services? Never 09/30/2024 Do you belong to any clubs o r organizations such as adventist groups, unions, fraternal or athletic groups, or [...] any time in the past 12 m [facility], were you homeless or living in a chcf (including now)? No 10/02/2024 Personal Safety Answer Date Recorded Have you ever been in or are you currently in a harmful physical or emotional relationship or is someone making you feel afraid or unsafe? 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 Gender Identity Not on file Sexual Orientation Not on file Obstetrics History Last Filed Vital Signs Vital Sign Reading Time Taken Comments Blood Pressure 112/48 11/11/2024 10:57 AM CDT Pulse 84 11/11/2024 10:57 AM CDT Temperature 36 C (96.8 F) 11/11/2024 10:57 AM CDT Respiratory Rate 18 11/11/2024 10:57 AM CDT Oxygen Saturation 100% 11/11/2024 10:56 AM CDT Inhaled Oxygen Concentration - - Weight 64.1 kg (141 lb 6.4 oz) 11/11/2024 10:57 AM CDT Height 152.4 cm (5') 11/11/2024 10:57 AM CDT Body Mass Index 27.62 11/11/2024 10:57 AM CDT Plan of Treatment Health Maintenance [...] 10/02, 04/03/2016 Medical Devices Implanted Type Area Assistant Professor Of Anthropology Device Identifier Shelf Expiration Date Model / Serial / Lot Filmaka Powerport Mri Airguard 8fr 1 Lumen Attachable Catheter Latex Free [id number] - [id number] Implanted:Qty: 1 on 11/20/2023 by Shade Red MD at [facility] Right: Chest Emre Chaparrita 09/30/2024 [id number] / / [id number] Procedures Procedure Name Priority Date/Time Associated Diagnosis Comments ANTIBODY SCREEN Routine 11/11/2024 11:30 AM CDT MDS (myelodysplastic syndrome) (HCC) ABO/RH Routine 11/11/2024 11:30 AM CDT MDS [...] CDT MDS (myelodysplastic syndrome) (HCC) Chronic anemia DIFFERENTIAL AUTO Routine 10/21/2024 8:2 5 AM [...] 9:45 AM CDT MDS (myelodysplastic syndrome) (HCC) from Last 3 Months Results * ABO/Rh (11/11/2024 11:30 AM CDT) ABO/Rh O Positive Comment:Testing performed by : [place], [address] Blood 11/11/2024 11:3 0 AM CDT 11/11/2024 11:53 AM CDT Narrative [facility] - 11/11/2024 12:32 PM CDT Has the patient had Daratumumab or Isatuximab in the past 6 months?->Unknown us Chalino Chapa MD LAB BLOOD BANK TEST ORDER LAITH Final Result [facility] 1 [facility] [place] [address] * Antibody screen (11/11/2024 11:30 AM CDT) Rivera, indirect, Gel Interpretation Negative ABSC Comment:Testing performed by : [place], [address] Blood 11/11/2024 11:3 0 AM CDT 11/11/2024 11:53 AM CDT Narrative [facility] - 11/11/2024 12:32 PM CDT Has the patient had Daratumumab or Isatuximab in the past 6 months?->Unknown Chalino Chapa MD LAB BLOOD BANK TEST ORDER LAITH Final Result [facility] 1 [facility] [place] [address] * (ABNORMAL) Folate (11/11/2024 11:30 AM CDT) Folic acid 3.5(L) >=5.0 ng/mL [facility] ([place]) Blood 11/11/2024 11:3 0 AM CDT 11/11/2024 11:53 AM CDT Chalino Chapa MD LAB BLOOD ORDERABLES Aylin l Result Performing Organization Address [facility] Co de Phone Number [facility] ([place] 1 [facility] [place] [address] * Vitamin B12 (11/11/2024 11:30 AM CDT) Pathologist [facility] Vitamin B12 1,022 230 - 1,250 pg/mL [facility] ([place]) Blood 11/11/2024 11:3 0 AM CDT 11/11/2024 11:53 AM CDT Chalino Chapa MD LAB BLOOD ORDERABLES Aylin l Result Performing Organization Address City/[facility] Co de Phone Number [facility] ([place] 1 [facility] [place] [address] * (ABNORMAL) Differential, auto (11/11/2024 10:45 AM CDT) Neutrophil abs 1.08(L) 1.50 - 6.50 K/cumm [facility] ([place]) Comment:Testing performed by : [facility] [place], [address] [facility] , Medical Office [address], [place] [address] Imm gran abs 0.02 0.00 - 0.10 K/cumm [facility] ([place]) Comment:Testing performed by : [facility] [address], Medical Office [address], [place] [address] Lymphocyte abs 0.55(L) 0.80 - 3.30 K/cumm [facility] ([place]) Comment:Testing performed by : [facility] [address], Medical Office [address], [place] [address] Monocyte abs 0.17(L) 0.20 - 0.80 K/cumm [facility] ([place]) Comment:Testing performed by : [facility] [address], Medical Office [address], [place] [address] Eosinophil abs 0.04 0.00 - 0.50 K/cumm [facility] ([place]) Comment:Testing performed by : [facility] [address], Medical Office [facility] [address], [place] [address] Basophil abs 0.01 0.00 - 0.10 K/cumm [facility] ([place]) Comment:Testing performed by : [facility] [address], Medical Office [facility] [address], [place] [address] Neutrophil pct 57.8 % [facility] ([place]) Comment: Interpretive Data Percent cell count reference ranges are not reported, since discordance with absolute values may lead to misinterpretation of CBC data. Current Interpretive Data was last revised on 2022. Testing performed by: [facility] [address], Medical Office [facility] [address], [place] [address] Imm gran pct 1.1 % [facility] ([place]) Comment: Interpretive Data Percent cell count reference ranges are not reported, since discordance with absolute values may lead to misinterpretation of CBC data. Current Interpretive Data was last revised on 2022. Testing performed by: [facility] [address], Medical Office [address], [place] [address] Lymphocyte pct 29.4 % [facility] ([place]) Comment: Interpretive Data Percent cell count reference ranges are not reported, since discordance with absolute values may lead to misinterpretation of CBC data. Current Interpretive Data was last revised on 2022. Testing performed by: [facility] [address], Medical Office [facility] [address], [place] [address] Monocyte pct 9.1 % [facility] ([place]) Comment: Interpretive Data Percent cell count reference ranges are not reported, since discordance with absolute values may lead to misinterpretation of CBC data. Current Interpretive Data was last revised on 2022. Testing performed by: [facility] [address], Medical Office [facility] [address], [place] [address] Eosinophil pct 2.1 % [facility] ([place]) Comment: Interpretive Data Percent cell count reference ranges are not reported, since discordance with absolute values may lead to misinterpretation of CBC data. Current Interpretive Data was last revised on 2022. Testing performed by: [facility] [address], Medical Office [facility] [address], [place] [address] Basophil pct 0.5 % [facility] ([place]) Comment: Interpretive Data Percent cell count reference ranges are not reported, since discordance with absolute values may lead to misinterpretation of CBC data. Current Interpretive Data was last revised on 2022. Testing performed by: [facility] [address], Medical Office [facility] [address], [place] [address] Blood 11/11/2024 10:4 5 AM CDT 11/11/2024 11:00 AM CDT us Milla Armenta EQUITY STRUCTURER LAB BLOOD ORDERABLES Final Result [facility] ([place]) 1 [facility] [place] [address] * (ABNORMAL) CBC with auto differential (11/11/2024 10:45 AM CDT) WBC 1.87(L) 3.80 - 9.90 K/cumm [facility] ([place]) Comment:Testing performed by : [facility] [address], Medical Office [facility] [address], [place] [address] Hgb 7.2(L) 11.9 - 15.5 g/dL [facility] ([place]) Comment:Testing performed by : [facility] [address], Medical Office [address], [place] [address] Hct 22.5(L) 35.6 - 45.5 % [facility] ([place]) Comment:Testing performed by : [facility] [address], Medical Office [address], [place] [address] Plt 111(L) 150 - 400 K/cumm [facility] ([place]) Comment:Testing performed by : [facility] [address], Medical Office [facility] [address], [place] [address] MPV 11.0 9.1 - 12.3 fL [facility] ([place]) Comment:Testing performed by : [facility] [address], Medical Office [facility] [address], [place] [address] RBC 2.03(L) 3.90 - 5.20 M/cumm [facility] ([place]) Comment:Testing performed by : [facility] [address], Medical Office [facility] [address], [place] [address] MCV 110.8(H) 81.3 - 96.4 fL [facility] ([place]) Comment:Testing performed by : [facility] [address], Medical Office [facility] [address], [place] [address] MCH 35.5(H) 27.1 - 33.3 pg [facility] ([place]) Comment:Testing performed by : [facility] [address], Medical Office [facility] [address], [place] [address] MCHC 32.0(L) 32.3 - 35.7 g/dL [facility] ([place]) Comment:Testing performed by : [facility] [address], Medical Office [facility] [address], [place] [address] RDW CV 26.2(H) 11.1 - 14.9 % [facility] ([place]) Comment:Testing performed by : [facility] [address], Medical Office [facility] [address], [place] [address] RDW SD 96.8(H) 35.7 - 48.1 fL [facility] ([place]) Comment:Testing performed by : [facility] [address], Medical Office [address], [place] [address] Blood 11/11/2024 10:4 5 AM CDT 11/11/2024 11:00 AM CDT us Milla Armenta NP LAB BLOOD ORDERABLES Final Result [facility] ([place]) 1 [facility] Department [place] [address] * eGFR (11/11/2024 8:11 AM CDT) eGFR [...] was last reviewed 2021. Testing performed by: [facility], [facility], [place], [address] Blood 11/11/2024 8:11 AM CDT 11/11/2024 11:14 AM CDT us Chalino Chapa MD LAB BLOOD ORDERABLES Aylin l Result [facility] ([place]) 1 [facility] [place] [address] * (ABNORMAL) Comprehensive metabolic panel (11/11/2024 8:11 [...] BLOOD ORDERABLES Aylin freedman Result [facility] ([place]) [address] Department [place] [address] * eGFR (10/21/2024 8:25 AM CDT) eGFR [...] was last reviewed 2021. Testing performed by: [place], [address] Blood 10/21/2024 8:25 AM CDT 10/21/2024 8:36 AM CDT us Chalino Chapa MD LAB BLOOD ORDERABLES Aylin l Result [facility] ([place]) 1 [facility] [place] [address] * (ABNORMAL) Differential, auto (10/21/2024 8:25 AM CDT) Pathologist [facility] Neutrophil abs 0.69(L) 1.50 - 6.50 K/cumm Comment:Testing performed by : [place], [address] Imm gran abs 0.01 0.00 - 0.10 K/cumm [facility] ([place]) Comment:Testing performed by : [place], [address] Lymphocyte abs 0.68(L) 0.80 - 3.30 K/cumm [facility] ([place]) Comment:Testing performed by : [facility], [facility], [place], [address] Monocyte abs 0.16(L) 0.20 - 0.80 K/cumm [facility] ([place]) Comment:Testing performed by : [facility], [facility], [place], [address] Eosinophil abs 0.00 0.00 - 0.50 K/cumm [facility] ([place]) Comment:Testing performed by : [facility], [facility], [place], [address] Basophil abs 0.00 0.00 - 0.10 K/cumm [facility] ([place]) Comment:Testing performed by : [place], [address] Neutrophil pct 44.8 % [facility] ([place]) Comment: Interpretive Data Percent cell count reference ranges are not reported, since discordance with absolute values may lead to misinterpretation of CBC data. Current Interpretive Data was last revised on 2017. Testing performed by: [facility], [place], [address] Imm gran pct 0.6 % [facility] ([place]) Comment: Interpretive Data Percent cell count reference ranges are not reported, since discordance with absolute values may lead to misinterpretation of CBC data. Current Interpretive Data was last revised on 2017. Testing performed by: [place], [address] Lymphocyte pct 44.2 % [facility] ([place]) Comment: Interpretive Data Percent cell count reference ranges are not reported, since discordance with absolute values may lead to misinterpretation of CBC data. Current Interpretive Data was last revised on 2017. Testing performed by: [place], [address] Monocyte pct 10.4 % [facility] ([place]) Comment: Interpretive Data Percent cell count reference ranges are not reported, since discordance with absolute values may lead to misinterpretation of CBC data. Current Interpretive Data was last revised on 2017. Testing performed by: [place], [address] Eosinophil pct 0.0 % [facility] ([place]) Comment: Interpretive Data Percent cell count reference ranges are not reported, since discordance with absolute values may lead to misinterpretation of CBC data. Current Interpretive Data was last revised on 2017. Testing performed by: [place], [address] Basophil pct 0.0 % [facility] ([place]) Comment: Interpretive Data Percent cell count reference ranges are not reported, since discordance with absolute values may lead to misinterpretation of CBC data. Current Interpretive Data was last revised on 2017. Testing performed by: [facility], [place], [address] Blood 10/21/2024 8:25 AM CDT 10/21/2024 9:43 AM CDT us Chalino Chapa MD LAB BLOOD ORDERABLES Aylin freedman Result [facility] ([place]) [address] [place] [address] Department [place] [address] * (ABNORMAL) CBC with auto differential (10/21/2024 8:25 AM CDT) WBC 1.54(L) 3.80 - 9.90 K/cumm Comment:Testing performed by : [place], [address] Hgb 8.5(L) 11.9 - 15.5 g/dL [facility] ([place]) Comment:Testing performed by : [place], [address] Hct 26.5(L) 35.6 - 45.5 % [facility] ([place]) Comment:Testing performed by : [place], [address] Plt 153 150 - 400 K/cumm [facility] ([place]) Comment:Testing performed by : [facility], [place], [address] MPV 11.8 9.1 - 12.3 fL [facility] ([place]) Comment:Testing performed by : [facility], [place], [address] RBC 2.67(L) 3.90 - 5.20 M/cumm [facility] ([place]) Comment:Testing performed by : [facility], [place], [address] MCV 99.3(H) 81.3 - 96.4 fL [facility] ([place]) Comment:Testing performed by : [facility], [place], [place], MCH 31.8 27.1 - 33.3 pg [facility] ([place]) Comment:Testing performed by : [facility], [place], [address] MCHC 32.1(L) 32.3 - 35.7 g/dL [facility] ([place]) Comment:Testing performed by : [facility], [place], [address] RDW CV 16.9(H) 11.1 - 14.9 % [facility] ([place]) Comment:Testing performed by : [place], [address] RDW SD 52.5(H) 35.7 - 48.1 fL [facility] ([place]) Comment:Testing performed by : [facility], [place], [address] NRBC abs 0.00 0.00 - 0.01 K/cumm [facility] ([place]) Comment:Testing performed by : [facility], [place], [address] Morphologic Screen Results confirmed by manual morphology review. [facility] ([place]) Comment:Testing performed by : [facility], [place], [address] Blood 10/21/2024 8:25 AM CDT 10/21/2024 9:43 AM CDT us Chalino Chapa MD LAB BLOOD ORDERABLES Aylin freedman Result [facility] Department [place] [address] * (ABNORMAL) Comprehensive metabolic panel (10/21/2024 8:25 AM CDT) Sodium 139 135 - 145 mmol/L [facility] ([place]) Potassium, pl 4.2 3.3 - 4.9 mmol/L [...] MD LAB BLOOD ORDERABLES Aylin freedman Result [facility] ([place]) 1 [facility] Department [place] [address] * Transfuse RBC (10/17/2024 2:54 PM CDT) Blood us Chalino Chapa MD BLOOD TRANSFUSION ORDERAB LES Final Result * Prepare RBC (10/17/2024 12:24 PM CDT) Unit Number [id number] Product code [id number] [facility] ([place]) Blood Expiration Date [facility] ([place]) Product Blood Type (for scanning) 5100 [facility] ([place]) Product Blood Type OPOS [facility] ([place]) Dispense Status DISPENSED [facility] ([place]) us Chalino Chapa MD BLOOD BANK PRODUCT ORDERA BLES Final Result [facility] ([place]) [address] [place] [address] [place] [address] * Prepare RBC: 1 Units (10/17/2024 12:19 PM CDT) Units requested 1 Comment:Testing performed by : [place], [address] Units requested Ready [facility] ([place]) Comment:Testing performed by : [place], [address] Blood 10/17/2024 12:1 9 PM CDT 10/17/2024 12:19 PM CDT Narrative [facility] ([place]) - 10/17/2024 12:19 PM CDT Are special requirements needed? (All products are leukoreduced and CMV- safe)->No us Chalino Chapa MD BLOOD BANK PRODUCT ORDERA BLES Final Result [facility] ([place]) [address] [place] [address] [place] [address] * eGFR (10/17/2024 11:10 AM CDT) eGFR [...] was last reviewed 2021. Testing performed by: [place], [address] Blood 10/17/2024 11:1 0 AM CDT 10/17/2024 11:34 AM CDT us Chalino Chapa MD LAB BLOOD ORDERABLES Aylin l Result [facility] ([place]) 1 [facility] Department [place] [address] * (ABNORMAL) Differential, auto (10/17/2024 11:10 AM CDT) Neutrophil abs 0.64(L) 1.50 - 6.50 K/cumm Comment:Testing performed by : [place], [address] Imm gran abs 0.01 0.00 - 0.10 K/cumm [facility] ([place]) Comment:Testing performed by : [place], [address] Lymphocyte abs 0.84 0.80 - 3.30 K/cumm [facility] ([place]) Comment:Testing performed by : [place], [address] Monocyte abs 0.20 0.20 - 0.80 K/cumm [facility] ([place]) Comment:Testing performed by : [facility], [facility], [place], [address] Eosinophil abs 0.00 0.00 - 0.50 K/cumm [facility] ([place]) Comment:Testing performed by : [facility], [facility], [place], [address] Basophil abs 0.00 0.00 - 0.10 K/cumm [facility] ([place]) Comment:Testing performed by : [place], [address] Neutrophil pct 37.9 % [facility] ([place]) Comment: Interpretive Data Percent cell count reference ranges are not reported, since discordance with absolute values may lead to misinterpretation of CBC data. Current Interpretive Data was last revised on 2017. Testing performed by: [place], [address] Imm gran pct 0.6 % [facility] ([place]) Comment: Interpretive Data Percent cell count reference ranges are not reported, since discordance with absolute values may lead to misinterpretation of CBC data. Current Interpretive Data was last revised on 2017. Testing performed by: [place], [address] Lymphocyte pct 49.7 % [facility] ([place]) Comment: Interpretive Data Percent cell count reference ranges are not reported, since discordance with absolute values may lead to misinterpretation of CBC data. Current Interpretive Data was last revised on 2017. Testing performed by: [place], [address] Monocyte pct 11.8 % [facility] ([place]) Comment: Interpretive Data Percent cell count reference ranges are not reported, since discordance with absolute values may lead to misinterpretation of CBC data. Current Interpretive Data was last revised on 2017. Testing performed by: [place], [address] Eosinophil pct 0.0 % [facility] ([place]) Comment: Interpretive Data Percent cell count reference ranges are not reported, since discordance with absolute values may lead to misinterpretation of CBC data. Current Interpretive Data was last revised on 2017. Testing performed by: [place], [address] Basophil pct 0.0 % [facility] ([place]) Comment: Interpretive Data Percent cell count reference ranges are not reported, since discordance with absolute values may lead to misinterpretation of CBC data. Current Interpretive Data was last revised on 2017. Testing performed by: [facility], [place], [address] Blood 10/17/2024 11:1 0 AM CDT 10/17/2024 12:21 PM CDT us Chalino Chapa MD LAB BLOOD ORDERABLES Aylin freedman Result [facility] ([place]) [address] [place] [address] Department [place] [address] * (ABNORMAL) CBC with auto differential (10/17/2024 11:10 AM CDT) WBC 1.69(L) 3.80 - 9.90 K/cumm Comment:Testing performed by : [place], [address] Hgb 7.3(L) 11.9 - 15.5 g/dL [facility] ([place]) Comment:Testing performed by : [place], [address] Hct 22.8(L) 35.6 - 45.5 % [facility] ([place]) Comment:Testing performed by : [place], [address] Plt 144(L) 150 - 400 K/cumm [facility] ([place]) Comment:Testing performed by : [place], [address] MPV 12.0 9.1 - 12.3 fL [facility] ([place]) Comment:Testing performed by : [place], [address] RBC 2.29(L) 3.90 - 5.20 M/cumm [facility] ([place]) Comment:Testing performed by : [place], [address] MCV 99.6(H) 81.3 - 96.4 fL [facility] ([place]) Comment:Testing performed by : [facility], [facility], [place], [address] MCH 31.9 27.1 - 33.3 pg [facility] ([place]) Comment:Testing performed by : [facility], [facility], [place], [address] MCHC 32.0(L) 32.3 - 35.7 g/dL [facility] ([place]) Comment:Testing performed by : [facility], [facility], [place], [address] RDW CV 16.2(H) 11.1 - 14.9 % [facility] ([place]) Comment:Testing performed by : [facility], [facility], [place], [address] RDW SD 53.1(H) 35.7 - 48.1 fL [facility] ([place]) Comment:Testing performed by : [facility], [facility], [place], [address] NRBC abs 0.00 0.00 - 0.01 K/cumm [facility] ([place]) Comment:Testing performed by : [facility], [facility], [place], [address] Morphologic Screen Results confirmed by manual morphology review. [facility] ([place]) Comment:Testing performed by : [facility], [place], [address] Blood 10/17/2024 11:1 0 AM CDT 10/17/2024 12:21 PM CDT us Chalino Chapa MD LAB BLOOD ORDERABLES Edit ed Result - Final [facility] ([place]) [address] [place] [address] Department [place] [address] * ABO/Rh (10/17/2024 11:10 AM CDT) ABO/Rh O Positive Comment:Testing performed by : [facility], [facility], [place], [address] Blood 10/17/2024 11:1 0 AM CDT 10/17/2024 11:43 AM CDT Narrative [facility] ([place]) - 10/17/2024 12:17 PM CDT Has the patient had Daratumumab or Isatuximab in the past 6 months?->Unknown Witness: Ynes Jensen IFS us Chalino Chapa MD LAB BLOOD BANK TEST ORDER LAITH Final Result Performing Organization Address City/[facility]/ZIP Co de Phone Number [facility] ([place]) 1 [facility] [place] [address] * Crossmatch (10/17/2024 11:10 AM CDT) [facility] Crossmatch Compatible [facility] ([place]) Unit number for crossmatch [id number] [facility] ([place]) Blood 10/17/2024 11:1 0 AM CDT 10/17/2024 11:43 AM CDT us Chalino Chapa MD LAB BLOOD BANK TEST ORDER LAITH Final Result Performing Organization Address [facility] Co de Phone Number [facility] ([place]) [address] [place] [address] [place] [address] * Antibody screen (10/17/2024 11:10 AM CDT) [facility] Rivera, indirect, Gel Interpretation Negative ABSC Comment:Testing performed by : [facility], [facility], [place], [address] Blood 10/17/2024 11:1 0 AM CDT 10/17/2024 11:43 AM CDT Narrative [facility] ([place]) - 10/17/2024 12:17 PM CDT Has the patient had Daratumumab or Isatuximab in the past 6 months?->Unknown Chalino Chapa MD LAB BLOOD BANK TEST ORDER LAITH Final Result Performing Organization Address City/[facility] Co de Phone Number [facility] ([place]) 1 [facility] [place] [address] * (ABNORMAL) Comprehensive metabolic panel (10/17/2024 11:10 [...] MD LAB BLOOD ORDERABLES Aylin freedman Result [facility] ([place]) 1 [facility] Department [place] [address] * (ABNORMAL) Differential, auto (10/14/2024 9:17 AM CDT) Neutrophil abs 0.51(L) 1.50 - 6.50 K/cumm Comment:Testing performed by : [place], [address] Imm gran abs 0.02 0.00 - 0.10 K/cumm [facility] ([place]) Comment:Testing performed by : [facility], [place], [address] Lymphocyte abs 0.81 0.80 - 3.30 K/cumm [facility] ([place]) Comment:Testing performed by : [place], [address] Monocyte abs 0.13(L) 0.20 - 0.80 K/cumm [facility] ([place]) Comment:Testing performed by : [place], [address] Eosinophil abs 0.00 0.00 - 0.50 K/cumm [facility] ([place]) Comment:Testing performed by : [place], [address] Basophil abs 0.01 0.00 - 0.10 K/cumm [facility] ([place]) Comment:Testing performed by : [place], [address] Neutrophil pct 34.4 % [facility] ([place]) Comment: Interpretive Data Percent cell count reference ranges are not reported, since discordance with absolute values may lead to misinterpretation of CBC data. Current Interpretive Data was last revised on 2017. Testing performed by: [place], [address] Imm gran pct 1.4 % [facility] ([place]) Comment: Interpretive Data Percent cell count reference ranges are not reported, since discordance with absolute values may lead to misinterpretation of CBC data. Current Interpretive Data was last revised on 2017. Testing performed by: [facility], [place], [address] Lymphocyte pct 54.7 % [facility] ([place]) Comment: Interpretive Data Percent cell count reference ranges are not reported, since discordance with absolute values may lead to misinterpretation of CBC data. Current Interpretive Data was last revised on 2017. Testing performed by: [facility], [facility], [place], [address] Monocyte pct 8.8 % [facility] ([place]) Comment: Interpretive Data Percent cell count reference ranges are not reported, since discordance with absolute values may lead to misinterpretation of CBC data. Current Interpretive Data was last revised on 2017. Testing performed by: [place], [address] Eosinophil pct 0.0 % [facility] ([place]) Comment: Interpretive Data Percent cell count reference ranges are not reported, since discordance with absolute values may lead to misinterpretation of CBC data. Current Interpretive Data was last revised on 2017. Testing performed by: [facility], [place], [address] Basophil pct 0.7 % [facility] ([place]) Comment: Interpretive Data Percent cell count reference ranges are not reported, since discordance with absolute values may lead to misinterpretation of CBC data. Current Interpretive Data was last revised on 2017. Testing performed by: [facility], [place], [address] Blood 10/14/2024 9:17 AM CDT 10/14/2024 9:17 AM CDT us Chalino Chapa MD LAB BLOOD ORDERABLES Aylin freedman Result [facility] ([place]) [address] [place] [address] Department [place] [address] * (ABNORMAL) CBC with auto differential (10/14/2024 9:17 AM CDT) WBC 1.48(L) 3.80 - 9.90 K/cumm Comment:Testing performed by : [facility], [place], [address] Hgb 7.8(L) 11.9 - 15.5 g/dL [facility] ([place]) Comment:Testing performed by : [facility], [place], [address] Hct 24.6(L) 35.6 - 45.5 % [facility] ([place]) Comment:Testing performed by : [place], [place], Plt 142(L) 150 - 400 K/cumm [facility] ([place]) Comment:Testing performed by : [place], MPV 12.2 9.1 - 12.3 fL [facility] ([place]) Comment:Testing performed by : [place], RBC 2.54(L) 3.90 - 5.20 M/cumm [facility] ([place]) Comment:Testing performed by : [place], MCV 96.9(H) 81.3 - 96.4 fL [facility] ([place]) Comment:Testing performed by : [place], MCH 30.7 27.1 - 33.3 pg [facility] ([place]) Comment:Testing performed by : [place], MCHC 31.7(L) 32.3 - 35.7 g/dL [facility] ([place]) Comment:Testing performed by : [place], RDW CV 15.6(H) 11.1 - 14.9 % [facility] ([place]) Comment:Testing performed by : [place], RDW SD 53.3(H) 35.7 - 48.1 fL [facility] ([place]) Comment:Testing performed by : [place], NRBC abs 0.00 0.00 - 0.01 K/cumm [facility] ([place]) Comment:Testing performed by : [place], [address] Blood 10/14/2024 9:17 AM CDT 10/14/2024 9:17 AM CDT us Chalino Chapa MD LAB BLOOD ORDERABLES Aylin l Result Performing Organization Address [facility] Co de Phone Number [facility] ([place]) 1 [facility] Department [place] [address] * eGFR (10/14/2024 8:00 AM CDT) eGFR [...] was last reviewed 2021. Testing performed by: [place], [address] Blood 10/14/2024 8:00 AM CDT 10/14/2024 1:44 PM CDT us Chalino Chapa MD LAB BLOOD ORDERABLES Aylin l Result Performing Organization Address City/[facility]/ZIP Co de Phone Number [facility] ([place]) 1 [facility] Department [place] [address] * (ABNORMAL) Comprehensive metabolic panel (10/14/2024 8:00 AM CDT) Sodium 138 135 - 145 mmol/L Comment:Testing performed by : [place], [address] Potassium, pl 4.4 3.3 - 4.9 mmol/L [facility] ([place]) Comment:Testing performed by : [place], [address] Chloride 99 97 - 110 mmol/L [facility] ([place]) Comment:Testing performed by : [facility], [facility], [place], [address] CO2 27 22 - 32 mmol/L [facility] ([place]) Comment:Testing performed by : [facility], [place], [address] Anion gap 12 2 - 15 mmol/L [facility] ([place]) Comment:Testing performed by : [facility], [place], [address] BUN 10 6 - 25 mg/dL [facility] ([place]) Comment:Testing performed by : [facility], [place], [address] Creatinine 0.58(L) 0.60 - 1.10 mg/dL [facility] ([place]) Comment:Testing performed by : [facility], [place], [address] Glucose 135 70 - 199 mg/dL [facility] ([place]) Comment: Interpretive Data Fasting glucose >/= 126 [...] performed by: [facility], [place], [address] Calcium 9.2 8.5 - 10.3 mg/dL [facility] ([place]) Comment:Testing performed by : [facility], [place], [address] Bilirubin, total 0.6 0.1 - 1.2 mg/dL [facility] ([place]) Comment:Testing performed by : [facility], [place], [address] Protein, pl 7.3 6.5 - 8.5 g/dL [facility] ([place]) Comment:Testing performed by : [facility], [place], [address] Albumin 3.9 3.5 - 5.0 g/dL [facility] ([place]) Comment:Testing performed by : [place], [address] Alk phos 47 40 - 130 Units/L [facility] ([place]) Comment:Testing performed by : [facility], [place], [address] ALT 46(H) 7 - 45 Units/L [facility] ([place]) Comment:Testing performed by : [facility], [place], [address] AST 29 10 - 45 Units/L [facility] ([place]) Comment:Testing performed by : [facility], [place], [address] Blood 10/14/2024 8:00 AM CDT 10/14/2024 1:44 PM CDT us Chalino Chapa MD LAB BLOOD ORDERABLES Aylin freedman Result [facility] ([place]) [address] [place] [address] Department [place] [address] * eGFR (10/11/2024 11:50 AM CDT) eGFR [...] was last reviewed 2021. Testing performed by: [place], [address] Blood 10/11/2024 11:5 0 AM CDT 10/11/2024 2:14 PM CDT us Milla Armenta NP LAB BLOOD ORDERABLES Final Result [facility] ([place]) 1 [facility] Department [place] [address] * (ABNORMAL) Differential, auto (10/11/2024 11:50 AM CDT) Neutrophil abs 0.43(C) 1.50 - 6.50 K/cumm Comment: This result has been called to Evie Brink RN by [id number] on 10/11/2024 13:11:00, and has been read back. Testing performed by: [facility], [place], [address] Imm gran abs 0.01 0.00 - 0.10 K/cumm [facility] ([place]) Comment:Testing performed by : [facility], [place], [address] Lymphocyte abs 0.73(L) 0.80 - 3.30 K/cumm [facility] ([place]) Comment:Testing performed by : [place], [address] Monocyte abs 0.07(L) 0.20 - 0.80 K/cumm [facility] ([place]) Comment:Testing performed by : [facility], [place], [address] Eosinophil abs 0.00 0.00 - 0.50 K/cumm [facility] ([place]) Comment:Testing performed by : [facility], [place], [address] Basophil abs 0.00 0.00 - 0.10 K/cumm [facility] ([place]) Comment:Testing performed by : [place], [address] Neutrophil pct 34.7 % [facility] ([place]) Comment: Interpretive Data Percent cell count reference ranges are not reported, since discordance with absolute values may lead to misinterpretation of CBC data. Current Interpretive Data was last revised on 2017. Testing performed by: [facility], [place], [address] Imm gran pct 0.8 % [facility] ([place]) Comment: Interpretive Data Percent cell count reference ranges are not reported, since discordance with absolute values may lead to misinterpretation of CBC data. Current Interpretive Data was last revised on 2017. Testing performed by: [place], [address] Lymphocyte pct 58.9 % [facility] ([place]) Comment: Interpretive Data Percent cell count reference ranges are not reported, since discordance with absolute values may lead to misinterpretation of CBC data. Current Interpretive Data was last revised on 2017. Testing performed by: [place], [address] Monocyte pct 5.6 % [facility] ([place]) Comment: Interpretive Data Percent cell count reference ranges are not reported, since discordance with absolute values may lead to misinterpretation of CBC data. Current Interpretive Data was last revised on 2017. Testing performed by: [place], [address] Eosinophil pct 0.0 % [facility] ([place]) Comment: Interpretive Data Percent cell count reference ranges are not reported, since discordance with absolute values may lead to misinterpretation of CBC data. Current Interpretive Data was last revised on 2017. Testing performed by: [place], [address] Basophil pct 0.0 % [facility] ([place]) Comment: Interpretive Data Percent cell count reference ranges are not reported, since discordance with absolute values may lead to misinterpretation of CBC data. Current Interpretive Data was last revised on 2017. Testing performed by: [place], [address] Blood 10/11/2024 11:5 0 AM CDT 10/11/2024 12:18 PM CDT us Chalino Chapa MD LAB BLOOD ORDERABLES Aylin freedman Result [facility] ([place]) [address] [place] [address] Department [place] [address] * (ABNORMAL) CBC with auto differential (10/11/2024 11:50 AM CDT) WBC 1.24(L) 3.80 - 9.90 K/cumm Comment:Testing performed by : [place], [address] Hgb 7.7(L) 11.9 - 15.5 g/dL [facility] ([place]) Comment:Testing performed by : [place], [address] Hct 23.9(L) 35.6 - 45.5 % [facility] ([place]) Comment:Testing performed by : [place], [address] Plt 157 150 - 400 K/cumm [facility] ([place]) Comment:Testing performed by : [place], [address] MPV 11.6 9.1 - 12.3 fL [facility] ([place]) Comment:Testing performed by : [place], [address] RBC 2.43(L) 3.90 - 5.20 M/cumm [facility] ([place]) Comment:Testing performed by : [place], [address] MCV 98.4(H) 81.3 - 96.4 fL [facility] ([place]) Comment:Testing performed by : [place], [address] MCH 31.7 27.1 - 33.3 pg [facility] ([place]) Comment:Testing performed by : [place], [address] MCHC 32.2(L) 32.3 - 35.7 g/dL [facility] ([place]) Comment:Testing performed by : [place], [address] RDW CV 15.1(H) 11.1 - 14.9 % [facility] ([place]) Comment:Testing performed by : [place], [address] RDW SD 53.4(H) 35.7 - 48.1 fL [facility] ([place]) Comment:Testing performed by : [facility], [place], [address] NRBC abs 0.00 0.00 - 0.01 K/cumm [facility] ([place]) Comment:Testing performed by : [facility], [place], [address] Morphologic Screen Results confirmed by manual morphology review. [facility] ([place]) Comment:Testing performed by : [facility], [place], [address] Blood 10/11/2024 11:5 0 AM CDT 10/11/2024 12:18 PM CDT us Chalino Chapa MD LAB BLOOD ORDERABLES Aylin freedman Result [facility] 1 [facility] Department [place] [address] * (ABNORMAL) Comprehensive metabolic panel (10/11/2024 11:50 AM CDT) Sodium 140 135 - 145 mmol/L Comment:Testing performed by : [facility], [place], [address] Potassium, pl 3.9 3.3 - 4.9 mmol/L [facility] ([place]) Comment:Testing performed by : [facility], [place], [address] Chloride 100 97 - 110 mmol/L [facility] ([place]) Comment:Testing performed by : [facility], [place], [address] CO2 27 22 - 32 mmol/L [facility] ([place]) Comment:Testing performed by : [facility], [place], [address] Anion gap 13 2 - 15 mmol/L [facility] ([place]) Comment:Testing performed by : [facility], [place], [address] BUN 10 6 - 25 mg/dL [facility] ([place]) Comment:Testing performed by : [facility], [place], [address] Creatinine 0.54(L) 0.60 - 1.10 mg/dL [facility] ([place]) Comment:Testing performed by : [facility], [place], [address] Glucose 120 70 - 199 mg/dL [facility] ([place]) [...] performed by: [facility], [place], [address] Calcium 8.8 8.5 - 10.3 mg/dL [facility] ([place]) Comment:Testing performed by : [place], [address] Bilirubin, total 0.5 0.1 - 1.2 mg/dL [facility] ([place]) Comment:Testing performed by : [facility], [place], [address] Protein, pl 6.9 6.5 - 8.5 g/dL [facility] ([place]) Comment:Testing performed by : [facility], [place], [address] Albumin 3.7 3.5 - 5.0 g/dL [facility] ([place]) Comment:Testing performed by : [place], [address] Alk phos 38(L) 40 - 130 Units/L [facility] ([place]) Comment:Testing performed by : [facility], [place], [address] ALT 40 7 - 45 Units/L [facility] ([place]) Comment:Testing performed by : [facility], [place], [address] AST 23 10 - 45 Units/L [facility] ([place]) Comment:Testing performed by : [facility], [place], [address] Blood 10/11/2024 11:5 0 AM CDT 10/11/2024 2:14 PM CDT us Milla Armenta NP LAB BLOOD ORDERABLES Final Result Performing Organization Address City/[facility]/ZIP Co de Phone Number [facility] ROG[facility] ([place]) 1 [facility] [place] [address] * eGFR (10/07/2024 5:29 AM CDT) Pathologist [facility] eGFR >90 >=60 mL/min/1. 73 m2 [...] was last reviewed 2021. Testing performed by: [facility], [address] [place] [address]., [address] Blood 10/07/2024 5:29 AM CDT 10/07/2024 5:46 AM CDT us Laurel Desir MD LAB BLOOD ORDERABLES Final Res ult [facility] 7621 [facility] [place] [address] * (ABNORMAL) Differential, auto (10/07/2024 5:29 AM CDT) Neutrophil abs 0.13(C) 1.50 - 6.50 K/cumm Comment: Critical value called within last 72 hrs Testing performed by: [address] [address] Imm gran abs 0.00 0.00 - 0.10 K/cumm [facility] Comment:Testing performed by : [address], [place]., [address] Lymphocyte abs 0.49(L) 0.80 - 3.30 K/cumm [facility] Comment:Testing performed by : [address] [address] Monocyte abs 0.02(L) 0.20 - 0.80 K/cumm [facility] Comment:Testing performed by : [address], [place]., [address] Eosinophil abs 0.00 0.00 - 0.50 K/cumm [facility] Comment:Testing performed by : [address] [address] Basophil abs 0.00 0.00 - 0.10 K/cumm [facility] Comment:Testing performed by : [address] [address] Neutrophil pct 20.3 % [facility] Comment: Differential consistent with previous result. Differential consistent with previous result. Interpretive Data Percent cell count reference ranges are not reported, since discordance with absolute values may lead to misinterpretation of CBC data. Current Interpretive Data was last revised on 2017. Testing performed by: [address] [address] Imm gran pct 0.0 % [facility] Comment: Interpretive Data Percent cell count reference ranges are not reported, since discordance with absolute values may lead to misinterpretation of CBC data. Current Interpretive Data was last revised on 2017. Testing performed by: [address] [address] Lymphocyte pct 76.6 % [facility] Comment: Interpretive Data Percent cell count reference ranges are not reported, since discordance with absolute values may lead to misinterpretation of CBC data. Current Interpretive Data was last revised on 2017. Testing performed by: [address] [address] Monocyte pct 3.1 % [facility] Comment: Interpretive Data Percent cell count reference ranges are not reported, since discordance with absolute values may lead to misinterpretation of CBC data. Current Interpretive Data was last revised on 2017. Testing performed by: [address] [address] Eosinophil pct 0.0 % [facility]RA Comment: Interpretive Data Percent cell count reference ranges are not reported, since discordance with absolute values may lead to misinterpretation of CBC data. Current Interpretive Data was last revised on 2017. Testing performed by: [address] [address] Basophil pct 0.0 % [facility] Comment: Interpretive Data Percent cell count reference ranges are not reported, since discordance with absolute values may lead to misinterpretation of CBC data. Current Interpretive Data was last revised on 2017. Testing performed by: [address] [address] Blood 10/07/2024 5:29 AM CDT 10/07/2024 5:46 AM CDT us Laurel Desir MD LAB BLOOD ORDERABLES Final Res ult [facility] 2058 [facility] [place], [place] [id number] * (ABNORMAL) CBC with auto differential (10/07/2024 5:29 AM CDT) WBC 0.64(C) 3.80 - 9.90 K/cumm Comment: Critical value called within last 72 hrs Testing performed by: [address] [address] Hgb 7.2(L) 11.9 - 15.5 g/dL [facility] Comment:Testing performed by : [address] [address] Hct 21.9(L) 35.6 - 45.5 % [facility] Comment:Testing performed by : [address] [address] Plt 142(L) 150 - 400 K/cumm [facility] Comment:Testing performed by : [address] [address] MPV 10.9 9.1 - 12.3 fL [facility] Comment:Testing performed by : [address] [address] RBC 2.29(L) 3.90 - 5.20 M/cumm [facility] Comment:Testing performed by : [address], [address] MCV 95.6 81.3 - 96.4 fL [facility] Comment:Testing performed by : [address], [address] MCH 31.4 27.1 - 33.3 pg [facility] Comment:Testing performed by : [address], [address] MCHC 32.9 32.3 - 35.7 g/dL [facility] Comment:Testing performed by : [address], [address] RDW CV 14.9 11.1 - 14.9 % [facility] Comment:Testing performed by : [address], [address] RDW SD 51.4(H) 35.7 - 48.1 fL [facility] Comment:Testing performed by : [address] [address] NRBC abs 0.00 0.00 - 0.01 K/cumm [facility] Comment:Testing performed by : [address], [address] Morphologic Screen Results confirmed by manual morphology review. [facility] Comment:Testing performed by : [address], [address] Blood 10/07/2024 5:29 AM CDT 10/07/2024 5:46 AM CDT us Laurel Desir MD LAB BLOOD ORDERABLES Final Res ult [facility] 7624 [facility] [place] [address] * (ABNORMAL) Basic metabolic panel (10/07/2024 5:29 AM CDT) Sodium 142 135 - 145 mmol/L Comment:Testing performed by : [address] [address] Potassium, pl 3.7 3.3 - 4.9 mmol/L [facility]RA Comment:Testing performed by : [address] [address] Chloride 104 97 - 110 mmol/L [facility]RA Comment:Testing performed by : [address] [address] CO2 32 22 - 32 mmol/L [facility] Comment:Testing performed by : [address], [place]., [address] Anion gap 6 2 - 15 mmol/L [facility] Comment:Testing performed by : [address] [address] BUN 6 6 - 25 mg/dL [facility] Comment:Testing performed by : [address] [address] Creatinine 0.39(L) 0.60 - 1.10 mg/dL [facility] Comment:Testing performed by : [address] [address] Glucose 137 70 - 199 mg/dL [facility] Comment: Interpretive Data Fasting glucose >/= 126 [...] was last revised 2022. Testing performed by: [address], [place]., [address] Calcium 7.9(L) 8.5 - 10.3 mg/dL [facility] Comment:Testing performed by : [facility], [address] [place] [address]., [address] Blood 10/07/2024 5:29 AM CDT 10/07/2024 5:46 AM CDT us Laurel Desir MD LAB BLOOD ORDERABLES Final Res ult SABRA [address] [place] [address] * eGFR (10/06/2024 5:10 AM CDT) eGFR [...] was last reviewed 2021. Testing performed by: [facility], [address] [place] [address]., [address] Blood 10/06/2024 5:10 AM CDT 10/06/2024 5:26 AM CDT us Laurel Desir MD LAB BLOOD ORDERABLES Final Res ult SABRA [address] [place] [address] * (ABNORMAL) Differential, auto (10/06/2024 5:10 AM CDT) Neutrophil abs 0.09(C) 1.50 - 6.50 K/cumm Comment: Critical value called within last 72 hrs Testing performed by: [address] [address] Imm gran abs 0.01 0.00 - 0.10 K/cumm [facility]RA Comment:Testing performed by : [address], [place]., [address] Lymphocyte abs 0.57(L) 0.80 - 3.30 K/cumm [facility] Comment:Testing performed by : [address], [place]., [address] Monocyte abs 0.01(L) 0.20 - 0.80 K/cumm [facility] Comment:Testing performed by : [address], [place]., [address] Eosinophil abs 0.01 0.00 - 0.50 K/cumm [facility] Comment:Testing performed by : [address] [address] Basophil abs 0.00 0.00 - 0.10 K/cumm [facility] Comment:Testing performed by : [address] [address] Neutrophil pct 13.2 % [facility] Comment: Differential consistent with previous result. Differential consistent with previous result. Interpretive Data Percent cell count reference ranges are not reported, since discordance with absolute values may lead to misinterpretation of CBC data. Current Interpretive Data was last revised on 2017. Testing performed by: [address] [address] Imm gran pct 1.4 % [facility] Comment: Interpretive Data Percent cell count reference ranges are not reported, since discordance with absolute values may lead to misinterpretation of CBC data. Current Interpretive Data was last revised on 2017. Testing performed by: [address] [address] Lymphocyte pct 82.6 % [facility] Comment: Interpretive Data Percent cell count reference ranges are not reported, since discordance with absolute values may lead to misinterpretation of CBC data. Current Interpretive Data was last revised on 2017. Testing performed by: [address] [address] Monocyte pct 1.4 % [facility] Comment: Interpretive Data Percent cell count reference ranges are not reported, since discordance with absolute values may lead to misinterpretation of CBC data. Current Interpretive Data was last revised on 2017. Testing performed by: [address] [address] Eosinophil pct 1.4 % [facility] Comment: Interpretive Data Percent cell count reference ranges are not reported, since discordance with absolute values may lead to misinterpretation of CBC data. Current Interpretive Data was last revised on 2017. Testing performed by: [address] [address] Basophil pct 0.0 % [facility] Comment: Interpretive Data Percent cell count reference ranges are not reported, since discordance with absolute values may lead to misinterpretation of CBC data. Current Interpretive Data was last revised on 2017. Testing performed by: [address] [address] Blood 10/06/2024 5:10 AM CDT 10/06/2024 5:26 AM CDT us Laurel Desir MD LAB BLOOD ORDERABLES Final Res ult [facility] 0[address] [facility] [place], [place] [id number] * (ABNORMAL) CBC with auto differential (10/06/2024 5:10 AM CDT) WBC 0.69(C) 3.80 - 9.90 K/cumm Comment: Critical value called within last 72 hrs Testing performed by: [address] [address] Hgb 7.1(L) 11.9 - 15.5 g/dL [facility] Comment:Testing performed by : [address] [address] Hct 21.9(L) 35.6 - 45.5 % [facility] Comment:Testing performed by : [address] [address] Plt 149(L) 150 - 400 K/cumm [facility] Comment:Testing performed by : [address] [address] MPV 11.8 9.1 - 12.3 fL [facility]RA Comment:Testing performed by : [address], [address] RBC 2.26(L) 3.90 - 5.20 M/cumm [facility] Comment:Testing performed by : [address], [address] MCV 96.9(H) 81.3 - 96.4 fL [facility] Comment:Testing performed by : [address] [address] MCH 31.4 27.1 - 33.3 pg [facility] Comment:Testing performed by : [address], [address] MCHC 32.4 32.3 - 35.7 g/dL [facility] Comment:Testing performed by : [address], [address] RDW CV 15.0(H) 11.1 - 14.9 % [facility] Comment:Testing performed by : [address], [address] RDW SD 53.1(H) 35.7 - 48.1 fL [facility] Comment:Testing performed by : [address], [address] NRBC abs 0.00 0.00 - 0.01 K/cumm [facility] Comment:Testing performed by : [address], [address] Morphologic Screen Results confirmed by manual morphology review. [facility] Comment:Testing performed by : [address], [address] Blood 10/06/2024 5:10 AM CDT 10/06/2024 5:26 AM CDT us Laurel Desir MD LAB BLOOD ORDERABLES Final Res ult Performing Organization Address [facility] de Phone Number AMY[address] [place] [address] * (ABNORMAL) Phosphorus (10/06/2024 5:10 AM CDT) Pathologist [facility] Phosphorus, pl 2.1(L) 2.3 - 4.5 mg/dL Comment:Testing performed by : [address] [address] Blood 10/06/2024 5:10 AM CDT 10/06/2024 5:26 AM CDT Juan A Rios MD LAB BLOOD ORDERABL ES Final Result Performing Organization Address [facility] de Phone Number [address] [place] [address] * Magnesium (10/06/2024 5:10 AM CDT) [facility] Magnesium 2.0 1.4 - 2.5 mg/dL Comment:Testing performed by : [address] [address] Blood 10/06/2024 5:10 AM CDT 10/06/2024 5:26 AM CDT Juan A Rios MD LAB BLOOD ORDERABL ES Final Result Performing Organization Address [facility] Co de Phone Number [address] [place] [address] * (ABNORMAL) Basic metabolic panel (10/06/2024 5:10 AM CDT) [facility] Sodium 136 135 - 145 mmol/L Comment:Testing performed by : [address] [address] Potassium, pl 3.6 3.3 - 4.9 mmol/L [facility]ABRA Comment:Testing performed by : [address] [place]., [address] Chloride 101 97 - 110 mmol/L [facility]RA Comment:Testing performed by : [address] [address] CO2 28 22 - 32 mmol/L S[facility]RA Comment:Testing performed by : [address] [address] Anion gap 7 2 - 15 mmol/L S[facility]RA Comment:Testing performed by : [address] [address] BUN 8 6 - 25 mg/dL [facility]RA Comment:Testing performed by : [address] [address] Creatinine 0.42(L) 0.60 - 1.10 mg/dL [facility] Comment:Testing performed by : [address] [address] Glucose 133 70 - 199 mg/dL SABRA [...] was last revised 2022. Testing performed by: [address] [address] Calcium 7.6(L) 8.5 - 10.3 mg/dL [facility] Comment:Testing performed by : [address] [address] Blood 10/06/2024 5:10 AM CDT 10/06/2024 5:26 AM CDT us Laurel Desir MD LAB BLOOD ORDERABLES Final Res ult [facility] [address] [facility] [place] [address] * XR Kub (10/05/2024 7:42 PM CDT) [...] 1:06 AM - Electronically signed by Lee Wilkins M.D. KH: SILVIANO Report ID: [id number] Reading Location: [id number] Procedure Note Lee Wilkins MD - 10/06/2024 [...] 1:06 AM - Electronically signed by Lee Wilkins M.D. KH: SILVIANO Report ID: [id number] Reading Location: [id number] Juan A Rios MD IMG XR PROCEDURES [...] Shadi Nesbitt M.D. MJ: ALINE Report ID: [id number] Reading Location: [place] [address] Procedure Note Shadi Nesbitt MD - 10/05/2024 [...] Shadi Nesbitt M.D. MJ: ALINE Report ID: [id number] Reading Location: [place] [address] us Juan A Rios MD IMG XR [...] was last reviewed 2021. Testing performed by: [facility], [address] [place] [address], [place]., [address] Blood 10/05/2024 6:06 AM CDT 10/05/2024 6:40 AM CDT us Laurel Desir MD LAB BLOOD ORDERABLES Final Res ult SABRA 1451 [facility] [place] [address] * (ABNORMAL) Differential, auto (10/05/2024 6:06 AM CDT) Neutrophil abs 0.06(C) 1.50 - 6.50 K/cumm Comment: This result has been called to [place] [address] by [email or web address] on 10/05/2024 07:54:45, and has been read back. Testing performed by: [address] [address] Imm gran abs 0.02 0.00 - 0.10 K/cumm SABRA Comment:Testing performed by : [address] [address] Lymphocyte abs 0.44(L) 0.80 - 3.30 K/cumm [facility] Comment:Testing performed by : [address] [address] Monocyte abs 0.01(L) 0.20 - 0.80 K/cumm [facility] Comment:Testing performed by : [address] [address] Eosinophil abs 0.00 0.00 - 0.50 K/cumm [facility] Comment:Testing performed by : [address] [address] Basophil abs 0.00 0.00 - 0.10 K/cumm [facility] Comment:Testing performed by : [address] [address] Neutrophil pct 11.3 % [facility] Comment: Differential consistent with previous result. Differential consistent with previous result. Differential consistent with previous result. Interpretive Data Percent cell count reference ranges are not reported, since discordance with absolute values may lead to misinterpretation of CBC data. Current Interpretive Data was last revised on 2017. Testing performed by: [address] [address] Imm gran pct 3.8 % [facility] Comment: Interpretive Data Percent cell count reference ranges are not reported, since discordance with absolute values may lead to misinterpretation of CBC data. Current Interpretive Data was last revised on 2017. Testing performed by: [address] [address] Lymphocyte pct 83.0 % [facility] Comment: Interpretive Data Percent cell count reference ranges are not reported, since discordance with absolute values may lead to misinterpretation of CBC data. Current Interpretive Data was last revised on 2017. Testing performed by: [address] [address] Monocyte pct 1.9 % [facility] Comment: Interpretive Data Percent cell count reference ranges are not reported, since discordance with absolute values may lead to misinterpretation of CBC data. Current Interpretive Data was last revised on 2017. Testing performed by: [address] [address] Eosinophil pct 0.0 % [facility] Comment: Interpretive Data Percent cell count reference ranges are not reported, since discordance with absolute values may lead to misinterpretation of CBC data. Current Interpretive Data was last revised on 2017. Testing performed by: [address] [address] Basophil pct 0.0 % [facility] Comment: Interpretive Data Percent cell count reference ranges are not reported, since discordance with absolute values may lead to misinterpretation of CBC data. Current Interpretive Data was last revised on 2017. Testing performed by: [address] [address] Blood 10/05/2024 6:06 AM CDT 10/05/2024 6:40 AM CDT us Laurel Desir MD LAB BLOOD ORDERABLES Final Res ult [facility] [address] [facility] [place] [address] * (ABNORMAL) CBC with auto differential (10/05/2024 6:06 AM CDT) WBC 0.53(C) 3.80 - 9.90 K/cumm Comment: This result has been called to [id number] by [email or web address] on 10/05/2024 07:54:45, and has been read back. Testing performed by: [address] [address] Hgb 7.6(L) 11.9 - 15.5 g/dL SABRA Comment:Testing performed by : [address] [address] Hct 23.6(L) 35.6 - 45.5 % [facility] Comment:Testing performed by : [address], [address] Plt 152 150 - 400 K/cumm [facility] Comment:Testing performed by : [address], [address] MPV 11.6 9.1 - 12.3 fL SABRA Comment:Testing performed by : [address], [address] RBC 2.41(L) 3.90 - 5.20 M/cumm [facility]:Testing performed by : [address], [address] MCV 97.9(H) 81.3 - 96.4 fL [facility] Comment:Testing performed by : [address], [address] MCH 31.5 27.1 - 33.3 pg [facility] Comment:Testing performed by : [address], [address] MCHC 32.2(L) 32.3 - 35.7 g/dL [facility]RA Comment:Testing performed by : [address], [address] RDW CV 15.0(H) 11.1 - 14.9 % [facility] Comment:Testing performed by : [address], [address] RDW SD 53.0(H) 35.7 - 48.1 fL [facility] Comment:Testing performed by : [address], [address] NRBC abs 0.00 0.00 - 0.01 K/cumm [facility] Comment:Testing performed by : [address] [address] Morphologic Screen Results confirmed by manual morphology review. [facility] Comment:Testing performed by : [address] [address] Blood 10/05/2024 6:06 AM CDT 10/05/2024 6:40 AM CDT us Laurel Desir MD LAB BLOOD ORDERABLES Final Res ult [facility] 45[address] [facility] [place] [address] * (ABNORMAL) Basic metabolic panel (10/05/2024 6:06 AM CDT) Sodium 139 135 - 145 mmol/L Comment:Testing performed by : [address] [address] Potassium, pl 4.2 3.3 - 4.9 mmol/L SABRA Comment:Testing performed by : [address] [address] Chloride 102 97 - 110 mmol/L SABRA Comment:Testing performed by : [address] [address] CO2 30 22 - 32 mmol/L [facility] Comment:Testing performed by : [address] [address] Anion gap 7 2 - 15 mmol/L [facility] Comment:Testing performed by : [address] [address] BUN 11 6 - 25 mg/dL [facility]RA Comment:Testing performed by : [address] [address] Creatinine 0.43(L) 0.60 - 1.10 mg/dL S[facility]RA Comment:Testing performed by : [address] [address] Glucose 144 70 - 199 mg/dL SABRA [...] was last revised 2022. Testing performed by: [address] [address] Calcium 7.8(L) 8.5 - 10.3 mg/dL [facility]RA Comment:Testing performed by : [address] [address] Blood 10/05/2024 6:06 AM CDT 10/05/2024 6:40 AM CDT us Laurel Desir MD LAB BLOOD ORDERABLES Final Res ult Performing Organization Address City/[facility]/ZIP Co de Phone Number AMY[address] [employer] [place] [address] * Blood smear review (10/04/2024 5:48 AM CDT) Pathologist [facility] RBC morphology Consistent with RBC Indicies Comment:Testing performed by : [address] [address] Platelet estimate Automated Count Confirmed SABRA Comment:Testing performed by : [address] [address] Blood 10/04/2024 5:48 AM CDT 10/04/2024 6:23 AM CDT Laurel Desir MD LAB BLOOD ORDERABLES Final Res ult AMY[address] [employer] [place] [address] * eGFR (10/04/2024 5:48 AM CDT) Pathologist [facility] eGFR >90 >=60 mL/min/1. 73 m2 [...] was last reviewed 2021. Testing performed by: [address] [address] Blood 10/04/2024 5:48 AM CDT 10/04/2024 6:23 AM CDT us Laurel Desir MD LAB BLOOD ORDERABLES Final Res ult SABRA 60[address] [facility] [place] [address] * (ABNORMAL) Differential, auto (10/04/2024 5:48 AM CDT) [facility] Neutrophil abs 0.04(C) 1.50 - 6.50 K/cumm Comment: Critical value called within last 72 hrs Testing performed by: [address] [address] Imm gran abs 0.00 0.00 - 0.10 K/cumm SABRA Comment:Testing performed by : [address] [address] Lymphocyte abs 0.48(L) 0.80 - 3.30 K/cumm SABRA Comment:Testing performed by : [address] [address] Monocyte abs 0.05(L) 0.20 - 0.80 K/cumm [facility] Comment:Testing performed by : [address] [address] Eosinophil abs 0.00 0.00 - 0.50 K/cumm [facility] Comment:Testing performed by : [address] [address] Basophil abs 0.00 0.00 - 0.10 K/cumm [facility] Comment:Testing performed by : [address] [address] Neutrophil pct 7.0 % [facility] Comment: Differential consistent with previous result. Differential consistent with previous result. Differential consistent with previous result. Interpretive Data Percent cell count reference ranges are not reported, since discordance with absolute values may lead to misinterpretation of CBC data. Current Interpretive Data was last revised on 2017. Testing performed by: [address] [address] Imm gran pct 0.0 % [facility] Comment: Interpretive Data Percent cell count reference ranges are not reported, since discordance with absolute values may lead to misinterpretation of CBC data. Current Interpretive Data was last revised on 2017. Testing performed by: [address] [address] Lymphocyte pct 84.2 % [facility] Comment: Interpretive Data Percent cell count reference ranges are not reported, since discordance with absolute values may lead to misinterpretation of CBC data. Current Interpretive Data was last revised on 2017. Testing performed by: [address] [address] Monocyte pct 8.8 % [facility] Comment: Interpretive Data Percent cell count reference ranges are not reported, since discordance with absolute values may lead to misinterpretation of CBC data. Current Interpretive Data was last revised on 2017. Testing performed by: [address] [address] Eosinophil pct 0.0 % [facility] Comment: Interpretive Data Percent cell count reference ranges are not reported, since discordance with absolute values may lead to misinterpretation of CBC data. Current Interpretive Data was last revised on 2017. Testing performed by: [address] [address] Basophil pct 0.0 % SABRA PARKS Comment: Interpretive Data Percent cell count reference ranges are not reported, since discordance with absolute values may lead to misinterpretation of CBC data. Current Interpretive Data was last revised on 2017. Testing performed by: [address] [address] Blood 10/04/2024 5:48 AM CDT 10/04/2024 6:23 AM CDT us Laurel Desir MD LAB BLOOD ORDERABLES Final Res ult SABRA 5261 [facility] [place] [address] * (ABNORMAL) CBC with auto differential (10/04/2024 5:48 AM CDT) WBC 0.57(C) 3.80 - 9.90 K/cumm Comment: Critical value called within last 72 hrs Testing performed by: [address] [address] Hgb 7.7(L) 11.9 - 15.5 g/dL SABRA PARKS Comment:Testing performed by : [address] [address] Hct 23.8(L) 35.6 - 45.5 % SABRA Comment:Testing performed by : [address] [address] Plt 136(L) 150 - 400 K/cumm SABRA Comment:Testing performed by : [address] [address] MPV 11.5 9.1 - 12.3 fL SABRA PARKS Comment:Testing performed by : [address] [address] RBC 2.46(L) 3.90 - 5.20 M/cumm SABRA PARKS Comment:Testing performed by : [address] [place]., [address] MCV 96.7(H) 81.3 - 96.4 fL SABRA PARKS Comment:Testing performed by : [address] [address] MCH 31.3 27.1 - 33.3 pg SABRA PARKS Comment:Testing performed by : [address] [address] MCHC 32.4 32.3 - 35.7 g/dL SABRA PARKS Comment:Testing performed by : [address] [address] RDW CV 15.1(H) 11.1 - 14.9 % SABRA PARKS Comment:Testing performed by : [address] [address] RDW SD 52.9(H) 35.7 - 48.1 fL SABRA PARKS Comment:Testing performed by : [address] [address] NRBC abs 0.00 0.00 - 0.01 K/cumm SABRA PARKS Comment:Testing performed by : [address], [address] Blood 10/04/2024 5:48 AM CDT 10/04/2024 6:23 AM CDT us Laurel Desir MD LAB BLOOD ORDERABLES Edited Re sult - Final SABRA 5315 [facility] [place], [place] [id number] * (ABNORMAL) Basic metabolic panel (10/04/2024 5:48 AM CDT) Sodium 139 135 - 145 mmol/L Comment:Testing performed by : [address] [address] Potassium, pl 4.1 3.3 - 4.9 mmol/L SABRA PARKS Comment:Testing performed by : [address], [address] Chloride 103 97 - 110 mmol/L SABRA PARKS Comment:Testing performed by : [address] [address] CO2 31 22 - 32 mmol/L SABRA Comment:Testing performed by : [address] [address] Anion gap 5 2 - 15 mmol/L SABRA Comment:Testing performed by : [address] [address] BUN 8 6 - 25 mg/dL SABRA Comment:Testing performed by : [address] [address] Creatinine 0.41(L) 0.60 - 1.10 mg/dL SABRA Comment:Testing performed by : [address] [address] Glucose 141 70 - 199 mg/dL SABRA [...] was last revised 2022. Testing performed by: [address] [address] Calcium 7.7(L) 8.5 - 10.3 mg/dL SABRA Comment:Testing performed by : [address] [address] Blood 10/04/2024 5:48 AM CDT 10/04/2024 6:23 AM CDT us Laurel Desir MD LAB BLOOD ORDERABLES Final Res ult SABRA 7599 [facility] [place] [address] * POCT glucose (10/03/2024 8:17 PM CDT) Glucose, POC 192 70 - 199 mg/dL Comment:Testing performed by : [facility], [address] [place] [address]., [address] Glucose comment 1 RN/MD Notified SABRA PARKS Comment:Testing performed by : [facility], [address] [place] [address]., [address] Blood 10/03/2024 8:17 PM CDT 10/03/2024 8:17 PM CDT Juan A Rios MD LAB POCT ORDERABLE S - DEVICE Final Result SABRA PARKS 0668 [facility] [place] [address] * XR Chest 1 View [...] Esdras Edgar M.D. MM: MM Report ID: [id number] Reading Location: [id number] Procedure Note Esdras Edgar MD - 10/03/2024 [...] Esdras Edgar M.D. MM: MM Report ID: [id number] Reading Location: [place] [address] Gretta Martinez MD IMG XR PROCEDURES Aylin [...] was last reviewed 2021. Testing performed by: [address] [address] Blood 10/03/2024 6:19 AM CDT 10/03/2024 7:42 AM CDT us Laurel Desir MD LAB BLOOD ORDERABLES Final Res ult [facility] 6506 [facility] [place] [address] * (ABNORMAL) Differential, auto (10/03/2024 6:19 AM CDT) Neutrophil abs 0.03(C) 1.50 - 6.50 K/cumm Comment: Critical value called within last 72 hrs Testing performed by: [address] [address] Imm gran abs 0.01 0.00 - 0.10 K/cumm SABRA Comment:Testing performed by : [address] [address] Lymphocyte abs 0.41(L) 0.80 - 3.30 K/cumm SABRA Comment:Testing performed by : [address] [address] Monocyte abs 0.06(L) 0.20 - 0.80 K/cumm SABRA Comment:Testing performed by : [address] [address] Eosinophil abs 0.00 0.00 - 0.50 K/cumm SABRA Comment:Testing performed by : [address] [address] Basophil abs 0.00 0.00 - 0.10 K/cumm SABRA Comment:Testing performed by : [address] [address] Neutrophil pct 5.8 % SABRA Comment: Differential consistent with previous result. Differential consistent with previous result. Interpretive Data Percent cell count reference ranges are not reported, since discordance with absolute values may lead to misinterpretation of CBC data. Current Interpretive Data was last revised on 2017. Testing performed by: [address] [address] Imm gran pct 2.0 % [facility] Comment: Interpretive Data Percent cell count reference ranges are not reported, since discordance with absolute values may lead to misinterpretation of CBC data. Current Interpretive Data was last revised on 2017. Testing performed by: [address] [address] Lymphocyte pct 80.4 % [facility] Comment: Interpretive Data Percent cell count reference ranges are not reported, since discordance with absolute values may lead to misinterpretation of CBC data. Current Interpretive Data was last revised on 2017. Testing performed by: [address] [address] Monocyte pct 11.8 % [facility] Comment: Interpretive Data Percent cell count reference ranges are not reported, since discordance with absolute values may lead to misinterpretation of CBC data. Current Interpretive Data was last revised on 2017. Testing performed by: [address] [address] Eosinophil pct 0.0 % [facility] Comment: Interpretive Data Percent cell count reference ranges are not reported, since discordance with absolute values may lead to misinterpretation of CBC data. Current Interpretive Data was last revised on 2017. Testing performed by: [address] [address] Basophil pct 0.0 % [facility] Comment: Interpretive Data Percent cell count reference ranges are not reported, since discordance with absolute values may lead to misinterpretation of CBC data. Current Interpretive Data was last revised on 2017. Testing performed by: [address] [address] Blood 10/03/2024 6:19 AM CDT 10/03/2024 6:23 AM CDT us Laurel Desir MD LAB BLOOD ORDERABLES Final Res ult SABRA 2459 [facility] [place] [address] * (ABNORMAL) CBC with auto differential (10/03/2024 6:19 AM CDT) [facility] Signature WBC 0.51(C) 3.80 - 9.90 K/cumm Comment: Critical value called within last 72 hrs Testing performed by: [address], [address] Hgb 7.6(L) 11.9 - 15.5 g/dL SABRA Comment:Testing performed by : [address], [address] Hct 23.5(L) 35.6 - 45.5 % SABRA Comment:Testing performed by : [address], [address] Plt 107(L) 150 - 400 K/cumm SABRA Comment:Testing performed by : [address], [address] MPV 11.8 9.1 - 12.3 fL SABRA Comment:Testing performed by : [address], [address] RBC 2.44(L) 3.90 - 5.20 M/cumm SABRA Comment:Testing performed by : [address], [address] MCV 96.3 81.3 - 96.4 fL SABRA Comment:Testing performed by : [address], [address] MCH 31.1 27.1 - 33.3 pg SABRA Comment:Testing performed by : [address], [address] MCHC 32.3 32.3 - 35.7 g/dL SABRA Comment:Testing performed by : [address], [address] RDW CV 15.0(H) 11.1 - 14.9 % SABRA Comment:Testing performed by : [address], [address] RDW SD 52.5(H) 35.7 - 48.1 fL SABRA Comment:Testing performed by : [address] [place] [address] NRBC abs 0.00 0.00 - 0.01 K/cumm SABRA PARKS Comment:Testing performed by : [address] [address] Morphologic Screen Results confirmed by manual morphology review. SABRA PARKS Comment:Testing performed by : [address] [address] Blood 10/03/2024 6:19 AM CDT 10/03/2024 6:23 AM CDT us Laurel Desir MD LAB BLOOD ORDERABLES Final Res ult Performing Organization Address [facility] Co de Phone Number [address] [place] [address] * (ABNORMAL) CRP (acute phase) (10/03/2024 6:19 AM CDT) CRP 95.5(H) <=10.0 mg/L Comment:Testing performed by : [address] [address] Blood 10/03/2024 6:19 AM CDT 10/03/2024 6:23 AM CDT us Gretta Martinez MD LAB BLOOD ORDERABLES F inal Result Performing Organization Address [facility] Co de Phone Number [address] [place] [address] * (ABNORMAL) Basic metabolic panel (10/03/2024 6:19 AM CDT) Sodium 140 135 - 145 mmol/L Comment:Testing performed by : [address] [address] Potassium, pl 4.5 3.3 - 4.9 mmol/L SABRA PARKS Comment: Delta - Results Reviewed Testing performed by: [address] [address] Chloride 103 97 - 110 mmol/L SABRA PARKS Comment:Testing performed by : [address] [address] CO2 31 22 - 32 mmol/L SABRA Comment:Testing performed by : [address] [address] Anion gap 6 2 - 15 mmol/L SABRA Comment:Testing performed by : [address] [address] BUN 7 6 - 25 mg/dL SABRA Comment:Testing performed by : [address] [address] Creatinine 0.40(L) 0.60 - 1.10 mg/dL SABRA Comment:Testing performed by : [address] [address] Glucose 145 70 - 199 mg/dL SABRA [...] was last revised 2022. Testing performed by: [address] [address] Calcium 7.7(L) 8.5 - 10.3 mg/dL SABRA Comment:Testing performed by : [address] [address] Blood 10/03/2024 6:19 AM CDT 10/03/2024 6:23 AM CDT us Laurel Desir MD LAB BLOOD ORDERABLES Final Res ult SABRA 4939 [facility] [place] [address] * (ABNORMAL) Blood smear review (10/02/2024 4:26 AM CDT) RBC morphology Present(A) Comment:Testing performed by : [address] [address] Anisocytosis Slight(A) SABRA Comment:Testing performed by : [address] [address] Microcytes 3-7/HPF(A) SABRA Comment:Testing performed by : [address] [address] Platelet estimate Automated Count Confirmed SABRA Comment:Testing performed by : [address] [address] Giant platelets Present(A) SABRA Comment:Testing performed by : [address] [address] Blood 10/02/2024 4:26 AM CDT 10/02/2024 5:24 AM CDT Laurel Desir MD LAB BLOOD ORDERABLES Final Res ult [place] [id number] [facility] [place] [address] * eGFR (10/02/2024 4:26 AM CDT) eGFR [...] was last reviewed 2021. Testing performed by: [address] [address] Blood 10/02/2024 4:26 AM CDT 10/02/2024 5:24 AM CDT us Laurel Desir MD LAB BLOOD ORDERABLES Final Res ult [facility] 4500 [facility] [place] [address] * (ABNORMAL) Differential, auto (10/02/2024 4:26 AM CDT) Neutrophil abs 0.01(C) 1.50 - 6.50 K/cumm Comment: This result has been called to [id number] by [id number] on 10/02/2024 07:28:40, and has been read back. Testing performed by: [address] [address] Imm gran abs 0.00 0.00 - 0.10 K/cumm SABRA Comment:Testing performed by : [address] [address] Lymphocyte abs 0.35(L) 0.80 - 3.30 K/cumm SABRA Comment:Testing performed by : [address] [address] Monocyte abs 0.03(L) 0.20 - 0.80 K/cumm SABRA Comment:Testing performed by : [address] [address] Eosinophil abs 0.00 0.00 - 0.50 K/cumm SABRA Comment:Testing performed by : [address] [address] Basophil abs 0.00 0.00 - 0.10 K/cumm SABRA Comment:Testing performed by : [address] [address] Neutrophil pct 2.6 % SABRA Comment: Interpretive Data Percent cell count reference ranges are not reported, since discordance with absolute values may lead to misinterpretation of CBC data. Current Interpretive Data was last revised on 2017. Testing performed by: [address] [address] Imm gran pct 0.0 % [facility] Comment: Interpretive Data Percent cell count reference ranges are not reported, since discordance with absolute values may lead to misinterpretation of CBC data. Current Interpretive Data was last revised on 2017. Testing performed by: [address] [address] Lymphocyte pct 89.7 % [facility] Comment: Interpretive Data Percent cell count reference ranges are not reported, since discordance with absolute values may lead to misinterpretation of CBC data. Current Interpretive Data was last revised on 2017. Testing performed by: [address] [address] Monocyte pct 7.7 % [facility] Comment: Interpretive Data Percent cell count reference ranges are not reported, since discordance with absolute values may lead to misinterpretation of CBC data. Current Interpretive Data was last revised on 2017. Testing performed by: [address] [address] Eosinophil pct 0.0 % [facility] Comment: Interpretive Data Percent cell count reference ranges are not reported, since discordance with absolute values may lead to misinterpretation of CBC data. Current Interpretive Data was last revised on 2017. Testing performed by: [address] [address] Basophil pct 0.0 % [facility] Comment: Interpretive Data Percent cell count reference ranges are not reported, since discordance with absolute values may lead to misinterpretation of CBC data. Current Interpretive Data was last revised on 2017. Testing performed by: [address] [address] Blood 10/02/2024 4:26 AM CDT 10/02/2024 5:24 AM CDT us Laurel Desir MD LAB BLOOD ORDERABLES Final Res ult SABRA 4500 [facility] [place] [address] * (ABNORMAL) CBC with auto differential (10/02/2024 4:26 AM CDT) WBC 0.39(C) 3.80 - 9.90 K/cumm Comment: This result has been called to [id number] by [id number] on 10/02/2024 07:28:40, and has been read back. Testing performed by: [address] [address] Hgb 7.5(L) 11.9 - 15.5 g/dL SABRA Comment:Testing performed by : [address] [address] Hct 22.5(L) 35.6 - 45.5 % SABRA Comment:Testing performed by : [address] [address] Plt 84(L) 150 - 400 K/cumm SABRA Comment:Testing performed by : [address] [address] MPV 11.5 9.1 - 12.3 fL SABRA Comment:Testing performed by : [address] [address] RBC 2.42(L) 3.90 - 5.20 M/cumm SABRA Comment:Testing performed by : [address] [address] MCV 93.0 81.3 - 96.4 fL SABRA Comment:Testing performed by : [address] [address] MCH 31.0 27.1 - 33.3 pg SABRA Comment:Testing performed by : [address] [address] MCHC 33.3 32.3 - 35.7 g/dL SABRA Comment:Testing performed by : [address] [address] RDW CV 14.9 11.1 - 14.9 % SABAR Comment:Testing performed by : [address] [address] RDW SD 50.3(H) 35.7 - 48.1 fL SABRA Comment:Testing performed by : [address] [address] NRBC abs 0.00 0.00 - 0.01 K/cumm SABRA Comment:Testing performed by : [address] [address] Blood 10/02/2024 4:26 AM CDT 10/02/2024 5:24 AM CDT us Laurel Desir MD LAB BLOOD ORDERABLES Edited Re sult - Final Performing Organization Address [facility] Co de Phone Number [address] [place] [address] * (ABNORMAL) Phosphorus (10/02/2024 4:26 AM CDT) Phosphorus, pl 1.8(L) 2.3 - 4.5 mg/dL Comment:Testing performed by : [address], [address] Blood 10/02/2024 4:26 AM CDT 10/02/2024 5:24 AM CDT us Juan A Rios MD LAB BLOOD ORDERABL ES Final Result Performing Organization Address [facility]/ZIP Co de Phone Number [address] [address] * Magnesium (10/02/2024 4:26 AM CDT) Magnesium 1.9 1.4 - 2.5 mg/dL Comment:Testing performed by : [address] [address] Blood 10/02/2024 4:26 AM CDT 10/02/2024 5:24 AM CDT Juan A Rios MD LAB BLOOD ORDERABL ES Final Result SABRA 5140 [facility] [place] [address] * (ABNORMAL) Basic metabolic panel (10/02/2024 4:26 AM CDT) Sodium 140 135 - 145 mmol/L Comment:Testing performed by : [address] [address] Potassium, pl 3.4 3.3 - 4.9 mmol/L SABRA Comment:Testing performed by : [address] [address] Chloride 101 97 - 110 mmol/L SABRA Comment:Testing performed by : [address] [address] CO2 32 22 - 32 mmol/L SABRA Comment:Testing performed by : [address] [address] Anion gap 7 2 - 15 mmol/L SABRA Comment:Testing performed by : [address] [address] BUN 6 6 - 25 mg/dL SABRA Comment:Testing performed by : [address] [address] Creatinine 0.47(L) 0.60 - 1.10 mg/dL SABRA Comment:Testing performed by : [address] [address] Glucose 137 70 - 199 mg/dL SABRA [...] was last revised 2022. Testing performed by: [facility], [address] [place] [address]., [address] Calcium 7.7(L) 8.5 - 10.3 mg/dL SABRA Comment:Testing performed by : [facility], [address] [place] [address]., [address] Blood 10/02/2024 4:26 AM CDT 10/02/2024 5:24 AM CDT us Laurel Desir MD LAB BLOOD ORDERABLES Final Res ult Performing Organization Address [facility] Co de Phone Number SABRA [address] [place] [address] * Coccidioides antibody screen w/reflex Blood (10/01/2024 8:07 PM CDT) [facility] Coccidioides ab screen, ser Negative Negative [facility] Comment: Repeat testing on a new sample in 2-3 weeks if clinically indicated. ADDITIONAL INFORMATION This test has been modified from the calcine furnace loader's instructions. Its performance characteristics were determined by [facility] in a manner consistent with CLIA requirements. This test has not been cleared or approved by the U.S. Food and Drug Administration. Test Performed by: [place] [address] Waters[place] Worker: Lloyd Olmstead Ph.D.; CLIA# [id number] Testing performed by: [address] [address] Blood 10/01/2024 8:07 PM CDT 10/01/2024 8:23 PM CDT Gretta Martinez MD LAB MICROBIOLOGY - GEN ERAL ORDERABLES Final Result Performing Organization Address City/[facility]/ZIP Co de Phone Number AMY[address] [place] [address] [facility] * Blastomyces antibody, EIA, serum Blood (10/01/2024 8:07 PM CDT) Blastomyces Antibody Negative Negative [facility] Comment: A single negative result does not exclude the diagnosis of blastomycosis. Repeat testing on a new sample in 7-14 days if clinically indicated. Test Performed by: [facility] [address] [place] [address] Waters[place] Worker: Lloyd Olmstead Ph.D.; CLIA# [id number] Testing performed by: [facility], [address] [place] [address]., [address] Blood 10/01/2024 8:07 PM CDT 10/01/2024 8:23 PM CDT Gretta Martinez MD LAB MICROBIOLOGY - GEN ERAL ORDERABLES Final Result SABRA 45[address] [facility] [place] [address] [facility] * Cryptococcal Antigen, Serum Blood (10/01/2024 8:07 PM CDT) Pathologist [facility] Cryptococcus ag, Serum Negative Negative Comment: The [...] data last revised 2018. Testing performed by: [facility], [address] [facility], [place]., [address] Blood 10/01/2024 8:07 PM CDT 10/02/2024 2:16 AM CDT Gretta Martinez MD LAB MICROBIOLOGY - GEN ERAL ORDERABLES Final Result Performing Organization Address [facility] Co de Phone Number SABRA [address] [address] * Aspergillus galactomannan antigen Blood (10/01/2024 8:07 PM CDT) Aspergillus galactomannan Ag TNP [facility] Comment: Aspergillus Ag, S was cancelled on 10/03/2024 at 12:25; INCORRECT COLLECTION CONTAINER SUBMITTED. Test Performed by: [facility] [address] [place] [address] Waters[place] Worker: Lloyd Olmstead Ph.D.; CLIA# [id number] Testing performed by: [facility], [address] [place] [address]., [address] Blood 10/01/2024 8:07 PM CDT 10/01/2024 8:23 PM CDT Gretta Martinez MD LAB MICROBIOLOGY - GEN ERAL ORDERABLES Final Result Performing Organization Address City/[facility] Co de Phone Number AMY[address] [address] [facility] * Transfuse RBC (10/01/2024 6:25 PM CDT) Blood Lisette Loera EQUITY STRUCTURER BLOOD TRANSFUSION ORDERABLES Final Result Performing Organization Address City/[facility] Co de Phone Number AMY[address] [place] [address] * Histoplasma Antigen Urine (10/01/2024 6:10 PM CDT) Histo/Blasto Ag Value Not Detected ng/mL [facility] Comment: ADDITIONAL INFORMATION This test was developed and its performance characteristics determined by [facility] in a manner consistent with CLIA requirements. This test has not been cleared or approved by the U.S. Food and Drug Administration. Test Performed by: [facility] [address] [place] [address] Waters[place] Worker: Lloyd Olmstead Ph.D.; CLIA# [id number] Testing performed by: [facility], [address] [place] [address]., [address] Histo/Blasto Ag Result Not Detected Not Detected SABRA Comment: No antigen from Histoplasma or Blastomyces detected. False negative results may occur depending on extent of disease, and/or site of infection. Repeat testing on a new specimen if clinically indicated. Testing performed by: [facility], [address] [place] [address]., [address] Urine 10/01/2024 6:10 PM CDT 10/01/2024 6:27 PM CDT Gretta Martinez MD LAB MICROBIOLOGY - GEN ERAL ORDERABLES Final Result Performing Organization Address [facility] [facility] Co de Phone Number [place] [id number] [facility] [place] [address] Pe[facility] ref Lab * Legionella antigen Urine (10/01/2024 6:10 PM CDT) Legionella Ag Negative Negative Comment: Interpretive Data This test detects only Legionella pneumophila serogroup 1 antigen. Testing performed by [facility] ([phone]). Current interpretive data was last revised on 2019. Testing performed by: [facility], [address] [place] [address] Urine 10/01/2024 6:10 PM CDT 10/01/2024 10:12 PM CDT Gretta Martinez MD LAB MICROBIOLOGY - GEN ERAL ORDERABLES Final Result Performing Organization Address City/[facility]/ZIP Co de Phone Number [place] [phone] [facility] [place] [address] * Respiratory pathogen panel Nasopharyngeal (10/01/2024 5:35 PM CDT) Influenza A RNA Not Detected Not Detected Comment:Testing performed by : [facility], [address] [place]., [address] Influenza B RNA Not Detected Not Detected [place] Comment:Testing performed by : [facility], [address] [place]., [address] RSV RNA Not Detected Not Detected [place] Comment:Testing performed by : [facility], 1 [facility], [address] COVID-19 RNA Not Detected Not Detected [place] Comment:Testing performed by : [facility], 1 [facility], [address] Coronavirus 229E RNA Not Detected Not Detected [place] Comment:Testing performed by : [facility], [address] [place]., [address] Coronavirus HKU1 RNA Not Detected Not Detected [place] Comment:Testing performed by : [facility], [address] [place]., [address] Coronavirus NL63 RNA Not Detected Not Detected [place] Comment:Testing performed by : [facility], [address] [place]., [address] Coronavirus OC43 RNA Not Detected Not Detected [place] Comment:Testing performed by : [facility], [address] [place] [address] Adenovirus DNA Not Detected Not Detected [place] Comment:Testing performed by : [facility], [address] [place] [address] Metapneumovirus RNA Not Detected Not Detected [place] Comment:Testing performed by : [facility], [address] [place] [address] Rhinovirus/Enterov irus RNA Not Detected Not Detected SABRA Comment:Testing performed by : [facility], [address] [place] [address] Parainfluenza 1 RNA Not Detected Not Detected [facility] Comment:Testing performed by : [facility], [address] [place]., [address] Parainfluenza 2 RNA Not Detected Not Detected [facility] Comment:Testing performed by : [facility], 1 [facility], [address] Parainfluenza 3 RNA Not Detected Not Detected [facility] Comment:Testing performed by : [facility], 1 [facility], [address] Parainfluenza 4 RNA Not Detected Not Detected [facility] Comment:Testing performed by : [facility], 1 [facility], [address] B. pertussis DNA Not Detected Not Detected [facility] Comment:Testing performed by : [facility], 1 [facility], [address] B. parapertussis DNA Not Detected Not Detected [facility] Comment:Testing performed by : [facility], 1 [facility], [address] C. pneumoniae DNA Not Detected Not Detected [facility] Comment:Testing performed by : [facility], 1 [facility], [address] M. pneumoniae DNA Not Detected Not Detected [facility] Comment:Testing performed by : [facility], [address] [place] [address], [address] Nasopharyngeal 10/01/2024 5: 35 PM CDT 10/01/2024 10:13 PM CDT Narrative [facility] - 10/01/2024 11:06 PM CDT Is the Patient experiencing symptoms consistent with COVID?->No Surveillance testing for transplant patient?->No Interpretive Data The Motally FilmArray Respiratory Panel (RP2.1) assay is a [...] assay has FDA clearance for testing of EQUITY STRUCTURER swabs. The performance of additional specimen types has been assessed by the performing laboratory. The performance characteristics of this assay have been determined by [facility] Infectious Disease [facility]. Current interpretive data was last revised on 22. Gretta Martinez MD LAB MICROBIOLOGY - GEN ERAL ORDERABLES Final Result SABRA 6814 [facility] [place] [address] * CT Chest Abdomen Pelvis W Contrast [...] scarring from previous diverticulitis. There is a dsrsqwxj-we-dnnal amount of stool throughout the colon. PERITONEUM: [...] Recommend correlation for bladder outlet obstruction. 4. Llmvjhqm-zc-zfwse amount of stool throughout the colon. Recommend correlation for constipation. 5. Unchanged T12 compression fracture with retropulsion of the posterior endplate causing spinal canal stenosis. Additional compression fractures as discussed above. 6. Additional findings as above. THIS IS AN ELECTRONICALLY VERIFIED FINAL REPORT 10/01/2024 4:42 PM - Electronically signed by Tristian Apple M.D. AM: AM Report ID: [id number] Reading Location: [id number] Procedure Note Tristian Apple MD - 10/01/2024 [...] chronic scarring fromprevious diverticulitis. There is a csxpbwqx-cx-fdqbz amount of stool throughoutthe colon. PERITONEUM: No [...] bladder. Recommend correlation for bladderoutlet obstruction. 4. Ahiuoakv-zd-cwzpb amount of stool throughout the colon. Recommend correlation for constipation. 5. Unchanged T12 compression fracture with retropulsion of the posterior endplate causing spinal canal stenosis. Additional compression fracturesas discussed above. 6. Additional findings as above. THIS IS AN ELECTRONICALLY VERIFIED FINAL REPORT 10/01/2024 4:42 PM - Electronically signed by Tristian Apple M.D. AM: AM Report ID: [id number] Reading Location: [id number] Juan A Rios MD IMG CT PROCEDURES Final Result * Prepare RBC: 1 Units (10/01/2024 2:40 PM CDT) Units requested 1 Comment:Testing performed by : [address] [address] Units requested Ready SABRA Comment:Testing performed by : [address] [address] Unit Number [id number] Product code [id number] [facility] Blood Expiration Date [facility] Product Blood Type (for scanning) 5100 [facility] Product Blood Type OPOS [facility] Dispense Status DISPENSED SABRA Blood 10/01/2024 2:40 PM CDT 10/01/2024 2:39 PM CDT Lisette Loera NP BLOOD BANK PRODUCT ORDERABLES Final Result [facility] 45[address] [facility] [place] [address] * (ABNORMAL) Urinalysis reflex to microscopic and culture Urine (10/01/2024 2:02 PM CDT) Color, ur Yellow Yellow Comment:Testing performed by : [address] [address] Clarity, ur Clear Clear SABRA Comment:Testing performed by : [address] [address] Specific gravity, ur 1.014 1.003 - 1.030 SABRA Comment:Testing performed by : [address] [address] pH, urine 6.5 SABRA Comment: Interpretive Data U rine pH is affected by diet, medications, systemic acid-base disturbances, and renal tubular function. pH may affect urinary stone formation. For example, urine pH below 6.0 may help reduce the tendency for calcium phosphate stones and pH greater than 6.0 may reduce the tendency for uric acid stone formation. Source: Vargas appweevr Current Interpretive Data was last revised on 2017 Testing performed by: [facility], [address] [place] [address], [place]., [address] Protein, ur ql Negative Negative SABRA Comment:Testing performed by : [facility], [address] [place] [address], [place]., [address] Glucose, ur ql Negative Negative SABRA Comment:Testing performed by : [address], [place]., [address] Ketones, ur Negative Negative SABRA Comment:Testing performed by : [address], [place]., [address] Bilirubin, ur Negative Negative SABRA Comment:Testing performed by : [address], [place]., [address] Blood, ur Negative Negative SABRA Comment:Testing performed by : [address], [place]., [address] Urobilinogen, ur 2.0(A) <2.0 mg/dL SABRA Comment:Testing performed by : [facility], [address] [place] [address], [place]., [address] Nitrite, ur Negative Negative SABRA Comment:Testing performed by : [address], [place]., [address] Leukocyte esterase, ur Negative Negative SABRA Comment:Testing performed by : [address], [place]., [address] UA reflex comment Reflex conditions for microscopic UA and culture not met. SABRA Comment:Testing performed by : [address], [place]., [address] Urine 10/01/2024 2:02 PM CDT 10/01/2024 2:07 PM CDT us Juan A Rios MD LAB MICROBIOLOGY - GENERAL ORDERABLES Final Result SABRA PARKS 84[address] [facility] [place] [address] * (ABNORMAL) Pro B-type natriuretic peptide (10/01/2024 [...] as advanced age. - References: 1. Jocelin JL et.al. Eur Heart J. 2006:27:330-337. 2. Thomas RW, Pierce SERRANO. J. AM Omar Cardiol: Cardiovasc Imag. 2009;2: 216- 225. Interpretive Data Last Revised Date: 2017. Testing performed by: [facility], [address] [place] [address]., [address] Blood 10/01/2024 12:3 7 PM CDT 10/01/2024 12:41 PM CDT us Gretta Martinez MD LAB BLOOD ORDERABLES F inal Result [place] 8[address] [facility] [place] [address] * eGFR (10/01/2024 5:22 AM CDT) Pathologist [facility] eGFR >90 >=60 mL/min/1. 73 m2 [...] was last reviewed 2021. Testing performed by: [address] [address] Blood 10/01/2024 5:22 AM CDT 10/01/2024 6:07 AM CDT us Laurel Desir MD LAB BLOOD ORDERABLES Final Res ult SABRA 0914 [facility] [place] [address] * (ABNORMAL) Differential, auto (10/01/2024 5:22 AM CDT) Neutrophil abs 0.00(C) 1.50 - 6.50 K/cumm Comment: Critical value called within last 72 hrs Testing performed by: [address] [address] Imm gran abs 0.01 0.00 - 0.10 K/cumm SABRA PARKS Comment:Testing performed by : [address] [address] Lymphocyte abs 0.25(L) 0.80 - 3.30 K/cumm SABRA PARKS Comment:Testing performed by : [address] [address] Monocyte abs 0.01(L) 0.20 - 0.80 K/cumm [facility] Comment:Testing performed by : [address] [address] Eosinophil abs 0.00 0.00 - 0.50 K/cumm [facility] Comment:Testing performed by : [address] [address] Basophil abs 0.00 0.00 - 0.10 K/cumm [facility] Comment:Testing performed by : [address] [address] Neutrophil pct 0.0 % [facility] Comment: Differential consistent with previous result. Differential consistent with previous result. Interpretive Data Percent cell count reference ranges are not reported, since discordance with absolute values may lead to misinterpretation of CBC data. Current Interpretive Data was last revised on 2017. Testing performed by: [address] [address] Imm gran pct 3.7 % [facility] Comment: Interpretive Data Percent cell count reference ranges are not reported, since discordance with absolute values may lead to misinterpretation of CBC data. Current Interpretive Data was last revised on 2017. Testing performed by: [address] [address] Lymphocyte pct 92.6 % [facility] Comment: Interpretive Data Percent cell count reference ranges are not reported, since discordance with absolute values may lead to misinterpretation of CBC data. Current Interpretive Data was last revised on 2017. Testing performed by: [address] [address] Monocyte pct 3.7 % [facility] Comment: Interpretive Data Percent cell count reference ranges are not reported, since discordance with absolute values may lead to misinterpretation of CBC data. Current Interpretive Data was last revised on 2017. Testing performed by: [address] [address] Eosinophil pct 0.0 % [facility] Comment: Interpretive Data Percent cell count reference ranges are not reported, since discordance with absolute values may lead to misinterpretation of CBC data. Current Interpretive Data was last revised on 2017. Testing performed by: [address] [address] Basophil pct 0.0 % S[facility] PARKS Comment: Interpretive Data Percent cell count reference ranges are not reported, since discordance with absolute values may lead to misinterpretation of CBC data. Current Interpretive Data was last revised on 2017. Testing performed by: [address] [address] Blood 10/01/2024 5:22 AM CDT 10/01/2024 6:07 AM CDT us Laurel Desir MD LAB BLOOD ORDERABLES Final Res ult SABRA PARKS [facility]5 [facility] [place] [address] * (ABNORMAL) CBC with auto differential (10/01/2024 5:22 AM CDT) WBC 0.27(C) 3.80 - 9.90 K/cumm Comment: Critical value called within last 72 hrs Testing performed by: [address] [address] Hgb 7.1(L) 11.9 - 15.5 g/dL SABRA PARKS Comment:Testing performed by : [address] [address] Hct 21.2(L) 35.6 - 45.5 % [place] PARKS Comment:Testing performed by : [address] [address] Plt 54(L) 150 - 400 K/cumm SABRA PARKS Comment:Testing performed by : [address] [address] MPV 11.8 9.1 - 12.3 fL SABRA PARKS Comment:Testing performed by : [address] [address] RBC 2.26(L) 3.90 - 5.20 M/cumm SABRA PARKS Comment:Testing performed by : [address] [address] MCV 93.8 81.3 - 96.4 fL [place] PARKS Comment:Testing performed by : [address] [address] MCH 31.4 27.1 - 33.3 pg SAB[place] PARKS Comment:Testing performed by : [address] [address] MCHC 33.5 32.3 - 35.7 g/dL S[place] PARKS Comment:Testing performed by : [address] [address] RDW CV 15.8(H) 11.1 - 14.9 % SABRA Comment:Testing performed by : [address], [address] RDW SD 53.4(H) 35.7 - 48.1 fL SABRA Comment:Testing performed by : [address], [address] NRBC abs 0.00 0.00 - 0.01 K/cumm SABRA Comment:Testing performed by : [address], [address] Blood 10/01/2024 5:22 AM CDT 10/01/2024 6:07 AM CDT us Laurel Desir MD LAB BLOOD ORDERABLES Final Res ult [place] [id number] [facility] [place] [address] * (ABNORMAL) Lactate dehydrogenase (LD) (10/01/2024 5:22 AM CDT) Lactate dehydrogenase (LDH) 378(H) 100 - 250 Units/L Comment:Testing performed by : [address] [address] Blood 10/01/2024 5:22 AM CDT 10/01/2024 6:07 AM CDT us Juan A Rios MD LAB BLOOD ORDERABL ES Final Result SABRA 4500 [facility] [place] [address] * (ABNORMAL) Basic metabolic panel (10/01/2024 5:22 AM CDT) Sodium 141 135 - 145 mmol/L Comment:Testing performed by : [address] [address] Potassium, pl 3.5 3.3 - 4.9 mmol/L SABRA Comment:Testing performed by : [address] [address] Chloride 103 97 - 110 mmol/L SABRA Comment:Testing performed by : [address] [address] CO2 31 22 - 32 mmol/L SABRA Comment:Testing performed by : [address] [address] Anion gap 7 2 - 15 mmol/L SABRA Comment:Testing performed by : [address] [address] BUN 8 6 - 25 mg/dL SABRA Comment:Testing performed by : [address] [address] Creatinine 0.43(L) 0.60 - 1.10 mg/dL SABRA Comment:Testing performed by : [address] [address] Glucose 121 70 - 199 mg/dL [facility] Comment: Interpretive Data Fasting glucose >/= 126 [...] was last revised 2022. Testing performed by: [address] [address] Calcium 7.6(L) 8.5 - 10.3 mg/dL SABRA Comment:Testing performed by : [facility], [address] [place] [address]., [address] Blood 10/01/2024 5:22 AM CDT 10/01/2024 6:07 AM CDT us Laurel Desir MD LAB BLOOD ORDERABLES Final Res ult SABRA 2599 [facility] [place] [address] * TRANSTHORACIC ECHO (TTE) COMPLETE W DOPPLER/CF W CONTRAST (09/30/2024 2:00 PM CDT) Estimated EF 55% % CONS SCIMAGE Anatomical Region Laterality Modality Ultrasound 09/30/2024 1:33 PM CDT Narrative 10/03/2024 4:32 PM CDT Transthoracic Echocardiographic Report Patient Name: MEIR GARCIA : 1940 (84y 7m) Gender: F Study Date: 09/30/2024 01:33:45 PM Ht(Inch): 60 Wt(Lb): 147.99 BSA: 1.69 Bi Specialist: Nargis Longoria RDCS Location: [place] [address] Order Provider: LAUREL DESIR Heart Rate: 88 BMI: 28.9 BP: 123 / 79 Ref Provider: LAUREL DESIR PROCEDURES: Echocardiographic Report: ([id number]) Transthoracic complete echo with contrast, 2D, spectral [...] PM Ht(Inch): 60 Wt(Lb): 147.99 BSA: 1.69 Bi Specialist: Nargis Lon[facility]ria [facility] Location: [place] [address] Order Provider:LAUREL DESIR Heart Rate: 88 BMI: 28.9 BP: 123 / 79 Ref Provider: MEDAVARAM,LAUREL PROCEDURES: Echocardiographic Report: ([id number]) Transthoracic complete echo withcontrast, 2D, spectral and [...] Immature platelet fraction (09/30/2024 6:44 AM CDT) [facility] 4.3 1.6 - 10.1 % Comment:Testing performed by : [facility], [address] [place] [address]., [address] Blood 09/30/2024 6:44 AM CDT 09/30/2024 6:47 AM CDT us Laurel Desir MD LAB BLOOD ORDERABLES Final Res ult SABRA 8339 [facility] [place] [address] * (ABNORMAL) Blood smear review (09/30/2024 6:44 AM CDT) RBC morphology Consistent with RBC Indicies Comment:Testing performed by : [address] [address] Platelet estimate Decreased(A) SABRA PARKS Comment:Testing performed by : [facility], [address] [place] [address]., [address] Blood 09/30/2024 6:44 AM CDT 09/30/2024 6:47 AM CDT us Laurel Desir MD LAB BLOOD ORDERABLES Final Res ult SABRA PARKS 08[address] [facility] [place] [address] * eGFR (09/30/2024 6:44 AM [...] was last reviewed 2021. Testing performed by: [facility], [address] [place] [address]., [address] Blood 09/30/2024 6:44 AM CDT 09/30/2024 6:47 AM CDT us Laurel Desir MD LAB BLOOD ORDERABLES Final Res ult SABRA 6096 [facility] [place] [address] * (ABNORMAL) Differential, auto (09/30/2024 6:44 AM CDT) Neutrophil abs 0.02(C) 1.50 - 6.50 K/cumm Comment: Critical value called within last 72 hrs Testing performed by: [address] [address] Imm gran abs 0.00 0.00 - 0.10 K/cumm SABRA Comment:Testing performed by : [address] [address] Lymphocyte abs 0.36(L) 0.80 - 3.30 K/cumm SABRA Comment:Testing performed by : [address] [address] Monocyte abs 0.00(L) 0.20 - 0.80 K/cumm SABRA Comment:Testing performed by : [address] [address] Eosinophil abs 0.00 0.00 - 0.50 K/cumm [facility] Comment:Testing performed by : [address] [address] Basophil abs 0.00 0.00 - 0.10 K/cumm [facility] Comment:Testing performed by : [address] [address] Neutrophil pct 5.3 % SABRA Comment: Differential consistent with previous result. Differential consistent with previous result. Interpretive Data Percent cell count reference ranges are not reported, since discordance with absolute values may lead to misinterpretation of CBC data. Current Interpretive Data was last revised on 2017. Testing performed by: [address] [address] Imm gran pct 0.0 % SABRA Comment: Interpretive Data Percent cell count reference ranges are not reported, since discordance with absolute values may lead to misinterpretation of CBC data. Current Interpretive Data was last revised on 2017. Testing performed by: [address] [address] Lymphocyte pct 94.7 % [facility] Comment: Interpretive Data Percent cell count reference ranges are not reported, since discordance with absolute values may lead to misinterpretation of CBC data. Current Interpretive Data was last revised on 2017. Testing performed by: [address] [address] Monocyte pct 0.0 % [facility] Comment: Interpretive Data Percent cell count reference ranges are not reported, since discordance with absolute values may lead to misinterpretation of CBC data. Current Interpretive Data was last revised on 2017. Testing performed by: [address] [address] Eosinophil pct 0.0 % [facility] Comment: Interpretive Data Percent cell count reference ranges are not reported, since discordance with absolute values may lead to misinterpretation of CBC data. Current Interpretive Data was last revised on 2017. Testing performed by: [address] [address] Basophil pct 0.0 % [facility] Comment: Interpretive Data Percent cell count reference ranges are not reported, since discordance with absolute values may lead to misinterpretation of CBC data. Current Interpretive Data was last revised on 2017. Testing performed by: [address] [address] Blood 09/30/2024 6:44 AM CDT 09/30/2024 6:47 AM CDT us Laurel Desir MD LAB BLOOD ORDERABLES Final Res ult SABRA 6854 [facility] [place] [address] * (ABNORMAL) CBC with auto differential (09/30/2024 6:44 AM CDT) WBC 0.38(C) 3.80 - 9.90 K/cumm Comment: Critical value called within last 72 hrs Testing performed by: [address] [address] Hgb 7.5(L) 11.9 - 15.5 g/dL SABRA Comment:Testing performed by : [address] [address] Hct 22.0(L) 35.6 - 45.5 % SABRA Comment:Testing performed by : [address] [address] Plt 49(C) 150 - 400 K/cumm SABRA Comment: Platelet count confirmed by additional testing. Critical platelet count threshold determined by patient location: Outpatient:<50 K/cumm , Inpatient adults:<20 K/cumm , Inpatient pediatric:<25 K/cumm, BMT service:<10 K/cumm Testing performed by: [address] [address] MPV 10.4 9.1 - 12.3 fL SABRA Comment:Testing performed by : [address] [address] RBC 2.39(L) 3.90 - 5.20 M/cumm SABRA Comment:Testing performed by : [address] [address] MCV 92.1 81.3 - 96.4 fL SABRA Comment:Testing performed by : [address] [address] MCH 31.4 27.1 - 33.3 pg SABRA Comment:Testing performed by : [address] [address] MCHC 34.1 32.3 - 35.7 g/dL SABRA Comment:Testing performed by : [address] [address] RDW CV 15.6(H) 11.1 - 14.9 % SABRA Comment:Testing performed by : [address] [address] RDW SD 51.9(H) 35.7 - 48.1 fL SABRA Comment:Testing performed by : [address] [address] NRBC abs 0.00 0.00 - 0.01 K/cumm SABRA Comment:Testing performed by : [address] [address] Blood 09/30/2024 6:44 AM CDT 09/30/2024 6:47 AM CDT us Laurel Desir MD LAB BLOOD ORDERABLES Edited Re sult - Final SABRA 66[address] [facility] [place] [address] * (ABNORMAL) Basic metabolic panel (09/30/2024 6:44 AM CDT) Sodium 139 135 - 145 mmol/L Comment:Testing performed by : [address] [address] Potassium, pl 3.7 3.3 - 4.9 mmol/L SABRA Comment:Testing performed by : [address] [address] Chloride 103 97 - 110 mmol/L SABRA Comment:Testing performed by : [address] [address] CO2 30 22 - 32 mmol/L SABRA Comment:Testing performed by : [address] [address] Anion gap 6 2 - 15 mmol/L SABRA Comment:Testing performed by : [address] [address] BUN 9 6 - 25 mg/dL SABRA Comment:Testing performed by : [address] [address] Creatinine 0.49(L) 0.60 - 1.10 mg/dL SABRA Comment:Testing performed by : [address] [address] Glucose 128 70 - 199 mg/dL SABRA [...] was last revised 2022. Testing performed by: [address] [address] Calcium 7.8(L) 8.5 - 10.3 mg/dL SABRA PARKS Comment:Testing performed by : [address] [address] Blood 09/30/2024 6:44 AM CDT 09/30/2024 6:47 AM CDT us Laurel Desir MD LAB BLOOD ORDERABLES Final Res ult Performing Organization Address [facility] de Phone Number SABRA [address] [facility] [place] [address] * (ABNORMAL) Troponin T high-sensitivity 6-hour (09/29/2024 2:57 PM CDT) Trop T hs 62(H) <=14 ng/L Comment: Interpretive Data For further hscTnT resources including the diagnostic algorithm and an aid in interpretation, copy and paste this link: https://nrl.testcatalog.org/show/hsTrop Current Interpretive Data last revised 2020. Testing performed by: [address] [address] Trop T hs delta -2 ng/L SABRA PARKS Comment:Testing performed by : [address] [address] Trop T hs interp Insignificant SABRA PARKS Comment:Testing performed by : [address] [address] Blood 09/29/2024 2:57 PM CDT 09/29/2024 3:09 PM CDT us Lee Gordon DO LAB BLOOD ORDERABLES Final Resul t Performing Organization Address [facility] de Phone Number SABRA [address] [facility] [place] [address] * (ABNORMAL) Troponin T high-sensitivity 4-hour (09/29/2024 12:38 PM CDT) Trop T hs 67(H) <=14 ng/L Comment: Interpretive Data For further hscTnT resources including the diagnostic algorithm and an aid in interpretation, copy and paste this link: https://nrl.[employer].org/show/hsTrop Current Interpretive Data last revised 2020. Testing performed by: [address] [address] Trop T hs delta 3 ng/L SABRA PARKS Comment:Testing performed by : [address] [address] Trop T hs interp Insignificant SABRA Comment:Testing performed by : [address] [address] Blood 09/29/2024 12:3 8 PM CDT 09/29/2024 12:43 PM CDT us Lee Gordon DO LAB BLOOD ORDERABLES Final Resul t Performing Organization Address [facility] de Phone Number SABRA [address] [place] [address] * (ABNORMAL) Troponin T high-sensitivity 2-hour (09/29/2024 10:44 AM CDT) Trop T hs 65(H) <=14 ng/L Comment: Interpretive Data For further hscTnT resources including the diagnostic algorithm and an aid in interpretation, copy and paste this link: https://nrl.[employer].org/show/hsTrop Current Interpretive Data last revised 2020. Testing performed by: [address] [address] Trop T hs delta 1 ng/L SABRA Comment:Testing performed by : [address] [address] Trop T hs interp Insignificant CERNER MH Comment:Testing performed by : [address] [address] Blood 09/29/2024 10:4 4 AM CDT 09/29/2024 10:59 AM CDT Lee Gordon DO LAB BLOOD ORDERABLES Final Resul t Performing Organization Address [facility] Co de Phone Number SABRA [address] [facility] [place] [address] * (ABNORMAL) Troponin T high-sensitivity 6-hour (09/29/2024 8:11 AM CDT) Trop T hs 68(H) <=14 ng/L Comment: Interpretive Data For further hscTnT resources including the diagnostic algorithm and an aid in interpretation, copy and paste this link: https://nrl.testcatalog.org/show/hsTrop Current Interpretive Data last revised 2020. Testing performed by: [address] [address] Trop T hs delta See Comment ng/L SABRA PARKS Comment: Inappropriate collection time to report a delta. Testing performed by: [address] [address] Trop T hs pct delta See Comment % SABRA PARKS Comment: Inappropriate collection time to report a delta. Testing performed by: [address] [address] Trop T hs interp See Comment SABRA Comment: Inappropriate collection time to report a delta. Testing performed by: [address] [address] Blood 09/29/2024 8:11 AM CDT 09/29/2024 9:04 AM CDT Philip Bran MD LAB BLOOD ORDERABLES Aylin l Result Performing Organization Address City/[facility]/ZIP Co de Phone Number [facility] [address] [facility] [place] [address] * (ABNORMAL) Troponin T high-sensitivity series (baseline, 2hr, 4hr, 6hr) (09/29/2024 8:11 AM CDT) Trop T hs 64(H) <=14 ng/L Comment: Interpretive Data For further hscTnT resources including the diagnostic algorithm and an aid in interpretation, copy and paste this link: https://nrl.testcatalog.org/show/hsTrop Current Interpretive Data last revised 2020. Testing performed by: [facility], [address] [place] [address]., [address] Blood 09/29/2024 8:11 AM CDT 09/29/2024 9:04 AM CDT us Lee Gordon DO LAB BLOOD ORDERABLES Final Resul t Performing Organization Address [facility] Co de Phone Number SABRA [facility] [place] [place] [address] * Blood smear review (09/29/2024 8:11 AM CDT) Pathologist [facility] RBC morphology Consistent with RBC Indicies Comment:Testing performed by : [facility], [address] [place] [address]., [address] Platelet estimate Automated Count Confirmed SABRA Comment:Testing performed by : [facility], [address] [place] [address]., [address] Blood 09/29/2024 8:11 AM CDT 09/29/2024 9:04 AM CDT us Laurel Desir MD LAB BLOOD ORDERABLES Final Res ult Performing Organization Address City/[facility]/ZIP Co de Phone Number [facility] [address] [facility] [place] [address] * eGFR (09/29/2024 8:11 AM CDT) Pathologist [facility] eGFR >90 >=60 mL/min/1. 73 m2 [...] was last reviewed 2021. Testing performed by: [address] [address] Blood 09/29/2024 8:11 AM CDT 09/29/2024 9:04 AM CDT Lee Gordon DO LAB BLOOD ORDERABLES Final Resul t [facility] [address] [facility] [place] [address] * (ABNORMAL) Differential, auto (09/29/2024 8:11 AM CDT) Neutrophil abs 0.02(C) 1.50 - 6.50 K/cumm Comment: Critical value called within last 72 hrs Testing performed by: [address] [address] Imm gran abs 0.00 0.00 - 0.10 K/cumm SABRA Comment:Testing performed by : [address] [address] Lymphocyte abs 0.29(L) 0.80 - 3.30 K/cumm SABRA Comment:Testing performed by : [address] [address] Monocyte abs 0.00(L) 0.20 - 0.80 K/cumm SABRA Comment:Testing performed by : [address] [address] Eosinophil abs 0.00 0.00 - 0.50 K/cumm [facility] Comment:Testing performed by : [address] [address] Basophil abs 0.00 0.00 - 0.10 K/cumm [facility] Comment:Testing performed by : [address] [address] Neutrophil pct 6.5 % [facility] Comment: Differential consistent with previous result. Interpretive Data Percent cell count reference ranges are not reported, since discordance with absolute values may lead to misinterpretation of CBC data. Current Interpretive Data was last revised on 2017. Testing performed by: [address] [address] Imm gran pct 0.0 % [facility] Comment: Interpretive Data Percent cell count reference ranges are not reported, since discordance with absolute values may lead to misinterpretation of CBC data. Current Interpretive Data was last revised on 2017. Testing performed by: [address] [address] Lymphocyte pct 93.5 % [facility] Comment: Interpretive Data Percent cell count reference ranges are not reported, since discordance with absolute values may lead to misinterpretation of CBC data. Current Interpretive Data was last revised on 2017. Testing performed by: [address] [address] Monocyte pct 0.0 % [facility] Comment: Interpretive Data Percent cell count reference ranges are not reported, since discordance with absolute values may lead to misinterpretation of CBC data. Current Interpretive Data was last revised on 2017. Testing performed by: [address] [address] Eosinophil pct 0.0 % [facility] Comment: Interpretive Data Percent cell count reference ranges are not reported, since discordance with absolute values may lead to misinterpretation of CBC data. Current Interpretive Data was last revised on 2017. Testing performed by: [address] [address] Basophil pct 0.0 % [facility] Comment: Interpretive Data Percent cell count reference ranges are not reported, since discordance with absolute values may lead to misinterpretation of CBC data. Current Interpretive Data was last revised on 2017. Testing performed by: [address] [address] Blood 09/29/2024 8:11 AM CDT 09/29/2024 9:04 AM CDT us Laurel Desir MD LAB BLOOD ORDERABLES Final Res ult SABRA [address] [facility] [place] [address] * (ABNORMAL) CBC with auto differential (09/29/2024 8:11 AM CDT) WBC 0.31(C) 3.80 - 9.90 K/cumm Comment: Critical value called within last 72 hrs Testing performed by: [address] [address] Hgb 7.5(L) 11.9 - 15.5 g/dL SABRA Comment:Testing performed by : [address] [address] Hct 21.6(L) 35.6 - 45.5 % SABRA Comment:Testing performed by : [address] [address] Plt 55(L) 150 - 400 K/cumm SABRA Comment:Testing performed by : [address] [address] MPV 10.8 9.1 - 12.3 fL SABRA Comment:Testing performed by : [address] [address] RBC 2.38(L) 3.90 - 5.20 M/cumm SABRA Comment:Testing performed by : [address] [address] MCV 90.8 81.3 - 96.4 fL SABRA Comment:Testing performed by : [address] [address] MCH 31.5 27.1 - 33.3 pg SABRA PARKS Comment:Testing performed by : [facility], [address] [place] [address]., [address] MCHC 34.7 32.3 - 35.7 g/dL SABRA PARKS Comment:Testing performed by : [address] [address] RDW CV 15.5(H) 11.1 - 14.9 % SABRA PARKS Comment:Testing performed by : [address], [address] RDW SD 50.6(H) 35.7 - 48.1 fL SABRA PARKS Comment:Testing performed by : [address] [address] NRBC abs 0.00 0.00 - 0.01 K/cumm SABRA PARKS Comment:Testing performed by : [address], [address] Blood 09/29/2024 8:11 AM CDT 09/29/2024 9:04 AM CDT us Laurel Desir MD LAB BLOOD ORDERABLES Edited Re sult - Final Performing Organization Address City/[facility]/ZIP Co de Phone Number [address] [place] [employer] [place] [address] * Magnesium (09/29/2024 8:11 AM CDT) Magnesium 2.0 1.4 - 2.5 mg/dL Comment:Testing performed by : [address], [address] Blood 09/29/2024 8:11 AM CDT 09/29/2024 9:04 AM CDT us Lee Gordon DO LAB BLOOD ORDERABLES Final Resul t [address] [place] [address] * (ABNORMAL) Basic metabolic panel (09/29/2024 8:11 AM CDT) Sodium 143 135 - 145 mmol/L Comment:Testing performed by : [address] [address] Potassium, pl 3.2(L) 3.3 - 4.9 mmol/L [facility] Comment:Testing performed by : [address], [place]., [address] Chloride 106 97 - 110 mmol/L [facility] Comment:Testing performed by : [address], [place]., [address] CO2 27 22 - 32 mmol/L [facility] Comment:Testing performed by : [address], [place]., [address] Anion gap 10 2 - 15 mmol/L [facility] Comment:Testing performed by : [address], [place]., [address] BUN 11 6 - 25 mg/dL [facility] Comment:Testing performed by : [address], [place]., [address] Creatinine 0.51(L) 0.60 - 1.10 mg/dL [facility] Comment:Testing performed by : [address], [place]., [address] Glucose 129 70 - 199 mg/dL [facility] Comment: Interpretive Data Fasting glucose >/= 126 [...] was last revised 2022. Testing performed by: [address] [address] Calcium 7.1(L) 8.5 - 10.3 mg/dL [facility] Comment:Testing performed by : [address], [place]., [address] Blood 09/29/2024 8:11 AM CDT 09/29/2024 9:04 AM CDT us Lee Gordon DO LAB BLOOD ORDERABLES Final Resul t SABRA [address] [place] [address] * Transfuse RBC (09/29/2024 6:17 AM CDT) Blood us Laurel Desir MD BLOOD TRANSFUSION ORDERABLES F inal Result Performing Organization Address City/[facility]/ZIP Co de Phone Number SABRA [address] [place] [address] * (ABNORMAL) Troponin T high-sensitivity 4-hour (09/29/2024 5:24 AM CDT) Trop T hs 65(H) <=14 ng/L Comment: Interpretive Data For further hscTnT resources including the diagnostic algorithm and an aid in interpretation, copy and paste this link: https://nrl.testcatalog.org/show/hsTrop Current Interpretive Data last revised 2020. Testing performed by: [address] [address] Trop T hs delta 29(C) ng/L SABRA PARKS Comment: Critical Result called to and read back by [email or web address], DATE: 2024-09-29 06:12:26 BY: [id number] Testing performed by: [address] [address] Trop T hs interp Significa nt(C) SABRA Comment: Critical Result called to and read back by [email or web address], DATE: 2024-09-29 06:12:26 BY: [email or web address] Testing performed by: [address] [address] Blood 09/29/2024 5:24 AM CDT 09/29/2024 5:30 AM CDT us Philip Bran MD LAB BLOOD ORDERABLES Aylin l Result Performing Organization Address [facility] Co de Phone Number SABRA [address] [employer] [place], [place] [id number] * eGFR (09/29/2024 5:24 AM CDT) eGFR [...] was last reviewed 2021. Testing performed by: [address] [address] Blood 09/29/2024 5:24 AM CDT 09/29/2024 5:28 AM CDT us Laurel Desir MD LAB BLOOD ORDERABLES Final Res ult Performing Organization Address [facility] Co de Phone Number SABRA [facility] [place] [place] [address] * (ABNORMAL) Hepatic function panel (09/29/2024 5:24 AM CDT) Bilirubin, total 1.3(H) 0.1 - 1.2 mg/dL Comment:Testing performed by : [address] [address] Bilirubin, direct 0.6(H) 0.1 - 0.3 mg/dL SABRA PARKS Comment:Testing performed by : [address] [address] Protein, pl 6.1(L) 6.5 - 8.5 g/dL SABRA PARKS Comment:Testing performed by : [address], [place]., [address] Albumin 3.5 3.5 - 5.0 g/dL SABRA Comment:Testing performed by : [address] [address] Alk phos 40 40 - 130 Units/L SABRA Comment:Testing performed by : [address] [address] ALT 31 7 - 45 Units/L SABRA Comment:Testing performed by : [address] [address] AST 22 10 - 45 Units/L SABRA Comment:Testing performed by : [address] [address] Blood 09/29/2024 5:24 AM CDT 09/29/2024 5:28 AM CDT us Jackie Williamson MD LAB BLOOD ORDERABLES F inal Result SABRA [address] [facility] [place] [address] * (ABNORMAL) Basic metabolic panel (09/29/2024 5:24 AM CDT) Sodium 139 135 - 145 mmol/L Comment:Testing performed by : [address] [address] Potassium, pl 3.3 3.3 - 4.9 mmol/L SABRA PARKS Comment:Testing performed by : [address] [address] Chloride 103 97 - 110 mmol/L SABRA Comment:Testing performed by : [address] [address] CO2 28 22 - 32 mmol/L SABRA PARKS Comment:Testing performed by : [address] [address] Anion gap 8 2 - 15 mmol/L SABRA Comment:Testing performed by : [address] [address] BUN 12 6 - 25 mg/dL SABRA Comment:Testing performed by : [address] [address] Creatinine 0.56(L) 0.60 - 1.10 mg/dL SABRA Comment:Testing performed by : [address] [address] Glucose 140 70 - 199 mg/dL SABRA [...] was last revised 2022. Testing performed by: [address] [address] Calcium 7.3(L) 8.5 - 10.3 mg/dL SABRA Comment:Testing performed by : [address] [address] Blood 09/29/2024 5:24 AM CDT 09/29/2024 5:28 AM CDT us Laurel Desir MD LAB BLOOD ORDERABLES Final Res ult SABRA [address] [facility] [place] [address] * (ABNORMAL) Troponin T high-sensitivity 2-hour (09/29/2024 3:05 AM CDT) Trop T hs 73(H) <=14 ng/L Comment: Interpretive Data For further hscTnT resources including the diagnostic algorithm and an aid in interpretation, copy and paste this link: https://nrl.testcatThe Association of [employer].org/show/hsTrop Current Interpretive Data last revised 2020. Testing performed by: [address] [address] Trop T hs delta 37(C) ng/L SABRA Comment: Critical Result called to and read back by [email or web address], DATE: 2024-09-29 03:55:56 BY: [id number] Testing performed by: [address] [address] Trop T hs interp Significa nt(C) SABRA Comment: Critical Result called to and read back by [email or web address], DATE: 2024-09-29 03:55:56 BY: [id number] Testing performed by: [address] [address] Blood 09/29/2024 3:05 AM CDT 09/29/2024 3:14 AM CDT us Philip Bran MD LAB BLOOD ORDERABLES Aylin l Result SABRA [address] [facility] [place] [address] * (ABNORMAL) Troponin T high-sensitivity series (baseline, 2hr, 4hr, 6hr) (09/29/2024 1:09 AM CDT) Trop T hs 36(H) <=14 ng/L Comment: Interpretive Data For further hscTnT resources including the diagnostic algorithm and an aid in interpretation, copy and paste this link: https://nrl.testcatThe Association of [employer].org/show/hsTrop Current Interpretive Data last revised 2020. Testing performed by: [address] [address] Blood 09/29/2024 1:09 AM CDT 09/29/2024 1:28 AM CDT us Philip Bran MD LAB BLOOD ORDERABLES Aylin l Result Performing Organization Address [facility] Co de Phone Number SABRA [address] [place] [place], [place] [id number] * eGFR (09/29/2024 1:09 AM CDT) eGFR [...] was last reviewed 2021. Testing performed by: [address] [address] Blood 09/29/2024 1:09 AM CDT 09/29/2024 1:28 AM CDT us Philip Bran MD LAB BLOOD ORDERABLES Aylin l Result Performing Organization Address City/[facility]/ZIP Co de Phone Number SABRA [facility] [place] [place] [address] * (ABNORMAL) Differential, auto (09/29/2024 1:09 AM CDT) Neutrophil abs 0.02(C) 1.50 - 6.50 K/cumm Comment: Critical value called within last 72 hrs Testing performed by: [address] [address] Imm gran abs 0.00 0.00 - 0.10 K/cumm [facility] Comment:Testing performed by : [address] [address] Lymphocyte abs 0.26(L) 0.80 - 3.30 K/cumm [facility] Comment:Testing performed by : [address] [address] Monocyte abs 0.00(L) 0.20 - 0.80 K/cumm [facility] Comment:Testing performed by : [address], [place]., [address] Eosinophil abs 0.00 0.00 - 0.50 K/cumm [facility] Comment:Testing performed by : [address] [address] Basophil abs 0.00 0.00 - 0.10 K/cumm [facility] Comment:Testing performed by : [address] [address] Neutrophil pct 7.1 % [facility] Comment: Interpretive Data Percent cell count reference ranges are not reported, since discordance with absolute values may lead to misinterpretation of CBC data. Current Interpretive Data was last revised on 2017. Testing performed by: [address] [address] Imm gran pct 0.0 % [facility] Comment: Interpretive Data Percent cell count reference ranges are not reported, since discordance with absolute values may lead to misinterpretation of CBC data. Current Interpretive Data was last revised on 2017. Testing performed by: [address] [address] Lymphocyte pct 92.9 % [facility] Comment: Interpretive Data Percent cell count reference ranges are not reported, since discordance with absolute values may lead to misinterpretation of CBC data. Current Interpretive Data was last revised on 2017. Testing performed by: [address] [address] Monocyte pct 0.0 % [facility] Comment: Interpretive Data Percent cell count reference ranges are not reported, since discordance with absolute values may lead to misinterpretation of CBC data. Current Interpretive Data was last revised on 2017. Testing performed by: [address] [address] Eosinophil pct 0.0 % SABRA Comment: Interpretive Data Percent cell count reference ranges are not reported, since discordance with absolute values may lead to misinterpretation of CBC data. Current Interpretive Data was last revised on 2017. Testing performed by: [address] [address] Basophil pct 0.0 % SABRA Comment: Interpretive Data Percent cell count reference ranges are not reported, since discordance with absolute values may lead to misinterpretation of CBC data. Current Interpretive Data was last revised on 2017. Testing performed by: [address] [address] Blood 09/29/2024 1:09 AM CDT 09/29/2024 1:16 AM CDT us Laurel Desir MD LAB BLOOD ORDERABLES Final Res ult Performing Organization Address City/[facility] Co de Phone Number [address] [place] [address] * ABO / Rh Confirmation Testing (09/29/2024 1:09 AM CDT) Pathologist [facility] ABO/Rh Confirmation O Positive [facility] Comment:Testing performed by : [address] [address] Blood 09/29/2024 1:09 AM CDT 09/29/2024 1:16 AM CDT us Laurel Desir MD LAB BLOOD ORDERABLES Final Res ult [address] [place] [address] [facility] * (ABNORMAL) Pro B-type natriuretic peptide [...] Eur Heart J. 2006:27:330-337. 2. Thomas RW, Pelayo AM. J. AM Omar Cardiol: Cardiovasc Imag. 2009;2: 216- 225. Interpretive Data Last Revised Date: 2017. Testing performed by: [address] [address] Blood 09/29/2024 1:09 AM CDT 09/29/2024 1:28 AM CDT us Philip Bran MD LAB BLOOD ORDERABLES Aylin freedman Result AMYYWU [address] [facility] [place] [address] * (ABNORMAL) CBC with auto differential (09/29/2024 1:09 AM CDT) WBC 0.28(C) 3.80 - 9.90 K/cumm Comment: Critical value called within last 72 hrs Testing performed by: [address] [address] Hgb 5.7(C) 11.9 - 15.5 g/dL SABRA Comment: This result has been called to [id number] by [email or web address] on 09/29/2024 01:35:24, and has not been read back. Testing performed by: [address] [address] Hct 16.5(L) 35.6 - 45.5 % SABRA Comment:Testing performed by : [address] [address] Plt 62(L) 150 - 400 K/cumm SABRA Comment:Testing performed by : [address], [address] MPV 10.3 9.1 - 12.3 fL SABRA Comment:Testing performed by : [address], [address] RBC 1.77(L) 3.90 - 5.20 M/cumm SABRA Comment:Testing performed by : [address], [address] MCV 93.2 81.3 - 96.4 fL SBARA Comment:Testing performed by : [address] [address] MCH 32.2 27.1 - 33.3 pg SABRA Comment:Testing performed by : [address], [address] MCHC 34.5 32.3 - 35.7 g/dL SABRA Comment:Testing performed by : [address], [address] RDW CV 15.1(H) 11.1 - 14.9 % SABRA Comment:Testing performed by : [address], [address] RDW SD 50.9(H) 35.7 - 48.1 fL SABRA Comment:Testing performed by : [address] [address] NRBC abs 0.00 0.00 - 0.01 K/cumm SABRA PARKS Comment:Testing performed by : [facility], [address] [place] [address]., [address] Morphologic Screen Results confirmed by manual morphology review. SABRA PARKS Comment:Testing performed by : [facility], [address] [place] [address]., [address] Blood 09/29/2024 1:09 AM CDT 09/29/2024 1:16 AM CDT Laurel Desir MD LAB BLOOD ORDERABLES Final Res ult SABRA PARKS [address] [facility] [place] [address] * Blood culture Blood (09/29/2024 1:09 AM CDT) Report Final Report: No growth Comment:Testing performed by : [facility], [address] [place] [address] Blood 09/29/2024 1:09 AM CDT 09/29/2024 5:34 [...] performance characteristics have been verified by the [facility] Microbiology Laboratory. For questions about this culture, contact the Microbiology Laboratory at [phone]. Interpretive data was last revised on 24. us Laurel Desir MD LAB MICROBIOLOGY - GENERAL ORD ERABLES Final Result Performing Organization Address City/[facility] Co de Phone Number SABRA [address] [address] * Magnesium (09/29/2024 1:09 AM CDT) Pathologist [facility] Magnesium 2.0 1.4 - 2.5 mg/dL Comment:Testing performed by : [address] [address] Blood 09/29/2024 1:09 AM CDT 09/29/2024 1:28 AM CDT us Philip Bran MD LAB BLOOD ORDERABLES Aylin l Result Performing Organization Address City/[facility] Co de Phone Number [address] [place] [address] * (ABNORMAL) Basic metabolic panel (09/29/2024 1:09 AM CDT) [facility] Sodium 138 135 - 145 mmol/L Comment:Testing performed by : [address] [address] Potassium, pl 3.4 3.3 - 4.9 mmol/L SABRA Comment:Testing performed by : [address] [address] Chloride 103 97 - 110 mmol/L SABRA Comment:Testing performed by : [address] [address] CO2 25 22 - 32 mmol/L SABRA Comment:Testing performed by : [address] [address] Anion gap 10 2 - 15 mmol/L SABRA Comment:Testing performed by : [address] [address] BUN 13 6 - 25 mg/dL SABRA Comment:Testing performed by : [address] [address] Creatinine 0.58(L) 0.60 - 1.10 mg/dL SABRA Comment:Testing performed by : [address] [address] Glucose 178 70 - 199 mg/dL SABRA [...] was last revised 2022. Testing performed by: [address] [address] Calcium 7.5(L) 8.5 - 10.3 mg/dL SABRA Comment:Testing performed by : [address] [address] Blood 09/29/2024 1:09 AM CDT 09/29/2024 1:28 AM CDT us Philip Bran MD LAB BLOOD ORDERABLES Aylin l Result [facility] [address] [facility] [place] [address] * XR Chest 1 View (09/29/2024 12:41 [...] Lee Lee M.D. KT: FABI Report ID: [id number] Reading Location: [id number] Procedure Note Lee Lee MD - 09/29/2024 [...] Lee Lee M.D. KT: FABI Report ID: [id number] Reading Location: [place] [address] Laurel Desir MD IMG XR PROCEDURES Final Result * ECG 12 lead (09/29/2024 12:29 AM CDT) Ventricular Rate EKG/Min 101 BPM [facility] Atrial Rate 101 BPM [facility] DE-Interval (MSEC) 186 ms [facility] QRS-Interval (MSEC) 106 ms [facility] QT-Interval (MSEC) 342 ms [facility] QTc 443 ms [facility] P [place] 33 degrees [facility] R [place] 25 degrees [facility] T [place] 71 degrees [facility] Diagnosis Sinus tachycardia Nonspecific ST abnormality Abnormal ECG No previous ECGs available Confirmed by HALEY EDWARDS M.D. ([id number]) on 09/29/2024 5:13:52 PM [facility] 09/29/2024 12:2 9 AM CDT 09/29/2024 5:13 PM CDT us Philip Bran MD ECG ORDERABLES Final Res ult Performing Organization Address [facility]/ZIP Co de Phone Number [facility] * ABO/Rh (09/29/2024 12:06 AM CDT) ABO/Rh O Positive Comment:Testing performed by : [facility], [address] [place] [address]., [address] Blood 09/29/2024 12:0 6 AM CDT 09/29/2024 12:40 AM CDT [facility]ative [facility] 09/29/2024 1:21 AM CDT Has the patient had Daratumumab or Isatuximab in the past 6 months?->Unknown Laurel Desir MD LAB BLOOD BANK TEST ORDERABLES Final Result Performing Organization Address [facility] de Phone Number [place] [phone] [facility] [place] [place] [address] * Crossmatch (09/29/2024 12:06 AM CDT) Crossmatch Compatible [facility] Unit number for crossmatch [id number] [facility] Crossmatch Compatible [facility] Unit number for crossmatch [id number] [facility] Blood 09/29/2024 12:0 6 AM CDT 09/29/2024 12:40 AM CDT Philip Bran MD LAB BLOOD BANK TEST ORDER LAITH Edited Result - Final Performing Organization Address [facility] Co de Phone Number [address] [place] [address] * Antibody screen (09/29/2024 12:06 AM CDT) Rivera, indirect, Gel Interpretation Negative ABSC Comment:Testing performed by : [address] [address] Blood 09/29/2024 12:0 6 AM CDT 09/29/2024 12:40 AM CDT Narrative [facility] - 09/29/2024 1:21 AM CDT Has the patient had Daratumumab or Isatuximab in the past 6 months?->Unknown Laurel Desir MD LAB BLOOD BANK TEST ORDERABLES Final Result Performing Organization Address City/[facility] Co de Phone Number [facility] [place] [place] [address] * Prepare RBC: 1 Units (09/28/2024 11:37 PM CDT) Units requested 1 Comment:Testing performed by : [facility], [address] [place] [address]., [address] Units requested Ready [facility] Comment:Testing performed by : [address] [address] Unit Number [id number] Product code [id number] [facility] Blood Expiration Date 547724620705 [facility] Product Blood Type (for scanning) 5100 [facility] Product Blood Type OPOS [facility] Dispense Status DISPENSED [facility] Blood 09/28/2024 11:3 7 PM CDT 09/28/2024 11:37 PM CDT Laurel Desir MD BLOOD BANK PRODUCT ORDERABLES Final Result SABRA [address] [facility] [employer] [place], [place] [id number] * Urine culture Urine, clean voided (09/28/2024 11:20 PM CDT) Report Final Report: No growth Comment:Testing performed by : [facility], [address] [place]., [address] Urine, clean voided 09/28/2024 11:20 PM CDT 09/29/2024 2:26 AM CDT Narrative SABRA KASEY - 09/30/2024 7:05 AM CDT Indications for Culture:->Recent positive UA Testing performed by [facility] Microbiology Laboratory ([phone]) Laurel Desir MD LAB MICROBIOLOGY - GENERAL ORD ERABLES Final Result SABRA [address] [facility] [place] [address] * (ABNORMAL) Differential, auto (09/28/2024 10:39 PM CDT) Neutrophil abs 0.02(C) 1.50 - 6.50 K/cumm Comment: This result has been called to [id number] by [email or web address] on 09/28/2024 23:03:50, and has been read back. Testing performed by: [address] [address] Imm gran abs 0.00 0.00 - 0.10 K/cumm SABRA Comment:Testing performed by : [address] [address] Lymphocyte abs 0.62(L) 0.80 - 3.30 K/cumm SABRA Comment:Testing performed by : [address] [address] Monocyte abs 0.01(L) 0.20 - 0.80 K/cumm SABRA Comment:Testing performed by : [address] [address] Eosinophil abs 0.00 0.00 - 0.50 K/cumm SABRA Comment:Testing performed by : [address] [address] Basophil abs 0.00 0.00 - 0.10 K/cumm SABRA Comment:Testing performed by : [address] [address] Neutrophil pct 3.1 % [facility] Comment: Interpretive Data Percent cell count reference ranges are not reported, since discordance with absolute values may lead to misinterpretation of CBC data. Current Interpretive Data was last revised on 2017. Testing performed by: [address] [address] Imm gran pct 0.0 % [facility] Comment: Interpretive Data Percent cell count reference ranges are not reported, since discordance with absolute values may lead to misinterpretation of CBC data. Current Interpretive Data was last revised on 2017. Testing performed by: [address] [address] Lymphocyte pct 95.4 % [facility] Comment: Interpretive Data Percent cell count reference ranges are not reported, since discordance with absolute values may lead to misinterpretation of CBC data. Current Interpretive Data was last revised on 2017. Testing performed by: [address] [address] Monocyte pct 1.5 % [facility] Comment: Interpretive Data Percent cell count reference ranges are not reported, since discordance with absolute values may lead to misinterpretation of CBC data. Current Interpretive Data was last revised on 2017. Testing performed by: [address] [address] Eosinophil pct 0.0 % [facility] Comment: Interpretive Data Percent cell count reference ranges are not reported, since discordance with absolute values may lead to misinterpretation of CBC data. Current Interpretive Data was last revised on 2017. Testing performed by: [address] [address] Basophil pct 0.0 % [facility] Comment: Interpretive Data Percent cell count reference ranges are not reported, since discordance with absolute values may lead to misinterpretation of CBC data. Current Interpretive Data was last revised on 2017. Testing performed by: [address] [address] Blood 09/28/2024 10:3 9 PM CDT 09/28/2024 10:49 PM CDT us Laurel Desir MD LAB BLOOD ORDERABLES Final Res ult SABRA [address] [facility] [place], [place] [id number] * (ABNORMAL) CBC with auto differential (09/28/2024 10:39 PM CDT) WBC 0.65(C) 3.80 - 9.90 K/cumm Comment: This result has been called to [id number] by [id number] on 09/28/2024 23:03:50, and has been read back. Testing performed by: [address] [address] Hgb 6.5(L) 11.9 - 15.5 g/dL SABRA Comment:Testing performed by : [address] [address] Hct 19.1(L) 35.6 - 45.5 % SABRA Comment:Testing performed by : [address] [address] Plt 68(L) 150 - 400 K/cumm SABRA Comment:Testing performed by : [address] [address] MPV 10.3 9.1 - 12.3 fL SABRA Comment:Testing performed by : [address] [address] RBC 2.06(L) 3.90 - 5.20 M/cumm SABRA Comment:Testing performed by : [address] [address] MCV 92.7 81.3 - 96.4 fL SABRA Comment:Testing performed by : [address] [address] MCH 31.6 27.1 - 33.3 pg SABRA PARKS Comment:Testing performed by : [address] [address] MCHC 34.0 32.3 - 35.7 g/dL SABRA Comment:Testing performed by : [address] [address] RDW CV 15.2(H) 11.1 - 14.9 % SABRA Comment:Testing performed by : [address], [address] RDW SD 51.1(H) 35.7 - 48.1 fL SABRA Comment:Testing performed by : [address] [address] NRBC abs 0.00 0.00 - 0.01 K/cumm SABRA Comment:Testing performed by : [address], [address] Morphologic Screen Results confirmed by manual morphology review. SABRA Comment:Testing performed by : [address], [address] Blood 09/28/2024 10:3 9 PM CDT 09/28/2024 10:49 PM CDT Laurel Desir MD LAB BLOOD ORDERABLES Final Res ult SABRA [facility] [place] [address] * Transfuse RBC (09/23/2024 2:21 PM CDT) Blood Chalino Chapa MD BLOOD TRANSFUSION ORDERAB LES Final Result * Transfuse RBC (09/23/2024 12:13 PM CDT) Blood Chalino Chapa MD BLOOD TRANSFUSION ORDERAB LES Final Result * Prepare RBC (09/23/2024 9:50 AM CDT) Pathologist [facility] Unit Number [id number] Product code [id number] [facility] ([place]) Blood Expiration Date [id number] [facility] ([place]) Product Blood Type (for scanning) 5100 [facility] ([place]) Product Blood Type OPOS [facility] ([place]) Dispense Status DISPENSED [facility] ([place]) us Chalino Chapa MD BLOOD BANK PRODUCT ORDERA BLES Final Result SABRA ROGERS ([place]) [address] [place] [address] [place] [address] * Prepare RBC (09/23/2024 9:49 AM CDT) Unit Number [id number] Product code [id number] SABRA [facility] ([place]) Blood Expiration Date [id number] [facility] ([place]) Product Blood Type (for scanning) 5100 [facility] ([place]) Product Blood Type OPOS SABRA ROG[facility] ([place]) Dispense Status DISPENSED SABRA ROG[facility] ([place]) us Chalino Chapa MD BLOOD BANK PRODUCT ORDERA BLES Final Result Performing Organization Address [facility]/ZIP Co de Phone Number SABRA ROG[facility] ([place]) [address] [place] [address] [place] [address] * Prepare RBC: 2 Units (09/23/2024 9:30 AM CDT) Units requested 2 Comment:Testing performed by : [place], [address] Units requested Ready EMMY ROGERS ([place]) Comment:Testing performed by : [place], [address] Blood 09/23/2024 9:30 AM CDT 09/23/2024 9:36 AM CDT Narrative SABRA [facility] ([place]) - 09/23/2024 9:39 AM CDT Are special requirements needed? (All products are leukoreduced and CMV- safe)->No us Chalino Chapa MD BLOOD BANK PRODUCT ORDERA BLES Final Result SABRA [facility]OG[facility] ([place]) [address] [place] [address] [place] [address] * (ABNORMAL) Immature platelet fraction (09/23/2024 8:10 AM CDT) Pathologist [facility] IPF 11.9(H) 1.6 - 10.1 % Comment:Testing performed by : [place], [address] Blood 09/23/2024 8:10 AM CDT 09/23/2024 8:40 AM CDT us Chalino Chapa MD LAB BLOOD ORDERABLES Aylin freedman Result SABRA [facility] ([place]) 1 [facility] [place] [address] * (ABNORMAL) CBC with auto differential (09/23/2024 8:10 AM CDT) Pathologist [facility] WBC 0.70(C) 3.80 - 9.90 K/cumm Comment: This result has been called to Lourdes Hudson RN IFS by [id number] on 09/23/2024 08:51:42, and has been read back. Testing performed by: [place], [address] Hgb 6.7(L) 11.9 - 15.5 g/dL [facility] ([place]) Comment:Testing performed by : [place], [address] Hct 20.2(L) 35.6 - 45.5 % [facility] ([place]) Comment:Testing performed by : [place], [address] Plt 21(C) 150 - 400 K/cumm [facility] ([place]) Comment: This result has been called to Lourdes Hudson RN IFS by [id number] on 09/23/2024 08:51:42, and has been read back. Testing performed by: [place], [address] MPV Not Measured 9.1 - 12.3 fL SABRA [facility] ([place]) Comment:Testing performed by : [facility], [place], [address] RBC 2.02(L) 3.90 - 5.20 M/cumm [facility] ([place]) Comment:Testing performed by : [facility], [place], [address] MCV 100.0(H) 81.3 - 96.4 fL [facility] ([place]) Comment:Testing performed by : [facility], [place], [address] MCH 33.2 27.1 - 33.3 pg [facility] ([place]) Comment:Testing performed by : [facility], [place], [address] MCHC 33.2 32.3 - 35.7 g/dL [facility] ([place]) Comment:Testing performed by : [facility], [place], [address] RDW CV 16.6(H) 11.1 - 14.9 % [facility] ([place]) Comment:Testing performed by : [facility], [place], [address] RDW SD 60.6(H) 35.7 - 48.1 fL [facility] ([place]) Comment:Testing performed by : [facility], [place], [address] NRBC abs 0.00 0.00 - 0.01 K/cumm [facility] ([place]) Comment:Testing performed by : [facility], [place], [address] Blood 09/23/2024 8:10 AM CDT 09/23/2024 8:40 AM CDT Chalino Chapa MD LAB BLOOD ORDERABLES Aylin freedman Result [facility] ([place]) 1 [facility] [place] [address] * ABO/Rh (09/23/2024 8:10 AM CDT) ABO/Rh O Positive Comment:Testing performed by : [facility], [place], [address] Blood 09/23/2024 8:10 AM CDT 09/23/2024 8:56 AM CDT Narrative SABRA [facility] ([place]) - 09/23/2024 9:36 AM CDT Has the patient had Daratumumab or Isatuximab in the past 6 months?->Unknown Witnessed by Yadi Gtz Chalino Chapa MD LAB BLOOD BANK TEST ORDER LAITH Final Result SABRA SUE ([place]) 1 [facility] [place] [address] * (ABNORMAL) Manual Differential (09/23/2024 8:10 AM CDT) Differential Manual Comment:Testing performed by : [place], [address] Cells Counted 100 SABRA [facility]OG[facility] ([place]) Comment:Testing performed by : [place], [address] Neutrophil abs 0.09(C) 1.50 - 6.50 K/cumm [facility] ([place]) Comment: This result has been called to Yadi Gtz RN IFS by [id number] on 09/23/2024 09:25:52, and has been read back. Testing performed by: [place], [address] Lymphocyte abs 0.60(L) 0.80 - 3.30 K/cumm [facility] ([place]) Comment:Testing performed by : [place], [address] Eosinophil abs 0.01 0.00 - 0.50 K/cumm [facility] ([place]) Comment:Testing performed by : [place], [address] Neutrophil pct 12.0 % [facility] ([place]) Comment: Interpretive Data Percent cell count reference ranges are not reported, since discordance with absolute values may lead to misinterpretation of CBC data. Current Interpretive Data was last revised on 2017. Testing performed by: [place], [address] Lymphocyte pct 86.0 % [facility] ([place]) Comment: Interpretive Data Percent cell count reference ranges are not reported, since discordance with absolute values may lead to misinterpretation of CBC data. Current Interpretive Data was last revised on 2017. Testing performed by: [facility], [facility], [place], [address] Eosinophil pct 1.0 % EMELINA ROGERS ([place]) Comment: Interpretive Data Percent cell count reference ranges are not reported, since discordance with absolute values may lead to misinterpretation of CBC data. Current Interpretive Data was last revised on 2017. Testing performed by: [facility], [facility], [place], [address] Band Neutrophil pct 1.0 0.0 - 5.0 % SABRA ROG[facility] ([place]) Comment:Testing performed by : [facility], [facility], [place], [address] RBC morphology Consistent with RBC Indicies SABRA [facility] ([place]) Comment:Testing performed by : [facility], [place], [address] Platelet estimate #CAC; #D CE JENNA ROGERS ([place]) Comment:Testing performed by : [facility], [place], [address] Blood 09/23/2024 8:10 AM CDT 09/23/2024 8:40 AM CDT us Chalino Chapa MD LAB BLOOD ORDERABLES Aylin l Result SABRA [facility] ([place]) 1 [facility] [place] [address] * Crossmatch (09/23/2024 8:10 AM CDT) Crossmatch Compatible C[facility]ER A ([place]) Unit number for crossmatch [id number] [facility] ([place]) Crossmatch Compatible [facility] Unit number for crossmatch [id number] [facility] ([place]) Blood 09/23/2024 8:10 AM CDT 09/23/2024 8:56 AM CDT us Chalino Chapa MD LAB BLOOD BANK TEST ORDER LAITH Final Result SABRA ROG[facility] ([place]) 1 [facility] [place] [address] * Antibody screen (09/23/2024 8:10 AM CDT) Rivera, indirect, Gel Interpretation Negative ABSC Comment:Testing performed by : [facility], [facility], [place], [address] Blood 09/23/2024 8:10 AM CDT 09/23/2024 8:56 AM CDT Narrative [facility] ([place]) - 09/23/2024 9:36 AM CDT Has the patient had Daratumumab or Isatuximab in the past 6 months?->Unknown us Chalino Chapa MD LAB BLOOD BANK TEST ORDER LAITH Final Result SABRA [facility] ([place]) 1 [facility] [place] [address] * Transfuse RBC (09/16/2024 2:17 PM CDT) Blood us Chalino Chapa MD BLOOD TRANSFUSION ORDERAB LES Final Result * Transfuse RBC (09/16/2024 12:33 PM CDT) Blood us Chalino Chapa MD BLOOD TRANSFUSION ORDERAB LES Final Result * Prepare RBC (09/16/2024 10:33 AM CDT) Unit Number [id number] Product code [id number] [facility] ([place]) Blood Expiration Date [id number] [facility] ([place]) Product Blood Type (for scanning) 5100 [facility] ([place]) Product Blood Type OPOS [facility] ([place]) Dispense Status DISPENSED [facility] ([place]) us Chalino Chapa MD BLOOD BANK PRODUCT ORDERA BLES Final Result SABRA [facility]OG[facility] ([place]) 1 [facility] [place] [address] * Prepare RBC (09/16/2024 10:32 AM CDT) Unit Number [id number] Product code [id number] S[facility]RA [facility] ([place]) Blood Expiration Date [facility] ([place]) Product Blood Type (for scanning) 5100 [facility] ([place]) Product Blood Type OPOS [facility] ([place]) Dispense Status DISPENSED SABRA [facility] ([place]) us Chalino Chapa MD BLOOD BANK PRODUCT ORDERA BLES Final Result SABRA [facility]OG[facility] ([place]) 1 [facility] [place] [address] * Prepare RBC: 2 Units (09/16/2024 10:25 AM CDT) Units requested 2 Comment:Testing performed by : [facility], [place], [address] Units requested Ready [facility] ([place]) Comment:Testing performed by : [place], [address] Blood 09/16/2024 10:2 5 AM CDT 09/16/2024 10:25 AM CDT Narrative SABRA [facility]OG[facility] ([place]) - 09/16/2024 10:26 AM CDT Are special requirements needed? (All products are leukoreduced and CMV- safe)->No us Chalino Chapa MD BLOOD BANK PRODUCT ORDERA BLES Final Result SABRA [facility]OG[facility] ([place]) 1 [place] [address] * Crossmatch (09/16/2024 10:12 AM CDT) Crossmatch Compatible SABRA Silva ([place]) Unit number for crossmatch [id number] SABRA [facility] ([place]) Crossmatch Compatible SABRA Silva ([place]) Unit number for crossmatch [id number] [facility] ([place]) Blood 09/16/2024 10:1 2 AM CDT 09/16/2024 10:12 AM CDT us Chalino Chapa MD LAB BLOOD BANK TEST ORDER LAITH Final Result Performing Organization Address City/[facility]/ZIP Co de Phone Number SABRA [facility] ([place]) 1 [facility] [place] [address] * eGFR (09/16/2024 9:05 AM CDT) eGFR [...] was last reviewed 2021. Testing performed by: [facility], [facility], [place], [address] Blood 09/16/2024 9:05 AM CDT 09/16/2024 9:20 AM CDT us Zoraida Villegas NP LAB BLOOD ORDERABLES Final Result SABRA [facility] ([place]) 1 [facility] [place] [address] * (ABNORMAL) CBC with auto differential (09/16/2024 9:05 AM CDT) WBC 1.83(L) 3.80 - 9.90 K/cumm Comment:Testing performed by : [place], [address] Hgb 6.3(C) 11.9 - 15.5 g/dL [facility] ([place]) Comment: This result has been called to Ynes Ojeda RN IFS by [id number] on 09/16/2024 10:07:36, and has been read back. Testing performed by: [place], [address] Hct 19.1(L) 35.6 - 45.5 % [facility] ([place]) Comment:Testing performed by : [place], [place], Plt [address](L) 150 - 400 K/cumm [facility] ([place]) Comment:Testing performed by : [place], [place], MPV 11.7 9.1 - 12.3 fL [facility] ([place]) Comment:Testing performed by : [place], [address] RBC 1.72(L) 3.90 - 5.20 M/cumm [facility] ([place]) Comment:Testing performed by : [place], [place], MCV 111.0(H) 81.3 - 96.4 fL [facility] ([place]) Comment:Testing performed by : [place], [address] MCH 36.6(H) 27.1 - 33.3 pg [facility] ([place]) Comment:Testing performed by : [place], MCHC 33.0 32.3 - 35.7 g/dL [facility] ([place]) Comment:Testing performed by : [place], [address] RDW CV 16.4(H) 11.1 - 14.9 % [facility] ([place]) Comment:Testing performed by : [facility] [address], [place], [address] RDW SD 65.4(H) 35.7 - 48.1 fL SABRA ROG[facility] ([place]) Comment:Testing performed by : [facility], [place], [address] NRBC abs 0.00 0.00 - 0.01 K/cumm SABRA ROG[facility] ([place]) Comment:Testing performed by : [facility], [place], [address] Blood 09/16/2024 9:05 AM CDT 09/16/2024 9:27 AM CDT us Chalino Chapa MD LAB BLOOD ORDERABLES Aylin l Result Performing Organization Address [facility]/State/ZIP Co de Phone Number SABRA ROGERS ([place]) [address] [place] [address] Department [place] [address] * ABO/Rh (09/16/2024 9:05 AM CDT) ABO/Rh O Positive Comment:Testing performed by : [facility], [place], [address] Blood 09/16/2024 9:05 AM CDT 09/16/2024 9:19 AM CDT Narrative SABRA ROGERS ([place]) - 09/16/2024 10:10 AM CDT Has the patient had Daratumumab or Isatuximab in the past 6 months?->Unknown us Milla Armenta NP LAB BLOOD BANK TEST ORDERA BLES Final Result Performing Organization Address [facility]/ZIP Co de Phone Number SABRA ROGERS ([place]) 1 [facility] Department [place] [address] * (ABNORMAL) Manual Differential (09/16/2024 9:05 AM CDT) Differential Manual Comment:Testing performed by : [facility], [place], [address] Cells Counted 100 SABRA ROGERS ([place]) Comment:Testing performed by : [facility], [place], [address] Neutrophil abs 1.08(L) 1.50 - 6.50 K/cumm [facility] ([place]) Comment:Testing performed by : [facility], [facility], [place], [address] Lymphocyte abs 0.64(L) 0.80 - 3.30 K/cumm [facility] ([place]) Comment:Testing performed by : [facility], [place], [address] Monocyte abs 0.04(L) 0.20 - 0.80 K/cumm [facility] ([place]) Comment:Testing performed by : [facility], [facility], [place], [address] Eosinophil abs 0.07 0.00 - 0.50 K/cumm [facility] ([place]) Comment:Testing performed by : [facility], [place], [address] Neutrophil pct 57.0 % [facility] ([place]) Comment: Interpretive Data Percent cell count reference ranges are not reported, since discordance with absolute values may lead to misinterpretation of CBC data. Current Interpretive Data was last revised on 2017. Testing performed by: [facility], [facility], [place], [address] Lymphocyte pct 35.0 % [facility] ([place]) Comment: Interpretive Data Percent cell count reference ranges are not reported, since discordance with absolute values may lead to misinterpretation of CBC data. Current Interpretive Data was last revised on 2017. Testing performed by: [facility], [place], [address] Monocyte pct 2.0 % [facility] ([place]) Comment: Interpretive Data Percent cell count reference ranges are not reported, since discordance with absolute values may lead to misinterpretation of CBC data. Current Interpretive Data was last revised on 2017. Testing performed by: [facility], [place], [address] Eosinophil pct 4.0 % [facility] ([place]) Comment: Interpretive Data Percent cell count reference ranges are not reported, since discordance with absolute values may lead to misinterpretation of CBC data. Current Interpretive Data was last revised on 2017. Testing performed by: [facility], [place], [address] Band Neutrophil pct 2.0 0.0 - 5.0 % [facility] ([place]) Comment:Testing performed by : [facility], [facility], [place], [address] RBC morphology Consistent with RBC Indicies [facility] ([place]) Comment:Testing performed by : [facility], [facility], [place], [address] Anisocytosis Slight(A) [facility] ([place]) Comment:Testing performed by : [facility], [facility], [place], [address] Macrocytes 3-7/HPF(A) SABRA Silva ([place]) Comment:Testing performed by : [facility], [facility], [place], [address] Elliptocytes 3-7/HPF(A) [facility] ([place]) Comment:Testing performed by : [facility], [facility], [place], [address] Platelet estimate Automated Count Confirmed SABRA ROGERS ([place]) Comment:Testing performed by : [facility], [facility], [place], [address] Blood 09/16/2024 9:05 AM CDT 09/16/2024 9:27 AM CDT us Chalino Chapa MD LAB BLOOD ORDERABLES Aylin l Result Performing Organization Address City/[facility] Co de Phone Number SABRA ROGERS ([place]) 1 [facility] Department [place] [address] * Antibody screen (09/16/2024 9:05 AM CDT) Rivera, indirect, Gel Interpretation Negative ABSC Comment:Testing performed by : [facility], [facility], [place], [address] Blood 09/16/2024 9:05 AM CDT 09/16/2024 9:19 AM CDT Narrative SABRA ROGERS ([place]) - 09/16/2024 10:10 AM CDT Has the patient had Daratumumab or Isatuximab in the past 6 months?->Unknown us Milla Armenta NP LAB BLOOD BANK TEST ORDERA BLES Final Result Performing Organization Address City/[facility]/ZIP Co de Phone Number SABRA ROGERS ([place]) 1 [facility] Department [place] [address] * (ABNORMAL) Comprehensive metabolic panel (09/16/2024 9:05 AM CDT) Sodium 137 135 - 145 mmol/L Comment:Testing performed by : [facility], [facility], [place], [address] Potassium, pl 4.5 3.3 - 4.9 mmol/L [facility] ([place]) Comment:Testing performed by : [facility], [place], [address] Chloride 101 97 - 110 mmol/L [facility] ([place]) Comment:Testing performed by : [facility], [place], [address] CO2 26 22 - 32 mmol/L [facility] ([place]) Comment:Testing performed by : [facility], [place], [address] Anion gap 10 2 - 15 mmol/L [facility] ([place]) Comment:Testing performed by : [facility], [facility], [place], [address] BUN 22 6 - 25 mg/dL [facility] ([place]) Comment:Testing performed by : [facility], [place], [address] Creatinine 0.54(L) 0.60 - 1.10 mg/dL [facility] ([place]) Comment:Testing performed by : [facility], [place], [address] Glucose 143 70 - 199 mg/dL [facility] Comment: Interpretive Data Fasting glucose >/= 126 [...] performed by: [facility], [place], [address] Calcium 8.5 8.5 - 10.3 mg/dL [facility] ([place]) Comment:Testing performed by : [facility], [place], [address] Bilirubin, total 0.8 0.1 - 1.2 mg/dL [facility] ([place]) Comment:Testing performed by : [facility], [place], [address] Protein, pl 6.3(L) 6.5 - 8.5 g/dL [facility] ([place]) Comment:Testing performed by : [facility], [place], [address] Albumin 4.2 3.5 - 5.0 g/dL [facility] ([place]) Comment:Testing performed by : [facility], [place], [address] Alk phos 66 40 - 130 Units/L [facility] ([place]) Comment:Testing performed by : [facility], [place], [address] ALT 59(H) 7 - 45 Units/L [facility] ([place]) Comment:Testing performed by : [facility], [facility], [place], [address] AST 31 10 - 45 Units/L [facility] ([place]) Comment:Testing performed by : [facility], [place], [address] Blood 09/16/2024 9:05 AM CDT 09/16/2024 9:20 AM CDT Zoraida Villegas EQUITY STRUCTURER LAB BLOOD ORDERABLES Final Result [facility] ([place]) 1 [facility] Department [place] [address] * eGFR (09/09/2024 9:00 AM CDT) eGFR [...] was last reviewed 2021. Testing performed by: [place], [address] Blood 09/09/2024 9:00 AM CDT 09/09/2024 9:11 AM CDT us Chalino Chapa MD LAB BLOOD ORDERABLES Alyin freedman Result SABRA ROGERS ([place]) 1 [facility] Department [place] [address] * (ABNORMAL) Differential, auto (09/09/2024 9:00 AM CDT) Neutrophil abs 1.38(L) 1.50 - 6.50 K/cumm Comment:Testing performed by : [place], [address] Imm gran abs 0.01 0.00 - 0.10 K/cumm [facility] ([place]) Comment:Testing performed by : [facility], [place], [address] Lymphocyte abs 0.70(L) 0.80 - 3.30 K/cumm [facility] ([place]) Comment:Testing performed by : [place], [address] Monocyte abs 0.21 0.20 - 0.80 K/cumm [facility] ([place]) Comment:Testing performed by : [facility], [place], [address] Eosinophil abs 0.04 0.00 - 0.50 K/cumm [facility] ([place]) Comment:Testing performed by : [facility], [place], [address] Basophil abs 0.02 0.00 - 0.10 K/cumm [facility] ([place]) Comment:Testing performed by : [place], [address] Neutrophil pct 58.5 % [facility] ([place]) Comment: Interpretive Data Percent cell count reference ranges are not reported, since discordance with absolute values may lead to misinterpretation of CBC data. Current Interpretive Data was last revised on 2017. Testing performed by: [place], [address] Imm gran pct 0.4 % [facility] ([place]) Comment: Interpretive Data Percent cell count reference ranges are not reported, since discordance with absolute values may lead to misinterpretation of CBC data. Current Interpretive Data was last revised on 2017. Testing performed by: [place], [address] Lymphocyte pct 29.7 % [facility] ([place]) Comment: Interpretive Data Percent cell count reference ranges are not reported, since discordance with absolute values may lead to misinterpretation of CBC data. Current Interpretive Data was last revised on 2017. Testing performed by: [place], [address] Monocyte pct 8.9 % [facility] ([place]) Comment: Interpretive Data Percent cell count reference ranges are not reported, since discordance with absolute values may lead to misinterpretation of CBC data. Current Interpretive Data was last revised on 2017. Testing performed by: [place], [address] Eosinophil pct 1.7 % [facility] ([place]) Comment: Interpretive Data Percent cell count reference ranges are not reported, since discordance with absolute values may lead to misinterpretation of CBC data. Current Interpretive Data was last revised on 2017. Testing performed by: [place], [address] Basophil pct 0.8 % [facility] ([place]) Comment: Interpretive Data Percent cell count reference ranges are not reported, since discordance with absolute values may lead to misinterpretation of CBC data. Current Interpretive Data was last revised on 2017. Testing performed by: [facility], [place], [address] Blood 09/09/2024 9:00 AM CDT 09/09/2024 9:21 AM CDT us Chalino Chapa MD LAB BLOOD ORDERABLES Aylin tano Result [facility] ([place]) 1 [facility] Department [place] [address] * (ABNORMAL) CBC with auto differential (09/09/2024 9:00 AM CDT) WBC 2.36(L) 3.80 - 9.90 K/cumm Comment:Testing performed by : [facility], [place], [address] Hgb 8.1(L) 11.9 - 15.5 g/dL [facility] ([place]) Comment:Testing performed by : [facility], [place], [address] Hct 24.8(L) 35.6 - 45.5 % [facility] ([place]) Comment:Testing performed by : [place], [place], Plt 180 150 - 400 K/cumm [facility] ([place]) Comment:Testing performed by : [place], MPV 11.4 9.1 - 12.3 fL [facility] ([place]) Comment:Testing performed by : [place], [address] RBC 2.25(L) 3.90 - 5.20 M/cumm [facility] ([place]) Comment:Testing performed by : [place], [address] MCV 110.2(H) 81.3 - 96.4 fL [facility] ([place]) Comment:Testing performed by : [place], [address] MCH 36.0(H) 27.1 - 33.3 pg [facility] ([place]) Comment:Testing performed by : [place], [address] MCHC 32.7 32.3 - 35.7 g/dL [facility] ([place]) Comment:Testing performed by : [facility], [place], [address] RDW CV 17.0(H) 11.1 - 14.9 % [facility] ([place]) Comment:Testing performed by : [facility], [place], [address] RDW SD 67.0(H) 35.7 - 48.1 fL [facility] ([place]) Comment:Testing performed by : [facility], [place], [address] NRBC abs 0.00 0.00 - 0.01 K/cumm [facility] ([place]) Comment:Testing performed by : [facility], [place], [address] Blood 09/09/2024 9:00 AM CDT 09/09/2024 9:21 AM CDT Chalino Chapa MD LAB BLOOD ORDERABLES Aylin freedman Result [facility] 1 [facility] Department [place] [address] * (ABNORMAL) Comprehensive metabolic panel (09/09/2024 9:00 AM CDT) Sodium 141 135 - 145 mmol/L Comment:Testing performed by : [facility], [place], [address] Potassium, pl 4.0 3.3 - 4.9 mmol/L [facility] ([place]) Comment:Testing performed by : [facility], [place], [address] Chloride 103 97 - 110 mmol/L [facility] ([place]) Comment:Testing performed by : [facility], [place], [address] CO2 27 22 - 32 mmol/L [facility] ([place]) Comment:Testing performed by : [facility], [place], [address] Anion gap 11 2 - 15 mmol/L [facility] ([place]) Comment:Testing performed by : [facility], [place], [address] BUN 13 6 - 25 mg/dL [facility] ([place]) Comment:Testing performed by : [facility], [place], [address] Creatinine 0.56(L) 0.60 - 1.10 mg/dL [facility] ([place]) Comment:Testing performed by : [facility], [place], [address] Glucose 185 70 - 199 mg/dL CERNER [...] performed by: [facility], [place], [address] Calcium 8.3(L) 8.5 - 10.3 mg/dL [facility] ([place]) Comment:Testing performed by : [place], [address] Bilirubin, total 0.9 0.1 - 1.2 mg/dL [facility] ([place]) Comment:Testing performed by : [place], [address] Protein, pl 6.4(L) 6.5 - 8.5 g/dL [facility] ([place]) Comment:Testing performed by : [facility], [place], [address] Albumin 4.1 3.5 - 5.0 g/dL [facility] ([place]) Comment:Testing performed by : [place], [address] Alk phos 67 40 - 130 Units/L [facility] ([place]) Comment:Testing performed by : [facility], [place], [address] ALT 44 7 - 45 Units/L [facility] ([place]) Comment:Testing performed by : [place], [address] AST 19 10 - 45 Units/L SABRA ROGERS ([place]) Comment:Testing performed by : [place], [address] Blood 09/09/2024 9:00 AM CDT 09/09/2024 9:11 AM CDT us Chalino Chapa MD LAB BLOOD ORDERABLES Aylin l Result Performing Organization Address City/[facility]/ZIP Co de Phone Number SABRA ROGERS ([place]) 1 [facility] Department [place] [address] * Prepare RBC: 1 Units (09/02/2024 6:07 PM CDT) Units requested 1 Comment:Testing performed by : 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 symptomatic Are special requirements needed? (All products are leukoreduced and CMV- safe)->No Chalino Chapa MD BLOOD BANK PRODUCT ORDERA BLES Final Result SABRA ROGERS ([place]) 1 [facility] Department [place] [address] * Transfuse RBC (09/02/2024 1:17 PM CDT) Blood us Chalino Chapa MD BLOOD TRANSFUSION ORDERAB LES Final Result * Prepare RBC (09/02/2024 11:07 AM CDT) Unit Number [id number] Product code [id number] [facility] ([place]) Blood Expiration Date [id number] [facility] ([place]) Product Blood Type (for scanning) 5100 [facility] ([place]) Product Blood Type OPOS [facility] ([place]) Dispense Status DISPENSED SABRA ROGERS ([place]) us Chalino Chapa MD BLOOD BANK PRODUCT ORDERA BLES Final Result SABRA ROGERS ([place]) 1 [facility] Department [place] [address] * eGFR (09/02/2024 9:45 AM CDT) eGFR [...] was last reviewed 2021. Testing performed by: [facility], [facility], [place], [address] Blood 09/02/2024 9:45 AM CDT 09/02/2024 10:06 AM CDT us Gabriel Bruce NP LAB BLOOD ORDERABLES F inal Result SABRA ROGERS ([place]) 1 [facility] Department [place] [address] * (ABNORMAL) Differential, auto (09/02/2024 9:45 AM CDT) Neutrophil abs 1.05(L) 1.50 - 6.50 K/cumm Comment:Testing performed by : [facility], [facility], [place], [address] Imm gran abs 0.02 0.00 - 0.10 K/cumm [facility] ([place]) Comment:Testing performed by : [facility], [place], [address] Lymphocyte abs 0.51(L) 0.80 - 3.30 K/cumm [facility] ([place]) Comment:Testing performed by : [facility], [place], [address] Monocyte abs 0.21 0.20 - 0.80 K/cumm [facility] ([place]) Comment:Testing performed by : [facility], [place], [address] Eosinophil abs 0.04 0.00 - 0.50 K/cumm [facility] ([place]) Comment:Testing performed by : [facility], [place], [address] Basophil abs 0.01 0.00 - 0.10 K/cumm [facility] ([place]) Comment:Testing performed by : [place], [address] Neutrophil pct 57.1 % [facility] ([place]) Comment: Interpretive Data Percent cell count reference ranges are not reported, since discordance with absolute values may lead to misinterpretation of CBC data. Current Interpretive Data was last revised on 2017. Testing performed by: [place], [address] Imm gran pct 1.1 % [facility] ([place]) Comment: Interpretive Data Percent cell count reference ranges are not reported, since discordance with absolute values may lead to misinterpretation of CBC data. Current Interpretive Data was last revised on 2017. Testing performed by: [place], [address] Lymphocyte pct 27.7 % [facility] ([place]) Comment: Interpretive Data Percent cell count reference ranges are not reported, since discordance with absolute values may lead to misinterpretation of CBC data. Current Interpretive Data was last revised on 2017. Testing performed by: [facility], [place], [address] Monocyte pct 11.4 % SABRA ROGERS ([place]) Comment: Interpretive Data Percent cell count reference ranges are not reported, since discordance with absolute values may lead to misinterpretation of CBC data. Current Interpretive Data was last revised on 2017. Testing performed by: [place], [address] Eosinophil pct 2.2 % [facility] ([place]) Comment: Interpretive Data Percent cell count reference ranges are not reported, since discordance with absolute values may lead to misinterpretation of CBC data. Current Interpretive Data was last revised on 2017. Testing performed by: [facility], [place], [address] Basophil pct 0.5 % [facility] ([place]) Comment: Interpretive Data Percent cell count reference ranges are not reported, since discordance with absolute values may lead to misinterpretation of CBC data. Current Interpretive Data was last revised on 2017. Testing performed by: [facility], [place], [address] Blood 09/02/2024 9:45 AM CDT 09/02/2024 11:02 AM CDT us Chalino Chapa MD LAB BLOOD ORDERABLES Aylin freedman Result SABRA ROGERS ([place]) 1 [facility] Department [place] [address] * (ABNORMAL) CBC with auto differential (09/02/2024 9:45 AM CDT) WBC 1.84(L) 3.80 - 9.90 K/cumm Comment:Testing performed by : [facility], [place], [address] Hgb 7.5(L) 11.9 - 15.5 g/dL SABRA ROGERS ([place]) Comment:Testing performed by : [facility], [place], [address] Hct 23.0(L) 35.6 - 45.5 % [facility]ABRA ROGERS ([place]) Comment:Testing performed by : [place], [place], Plt 165 150 - 400 K/cumm [facility] ([place]) Comment:Testing performed by : [place], MPV 12.1 9.1 - 12.3 fL [facility] ([place]) Comment:Testing performed by : [place], RBC 1.99(L) 3.90 - 5.20 M/cumm [facility] ([place]) Comment:Testing performed by : [place], MCV 115.6(H) 81.3 - 96.4 fL [facility] ([place]) Comment:Testing performed by : [place], MCH 37.7(H) 27.1 - 33.3 pg [facility] ([place]) Comment:Testing performed by : [place], MCHC 32.6 32.3 - 35.7 g/dL [facility] ([place]) Comment:Testing performed by : [place], RDW CV 15.1(H) 11.1 - 14.9 % [facility] ([place]) Comment:Testing performed by : [place], RDW SD 61.1(H) 35.7 - 48.1 fL [facility] ([place]) Comment:Testing performed by : [place], NRBC abs 0.00 0.00 - 0.01 K/cumm [facility] ([place]) Comment:Testing performed by : [place], Blood 09/02/2024 9:45 AM CDT 09/02/2024 11:04 AM CDT us Chalino Chapa MD LAB BLOOD ORDERABLES Aylin freedman Result [facility] ([place]) [address] [place] [address] Department [place] [address] * ABO/Rh (09/02/2024 9:45 AM CDT) ABO/Rh O Positive Comment:Testing performed by : [facility], [facility], [place], [address] Blood 09/02/2024 9:45 AM CDT 09/02/2024 10:27 AM CDT Narrative [facility] ([place]) - 09/02/2024 10:59 AM CDT Has the patient had Daratumumab or Isatuximab in the past 6 months?->Unknown us Chalino Chapa MD LAB BLOOD BANK TEST ORDER LAITH Final Result [facility] ([place]) [address] [place] [address] Department [place] [address] * Crossmatch (09/02/2024 9:45 AM CDT) Crossmatch Compatible SABRA Silva ([place]) Unit number for crossmatch [id number] [facility] ([place]) Blood 09/02/2024 9:45 AM CDT 09/02/2024 10:27 AM CDT us Chalino Chapa MD LAB BLOOD BANK TEST ORDER LAITH Final Result [facility] ([place]) [address] [place] [address] Department [place] [address] * Antibody screen (09/02/2024 9:45 AM CDT) Rivera, indirect, Gel Interpretation Negative ABSC Comment:Testing performed by : [facility], [place], [address] Blood 09/02/2024 9:45 AM CDT 09/02/2024 10:27 AM CDT Narrative SABRA ROGERS ([place]) - 09/02/2024 10:59 AM CDT Has the patient had Daratumumab or Isatuximab in the past 6 months?->Unknown us Chalino Chapa MD LAB BLOOD BANK TEST ORDER LAITH Final Result [facility]RA ROGERS ([place]) 1 [facility] Department [place] [address] * (ABNORMAL) Comprehensive metabolic panel (09/02/2024 9:45 AM CDT) Sodium 138 135 - 145 mmol/L Comment:Testing performed by : [facility], [place], [address] Potassium, pl 4.3 3.3 - 4.9 mmol/L [facility] ([place]) Comment:Testing performed by : [facility], [place], [address] Chloride 99 97 - 110 mmol/L [facility] ([place]) Comment:Testing performed by : [facility], [place], [address] CO2 28 22 - 32 mmol/L [facility] ([place]) Comment:Testing performed by : [facility], [place], [address] Anion gap 11 2 - 15 mmol/L [facility] ([place]) Comment:Testing performed by : [facility], [place], [address] BUN 15 6 - 25 mg/dL [facility] ([place]) Comment:Testing performed by : [facility], [place], [address] Creatinine 0.65 0.60 - 1.10 mg/dL [facility] ([place]) Comment:Testing performed by : [facility], [place], [address] Glucose 165 70 - 199 mg/dL [facility] ([place]) Comment: Interpretive Data Fasting glucose >/= 126 [...] performed by: [facility], [place], [address] Calcium 8.6 8.5 - 10.3 mg/dL [facility] ([place]) Comment:Testing performed by : [facility], [place], [address] Bilirubin, total 0.7 0.1 - 1.2 mg/dL [facility] Comment:Testing performed by : [facility], [place], [address] Protein, pl 6.3(L) 6.5 - 8.5 g/dL [facility]) Comment:Testing performed by : [facility], [place], [address] Albumin 4.0 3.5 - 5.0 g/dL [facility]) Comment:Testing performed by : [facility], [place], [address] Alk phos 66 40 - 130 Units/L [facility]) Comment:Testing performed by : [facility], [place], [address] ALT 45 7 - 45 Units/L [facility]) Comment:Testing performed by : [facility], [place], [address] AST 27 10 - 45 Units/L [facility]) Comment:Testing performed by : [facility], [place], [address] Blood 09/02/2024 9:45 AM CDT 09/02/2024 10:06 AM CDT us Gabriel Bruce NP LAB BLOOD ORDERABLES F inal Result [facility]) [facility] [place] [address] from Last 3 Months Insurance MEDICARE MEDICARE [facility] MEDICARE SUPPLEMENT MEDICARE [place] MEDICARE SUPPLEMENT Advance Directives For more information, please contact: [phone] Documents on File Type Date Recorded Patient Variety Performer Expl anation ADVANCE DIRECTIVE 12/20/2023 8:01 AM Power of Driver [employer] * Full Code (Latest Code Status on File) Date Activated Date Inactivated Comments 09/28/2024 7:50 PM 10/07/2024 7:51 PM * Full Code Date Activated Date Inactivated Comments 12/11/2023 12:19 PM 12/19/2023 6:45 PM Care Teams [employer] Nurse Relationship Specialty Start Date End Date Bryan Davey DO PCP - General Internal Medicine 11/14/23 Prateek King MD [address] [place] [address] Consulting Physician Urology 10/07/24 Sherman Alvarez DO [address] [place] [id number] Medical Oncologist/Trench Trimmer Fine Hematology and Oncology 10/07/24
--- OUTSIDE RECORDS SUMMARY | 2024-11-12 11:30 | XMS_ITS | Encounter Summary ---
Author Organization [facility] Address [address] [place] [address] Care Team Providers Care Blade Operator Name Role Phone Mervat Kelley [employer] CLERK-ROTARY DUMP OPERATOR Primary Care Provider + Encounter Details Date Type Department Care Team (Late st Contact Info) Description 10/05/2022 Lab Requisition [facility] - Pathology Lab [address] [place] [address] Jesus Louis MD [address] [address] Anemia, unspecified Social History Tobacco [...] AM CDT) Case Report Flow Cytometry Case: [id number] Authorizing Provider: Jesus Louis MD Collected: 10/05/2022 09:15 AM Ordering Location: [facility] Pathology Lab Received: 10/05/2022 02:15 PM Pathologist: Linda Hauser MD Specimen: Bone Marrow 10/05/2022 4:45 PM CDT [facility] Final Diagnosis Bone marrow, flow cytometric immunophenotypic analysis: - No evidence of non-Hodgkin lymphoma or high-grade myeloid neoplasm. - See interpretation. 10/05/2022 4:45 PM CDT [facility] PATHOLOGY LAB at 1644 CDT Flow Cytometry [...] cytometry specimen is reviewed for quality control checker purposes. The bone marrow specimen shows no [...] ID # [id number] 10/05/2022 4:45 PM CDT [facility] Number of markers 10 were performed. A-2 Flow CD10 A-3 Flow CD13 A-5 Flow CD20 A-1 Flow CD5 A-4 Flow CD19 A-6 Flow CD33 A-7 Flow CD34 A-8 Flow CD45 A-9 Langston+CD19+ A-10 Lambda+CD19+ 10/05/2022 4:45 PM CDT [facility] Pathologist Location at [facility] 10/05/2022 4:45 PM CDT [facility] Disclaimer Test performed at [facility], [address] [place], [place], [address]. *The established laboratory minimum viability is 70%. [...] PATHOLOGY LAB Embedded Images 4:45 PM CDT [facility] Pathology/Cytolo gy BONE MARROW SPECIMEN / Unknown 10/05/2022 9:15 AM CDT 10/05/2022 2:15 PM CDT Jesus Louis MD LAB - PATHOLOGY/CYTOLOGY ORDERAB LES Final Result Performing Organization Address City/State/[facility] Co de Phone Number [facility] PATH[facility] LAB [address] [place] [address]. [address] [phone] documented in this encounter Visit Diagnoses Diagnosis Anemia, unspecified documented in this encounter Care Teams Blade Operator Relationship Specialty Start Date End Date Mervat Kelley APRN-CNP [address] [address] PCP - General 11/24/21 documented as of this encounter
== END 2024-11-12 10:44 | disposition home or self-care (01) ==
LOC: ANHGOSHLAB 10:44
PROVIDERS: PCP Internal Medicine; Visit Provider Clinical Nurse Specialist
DX: N30.00 Acute cystitis without hematuria (principal)
CPT/HCPCS: 87086

== ENCOUNTER 2024-12-09 10:35 | Outpatient (RCR) | payer MEDICARE, SELFPAY ==
--- OUTSIDE RECORDS SUMMARY | 2024-12-09 11:11 | XMS_ITS | Clinical Summary ---
Author Organization [facility] Medical Office Building B Address [address] [place] [address] Care Team Providers Care President [employer] Name Role Phone Bryan Davey DO Primary Care Provider [phone] Prateek King MD Unavailable Sherman Alvarez DO Unavailable [phone] Allergies Active Allergy Reactions Criticality Noted Date [...] 10 mg tabletIndicatio ns:MDS (myelodysplasti c syndrome) ([facility]) Take 1 tablet (10 mg total) [...] 1 tablet (75 mcg total) by mouth floor associate before breakfast 30 tablet 4 Active oxyBUTYnin XL (DITROPAN-XL) 5 mg 24 hr tablet 4 Active acyclovir (ZOVIRAX) 400 mg tabletIndicatio ns:MDS (myelodysplasti c syndrome) ([facility]) TAKE 1 TABLET BY MOUTH THREE TIMES DAILY FOR SHINGLES PREVENTION. 90 tablet 5 Active levothyroxine (SYNTHROID) 75 mcg tablet Take 1 tablet (75 mcg total) by mouth floor associate before breakfast Active docusate sodium (COLACE) 250 mg capsule Take 4 capsules (1,000 mg total) by mouth nightly Active melatonin tablet Take 2 tablets (6 mg total) by mouth nightly Active NON FORMULARY, FOR INPATIENT USE, Chew nightly Zzzquil Pure ZZZs Melatonin + Chamomile & Lavender Patient states she takes 1.5 to 2 gummies nightly Active Active Problems Problem Noted Date Diagnosed [...] (06/06/2018): Added automatically from request for surgery [id number] Encounters Date Type Department Care Team Description 12/03/2024 9:30 AM CDT Infusion [address] [place] [phone] Bud Rubio, HOTEL ASSISTANT GENERAL MANAGER (myelodysplastic syndrome) (HCC) 12/03/2024 9:00 AM CDT Office Visit [facility] [address] [place] [address] Medical Office Bld[address] [place] [address] Chalino Chapa MD Myelodysplastic syndrome (HCC) (Primary Dx); Anemia in neoplastic disease; MDS (myelodysplastic syndrome) (HCC) 12/03/2024 8:30 AM CDT Lab [address] [place] [address] MDS (myelodysplastic syndrome) (HCC); Myelodysplastic syndrome (HCC) 11/29/2024 9:00 AM CDT Infusion [address] [place] [address] Radha Brink, ALBERT Anemia in neoplastic disease; MDS (myelodysplastic syndrome) (HCC) 11/29/2024 8:30 AM CDT Lab [address] [place] [address] Anemia in neoplastic disease; MDS (myelodysplastic syndrome) ([facility]) 11/28/2024 Orders Only [facility] [address] [place] [address] [address] [place] [address] Chalino Chapa MD 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); MDS (myelodysplastic syndrome) (HCC) 11/28/2024 Telephone [facility] [address] [place] [address] [address] [place] [address] Anisa Villagran, Ashley 11/26/2024 9:45 AM CDT Lab [address] [place] [address] MDS (myelodysplastic syndrome) ([facility]) 11/19/2024 10:00 AM CDT Infusion [address] [place] [phone] Betty Donaldson RN MDS (myelodysplastic syndrome) ([facility]) 11/19/2024 9:45 AM CDT Lab [address] [place] [phone] MDS (myelodysplastic syndrome) ([facility]) 11/14/2024 10:00 AM CDT Infusion [address] [place] [phone] Radha Brink RN 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); MDS (myelodysplastic syndrome) ([facility]) 11/14/2024 9:45 AM CDT Lab [address] [place] [address] MDS (myelodysplastic syndrome) ([facility]) 11/14/2024 Orders Only [facility] [address] [place] [address] [address] [place] [address] Chalino Chapa MD 11/12/2024 Telephone [facility] [address] [place] [address] Office [facility] [address] [place] [address] Theresa Gutierres, ALBERT 11/11/2024 10:30 AM CDT Infusion [address] [place] [address] Emile Jackson, ALBERT Encounter for care related to Port-a-Cath (Primary Dx); Myelodysplastic syndrome (HCC); MDS (myelodysplastic syndrome) (HCC) 11/11/2024 10:15 AM CDT Office Visit [facility] [address] [place] [address] Office [facility] [address] [place] [address] Chalino Chapa MD MDS (myelodysplastic syndrome) (HCC) (Primary Dx); Myelodysplastic syndrome (HCC) 11/11/2024 9:45 AM CDT Lab [address] [place] [phone] Myelodysplastic syndrome (HCC); MDS (myelodysplastic syndrome) (HCC); Chronic anemia 10/28/2024 Orders Only [facility] [address] [place] [address] Office [facility] [address] [place] [address] Chalino Chapa MD MDS (myelodysplastic syndrome) (HCC) (Primary Dx); Chronic anemia 10/21/2024 9:00 AM CDT Infusion [address] [place] [phone] MDS (myelodysplastic syndrome) (HCC) 10/21/2024 8:45 AM CDT Office Visit [facility] [address] [place] [address] Office [facility] [address] [place] [address] Milla Armenta NP Myelodysplastic syndrome (HCC) (Primary Dx); MDS (myelodysplastic syndrome) (HCC) 10/21/2024 8:15 AM CDT Lab [address] [place] [address] MDS (myelodysplastic syndrome) (HCC) 10/17/2024 12:30 PM CDT Infusion [address] [place] [address] 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); MDS (myelodysplastic syndrome) (HCC); Encounter for care related to Port-a-Cath 10/17/2024 11:15 AM CDT Lab [address] [place] [phone] MDS (myelodysplastic syndrome) (HCC) 10/17/2024 Orders Only [facility] [address] [place] [address] Medical Office [facility] [address] [place] [address] [place] Chapa MD MDS (myelodysplastic syndrome) (HCC) (Primary Dx); Anemia in neoplastic disease 10/14/2024 8:30 AM CDT Infusion [address] [place] [phone] MDS (myelodysplastic syndrome) (HCC) 10/14/2024 8:00 AM CDT Lab [address] [place] [phone] MDS (myelodysplastic syndrome) (HCC) 10/14/2024 8:00 AM CDT Office Visit [facility] [address] [place] [address] Medical Office dg [address] [place] [address] Chalino Chapa MD MDS (myelodysplastic syndrome) (HCC) (Primary Dx); Interstitial lung disease (HCC) 10/14/[address] [address] Yadi Gtz RN 10/11/2024 11:45 AM CDT Lab [address] [place] [phone] MDS (myelodysplastic syndrome) (HCC) 10/11/2024 Telephone [facility] [address] [place] [address] Office [facility] [address] [place] [address] Radha Brink RN 10/11/2024 Telephone [facility] [address] [place] [address] Office [facility] [address] [place] [address] Clau Cabral, T 09/28/2024 7:21 PM CDT - 10/07/2024 3:45 PM CDT Hospital Encounter [place] [address] [address] [place] [address] Philip Bran MD Singh, Anjanya Devendra, MD [...] self care 09/23/2024 9:00 AM CDT Infusion [address] [place] [phone] 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); MDS (myelodysplastic syndrome) (HCC); Chronic anemia 09/23/2024 8:15 AM CDT Lab [facility] [address] [place] [address] Anemia, unspecified type (Primary Dx); MDS (myelodysplastic syndrome) (HCC) 09/23/[address] [place] [address] Lourdes Hudson RN 09/23/2024 Orders Only [facility] [address] [place] [address] [address] [place] [address] Chalino Chapa MD 09/23/2024 Orders Only [facility] [address] [place] [address] Medical Office [facility] [address] [place] [address] Chalino Chapa MD MDS (myelodysplastic syndrome) (HCC) (Primary Dx); Chronic anemia 09/16/2024 9:30 AM CDT Infusion [address] [place] [address] 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); MDS (myelodysplastic syndrome) (HCC); Encounter for care related to Port-a-Cath 09/16/2024 9:15 AM CDT Office Visit [facility] [address] [place] [address] [address] [place] [address] Milla Armenta, CLAUDIA MDS (myelodysplastic syndrome) (HCC) (Primary Dx) 09/16/2024 8:45 AM CDT Lab [address] [place] [phone] MDS (myelodysplastic syndrome) (HCC) 09/16/[address] [place] [phone] Chalino Chapa MD 09/13/2024 10:00 AM CDT Infusion [address] [place] [address] MDS (myelodysplastic syndrome) (HCC) (Primary Dx); Encounter for care related to Port-a-Cath 09/13/2024 Telephone [facility] [address] [place] [address] Office [facility] [address] [place] [address] Clau Cabral, CLT 09/12/2024 11:00 AM CDT Infusion [address] [place] [address] MDS (myelodysplastic syndrome) (HCC) (Primary Dx); Encounter for care related to Port-a-Cath 09/11/2024 10:00 AM CDT Infusion [address] [place] [phone] MDS (myelodysplastic syndrome) (HCC) (Primary Dx); Encounter for care related to Port-a-Cath 09/11/2024 Orders Only [facility] [address] [place] [address] Medical Office [facility] [address] [place] [address] Milla Armenta, CLAUDIA 09/10/2024 11:30 AM CDT Infusion [address] [place] [phone] MDS (myelodysplastic syndrome) (HCC) (Primary Dx); Encounter for care related to Port-a-Cath 09/09/2024 9:30 AM CDT Infusion [address] [place] [phone] MDS (myelodysplastic syndrome) (HCC) (Primary Dx); Encounter for care related to Port-a-Cath 09/09/2024 9:15 AM CDT Office Visit [facility] [address] [place] [address] Medical Office [facility] [address] [place] [address] Milla Armenta, TIMBER SURVEYOR MDS (myelodysplastic syndrome) (HCC) (Primary Dx) 09/09/2024 8:45 AM CDT Lab [address] [place] [phone] MDS (myelodysplastic syndrome) (HCC) from Last 3 Months Immunizations Immunization Administration Dates Next Due Influenza, Quadrivalent, Hig h Dose, Preservative Free, Intrr 03/14/2023,01/07/2022,01/15/2021,01/12 Influenza, Quadrivalent, Spl it, Intramuscular 02/14/2019,12/02/2016 Influenza, Trivalent, High D ose, Split, Preservative Free, Intramuscular 02/06/2018,02/02/2016 Influenza, Trivalent, IM (MDV) ,02/01/2015,02/07/2014,02/13 Influenza, Trivalent, Preser vative Free, Intramuscular 02/13/2013 [...] eft knee, current 06/06/2018 Added automatically from [employer] for surgery [id number] PONV (postoperative nausea a nd vomiting) Anxiety [...] drink = 0.6 oz pur e alcohol) [facility] Utilities Answer Date Recorded In the past 12 months has [employer], gas, oil, or water [employer] threatened to shut off services in your [...] often do you attend chur ch or moravian services? Never 09/30/2024 Do you belong to any clubs o r organizations such as mosque groups, unions, fraternal or athletic groups, or [...] any time in the past 12 m [facility], were you homeless or living in a retirement (including now)? No 10/02/2024 Personal Safety Answer Date Recorded Have you ever been in or are you currently in a harmful physical or emotional relationship or is someone making you feel afraid or unsafe? 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 Gender Identity Not on file Sexual Orientation Not on file Obstetrics History Last Filed Vital Signs Vital Sign Reading Time Taken Comments Blood Pressure 94/65 12/03/2024 8:44 AM CDT Pulse 93 12/03/2024 8:44 AM CDT Temperature 36.3 C (97.3 F) 12/03/2024 8:44 AM CDT Respiratory Rate 18 12/03/2024 8:44 AM CDT Oxygen Saturation 98% 12/03/2024 8:44 AM CDT Inhaled Oxygen Concentration - - Weight 64.1 kg (141 lb 6.4 oz) 12/03/2024 8:44 A M CDT Height 152.4 cm (5') 11/11/2024 10:57 AM CDT Body Mass Index 27.62 11/11/2024 10:57 AM CDT Plan of Treatment Health Maintenance Due Date Last Done Comments Depression Screening 1940 Osteoporosis Screening-Bone Density Scan 1941 Hepatitis B Screening 1959 Well Visit 65+ 2006 Covid-19 Vaccine (2024- 6 season) 2024 01/23/2022, 09/24/2021, 02/01/2021, Additional history exists Influenza Vaccine (#1) 2024 , 01/07/2022, 02/01/2021, Additional history exists Fall Risk Assessment 10/07/2025 10/07/2024, 04/30/2024, 04/29/2024, Additional history exists DTaP/Tdap/Td Vaccine (2 - Td or Tdap) 09/08/2029 09/09/2019 Pneumococcal vaccine 65+ Completed 021, 05/18/2016, 04/03/2016, Additional history exists Zoster Vaccine Completed 03/29/2022, 10/02, 04/03/2016 Medical Devices Implanted Type Area Marine Habitat Resource Specialist Device Identifier Shelf Expiration Date Model / Serial / Lot Emre Chaparrita Powerport Mri Airguard 8fr 1 Lumen Attachable Catheter Latex Free [id number] - [id number] Implanted:Qty: 1 on 11/20/2023 by Shade Red MD at [facility] Right: Chest Emre Glasscock 09/30/2024 [id number] / / [id number] Procedures Procedure Name Priority Date/Time Associated Diagnosis Comments EGFR Routine 12/03/2024 8:30 AM CDT MDS (myelodysplastic syndrome) (HCC) DIFFERENTIAL AUTO Routine 12/03/2024 8:3 0 AM CDT CBC WITH AUTO DIFFERENTIAL Routine 12/03/2024 8:30 AM CDT COMPREHENSIVE METABOLIC PANEL Routine 12/03/2024 8:30 AM CDT MDS (myelodysplastic syndrome) (HCC) BLOOD SMEAR REVIEW Routine 11/29/2024 8: 25 AM CDT DIFFERENTIAL AUTO Routine 11/29/2024 8:2 5 AM CDT CBC WITH AUTO DIFFERENTIAL Routine 11/29/2024 8:25 AM CDT ANTIBODY SCREEN Routine 11/29/2024 8:25 AM CDT Anemia in neoplastic disease MDS (myelodysplastic syndrome) (HCC) ABO/RH Routine 11/29/2024 8:25 AM CDT Anemia in neoplastic disease MDS (myelodysplastic syndrome) (HCC) TYPE AND SCREEN Routine 11/29/2024 8:25 AM CDT Anemia in neoplastic disease MDS (myelodysplastic syndrome) (HCC) MANUAL DIFFERENTIAL Routine 11/26/2024 9 :50 AM CDT CBC WITH AUTO DIFFERENTIAL Routine 11/26/2024 9:50 AM CDT DIFFERENTIAL AUTO Routine 11/19/2024 10: 10 AM CDT MDS (myelodysplastic syndrome) (HCC) CBC WITH AUTO DIFFERENTIAL Routine 11/19/2024 10:10 AM CDT MDS (myelodysplastic syndrome) (HCC) TRANSFUSE RED BLOOD CELLS Timed 11/14/2024 11:35 AM CDT MDS (myelodysplastic syndrome) (HCC) Anemia in neoplastic disease PREPARE RBC Routine 11/14/2024 11:24 AM CDT MDS (myelodysplastic syndrome) (HCC) Anemia in neoplastic disease PREPARE RBC Routine 11/14/2024 11:22 AM CDT CROSSMATCH Routine 11/14/2024 9:50 AM CDT MDS (myelodysplastic syndrome) (HCC) ANTIBODY SCREEN Routine 11/14/2024 9:50 AM CDT MDS (myelodysplastic syndrome) (HCC) ABO/RH Routine 11/14/2024 9:50 AM CDT MDS (myelodysplastic syndrome) (HCC) TYPE AND SCREEN Routine 11/14/2024 9:50 AM CDT MDS (myelodysplastic syndrome) (HCC) DIFFERENTIAL AUTO Routine 11/14/2024 9:5 0 AM CDT MDS (myelodysplastic syndrome) (HCC) CBC WITH AUTO DIFFERENTIAL Routine 11/14/2024 9:50 AM CDT MDS (myelodysplastic syndrome) (HCC) ANTIBODY SCREEN Routine 11/11/2024 11:30 AM CDT MDS (myelodysplastic syndrome) (HCC) ABO/RH Routine 11/11/2024 11:30 AM CDT MDS (myelodysplastic syndrome) (HCC) TYPE AND SCREEN Routine 11/11/2024 11:30 AM CDT MDS (myelodysplastic syndrome) (HCC) VITAMIN B12 Routine 11/11/2024 11:30 AM CDT MDS (myelodysplastic syndrome) (HCC) FOLATE Routine 11/11/2024 11:30 AM CDT MDS (myelodysplastic syndrome) (HCC) ERYTHROPOIETIN Routine 11/11/2024 11:30 AM CDT MDS (myelodysplastic [...] 5:22 AM CDT DIFFERENTIAL AUTO Routine 10/01/2024 5: 22 AM CDT CBC WITH AUTO DIFFERENTIAL Routine [...] 9:00 AM CDT MDS (myelodysplastic syndrome) (HCC) from Last 3 Months Results * eGFR (12/03/2024 8:30 AM CDT) eGFR 89 >=60 mL/min/1. 73 [...] of Race in Diagnosing Kidney Disease, JASN 202). The CKD-EPI equation should not be used for patients with unstable renal function and has not been validated in children and those over 70. Current interpretive data was last reviewed 2021. Testing performed by: [facility], [facility], [place], [address] Blood 12/03/2024 8:30 AM CDT 12/03/2024 8:42 AM CDT us Chalino Chapa MD LAB BLOOD ORDERABLES Aylin freedman Result [facility] ([place]) [address] [place] [address] Department [place] [address] * (ABNORMAL) Differential, auto (12/03/2024 8:30 AM CDT) Neutrophil abs 0.88(L) 1.50 - 6.50 K/cumm Comment:Testing performed by : [facility], [place], [address] Imm gran abs 0.02 0.00 - 0.10 K/cumm [facility] ([place]) Comment:Testing performed by : [facility], [place], [address] Lymphocyte abs 0.52(L) 0.80 - 3.30 K/cumm [facility] ([place]) Comment:Testing performed by : [facility], [place], [address] Monocyte abs 0.12(L) 0.20 - 0.80 K/cumm [facility] ([place]) Comment:Testing performed by : [facility], [place], [address] Eosinophil abs 0.03 0.00 - 0.50 K/cumm [facility] ([place]) Comment:Testing performed by : [facility], [place], [address] Basophil abs 0.01 0.00 - 0.10 K/cumm [facility] ([place]) Comment:Testing performed by : [place], [address] Neutrophil pct 55.7 % [facility] ([place]) Comment: Interpretive Data Percent cell count reference ranges are not reported, since discordance with absolute values may lead to misinterpretation of CBC data. Current Interpretive Data was last revised on 2017. Testing performed by: [place], [address] Imm gran pct 1.3 % [facility] ([place]) Comment: Interpretive Data Percent cell count reference ranges are not reported, since discordance with absolute values may lead to misinterpretation of CBC data. Current Interpretive Data was last revised on 2017. Testing performed by: [place], [address] Lymphocyte pct 32.9 % [facility] ([place]) Comment: Interpretive Data Percent cell count reference ranges are not reported, since discordance with absolute values may lead to misinterpretation of CBC data. Current Interpretive Data was last revised on 2017. Testing performed by: [place], [address] Monocyte pct 7.6 % [facility] ([place]) Comment: Interpretive Data Percent cell count reference ranges are not reported, since discordance with absolute values may lead to misinterpretation of CBC data. Current Interpretive Data was last revised on 2017. Testing performed by: [place], [address] Eosinophil pct 1.9 % [facility] ([place]) Comment: Interpretive Data Percent cell count reference ranges are not reported, since discordance with absolute values may lead to misinterpretation of CBC data. Current Interpretive Data was last revised on 2017. Testing performed by: [place], [address] Basophil pct 0.6 % [facility] ([place]) Comment: Interpretive Data Percent cell count reference ranges are not reported, since discordance with absolute values may lead to misinterpretation of CBC data. Current Interpretive Data was last revised on 2017. Testing performed by: [place], [address] Blood 12/03/2024 8:30 AM CDT 12/03/2024 8:58 AM CDT us Chalino Chapa MD LAB BLOOD ORDERABLES Aylin freedman Result [facility] ([place]) [address] [facility] Department [place] [address] * (ABNORMAL) CBC with auto differential (12/03/2024 8:30 AM CDT) WBC 1.58(L) 3.80 - 9.90 K/cumm Comment:Testing performed by : [place], [address] Hgb 8.1(L) 11.9 - 15.5 g/dL [facility] ([place]) Comment:Testing performed by : [facility], [place], Hct 24.2(L) 35.6 - 45.5 % [facility] ([place]) Comment:Testing performed by : [facility], [place], [place], Plt 156 150 - 400 K/cumm [facility] ([place]) Comment:Testing performed by : [place], [place], MPV 11.6 9.1 - 12.3 fL [facility] ([place]) Comment:Testing performed by : [place], RBC 2.11(L) 3.90 - 5.20 M/cumm [facility] ([place]) Comment:Testing performed by : [place], MCV 114.7(H) 81.3 - 96.4 fL [facility] ([place]) Comment:Testing performed by : [place], [address] MCH 38.4(H) 27.1 - 33.3 pg [facility] ([place]) Comment:Testing performed by : [place], MCHC 33.5 32.3 - 35.7 g/dL [facility] ([place]) Comment:Testing performed by : [place], RDW CV 23.4(H) 11.1 - 14.9 % [facility] ([place]) Comment:Testing performed by : [place], [address] RDW SD 94.7(H) 35.7 - 48.1 fL [facility] ([place]) Comment:Testing performed by : [place], NRBC abs 0.00 0.00 - 0.01 K/cumm [facility] ([place]) Comment:Testing performed by : [facility], [facility], [place], [address] Morphologic Screen Results confirmed by manual morphology review. [facility] ([place]) Comment:Testing performed by : [facility], [facility], [place], [address] Blood 12/03/2024 8:30 AM CDT 12/03/2024 8:58 AM CDT us Chalino Chapa MD LAB BLOOD ORDERABLES Aylin freedman Result [facility] ([place]) [address] [facility] Department [place] [address] * (ABNORMAL) Comprehensive metabolic panel (12/03/2024 8:30 AM CDT) Sodium 140 135 - 145 mmol/L [facility] ([place]) Potassium, pl 4.2 3.3 - 4.9 mmol/L [facility] ([place]) Chloride 99 97 - 110 mmol/L [facility] ([place]) CO2 31 22 - 32 mmol/L [facility] ([place]) Anion gap 10 2 - 15 mmol/L [facility] ([place]) BUN 10 6 - 25 mg/dL [facility] ([place]) Creatinine 0.61 0.60 - 1.10 mg/dL [facility] ([place]) Glucose 129 70 - 199 mg/dL [facility] ([place]) Comment: Interpretive Data Fasting glucose [...] interpretive data was last revised 2022. Calcium 9.9 8.5 - 10.3 mg/dL [facility] ([place]) Bilirubin, total 0.9 0.1 - 1.2 mg/dL [facility] ([place]) Protein, pl 6.7 6.5 - 8.5 g/dL [facility] ([place]) Albumin 4.3 3.5 - 5.0 g/dL [facility] ([place]) Alk phos 48 40 - 130 Units/L [facility] ([place]) ALT 53(H) 7 - 45 Units/L [facility] ([place]) AST 28 10 - 45 Units/L [facility] ([place]) Blood 12/03/2024 8:30 AM CDT 12/03/2024 8:42 AM CDT us Chalino Chapa MD LAB BLOOD ORDERABLES Aylin freedman Result [facility] ([place]) [address] [facility] Department [place] [address] * (ABNORMAL) Blood smear review (11/29/2024 8:25 AM CDT) RBC morphology Consistent with RBC Indicies Comment:Testing performed by : [facility], [place], [address] Anisocytosis Moderate(A) [facility] ([place]) Comment:Testing performed by : [place], [address] Microcytes 3-7/HPF(A) SABRA Silva ([place]) Comment:Testing performed by : [place], [address] Macrocytes 3-7/HPF(A) SABRA Silva ([place]) Comment:Testing performed by : [facility], [place], [address] Elliptocytes 3-7/HPF(A) [facility] ([place]) Comment:Testing performed by : [facility], [place], [address] Teardrop cells 3-7/HPF(A) [facility] ([place]) Comment:Testing performed by : [place], [address] Platelet estimate Adequate [facility] ([place]) Comment:Testing performed by : [facility], [place], [address] Blood 11/29/2024 8:25 AM CDT 11/29/2024 8:43 AM CDT us Chalino Chapa MD LAB BLOOD ORDERABLES Aylin tano Result [facility] ([place]) [address] [place] [address] Department [place] [address] * (ABNORMAL) Differential, auto (11/29/2024 8:25 AM CDT) Neutrophil abs 1.31(L) 1.50 - 6.50 K/cumm Comment:Testing performed by : [place], [address] Imm gran abs 0.01 0.00 - 0.10 K/cumm [facility] ([place]) Comment:Testing performed by : [place], [address] Lymphocyte abs 0.84 0.80 - 3.30 K/cumm [facility] ([place]) Comment:Testing performed by : [facility], [place], [address] Monocyte abs 0.18(L) 0.20 - 0.80 K/cumm [facility] ([place]) Comment:Testing performed by : [facility], [place], [address] Eosinophil abs 0.03 0.00 - 0.50 K/cumm [facility] ([place]) Comment:Testing performed by : [facility], [place], [address] Basophil abs 0.01 0.00 - 0.10 K/cumm [facility] ([place]) Comment:Testing performed by : [place], [address] Neutrophil pct 55.0 % [facility] ([place]) Comment: Interpretive Data Percent cell count reference ranges are not reported, since discordance with absolute values may lead to misinterpretation of CBC data. Current Interpretive Data was last revised on 2017. Testing performed by: [place], [address] Imm gran pct 0.4 % [facility] ([place]) Comment: Interpretive Data Percent cell count reference ranges are not reported, since discordance with absolute values may lead to misinterpretation of CBC data. Current Interpretive Data was last revised on 2017. Testing performed by: [place], [address] Lymphocyte pct 35.3 % [facility] ([place]) Comment: Interpretive Data Percent cell count reference ranges are not reported, since discordance with absolute values may lead to misinterpretation of CBC data. Current Interpretive Data was last revised on 2017. Testing performed by: [place], [address] Monocyte pct 7.6 % [facility] ([place]) Comment: Interpretive Data Percent cell count reference ranges are not reported, since discordance with absolute values may lead to misinterpretation of CBC data. Current Interpretive Data was last revised on 2017. Testing performed by: [place], [address] Eosinophil pct 1.3 % [facility] ([place]) Comment: Interpretive Data Percent cell count reference ranges are not reported, since discordance with absolute values may lead to misinterpretation of CBC data. Current Interpretive Data was last revised on 2017. Testing performed by: [place], [address] Basophil pct 0.4 % [facility] ([place]) Comment: Interpretive Data Percent cell count reference ranges are not reported, since discordance with absolute values may lead to misinterpretation of CBC data. Current Interpretive Data was last revised on 2017. Testing performed by: [place], [address] Blood 11/29/2024 8:25 AM CDT 11/29/2024 8:43 AM CDT us Chalino Chapa MD LAB BLOOD ORDERABLES Aylin freedman Result SABRA SUE ([place]) 1 [facility] Department [place] [address] * (ABNORMAL) CBC with auto differential (11/29/2024 8:25 AM CDT) WBC 2.38(L) 3.80 - 9.90 K/cumm Comment:Testing performed by : [facility], [place], [address] Hgb 7.9(L) 11.9 - 15.5 g/dL [facility] ([place]) Comment:Testing performed by : [facility], [place], Hct 24.1(L) 35.6 - 45.5 % [facility] ([place]) Comment:Testing performed by : [facility], [place], Plt 158 150 - 400 K/cumm [facility] ([place]) Comment:Testing performed by : [place], MPV 11.1 9.1 - 12.3 fL [facility] ([place]) Comment:Testing performed by : [facility], [place], RBC 2.11(L) 3.90 - 5.20 M/cumm [facility] ([place]) Comment:Testing performed by : [facility], [place], MCV 114.2(H) 81.3 - 96.4 fL [facility] ([place]) Comment:Testing performed by : [facility], [place], MCH 37.4(H) 27.1 - 33.3 pg [facility] ([place]) Comment:Testing performed by : [place], MCHC 32.8 32.3 - 35.7 g/dL [facility] ([place]) Comment:Testing performed by : [facility], [place], RDW CV Not Measured 11.1 - 14.9 % [facility] ([place]) Comment:Testing performed by : [facility], [place], RDW SD Not Measured 35.7 - 48.1 fL [facility] ([place]) Comment:Testing performed by : [facility], [place], NRBC abs 0.00 0.00 - 0.01 K/cumm [facility] ([place]) Comment:Testing performed by : [place], [address] Blood 11/29/2024 8:25 AM CDT 11/29/2024 8:43 AM CDT Chalino Chapa MD LAB BLOOD ORDERABLES Aylin l Result SABRA ROGERS ([place]) [address] [place] [address] Department [place] [address] * ABO/Rh (11/29/2024 8:25 AM CDT) ABO/Rh O Positive Comment:Testing performed by : [place], [address] Blood 11/29/2024 8:25 AM CDT 11/29/2024 8:40 AM CDT Narrative SABRA ROGERS ([place]) - 11/29/2024 9:17 AM CDT Has the patient had Daratumumab or Isatuximab in the past 6 months?->No Chalino Chapa MD LAB BLOOD BANK TEST ORDER LAITH Final Result Performing Organization Address [facility] Co de Phone Number SABRA ROGERS ([place]) [address] [place] [address] [place] [address] * Antibody screen (11/29/2024 8:25 AM CDT) Rivera, indirect, Gel Interpretation Negative ABSC Comment:Testing performed by : [facility], [place], [address] Blood 11/29/2024 8:25 AM CDT 11/29/2024 8:40 AM CDT Narrative AMYPAOLA ROGERS ([place]) - 11/29/2024 9:17 AM CDT Has the patient had Daratumumab or Isatuximab in the past 6 months?->No Chalino Chapa MD LAB BLOOD BANK TEST ORDER LAITH Final Result SABRA ROGERS ([place]) [address] [place] [address] Department [place] [address] * (ABNORMAL) CBC with auto differential (11/26/2024 9:50 AM CDT) WBC 1.44(L) 3.80 - 9.90 K/cumm Comment:Testing performed by : [place], [address] Hgb 7.7(L) 11.9 - 15.5 g/dL [facility] ([place]) Comment:Testing performed by : [place], [address] Hct 24.4(L) 35.6 - 45.5 % [facility] ([place]) Comment:Testing performed by : [place], [address] Plt 146(L) 150 - 400 K/cumm [facility] ([place]) Comment:Testing performed by : [place], [address] MPV 11.0 9.1 - 12.3 fL [facility] ([place]) Comment:Testing performed by : [place], [address] RBC 2.13(L) 3.90 - 5.20 M/cumm [facility] ([place]) Comment:Testing performed by : [place], [address] MCV 114.6(H) 81.3 - 96.4 fL [facility] ([place]) Comment:Testing performed by : [place], [address] MCH 36.2(H) 27.1 - 33.3 pg [facility] ([place]) Comment:Testing performed by : [place], [address] MCHC 31.6(L) 32.3 - 35.7 g/dL [facility] ([place]) Comment:Testing performed by : [place], [address] RDW CV 24.3(H) 11.1 - 14.9 % [facility] ([place]) Comment:Testing performed by : [place], [address] RDW SD 97.2(H) 35.7 - 48.1 fL [facility] ([place]) Comment:Testing performed by : [facility], [place], [address] NRBC abs 0.00 0.00 - 0.01 K/cumm [facility] ([place]) Comment:Testing performed by : [facility], [place], [address] Blood 11/26/2024 9:50 AM CDT 11/26/2024 10:13 AM CDT us Chalino Chapa MD LAB BLOOD ORDERABLES Aylin freedman Result [facility] ([place]) 1 [facility] Department [place] [address] * (ABNORMAL) Manual Differential (11/26/2024 9:50 AM CDT) Differential Manual Comment:Testing performed by : [facility], [place], [address] Cells Counted 100 [facility] ([place]) Comment:Testing performed by : [facility], [place], [address] Neutrophil abs 0.81(L) 1.50 - 6.50 K/cumm [facility] ([place]) Comment:Testing performed by : [facility], [place], [address] Imm gran abs 0.03 0.00 - 0.10 K/cumm [facility] ([place]) Comment:Testing performed by : [facility], [place], [address] Lymphocyte abs 0.46(L) 0.80 - 3.30 K/cumm [facility] ([place]) Comment:Testing performed by : [facility], [place], [address] Monocyte abs 0.04(L) 0.20 - 0.80 K/cumm [facility] ([place]) Comment:Testing performed by : [facility], [place], [address] Eosinophil abs 0.10 0.00 - 0.50 K/cumm [facility] ([place]) Comment:Testing performed by : [place], [address] Neutrophil pct 54.0 % [facility] ([place]) Comment: Interpretive Data Percent cell count reference ranges are not reported, since discordance with absolute values may lead to misinterpretation of CBC data. Current Interpretive Data was last revised on 2017. Testing performed by: [facility], [place], [address] Lymphocyte pct 32.0 % [facility] ([place]) Comment: Interpretive Data Percent cell count reference ranges are not reported, since discordance with absolute values may lead to misinterpretation of CBC data. Current Interpretive Data was last revised on 2017. Testing performed by: [place], [address] Monocyte pct 3.0 % [facility] ([place]) Comment: Interpretive Data Percent cell count reference ranges are not reported, since discordance with absolute values may lead to misinterpretation of CBC data. Current Interpretive Data was last revised on 2017. Testing performed by: [facility], [place], [address] Eosinophil pct 7.0 % [facility] ([place]) Comment: Interpretive Data Percent cell count reference ranges are not reported, since discordance with absolute values may lead to misinterpretation of CBC data. Current Interpretive Data was last revised on 2017. Testing performed by: [facility], [place], [address] Band Neutrophil pct 2.0 0.0 - 5.0 % [facility] ([place]) Comment:Testing performed by : [facility], [place], [address] Myelocyte pct 2.0(H) 0.0 - 0.0 % [facility] ([place]) Comment:Testing performed by : [facility], [place], [address] RBC morphology Consistent with RBC Indicies [facility] ([place]) Comment:Testing performed by : [facility], [place], [address] Platelet estimate Automated Count Confirmed [facility] ([place]) Comment:Testing performed by : [facility], [place], [address] Blood 11/26/2024 9:50 AM CDT 11/26/2024 10:13 AM CDT us Chalino Chapa MD LAB BLOOD ORDERABLES Aylin freedman Result [facility] ([place]) 1 [facility] Department [place] [address] * (ABNORMAL) Differential, auto (11/19/2024 10:10 AM CDT) Neutrophil abs 1.05(L) 1.50 - 6.50 K/cumm [facility] ([place]) Comment:Testing performed by : [facility] [address], Medical Office [facility] [address], [place] [address] Imm gran abs 0.00 0.00 - 0.10 K/cumm [facility] ([place]) Comment:Testing performed by : [facility] [address], Medical Office [facility] [address], [place] [address] Lymphocyte abs 0.50(L) 0.80 - 3.30 K/cumm [facility] ([place]) Comment:Testing performed by : [facility] [address], Medical Office [facility] [address], [place] [address] Monocyte abs 0.14(L) 0.20 - 0.80 K/cumm [facility] ([place]) Comment:Testing performed by : [facility] [address], Medical Office [facility] [address], [place] [address] Eosinophil abs 0.02 0.00 - 0.50 K/cumm [facility] ([place]) Comment:Testing performed by : [facility] [address], Medical Office [facility] [address], [place] [address] Basophil abs 0.02 0.00 - 0.10 K/cumm [facility] ([place]) Comment:Testing performed by : [facility] [address], Medical Office [facility] [address], [place] [address] Neutrophil pct 60.6 % [facility] ([place]) Comment: Interpretive Data Percent cell count reference ranges are not reported, since discordance with absolute values may lead to misinterpretation of CBC data. Current Interpretive Data was last revised on 2022. Testing performed by: [facility] [address], Medical Office [address], [place] [address] Imm gran pct 0.0 % [facility] ([place]) Comment: Interpretive Data Percent cell count reference ranges are not reported, since discordance with absolute values may lead to misinterpretation of CBC data. Current Interpretive Data was last revised on 2022. Testing performed by: [facility] [address], Medical Office [address], [place] [address] Lymphocyte pct 28.9 % [facility] ([place]) Comment: Interpretive Data Percent cell count reference ranges are not reported, since discordance with absolute values may lead to misinterpretation of CBC data. Current Interpretive Data was last revised on 2022. Testing performed by: [facility] [address], Medical Office [address], [place] [address] Monocyte pct 8.1 % [facility] ([place]) Comment: Interpretive Data Percent cell count reference ranges are not reported, since discordance with absolute values may lead to misinterpretation of CBC data. Current Interpretive Data was last revised on 2022. Testing performed by: [facility] [address], Medical Office [facility] [address], [place] [address] Eosinophil pct 1.2 % [facility] ([place]) Comment: Interpretive Data Percent cell count reference ranges are not reported, since discordance with absolute values may lead to misinterpretation of CBC data. Current Interpretive Data was last revised on 2022. Testing performed by: [facility] [address], Medical Office [facility] [address], [place] [address] Basophil pct 1.2 % [facility] ([place]) Comment: Interpretive Data Percent cell count reference ranges are not reported, since discordance with absolute values may lead to misinterpretation of CBC data. Current Interpretive Data was last revised on 2022. Testing performed by: [facility] [address], Medical Office [address], [place] [address] Blood 11/19/2024 10:1 0 AM CDT 11/19/2024 10:10 AM CDT us Chalino Chapa MD LAB BLOOD ORDERABLES Aylin freedman Result [facility] ([place]) 1 [facility] Department [place] [address] * (ABNORMAL) CBC with auto differential (11/19/2024 10:10 AM CDT) WBC 1.73(L) 3.80 - 9.90 K/cumm [facility] ([place]) Comment:Testing performed by : [facility] [address], Medical Office [address], [place] [address] Hgb 8.4(L) 11.9 - 15.5 g/dL [facility] ([place]) Comment:Testing performed by : [facility] [address], Medical Office [address], [place] [address] Hct 25.6(L) 35.6 - 45.5 % [facility] ([place]) Comment:Testing performed by : [facility] [address], Medical Office [address], [place] [address] Plt 119(L) 150 - 400 K/cumm [facility] ([place]) Comment:Testing performed by : [facility] [address], Medical Office [address], [place] [address] MPV 10.6 9.1 - 12.3 fL [facility] ([place]) Comment:Testing performed by : [facility] [address], Medical Office [address], [place] [address] RBC 2.29(L) 3.90 - 5.20 M/cumm [facility] ([place]) Comment:Testing performed by : [facility] [address], Medical Office [address], [place] [address] MCV 111.8(H) 81.3 - 96.4 fL [facility] ([place]) Comment:Testing performed by : [facility] [address], Medical Office [address], [place] [address] MCH 36.7(H) 27.1 - 33.3 pg [facility] ([place]) Comment:Testing performed by : [facility] [address], Medical Office [address], [place] [address] MCHC 32.8 32.3 - 35.7 g/dL SABRA ROGERS ([place]) Comment:Testing performed by : [facility] [address], Medical Office [address], [place] [address] RDW CV 24.9(H) 11.1 - 14.9 % SABRA ROGERS ([place]) Comment:Testing performed by : [facility] [address], Medical Office [address], [place] [address] RDW SD 96.8(H) 35.7 - 48.1 fL SABRA ROGERS ([place]) Comment:Testing performed by : [facility] [address], Medical Office [facility] [address], [place] [address] Blood 11/19/2024 10:1 0 AM CDT 11/19/2024 10:10 AM CDT Narrative SABRA ROGERS ([place]) - 11/19/2024 10:13 AM CDT 11/19, 11/26, 12/03 us Chalino Chapa MD LAB BLOOD ORDERABLES Aylin l Result SABRA ROGERS ([place]) 1 [facility] Department [place] [address] * Transfuse RBC (11/14/2024 1:18 PM CDT) Blood us Chalino Chapa MD BLOOD TRANSFUSION ORDERAB LES Final Result * Prepare RBC: 1 Units (11/14/2024 11:24 AM CDT) Units requested 1 Comment:Testing performed by : [facility], [facility], [place], [address] Units requested Ready EMMY ROGERS ([place]) Comment:Testing performed by : [facility], [facility], [place], [address] Blood 11/14/2024 11:2 4 AM CDT 11/14/2024 11:24 AM CDT Narrative [facility] ([place]) - 11/14/2024 11:24 AM CDT 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 (All products are leukoreduced and CMV- safe)->No us Chalino Chapa MD BLOOD BANK PRODUCT ORDERA BLES Final Result SABRA ROGERS ([place]) 1 [facility] Department [place] [address] * Prepare RBC (11/14/2024 11:22 AM CDT) Unit Number [id number] Product code [id number] [facility] ([place]) Blood Expiration Date [id number] [facility] ([place]) Product Blood Type (for scanning) 5100 [facility] ([place]) Product Blood Type OPOS [facility] ([place]) Dispense Status DISPENSED [facility] ([place]) us Chalino Chapa MD BLOOD BANK PRODUCT ORDERA BLES Final Result SABRA ROGERS ([place]) 1 [facility] [place] [address] * (ABNORMAL) Differential, auto (11/14/2024 9:50 AM CDT) Neutrophil abs 0.90(L) 1.50 - 6.50 K/cumm Comment:Testing performed by : [place], [address] Imm gran abs 0.01 0.00 - 0.10 K/cumm [facility] ([place]) Comment:Testing performed by : [place], [address] Lymphocyte abs 0.46(L) 0.80 - 3.30 K/cumm [facility] ([place]) Comment:Testing performed by : [place], [address] Monocyte abs 0.18(L) 0.20 - 0.80 K/cumm [facility] ([place]) Comment:Testing performed by : [facility], [facility], [place], [address] Eosinophil abs 0.03 0.00 - 0.50 K/cumm [facility] ([place]) Comment:Testing performed by : [facility], [facility], [place], [address] Basophil abs 0.01 0.00 - 0.10 K/cumm [facility] ([place]) Comment:Testing performed by : [place], [address] Neutrophil pct 56.7 % [facility] ([place]) Comment: Interpretive Data Percent cell count reference ranges are not reported, since discordance with absolute values may lead to misinterpretation of CBC data. Current Interpretive Data was last revised on 2017. Testing performed by: [facility], [place], [address] Imm gran pct 0.6 % [facility] ([place]) Comment: Interpretive Data Percent cell count reference ranges are not reported, since discordance with absolute values may lead to misinterpretation of CBC data. Current Interpretive Data was last revised on 2017. Testing performed by: [place], [address] Lymphocyte pct 28.9 % [facility] ([place]) Comment: Interpretive Data Percent cell count reference ranges are not reported, since discordance with absolute values may lead to misinterpretation of CBC data. Current Interpretive Data was last revised on 2017. Testing performed by: [place], [address] Monocyte pct 11.3 % [facility] ([place]) Comment: Interpretive Data Percent cell count reference ranges are not reported, since discordance with absolute values may lead to misinterpretation of CBC data. Current Interpretive Data was last revised on 2017. Testing performed by: [place], [address] Eosinophil pct 1.9 % [facility] ([place]) Comment: Interpretive Data Percent cell count reference ranges are not reported, since discordance with absolute values may lead to misinterpretation of CBC data. Current Interpretive Data was last revised on 2017. Testing performed by: [place], [address] Basophil pct 0.6 % [facility] ([place]) Comment: Interpretive Data Percent cell count reference ranges are not reported, since discordance with absolute values may lead to misinterpretation of CBC data. Current Interpretive Data was last revised on 2017. Testing performed by: [place], [address] Blood 11/14/2024 9:50 AM CDT 11/14/2024 10:09 AM CDT us Chalino Chapa MD LAB BLOOD ORDERABLES Aylin freedman Result [facility] ([place]) [address] [place] [address] Department [place] [address] * (ABNORMAL) CBC with auto differential (11/14/2024 9:50 AM CDT) WBC 1.59(L) 3.80 - 9.90 K/cumm Comment:Testing performed by : [facility], [place], [address] Hgb 7.2(L) 11.9 - 15.5 g/dL [facility] ([place]) Comment:Testing performed by : [place], [address] Hct 22.7(L) 35.6 - 45.5 % [facility] ([place]) Comment:Testing performed by : [place], [address] Plt 131(L) 150 - 400 K/cumm [facility] ([place]) Comment:Testing performed by : [place], [address] MPV 11.3 9.1 - 12.3 fL [facility] ([place]) Comment:Testing performed by : [place], [address] RBC 2.05(L) 3.90 - 5.20 M/cumm [facility] ([place]) Comment:Testing performed by : [place], [address] MCV 110.7(H) 81.3 - 96.4 fL [facility] ([place]) Comment:Testing performed by : [facility], [facility], [place], [address] MCH 35.1(H) 27.1 - 33.3 pg SABRA ROGERS ([place]) Comment:Testing performed by : [facility], [facility], [place], [address] MCHC 31.7(L) 32.3 - 35.7 g/dL SABRA ROGERS ([place]) Comment:Testing performed by : [facility], [facility], [place], [address] RDW CV Not Measured 11.1 - 14.9 % SABRA ROGERS ([place]) Comment:Testing performed by : [facility], [facility], [place], [address] RDW SD Not Measured 35.7 - 48.1 fL SABRA ROGERS ([place]) Comment:Testing performed by : [facility], [facility], [place], [address] Morphologic Screen Results confirmed by manual morphology review. SABRA ROGERS ([place]) Comment:Testing performed by : [facility], [place], [address] Blood 11/14/2024 9:50 AM CDT 11/14/2024 10:09 AM CDT us Chalino Chapa MD LAB BLOOD ORDERABLES Aylin freedman Result SABRA ROGERS ([place]) 1 [facility] Department [place] [address] * ABO/Rh (11/14/2024 9:50 AM CDT) ABO/Rh O Positive Comment:Testing performed by : [facility], [facility], [place], [address] Blood 11/14/2024 9:50 AM CDT 11/14/2024 10:12 AM CDT Narrative SABRA ROGERS ([place]) - 11/14/2024 10:58 AM CDT 11/19, 11/26, 12/03 Has the patient had Daratumumab or Isatuximab in the past 6 months?->Unknown us Chalino Chapa MD LAB BLOOD BANK TEST ORDER LAITH Final Result SABRA [facility], [facility] ([place]) 1 [facility] Department [place] [address] * Crossmatch (11/14/2024 9:50 AM CDT) Pathologist [facility] Crossmatch Compatible SABRA Ricardo ([place]) Unit number for crossmatch [id number] SABRA [facility], [facility] ([place]) Blood 11/14/2024 9:50 AM CDT 11/14/2024 10:12 AM CDT us Chalino Chapa MD LAB BLOOD BANK TEST ORDER LAITH Final Result Performing Organization Address [facility] Co de Phone Number SABRA ROGERS ([place]) 1 [place] [address] * Antibody screen (11/14/2024 9:50 AM CDT) [facility] Rivera, indirect, Gel Interpretation Negative ABSC Comment:Testing performed by : [facility], One [facility], [place], [address] Blood 11/14/2024 9:50 AM CDT 11/14/2024 10:12 AM CDT Narrative SABRA [facility], [facility] ([place]) - 11/14/2024 10:58 AM CDT 11/19, 11/26, 12/03 Has the patient had Daratumumab or Isatuximab in the past 6 months?->Unknown us Chalino Chapa MD LAB BLOOD BANK TEST ORDER LAITH Final Result Performing Organization Address City/[facility]/ZIP Co de Phone Number SABRA [facility], [facility] ([place]) 1 [facility] [place] [address] * (ABNORMAL) Erythropoietin (11/11/2024 11:30 AM CDT) Pathologist [facility] Erythropoietin 781(H) 2.6 - 18.5 mIUnits/m L Gracey ref Lab Comment: Test Performed by: [facility] [address] [place] [id number] [employer] Hel[employer]: Lloyd Olmstead Ph.D.; IA# [id number] Testing performed by: [place], [address] Blood 11/11/2024 11:3 0 AM CDT 11/11/2024 11:53 AM CDT Chalino Chapa MD LAB BLOOD ORDERABLES Aylin l Result Performing Organization Address City/[facility]/ZIP Co de Phone Number SABRA [facility] ([place]) [address] [place] [address] Department [place] [address] [facility] ref [facility] * ABO/Rh (11/11/2024 11:30 AM CDT) ABO/Rh O Positive Comment:Testing performed by : [place], [address] Blood 11/11/2024 11:3 0 AM CDT 11/11/2024 11:53 AM CDT Narrative [facility] ([place]) - 11/11/2024 12:32 PM CDT Has the patient had Daratumumab or Isatuximab in the past 6 months?->Unknown Chalino Chapa MD LAB BLOOD BANK TEST ORDER LAITH Final Result Performing Organization Address [facility] de Phone Number SABRA [facility] ([place]) [address] [place] [address] Department [place] [address] * Antibody screen (11/11/2024 11:30 AM CDT) Rivera, indirect, Gel Interpretation Negative ABSC Comment:Testing performed by : [place], [address] Blood 11/11/2024 11:3 0 AM CDT 11/11/2024 11:53 AM CDT Narrative [facility] ([place]) - 11/11/2024 12:32 PM CDT Has the patient had Daratumumab or Isatuximab in the past 6 months?->Unknown Chalino Chapa MD LAB BLOOD BANK TEST ORDER LAITH Final Result SABRA ROGERS ([place]) [address] [facility] [place] [address] * (ABNORMAL) Folate (11/11/2024 11:30 AM CDT) Folic acid 3.5(L) >=5.0 ng/mL [facility] ([place]) Blood 11/11/2024 11:3 0 AM CDT 11/11/2024 11:53 AM CDT us Chalino Chapa MD LAB BLOOD ORDERABLES Aylin l Result SABRA ROGERS ([place]) 1 [facility] [place] [address] * Vitamin B12 (11/11/2024 11:30 AM CDT) Pathologist [facility] Vitamin B12 1,022 230 - 1,250 pg/mL [facility] ([place]) Blood 11/11/2024 11:3 0 AM CDT 11/11/2024 11:53 AM CDT us Chalino Chapa MD LAB BLOOD ORDERABLES Aylin l Result Performing Organization Address City/[facility]/ZIP Co de Phone Number SABRA ROGERS ([place]) 1 [facility] [place] [address] * (ABNORMAL) Differential, auto (11/11/2024 10:45 AM CDT) Neutrophil abs 1.08(L) 1.50 - 6.50 K/cumm [facility] ([place]) Comment:Testing performed by : [facility] [address], Medical Office [facility] [address], [place] [address] Imm gran abs 0.02 0.00 - 0.10 K/cumm [facility] ([place]) Comment:Testing performed by : [facility] [address], Medical Office [address], [place] [address] Lymphocyte abs 0.55(L) 0.80 - 3.30 K/cumm [facility] ([place]) Comment:Testing performed by : [facility] [address], Medical Office [facility] [address], [place] [address] Monocyte abs 0.17(L) 0.20 - 0.80 K/cumm [facility] ([place]) Comment:Testing performed by : [facility] [address], Medical Office [facility] [address], [place] [address] Eosinophil abs 0.04 0.00 - 0.50 K/cumm [facility] ([place]) Comment:Testing performed by : [facility] [address], Medical Office [facility] [address], [place] [address] Basophil abs 0.01 0.00 - 0.10 K/cumm [facility] ([place]) Comment:Testing performed by : [facility] [address], Medical Office [facility] [address], [place] [address] Neutrophil pct 57.8 % [facility] ([place]) Comment: Interpretive Data Percent cell count reference ranges are not reported, since discordance with absolute values may lead to misinterpretation of CBC data. Current Interpretive Data was last revised on 2022. Testing performed by: [facility] [address], Medical Office [facility] [address], [place] [address] Imm gran pct 1.1 % [facility] ([place]) Comment: Interpretive Data Percent cell count reference ranges are not reported, since discordance with absolute values may lead to misinterpretation of CBC data. Current Interpretive Data was last revised on 2022. Testing performed by: [facility] [address], Medical Office [facility] [address], [place] [address] Lymphocyte pct 29.4 % [facility] ([place]) Comment: Interpretive Data Percent cell count reference ranges are not reported, since discordance with absolute values may lead to misinterpretation of CBC data. Current Interpretive Data was last revised on 2022. Testing performed by: [facility] [address], Medical Office [facility] [address], [place] [address] Monocyte pct 9.1 % [facility] ([place]) Comment: Interpretive Data Percent cell count reference ranges are not reported, since discordance with absolute values may lead to misinterpretation of CBC data. Current Interpretive Data was last revised on 2022. Testing performed by: [facility] [address], Medical Office [facility] [address], [place] [address] Eosinophil pct 2.1 % EMELINA ROGERS ([place]) Comment: Interpretive Data Percent cell count reference ranges are not reported, since discordance with absolute values may lead to misinterpretation of CBC data. Current Interpretive Data was last revised on 2022. Testing performed by: [facility] [address], Medical Office [facility] [address] [facility] [address], [place] [address] Basophil pct 0.5 % SABRA ROGERS ([place]) Comment: Interpretive Data Percent cell count reference ranges are not reported, since discordance with absolute values may lead to misinterpretation of CBC data. Current Interpretive Data was last revised on 2022. Testing performed by: [facility] [address], Medical Office [facility] [address] [facility] [address], [place] [address] Blood 11/11/2024 10:4 5 AM CDT 11/11/2024 11:00 AM CDT Milla Armenta TIMBER SURVEYOR LAB BLOOD ORDERABLES Final Result SABRA ROGERS ([place]) 1 [facility] Department [place] [address] * (ABNORMAL) CBC with auto differential (11/11/2024 10:45 AM CDT) WBC 1.87(L) 3.80 - 9.90 K/cumm SABRA ROGERS ([place]) Comment:Testing performed by : [facility] [address], Medical Office [facility] [address], [place] [address] Hgb 7.2(L) 11.9 - 15.5 g/dL SABRA ROGERS ([place]) Comment:Testing performed by : [facility] [address], Medical Office [facility] [address], [place] [address] Hct 22.5(L) 35.6 - 45.5 % [facility] ([place]) Comment:Testing performed by : [facility] [address], Medical Office [address], [place] [address] Plt 111(L) 150 - 400 K/cumm [facility] ([place]) Comment:Testing performed by : [facility] [address], Medical Office [facility] [address], [place] [address] MPV 11.0 9.1 - 12.3 fL [facility] ([place]) Comment:Testing performed by : [facility] [address], Medical Office [facility] [address], [place] [address] RBC 2.03(L) 3.90 - 5.20 M/cumm [facility] ([place]) Comment:Testing performed by : [facility] [address], Medical Office [facility] [address], [place] [address] MCV 110.8(H) 81.3 - 96.4 fL [facility] ([place]) Comment:Testing performed by : [facility] [address], Medical Office [facility] [address], [place] [address] MCH 35.5(H) 27.1 - 33.3 pg [facility] ([place]) Comment:Testing performed by : [facility] [address], Medical Office [facility] [address], [place] [address] MCHC 32.0(L) 32.3 - 35.7 g/dL [facility] ([place]) Comment:Testing performed by : [facility] [address], Medical Office [facility] [address], [place] [address] RDW CV 26.2(H) 11.1 - 14.9 % [facility] ([place]) Comment:Testing performed by : [facility] [address], Medical Office [address], [place] [address] RDW SD 96.8(H) 35.7 - 48.1 fL [facility] ([place]) Comment:Testing performed by : [facility] [address], Medical Office [facility] [address], [place] [address] Blood 11/11/2024 10:4 5 AM CDT 11/11/2024 11:00 AM CDT us Milla Armenta NP LAB BLOOD ORDERABLES Final Result Performing Organization Address [facility]/ZIP Co de Phone Number SABRA ROGERS ([place]) 1 [facility] Department [place] [address] * eGFR (11/11/2024 8:11 AM CDT) eGFR [...] was last reviewed 2021. Testing performed by: [facility], [facility], [place], [address] Blood 11/11/2024 8:11 AM CDT 11/11/2024 11:14 AM CDT us Chalino Chapa MD LAB BLOOD ORDERABLES Aylin l Result SABRA ROGERS ([place]) 1 [facility] Department [place] [address] * (ABNORMAL) Comprehensive metabolic panel (11/11/2024 8:11 AM CDT) Sodium 138 135 - 145 mmol/L SABRA [facility] ([place]) Potassium, pl 3.9 3.3 - 4.9 mmol/L [...] MD LAB BLOOD ORDERABLES Aylin freedman Result [facility] ([place]) 1 [facility] Department [place] [address] * eGFR (10/21/2024 8:25 AM CDT) eGFR [...] was last reviewed 2021. Testing performed by: [place], [address] Blood 10/21/2024 8:25 AM CDT 10/21/2024 8:36 AM CDT us Chalino Chapa MD LAB BLOOD ORDERABLES Aylin freedman Result SABRA ROGERS ([place]) 1 [facility] Department [place] [address] * (ABNORMAL) Differential, auto (10/21/2024 8:25 AM CDT) Pathologist [facility] Neutrophil abs 0.69(L) 1.50 - 6.50 K/cumm Comment:Testing performed by : [place], [address] Imm gran abs 0.01 0.00 - 0.10 K/cumm SABRA ROGERS ([place]) Comment:Testing performed by : [place], [address] Lymphocyte abs 0.68(L) 0.80 - 3.30 K/cumm SABRA ROGERS ([place]) Comment:Testing performed by : [facility] [place], [address] Monocyte abs 0.16(L) 0.20 - 0.80 K/cumm [facility] ([place]) Comment:Testing performed by : [place], [address] Eosinophil abs 0.00 0.00 - 0.50 K/cumm [facility] ([place]) Comment:Testing performed by : [facility], [facility], [place], [address] Basophil abs 0.00 0.00 - 0.10 K/cumm [facility] ([place]) Comment:Testing performed by : [place], [address] Neutrophil pct 44.8 % [facility] ([place]) Comment: Interpretive Data Percent cell count reference ranges are not reported, since discordance with absolute values may lead to misinterpretation of CBC data. Current Interpretive Data was last revised on 2017. Testing performed by: [place], [address] Imm gran pct 0.6 % [facility] ([place]) Comment: Interpretive Data Percent cell count reference ranges are not reported, since discordance with absolute values may lead to misinterpretation of CBC data. Current Interpretive Data was last revised on 2017. Testing performed by: [place], [address] Lymphocyte pct 44.2 % [facility] ([place]) Comment: Interpretive Data Percent cell count reference ranges are not reported, since discordance with absolute values may lead to misinterpretation of CBC data. Current Interpretive Data was last revised on 2017. Testing performed by: [place], [address] Monocyte pct 10.4 % [facility] ([place]) Comment: Interpretive Data Percent cell count reference ranges are not reported, since discordance with absolute values may lead to misinterpretation of CBC data. Current Interpretive Data was last revised on 2017. Testing performed by: [place], [address] Eosinophil pct 0.0 % [facility] ([place]) Comment: Interpretive Data Percent cell count reference ranges are not reported, since discordance with absolute values may lead to misinterpretation of CBC data. Current Interpretive Data was last revised on 2017. Testing performed by: [facility], [facility], [place], [address] Basophil pct 0.0 % [facility] ([place]) Comment: Interpretive Data Percent cell count reference ranges are not reported, since discordance with absolute values may lead to misinterpretation of CBC data. Current Interpretive Data was last revised on 2017. Testing performed by: [facility], [place], [address] Blood 10/21/2024 8:25 AM CDT 10/21/2024 9:43 AM CDT us Chalino Chapa MD LAB BLOOD ORDERABLES Aylin freedman Result SABRA ROGERS ([place]) 1 [facility] Department [place] [address] * (ABNORMAL) CBC with auto differential (10/21/2024 8:25 AM CDT) WBC 1.54(L) 3.80 - 9.90 K/cumm Comment:Testing performed by : [facility], [place], [address] Hgb 8.5(L) 11.9 - 15.5 g/dL [facility] ([place]) Comment:Testing performed by : [facility], [place], [address] Hct 26.5(L) 35.6 - 45.5 % [facility] ([place]) Comment:Testing performed by : [facility], [place], [address] Plt 153 150 - 400 K/cumm [facility] ([place]) Comment:Testing performed by : [facility], [place], [address] MPV 11.8 9.1 - 12.3 fL [facility] ([place]) Comment:Testing performed by : [facility], [place], [address] RBC 2.67(L) 3.90 - 5.20 M/cumm [facility] ([place]) Comment:Testing performed by : [place], [address] MCV 99.3(H) 81.3 - 96.4 fL [facility] ([place]) Comment:Testing performed by : [facility], [place], MCH 31.8 27.1 - 33.3 pg [facility] ([place]) Comment:Testing performed by : [facility], [place], MCHC 32.1(L) 32.3 - 35.7 g/dL [facility] ([place]) Comment:Testing performed by : [facility], [place], [place], RDW CV 16.9(H) 11.1 - 14.9 % [facility] ([place]) Comment:Testing performed by : [facility], [place], RDW SD 52.5(H) 35.7 - 48.1 fL [facility] ([place]) Comment:Testing performed by : [facility], [place], [address] NRBC abs 0.00 0.00 - 0.01 K/cumm [facility] ([place]) Comment:Testing performed by : [facility], [place], [address] Morphologic Screen Results confirmed by manual morphology review. [facility] ([place]) Comment:Testing performed by : [facility], [place], [address] Blood 10/21/2024 8:25 AM CDT 10/21/2024 9:43 AM CDT us Chalino Chapa MD LAB BLOOD ORDERABLES Aylin l Result [facility] ([place]) 1 [facility] Department [place] [address] * (ABNORMAL) Comprehensive metabolic panel (10/21/2024 8:25 AM CDT) Sodium 139 135 - 145 mmol/L [facility] ([place]) Potassium, pl 4.2 3.3 - 4.9 mmol/L [facility] ([place]) Chloride 99 97 - 110 mmol/L [facility] ([place]) CO2 31 22 - 32 [...] Aylin l Result SABRA ROGERS ([place]) 1 [facility] Department [place] [address] * Transfuse RBC (10/17/2024 2:54 PM CDT) Blood us Chalino Chapa MD BLOOD TRANSFUSION ORDERAB LES Final Result * Prepare RBC (10/17/2024 12:24 PM CDT) Unit Number [id number] Product code [id number] SABRA ROGERS ([place]) Blood Expiration Date [facility] ([place]) Product Blood Type (for scanning) 5100 [facility] ([place]) Product Blood Type OPOS SABRA ROGERS ([place]) Dispense Status DISPENSED SABRA ROGERS ([place]) us Chalino Chapa MD BLOOD BANK PRODUCT ORDERA BLES Final Result SABRA ROGERS ([place]) 1 [facility] Department [place] [address] * Prepare RBC: 1 Units (10/17/2024 12:19 PM CDT) Pathologist [facility] Units requested 1 Comment:Testing performed by : [place], [address] Units requested Ready AMY WOLF ROGERS ([place]) Comment:Testing performed by : [place], [address] Blood 10/17/2024 12:1 9 PM CDT 10/17/2024 12:19 PM CDT Narrative SABRA ROGERS ([place]) - 10/17/2024 12:19 PM CDT Are special requirements needed? (All products are leukoreduced and CMV- safe)->No us Chalino Chapa MD BLOOD BANK PRODUCT ORDERA BLES Final Result SABRA ROGERS ([place]) 1 [facility] [place] [address] * eGFR (10/17/2024 11:10 AM CDT) eGFR [...] was last reviewed 2021. Testing performed by: [place], [address] Blood 10/17/2024 11:1 0 AM CDT 10/17/2024 11:34 AM CDT us Chalino Chapa MD LAB BLOOD ORDERABLES Aylin l Result SABRA ROGERS ([place]) 1 [facility] Department [place] [address] * (ABNORMAL) Differential, auto (10/17/2024 11:10 AM CDT) Neutrophil abs 0.64(L) 1.50 - 6.50 K/cumm Comment:Testing performed by : [place], [address] Imm gran abs 0.01 0.00 - 0.10 K/cumm [facility] ([place]) Comment:Testing performed by : [place], [address] Lymphocyte abs 0.84 0.80 - 3.30 K/cumm [facility] ([place]) Comment:Testing performed by : [facility], [place], [address] Monocyte abs 0.20 0.20 - 0.80 K/cumm [facility] ([place]) Comment:Testing performed by : [facility], [place], [address] Eosinophil abs 0.00 0.00 - 0.50 K/cumm [facility] ([place]) Comment:Testing performed by : [facility], [place], [address] Basophil abs 0.00 0.00 - 0.10 K/cumm [facility] ([place]) Comment:Testing performed by : [facility], [place], [address] Neutrophil pct 37.9 % [facility] ([place]) Comment: Interpretive Data Percent cell count reference ranges are not reported, since discordance with absolute values may lead to misinterpretation of CBC data. Current Interpretive Data was last revised on 2017. Testing performed by: [facility], [place], [address] Imm gran pct 0.6 % [facility] ([place]) Comment: Interpretive Data Percent cell count reference ranges are not reported, since discordance with absolute values may lead to misinterpretation of CBC data. Current Interpretive Data was last revised on 2017. Testing performed by: [place], [address] Lymphocyte pct 49.7 % [facility] ([place]) Comment: Interpretive Data Percent cell count reference ranges are not reported, since discordance with absolute values may lead to misinterpretation of CBC data. Current Interpretive Data was last revised on 2017. Testing performed by: [place], [address] Monocyte pct 11.8 % [facility] ([place]) Comment: Interpretive Data Percent cell count reference ranges are not reported, since discordance with absolute values may lead to misinterpretation of CBC data. Current Interpretive Data was last revised on 2017. Testing performed by: [place], [address] Eosinophil pct 0.0 % [facility] ([place]) Comment: Interpretive Data Percent cell count reference ranges are not reported, since discordance with absolute values may lead to misinterpretation of CBC data. Current Interpretive Data was last revised on 2017. Testing performed by: [place], [address] Basophil pct 0.0 % [facility] ([place]) Comment: Interpretive Data Percent cell count reference ranges are not reported, since discordance with absolute values may lead to misinterpretation of CBC data. Current Interpretive Data was last revised on 2017. Testing performed by: [place], [address] Blood 10/17/2024 11:1 0 AM CDT 10/17/2024 12:21 PM CDT us Chalino Chapa MD LAB BLOOD ORDERABLES Aylin tano Result [facility] ([place]) [address] [place] [address] Department [place] [address] * (ABNORMAL) CBC with auto differential (10/17/2024 11:10 AM CDT) WBC 1.69(L) 3.80 - 9.90 K/cumm Comment:Testing performed by : [place], [address] Hgb 7.3(L) 11.9 - 15.5 g/dL [facility] ([place]) Comment:Testing performed by : [place], [address] Hct 22.8(L) 35.6 - 45.5 % [facility] ([place]) Comment:Testing performed by : [facility], [place], [address] Plt 144(L) 150 - 400 K/cumm [facility] ([place]) Comment:Testing performed by : [place], [address] MPV 12.0 9.1 - 12.3 fL [facility] ([place]) Comment:Testing performed by : [place], [address] RBC 2.29(L) 3.90 - 5.20 M/cumm [facility] ([place]) Comment:Testing performed by : [place], [address] MCV 99.6(H) 81.3 - 96.4 fL [facility] ([place]) Comment:Testing performed by : [place], [address] MCH 31.9 27.1 - 33.3 pg [facility] ([place]) Comment:Testing performed by : [facility], [facility], [place], [address] MCHC 32.0(L) 32.3 - 35.7 g/dL SABRA ROGERS ([place]) Comment:Testing performed by : [facility], [facility], [place], [address] RDW CV 16.2(H) 11.1 - 14.9 % SABRA ROGERS ([place]) Comment:Testing performed by : [facility], [place], [address] RDW SD 53.1(H) 35.7 - 48.1 fL SABRA ROGERS ([place]) Comment:Testing performed by : [facility], [place], [address] NRBC abs 0.00 0.00 - 0.01 K/cumm SABRA ROGERS ([place]) Comment:Testing performed by : [facility], [place], [address] Morphologic Screen Results confirmed by manual morphology review. SABRA ROGERS ([place]) Comment:Testing performed by : [facility], [place], [address] Blood 10/17/2024 11:1 0 AM CDT 10/17/2024 12:21 PM CDT Chalino Chapa MD LAB BLOOD ORDERABLES Edit ed Result - Final SABRA ROGERS ([place]) 1 [facility] Department [place] [address] * ABO/Rh (10/17/2024 11:10 AM CDT) ABO/Rh O Positive Comment:Testing performed by : [facility], [facility], [place], [address] Blood 10/17/2024 11:1 0 AM CDT 10/17/2024 11:43 AM CDT Narrative SABRA ROGERS ([place]) - 10/17/2024 12:17 PM CDT Has the patient had Daratumumab or Isatuximab in the past 6 months?->Unknown Witness: Ynes Jensen IFS us Chalino Chapa MD LAB BLOOD BANK TEST ORDER LAITH Final Result Performing Organization Address City/[facility]/ZIP Co de Phone Number SABRA [facility] ([place]) [address] [place] [address] * Crossmatch (10/17/2024 11:10 AM CDT) Crossmatch Compatible SABRA Silva ([place]) Unit number for crossmatch [id number] [facility] ([place]) Blood 10/17/2024 11:1 0 AM CDT 10/17/2024 11:43 AM CDT Chalino Chapa MD LAB BLOOD BANK TEST ORDER LAITH Final Result Performing Organization Address [facility] Co de Phone Number SABRA [facility] ([place]) [address] [place] [address] * Antibody screen (10/17/2024 11:10 AM CDT) Rivera, indirect, Gel Interpretation Negative ABSC Comment:Testing performed by : [facility], [facility], [place], [address] Blood 10/17/2024 11:1 0 AM CDT 10/17/2024 11:43 AM CDT Narrative [facility] ([place]) - 10/17/2024 12:17 PM CDT Has the patient had Daratumumab or Isatuximab in the past 6 months?->Unknown us Chalino Chapa MD LAB BLOOD BANK TEST ORDER LAITH Final Result Performing Organization Address City/[facility]/ZIP Co de Phone Number SABRA [facility] ([place]) [address] [place] [address] * (ABNORMAL) Comprehensive metabolic panel (10/17/2024 11:10 AM CDT) Sodium 139 135 - 145 mmol/L [facility] ([place]) Potassium, pl 4.0 3.3 - 4.9 mmol/L [...] Aylin freedman Result [facility] ([place]) [address] [facility] Department [place] [address] * (ABNORMAL) Differential, auto (10/14/2024 9:17 AM CDT) Neutrophil abs 0.51(L) 1.50 - 6.50 K/cumm Comment:Testing performed by : [facility], [facility], [place], [address] Imm gran abs 0.02 0.00 - 0.10 K/cumm [facility] ([place]) Comment:Testing performed by : [facility], [facility], [place], [address] Lymphocyte abs 0.81 0.80 - 3.30 K/cumm [facility] ([place]) Comment:Testing performed by : [facility], [facility], [place], [address] Monocyte abs 0.13(L) 0.20 - 0.80 K/cumm [facility] ([place]) Comment:Testing performed by : [facility], [facility], [place], [address] Eosinophil abs 0.00 0.00 - 0.50 K/cumm [facility] ([place]) Comment:Testing performed by : [facility], [place], [address] Basophil abs 0.01 0.00 - 0.10 K/cumm [facility] ([place]) Comment:Testing performed by : [facility], [facility], [place], [address] Neutrophil pct 34.4 % [facility] ([place]) Comment: Interpretive Data Percent cell count reference ranges are not reported, since discordance with absolute values may lead to misinterpretation of CBC data. Current Interpretive Data was last revised on 2017. Testing performed by: [place], [address] Imm gran pct 1.4 % [facility] ([place]) Comment: Interpretive Data Percent cell count reference ranges are not reported, since discordance with absolute values may lead to misinterpretation of CBC data. Current Interpretive Data was last revised on 2017. Testing performed by: [place], [address] Lymphocyte pct 54.7 % [facility] ([place]) Comment: Interpretive Data Percent cell count reference ranges are not reported, since discordance with absolute values may lead to misinterpretation of CBC data. Current Interpretive Data was last revised on 2017. Testing performed by: [facility], [place], [address] Monocyte pct 8.8 % [facility] ([place]) Comment: Interpretive Data Percent cell count reference ranges are not reported, since discordance with absolute values may lead to misinterpretation of CBC data. Current Interpretive Data was last revised on 2017. Testing performed by: [facility], [facility], [place], [address] Eosinophil pct 0.0 % [facility] ([place]) Comment: Interpretive Data Percent cell count reference ranges are not reported, since discordance with absolute values may lead to misinterpretation of CBC data. Current Interpretive Data was last revised on 2017. Testing performed by: [facility], [facility], [place], [address] Basophil pct 0.7 % [facility] ([place]) Comment: Interpretive Data Percent cell count reference ranges are not reported, since discordance with absolute values may lead to misinterpretation of CBC data. Current Interpretive Data was last revised on 2017. Testing performed by: [facility], [place], [address] Blood 10/14/2024 9:17 AM CDT 10/14/2024 9:17 AM CDT us Chalino Chapa MD LAB BLOOD ORDERABLES Aylin freedman Result SABRA ROGERS ([place]) 1 [facility] Department [place] [address] * (ABNORMAL) CBC with auto differential (10/14/2024 9:17 AM CDT) WBC 1.48(L) 3.80 - 9.90 K/cumm Comment:Testing performed by : [facility], [place], [address] Hgb 7.8(L) 11.9 - 15.5 g/dL [facility] ([place]) Comment:Testing performed by : [facility], [place], [address] Hct 24.6(L) 35.6 - 45.5 % SABRA ROGERS ([place]) Comment:Testing performed by : [facility], [place], [address] Plt 142(L) 150 - 400 K/cumm [facility] ([place]) Comment:Testing performed by : [place], MPV 12.2 9.1 - 12.3 fL [facility] ([place]) Comment:Testing performed by : [facility], [place], RBC 2.54(L) 3.90 - 5.20 M/cumm [facility] ([place]) Comment:Testing performed by : [facility], [place], MCV 96.9(H) 81.3 - 96.4 fL [facility] ([place]) Comment:Testing performed by : [place], MCH 30.7 27.1 - 33.3 pg [facility] ([place]) Comment:Testing performed by : [place], MCHC 31.7(L) 32.3 - 35.7 g/dL [facility] ([place]) Comment:Testing performed by : [place], RDW CV 15.6(H) 11.1 - 14.9 % [facility] ([place]) Comment:Testing performed by : [place], [address] RDW SD 53.3(H) 35.7 - 48.1 fL [facility] ([place]) Comment:Testing performed by : [facility], [place], [address] NRBC abs 0.00 0.00 - 0.01 K/cumm [facility] ([place]) Comment:Testing performed by : [facility], [place], [address] Blood 10/14/2024 9:17 AM CDT 10/14/2024 9:17 AM CDT us Chalino Chapa MD LAB BLOOD ORDERABLES Aylin freedman Result [facility] ([place]) 1 [facility] Department [place] [address] * eGFR (10/14/2024 8:00 AM CDT) eGFR [...] was last reviewed 2021. Testing performed by: [place], [address] Blood 10/14/2024 8:00 AM CDT 10/14/2024 1:44 PM CDT Chalino Chapa MD LAB BLOOD ORDERABLES Aylin tano Result SABRA ROGERS ([place]) 1 [facility] Department [place] [address] * (ABNORMAL) Comprehensive metabolic panel (10/14/2024 8:00 AM CDT) Sodium 138 135 - 145 mmol/L Comment:Testing performed by : [place], [address] Potassium, pl 4.4 3.3 - 4.9 mmol/L SABRA ROGERS ([place]) Comment:Testing performed by : [facility], [place], [address] Chloride 99 97 - 110 mmol/L SARBA ROGERS ([place]) Comment:Testing performed by : [place], [address] CO2 27 22 - 32 mmol/L [facility] ([place]) Comment:Testing performed by : [facility], [facility], [place], [address] Anion gap 12 2 - 15 mmol/L [facility] ([place]) Comment:Testing performed by : [facility], [place], [address] BUN 10 6 - 25 mg/dL [facility] ([place]) Comment:Testing performed by : [facility], [place], [address] Creatinine 0.58(L) 0.60 - 1.10 mg/dL [facility] ([place]) Comment:Testing performed by : [facility], [place], [address] Glucose 135 70 - 199 mg/dL [facility] ([place]) Comment: Interpretive Data Fasting glucose >/= 126 [...] was last revised 2022. Testing performed by: [facility], [place], [address] Calcium 9.2 8.5 - 10.3 mg/dL [facility] ([place]) Comment:Testing performed by : [facility], [place], [address] Bilirubin, total 0.6 0.1 - 1.2 mg/dL [facility] ([place]) Comment:Testing performed by : [facility], [place], [address] Protein, pl 7.3 6.5 - 8.5 g/dL [facility] ([place]) Comment:Testing performed by : [facility], [place], [address] Albumin 3.9 3.5 - 5.0 g/dL [facility] ([place]) Comment:Testing performed by : [facility], [place], [address] Alk phos 47 40 - 130 Units/L [facility] ([place]) Comment:Testing performed by : [facility], [facility], [place], [address] ALT 46(H) 7 - 45 Units/L [facility] ([place]) Comment:Testing performed by : [facility], [facility], [place], [address] AST 29 10 - 45 Units/L [facility] ([place]) Comment:Testing performed by : [facility], [facility], [place], [address] Blood 10/14/2024 8:00 AM CDT 10/14/2024 1:44 PM CDT us Chalino Chapa MD LAB BLOOD ORDERABLES Aylin freedman Result [facility] ([place]) 1 [facility] Department [place] [address] * eGFR (10/11/2024 11:50 AM CDT) eGFR [...] was last reviewed 2021. Testing performed by: [facility], [facility], [place], [address] Blood 10/11/2024 11:5 0 AM CDT 10/11/2024 2:14 PM CDT us Milla Armenta TIMBER SURVEYOR LAB BLOOD ORDERABLES Final Result SABRA ROGERS ([place]) 1 [facility] Department [place] [address] * (ABNORMAL) Differential, auto (10/11/2024 11:50 AM CDT) Neutrophil abs 0.43(C) 1.50 - 6.50 K/cumm Comment: This result has been called to Evie Brink RN by [id number] on 10/11/2024 13:11:00, and has been read back. Testing performed by: [place], [address] Imm gran abs 0.01 0.00 - 0.10 K/cumm [facility] ([place]) Comment:Testing performed by : [place], [address] Lymphocyte abs 0.73(L) 0.80 - 3.30 K/cumm [facility] ([place]) Comment:Testing performed by : [place], [address] Monocyte abs 0.07(L) 0.20 - 0.80 K/cumm [facility] ([place]) Comment:Testing performed by : [place], [address] Eosinophil abs 0.00 0.00 - 0.50 K/cumm [facility] ([place]) Comment:Testing performed by : [place], [address] Basophil abs 0.00 0.00 - 0.10 K/cumm [facility] ([place]) Comment:Testing performed by : [place], [address] Neutrophil pct 34.7 % [facility] ([place]) Comment: Interpretive Data Percent cell count reference ranges are not reported, since discordance with absolute values may lead to misinterpretation of CBC data. Current Interpretive Data was last revised on 2017. Testing performed by: [place], [address] Imm gran pct 0.8 % [facility] ([place]) Comment: Interpretive Data Percent cell count reference ranges are not reported, since discordance with absolute values may lead to misinterpretation of CBC data. Current Interpretive Data was last revised on 2017. Testing performed by: [place], [address] Lymphocyte pct 58.9 % [facility] ([place]) Comment: Interpretive Data Percent cell count reference ranges are not reported, since discordance with absolute values may lead to misinterpretation of CBC data. Current Interpretive Data was last revised on 2017. Testing performed by: [place], [address] Monocyte pct 5.6 % [facility] ([place]) Comment: Interpretive Data Percent cell count reference ranges are not reported, since discordance with absolute values may lead to misinterpretation of CBC data. Current Interpretive Data was last revised on 2017. Testing performed by: [place], [address] Eosinophil pct 0.0 % [facility] ([place]) Comment: Interpretive Data Percent cell count reference ranges are not reported, since discordance with absolute values may lead to misinterpretation of CBC data. Current Interpretive Data was last revised on 2017. Testing performed by: [place], [address] Basophil pct 0.0 % [facility] ([place]) Comment: Interpretive Data Percent cell count reference ranges are not reported, since discordance with absolute values may lead to misinterpretation of CBC data. Current Interpretive Data was last revised on 2017. Testing performed by: [place], [address] Blood 10/11/2024 11:5 0 AM CDT 10/11/2024 12:18 PM CDT us Chalino Chapa MD LAB BLOOD ORDERABLES Aylin freedman Result SABRA SUE ([place]) 1 [facility] Department [place] [address] * (ABNORMAL) CBC with auto differential (10/11/2024 11:50 AM CDT) WBC 1.24(L) 3.80 - 9.90 K/cumm Comment:Testing performed by : [place], Hgb 7.7(L) 11.9 - 15.5 g/dL [facility] ([place]) Comment:Testing performed by : [place], Hct 23.9(L) 35.6 - 45.5 % [facility] ([place]) Comment:Testing performed by : [facility], [place], Plt 157 150 - 400 K/cumm [facility] ([place]) Comment:Testing performed by : [place], MPV 11.6 9.1 - 12.3 fL [facility] ([place]) Comment:Testing performed by : [place], RBC 2.43(L) 3.90 - 5.20 M/cumm [facility] ([place]) Comment:Testing performed by : [place], MCV 98.4(H) 81.3 - 96.4 fL [facility] ([place]) Comment:Testing performed by : [place], MCH 31.7 27.1 - 33.3 pg [facility] ([place]) Comment:Testing performed by : [place], MCHC 32.2(L) 32.3 - 35.7 g/dL [facility] ([place]) Comment:Testing performed by : [place], RDW CV 15.1(H) 11.1 - 14.9 % [facility] ([place]) Comment:Testing performed by : [place], RDW SD 53.4(H) 35.7 - 48.1 fL [facility] ([place]) Comment:Testing performed by : [place], [address] NRBC abs 0.00 0.00 - 0.01 K/cumm [facility] ([place]) Comment:Testing performed by : [facility], [place], [address] Morphologic Screen Results confirmed by manual morphology review. [facility] ([place]) Comment:Testing performed by : [facility], [place], Blood 10/11/2024 11:5 0 AM CDT 10/11/2024 12:18 PM CDT us Chalino Chapa MD LAB BLOOD ORDERABLES Aylin freedman Result [facility] ([place] 1 [facility] Department [place] [address] * (ABNORMAL) Comprehensive metabolic panel (10/11/2024 11:50 AM CDT) Sodium 140 135 - 145 mmol/L Comment:Testing performed by : [facility], [place], [place], Potassium, pl 3.9 3.3 - 4.9 mmol/L [facility] ([place]) Comment:Testing performed by : [facility], [place], [address] Chloride 100 97 - 110 mmol/L [facility] ([place]) Comment:Testing performed by : [facility], [place], [address] CO2 27 22 - 32 mmol/L [facility] ([place]) Comment:Testing performed by : [facility], [place], [address] Anion gap 13 2 - 15 mmol/L [facility] ([place]) Comment:Testing performed by : [facility], [place], [address] BUN 10 6 - 25 mg/dL [facility] ([place]) Comment:Testing performed by : [facility], [place], [address] Creatinine 0.54(L) 0.60 - 1.10 mg/dL [facility] ([place]) Comment:Testing performed by : [facility], [place], Glucose 120 70 - 199 mg/dL [facility] ([place]) Comment: Interpretive Data Fasting glucose >/= 126 [...] was last revised 2022. Testing performed by: [place], [address] Calcium 8.8 8.5 - 10.3 mg/dL [facility] ([place]) Comment:Testing performed by : [place], [address] Bilirubin, total 0.5 0.1 - 1.2 mg/dL [facility] ([place]) Comment:Testing performed by : [place], [address] Protein, pl 6.9 6.5 - 8.5 g/dL [facility] ([place]) Comment:Testing performed by : [facility], [place], [address] Albumin 3.7 3.5 - 5.0 g/dL [facility] ([place]) Comment:Testing performed by : [facility], [place], [address] Alk phos 38(L) 40 - 130 Units/L [facility] ([place]) Comment:Testing performed by : [facility], [place], [address] ALT 40 7 - 45 Units/L [facility] ([place]) Comment:Testing performed by : [facility], [place], [address] AST 23 10 - 45 Units/L [facility] ([place]) Comment:Testing performed by : [facility], [place], [address] Blood 10/11/2024 11:5 0 AM CDT 10/11/2024 2:14 PM CDT us Milla Armenta NP LAB BLOOD ORDERABLES Final Result Performing Organization Address City/[facility] Co de Phone Number SABRA ROGERS ([place]) 1 [facility] Department [place] [address] * eGFR (10/07/2024 5:29 AM CDT) eGFR [...] was last reviewed 2021. Testing performed by: [address] [address] Blood 10/07/2024 5:29 AM CDT 10/07/2024 5:46 AM CDT us Laurel Desir MD LAB BLOOD ORDERABLES Final Res ult SABRA [address] [facility] Department [place] [address] * (ABNORMAL) Differential, auto (10/07/2024 5:29 AM CDT) Neutrophil abs 0.13(C) 1.50 - 6.50 K/cumm Comment: Critical value called within last 72 hrs Testing performed by: [address] [address] Imm gran abs 0.00 0.00 - 0.10 K/cumm [facility] Comment:Testing performed by : [address] [address] Lymphocyte abs 0.49(L) 0.80 - 3.30 K/cumm [facility] Comment:Testing performed by : [address], [place]., [address] Monocyte abs 0.02(L) 0.20 - 0.80 K/cumm [facility] Comment:Testing performed by : [address], [place]., [address] Eosinophil abs 0.00 0.00 - 0.50 K/cumm [facility] Comment:Testing performed by : [address] [address] Basophil abs 0.00 0.00 - 0.10 K/cumm [facility] Comment:Testing performed by : [address] [address] Neutrophil pct 20.3 % [facility] Comment: Differential consistent with previous result. Differential consistent with previous result. Interpretive Data Percent cell count reference ranges are not reported, since discordance with absolute values may lead to misinterpretation of CBC data. Current Interpretive Data was last revised on 2017. Testing performed by: [address] [address] Imm gran pct 0.0 % [facility] Comment: Interpretive Data Percent cell count reference ranges are not reported, since discordance with absolute values may lead to misinterpretation of CBC data. Current Interpretive Data was last revised on 2017. Testing performed by: [address] [address] Lymphocyte pct 76.6 % [facility] Comment: Interpretive Data Percent cell count reference ranges are not reported, since discordance with absolute values may lead to misinterpretation of CBC data. Current Interpretive Data was last revised on 2017. Testing performed by: [address] [address] Monocyte pct 3.1 % [facility] Comment: Interpretive Data Percent cell count reference ranges are not reported, since discordance with absolute values may lead to misinterpretation of CBC data. Current Interpretive Data was last revised on 2017. Testing performed by: [address] [address] Eosinophil pct 0.0 % SABRA Comment: Interpretive Data Percent cell count reference ranges are not reported, since discordance with absolute values may lead to misinterpretation of CBC data. Current Interpretive Data was last revised on 2017. Testing performed by: [address] [address] Basophil pct 0.0 % SABRA Comment: Interpretive Data Percent cell count reference ranges are not reported, since discordance with absolute values may lead to misinterpretation of CBC data. Current Interpretive Data was last revised on 2017. Testing performed by: [address] [address] Blood 10/07/2024 5:29 AM CDT 10/07/2024 5:46 AM CDT us Laurel Desir MD LAB BLOOD ORDERABLES Final Res ult [place] [id number] [facility] Department [place] [address] * (ABNORMAL) CBC with auto differential (10/07/2024 5:29 AM CDT) Pathologist [facility] WBC 0.64(C) 3.80 - 9.90 K/cumm Comment: Critical value called within last 72 hrs Testing performed by: [address] [address] Hgb 7.2(L) 11.9 - 15.5 g/dL SABRA Comment:Testing performed by : [address] [address] Hct 21.9(L) 35.6 - 45.5 % SABRA Comment:Testing performed by : [address] [address] Plt 142(L) 150 - 400 K/cumm SABRA Comment:Testing performed by : [address] [address] MPV 10.9 9.1 - 12.3 fL [facility]ABRA [facility] Comment:Testing performed by : [address] [address] RBC 2.29(L) 3.90 - 5.20 M/cumm [facility]RA [facility] Comment:Testing performed by : [address] [address] MCV 95.6 81.3 - 96.4 fL SABRA Comment:Testing performed by : [address] [address] MCH 31.4 27.1 - 33.3 pg SABRA [facility]KS Comment:Testing performed by : [address] [address] MCHC 32.9 32.3 - 35.7 g/dL SABRA Comment:Testing performed by : [address] [address] RDW CV 14.9 11.1 - 14.9 % [facility]ABRA Comment:Testing performed by : [address] [address] RDW SD 51.4(H) 35.7 - 48.1 fL SABRA Comment:Testing performed by : [address] [address] NRBC abs 0.00 0.00 - 0.01 K/cumm SABRA Comment:Testing performed by : [address] [address] Morphologic Screen Results confirmed by manual morphology review. SABRA Comment:Testing performed by : [address] [address] Blood 10/07/2024 5:29 AM CDT 10/07/2024 5:46 AM CDT us Laurel Desir MD LAB BLOOD ORDERABLES Final Res ult [facility]ABRA [place] [address] [facility] Department [place] [address] * (ABNORMAL) Basic metabolic panel (10/07/2024 5:29 AM CDT) [facility] Sodium 142 135 - 145 mmol/L Comment:Testing performed by : [address] [address] Potassium, pl 3.7 3.3 - 4.9 mmol/L SABRA Comment:Testing performed by : [address], [place]., [address] Chloride 104 97 - 110 mmol/L [facility]RA Comment:Testing performed by : [address], [place]., [address] CO2 32 22 - 32 mmol/L [facility] Comment:Testing performed by : [address], [place]., [address] Anion gap 6 2 - 15 mmol/L [facility] Comment:Testing performed by : [address], [place]., [address] BUN 6 6 - 25 mg/dL [facility] Comment:Testing performed by : [address], [place]., [address] Creatinine 0.39(L) 0.60 - 1.10 mg/dL [facility] Comment:Testing performed by : [address], [place]., [address] Glucose 137 70 - 199 mg/dL [facility] Comment: Interpretive Data Fasting glucose >/= [...] was last revised 2022. Testing performed by: [address] [address] Calcium 7.9(L) 8.5 - 10.3 mg/dL [facility] Comment:Testing performed by : [address], [place]., [address] Blood 10/07/2024 5:29 AM CDT 10/07/2024 5:46 AM CDT us Laurel Desir MD LAB BLOOD ORDERABLES Final Res ult Performing Organization Address [facility] Co de Phone Number SABRA [address] [place] [address] * eGFR (10/06/2024 5:10 AM CDT) eGFR [...] was last reviewed 2021. Testing performed by: [facility], [address] [place] [address]., [address] Blood 10/06/2024 5:10 AM CDT 10/06/2024 5:26 AM CDT us Laurel Desir MD LAB BLOOD ORDERABLES Final Res ult Performing Organization Address City/[facility]/ZIP Co de Phone Number SABRA [facility] [place] [address] * (ABNORMAL) Differential, auto (10/06/2024 5:10 AM CDT) Neutrophil abs 0.09(C) 1.50 - 6.50 K/cumm Comment: Critical value called within last 72 hrs Testing performed by: [address] [address] Imm gran abs 0.01 0.00 - 0.10 K/cumm [facility] Comment:Testing performed by : [facility], [address] [place] [address], [place]., [address] Lymphocyte abs 0.57(L) 0.80 - 3.30 K/cumm [facility] Comment:Testing performed by : [address], [place]., [address] Monocyte abs 0.01(L) 0.20 - 0.80 K/cumm [facility] Comment:Testing performed by : [address], [place]., [address] Eosinophil abs 0.01 0.00 - 0.50 K/cumm [facility] Comment:Testing performed by : [address], [place]., [address] Basophil abs 0.00 0.00 - 0.10 K/cumm [facility] Comment:Testing performed by : [address] [address] Neutrophil pct 13.2 % [facility] Comment: Differential consistent with previous result. Differential consistent with previous result. Interpretive Data Percent cell count reference ranges are not reported, since discordance with absolute values may lead to misinterpretation of CBC data. Current Interpretive Data was last revised on 2017. Testing performed by: [address] [address] Imm gran pct 1.4 % [facility] Comment: Interpretive Data Percent cell count reference ranges are not reported, since discordance with absolute values may lead to misinterpretation of CBC data. Current Interpretive Data was last revised on 2017. Testing performed by: [address] [address] Lymphocyte pct 82.6 % [facility] Comment: Interpretive Data Percent cell count reference ranges are not reported, since discordance with absolute values may lead to misinterpretation of CBC data. Current Interpretive Data was last revised on 2017. Testing performed by: [address] [address] Monocyte pct 1.4 % [facility] Comment: Interpretive Data Percent cell count reference ranges are not reported, since discordance with absolute values may lead to misinterpretation of CBC data. Current Interpretive Data was last revised on 2017. Testing performed by: [address] [address] Eosinophil pct 1.4 % [facility] Comment: Interpretive Data Percent cell count reference ranges are not reported, since discordance with absolute values may lead to misinterpretation of CBC data. Current Interpretive Data was last revised on 2017. Testing performed by: [address] [address] Basophil pct 0.0 % S[facility]RA Comment: Interpretive Data Percent cell count reference ranges are not reported, since discordance with absolute values may lead to misinterpretation of CBC data. Current Interpretive Data was last revised on 2017. Testing performed by: [address] [address] Blood 10/06/2024 5:10 AM CDT 10/06/2024 5:26 AM CDT us Laurel Desir MD LAB BLOOD ORDERABLES Final Res ult SABRA 0613 [facility] Department [place] [address] * (ABNORMAL) CBC with auto differential (10/06/2024 5:10 AM CDT) WBC 0.69(C) 3.80 - 9.90 K/cumm Comment: Critical value called within last 72 hrs Testing performed by: [address] [address] Hgb 7.1(L) 11.9 - 15.5 g/dL SABRA Comment:Testing performed by : [address] [address] Hct 21.9(L) 35.6 - 45.5 % SABRA Comment:Testing performed by : [address] [address] Plt 149(L) 150 - 400 K/cumm SABRA PARKS Comment:Testing performed by : [address] [address] MPV 11.8 9.1 - 12.3 fL SABRA PARKS Comment:Testing performed by : [address], [address] RBC 2.26(L) 3.90 - 5.20 M/cumm SABRA PARKS Comment:Testing performed by : [address], [address] MCV 96.9(H) 81.3 - 96.4 fL SABRA PARKS Comment:Testing performed by : [address], [address] MCH 31.4 27.1 - 33.3 pg SABRA PARKS Comment:Testing performed by : [address] [address] MCHC 32.4 32.3 - 35.7 g/dL SABRA PARKS Comment:Testing performed by : [address], [address] RDW CV 15.0(H) 11.1 - 14.9 % SABRA PARKS Comment:Testing performed by : [address], [address] RDW SD 53.1(H) 35.7 - 48.1 fL SABRA PARKS Comment:Testing performed by : [address], [address] NRBC abs 0.00 0.00 - 0.01 K/cumm SABRA PARKS Comment:Testing performed by : [address], [address] Morphologic Screen Results confirmed by manual morphology review. SABRA PARKS Comment:Testing performed by : [address], [address] Blood 10/06/2024 5:10 AM CDT 10/06/2024 5:26 AM CDT us Laurel Desri MD LAB BLOOD ORDERABLES Final Res ult SABRA PARKS [address] [place] [address] * (ABNORMAL) Phosphorus (10/06/2024 5:10 AM CDT) [facility] Phosphorus, pl 2.1(L) 2.3 - 4.5 mg/dL Comment:Testing performed by : [address] [address] Blood 10/06/2024 5:10 AM CDT 10/06/2024 5:26 AM CDT Juan A Rios MD LAB BLOOD ORDERABL ES Final Result Performing Organization Address City/[facility]/ZIP Co de Phone Number [address] [address] * Magnesium (10/06/2024 5:10 AM CDT) [facility] Magnesium 2.0 1.4 - 2.5 mg/dL Comment:Testing performed by : [address] [address] Blood 10/06/2024 5:10 AM CDT 10/06/2024 5:26 AM CDT Juan A Rios MD LAB BLOOD ORDERABL ES Final Result Performing Organization Address City/[facility]/ZIP Co de Phone Number [address] [address] * (ABNORMAL) Basic metabolic panel (10/06/2024 5:10 AM CDT) [facility] Sodium 136 135 - 145 mmol/L Comment:Testing performed by : [address] [address] Potassium, pl 3.6 3.3 - 4.9 mmol/L SABRA PARKS Comment:Testing performed by : [address] [address] Chloride 101 97 - 110 mmol/L SABRA PARKS Comment:Testing performed by : [address] [place]., [address] CO2 28 22 - 32 mmol/L SABRA Comment:Testing performed by : [address] [address] Anion gap 7 2 - 15 mmol/L SABRA Comment:Testing performed by : [address] [address] BUN 8 6 - 25 mg/dL SABRA Comment:Testing performed by : [address] [address] Creatinine 0.42(L) 0.60 - 1.10 mg/dL SABRA Comment:Testing performed by : [address] [address] Glucose 133 70 - 199 mg/dL SABRA [...] was last revised 2022. Testing performed by: [address] [address] Calcium 7.6(L) 8.5 - 10.3 mg/dL SABRA Comment:Testing performed by : [address] [address] Blood 10/06/2024 5:10 AM CDT 10/06/2024 5:26 AM CDT us Laurel Desir MD LAB BLOOD ORDERABLES Final Res ult SABRA PARKS 4643 [facility] Department [place] [address] * XR Kub (10/05/2024 7:42 PM CDT) [...] signed by Lee SHORE: SILVIANO Report ID: [id number] Reading Location: [id number] Procedure Note Lee Wilkins MD - 10/06/2024 [...] signed by Lee SHORE: SILVIANO Report ID: [id number] Reading Location: [id number] Juan A Rios MD IMG XR PROCEDURES [...] Shadi Nesbitt M.D. MJ: ALINE Report ID: [id number] Reading Location: [id number] Procedure Note Shadi Nesbitt MD - 10/05/2024 [...] Shadi Nesbitt M.D. MJ: ALINE Report ID: [id number] Reading Location: [place] [address] us Juan A Rios MD IMG XR [...] was last reviewed 2021. Testing performed by: [facility], [address] [place] [address]., [address] Blood 10/05/2024 6:06 AM CDT 10/05/2024 6:40 AM CDT us Laurel Desir MD LAB BLOOD ORDERABLES Final Res ult [facility] 1198 [facility] Department [place] [address] * (ABNORMAL) Differential, auto (10/05/2024 6:06 AM CDT) Neutrophil abs 0.06(C) 1.50 - 6.50 K/cumm Comment: This result has been called to [id number] by [email or web address] on 10/05/2024 07:54:45, and has been read back. Testing performed by: [address] [address] Imm gran abs 0.02 0.00 - 0.10 K/cumm [facility] Comment:Testing performed by : [address], [place]., [address] Lymphocyte abs 0.44(L) 0.80 - 3.30 K/cumm [facility] Comment:Testing performed by : [address], [place]., [address] Monocyte abs 0.01(L) 0.20 - 0.80 K/cumm [facility] Comment:Testing performed by : [address] [address] Eosinophil abs 0.00 0.00 - 0.50 K/cumm [facility] Comment:Testing performed by : [address] [address] Basophil abs 0.00 0.00 - 0.10 K/cumm [facility] Comment:Testing performed by : [address] [address] Neutrophil pct 11.3 % [facility] Comment: Differential consistent with previous result. Differential consistent with previous result. Differential consistent with previous result. Interpretive Data Percent cell count reference ranges are not reported, since discordance with absolute values may lead to misinterpretation of CBC data. Current Interpretive Data was last revised on 2017. Testing performed by: [address] [address] Imm gran pct 3.8 % [facility] Comment: Interpretive Data Percent cell count reference ranges are not reported, since discordance with absolute values may lead to misinterpretation of CBC data. Current Interpretive Data was last revised on 2017. Testing performed by: [address] [address] Lymphocyte pct 83.0 % [facility] Comment: Interpretive Data Percent cell count reference ranges are not reported, since discordance with absolute values may lead to misinterpretation of CBC data. Current Interpretive Data was last revised on 2017. Testing performed by: [address] [address] Monocyte pct 1.9 % [facility] Comment: Interpretive Data Percent cell count reference ranges are not reported, since discordance with absolute values may lead to misinterpretation of CBC data. Current Interpretive Data was last revised on 2017. Testing performed by: [address] [address] Eosinophil pct 0.0 % [facility] Comment: Interpretive Data Percent cell count reference ranges are not reported, since discordance with absolute values may lead to misinterpretation of CBC data. Current Interpretive Data was last revised on 2017. Testing performed by: [address] [address] Basophil pct 0.0 % [facility] Comment: Interpretive Data Percent cell count reference ranges are not reported, since discordance with absolute values may lead to misinterpretation of CBC data. Current Interpretive Data was last revised on 2017. Testing performed by: [address] [address] Blood 10/05/2024 6:06 AM CDT 10/05/2024 6:40 AM CDT us Laurel Desir MD LAB BLOOD ORDERABLES Final Res ult SABRA PARKS 2960 [facility] Department of Laboratories [place], [place] [id number] * (ABNORMAL) CBC with auto differential (10/05/2024 6:06 AM CDT) WBC 0.53(C) 3.80 - 9.90 K/cumm Comment: This result has been called to [place] [id number] by [email or web address] on 10/05/2024 07:54:45, and has been read back. Testing performed by: [address] [address] Hgb 7.6(L) 11.9 - 15.5 g/dL SABRA Comment:Testing performed by : [address] [address] Hct 23.6(L) 35.6 - 45.5 % [facility] Comment:Testing performed by : [address] [address] Plt 152 150 - 400 K/cumm SABRA Comment:Testing performed by : [address], [address] MPV 11.6 9.1 - 12.3 fL [facility] Comment:Testing performed by : [address], [address] RBC 2.41(L) 3.90 - 5.20 M/cumm SABRA Comment:Testing performed by : [address], [address] MCV 97.9(H) 81.3 - 96.4 fL [facility] Comment:Testing performed by : [address] [address] MCH 31.5 27.1 - 33.3 pg [facility] Comment:Testing performed by : [address], [address] MCHC 32.2(L) 32.3 - 35.7 g/dL [facility] Comment:Testing performed by : [address], [address] RDW CV 15.0(H) 11.1 - 14.9 % SABRA Comment:Testing performed by : [address], [address] RDW SD 53.0(H) 35.7 - 48.1 fL [facility] Comment:Testing performed by : [address], [address] NRBC abs 0.00 0.00 - 0.01 K/cumm SABRA Comment:Testing performed by : [address], [address] Morphologic Screen Results confirmed by manual morphology review. SABRA Comment:Testing performed by : [address] [address] Blood 10/05/2024 6:06 AM CDT 10/05/2024 6:40 AM CDT us Laurel Desir MD LAB BLOOD ORDERABLES Final Res ult SABRA 4500 [facility] Department [place] [address] * (ABNORMAL) Basic metabolic panel (10/05/2024 6:06 AM CDT) Sodium 139 135 - 145 mmol/L Comment:Testing performed by : [address] [address] Potassium, pl 4.2 3.3 - 4.9 mmol/L SABRA Comment:Testing performed by : [address] [address] Chloride 102 97 - 110 mmol/L SABRA Comment:Testing performed by : [address] [address] CO2 30 22 - 32 mmol/L SABRA Comment:Testing performed by : [address] [address] Anion gap 7 2 - 15 mmol/L SABRA Comment:Testing performed by : [address] [address] BUN 11 6 - 25 mg/dL SABRA Comment:Testing performed by : [address] [address] Creatinine 0.43(L) 0.60 - 1.10 mg/dL SABRA Comment:Testing performed by : [address] [address] Glucose 144 70 - 199 mg/dL SABRA [...] was last revised 2022. Testing performed by: [facility], [address] [place] [address]., [address] Calcium 7.8(L) 8.5 - 10.3 mg/dL SABRA PARKS Comment:Testing performed by : [address] [address] Blood 10/05/2024 6:06 AM CDT 10/05/2024 6:40 AM CDT us Laurel Desir MD LAB BLOOD ORDERABLES Final Res ult Performing Organization Address City/[facility]/ZIP Co de Phone Number SABRA [facility] [place] [address] * Blood smear review (10/04/2024 5:48 AM CDT) RBC morphology Consistent with RBC Indicies Comment:Testing performed by : [address] [address] Platelet estimate Automated Count Confirmed SABRA PARKS Comment:Testing performed by : [address] [address] Blood 10/04/2024 5:48 AM CDT 10/04/2024 6:23 AM CDT us Laurel Desir MD LAB BLOOD ORDERABLES Final Res ult SABRA [facility]0 [facility] [place] [address] * eGFR (10/04/2024 5:48 AM CDT) eGFR [...] was last reviewed 2021. Testing performed by: [address] [address] Blood 10/04/2024 5:48 AM CDT 10/04/2024 6:23 AM CDT us Laurel Desir MD LAB BLOOD ORDERABLES Final Res ult [facility] 2828 [facility] Department [place] [address] * (ABNORMAL) Differential, auto (10/04/2024 5:48 AM CDT) Neutrophil abs 0.04(C) 1.50 - 6.50 K/cumm Comment: Critical value called within last 72 hrs Testing performed by: [address] [address] Imm gran abs 0.00 0.00 - 0.10 K/cumm SABRA Comment:Testing performed by : [address] [address] Lymphocyte abs 0.48(L) 0.80 - 3.30 K/cumm SABRA Comment:Testing performed by : [address] [address] Monocyte abs 0.05(L) 0.20 - 0.80 K/cumm SABRA Comment:Testing performed by : [address] [address] Eosinophil abs 0.00 0.00 - 0.50 K/cumm [facility] Comment:Testing performed by : [address] [address] Basophil abs 0.00 0.00 - 0.10 K/cumm SABRA Comment:Testing performed by : [address] [address] Neutrophil pct 7.0 % [facility] Comment: Differential consistent with previous result. Differential consistent with previous result. Differential consistent with previous result. Interpretive Data Percent cell count reference ranges are not reported, since discordance with absolute values may lead to misinterpretation of CBC data. Current Interpretive Data was last revised on 2017. Testing performed by: [address] [address] Imm gran pct 0.0 % [facility] Comment: Interpretive Data Percent cell count reference ranges are not reported, since discordance with absolute values may lead to misinterpretation of CBC data. Current Interpretive Data was last revised on 2017. Testing performed by: [address] [address] Lymphocyte pct 84.2 % [facility] Comment: Interpretive Data Percent cell count reference ranges are not reported, since discordance with absolute values may lead to misinterpretation of CBC data. Current Interpretive Data was last revised on 2017. Testing performed by: [address] [address] Monocyte pct 8.8 % [facility] Comment: Interpretive Data Percent cell count reference ranges are not reported, since discordance with absolute values may lead to misinterpretation of CBC data. Current Interpretive Data was last revised on 2017. Testing performed by: [address] [address] Eosinophil pct 0.0 % [facility] Comment: Interpretive Data Percent cell count reference ranges are not reported, since discordance with absolute values may lead to misinterpretation of CBC data. Current Interpretive Data was last revised on 2017. Testing performed by: [address] [address] Basophil pct 0.0 % [facility] Comment: Interpretive Data Percent cell count reference ranges are not reported, since discordance with absolute values may lead to misinterpretation of CBC data. Current Interpretive Data was last revised on 2017. Testing performed by: [address] [address] Blood 10/04/2024 5:48 AM CDT 10/04/2024 6:23 AM CDT us Laurel Desir MD LAB BLOOD ORDERABLES Final Res ult SABRA 4500 [facility] Department [place] [address] * (ABNORMAL) CBC with auto differential (10/04/2024 5:48 AM CDT) WBC 0.57(C) 3.80 - 9.90 K/cumm Comment: Critical value called within last 72 hrs Testing performed by: [address] [address] Hgb 7.7(L) 11.9 - 15.5 g/dL SABRA Comment:Testing performed by : [address] [address] Hct 23.8(L) 35.6 - 45.5 % SABRA Comment:Testing performed by : [address] [address] Plt 136(L) 150 - 400 K/cumm SABRA Comment:Testing performed by : [address] [address] MPV 11.5 9.1 - 12.3 fL SABRA Comment:Testing performed by : [address] [address] RBC 2.46(L) 3.90 - 5.20 M/cumm SABRA Comment:Testing performed by : [address] [address] MCV 96.7(H) 81.3 - 96.4 fL SABRA Comment:Testing performed by : [address] [address] MCH 31.3 27.1 - 33.3 pg SABRA PARKS Comment:Testing performed by : [address] [address] MCHC 32.4 32.3 - 35.7 g/dL SABRA PARKS Comment:Testing performed by : [address] [address] RDW CV 15.1(H) 11.1 - 14.9 % SABRA PARKS Comment:Testing performed by : [address] [address] RDW SD 52.9(H) 35.7 - 48.1 fL SABRA PARKS Comment:Testing performed by : [address] [address] NRBC abs 0.00 0.00 - 0.01 K/cumm SABRA PARKS Comment:Testing performed by : [address] [address] Blood 10/04/2024 5:48 AM CDT 10/04/2024 6:23 AM CDT us Laurel Desir MD LAB BLOOD ORDERABLES Edited Re sult - Final SABRA [facility]9 [facility] Department of Laboratories [place], [place] [id number] * (ABNORMAL) Basic metabolic panel (10/04/2024 5:48 AM CDT) Pathologist [facility] Sodium 139 135 - 145 mmol/L Comment:Testing performed by : [address] [address] Potassium, pl 4.1 3.3 - 4.9 mmol/L SABRA PARKS Comment:Testing performed by : [address] [address] Chloride 103 97 - 110 mmol/L SABRA PARKS Comment:Testing performed by : [address] [address] CO2 31 22 - 32 mmol/L SABRA PARKS Comment:Testing performed by : [address] [address] Anion gap 5 2 - 15 mmol/L SABRA PARKS Comment:Testing performed by : [address] [address] BUN 8 6 - 25 mg/dL SABRA Comment:Testing performed by : [address] [address] Creatinine 0.41(L) 0.60 - 1.10 mg/dL SABRA Comment:Testing performed by : [address] [address] Glucose 141 70 - 199 mg/dL SABRA [...] was last revised 2022. Testing performed by: [address] [address] Calcium 7.7(L) 8.5 - 10.3 mg/dL SABRA Comment:Testing performed by : [address] [address] Blood 10/04/2024 5:48 AM CDT 10/04/2024 6:23 AM CDT us Laurel Desir MD LAB BLOOD ORDERABLES Final Res ult SABRA 7438 [facility] Department [place] [address] * POCT glucose (10/03/2024 8:17 PM CDT) [facility] Signature Glucose, POC 192 70 - 199 mg/dL Comment:Testing performed by : [address] [address] Glucose comment 1 RN/MD Notified SABRA PARKS Comment:Testing performed by : [facility], [address] [place] [address]., [address] Blood 10/03/2024 8:17 PM CDT 10/03/2024 8:17 PM CDT Juan A Rios MD LAB POCT ORDERABLE S - DEVICE Final Result SABRA PARKS 0660 [facility] Department [place] [address] * XR Chest 1 View (10/03/2024 9:49 [...] Esdras Edgar M.D. MM: MM Report ID: [id number] Reading Location: [id number] Procedure Note Esdras Edgar MD - 10/03/2024 [...] Esdras Edgar M.D. MM: MM Report ID: [id number] Reading Location: [place] [address] Gretta Martinez MD IMG XR PROCEDURES Aylin [...] was last reviewed 2021. Testing performed by: [facility], [address] [place] [address]., [address] Blood 10/03/2024 6:19 AM CDT 10/03/2024 7:42 AM CDT us Laurel Desir MD LAB BLOOD ORDERABLES Final Res ult SABRA 3747 [facility] Department [place] [address] * (ABNORMAL) Differential, auto (10/03/2024 6:19 AM CDT) Neutrophil abs 0.03(C) 1.50 - 6.50 K/cumm Comment: Critical value called within last 72 hrs Testing performed by: [address] [address] Imm gran abs 0.01 0.00 - 0.10 K/cumm SABRA Comment:Testing performed by : [address] [address] Lymphocyte abs 0.41(L) 0.80 - 3.30 K/cumm SABRA Comment:Testing performed by : [address] [address] Monocyte abs 0.06(L) 0.20 - 0.80 K/cumm SABRA Comment:Testing performed by : [address] [address] Eosinophil abs 0.00 0.00 - 0.50 K/cumm SABRA Comment:Testing performed by : [address] [address] Basophil abs 0.00 0.00 - 0.10 K/cumm SABRA Comment:Testing performed by : [address] [address] Neutrophil pct 5.8 % SABRA Comment: Differential consistent with previous result. Differential consistent with previous result. Interpretive Data Percent cell count reference ranges are not reported, since discordance with absolute values may lead to misinterpretation of CBC data. Current Interpretive Data was last revised on 2017. Testing performed by: [address] [address] Imm gran pct 2.0 % [facility] Comment: Interpretive Data Percent cell count reference ranges are not reported, since discordance with absolute values may lead to misinterpretation of CBC data. Current Interpretive Data was last revised on 2017. Testing performed by: [address] [address] Lymphocyte pct 80.4 % [facility] Comment: Interpretive Data Percent cell count reference ranges are not reported, since discordance with absolute values may lead to misinterpretation of CBC data. Current Interpretive Data was last revised on 2017. Testing performed by: [address] [address] Monocyte pct 11.8 % [facility] Comment: Interpretive Data Percent cell count reference ranges are not reported, since discordance with absolute values may lead to misinterpretation of CBC data. Current Interpretive Data was last revised on 2017. Testing performed by: [address] [address] Eosinophil pct 0.0 % [facility] Comment: Interpretive Data Percent cell count reference ranges are not reported, since discordance with absolute values may lead to misinterpretation of CBC data. Current Interpretive Data was last revised on 2017. Testing performed by: [address] [address] Basophil pct 0.0 % [facility] Comment: Interpretive Data Percent cell count reference ranges are not reported, since discordance with absolute values may lead to misinterpretation of CBC data. Current Interpretive Data was last revised on 2017. Testing performed by: [address] [address] Blood 10/03/2024 6:19 AM CDT 10/03/2024 6:23 AM CDT us Laurel Desir MD LAB BLOOD ORDERABLES Final Res ult SABRA PARKS 0517 [facility] Department [place] [address] * (ABNORMAL) CBC with auto differential (10/03/2024 6:19 AM CDT) WBC 0.51(C) 3.80 - 9.90 K/cumm Comment: Critical value called within last 72 hrs Testing performed by: [address], [address] Hgb 7.6(L) 11.9 - 15.5 g/dL SABRA Comment:Testing performed by : [address] [address] Hct 23.5(L) 35.6 - 45.5 % SABRA Comment:Testing performed by : [address] [address] Plt 107(L) 150 - 400 K/cumm SABRA Comment:Testing performed by : [address], [address] MPV 11.8 9.1 - 12.3 fL SABRA Comment:Testing performed by : [address], [address] RBC 2.44(L) 3.90 - 5.20 M/cumm SABRA Comment:Testing performed by : [address], [address] MCV 96.3 81.3 - 96.4 fL SABRA Comment:Testing performed by : [address], [address] MCH 31.1 27.1 - 33.3 pg [facility] Comment:Testing performed by : [address], [address] MCHC 32.3 32.3 - 35.7 g/dL SABRA Comment:Testing performed by : [address], [address] RDW CV 15.0(H) 11.1 - 14.9 % SABRA Comment:Testing performed by : [address], [address] RDW SD 52.5(H) 35.7 - 48.1 fL SABRA Comment:Testing performed by : [address], [address] NRBC abs 0.00 0.00 - 0.01 K/cumm SABRA Comment:Testing performed by : [address] [address] Morphologic Screen Results confirmed by manual morphology review. SABRA Comment:Testing performed by : [address] [address] Blood 10/03/2024 6:19 AM CDT 10/03/2024 6:23 AM CDT us Laurel Desir MD LAB BLOOD ORDERABLES Final Res ult Performing Organization Address [facility]/[place] [facility] de Phone Number [address] [place] [address] * (ABNORMAL) CRP (acute phase) (10/03/2024 6:19 AM CDT) Pathologist [facility] CRP 95.5(H) <=10.0 mg/L Comment:Testing performed by : [address] [address] Blood 10/03/2024 6:19 AM CDT 10/03/2024 6:23 AM CDT us Gretta Martinez MD LAB BLOOD ORDERABLES F inal Result Performing Organization Address [facility] de Phone Number [address] [place] [address] * (ABNORMAL) Basic metabolic panel (10/03/2024 6:19 AM CDT) Pathologist [facility] Sodium 140 135 - 145 mmol/L Comment:Testing performed by : [address] [address] Potassium, pl 4.5 3.3 - 4.9 mmol/L SABRA PARKS Comment: Delta - Results Reviewed Testing performed by: [address] [address] Chloride 103 97 - 110 mmol/L SABRA PARKS Comment:Testing performed by : [address] [address] CO2 31 22 - 32 mmol/L SABRA PARKS Comment:Testing performed by : [address] [address] Anion gap 6 2 - 15 mmol/L SABRA PARKS Comment:Testing performed by : [address] [address] BUN 7 6 - 25 mg/dL SABRA Comment:Testing performed by : [address] [address] Creatinine 0.40(L) 0.60 - 1.10 mg/dL SABRA Comment:Testing performed by : [address] [address] Glucose 145 70 - 199 mg/dL SABRA [...] was last revised 2022. Testing performed by: [address] [address] Calcium 7.7(L) 8.5 - 10.3 mg/dL SABRA Comment:Testing performed by : [address] [address] Blood 10/03/2024 6:19 AM CDT 10/03/2024 6:23 AM CDT us Laurel Desir MD LAB BLOOD ORDERABLES Final Res ult SABRA [address] [facility] Department [place] [address] * (ABNORMAL) Blood smear review (10/02/2024 4:26 AM CDT) RBC morphology Present(A) Comment:Testing performed by : [address] [place]., [address] Anisocytosis Slight(A) SABRA Comment:Testing performed by : [facility], [address] [place] [address]., [address] Microcytes 3-7/HPF(A) SABRA Comment:Testing performed by : [address] [address] Platelet estimate Automated Count Confirmed SABRA Comment:Testing performed by : [address] [address] Giant platelets Present(A) SABRA Comment:Testing performed by : [facility], [address] [place] [address], [place]., [address] Blood 10/02/2024 4:26 AM CDT 10/02/2024 5:24 AM CDT us Laurel Desir MD LAB BLOOD ORDERABLES Final Res ult SABRA 2670 [facility] Department [place] [address] * eGFR (10/02/2024 4:26 AM CDT) eGFR [...] was last reviewed 2021. Testing performed by: [address] [address] Blood 10/02/2024 4:26 AM CDT 10/02/2024 5:24 AM CDT us Laurel Desir MD LAB BLOOD ORDERABLES Final Res ult SABRA 0625 [facility] Department [place] [address] * (ABNORMAL) Differential, auto (10/02/2024 4:26 AM CDT) Neutrophil abs 0.01(C) 1.50 - 6.50 K/cumm Comment: This result has been called to [id number] by [id number] on 10/02/2024 07:28:40, and has been read back. Testing performed by: [address] [address] Imm gran abs 0.00 0.00 - 0.10 K/cumm SABRA Comment:Testing performed by : [address] [address] Lymphocyte abs 0.35(L) 0.80 - 3.30 K/cumm SABRA Comment:Testing performed by : [address] [address] Monocyte abs 0.03(L) 0.20 - 0.80 K/cumm SABRA Comment:Testing performed by : [address] [address] Eosinophil abs 0.00 0.00 - 0.50 K/cumm SABRA Comment:Testing performed by : [address] [address] Basophil abs 0.00 0.00 - 0.10 K/cumm SABRA Comment:Testing performed by : [address] [address] Neutrophil pct 2.6 % SABRA Comment: Interpretive Data Percent cell count reference ranges are not reported, since discordance with absolute values may lead to misinterpretation of CBC data. Current Interpretive Data was last revised on 2017. Testing performed by: [address] [address] Imm gran pct 0.0 % [facility] Comment: Interpretive Data Percent cell count reference ranges are not reported, since discordance with absolute values may lead to misinterpretation of CBC data. Current Interpretive Data was last revised on 2017. Testing performed by: [address] [address] Lymphocyte pct 89.7 % [facility] Comment: Interpretive Data Percent cell count reference ranges are not reported, since discordance with absolute values may lead to misinterpretation of CBC data. Current Interpretive Data was last revised on 2017. Testing performed by: [address] [address] Monocyte pct 7.7 % [facility] Comment: Interpretive Data Percent cell count reference ranges are not reported, since discordance with absolute values may lead to misinterpretation of CBC data. Current Interpretive Data was last revised on 2017. Testing performed by: [address] [address] Eosinophil pct 0.0 % [facility] Comment: Interpretive Data Percent cell count reference ranges are not reported, since discordance with absolute values may lead to misinterpretation of CBC data. Current Interpretive Data was last revised on 2017. Testing performed by: [address] [address] Basophil pct 0.0 % [facility] Comment: Interpretive Data Percent cell count reference ranges are not reported, since discordance with absolute values may lead to misinterpretation of CBC data. Current Interpretive Data was last revised on 2017. Testing performed by: [address] [address] Blood 10/02/2024 4:26 AM CDT 10/02/2024 5:24 AM CDT us Laurel Desir MD LAB BLOOD ORDERABLES Final Res ult SABRA 4874 [facility] Department [place] [address] * (ABNORMAL) CBC with auto differential (10/02/2024 4:26 AM CDT) WBC 0.39(C) 3.80 - 9.90 K/cumm Comment: This result has been called to [id number] by [id number] on 10/02/2024 07:28:40, and has been read back. Testing performed by: [address] [address] Hgb 7.5(L) 11.9 - 15.5 g/dL SABRA Comment:Testing performed by : [address] [address] Hct 22.5(L) 35.6 - 45.5 % SABRA Comment:Testing performed by : [address] [address] Plt 84(L) 150 - 400 K/cumm [facility] Comment:Testing performed by : [address], [address] MPV 11.5 9.1 - 12.3 fL [facility] Comment:Testing performed by : [address], [address] RBC 2.42(L) 3.90 - 5.20 M/cumm [facility] Comment:Testing performed by : [address] [address] MCV 93.0 81.3 - 96.4 fL [facility] Comment:Testing performed by : [address] [address] MCH 31.0 27.1 - 33.3 pg [facility] Comment:Testing performed by : [address] [address] MCHC 33.3 32.3 - 35.7 g/dL [facility] Comment:Testing performed by : [address] [address] RDW CV 14.9 11.1 - 14.9 % SABRA Comment:Testing performed by : [address], [address] RDW SD 50.3(H) 35.7 - 48.1 fL SABRA PARKS Comment:Testing performed by : [facility], [address] [place] [address]., [address] NRBC abs 0.00 0.00 - 0.01 K/cumm SABRA PARKS Comment:Testing performed by : [address] [address] Blood 10/02/2024 4:26 AM CDT 10/02/2024 5:24 AM CDT Laurel Desir MD LAB BLOOD ORDERABLES Edited Re sult - Final Performing Organization Address [facility] Co de Phone Number [address] [place] [address] * (ABNORMAL) Phosphorus (10/02/2024 4:26 AM CDT) Phosphorus, pl 1.8(L) 2.3 - 4.5 mg/dL Comment:Testing performed by : [address], [address] Blood 10/02/2024 4:26 AM CDT 10/02/2024 5:24 AM CDT Juan A Rios MD LAB BLOOD ORDERABL ES Final Result Performing Organization Address [facility] Co de Phone Number [address] [place] [address] * Magnesium (10/02/2024 4:26 AM CDT) Magnesium 1.9 1.4 - 2.5 mg/dL Comment:Testing performed by : [address] [address] Blood 10/02/2024 4:26 AM CDT 10/02/2024 5:24 AM CDT Juan A Rios MD LAB BLOOD ORDERABL ES Final Result SABRA 4500 [facility] Department [place] [address] * (ABNORMAL) Basic metabolic panel (10/02/2024 4:26 AM CDT) Sodium 140 135 - 145 mmol/L Comment:Testing performed by : [address] [address] Potassium, pl 3.4 3.3 - 4.9 mmol/L SABRA Comment:Testing performed by : [address], [place]., [address] Chloride 101 97 - 110 mmol/L SABRA Comment:Testing performed by : [address] [address] CO2 32 22 - 32 mmol/L SABRA Comment:Testing performed by : [address], [place]., [address] Anion gap 7 2 - 15 mmol/L SABRA Comment:Testing performed by : [address] [address] BUN 6 6 - 25 mg/dL SABRA Comment:Testing performed by : [address] [address] Creatinine 0.47(L) 0.60 - 1.10 mg/dL SABRA Comment:Testing performed by : [address] [address] Glucose 137 70 - 199 mg/dL [facility] Comment: Interpretive Data Fasting glucose >/= 126 [...] was last revised 2022. Testing performed by: [address] [address] Calcium 7.7(L) 8.5 - 10.3 mg/dL [facility] Comment:Testing performed by : [address] [address] Blood 10/02/2024 4:26 AM CDT 10/02/2024 5:24 AM CDT Laurel Desir MD LAB BLOOD ORDERABLES Final Res ult Performing Organization Address [facility] Co de Phone Number [address] [address] * Coccidioides antibody screen w/reflex Blood (10/01/2024 8:07 PM CDT) [facility] Coccidioides ab screen, ser Negative Negative [facility] Comment: Repeat testing on a new sample in 2-3 weeks if clinically indicated. ADDITIONAL INFORMATION This test has been modified from the level vial marker's instructions. Its performance characteristics were determined by [facility] in a manner consistent with CLIA requirements. This test has not been cleared or approved by the U.S. Food and Drug Administration. Test Performed by: [address] [address] Motorboat Mechanic Helper: Lloyd Olmstead Ph.D.; CLIA# [id number] Testing performed by: [address] [address] Blood 10/01/2024 8:07 PM CDT 10/01/2024 8:23 PM CDT us Gretta Martinez MD LAB MICROBIOLOGY - GEN ERAL ORDERABLES Final Result Performing Organization Address [facility]/ZIP Co de Phone Number [address] [address] [facility] * Blastomyces antibody, EIA, serum Blood (10/01/2024 8:07 PM CDT) [facility] Blastomyces Antibody Negative Negative [facility] Comment: A single negative result does not exclude the diagnosis of blastomycosis. Repeat testing on a new sample in 7-14 days if clinically indicated. Test Performed by: [facility] [address] [place] [address] Motorboat Mechanic Helper: Lloyd Olmstead Ph.D.; CLIA# [id number] Testing performed by: [facility], [address] [place] [address]., [address] Blood 10/01/2024 8:07 PM CDT 10/01/2024 8:23 PM CDT Gretta Martinez MD LAB MICROBIOLOGY - GEN ERAL ORDERABLES Final Result SABRA [address] [place] [address] [facility] * Cryptococcal Antigen, Serum Blood (10/01/2024 8:07 PM CDT) Pathologist [facility] Cryptococcus ag, Serum Negative Negative Comment: The [...] data last revised 2018. Testing performed by: [facility], [address] [facility], [place]., [address] Blood 10/01/2024 8:07 PM CDT 10/02/2024 2:16 AM CDT Gretta Martinez MD LAB MICROBIOLOGY - GEN ERAL ORDERABLES Final Result SABRA [address] [place] [address] * Aspergillus galactomannan antigen Blood (10/01/2024 8:07 PM CDT) Aspergillus galactomannan Ag [facility] Comment: Aspergillus Ag, S was cancelled on 10/03/2024 at 12:25; INCORRECT COLLECTION CONTAINER SUBMITTED. Test Performed by: [place] [address] Motorboat Mechanic Helper: Lloyd Olmstead Ph.D.; CLIA# [id number] Testing performed by: [facility], [address] [place] [address]., [address] Blood 10/01/2024 8:07 PM CDT 10/01/2024 8:23 PM CDT Gretta Martinez MD LAB MICROBIOLOGY - GEN ERAL ORDERABLES Final Result Performing Organization Address City/[facility]/ZIP Co de Phone Number [address] [place] [address] [facility] * Transfuse RBC (10/01/2024 6:25 PM CDT) Blood Lisette Loera NP BLOOD TRANSFUSION ORDERABLES Final Result Performing Organization Address [facility] Co de Phone Number [address] [address] * Histoplasma Antigen Urine (10/01/2024 6:10 PM CDT) Histo/Blasto Ag Value Not Detected ng/mL [facility] Comment: ADDITIONAL INFORMATION This test was developed and its performance characteristics determined by [facility] in a manner consistent with CLIA requirements. This test has not been cleared or approved by the U.S. Food and Drug Administration. Test Performed by: [facility] [place] [id number] Motorboat Mechanic Helper: Lloyd Olmstead Ph.D.; CLIA# [id number] Testing performed by: [address] [address] Histo/Blasto Ag Result Not Detected Not Detected SABRA Comment: No antigen from Histoplasma or Blastomyces detected. False negative results may occur depending on extent of disease, and/or site of infection. Repeat testing on a new specimen if clinically indicated. Testing performed by: [address] [address] Urine 10/01/2024 6:10 PM CDT 10/01/2024 6:27 PM CDT Gretta Martinez MD LAB MICROBIOLOGY - GEN ERAL ORDERABLES Final Result Performing Organization Address [facility] Co de Phone Number SABRA [address] [facility] [place] [address] [facility] * Legionella antigen Urine (10/01/2024 6:10 PM CDT) Pathologist [facility] Legionella Ag Negative Negative Comment: Interpretive Data This test detects only Legionella pneumophila serogroup 1 antigen. Testing performed by [facility] Microbiology Laboratory ([phone]). Current interpretive data was last revised on 2019. Testing performed by: [facility], [address] [place] [address], [place]., [address] Urine 10/01/2024 6:10 PM CDT 10/01/2024 10:12 PM CDT Gretta Martinez MD LAB MICROBIOLOGY - GEN ERAL ORDERABLES Final Result [facility] [address] [facility] Department [place] [address] * Respiratory pathogen panel Nasopharyngeal (10/01/2024 5:35 PM CDT) Pathologist [facility] Influenza A RNA Not Detected Not Detected Comment:Testing performed by : [facility], [address] [place]., [address] Influenza B RNA Not Detected Not Detected [place] Comment:Testing performed by : [facility], [address] [place]., [address] RSV RNA Not Detected Not Detected [place] Comment:Testing performed by : [facility], [address] [place]., [address] COVID-19 RNA Not Detected Not Detected [place] Comment:Testing performed by : [facility], [address] [place]., [address] Coronavirus 229E RNA Not Detected Not Detected [place] Comment:Testing performed by : [facility], [address] [place]., [address] Coronavirus HKU1 RNA Not Detected Not Detected [place] Comment:Testing performed by : [facility], [address] [place]., [address] Coronavirus NL63 RNA Not Detected Not Detected [place] Comment:Testing performed by : [facility], [address] [place]., [address] Coronavirus OC43 RNA Not Detected Not Detected [place] Comment:Testing performed by : [facility], [address] [place]., [address] Adenovirus DNA Not Detected Not Detected [place] Comment:Testing performed by : [facility], [address] [place]., [address] Metapneumovirus RNA Not Detected Not Detected CERNER Comment:Testing performed by : [facility], [address] [place]., [address] Rhinovirus/Enterov irus RNA Not Detected Not Detected CERNER Comment:Testing performed by : [facility], [address] [place]., [address] Parainfluenza 1 RNA Not Detected Not Detected [place] Comment:Testing performed by : [facility], [address] [place]., [address] Parainfluenza 2 RNA Not Detected Not Detected [facility] Comment:Testing performed by : [facility], [address] [facility], [address] Parainfluenza 3 RNA Not Detected Not Detected [facility] Comment:Testing performed by : [facility], [address] [facility], [address] Parainfluenza 4 RNA Not Detected Not Detected [facility] Comment:Testing performed by : [facility], [address] [facility], [address] B. pertussis DNA Not Detected Not Detected [facility] Comment:Testing performed by : [facility], [address] [facility], [address] B. parapertussis DNA Not Detected Not Detected [facility] Comment:Testing performed by : [facility], [address] [place] [address], [address] C. pneumoniae DNA Not Detected Not Detected [facility] Comment:Testing performed by : [facility], [address] [facility], [address] M. pneumoniae DNA Not Detected Not Detected [facility] Comment:Testing performed by : [facility], [address] [place] [address], [address] Nasopharyngeal 10/01/2024 5: 35 PM CDT 10/01/2024 10:13 PM CDT [facility] - 10/01/2024 11:06 PM CDT Is the Patient experiencing symptoms consistent with COVID?->No Surveillance testing for transplant patient?->No Interpretive Data The [email or web address] FilmArray Respiratory Panel (RP2.1) assay is a [...] assay has FDA clearance for testing of TIMBER SURVEYOR swabs. The performance of additional specimen types has been assessed by the performing laboratory. The performance characteristics of this assay have been determined by [facility]. Current interpretive data was last revised on 22. Gretta Martinez MD LAB MICROBIOLOGY - GEN ERAL ORDERABLES Final Result [facility] [address] [facility] Department [place] [address] * CT Chest Abdomen Pelvis [...] scarring from previous diverticulitis. There is a pxgzkume-ms-qoooy amount of stool throughout the colon. PERITONEUM: [...] Recommend correlation for bladder outlet obstruction. 4. Dlhdovxk-ov-cmuep amount of stool throughout the colon. Recommend correlation for constipation. 5. Unchanged T12 compression fracture with retropulsion of the posterior endplate causing spinal canal stenosis. Additional compression fractures as discussed above. 6. Additional findings as above. THIS IS AN ELECTRONICALLY VERIFIED FINAL REPORT 10/01/2024 4:42 PM - Electronically signed by Tristian Apple M.D. AM: AM Report ID: [id number] Reading Location: [id number] Procedure Note Tristian Apple MD - 10/01/2024 [...] chronic scarring fromprevious diverticulitis. There is a gunpxhfo-ye-ecxis amount of stool throughoutthe colon. PERITONEUM: No [...] bladder. Recommend correlation for bladderoutlet obstruction. 4. Flioytku-tk-vtepj amount of stool throughout the colon. Recommend correlation for constipation. 5. Unchanged T12 compression fracture with retropulsion of the posterior endplate causing spinal canal stenosis. Additional compression fracturesas discussed above. 6. Additional findings as above. THIS IS AN ELECTRONICALLY VERIFIED FINAL REPORT 10/01/2024 4:42 PM - Electronically signed by Tristian Apple M.D. AM: AM Report ID: [id number] Reading Location: [place] [address] Juan A Rios MD IMG CT PROCEDURES Final Result * Prepare RBC: 1 Units (10/01/2024 2:40 PM CDT) Units requested 1 Comment:Testing performed by : [address] [address] Units requested Ready SABRA PARKS Comment:Testing performed by : [address] [address] Unit Number [id number] Product code [id number] [facility] Blood Expiration Date [facility] Product Blood Type (for scanning) 5100 [facility] Product Blood Type OPOS [facility] Dispense Status DISPENSED [facility] Blood 10/01/2024 2:40 PM CDT 10/01/2024 2:39 PM CDT us Lisette Loera NP BLOOD BANK PRODUCT ORDERABLES Final Result [facility] [address] [facility] Department [place] [address] * (ABNORMAL) Urinalysis reflex to microscopic and culture Urine (10/01/2024 2:02 PM CDT) Color, ur Yellow Yellow Comment:Testing performed by : [address] [address] Clarity, ur Clear Clear SABRA Comment:Testing performed by : [address] [address] Specific gravity, ur 1.014 1.003 - 1.030 SABRA Comment:Testing performed by : [address] [address] pH, urine 6.5 SABRA Comment: Interpretive Data U rine pH is affected by diet, medications, systemic acid-base disturbances, and renal tubular function. pH may affect urinary stone formation. For example, urine pH below 6.0 may help reduce the tendency for calcium phosphate stones and pH greater than 6.0 may reduce the tendency for uric acid stone formation. Source: [facility] Current Interpretive Data was last revised on 2017 Testing performed by: [address] [address] Protein, ur ql Negative Negative SABRA Comment:Testing performed by : [facility], [address] [place] [address], [place]., [address] Glucose, ur ql Negative Negative SABRA Comment:Testing performed by : [facility], [address] [place] [address], [place]., [address] Ketones, ur Negative Negative SABRA Comment:Testing performed by : [address], [place]., [address] Bilirubin, ur Negative Negative SABRA Comment:Testing performed by : [address], [place]., [address] Blood, ur Negative Negative SABRA Comment:Testing performed by : [address], [place]., [address] Urobilinogen, ur 2.0(A) <2.0 mg/dL SABRA Comment:Testing performed by : [address], [place]., [address] Nitrite, ur Negative Negative SABRA Comment:Testing performed by : [address], [place]., [address] Leukocyte esterase, ur Negative Negative SABRA Comment:Testing performed by : [address], [place]., [address] UA reflex comment Reflex conditions for microscopic UA and culture not met. SABRA Comment:Testing performed by : [address], [place]., [address] Urine 10/01/2024 2:02 PM CDT 10/01/2024 2:07 PM CDT Juan A Rios MD LAB MICROBIOLOGY - GENERAL ORDERABLES Final Result SABRA PARKS [address] [facility] Department [place] [address] * (ABNORMAL) Pro B-type natriuretic [...] Last Revised Date: 2017. Testing performed by: [facility], [address] [place] [address]., [address] Blood 10/01/2024 12:3 7 PM CDT 10/01/2024 12:41 PM CDT us Gretta Martinez MD LAB BLOOD ORDERABLES F inal Result [facility] [address] [facility] Department [place] [address] * eGFR (10/01/2024 5:22 AM [...] was last reviewed 2021. Testing performed by: [address] [address] Blood 10/01/2024 5:22 AM CDT 10/01/2024 6:07 AM CDT Laurel Desir MD LAB BLOOD ORDERABLES Final Res ult [facility] [address] [facility] Department [place] [address] * (ABNORMAL) Differential, auto (10/01/2024 5:22 AM CDT) Neutrophil abs 0.00(C) 1.50 - 6.50 K/cumm Comment: Critical value called within last 72 hrs Testing performed by: [address] [address] Imm gran abs 0.01 0.00 - 0.10 K/cumm SABRA Comment:Testing performed by : [address] [address] Lymphocyte abs 0.25(L) 0.80 - 3.30 K/cumm SABRA Comment:Testing performed by : [address] [address] Monocyte abs 0.01(L) 0.20 - 0.80 K/cumm SABRA Comment:Testing performed by : [address] [place]., [address] Eosinophil abs 0.00 0.00 - 0.50 K/cumm SABRA Comment:Testing performed by : [address] [address] Basophil abs 0.00 0.00 - 0.10 K/cumm CERPAOLA Comment:Testing performed by : [address] [address] Neutrophil pct 0.0 % [facility]ER[place] Comment: Differential consistent with previous result. Differential consistent with previous result. Interpretive Data Percent cell count reference ranges are not reported, since discordance with absolute values may lead to misinterpretation of CBC data. Current Interpretive Data was last revised on 2017. Testing performed by: [address] [address] Imm gran pct 3.7 % [facility] Comment: Interpretive Data Percent cell count reference ranges are not reported, since discordance with absolute values may lead to misinterpretation of CBC data. Current Interpretive Data was last revised on 2017. Testing performed by: [address] [address] Lymphocyte pct 92.6 % [facility] Comment: Interpretive Data Percent cell count reference ranges are not reported, since discordance with absolute values may lead to misinterpretation of CBC data. Current Interpretive Data was last revised on 2017. Testing performed by: [address] [address] Monocyte pct 3.7 % [place] Comment: Interpretive Data Percent cell count reference ranges are not reported, since discordance with absolute values may lead to misinterpretation of CBC data. Current Interpretive Data was last revised on 2017. Testing performed by: [address] [address] Eosinophil pct 0.0 % [place] Comment: Interpretive Data Percent cell count reference ranges are not reported, since discordance with absolute values may lead to misinterpretation of CBC data. Current Interpretive Data was last revised on 2017. Testing performed by: [address] [address] Basophil pct 0.0 % [place] Comment: Interpretive Data Percent cell count reference ranges are not reported, since discordance with absolute values may lead to misinterpretation of CBC data. Current Interpretive Data was last revised on 2017. Testing performed by: [address] [address] Blood 10/01/2024 5:22 AM CDT 10/01/2024 6:07 AM CDT us Laurel Deisr MD LAB BLOOD ORDERABLES Final Res ult SABRA [address] [facility] Department [place] [address] * (ABNORMAL) CBC with auto differential (10/01/2024 5:22 AM CDT) WBC 0.27(C) 3.80 - 9.90 K/cumm Comment: Critical value called within last 72 hrs Testing performed by: [address] [address] Hgb 7.1(L) 11.9 - 15.5 g/dL SABRA Comment:Testing performed by : [address] [address] Hct 21.2(L) 35.6 - 45.5 % SABRA Comment:Testing performed by : [address] [address] Plt 54(L) 150 - 400 K/cumm SABRA Comment:Testing performed by : [address] [address] MPV 11.8 9.1 - 12.3 fL SABRA Comment:Testing performed by : [address] [address] RBC 2.26(L) 3.90 - 5.20 M/cumm SABRA Comment:Testing performed by : [address] [address] MCV 93.8 81.3 - 96.4 fL SABRA Comment:Testing performed by : [address] [address] MCH 31.4 27.1 - 33.3 pg SABRA PARKS Comment:Testing performed by : [address] [address] MCHC 33.5 32.3 - 35.7 g/dL SABRA PARKS Comment:Testing performed by : [address] [address] RDW CV 15.8(H) 11.1 - 14.9 % SABRA PARKS Comment:Testing performed by : [address], [address] RDW SD 53.4(H) 35.7 - 48.1 fL SABRA PARKS Comment:Testing performed by : [address], [address] NRBC abs 0.00 0.00 - 0.01 K/cumm SABRA PARKS Comment:Testing performed by : [address], [address] Blood 10/01/2024 5:22 AM CDT 10/01/2024 6:07 AM CDT us Laurel Desir MD LAB BLOOD ORDERABLES Final Res ult [address] [place] [address] * (ABNORMAL) Lactate dehydrogenase (LD) (10/01/2024 5:22 AM CDT) Lactate dehydrogenase (LDH) 378(H) 100 - 250 Units/L Comment:Testing performed by : [address] [address] Blood 10/01/2024 5:22 AM CDT 10/01/2024 6:07 AM CDT us Juan A Rios MD LAB BLOOD ORDERABL ES Final Result [address] [place] [address] * (ABNORMAL) Basic metabolic panel (10/01/2024 5:22 AM CDT) Sodium 141 135 - 145 mmol/L Comment:Testing performed by : [address] [address] Potassium, pl 3.5 3.3 - 4.9 mmol/L SABRA Comment:Testing performed by : [address] [address] Chloride 103 97 - 110 mmol/L SABRA Comment:Testing performed by : [address], [place]., [address] CO2 31 22 - 32 mmol/L SABRA Comment:Testing performed by : [address] [address] Anion gap 7 2 - 15 mmol/L SABRA Comment:Testing performed by : [address] [address] BUN 8 6 - 25 mg/dL SABRA Comment:Testing performed by : [address], [place]., [address] Creatinine 0.43(L) 0.60 - 1.10 mg/dL SABRA Comment:Testing performed by : [address] [address] Glucose 121 70 - 199 mg/dL [facility] Comment: Interpretive Data Fasting glucose >/= 126 [...] was last revised 2022. Testing performed by: [address] [address] Calcium 7.6(L) 8.5 - 10.3 mg/dL SABRA Comment:Testing performed by : [address] [address] Blood 10/01/2024 5:22 AM CDT 10/01/2024 6:07 AM CDT us Laurel Desir MD LAB BLOOD ORDERABLES Final Res ult SABRA [address] [facility] Department [place] [address] * TRANSTHORACIC ECHO (TTE) COMPLETE W DOPPLER/CF W CONTRAST (09/30/2024 2:00 PM CDT) Estimated EF 55% % CONS SCIMAGE Anatomical Region Laterality Modality Ultrasound 09/30/2024 1:33 PM CDT Narrative 10/03/2024 4:32 PM CDT Transthoracic Echocardiographic Report Patient Name: VENESSA GARCIA : 1940 (84y 7m) Gender: F Study Date: 09/30/2024 01:33:45 PM Ht(Inch): 60 Wt(Lb): 147.99 BSA: 1.69 Saw Sharpener: Nargis Longoria RDCS Location: [id number] Order Provider: LAUREL DESIR Heart Rate: 88 BMI: 28.9 BP: 123 / 79 Ref Provider: LAUREL DESIR PROCEDURES: Echocardiographic Report: ([id number]) Transthoracic complete echo with contrast, 2D, spectral [...] - 10/03/2024 Transthoracic Echocardiographic Report Patient Name: VENESSA GARCIA : 1940 (84y 7m) Gender: F Study Date: 09/30/2024 01:33:45 PM Ht(Inch): 60 Wt(Lb): 147.99 BSA: 1.69 Saw Sharpener: Nargis Longoria [facility] Location: [place] [address] Order Provider:LAUREL DESIR Heart Rate: 88 BMI: 28.9 BP: 123 / 79 Ref Provider: MEDAVARAMLAUREL PROCEDURES: Echocardiographic Report: ([id number]) Transthoracic complete echo withcontrast, 2D, spectral and [...] Immature platelet fraction (09/30/2024 6:44 AM CDT) [facility] IPF 4.3 1.6 - 10.1 % Comment:Testing performed by : [address] [address] Blood 09/30/2024 6:44 AM CDT 09/30/2024 6:47 AM CDT us Laurel Desir MD LAB BLOOD ORDERABLES Final Res ult SABRA 5470 [facility] Department [place] [address] * (ABNORMAL) Blood smear review (09/30/2024 6:44 AM CDT) [facility] RBC morphology Consistent with RBC Indicies Comment:Testing performed by : [address] [address] Platelet estimate Decreased(A) SABRA Comment:Testing performed by : [facility], [address] [place] [address]., [address] Blood 09/30/2024 6:44 AM CDT 09/30/2024 6:47 AM CDT us Laurel Desir MD LAB BLOOD ORDERABLES Final Res ult Performing Organization Address City/[facility] Co de Phone Number SABRA [address] [place] [address] * eGFR (09/30/2024 6:44 AM CDT) eGFR [...] was last reviewed 2021. Testing performed by: [facility], [address] [place] [address]., [address] Blood 09/30/2024 6:44 AM CDT 09/30/2024 6:47 AM CDT us Laurel Desir MD LAB BLOOD ORDERABLES Final Res ult Performing Organization Address City/[facility]/ZIP Co de Phone Number SABRA [address] [place] [address] * (ABNORMAL) Differential, auto (09/30/2024 6:44 AM CDT) Neutrophil abs 0.02(C) 1.50 - 6.50 K/cumm Comment: Critical value called within last 72 hrs Testing performed by: [address] [address] Imm gran abs 0.00 0.00 - 0.10 K/cumm SABRA Comment:Testing performed by : [address], [place]., [address] Lymphocyte abs 0.36(L) 0.80 - 3.30 K/cumm SABRA Comment:Testing performed by : [address] [address] Monocyte abs 0.00(L) 0.20 - 0.80 K/cumm SABRA Comment:Testing performed by : [address] [address] Eosinophil abs 0.00 0.00 - 0.50 K/cumm SABRA Comment:Testing performed by : [address] [address] Basophil abs 0.00 0.00 - 0.10 K/cumm [facility] Comment:Testing performed by : [address] [address] Neutrophil pct 5.3 % SABRA Comment: Differential consistent with previous result. Differential consistent with previous result. Interpretive Data Percent cell count reference ranges are not reported, since discordance with absolute values may lead to misinterpretation of CBC data. Current Interpretive Data was last revised on 2017. Testing performed by: [address] [address] Imm gran pct 0.0 % SABRA Comment: Interpretive Data Percent cell count reference ranges are not reported, since discordance with absolute values may lead to misinterpretation of CBC data. Current Interpretive Data was last revised on 2017. Testing performed by: [address] [address] Lymphocyte pct 94.7 % SABRA Comment: Interpretive Data Percent cell count reference ranges are not reported, since discordance with absolute values may lead to misinterpretation of CBC data. Current Interpretive Data was last revised on 2017. Testing performed by: [address] [address] Monocyte pct 0.0 % SABRA Comment: Interpretive Data Percent cell count reference ranges are not reported, since discordance with absolute values may lead to misinterpretation of CBC data. Current Interpretive Data was last revised on 2017. Testing performed by: [address] [address] Eosinophil pct 0.0 % SABRA Comment: Interpretive Data Percent cell count reference ranges are not reported, since discordance with absolute values may lead to misinterpretation of CBC data. Current Interpretive Data was last revised on 2017. Testing performed by: [address] [address] Basophil pct 0.0 % SABRA Comment: Interpretive Data Percent cell count reference ranges are not reported, since discordance with absolute values may lead to misinterpretation of CBC data. Current Interpretive Data was last revised on 2017. Testing performed by: [address] [address] Blood 09/30/2024 6:44 AM CDT 09/30/2024 6:47 AM CDT us Laurel Desir MD LAB BLOOD ORDERABLES Final Res ult [facility] 65[address] [facility] Department [place] [address] * (ABNORMAL) CBC with auto differential (09/30/2024 6:44 AM CDT) WBC 0.38(C) 3.80 - 9.90 K/cumm Comment: Critical value called within last 72 hrs Testing performed by: [address] [address] Hgb 7.5(L) 11.9 - 15.5 g/dL SABRA Comment:Testing performed by : [address] [address] Hct 22.0(L) 35.6 - 45.5 % SABRA Comment:Testing performed by : [address] [address] Plt 49(C) 150 - 400 K/cumm SABRA Comment: Platelet count confirmed by additional testing. Critical platelet count threshold determined by patient location: Outpatient:<50 K/cumm , Inpatient adults:<20 K/cumm , Inpatient pediatric:<25 K/cumm, BMT service:<10 K/cumm Testing performed by: [address] [address] MPV 10.4 9.1 - 12.3 fL SABRA Comment:Testing performed by : [address], [address] RBC 2.39(L) 3.90 - 5.20 M/cumm SABRA Comment:Testing performed by : [address], [address] MCV 92.1 81.3 - 96.4 fL SABRA Comment:Testing performed by : [address] [address] MCH 31.4 27.1 - 33.3 pg SABRA Comment:Testing performed by : [address] [address] MCHC 34.1 32.3 - 35.7 g/dL SABRA Comment:Testing performed by : [address], [address] RDW CV 15.6(H) 11.1 - 14.9 % SABRA Comment:Testing performed by : [address] [address] RDW SD 51.9(H) 35.7 - 48.1 fL SABRA Comment:Testing performed by : [address] [address] NRBC abs 0.00 0.00 - 0.01 K/cumm SABRA Comment:Testing performed by : [address], [address] Blood 09/30/2024 6:44 AM CDT 09/30/2024 6:47 AM CDT us Laurel Desir MD LAB BLOOD ORDERABLES Edited Re eric - Final SABRA [address] [facility] Department [place] [address] * (ABNORMAL) Basic metabolic panel (09/30/2024 6:44 AM CDT) Sodium 139 135 - 145 mmol/L Comment:Testing performed by : [address] [address] Potassium, pl 3.7 3.3 - 4.9 mmol/L SABRA Comment:Testing performed by : [address] [address] Chloride 103 97 - 110 mmol/L SABRA Comment:Testing performed by : [address] [address] CO2 30 22 - 32 mmol/L SABRA Comment:Testing performed by : [address] [address] Anion gap 6 2 - 15 mmol/L SABRA Comment:Testing performed by : [address] [address] BUN 9 6 - 25 mg/dL SABRA Comment:Testing performed by : [address] [address] Creatinine 0.49(L) 0.60 - 1.10 mg/dL SABRA Comment:Testing performed by : [address] [address] Glucose 128 70 - 199 mg/dL SABRA [...] was last revised 2022. Testing performed by: [address] [address] Calcium 7.8(L) 8.5 - 10.3 mg/dL SABRA Comment:Testing performed by : [address] [address] Blood 09/30/2024 6:44 AM CDT 09/30/2024 6:47 AM CDT us Laurel Desir MD LAB BLOOD ORDERABLES Final Res ult Performing Organization Address [facility]/ZIP Co de Phone Number [facility] [address] [facility] [place] [address] * (ABNORMAL) Troponin T high-sensitivity 6-hour (09/29/2024 2:57 PM CDT) Trop T hs 62(H) <=14 ng/L Comment: Interpretive Data For further hscTnT resources including the diagnostic algorithm and an aid in interpretation, copy and paste this link: https://nrl.testcatalog.org/show/hsTrop Current Interpretive Data last revised 2020. Testing performed by: [address] [address] Trop T hs delta -2 ng/L SABRA PARKS Comment:Testing performed by : [address] [address] Trop T hs interp Insignificant SABRA PARKS Comment:Testing performed by : [address] [address] Blood 09/29/2024 2:57 PM CDT 09/29/2024 3:09 PM CDT us Lee Gordon DO LAB BLOOD ORDERABLES Final Resul t Performing Organization Address City/[facility]/ZIP Co de Phone Number [facility] [address] [facility] Department [employer] [place] [address] * (ABNORMAL) Troponin T high-sensitivity 4-hour (09/29/2024 12:38 PM CDT) Trop T hs 67(H) <=14 ng/L Comment: Interpretive Data For further hscTnT resources including the diagnostic algorithm and an aid in interpretation, copy and paste this link: [email or web address]/show/hsTrop Current Interpretive Data last revised 2020. Testing performed by: [address] [address] Trop T hs delta 3 ng/L SABRA PARKS Comment:Testing performed by : [address] [address] Trop T hs interp Insignificant SABRA Comment:Testing performed by : [address] [address] Blood 09/29/2024 12:3 8 PM CDT 09/29/2024 12:43 PM CDT Lee Gordon DO LAB BLOOD ORDERABLES Final Resul t SABRA 4072 [facility] Department [place] [address] * (ABNORMAL) Troponin T high-sensitivity 2-hour (09/29/2024 10:44 AM CDT) Trop T hs 65(H) <=14 ng/L Comment: Interpretive Data For further hscTnT resources including the diagnostic algorithm and an aid in interpretation, copy and paste this link: https://[email or web address]/show/hsTrop Current Interpretive Data last revised 2020. Testing performed by: [address] [address] Trop T hs delta 1 ng/L SABRA PARKS Comment:Testing performed by : [address] [address] Trop T hs interp Insignificant SABRA Comment:Testing performed by : [address] [address] Blood 09/29/2024 10:4 4 AM CDT 09/29/2024 10:59 AM CDT us Lee Gordon DO LAB BLOOD ORDERABLES Final Resul t Performing Organization Address [facility] Co de Phone Number SABRA [address] [place] [address] * (ABNORMAL) Troponin T high-sensitivity 6-hour (09/29/2024 8:11 AM CDT) [facility] Trop T hs 68(H) <=14 ng/L Comment: Interpretive Data For further hscTnT resources including the diagnostic algorithm and an aid in interpretation, copy and paste this link: https://nrl.testcatalog.org/show/hsTrop Current Interpretive Data last revised 2020. Testing performed by: [address] [address] Trop T hs delta See Comment ng/L SABRA Comment: Inappropriate collection time to report a delta. Testing performed by: [address] [address] Trop T hs pct delta See Comment % SABRA Comment: Inappropriate collection time to report a delta. Testing performed by: [address] [address] Trop T hs interp See Comment SABRA Comment: Inappropriate collection time to report a delta. Testing performed by: [address] [address] Blood 09/29/2024 8:11 AM CDT 09/29/2024 9:04 AM CDT us Philip Bran MD LAB BLOOD ORDERABLES Aylin l Result Performing Organization Address City/[facility]/ZIP Co de Phone Number [address] [place] [address] * (ABNORMAL) Troponin T high-sensitivity series (baseline, 2hr, 4hr, 6hr) (09/29/2024 8:11 AM CDT) [facility] Trop T hs 64(H) <=14 ng/L Comment: Interpretive Data For further hscTnT resources including the diagnostic algorithm and an aid in interpretation, copy and paste this link: https://nrl.testcatalog.org/show/hsTrop Current Interpretive Data last revised 2020. Testing performed by: [facility], [address] [place] [address]., [address] Blood 09/29/2024 8:11 AM CDT 09/29/2024 9:04 AM CDT us Lee Gordon DO LAB BLOOD ORDERABLES Final Resul t Performing Organization Address [facility] Co de Phone Number SABRA [address] [place] [address] * Blood smear review (09/29/2024 8:11 AM CDT) [facility] RBC morphology Consistent with RBC Indicies Comment:Testing performed by : [facility], [address] [place] [address]., [address] Platelet estimate Automated Count Confirmed [facility] Comment:Testing performed by : [facility], [address] [place] [address]., [address] Blood 09/29/2024 8:11 AM CDT 09/29/2024 9:04 AM CDT us Laurel Desir MD LAB BLOOD ORDERABLES Final Res ult Performing Organization Address [facility] Co de Phone Number SABRA [address] [place] [address] * eGFR (09/29/2024 8:11 AM CDT) [facility] eGFR >90 >=60 mL/min/1. 73 m2 Comment: [...] was last reviewed 2021. Testing performed by: [address] [address] Blood 09/29/2024 8:11 AM CDT 09/29/2024 9:04 AM CDT Lee Gordon DO LAB BLOOD ORDERABLES Final Resul t SABRA [address] [facility] Department [place] [address] * (ABNORMAL) Differential, auto (09/29/2024 8:11 AM CDT) Neutrophil abs 0.02(C) 1.50 - 6.50 K/cumm Comment: Critical value called within last 72 hrs Testing performed by: [address] [address] Imm gran abs 0.00 0.00 - 0.10 K/cumm SABRA Comment:Testing performed by : [address] [address] Lymphocyte abs 0.29(L) 0.80 - 3.30 K/cumm SABRA Comment:Testing performed by : [address] [address] Monocyte abs 0.00(L) 0.20 - 0.80 K/cumm SABRA Comment:Testing performed by : [address] [address] Eosinophil abs 0.00 0.00 - 0.50 K/cumm SABRA Comment:Testing performed by : [address] [address] Basophil abs 0.00 0.00 - 0.10 K/cumm SABRA Comment:Testing performed by : [address] [address] Neutrophil pct 6.5 % [facility] Comment: Differential consistent with previous result. Interpretive Data Percent cell count reference ranges are not reported, since discordance with absolute values may lead to misinterpretation of CBC data. Current Interpretive Data was last revised on 2017. Testing performed by: [address] [address] Imm gran pct 0.0 % [facility] Comment: Interpretive Data Percent cell count reference ranges are not reported, since discordance with absolute values may lead to misinterpretation of CBC data. Current Interpretive Data was last revised on 2017. Testing performed by: [address] [address] Lymphocyte pct 93.5 % [facility] Comment: Interpretive Data Percent cell count reference ranges are not reported, since discordance with absolute values may lead to misinterpretation of CBC data. Current Interpretive Data was last revised on 2017. Testing performed by: [address] [address] Monocyte pct 0.0 % [facility] Comment: Interpretive Data Percent cell count reference ranges are not reported, since discordance with absolute values may lead to misinterpretation of CBC data. Current Interpretive Data was last revised on 2017. Testing performed by: [address] [address] Eosinophil pct 0.0 % [facility] Comment: Interpretive Data Percent cell count reference ranges are not reported, since discordance with absolute values may lead to misinterpretation of CBC data. Current Interpretive Data was last revised on 2017. Testing performed by: [address] [address] Basophil pct 0.0 % [facility] Comment: Interpretive Data Percent cell count reference ranges are not reported, since discordance with absolute values may lead to misinterpretation of CBC data. Current Interpretive Data was last revised on 2017. Testing performed by: [address] [address] Blood 09/29/2024 8:11 AM CDT 09/29/2024 9:04 AM CDT us Laurel Desir MD LAB BLOOD ORDERABLES Final Res ult SABRA [facility] Department [place] [address] * (ABNORMAL) CBC with auto differential (09/29/2024 8:11 AM CDT) WBC 0.31(C) 3.80 - 9.90 K/cumm Comment: Critical value called within last 72 hrs Testing performed by: [address] [address] Hgb 7.5(L) 11.9 - 15.5 g/dL SABRA Comment:Testing performed by : [address] [address] Hct 21.6(L) 35.6 - 45.5 % SABRA Comment:Testing performed by : [address] [address] Plt 55(L) 150 - 400 K/cumm SABRA Comment:Testing performed by : [address] [address] MPV 10.8 9.1 - 12.3 fL SABRA Comment:Testing performed by : [address] [address] RBC 2.38(L) 3.90 - 5.20 M/cumm SABRA Comment:Testing performed by : [address] [address] MCV 90.8 81.3 - 96.4 fL SABRA Comment:Testing performed by : [address] [address] MCH 31.5 27.1 - 33.3 pg SABRA PARKS Comment:Testing performed by : [address] [address] MCHC 34.7 32.3 - 35.7 g/dL SABRA PARKS Comment:Testing performed by : [address] [address] RDW CV 15.5(H) 11.1 - 14.9 % SABRA PARKS Comment:Testing performed by : [address] [address] RDW SD 50.6(H) 35.7 - 48.1 fL SABRA PARKS Comment:Testing performed by : [address] [address] NRBC abs 0.00 0.00 - 0.01 K/cumm SABRA Comment:Testing performed by : [address], [address] Blood 09/29/2024 8:11 AM CDT 09/29/2024 9:04 AM CDT us Laurel Desir MD LAB BLOOD ORDERABLES Edited Re sult - Final Performing Organization Address [facility] de Phone Number [address] [employer] [place], [place] [id number] * Magnesium (09/29/2024 8:11 AM CDT) Pathologist [facility] Magnesium 2.0 1.4 - 2.5 mg/dL Comment:Testing performed by : [address], [address] Blood 09/29/2024 8:11 AM CDT 09/29/2024 9:04 AM CDT us Lee Gordon DO LAB BLOOD ORDERABLES Final Resul t Performing Organization Address [facility] de Phone Number [address] [employer] [place], [place] [id number] * (ABNORMAL) Basic metabolic panel (09/29/2024 8:11 AM CDT) Sodium 143 135 - 145 mmol/L Comment:Testing performed by : [address] [address] Potassium, pl 3.2(L) 3.3 - 4.9 mmol/L [facility] Comment:Testing performed by : [address] [address] Chloride 106 97 - 110 mmol/L [facility] Comment:Testing performed by : [address] [address] CO2 27 22 - 32 mmol/L SABRA Comment:Testing performed by : [address] [address] Anion gap 10 2 - 15 mmol/L [facility] Comment:Testing performed by : [address] [address] BUN 11 6 - 25 mg/dL [facility] Comment:Testing performed by : [address] [address] Creatinine 0.51(L) 0.60 - 1.10 mg/dL [facility] Comment:Testing performed by : [address] [address] Glucose 129 70 - 199 mg/dL [facility] Comment: Interpretive Data Fasting glucose >/= [...] was last revised 2022. Testing performed by: [address] [address] Calcium 7.1(L) 8.5 - 10.3 mg/dL [facility] Comment:Testing performed by : [address] [address] Blood 09/29/2024 8:11 AM CDT 09/29/2024 9:04 AM CDT Lee Gordon DO LAB BLOOD ORDERABLES Final Resul t Performing Organization Address [facility] Co de Phone Number [address] [place] [address] * Transfuse RBC (09/29/2024 6:17 AM CDT) Blood us Laurel Desir MD BLOOD TRANSFUSION ORDERABLES F inal Result Performing Organization Address [facility] de Phone Number [address] [employer] [place] [address] * (ABNORMAL) Troponin T high-sensitivity 4-hour (09/29/2024 5:24 AM CDT) Trop T hs 65(H) <=14 ng/L Comment: Interpretive Data For further hscTnT resources including the diagnostic algorithm and an aid in interpretation, copy and paste this link: https://nrl.testcatalog.org/show/hsTrop Current Interpretive Data last revised 2020. Testing performed by: [address] [address] Trop T hs delta 29(C) ng/L [facility] PARKS Comment: Critical Result called to and read back by [email or web address], DATE: 2024-09-29 06:12:26 BY: [email or web address] Testing performed by: [address] [address] Trop T hs interp Significa nt(C) SABRA PARKS Comment: Critical Result called to and read back by [email or web address], DATE: 2024-09-29 06:12:26 BY: [email or web address] Testing performed by: [address] [address] Blood 09/29/2024 5:24 AM CDT 09/29/2024 5:30 AM CDT us Philip Bran MD LAB BLOOD ORDERABLES Aylin l Result Performing Organization Address [facility] Co de Phone Number [address] [place] [address] * eGFR (09/29/2024 5:24 AM CDT) eGFR [...] was last reviewed 2021. Testing performed by: [address] [address] Blood 09/29/2024 5:24 AM CDT 09/29/2024 5:28 AM CDT us Laurel Desir MD LAB BLOOD ORDERABLES Final Res ult [facility] [address] [facility] Department [place] [address] * (ABNORMAL) Hepatic function panel (09/29/2024 5:24 AM CDT) [facility] Signature Bilirubin, total 1.3(H) 0.1 - 1.2 mg/dL Comment:Testing performed by : [address] [address] Bilirubin, direct 0.6(H) 0.1 - 0.3 mg/dL [facility] PARKS Comment:Testing performed by : [address] [address] Protein, pl 6.1(L) 6.5 - 8.5 g/dL SABRA Comment:Testing performed by : [address] [address] Albumin 3.5 3.5 - 5.0 g/dL [facility]RA Comment:Testing performed by : [address], [place]., [address] Alk phos 40 40 - 130 Units/L [facility]RA Comment:Testing performed by : [address] [address] ALT 31 7 - 45 Units/L [facility] Comment:Testing performed by : [address] [address] AST 22 10 - 45 Units/L [facility] Comment:Testing performed by : [address] [address] Blood 09/29/2024 5:24 AM CDT 09/29/2024 5:28 AM CDT us Jackie Williamson MD LAB BLOOD ORDERABLES F inal Result [place] [address] [facility] Department of Laboratories [place], [place] [id number] * (ABNORMAL) Basic metabolic panel (09/29/2024 5:24 AM CDT) Sodium 139 135 - 145 mmol/L Comment:Testing performed by : [address] [address] Potassium, pl 3.3 3.3 - 4.9 mmol/L SABRA Comment:Testing performed by : [address] [address] Chloride 103 97 - 110 mmol/L [facility] Comment:Testing performed by : [address] [address] CO2 28 22 - 32 mmol/L [facility] Comment:Testing performed by : [address], [place]., [address] Anion gap 8 2 - 15 mmol/L [facility] Comment:Testing performed by : [address] [address] BUN 12 6 - 25 mg/dL [facility] Comment:Testing performed by : [address] [address] Creatinine 0.56(L) 0.60 - 1.10 mg/dL [facility] Comment:Testing performed by : [address] [address] Glucose 140 70 - 199 mg/dL SABRA [...] was last revised 2022. Testing performed by: [address] [address] Calcium 7.3(L) 8.5 - 10.3 mg/dL [facility] Comment:Testing performed by : [address] [address] Blood 09/29/2024 5:24 AM CDT 09/29/2024 5:28 AM CDT us Laurel Desir MD LAB BLOOD ORDERABLES Final Res ult SABRA [address]367 [facility] Department [place] [address] * (ABNORMAL) Troponin T high-sensitivity 2-hour (09/29/2024 3:05 AM CDT) Trop T hs 73(H) <=14 ng/L Comment: Interpretive Data For further hscTnT resources including the diagnostic algorithm and an aid in interpretation, copy and paste this link: https://nrl.testcatalog.org/show/hsTrop Current Interpretive Data last revised 2020. Testing performed by: [facility], [address] [place] [address]., [address] Trop T hs delta 37(C) ng/L SABRA Comment: Critical Result called to and read back by [email or web address], DATE: 2024-09-29 03:55:56 BY: [email or web address] Testing performed by: [address] [address] Trop T hs interp Significa nt(C) SABRA PARKS Comment: Critical Result called to and read back by [email or web address], DATE: 2024-09-29 03:55:56 BY: [email or web address] Testing performed by: [address] [address] Blood 09/29/2024 3:05 AM CDT 09/29/2024 3:14 AM CDT Philip Bran MD LAB BLOOD ORDERABLES Aylin l Result Performing Organization Address [facility] Co de Phone Number [address] [employer] [place], [place] [id number] * (ABNORMAL) Troponin T high-sensitivity series (baseline, 2hr, 4hr, 6hr) (09/29/2024 1:09 AM CDT) Trop T hs 36(H) <=14 ng/L Comment: Interpretive Data For further hscTnT resources including the diagnostic algorithm and an aid in interpretation, copy and paste this link: https://nrl.testcatalog.org/show/hsTrop Current Interpretive Data last revised 2020. Testing performed by: [address] [address] Blood 09/29/2024 1:09 AM CDT 09/29/2024 1:28 AM CDT Philip Bran MD LAB BLOOD ORDERABLES Aylin l Result Performing Organization Address [facility]/ZIP Co de Phone Number AMY[address] Department [place] [address] * eGFR (09/29/2024 1:09 AM CDT) eGFR [...] was last reviewed 2021. Testing performed by: [address] [address] Blood 09/29/2024 1:09 AM CDT 09/29/2024 1:28 AM CDT us Philip Bran MD LAB BLOOD ORDERABLES Aylin l Result [facility] 9882 [facility] Department [place] [address] * (ABNORMAL) Differential, auto (09/29/2024 1:09 AM CDT) Neutrophil abs 0.02(C) 1.50 - 6.50 K/cumm Comment: Critical value called within last 72 hrs Testing performed by: [address] [address] Imm gran abs 0.00 0.00 - 0.10 K/cumm [facility] PARKS Comment:Testing performed by : [address] [address] Lymphocyte abs 0.26(L) 0.80 - 3.30 K/cumm [facility] Comment:Testing performed by : [address] [address] Monocyte abs 0.00(L) 0.20 - 0.80 K/cumm [facility] Comment:Testing performed by : [address] [address] Eosinophil abs 0.00 0.00 - 0.50 K/cumm [facility] Comment:Testing performed by : [address], [place]., [address] Basophil abs 0.00 0.00 - 0.10 K/cumm [facility] Comment:Testing performed by : [address] [address] Neutrophil pct 7.1 % [facility] Comment: Interpretive Data Percent cell count reference ranges are not reported, since discordance with absolute values may lead to misinterpretation of CBC data. Current Interpretive Data was last revised on 2017. Testing performed by: [address] [address] Imm gran pct 0.0 % [facility] Comment: Interpretive Data Percent cell count reference ranges are not reported, since discordance with absolute values may lead to misinterpretation of CBC data. Current Interpretive Data was last revised on 2017. Testing performed by: [address] [address] Lymphocyte pct 92.9 % [facility] Comment: Interpretive Data Percent cell count reference ranges are not reported, since discordance with absolute values may lead to misinterpretation of CBC data. Current Interpretive Data was last revised on 2017. Testing performed by: [address] [address] Monocyte pct 0.0 % [facility] Comment: Interpretive Data Percent cell count reference ranges are not reported, since discordance with absolute values may lead to misinterpretation of CBC data. Current Interpretive Data was last revised on 2017. Testing performed by: [address] [address] Eosinophil pct 0.0 % [facility] Comment: Interpretive Data Percent cell count reference ranges are not reported, since discordance with absolute values may lead to misinterpretation of CBC data. Current Interpretive Data was last revised on 2017. Testing performed by: [address] [address] Basophil pct 0.0 % [facility] PARKS Comment: Interpretive Data Percent cell count reference ranges are not reported, since discordance with absolute values may lead to misinterpretation of CBC data. Current Interpretive Data was last revised on 2017. Testing performed by: [address] [address] Blood 09/29/2024 1:09 AM CDT 09/29/2024 1:16 AM CDT us Laurel Desir MD LAB BLOOD ORDERABLES Final Res ult Performing Organization Address [facility] Co de Phone Number [address] [place] [address] * ABO / Rh Confirmation Testing (09/29/2024 1:09 AM CDT) Pathologist [facility] ABO/Rh Confirmation O Positive [facility] Comment:Testing performed by : [address] [address] Blood 09/29/2024 1:09 AM CDT 09/29/2024 1:16 AM CDT us Laurel Desir MD LAB BLOOD ORDERABLES Final Res ult Performing Organization Address City/[facility] Co de Phone Number [place] [address] [place] [address] [facility] * (ABNORMAL) Pro B-type natriuretic peptide [...] Last Revised Date: 2017. Testing performed by: [facility], [address] [place] [address]., [address] Blood 09/29/2024 1:09 AM CDT 09/29/2024 1:28 AM CDT us Philip Bran MD LAB BLOOD ORDERABLES Aylin freedman Result [facility] 6302 [facility] Department [place] [address] * (ABNORMAL) CBC with auto differential (09/29/2024 1:09 AM CDT) [facility] WBC 0.28(C) 3.80 - 9.90 K/cumm Comment: Critical value called within last 72 hrs Testing performed by: [address] [address] Hgb 5.7(C) 11.9 - 15.5 g/dL [facility]AB[facility] PARKS Comment: This result has been called to [id number] by [email or web address] on 09/29/2024 01:35:24, and has not been read back. Testing performed by: [address], [address] Hct 16.5(L) 35.6 - 45.5 % SABRA Comment:Testing performed by : [address] [address] Plt 62(L) 150 - 400 K/cumm [facility]RA Comment:Testing performed by : [address], [address] MPV 10.3 9.1 - 12.3 fL SABRA Comment:Testing performed by : [address], [address] RBC 1.77(L) 3.90 - 5.20 M/cumm SABRA Comment:Testing performed by : [address], [address] MCV 93.2 81.3 - 96.4 fL SABRA Comment:Testing performed by : [address], [address] MCH 32.2 27.1 - 33.3 pg [facility]ABRA Comment:Testing performed by : [address], [address] MCHC 34.5 32.3 - 35.7 g/dL [facility] Comment:Testing performed by : [address], [address] RDW CV 15.1(H) 11.1 - 14.9 % [facility]RA Comment:Testing performed by : [address], [address] RDW SD 50.9(H) 35.7 - 48.1 fL SABRA Comment:Testing performed by : [address], [address] NRBC abs 0.00 0.00 - 0.01 K/cumm SABRA Comment:Testing performed by : [address], [address] Morphologic Screen Results confirmed by manual morphology review. SABRA PARKS Comment:Testing performed by : [facility], [address] [place] [address], [place]., [address] Blood 09/29/2024 1:09 AM CDT 09/29/2024 1:16 AM CDT us Laurel Desir MD LAB BLOOD ORDERABLES Final Res ult SABRA PARKS [address]7 [facility] Department [place] [address] * Blood culture Blood (09/29/2024 1:09 AM CDT) Report Final Report: No growth Comment:Testing performed by : [facility], [address] [place] [address] Blood 09/29/2024 1:09 AM CDT 09/29/2024 5:34 [...] performance characteristics have been verified by the [facility] Microbiology Laboratory. For questions about this culture, contact the Microbiology Laboratory at [phone]. Interpretive data was last revised on 24. us Laurel Medavaram MD LAB MICROBIOLOGY - GENERAL ORD ERABLES Final Result Performing Organization Address City/[facility]/ZIP Co de Phone Number [address] [address] * Magnesium (09/29/2024 1:09 AM CDT) Pathologist [facility] Magnesium 2.0 1.4 - 2.5 mg/dL Comment:Testing performed by : [address] [address] Blood 09/29/2024 1:09 AM CDT 09/29/2024 1:28 AM CDT us Philip Bran MD LAB BLOOD ORDERABLES Aylin l Result Performing Organization Address City/[facility] Co de Phone Number [address] [address] * (ABNORMAL) Basic metabolic panel (09/29/2024 1:09 AM CDT) Pathologist [facility] Sodium 138 135 - 145 mmol/L Comment:Testing performed by : [address], [address] Potassium, pl 3.4 3.3 - 4.9 mmol/L [facility]RA Comment:Testing performed by : [address] [address] Chloride 103 97 - 110 mmol/L [facility] Comment:Testing performed by : [address] [address] CO2 25 22 - 32 mmol/L [facility] Comment:Testing performed by : [address] [address] Anion gap 10 2 - 15 mmol/L [facility] Comment:Testing performed by : [address], [address] BUN 13 6 - 25 mg/dL [facility] Comment:Testing performed by : [address] [address] Creatinine 0.58(L) 0.60 - 1.10 mg/dL [facility] Comment:Testing performed by : [address] [address] Glucose 178 70 - 199 mg/dL SABRA [...] was last revised 2022. Testing performed by: [address] [address] Calcium 7.5(L) 8.5 - 10.3 mg/dL [facility] Comment:Testing performed by : [address] [address] Blood 09/29/2024 1:09 AM CDT 09/29/2024 1:28 AM CDT us Philip Bran MD LAB BLOOD ORDERABLES Aylin freedman Result Performing Organization Address City/State/[facility] Co de Phone Number SABRA [address] [facility] Department [place] [address] * XR Chest 1 View (09/29/2024 12:41 [...] Lee Lee M.D. KT: KT Report ID: [id number] Reading Location: [place] [address] Procedure Note Lee Lee MD - 09/29/2024 [...] Lee Lee M.D. KT: KT Report ID: [id number] Reading Location: [place] [address] Laurel Desir MD IMG XR PROCEDURES Final Result * ECG 12 lead (09/29/2024 12:29 AM CDT) Ventricular Rate EKG/Min [address] [facility] Atrial Rate 101 BPM [facility] [place]-Interval (MSEC) 186 ms [facility] QRS-Interval (MSEC) 106 ms [facility] QT-Interval (MSEC) 342 ms [facility] QTc 443 ms [facility] P [place] [address] [facility] R [place] 25 degrees [facility] T [place] 71 degrees [facility] Diagnosis Sinus tachycardia Nonspecific ST abnormality Abnormal ECG No previous ECGs available Confirmed by HALEY EDWARDS M.D. ([id number]) on 09/29/2024 5:13:52 PM [facility] 09/29/2024 12:2 9 AM CDT 09/29/2024 5:13 PM CDT us Philip Bran MD ECG ORDERABLES Final Res ult Performing Organization Address [facility]/ZIP Co de Phone Number [facility] * ABO/Rh (09/29/2024 12:06 AM CDT) ABO/Rh O Positive Comment:Testing performed by : [facility], [address] [place] [address], [address] Blood 09/29/2024 12:0 6 AM CDT 09/29/2024 12:40 AM CDT Narrative [facility] - 09/29/2024 1:21 AM CDT Has the patient had Daratumumab or Isatuximab in the past 6 months?->Unknown us Laurel Desir MD LAB BLOOD BANK TEST ORDERABLES Final Result Performing Organization Address [facility] Co de Phone Number [address] [employer] [place] [address] * Crossmatch (09/29/2024 12:06 AM CDT) [facility] Crossmatch Compatible [facility] Unit number for crossmatch [id number] [facility] Crossmatch Compatible [facility] Unit number for crossmatch [id number] [facility] Blood 09/29/2024 12:0 6 AM CDT 09/29/2024 12:40 AM CDT us Philip Bran MD LAB BLOOD BANK TEST ORDER LAITH Edited Result - Final Performing Organization Address [facility] Co de Phone Number [address] [place] [address] * Antibody screen (09/29/2024 12:06 AM CDT) Rivera, indirect, Gel Interpretation Negative [facility] Comment:Testing performed by : [address] [address] Blood 09/29/2024 12:0 6 AM CDT 09/29/2024 12:40 AM CDT Narrative [facility]RA - 09/29/2024 1:21 AM CDT Has the patient had Daratumumab or Isatuximab in the past 6 months?->Unknown Laurel Desir MD LAB BLOOD BANK TEST ORDERABLES Final Result Performing Organization Address City/[facility] Co de Phone Number SABRA [facility] Department [place] [address] * Prepare RBC: 1 Units (09/28/2024 11:37 PM CDT) Units requested 1 Comment:Testing performed by : [address], [address] Units requested Ready SABRA Comment:Testing performed by : [address] [address] Unit Number [id number] Product code [id number] [facility] Blood Expiration Date [id number] [facility] Product Blood Type (for scanning) 5100 [facility] Product Blood Type OPOS [facility] Dispense Status DISPENSED [facility] Blood 09/28/2024 11:3 7 PM CDT 09/28/2024 11:37 PM CDT Laurel Desir MD BLOOD BANK PRODUCT ORDERABLES Final Result Performing Organization Address [facility]/State/[facility] Co de Phone Number SABRA [facility] Department [place] [address] * Urine culture Urine, clean voided (09/28/2024 11:20 PM CDT) Report Final Report: No growth Comment:Testing performed by : [facility], [address] [facility] [place]., [address] Urine, clean voided 09/28/2024 11:20 PM CDT 09/29/2024 2:26 AM CDT Narrative [facility] PARKS - 09/30/2024 7:05 AM CDT Indications for Culture:->Recent positive UA Testing performed by [facility] Microbiology Laboratory ([phone]) us Laurel Desir MD LAB MICROBIOLOGY - GENERAL ORD ERABLES Final Result SABRA [address] [facility] Department [place] [address] * (ABNORMAL) Differential, auto (09/28/2024 10:39 PM CDT) Neutrophil abs 0.02(C) 1.50 - 6.50 K/cumm Comment: This result has been called to [id number] by [id number] on 09/28/2024 23:03:50, and has been read back. Testing performed by: [address] [address] Imm gran abs 0.00 0.00 - 0.10 K/cumm SABRA Comment:Testing performed by : [address] [address] Lymphocyte abs 0.62(L) 0.80 - 3.30 K/cumm [facility]RA Comment:Testing performed by : [address] [address] Monocyte abs 0.01(L) 0.20 - 0.80 K/cumm [facility]RA Comment:Testing performed by : [address] [address] Eosinophil abs 0.00 0.00 - 0.50 K/cumm [facility] Comment:Testing performed by : [address] [address] Basophil abs 0.00 0.00 - 0.10 K/cumm [facility]RA Comment:Testing performed by : [address] [address] Neutrophil pct 3.1 % [facility] Comment: Interpretive Data Percent cell count reference ranges are not reported, since discordance with absolute values may lead to misinterpretation of CBC data. Current Interpretive Data was last revised on 2017. Testing performed by: [address] [address] Imm gran pct 0.0 % [facility] Comment: Interpretive Data Percent cell count reference ranges are not reported, since discordance with absolute values may lead to misinterpretation of CBC data. Current Interpretive Data was last revised on 2017. Testing performed by: [address] [address] Lymphocyte pct 95.4 % [facility] Comment: Interpretive Data Percent cell count reference ranges are not reported, since discordance with absolute values may lead to misinterpretation of CBC data. Current Interpretive Data was last revised on 2017. Testing performed by: [address] [address] Monocyte pct 1.5 % [facility] Comment: Interpretive Data Percent cell count reference ranges are not reported, since discordance with absolute values may lead to misinterpretation of CBC data. Current Interpretive Data was last revised on 2017. Testing performed by: [address] [address] Eosinophil pct 0.0 % [facility] Comment: Interpretive Data Percent cell count reference ranges are not reported, since discordance with absolute values may lead to misinterpretation of CBC data. Current Interpretive Data was last revised on 2017. Testing performed by: [address] [address] Basophil pct 0.0 % [facility] Comment: Interpretive Data Percent cell count reference ranges are not reported, since discordance with absolute values may lead to misinterpretation of CBC data. Current Interpretive Data was last revised on 2017. Testing performed by: [address] [address] Blood 09/28/2024 10:3 9 PM CDT 09/28/2024 10:49 PM CDT us Laurel Desir MD LAB BLOOD ORDERABLES Final Res ult SABRA [facility] Department [place] [address] * (ABNORMAL) CBC with auto differential (09/28/2024 10:39 PM CDT) [facility] Signature WBC 0.65(C) 3.80 - 9.90 K/cumm Comment: This result has been called to [id number] by [email or web address] on 09/28/2024 23:03:50, and has been read back. Testing performed by: [address] [address] Hgb 6.5(L) 11.9 - 15.5 g/dL SABRA Comment:Testing performed by : [address] [address] Hct 19.1(L) 35.6 - 45.5 % SABRA Comment:Testing performed by : [address] [address] Plt 68(L) 150 - 400 K/cumm SABRA Comment:Testing performed by : [address] [address] MPV 10.3 9.1 - 12.3 fL SABRA Comment:Testing performed by : [address] [address] RBC 2.06(L) 3.90 - 5.20 M/cumm SABRA Comment:Testing performed by : [address] [address] MCV 92.7 81.3 - 96.4 fL SABRA Comment:Testing performed by : [address] [address] MCH 31.6 27.1 - 33.3 pg SABRA Comment:Testing performed by : [address] [address] MCHC 34.0 32.3 - 35.7 g/dL SABRA Comment:Testing performed by : [address] [address] RDW CV 15.2(H) 11.1 - 14.9 % SABRA Comment:Testing performed by : [address] [place] [address] RDW SD 51.1(H) 35.7 - 48.1 fL [facility]ABRA PARKS Comment:Testing performed by : [address] [address] NRBC abs 0.00 0.00 - 0.01 K/cumm [facility] PARKS Comment:Testing performed by : [address] [address] Morphologic Screen Results confirmed by manual morphology review. SABRA Comment:Testing performed by : [address] [address] Blood 09/28/2024 10:3 9 PM CDT 09/28/2024 10:49 PM CDT us Laurel Desir MD LAB BLOOD ORDERABLES Final Res ult Performing Organization Address City/[facility] Phone Number SABRA [facility] Department of Laboratories [place], [place] [id number] * Transfuse RBC (09/23/2024 2:21 PM CDT) Blood Chalino Chapa MD BLOOD TRANSFUSION ORDERAB LES Final Result * Transfuse RBC (09/23/2024 12:13 PM CDT) Blood Chalino Chapa MD BLOOD TRANSFUSION ORDERAB LES Final Result * Prepare RBC (09/23/2024 9:50 AM CDT) Unit Number [id number] Product code [id number] [facility] ([place]) Blood Expiration Date [id number] [facility] ([place]) Product Blood Type (for scanning) 5100 [facility] ([place]) Product Blood Type OPOS [facility] ([place]) Dispense Status DISPENSED [facility] ([place]) us Chalino Chapa MD BLOOD BANK PRODUCT ORDERA BLES Final Result SABRA ROGERS ([place]) 1 [facility] [place] [address] * Prepare RBC (09/23/2024 9:49 AM CDT) Unit Number [id number] Product code [id number] [facility]ARA ROG[facility] ([place]) Blood Expiration Date [id number] S[facility]RA [facility] ([place]) Product Blood Type (for scanning) 5100 [facility] ([place]) Product Blood Type OPOS [facility]RA [facility]OG[facility] ([place]) Dispense Status DISPENSED S[facility]RA [facility]OG[facility] ([place]) us Chalino Chapa MD BLOOD BANK PRODUCT ORDERA BLES Final Result Performing Organization Address [facility]/ZIP Co de Phone Number SABRA ROGERS ([place]) [address] [place] [address] [place] [address] * Prepare RBC: 2 Units (09/23/2024 9:30 AM CDT) Units requested 2 Comment:Testing performed by : [place], [address] Units requested Ready EMMY ROGERS ([place]) Comment:Testing performed by : [place], [address] Blood 09/23/2024 9:30 AM CDT 09/23/2024 9:36 AM CDT Narrative SABRA ROGERS ([place]) - 09/23/2024 9:39 AM CDT Are special requirements needed? (All products are leukoreduced and CMV- safe)->No us Chalino Chapa MD BLOOD BANK PRODUCT ORDERA BLES Final Result S[facility]RA ROGERS ([place]) [address] [facility] [place] [address] * (ABNORMAL) Immature platelet fraction (09/23/2024 8:10 AM CDT) IPF 11.9(H) 1.6 - 10.1 % Comment:Testing performed by : [facility], [place], [address] Blood 09/23/2024 8:10 AM CDT 09/23/2024 8:40 AM CDT us Chalino Chapa MD LAB BLOOD ORDERABLES Aylin tano Result [facility] ([place]) [address] [place] [address] Department [place] [address] * (ABNORMAL) CBC with auto differential (09/23/2024 8:10 AM CDT) WBC 0.70(C) 3.80 - 9.90 K/cumm Comment: This result has been called to Lourdes Hudson RN IFS by [id number] on 09/23/2024 08:51:42, and has been read back. Testing performed by: [place], [address] Hgb 6.7(L) 11.9 - 15.5 g/dL [facility] ([place]) Comment:Testing performed by : [place], [address] Hct 20.2(L) 35.6 - 45.5 % [facility] ([place]) Comment:Testing performed by : [place], [address] Plt 21(C) 150 - 400 K/cumm [facility] ([place]) Comment: This result has been called to Lourdes Hudson RN IFS by [id number] on 09/23/2024 08:51:42, and has been read back. Testing performed by: [place], [address] MPV Not Measured 9.1 - 12.3 fL [facility] ([place]) Comment:Testing performed by : [place], [address] RBC 2.02(L) 3.90 - 5.20 M/cumm [facility] ([place]) Comment:Testing performed by : [place], [address] MCV 100.0(H) 81.3 - 96.4 fL [facility] ([place]) Comment:Testing performed by : [facility], [place], [address] MCH 33.2 27.1 - 33.3 pg [facility] ([place]) Comment:Testing performed by : [facility], [place], [address] MCHC 33.2 32.3 - 35.7 g/dL [facility] ([place]) Comment:Testing performed by : [facility], [place], [address] RDW CV 16.6(H) 11.1 - 14.9 % [facility] ([place]) Comment:Testing performed by : [facility], [place], [address] RDW SD 60.6(H) 35.7 - 48.1 fL [facility] ([place]) Comment:Testing performed by : [facility], [place], [address] NRBC abs 0.00 0.00 - 0.01 K/cumm [facility] ([place]) Comment:Testing performed by : [facility], [place], [address] Blood 09/23/2024 8:10 AM CDT 09/23/2024 8:40 AM CDT us Chalino Chapa MD LAB BLOOD ORDERABLES Aylin l Result SABRA ROGERS ([place]) 1 [facility] Department [place] [address] * ABO/Rh (09/23/2024 8:10 AM CDT) ABO/Rh O Positive Comment:Testing performed by : [place], [address] Blood 09/23/2024 8:10 AM CDT 09/23/2024 8:56 AM CDT Narrative [facility] ([place]) - 09/23/2024 9:36 AM CDT Has the patient had Daratumumab or Isatuximab in the past 6 months?->Unknown Witnessed by Yadi Gtz us Chalino Chapa MD LAB BLOOD BANK TEST ORDER LAITH Final Result SABRA ROGERS ([place]) 1 [facility] Department [place] [address] * (ABNORMAL) Manual Differential (09/23/2024 8:10 AM CDT) Differential Manual Comment:Testing performed by : [facility], [facility], [place], [address] Cells Counted 100 [facility] ([place]) Comment:Testing performed by : [place], [address] Neutrophil abs 0.09(C) 1.50 - 6.50 K/cumm [facility] ([place]) Comment: This result has been called to Yadi Gtz RN IFS by [id number] on 09/23/2024 09:25:52, and has been read back. Testing performed by: [facility], [place], [address] Lymphocyte abs 0.60(L) 0.80 - 3.30 K/cumm [facility] ([place]) Comment:Testing performed by : [place], [address] Eosinophil abs 0.01 0.00 - 0.50 K/cumm [facility] ([place]) Comment:Testing performed by : [place], [address] Neutrophil pct 12.0 % [facility] ([place]) Comment: Interpretive Data Percent cell count reference ranges are not reported, since discordance with absolute values may lead to misinterpretation of CBC data. Current Interpretive Data was last revised on 2017. Testing performed by: [place], [address] Lymphocyte pct 86.0 % [facility] ([place]) Comment: Interpretive Data Percent cell count reference ranges are not reported, since discordance with absolute values may lead to misinterpretation of CBC data. Current Interpretive Data was last revised on 2017. Testing performed by: [place], [address] Eosinophil pct 1.0 % EMELINA ROGERS ([place]) Comment: Interpretive Data Percent cell count reference ranges are not reported, since discordance with absolute values may lead to misinterpretation of CBC data. Current Interpretive Data was last revised on 2017. Testing performed by: [facility], [facility], [place], [address] Band Neutrophil pct 1.0 0.0 - 5.0 % [facility] ([place]) Comment:Testing performed by : [facility], [place], [address] RBC morphology Consistent with RBC Indicies [facility]RA [facility] ([place]) Comment:Testing performed by : [facility], [place], [address] Platelet estimate #CAC; #D CE JENNA ROGERS ([place]) Comment:Testing performed by : [facility], [place], [address] Blood 09/23/2024 8:10 AM CDT 09/23/2024 8:40 AM CDT Chalino Chapa MD LAB BLOOD ORDERABLES Aylin l Result [facility] ([place]) [address] [place] [address] Department [place] [address] * Crossmatch (09/23/2024 8:10 AM CDT) Crossmatch Compatible [facility] ([place]) Unit number for crossmatch [id number] [facility] ([place]) Crossmatch Compatible [facility] ([place]) Unit number for crossmatch [id number] [facility] ([place]) Blood 09/23/2024 8:1 0 AM CDT 09/23/2024 8:56 AM CDT Chalino Chapa MD LAB BLOOD BANK TEST ORDER LAITH Final Result Performing Organization Address City/[facility]/ZIP Co de Phone Number [facility] ([place]) 1 [facility] Department [place] [address] * Antibody screen (09/23/2024 8:10 AM CDT) Rivera, indirect, Gel Interpretation Negative ABSC Comment:Testing performed by : [facility], [facility], [place], [address] Blood 09/23/2024 8:10 AM CDT 09/23/2024 8:56 AM CDT Narrative SABRA SUE ([place]) - 09/23/2024 9:36 AM CDT Has the patient had Daratumumab or Isatuximab in the past 6 months?->Unknown us Chalino Chapa MD LAB BLOOD BANK TEST ORDER LAITH Final Result SABRA ROGERS ([place]) 1 [facility] [place] [address] * Transfuse RBC (09/16/2024 2:17 PM CDT) Blood us Chalino Chapa MD BLOOD TRANSFUSION ORDERAB LES Final Result * Transfuse RBC (09/16/2024 12:33 PM CDT) Blood us Chalino Chapa MD BLOOD TRANSFUSION ORDERAB LES Final Result * Prepare RBC (09/16/2024 10:33 AM CDT) Unit Number [id number] Product code [id number] [facility] ([place]) Blood Expiration Date [id number] [facility] ([place]) Product Blood Type (for scanning) 5100 [facility] ([place]) Product Blood Type OPOS [facility] ([place]) Dispense Status DISPENSED [facility] ([place]) us Chalino Chapa MD BLOOD BANK PRODUCT ORDERA BLES Final Result [facility] ([place]) 1 [facility] Department [place] [address] * Prepare RBC (09/16/2024 10:32 AM CDT) Unit Number [id number] Product code [id number] [facility] ([place]) Blood Expiration Date [facility] ([place]) Product Blood Type (for scanning) 5100 [facility] ([place]) Product Blood Type OPOS [facility] ([place]) Dispense Status DISPENSED [facility] ([place]) us Chalino Chapa MD BLOOD BANK PRODUCT ORDERA BLES Final Result Performing Organization Address [facility] Co de Phone Number [facility] ([place]) 1 [facility] [place] [address] * Prepare RBC: 2 Units (09/16/2024 10:25 AM CDT) Units requested 2 Comment:Testing performed by : [place], [address] Units requested Ready [facility] ([place]) Comment:Testing performed by : [place], [address] Blood 09/16/2024 10:2 5 AM CDT 09/16/2024 10:25 AM CDT Narrative SABRA ROGERS ([place]) - 09/16/2024 10:26 AM CDT Are special requirements needed? (All products are leukoreduced and CMV- safe)->No us Chalino Chapa MD BLOOD BANK PRODUCT ORDERA BLES Final Result [facility] ([place]) 1 [facility] [place] [address] * Crossmatch (09/16/2024 10:12 AM CDT) Crossmatch Compatible CERNER A ([place]) Unit number for crossmatch [id number] [facility] ([place]) Crossmatch Compatible [facility] ([place]) Unit number for crossmatch [id number] [facility] ([place]) Blood 09/16/2024 10:1 2 AM CDT 09/16/2024 10:12 AM CDT us Chalino Chapa MD LAB BLOOD BANK TEST ORDER LAITH Final Result Performing Organization Address [facility] Co de Phone Number SABRA ROGERS ([place]) 1 [facility] Department [place] [address] * eGFR (09/16/2024 9:05 AM CDT) eGFR [...] was last reviewed 2021. Testing performed by: [facility], [facility], [place], [address] Blood 09/16/2024 9:05 AM CDT 09/16/2024 9:20 AM CDT us Zoraida Villegas NP LAB BLOOD ORDERABLES Final Result Performing Organization Address City/[facility]/ZIP Co de Phone Number [facility]RA R[facility] ([place]) 1 [facility] Department [place] [address] * (ABNORMAL) CBC with auto differential (09/16/2024 9:05 AM CDT) WBC 1.83(L) 3.80 - 9.90 K/cumm Comment:Testing performed by : [place], Hgb 6.3(C) 11.9 - 15.5 g/dL [facility] ([place]) Comment: This result has been called to Ynes Ojeda RN IFS by [id number] on 09/16/2024 10:07:36, and has been read back. Testing performed by: [facility], [place], Hct 19.1(L) 35.6 - 45.5 % [facility] ([place]) Comment:Testing performed by : [place], [place], Plt 144(L) 150 - 400 K/cumm [facility] ([place]) Comment:Testing performed by : [place], MPV 11.7 9.1 - 12.3 fL [facility] ([place]) Comment:Testing performed by : [place], RBC 1.72(L) 3.90 - 5.20 M/cumm [facility] ([place]) Comment:Testing performed by : [place], MCV 111.0(H) 81.3 - 96.4 fL [facility] ([place]) Comment:Testing performed by : [place], MCH 36.6(H) 27.1 - 33.3 pg [facility] ([place]) Comment:Testing performed by : [place], MCHC 33.0 32.3 - 35.7 g/dL [facility] ([place]) Comment:Testing performed by : [place], RDW CV 16.4(H) 11.1 - 14.9 % [facility] ([place]) Comment:Testing performed by : [place], RDW SD 65.4(H) 35.7 - 48.1 fL [facility] ([place]) Comment:Testing performed by : [facility], [facility], [place], [address] NRBC abs 0.00 0.00 - 0.01 K/cumm [facility]RA [facility] ([place]) Comment:Testing performed by : [facility], [place], [address] Blood 09/16/2024 9:05 AM CDT 09/16/2024 9:27 AM CDT us Chalino Chapa MD LAB BLOOD ORDERABLES Aylin l Result Performing Organization Address [facility]/ZIP Co de Phone Number SABRA ROGERS ([place]) [address] [place] [address] Department [place] [address] * ABO/Rh (09/16/2024 9:05 AM CDT) ABO/Rh O Positive Comment:Testing performed by : [place], [address] Blood 09/16/2024 9:05 AM CDT 09/16/2024 9:19 AM CDT Narrative S[facility]RA ROG[facility] ([place]) - 09/16/2024 10:10 AM CDT Has the patient had Daratumumab or Isatuximab in the past 6 months?->Unknown us Milla Armenta NP LAB BLOOD BANK TEST ORDERA BLES Final Result Performing Organization Address [facility] Co de Phone Number S[facility]RA ROGERS ([place]) [address] [place] [address] Department [place] [address] * (ABNORMAL) Manual Differential (09/16/2024 9:05 AM CDT) Differential Manual Comment:Testing performed by : [place], [address] Cells Counted 100 [facility] ([place]) Comment:Testing performed by : [facility], [place], [address] Neutrophil abs 1.08(L) 1.50 - 6.50 K/cumm S[facility]RA [facility] ([place]) Comment:Testing performed by : [facility] [address], [place], [address] Lymphocyte abs 0.64(L) 0.80 - 3.30 K/cumm [facility] ([place]) Comment:Testing performed by : [facility], [facility], [place], [address] Monocyte abs 0.04(L) 0.20 - 0.80 K/cumm [facility] ([place]) Comment:Testing performed by : [facility], [facility], [place], [address] Eosinophil abs 0.07 0.00 - 0.50 K/cumm [facility] ([place]) Comment:Testing performed by : [facility], [facility], [place], [address] Neutrophil pct 57.0 % [facility] ([place]) Comment: Interpretive Data Percent cell count reference ranges are not reported, since discordance with absolute values may lead to misinterpretation of CBC data. Current Interpretive Data was last revised on 2017. Testing performed by: [place], [address] Lymphocyte pct 35.0 % [facility] ([place]) Comment: Interpretive Data Percent cell count reference ranges are not reported, since discordance with absolute values may lead to misinterpretation of CBC data. Current Interpretive Data was last revised on 2017. Testing performed by: [facility], [place], [address] Monocyte pct 2.0 % [facility] ([place]) Comment: Interpretive Data Percent cell count reference ranges are not reported, since discordance with absolute values may lead to misinterpretation of CBC data. Current Interpretive Data was last revised on 2017. Testing performed by: [facility], [place], [address] Eosinophil pct 4.0 % [facility] ([place]) Comment: Interpretive Data Percent cell count reference ranges are not reported, since discordance with absolute values may lead to misinterpretation of CBC data. Current Interpretive Data was last revised on 2017. Testing performed by: [facility], [place], [address] Band Neutrophil pct 2.0 0.0 - 5.0 % [facility] ([place]) Comment:Testing performed by : [facility], [place], [address] RBC morphology Consistent with RBC Indicies [facility] ([place]) Comment:Testing performed by : [facility], [facility], [place], [address] Anisocytosis Slight(A) [facility] ([place]) Comment:Testing performed by : [facility], [facility], [place], [address] Macrocytes 3-7/HPF(A) SABRA Silva ([place]) Comment:Testing performed by : [facility], [facility], [place], [address] Elliptocytes 3-7/HPF(A) [facility] ([place]) Comment:Testing performed by : [facility], [facility], [place], [address] Platelet estimate Automated Count Confirmed [facility] ([place]) Comment:Testing performed by : [facility], [facility], [place], [address] Blood 09/16/2024 9:05 AM CDT 09/16/2024 9:27 AM CDT us Chalino Chapa MD LAB BLOOD ORDERABLES Aylin l Result [facility] ([place]) 1 [facility] Department [place] [address] * Antibody screen (09/16/2024 9:05 AM CDT) Rivera, indirect, Gel Interpretation Negative ABSC Comment:Testing performed by : [facility], [facility], [place], [address] Blood 09/16/2024 9:05 AM CDT 09/16/2024 9:19 AM CDT Narrative SABRA ROGERS ([place]) - 09/16/2024 10:10 AM CDT Has the patient had Daratumumab or Isatuximab in the past 6 months?->Unknown us Milla Armenta NP LAB BLOOD BANK TEST ORDERA BLES Final Result [facility] ([place]) 1 [facility] Department [place] [address] * (ABNORMAL) Comprehensive metabolic panel (09/16/2024 9:05 AM CDT) Sodium 137 135 - 145 mmol/L Comment:Testing performed by : [facility], [place], [address] Potassium, pl 4.5 3.3 - 4.9 mmol/L [facility] ([place]) Comment:Testing performed by : [facility], [place], [address] Chloride 101 97 - 110 mmol/L [facility] ([place]) Comment:Testing performed by : [facility], [facility], [place], [address] CO2 26 22 - 32 mmol/L [facility] ([place]) Comment:Testing performed by : [facility], [place], [address] Anion gap 10 2 - 15 mmol/L [facility] ([place]) Comment:Testing performed by : [facility], [place], [address] BUN 22 6 - 25 mg/dL [facility] ([place]) Comment:Testing performed by : [facility], [facility], [place], [address] Creatinine 0.54(L) 0.60 - 1.10 mg/dL [facility] ([place]) Comment:Testing performed by : [facility], [place], [address] Glucose 143 70 - 199 mg/dL [facility] ([place]) Comment: Interpretive Data Fasting glucose >/= 126 [...] was last revised 2022. Testing performed by: [facility], [place], [address] Calcium 8.5 8.5 - 10.3 mg/dL [facility] ([place]) Comment:Testing performed by : [place], [address] Bilirubin, total 0.8 0.1 - 1.2 mg/dL [facility] ([place]) Comment:Testing performed by : [place], [address] Protein, pl 6.3(L) 6.5 - 8.5 g/dL [facility] ([place]) Comment:Testing performed by : [facility], [place], [address] Albumin 4.2 3.5 - 5.0 g/dL [facility] ([place]) Comment:Testing performed by : [facility], [place], [address] Alk phos 66 40 - 130 Units/L [facility] ([place]) Comment:Testing performed by : [facility], [place], [address] ALT 59(H) 7 - 45 Units/L [facility] ([place]) Comment:Testing performed by : [facility], [place], [address] AST 31 10 - 45 Units/L [facility] ([place]) Comment:Testing performed by : [facility], [place], [address] Blood 09/16/2024 9:05 AM CDT 09/16/2024 9:20 AM CDT Zoraida Villegas TIMBER SURVEYOR LAB BLOOD ORDERABLES Final Result [facility] ([place]) [address] [place] [address] Department [place] [address] * eGFR (09/09/2024 9:00 AM CDT) eGFR [...] was last reviewed 2021. Testing performed by: [place], [address] Blood 09/09/2024 9:00 AM CDT 09/09/2024 9:11 AM CDT us Chalino Chapa MD LAB BLOOD ORDERABLES Aylin freedman Result [facility] ([place]) 1 [facility] Department [place] [address] * (ABNORMAL) Differential, auto (09/09/2024 9:00 AM CDT) Neutrophil abs 1.38(L) 1.50 - 6.50 K/cumm Comment:Testing performed by : [place], [address] Imm gran abs 0.01 0.00 - 0.10 K/cumm [facility] ([place]) Comment:Testing performed by : [place], [address] Lymphocyte abs 0.70(L) 0.80 - 3.30 K/cumm [facility] ([place]) Comment:Testing performed by : [place], [address] Monocyte abs 0.21 0.20 - 0.80 K/cumm [facility] ([place]) Comment:Testing performed by : [place], [address] Eosinophil abs 0.04 0.00 - 0.50 K/cumm [facility] ([place]) Comment:Testing performed by : [place], [address] Basophil abs 0.02 0.00 - 0.10 K/cumm [facility] ([place]) Comment:Testing performed by : [facility], [facility], [place], [address] Neutrophil pct 58.5 % [facility] ([place]) Comment: Interpretive Data Percent cell count reference ranges are not reported, since discordance with absolute values may lead to misinterpretation of CBC data. Current Interpretive Data was last revised on 2017. Testing performed by: [place], [address] Imm gran pct 0.4 % [facility] ([place]) Comment: Interpretive Data Percent cell count reference ranges are not reported, since discordance with absolute values may lead to misinterpretation of CBC data. Current Interpretive Data was last revised on 2017. Testing performed by: [place], [address] Lymphocyte pct 29.7 % [facility] ([place]) Comment: Interpretive Data Percent cell count reference ranges are not reported, since discordance with absolute values may lead to misinterpretation of CBC data. Current Interpretive Data was last revised on 2017. Testing performed by: [facility], [place], [address] Monocyte pct 8.9 % [facility] ([place]) Comment: Interpretive Data Percent cell count reference ranges are not reported, since discordance with absolute values may lead to misinterpretation of CBC data. Current Interpretive Data was last revised on 2017. Testing performed by: [facility], [place], [address] Eosinophil pct 1.7 % [facility] ([place]) Comment: Interpretive Data Percent cell count reference ranges are not reported, since discordance with absolute values may lead to misinterpretation of CBC data. Current Interpretive Data was last revised on 2017. Testing performed by: [place], [address] Basophil pct 0.8 % [facility] ([place]) Comment: Interpretive Data Percent cell count reference ranges are not reported, since discordance with absolute values may lead to misinterpretation of CBC data. Current Interpretive Data was last revised on 2017. Testing performed by: [facility], [place], [address] Blood 09/09/2024 9:00 AM CDT 09/09/2024 9:21 AM CDT us Chalino Chapa MD LAB BLOOD ORDERABLES Aylin tano Result [facility] ([place]) [address] [place] [address] Department [place] [address] * (ABNORMAL) CBC with auto differential (09/09/2024 9:00 AM CDT) WBC 2.36(L) 3.80 - 9.90 K/cumm Comment:Testing performed by : [place], [address] Hgb 8.1(L) 11.9 - 15.5 g/dL [facility] ([place]) Comment:Testing performed by : [place], [address] Hct 24.8(L) 35.6 - 45.5 % [facility] ([place]) Comment:Testing performed by : [place], [address] Plt 180 150 - 400 K/cumm [facility] ([place]) Comment:Testing performed by : [place], [address] MPV 11.4 9.1 - 12.3 fL [facility] ([place]) Comment:Testing performed by : [place], [address] RBC 2.25(L) 3.90 - 5.20 M/cumm [facility] ([place]) Comment:Testing performed by : [place], [address] MCV 110.2(H) 81.3 - 96.4 fL [facility] ([place]) Comment:Testing performed by : [place], [address] MCH 36.0(H) 27.1 - 33.3 pg [facility] ([place]) Comment:Testing performed by : [place], [address] MCHC 32.7 32.3 - 35.7 g/dL [facility] ([place]) Comment:Testing performed by : [facility] [facility], [place], [address] RDW CV 17.0(H) 11.1 - 14.9 % [facility] ([place]) Comment:Testing performed by : [facility], [place], [address] RDW SD 67.0(H) 35.7 - 48.1 fL [facility] ([place]) Comment:Testing performed by : [facility], [place], [address] NRBC abs 0.00 0.00 - 0.01 K/cumm [facility] ([place]) Comment:Testing performed by : [facility], [place], [address] Blood 09/09/2024 9:00 AM CDT 09/09/2024 9:21 AM CDT Chalino Chapa MD LAB BLOOD ORDERABLES Aylin freedman Result [facility] ([place]) [address] [place] [address] Department [place] [address] * (ABNORMAL) Comprehensive metabolic panel (09/09/2024 9:00 AM CDT) Sodium 141 135 - 145 mmol/L Comment:Testing performed by : [facility], [place], [address] Potassium, pl 4.0 3.3 - 4.9 mmol/L [facility] ([place]) Comment:Testing performed by : [facility], [place], [address] Chloride 103 97 - 110 mmol/L [facility] ([place]) Comment:Testing performed by : [facility], [place], [address] CO2 27 22 - 32 mmol/L [facility] ([place]) Comment:Testing performed by : [facility], [place], [address] Anion gap 11 2 - 15 mmol/L [facility] ([place] Comment:Testing performed by : [facility], [place], [address] BUN 13 6 - 25 mg/dL [facility] ([place]) Comment:Testing performed by : [place], [address] Creatinine 0.56(L) 0.60 - 1.10 mg/dL [facility] ([place]) Comment:Testing performed by : [place], [address] Glucose 185 70 - 199 mg/dL [facility] [...] was last revised 2022. Testing performed by: [place], [address] Calcium 8.3(L) 8.5 - 10.3 mg/dL [facility] ([place]) Comment:Testing performed by : [facility], [place], [address] Bilirubin, total 0.9 0.1 - 1.2 mg/dL [facility] ([place]) Comment:Testing performed by : [place], [address] Protein, pl 6.4(L) 6.5 - 8.5 g/dL [facility] ([place]) Comment:Testing performed by : [facility], [place], [address] Albumin 4.1 3.5 - 5.0 g/dL [facility] ([place]) Comment:Testing performed by : [facility], [place], [address] Alk phos 67 40 - 130 Units/L [facility] ([place]) Comment:Testing performed by : [place], [address] ALT 44 7 - 45 Units/L [facility] ([place]) Comment:Testing performed by : [facility], [place], [address] AST 19 10 - 45 Units/L [facility] ([place]) Comment:Testing performed by : [facility], [place], [address] Blood 09/09/2024 9:00 AM CDT 09/09/2024 9:11 AM CDT us Chalino Chapa MD LAB BLOOD ORDERABLES Aylin freedman Result [facility] ([place]) [address] [facility] Department [place] [address] from Last 3 Months Insurance MEDICARE MEDICARE [facility] MEDICARE SUPPLEMENT MEDICARE [facility] MEDICARE SUPPLEMENT Advance Directives For more information, please contact: [phone] Documents on File Type Date Recorded 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 ADVANCE DIRECTIVE 12/20/2023 8:01 AM Power of Medical Biller/Coder-Medical * Full Code (Latest Code Status on File) Date Activated Date Inactivated Comments 09/28/2024 7:50 PM 10/07/2024 7:51 PM * Full Code Date Activated Date Inactivated Comments 12/11/2023 12:19 PM 12/19/2023 6:45 PM Care Teams [employer] Relationship Specialty Start Date End Date Bryan Davey DO PCP - General Internal Medicine 11/14/23 Prateek King MD Susan S [address]EN[address] [place] [address] Consulting Physician Urology 10/07/24 Sherman Alvarez DO [address] [place] [address] Medical Oncologist/Java Lead Developer Hematology and Oncology 10/07/24
--- OUTSIDE RECORDS SUMMARY | 2024-12-09 11:11 | XMS_ITS | Clinical Summary ---
Author Organization [facility] Address [address] [place] [address] Care Team Providers Care Commercial Loan Administrator Name Role Phone Unavailable Primary Care Provider [...] 04/03/2016 Insurance MEDICARE PART A AND B [facility]
--- OUTSIDE RECORDS SUMMARY | 2024-12-09 11:12 | XMS_ITS ---
Author Organization [facility] Address [address] [place] [address] Care Team Providers Care Customer Service Attendant Name Role Phone Bryan Davey DO Primary Care Provider [phone] Prateek King MD Unavailable Sherman Alvarez DO Unavailable [phone] Active Problems Problem Noted Date Diagnosed Date [...] and/or Platelet Administration for Outpatient* Plan Start Date:11/28/2024 Plan Provider:Chalino Chapa MD Linked Problems Anemia in neoplastic disease MDS (myelodysplastic syndrome) (HCC) Treatment Medications No medications scheduled. Decitabine (D1-5) 28 Day Cycles - AML or MDS* Plan Start Date:11/26/2023 Plan Provider:Chalino Chapa MD Linked Problems MDS (myelodysplastic syndrom e) ([facility]) Treatment Medications Current Day (Day 1 , [...] - Blood and/or Platelet Administration for Outpatient 12/03/2024 11/28/2024 No medications scheduled. Therapy Complete Chalino Chapa MD Adult Non-ONC - Blood and/or Platelet Administration for Outpatient 11/14/2024 11/14/2024 No medications scheduled. Therapy Complete Chalino Chapa [...] (06/06/2018): Added automatically from request for surgery [id number]
--- OUTSIDE RECORDS SUMMARY | 2024-12-09 11:12 | XMS_ITS | Clinical Summary ---
Author Organization [facility] Address [address] [place] [address] Care Team Providers Care Erection Shop Supervisor Name Role Phone Mervat Kelley GERA-CERTIFIED NURSING ATTENDANT Primary Care Provider + Source Comments [facility],non-owned Affiliates and Associated Physician Practices is amultiple site organization consisting of ambulatory clinics and hospital sitesin [place], [place], [place] and [place]. This disclosure is being madepursuant to the Care Everywhere program and may not contain all information available regarding this patient. Last updated 17.[facility] Allergies Active Allergy Reactions Criticality Noted Date [...] daily Active fish oil/omega-3 fatty acids (Promega;Cardi -Krypton 3) 1000 MG capsule Take 2 (two) [...] 71.7 kg (158 lb) 04/06/2022 10:56 AM PINION SORTER Height 152.4 cm (5') 12/22/2021 12:39 PM CDT Body Mass Index 30.86 12/22/2021 12:39 PM CDT Plan of Treatment Health Maintenance Due Date Last Done Comments BONE DENSITY TESTING 1940 MEDICARE AWV 12 MONTHS 1940 Respiratory Syncytial Virus (RSV) Vaccine Pt: or over 60 yrs (1 - 1-dose 75+ series) 02/09/2016 DEPRESSION SCREENING 04/03/2024 COVID-19 VACCINE ( season) 2024 01/23/2022, 09/24/2021, 02/01/2021, Additional history exists INFLUENZA VACCINE (#1) 2024 , 01/15/2021, 01/13/2020, [...] age to complete this topic Insurance [facility] Advance Directives * Full Code (Latest Code Status on File) Date Activated Date Inactivated Comments 09/29/2021 4:59 AM 09/30/2021 2:57 PM Care Teams Erection Shop Supervisor Relationship Specialty Start Date End Date Mervat Kelley APRN-CNP [address] [address] PCP - General 11/24/21
--- OUTSIDE RECORDS SUMMARY | 2024-12-09 11:12 | XMS_ITS | Encounter Summary ---
Author Organization [facility] Address [facility] [facility] [address] Care Team Providers Care Clinical Scientist Name Role Phone Andie Ang MD Primary Care Provider + [phone] Mervat Kelley Primary Care Provider + Andie Ang MD Primary Care Provider + [phone] Mervat Kelley Primary Care Provider + Andie Ang MD Primary Care Provider + [phone] Mervat Kelley Primary Care Provider + Encounter Details Date Type Department Care Team (Late st Contact Info) Description 11/15/2018 Lab Requisition [facility] Care DermPath Lab [address] [place] [address] Sarath De Guzman MD [address] [place] [address] Social History Tobacco Use Types Packs/Day Years [...] AM CDT) Case Report Dermatopathology Report Case: [id number] Authorizing Provider: Sarath De Guzman MD Collected: 11/14/2018 12:00 AM Ordering Location: [facility] DermPath Lab Received: 11/15/2018 12:29 PM Pathologist: [...] specimen consists of a shave biopsy measuring [id number]. Jar 0. 12:59 PM CDT DERMATOPATHOLOGY LABORATORY [...] determined by the Dermatopathology Laboratory at [facility], directed by Dr. Frederick Schofield. These tests need not be, and therefore are not, approved by the [place] Food and Drug Administration. The tests are used for clinical purposes. Billing Codes Specimen Charges Stain Charges 65397 1 12:59 PM CDT DERMATOPATHOLOGY LABORATORY Embedded Images 12:59 PM CDT DERMATOPATHOLOGY LABORATORY Pathology/Cytolog y TISSUE SPECIMEN FROM SKIN / Unknown 11/14/2018 11/15/2018 12:29 PM CDT Sarath De Guzman MD LAB - PATHOLOGY/CYTOLOGY ORD ERABLES Final Result DERMATOPATHOLOGY LABORATORY [facility] - Department of Dermatology [address], 5th [place] [address], [facility] [phone] documented in this encounter Visit Diagnoses Not on filedocumented in this encounter Care Teams Clinical Scientist Relationship Specialty Start Date End Date Andie Ang MD [address] [phone] PCP - General 08/18/17 09/29/21 Mervat Kelley APRN-SPORTS TEACHER [address] [place] [phone] PCP - General Nurse Practitioner 09/30/21 09/30/21 Andie Ang MD [address] [phone] PCP - General 10/01/21 10/12/21 Mervat Kelley APRN-SPORTS TEACHER [address] [address] PCP - General 10/13/21 10/31/21 Andie Ang MD [address] [address] PCP - General 11/01/21 11/23/21 Mervat Kelley APRN-SPORTS TEACHER [address] [address] PCP - General 11/24/21 documented as of this encounter
--- OUTSIDE RECORDS SUMMARY | 2024-12-09 11:12 | XMS_ITS | Encounter Summary ---
Author Organization [facility] Address [address] [facility] [place] [address] Care Team Providers Care Nitrogen Operator Name Role Phone Mervat Kelley FIRE SERVICES PLUMBER-VC++ DEVELOPER Primary Care Provider + Encounter Details Date Type Department Care Team (Late st Contact Info) Description 10/05/2022 Lab Requisition [facility] - Pathology Lab [address] [place] [address] Jesus Louis MD [address] [address] Anemia, unspecified Social History Tobacco [...] AM CDT) Case Report Flow Cytometry Case: [id number] Authorizing Provider: Jesus Louis MD Collected: 10/05/2022 09:15 AM Ordering Location: [facility] Pathology Lab Received: 10/05/2022 02:15 PM Pathologist: Linda Hauser MD Specimen: Bone Marrow 10/05/2022 4:45 PM CDT U PATHOLOGY LAB Final Diagnosis Bone marrow, flow cytometric immunophenotypic analysis: - No evidence of non-Hodgkin lymphoma or high-grade myeloid neoplasm. - See interpretation. 10/05/2022 4:45 PM CDT [facility] PATHOLOGY LAB at 1644 CDT [...] the flow cytometry specimen is reviewed for senior data quality analyst purposes. The bone marrow specimen shows [...] ID # [id number] 10/05/2022 4:45 PM CDT [facility] PATHOLOGY LAB Number of markers 10 were performed. A-2 Flow CD10 A-3 Flow CD13 A-5 Flow CD20 A-1 Flow CD5 A-4 Flow CD19 A-6 Flow CD33 A-7 Flow CD34 A-8 Flow CD45 A-9 Knik-[place]+CD19+ A-10 Lambda+CD19+ 10/05/2022 4:45 PM CDT U PATHOLOGY LAB Pathologist Location at [facility] 10/05/2022 4:45 PM CDT U PATHOLOGY LAB Disclaimer Test performed at [facility], [address] [place], [place], [address]. *The established laboratory minimum viability is 70%. [...] PATHOLOGY LAB Embedded Images 4:45 PM CDT [facility] PATHOLOGY LAB Pathology/Cytolo gy BONE MARROW SPECIMEN / Unknown 10/05/2022 9:15 AM CDT 10/05/2022 2:15 PM CDT Jesus Louis MD LAB - PATHOLOGY/CYTOLOGY ORDERAB LES Final Result Performing Organization Address City/State/[facility] Co de Phone Number [facility] PATHOLOGY LAB [address] [place] [address]. [address] [phone] documented in this encounter Visit Diagnoses Diagnosis Anemia, unspecified documented in this encounter Care Teams Nitrogen Operator Relationship Specialty Start Date End Date Mervat Kelley APRN-CNP [address] [address] PCP - General 11/24/21 documented as of this encounter
--- OUTSIDE RECORDS SUMMARY | 2024-12-09 11:12 | XMS_ITS | Clinical Summary ---
Author Organization [facility] Address [address], [address] [address] Phone Care Team Providers Care Assistant Professor Of Communication Name Role Phone ReinaldotravonMervat APRN Primary Care Provider [phone] Medications polyethylene glycol (MIRALAX) Powder Use entire [...] age to complete this topic Insurance MEDICARE [facility] Care Teams Assistant Professor Of Communication Relationship Specialty Start Date End Date Mervat Kelley APRN PCP - General Advanced Practice Nurse 06/12/17
--- OUTSIDE RECORDS SUMMARY | 2024-12-09 11:12 | XMS_ITS | Encounter Summary ---
Author Organization [facility] Address [address] [place] [address] Care Team Providers Care Medical File Clerk Name Role Phone Mervat Kelley ENTERTAINMENT DIRECTOR-BACK OFFICE MEDICAL ASSISTANT Primary Care Provider + Encounter Details Date Type Department Care Team (Late st Contact Info) Description 10/06/2022 Lab Requisition [facility] - Pathology Lab [address] [place] [address] Jesus Louis MD [address] [address] Illness, unspecified Social History Tobacco [...] Report Bone Marrow Patholog y Report Case: [id number] Authorizing Provider: Jesus Louis MD Collected: 10/05/2022 09:15 AM Ordering Location: [facility] [place] [facility] Pathology Lab Received: 10/06/2022 01:27 PM Pathologist: Linda Hauser MD Specimens: A) - Bone Marrow Clot, Fluoro-guided bone marrow aspiration B) - Bone Marrow Core, Fluoro-guided bone marrow core bx 10/07/2022 1:40 PM CDT [facility] PATHOLOGY LAB Final Diagnosis Bone marrow, aspirate, [...] normal. Platelet morphology: normal. 10/07/2022 1:40 PM [facility] PATHOLOGY LAB Bone Marrow Aspirate The [...] Control is appropriately reactive. 10/07/2022 1:40 PM [facility] PATH[facility] Bone Marrow Core Biopsy [...] an increased number of early erythroid progenitors. [id number] demonstrates additional, more mature erythroid lineage cells, confirming erythroid hyperplasia. Myeloperoxidase is positive in relatively fewer numbers of myeloid precursors. CD3 and CD20 show a normal number and distribution of T-cells and B-cells, respectively. Reticulin staining shows no significant marrow fibrosis (MF-0), and trichrome staining shows no collagen deposition. 10/07/2022 1:40 PM [facility] PATHOLOG[facility] Flow Cytometry Summary Concurrent flow cytometry ([id number]) shows no evidence of non-Hodgkin lymphoma or high-grade myeloid neoplasm. 10/07/2022 1:40 PM [facility] PATHOLOGY [facility] Clinical History 82 year old woman with macrocytic anemia. 10/07/2022 1:40 PM CDT [facility] PATH[facility] Materials Received Received are 22 slides and 3 blocks (A1, A2; B1) labeled [id number] along with a copy of the outside pathology report. The materials originate from [facility], [address] [place] [address] [place] [address]. All original materials are returned to the referring institution, along with a copy of our final report. 10/07/2022 1:40 PM CDT U PATHOLOGY LAB Pathologist Location at [facility] 10/07/2022 1:40 PM CDT [facility] PATH[facility] LAB Disclaimer The performance characteristics of all immunohistochemical and indirect immunofluorescence stains (if any) cited in this report were determined by the Histopathology Laboratory of [facility]. Some of these tests were developed by [...] attending (teaching) pathologist. 10/07/2022 1:40 PM CDT [facility] PATHOLOG[facility] Embedded Images 10/07/2022 1:40 PM CDT [facility] PATH[facility] LAB Pathology/Cytology BONE MARROW SPECIMEN / Unknown 10/05/2022 9:15 AM CDT 10/06/2022 1:27 PM CDT Miscellaneous samples (specimen) BONE MARROW SPECIMEN / Unknown 10/05/2022 9:15 AM CDT 10/06/2022 1:27 PM CDT us Jesus Louis MD LAB - PATHOLOGY/CYTOLOGY ORDERAB LES Final Result [facility] PATHOLOGY LAB [address] [place], [place] [address] [place] [address] documented in this encounter Visit Diagnoses Diagnosis Illness, unspecified documented in this encounter Care Teams Medical File Clerk Relationship Specialty Start Date End Date Mervat Kelley APRN-DAIVS [address] [phone] PCP - General 11/24/21 documented as of this encounter
--- OUTSIDE RECORDS SUMMARY | 2024-12-09 11:12 | XMS_ITS | Clinical Summary ---
Author Organization [facility] Facility Address [address] [facility] [place] [address] Care Team Providers Care Metal Engraver Name Role Phone Unavailable Primary Care Provider [...] Department Care Team Description 10/07/2024 Documentation Only [facility] [place] [phone] Ricky Moseley MD 09/30/2024 Orders Only [facility] [address] [place] [phone] Nargis Helms MA from Last 3 Months Social History Tobacco Use Types Packs/Day Years Used Date Smoking Tobacco: Never Assessed Comments Unknown Sex and Gender Information Value Date Recorded Sex Assigned at Not on file Legal Sex Female 6:09 PM EDT Gender Identity Not on file Sexual Orientation Not on file Plan of Treatment Health Maintenance Due Date Last Done Comments Hepatitis B Vaccine (1 of 3 - Risk 3-dose series) 2001 Influenza Vaccine (#1) 2024 9, 02/06/2018, 12/02/2016, Additional history exists Pneumococcal Vaccine: 50+ Years Completed 10/26/2020, 05/18/2016, 04/03/2016, Additional history exists Pneumococcal Vaccine: Peds ( 0 to 5 Years) and At-Risk Patients (6 to 49 Years) Discontinued 10/26/2020, 05/18/2016, 04/03/2016, Additional history exists
[2024-12-09 11:42] LABS: Hematocrit 23.4 % (37.0-47.0); Hemoglobin 7.5 g/dL (12.0-15.0); Mean Corpuscular HGB Conc 32.1 g/dl (32-36); Mean Corpuscular Hemoglobin 37.7 pg (26-34); Mean Corpuscular Volume 117.6 fl (80-100); Platelet Count Result 156 k/mm3 (150-375); Red Blood Count 1.99 M/mm3 (4.2-5.4)
[2024-12-09 12:05] LABS: White Blood Count 1.8 K/mm3 (4.5-10.0)
[2024-12-09 12:12] LABS: Anisocytosis 2+; Band Neutrophils Percent 4 % (0-6); Basophils Absolute Manual 0.03 K/mm3 (0.0-0.1); Basophils Percent Manual 2 % (0-1); Eosinophils Absolute Manual 0.03 K/mm3 (0.02-0.50); Eosinophils Percent Manual 2 % (0-4); Lymphocytes Absolute Manual 0.43 K/mm3 (1.1-4.5); Lymphocytes Percent Manual 24.0 % (18-44); Monocytes Absolute Manual 0.07 K/mm3 (0.1-0.90); Monocytes Percent Manual 4 % (3-9); Neutrophils Absolute Manual 1.22 K/mm3 (1.3-6.7); Neutrophils Percent Manual 64 % (46-73); Total Cells Counted 100
[2024-12-09 12:13] LABS: Hypochromasia 2+; Schistocytes Rare; Tear Drop Cells Occasional
== END 2025-03-09 23:59 | disposition home or self-care (01) ==
LOC: ANHLAB 10:35
PROVIDERS: PCP Internal Medicine
DX: D46.9 Myelodysplastic syndrome, unspecified (principal); D63.0 Anemia in neoplastic disease
CPT/HCPCS: 36415; 85025

== ENCOUNTER 2024-12-28 11:48 | Emergency (ER) | payer MEDICARE, SELFPAY ==
[2024-12-28 11:57] VITALS: BP 115/65; PULSE 102; RESP 18; TEMP 36.6; O2SAT 96
--- NOTE | 2024-12-28 12:01 | ED.FEMALEGU ---
HPI - Female Genitourinary General Chief complaint: Urogenital-Female Stated complaint: UTI Time Seen by Provider: 12/28/24 12:02 Source: patient, RN notes reviewed and old records reviewed Mode of arrival: ambulatory Limitations: no limitations History of Present Illness HPI Narrative: 84 year old female who presents to [facility] care with complaints of 2 day history of burning, urgency frequency and also hesitancy of urination. Patient reports that she was up all night urinating and then when she had to go later she felt like she could not Patient reports no back or flank pain, denies any fevers or any abdominal pain. Patient reports that yesterday she did have 2-3 small diarrhea stools which were brownish in color. Patient reports that finished his C-Diff medication 2 weeks ago and has follow up appointment with his physician in the next week or 2. Patient reports she is wondering if she should be checked for C-Diff too since he has had some diarrhea. Instructed patient she would have to receive order from PCP for testing. MD elicited complaint: UTI Pertinent past history: other (past UTI) Onset (ago): day(s) (2) Location of symptoms: urethra Severity: moderate Quality of pain: burning Consistency: intermittent Vaginal discharge: none Vaginal bleeding: none Treatment prior to arrival: none Related Data Home Medications ?Medication ?Instructions ?Recorded ?Confirmed ?Last Taken ?Type lansoprazole 15 mg capsule,delayed 15 mg PO DAILY 04/11/22 12/08/24 08/12/23 History release (Prevacid 24Hr) loratadine 10 mg tablet (Claritin) 10 mg PO DAILY 04/11/22 12/08/24 08/12/23 History cyanocobalamin (vitamin B-12) 1,000 mcg PO DAILY 09/29/22 12/08/24 08/12/23 History 1,000 mcg capsule spironolactone 25 mg tablet 25 mg PO DAILY 12/26/22 12/08/24 08/12/23 History calcium 500 mg-vitamin D3 100 2 tablet PO DAILY 05/31/23 12/08/24 08/12/23 History unit-vitamin K 40 mcg chewable tablet black cohosh 540 mg capsule 20 mg PO DAILY 08/29/24 12/08/24 Unknown History Allergies Allergy/AdvReac Type Severity Reaction Status Date / Time cephalexin AdvReac Mild YEAST Verified 12/28/24 12:01 INFECTION cefdinir AdvReac Unknown Unknown Verified 12/28/24 12:01 clarithromycin AdvReac Unknown Unknown Verified 12/28/24 12:01 clindamycin AdvReac Unknown Other Verified 12/28/24 12:01 codeine AdvReac Unknown Nervousness Verified 12/28/24 12:01 dexamethasone AdvReac Unknown Unknown Verified 12/28/24 12:01 doxycycline AdvReac Unknown Unknown Verified 12/28/24 12:01 morphine AdvReac Unknown Headache Verified 12/28/24 12:01 tobramycin AdvReac Unknown Unknown Verified 12/28/24 12:01 Review of Systems Review of Systems: CONSTITUTIONAL: Denies fever, chills, or sweats. CARDIOVASCULAR: Denies chest pain, palpitations, or edema. RESPIRATORY: Denies cough or dyspnea. GASTROINTESTINAL: Denies abdominal pain, nausea, vomiting, had 3 loose stools yesterday none today brown in color GENITOURINARY: Reports dysuria, frequency, urgency and hesitancy for past 2 days Denies flank pain or hematuria. SKIN: Denies rash or itching. MUSCULOSKELETAL: Denies back pain or myalgia. Denies CVA tenderness NEUROLOGIC: Denies headache All systems reviewed & are unremarkable except as noted in HPI and below PMFSH Past Medical History Medical History Port-A-Cath in place Acute on chronic anemia Rectal bleeding Macrocytic anemia Rhinitis ILD (interstitial lung disease) Vulvar inflammation Obesity DVT prophylaxis Elevated LFTs Hiatal hernia Adrenal adenoma benign Hepatic steatosis and liver cyst Hypothyroidism Pneumonia due to COVID-19 virus COVID-19 virus infection Acute respiratory failure with hypoxia Acid reflux Hypertension Irritable bowel Migraines Osteoporosis Surgical History Surgical History History of colonoscopy with polypectomy most recent December 2018 with edematous polyps History of reconstructive repair of rectocele (~1995) History of bilateral cataract extraction History of medial meniscus repair of right knee (~2014) S/P laparoscopic-assisted sigmoidectomy (~08/2018) due to chronic diverticulitis History of carpal tunnel surgery of right wrist (~2015) History of hemorrhoidectomy (~2011) History of vaginal hysterectomy (~1995) without oophorectomy History of ankle surgery (~2000) ORIF right ankle Family History Family History Sibling Hypertension Hyperlipidemia Thyroid disease it sounds as if the patient sister likely had Graves disease with a thyroidectomy and then became ill because her thyroid hormone was not replaced. Acute myocardial infarction Brother early-onset Artificial cardiac pacemaker brother Mother Hypertension Thyroid disease It sounds as if her mother likely had Graves disease Father Emphysema lung Grandparent Lung cancer Other Carcinoma of colon Family history of malignant neoplasm of breast Family history of pancreatic cancer Social History Social History Social History: The patient lives with her of 54 years. They raised a son and a daughter. Their son as 3 daughters and the daughter has a son and a daughter. She is a lifelong nonsmoker. She did have a lot of secondhand smoke exposure as a child. She rarely drinks alcohol and only in small amounts. Primary care provider: Bryan Davey DO Smoking status: Never smoker Second hand tobacco smoke exposure: Yes (10-15 years ago) Alcohol intake: never Alcohol use details: Only rare alcohol use in small amounts. 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 Gender identity (if verbalized by the patient): Female Spiritual care concerns: No Comments At time of signature, agree with nursing past medical, surgical, social and family history. There is no relevant family history pertinent to the presenting complaint Exam Narrative: GENERAL: Well-appearing, well-nourished, and in no acute distress. HEAD: Normocephalic, atraumatic. NECK: Supple. no lymphadenopathy CHEST: Clear to auscultation. No respiratory distress. SAO2 96% on room air HEART: Regular rate and rhythm. No murmur heard. Normal peripheral pulses. ABDOMEN: Soft, nontender, nondistended, normal active bowel sounds. No CVA tenderness, urgency, frequency and burning with urination with some hesitancy, denies any visualized blood EXTREMITIES: Normal range of motion. No edema. SKIN: Warm, dry, no rash. NEURO: No focal deficits. Alert and oriented x3. Course Course Emergency Course: Patient is aware of diagnosis, understands and agrees to treatment plan.? Anticipatory guidance given.? Patient agrees to follow-up as directed and is aware of reasons to seek care at the emergency department. Portions of this record may have been created with voice recognition software Level of Care: Express Care Visit Vital Signs Vital signs: Vital Signs Temperature 36.6 C 12/28/24 11:57 Pulse Rate 102 H 12/28/24 11:57 Respiratory Rate 18 12/28/24 11:57 Blood Pressure 115/65 12/28/24 11:57 Pulse Oximetry 96 12/28/24 11:57 Oxygen Delivery Room Air 12/28/24 11:57 Temperature 36.6 C 12/28/24 11:57 Pulse Rate 102 H 12/28/24 11:57 Respiratory Rate 18 12/28/24 11:57 Blood Pressure 115/65 12/28/24 11:57 Pulse Oximetry 96 12/28/24 11:57 Oxygen Delivery Room Air 12/28/24 11:57 reviewed MDM - Female Genitourinary MDM Narrative Medical decision making narrative: Exam findings and UA show no acute concerns or changes; patient is non-toxic appearing and is in no distress.? Patient is appropriate for outpatient treatment and follow-up. Differential Diagnosis Differential diagnosis: Likely urinary tract infection, cystitis and other (dysuria) Medical Records Attestation: I reviewed the patient's medical records. Lab Data Attestation: I reviewed the patient's lab results. Lab results narrative: urine dip: dark and cloudy, glucose negative, bilirubin negative, ketone negative, specific gravity 1.015, blood 1+, pH 6.0, protein 2+, urobilinogen 1.0, leukocyte 2+, nitrite negative Labs: Lab Results 12/28/24 Range/Units 12:04 POC Urine Color Dark POC Urine Clarity Cloudy POC Urine pH 6.0 POC Ur Specif [place] 1.015 POC Urine Protein 2+ (Negative) POC Ur Glucose (UA) Negative (Negative) POC Urine Ketones Negative (Negative) POC Urine Blood 1+ (Negative) POC Urine Nitrite Negative (Negative) POC Urine Bilirubin Negative (Negative) POC Urine Urobilinogen 1.0 POC U Leukocyte Esteras 2+ (Negative) reviewed Critical Care Time Critical Care Time Critical Care Time: No Discharge Plan Discharge Clinical Impression: UTI (urinary tract infection) Qualifiers: Urinary tract infection type: site unspecified Hematuria presence: with hematuria Qualified Code(s): N39.0 - Urinary tract infection, site not specified Patient Disposition: Home Condition: Stable Instructions: Antibiotic Form, Urinary Tract Infection in Women (ED) Additional Instructions: Increase fluids especially cranberry juice and water Avoid caffeine and carbonated beverages Antibiotic as directed Tylenol/ibuprofen for pain or fever Follow-up with her primary care provider if further problems or concerns Recheck if you have fever over 101, nausea and vomiting. If your symptoms persist, change or worsen significantly before you can contact your personal physician then please, without delay, go to the emergency department for further evaluation. Follow-up with PCP in 7-10 days or sooner if needed Call your PCP in regards to wanting to be tested for Cdiff due to exposure from spouse Patient Language: German Prescriptions: New ciprofloxacin HCl 250 mg tablet 250 mg PO Q12H Qty: 14 0RF No Action lansoprazole [Prevacid 24Hr] 15 mg capsule,delayed release(DR/EC) 15 mg PO DAILY loratadine [Claritin] 10 mg tablet 10 mg PO DAILY cyanocobalamin (vitamin B-12) 1,000 mcg capsule 1,000 mcg PO DAILY spironolactone 25 mg tablet 25 mg PO DAILY black cohosh 540 mg capsule 20 mg PO DAILY levothyroxine 75 mcg tablet See Rx Instructions .ROUTE .COMPLEX Qty: 90 3RF Dose Instruction: Take 1 tablet by mouth once daily Rx Instructions: Take 1 tablet by mouth once daily calcium-vitamin D3-vitamin K 500-100-40 mg-unit-mcg Tablet,Chewable 2 tablet PO DAILY clonazepam 0.5 mg tablet 0.25 mg PO BID Qty: 90 0RF Follow-up/Referrals: Bryan Davey DO [Primary Care Provider, Internal Medicine] Time of Disposition: 12:21 Quality Kiesha Coma Scale Eyes: Open Verbal: Oriented and Alert Motor: Follows Commands [place] Coma Total Score: 15
[2024-12-28 12:06] LABS: EDUAAPPEAR Cloudy; EDUABILI Negative (Negative); EDUABLOOD 1+ (Negative); EDUACOLOR1 Dark; EDUAGLUCOSE Negative (Negative); EDUAKETONE Negative (Negative); EDUALEUKO 2+ (Negative); EDUANITRATE Negative (Negative); EDUAPH 6.0; EDUAPROTEIN 2+ (Negative); EDUASPGRAVITY 1.015; EDUAUROBILI 1.0
== END 2024-12-28 12:27 | disposition home or self-care (01) ==
PROVIDERS: Emergency Provider Registered Nurse; PCP Internal Medicine
DX: N39.0 Urinary tract infection, site not specified (principal); I10 Essential (primary) hypertension; E03.9 Hypothyroidism, unspecified; J84.9 Interstitial pulmonary disease, unspecified; K76.0 Fatty (change of) liver, not elsewhere classified; E66.9 Obesity, unspecified; Z68.25 Body mass index [BMI] 25.0-25.9, adult; K21.9 Gastro-esophageal reflux disease without esophagitis; M81.0 Age-related osteoporosis without current pathological fracture
CPT/HCPCS: 81003; 87086; 87186; 99213; G0463

== ENCOUNTER 2025-01-06 14:47 | Outpatient (CLI) | payer MEDICARE, SELFPAY ==
--- OUTSIDE RECORDS SUMMARY | 2024-12-31 09:30 | XMS_ITS | Encounter Summary ---
Author Organization [facility] of [facility] Address [address] [place] [address] Phone Care Team Providers Care Automobile Body Repair Supervisor Name Role Phone Bryan Davey DO Primary Care Provider [phone] Prateek King MD Unavailable Sherman Alvarez DO Unavailable [phone] Reason for Visit * Reason Comments Follow-up MDS Encounter Details Date Type Department Care Team (Latest Contact Info) Description 12/31/2024 9:30 AM CDT Office Visit [facility] Medicine Physicians [facility] Oncology [address] [place] [address] Medical Office [facility] [address] [place] [id number] Chalino Chapa MD [address] [place] [address] Myelodysplastic syndrome (HCC) (Primary Dx); Chronic anemia; Anemia in neoplastic disease Social History Tobacco Use Types Packs/Day Years Used Date Smoking Tobacco: Never Smokeless Tobacco: Never Alcohol Use Standard Drinks/Week Comments Yes 0 (1 standard drink = 0.6 oz pur e alcohol) C Utilities Answer Date Recorded In the past 12 months has [employer] electric, gas, oil, or water company threatened [...] often do you attend chur ch or amish services? Never 09/30/2024 Do you belong to [...] any time in the past 12 m [facility], were you homeless or living in a [facility] (including now)? No 10/02/2024 Personal Safety Answer Date Recorded Have you ever been in or are you currently in a harmful physical or emotional relationship or is someone making you feel afraid or unsafe? Denies 09/28/2024 Comments Unknown Sex and Gender Information Value Date Recorded Sex Assigned at Not on file Legal Sex Female 1:[address] [employer] Gender Identity Not on file Sexual Orientation Not on file documented as of this encounter Last Filed Vital Signs Vital Sign Reading Time Taken Comments Blood Pressure 103/54 12/31/2024 9:15 AM CDT Pulse 89 12/31/2024 9:15 AM CDT Temperature 36 C (96.8 F) 12/31/2024 9:15 AM CDT Respiratory Rate 18 12/31/2024 9:15 AM CDT Oxygen Saturation 99% 12/31/2024 9:15 AM CDT Inhaled Oxygen Concentration - - Weight 64 kg (141 lb 1.6 oz) 12/31/2024 9:15 AM CDT Height - - Body Mass Index 27.56 11/11/2024 10:57 AM CDT documented in this encounter Progress Notes * Chalino Chapa MD - 12/31/2024 9:30 AM CDT Images from the original note were not included. Patient Identifying Data: Venessa Villar is a 84 y.o. female seen in followup today DIAGNOSIS: MDS with ring sideroblasts. HEMATOLOGY/ONCOLOGY TREATMENT HISTORY: 11/10/2023--. The patient is an 83-year-old female who had previously been under the care of another oncologist with the [facility] operating out [facility] in [facility] to [facility] care. She had been seen for chronic [...] sideroblasts. She returns today for follow-up. She has, over the past several months been treated intermittently with decitabine. Unquestionably, with each cycle, the benefits have been less and the complications more. As a result, there has been less enthusiasm for wanting to proceed with an additional cycle of treatment despite the fact that her hemoglobin has once again dropped and required an occasional transfusion. Functionally, she is performing routine activities of daily living and ???getting around?? in the manner that she desires.She is currently on ciprofloxacin for a urinary tract infection. Otherwise, she has had no significa nt infections. Review of Systems Review of systems positive for symptoms as per interval history. All other review of systems negative. Objective Vitals: Vitals: 12/31/24 0915 BP: 103/54 BP Location: Right arm Pulse: 89 Resp: 18 Temp: 36 ??C (96.8 ??F) TempSrc: Skin SpO2: 99% Weight: 64 kg (141 lb 1.6 oz) PERFORMANCE STATUS: ECOG 1 PHYSICAL EXAM: Physical [...] Lab History Latest Ref Rng & Units 12/03/2024 08:30 12/18/2024 10:20 12/24/2024 11:35 12/31/2024 08:55 Labs - Hematology WBC 3.80 - 9.90 K/cumm 1.58 1.93 1.96 1.60 Total Hb, POC 11.9 - 15.5 g/dL 8.1 6.7 7.5 8.0 Hct 35.6 - 45.5 % 24.2 20.7 22.6 24.3 Plt 150 - 400 K/cumm 156 152 168 169 Neutrophil abs 1.50 - 6.50 K/cumm 0.88 1.27 1.01 1.01 Lymphocytes, abs 0.80 - 3.30 K/cumm 0.52 0.46 0.74 0.39 Chemistry Component Value Date/Time SODIUM 140 12/03/2024 0830 POTASSIUM 4.2 12/03/2024 0830 POTASSIUM 4.0 02/09/2017 1257 CHLORIDE 99 12/03/2024 0830 CO2 31 12/03/2024 0830 BUNSER 10 12/03/2024 0830 CREATININE 0.61 12/03/2024 0830 GLUCOSE 129 12/03/2024 0830 Component Value Date/Time CALCIUM 9.9 12/03/2024 0830 ALKPHOS 48 12/03/2024 0830 AST 28 12/03/2024 0830 ALT 53 (H) 12/03/2024 0830 BILITOT 0.9 12/03/2024 0830 Recent labs, radiology and pathology reviewed in [facility] ASSESSMENT: MDS with ring sideroblasts: On Decitabine PRN rather than on a monthly schedule; We are letting hercounts determine when her next dose is due. Unfortunately, she may be starting to show some signs of decitabine resistance given the drop in hemoglobin and platelets after a relatively short intervalsince her last treatment. In addition, this may indicate an evolution to leukemia. Nevertheless, she is functioning well and at this point is content with her functional status. We continued to hold the decitabine at this moment given her reasonable functional status and need only intermittently for transfusions. PLAN: On observation and treatment with Decitabine PRN. We would consider resumption of therapy if her transfusion requirement becomes higher or quality of life decrease his. We would perhaps shortened in the course of treatment. We will continue to check CBC is on a weekly basis and transfuse as needed. See MD/ HOSTESS CASHIER every 4 weeks. If her counts continue to drop we will need to enhance our oversight of her counts and potential transfusions. She will likely need a repeat bone marrow aspirate and biopsy to determine the status ofher marrow. At this point however I have no enthusiasm for doing so. I have reviewed vital signs, lab results, plan of care and recommended follow up with the patient, who verbalizes understanding. All questions were answered. Chalino Chapa MD Internal Medicine-Medical Oncology [facility] in [place] - Physicians in [address]; [address] [place] [address] Office: documented in this encounter Miscellaneous Notes * Addendum Note - Clau Cabral CLT - 12/31/2024 9:30 AM CDTAddended by: CLAU CABRAL on: 01/06/2025 09:09 AM Modules accepted: Orders documented in this encounter Plan of Treatment Scheduled Orders Name Type Priority Associated Diagnoses Orde r Schedule Comprehensive metabolic panel Lab Routine Myelodysplastic syndrome (HCC) Chronic anemia Expected: 01/28/2025, Expires: 12/24/2025 Type and screen Lab Routine Myelodysplastic syndrome (HCC) Chronic anemia weekly for 4 Occurrences starting 12/31/2024 until 12/24/2025, 1 completed CBC with auto differential Lab Routine Myelodysplastic syndrome (HCC) Chronic anemia Once a week for 4 Occurrences starting 01/06/2025 until 12/24/2025, 1 completed documented as of this encounter Results * (ABNORMAL) CBC with auto differential (01/06/2025 9:10 AM CDT) WBC 1.98(L) 3.80 - 9.90 K/cumm [facility] ([place]) Comment:Testing performed by : [facility] [place], [address] [facility] , Medical Office [address], [place] [address] Hgb 7.1(L) 11.9 - 15.5 g/dL [facility] ([place]) Comment:Testing performed by : [facility] [address], Medical Office [facility] [address], [place] [address] Hct 21.9(L) 35.6 - 45.5 % [facility] ([place]) Comment:Testing performed by : [facility] [address], Medical Office [address], [place] [address] Plt 154 150 - 400 K/cumm [facility] ([place]) Comment:Testing performed by : [facility] [place] [address], Medical Office [facility] [address], [place] [address] MPV 11.2 9.1 - 12.3 fL [facility] ([place]) Comment:Testing performed by : [facility] [place] [address], Medical Office [facility] [address], [place] [address] RBC 1.92(L) 3.90 - 5.20 M/cumm [facility] ([place]) Comment:Testing performed by : [facility] [place] [address], Medical Office [facility] [address], [place] [address] MCV 114.1(H) 81.3 - 96.4 fL [facility] ([place]) Comment:Testing performed by : [facility] [place] [address], Medical Office [facility] [address], [place] [address] MCH 37.0(H) 27.1 - 33.3 pg [facility] ([place]) Comment:Testing performed by : [facility] [place] [address], Medical Office [facility] [address], [place] [address] MCHC 32.4 32.3 - 35.7 g/dL [facility] ([place]) Comment:Testing performed by : [facility] [place] [address], Medical Office [facility] [address], [place] [address] RDW CV 21.4(H) 11.1 - 14.9 % [facility] ([place]) Comment:Testing performed by : [facility] [address], Medical Office [address], [place] [address] RDW SD 88.7(H) 35.7 - 48.1 fL [facility] ([place]) Comment:Testing performed by : [facility] [place], [address] [facility], Medical Office [facility] [address] [address] Blood 01/06/2025 9:10 AM CDT 01/06/2025 9:14 AM CDT Narrative [facility] ([place]) - 01/06/2025 9:17 AM CDT 01/07, 01/14, 01/21, 01/28 us Chalino Chapa MD LAB BLOOD ORDERABLES Aylin freedman Result [facility] ([place]) [facility] Department [place] [address] documented in this encounter Visit Diagnoses Diagnosis Myelodysplastic syndrome (HCC)- Primary Myelodysplastic syndrome, unspecified Chronic anemia Unspecified anemia Anemia in neoplastic disease Myelodysplastic syndrome (HCC) Myelodysplastic syndrome, unspecified Chronic anemia Unspecified anemia documented in this encounter Historical Medications * This list may reflect changes made after this encounter. ciprofloxacin (CIPRO) 250 mg tablet Take 1 tablet (250 mg total) by mouth every 12 (twelve) hours 12/28/2024 added in this encounter Orders Appointment Requests Count Last Ordered Date Fi rst Ordered Date ONCBCN BLOOD TRANSFUSION APPT 1 01/06/2025 ON[facility]N LAB APPOINTMENT 1 01/06/2025 ONCBCN CLINIC APPOINTMENT REQUEST 2 025 documented in this encounter Care Teams Automobile Body Repair Supervisor Relationship Specialty Start Date End Date Bryan Davey DO PCP - General Internal Medicine 11/14/23 Prateek King MD [address] [place] [address] Consulting Physician Urology 10/07/24 Sherman Alvarez DO [address] [place] [id number] Medical Oncologist/Parts Specialist Hematology and Oncology 10/07/24 documented as of this encounter
--- OUTSIDE RECORDS SUMMARY | 2025-01-06 10:00 | XMS_ITS | Encounter Summary ---
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 Never 09/30/2024 Do you belong to any clubs o r organizations such as jew groups, unions, fraternal or athletic groups, or [...] any time in the past 12 m [facility], were you homeless or living in a assisted (including now)? No 10/02/2024 Personal Safety Answer Date Recorded Have you ever been in or are you currently in a harmful physical or emotional relationship or is someone making you feel afraid or unsafe? 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 Chapa for a blood transfusion. The pts vital signsare stable and she has no questions or concerns. Blood consent was signed 05/14/24. Her port was accessed with a 20g 0.75in jung needle, blood return was noted and it flushed without resistance. 1 unit of PRBC's was transfused as documented and the pt tolerated it well, vital signs were done and documented. Blood transfusion completed and the port was then flushed with NS, heparin instilled and then de accessed, the pt was given discharge paperwork and left in stable condition. documented in this encounter Plan of Treatment Not on file documented as of this encounter Procedures Procedure Name Priority Date/Time Associated Diagnosis Comments TRANSFUSE RED BLOOD CELLS Timed 01/06/2025 10:45 AM CDT Anemia in neoplastic disease MDS (myelodysplastic syndrome) (HCC) PREPARE RBC Routine 01/06/2025 10:34 AM CDT PREPARE RBC Routine 01/06/2025 10:08 AM CDT Anemia in neoplastic disease MDS (myelodysplastic syndrome) (HCC) documented in this encounter Results * Transfuse RBC: 1 Units (01/06/2025 12:34 PM CDT) Blood Chalino Chapa MD BLOOD TRANSFUSION ORDERAB LES Final Result * Transfuse RBC (01/06/2025 12:34 PM CDT) Blood Chalino Chapa MD BLOOD TRANSFUSION ORDERAB LES Final Result * Prepare RBC (01/06/2025 10:34 AM CDT) Unit Number [id number] Product code [id number] [facility] ([place]) Blood Expiration Date [id number] [facility] ([place]) Product Blood Type (for scanning) 9500 [facility] ([place]) Product Blood Type ONEG [facility] ([place]) Dispense Status DISPENSED [facility] ([place]) Chalino Chapa MD BLOOD BANK PRODUCT ORDERA BLES Final Result [facility] ([place]) [address] [place] [address] [place] [address] * Prepare RBC: 1 Units (01/06/2025 10:08 AM CDT) Units requested 1 Comment:Testing performed by : [place], [address] Units requested Ready [facility] ([place]) Comment:Testing performed by : [place], [address] Blood 01/06/2025 10:0 8 AM CDT 01/06/2025 10:08 AM CDT Narrative [facility] ([place]) - 01/06/2025 10:08 AM CDT Are special requirements needed? (All products are leukoreduced and CMV- safe)->No Chalino Chapa MD BLOOD BANK PRODUCT ORDERA BLES Final Result [facility] ([place] 1 [facility] Department of Laboratories [place], [place] [id number] documented in this encounter Visit Diagnoses Diagnosis Anemia in neoplastic disease- Primary Myelodysplastic syndrome (HCC) Myelodysplastic syndrome, unspecified Chronic anemia Unspecified anemia MDS (myelodysplastic syndrome) (HCC) Myelodysplastic syndrome, unspecified documented in this encounter Administered Medications Active Administered Medications - up to 3 most recent administrations Medication Order MAR Action Action Date Dose Rate Site sodium chloride 0.9% flush 10 mL 10 mL, intravenous, As needed, line care, Starting on Mon01/06/25 at 0922, Flush pre and post IV catheter use.Indications:Anemia in neoplastic disease,MDS (myelodysplastic syndrome) (HCC) Given 01/06/2025 12:37 PM CDT 10 mL sodium chloride 0.9% IVPB 0-250 mL 0-250 mL, intravenous, As needed, flush tubing for blood product administration, Starting on Mon01/06/25 at 0922, Prime blood tubing and administer amount needed to clear line (usually 50-100 mL) after transfusion complete.Indications:Anemia in neoplastic disease,MDS (myelodysplastic syndrome) (HCC) New Bag 01/06/2025 10:14 AM CDT 250 mL Inactive Administered Medications - up to 3 most recent administrations Medication Order MAR Action Action Date Dose Rate Site acetaminophen (TYLENOL) tablet 650 mg 650 mg, oral, Once, On Mon01/06/25 at 1000, For 1 dose, Platelet Transfusion: - 30 minutes prior to platelet transfusion PRBC Transfusion: - Not needed for PRBCs unless history of prior transfusion reactionIndications:Anemia in neoplastic disease,MDS (myelodysplastic syndrome) (HCC) Given 01/06/2025 9:42 AM CDT 650 mg heparin 100 unit/mL injection 500 Units 500 Units (5 mL), IV flush, Once as needed, line care, Starting on Mon01/06/25 at 0922, For 1 dose, Flush with Heparin immediately prior to de-accessing port.Indications:Anemia in neoplastic disease,MDS (myelodysplastic syndrome) (HCC) Given 01/06/2025 12:37 PM CDT 500 Units documented in this encounter Orders Nursing Count Last Ordered Date First Orde red Date ONCBCN NURSING COMMUNICATION [id number] 1 1 VITAL SIGNS 1 01/06/2025 IV Count Last Ordered Date First Orde red Date ACCESS IMPLANTED PORT 1 01/06/2025 DECANNULATE IMPLANTED PORT 1 01/06/2025 Appointment Requests Count Last Ordered Date Fi rst Ordered Date ONCBCN BLOOD TRANSFUSION APPT 1 01/06/2025 documented in this encounter Care Teams Occupational Therapy Department Chair Relationship Specialty Start Date End Date Bryan Davey DO PCP - General Internal Medicine 11/14/23 Prateek King MD [address] [place] [address] Consulting Physician Urology 10/07/24 Sherman Alvarez DO [address] [place] [address] Medical Oncologist/Sustainability Engineer Hematology and Oncology 10/07/24 documented as of this encounter
--- OUTSIDE RECORDS SUMMARY | 2025-01-06 10:00 | XMS_ITS | Encounter Summary ---
Author Organization [facility] Healthcare Address [address] [place] [address] Care Team Providers Care Netbackup Admin Name Role Phone Bryan Davey DO Primary Care Provider [phone] Prateek King MD Unavailable Sherman Alvarez DO Unavailable [phone] Encounter Details Date Type Department Care Team (Late st Contact Info) Description 01/06/2025 10:00 AM CDT Lab [address] [place] [phone] Myelodysplastic syndrome (HCC); Chronic anemia Social History Tobacco Use Types Packs/Day Years Used Date Smoking Tobacco: Never Smokeless Tobacco: Never Alcohol Use Standard Drinks/Week Comments Yes 0 (1 standard drink = 0.6 oz pur e alcohol) [facility] Utilities Answer Date Recorded In the past 12 months has [employer], gas, oil, or water company threatened to [...] week 09/30/2024 How often do you attend [facility] or church services? Never 09/30/2024 Do you belong to any clubs o r organizations such as zoroastrian groups, unions, fraternal or athletic groups, or [...] any time in the past 12 m [facility], were you homeless or living in a senior living (including now)? No 10/02/2024 Personal Safety Answer Date Recorded Have you ever been in or are you currently in a harmful physical or emotional relationship or is someone making you feel afraid or unsafe? 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 Gender Identity Not on file Sexual Orientation Not on file documented as of this encounter Plan of Treatment Not on file documented as of this encounter Procedures Procedure Name Priority Date/Time Associated Diagnosis Comments CROSSMATCH Routine 01/06/2025 10:06 AM CDT DIFFERENTIAL AUTO Routine 01/06/2025 9:1 0 AM CDT Myelodysplastic syndrome (HCC) Chronic anemia CBC WITH AUTO DIFFERENTIAL Routine 01/06/2025 9:10 AM CDT Myelodysplastic syndrome (HCC) Chronic anemia ABO/RH Routine 01/06/2025 9:10 AM CDT Myelodysplastic syndrome (HCC) Chronic anemia ANTIBODY SCREEN Routine 01/06/2025 9:10 AM CDT Myelodysplastic syndrome (HCC) Chronic anemia TYPE AND SCREEN Routine 01/06/2025 9:10 AM CDT Myelodysplastic syndrome (HCC) Chronic anemia documented in this encounter Results * Crossmatch (01/06/2025 10:06 AM CDT) Crossmatch Compatible [facility] ([place]) Unit number for crossmatch [id number] [facility] [place]) Blood 01/06/2025 10:0 6 AM CDT 01/06/2025 10:06 AM CDT us Chalino Chapa MD LAB BLOOD BANK TEST ORDER LAITH Final Result [facility] ([place]) [address] [place] [address] Department [place] [address] * Antibody screen (01/06/2025 9:10 AM CDT) Rivera, indirect, Gel Interpretation Negative ABSC Comment:Testing performed by : [facility], [facility], [place], [address] Blood 01/06/2025 9:10 AM CDT 01/06/2025 9:26 AM CDT Narrative [facility] ([place]) - 01/06/2025 10:04 AM CDT 01/07, 01/14, 01/21, 01/28 Has the patient had Daratumumab or Isatuximab in the past 6 months?->Unknown us Chalino Chapa MD LAB BLOOD BANK TEST ORDER LAITH Final Result [facility] ([place]) [facility] Department [place] [address] * ABO/Rh (01/06/2025 9:10 AM CDT) ABO/Rh O Positive Comment:Testing performed by : [facility], [facility], [place], [address] Blood 01/06/2025 9:10 AM CDT 01/06/2025 9:26 AM CDT Narrative [facility] ([place]) - 01/06/2025 10:04 AM CDT 01/07, 01/14, 01/21, 01/28 Has the patient had Daratumumab or Isatuximab in the past 6 months?->Unknown us Chalino Chapa MD LAB BLOOD BANK TEST ORDER LAITH Final Result Performing Organization Address City/[facility]/ZIP Co de Phone Number [facility] ([place]) 1 [facility] Department [place] [address] * (ABNORMAL) Differential, auto (01/06/2025 9:10 AM CDT) Neutrophil abs 1.18(L) 1.50 - 6.50 K/cumm [facility] ([place]) Comment:Testing performed by : [facility] [address], Medical Office [address], [place] [address] Imm gran abs 0.02 0.00 - 0.10 K/cumm [facility] ([place]) Comment:Testing performed by : [facility] [address], Medical Office [facility] B [facility] [address], [place] [address] Lymphocyte abs 0.48(L) 0.80 - 3.30 K/cumm [facility] ([place]) Comment:Testing performed by : [facility] [address], Medical Office [facility] [address], [place] [address] Monocyte abs 0.16(L) 0.20 - 0.80 K/cumm [facility] ([place]) Comment:Testing performed by : [facility] [address], Medical Office [facility] B [facility] [address], [place] [address] Eosinophil abs 0.11 0.00 - 0.50 K/cumm [facility] ([place]) Comment:Testing performed by : [facility] [address], Medical Office [facility] [address], [place] [address] Basophil abs 0.03 0.00 - 0.10 K/cumm [facility] ([place]) Comment:Testing performed by : [facility] [address], Medical Office [facility] [address], [place] [address] Neutrophil pct 59.6 % [facility] ([place]) Comment: Interpretive Data Percent cell count reference ranges are not reported, since discordance with absolute values may lead to misinterpretation of CBC data. Current Interpretive Data was last revised on 2022. Testing performed by: [facility] [address], Medical Office [facility] [address], [place] [address] Imm gran pct 1.0 % [facility] ([place]) Comment: Interpretive Data Percent cell count reference ranges are not reported, since discordance with absolute values may lead to misinterpretation of CBC data. Current Interpretive Data was last revised on 2022. Testing performed by: [facility] [address], Medical Office [facility] B [facility] [address], [place] [address] Lymphocyte pct 24.2 % [facility] ([place]) Comment: Interpretive Data Percent cell count reference ranges are not reported, since discordance with absolute values may lead to misinterpretation of CBC data. Current Interpretive Data was last revised on 2022. Testing performed by: [facility] [address], Medical Office [facility] [address], [place] [address] Monocyte pct 8.1 % [facility] ([place]) Comment: Interpretive Data Percent cell count reference ranges are not reported, since discordance with absolute values may lead to misinterpretation of CBC data. Current Interpretive Data was last revised on 2022. Testing performed by: [facility] [address], Medical Office [facility] B [facility] [address], [place] [address] Eosinophil pct 5.6 % EMELINA [facility] ([place]) Comment: Interpretive Data Percent cell count reference ranges are not reported, since discordance with absolute values may lead to misinterpretation of CBC data. Current Interpretive Data was last revised on 2022. Testing performed by: [facility] [address], Medical Office [facility] [address], [place] [address] Basophil pct 1.5 % [facility] ([place]) Comment: Interpretive Data Percent cell count reference ranges are not reported, since discordance with absolute values may lead to misinterpretation of CBC data. Current Interpretive Data was last revised on 2022. Testing performed by: [facility] [address], Medical Office [facility] B [facility] [address], [place] [address] Blood 01/06/2025 9:10 AM CDT 01/06/2025 9:14 AM CDT us Chalino Chapa MD LAB BLOOD ORDERABLES Aylin l Result [facility] ([place]) 1 [facility] Department [place] [address] * (ABNORMAL) CBC with auto differential (01/06/2025 9:10 AM CDT) WBC 1.98(L) 3.80 - 9.90 K/cumm [facility] ([place]) Comment:Testing performed by : [facility] [address], Medical Office [facility] [address], [place] [address] Hgb 7.1(L) 11.9 - 15.5 g/dL [facility] ([place]) Comment:Testing performed by : [facility] [address], Medical Office [address], [place] [address] Hct 21.9(L) 35.6 - 45.5 % [facility] ([place]) Comment:Testing performed by : [facility] [address], Medical Office [facility] [address], [place] [address] Plt 154 150 - 400 K/cumm [facility] ([place]) Comment:Testing performed by : [facility] [address], Medical Office [facility] [address], [place] [address] MPV 11.2 9.1 - 12.3 fL [facility] ([place]) Comment:Testing performed by : [facility] [address], Medical Office [facility] [address], [place] [address] RBC 1.92(L) 3.90 - 5.20 M/cumm [facility] ([place]) Comment:Testing performed by : [facility] [address], Medical Office [facility] [address], [place] [address] MCV 114.1(H) 81.3 - 96.4 fL [facility] ([place]) Comment:Testing performed by : [facility] [address], Medical Office [facility] B [facility] [address], [place] [address] MCH 37.0(H) 27.1 - 33.3 pg [facility] ([place]) Comment:Testing performed by : [facility] [address], Medical Office [facility] [address], [place] [address] MCHC 32.4 32.3 - 35.7 g/dL [facility] ([place]) Comment:Testing performed by : [facility] [address], Medical Office [facility] B [facility] [address], [place] [address] RDW CV 21.4(H) 11.1 - 14.9 % [facility] ([place]) Comment:Testing performed by : [facility] [address], Medical Office [facility] [address], [place] [address] RDW SD 88.7(H) 35.7 - 48.1 fL [facility] ([place]) Comment:Testing performed by : [facility] [address], Medical Office [facility] [address], [place] [address] Blood 01/06/2025 9:10 AM CDT 01/06/2025 9:14 AM CDT Narrative [facility] ([place]) - 01/06/2025 9:17 AM CDT 01/07, 01/14, 01/21, 01/28 us Chalino Chapa MD LAB BLOOD ORDERABLES Aylin l Result [facility] ([place]) 1 [facility] Department [place] [address] documented in this encounter Visit Diagnoses Diagnosis Myelodysplastic syndrome (HCC) Myelodysplastic syndrome, unspecified Chronic anemia Unspecified anemia documented in this encounter Orders Appointment Requests Count Last Ordered Date Fi rst Ordered Date ONCBCN LAB APPOINTMENT 1 01/06/2025 documented in this encounter Care Teams Netbackup Admin Relationship Specialty Start Date End Date Bryan Davey DO PCP - General Internal Medicine 11/14/23 Prateek King MD [address] [place] [address] Consulting Physician Urology 10/07/24 hSerman Alvarez DO [address] [place] [address] Medical Oncologist/After School Program Assistant Hematology and Oncology 10/07/24 documented as of this encounter
--- OUTSIDE RECORDS SUMMARY | 2025-01-06 15:32 | XMS_ITS | Encounter Summary ---
Author Organization [facility] Address [address] [place] [address] Phone Care Team Providers Care Cloud Consultant Name Role Phone Bryan Davey DO Primary Care Provider [phone] Prateek King MD Unavailable Sherman Alvarez DO Unavailable [phone] Encounter Details Date Type Department Care Team (Late st Contact Info) Description 01/06/2025 Orders Only [facility] Oncology [address] [place] [address] Medical Office [address] [place] [phone] Chalino Chapa MD [address] [place] [address] Social History Tobacco Use Types Packs/Day Years Used Date Smoking Tobacco: Never Smokeless Tobacco: Never Alcohol Use Standard Drinks/Week Comments Yes 0 (1 standard drink = 0.6 oz pur e alcohol) [facility] Utilities Answer Date Recorded In the past 12 months has [employer] electric, gas, oil, or water company threatened [...] often do you attend chur ch or worship services? 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
--- OUTSIDE RECORDS SUMMARY | 2025-01-06 15:32 | XMS_ITS | Encounter Summary ---
Author Organization [facility] Address [address] [place] [address] Phone Care Team Providers Care Hardware Sales Assistant Name Role Phone Bryan Davey DO Primary Care Provider [phone] Prateek King MD Unavailable Sherman Alvarez DO Unavailable [phone] Encounter Details Date Type Department Care Team (Late st Contact Info) Description 01/06/2025 Orders Only [facility] Medicine [facility] Oncology [address] [place] [address] Medical Office dg B [facility] [address] [place] [phone] Chalino Chapa MD [address] [place], [place] [id number] Myelodysplastic syndrome (HCC) (Primary Dx) Social History Tobacco Use Types Packs/Day Years Used Date Smoking Tobacco: Never Smokeless Tobacco: Never Alcohol Use Standard Drinks/Week Comments Yes 0 (1 standard drink = 0.6 oz pur e alcohol) [facility] Utilities Answer Date Recorded In the [...] often do you attend chur ch or mu-ism services? 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 Gender Identity Not on file Sexual Orientation Not on file documented as of this encounter Plan of Treatment Scheduled Orders Name Type Priority Associated Diagnoses Orde r Schedule CBC with auto differential Lab Routine Myelodysplastic syndrome (HCC) Expected: 01/14/2025, Expires: 01/06/2026 documented as of this encounter Visit Diagnoses Diagnosis Myelodysplastic syndrome (HCC)- Primary Myelodysplastic syndrome, unspecified documented in this encounter Care Teams Hardware Sales Assistant Relationship Specialty Start Date End Date Bryan Davey DO PCP - General Internal Medicine 11/14/23 Prateek King MD [address] [place] [address] Consulting Physician Urology 10/07/24 Sherman Alvarez DO [address] [place] [address] Medical Oncologist/Hadoop Java Developer Hematology and Oncology 10/07/24 documented as of this encounter
--- OUTSIDE RECORDS SUMMARY | 2025-01-06 15:32 | XMS_ITS | Encounter Summary ---
Author Organization [facility] Address [address] [place] [address] Phone Care Team Providers Care Director Clinical Research Name Role Phone Bryan Davey DO Primary Care Provider [phone] Prateek King MD Unavailable Sherman Alvarez DO Unavailable [phone] Encounter Details Date Type Department Care Team (Late st Contact Info) Description 12/18/2024 Results Follow-Up [facility] Medicine Physicians [facility] Oncology [address] [place] [address] Medical Office [facility] [address] [address] Theresa Gutierres RN CBC with auto differential, Differential, auto Social History Tobacco Use Types Packs/Day Years Used Date Smoking Tobacco: Never Smokeless Tobacco: Never Alcohol Use Standard Drinks/Week Comments Yes 0 (1 standard drink = 0.6 oz pur e alcohol) [facility] Utilities Answer Date Recorded In the past 12 months has [employer] electric, gas, oil, or water company threatened [...] often do you attend chur ch or congregation services? Never 09/30/2024 Do you belong to any clubs o r organizations such as faith groups, unions, fraternal or athletic groups, or [...] any time in the past 12 m [facility], were you homeless or living in a detention (including now)? No 10/02/2024 Personal Safety Answer Date Recorded Have you ever been in or are you currently in a harmful physical or emotional relationship or is someone making you feel afraid or unsafe? 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 Gender Identity Not on file Sexual Orientation Not on file documented as of this encounter Plan of Treatment Not on file documented as of this encounter Visit Diagnoses Not on filedocumented in this encounter Care Teams Director Clinical Research Relationship Specialty Start Date End Date Bryan Davey DO PCP - General Internal Medicine 11/14/23 Prateek King MD [address] [place] [address] Consulting Physician Urology 10/07/24 Sherman Alvarez DO [address] [place] [id number] Medical Oncologist/Chemistry Tutor Hematology and Oncology 10/07/24 documented as of this encounter
--- OUTSIDE RECORDS SUMMARY | 2025-01-06 15:32 | XMS_ITS | Clinical Summary ---
Author Organization [facility] Address [address] [place] [address] Care Team Providers Care Health Aid Name Role Phone Unavailable Primary Care Provider [...] 04/03/2016 Insurance MEDICARE PART A AND B [facility] SUPP
--- OUTSIDE RECORDS SUMMARY | 2025-01-06 15:33 | XMS_ITS | Clinical Summary ---
Author Organization [facility] Address [address], [address] [address] Phone Care Team Providers Care Dry Folder Cloth Name Role Phone Mervat Kelley APRN Primary Care Provider [phone] Medications polyethylene glycol (MIRALAX) Powder Use entire [...] 1991 Zoster Immunization (1 of 2) 1991 Medicare Initial AWV [id number] 02/01/2007 Respiratory Syncytial Virus (RSV) Immunization (Adult) (1 - 1-dose 75+ series) 02/09/2016 Influenza Immunization (#1) 2024 SARS-COV-2 Immunization ( - season) 2024 Hepatitis B Immunization Aged Out No [...] age to complete this topic Insurance MEDICARE [facility] Care Teams Dry Folder Cloth Relationship Specialty Start Date End Date Mervat Kelley APRN PCP - General Advanced Practice Nurse 06/12/17
--- OUTSIDE RECORDS SUMMARY | 2025-01-06 15:33 | XMS_ITS ---
Author Organization [facility] Building [address] Address [address] [place] [address] Care Team Providers Care Lab Clerk Name Role Phone Bryan Davey DO Primary Care Provider [phone] Prateek King MD Unavailable Sherman Alvarez DO Unavailable [phone] Active Problems Problem Noted Date Diagnosed Date [...] Dysphagia Current Treatment and Therapy Plans Adult BMT/ONC - Blood and/or Platelet Administration for Outpatient* Plan Start Date:12/24/2024 Plan Provider:Chalino Chapa MD Linked Problems Anemia in neoplastic disease MDS (myelodysplastic syndrome) (HCC) Treatment Medications No medications scheduled. Decitabine (D1-5) 28 Day Cycles - AML or MDS* Plan Start Date:11/26/2023 Plan Provider:Chalino Chapa MD Linked Problems MDS (myelodysplastic syndrom e) ([facility]) Treatment Medications Current Day (Day 1 [...] - Blood and/or Platelet Administration for Outpatient 12/18/2024 12/24/2024 No medications scheduled. Orders Chalino Chapa MD Adult Non-ONC - Blood [...] Outpatient 09/02/2024 09/09/2024 No medications scheduled. Therapy Chalino Rodrigez MD Adult ONE TIME USE - Blood and/or Platelet Administration for Outpatient 05/20/2024 08/29/2024 No medications scheduled. Therapy Chalino Rodrigez MD Adult ONE TIME USE - Blood [...] (06/06/2018): Added automatically from request for surgery [id number]
--- OUTSIDE RECORDS SUMMARY | 2025-01-06 15:33 | XMS_ITS | Encounter Summary ---
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 Primary Care Provider + Encounter Details Date Type Department Care Team (Late st Contact Info) Description 10/05/2022 Lab Requisition [facility] - Pathology Lab [address] [place] [address] Jesus Louis MD [address] [address] Anemia, unspecified Social History Tobacco [...] AM CDT) Case Report Flow Cytometry Case: [id number] Authorizing Provider: Jesus Louis MD Collected: 10/05/2022 09:15 AM Ordering Location: [facility] Pathology Lab Received: 10/05/2022 02:15 PM Pathologist: Linda Hauser MD Specimen: Bone Marrow 10/05/2022 4:45 PM CDT [facility] Final Diagnosis Bone marrow, flow cytometric immunophenotypic analysis: - No evidence of non-Hodgkin lymphoma or high-grade myeloid neoplasm. - See interpretation. 10/05/2022 4:45 PM CDT [facility] PATH[facility]Y LAB at 1644 CDT Flow Cytometry [...] ID # [id number] 10/05/2022 4:45 PM CDT [facility] Number of markers 10 were performed. A-2 Flow CD10 A-3 Flow CD13 A-5 Flow CD20 A-1 Flow CD5 A-4 Flow CD19 A-6 Flow CD33 A-7 Flow CD34 A-8 Flow CD45 A-9 [place]ila[place]a+CD19+ A-10 Lambda+CD19+ 10/05/2022 4:45 PM CDT [facility] Pathologist Location at [facility] 10/05/2022 4:45 PM CDT [facility] Disclaimer Test performed at [facility], [address] [place], [place], [address]. *The established laboratory minimum viability is 70%. [...] PATHOLOGY LAB Embedded Images 4:45 PM CDT [facility] Pathology/Cytolo gy BONE MARROW SPECIMEN / Unknown 10/05/2022 9:15 AM CDT 10/05/2022 2:15 PM CDT Jesus Louis MD LAB - PATHOLOGY/CYTOLOGY ORDERAB LES Final Result Performing Organization Address City/State/[facility] Co de Phone Number [facility] [address] [place] [address]. [address] [phone] documented in this encounter Visit Diagnoses Diagnosis Anemia, unspecified documented in this encounter Care Teams Tobacco Sizer Relationship Specialty Start Date End Date Mervat Kelley APRN-CNP [address] [address] PCP - General 11/24/21 documented as of this encounter
--- OUTSIDE RECORDS SUMMARY | 2025-01-06 15:33 | XMS_ITS | Clinical Summary ---
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 Special Name Role Phone Bryan Davey DO Primary Care Provider [phone] Prateek King MD Unavailable Sherman Alvarez DO Unavailable [phone] Allergies Active Allergy Reactions Criticality Noted Date Comments Antihistamine-1 Anxiety Low 09/07/2022 Cefdinir Other (See comments),Unknown Low 12/13/2022 Yeast infection Clarithromycin Itching,Nausea & Vomiting Low [...] 10 mg tabletIndicatio ns:MDS (myelodysplasti c syndrome) ([facility]) Take 1 tablet (10 mg [...] 1 tablet (75 mcg total) by mouth 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 Active docusate sodium (COLACE) 250 mg capsule Take 4 capsules (1,000 mg total) by mouth nightly Active melatonin tablet Take 2 tablets (6 mg total) by mouth nightly Active NON FORMULARY, FOR INPATIENT USE, Chew nightly Zzzquil Pure ZZZs Melatonin + Chamomile & Lavender Patient states she takes 1.5 to 2 gummies nightly Active ciprofloxacin (CIPRO) 250 mg tablet Take 1 tablet (250 mg total) by mouth every 12 (twelve) hours Active Active Problems Problem Noted Date Diagnosed [...] (06/06/2018): Added automatically from request for surgery [id number] Encounters Date Type Department Care Team Description 01/06/2025 10:00 AM CDT Lab [address] [place] [address] Myelodysplastic syndrome (HCC); Chronic anemia 01/06/2025 10:00 AM CDT Infusion [address] [place] [address] 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); Myelodysplastic syndrome (HCC); Chronic anemia; MDS (myelodysplastic syndrome) (HCC) 01/06/2025 Orders Only [facility] [address] [place] [address] Medical Office Bld[address] [place] [address] Chalino Chapa MD 01/06/2025 Orders Only [facility] [address] [place] [address] Medical Office [address] [place] [address] Chalino Chapa MD Myelodysplastic syndrome (HCC) (Primary Dx) 12/31/2024 9:30 AM CDT Office Visit [facility] [address] [place] [address] Medical Office [address] [place] [address] Chalino Chapa MD Myelodysplastic syndrome (HCC) (Primary Dx); Chronic anemia; Anemia in neoplastic disease 12/31/2024 9:00 AM CDT Lab [address] [place] [address] Myelodysplastic syndrome (HCC); Anemia in neoplastic disease 12/30/2024 Telephone [facility] [address] [place] [address] Office [facility] [address] [place] [address] Clau Cabral, CIRO 12/24/2024 11:30 AM CDT Lab [address] [place] [address] Myelodysplastic syndrome (HCC); Anemia in neoplastic disease; MDS (myelodysplastic syndrome) (HCC) 12/24/2024 11:30 AM CDT Infusion [address] [place] [address] 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); MDS (myelodysplastic syndrome) (HCC) 12/18/2024 10:30 AM CDT Lab [address] [place] [address] Myelodysplastic syndrome (HCC); Anemia in neoplastic disease; MDS (myelodysplastic syndrome) (HCC) 12/18/2024 10:30 AM CDT Infusion [address] [place] [address] MDS (myelodysplastic syndrome) (HCC) (Primary Dx); Myelodysplastic syndrome (HCC); Anemia in neoplastic disease 12/18/2024 Results Follow-Up [facility] [address] [place] [address] B [facility] [address] [place] [address] Theresa Gutierres RN CBC with auto differential, Differential, auto 12/18/2024 Orders Only [facility] [address] [place] [address] [address] [place] [address] Michael Terry MD 12/16/2024 Telephone [facility] Infusion [address] [place] [address] Chalino Chapa MD 12/09/[address] [place] [address] Chalino Chapa MD 12/09/2024 Documentation [facility] [address] [place] [address] Medical Office [address] [place] [address] Betty Sewell RN 12/03/2024 9:30 AM CDT Infusion [address] [place] [address] Bud Rubio RN MDS (myelodysplastic syndrome) (HCC) 12/03/2024 9:00 AM CDT Office Visit [facility] [address] [place] [address] Medical Office [address]g [address] [place] [address] Chalino Chapa MD Myelodysplastic syndrome (HCC) (Primary Dx); Anemia in neoplastic disease; MDS (myelodysplastic syndrome) (HCC) 12/03/2024 8:30 AM CDT Lab [address] [place] [address] MDS (myelodysplastic syndrome) (HCC); Myelodysplastic syndrome (HCC) 11/29/2024 9:00 AM CDT Infusion [address] [place] [address] Radha Brink RN Anemia in neoplastic disease; MDS (myelodysplastic syndrome) (HCC) 11/29/2024 8:30 AM CDT Lab [address] [place] [address] Anemia in neoplastic disease; MDS (myelodysplastic syndrome) ([facility]) 11/28/2024 Orders Only [facility] [address] [place] [address] Office [facility] [address] [place] [address] Chalino Chapa MD 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); MDS (myelodysplastic syndrome) ([facility]) 11/28/2024 Telephone [facility] [address] [place] [address] Office [facility] [address] [place] [address] Anisa Villagran, Ashley 11/26/2024 9:45 AM CDT Lab [address] [place] [address] MDS (myelodysplastic syndrome) ([facility]) 11/19/2024 10:00 AM CDT Infusion [address] [place] [address] Betty Donaldson RN MDS (myelodysplastic syndrome) ([facility]) 11/19/2024 9:45 AM CDT Lab [address] [place] [address] MDS (myelodysplastic syndrome) ([facility]) 11/14/2024 10:00 AM CDT Infusion [address] [place] [address] Radha Brink RN 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); MDS (myelodysplastic syndrome) ([facility]) 11/14/2024 9:45 AM CDT Lab [address] [place] [address] MDS (myelodysplastic syndrome) ([facility]) 11/14/2024 Orders Only [facility] [address] [place] [address] Office [facility] [address] [place] [address] Chalino Chapa MD 11/12/2024 Telephone [facility] [address] [place] [address] Medical Office [facility] [address] [place] [address] Theresa Gutierres, ALBERT 11/11/2024 10:30 AM CDT Infusion [address] [place] [address] Emile Jackson, ALBERT Encounter for care related to Port-a-Cath (Primary Dx); Myelodysplastic syndrome (HCC); MDS (myelodysplastic syndrome) (HCC) 11/11/2024 10:15 AM CDT Office Visit [facility] [address] [place] [address] [facility] [address] [place] [address] Chalino Chapa MD MDS (myelodysplastic syndrome) (HCC) (Primary Dx); Myelodysplastic syndrome (HCC) 11/11/2024 9:45 AM CDT Lab [address] [place] [address] Myelodysplastic syndrome (HCC); MDS (myelodysplastic syndrome) (HCC); Chronic anemia 10/28/2024 Orders Only [facility] [address] [place] [address] Office [facility] [address] [place] [address] Chalino Chapa MD MDS (myelodysplastic syndrome) (HCC) (Primary Dx); Chronic anemia 10/21/2024 9:00 AM CDT Infusion [address] [place] [address] MDS (myelodysplastic syndrome) (HCC) 10/21/2024 8:45 AM CDT Office Visit [facility] [address] [place] [address] Office [facility] [address] [place] [address] iMlla Armenta, CLAUDIA Myelodysplastic syndrome (HCC) (Primary Dx); MDS (myelodysplastic syndrome) (HCC) 10/21/2024 8:15 AM CDT Lab [address] [place] [address] MDS (myelodysplastic syndrome) (HCC) 10/17/2024 12:30 PM CDT Infusion [address] [place] [address] 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); MDS (myelodysplastic syndrome) (HCC); Encounter for care related to Port-a-Cath 10/17/2024 11:15 AM CDT Lab [address] [place] [address] MDS (myelodysplastic syndrome) (HCC) 10/17/2024 Orders Only [facility] [address] [place] [address] Medical Office [facility] [address] [place] [address] Chalino Chapa MD MDS (myelodysplastic syndrome) (HCC) (Primary Dx); Anemia in neoplastic disease 10/14/2024 8:30 AM CDT Infusion [address] [place] [address] MDS (myelodysplastic syndrome) (HCC) 10/14/2024 8:00 AM CDT Lab [address] [place] [address] MDS (myelodysplastic syndrome) (HCC) 10/14/2024 8:00 AM CDT Office Visit [facility] [address] [place] [address] Medical Office [facility] [address] [place] [address] Chalino Chapa MD MDS (myelodysplastic syndrome) (HCC) (Primary Dx); Interstitial lung disease (HCC) 10/14/[address] [place] [address] Yadi Gtz RN 10/11/2024 11:45 AM CDT Lab [address] [place] [address] MDS (myelodysplastic syndrome) (HCC) 10/11/2024 Telephone [facility] [address] [place] [address] Office [facility] [address] [place] [address] Radha Brink RN 10/11/2024 Telephone [facility] [address] [place] [address] Office [facility] [address] [place] [address] Clau Cabral, CLT 09/28/2024 7:21 PM CDT - 10/07/2024 3:45 PM CDT Hospital Encounter [place] [address] [address] [place] [address] Philip Bran MD Singh, MD Heidi Baeza Kevin, DO Mahasneh, Omar Ali Mohammed, MD [...] eft knee, current 06/06/2018 Added automatically from [employer] for surgery [id number] PONV (postoperative nausea a nd vomiting) Anxiety [...] = 0.6 oz pur e alcohol) [facility] Utilities Answer Date Recorded In the past 12 months has [employer], gas, oil, or water [employer] threatened to shut off services in your [...] often do you attend chur ch or caodaism services? Never 09/30/2024 Do you belong to any clubs o r organizations such as nondenominational groups, unions, fraternal or athletic groups, or [...] were you homeless or living in a fpc (including now)? No 10/02/2024 Personal Safety Answer Date Recorded Have you ever been in or are you currently in a harmful physical or emotional relationship or is someone making you feel afraid or unsafe? 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 Gender Identity Not on file Sexual Orientation [...] 1.6 oz) 12/31/2024 9:15 AM CDT Height 152.4 cm (5') 11/11/2024 10:57 AM CDT Body Mass Index 27.56 11/11/2024 10:57 AM CDT Plan of Treatment Health Maintenance Due Date Last Done Comments Depression Screening 1940 Osteoporosis Screening-Bone Density Scan 1941 Hepatitis B Screening 1959 Well Visit 65+ 2006 Covid-19 Vaccine (2024-05 6 season) 2024 01/23/2022, 09/24/2021, 02/01/2021, Additional history exists Influenza Vaccine (#1) 2024 , 01/07/2022, 02/01/2021, Additional history exists Fall Risk Assessment 10/07/2025 10/07/2024, 04/30/2024, 04/29/2024, Additional history exists DTaP/Tdap/Td Vaccine (2 - Td or Tdap) 09/08/2029 09/09/2019 Pneumococcal vaccine 65+ Completed 021, 05/18/2016, 04/03/2016, Additional history exists Zoster Vaccine Completed 03/29/2022, 10/02, 04/03/2016 Medical Devices Implanted Type Area Application Development Director Device Identifier Shelf Expiration Date Model / Serial / Lot [employer] Powerport Mri Airguard 8fr 1 Lumen Attachable Catheter Latex Free [id number] - [id number] Implanted:Qty: 1 on 11/20/2023 by Shade Red MD at [facility] Right: Chest Emre Tensas 09/30/2024 [id number] / / [id number] Procedures Procedure Name Priority Date/Time Associated Diagnosis Comments TRANSFUSE RED BLOOD CELLS Timed 01/06/2025 10:45 AM CDT Anemia in neoplastic disease MDS (myelodysplastic syndrome) (HCC) PREPARE RBC Routine 01/06/2025 10:34 AM CDT PREPARE RBC Routine 01/06/2025 10:08 AM CDT Anemia in neoplastic disease MDS (myelodysplastic syndrome) (HCC) CROSSMATCH Routine 01/06/2025 10:06 AM CDT ANTIBODY SCREEN Routine 01/06/2025 9:10 AM CDT Myelodysplastic syndrome (HCC) Chronic anemia ABO/RH Routine 01/06/2025 9:10 AM CDT Myelodysplastic syndrome (HCC) Chronic anemia TYPE AND SCREEN Routine 01/06/2025 9:10 AM CDT Myelodysplastic syndrome (HCC) Chronic anemia DIFFERENTIAL AUTO Routine 01/06/2025 9:1 0 AM CDT Myelodysplastic syndrome (HCC) Chronic anemia CBC WITH AUTO DIFFERENTIAL Routine 01/06/2025 9:10 AM CDT Myelodysplastic syndrome (HCC) Chronic anemia EGFR Routine 12/31/2024 8:55 AM CDT Myelodysplastic syndrome (HCC) Anemia in neoplastic disease COMPREHENSIVE METABOLIC PANEL Routine 12/31/2024 8:55 AM CDT Myelodysplastic syndrome (HCC) Anemia in neoplastic disease DIFFERENTIAL AUTO Routine 12/31/2024 8:5 5 AM CDT Myelodysplastic syndrome (HCC) Anemia in neoplastic disease CBC WITH AUTO DIFFERENTIAL Routine 12/31/2024 8:55 AM CDT Myelodysplastic syndrome (HCC) Anemia in neoplastic disease PREPARE RBC Routine 12/24/2024 1:23 PM CDT MDS (myelodysplastic syndrome) (HCC) Anemia in neoplastic disease TRANSFUSE RED BLOOD CELLS Timed 12/24/2024 1:13 PM CDT MDS (myelodysplastic syndrome) (HCC) Anemia in neoplastic disease PREPARE RBC Routine 12/24/2024 12:57 PM CDT CROSSMATCH Routine 12/24/2024 11:35 AM CDT MDS (myelodysplastic syndrome) (HCC) ANTIBODY SCREEN Routine 12/24/2024 11:35 AM CDT MDS (myelodysplastic syndrome) (HCC) ABO/RH Routine 12/24/2024 11:35 AM CDT MDS (myelodysplastic syndrome) (HCC) TYPE AND SCREEN Routine 12/24/2024 11:35 AM CDT MDS (myelodysplastic syndrome) (HCC) DIFFERENTIAL AUTO Routine 12/24/2024 11: 35 AM CDT Myelodysplastic syndrome (HCC) Anemia in neoplastic disease CBC WITH AUTO DIFFERENTIAL Routine 12/24/2024 11:35 AM CDT Myelodysplastic syndrome (HCC) Anemia in neoplastic disease TRANSFUSE RED BLOOD CELLS Timed 12/18/2024 12:20 PM CDT Anemia in neoplastic disease MDS (myelodysplastic syndrome) (HCC) PREPARE RBC Routine 12/18/2024 12:15 PM CDT PREPARE RBC Routine 12/18/2024 10:45 AM CDT Anemia in neoplastic disease MDS (myelodysplastic syndrome) (HCC) CROSSMATCH Routine 12/18/2024 10:20 AM CDT Myelodysplastic syndrome (HCC) MDS (myelodysplastic syndrome) (HCC) ANTIBODY SCREEN Routine 12/18/2024 10:20 AM CDT Myelodysplastic syndrome (HCC) MDS (myelodysplastic syndrome) (HCC) ABO/RH Routine 12/18/2024 10:20 AM CDT Myelodysplastic syndrome (HCC) MDS (myelodysplastic syndrome) (HCC) TYPE AND SCREEN Routine 12/18/2024 10:20 AM CDT Myelodysplastic syndrome (HCC) MDS (myelodysplastic syndrome) (HCC) DIFFERENTIAL AUTO Routine 12/18/2024 10: 20 AM CDT Myelodysplastic syndrome (HCC) Anemia in neoplastic disease CBC WITH AUTO DIFFERENTIAL Routine 12/18/2024 10:20 AM CDT Myelodysplastic syndrome (HCC) Anemia in neoplastic disease EGFR Routine 12/03/2024 8:30 AM CDT MDS [...] METABOLIC PANEL Routine 10/06/2024 5:10 AM CDT from Last 3 Months Results * Transfuse RBC (01/06/2025 12:34 PM CDT) Blood Chalino Chapa MD BLOOD TRANSFUSION ORDERAB LES Final Result * Prepare RBC (01/06/2025 10:34 AM CDT) Unit Number [id number] Product code [id number] [facility] ([place]) Blood Expiration Date [facility]) Product Blood Type (for scanning) 9500 [facility] ([place]) Product Blood Type ONEG [facility] ([place]) Dispense Status DISPENSED [facility] ([place]) us Chalino Chapa MD BLOOD BANK PRODUCT ORDERA BLES Final Result Performing Organization Address City/[facility]/ZIP Co de Phone Number SABRA ROGERS (COMBS) [address] [place] [address] * Prepare RBC: 1 Units (01/06/2025 10:08 AM CDT) Units requested 1 Comment:Testing performed by : [facility], [place], [address] Units requested Ready [facility] ([facility]) Comment:Testing performed by : [place], [address] Blood 01/06/2025 10:0 8 AM CDT 01/06/2025 10:08 AM CDT Narrative [facility] (COMBS) - 01/06/2025 10:08 AM CDT Are special requirements needed? (All products are leukoreduced and CMV- safe)->No us Chalino Chapa MD BLOOD BANK PRODUCT ORDERA BLES Final Result Performing Organization Address [facility] Co de Phone Number [facility] (COMBS) [address] [place] [address] * Crossmatch (01/06/2025 10:06 AM CDT) Pathologist [facility] Crossmatch Compatible SABRA Silva (COMBS) Unit number for crossmatch [id number] [facility] (COMBS) Blood 01/06/2025 10:0 6 AM CDT 01/06/2025 10:06 AM CDT us Chalino Chapa MD LAB BLOOD BANK TEST ORDER LAITH Final Result Performing Organization Address City/[facility]/ZIP Co de Phone Number [facility] (COMBS) 1 [facility] [place] [address] * (ABNORMAL) Differential, auto (01/06/2025 9:10 AM CDT) Neutrophil abs 1.18(L) 1.50 - 6.50 K/cumm [facility] ([place]) Comment:Testing performed by : [facility] [address], Medical Office [address], [place] [address] Imm gran abs 0.02 0.00 - 0.10 K/cumm [facility] ([place]) Comment:Testing performed by : [facility] [address], Medical Office [facility] [address], [place] [address] Lymphocyte abs 0.48(L) 0.80 - 3.30 K/cumm [facility] ([facility]) Comment:Testing performed by : [facility] [address], Medical Office [facility] [address], [place] [address] Monocyte abs 0.16(L) 0.20 - 0.80 K/cumm [facility] ([facility]) Comment:Testing performed by : [facility] [address], Medical Office [facility] [address], [place] [address] Eosinophil abs 0.11 0.00 - 0.50 K/cumm [facility] ([place]) Comment:Testing performed by : [facility] [address], Medical Office [facility] [address], [place] [address] Basophil abs 0.03 0.00 - 0.10 K/cumm [facility] ([facility]) Comment:Testing performed by : [facility] [address], Medical Office [facility] [address], [place] [address] Neutrophil pct 59.6 % [facility] ([facility]) Comment: Interpretive Data Percent cell count reference ranges are not reported, since discordance with absolute values may lead to misinterpretation of CBC data. Current Interpretive Data was last revised on 2022. Testing performed by: [facility] [address], Medical Office [facility] [address], [place] [address] Imm gran pct 1.0 % [facility] ([facility]) Comment: Interpretive Data Percent cell count reference ranges are not reported, since discordance with absolute values may lead to misinterpretation of CBC data. Current Interpretive Data was last revised on 2022. Testing performed by: [facility] [address], Medical Office [address], [place] [address] Lymphocyte pct 24.2 % [facility] ([place]) Comment: Interpretive Data Percent cell count reference ranges are not reported, since discordance with absolute values may lead to misinterpretation of CBC data. Current Interpretive Data was last revised on 2022. Testing performed by: [facility] [address], Medical Office [facility] [address], [place] [address] Monocyte pct 8.1 % [facility] ([place]) Comment: Interpretive Data Percent cell count reference ranges are not reported, since discordance with absolute values may lead to misinterpretation of CBC data. Current Interpretive Data was last revised on 2022. Testing performed by: [facility] [address], Medical Office [facility] [address], [place] [address] Eosinophil pct 5.6 % [facility] ([place]) Comment: Interpretive Data Percent cell count reference ranges are not reported, since discordance with absolute values may lead to misinterpretation of CBC data. Current Interpretive Data was last revised on 2022. Testing performed by: [facility] [address], Medical Office [facility] B [facility] [address], [place] [address] Basophil pct 1.5 % [facility] ([place]) Comment: Interpretive Data Percent cell count reference ranges are not reported, since discordance with absolute values may lead to misinterpretation of CBC data. Current Interpretive Data was last revised on 2022. Testing performed by: [facility] [address], Medical Office [facility] B [facility] [address], [place] [address] Blood 01/06/2025 9:10 AM CDT 01/06/2025 9:14 AM CDT us Chalino Chapa MD LAB BLOOD ORDERABLES Aylin tano Result [facility] ([place]) 1 [facility] [place] [address] * (ABNORMAL) CBC with auto differential (01/06/2025 9:10 AM CDT) WBC 1.98(L) 3.80 - 9.90 K/cumm [facility] ([place]) Comment:Testing performed by : [facility] [address], Medical [address], [place] [address] Hgb 7.1(L) 11.9 - 15.5 g/dL [facility] ([place]) Comment:Testing performed by : [facility] [address], Medical Office [address], [place] [address] Hct 21.9(L) 35.6 - 45.5 % [facility] ([place]) Comment:Testing performed by : [facility] [address], Medical Office [facility] [address], [place] [address] Plt 154 150 - 400 K/cumm [facility] ([place]) Comment:Testing performed by : [facility] [address], Medical Office [facility] [address], [place] [address] MPV 11.2 9.1 - 12.3 fL [facility] ([place]) Comment:Testing performed by : [facility] [address], Medical Office [facility] [address], [place] [address] RBC 1.92(L) 3.90 - 5.20 M/cumm [facility] ([place]) Comment:Testing performed by : [facility] [address], Medical Office [facility] [address], [place] [address] MCV 114.1(H) 81.3 - 96.4 fL [facility] ([place]) Comment:Testing performed by : [facility] [address], Medical Office [facility] [address], [place] [address] MCH 37.0(H) 27.1 - 33.3 pg [facility] (MAURICIO) Comment:Testing performed by : [facility] [address], Medical Office [address], [place] [address] MCHC 32.4 32.3 - 35.7 g/dL [facility] (MAURICIO) Comment:Testing performed by : [facility] [address], Medical Office [facility] [address], [place] [address] RDW CV 21.4(H) 11.1 - 14.9 % [facility] (MAURICIO) Comment:Testing performed by : [facility] [address], Medical Office [address], [place] [address] RDW SD 88.7(H) 35.7 - 48.1 fL SABRA ROGERS (COMBS) Comment:Testing performed by : [facility] [address], Medical Office [address], [place] [address] Blood 01/06/2025 9:10 AM CDT 01/06/2025 9:14 AM CDT Narrative SABRA ROGERS (COMBS) - 01/06/2025 9:17 AM CDT 01/07, 01/14, 01/21, 01/28 us Chalino Chapa MD LAB BLOOD ORDERABLES Aylin l Result SABRA ROGERS (COMBS) [address] [place] [address] [place] [address] * ABO/Rh (01/06/2025 9:10 AM CDT) ABO/Rh O Positive Comment:Testing performed by : [facility], [facility], [place], [address] Blood 01/06/2025 9:10 AM CDT 01/06/2025 9:26 AM CDT Narrative SABRA ROGERS (COMBS) - 01/06/2025 10:04 AM CDT 01/07, 01/14, 01/21, 01/28 Has the patient had Daratumumab or Isatuximab in the past 6 months?->Unknown us Chalino Chapa MD LAB BLOOD BANK TEST ORDER LAITH Final Result SABRA ROGERS (COMBS) 1 [facility] [place] [address] * Antibody screen (01/06/2025 9:10 AM CDT) Rivera, indirect, Gel Interpretation Negative ABSC Comment:Testing performed by : [facility], [place], [address] Blood 01/06/2025 9:10 AM CDT 01/06/2025 9:26 AM CDT Narrative SABRA ROGERS (COMBS) - 01/06/2025 10:04 AM CDT 01/07, 01/14, 01/21, 01/28 Has the patient had Daratumumab or Isatuximab in the past 6 months?->Unknown us Chalino Chapa MD LAB BLOOD BANK TEST ORDER LAITH Final Result SABRA ROGERS (COMBS) 1 [facility] [place] [address] * eGFR (12/31/2024 8:55 AM CDT) eGFR >90 >=60 mL/min/1. 73 [...] was last reviewed 2021. Testing performed by: [facility], [facility], [place], [address] Blood 12/31/2024 8:55 AM CDT 12/31/2024 4:08 PM CDT us Chalino Chapa MD LAB BLOOD ORDERABLES Aylin l Result SABRA ROGERS (COMBS) 1 [facility] [place] [address] * (ABNORMAL) Differential, auto (12/31/2024 8:55 AM CDT) Neutrophil abs 1.01(L) 1.50 - 6.50 K/cumm [facility] (COMBS) Comment:Testing performed by : [facility] [address], Medical Office [facility] B [facility] [address], [place] [address] Imm gran abs 0.00 0.00 - 0.10 K/cumm [facility] (COMBS) Comment:Testing performed by : [facility] [address], Medical Office [facility] [address], [place] [address] Lymphocyte abs 0.39(L) 0.80 - 3.30 K/cumm [facility] (COMBS) Comment:Testing performed by : [facility] [address], Medical Office [facility] [address], [place] [address] Monocyte abs 0.14(L) 0.20 - 0.80 K/cumm [facility] (COMBS) Comment:Testing performed by : [facility] [address], Medical Office [facility] [address], [place] [address] Eosinophil abs 0.04 0.00 - 0.50 K/cumm [facility] (COMBS) Comment:Testing performed by : [facility] [address], Medical Office [facility] [address], [place] [address] Basophil abs 0.02 0.00 - 0.10 K/cumm [facility] (COMBS) Comment:Testing performed by : [facility] [address], Medical Office [facility] [address], [place] [address] Neutrophil pct 63.0 % [facility] R [facility] (COMBS) Comment: Interpretive Data Percent cell count reference ranges are not reported, since discordance with absolute values may lead to misinterpretation of CBC data. Current Interpretive Data was last revised on 2022. Testing performed by: [facility] [address], Medical Office [facility] B [facility] [address], [place] [address] Imm gran pct 0.0 % [facility] (COMBS) Comment: Interpretive Data Percent cell count reference ranges are not reported, since discordance with absolute values may lead to misinterpretation of CBC data. Current Interpretive Data was last revised on 2022. Testing performed by: [facility] [address], Medical Office [facility] B [facility] [address], [place] [address] Lymphocyte pct 24.4 % [facility] ([place]URICIO) Comment: Interpretive Data Percent cell count reference ranges are not reported, since discordance with absolute values may lead to misinterpretation of CBC data. Current Interpretive Data was last revised on 2022. Testing performed by: [facility] [address], Medical Office [facility] B [facility] [address], [place] [address] Monocyte pct 8.8 % [facility] ([place]UR[place]IO) Comment: Interpretive Data Percent cell count reference ranges are not reported, since discordance with absolute values may lead to misinterpretation of CBC data. Current Interpretive Data was last revised on 2022. Testing performed by: [facility] [address], Medical Office [facility] B [facility] [address], [place] [address] Eosinophil pct 2.5 % [facility] (MAURICIO) Comment: Interpretive Data Percent cell count reference ranges are not reported, since discordance with absolute values may lead to misinterpretation of CBC data. Current Interpretive Data was last revised on 2022. Testing performed by: [facility] [address], Medical Office [facility] B [facility] [address], [place] [address] Basophil pct 1.3 % [facility] (MAURICIO) Comment: Interpretive Data Percent cell count reference ranges are not reported, since discordance with absolute values may lead to misinterpretation of CBC data. Current Interpretive Data was last revised on 2022. Testing performed by: [facility] [address], Medical Office [facility] B [facility] [address], [place] [address] Blood 12/31/2024 8:55 AM CDT 12/31/2024 9:02 AM CDT us Chalino Chapa MD LAB BLOOD ORDERABLES Aylin freedman Result SABRA ROGERS (MAURICIO) 1 [facility] Department [place] [address] * (ABNORMAL) CBC with auto differential (12/31/2024 8:55 AM CDT) WBC 1.60(L) 3.80 - 9.90 K/cumm [facility] (MAURICIO) Comment:Testing performed by : [facility] [address], Medical Office [address], [place] [address] Hgb 8.0(L) 11.9 - 15.5 g/dL [facility] (MAURICIO) Comment:Testing performed by : [facility] [address], Medical Office [address], [place] [address] Hct 24.3(L) 35.6 - 45.5 % [facility] (MAURICIO) Comment:Testing performed by : [facility] [address], Medical Office [facility] [address], [place] [address] Plt 169 150 - 400 K/cumm [facility] (MAURICIO) Comment:Testing performed by : [facility] [address], Medical Office [facility] [address], [place] [address] MPV 10.6 9.1 - 12.3 fL [facility] (MAURICIO) Comment:Testing performed by : [facility] [address], Medical Office [facility] [address], [place] [address] RBC 2.14(L) 3.90 - 5.20 M/cumm [facility] (MAURICIO) Comment:Testing performed by : [facility] [address], Medical Office [facility] [address], [place] [address] MCV 113.6(H) 81.3 - 96.4 fL [facility] (MAURICIO) Comment:Testing performed by : [facility] [address], Medical Office [address], [place] [address] MCH 37.4(H) 27.1 - 33.3 pg [facility] (MAURICIO) Comment:Testing performed by : [facility] [address], Medical Office [address], [place] [address] MCHC 32.9 32.3 - 35.7 g/dL [facility] (MAURICIO) Comment:Testing performed by : [facility] [address], Medical Office [address], [place] [address] RDW CV 21.1(H) 11.1 - 14.9 % [facility] (MAURICIO) Comment:Testing performed by : [facility] [place] [address], Medical Office [facility] [address], [place] [address] RDW SD 88.1(H) 35.7 - 48.1 fL [facility] (MAURICIO) Comment:Testing performed by : [facility] [address], Medical Office [facility] [address], [place] [address] Blood 12/31/2024 8:55 AM CDT 12/31/2024 9:02 AM CDT Narrative [facility] ([place]UR[place]IO) - 12/31/2024 9:05 AM CDT Cbc 12/10, 12/17, 12/24, AND 12/[address] Chapa Chalino Chapa MD LAB BLOOD ORDERABLES Aylin l Result [facility] (MAURICIO) 1 [facility] Department [place] [address] * (ABNORMAL) Comprehensive metabolic panel (12/31/2024 8:55 AM CDT) Sodium 139 135 - 145 mmol/L [facility] ([place]IO) Potassium, pl 4.0 3.3 - 4.9 mmol/L [facility] ([place]IO) Chloride 99 97 - 110 mmol/L [facility] ([place]IO) CO2 29 22 - 32 mmol/L [facility] ([place]IO) Anion gap 11 2 - 15 mmol/L [facility] ([place]UR[place]IO) BUN 11 6 - 25 mg/dL [facility] ([place]IO) Creatinine 0.54(L) 0.60 - 1.10 mg/dL [facility] (MAURICIO) Glucose 174 70 - 199 mg/dL [facility] (MAURICIO) [...] 10.3 mg/dL [facility] ([place]IO) Bilirubin, total 0.7 0.1 - 1.2 mg/dL [facility] ([place]IO) Protein, pl 6.2(L) 6.5 - 8.5 g/dL [facility] ([place]IO) Albumin 4.3 3.5 - 5.0 g/dL [facility] ([place]UR[place]IO) Alk phos 58 40 - 130 Units/L [facility] ([place]UR[place]IO) ALT 64(H) 7 - 45 Units/L [facility] (MAURICIO) AST 28 10 - 45 Units/L [facility] (MAURICIO) Blood 12/31/2024 8:55 AM CDT 12/31/2024 4:08 PM CDT us Chalino Chapa MD LAB BLOOD ORDERABLES Aylin l Result [facility] (MAURICIO) [address] [place] [address] Department [place] [address] * Transfuse RBC (12/24/2024 2:50 PM CDT) Blood us Chalino Chapa MD BLOOD TRANSFUSION ORDERAB LES Final Result * Prepare RBC: 1 Units (12/24/2024 1:23 PM CDT) Units requested 1 Comment:Testing performed by : [place], [address] Units requested Ready EMMY B[facility]OM [facility] (MAURICIO) Comment:Testing performed by : [place], [address] Blood 12/24/2024 1:23 PM CDT 12/24/2024 1:23 PM CDT Narrative [facility] (MAURICIO) - 12/24/2024 1:28 PM CDT Are special requirements needed? (All products are leukoreduced and CMV- safe)->No us Chalino Chapa MD BLOOD BANK PRODUCT ORDERA BLES Final Result SABRA ROGERS (MAURICIO) 1 [facility] Department [place] [address] * Prepare RBC (12/24/2024 12:57 PM CDT) Unit Number [id number] Product code [id number] [facility] (MAURICIO) Blood Expiration Date [id number] [facility] (MAURICIO) Product Blood Type (for scanning) 5100 [facility] (MAURICIO) Product Blood Type OPOS [facility] (MAURICIO) Dispense Status DISPENSED [facility] (MAURICIO) us Chalino Chapa MD BLOOD BANK PRODUCT ORDERA BLES Final Result Performing Organization Address City/[facility]/ZIP Co de Phone Number SABRA ROGERS (MAURICIO) 1 [facility] Department [place] [address] * (ABNORMAL) Differential, auto (12/24/2024 11:35 AM CDT) Neutrophil abs 1.01(L) 1.50 - 6.50 K/cumm [facility] (COMBS) Comment:Testing performed by : [facility] [address], Medical Office [facility] [address], [place] [address] Imm gran abs 0.02 0.00 - 0.10 K/cumm [facility] (MAURICIO) Comment:Testing performed by : [facility] [address], Medical Office [facility] [address], [place] [address] Lymphocyte abs 0.74(L) 0.80 - 3.30 K/cumm [facility] (MAURICIO) Comment:Testing performed by : [facility] [address], Medical Office [facility] [address], [place] [address] Monocyte abs 0.14(L) 0.20 - 0.80 K/cumm [facility] (MAURICIO) Comment:Testing performed by : [facility] [address], Medical Office [address], [place] [address] Eosinophil abs 0.02 0.00 - 0.50 K/cumm [facility] (MAURICIO) Comment:Testing performed by : [facility] [address], Medical Office [address], [place] [address] Basophil abs 0.03 0.00 - 0.10 K/cumm [facility] (MAURICIO) Comment:Testing performed by : [facility] [address], Medical Office [facility] [address], [place] [address] Neutrophil pct 51.6 % [facility] (MAURICIO) Comment: Interpretive Data Percent cell count reference ranges are not reported, since discordance with absolute values may lead to misinterpretation of CBC data. Current Interpretive Data was last revised on 2022. Testing performed by: [facility] [address], Medical Office [facility] [address], [place] [address] Imm gran pct 1.0 % [facility] (COMBS) Comment: Interpretive Data Percent cell count reference ranges are not reported, since discordance with absolute values may lead to misinterpretation of CBC data. Current Interpretive Data was last revised on 2022. Testing performed by: [facility] [address], Medical Office [facility] [address], [place] [address] Lymphocyte pct 37.8 % [facility] ([place]) Comment: Interpretive Data Percent cell count reference ranges are not reported, since discordance with absolute values may lead to misinterpretation of CBC data. Current Interpretive Data was last revised on 2022. Testing performed by: [facility] [address], Medical Office [facility] [address], [place] [address] Monocyte pct 7.1 % [facility] (MAURICIO) Comment: Interpretive Data Percent cell count reference ranges are not reported, since discordance with absolute values may lead to misinterpretation of CBC data. Current Interpretive Data was last revised on 2022. Testing performed by: [facility] [address], Medical Office [address], [place] [address] Eosinophil pct 1.0 % [facility] (MAURICIO) Comment: Interpretive Data Percent cell count reference ranges are not reported, since discordance with absolute values may lead to misinterpretation of CBC data. Current Interpretive Data was last revised on 2022. Testing performed by: [facility] [address], Medical Office [facility] [address], [place] [address] Basophil pct 1.5 % SABRA ROGERS (MAURICIO) Comment: Interpretive Data Percent cell count reference ranges are not reported, since discordance with absolute values may lead to misinterpretation of CBC data. Current Interpretive Data was last revised on 2022. Testing performed by: [facility] [address], Medical Office [facility] [address], [place] [address] Blood 12/24/2024 11:3 5 AM CDT 12/24/2024 11:36 AM CDT us Chalino Chapa MD LAB BLOOD ORDERABLES Aylin freedman Result SABRA ROGERS (MAURICIO) 1 [facility] Department [place] [address] * (ABNORMAL) CBC with auto differential (12/24/2024 11:35 AM CDT) WBC 1.96(L) 3.80 - 9.90 K/cumm SABRA ROGERS (MAURICIO) Comment:Testing performed by : [facility] [address], Medical Office [facility] [address], [place] [address] Hgb 7.5(L) 11.9 - 15.5 g/dL SABRA ROGERS (MAURICIO) Comment:Testing performed by : [facility] [address], Medical Office [facility] [address], [place] [address] Hct 22.6(L) 35.6 - 45.5 % SABRA ROGERS (MAURICIO) Comment:Testing performed by : [facility] [address], Medical Office [facility] [address], [place] [address] Plt 168 150 - 400 K/cumm SABRA ROGERS (MAURICIO) Comment:Testing performed by : [facility] [address], Medical Office [facility] [address], [place] [address] MPV 11.2 9.1 - 12.3 fL [facility] ([place]URICIO) Comment:Testing performed by : [facility] [address], Medical Office [facility] [address], [place] [address] RBC 1.96(L) 3.90 - 5.20 M/cumm [facility] ([place]URICIO) Comment:Testing performed by : [facility] [address], Medical Office [facility] B [facility] [address], [place] [address] MCV 115.3(H) 81.3 - 96.4 fL [facility] ([place]UR[place]IO) Comment:Testing performed by : [facility] [address], Medical Office [facility] [address], [place] [address] MCH 38.3(H) 27.1 - 33.3 pg [facility] (MAURICIO) Comment:Testing performed by : [facility] [address], Medical Office [facility] [address], [place] [address] MCHC 33.2 32.3 - 35.7 g/dL [facility] ([place]UR[place]IO) Comment:Testing performed by : [facility] [address], Medical Office [facility] [address], [place] [address] RDW CV 22.8(H) 11.1 - 14.9 % [facility] ([place]URICIO) Comment:Testing performed by : [facility] [address], Medical Office [facility] [address], [place] [address] RDW SD 94.4(H) 35.7 - 48.1 fL [facility] (MAURICIO) Comment:Testing performed by : [facility] [address], Medical Office [facility] B [facility] [address], [place] [address] Blood 12/24/2024 11:3 5 AM CDT 12/24/2024 11:36 AM CDT Narrative [facility] ([place]UR[place]IO) - 12/24/2024 11:38 AM CDT Cbc 12/10, 12/17, 12/24, AND 12/[address] Chapa us Chalino Chapa MD LAB BLOOD ORDERABLES Aylin tano Result [facility]RA [facility] (COMBS) [address] [place] [address] Department [place] [address] * ABO/Rh (12/24/2024 11:35 AM CDT) ABO/Rh O Positive Comment:Testing performed by : [facility], [place], [address] Blood 12/24/2024 11:3 5 AM CDT 12/24/2024 12:16 PM CDT Narrative [facility] ([facility] - 12/24/2024 12:43 PM CDT 11/19, 11/26, 12/03 Has the patient had Daratumumab or Isatuximab in the past 6 months?->Unknown Witnessed by Emile Jackson us Chalino Chapa MD LAB BLOOD BANK TEST ORDER LAITH Final Result Performing Organization Address [facility]/ZIP Co de Phone Number SABRA [facility] (COMBS) [address] [place] [address] Department [place] [address] * Crossmatch (12/24/2024 11:35 AM CDT) Crossmatch Compatible SABRA Ricardo (COMBS) Unit number for crossmatch [id number] [facility]RA [facility] (COMBS) Blood 12/24/2024 11:3 5 AM CDT 12/24/2024 12:16 PM CDT us Chalino Chapa MD LAB BLOOD BANK TEST ORDER LAITH Final Result SABRA [facility] (COMBS) [address] [place] [address] [place] [address] * Antibody screen (12/24/2024 11:35 AM CDT) Rivera, indirect, Gel Interpretation Negative ABSC Comment:Testing performed by : [facility], [facility], [place], [address] Blood 12/24/2024 11:3 5 AM CDT 12/24/2024 12:16 PM CDT Narrative SABRA ROGERS (MAURICIO) - 12/24/2024 12:49 PM CDT 11/19, 11/26, 12/03 Has the patient had Daratumumab or Isatuximab in the past 6 months?->Unknown us Chalino Chapa MD LAB BLOOD BANK TEST ORDER LAITH Final Result SABRA ROGERS (MAURICIO) [address] [place] [address] Department [place] [address] * Transfuse RBC (12/18/2024 2:40 PM CDT) Blood us Michael Terry MD BLOOD TRANSFUSION ORDERABLES Final Result * Prepare RBC (12/18/2024 12:15 PM CDT) Unit Number [id number] Product code [id number] [facility] ([place]IO) Blood Expiration Date [facility] ([place]) Product Blood Type (for scanning) 5100 [facility] ([place]IO) Product Blood Type OPOS [facility] ([place]) Dispense Status DISPENSED [facility] ([place]IO) us Chalino Chapa MD BLOOD BANK PRODUCT ORDERA BLES Final Result Performing Organization Address City/[facility]/ZIP Co de Phone Number SABRA ROGERS (MAURICIO) [address] [place] [address] Department [place] [address] * Prepare RBC: 1 Units (12/18/2024 10:45 AM CDT) Units requested 1 Comment:Testing performed by : [place], [address] Units requested Ready EMMY ROGERS (MAURICIO) Comment:Testing performed by : [place], [address] Blood 12/18/2024 10:4 5 AM CDT 12/18/2024 11:50 AM CDT Narrative [facility] ([place]UR[place]IO) - 12/18/2024 11:51 AM CDT Are special requirements needed? (All products are leukoreduced and CMV- safe)->No Michael Terry MD BLOOD BANK PRODUCT ORDERABLES Final Result [facility] ([place]URICIO) 1 [facility] Department [place] [address] * (ABNORMAL) Differential, auto (12/18/2024 10:20 AM CDT) Neutrophil abs 1.27(L) 1.50 - 6.50 K/cumm [facility] ([place]IO) Comment:Testing performed by : [facility] [address], Medical Office [facility] [address], [place] [address] Imm gran abs 0.01 0.00 - 0.10 K/cumm [facility] ([place]URICIO) Comment:Testing performed by : [facility] [address], Medical Office [facility] [address], [place] [address] Lymphocyte abs 0.46(L) 0.80 - 3.30 K/cumm [facility] ([place]UR[place]IO) Comment:Testing performed by : [facility] [address], Medical Office [facility] [address], [place] [address] Monocyte abs 0.15(L) 0.20 - 0.80 K/cumm [facility] ([place]UR[place]IO) Comment:Testing performed by : [facility] [address], Medical Office [facility] [address], [place] [address] Eosinophil abs 0.02 0.00 - 0.50 K/cumm [facility] ([place]UR[place]IO) Comment:Testing performed by : [facility] [address], Medical Office [facility] [address], [place] [address] Basophil abs 0.02 0.00 - 0.10 K/cumm [facility] ([place]UR[place]IO) Comment:Testing performed by : [facility] [address], Medical Office [facility] [address], [place] [address] Neutrophil pct 65.9 % [facility] ([place]UR[place]IO) Comment: Interpretive Data Percent cell count reference ranges are not reported, since discordance with absolute values may lead to misinterpretation of CBC data. Current Interpretive Data was last revised on 2022. Testing performed by: [facility] [address], Medical Office [address], [place] [address] Imm gran pct 0.5 % [facility] ([place]UR[place]IO) Comment: Interpretive Data Percent cell count reference ranges are not reported, since discordance with absolute values may lead to misinterpretation of CBC data. Current Interpretive Data was last revised on 2022. Testing performed by: [facility] [address], Medical Office [address], [place] [address] Lymphocyte pct 23.8 % [facility] ([place]UR[place]IO) Comment: Interpretive Data Percent cell count reference ranges are not reported, since discordance with absolute values may lead to misinterpretation of CBC data. Current Interpretive Data was last revised on 2022. Testing performed by: [facility] [address], Medical Office [address], [place] [address] Monocyte pct 7.8 % [facility] ([place]UR[place]IO) Comment: Interpretive Data Percent cell count reference ranges are not reported, since discordance with absolute values may lead to misinterpretation of CBC data. Current Interpretive Data was last revised on 2022. Testing performed by: [facility] [address], Medical Office [address], [place] [address] Eosinophil pct 1.0 % [facility] ([place]UR[place]IO) Comment: Interpretive Data Percent cell count reference ranges are not reported, since discordance with absolute values may lead to misinterpretation of CBC data. Current Interpretive Data was last revised on 2022. Testing performed by: [facility] [address], Medical Office [address], [place] [address] Basophil pct 1.0 % [facility] ([place]UR[place]IO) Comment: Interpretive Data Percent cell count reference ranges are not reported, since discordance with absolute values may lead to misinterpretation of CBC data. Current Interpretive Data was last revised on 2022. Testing performed by: [facility] [address], Medical Office [address], [place] [address] Blood 12/18/2024 10:2 0 AM CDT 12/18/2024 10:30 AM CDT Chalino Chapa MD LAB BLOOD ORDERABLES Aylin tano Result [facility] ([place]) 1 [facility] Department [place] [address] * (ABNORMAL) CBC with auto differential (12/18/2024 10:20 AM CDT) WBC 1.93(L) 3.80 - 9.90 K/cumm [facility] ([place]) Comment:Testing performed by : [facility] [address], Medical Office [facility] [address], [place] [address] Hgb 6.7(L) 11.9 - 15.5 g/dL [facility] ([place]) Comment:Testing performed by : [facility] [address], Medical Office [facility] [address], [place] [address] Hct 20.7(L) 35.6 - 45.5 % [facility] ([place]) Comment:Testing performed by : [facility] [address], Medical Office [facility] [address], [place] [address] Plt 152 150 - 400 K/cumm [facility] ([place]) Comment:Testing performed by : [facility] [address], Medical Office [facility] [address], [place] [address] MPV 11.1 9.1 - 12.3 fL [facility] ([place]) Comment:Testing performed by : [facility] [address], Medical Office [facility] [address], [place] [address] RBC 1.70(L) 3.90 - 5.20 M/cumm [facility] ([place]) Comment:Testing performed by : [facility] [address], Medical Office [facility] [address], [place] [address] MCV 121.8(H) 81.3 - 96.4 fL [facility] ([place]) Comment:Testing performed by : [facility] [address], Medical Office [facility] [address], [place] [address] MCH 39.4(H) 27.1 - 33.3 pg [facility] ROGERS ([place]) Comment:Testing performed by : [facility] [address], Medical Office [address], [place] [address] MCHC 32.4 32.3 - 35.7 g/dL [facility] ROGERS ([place]) Comment:Testing performed by : [facility] [address], Medical Office [address], [place] [address] RDW CV 20.7(H) 11.1 - 14.9 % [facility] ROGERS ([place]) Comment:Testing performed by : [facility] [address], Medical Office [address], [place] [address] RDW SD 91.4(H) 35.7 - 48.1 fL [facility] ROG[facility] ([place]) Comment:Testing performed by : [facility] [address], Medical Office [address], [place] [address] Blood 12/18/2024 10:2 0 AM CDT 12/18/2024 10:30 AM CDT Narrative [facility] ROGERS ([place]) - 12/18/2024 10:33 AM CDT Cbc 12/10, 12/17, 12/24, AND 12/[address] Chapa Chalino Chapa MD LAB BLOOD ORDERABLES Aylin l Result [facility]RA ROGERS (COMBS) 1 [facility] Department [place] [address] * ABO/Rh (12/18/2024 10:20 AM CDT) ABO/Rh O Positive Comment:Testing performed by : [facility], [facility], [place], [address] Blood 12/18/2024 10:2 0 AM CDT 12/18/2024 11:04 AM CDT Narrative [facility] ROGERS ([place]) - 12/18/2024 11:45 AM CDT Has the patient had Daratumumab or Isatuximab in the past 6 months?->Unknown Milla Armenta PLISSE MACHINE OPERATOR LAB BLOOD BANK TEST ORDERA BLES Final Result Performing Organization Address City/[facility]/ZIP Co de Phone Number [facility]RA [facility] (COMBS) [address] [place] [phone] * Crossmatch (12/18/2024 10:20 AM CDT) Crossmatch Compatible SABRA Silva (COMBS) Unit number for crossmatch [id number] AM[facility] (COMBS) Blood 12/18/2024 10:2 0 AM CDT 12/18/2024 11:04 AM CDT Chalino Chapa MD LAB BLOOD BANK TEST ORDER LAITH Final Result Performing Organization Address [facility] Co de Phone Number [facility]RA [facility] (COMBS) [address] [place] [phone] * Antibody screen (12/18/2024 10:20 AM CDT) Rivera, indirect, Gel Interpretation Negative ABSC Comment:Testing performed by : [facility], [place], [address] Blood 12/18/2024 10:2 0 AM CDT 12/18/2024 11:04 AM CDT Narrative [facility] ([facility] - 12/18/2024 11:45 AM CDT Has the patient had Daratumumab or Isatuximab in the past 6 months?->Unknown Milla Armenta PLISSE MACHINE OPERATOR LAB BLOOD BANK TEST ORDERA BLES Final Result Performing Organization Address City/[facility]/ZIP Co de Phone Number [facility] (COMBS) [address] [place] [phone] * eGFR (12/03/2024 8:30 AM CDT) eGFR [...] was last reviewed 2021. Testing performed by: [place], [address] Blood 12/03/2024 8:30 AM CDT 12/03/2024 8:42 AM CDT us Chalino Chapa MD LAB BLOOD ORDERABLES Aylin l Result [facility]RA ROGERS (COMBS) 1 [facility] Department [place] [address] * (ABNORMAL) Differential, auto (12/03/2024 8:30 AM CDT) Neutrophil abs 0.88(L) 1.50 - 6.50 K/cumm Comment:Testing performed by : [place], [address] Imm gran abs 0.02 0.00 - 0.10 K/cumm [facility] (COMBS) Comment:Testing performed by : [place], [address] Lymphocyte abs 0.52(L) 0.80 - 3.30 K/cumm SABRA ROGERS (COMBS) Comment:Testing performed by : [facility], [place], [address] Monocyte abs 0.12(L) 0.20 - 0.80 K/cumm [facility] (COMBS) Comment:Testing performed by : [facility], [facility], [place], [address] Eosinophil abs 0.03 0.00 - 0.50 K/cumm [facility] (COMBS) Comment:Testing performed by : [facility], [facility], [place], [address] Basophil abs 0.01 0.00 - 0.10 K/cumm [facility] (COMBS) Comment:Testing performed by : [place], [address] Neutrophil pct 55.7 % [facility] R [facility] (COMBS) Comment: Interpretive Data Percent cell count reference ranges are not reported, since discordance with absolute values may lead to misinterpretation of CBC data. Current Interpretive Data was last revised on 2017. Testing performed by: [place], [address] Imm gran pct 1.3 % [facility] (COMBS) Comment: Interpretive Data Percent cell count reference ranges are not reported, since discordance with absolute values may lead to misinterpretation of CBC data. Current Interpretive Data was last revised on 2017. Testing performed by: [facility], [place], [address] Lymphocyte pct 32.9 % [facility] R [facility] (COMBS) Comment: Interpretive Data Percent cell count reference ranges are not reported, since discordance with absolute values may lead to misinterpretation of CBC data. Current Interpretive Data was last revised on 2017. Testing performed by: [place], [address] Monocyte pct 7.6 % [facility] (COMBS) Comment: Interpretive Data Percent cell count reference ranges are not reported, since discordance with absolute values may lead to misinterpretation of CBC data. Current Interpretive Data was last revised on 2017. Testing performed by: [place], [address] Eosinophil pct 1.9 % [facility] (COMBS) Comment: Interpretive Data Percent cell count reference ranges are not reported, since discordance with absolute values may lead to misinterpretation of CBC data. Current Interpretive Data was last revised on 2017. Testing performed by: [place], [address] Basophil pct 0.6 % [facility] (COMBS) Comment: Interpretive Data Percent cell count reference ranges are not reported, since discordance with absolute values may lead to misinterpretation of CBC data. Current Interpretive Data was last revised on 2017. Testing performed by: [place], [address] Blood 12/03/2024 8:30 AM CDT 12/03/2024 8:58 AM CDT us Chalino Chapa MD LAB BLOOD ORDERABLES Aylin freedman Result [facility] (COMBS) 1 [facility] Department [place] [address] * (ABNORMAL) CBC with auto differential (12/03/2024 8:30 AM CDT) WBC 1.58(L) 3.80 - 9.90 K/cumm Comment:Testing performed by : [place], [address] Hgb 8.1(L) 11.9 - 15.5 g/dL [facility] (COMBS) Comment:Testing performed by : [place], Hct 24.2(L) 35.6 - 45.5 % [facility] (COM[place]) Comment:Testing performed by : [place], Plt 156 150 - 400 K/cumm [facility] ([place]) Comment:Testing performed by : [place], MPV 11.6 9.1 - 12.3 fL [facility] ([place]) Comment:Testing performed by : [place], RBC 2.11(L) 3.90 - 5.20 M/cumm [facility] ([place]) Comment:Testing performed by : [place], MCV 114.7(H) 81.3 - 96.4 fL [facility] ([place]) Comment:Testing performed by : [place], [address] MCH 38.4(H) 27.1 - 33.3 pg [facility] (COMBS) Comment:Testing performed by : [facility], [facility], [place], MCHC 33.5 32.3 - 35.7 g/dL [facility] ([place]) Comment:Testing performed by : [facility], [place], [place], RDW CV 23.4(H) 11.1 - 14.9 % [facility] (COMBS) Comment:Testing performed by : [facility], [facility], [place], [place], RDW SD 94.7(H) 35.7 - 48.1 fL [facility] (COMBS) Comment:Testing performed by : [facility], [place], [address] NRBC abs 0.00 0.00 - 0.01 K/cumm [facility] (COMBS) Comment:Testing performed by : [facility], [place], [address] Morphologic Screen Results confirmed by manual morphology review. [facility] (COMBS) Comment:Testing performed by : [facility], [place], [address] Blood 12/03/2024 8:30 AM CDT 12/03/2024 8:58 AM CDT us Chalino Chapa MD LAB BLOOD ORDERABLES Aylin freedman Result [facility] 1 [facility] Department [place] [address] * (ABNORMAL) Comprehensive metabolic panel (12/03/2024 8:30 AM CDT) Sodium 140 135 - 145 mmol/L [facility] ([place]) Potassium, pl 4.2 3.3 - 4.9 mmol/L [facility] ([place]) Chloride 99 97 - 110 mmol/L [facility] ([place]) CO2 31 22 - 32 mmol/L [facility] ([place]) Anion gap 10 2 - 15 mmol/L [facility] ([place]) BUN 10 6 - 25 mg/dL [facility] ([place]) Creatinine 0.61 0.60 - 1.10 mg/dL [facility] ([place]) Glucose 129 70 - 199 mg/dL [facility] ([place]) [...] 8:30 AM CDT 12/03/2024 8:42 AM CDT Chalino Chapa MD LAB BLOOD ORDERABLES Aylin freedman Result [facility] 1 [facility] Department [place] [address] * (ABNORMAL) Blood smear review (11/29/2024 8:25 AM CDT) RBC morphology Consistent with RBC Indicies Comment:Testing performed by : [facility], [place], [address] Anisocytosis Moderate(A) [facility] R [facility] ([place]) Comment:Testing performed by : [place], [address] Microcytes 3-7/HPF(A) SABRA Silva (COMBS) Comment:Testing performed by : [facility], [facility], [place], [address] Macrocytes 3-7/HPF(A) SABRA PARKS (COMBS) Comment:Testing performed by : [facility], [facility], [place], [address] Elliptocytes 3-7/HPF(A) S[facility]RA ROGERS (COMBS) Comment:Testing performed by : [facility], [facility], [place], [address] Teardrop cells 3-7/HPF(A) EMMY BLOOM [facility] (COMBS) Comment:Testing performed by : [facility], [place], [address] Platelet estimate Adequate SABRA ROGERS (COMBS) Comment:Testing performed by : [facility], [place], [address] Blood 11/29/2024 8:25 AM CDT 11/29/2024 8:43 AM CDT us Chalino Chapa MD LAB BLOOD ORDERABLES Aylin freedman Result SABRA ROGERS (COMBS) [address] [place] [address] Department [place] [address] * (ABNORMAL) Differential, auto (11/29/2024 8:25 AM CDT) Neutrophil abs 1.31(L) 1.50 - 6.50 K/cumm Comment:Testing performed by : [facility], [facility], [place], [address] Imm gran abs 0.01 0.00 - 0.10 K/cumm S[facility]RA ROGERS (COMBS) Comment:Testing performed by : [facility], [place], [address] Lymphocyte abs 0.84 0.80 - 3.30 K/cumm SABRA ROGERS (COMBS) Comment:Testing performed by : [facility], [place], [address] Monocyte abs 0.18(L) 0.20 - 0.80 K/cumm SABRA ROGERS (COMBS) Comment:Testing performed by : [facility], [place], [address] Eosinophil abs 0.03 0.00 - 0.50 K/cumm [facility] (COMBS) Comment:Testing performed by : [facility], [facility], [place], [address] Basophil abs 0.01 0.00 - 0.10 K/cumm [facility] (COMBS) Comment:Testing performed by : [place], [address] Neutrophil pct 55.0 % [facility] (COMBS) Comment: Interpretive Data Percent cell count reference ranges are not reported, since discordance with absolute values may lead to misinterpretation of CBC data. Current Interpretive Data was last revised on 2017. Testing performed by: [place], [address] Imm gran pct 0.4 % [facility] (COMBS) Comment: Interpretive Data Percent cell count reference ranges are not reported, since discordance with absolute values may lead to misinterpretation of CBC data. Current Interpretive Data was last revised on 2017. Testing performed by: [facility], [facility], [place], [address] Lymphocyte pct 35.3 % [facility] (COMBS) Comment: Interpretive Data Percent cell count reference ranges are not reported, since discordance with absolute values may lead to misinterpretation of CBC data. Current Interpretive Data was last revised on 2017. Testing performed by: [place], [address] Monocyte pct 7.6 % [facility] (COMBS) Comment: Interpretive Data Percent cell count reference ranges are not reported, since discordance with absolute values may lead to misinterpretation of CBC data. Current Interpretive Data was last revised on 2017. Testing performed by: [place], [address] Eosinophil pct 1.3 % [facility] (COMBS) Comment: Interpretive Data Percent cell count reference ranges are not reported, since discordance with absolute values may lead to misinterpretation of CBC data. Current Interpretive Data was last revised on 2017. Testing performed by: [place], [address] Basophil pct 0.4 % [facility] (COMBS) Comment: Interpretive Data Percent cell count reference ranges are not reported, since discordance with absolute values may lead to misinterpretation of CBC data. Current Interpretive Data was last revised on 2017. Testing performed by: [place], [address] Blood 11/29/2024 8:25 AM CDT 11/29/2024 8:43 AM CDT us Chalino Chapa MD LAB BLOOD ORDERABLES Aylin freemdan Result [facility] (COMBS) 1 [facility] Department [place] [address] * (ABNORMAL) CBC with auto differential (11/29/2024 8:25 AM CDT) WBC 2.38(L) 3.80 - 9.90 K/cumm Comment:Testing performed by : [place], [address] Hgb 7.9(L) 11.9 - 15.5 g/dL [facility] (COMBS) Comment:Testing performed by : [place], Hct 24.1(L) 35.6 - 45.5 % [facility] (COMBS) Comment:Testing performed by : [place], Plt 158 150 - 400 K/cumm [facility] (COMBS) Comment:Testing performed by : [place], MPV 11.1 9.1 - 12.3 fL [facility] (COMBS) Comment:Testing performed by : [place], RBC 2.11(L) 3.90 - 5.20 M/cumm [facility] (COMBS) Comment:Testing performed by : [place], [address] MCV 114.2(H) 81.3 - 96.4 fL [facility] (COMBS) Comment:Testing performed by : [place], [address] MCH 37.4(H) 27.1 - 33.3 pg [facility] (COMBS) Comment:Testing performed by : [facility], [facility], [place], [address] MCHC 32.8 32.3 - 35.7 g/dL [facility] (COMBS) Comment:Testing performed by : [facility], [facility], [place], [address] RDW CV Not Measured 11.1 - 14.9 % [facility] (COMBS) Comment:Testing performed by : [facility], [facility], [place], [address] RDW SD Not Measured 35.7 - 48.1 fL [facility] (COMBS) Comment:Testing performed by : [facility], [place], [address] NRBC abs 0.00 0.00 - 0.01 K/cumm [facility] (COMBS) Comment:Testing performed by : [facility], [place], [address] Blood 11/29/2024 8:25 AM CDT 11/29/2024 8:43 AM CDT us Chalino Chapa MD LAB BLOOD ORDERABLES Aylin l Result [facility] SUE (COMBS) 1 [facility] Department [place] [address] * ABO/Rh (11/29/2024 8:25 AM CDT) ABO/Rh O Positive Comment:Testing performed by : [facility], [facility], [place], [address] Blood 11/29/2024 8:25 AM CDT 11/29/2024 8:40 AM CDT Narrative SABRA ROGERS (COMBS) - 11/29/2024 9:17 AM CDT Has the patient had Daratumumab or Isatuximab in the past 6 months?->No us Chalino Chapa MD LAB BLOOD BANK TEST ORDER LAITH Final Result [facility]RA ROGERS (COMBS) 1 [facility] Department [place] [address] * Antibody screen (11/29/2024 8:25 AM CDT) Rivera, indirect, Gel Interpretation Negative ABSC Comment:Testing performed by : [place], [address] Blood 11/29/2024 8:25 AM CDT 11/29/2024 8:40 AM CDT Narrative SABRA ROGERS (COMBS) - 11/29/2024 9:17 AM CDT Has the patient had Daratumumab or Isatuximab in the past 6 months?->No us Chalino Chapa MD LAB BLOOD BANK TEST ORDER LAITH Final Result [facility]RA ROGERS (COMBS) 1 [facility] Department [place] [address] * (ABNORMAL) CBC with auto differential (11/26/2024 9:50 AM CDT) Pathologist [facility] WBC 1.44(L) 3.80 - 9.90 K/cumm Comment:Testing performed by : [place], [address] Hgb 7.7(L) 11.9 - 15.5 g/dL [facility] ([place]) Comment:Testing performed by : [place], [address] Hct 24.4(L) 35.6 - 45.5 % [facility] ([place]) Comment:Testing performed by : [place], [address] Plt 146(L) 150 - 400 K/cumm [facility] ([place]) Comment:Testing performed by : [place], [address] MPV 11.0 9.1 - 12.3 fL [facility] ([place]) Comment:Testing performed by : [place], [address] RBC 2.13(L) 3.90 - 5.20 M/cumm [facility] ([place]) Comment:Testing performed by : [facility], [facility], [place], MCV 114.6(H) 81.3 - 96.4 fL [facility] (COMBS) Comment:Testing performed by : [facility], [place], MCH 36.2(H) 27.1 - 33.3 pg [facility] (COMBS) Comment:Testing performed by : [facility], [place], MCHC 31.6(L) 32.3 - 35.7 g/dL [facility] (COMBS) Comment:Testing performed by : [facility], [place], RDW CV 24.3(H) 11.1 - 14.9 % [facility] (COMBS) Comment:Testing performed by : [facility], [place], RDW SD 97.2(H) 35.7 - 48.1 fL [facility] (COMBS) Comment:Testing performed by : [facility], [place], NRBC abs 0.00 0.00 - 0.01 K/cumm [facility] (COMBS) Comment:Testing performed by : [facility], [place], Blood 11/26/2024 9:50 AM CDT 11/26/2024 10:13 AM CDT us Chalino Chapa MD LAB BLOOD ORDERABLES Aylin freedman Result [facility]RA ROGERS (COMBS) 1 [facility] Department [place] [address] * (ABNORMAL) Manual Differential (11/26/2024 9:50 AM CDT) Differential Manual Comment:Testing performed by : [facility], [place], Cells Counted 100 [facility] (COMBS) Comment:Testing performed by : [facility], [place], Neutrophil abs 0.81(L) 1.50 - 6.50 K/cumm [facility] (COMBS) Comment:Testing performed by : [facility], [facility], [place], [address] Imm gran abs 0.03 0.00 - 0.10 K/cumm [facility] (COMBS) Comment:Testing performed by : [facility], [facility], [place], [address] Lymphocyte abs 0.46(L) 0.80 - 3.30 K/cumm [facility] (COMBS) Comment:Testing performed by : [facility], [facility], [place], [address] Monocyte abs 0.04(L) 0.20 - 0.80 K/cumm [facility] (COMBS) Comment:Testing performed by : [facility], [facility], [place], [address] Eosinophil abs 0.10 0.00 - 0.50 K/cumm [facility] (COMBS) Comment:Testing performed by : [place], [address] Neutrophil pct 54.0 % [facility] (COMBS) Comment: Interpretive Data Percent cell count reference ranges are not reported, since discordance with absolute values may lead to misinterpretation of CBC data. Current Interpretive Data was last revised on 2017. Testing performed by: [place], [address] Lymphocyte pct 32.0 % [facility] (COMBS) Comment: Interpretive Data Percent cell count reference ranges are not reported, since discordance with absolute values may lead to misinterpretation of CBC data. Current Interpretive Data was last revised on 2017. Testing performed by: [facility], [place], [address] Monocyte pct 3.0 % [facility] (COMBS) Comment: Interpretive Data Percent cell count reference ranges are not reported, since discordance with absolute values may lead to misinterpretation of CBC data. Current Interpretive Data was last revised on 2017. Testing performed by: [facility], [place], [address] Eosinophil pct 7.0 % [facility] (COMBS) Comment: Interpretive Data Percent cell count reference ranges are not reported, since discordance with absolute values may lead to misinterpretation of CBC data. Current Interpretive Data was last revised on 2017. Testing performed by: [facility], [facility], [place], [address] Band Neutrophil pct 2.0 0.0 - 5.0 % SABRA ROGERS (MAURICIO) Comment:Testing performed by : [facility], [facility], [place], [address] Myelocyte pct 2.0(H) 0.0 - 0.0 % [facility] ([place]) Comment:Testing performed by : [facility], [facility], [place], [address] RBC morphology Consistent with RBC Indicies [facility] ([place]) Comment:Testing performed by : [facility], [facility], [place], [address] Platelet estimate Automated Count Confirmed SABRA ROGERS (COMBS) Comment:Testing performed by : [facility], [facility], [place], [address] Blood 11/26/2024 9:50 AM CDT 11/26/2024 10:13 AM CDT us Chalino Chapa MD LAB BLOOD ORDERABLES Aylin freedman Result SABRA SUE (COMBS) 1 [facility] Department [place] [address] * (ABNORMAL) Differential, auto (11/19/2024 10:10 AM CDT) Neutrophil abs 1.05(L) 1.50 - 6.50 K/cumm [facility] ([place]) Comment:Testing performed by : [facility] [address], Medical Office [facility] [address] [facility] [address], [place] [address] Imm gran abs 0.00 0.00 - 0.10 K/cumm [facility] ([place]) Comment:Testing performed by : [facility] [address], Medical Office [facility] [address] [facility] [address], [place] [address] Lymphocyte abs 0.50(L) 0.80 - 3.30 K/cumm [facility] ([place]) Comment:Testing performed by : [facility] [address], Medical Office [facility] [address], [place] [address] Monocyte abs 0.14(L) 0.20 - 0.80 K/cumm [facility] ([place]) Comment:Testing performed by : [facility] [address], Medical Office [address], [place] [address] Eosinophil abs 0.02 0.00 - 0.50 K/cumm [facility] ([place]) Comment:Testing performed by : [facility] [address], Medical Office [address], [place] [address] Basophil abs 0.02 0.00 - 0.10 K/cumm [facility] ([place]) Comment:Testing performed by : [facility] [address], Medical Office [address], [place] [address] Neutrophil pct 60.6 % [facility] ([place]URICIO) Comment: Interpretive Data Percent cell count reference ranges are not reported, since discordance with absolute values may lead to misinterpretation of CBC data. Current Interpretive Data was last revised on 2022. Testing performed by: [facility] [address], Medical Office [address], [place] [address] Imm gran pct 0.0 % [facility] (MAURICIO) Comment: Interpretive Data Percent cell count reference ranges are not reported, since discordance with absolute values may lead to misinterpretation of CBC data. Current Interpretive Data was last revised on 2022. Testing performed by: [facility] [address], Medical Office [facility] [address], [place] [address] Lymphocyte pct 28.9 % [facility] (MAURICIO) Comment: Interpretive Data Percent cell count reference ranges are not reported, since discordance with absolute values may lead to misinterpretation of CBC data. Current Interpretive Data was last revised on 2022. Testing performed by: [facility] [address], Medical Office [address], [place] [address] Monocyte pct 8.1 % [facility] (MAURICIO) Comment: Interpretive Data Percent cell count reference ranges are not reported, since discordance with absolute values may lead to misinterpretation of CBC data. Current Interpretive Data was last revised on 2022. Testing performed by: [facility] [address], Medical Office [address], [place] [address] Eosinophil pct 1.2 % [facility] ([place]UR[place]IO) Comment: Interpretive Data Percent cell count reference ranges are not reported, since discordance with absolute values may lead to misinterpretation of CBC data. Current Interpretive Data was last revised on 2022. Testing performed by: [facility] [address], Medical Office [facility] [address], [place] [address] Basophil pct 1.2 % [facility] (MAURICIO) Comment: Interpretive Data Percent cell count reference ranges are not reported, since discordance with absolute values may lead to misinterpretation of CBC data. Current Interpretive Data was last revised on 2022. Testing performed by: [facility] [address], Medical Office [facility] [address], [place] [address] Blood 11/19/2024 10:1 0 AM CDT 11/19/2024 10:10 AM CDT Chalino Chapa MD LAB BLOOD ORDERABLES Aylin l Result [facility] (MAURICIO) 1 [facility] Department [place] [address] * (ABNORMAL) CBC with auto differential (11/19/2024 10:10 AM CDT) WBC 1.73(L) 3.80 - 9.90 K/cumm [facility] ([place]URICIO) Comment:Testing performed by : [facility] [address], Medical Office [facility] [address], [place] [address] Hgb 8.4(L) 11.9 - 15.5 g/dL [facility] ([place]UR[place]IO) Comment:Testing performed by : [facility] [address], Medical Office [facility] [address], [place] [address] Hct 25.6(L) 35.6 - 45.5 % [facility] ([place]UR[place]IO) Comment:Testing performed by : [facility] [address], Medical Office [facility] [address], [place] [address] Plt 119(L) 150 - 400 K/cumm [facility] ([place]URICIO) Comment:Testing performed by : [facility] [address], Medical Office [address], [place] [address] MPV 10.6 9.1 - 12.3 fL [facility] ([place]IO) Comment:Testing performed by : [facility] [address], Medical Office [address], [place] [address] RBC 2.29(L) 3.90 - 5.20 M/cumm [facility] ([place]IO) Comment:Testing performed by : [facility] [address], Medical Office [address], [place] [address] MCV 111.8(H) 81.3 - 96.4 fL [facility] ([place]UR[place]IO) Comment:Testing performed by : [facility] [address], Medical Office [address], [place] [address] MCH 36.7(H) 27.1 - 33.3 pg [facility] ([place]IO) Comment:Testing performed by : [facility] [address], Medical Office [address], [place] [address] MCHC 32.8 32.3 - 35.7 g/dL [facility] ([place]IO) Comment:Testing performed by : [facility] [address], Medical Office [address], [place] [address] RDW CV 24.9(H) 11.1 - 14.9 % [facility] ([place]) Comment:Testing performed by : [facility] [address], Medical Office [address], [place] [address] RDW SD 96.8(H) 35.7 - 48.1 fL [facility] ([place]UR[place]IO) Comment:Testing performed by : [facility] [address], Medical Office [address], [place] [address] Blood 11/19/2024 10:1 0 AM CDT 11/19/2024 10:10 AM CDT Narrative [facility] ([place]) - 11/19/2024 10:13 AM CDT 11/19, 11/26, 12/03 us Chalino Chapa MD LAB BLOOD ORDERABLES Aylin l Result SABRA ROGERS (MAURICIO) 1 [facility] [place] [address] * Transfuse RBC (11/14/2024 1:18 PM CDT) Blood Chalino Chapa MD BLOOD TRANSFUSION ORDERAB LES Final Result * Prepare RBC: 1 Units (11/14/2024 11:24 AM CDT) Units requested 1 Comment:Testing performed by : [facility], [place], [address] Units requested Ready EMMY ROGERS (MAURICIO) Comment:Testing performed by : [facility], [place], [address] Blood 11/14/2024 11:2 4 AM CDT 11/14/2024 11:24 AM CDT Narrative S[facility]RA [facility]OGERS (MAURICIO) - 11/14/2024 11:24 AM CDT 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 (All products are leukoreduced and CMV- safe)->No Chalino Chapa MD BLOOD BANK PRODUCT ORDERA BLES Final Result Performing Organization Address [facility] Co de Phone Number SABRA ROGERS (MAURICIO) [address] [place] [address] [place] [address] * Prepare RBC (11/14/2024 11:22 AM CDT) Unit Number [id number] Product code [id number] [facility] (MAURICIO) Blood Expiration Date [id number] [facility] ([place]IO) Product Blood Type (for scanning) 5100 [facility] (MAURICIO) Product Blood Type OPOS [facility] (MAURICIO) Dispense Status DISPENSED [facility] (MAURICIO) Chalino Chapa MD BLOOD BANK PRODUCT ORDERA BLES Final Result SABRA ROGERS (MAURICIO) [address] Department [place] [address] * (ABNORMAL) Differential, auto (11/14/2024 9:50 AM CDT) Neutrophil abs 0.90(L) 1.50 - 6.50 K/cumm Comment:Testing performed by : [place], [address] Imm gran abs 0.01 0.00 - 0.10 K/cumm [facility] (COMBS) Comment:Testing performed by : [facility], [place], [address] Lymphocyte abs 0.46(L) 0.80 - 3.30 K/cumm [facility] (COMBS) Comment:Testing performed by : [facility], [place], [address] Monocyte abs 0.18(L) 0.20 - 0.80 K/cumm [facility] (COMBS) Comment:Testing performed by : [facility], [place], [address] Eosinophil abs 0.03 0.00 - 0.50 K/cumm [facility] (COMBS) Comment:Testing performed by : [place], [address] Basophil abs 0.01 0.00 - 0.10 K/cumm [facility] (COMBS) Comment:Testing performed by : [facility], [place], [address] Neutrophil pct 56.7 % [facility] (COMBS) Comment: Interpretive Data Percent cell count reference ranges are not reported, since discordance with absolute values may lead to misinterpretation of CBC data. Current Interpretive Data was last revised on 2017. Testing performed by: [facility], [place], [address] Imm gran pct 0.6 % [facility] (COMBS) Comment: Interpretive Data Percent cell count reference ranges are not reported, since discordance with absolute values may lead to misinterpretation of CBC data. Current Interpretive Data was last revised on 2017. Testing performed by: [facility], [place], [address] Lymphocyte pct 28.9 % [facility] (COMBS) Comment: Interpretive Data Percent cell count reference ranges are not reported, since discordance with absolute values may lead to misinterpretation of CBC data. Current Interpretive Data was last revised on 2017. Testing performed by: [place], [address] Monocyte pct 11.3 % [facility]RA ROGERS (COMBS) Comment: Interpretive Data Percent cell count reference ranges are not reported, since discordance with absolute values may lead to misinterpretation of CBC data. Current Interpretive Data was last revised on 2017. Testing performed by: [place], [address] Eosinophil pct 1.9 % [facility] (COMBS) Comment: Interpretive Data Percent cell count reference ranges are not reported, since discordance with absolute values may lead to misinterpretation of CBC data. Current Interpretive Data was last revised on 2017. Testing performed by: [place], [address] Basophil pct 0.6 % [facility]RA ROG[facility] (COMBS) Comment: Interpretive Data Percent cell count reference ranges are not reported, since discordance with absolute values may lead to misinterpretation of CBC data. Current Interpretive Data was last revised on 2017. Testing performed by: [place], [address] Blood 11/14/2024 9:50 AM CDT 11/14/2024 10:09 AM CDT us Chalino Chapa MD LAB BLOOD ORDERABLES Aylin freedman Result SABRA ROGERS (COMBS) [address] [place] [address] Department [place] [address] * (ABNORMAL) CBC with auto differential (11/14/2024 9:50 AM CDT) WBC 1.59(L) 3.80 - 9.90 K/cumm Comment:Testing performed by : [facility], [place], [address] Hgb 7.2(L) 11.9 - 15.5 g/dL SABRA ROGERS (COMBS) Comment:Testing performed by : [facility] [place], [place], Hct 22.7(L) 35.6 - 45.5 % [facility] (COMBS) Comment:Testing performed by : [place], [place], Plt 131(L) 150 - 400 K/cumm [facility] (COMBS) Comment:Testing performed by : [place], MPV 11.3 9.1 - 12.3 fL [facility] (COMBS) Comment:Testing performed by : [place], [place], RBC 2.05(L) 3.90 - 5.20 M/cumm [facility] (COMBS) Comment:Testing performed by : [place], MCV 110.7(H) 81.3 - 96.4 fL [facility] (COMBS) Comment:Testing performed by : [facility], [place], [place], MCH 35.1(H) 27.1 - 33.3 pg [facility] (COMBS) Comment:Testing performed by : [facility], [place], [place], MCHC 31.7(L) 32.3 - 35.7 g/dL [facility] (COMBS) Comment:Testing performed by : [facility], [place], [place], RDW CV Not Measured 11.1 - 14.9 % [facility] (COMBS) Comment:Testing performed by : [facility], [place], [place], RDW SD Not Measured 35.7 - 48.1 fL [facility] (COMBS) Comment:Testing performed by : [facility], [place], [address] Morphologic Screen Results confirmed by manual morphology review. [facility] (COMBS) Comment:Testing performed by : [facility], [place], [address] Blood 11/14/2024 9:50 AM CDT 11/14/2024 10:09 AM CDT us Chalino Chapa MD LAB BLOOD ORDERABLES Aylin l Result [facility] (COMBS) [address] [place] [address] [place] [address] * ABO/Rh (11/14/2024 9:50 AM CDT) ABO/Rh O Positive Comment:Testing performed by : [facility], [place], [address] Blood 11/14/2024 9:50 AM CDT 11/14/2024 10:12 AM CDT Narrative [facility]RA [facility] (COMBS) - 11/14/2024 10:58 AM CDT 11/19, 11/26, 12/03 Has the patient had Daratumumab or Isatuximab in the past 6 months?->Unknown us Chalino Chapa MD LAB BLOOD BANK TEST ORDER LAITH Final Result Performing Organization Address [facility] Co de Phone Number [facility]RA [facility] (COMBS) [address] [place] [address] Department [place] [address] * Crossmatch (11/14/2024 9:50 AM CDT) Crossmatch Compatible SABRA Silva (COMBS) Unit number for crossmatch [id number] [facility]RA [facility] (COMBS) Blood 11/14/2024 9:50 AM CDT 11/14/2024 10:12 AM CDT us Chalino Chapa MD LAB BLOOD BANK TEST ORDER LAITH Final Result [facility]RA [facility] (COMBS) [address] [place] [address] [place] [address] * Antibody screen (11/14/2024 9:50 AM CDT) Rivera, indirect, Gel Interpretation Negative ABSC Comment:Testing performed by : [facility], [facility], [place], [address] Blood 11/14/2024 9:50 AM CDT 11/14/2024 10:12 AM CDT Narrative SABRA ROGERS (COMBS) - 11/14/2024 10:58 AM CDT 11/19, 11/26, 12/03 Has the patient had Daratumumab or Isatuximab in the past 6 months?->Unknown Chalino Chapa MD LAB BLOOD BANK TEST ORDER LAITH Final Result Performing Organization Address [facility]/ZIP Co de Phone Number SABRA ROGERS (COMBS) 1 [facility] [place] [address] * (ABNORMAL) Erythropoietin (11/11/2024 11:30 AM CDT) Erythropoietin 781(H) 2.6 - 18.5 mIUnits/m L [facility] ref Lab Comment: Test Performed by: [facility] [address] [place] [address] Director Of Instrumental Music: Lloyd Olmstead Ph.D.; CLIA# [id number] Testing performed by: [place], [address] Blood 11/11/2024 11:3 0 AM CDT 11/11/2024 11:53 AM CDT Chalino Chapa MD LAB BLOOD ORDERABLES Aylin l Result Performing Organization Address [facility] Co de Phone Number SABRA ROGERS (COMBS) 1 [facility] [place] [address] [place] ref Lab * ABO/Rh (11/11/2024 11:30 AM CDT) ABO/Rh O Positive Comment:Testing performed by : [place], [address] Blood 11/11/2024 11:3 0 AM CDT 11/11/2024 11:53 AM CDT Narrative SABRA ROGERS (COMBS) - 11/11/2024 12:32 PM CDT Has the patient had Daratumumab or Isatuximab in the past 6 months?->Unknown us Chalino Chapa MD LAB BLOOD BANK TEST ORDER LAITH Final Result SABRA ROGERS (COMBS) 1 [facility] [place] [address] * Antibody screen (11/11/2024 11:30 AM CDT) Rivera, indirect, Gel Interpretation Negative ABSC Comment:Testing performed by : [facility], [place], [address] Blood 11/11/2024 11:3 0 AM CDT 11/11/2024 11:53 AM CDT [facility]ative [facility] - 11/11/2024 12:32 PM CDT Has the patient had Daratumumab or Isatuximab in the past 6 months?->Unknown Chalino Chapa MD LAB BLOOD BANK TEST ORDER LAITH Final Result Performing Organization Address [facility] Co de Phone Number SABRA ROGERS (COMBS) 1 [facility] [place] [address] * (ABNORMAL) Folate (11/11/2024 11:30 AM CDT) Pathologist [facility] Folic acid 3.5(L) >=5.0 ng/mL [facility] (COMBS) Blood 11/11/2024 11:3 0 AM CDT 11/11/2024 11:53 AM CDT Chalino Chapa MD LAB BLOOD ORDERABLES Aylin l Result SABRA ROGERS (COMBS) 1 [facility] [place] [address] * Vitamin B12 (11/11/2024 11:30 AM CDT) Vitamin B12 1,022 230 - 1,250 pg/mL [facility] (COMBS) Blood 11/11/2024 11:3 0 AM CDT 11/11/2024 11:53 AM CDT us Cahlino Chapa MD LAB BLOOD ORDERABLES Aylin freedman Result [facility] (COMBS) 1 [facility] Department [place] [address] * (ABNORMAL) Differential, auto (11/11/2024 10:45 AM CDT) Neutrophil abs 1.08(L) 1.50 - 6.50 K/cumm [facility] (COMBS) Comment:Testing performed by : [facility] [address], Medical Office [facility] [address], [place] [address] Imm gran abs 0.02 0.00 - 0.10 K/cumm [facility] (COMBS) Comment:Testing performed by : [facility] [address], Medical Office [facility] [address], [place] [address] Lymphocyte abs 0.55(L) 0.80 - 3.30 K/cumm [facility] (COMBS) Comment:Testing performed by : [facility] [address], Medical Office [facility] [address], [place] [address] Monocyte abs 0.17(L) 0.20 - 0.80 K/cumm [facility] (COMBS) Comment:Testing performed by : [facility] [address], Medical Office [facility] [address], [place] [address] Eosinophil abs 0.04 0.00 - 0.50 K/cumm [facility] (COMBS) Comment:Testing performed by : [facility] [address], Medical Office [facility] [address], [place] [address] Basophil abs 0.01 0.00 - 0.10 K/cumm [facility] (COMBS) Comment:Testing performed by : [facility] [address], Medical Office [facility] [address], [place] [address] Neutrophil pct 57.8 % [facility] (COMBS) Comment: Interpretive Data Percent cell count reference ranges are not reported, since discordance with absolute values may lead to misinterpretation of CBC data. Current Interpretive Data was last revised on 2022. Testing performed by: [facility] [address], Medical Office [facility] [address], [place] [address] Imm gran pct 1.1 % [facility] ([place]UR[place]IO) Comment: Interpretive Data Percent cell count reference ranges are not reported, since discordance with absolute values may lead to misinterpretation of CBC data. Current Interpretive Data was last revised on 2022. Testing performed by: [facility] [address], Medical Office [facility] [address], [place] [address] Lymphocyte pct 29.4 % [facility] ([place]UR[place]IO) Comment: Interpretive Data Percent cell count reference ranges are not reported, since discordance with absolute values may lead to misinterpretation of CBC data. Current Interpretive Data was last revised on 2022. Testing performed by: [facility] [address], Medical Office [facility] [address], [place] [address] Monocyte pct 9.1 % [facility] (MAURICIO) Comment: Interpretive Data Percent cell count reference ranges are not reported, since discordance with absolute values may lead to misinterpretation of CBC data. Current Interpretive Data was last revised on 2022. Testing performed by: [facility] [address], Medical Office [facility] [address], [place] [address] Eosinophil pct 2.1 % [facility] ([place]UR[place]IO) Comment: Interpretive Data Percent cell count reference ranges are not reported, since discordance with absolute values may lead to misinterpretation of CBC data. Current Interpretive Data was last revised on 2022. Testing performed by: [facility] [address], Medical Office [facility] [address], [place] [address] Basophil pct 0.5 % [facility] (MAURICIO) Comment: Interpretive Data Percent cell count reference ranges are not reported, since discordance with absolute values may lead to misinterpretation of CBC data. Current Interpretive Data was last revised on 2022. Testing performed by: [facility] [address], Medical Office [facility] [address], [place] [address] Blood 11/11/2024 10:4 5 AM CDT 11/11/2024 11:00 AM CDT us Milla Armenta PLISSE MACHINE OPERATOR LAB BLOOD ORDERABLES Final Result SABRA ROGERS (MAURICIO) 1 [facility] Department [place] [address] * (ABNORMAL) CBC with auto differential (11/11/2024 10:45 AM CDT) WBC 1.87(L) 3.80 - 9.90 K/cumm [facility] ([place]UR[place]IO) Comment:Testing performed by : [facility] [address], Medical Office [facility] [address], [place] [address] Hgb 7.2(L) 11.9 - 15.5 g/dL [facility] ([place]URICIO) Comment:Testing performed by : [facility] [address], Medical Office [facility] [address], [place] [address] Hct 22.5(L) 35.6 - 45.5 % [facility] (MAURICIO) Comment:Testing performed by : [facility] [address], Medical Office [facility] [address], [place] [address] Plt 111(L) 150 - 400 K/cumm [facility] (MAURICIO) Comment:Testing performed by : [facility] [address], Medical Office [facility] [address], [place] [address] MPV 11.0 9.1 - 12.3 fL [facility] (MAURICIO) Comment:Testing performed by : [facility] [address], Medical Office [facility] [address], [place] [address] RBC 2.03(L) 3.90 - 5.20 M/cumm [facility] (MAURICIO) Comment:Testing performed by : [facility] [address], Medical Office [address], [place] [address] MCV 110.8(H) 81.3 - 96.4 fL [facility] (MAURICIO) Comment:Testing performed by : [facility] [address], Medical Office [facility] [address], [place] [address] MCH 35.5(H) 27.1 - 33.3 pg [facility] (MAURICIO) Comment:Testing performed by : [facility] [address], Medical Office [facility] [address], [place] [address] MCHC 32.0(L) 32.3 - 35.7 g/dL SABRA ROGERS (MAURICIO) Comment:Testing performed by : [facility] [address], Medical Office [facility] [address], [place] [address] RDW CV 26.2(H) 11.1 - 14.9 % [facility]RA ROGERS (MAURICIO) Comment:Testing performed by : [facility] [address], Medical Office [facility] [address], [place] [address] RDW SD 96.8(H) 35.7 - 48.1 fL S[facility]RA ROGERS (MAURICIO) Comment:Testing performed by : [facility] [address], Medical Office [facility] [address], [place] [address] Blood 11/11/2024 10:4 5 AM CDT 11/11/2024 11:00 AM CDT Milla Armenta PLISSE MACHINE OPERATOR LAB BLOOD ORDERABLES Final Result S[facility]RA ROGERS (MAURICIO) 1 [facility] Department [place] [address] * eGFR (11/11/2024 8:11 AM CDT) eGFR [...] was last reviewed 2021. Testing performed by: [facility], [facility], [place], [address] Blood 11/11/2024 8:11 AM CDT 11/11/2024 11:14 AM CDT us Chalino Chapa MD LAB BLOOD ORDERABLES Aylin freedman Result [facility] (COMBS) 1 [facility] Department [place] [address] * (ABNORMAL) Comprehensive metabolic panel (11/11/2024 8:11 AM CDT) Sodium 138 135 - 145 mmol/L [facility] ([facility] Potassium, pl 3.9 3.3 - 4.9 mmol/L [facility] ([place]) Chloride 103 97 - 110 mmol/L [facility] ([place]) CO2 30 22 - 32 mmol/L [facility] ([place]) Anion gap 5 2 - 15 mmol/L [facility] ([place]) BUN 12 6 - 25 mg/dL [facility] ([place]) Creatinine 0.46(L) 0.60 - 1.10 mg/dL [facility] ([place]) Glucose 158 70 - 199 mg/dL [facility] (MAURICIO) Comment: Interpretive Data Fasting glucose [...] 9.6 8.5 - 10.3 mg/dL [facility] (COMBS) Bilirubin, total 0.8 0.1 - 1.2 mg/dL [facility] ([place]) Protein, pl 6.5 6.5 - 8.5 g/dL [facility] ([place]) Albumin 4.1 3.5 - 5.0 g/dL [facility] ([place]) Alk phos 42 40 - 130 Units/L [facility] ([place]) ALT 59(H) 7 - 45 Units/L [facility] ([place]IO) AST 24 10 - 45 Units/L [facility] ([place]) Blood 11/11/2024 8:11 AM CDT 11/11/2024 11:14 AM CDT us Chalino Chapa MD LAB BLOOD ORDERABLES Aylin l Result SABRA ROGERS (COMBS) [address] [place] [address] Department [place] [address] * eGFR (10/21/2024 8:25 AM CDT) eGFR [...] was last reviewed 2021. Testing performed by: [facility], [facility], [place], [address] Blood 10/21/2024 8:25 AM CDT 10/21/2024 8:36 AM CDT us Chalino Chapa MD LAB BLOOD ORDERABLES Aylin freedman Result [facility] (COMBS) 1 [facility] Department [place] [address] * (ABNORMAL) Differential, auto (10/21/2024 8:25 AM CDT) Neutrophil abs 0.69(L) 1.50 - 6.50 K/cumm Comment:Testing performed by : [facility], [place], [address] Imm gran abs 0.01 0.00 - 0.10 K/cumm [facility] (COMBS) Comment:Testing performed by : [place], [address] Lymphocyte abs 0.68(L) 0.80 - 3.30 K/cumm [facility] (COMBS) Comment:Testing performed by : [place], [address] Monocyte abs 0.16(L) 0.20 - 0.80 K/cumm [facility] (COMBS) Comment:Testing performed by : [facility], [place], [address] Eosinophil abs 0.00 0.00 - 0.50 K/cumm [facility] (COMBS) Comment:Testing performed by : [facility], [place], [address] Basophil abs 0.00 0.00 - 0.10 K/cumm [facility] (COMBS) Comment:Testing performed by : [place], [address] Neutrophil pct 44.8 % [facility] (COMBS) Comment: Interpretive Data Percent cell count reference ranges are not reported, since discordance with absolute values may lead to misinterpretation of CBC data. Current Interpretive Data was last revised on 2017. Testing performed by: [place], [address] Imm gran pct 0.6 % [facility] (COMBS) Comment: Interpretive Data Percent cell count reference ranges are not reported, since discordance with absolute values may lead to misinterpretation of CBC data. Current Interpretive Data was last revised on 2017. Testing performed by: [place], [address] Lymphocyte pct 44.2 % [facility] (COMBS) Comment: Interpretive Data Percent cell count reference ranges are not reported, since discordance with absolute values may lead to misinterpretation of CBC data. Current Interpretive Data was last revised on 2017. Testing performed by: [facility], [place], [address] Monocyte pct 10.4 % [facility] (COMBS) Comment: Interpretive Data Percent cell count reference ranges are not reported, since discordance with absolute values may lead to misinterpretation of CBC data. Current Interpretive Data was last revised on 2017. Testing performed by: [place], [address] Eosinophil pct 0.0 % [facility] (COMBS) Comment: Interpretive Data Percent cell count reference ranges are not reported, since discordance with absolute values may lead to misinterpretation of CBC data. Current Interpretive Data was last revised on 2017. Testing performed by: [place], [address] Basophil pct 0.0 % [facility] (COMBS) Comment: Interpretive Data Percent cell count reference ranges are not reported, since discordance with absolute values may lead to misinterpretation of CBC data. Current Interpretive Data was last revised on 2017. Testing performed by: [place], [address] Blood 10/21/2024 8:25 AM CDT 10/21/2024 9:43 AM CDT us Chalino Chapa MD LAB BLOOD ORDERABLES Aylin l Result [facility] (COMBS) 1 [facility] Department [place] [address] * (ABNORMAL) CBC with auto differential (10/21/2024 8:25 AM CDT) WBC 1.54(L) 3.80 - 9.90 K/cumm Comment:Testing performed by : [facility], [place], [address] Hgb 8.5(L) 11.9 - 15.5 g/dL [facility] ([place]) Comment:Testing performed by : [facility], [place], [address] Hct 26.5(L) 35.6 - 45.5 % [facility] ([place]) Comment:Testing performed by : [facility], [place], [place], Plt 153 150 - 400 K/cumm [facility] ([place]) Comment:Testing performed by : [place], MPV 11.8 9.1 - 12.3 fL [facility] ([place]) Comment:Testing performed by : [place], RBC 2.67(L) 3.90 - 5.20 M/cumm [facility] ([place]) Comment:Testing performed by : [place], MCV 99.3(H) 81.3 - 96.4 fL [facility] ([place]) Comment:Testing performed by : [facility], [place], MCH 31.8 27.1 - 33.3 pg [facility] ([place]) Comment:Testing performed by : [place], MCHC 32.1(L) 32.3 - 35.7 g/dL [facility] ([place]) Comment:Testing performed by : [place], RDW CV 16.9(H) 11.1 - 14.9 % [facility] ([place]) Comment:Testing performed by : [facility], [place], [place], RDW SD 52.5(H) 35.7 - 48.1 fL [facility] ([place]) Comment:Testing performed by : [place], NRBC abs 0.00 0.00 - 0.01 K/cumm [facility] ([place]) Comment:Testing performed by : [facility], [place], [place], Morphologic Screen Results confirmed by manual morphology review. [facility] ([place]) Comment:Testing performed by : [facility], [address], [place], [address] Blood 10/21/2024 8:25 AM CDT 10/21/2024 9:43 AM CDT us Chalino Chapa MD LAB BLOOD ORDERABLES Aylin l Result [facility] (COMBS) 1 [facility] Department [place] [address] * (ABNORMAL) Comprehensive metabolic panel (10/21/2024 8:25 AM CDT) Sodium 139 135 - 145 mmol/L [facility] (COMBS) Potassium, pl 4.2 3.3 - 4.9 mmol/L [facility] ([place]) Chloride 99 97 - 110 mmol/L [facility] ([place]) CO2 31 22 - 32 mmol/L [facility] ([facility] Anion gap 9 2 - 15 mmol/L [facility] ([place]) BUN 11 6 - 25 mg/dL [facility] ([place]) Creatinine 0.59(L) 0.60 - 1.10 mg/dL [facility] ([place]) Glucose 169 70 - 199 mg/dL [facility] (COMBS) Comment: Interpretive Data Fasting glucose >/= 126 [...] BLOOD ORDERABLES Aylin l Result [facility] ([place]) [address] [place] [address] Department [place] [address] * Transfuse RBC (10/17/2024 2:54 PM CDT) Blood Chalino Chapa MD BLOOD TRANSFUSION ORDERAB LES Final Result * Prepare RBC (10/17/2024 12:24 PM CDT) Unit Number [id number] Product code [id number] [facility] ([place]) Blood Expiration Date [id number] [facility] ([place]) Product Blood Type (for scanning) 5100 [facility] ([place]) Product Blood Type OPOS [facility] ([place]) Dispense Status DISPENSED [facility] ([place]) us Chalino Chapa MD BLOOD BANK PRODUCT ORDERA BLES Final Result Performing Organization Address [facility]/ZIP Co de Phone Number [facility] ([place]) [address] [place] [address] Department [place] [address] * Prepare RBC: 1 Units (10/17/2024 12:19 PM CDT) Units requested 1 Comment:Testing performed by : [place], [address] Units requested Ready [facility] ([place]) Comment:Testing performed by : [place], [address] Blood 10/17/2024 12:1 9 PM CDT 10/17/2024 12:19 PM CDT Narrative [facility] (COMBS) - 10/17/2024 12:19 PM CDT Are special requirements needed? (All products are leukoreduced and CMV- safe)->No Chalino Chapa MD BLOOD BANK PRODUCT ORDERA BLES Final Result Performing Organization Address [facility]/ZIP Co de Phone Number [facility] (COMBS) 1 [facility] Department [place] [address] * eGFR (10/17/2024 11:10 AM CDT) eGFR [...] was last reviewed 2021. Testing performed by: [facility], [facility], [place], [address] Blood 10/17/2024 11:1 0 AM CDT 10/17/2024 11:34 AM CDT us Chalino Chapa MD LAB BLOOD ORDERABLES Aylin l Result Performing Organization Address City/[facility]/ZIP Co de Phone Number [facility] (COMBS) 1 [facility] Department [place] [address] * (ABNORMAL) Differential, auto (10/17/2024 11:10 AM CDT) Neutrophil abs 0.64(L) 1.50 - 6.50 K/cumm Comment:Testing performed by : [facility], [facility], [place], [address] Imm gran abs 0.01 0.00 - 0.10 K/cumm [facility] (COMBS) Comment:Testing performed by : [facility], [place], [address] Lymphocyte abs 0.84 0.80 - 3.30 K/cumm [facility] (COMBS) Comment:Testing performed by : [facility], [facility], [place], [address] Monocyte abs 0.20 0.20 - 0.80 K/cumm [facility] (COMBS) Comment:Testing performed by : [facility], [facility], [place], [address] Eosinophil abs 0.00 0.00 - 0.50 K/cumm [facility] (COMBS) Comment:Testing performed by : [facility], [place], [address] Basophil abs 0.00 0.00 - 0.10 K/cumm [facility] (COMBS) Comment:Testing performed by : [place], [address] Neutrophil pct 37.9 % [facility] (COMBS) Comment: Interpretive Data Percent cell count reference ranges are not reported, since discordance with absolute values may lead to misinterpretation of CBC data. Current Interpretive Data was last revised on 2017. Testing performed by: [place], [address] Imm gran pct 0.6 % [facility] (COMBS) Comment: Interpretive Data Percent cell count reference ranges are not reported, since discordance with absolute values may lead to misinterpretation of CBC data. Current Interpretive Data was last revised on 2017. Testing performed by: [facility], [place], [address] Lymphocyte pct 49.7 % [facility] (COMBS) Comment: Interpretive Data Percent cell count reference ranges are not reported, since discordance with absolute values may lead to misinterpretation of CBC data. Current Interpretive Data was last revised on 2017. Testing performed by: [facility], [facility], [place], [address] Monocyte pct 11.8 % [facility] (COMBS) Comment: Interpretive Data Percent cell count reference ranges are not reported, since discordance with absolute values may lead to misinterpretation of CBC data. Current Interpretive Data was last revised on 2017. Testing performed by: [place], [address] Eosinophil pct 0.0 % [facility] (COMBS) Comment: Interpretive Data Percent cell count reference ranges are not reported, since discordance with absolute values may lead to misinterpretation of CBC data. Current Interpretive Data was last revised on 2017. Testing performed by: [facility], [place], [address] Basophil pct 0.0 % [facility] (COMBS) Comment: Interpretive Data Percent cell count reference ranges are not reported, since discordance with absolute values may lead to misinterpretation of CBC data. Current Interpretive Data was last revised on 2017. Testing performed by: [facility], [place], [address] Blood 10/17/2024 11:1 0 AM CDT 10/17/2024 12:21 PM CDT us Chalino Chapa MD LAB BLOOD ORDERABLES Aylin freedman Result [facility] (COMBS) 1 [facility] Department [place] [address] * (ABNORMAL) CBC with auto differential (10/17/2024 11:10 AM CDT) WBC 1.69(L) 3.80 - 9.90 K/cumm Comment:Testing performed by : [facility], [place], [address] Hgb 7.3(L) 11.9 - 15.5 g/dL [facility] ([place]) Comment:Testing performed by : [facility], [place], [address] Hct 22.8(L) 35.6 - 45.5 % [facility] ([place]) Comment:Testing performed by : [facility], [place], [place], Plt 144(L) 150 - 400 K/cumm [facility] (COMBS) Comment:Testing performed by : [facility], [place], MPV 12.0 9.1 - 12.3 fL [facility] (COMBS) Comment:Testing performed by : [facility], [place], RBC 2.29(L) 3.90 - 5.20 M/cumm [facility] (COMBS) Comment:Testing performed by : [facility], [place], MCV 99.6(H) 81.3 - 96.4 fL [facility] (COMBS) Comment:Testing performed by : [facility], [place], MCH 31.9 27.1 - 33.3 pg [facility] (COMBS) Comment:Testing performed by : [facility], [place], MCHC 32.0(L) 32.3 - 35.7 g/dL [facility] (COMBS) Comment:Testing performed by : [place], RDW CV 16.2(H) 11.1 - 14.9 % [facility] (COMBS) Comment:Testing performed by : [facility], [place], RDW SD 53.1(H) 35.7 - 48.1 fL [facility] (COMBS) Comment:Testing performed by : [facility], [place], NRBC abs 0.00 0.00 - 0.01 K/cumm [facility] (COMBS) Comment:Testing performed by : [facility], [place], [address] Morphologic Screen Results confirmed by manual morphology review. [facility] (COMBS) Comment:Testing performed by : [facility], [place], [address] Blood 10/17/2024 11:1 0 AM CDT 10/17/2024 12:21 PM CDT us Chalino Chapa MD LAB BLOOD ORDERABLES Edit ed Result - Final Performing Organization Address City/[facility]/ZIP Co de Phone Number [facility] (COMBS) [address] [place] [address] [place] [address] * ABO/Rh (10/17/2024 11:10 AM CDT) ABO/Rh O Positive Comment:Testing performed by : [place], [address] Blood 10/17/2024 11:1 0 AM CDT 10/17/2024 11:43 AM CDT Narrative [facility] (COMBS) - 10/17/2024 12:17 PM CDT Has the patient had Daratumumab or Isatuximab in the past 6 months?->Unknown Witness: Ynes Jensen IFS us Chalino Chapa MD LAB BLOOD BANK TEST ORDER LAITH Final Result Performing Organization Address [facility] Co de Phone Number [facility] (COMBS) [address] [place] [address] Department [place] [address] * Crossmatch (10/17/2024 11:10 AM CDT) Crossmatch Compatible [facility] Silva (COMBS) Unit number for crossmatch [id number] [facility] (COMBS) Blood 10/17/2024 11:1 0 AM CDT 10/17/2024 11:43 AM CDT us Chalino Chapa MD LAB BLOOD BANK TEST ORDER LAITH Final Result [facility] (COMBS) [address] [place] [address] [place] [address] * Antibody screen (10/17/2024 11:10 AM CDT) Rivera, indirect, Gel Interpretation Negative ABSC Comment:Testing performed by : [place], [address] Blood 10/17/2024 11:1 0 AM CDT 10/17/2024 11:43 AM CDT Narrative [facility] ([place]) - 10/17/2024 12:17 PM CDT Has the patient had Daratumumab or Isatuximab in the past 6 months?->Unknown us Chalino Chapa MD LAB BLOOD BANK TEST ORDER LAITH Final Result [facility] ([place]) 1 [facility] Department [place] [address] * (ABNORMAL) Comprehensive metabolic panel (10/17/2024 11:10 [...] MD LAB BLOOD ORDERABLES [place]in freedman Result [facility] 1 [facility] Department [place] [address] * (ABNORMAL) Differential, auto (10/14/2024 9:17 AM CDT) Neutrophil abs 0.51(L) 1.50 - 6.50 K/cumm Comment:Testing performed by : [place], [address] Imm gran abs 0.02 0.00 - 0.10 K/cumm [facility] (COMBS) Comment:Testing performed by : [place], [address] Lymphocyte abs 0.81 0.80 - 3.30 K/cumm [facility] (COMBS) Comment:Testing performed by : [place], [address] Monocyte abs 0.13(L) 0.20 - 0.80 K/cumm [facility] (COMBS) Comment:Testing performed by : [place], [address] Eosinophil abs 0.00 0.00 - 0.50 K/cumm [facility] (COMBS) Comment:Testing performed by : [place], [address] Basophil abs 0.01 0.00 - 0.10 K/cumm [facility] (COMBS) Comment:Testing performed by : [place], [address] Neutrophil pct 34.4 % [facility] (COMBS) Comment: Interpretive Data Percent cell count reference ranges are not reported, since discordance with absolute values may lead to misinterpretation of CBC data. Current Interpretive Data was last revised on 2017. Testing performed by: [place], [address] Imm gran pct 1.4 % [facility] (COMBS) Comment: Interpretive Data Percent cell count reference ranges are not reported, since discordance with absolute values may lead to misinterpretation of CBC data. Current Interpretive Data was last revised on 2017. Testing performed by: [place], [address] Lymphocyte pct 54.7 % [facility] (COMBS) Comment: Interpretive Data Percent cell count reference ranges are not reported, since discordance with absolute values may lead to misinterpretation of CBC data. Current Interpretive Data was last revised on 2017. Testing performed by: [place], [address] Monocyte pct 8.8 % [facility] (COMBS) Comment: Interpretive Data Percent cell count reference ranges are not reported, since discordance with absolute values may lead to misinterpretation of CBC data. Current Interpretive Data was last revised on 2017. Testing performed by: [place], [address] Eosinophil pct 0.0 % [facility] (COMBS) Comment: Interpretive Data Percent cell count reference ranges are not reported, since discordance with absolute values may lead to misinterpretation of CBC data. Current Interpretive Data was last revised on 2017. Testing performed by: [place], [address] Basophil pct 0.7 % [facility] (COMBS) Comment: Interpretive Data Percent cell count reference ranges are not reported, since discordance with absolute values may lead to misinterpretation of CBC data. Current Interpretive Data was last revised on 2017. Testing performed by: [place], [address] Blood 10/14/2024 9:17 AM CDT 10/14/2024 9:17 AM CDT us Chalino Chapa MD LAB BLOOD ORDERABLES [place]ylin freedman Result [facility] (COMBS) 1 [facility] Department [place] [address] * (ABNORMAL) CBC with auto differential (10/14/2024 9:17 AM CDT) WBC 1.48(L) 3.80 - 9.90 K/cumm Comment:Testing performed by : [place], [address] Hgb 7.8(L) 11.9 - 15.5 g/dL [facility] ([place]) Comment:Testing performed by : [place], [address] Hct 24.6(L) 35.6 - 45.5 % [facility] ([place]) Comment:Testing performed by : [place], [address] Plt 142(L) 150 - 400 K/cumm [facility] ([place]) Comment:Testing performed by : [place], [address] MPV 12.2 9.1 - 12.3 fL [facility] ([place]) Comment:Testing performed by : [place], [address] RBC 2.54(L) 3.90 - 5.20 M/cumm [facility] ([place]) Comment:Testing performed by : [place], [address] MCV 96.9(H) 81.3 - 96.4 fL [facility] ([place]) Comment:Testing performed by : [place], [address] MCH 30.7 27.1 - 33.3 pg [facility] ([place]) Comment:Testing performed by : [place], [address] MCHC 31.7(L) 32.3 - 35.7 g/dL [facility] ([place]) Comment:Testing performed by : [place], [address] RDW CV 15.6(H) 11.1 - 14.9 % [facility] ([place]) Comment:Testing performed by : [facility], [facility], [place], [address] RDW SD 53.3(H) 35.7 - 48.1 fL [facility] (COMBS) Comment:Testing performed by : [facility], [facility], [place], [address] NRBC abs 0.00 0.00 - 0.01 K/cumm [facility] (COMBS) Comment:Testing performed by : [facility], [facility], [place], [address] Blood 10/14/2024 9:17 AM CDT 10/14/2024 9:17 AM CDT us Chalino Chapa MD LAB BLOOD ORDERABLES Aylin freedman Result [facility] (COMBS) 1 [facility] Department [place] [address] * eGFR (10/14/2024 8:00 AM CDT) eGFR [...] was last reviewed 2021. Testing performed by: [facility], [facility], [place], [address] Blood 10/14/2024 8:00 AM CDT 10/14/2024 1:44 PM CDT us Chalino Chapa MD LAB BLOOD ORDERABLES Aylin freedman Result [facility] (COMBS) [address] [place] [address] Department [place] [address] * (ABNORMAL) Comprehensive metabolic panel (10/14/2024 8:00 AM CDT) Sodium 138 135 - 145 mmol/L Comment:Testing performed by : [facility], [facility], [place], [address] Potassium, pl 4.4 3.3 - 4.9 mmol/L [facility] (COMBS) Comment:Testing performed by : [place], [address] Chloride 99 97 - 110 mmol/L [facility] (COMBS) Comment:Testing performed by : [facility], [place], [address] CO2 27 22 - 32 mmol/L [facility] (COMBS) Comment:Testing performed by : [facility], [place], [address] Anion gap 12 2 - 15 mmol/L [facility] ([place]) Comment:Testing performed by : [facility], [place], [address] BUN 10 6 - 25 mg/dL [facility] (COMBS) Comment:Testing performed by : [facility], [place], [address] Creatinine 0.58(L) 0.60 - 1.10 mg/dL [facility] (COMBS) Comment:Testing performed by : [facility], [place], [address] Glucose 135 70 - 199 mg/dL [facility] (COMBS) Comment: Interpretive Data Fasting glucose >/= 126 [...] revised 2022. Testing performed by: [facility], [place], [address] Calcium 9.2 8.5 - 10.3 mg/dL [facility] (COMBS) Comment:Testing performed by : [facility], [place], [address] Bilirubin, total 0.6 0.1 - 1.2 mg/dL [facility] (COMBS) Comment:Testing performed by : [facility], [place], [address] Protein, pl 7.3 6.5 - 8.5 g/dL [facility] (COMBS) Comment:Testing performed by : [facility], [place], [address] Albumin 3.9 3.5 - 5.0 g/dL [facility] (COMBS) Comment:Testing performed by : [facility], [place], [address] Alk phos 47 40 - 130 Units/L [facility] (COMBS) Comment:Testing performed by : [facility], [place], [address] ALT 46(H) 7 - 45 Units/L [facility] (COMBS) Comment:Testing performed by : [facility], [place], [address] AST 29 10 - 45 Units/L [facility] (COMBS) Comment:Testing performed by : [facility], [place], [address] Blood 10/14/2024 8:00 AM CDT 10/14/2024 1:44 PM CDT us Chalino Chapa MD LAB BLOOD ORDERABLES Aylin l Result [facility] (COMBS) [address] [place] [address] [place] [address] * eGFR (10/11/2024 11:50 AM CDT) eGFR [...] was last reviewed 2021. Testing performed by: [place], [address] Blood 10/11/2024 11:5 0 AM CDT 10/11/2024 2:14 PM CDT Milla Armenta PLISSE MACHINE OPERATOR LAB BLOOD ORDERABLES Final Result [facility] (COMBS) 1 [facility] Department [place] [address] * (ABNORMAL) Differential, auto (10/11/2024 11:50 AM CDT) Neutrophil abs 0.43(C) 1.50 - 6.50 K/cumm Comment: This result has been called to Evie Brink RN by [id number] on 10/11/2024 13:11:00, and has been read back. Testing performed by: [place], [address] Imm gran abs 0.01 0.00 - 0.10 K/cumm [facility] (COMBS) Comment:Testing performed by : [place], [address] Lymphocyte abs 0.73(L) 0.80 - 3.30 K/cumm [facility] (COMBS) Comment:Testing performed by : [place], [address] Monocyte abs 0.07(L) 0.20 - 0.80 K/cumm [facility] (COMBS) Comment:Testing performed by : [facility], [facility], [place], [address] Eosinophil abs 0.00 0.00 - 0.50 K/cumm [facility] (COMBS) Comment:Testing performed by : [facility], [place], [address] Basophil abs 0.00 0.00 - 0.10 K/cumm [facility] (COMBS) Comment:Testing performed by : [facility], [place], [address] Neutrophil pct 34.7 % [facility] (COMBS) Comment: Interpretive Data Percent cell count reference ranges are not reported, since discordance with absolute values may lead to misinterpretation of CBC data. Current Interpretive Data was last revised on 2017. Testing performed by: [place], [address] Imm gran pct 0.8 % [facility] (COMBS) Comment: Interpretive Data Percent cell count reference ranges are not reported, since discordance with absolute values may lead to misinterpretation of CBC data. Current Interpretive Data was last revised on 2017. Testing performed by: [place], [address] Lymphocyte pct 58.9 % [facility] (COMBS) Comment: Interpretive Data Percent cell count reference ranges are not reported, since discordance with absolute values may lead to misinterpretation of CBC data. Current Interpretive Data was last revised on 2017. Testing performed by: [place], [address] Monocyte pct 5.6 % [facility] (COMBS) Comment: Interpretive Data Percent cell count reference ranges are not reported, since discordance with absolute values may lead to misinterpretation of CBC data. Current Interpretive Data was last revised on 2017. Testing performed by: [place], [address] Eosinophil pct 0.0 % [facility] (COMBS) Comment: Interpretive Data Percent cell count reference ranges are not reported, since discordance with absolute values may lead to misinterpretation of CBC data. Current Interpretive Data was last revised on 2017. Testing performed by: [facility], [place], [address] Basophil pct 0.0 % [facility] (COMBS) Comment: Interpretive Data Percent cell count reference ranges are not reported, since discordance with absolute values may lead to misinterpretation of CBC data. Current Interpretive Data was last revised on 2017. Testing performed by: [facility], [place], [address] Blood 10/11/2024 11:5 0 AM CDT 10/11/2024 12:18 PM CDT us Chalino Chapa MD LAB BLOOD ORDERABLES Aylin freedman Result [facility] (COMBS) [address] [place] [address] Department [place] [address] * (ABNORMAL) CBC with auto differential (10/11/2024 11:50 AM CDT) WBC 1.24(L) 3.80 - 9.90 K/cumm Comment:Testing performed by : [facility], [place], [address] Hgb 7.7(L) 11.9 - 15.5 g/dL [facility] (COMBS) Comment:Testing performed by : [facility], [place], [address] Hct 23.9(L) 35.6 - 45.5 % [facility] (COMBS) Comment:Testing performed by : [facility], [place], [address] Plt 157 150 - 400 K/cumm [facility] (COMBS) Comment:Testing performed by : [facility] [facility], [place], [address] MPV 11.6 9.1 - 12.3 fL [facility] (COMBS) Comment:Testing performed by : [facility], [place], [address] RBC 2.43(L) 3.90 - 5.20 M/cumm [facility] (COMBS) Comment:Testing performed by : [facility], [place], [address] MCV 98.4(H) 81.3 - 96.4 fL [facility] (COMBS) Comment:Testing performed by : [facility], [place], [place], MCH 31.7 27.1 - 33.3 pg [facility] (COMBS) Comment:Testing performed by : [facility], [facility], [place], MCHC 32.2(L) 32.3 - 35.7 g/dL [facility] (COMBS) Comment:Testing performed by : [facility], [place], [place], RDW CV 15.1(H) 11.1 - 14.9 % [facility] (COMBS) Comment:Testing performed by : [facility], [place], RDW SD 53.4(H) 35.7 - 48.1 fL [facility] (COMBS) Comment:Testing performed by : [facility], [place], NRBC abs 0.00 0.00 - 0.01 K/cumm S[facility]RA ROGERS (COMBS) Comment:Testing performed by : [facility], [place], Morphologic Screen Results confirmed by manual morphology review. [facility]RA ROGERS (COMBS) Comment:Testing performed by : [facility], [place], Blood 10/11/2024 11:5 0 AM CDT 10/11/2024 12:18 PM CDT us Chalino Chapa MD LAB BLOOD ORDERABLES Aylin freedman Result SABRA ROGERS (COMBS) 1 [facility] Department [place] [address] * (ABNORMAL) Comprehensive metabolic panel (10/11/2024 11:50 AM CDT) Sodium 140 135 - 145 mmol/L Comment:Testing performed by : [facility], [place], [place], Potassium, pl 3.9 3.3 - 4.9 mmol/L [facility] ROGERS (COMBS) Comment:Testing performed by : [facility], [place], [address] Chloride 100 97 - 110 mmol/L [facility] (MAURICIO) Comment:Testing performed by : [facility], [facility], [place], [address] CO2 27 22 - 32 mmol/L [facility] ([facility]URICIO) Comment:Testing performed by : [facility], [facility], [place], [address] Anion gap 13 2 - 15 mmol/L [facility] ([facility]URICIO) Comment:Testing performed by : [facility], [facility], [place], [address] BUN 10 6 - 25 mg/dL [facility] ([facility]URICIO) Comment:Testing performed by : [facility], [facility], [place], [address] Creatinine 0.54(L) 0.60 - 1.10 mg/dL [facility] ([facility]URICIO) Comment:Testing performed by : [facility], [place], [address] Glucose 120 70 - 199 mg/dL CERNER [...] revised 2022. Testing performed by: [facility], [place], [address] Calcium 8.8 8.5 - 10.3 mg/dL [facility] (MAURICIO) Comment:Testing performed by : [facility], [place], [address] Bilirubin, total 0.5 0.1 - 1.2 mg/dL [facility] (MAURICIO) Comment:Testing performed by : [facility], [place], [address] Protein, pl 6.9 6.5 - 8.5 g/dL [facility] (MAURICIO) Comment:Testing performed by : [facility], [place], [address] Albumin 3.7 3.5 - 5.0 g/dL [facility] (COMBS) Comment:Testing performed by : [facility], [facility], [place], [address] Alk phos 38(L) 40 - 130 Units/L [facility] ROGERS (COMBS) Comment:Testing performed by : [facility], [facility], [place], [address] ALT 40 7 - 45 Units/L [facility]RA [facility] (COMBS) Comment:Testing performed by : [facility], [facility], [place], [address] AST 23 10 - 45 Units/L [facility] (COMBS) Comment:Testing performed by : [facility], [facility], [place], [address] Blood 10/11/2024 11:5 0 AM CDT 10/11/2024 2:14 PM CDT us Milla Armenta PLISSE MACHINE OPERATOR LAB BLOOD ORDERABLES Final Result SABRA [facility] (COMBS) 1 [facility] Department [place] [address] * eGFR (10/07/2024 5:29 AM CDT) eGFR [...] was last reviewed 2021. Testing performed by: [address] [address] Blood 10/07/2024 5:29 AM CDT 10/07/2024 5:46 AM CDT us Jose Wang MD LAB BLOOD ORDERABLES Final Res ult [facility] [address] [facility] Department [place] [address] * (ABNORMAL) Differential, auto (10/07/2024 5:29 AM CDT) Neutrophil abs 0.13(C) 1.50 - 6.50 K/cumm Comment: Critical value called within last 72 hrs Testing performed by: [address] [address] Imm gran abs 0.00 0.00 - 0.10 K/cumm SABRA Comment:Testing performed by : [address] [address] Lymphocyte abs 0.49(L) 0.80 - 3.30 K/cumm SABRA Comment:Testing performed by : [address] [address] Monocyte abs 0.02(L) 0.20 - 0.80 K/cumm SABRA Comment:Testing performed by : [address] [address] Eosinophil abs 0.00 0.00 - 0.50 K/cumm SABRA Comment:Testing performed by : [address] [address] Basophil abs 0.00 0.00 - 0.10 K/cumm SABRA Comment:Testing performed by : [address] [address] Neutrophil pct 20.3 % SABRA Comment: Differential consistent with previous result. Differential consistent with previous result. Interpretive Data Percent cell count reference ranges are not reported, since discordance with absolute values may lead to misinterpretation of CBC data. Current Interpretive Data was last revised on 2017. Testing performed by: [address] [address] Imm gran pct 0.0 % [facility] Comment: Interpretive Data Percent cell count reference ranges are not reported, since discordance with absolute values may lead to misinterpretation of CBC data. Current Interpretive Data was last revised on 2017. Testing performed by: [address] [address] Lymphocyte pct 76.6 % [facility] Comment: Interpretive Data Percent cell count reference ranges are not reported, since discordance with absolute values may lead to misinterpretation of CBC data. Current Interpretive Data was last revised on 2017. Testing performed by: [address] [address] Monocyte pct 3.1 % [facility] Comment: Interpretive Data Percent cell count reference ranges are not reported, since discordance with absolute values may lead to misinterpretation of CBC data. Current Interpretive Data was last revised on 2017. Testing performed by: [address] [address] Eosinophil pct 0.0 % [facility] Comment: Interpretive Data Percent cell count reference ranges are not reported, since discordance with absolute values may lead to misinterpretation of CBC data. Current Interpretive Data was last revised on 2017. Testing performed by: [address] [address] Basophil pct 0.0 % [facility] Comment: Interpretive Data Percent cell count reference ranges are not reported, since discordance with absolute values may lead to misinterpretation of CBC data. Current Interpretive Data was last revised on 2017. Testing performed by: [address] [address] Blood 10/07/2024 5:29 AM CDT 10/07/2024 5:46 AM CDT us Jose Wang MD LAB BLOOD ORDERABLES Final Res ult SABRA [address] [facility] Department of Laboratories [place], [place] [id number] * (ABNORMAL) CBC with auto differential (10/07/2024 5:29 AM CDT) [facility] Signature WBC 0.64(C) 3.80 - 9.90 K/cumm Comment: Critical value called within last 72 hrs Testing performed by: [address] [address] Hgb 7.2(L) 11.9 - 15.5 g/dL SABRA Comment:Testing performed by : [address], [address] Hct 21.9(L) 35.6 - 45.5 % SABRA Comment:Testing performed by : [address] [address] Plt 142(L) 150 - 400 K/cumm SABRA Comment:Testing performed by : [address] [address] MPV 10.9 9.1 - 12.3 fL SABRA Comment:Testing performed by : [address], [address] RBC 2.29(L) 3.90 - 5.20 M/cumm SABRA Comment:Testing performed by : [address] [address] MCV 95.6 81.3 - 96.4 fL SABRA Comment:Testing performed by : [address] [address] MCH 31.4 27.1 - 33.3 pg SABRA Comment:Testing performed by : [address], [address] MCHC 32.9 32.3 - 35.7 g/dL SABRA Comment:Testing performed by : [address], [address] RDW CV 14.9 11.1 - 14.9 % SABRA Comment:Testing performed by : [address] [address] RDW SD 51.4(H) 35.7 - 48.1 fL SABRA Comment:Testing performed by : [address], [address] NRBC abs 0.00 0.00 - 0.01 K/cumm SABRA Comment:Testing performed by : [address] [address] Morphologic Screen Results confirmed by manual morphology review. SABRA PARKS Comment:Testing performed by : [address] [address] Blood 10/07/2024 5:29 AM CDT 10/07/2024 5:46 AM CDT us Jose Wang MD LAB BLOOD ORDERABLES Final Res ult SABRA [address] [facility] Department [place] [address] * (ABNORMAL) Basic metabolic panel (10/07/2024 5:29 AM CDT) Sodium 142 135 - 145 mmol/L Comment:Testing performed by : [address] [address] Potassium, pl 3.7 3.3 - 4.9 mmol/L SABRA Comment:Testing performed by : [address] [address] Chloride 104 97 - 110 mmol/L SABRA Comment:Testing performed by : [address] [address] CO2 32 22 - 32 mmol/L SABRA Comment:Testing performed by : [address] [address] Anion gap 6 2 - 15 mmol/L SABRA Comment:Testing performed by : [address] [address] BUN 6 6 - 25 mg/dL SABRA Comment:Testing performed by : [address] [address] Creatinine 0.39(L) 0.60 - 1.10 mg/dL SABRA Comment:Testing performed by : [address] [address] Glucose 137 70 - 199 mg/dL SABRA [...] was last revised 2022. Testing performed by: [facility], [address] [place] [address]., [address] Calcium 7.9(L) 8.5 - 10.3 mg/dL SABRA PARKS Comment:Testing performed by : [facility], [address] [place] [address]., [address] Blood 10/07/2024 5:29 AM CDT 10/07/2024 5:46 AM CDT Jose Wang MD LAB BLOOD ORDERABLES Final Res ult SABRA [address] [facility] Department [place] [address] * eGFR (10/06/2024 5:10 AM CDT) eGFR [...] was last reviewed 2021. Testing performed by: [address] [address] Blood 10/06/2024 5:10 AM CDT 10/06/2024 5:26 AM CDT Jose Wang MD LAB BLOOD ORDERABLES Final Res ult [facility] [address] [facility] Department [place] [address] * (ABNORMAL) Differential, auto (10/06/2024 5:10 AM CDT) Neutrophil abs 0.09(C) 1.50 - 6.50 K/cumm Comment: Critical value called within last 72 hrs Testing performed by: [address] [address] Imm gran abs 0.01 0.00 - 0.10 K/cumm SABRA Comment:Testing performed by : [address] [address] Lymphocyte abs 0.57(L) 0.80 - 3.30 K/cumm SABRA Comment:Testing performed by : [address] [address] Monocyte abs 0.01(L) 0.20 - 0.80 K/cumm SABRA Comment:Testing performed by : [address] [address] Eosinophil abs 0.01 0.00 - 0.50 K/cumm SABRA Comment:Testing performed by : [address] [address] Basophil abs 0.00 0.00 - 0.10 K/cumm SABRA Comment:Testing performed by : [address] [address] Neutrophil pct 13.2 % SABRA Comment: Differential consistent with previous result. Differential consistent with previous result. Interpretive Data Percent cell count reference ranges are not reported, since discordance with absolute values may lead to misinterpretation of CBC data. Current Interpretive Data was last revised on 2017. Testing performed by: [address] [address] Imm gran pct 1.4 % [facility] Comment: Interpretive Data Percent cell count reference ranges are not reported, since discordance with absolute values may lead to misinterpretation of CBC data. Current Interpretive Data was last revised on 2017. Testing performed by: [address] [address] Lymphocyte pct 82.6 % [facility] Comment: Interpretive Data Percent cell count reference ranges are not reported, since discordance with absolute values may lead to misinterpretation of CBC data. Current Interpretive Data was last revised on 2017. Testing performed by: [address] [address] Monocyte pct 1.4 % [facility] Comment: Interpretive Data Percent cell count reference ranges are not reported, since discordance with absolute values may lead to misinterpretation of CBC data. Current Interpretive Data was last revised on 2017. Testing performed by: [address] [address] Eosinophil pct 1.4 % [facility] Comment: Interpretive Data Percent cell count reference ranges are not reported, since discordance with absolute values may lead to misinterpretation of CBC data. Current Interpretive Data was last revised on 2017. Testing performed by: [address] [address] Basophil pct 0.0 % [facility] Comment: Interpretive Data Percent cell count reference ranges are not reported, since discordance with absolute values may lead to misinterpretation of CBC data. Current Interpretive Data was last revised on 2017. Testing performed by: [address] [address] Blood 10/06/2024 5:10 AM CDT 10/06/2024 5:26 AM CDT us Jose Wang MD LAB BLOOD ORDERABLES Final Res ult [facility] [address] [facility] Department [place] [address] * (ABNORMAL) CBC with auto differential (10/06/2024 5:10 AM CDT) WBC 0.69(C) 3.80 - 9.90 K/cumm Comment: Critical value called within last 72 hrs Testing performed by: [address] [address] Hgb 7.1(L) 11.9 - 15.5 g/dL SABRA Comment:Testing performed by : [address] [address] Hct 21.9(L) 35.6 - 45.5 % SABRA Comment:Testing performed by : [address] [address] Plt 149(L) 150 - 400 K/cumm SABRA Comment:Testing performed by : [address] [address] MPV 11.8 9.1 - 12.3 fL SABRA Comment:Testing performed by : [address] [address] RBC 2.26(L) 3.90 - 5.20 M/cumm SABRA Comment:Testing performed by : [address] [address] MCV 96.9(H) 81.3 - 96.4 fL SABRA Comment:Testing performed by : [address] [address] MCH 31.4 27.1 - 33.3 pg SABRA Comment:Testing performed by : [address] [address] MCHC 32.4 32.3 - 35.7 g/dL SABRA Comment:Testing performed by : [address] [address] RDW CV 15.0(H) 11.1 - 14.9 % SABRA Comment:Testing performed by : [address] [address] RDW SD 53.1(H) 35.7 - 48.1 fL SABRA Comment:Testing performed by : [address] [address] NRBC abs 0.00 0.00 - 0.01 K/cumm SABRA Comment:Testing performed by : [address] [address] Morphologic Screen Results confirmed by manual morphology review. SABRA Comment:Testing performed by : [address], [address] Blood 10/06/2024 5:10 AM CDT 10/06/2024 5:26 AM CDT us Jose Wang MD LAB BLOOD ORDERABLES Final Res ult Performing Organization Address [facility] Co de Phone Number [address] [place] [address] * (ABNORMAL) Phosphorus (10/06/2024 5:10 AM CDT) Phosphorus, pl 2.1(L) 2.3 - 4.5 mg/dL Comment:Testing performed by : [address], [address] Blood 10/06/2024 5:10 AM CDT 10/06/2024 5:26 AM CDT Juan A Rios MD LAB BLOOD ORDERABL ES Final Result Performing Organization Address [facility] Co de Phone Number [address] [address] * Magnesium (10/06/2024 5:10 AM CDT) Magnesium 2.0 1.4 - 2.5 mg/dL Comment:Testing performed by : [address] [address] Blood 10/06/2024 5:10 AM CDT 10/06/2024 5:26 AM CDT Juan A Rios MD LAB BLOOD ORDERABL ES Final Result SABRA [address] [facility] Department [place] [address] * (ABNORMAL) Basic metabolic panel (10/06/2024 5:10 AM CDT) Sodium 136 135 - 145 mmol/L Comment:Testing performed by : [address] [address] Potassium, pl 3.6 3.3 - 4.9 mmol/L SABRA Comment:Testing performed by : [address] [address] Chloride 101 97 - 110 mmol/L SABRA Comment:Testing performed by : [address] [address] CO2 28 22 - 32 mmol/L SABRA Comment:Testing performed by : [address] [address] Anion gap 7 2 - 15 mmol/L SABRA Comment:Testing performed by : [address] [address] BUN 8 6 - 25 mg/dL SABRA Comment:Testing performed by : [address] [address] Creatinine 0.42(L) 0.60 - 1.10 mg/dL SABRA Comment:Testing performed by : [address] [address] Glucose 133 70 - 199 mg/dL SABRA [...] was last revised 2022. Testing performed by: [facility], [address] [place] [address]., [address] Calcium 7.6(L) 8.5 - 10.3 mg/dL SABRA PARKS Comment:Testing performed by : [facility], [address] [place] [address]., [address] Blood 10/06/2024 5:10 AM CDT 10/06/2024 5:26 AM CDT us Jose Wang MD LAB BLOOD ORDERABLES Final Res ult [facility]RA PARKS [address] [facility] Department [place] [address] from Last 3 Months Insurance MEDICARE MEDICARE [facility] MEDICARE SUPPLEMENT MEDICARE [facility] MEDICARE SUPPLEMENT Advance Directives For more information, please contact: [phone] Documents on File Type Date Recorded Patient Floral Arranger Expl anation ADVANCE DIRECTIVE 12/20/2023 8:01 AM Power of Last [facility] * Full Code (Latest Code Status on File) Date Activated Date Inactivated Comments 09/28/2024 7:50 PM 10/07/2024 7:51 PM * Full Code Date Activated Date Inactivated Comments 12/11/2023 12:19 PM 12/19/2023 6:45 PM Care Teams Outside Repairer Special Relationship Specialty Start Date End Date Bryan Davey DO PCP - General Internal Medicine 11/14/23 Prateek King MD [address] [place] [address] Consulting Physician Urology 10/07/24 Sherman Alvarez DO [address] [place] [address] Medical Oncologist/Venue Manager Hematology and Oncology 10/07/24
--- OUTSIDE RECORDS SUMMARY | 2025-01-06 15:33 | XMS_ITS | Clinical Summary ---
Author Organization [facility] Address [address] [facility] [place] [address] Care Team Providers Care Registered Nurse Teacher Name Role Phone Mervat Kelley GERA-3D ARTIST Primary Care Provider + Source Comments [facility],non-owned Affiliates and Associated Physician Practices is amultiple site organization consisting of ambulatory clinics and hospital sitesin [place], [place], [place] and [place]. This disclosure is being madepursuant to the Care Everywhere program and may not contain all information available regarding this patient. Last updated 17.[facility] Allergies Active Allergy Reactions Criticality Noted Date [...] daily Active fish oil/omega-3 fatty acids (Promega;Cardi -Post 3) 1000 MG capsule Take 2 (two) [...] 71.7 kg (158 lb) 04/06/2022 10:[address] REGISTRAR Height 152.4 cm (5') 12/22/2021 12:39 PM [...] age to complete this topic Insurance [facility]IC[facility] Advance Directives * Full Code (Latest Code Status on File) Date Activated Date Inactivated Comments 09/29/2021 4:59 AM 09/30/2021 2:57 PM Care Teams Registered Nurse Teacher Relationship Specialty Start Date End Date Mervat Kelley APRN-CNP [address] [phone] PCP - General 11/24/21
--- OUTSIDE RECORDS SUMMARY | 2025-01-06 15:33 | XMS_ITS | Encounter Summary ---
Author Organization [facility] Health Address [address] [facility] [place] [address] Care Team Providers Care Freight Associate Name Role Phone Mervat Kelley MANAGER SUPPORT SERVICES-MANAGER BUSINESS PROCESS Primary Care Provider + Encounter Details Date Type Department Care Team (Late st Contact Info) Description 10/06/2022 Lab Requisition [facility] - Pathology Lab [address] [place] [address] Jesus Louis MD [address] [address] Illness, unspecified Social History Tobacco [...] Report Bone Marrow Patholog y Report Case: [id number] Authorizing Provider: Jesus Louis MD Collected: 10/05/2022 09:15 AM Ordering Location: [facility] Pathology Lab Received: 10/06/2022 01:27 PM Pathologist: Linda Hauser MD Specimens: A) - Bone Marrow Clot, Fluoro-guided bone marrow aspiration B) - Bone Marrow Core, Fluoro-guided bone marrow core bx 10/07/2022 1:40 PM CDT [facility] Final Diagnosis Bone marrow, aspirate, [...] normal. Platelet morphology: normal. 10/07/2022 1:40 PM [facility] Bone Marrow Aspirate The [...] Control is appropriately reactive. 10/07/2022 1:40 PM [facility] Bone Marrow Core Biopsy [...] an increased number of early erythroid progenitors. [id number] demonstrates additional, more mature erythroid lineage cells, confirming erythroid hyperplasia. Myeloperoxidase is positive in relatively fewer numbers of myeloid precursors. CD3 and CD20 show a normal number and distribution of T-cells and B-cells, respectively. Reticulin staining shows no significant marrow fibrosis (MF-0), and trichrome staining shows no collagen deposition. 10/07/2022 1:40 PM [facility] Flow Cytometry Summary Concurrent flow cytometry ([id number]) shows no evidence of non-Hodgkin lymphoma or high-grade myeloid neoplasm. 10/07/2022 1:40 PM [facility] Clinical History 82 year old woman with macrocytic anemia. 10/07/2022 1:40 PM CDT [facility] Materials Received Received are 22 slides and 3 blocks (A1, A2; B1) labeled [id number] along with a copy of the outside pathology report. The materials originate from [facility], [address] [place] [address] [place] [id number]. All original materials are returned to the referring institution, along with a copy of our final report. 10/07/2022 1:40 PM CDT [facility] Pathologist Location at [facility] 10/07/2022 1:40 PM CDT [facility] Disclaimer The performance characteristics of all immunohistochemical and indirect immunofluorescence stains (if any) cited in this report were determined by the [facility]. Some of these tests were developed [...] attending (teaching) pathologist. 10/07/2022 1:40 PM CDT [facility] Embedded Images 10/07/2022 1:40 PM CDT [facility] Pathology/Cytology BONE MARROW SPECIMEN / Unknown 10/05/2022 9:15 AM CDT 10/06/2022 1:27 PM CDT Miscellaneous samples (specimen) BONE MARROW SPECIMEN / Unknown 10/05/2022 9:15 AM CDT 10/06/2022 1:27 PM CDT us Jesus Louis MD LAB - PATHOLOGY/CYTOLOGY ORDERAB LES Final Result [facility] [address] [place], [place] [id number] [place] [address] documented in this encounter Visit Diagnoses Diagnosis Illness, unspecified documented in this encounter Care Teams Freight Associate Relationship Specialty Start Date End Date Mervat Kelley APRN-DAVIS [address] [phone] PCP - General 11/24/21 documented as of this encounter
--- OUTSIDE RECORDS SUMMARY | 2025-01-06 15:33 | XMS_ITS | Encounter Summary ---
Author Organization [facility] Address [facility] [facility] [place] [address] Care Team Providers Care Assisted Living Associate Name Role Phone Andie Ang MD Primary Care Provider + [phone] Mervat Kelley Primary Care Provider + Andie Ang MD Primary Care Provider + [phone] Mervat Kelley Primary Care Provider + Andie Ang MD Primary Care Provider + [phone] Mervat Kelley Primary Care Provider + Encounter Details Date Type Department Care Team (Late st Contact Info) Description 11/15/2018 Lab Requisition [facility] Care DermPath Lab [address] [facility] [place] [address] Sarath De Guzman MD [address] [place] [address] Social History Tobacco Use Types Packs/Day Years [...] AM CDT) Case Report Dermatopathology Report Case: [id number] Authorizing Provider: Sarath De Guzman MD Collected: 11/14/2018 12:00 AM Ordering Location: [facility] DermPath Lab Received: 11/15/2018 12:29 PM Pathologist: [...] specimen consists of a shave biopsy measuring [id number]. Jar 0. 12:59 PM CDT DERMATOPATHOLOGY LABORATORY [...] determined by the Dermatopathology Laboratory at [facility], directed by Dr. Frederick Schofield. These tests need not be, and therefore are not, approved by the [place] Food and Drug Administration. The tests are used for clinical purposes. Billing Codes Specimen Charges Stain Charges 06388 1 12:59 PM CDT DERMATOPATHOLOGY LABORATORY Embedded Images 12:59 PM CDT DERMATOPATHOLOGY LABORATORY Pathology/Cytolog y TISSUE SPECIMEN FROM SKIN / Unknown 11/14/2018 11/15/2018 12:29 PM CDT Sarath De Guzman MD LAB - PATHOLOGY/CYTOLOGY ORD ERABLES Final Result DERMATOPATHOLOGY LABORATORY [facility] Department of Dermatology [address], 5th [place] [address], [facility] [phone] documented in this encounter Visit Diagnoses Not on filedocumented in this encounter Care Teams Assisted Living Associate Relationship Specialty Start Date End Date Andie Ang MD [address] [phone] PCP - General 08/18/17 09/29/21 Mervat Kelley APRN-SALES AND TRAINING SPECIALIST [address] [place] [phone] PCP - General Nurse Practitioner 09/30/21 09/30/21 Andie Ang MD [address] [phone] PCP - General 10/01/21 10/12/21 Mervat Kelley APRN-SALES AND TRAINING SPECIALIST [address] [address] PCP - General 10/13/21 10/31/21 Andie Ang MD [address] [phone] PCP - General 11/01/21 11/23/21 Mervat Kelley APRN-SALES AND TRAINING SPECIALIST [address] [address] PCP - General 11/24/21 documented as of this encounter
--- OUTSIDE RECORDS SUMMARY | 2025-01-06 15:33 | XMS_ITS | Clinical Summary ---
Author Organization [facility] Facility Address [address] [address] [place] [address] Care Team Providers Care Varnish Supervisor Name Role Phone Unavailable Primary Care Provider [...] Department Care Team Description 10/07/2024 Documentation Only [facility] Jenny. [address] [place] [address] Ricky Moseley MD from Last 3 Months [...]
== END 2025-01-06 14:48 | disposition home or self-care (01) ==
PROVIDERS: PCP Internal Medicine; Visit Provider Clinical Nurse Specialist
DX: R19.7 Diarrhea, unspecified (principal)
CPT/HCPCS: 87045; 87046; 87177; 87427; 89055

== ENCOUNTER 2025-01-14 13:06 | Outpatient (CLI) | payer MEDICARE, SELFPAY ==
[2025-01-14 13:47] LABS: Immature Granulocyte Percent A 1.3 % (0-0.5); Lymphocytes Absolute Auto 0.56 K/mm3 (0.9-3.2); Mean Corpuscular HGB Conc 31.9 g/dl (32-36); Mean Corpuscular Hemoglobin 35.3 pg (26-34); Mean Corpuscular Volume 110.7 fl (80-100); Nucleated Red Blood Cells Absolute Auto 0.000 K/mm3 (0.0-0.012); Nucleated Red Blood Cells Perc 0.0 % (0.0-0.2); Platelet Count Result 182 k/mm3 (150-375); Red Blood Count 1.87 M/mm3 (4.2-5.4); White Blood Count 2.2 K/mm3 (4.5-10.0)
[2025-01-14 14:09] LABS: Macrocytosis 1+ (NORMAL)
[2025-01-14 14:10] LABS: Schistocytes None Seen
[2025-01-14 14:27] LABS: Hemoglobin 6.6 g/dL (12.0-15.0)
[2025-01-14 14:28] LABS: Hematocrit 20.7 % (37.0-47.0)
--- OUTSIDE RECORDS SUMMARY | 2025-01-14 14:54 | XMS_ITS | Clinical Summary ---
Author Organization [facility] [place] [facility] Address [address] [place] [address] Care Team Providers Care Petroleum Terminal Plant Operator Name Role Phone Unavailable Primary Care [...] 04/03/2016 Insurance MEDICARE PART A AND B [facility] SUPP
--- OUTSIDE RECORDS SUMMARY | 2025-01-14 14:54 | XMS_ITS | Encounter Summary ---
Author Organization [facility] Address [address] [place] [address] Phone Care Team Providers Care Police Justice Name Role Phone Bryan Davey DO Primary Care Provider Prateek King MD Unavailable Sherman Alvarez DO Unavailable [phone] Encounter Details Date Type Department Care Team (Late st Contact Info) Description 12/18/2024 Results Follow-Up [facility] Medicine Physicians [facility] Oncology [address] [place] [address] [address] [address] Theresa Gutierres RN CBC with auto differential, Differential, auto Social History Tobacco Use Types Packs/Day Years Used Date Smoking Tobacco: Never Smokeless Tobacco: Never Alcohol Use Standard Drinks/Week Comments Yes 0 (1 standard drink = 0.6 oz pur e alcohol) [facility] Utilities Answer Date Recorded In the past 12 months has [employer] electric, gas, oil, or water company threatened [...] any clubs o r organizations such as mandaeism groups, unions, fraternal or athletic groups, or [...] any time in the past 12 m [facility], were you homeless or living in a long-term (including now)? No 10/02/2024 Personal Safety Answer Date Recorded Have you ever been in or are you currently in a harmful physical or emotional relationship or is someone making you feel afraid or unsafe? Denies 09/28/2024 Comments Unknown Sex and Gender Information Value Date Recorded Sex Assigned at Not on file Legal Sex Female 1:43 AM CLINICAL TRIAL COORDINATOR Gender Identity Not on file Sexual Orientation Not on file documented as of this encounter Plan of Treatment Not on file documented as of this encounter Visit Diagnoses Not on filedocumented in this encounter Care Teams Police Justice Relationship Specialty Start Date End Date Bryan Davey DO PCP - General Internal Medicine 11/14/23 Prateek King MD [address] [place] [address] Consulting Physician Urology 10/07/24 Sherman Alvarez DO [address] [place] [address] Medical Oncologist/Ophthalmic Pathologist Hematology and Oncology 10/07/24 documented as of this encounter
--- OUTSIDE RECORDS SUMMARY | 2025-01-14 14:55 | XMS_ITS | Encounter Summary ---
Author Organization [facility] Address [address] [facility] [place] [place] [address] Care Team Providers Care Senior Enlisted Advisor Name Role Phone Mervat Kelley MOTOR POWER CONNECTOR-ENVIRONMENTAL LEAD Primary Care Provider + Encounter Details Date Type Department Care Team (Late st Contact Info) Description 10/05/2022 Lab Requisition [facility] - Pathology Lab [address] [place] [address] Jesus Louis MD [address] [phone] Anemia, unspecified Social History Tobacco [...] AM CDT) Case Report Flow Cytometry Case: [id number] Authorizing Provider: Jesus Louis MD Collected: 10/05/2022 09:15 AM Ordering Location: [facility] Pathology Lab Received: 10/05/2022 02:15 PM Pathologist: Linda Hauser MD Specimen: Bone Marrow 10/05/2022 4:45 PM CDT [facility] PATHOLOGY LAB Final Diagnosis Bone marrow, flow cytometric immunophenotypic analysis: - No evidence of non-Hodgkin lymphoma or high-grade myeloid neoplasm. - See interpretation. 10/05/2022 4:45 PM CDT [facility] PATHOLOGY LAB at 1644 CDT Flow [...] flow cytometry specimen is reviewed for quality system manager purposes. The bone marrow specimen shows no [...] ID # [id number] 10/05/2022 4:45 PM CDT [facility] PATHOLOGY LAB Number of markers 10 were performed. A-2 Flow CD10 A-3 Flow CD13 A-5 Flow CD20 A-1 Flow CD5 A-4 Flow CD19 A-6 Flow CD33 A-7 Flow CD34 A-8 Flow CD45 A-9 Mazie+CD19+ A-10 Lambda+CD19+ 10/05/2022 4:45 PM CDT U PATHOLOGY LAB Pathologist Location at [facility] 10/05/2022 4:45 PM CDT U PATHOLOGY LAB Disclaimer Test performed at [facility], [address] [place], [place], [address]. *The established laboratory minimum viability is 70%. [...] PATHOLOGY LAB Embedded Images 4:45 PM CDT [facility] PATHOLOGY LAB Pathology/Cytolo gy BONE MARROW SPECIMEN / Unknown 10/05/2022 9:15 AM CDT 10/05/2022 2:15 PM CDT Jesus Louis MD LAB - PATHOLOGY/CYTOLOGY ORDERAB LES Final Result Performing Organization Address City/State/[facility] Co de Phone Number [facility] PATHOLOGY LAB [address] [place] [address]. [address] [phone] documented in this encounter Visit Diagnoses Diagnosis Anemia, unspecified documented in this encounter Care Teams Senior Enlisted Advisor Relationship Specialty Start Date End Date Mervat Kelley APRN-CNP [address] [address] PCP - General 11/24/21 documented as of this encounter
--- OUTSIDE RECORDS SUMMARY | 2025-01-14 14:55 | XMS_ITS | Encounter Summary ---
Author Organization [facility] Address [address] [place] [address] Care Team Providers Care Facility Examiner Name Role Phone Mervat Kelley WATCH TRAIN ASSEMBLER-DOORS PREFITTER Primary Care Provider + Encounter Details Date Type Department Care Team (Late st Contact Info) Description 10/06/2022 Lab Requisition [facility] - Pathology Lab [address] [place] [address] Jesus Louis MD [address] [phone] Illness, unspecified Social History Tobacco [...] Report Bone Marrow Patholog y Report Case: [id number] Authorizing Provider: Jesus Louis MD Collected: 10/05/2022 09:15 AM Ordering Location: [facility] Pathology Lab Received: 10/06/2022 01:27 PM Pathologist: Linda Hauser MD Specimens: A) - Bone Marrow Clot, Fluoro-guided bone marrow aspiration B) - Bone Marrow Core, Fluoro-guided bone marrow core bx 10/07/2022 1:40 PM CDT [facility] PATHOLOGY LAB Final Diagnosis Bone marrow, [...] normal. Platelet morphology: normal. 10/07/2022 1:40 PM [facility] PATHOLOGY LAB Bone Marrow Aspirate [...] Control is appropriately reactive. 10/07/2022 1:40 PM [facility] PATHOLOGY LAB Bone Marrow Core [...] an increased number of early erythroid progenitors. [id number] demonstrates additional, more mature erythroid lineage cells, confirming erythroid hyperplasia. Myeloperoxidase is positive in relatively fewer numbers of myeloid precursors. CD3 and CD20 show a normal number and distribution of T-cells and B-cells, respectively. Reticulin staining shows no significant marrow fibrosis (MF-0), and trichrome staining shows no collagen deposition. 10/07/2022 1:40 PM [facility] PATHOLOGY LAB Flow Cytometry Summary Concurrent flow cytometry ([id number]) shows no evidence of non-Hodgkin lymphoma or high-grade myeloid neoplasm. 10/07/2022 1:40 PM [facility] PATHOLOGY LAB Clinical History 82 year old woman with macrocytic anemia. 10/07/2022 1:40 PM CDT [facility] PATHOLOGY LAB Materials Received Received are 22 slides and 3 blocks (A1, A2; B1) labeled [id number] along with a copy of the outside pathology report. The materials originate from [facility], [address] [place] [address] [place] [id number]. All original materials are returned to the referring institution, along with a copy of our final report. 10/07/2022 1:40 PM CDT U PATHOLOGY LAB Pathologist Location at [facility] 10/07/2022 1:40 PM CDT [facility] PATHOLOGY LAB Disclaimer The performance characteristics of all immunohistochemical and indirect immunofluorescence stains (if any) cited in this report were determined by the Histopathology Laboratory of [facility]. Some of these tests were [...] attending (teaching) pathologist. 10/07/2022 1:40 PM CDT [facility] PATHOLOGY LAB Embedded Images 10/07/2022 1:40 PM CDT [facility] PATHOLOGY LAB Pathology/Cytology BONE MARROW SPECIMEN / Unknown 10/05/2022 9:15 AM CDT 10/06/2022 1:27 PM CDT Miscellaneous samples (specimen) BONE MARROW SPECIMEN / Unknown 10/05/2022 9:15 AM CDT 10/06/2022 1:27 PM CDT us Jesus Louis MD LAB - PATHOLOGY/CYTOLOGY ORDERAB LES Final Result [facility] PATHOLOGY LAB [address] [place], [place] [address] [place] [address] documented in this encounter Visit Diagnoses Diagnosis Illness, unspecified documented in this encounter Care Teams Facility Examiner Relationship Specialty Start Date End Date Mervat Kelley APRN-DAVIS [address] [phone] PCP - General 11/24/21 documented as of this encounter
--- OUTSIDE RECORDS SUMMARY | 2025-01-14 14:55 | XMS_ITS | Clinical Summary ---
Author Organization [facility] Facility Address [address] [address] Care Team Providers Care Clamp Carrier Operator Name Role Phone Unavailable Primary Care [...]
--- OUTSIDE RECORDS SUMMARY | 2025-01-14 14:55 | XMS_ITS | Clinical Summary ---
Author Organization [facility] Medical Office Building B Address [address] [place] [address] Care Team Providers Care Rx Specialist Name Role Phone Bryan Davey DO Primary Care Provider Prateek King MD Unavailable Sherman Alvarez DO Unavailable [phone] Allergies Active Allergy Reactions Criticality Noted Date [...] 10 mg tabletIndicatio ns:MDS (myelodysplasti c syndrome) ([facility]) Take 1 tablet (10 mg total) by [...] 1 tablet (75 mcg total) by mouth mixing machine tender before breakfast 30 tablet 4 Active oxyBUTYnin XL (DITROPAN-XL) 5 mg 24 hr tablet 4 Active acyclovir (ZOVIRAX) 400 mg tabletIndicatio ns:MDS (myelodysplasti c syndrome) (HCC) TAKE 1 TABLET BY MOUTH THREE TIMES DAILY FOR SHINGLES PREVENTION. 90 tablet 5 Active levothyroxine (SYNTHROID) 75 mcg tablet Take 1 tablet (75 mcg total) by mouth mixing machine tender before breakfast Active docusate sodium (COLACE) 250 [...] (06/06/2018): Added automatically from request for surgery [id number] Encounters Date Type Department Care Team Description 01/14/2025 Orders Only [facility] [address] [place] [address] [address] [place] [address] Chalino Chapa MD 01/06/2025 10:00 AM CDT Lab [address] [place] [phone] Myelodysplastic syndrome (HCC); Chronic anemia 01/06/2025 10:00 AM CDT Infusion [address] [place] [address] 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 [address] [place] [address] Chalino Chapa MD 01/06/2025 Orders Only [facility] [address] [place] [address] [facility] [address] [place] [address] Chalino Chapa MD Myelodysplastic syndrome (HCC) (Primary Dx) 12/31/2024 9:30 AM CDT Office Visit [facility] [address] [place] [address] Medical Office Bldg [address] [place] [address] Chalino Chapa MD Myelodysplastic syndrome (HCC) (Primary Dx); Chronic anemia; Anemia in neoplastic disease 12/31/2024 9:00 AM CDT Lab [address] [place] [address] Myelodysplastic syndrome (HCC); Anemia in neoplastic disease 12/30/2024 Telephone [facility] [address] [place] [address] Office [address] [place] [address] Clau Cabral, CLT 12/24/2024 11:30 AM CDT Lab [address] [place] [address] Myelodysplastic syndrome (HCC); Anemia in neoplastic disease; MDS (myelodysplastic syndrome) (HCC) 12/24/2024 11:30 AM CDT Infusion [address] [address] 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); MDS (myelodysplastic syndrome) (HCC) 12/18/2024 10:30 AM CDT Lab [address] [place] [address] Myelodysplastic syndrome (HCC); Anemia in neoplastic disease; MDS (myelodysplastic syndrome) (HCC) 12/18/2024 10:30 AM CDT Infusion [address] [place] [address] MDS (myelodysplastic syndrome) (HCC) (Primary Dx); Myelodysplastic syndrome (HCC); Anemia in neoplastic disease 12/18/2024 Results Follow-Up [facility] [address] [place] [address] Office [address] [place] [address] Theresa Gutierres, ALBERT CBC with auto differential, Differential, auto 12/18/2024 Orders Only [facility] [address] [place] [address] Medical Office [address] [place] [address] Michael Terry MD 12/16/[address] [place] [address] Chalino Chapa MD 12/09/[address] [place] [address] Chalino Chapa MD 12/09/2024 Documentation [facility] [address] [place] [address] Medical [address] [facility] [address] [place] [address] Betty Sewell RN 12/03/2024 9:30 AM CDT Infusion [address] [place] [address] Bud Rubio RN MDS (myelodysplastic syndrome) (HCC) 12/03/2024 9:00 AM CDT Office Visit [facility] [address] [place] [address] Medical Office Bldg [address] [place] [address] Chalino Chapa MD Myelodysplastic syndrome (HCC) (Primary Dx); Anemia in neoplastic disease; MDS (myelodysplastic syndrome) (HCC) 12/03/2024 8:30 AM CDT Lab [address] [place] [address] MDS (myelodysplastic syndrome) (HCC); Myelodysplastic syndrome (HCC) 11/29/2024 9:00 AM CDT Infusion [address] [place] [address] Radha Veliz, ALBERT Anemia in neoplastic disease; MDS (myelodysplastic syndrome) (HCC) 11/29/2024 8:30 AM CDT Lab [address] [place] [address] Anemia in neoplastic disease; MDS (myelodysplastic syndrome) (HCC) 11/28/2024 Orders Only [facility] [address] [place] [address] Medical Office Bldg [address] [place] [address] Chalino Chapa MD 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); MDS (myelodysplastic syndrome) (HCC) 11/28/2024 Telephone [facility] [address] [place] [address] Office [address] [place] [address] Anisa Villagran, Ashley 11/26/2024 9:45 AM CDT Lab [address] [place] [address] MDS (myelodysplastic syndrome) ([facility]) 11/19/2024 10:00 AM CDT Infusion [address] [place] [address] Betty Donaldson RN MDS (myelodysplastic syndrome) ([facility]) 11/19/2024 9:45 AM CDT Lab [address] [place] [address] MDS (myelodysplastic syndrome) ([facility]) 11/14/2024 10:00 AM CDT Infusion [address] [place] [address] Radha Veliz, ALBERT 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 [address] [place] [address] Chalino Chapa MD 11/12/2024 Telephone [facility] [address] [place] [address] [address] [place] [address] Theresa Gutierres, ALBERT 11/11/2024 10:30 AM CDT Infusion [address] [place] [address] Emile Jackson, ALBERT Encounter for care related to Port-a-Cath (Primary Dx); Myelodysplastic syndrome (HCC); MDS (myelodysplastic syndrome) (HCC) 11/11/2024 10:15 AM CDT Office Visit [facility] [address] [place] [address] [address] [place] [address] Chalino Chapa MD MDS (myelodysplastic syndrome) (HCC) (Primary Dx); Myelodysplastic syndrome (HCC) 11/11/2024 9:45 AM CDT Lab [address] [place] [address] Myelodysplastic syndrome (HCC); MDS (myelodysplastic syndrome) (HCC); Chronic anemia 10/28/2024 Orders Only [facility] [address] [place] [address] [address] [place] [address] Chalino Chapa MD MDS (myelodysplastic syndrome) (HCC) (Primary Dx); Chronic anemia 10/21/2024 9:00 AM CDT Infusion [address] [place] [address] MDS (myelodysplastic syndrome) (HCC) 10/21/2024 8:45 AM CDT Office Visit [facility] [address] [place] [address] [address] [place] [address] Milla Armenta, CLAUDIA Myelodysplastic syndrome (HCC) (Primary Dx); MDS (myelodysplastic syndrome) (HCC) 10/21/2024 8:15 AM CDT Lab [address] [place] [address] MDS (myelodysplastic syndrome) (HCC) 10/17/2024 12:30 PM CDT Infusion [address] [place] [address] 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); MDS (myelodysplastic syndrome) (HCC); Encounter for care related to Port-a-Cath 10/17/2024 11:15 AM CDT Lab [address] [place] [address] MDS (myelodysplastic syndrome) (HCC) 10/17/2024 Orders Only [facility] [address] [place] [address] Medical Office Bldg [address] [place] [address] Chalino Chapa MD MDS (myelodysplastic syndrome) (HCC) (Primary Dx); Anemia in neoplastic disease 10/14/2024 8:30 AM CDT Infusion [address] [place] [address] MDS (myelodysplastic syndrome) (HCC) 10/14/2024 8:00 AM CDT Lab [address] [place] [address] MDS (myelodysplastic syndrome) (HCC) 10/14/2024 8:00 AM CDT Office Visit [facility] [address] [place] [address] Medical Office Bld[address] [place] [address] Chalino Chapa MD MDS (myelodysplastic syndrome) (HCC) (Primary Dx); Interstitial lung disease (HCC) 10/14/[address] [place] [address] Yadi Gtz RN from Last 3 Months Immunizations Immunization Administration [...] ge ts checked yearly MDS (myelodysplastic syndrome) ([facility]) Closed fracture of distal en d of humerus 09/29/2021 Closed fracture of fifth met atarsal bone 10/06/2021 Covid-19 01/21/2020 Pneumonia 01/21/2020 Tear of medial meniscus of l eft knee, current 06/06/2018 Added automatically from [employer] [facility] for surgery [id number] PONV (postoperative nausea a nd vomiting) Anxiety [...] drink = 0.6 oz pur e alcohol) [facility] Utilities Answer Date Recorded In the past 12 months has th e electric, gas, oil, or water company [...] often do you attend chur ch or tenriism services? Never 09/30/2024 Do you belong to any clubs o r organizations such as anabaptism groups, unions, fraternal or athletic groups, or [...] in the past 12 m [facility], were you homeless or living in a penitentiary (including now)? No 10/02/2024 Personal Safety Answer Date Recorded Have you ever been in or are you currently in a harmful physical or emotional relationship or is someone making you feel afraid or unsafe? Denies 09/28/2024 Comments Unknown Sex and Gender Information Value Date Recorded Sex Assigned at Not on file Legal Sex Female 1:43 AM [employer] Gender Identity Not on file Sexual Orientation [...] 1958 Well Visit 65+ 2006 Covid-19 Vaccine (2024-2 6 season) 2024 01/23/2022, 09/24/2021, 02/01/2021, Additional history exists Influenza Vaccine (#1) 2024 , 01/07/2022, 02/01/2021, Additional history exists Fall Risk Assessment 10/07/2025 10/07/2024, 04/30/2024, 04/29/2024, Additional history exists DTaP/Tdap/Td Vaccine (2 - Td or Tdap) 09/08/2029 09/09/2019 Pneumococcal vaccine 65+ Completed 021, 05/18/2016, 04/03/2016, Additional history exists Zoster Vaccine Completed 03/29/2022, 10/02, 04/03/2016 Medical Devices Implanted Type Area Power Tool Repairer Device Identifier Shelf Expiration Date Model / Serial / Lot [employer] Powerport Mri Airguard 8fr 1 Lumen Attachable Catheter Latex Free [id number] - [id number] Implanted:Qty: 1 on 11/20/2023 by Shade Red MD at [facility] Right: Chest Emre Chaparrita 09/30/2024 [id number] / / [id number] Procedures Procedure Name Priority Date/Time Associated Diagnosis [...] 8:00 AM CDT MDS (myelodysplastic syndrome) (HCC) from Last 3 Months Results * Transfuse RBC (01/06/2025 12:34 PM CDT) Blood us Chalino Chapa MD BLOOD TRANSFUSION ORDERAB LES Final Result * Prepare RBC (01/06/2025 10:34 AM CDT) Unit Number [id number] Product code [id number] [facility] ([place]) Blood Expiration Date [facility] ([place]) Product Blood Type (for scanning) 9500 [facility] ([place]) Product Blood Type ONEG [facility] ([place]) Dispense Status DISPENSED [facility] ([place]) us Chalino Chapa MD BLOOD BANK PRODUCT ORDERA BLES Final Result [facility] ([place]) [address] [place] [address] Department [place] [address] * Prepare RBC: 1 Units (01/06/2025 10:08 AM CDT) Units requested 1 Comment:Testing performed by : [place], [address] Units requested Ready EMMY [facility] ([place]) Comment:Testing performed by : [place], [address] Blood 01/06/2025 10:0 8 AM CDT 01/06/2025 10:08 AM CDT Narrative [facility] ([place]) - 01/06/2025 10:08 AM CDT Are special requirements needed? (All products are leukoreduced and CMV- safe)->No us Chalino Chapa MD BLOOD BANK PRODUCT ORDERA BLES Final Result [facility] ([place]) 1 [facility] Department [place] [address] * Crossmatch (01/06/2025 10:06 AM CDT) Crossmatch Compatible SABRA Silva ([place]) Unit number for crossmatch [id number] [facility] ([place]) Blood 01/06/2025 10:0 6 AM CDT 01/06/2025 10:06 AM CDT us Chalino Chapa MD LAB BLOOD BANK TEST ORDER LAITH Final Result Performing Organization Address City/[facility] Co de Phone Number [facility] ([place]) 1 [facility] Department [place] [address] * (ABNORMAL) Differential, auto (01/06/2025 9:10 AM CDT) Neutrophil abs 1.18(L) 1.50 - 6.50 K/cumm [facility] ([place]) Comment:Testing performed by : [facility] [address], Medical Office [facility] [address], [place] [address] Imm gran abs 0.02 0.00 - 0.10 K/cumm [facility] ([place]) Comment:Testing performed by : [facility] [address], Medical Office [facility] [address], [place] [address] Lymphocyte abs 0.48(L) 0.80 - 3.30 K/cumm [facility] ([place]) Comment:Testing performed by : [facility] [address], Medical Office [facility] [address], [place] [address] Monocyte abs 0.16(L) 0.20 - 0.80 K/cumm [facility] ([place]) Comment:Testing performed by : [facility] [address], Medical Office [facility] [address], [place] [address] Eosinophil abs 0.11 0.00 - 0.50 K/cumm [facility] ([place]) Comment:Testing performed by : [facility] [address], Medical Office [facility] [address], [place] [address] Basophil abs 0.03 0.00 - 0.10 K/cumm [facility] ([place]) Comment:Testing performed by : [facility] [address], Medical Office [facility] [address], [place] [address] Neutrophil pct 59.6 % [facility] ([place]) Comment: Interpretive Data Percent cell count reference ranges are not reported, since discordance with absolute values may lead to misinterpretation of CBC data. Current Interpretive Data was last revised on 2022. Testing performed by: [facility] [address], Medical Office [facility] [address], [place] [address] Imm gran pct 1.0 % [facility] ([place]) Comment: Interpretive Data Percent cell count reference ranges are not reported, since discordance with absolute values may lead to misinterpretation of CBC data. Current Interpretive Data was last revised on 2022. Testing performed by: [facility] [address], Medical Office [facility] [address], [place] [address] Lymphocyte pct 24.2 % [facility] ([place]) Comment: Interpretive Data Percent cell count reference ranges are not reported, since discordance with absolute values may lead to misinterpretation of CBC data. Current Interpretive Data was last revised on 2022. Testing performed by: [facility] [address], Medical Office [facility] [address], [place] [address] Monocyte pct 8.1 % [facility] ([place]) Comment: Interpretive Data Percent cell count reference ranges are not reported, since discordance with absolute values may lead to misinterpretation of CBC data. Current Interpretive Data was last revised on 2022. Testing performed by: [facility] [address], Medical Office [facility] [address], [place] [address] Eosinophil pct 5.6 % [facility] ([place]) Comment: Interpretive Data Percent cell count reference ranges are not reported, since discordance with absolute values may lead to misinterpretation of CBC data. Current Interpretive Data was last revised on 2022. Testing performed by: [facility] [address], Medical Office [facility] [address], [place] [address] Basophil pct 1.5 % [facility] ([place]) Comment: Interpretive Data Percent cell count reference ranges are not reported, since discordance with absolute values may lead to misinterpretation of CBC data. Current Interpretive Data was last revised on 2022. Testing performed by: [facility] [address], Medical Office [facility] [address], [place] [address] Blood 01/06/2025 9:10 AM CDT 01/06/2025 9:14 AM CDT Chalino Chapa MD LAB BLOOD ORDERABLES Aylin freedman Result [facility] ([place]) 1 [facility] [place] [address] * (ABNORMAL) CBC with auto differential (01/06/2025 9:10 AM CDT) WBC 1.98(L) 3.80 - 9.90 K/cumm [facility] ([place]) Comment:Testing performed by : [facility] [address], Medical Office [facility] [address], [place] [address] Hgb 7.1(L) 11.9 - 15.5 g/dL [facility] ([place]) Comment:Testing performed by : [facility] [address], Medical Office [facility] [address], [place] [address] Hct 21.9(L) 35.6 - 45.5 % [facility] ([place]) Comment:Testing performed by : [facility] [address], Medical Office [facility] [address], [place] [address] Plt 154 150 - 400 K/cumm [facility] ([place]) Comment:Testing performed by : [facility] [address], Medical Office [facility] [address], [place] [address] MPV 11.2 9.1 - 12.3 fL [facility] ([place]) Comment:Testing performed by : [facility] [address], Medical Office [facility] [address], [place] [address] RBC 1.92(L) 3.90 - 5.20 M/cumm [facility] ([place]) Comment:Testing performed by : [facility] [address], Medical Office [facility] [address], [place] [address] MCV 114.1(H) 81.3 - 96.4 fL [facility] ([place]) Comment:Testing performed by : [facility] [address], Medical Office [facility] [address], [place] [address] MCH 37.0(H) 27.1 - 33.3 pg [facility] ([place]) Comment:Testing performed by : [facility] [address], Medical Office [facility] [address], [place] [address] MCHC 32.4 32.3 - 35.7 g/dL [facility] ([place]) Comment:Testing performed by : [facility] [address], Medical Office [facility] [address], [place] [address] RDW CV 21.4(H) 11.1 - 14.9 % [facility] ([place]) Comment:Testing performed by : [facility] [address], Medical Office [facility] [address], [place] [address] RDW SD 88.7(H) 35.7 - 48.1 fL [facility] ([place]) Comment:Testing performed by : [facility] [address], Medical Office [facility] [address], [place] [address] Blood 01/06/2025 9:10 AM CDT 01/06/2025 9:14 AM CDT Narrative [facility] ([place]) - 01/06/2025 9:17 AM CDT 01/07, 01/14, 01/21, 01/28 us Chalino Chapa MD LAB BLOOD ORDERABLES Aylin tano Result [facility] ([place]) 1 [facility] Department [place] [address] * ABO/Rh (01/06/2025 9:10 AM CDT) ABO/Rh O Positive Comment:Testing performed by : [facility], [place], [address] Blood 01/06/2025 9:10 AM CDT 01/06/2025 9:26 AM CDT Narrative [facility] ([place]) - 01/06/2025 10:04 AM CDT 01/07, 01/14, 01/21, 01/28 Has the patient had Daratumumab or Isatuximab in the past 6 months?->Unknown Chalino Chapa MD LAB BLOOD BANK TEST ORDER LAITH Final Result [facility] ([place]) [address] [place] [address] Department [place] [address] * Antibody screen (01/06/2025 9:10 AM CDT) Pathologist [facility] Rivera, indirect, Gel Interpretation Negative ABSC Comment:Testing performed by : [facility], [facility], [place], [address] Blood 01/06/2025 9:10 AM CDT 01/06/2025 9:26 AM CDT Narrative [facility] ([place]) - 01/06/2025 10:04 AM CDT 01/07, 01/14, 01/21, 01/28 Has the patient had Daratumumab or Isatuximab in the past 6 months?->Unknown Chalino Chapa MD LAB BLOOD BANK TEST ORDER LAITH Final Result S[facility] ([place]) [address] [place] [address] Department [place] [address] * eGFR (12/31/2024 8:55 AM CDT) Pathologist [facility] eGFR >90 >=60 mL/min/1. 73 m2 [...] was last reviewed 2021. Testing performed by: [facility], [facility], [place], [address] Blood 12/31/2024 8:55 AM CDT 12/31/2024 4:08 PM CDT us Chalino Chapa MD LAB BLOOD ORDERABLES Aylin freedman Result [facility] ([place]) 1 [facility] Department [place] [address] * (ABNORMAL) Differential, auto (12/31/2024 8:55 AM CDT) Neutrophil abs 1.01(L) 1.50 - 6.50 K/cumm [facility] ([place]) Comment:Testing performed by : [facility] [address], Medical Office [facility] [address], [place] [address] Imm gran abs 0.00 0.00 - 0.10 K/cumm [facility] ([place]) Comment:Testing performed by : [facility] [address], Medical Office [facility] [address], [place] [address] Lymphocyte abs 0.39(L) 0.80 - 3.30 K/cumm [facility] ([place]) Comment:Testing performed by : [facility] [address], Medical Office [facility] [address], [place] [address] Monocyte abs 0.14(L) 0.20 - 0.80 K/cumm [facility] ([place]) Comment:Testing performed by : [facility] [address], Medical Office [address], [place] [address] Eosinophil abs 0.04 0.00 - 0.50 K/cumm [facility] ([place]) Comment:Testing performed by : [facility] [address], Medical Office [address], [place] [address] Basophil abs 0.02 0.00 - 0.10 K/cumm [facility] ([place]) Comment:Testing performed by : [facility] [address], Medical Office [facility] [address], [place] [address] Neutrophil pct 63.0 % [facility] R [facility] ([place]) Comment: Interpretive Data Percent cell count reference ranges are not reported, since discordance with absolute values may lead to misinterpretation of CBC data. Current Interpretive Data was last revised on 2022. Testing performed by: [facility] [address], Medical Office [facility] [address], [place] [address] Imm gran pct 0.0 % [facility] ([place]) Comment: Interpretive Data Percent cell count reference ranges are not reported, since discordance with absolute values may lead to misinterpretation of CBC data. Current Interpretive Data was last revised on 2022. Testing performed by: [facility] [address], Medical Office [facility] [address], [place] [address] Lymphocyte pct 24.4 % CERNE R [facility] ([place]) Comment: Interpretive Data Percent cell count reference ranges are not reported, since discordance with absolute values may lead to misinterpretation of CBC data. Current Interpretive Data was last revised on 2022. Testing performed by: [facility] [address], Medical Office [facility] [address], [place] [address] Monocyte pct 8.8 % [facility] ([place]) Comment: Interpretive Data Percent cell count reference ranges are not reported, since discordance with absolute values may lead to misinterpretation of CBC data. Current Interpretive Data was last revised on 2022. Testing performed by: [facility] [address], Medical Office [address], [place] [address] Eosinophil pct 2.5 % CERNE [facility] ([place]) Comment: Interpretive Data Percent cell count reference ranges are not reported, since discordance with absolute values may lead to misinterpretation of CBC data. Current Interpretive Data was last revised on 2022. Testing performed by: [facility] [address], Medical Office [facility] [address], [place] [address] Basophil pct 1.3 % SABRA [facility] ([place]) Comment: Interpretive Data Percent cell count reference ranges are not reported, since discordance with absolute values may lead to misinterpretation of CBC data. Current Interpretive Data was last revised on 2022. Testing performed by: [facility] [address], Medical Office [facility] [address], [place] [address] Blood 12/31/2024 8:55 AM CDT 12/31/2024 9:02 AM CDT Chalino Chapa MD LAB BLOOD ORDERABLES Aylin freedman Result SABRA [facility] ([place]) 1 [facility] [place] [address] * (ABNORMAL) CBC with auto differential (12/31/2024 8:55 AM CDT) WBC 1.60(L) 3.80 - 9.90 K/cumm [facility]RA [facility] ([place]) Comment:Testing performed by : [facility] [address], Medical Office [facility] [address], [place] [address] Hgb 8.0(L) 11.9 - 15.5 g/dL [facility]RA [facility] ([place]) Comment:Testing performed by : [facility] [address], Medical Office [facility] [address], [place] [address] Hct 24.3(L) 35.6 - 45.5 % SABRA [facility] ([place]) Comment:Testing performed by : [facility] [address], Medical Office [facility] [address], [place] [address] Plt 169 150 - 400 K/cumm [facility]RA [facility] ([place]) Comment:Testing performed by : [facility] [address], Medical Office [facility] [address], [place] [address] MPV 10.6 9.1 - 12.3 fL [facility]RA [facility] ([place]) Comment:Testing performed by : [facility] [address], Medical Office [facility] [address], [place] [address] RBC 2.14(L) 3.90 - 5.20 M/cumm AMYNER [facility] ([place]) Comment:Testing performed by : [facility] [address], Medical Office [facility] [address], [place] [address] MCV 113.6(H) 81.3 - 96.4 fL AMYNER [facility] ([place]) Comment:Testing performed by : [facility] [address], Medical Office [facility] [address], [place] [address] MCH 37.4(H) 27.1 - 33.3 pg AMYNER [facility] ([place]) Comment:Testing performed by : [facility] [address], Medical Office [facility] [address], [place] [address] MCHC 32.9 32.3 - 35.7 g/dL AMYNER [facility] ([place]) Comment:Testing performed by : [facility] [address], Medical Office [facility] [address], [place] [address] RDW CV 21.1(H) 11.1 - 14.9 % AM[facility]NER [facility] ([place]) Comment:Testing performed by : [facility] [address], Medical Office [facility] [address], [place] [address] RDW SD 88.1(H) 35.7 - 48.1 fL AMYNER [facility] ([place]) Comment:Testing performed by : [facility] [address], Medical Office [facility] [address], [place] [address] Blood 12/31/2024 8:55 AM CDT 12/31/2024 9:02 AM CDT Narrative [facility] ([place]) - 12/31/2024 9:05 AM CDT Cbc 12/10, 12/17, 12/24, AND 12/[address] Chapa us Chalino Chapa MD LAB BLOOD ORDERABLES Aylin l Result SABRA [facility] ([place]) 1 [facility] Department [place] [address] * (ABNORMAL) Comprehensive metabolic panel (12/31/2024 8:55 [...] Aylin l Result SABRA ROGERS ([place]) 1 [facility] Department [place] [address] * Transfuse RBC (12/24/2024 2:50 PM CDT) Blood us Chalino Chapa MD BLOOD TRANSFUSION ORDERAB LES Final Result * Prepare RBC: 1 Units (12/24/2024 1:23 PM CDT) Units requested 1 Comment:Testing performed by : [facility], [place], [address] Units requested Ready EMMY ROGERS (BREDA) Comment:Testing performed by : [place], [address] Blood 12/24/2024 1:23 PM CDT 12/24/2024 1:23 PM CDT Narrative SABRA ROGERS ([place]) - 12/24/2024 1:28 PM CDT Are special requirements needed? (All products are leukoreduced and CMV- safe)->No us Chalino Chapa MD BLOOD BANK PRODUCT ORDERA BLES Final Result Performing Organization Address City/[facility]/ZIP Co de Phone Number SABRA ROGERS ([place]) 1 [facility] Department [place] [address] * Prepare RBC (12/24/2024 12:57 PM CDT) Unit Number [id number] Product code [id number] [facility] ([place]) Blood Expiration Date [id number] [facility] ([place]) Product Blood Type (for scanning) 5100 [facility] ([place]) Product Blood Type OPOS [facility]A [facility] ([place]) Dispense Status DISPENSED SABRA ROGERS ([place]) us Chalino Chapa MD BLOOD BANK PRODUCT ORDERA BLES Final Result SABRA [facility] ([place]) 1 [facility] Department [place] [address] * (ABNORMAL) Differential, auto (12/24/2024 11:35 AM CDT) Neutrophil abs 1.01(L) 1.50 - 6.50 K/cumm [facility] ([place]) Comment:Testing performed by : [facility] [address], Medical Office [facility] [address], [place] [address] Imm gran abs 0.02 0.00 - 0.10 K/cumm [facility] ([place]) Comment:Testing performed by : [facility] [address], Medical Office [facility] [address], [place] [address] Lymphocyte abs 0.74(L) 0.80 - 3.30 K/cumm [facility] ([place]) Comment:Testing performed by : [facility] [address], Medical Office [facility] [address], [place] [address] Monocyte abs 0.14(L) 0.20 - 0.80 K/cumm [facility] ([place]) Comment:Testing performed by : [facility] [address], Medical Office [facility] [address], [place] [address] Eosinophil abs 0.02 0.00 - 0.50 K/cumm [facility] ([place]) Comment:Testing performed by : [facility] [address], Medical Office [facility] [address], [place] [address] Basophil abs 0.03 0.00 - 0.10 K/cumm [facility] ([place]) Comment:Testing performed by : [facility] [address], Medical Office [facility] [address], [place] [address] Neutrophil pct 51.6 % CERNE R [facility] ([place]) Comment: Interpretive Data Percent cell count reference ranges are not reported, since discordance with absolute values may lead to misinterpretation of CBC data. Current Interpretive Data was last revised on 2022. Testing performed by: [facility] [address], Medical Office [facility] [address], [place] [address] Imm gran pct 1.0 % [facility] ([place]) Comment: Interpretive Data Percent cell count reference ranges are not reported, since discordance with absolute values may lead to misinterpretation of CBC data. Current Interpretive Data was last revised on 2022. Testing performed by: [facility] [address], Medical Office [facility] [address], [place] [address] Lymphocyte pct 37.8 % CERNE [facility] ([place]) Comment: Interpretive Data Percent cell count reference ranges are not reported, since discordance with absolute values may lead to misinterpretation of CBC data. Current Interpretive Data was last revised on 2022. Testing performed by: [facility] [address], Medical Office [facility] B [facility] [address], [place] [address] Monocyte pct 7.1 % [facility] ([place]) Comment: Interpretive Data Percent cell count reference ranges are not reported, since discordance with absolute values may lead to misinterpretation of CBC data. Current Interpretive Data was last revised on 2022. Testing performed by: [facility] [address], Medical Office [facility] [address], [place] [address] Eosinophil pct 1.0 % CERNE [facility] ([place]) Comment: Interpretive Data Percent cell count reference ranges are not reported, since discordance with absolute values may lead to misinterpretation of CBC data. Current Interpretive Data was last revised on 2022. Testing performed by: [facility] [address], Medical Office [facility] [address], [place] [address] Basophil pct 1.5 % [facility] ([place]) Comment: Interpretive Data Percent cell count reference ranges are not reported, since discordance with absolute values may lead to misinterpretation of CBC data. Current Interpretive Data was last revised on 2022. Testing performed by: [facility] [address], Medical Office [facility] B [facility] [address], [place] [address] Blood 12/24/2024 11:3 5 AM CDT 12/24/2024 11:36 AM CDT us Chalino Chapa MD LAB BLOOD ORDERABLES Aylin freedman Result SABRA [facility] ([place]) 1 [facility] Department [place] [address] * (ABNORMAL) CBC with auto differential (12/24/2024 11:35 AM CDT) WBC 1.96(L) 3.80 - 9.90 K/cumm [facility] ([place]) Comment:Testing performed by : [facility] [address], Medical Office [facility] [address], [place] [address] Hgb 7.5(L) 11.9 - 15.5 g/dL [facility] ([place]) Comment:Testing performed by : [facility] [address], Medical Office [facility] [address], [place] [address] Hct 22.6(L) 35.6 - 45.5 % [facility] ([place]) Comment:Testing performed by : [facility] [address], Medical Office [facility] [address], [place] [address] Plt 168 150 - 400 K/cumm [facility] ([place]) Comment:Testing performed by : [facility] [address], Medical Office [facility] [address], [place] [address] MPV 11.2 9.1 - 12.3 fL [facility] ([place]) Comment:Testing performed by : [facility] [address], Medical Office [facility] B [facility] [address], [place] [address] RBC 1.96(L) 3.90 - 5.20 M/cumm [facility] ([place]) Comment:Testing performed by : [facility] [address], Medical Office [facility] [address], [place] [address] MCV 115.3(H) 81.3 - 96.4 fL [facility] ([place]) Comment:Testing performed by : [facility] [address], Medical Office [facility] [address], [place] [address] MCH 38.3(H) 27.1 - 33.3 pg [facility] ([place]) Comment:Testing performed by : [facility] [address], Medical Office [facility] [address], [place] [address] MCHC 33.2 32.3 - 35.7 g/dL SABRA ROGERS ([place]) Comment:Testing performed by : [facility] [address], Medical Office [facility] [address], [place] [address] RDW CV 22.8(H) 11.1 - 14.9 % SABRA ROGERS ([place]) Comment:Testing performed by : [facility] [address], Medical Office [facility] [address], [place] [address] RDW SD 94.4(H) 35.7 - 48.1 fL SABRA ROGERS ([place]) Comment:Testing performed by : [facility] [address], Medical Office [facility] [address], [place] [address] Blood 12/24/2024 11:3 5 AM CDT 12/24/2024 11:36 AM CDT Narrative SABRA ROGERS ([place]) - 12/24/2024 11:38 AM CDT Cbc 12/10, 12/17, 12/24, AND 12/[address] Chapa us Chalino Chapa MD LAB BLOOD ORDERABLES Aylin l Result SABRA SUE ([place]) 1 [facility] Department [place] [address] * ABO/Rh (12/24/2024 11:35 AM CDT) ABO/Rh O Positive Comment:Testing performed by : [facility], [address] [facility], [place], [address] Blood 12/24/2024 11:3 5 AM CDT 12/24/2024 12:16 PM CDT Narrative SABRA ROGERS ([place]) - 12/24/2024 12:43 PM CDT 11/19, 11/26, 12/03 Has the patient had Daratumumab or Isatuximab in the past 6 months?->Unknown Witnessed by Emile Jackson us Chalino Chapa MD LAB BLOOD BANK TEST ORDER LAITH Final Result SABRA [facility] ([place]) 1 [facility] Department [place] [address] * Crossmatch (12/24/2024 11:35 AM CDT) Crossmatch Compatible SABRA Ricardo ([place]) Unit number for crossmatch [id number] [facility] ([place] Blood 12/24/2024 11:3 5 AM CDT 12/24/2024 12:16 PM CDT Chalino Chapa MD LAB BLOOD BANK TEST ORDER LAITH Final Result Performing Organization Address [facility] Co de Phone Number SABRA [facility] ([place]) [address] [place] [address] * Antibody screen (12/24/2024 11:35 AM CDT) Rivera, indirect, Gel Interpretation Negative ABSC Comment:Testing performed by : [facility], [place], [address] Blood 12/24/2024 11:3 5 AM CDT 12/24/2024 12:16 PM CDT Narrative SABRA [facility] ([place]) - 12/24/2024 12:49 PM CDT 11/19, 11/26, 12/03 Has the patient had Daratumumab or Isatuximab in the past 6 months?->Unknown us Chalino Chapa MD LAB BLOOD BANK TEST ORDER LAITH Final Result Performing Organization Address City/[facility]/ZIP Co de Phone Number SABRA [facility] ([place]) 1 [facility] Department [place] [address] * Transfuse RBC (12/18/2024 2:40 PM CDT) Blood us Michael Terry MD BLOOD TRANSFUSION ORDERABLES Final Result * Prepare RBC (12/18/2024 12:15 PM CDT) Unit Number [id number] Product code [id number] SABRA ROGERS ([place]) Blood Expiration Date SABRA ROGERS ([place]) Product Blood Type (for scanning) 5100 S[facility]RA [facility] ([place]) Product Blood Type OPOS SABRA ROGERS ([place]) Dispense Status DISPENSED SABRA ROGERS ([place]) us Chalino Chapa MD BLOOD BANK PRODUCT ORDERA BLES Final Result Performing Organization Address City/[facility] Co de Phone Number SABRA ROGERS ([place]) 1 [facility] Department [place] [address] * Prepare RBC: 1 Units (12/18/2024 10:45 AM CDT) Units requested 1 Comment:Testing performed by : [place], [address] Units requested Ready AMY WOLF SUE (BREDA) Comment:Testing performed by : [place], [address] Blood 12/18/2024 10:4 5 AM CDT 12/18/2024 11:50 AM CDT Narrative [facility] ([place]) - 12/18/2024 11:51 AM CDT Are special requirements needed? (All products are leukoreduced and CMV- safe)->No us Michael Terry MD BLOOD BANK PRODUCT ORDERABLES Final Result Performing Organization Address [facility]/ZIP Co de Phone Number SABRA ROGERS ([place]) 1 [facility] Department [place] [address] * (ABNORMAL) Differential, auto (12/18/2024 10:20 AM CDT) Neutrophil abs 1.27(L) 1.50 - 6.50 K/cumm SABRA ROGERS ([place]) Comment:Testing performed by : [facility] [place], [address] [facility] , Medical Office [address], [place] [address] Imm gran abs 0.01 0.00 - 0.10 K/cumm [facility] ([place]) Comment:Testing performed by : [facility] [address], Medical Office [address], [place] [address] Lymphocyte abs 0.46(L) 0.80 - 3.30 K/cumm [facility] ([place]) Comment:Testing performed by : [facility] [address], Medical Office [address], [place] [address] Monocyte abs 0.15(L) 0.20 - 0.80 K/cumm [facility] ([place]) Comment:Testing performed by : [facility] [address], Medical Office [address], [place] [address] Eosinophil abs 0.02 0.00 - 0.50 K/cumm [facility] ([place]) Comment:Testing performed by : [facility] [address], Medical Office [address], [place] [address] Basophil abs 0.02 0.00 - 0.10 K/cumm [facility] ([place]) Comment:Testing performed by : [facility] [address], Medical Office [facility] [address], [place] [address] Neutrophil pct 65.9 % CERNE R [facility] ([place]) Comment: Interpretive Data Percent cell count reference ranges are not reported, since discordance with absolute values may lead to misinterpretation of CBC data. Current Interpretive Data was last revised on 2022. Testing performed by: [facility] [address], Medical Office [facility] [address], [place] [address] Imm gran pct 0.5 % [facility] ([place]) Comment: Interpretive Data Percent cell count reference ranges are not reported, since discordance with absolute values may lead to misinterpretation of CBC data. Current Interpretive Data was last revised on 2022. Testing performed by: [facility] [address], Medical Office [address], [place] [address] Lymphocyte pct 23.8 % CERNE R [facility] ([place]) Comment: Interpretive Data Percent cell count reference ranges are not reported, since discordance with absolute values may lead to misinterpretation of CBC data. Current Interpretive Data was last revised on 2022. Testing performed by: [facility] [address], Medical Office [facility] [address], [place] [address] Monocyte pct 7.8 % SABRA ROGERS ([place]) Comment: Interpretive Data Percent cell count reference ranges are not reported, since discordance with absolute values may lead to misinterpretation of CBC data. Current Interpretive Data was last revised on 2022. Testing performed by: [facility] [address], Medical Office [facility] [address], [place] [address] Eosinophil pct 1.0 % EMELINA ROGERS ([place]) Comment: Interpretive Data Percent cell count reference ranges are not reported, since discordance with absolute values may lead to misinterpretation of CBC data. Current Interpretive Data was last revised on 2022. Testing performed by: [facility] [address], Medical Office [facility] [address], [place] [address] Basophil pct 1.0 % SABRA ROGERS ([place]) Comment: Interpretive Data Percent cell count reference ranges are not reported, since discordance with absolute values may lead to misinterpretation of CBC data. Current Interpretive Data was last revised on 2022. Testing performed by: [facility] [address], Medical Office [facility] [address], [place] [address] Blood 12/18/2024 10:2 0 AM CDT 12/18/2024 10:30 AM CDT us Chalino Chapa MD LAB BLOOD ORDERABLES Aylin freedman Result SABRA ROGERS ([place]) 1 [facility] [place] [address] * (ABNORMAL) CBC with auto differential (12/18/2024 10:20 AM CDT) WBC 1.93(L) 3.80 - 9.90 K/cumm SABRA ROGERS ([place]) Comment:Testing performed by : [facility] [address], Medical Office [facility] [address], [place] [address] Hgb 6.7(L) 11.9 - 15.5 g/dL SABRA ROGERS ([place]) Comment:Testing performed by : [facility] [address], Medical Office [address], [place] [address] Hct 20.7(L) 35.6 - 45.5 % [facility] ([place]) Comment:Testing performed by : [facility] [address], Medical Office [address], [place] [address] Plt 152 150 - 400 K/cumm [facility] ([place]) Comment:Testing performed by : [facility] [address], Medical Office [address], [place] [address] MPV 11.1 9.1 - 12.3 fL [facility] ([place]) Comment:Testing performed by : [facility] [address], Medical Office [facility] [address], [place] [address] RBC 1.70(L) 3.90 - 5.20 M/cumm [facility] ([place]) Comment:Testing performed by : [facility] [address], Medical Office [facility] [address], [place] [address] MCV 121.8(H) 81.3 - 96.4 fL [facility] ([place]) Comment:Testing performed by : [facility] [address], Medical Office [facility] [address], [place] [address] MCH 39.4(H) 27.1 - 33.3 pg [facility] ([place]) Comment:Testing performed by : [facility] [address], Medical Office [facility] [address], [place] [address] MCHC 32.4 32.3 - 35.7 g/dL [facility] ([place]) Comment:Testing performed by : [facility] [address], Medical Office [facility] [address], [place] [address] RDW CV 20.7(H) 11.1 - 14.9 % [facility] ([place]) Comment:Testing performed by : [facility] [address], Medical Office [address], [place] [address] RDW SD 91.4(H) 35.7 - 48.1 fL [facility] ([place]) Comment:Testing performed by : [facility] [address], Medical Office [address], [place] [address] Blood 12/18/2024 10:2 0 AM CDT 12/18/2024 10:30 AM CDT Narrative SABRA [facility] ([place]) - 12/18/2024 10:33 AM CDT Cbc 12/10, 12/17, 12/24, AND 12/[address] Chapa us Chalino Chapa MD LAB BLOOD ORDERABLES Aylin l Result SABRA [facility] ([place]) 1 [facility] Department [place] [address] * ABO/Rh (12/18/2024 10:20 AM CDT) ABO/Rh O Positive Comment:Testing performed by : [facility], [address] [facility] [facility], [place], [address] Blood 12/18/2024 10:2 0 AM CDT 12/18/2024 11:04 AM CDT Narrative [facility] ([place]) - 12/18/2024 11:45 AM CDT Has the patient had Daratumumab or Isatuximab in the past 6 months?->Unknown us Milla Armenta NP LAB BLOOD BANK TEST ORDERA BLES Final Result Performing Organization Address [facility] Co de Phone Number SABRA [facility] ([place]) [address] [place] [address] Department [place] [address] * Crossmatch (12/18/2024 10:20 AM CDT) Crossmatch Compatible SABRA Silva ([place]) Unit number for crossmatch [id number] [facility] ([place]) Blood 12/18/2024 10:2 0 AM CDT 12/18/2024 11:04 AM CDT us Chalino Chapa MD LAB BLOOD BANK TEST ORDER LAITH Final Result SABRA [facility] ([place]) [address] [place] [address] Department [place] [address] * Antibody screen (12/18/2024 10:20 AM CDT) Rivera, indirect, Gel Interpretation Negative ABSC Comment:Testing performed by : [facility], [facility], [place], [address] Blood 12/18/2024 10:2 0 AM CDT 12/18/2024 11:04 AM CDT Narrative SABRA ROGERS ([place]) - 12/18/2024 11:45 AM CDT Has the patient had Daratumumab or Isatuximab in the past 6 months?->Unknown Milla Armenta FIRE TECHNICIAN LAB BLOOD BANK TEST ORDERA BLES Final Result SABRA [facility] ([place]) 1 [facility] Department [place] [address] * eGFR (12/03/2024 8:30 AM CDT) eGFR [...] was last reviewed 2021. Testing performed by: [facility], [facility], [place], [address] Blood 12/03/2024 8:30 AM CDT 12/03/2024 8:42 AM CDT us Chalino Chapa MD LAB BLOOD ORDERABLES Aylin freedman Result [facility] ([place]) 1 [facility] Department [place] [address] * (ABNORMAL) Differential, auto (12/03/2024 8:30 AM CDT) Neutrophil abs 0.88(L) 1.50 - 6.50 K/cumm Comment:Testing performed by : [place], [address] Imm gran abs 0.02 0.00 - 0.10 K/cumm [facility] ([place]) Comment:Testing performed by : [facility], [place], [address] Lymphocyte abs 0.52(L) 0.80 - 3.30 K/cumm [facility] ([place]) Comment:Testing performed by : [facility], [place], [address] Monocyte abs 0.12(L) 0.20 - 0.80 K/cumm [facility] ([place]) Comment:Testing performed by : [place], [address] Eosinophil abs 0.03 0.00 - 0.50 K/cumm [facility] ([place]) Comment:Testing performed by : [place], [address] Basophil abs 0.01 0.00 - 0.10 K/cumm [facility] ([place]) Comment:Testing performed by : [place], [address] Neutrophil pct 55.7 % [facility] ([place]) Comment: Interpretive Data Percent cell count reference ranges are not reported, since discordance with absolute values may lead to misinterpretation of CBC data. Current Interpretive Data was last revised on 2017. Testing performed by: [place], [address] Imm gran pct 1.3 % [facility] ([place]) Comment: Interpretive Data Percent cell count reference ranges are not reported, since discordance with absolute values may lead to misinterpretation of CBC data. Current Interpretive Data was last revised on 2017. Testing performed by: [place], [address] Lymphocyte pct 32.9 % [facility] ([place]) Comment: Interpretive Data Percent cell count reference ranges are not reported, since discordance with absolute values may lead to misinterpretation of CBC data. Current Interpretive Data was last revised on 2017. Testing performed by: [place], [address] Monocyte pct 7.6 % [facility] ([place]) Comment: Interpretive Data Percent cell count reference ranges are not reported, since discordance with absolute values may lead to misinterpretation of CBC data. Current Interpretive Data was last revised on 2017. Testing performed by: [place], [address] Eosinophil pct 1.9 % [facility] ([place]) Comment: Interpretive Data Percent cell count reference ranges are not reported, since discordance with absolute values may lead to misinterpretation of CBC data. Current Interpretive Data was last revised on 2017. Testing performed by: [place], [address] Basophil pct 0.6 % [facility] ([place]) Comment: Interpretive Data Percent cell count reference ranges are not reported, since discordance with absolute values may lead to misinterpretation of CBC data. Current Interpretive Data was last revised on 2017. Testing performed by: [facility], [place], [address] Blood 12/03/2024 8:30 AM CDT 12/03/2024 8:58 AM CDT us Chalino Chapa MD LAB BLOOD ORDERABLES Aylin freedman Result SABRA ROGERS ([place]) 1 [facility] Department [place] [address] * (ABNORMAL) CBC with auto differential (12/03/2024 8:30 AM CDT) WBC 1.58(L) 3.80 - 9.90 K/cumm Comment:Testing performed by : [facility], [place], Hgb 8.1(L) 11.9 - 15.5 g/dL [facility] ([place]) Comment:Testing performed by : [place], Hct 24.2(L) 35.6 - 45.5 % [facility] ([place]) Comment:Testing performed by : [place], Plt 156 150 - 400 K/cumm [facility] ([place]) Comment:Testing performed by : [place], MPV 11.6 9.1 - 12.3 fL [facility] ([place]) Comment:Testing performed by : [place], RBC 2.11(L) 3.90 - 5.20 M/cumm [facility] ([place]) Comment:Testing performed by : [facility], [place], MCV 114.7(H) 81.3 - 96.4 fL [facility] ([place]) Comment:Testing performed by : [place], MCH 38.4(H) 27.1 - 33.3 pg [facility] ([place]) Comment:Testing performed by : [place], MCHC 33.5 32.3 - 35.7 g/dL [facility] ([place]) Comment:Testing performed by : [place], RDW CV 23.4(H) 11.1 - 14.9 % [facility] ([place]) Comment:Testing performed by : [place], RDW SD 94.7(H) 35.7 - 48.1 fL [facility] ([place]) Comment:Testing performed by : [place], NRBC abs 0.00 0.00 - 0.01 K/cumm [facility] ([place]) Comment:Testing performed by : [facility], [place], [address] Morphologic Screen Results confirmed by manual morphology review. [facility] ([place]) Comment:Testing performed by : [facility], [facility], [place], [address] Blood 12/03/2024 8:30 AM CDT 12/03/2024 8:58 AM CDT us Chalino Chapa MD LAB BLOOD ORDERABLES Aylin freedman Result [facility] ([place]) 1 [facility] Department [place] [address] * (ABNORMAL) Comprehensive metabolic panel (12/03/2024 8:30 AM CDT) Sodium 140 135 - 145 mmol/L [facility] ([place]) Potassium, pl 4.2 3.3 - 4.9 mmol/L [facility] ([place]) Chloride 99 97 - 110 mmol/L [facility] ([place]) CO2 31 22 - 32 mmol/L [facility] ([place]) Anion gap 10 2 - 15 mmol/L [facility] ([place]) BUN 10 6 - 25 mg/dL [facility] ([place]) Creatinine 0.61 0.60 - 1.10 mg/dL [facility] ([place]) Glucose 129 70 - 199 mg/dL [facility] ([place]) Comment: Interpretive Data Fasting glucose [...] MD LAB BLOOD ORDERABLES Aylin freedman Result [facility] ([place] 1 [facility] Department [place] [address] * (ABNORMAL) Blood smear review (11/29/2024 8:25 AM CDT) RBC morphology Consistent with RBC Indicies Comment:Testing performed by : [facility], [place], [address] Anisocytosis Moderate(A) [facility] ([place]) Comment:Testing performed by : [facility], [place], [address] Microcytes 3-7/HPF(A) SABRA Silva ([place]) Comment:Testing performed by : [facility], [place], [address] Macrocytes 3-7/HPF(A) SABRA Silva ([place]) Comment:Testing performed by : [facility], [place], [address] Elliptocytes 3-7/HPF(A) [facility] ([place]) Comment:Testing performed by : [place], [address] Teardrop cells 3-7/HPF(A) [facility] ([place]) Comment:Testing performed by : [facility], [place], [address] Platelet estimate Adequate [facility] ([place]) Comment:Testing performed by : [facility], [place], [address] Blood 11/29/2024 8:25 AM CDT 11/29/2024 8:43 AM CDT us Chalino Chapa MD LAB BLOOD ORDERABLES Aylin freedman Result [facility] ([place]) [address] [place] [address] Department [place] [address] * (ABNORMAL) Differential, auto (11/29/2024 8:25 AM CDT) Neutrophil abs 1.31(L) 1.50 - 6.50 K/cumm Comment:Testing performed by : [place], [address] Imm gran abs 0.01 0.00 - 0.10 K/cumm [facility] ([place]) Comment:Testing performed by : [facility], [place], [address] Lymphocyte abs 0.84 0.80 - 3.30 K/cumm [facility] ([place]) Comment:Testing performed by : [facility], [place], [address] Monocyte abs 0.18(L) 0.20 - 0.80 K/cumm [facility] ([place]) Comment:Testing performed by : [place], [address] Eosinophil abs 0.03 0.00 - 0.50 K/cumm [facility] ([place]) Comment:Testing performed by : [place], [address] Basophil abs 0.01 0.00 - 0.10 K/cumm [facility] ([place]) Comment:Testing performed by : [place], [address] Neutrophil pct 55.0 % [facility] ([place]) Comment: Interpretive Data Percent cell count reference ranges are not reported, since discordance with absolute values may lead to misinterpretation of CBC data. Current Interpretive Data was last revised on 2017. Testing performed by: [facility], [place], [address] Imm gran pct 0.4 % [facility] ([place]) Comment: Interpretive Data Percent cell count reference ranges are not reported, since discordance with absolute values may lead to misinterpretation of CBC data. Current Interpretive Data was last revised on 2017. Testing performed by: [place], [address] Lymphocyte pct 35.3 % [facility] ([place]) Comment: Interpretive Data Percent cell count reference ranges are not reported, since discordance with absolute values may lead to misinterpretation of CBC data. Current Interpretive Data was last revised on 2017. Testing performed by: [place], [address] Monocyte pct 7.6 % [facility] ([place]) Comment: Interpretive Data Percent cell count reference ranges are not reported, since discordance with absolute values may lead to misinterpretation of CBC data. Current Interpretive Data was last revised on 2017. Testing performed by: [place], [address] Eosinophil pct 1.3 % [facility] ([place]) Comment: Interpretive Data Percent cell count reference ranges are not reported, since discordance with absolute values may lead to misinterpretation of CBC data. Current Interpretive Data was last revised on 2017. Testing performed by: [facility], [place], [address] Basophil pct 0.4 % [facility] ([place]) Comment: Interpretive Data Percent cell count reference ranges are not reported, since discordance with absolute values may lead to misinterpretation of CBC data. Current Interpretive Data was last revised on 2017. Testing performed by: [place], [address] Blood 11/29/2024 8:25 AM CDT 11/29/2024 8:43 AM CDT us Chalino Chapa MD LAB BLOOD ORDERABLES Aylin freedman Result SABRA SUE ([place]) 1 [facility] Department [place] [address] * (ABNORMAL) CBC with auto differential (11/29/2024 8:25 AM CDT) WBC 2.38(L) 3.80 - 9.90 K/cumm Comment:Testing performed by : [facility], [place], Hgb 7.9(L) 11.9 - 15.5 g/dL [facility] ([place]) Comment:Testing performed by : [facility], [place], Hct 24.1(L) 35.6 - 45.5 % [facility] ([place]) Comment:Testing performed by : [facility], [place], Plt 158 150 - 400 K/cumm [facility] ([place]) Comment:Testing performed by : [facility], [place], MPV 11.1 9.1 - 12.3 fL [facility] ([place]) Comment:Testing performed by : [facility], [place], RBC 2.11(L) 3.90 - 5.20 M/cumm [facility] ([place]) Comment:Testing performed by : [facility], [place], MCV 114.2(H) 81.3 - 96.4 fL [facility] ([place]) Comment:Testing performed by : [facility], [place], MCH 37.4(H) 27.1 - 33.3 pg [facility] ([place]) Comment:Testing performed by : [facility], [place], MCHC 32.8 32.3 - 35.7 g/dL [facility] ([place]) Comment:Testing performed by : [facility], [place], RDW CV Not Measured 11.1 - 14.9 % [facility] ([place]) Comment:Testing performed by : [facility], [place], RDW SD Not Measured 35.7 - 48.1 fL [facility] ([place]) Comment:Testing performed by : [facility], [place], NRBC abs 0.00 0.00 - 0.01 K/cumm [facility] ([place]) Comment:Testing performed by : [facility], [place], Blood 11/29/2024 8:25 AM CDT 11/29/2024 8:43 AM CDT us Chalino Chapa MD LAB BLOOD ORDERABLES Aylin l Result SABRA ROGERS ([place]) 1 [facility] [place] [address] * ABO/Rh (11/29/2024 8:25 AM CDT) ABO/Rh O Positive Comment:Testing performed by : [place], [address] Blood 11/29/2024 8:25 AM CDT 11/29/2024 8:40 AM CDT Narrative SABRA SUE ([place]) - 11/29/2024 9:17 AM CDT Has the patient had Daratumumab or Isatuximab in the past 6 months?->No us Chalino Chapa MD LAB BLOOD BANK TEST ORDER LAITH Final Result Performing Organization Address [facility]/ZIP Co de Phone Number SABRA ROGERS ([place]) [address] [place] [address] [employer] [place] [address] * Antibody screen (11/29/2024 8:25 AM CDT) Rivera, indirect, Gel Interpretation Negative ABSC Comment:Testing performed by : [place], [address] Blood 11/29/2024 8:25 AM CDT 11/29/2024 8:40 AM CDT Narrative SABRA ROGERS ([place]) - 11/29/2024 9:17 AM CDT Has the patient had Daratumumab or Isatuximab in the past 6 months?->No us Chalino Chapa MD LAB BLOOD BANK TEST ORDER LAITH Final Result SABRA ROGERS ([place]) 1 [facility] [place] [address] * (ABNORMAL) CBC with auto differential (11/26/2024 9:50 AM CDT) WBC 1.44(L) 3.80 - 9.90 K/cumm Comment:Testing performed by : [place], [address] Hgb 7.7(L) 11.9 - 15.5 g/dL [facility] ([place]) Comment:Testing performed by : [place], [address] Hct 24.4(L) 35.6 - 45.5 % [facility] ([place]) Comment:Testing performed by : [place], [address] Plt 146(L) 150 - 400 K/cumm [facility] ([place]) Comment:Testing performed by : [place], [address] MPV 11.0 9.1 - 12.3 fL [facility] ([place]) Comment:Testing performed by : [place], [address] RBC 2.13(L) 3.90 - 5.20 M/cumm [facility] ([place]) Comment:Testing performed by : [place], [address] MCV 114.6(H) 81.3 - 96.4 fL [facility] ([place]) Comment:Testing performed by : [place], [address] MCH 36.2(H) 27.1 - 33.3 pg [facility] ([place]) Comment:Testing performed by : [place], [address] MCHC 31.6(L) 32.3 - 35.7 g/dL [facility] ([place]) Comment:Testing performed by : [place], [address] RDW CV 24.3(H) 11.1 - 14.9 % [facility] ([place]) Comment:Testing performed by : [place], [address] RDW SD 97.2(H) 35.7 - 48.1 fL [facility] ([place]) Comment:Testing performed by : [facility], [facility], [place], [address] NRBC abs 0.00 0.00 - 0.01 K/cumm [facility] ([place]) Comment:Testing performed by : [facility], [place], [address] Blood 11/26/2024 9:50 AM CDT 11/26/2024 10:13 AM CDT us Chalino Chapa MD LAB BLOOD ORDERABLES Aylin freedman Result [facility] ([place]) [address] [place] [address] Department [place] [address] * (ABNORMAL) Manual Differential (11/26/2024 9:50 AM CDT) Differential Manual Comment:Testing performed by : [facility], [place], [address] Cells Counted 100 [facility] ([place]) Comment:Testing performed by : [facility], [place], [address] Neutrophil abs 0.81(L) 1.50 - 6.50 K/cumm [facility] ([place]) Comment:Testing performed by : [facility], [place], [address] Imm gran abs 0.03 0.00 - 0.10 K/cumm [facility] ([place]) Comment:Testing performed by : [facility], [place], [address] Lymphocyte abs 0.46(L) 0.80 - 3.30 K/cumm [facility] ([place]) Comment:Testing performed by : [facility], [place], [address] Monocyte abs 0.04(L) 0.20 - 0.80 K/cumm [facility] ([place]) Comment:Testing performed by : [facility], [place], [address] Eosinophil abs 0.10 0.00 - 0.50 K/cumm [facility] ([place]) Comment:Testing performed by : [facility], [place], [address] Neutrophil pct 54.0 % [facility] ([place]) Comment: Interpretive Data Percent cell count reference ranges are not reported, since discordance with absolute values may lead to misinterpretation of CBC data. Current Interpretive Data was last revised on 2017. Testing performed by: [facility], [place], [address] Lymphocyte pct 32.0 % [facility] ([place]) Comment: Interpretive Data Percent cell count reference ranges are not reported, since discordance with absolute values may lead to misinterpretation of CBC data. Current Interpretive Data was last revised on 2017. Testing performed by: [facility], [place], [address] Monocyte pct 3.0 % [facility] ([place]) Comment: Interpretive Data Percent cell count reference ranges are not reported, since discordance with absolute values may lead to misinterpretation of CBC data. Current Interpretive Data was last revised on 2017. Testing performed by: [facility], [place], [address] Eosinophil pct 7.0 % [facility] ([place]) Comment: Interpretive Data Percent cell count reference ranges are not reported, since discordance with absolute values may lead to misinterpretation of CBC data. Current Interpretive Data was last revised on 2017. Testing performed by: [facility], [place], [address] Band Neutrophil pct 2.0 0.0 - 5.0 % [facility] ([place]) Comment:Testing performed by : [facility], [place], [address] Myelocyte pct 2.0(H) 0.0 - 0.0 % [facility] ([place]) Comment:Testing performed by : [facility], [place], [address] RBC morphology Consistent with RBC Indicies [facility] ([place]) Comment:Testing performed by : [facility], [place], [address] Platelet estimate Automated Count Confirmed [facility] ([place]) Comment:Testing performed by : [facility], [place], [address] Blood 11/26/2024 9:50 AM CDT 11/26/2024 10:13 AM CDT us Chalino Chapa MD LAB BLOOD ORDERABLES Aylin freedman Result [facility] ([place]) 1 [facility] [place] [address] * (ABNORMAL) Differential, auto (11/19/2024 10:10 AM CDT) Neutrophil abs 1.05(L) 1.50 - 6.50 K/cumm [facility] ([place]) Comment:Testing performed by : [facility] [address], Medical Office [facility] [address], [place] [address] Imm gran abs 0.00 0.00 - 0.10 K/cumm [facility] ([place]) Comment:Testing performed by : [facility] [address], Medical Office [facility] [address], [place] [address] Lymphocyte abs 0.50(L) 0.80 - 3.30 K/cumm [facility] ([place]) Comment:Testing performed by : [facility] [address], Medical Office [facility] [address], [place] [address] Monocyte abs 0.14(L) 0.20 - 0.80 K/cumm [facility] ([place]) Comment:Testing performed by : [facility] [address], Medical Office [facility] [address], [place] [address] Eosinophil abs 0.02 0.00 - 0.50 K/cumm [facility] ([place]) Comment:Testing performed by : [facility] [address], Medical Office [facility] [address], [place] [address] Basophil abs 0.02 0.00 - 0.10 K/cumm [facility] ([place]) Comment:Testing performed by : [facility] [address], Medical Office [facility] [address], [place] [address] Neutrophil pct 60.6 % [facility] ([place]) Comment: Interpretive Data Percent cell count reference ranges are not reported, since discordance with absolute values may lead to misinterpretation of CBC data. Current Interpretive Data was last revised on 2022. Testing performed by: [facility] [address], Medical Office [address], [place] [address] Imm gran pct 0.0 % [facility] ([place]) Comment: Interpretive Data Percent cell count reference ranges are not reported, since discordance with absolute values may lead to misinterpretation of CBC data. Current Interpretive Data was last revised on 2022. Testing performed by: [facility] [address], Medical Office [facility] [address], [place] [address] Lymphocyte pct 28.9 % [facility] ([place]) Comment: Interpretive Data Percent cell count reference ranges are not reported, since discordance with absolute values may lead to misinterpretation of CBC data. Current Interpretive Data was last revised on 2022. Testing performed by: [facility] [address], Medical Office [facility] [address], [place] [address] Monocyte pct 8.1 % [facility] ([place]) Comment: Interpretive Data Percent cell count reference ranges are not reported, since discordance with absolute values may lead to misinterpretation of CBC data. Current Interpretive Data was last revised on 2022. Testing performed by: [facility] [address], Medical Office [facility] [address], [place] [address] Eosinophil pct 1.2 % [facility] ([place]) Comment: Interpretive Data Percent cell count reference ranges are not reported, since discordance with absolute values may lead to misinterpretation of CBC data. Current Interpretive Data was last revised on 2022. Testing performed by: [facility] [address], Medical Office [facility] [address], [place] [address] Basophil pct 1.2 % [facility] ([place]) Comment: Interpretive Data Percent cell count reference ranges are not reported, since discordance with absolute values may lead to misinterpretation of CBC data. Current Interpretive Data was last revised on 2022. Testing performed by: [facility] [address], Medical Office [address], [place] [address] Blood 11/19/2024 10:1 0 AM CDT 11/19/2024 10:10 AM CDT us Chalino Chapa MD LAB BLOOD ORDERABLES Aylin freedman Result SABRA SUE ([place]) 1 [facility] [place] [address] * (ABNORMAL) CBC with auto differential (11/19/2024 10:10 AM CDT) WBC 1.73(L) 3.80 - 9.90 K/cumm [facility] ([place]) Comment:Testing performed by : [facility] [address], Medical Office [facility] [address], [place] [address] Hgb 8.4(L) 11.9 - 15.5 g/dL [facility] ([place]) Comment:Testing performed by : [facility] [address], Medical [facility] [facility] [address], [place] [address] Hct 25.6(L) 35.6 - 45.5 % [facility] ([place]) Comment:Testing performed by : [facility] [address], Medical Office [facility] [address], [place] [address] Plt 119(L) 150 - 400 K/cumm [facility] ([place]) Comment:Testing performed by : [facility] [address], Medical Office [facility] [address], [place] [address] MPV 10.6 9.1 - 12.3 fL [facility] ([place]) Comment:Testing performed by : [facility] [address], Medical Office [facility] [address], [place] [address] RBC 2.29(L) 3.90 - 5.20 M/cumm [facility] ([place]) Comment:Testing performed by : [facility] [address], Medical Office [facility] [address], [place] [address] MCV 111.8(H) 81.3 - 96.4 fL [facility] ([place]) Comment:Testing performed by : [facility] [address], Medical Office [facility] [address], [place] [address] MCH 36.7(H) 27.1 - 33.3 pg [facility] ([place]) Comment:Testing performed by : [facility] [address], Medical Office [address], [place] [address] MCHC 32.8 32.3 - 35.7 g/dL SABRA ROGERS (MAURICIO) Comment:Testing performed by : [facility] Ctr [address], Medical Office [facility] [address], [place] [address] RDW CV 24.9(H) 11.1 - 14.9 % SABRA ROGERS (MAURICIO) Comment:Testing performed by : [facility] [address], Medical Office [facility] [address], [place] [address] RDW SD 96.8(H) 35.7 - 48.1 fL SABRA ROGERS (MAURICIO) Comment:Testing performed by : [facility] Ctr [address], Medical Office [facility] [address], [place] [address] Blood 11/19/2024 10:1 0 AM CDT 11/19/2024 10:10 AM CDT Narrative SABRA ROGERS ([place]UR[place]IO) - 11/19/2024 10:13 AM CDT 11/19, 11/26, 12/03 us Chalino Chapa MD LAB BLOOD ORDERABLES Aylin l Result SABRA ROGERS ([place]URICIO) [address] [place] [address] Department [place] [address] * Transfuse RBC (11/14/2024 1:18 PM CDT) Blood us Chalino Chapa MD BLOOD TRANSFUSION ORDERAB LES Final Result * Prepare RBC: 1 Units (11/14/2024 11:24 AM CDT) Units requested 1 Comment:Testing performed by : [facility], [facility], [place], [address] Units requested Ready EMMY ROGERS (MAURICIO) Comment:Testing performed by : [facility], [facility], [place], [address] Blood 11/14/2024 11:2 4 AM CDT 11/14/2024 11:24 AM CDT Narrative [facility] ([place]) - 11/14/2024 11:24 AM CDT 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 (All products are leukoreduced and CMV- safe)->No us Chalino Chapa MD BLOOD BANK PRODUCT ORDERA BLES Final Result SABRA ROGERS (MAURICIO) 1 [facility] Department [place] [address] * Prepare RBC (11/14/2024 11:22 AM CDT) Unit Number [id number] Product code [id number] [facility] ([place]) Blood Expiration Date [id number] [facility] ([place]) Product Blood Type (for scanning) 5100 [facility] ([place]) Product Blood Type OPOS [facility] ([place]) Dispense Status DISPENSED [facility] ([place]) us Chalino Chapa MD BLOOD BANK PRODUCT ORDERA BLES Final Result SABRA ROGERS (MAURICIO) 1 [facility] Department [place] [address] * (ABNORMAL) Differential, auto (11/14/2024 9:50 AM CDT) Neutrophil abs 0.90(L) 1.50 - 6.50 K/cumm Comment:Testing performed by : [place], [address] Imm gran abs 0.01 0.00 - 0.10 K/cumm [facility] ([place]) Comment:Testing performed by : [place], [address] Lymphocyte abs 0.46(L) 0.80 - 3.30 K/cumm [facility] ([place]) Comment:Testing performed by : [place], [address] Monocyte abs 0.18(L) 0.20 - 0.80 K/cumm [facility] ([place]) Comment:Testing performed by : [facility], [facility], [place], [address] Eosinophil abs 0.03 0.00 - 0.50 K/cumm [facility] ([place]) Comment:Testing performed by : [facility], [facility], [place], [address] Basophil abs 0.01 0.00 - 0.10 K/cumm [facility] ([place]) Comment:Testing performed by : [place], [address] Neutrophil pct 56.7 % CERNE R [facility] ([place]) Comment: Interpretive Data Percent cell count reference ranges are not reported, since discordance with absolute values may lead to misinterpretation of CBC data. Current Interpretive Data was last revised on 2017. Testing performed by: [place], [address] Imm gran pct 0.6 % [facility] ([place]) Comment: Interpretive Data Percent cell count reference ranges are not reported, since discordance with absolute values may lead to misinterpretation of CBC data. Current Interpretive Data was last revised on 2017. Testing performed by: [facility], [place], [address] Lymphocyte pct 28.9 % [facility]NE R [facility] ([place]) Comment: Interpretive Data Percent cell count reference ranges are not reported, since discordance with absolute values may lead to misinterpretation of CBC data. Current Interpretive Data was last revised on 2017. Testing performed by: [place], [address] Monocyte pct 11.3 % [facility] ([place]) Comment: Interpretive Data Percent cell count reference ranges are not reported, since discordance with absolute values may lead to misinterpretation of CBC data. Current Interpretive Data was last revised on 2017. Testing performed by: [place], [address] Eosinophil pct 1.9 % [facility] R [facility] ([place]) Comment: Interpretive Data Percent cell count reference ranges are not reported, since discordance with absolute values may lead to misinterpretation of CBC data. Current Interpretive Data was last revised on 2017. Testing performed by: [place], [address] Basophil pct 0.6 % [facility] ([place]) Comment: Interpretive Data Percent cell count reference ranges are not reported, since discordance with absolute values may lead to misinterpretation of CBC data. Current Interpretive Data was last revised on 2017. Testing performed by: [place], [address] Blood 11/14/2024 9:50 AM CDT 11/14/2024 10:09 AM CDT us Chalino Chapa MD LAB BLOOD ORDERABLES Aylin freedman Result [facility] ([place]) 1 [facility] Department [place] [address] * (ABNORMAL) CBC with auto differential (11/14/2024 9:50 AM CDT) WBC 1.59(L) 3.80 - 9.90 K/cumm Comment:Testing performed by : [place], [address] Hgb 7.2(L) 11.9 - 15.5 g/dL [facility] ([place]) Comment:Testing performed by : [place], [address] Hct 22.7(L) 35.6 - 45.5 % [facility] ([place]) Comment:Testing performed by : [place], [place], Plt 131(L) 150 - 400 K/cumm [facility] ([place]) Comment:Testing performed by : [place], [address] MPV 11.3 9.1 - 12.3 fL [facility] ([place]) Comment:Testing performed by : [place], [address] RBC 2.05(L) 3.90 - 5.20 M/cumm [facility] ([place]) Comment:Testing performed by : [place], [address] MCV 110.7(H) 81.3 - 96.4 fL [facility] ([place]) Comment:Testing performed by : [place], [address] MCH 35.1(H) 27.1 - 33.3 pg SABRA ROGERS (BREDA) Comment:Testing performed by : [facility], [place], [address] MCHC 31.7(L) 32.3 - 35.7 g/dL [facility] ([place]) Comment:Testing performed by : [facility], [place], [address] RDW CV Not Measured 11.1 - 14.9 % SABRA ROGERS (BREDA) Comment:Testing performed by : [facility], [facility], [place], [address] RDW SD Not Measured 35.7 - 48.1 fL SABRA ROGERS (BREDA) Comment:Testing performed by : [facility], [place], [address] Morphologic Screen Results confirmed by manual morphology review. SABRA ROGERS (BREDA) Comment:Testing performed by : [facility], [place], [address] Blood 11/14/2024 9:50 AM CDT 11/14/2024 10:09 AM CDT us Chalino Chapa MD LAB BLOOD ORDERABLES Aylin l Result Performing Organization Address City/[facility] Co de Phone Number SABRA ROGERS (BREDA) 1 [facility] Department [place] [address] * ABO/Rh (11/14/2024 9:50 AM CDT) ABO/Rh O Positive Comment:Testing performed by : [facility], [facility], [place], [address] Blood 11/14/2024 9:50 AM CDT 11/14/2024 10:12 AM CDT Narrative SABRA ROGERS (BR[place]A) - 11/14/2024 10:58 AM CDT 11/19, 11/26, 12/03 Has the patient had Daratumumab or Isatuximab in the past 6 months?->Unknown us Chalino Chapa MD LAB BLOOD BANK TEST ORDER LAITH Final Result Performing Organization Address City/[facility]/ZIP Co de Phone Number SABRA ROGERS (BREDA) 1 [facility] Department [place] [address] * Crossmatch (11/14/2024 9:50 AM CDT) Crossmatch Compatible SABRA PARKS (BREDA) Unit number for crossmatch [id number] SABRA ROGERS (BREDA) Blood 11/14/2024 9:50 AM CDT 11/14/2024 10:12 AM CDT Chalino Chapa MD LAB BLOOD BANK TEST ORDER LAITH Final Result Performing Organization Address [facility] de Phone Number SABRA ROGERS (BREDA) 1 [facility] [place] [address] * Antibody screen (11/14/2024 9:50 AM CDT) Pathologist [facility] Rivera, indirect, Gel Interpretation Negative ABSC Comment:Testing performed by : [facility], [facility], [place], [address] Blood 11/14/2024 9:50 AM CDT 11/14/2024 10:12 AM CDT Narrative SABRA [facility] (BR[place]) - 11/14/2024 10:58 AM CDT 11/19, 11/26, 12/03 Has the patient had Daratumumab or Isatuximab in the past 6 months?->Unknown us Chalino Chapa MD LAB BLOOD BANK TEST ORDER LAITH Final Result Performing Organization Address City/[facility] Co de Phone Number SABRA ROGERS (BREDA) 1 [facility] Department [place] [address] * (ABNORMAL) Erythropoietin (11/11/2024 11:30 AM CDT) Pathologist [facility] Erythropoietin 781(H) 2.6 - 18.5 mIUnits/m L [facility] Comment: Test Performed by: [facility] [address] [place] [address] Flour Mixer: Lloyd Olmstead Ph.D.; CLIA# [id number] Testing performed by: [place], [address] Blood 11/11/2024 11:3 0 AM CDT 11/11/2024 11:53 AM CDT Chalino Chapa MD LAB BLOOD ORDERABLES Aylin l Result Performing Organization Address City/[facility]/ZIP Co de Phone Number [facility] ([address] Department [place] [address] [facility] * ABO/Rh (11/11/2024 11:30 AM CDT) ABO/Rh O Positive Comment:Testing performed by : [place], [address] Blood 11/11/2024 11:3 0 AM CDT 11/11/2024 11:53 AM CDT Narrative [facility] (BREDA) - 11/11/2024 12:32 PM CDT Has the patient had Daratumumab or Isatuximab in the past 6 months?->Unknown Chalino Chapa MD LAB BLOOD BANK TEST ORDER LAITH Final Result Performing Organization Address [facility] de Phone Number SABRA [facility] ([place]EDA) [address] [place] [address] Department [place] [address] * Antibody screen (11/11/2024 11:30 AM CDT) Rivera, indirect, Gel Interpretation Negative ABSC Comment:Testing performed by : [place], [address] Blood 11/11/2024 11:3 0 AM CDT 11/11/2024 11:53 AM CDT Narrative [facility] (BREDA) - 11/11/2024 12:32 PM CDT Has the patient had Daratumumab or Isatuximab in the past 6 months?->Unknown Chalino Cahpa MD LAB BLOOD BANK TEST ORDER LAITH Final Result SABRA ROGERS (BREDA) 1 [facility] [place] [address] * (ABNORMAL) Folate (11/11/2024 11:30 AM CDT) Folic acid 3.5(L) >=5.0 ng/mL [facility] ([place]) Blood 11/11/2024 11:3 0 AM CDT 11/11/2024 11:53 AM CDT us Chalino Chapa MD LAB BLOOD ORDERABLES Aylin l Result SABRA ROGERS (BREDA) 1 [facility] [place] [address] * Vitamin B12 (11/11/2024 11:30 AM CDT) Pathologist [facility] Vitamin B12 1,022 230 - 1,250 pg/mL SABRA ROGERS (BREDA) Blood 11/11/2024 11:3 0 AM CDT 11/11/2024 11:53 AM CDT us Chalino Chapa MD LAB BLOOD ORDERABLES Aylin l Result Performing Organization Address City/[facility]/ZIP Co de Phone Number SABRA ROGERS (BREDA) 1 [facility] Department [place] [address] * (ABNORMAL) Differential, auto (11/11/2024 10:45 AM CDT) Neutrophil abs 1.08(L) 1.50 - 6.50 K/cumm [facility] ([place]) Comment:Testing performed by : [facility] [address], Medical Office [facility] [address], [place] [address] Imm gran abs 0.02 0.00 - 0.10 K/cumm [facility] ([place]) Comment:Testing performed by : [facility] [address], Medical Office [facility] [address], [place] [address] Lymphocyte abs 0.55(L) 0.80 - 3.30 K/cumm [facility] ([place]) Comment:Testing performed by : [facility] [address], Medical Office [address], [place] [address] Monocyte abs 0.17(L) 0.20 - 0.80 K/cumm [facility] ([place]) Comment:Testing performed by : [facility] [address], Medical Office [facility] [address], [place] [address] Eosinophil abs 0.04 0.00 - 0.50 K/cumm [facility] ([place]) Comment:Testing performed by : [facility] [address], Medical Office [address], [place] [address] Basophil abs 0.01 0.00 - 0.10 K/cumm [facility] ([place]) Comment:Testing performed by : [facility] [address], Medical Office [facility] [address], [place] [address] Neutrophil pct 57.8 % [facility]NE R [facility] ([place]IO) Comment: Interpretive Data Percent cell count reference ranges are not reported, since discordance with absolute values may lead to misinterpretation of CBC data. Current Interpretive Data was last revised on 2022. Testing performed by: [facility] [address], Medical Office [facility] [address], [place] [address] Imm gran pct 1.1 % [facility] ([place]) Comment: Interpretive Data Percent cell count reference ranges are not reported, since discordance with absolute values may lead to misinterpretation of CBC data. Current Interpretive Data was last revised on 2022. Testing performed by: [facility] [address], Medical Office [facility] [address], [place] [address] Lymphocyte pct 29.4 % [facility] R [facility] ([place]IO) Comment: Interpretive Data Percent cell count reference ranges are not reported, since discordance with absolute values may lead to misinterpretation of CBC data. Current Interpretive Data was last revised on 2022. Testing performed by: [facility] [address], Medical Office d[address], [place] [address] Monocyte pct 9.1 % [facility] ([place]) Comment: Interpretive Data Percent cell count reference ranges are not reported, since discordance with absolute values may lead to misinterpretation of CBC data. Current Interpretive Data was last revised on 2022. Testing performed by: [facility] [address], Medical Office [facility] B [facility] [address], [place] [address] Eosinophil pct 2.1 % EMELINA ROGERS (MAURICIO) Comment: Interpretive Data Percent cell count reference ranges are not reported, since discordance with absolute values may lead to misinterpretation of CBC data. Current Interpretive Data was last revised on 2022. Testing performed by: [facility] [address], Medical Office [facility] B [facility] [address], [place] [address] Basophil pct 0.5 % SABRA ROGERS (MAURICIO) Comment: Interpretive Data Percent cell count reference ranges are not reported, since discordance with absolute values may lead to misinterpretation of CBC data. Current Interpretive Data was last revised on 2022. Testing performed by: [facility] [address], Medical Office [facility] [address], [place] [address] Blood 11/11/2024 10:4 5 AM CDT 11/11/2024 11:00 AM CDT Milla Armenta FIRE TECHNICIAN LAB BLOOD ORDERABLES Final Result SABRA ROGERS ([place]URICIO) 1 [facility] Department [place] [address] * (ABNORMAL) CBC with auto differential (11/11/2024 10:45 AM CDT) WBC 1.87(L) 3.80 - 9.90 K/cumm SABRA ROGERS (MAURICIO) Comment:Testing performed by : [facility] [address], Medical Office [facility] B [facility] [address], [place] [address] Hgb 7.2(L) 11.9 - 15.5 g/dL SABRA ROGERS (MAURICIO) Comment:Testing performed by : [facility] [address], Medical Office [facility] B [facility] [address], [place] [address] Hct 22.5(L) 35.6 - 45.5 % [facility] ([place]) Comment:Testing performed by : [facility] Ctr [address], Medical Office [address], [place] [address] Plt 111(L) 150 - 400 K/cumm [facility] ([place]) Comment:Testing performed by : [facility] [address], Medical Office [facility] [address], [place] [address] MPV 11.0 9.1 - 12.3 fL [facility] ([place]) Comment:Testing performed by : [facility] [address], Medical Office [facility] [address], [place] [address] RBC 2.03(L) 3.90 - 5.20 M/cumm [facility] ([place]) Comment:Testing performed by : [facility] [address], Medical Office [facility] [address], [place] [address] MCV 110.8(H) 81.3 - 96.4 fL [facility] ([place]) Comment:Testing performed by : [facility] [address], Medical Office [facility] [address], [place] [address] MCH 35.5(H) 27.1 - 33.3 pg [facility] ([place]) Comment:Testing performed by : [facility] [address], Medical Office [facility] [address], [place] [address] MCHC 32.0(L) 32.3 - 35.7 g/dL [facility] ([place]) Comment:Testing performed by : [facility] [address], Medical Office [facility] [address], [place] [address] RDW CV 26.2(H) 11.1 - 14.9 % [facility] ([place]) Comment:Testing performed by : [facility] [address], Medical Office [address], [place] [address] RDW SD 96.8(H) 35.7 - 48.1 fL [facility] ([place]UR[place]IO) Comment:Testing performed by : [facility] [address], Medical Office [facility] [address], [place] [address] Blood 11/11/2024 10:4 5 AM CDT 11/11/2024 11:00 AM CDT us Milla Armenta NP LAB BLOOD ORDERABLES Final Result Performing Organization Address City/[facility]/ZIP Co de Phone Number SABRA ROGERS (BREDA) 1 [facility] Department [place] [address] * eGFR (11/11/2024 8:11 AM CDT) eGFR [...] was last reviewed 2021. Testing performed by: [facility], [facility], [place], [address] Blood 11/11/2024 8:11 AM CDT 11/11/2024 11:14 AM CDT us Chalino Chapa MD LAB BLOOD ORDERABLES Aylin l Result SABRA ROGERS (BREDA) 1 [facility] Department [place] [address] * (ABNORMAL) Comprehensive metabolic panel (11/11/2024 8:11 AM CDT) Sodium 138 135 - 145 mmol/L [facility] (BREDA) Potassium, pl 3.9 3.3 - 4.9 mmol/L [...] freedman Result [facility]RA [facility] ([place]URICIO) 1 [facility] Department [place] [address] * eGFR (10/21/2024 8:25 AM CDT) eGFR [...] was last reviewed 2021. Testing performed by: [place], [address] Blood 10/21/2024 8:25 AM CDT 10/21/2024 8:36 AM CDT us Chalino Chapa MD LAB BLOOD ORDERABLES Aylin freedman Result SABRA ROGERS (BREDA) 1 [facility] Department [place] [address] * (ABNORMAL) Differential, auto (10/21/2024 8:25 AM CDT) Pathologist [facility] Neutrophil abs 0.69(L) 1.50 - 6.50 K/cumm Comment:Testing performed by : [place], [address] Imm gran abs 0.01 0.00 - 0.10 K/cumm SABRA ROGERS (BREDA) Comment:Testing performed by : [place], [address] Lymphocyte abs 0.68(L) 0.80 - 3.30 K/cumm SABRA ROGERS (BREDA) Comment:Testing performed by : [place], [address] Monocyte abs 0.16(L) 0.20 - 0.80 K/cumm [facility] ([place]) Comment:Testing performed by : [facility], [facility], [place], [address] Eosinophil abs 0.00 0.00 - 0.50 K/cumm [facility] ([place]) Comment:Testing performed by : [facility], [facility], [place], [address] Basophil abs 0.00 0.00 - 0.10 K/cumm [facility] ([place]) Comment:Testing performed by : [place], [address] Neutrophil pct 44.8 % [facility] ([place]A) Comment: Interpretive Data Percent cell count reference ranges are not reported, since discordance with absolute values may lead to misinterpretation of CBC data. Current Interpretive Data was last revised on 2017. Testing performed by: [place], [address] Imm gran pct 0.6 % [facility] ([place]) Comment: Interpretive Data Percent cell count reference ranges are not reported, since discordance with absolute values may lead to misinterpretation of CBC data. Current Interpretive Data was last revised on 2017. Testing performed by: [place], [address] Lymphocyte pct 44.2 % [facility] ([place]) Comment: Interpretive Data Percent cell count reference ranges are not reported, since discordance with absolute values may lead to misinterpretation of CBC data. Current Interpretive Data was last revised on 2017. Testing performed by: [place], [address] Monocyte pct 10.4 % [facility] ([place]) Comment: Interpretive Data Percent cell count reference ranges are not reported, since discordance with absolute values may lead to misinterpretation of CBC data. Current Interpretive Data was last revised on 2017. Testing performed by: [place], [address] Eosinophil pct 0.0 % [facility] (BR[place]A) Comment: Interpretive Data Percent cell count reference ranges are not reported, since discordance with absolute values may lead to misinterpretation of CBC data. Current Interpretive Data was last revised on 2017. Testing performed by: [facility], [facility], [place], [address] Basophil pct 0.0 % [facility] ([place]) Comment: Interpretive Data Percent cell count reference ranges are not reported, since discordance with absolute values may lead to misinterpretation of CBC data. Current Interpretive Data was last revised on 2017. Testing performed by: [facility], [place], [address] Blood 10/21/2024 8:25 AM CDT 10/21/2024 9:43 AM CDT us Chalino Chapa MD LAB BLOOD ORDERABLES Aylin freedman Result [facility] ([place]) 1 [facility] Department [place] [address] * (ABNORMAL) CBC with auto differential (10/21/2024 8:25 AM CDT) WBC 1.54(L) 3.80 - 9.90 K/cumm Comment:Testing performed by : [facility], [place], [address] Hgb 8.5(L) 11.9 - 15.5 g/dL [facility] ([place]) Comment:Testing performed by : [facility], [place], [address] Hct 26.5(L) 35.6 - 45.5 % [facility] ([place]) Comment:Testing performed by : [place], [address] Plt 153 150 - 400 K/cumm [facility] ([place]) Comment:Testing performed by : [facility], [place], [address] MPV 11.8 9.1 - 12.3 fL [facility] ([place]) Comment:Testing performed by : [facility], [place], [address] RBC 2.67(L) 3.90 - 5.20 M/cumm [facility] ([place]) Comment:Testing performed by : [place], [address] MCV 99.3(H) 81.3 - 96.4 fL [facility] ([place]) Comment:Testing performed by : [facility], [place], [address] MCH 31.8 27.1 - 33.3 pg [facility] ([place]) Comment:Testing performed by : [facility], [place], [address] MCHC 32.1(L) 32.3 - 35.7 g/dL [facility] ([place]) Comment:Testing performed by : [facility], [place], [address] RDW CV 16.9(H) 11.1 - 14.9 % [facility] ([place]) Comment:Testing performed by : [facility], [place], [address] RDW SD 52.5(H) 35.7 - 48.1 fL [facility] ([place]) Comment:Testing performed by : [facility], [place], [address] NRBC abs 0.00 0.00 - 0.01 K/cumm [facility] ([place]) Comment:Testing performed by : [facility], [place], [address] Morphologic Screen Results confirmed by manual morphology review. [facility] ([place]) Comment:Testing performed by : [facility], [place], [address] Blood 10/21/2024 8:25 AM CDT 10/21/2024 9:43 AM CDT us Chalino Chapa MD LAB BLOOD ORDERABLES Aylin freedman Result [facility] ([place]) 1 [facility] Department [place] [address] * (ABNORMAL) Comprehensive metabolic panel (10/21/2024 8:25 [...] Aylin l Result SABRA [facility] ([place]) 1 [facility] Department of Laboratories [place], [place] [id number] * Transfuse RBC (10/17/2024 2:54 PM CDT) Blood us Chalino Chapa MD BLOOD TRANSFUSION ORDERAB LES Final Result * Prepare RBC (10/17/2024 12:24 PM CDT) Unit Number [id number] Product code [id number] [facility] ([place]) Blood Expiration Date [facility] ([place]) Product Blood Type (for scanning) 5100 [facility] ([place]) Product Blood Type OPOS [facility] ([place]) Dispense Status DISPENSED [facility]RA [facility] ([place]) us Chalino Chapa MD BLOOD BANK PRODUCT ORDERA BLES Final Result SABRA [facility] ([place]) 1 [facility] Department [place] [address] * Prepare RBC: 1 Units (10/17/2024 12:19 PM CDT) Units requested 1 Comment:Testing performed by : [place], [address] Units requested Ready AMY WOLF [facility] ([place]IO) Comment:Testing performed by : [place], [address] Blood 10/17/2024 12:1 9 PM CDT 10/17/2024 12:19 PM CDT Narrative [facility] ([place]) - 10/17/2024 12:19 PM CDT Are special requirements needed? (All products are leukoreduced and CMV- safe)->No us Chalino Chapa MD BLOOD BANK PRODUCT ORDERA BLES Final Result S[facility]RA [facility] ([place]) 1 [facility] Department [place] [address] * eGFR (10/17/2024 11:10 AM CDT) eGFR [...] was last reviewed 2021. Testing performed by: [place], [address] Blood 10/17/2024 11:1 0 AM CDT 10/17/2024 11:34 AM CDT us Chalino Chapa MD LAB BLOOD ORDERABLES Aylin l Result SABRA [facility] ([place]) 1 [facility] Department [place] [address] * (ABNORMAL) Differential, auto (10/17/2024 11:10 AM CDT) Neutrophil abs 0.64(L) 1.50 - 6.50 K/cumm Comment:Testing performed by : [place], [address] Imm gran abs 0.01 0.00 - 0.10 K/cumm [facility] ([place]) Comment:Testing performed by : [place], [address] Lymphocyte abs 0.84 0.80 - 3.30 K/cumm [facility] ([place]) Comment:Testing performed by : [place], [address] Monocyte abs 0.20 0.20 - 0.80 K/cumm [facility] ([place]) Comment:Testing performed by : [place], [address] Eosinophil abs 0.00 0.00 - 0.50 K/cumm [facility] ([place]) Comment:Testing performed by : [facility], [facility], [place], [address] Basophil abs 0.00 0.00 - 0.10 K/cumm [facility] ([place]) Comment:Testing performed by : [place], [address] Neutrophil pct 37.9 % [facility] ([place]) Comment: Interpretive Data Percent cell count reference ranges are not reported, since discordance with absolute values may lead to misinterpretation of CBC data. Current Interpretive Data was last revised on 2017. Testing performed by: [facility], [place], [address] Imm gran pct 0.6 % [facility] ([place]) Comment: Interpretive Data Percent cell count reference ranges are not reported, since discordance with absolute values may lead to misinterpretation of CBC data. Current Interpretive Data was last revised on 2017. Testing performed by: [place], [address] Lymphocyte pct 49.7 % [facility] ([place]) Comment: Interpretive Data Percent cell count reference ranges are not reported, since discordance with absolute values may lead to misinterpretation of CBC data. Current Interpretive Data was last revised on 2017. Testing performed by: [place], [address] Monocyte pct 11.8 % [facility] ([place]) Comment: Interpretive Data Percent cell count reference ranges are not reported, since discordance with absolute values may lead to misinterpretation of CBC data. Current Interpretive Data was last revised on 2017. Testing performed by: [place], [address] Eosinophil pct 0.0 % [facility] ([place]) Comment: Interpretive Data Percent cell count reference ranges are not reported, since discordance with absolute values may lead to misinterpretation of CBC data. Current Interpretive Data was last revised on 2017. Testing performed by: [place], [address] Basophil pct 0.0 % [facility] ([place]) Comment: Interpretive Data Percent cell count reference ranges are not reported, since discordance with absolute values may lead to misinterpretation of CBC data. Current Interpretive Data was last revised on 2017. Testing performed by: [place], [address] Blood 10/17/2024 11:1 0 AM CDT 10/17/2024 12:21 PM CDT us Chalino Chapa MD LAB BLOOD ORDERABLES Aylin tano Result [facility] ([place]) [address] [place] [address] Department [place] [address] * (ABNORMAL) CBC with auto differential (10/17/2024 11:10 AM CDT) WBC 1.69(L) 3.80 - 9.90 K/cumm Comment:Testing performed by : [place], [address] Hgb 7.3(L) 11.9 - 15.5 g/dL [facility] ([place]) Comment:Testing performed by : [place], [address] Hct 22.8(L) 35.6 - 45.5 % [facility] ([place]) Comment:Testing performed by : [place], [address] Plt 144(L) 150 - 400 K/cumm [facility] ([place]) Comment:Testing performed by : [place], [address] MPV 12.0 9.1 - 12.3 fL [facility] ([place]) Comment:Testing performed by : [place], [address] RBC 2.29(L) 3.90 - 5.20 M/cumm [facility] ([place]) Comment:Testing performed by : [place], [address] MCV 99.6(H) 81.3 - 96.4 fL [facility] ([place]) Comment:Testing performed by : [place], [address] MCH 31.9 27.1 - 33.3 pg [facility] ([place]) Comment:Testing performed by : [facility], [facility], [place], [address] MCHC 32.0(L) 32.3 - 35.7 g/dL [facility] ([place]) Comment:Testing performed by : [facility], [facility], [place], [address] RDW CV 16.2(H) 11.1 - 14.9 % [facility] ([place]) Comment:Testing performed by : [facility], [facility], [place], [address] RDW SD 53.1(H) 35.7 - 48.1 fL [facility] ([place]) Comment:Testing performed by : [facility], [facility], [place], [address] NRBC abs 0.00 0.00 - 0.01 K/cumm [facility] ([place]) Comment:Testing performed by : [facility], [place], [address] Morphologic Screen Results confirmed by manual morphology review. [facility] ([place]) Comment:Testing performed by : [facility], [place], [address] Blood 10/17/2024 11:1 0 AM CDT 10/17/2024 12:21 PM CDT us Chalino Chapa MD LAB BLOOD ORDERABLES Edit ed Result - Final [facility]RA [facility] ([place]) 1 [facility] Department [place] [address] * ABO/Rh (10/17/2024 11:10 AM CDT) ABO/Rh O Positive Comment:Testing performed by : [facility], [facility], [place], [address] Blood 10/17/2024 11:1 0 AM CDT 10/17/2024 11:43 AM CDT Narrative [facility] ([place]) - 10/17/2024 12:17 PM CDT Has the patient had Daratumumab or Isatuximab in the past 6 months?->Unknown Witness: Ynes Jensen IFS us Chalino Chapa MD LAB BLOOD BANK TEST ORDER LAITH Final Result Performing Organization Address City/[facility]/ZIP Co de Phone Number [facility] ([place]) 1 [place] [address] * Crossmatch (10/17/2024 11:10 AM CDT) Pathologist [facility] Crossmatch Compatible SABRA Silva (BREDA) Unit number for crossmatch [id number] [facility] ([place]) Blood 10/17/2024 11:1 0 AM CDT 10/17/2024 11:43 AM CDT Chalino Chaap MD LAB BLOOD BANK TEST ORDER LAITH Final Result Performing Organization Address [facility] Co de Phone Number [facility] ([place]) 1 [place] [address] * Antibody screen (10/17/2024 11:10 AM CDT) Pathologist [facility] Rivera, indirect, Gel Interpretation Negative ABSC Comment:Testing performed by : [facility], [facility], [place], [address] Blood 10/17/2024 11:1 0 AM CDT 10/17/2024 11:43 AM CDT Narrative [facility] ([place]) - 10/17/2024 12:17 PM CDT Has the patient had Daratumumab or Isatuximab in the past 6 months?->Unknown Chalino Chapa MD LAB BLOOD BANK TEST ORDER LAITH Final Result Performing Organization Address City/[facility]/ZIP Co de Phone Number [facility] ([place]) 1 [place] [address] * (ABNORMAL) Comprehensive metabolic panel (10/17/2024 11:10 AM CDT) Pathologist [facility] Sodium 139 135 - 145 mmol/L [facility] ([place]) Potassium, pl 4.0 3.3 - 4.9 mmol/L [facility] ([place]) Chloride 100 97 - 110 mmol/L CERNER [...] MD LAB BLOOD ORDERABLES Aylin freedman Result [facility] ([place]) 1 [facility] Department [place] [address] * (ABNORMAL) Differential, auto (10/14/2024 9:17 AM CDT) Neutrophil abs 0.51(L) 1.50 - 6.50 K/cumm Comment:Testing performed by : [facility], [facility], [place], [address] Imm gran abs 0.02 0.00 - 0.10 K/cumm [facility] ([place]) Comment:Testing performed by : [facility], [facility], [place], [address] Lymphocyte abs 0.81 0.80 - 3.30 K/cumm [facility] ([place]) Comment:Testing performed by : [facility], [facility], [place], [address] Monocyte abs 0.13(L) 0.20 - 0.80 K/cumm [facility] ([place]) Comment:Testing performed by : [facility], [facility], [place], [address] Eosinophil abs 0.00 0.00 - 0.50 K/cumm [facility] ([place]) Comment:Testing performed by : [facility], [place], [address] Basophil abs 0.01 0.00 - 0.10 K/cumm [facility] ([place]) Comment:Testing performed by : [facility], [facility], [place], [address] Neutrophil pct 34.4 % [facility] ([place]) Comment: Interpretive Data Percent cell count reference ranges are not reported, since discordance with absolute values may lead to misinterpretation of CBC data. Current Interpretive Data was last revised on 2017. Testing performed by: [place], [address] Imm gran pct 1.4 % [facility] ([place]) Comment: Interpretive Data Percent cell count reference ranges are not reported, since discordance with absolute values may lead to misinterpretation of CBC data. Current Interpretive Data was last revised on 2017. Testing performed by: [facility], [place], [address] Lymphocyte pct 54.7 % [facility] ([place]) Comment: Interpretive Data Percent cell count reference ranges are not reported, since discordance with absolute values may lead to misinterpretation of CBC data. Current Interpretive Data was last revised on 2017. Testing performed by: [facility], [place], [address] Monocyte pct 8.8 % [facility] ([place]) Comment: Interpretive Data Percent cell count reference ranges are not reported, since discordance with absolute values may lead to misinterpretation of CBC data. Current Interpretive Data was last revised on 2017. Testing performed by: [facility], [facility], [place], [address] Eosinophil pct 0.0 % EMELINA R[facility]ERS (BRED[place]) Comment: Interpretive Data Percent cell count reference ranges are not reported, since discordance with absolute values may lead to misinterpretation of CBC data. Current Interpretive Data was last revised on 2017. Testing performed by: [facility], [facility], [place], [address] Basophil pct 0.7 % [facility] ([place]) Comment: Interpretive Data Percent cell count reference ranges are not reported, since discordance with absolute values may lead to misinterpretation of CBC data. Current Interpretive Data was last revised on 2017. Testing performed by: [place], [address] Blood 10/14/2024 9:17 AM CDT 10/14/2024 9:17 AM CDT us Chalino Chapa MD LAB BLOOD ORDERABLES Aylin freedman Result [facility]RA [facility] ([place]) 1 [facility] Department [place] [address] * (ABNORMAL) CBC with auto differential (10/14/2024 9:17 AM CDT) WBC 1.48(L) 3.80 - 9.90 K/cumm Comment:Testing performed by : [facility], [place], [address] Hgb 7.8(L) 11.9 - 15.5 g/dL [facility] ([place]) Comment:Testing performed by : [facility], [place], [address] Hct 24.6(L) 35.6 - 45.5 % [facility] ([place]) Comment:Testing performed by : [facility], [place], [address] Plt 142(L) 150 - 400 K/cumm [facility] ([place]) Comment:Testing performed by : [place], [address] MPV 12.2 9.1 - 12.3 fL [facility] ([place]) Comment:Testing performed by : [place], [address] RBC 2.54(L) 3.90 - 5.20 M/cumm [facility] ([place]) Comment:Testing performed by : [place], [address] MCV 96.9(H) 81.3 - 96.4 fL [facility] ([place]) Comment:Testing performed by : [place], [address] MCH 30.7 27.1 - 33.3 pg [facility] ([place]) Comment:Testing performed by : [facility], [place], [address] MCHC 31.7(L) 32.3 - 35.7 g/dL [facility] ([place]) Comment:Testing performed by : [place], [address] RDW CV 15.6(H) 11.1 - 14.9 % [facility] ([place]) Comment:Testing performed by : [place], [address] RDW SD 53.3(H) 35.7 - 48.1 fL [facility] ([place]) Comment:Testing performed by : [place], [address] NRBC abs 0.00 0.00 - 0.01 K/cumm [facility] ([place]) Comment:Testing performed by : [place], [address] Blood 10/14/2024 9:17 AM CDT 10/14/2024 9:17 AM CDT us Chalino Chapa MD LAB BLOOD ORDERABLES Aylin freedman Result [facility] ([place]) 1 [facility] Department [place] [address] * eGFR (10/14/2024 8:00 AM CDT) eGFR [...] was last reviewed 2021. Testing performed by: [place], [address] Blood 10/14/2024 8:00 AM CDT 10/14/2024 1:44 PM CDT us Chalino Chapa MD LAB BLOOD ORDERABLES Aylin l Result SABRA [facility] ([place]) 1 [facility] Department [place] [address] * (ABNORMAL) Comprehensive metabolic panel (10/14/2024 8:00 AM CDT) Sodium 138 135 - 145 mmol/L Comment:Testing performed by : [place], [address] Potassium, pl 4.4 3.3 - 4.9 mmol/L S[facility]RA R[facility] ([place]) Comment:Testing performed by : [place], [address] Chloride 99 97 - 110 mmol/L [facility] ([place]) Comment:Testing performed by : [place], [address] CO2 27 22 - 32 mmol/L [facility] ([place]) Comment:Testing performed by : [facility], [facility], [place], [address] Anion gap 12 2 - 15 mmol/L [facility] ([place]) Comment:Testing performed by : [facility], [facility], [place], [address] BUN 10 6 - 25 mg/dL [facility] ([place]) Comment:Testing performed by : [facility], [facility], [place], [address] Creatinine 0.58(L) 0.60 - 1.10 mg/dL [facility] ([place]) Comment:Testing performed by : [facility], [facility], [place], [address] Glucose 135 70 - 199 mg/dL [facility] ([place]) Comment: Interpretive Data Fasting glucose >/= 126 [...] was last revised 2022. Testing performed by: [facility], [facility], [place], [address] Calcium 9.2 8.5 - 10.3 mg/dL [facility] ([place]) Comment:Testing performed by : [facility], [place], [address] Bilirubin, total 0.6 0.1 - 1.2 mg/dL [facility] ([place]) Comment:Testing performed by : [facility], [place], [address] Protein, pl 7.3 6.5 - 8.5 g/dL [facility] ([place]) Comment:Testing performed by : [facility], [place], [address] Albumin 3.9 3.5 - 5.0 g/dL [facility] ([place]) Comment:Testing performed by : [facility], [place], [address] Alk phos 47 40 - 130 Units/L [facility] ([place]) Comment:Testing performed by : [facility], [facility], [place], [address] ALT 46(H) 7 - 45 Units/L [facility] ([place]) Comment:Testing performed by : [facility], [facility], [place], [address] AST 29 10 - 45 Units/L [facility] ([place]) Comment:Testing performed by : [facility], [facility], [place], [address] Blood 10/14/2024 8:00 AM CDT 10/14/2024 1:44 PM CDT us Chalino Chapa MD LAB BLOOD ORDERABLES Aylin freedman Result Performing Organization Address City/State/[facility] Co de Phone Number [facility] ([place]) 1 [facility] Department [place] [address] from Last 3 Months Insurance MEDICARE MEDICARE [facility] MEDICARE SUPPLEMENT MEDICARE [facility] MEDICARE SUPPLEMENT Advance Directives For more information, please contact: [phone] Documents on File Type Date Recorded Patient Ict Quality Assurance Engineer Expl anation ADVANCE DIRECTIVE 12/20/2023 8:01 AM Power of Visual Artist-Medical * Full Code (Latest Code Status on File) Date Activated Date Inactivated Comments 09/28/2024 7:50 PM 10/07/2024 7:51 PM * Full Code Date Activated Date Inactivated Comments 12/11/2023 12:19 PM 12/19/2023 6:45 PM Care Teams Rx Specialist Relationship Specialty Start Date End Date Bryan Davey DO PCP - General Internal Medicine 11/14/23 Prateek King MD [address] [place] [address] Consulting Physician Urology 10/07/24 Sherman Alvarez DO [address] [place] [address] Medical Oncologist/Supervisor [employer] Hematology and Oncology 10/07/24
--- OUTSIDE RECORDS SUMMARY | 2025-01-14 14:55 | XMS_ITS | Encounter Summary ---
Author Organization [facility] Address [facility] [place] [address] Care Team Providers Care Clinical Data Coordinator Name Role Phone Adnie Ang MD Primary Care Provider + [phone] Mervat Kelley Primary Care Provider + Andie Ang MD Primary Care Provider + [phone] Mervat Kelley Primary Care Provider + Andie Ang MD Primary Care Provider + [phone] Mervat Kelley Primary Care Provider + Encounter Details Date Type Department Care Team (Late st Contact Info) Description 11/15/2018 Lab Requisition [facility] Care DermPath Lab [address] [facility] [place] [address] Sarath De Guzman MD [address] [place] [address] Social History Tobacco Use Types Packs/Day Years [...] AM CDT) Case Report Dermatopathology Report Case: [id number] Authorizing Provider: Sarath De Guzman MD Collected: 11/14/2018 12:00 AM Ordering Location: [facility] DermPath Lab Received: 11/15/2018 [...] specimen consists of a shave biopsy measuring [id number]. Jar 0. 12:59 PM CDT DERMATOPATHOLOGY LABORATORY [...] characteristic determined by the Dermatopathology Laboratory at [facility], directed by Dr. Frederick Schofield. These tests need not be, and therefore are not, approved by the [place] Food and Drug Administration. The tests are used for clinical purposes. Billing Codes Specimen Charges Stain Charges 15358 1 12:59 PM CDT DERMATOPATHOLOGY LABORATORY Embedded Images 12:59 PM CDT DERMATOPATHOLOGY LABORATORY Pathology/Cytolog y TISSUE SPECIMEN FROM SKIN / Unknown 11/14/2018 11/15/2018 12:29 PM CDT Sarath De Guzman MD LAB - PATHOLOGY/CYTOLOGY ORD ERABLES Final Result DERMATOPATHOLOGY LABORATORY [facility] - Department of Dermatology [address] [facility], [address] [place] [address], [facility] [phone] documented in this encounter Visit Diagnoses Not on filedocumented in this encounter Care Teams Clinical Data Coordinator Relationship Specialty Start Date End Date Andie Ang MD [address] [phone] PCP - General 08/18/17 09/29/21 Mervat Kelley APRN-ASSEMBLY ASSOCIATE [address] [place] [phone] PCP - General Nurse Practitioner 09/30/21 09/30/21 Andie Ang MD [address] [phone] PCP - General 10/01/21 10/12/21 Mervat Kelley APRN-ASSEMBLY ASSOCIATE [address] [phone] PCP - General 10/13/21 10/31/21 Andie Ang MD [address] [phone] PCP - General 11/01/21 11/23/21 Mervat Kelley APRN-ASSEMBLY ASSOCIATE [address] [phone] PCP - General 11/24/21 documented as of this encounter
--- OUTSIDE RECORDS SUMMARY | 2025-01-14 14:55 | XMS_ITS ---
Author Organization [facility] Address [address] [place] [address] Care Team Providers Care Beamster Name Role Phone Bryan Davey DO Primary Care Provider Prateek King MD Unavailable Sherman Alvarez DO Unavailable [phone] Active Problems Problem Noted Date Diagnosed Date [...] Problems MDS (myelodysplastic syndrom e) ([facility]) Treatment Medications Current Day (Day 1 [...] (06/06/2018): Added automatically from request for surgery [id number]
--- OUTSIDE RECORDS SUMMARY | 2025-01-14 14:55 | XMS_ITS | Clinical Summary ---
Author Organization [facility] Address [address], [address] [address] Phone Care Team Providers Care Customer Equipment Engineer Name Role Phone Mervat Kelley APRN Primary Care Provider [phone] Medications polyethylene glycol (MIRALAX) Powder Use entire [...] Immunization (#1) 2024 SARS-COV-2 Immunization ( - 2024- season) 2024 Hepatitis B Immunization Aged Out [...] age to complete this topic Insurance MEDICARE [facility] Care Teams Customer Equipment Engineer Relationship Specialty Start Date End Date Mervat Kelley APRN PCP - General Advanced Practice Nurse 06/12/17
--- OUTSIDE RECORDS SUMMARY | 2025-01-14 14:55 | XMS_ITS | Clinical Summary ---
Author Organization [facility] Address [address] [place] [address] Care Team Providers Care Washing Machine Operator Name Role Phone Mervat Kelley GERA-OCCUPATIONAL THERAPIST'S ASSISTANT Primary Care Provider + Source Comments [facility],non-owned Affiliates and Associated Physician Practices is amultiple site organization consisting of ambulatory clinics and hospital sitesin [place], [place], [place] and [place]. This disclosure is being madepursuant to the Care Everywhere program and may not contain all information available regarding this patient. 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
--- OUTSIDE RECORDS SUMMARY | 2025-01-14 14:55 | XMS_ITS | Encounter Summary ---
Author Organization [facility] Address [address] [place] [address] Phone Care Team Providers Care Ironer Or Presser Name Role Phone Bryan Davey DO Primary Care Provider Prateek King MD Unavailable Sherman Alvarez DO Unavailable [phone] Encounter Details Date Type Department Care Team (Late st Contact Info) Description 01/14/2025 Orders Only [facility] [address] [place] [address] Medical Office [address] [place] [id number] Chalino Chapa MD [address] [place], [place] [id number] Social History Tobacco Use Types Packs/Day Years Used Date Smoking Tobacco: Never Smokeless Tobacco: Never Alcohol Use Standard Drinks/Week Comments Yes 0 (1 standard drink = 0.6 oz pur e alcohol) [facility] Utilities Answer Date Recorded In the past 12 months has [employer] electric, gas, oil, or water company threatened [...] often do you attend chur ch or yarsani services? Never 09/30/2024 Do you belong to any clubs o r organizations such as jehovah's witness groups, unions, fraternal or athletic groups, or [...] in the past [address] [facility], were you homeless or living in a fci (including now)? No 10/02/2024 Personal Safety Answer Date Recorded Have you ever been in or are you currently in a harmful physical or emotional relationship or is someone making you feel afraid or unsafe? 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
== END 2025-01-14 13:07 | disposition home or self-care (01) ==
PROVIDERS: PCP Internal Medicine
DX: D46.9 Myelodysplastic syndrome, unspecified (principal)
CPT/HCPCS: 36415; 85025

== ENCOUNTER 2025-01-23 13:22 | Inpatient (IN) | payer MEDICARE, SELFPAY ==
[2025-01-23] VITALS (7 sets, daily range): BP systolic 90–117; BP diastolic 49–73; PULSE 80–98; RESP 14–18; TEMP 36.8–37.3; O2SAT 78–100; BMI 29.0
--- NOTE | ~2025-01-23 | CT_ITS ---
CT abdomen pelvis w con INDICATION:diarrhea- history of colectomy and diverticulitis . COMPARISON: None. TECHNIQUE: Axial images of the abdomen and pelvis were obtained following infusion of 100 mL Isovue 300. Dose optimization technique was utilized. FINDINGS: The lung bases are clear. The liver parenchyma is unremarkable. No intrahepatic mass or ductal dilatation is evident. The gallbladder is unremarkable. The pancreas and spleen are normal in appearance. Left adrenal gland mass measures 2.6 x 4.1 cm concerning for metastases. Right adrenal gland is unremarkable. The kidneys demonstrate symmetric uptake and excretion of contrast. No cystic mass is evident. There is no solid mass. There is no hydronephrosis. There is fluid filled distended small bowel with decompressed distal small bowel loops may represent partial small bowel obstruction with transition point in the right paracentral ventral wall hernia containing small bowel loops. The bladder and rectum are normal. No free intraperitoneal fluid or air is evident. There is no significant retroperitoneal lymphadenopathy. The aorta, visceral vessels and renal arteries demonstrate normal caliber and patency. The lower thoracic and lumbar vertebrae are in normal alignment. IMPRESSION: 1 cm mass in the left adrenal gland concerning for malignancy. Follow-up CT using adrenal protocol or MRI is recommended. There are fluid-filled distended small bowel loops. Decompressed distal small bowel loops may represent a partial small bowel obstruction secondary to a ventral wall hernia containing small bowel loops. All CT scans at this facility are performed using low dose modulation techniques as appropriate to perform exam including the following: automated exposure control; use of iterative reconstruction technique; adjustment of the mA and/or kV according to patient size (this includes techniques or standardized protocols for targeted exams where dose is matched to indication/reason for exam). Reviewed, dictated and finalized at location S. IMPRESSION: 1 cm mass in the left adrenal gland concerning for malignancy. Follow-up CT usi ng adrenal protocol or MRI is recommended. There are fluid-filled distended small bowel loops. Decompressed distal small bowel loops may represent a partial small bowel obstr uction secondary to a ventral wall hernia containing small bowel loops. All CT scans at this facility are performed using low dose modulation techniqu es as appropriate to perform exam including the following: automated exposure c ontrol; use of iterative reconstruction technique; adjustment of the mA and/or kV according to patient size (this includes techniques or standardized protocol s for targeted exams where dose is matched to indication/reason for exam).
--- NOTE | ~2025-01-23 | XR_ITS ---
XR chest 1V INDICATION:low spo2 . REFERENCE: None FINDINGS: A single AP of the chest demonstrates normal heart size. Right Port-A-Cath is in place and groundglass and interstitial opacities bilaterally There is no evidence of pneumothorax or pleural effusion. IMPRESSION: Groundglass and interstitial opacities bilaterally suggestive of pulmonary congestion. Reviewed, dictated and finalized at location S. IMPRESSION: Groundglass and interstitial opacities bilaterally suggestive of pulmonary mitchell estion.
--- NOTE | 2025-01-23 13:28 | ED.NAVMDI ---
HPI - Nausea/Vomiting/Diarrhea General Chief complaint: Nausea/Vomiting/Diarrhea <Mark Sen APRN - Last Filed: 01/23/25 18:20> Stated complaint: diarrhea for 7 days <Mark Sen APRN - Last Filed: 01/23/25 18:20> Time Seen by Provider: 01/23/25 13:28 <Mark Sen APRN - Last Filed: 01/23/25 18:20> Source: patient <Mark Sen APRN - Last Filed: 01/23/25 18:20> Mode of arrival: ambulatory <Mark Sen APRN - Last Filed: 01/23/25 18:20> Limitations: no limitations <Mark Sen APRN - Last Filed: 01/23/25 18:20> History of Present Illness HPI Narrative: Venessa is an 84-year-old female patient presenting to the clinic today with complaints of diarrhea x7 days. Is experiencing stool incontinence at times. She reports her last episode of diarrhea was early this morning. She states she has had 8-9 diarrhea stools since last night. Denies any blood in her stool. No abdominal pain. States she feels dehydrated. Did have some nausea yesterday but nothing since yesterday. History of diverticulitis and of colectomy-removal of about 13 in of her colon. History of MDS-gets blood weekly on Mondays if her Hgb is <8 -last chemo was in September of 2024. Patient denies being diabetic. Denies any fevers, chills, or body aches. No recent antibiotics. <Mark Sen APRN - Last Filed: 01/23/25 18:20> Related Data Home medications: Home Medications ?Medication ?Instructions ?Recorded ?Confirmed ?Last Taken ?Type lansoprazole 15 mg capsule,delayed 15 mg PO DAILY 04/11/22 01/23/25 01/23/25 History release (Prevacid 24Hr) loratadine 10 mg tablet (Claritin) 10 mg PO DAILY 04/11/22 01/23/25 01/23/25 History spironolactone 25 mg tablet 25 mg PO DAILY 12/26/22 01/23/25 01/23/25 History calcium 500 mg-vitamin D3 100 1 tablet PO DAILY 05/31/23 01/23/25 01/23/25 History unit-vitamin K 40 mcg chewable tablet [id number] 1 tablet PO DAILY 01/07/25 01/23/25 01/23/25 History <Mark Sen APRN - Last Filed: 01/23/25 18:20> Allergies/Adverse reactions: Allergies Allergy/AdvReac Type Severity Reaction Status Date / Time cephalexin AdvReac Mild YEAST Verified 01/23/25 18:37 INFECTION cefdinir AdvReac Unknown Unknown Verified 01/23/25 18:37 clarithromycin AdvReac Unknown Unknown Verified 01/23/25 18:37 clindamycin AdvReac Unknown Other Verified 01/23/25 18:37 codeine AdvReac Unknown Nervousness Verified 01/23/25 18:37 dexamethasone AdvReac Unknown Unknown Verified 01/23/25 18:37 doxycycline AdvReac Unknown Unknown Verified 01/23/25 18:37 morphine AdvReac Unknown Headache Verified 01/23/25 18:37 tobramycin AdvReac Unknown Unknown Verified 01/23/25 18:37 <Mark Sen APRN - Last Filed: 01/23/25 18:20> Review of Systems Review of Systems: Pertinent positives per HPI. Patient denies any fever, chills, rash, headache, visual changes, dizziness, cough, runny nose, sore throat, shortness of breath, chest pain, palpitations, vomiting, constipation, abdominal pain, or any urinary issues. <Mark Sen APRN - Last Filed: 01/23/25 18:20> [facility] Past Medical History Medical History: Medical History Port-A-Cath in place Acute on chronic anemia Rectal bleeding Macrocytic anemia Rhinitis ILD (interstitial lung disease) Vulvar inflammation Obesity DVT prophylaxis Elevated LFTs Hiatal hernia Adrenal adenoma benign Hepatic steatosis and liver cyst Hypothyroidism Pneumonia due to COVID-19 virus COVID-19 virus infection Acute respiratory failure with hypoxia Acid reflux Hypertension Irritable bowel Migraines Osteoporosis <Mark Sen APRN - Last Filed: 01/23/25 18:20> Surgical History Surgical History: Surgical History History of colonoscopy with polypectomy most recent December 2018 with edematous polyps History of reconstructive repair of rectocele (~1995) History of bilateral cataract extraction History of medial meniscus repair of right knee (~2014) S/P laparoscopic-assisted sigmoidectomy (~08/2018) due to chronic diverticulitis History of carpal tunnel surgery of right wrist (~2015) History of hemorrhoidectomy (~2011) History of vaginal hysterectomy (~1995) without oophorectomy History of ankle surgery (~2000) ORIF right ankle <Mark Sen APRN - Last Filed: 01/23/25 18:20> Family History Family History: Family History Sibling Hypertension Hyperlipidemia Thyroid disease it sounds as if the patient sister likely had Graves disease with a thyroidectomy and then became ill because her thyroid hormone was not replaced. Acute myocardial infarction Brother early-onset Artificial cardiac pacemaker brother Mother Hypertension Thyroid disease It sounds as if her mother likely had Graves disease Father Emphysema lung Grandparent Lung cancer Other Carcinoma of colon Family history of malignant neoplasm of breast Family history of pancreatic cancer <Mark Sen APRN - Last Filed: 01/23/25 18:20> Social History Social History: Social History Social History: The patient lives with her of 54 years. They raised a son and a daughter. Their son as 3 daughters and the daughter has a son and a daughter. She is a lifelong nonsmoker. She did have a lot of secondhand smoke exposure as a child. She rarely drinks alcohol and only in small amounts. Primary care provider: Bryan Davey DO Smoking status: Never smoker Second hand tobacco smoke exposure: Yes (10-15 years ago) Alcohol intake: never Alcohol use details: Only rare alcohol use in small amounts. 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 Gender identity (if verbalized by the patient): Female Spiritual care concerns: No <Mark Sen APRN - Last Filed: 01/23/25 18:20> Comments At the time of my signature, I reviewed and agree with the nursing past medical, surgical, social, and family history. There is no relevant family history pertinent to the patient complaint. <Mark Sen APRN - Last Filed: 01/23/25 18:20> Exam Narrative: General: Well-developed, well nourished, in no apparent distress Head: Normocephalic, atraumatic Eyes: Pupils equally round and reactive to light bilaterally, EOM intact, sclera and conjunctive clear, no discharge, lids normal Ears: TMs intact and clear, ear canals clear, no drainage, grossly hearing normal. Nose: Nares patent, no discharge, no inflammation, no sinus tenderness. Mouth: Oropharynx without lesions or masses, good dentition, MM dry. Neck: Supple, trachea midline, no enlargement of anterior or posterior cervical nodes, no thyroid masses or goiter palpable. Cardio: Regular rate and rhythm, s1 and s2 normal, no murmur appreciated. Resp: Clear to auscultation bilaterally anteriorly and posteriorly, no rhonchi, rales, wheezing or rubs General: Well-developed, well nourished, in no apparent distress. Abdomen: Soft, pliable, bowel sounds present in all quadrants, non-tender to palpation, no organomegly, no CVAT tenderness. <Mark Sen APRN - Last Filed: 01/23/25 18:20> Course Course Emergency Course: Portions of this record may have been created with voice recognition software. 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 Supervision i did review the chart and agree with plan and management <Bernard Barillas MD - Last Filed: 01/23/25 21:02> Vital Signs Vital signs: Vital Signs Temperature 36.8 C 01/23/25 13:26 Pulse Rate 98 01/23/25 13:26 Respiratory Rate 14 01/23/25 13:26 Blood Pressure 90/60 L 01/23/25 13:26 Pulse Oximetry 93 01/23/25 13:26 Temperature 37.0 C 01/23/25 18:05 Pulse Rate 92 01/23/25 20:55 Respiratory Rate 16 01/23/25 20:55 Blood Pressure 90/49 L 01/23/25 20:55 Pulse Oximetry 94 01/23/25 21:01 Vital signs reviewed <Mark Sen APRN - Last Filed: 01/23/25 18:20> Vital Signs Temperature 36.8 C 01/23/25 13:26 Pulse Rate 98 01/23/25 13:26 Respiratory Rate 14 01/23/25 13:26 Blood Pressure 90/60 L 01/23/25 13:26 Pulse Oximetry 93 01/23/25 13:26 Temperature 37.0 C 01/23/25 18:05 Pulse Rate 92 01/23/25 20:55 Respiratory Rate 16 01/23/25 20:55 Blood Pressure 90/49 L 01/23/25 20:55 Pulse Oximetry 94 01/23/25 21:01 <Bernard Barillas MD - Last Filed: 01/23/25 21:02> MDM - Nausea/Vomiting/Diarrhea MDM Narrative Medical decision making narrative: At the time of visit patient is resting comfortably on the exam table. Patient appears to be nontoxic. Complaints of diarrhea x7 days. Is experiencing stool incontinence at times. She reports her last episode of diarrhea was early this morning. She states she has had 8-9 diarrhea stools since last night. Denies any blood in her stool. No abdominal pain. States she feels dehydrated. Did have some nausea yesterday but nothing since yesterday. History of diverticulitis and of colectomy-removal of about 13 in of her colon. History of MDS-gets blood weekly-last chemo was in September of 2024. Patient denies being diabetic she denies any fevers, chills, body aches. No recent antibiotics. Patient's blood pressure is 90/60 with a heart rate of 98. SpO2 93% on room air. Patient denies any shortness of breath or chest pain. Labs, stool studies, CT of abdomen and pelvis and IV with IV bolus ordered. SpO2 93% on room air-SpO2 decreased to 86% on room air-oxygen was ordered. Labs: White blood cell counts 2.8, H&H is 7.1 in 21.8, platelet counts 165, sodium levels 138, potassium is 3.5, chloride of 100, CO2 of 32, BUN of 10, creatinine 0.56, GFR is greater than 60, lactic acid 1.0 AST 33, ALT is 46, alk-phos 48, lipase 27. Stool studies were ordered, urine unremarkable. Blood type is O positive with negative antibody screen Diagnostics: CT abdomen and pelvis with contrast performed-1 cm mass in the left adrenal gland concerning for malignancy. Follow-up CT using adrenal protocol or MRI is recommended. There are fluid-filled distended small bowel loops. Decompressed distal small bowel loops may represent a partial small bowel obstruction secondary to a ventral wall hernia containing small bowel loops., Chest x-ray shows pulmonary congestion. Medications: IV fluids normal saline 1 L given, 1 unit of packed red blood cells ordered Plan: Patient has not had any stools while in the ER. Patient is hypoxic, hypovolemic, and appears dehydrated. History of MDS with weekly blood transfusions. Discussed patient's case with Dr. Sams- Will admit patient to the hospital. Contacted Tariq TAYL[facility]- [facility] and she accepts patient for admission. Patient would like to be a full code. <Mark Sen APRN - Last Filed: 01/23/25 18:20> Differential Diagnosis Differential diagnosis: Likely traveler's diarrhea, food poisoning, gastroenteritis, clostridium difficile infection, dehydration and other (Constipation, infectious diarrhea) <Mark Sen APRN - Last Filed: 01/23/25 18:20> Lab Data Result diagrams: 01/23/25 14:22 01/23/25 14:22 <Mark Sen APRN - Last Filed: 01/23/25 18:20> Labs: Lab Results 01/23/25 01/23/25 01/23/25 Range/Units 14:22 14:31 15:33 WBC 2.8 L (4.5-10.0) K/mm3 RBC 2.08 L (4.2-5.4) M/mm3 Hgb 7.1 L (12.0-15.0) g/dL Hct 21.8 L (37.0-47.0) % MCV 104.8 H (80-100) fl MCH 34.1 H (26-34) pg MCHC 32.6 (32-36) g/dl RDW 21.2 H (11.5-14.5) % Plt Count 165 (150-375) k/mm3 MPV 11.1 H (7.4-10.4) fl Immature Gran % (Auto) 1.1 H (0-0.5) % Neut % (Auto) 68.5 (45.5-73.1) % Lymph % (Auto) 21.1 (18.3-44.2) % [place] % (Auto) 7.5 (2.6-8.5) % Eos % (Auto) 1.1 (0-4.4) % Baso % (Auto) 0.7 (0.2-1.2) % Lymph # (Auto) 0.59 L (0.9-3.2) K/mm3 [place] # (Auto) 0.2 (0.1-0.6) K/mm3 Eos # (Auto) 0.0 (0-0.3) K/mm3 Baso # (Auto) 0.0 (0.0-0.1) K/mm3 Abs Immat Gran (auto) 0.03 (0.00-0.031) K/mm3 Absolute Neuts (auto) 1.9 (1.3-6.7) K/mm3 Absolute Nucleated RBC 0.030 H (0.0-0.012) K/mm3 Nucleated RBC % 1.1 H (0.0-0.2) % Sodium 138 (137-145) mmol/L Potassium 3.5 (3.4-5.0) mmol/L Chloride 100 (98-107) mmol/L Carbon Dioxide 32 H (22-30) mmol/L Anion Gap 6 (4-12) mmol/L BUN 10 (7-17) mg/dL Creatinine 0.56 L (0.7-1.0) mg/dL Estim Creat Clear Calc 55 ml/min Estimated GFR > 60 (59 - ) Glucose 104 (65-110) mg/dL Lactic Acid 1.0 (0.7-2.0) mmol/L Calcium 8.7 (8.4-10.2) mg/dL Total Bilirubin 2.1 H (0.2-1.3) mg/dL AST 33 (14-36) U/L ALT 46 H (6-35) U/L Alkaline Phosphatase 48 (38-126) U/L Total Protein 6.0 L (6.3-8.2) g/dL Albumin 3.6 (3.5-5.1) g/dL Lipase 27 (23-300) U/L Urine Color (Yellow) Urine Appearance (Clear) Urine pH (5.0-9.0) Ur Specific [place] (1.001-1.035) Urine Protein (Negative) mg/dL Urine Glucose (UA) (Negative) mg/dL Urine Ketones (Negative) mg/dL Ur Blood (Man) (Negative) Urine Nitrate (Negative) Urine Bilirubin (Negative) Urine Urobilinogen (<2.0) mg/dL Leukocyte Esterase Rfl (Negative) RAJAN/UL Blood Type O Positive Antibody Screen Negative Crossmatch See Detail 01/23/25 Range/Units 15:48 WBC (4.5-10.0) K/mm3 RBC (4.2-5.4) M/mm3 Hgb (12.0-15.0) g/dL Hct (37.0-47.0) % MCV (80-100) fl MCH (26-34) pg MCHC (32-36) g/dl RDW (11.5-14.5) % Plt Count (150-375) k/mm3 MPV (7.4-10.4) fl Immature Gran % (Auto) (0-0.5) % Neut % (Auto) (45.5-73.1) % Lymph % (Auto) (18.3-44.2) % [place] % (Auto) (2.6-8.5) % Eos % (Auto) (0-4.4) % Baso % (Auto) (0.2-1.2) % Lymph # (Auto) (0.9-3.2) K/mm3 [place] # (Auto) (0.1-0.6) K/mm3 Eos # (Auto) (0-0.3) K/mm3 Baso # (Auto) (0.0-0.1) K/mm3 Abs Immat Gran (auto) (0.00-0.031) K/mm3 Absolute Neuts (auto) (1.3-6.7) K/mm3 Absolute Nucleated RBC (0.0-0.012) K/mm3 Nucleated RBC % (0.0-0.2) % Sodium (137-145) mmol/L Potassium (3.4-5.0) mmol/L Chloride (98-107) mmol/L Carbon Dioxide (22-30) mmol/L Anion Gap (4-12) mmol/L BUN (7-17) mg/dL Creatinine (0.7-1.0) mg/dL Estim Creat Clear Calc ml/min Estimated GFR (59 - ) Glucose (65-110) mg/dL Lactic Acid (0.7-2.0) mmol/L Calcium (8.4-10.2) mg/dL Total Bilirubin (0.2-1.3) mg/dL AST (14-36) U/L ALT (6-35) U/L Alkaline Phosphatase (38-126) U/L Total Protein (6.3-8.2) g/dL Albumin (3.5-5.1) g/dL Lipase (23-300) U/L Urine Color Yellow (Yellow) Urine Appearance Clear (Clear) Urine pH 7.5 (5.0-9.0) Ur Specific [place] > 1.045 H (1.001-1.035) Urine Protein Negative (Negative) mg/dL Urine Glucose (UA) Negative (Negative) mg/dL Urine Ketones Negative (Negative) mg/dL Ur Blood (Man) Negative (Negative) Urine Nitrate Negative (Negative) Urine Bilirubin Negative (Negative) Urine Urobilinogen 1.0 (<2.0) mg/dL Leukocyte Esterase Rfl Negative (Negative) RAJAN/UL Blood Type Antibody Screen Crossmatch <Mark Sen, INSPECTOR HOT FORGINGS - Last Filed: 01/23/25 18:20> Lab Results 01/23/25 01/23/25 01/23/25 Range/Units 14:22 14:31 15:33 WBC 2.8 L (4.5-10.0) K/mm3 RBC 2.08 L (4.2-5.4) M/mm3 Hgb 7.1 L (12.0-15.0) g/dL Hct 21.8 L (37.0-47.0) % MCV 104.8 H (80-100) fl MCH 34.1 H (26-34) pg MCHC 32.6 (32-36) g/dl RDW 21.2 H (11.5-14.5) % Plt Count 165 (150-375) k/mm3 MPV 11.1 H (7.4-10.4) fl Immature Gran % (Auto) 1.1 H (0-0.5) % Neut % (Auto) 68.5 (45.5-73.1) % Lymph % (Auto) 21.1 (18.3-44.2) % [place] % (Auto) 7.5 (2.6-8.5) % Eos % (Auto) 1.1 (0-4.4) % Baso % (Auto) 0.7 (0.2-1.2) % Lymph # (Auto) 0.59 L (0.9-3.2) K/mm3 [place] # (Auto) 0.2 (0.1-0.6) K/mm3 Eos # (Auto) 0.0 (0-0.3) K/mm3 Baso # (Auto) 0.0 (0.0-0.1) K/mm3 Abs Immat Gran (auto) 0.03 (0.00-0.031) K/mm3 Absolute Neuts (auto) 1.9 (1.3-6.7) K/mm3 Absolute Nucleated RBC 0.030 H (0.0-0.012) K/mm3 Nucleated RBC % 1.1 H (0.0-0.2) % Sodium 138 (137-145) mmol/L Potassium 3.5 (3.4-5.0) mmol/L Chloride 100 (98-107) mmol/L Carbon Dioxide 32 H (22-30) mmol/L Anion Gap 6 (4-12) mmol/L BUN 10 (7-17) mg/dL Creatinine 0.56 L (0.7-1.0) mg/dL Estim Creat Clear Calc 55 ml/min Estimated GFR > 60 (59 - ) Glucose 104 (65-110) mg/dL Lactic Acid 1.0 (0.7-2.0) mmol/L Calcium 8.7 (8.4-10.2) mg/dL Total Bilirubin 2.1 H (0.2-1.3) mg/dL AST 33 (14-36) U/L ALT 46 H (6-35) U/L Alkaline Phosphatase 48 (38-126) U/L Total Protein 6.0 L (6.3-8.2) g/dL Albumin 3.6 (3.5-5.1) g/dL Lipase 27 (23-300) U/L Urine Color (Yellow) Urine Appearance (Clear) Urine pH (5.0-9.0) Ur Specific [place] (1.001-1.035) Urine Protein (Negative) mg/dL Urine Glucose (UA) (Negative) mg/dL Urine Ketones (Negative) mg/dL Ur Blood (Man) (Negative) Urine Nitrate (Negative) Urine Bilirubin (Negative) Urine Urobilinogen (<2.0) mg/dL Leukocyte Esterase Rfl (Negative) RAJAN/UL Blood Type O Positive Antibody Screen Negative Crossmatch See Detail 01/23/25 Range/Units 15:48 WBC (4.5-10.0) K/mm3 RBC (4.2-5.4) M/mm3 Hgb (12.0-15.0) g/dL Hct (37.0-47.0) % MCV (80-100) fl MCH (26-34) pg MCHC (32-36) g/dl RDW (11.5-14.5) % Plt Count (150-375) k/mm3 MPV (7.4-10.4) fl Immature Gran % (Auto) (0-0.5) % Neut % (Auto) (45.5-73.1) % Lymph % (Auto) (18.3-44.2) % [place] % (Auto) (2.6-8.5) % Eos % (Auto) (0-4.4) % Baso % (Auto) (0.2-1.2) % Lymph # (Auto) (0.9-3.2) K/mm3 [place] # (Auto) (0.1-0.6) K/mm3 Eos # (Auto) (0-0.3) K/mm3 Baso # (Auto) (0.0-0.1) K/mm3 Abs Immat Gran (auto) (0.00-0.031) K/mm3 Absolute Neuts (auto) (1.3-6.7) K/mm3 Absolute Nucleated RBC (0.0-0.012) K/mm3 Nucleated RBC % (0.0-0.2) % Sodium (137-145) mmol/L Potassium (3.4-5.0) mmol/L Chloride (98-107) mmol/L Carbon Dioxide (22-30) mmol/L Anion Gap (4-12) mmol/L BUN (7-17) mg/dL Creatinine (0.7-1.0) mg/dL Estim Creat Clear Calc ml/min Estimated GFR (59 - ) Glucose (65-110) mg/dL Lactic Acid (0.7-2.0) mmol/L Calcium (8.4-10.2) mg/dL Total Bilirubin (0.2-1.3) mg/dL AST (14-36) U/L ALT (6-35) U/L Alkaline Phosphatase (38-126) U/L Total Protein (6.3-8.2) g/dL Albumin (3.5-5.1) g/dL Lipase (23-300) U/L Urine Color Yellow (Yellow) Urine Appearance Clear (Clear) Urine pH 7.5 (5.0-9.0) Ur Specific [place] > 1.045 H (1.001-1.035) Urine Protein Negative (Negative) mg/dL Urine Glucose (UA) Negative (Negative) mg/dL Urine Ketones Negative (Negative) mg/dL Ur Blood (Man) Negative (Negative) Urine Nitrate Negative (Negative) Urine Bilirubin Negative (Negative) Urine Urobilinogen 1.0 (<2.0) mg/dL Leukocyte Esterase Rfl Negative (Negative) RAJAN/UL Blood Type Antibody Screen Crossmatch <Bernard Barillas MD - Last Filed: 01/23/25 21:02> Imaging Data Radiologist's impression: ITS Impressions Chest X-Ray 01/23/25 15:29 IMPRESSION: Groundglass and interstitial opacities bilaterally suggestive of pulmonary congestion. Abdomen/Pelvis CT 01/23/25 15:38 IMPRESSION: 1 cm mass in the left adrenal gland concerning for malignancy. Follow-up CT using adrenal protocol or MRI is recommended. There are fluid-filled distended small bowel loops. Decompressed distal small bowel loops may represent a partial small bowel obstruction secondary to a ventral wall hernia containing small bowel loops. All CT scans at this facility are performed using low dose modulation techniques as appropriate to perform exam including the following: automated exposure control; use of iterative reconstruction technique; adjustment of the mA and/or kV according to patient size (this includes techniques or standardized protocols for targeted exams where dose is matched to indication/reason for exam). <Mark Sen APRN - Last Filed: 01/23/25 18:20> Discharge Plan Discharge Clinical Impression: MDS (myelodysplastic syndrome), Hypovolemia, Acute diarrhea, Hypoxia, Dehydration <Mark Sen APRN - Last Filed: 01/23/25 18:20> Patient Disposition: Still a Patient <Mark Sen APRN - Last Filed: 01/23/25 18:20> Condition: Stable <Mark Sen APRN - Last Filed: 01/23/25 18:20> Time of Disposition: 16:46 <Mark Sen APRN - Last Filed: 01/23/25 18:20> 16:46 <Bernard Barillas MD - Last Filed: 01/23/25 21:02> Quality NIHSS Nursing Documentation ED NIHSS nursing documentation: reviewed/agree <Mark Sen APRN - Last Filed: 01/23/25 18:20>
--- OUTSIDE RECORDS SUMMARY | 2025-01-23 14:16 | XMS_ITS | Clinical Summary ---
Author Organization [facility] Address [address], [address] [address] Phone Care Team Providers Care General Accounting Clerk Name Role Phone Mervat Kelley APRN Primary Care Provider [phone]- [phone] Medications polyethylene glycol (MIRALAX) Powder Use entire [...] age to complete this topic Insurance MEDICARE [facility] Care Teams General Accounting Clerk Relationship Specialty Start Date End Date Mervat Kelley APRN PCP - General Advanced Practice Nurse 06/12/17
--- OUTSIDE RECORDS SUMMARY | 2025-01-23 14:16 | XMS_ITS | Clinical Summary ---
Author Organization [facility] Facility Address [address] [address] Care Team Providers Care [employer] Name Role Phone Unavailable Primary Care Provider [...]
--- OUTSIDE RECORDS SUMMARY | 2025-01-23 14:16 | XMS_ITS | Clinical Summary ---
Author Organization [facility] [place] Address [address] [place] [address] Care Team Providers Care Slate Splitter Name Role Phone Unavailable Primary Care Provider [...]
--- OUTSIDE RECORDS SUMMARY | 2025-01-23 14:16 | XMS_ITS | Encounter Summary ---
Author Organization [facility] Address [address] [place] [address] Care Team Providers Care Green Energy Marketing Analyst Name Role Phone Mervat Kelley FARM GENERAL MANAGER-FENCE INSTALLER FOREMAN Primary Care Provider + Encounter Details Date Type Department Care Team (Late st Contact Info) Description 10/05/[address] [facility] - Pathology Lab [address] [place] [address] Jesus Louis MD [address] [address] Anemia, unspecified Social History Tobacco [...] AM CDT) Case Report Flow Cytometry Case: [id number] Authorizing Provider: Jesus Louis MD Collected: 10/05/2022 09:15 AM Ordering Location: [facility] [place] [facility] Pathology Lab Received: 10/05/2022 02:15 PM Pathologist: Linda Hauser MD Specimen: Bone Marrow 10/05/2022 4:45 PM CDT [facility] Final Diagnosis Bone marrow, flow cytometric immunophenotypic analysis: - No evidence of non-Hodgkin lymphoma or high-grade myeloid neoplasm. - See interpretation. 10/05/2022 4:45 PM CDT [facility] at [address] [...] the flow cytometry specimen is reviewed for director of quality improvement purposes. The bone marrow specimen shows no [...] ID # [id number] 10/05/2022 4:45 PM CDT [facility] Number of markers 10 were performed. A-2 Flow CD10 A-3 Flow CD13 A-5 Flow CD20 A-1 Flow CD5 A-4 Flow CD19 A-6 Flow CD33 A-7 Flow CD34 A-8 Flow CD45 A-9 [place]+CD19+ A-10 Lambda+CD19+ 10/05/2022 4:45 PM CDT [facility] Pathologist Location at [facility] 10/05/2022 4:45 PM CDT [facility] Disclaimer Test performed at [facility], [address] [place], [place], [address]. *The established laboratory minimum viability is 70%. [...] PATHOLOGY LAB Embedded Images 4:45 PM CDT [facility] Pathology/Cytolo gy BONE MARROW SPECIMEN / Unknown 10/05/2022 9:15 AM CDT 10/05/2022 2:15 PM CDT Jesus Louis MD LAB - PATHOLOGY/CYTOLOGY ORDERAB LES Final Result Performing Organization Address City/State/[facility] Co de Phone Number [facility] [address] [place] [address]. [address] [phone] documented in this encounter Visit Diagnoses Diagnosis Anemia, unspecified documented in this encounter Care Teams Green Energy Marketing Analyst Relationship Specialty Start Date End Date Mervat Kelley APRN-CNP [address] [address] PCP - General 11/24/21 documented as of this encounter
--- OUTSIDE RECORDS SUMMARY | 2025-01-23 14:16 | XMS_ITS | Clinical Summary ---
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); Myelodysplastic syndrome (HCC); Chronic anemia; MDS (myelodysplastic syndrome) (HCC); Encounter for care related to Port-a-Cath 01/20/2025 10:00 AM CDT Lab [address] [place] [address] Myelodysplastic syndrome (HCC); Chronic anemia; MDS (myelodysplastic syndrome) (HCC); Anemia in neoplastic disease 01/20/2025 Orders Only [facility] [address] [place] [address] Medical Office Bldg [address] [place] [address] Chalino Chapa MD 01/15/2025 10:30 AM CDT Lab [address] [place] [address] Myelodysplastic syndrome (HCC); Anemia in neoplastic disease; Chronic anemia 01/15/2025 10:30 AM CDT Infusion [facility] Infusion [address] [place] [address] MDS (myelodysplastic syndrome) (HCC) (Primary Dx); Myelodysplastic syndrome (HCC); Anemia in neoplastic disease 01/14/2025 [facility] [address] [place] [address] Office [facility] [address] [place] [address] Betty Sewell, ALBERT 01/14/2025 Orders Only [facility] [address] [place] [address] [address] [place] [address] Chalino Chapa MD Myelodysplastic syndrome (HCC) (Primary Dx); Anemia in neoplastic disease 01/06/2025 10:00 AM CDT Lab [address] [place] [address] Myelodysplastic syndrome (HCC); Chronic anemia 01/06/2025 10:00 AM CDT Infusion [facility] Infusion [address] [place] [address] 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); Myelodysplastic syndrome (HCC); Chronic anemia; MDS (myelodysplastic syndrome) (HCC) 01/06/2025 Orders Only [facility] [address] [place] [address] [address] [place] [address] Chalino Chapa MD 01/06/2025 Orders Only [facility] [address] [place] [address] Office [facility] [address] [place] [address] Chalino Chapa MD Myelodysplastic syndrome (HCC) (Primary Dx) 12/31/2024 9:30 AM CDT Office Visit [facility] [address] [place] [address] Office [facility] [address] [place] [address] Chalino Chapa MD Myelodysplastic syndrome (HCC) (Primary Dx); Chronic anemia; Anemia in neoplastic disease 12/31/2024 9:00 AM CDT Lab [address] [place] [address] Myelodysplastic syndrome (HCC); Anemia in neoplastic disease 12/30/2024 Telephone [facility] [address] [place] [address] Medical Office Bldg [address] [place] [address] Clau Cabral CLT 12/24/2024 11:30 AM CDT Lab [address] [place] [address] Myelodysplastic syndrome (HCC); Anemia in neoplastic disease; MDS (myelodysplastic syndrome) (HCC) 12/24/2024 11:30 AM CDT Infusion [address] [place] [address] 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); MDS (myelodysplastic syndrome) (HCC) 12/18/2024 10:30 AM CDT Lab [address] [place] [address] Myelodysplastic syndrome (HCC); Anemia in neoplastic disease; MDS (myelodysplastic syndrome) (HCC) 12/18/2024 10:30 AM CDT Infusion [address] [place] [address] MDS (myelodysplastic syndrome) (HCC) (Primary Dx); Myelodysplastic syndrome (HCC); Anemia in neoplastic disease 12/18/2024 Results [facility] [address] [place] [address] Medical Office Bldg [address] [place] [phone] Theresa Gutierres, ALBERT CBC with auto differential, Differential, auto 12/18/2024 Orders Only [facility] [address] [place] [address] Medical Office Bldg [address] [place] [phone] Michael Terry MD 12/16/[address] [place] [address] Chalino Chapa MD 12/09/[address] [place] [address] Chalino Chapa MD 12/09/2024 Documentation [facility] [address] [place] [address] Medical Office Bldg [address] [place] [address] Betty Sewell RN 12/03/2024 9:30 AM CDT Infusion [address] [place] [address] Bud Rubio RN MDS (myelodysplastic syndrome) (HCC) 12/03/2024 9:00 AM CDT Office Visit [facility] [address] [place] [address] Medical Office Bldg [address] [place] [address] Chalino Chapa MD Myelodysplastic syndrome (HCC) (Primary Dx); Anemia in neoplastic disease; MDS (myelodysplastic syndrome) (HCC) 12/03/2024 8:30 AM CDT Lab [address] [place] [address] MDS (myelodysplastic syndrome) (HCC); Myelodysplastic syndrome (HCC) 11/29/2024 9:00 AM CDT Infusion [address] [address] Radha Veliz RN Anemia in neoplastic disease; MDS (myelodysplastic syndrome) (HCC) 11/29/2024 8:30 AM CDT Lab [address] [place] [address] Anemia in neoplastic disease; MDS (myelodysplastic syndrome) (HCC) 11/28/2024 Orders Only [facility] [address] [place] [address] Medical Office dg [address] [place] [address] Chalino Chapa MD 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); MDS (myelodysplastic syndrome) ([facility]) 11/28/2024 Telephone [facility] [address] [place] [address] Medical Office Bldg [address] [place] [address] Anisa Villagran, CLT 11/26/2024 9:45 AM CDT Lab [address] [place] [address] MDS (myelodysplastic syndrome) ([facility]) 11/19/2024 10:00 AM CDT Infusion [address] [place] [address] Betty Donaldson, BUSINESS DEVELOPMENT PROFESSIONAL (myelodysplastic syndrome) ([facility]) 11/19/2024 9:45 AM CDT Lab [address] [place] [address] MDS (myelodysplastic syndrome) ([facility]) 11/14/2024 10:00 AM CDT Infusion [address] [place] [address] Radha Veliz RN 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); MDS (myelodysplastic syndrome) ([facility]) 11/14/2024 9:45 AM CDT Lab [address] [place] [address] MDS (myelodysplastic syndrome) ([facility]) 11/14/2024 Orders Only [facility] [address] [place] [address] Medical Office Bldg [address] [place] [address] Chalino Chapa MD 11/12/2024 Telephone [facility] [address] [place] [address] Medical Office Bldg [address] [place] [address] Theresa Gutierres, ALBERT 11/11/2024 10:30 AM CDT Infusion [place] [address] [place] [address] Emile Jackson, RN Encounter for care related to Port-a-Cath (Primary Dx); Myelodysplastic syndrome (HCC); MDS (myelodysplastic syndrome) (HCC) 11/11/2024 10:15 AM CDT Office Visit [facility] [address] [place] [address] Office [facility] [address] [place] [address] Chalino Chapa MD MDS (myelodysplastic syndrome) (HCC) (Primary Dx); Myelodysplastic syndrome (HCC) 11/11/2024 9:45 AM CDT Lab [address] [place] [address] Myelodysplastic syndrome (HCC); MDS (myelodysplastic syndrome) (HCC); Chronic anemia 10/28/2024 Orders Only [facility] [address] [place] [address] [address] [place] [address] Chalino Chapa MD MDS (myelodysplastic syndrome) (HCC) (Primary Dx); Chronic anemia from Last 3 Months Immunizations Immunization Administration [...] eft knee, current 06/06/2018 Added automatically from [facility] for surgery [id number] PONV (postoperative nausea a nd vomiting) Anxiety [...] = 0.6 oz pur e alcohol) [facility] Utilities Answer Date Recorded In the past 12 months has e [employer], gas, oil, or water [employer] threatened to shut off services in your [...] often do you attend chur ch or judaism services? 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 Gender Identity Not on file Sexual Orientation Not on file Obstetrics History Last Filed Vital Signs Vital Sign Reading Time Taken Comments Blood Pressure 148/43 01/20/2025 1:42 PM CDT lef t arm Pulse 89 01/20/2025 1:38 PM CDT Temperature 37 C (98.6 F) 01/20/2025 1:38 PM CDT Respiratory Rate 18 01/20/2025 1:38 PM CDT Oxygen Saturation 91% 01/20/2025 1:38 PM CDT Inhaled Oxygen Concentration - - [...] 10/02, 04/03/2016 Medical Devices Implanted Type Area Title Attorney Device Identifier Shelf Expiration Date Model / Serial / Lot Emre Chaparrita Powerport Mri Airguard 8fr 1 Lumen Attachable Catheter Latex Free [id number] - [id number] Implanted:Qty: 1 on 11/20/2023 by Shade Red MD at [facility] Right: Chest Emre [place] 09/30/2024 [id number] / / [id number] Procedures Procedure Name Priority Date/Time Associated Diagnosis Comments TRANSFUSE RED BLOOD CELLS Timed 01/20/2025 12:08 PM CDT Anemia in neoplastic disease MDS (myelodysplastic syndrome) (HCC) PREPARE RBC Routine 01/20/2025 11:32 AM CDT PREPARE RBC Routine 01/20/2025 11:26 AM CDT Anemia in neoplastic disease MDS (myelodysplastic syndrome) (HCC) CROSSMATCH Routine 01/20/2025 10:25 AM CDT Myelodysplastic syndrome (HCC) Anemia in neoplastic disease DIFFERENTIAL AUTO Routine 01/20/2025 10: 25 AM CDT ANTIBODY SCREEN Routine 01/20/2025 10:25 AM CDT Myelodysplastic syndrome (HCC) Anemia in neoplastic disease ABO/RH Routine 01/20/2025 10:25 AM CDT Myelodysplastic syndrome (HCC) Anemia in neoplastic disease CBC WITH AUTO DIFFERENTIAL Routine 01/20/2025 10:25 AM CDT TYPE AND SCREEN Routine 01/20/2025 10:25 AM CDT Myelodysplastic syndrome (HCC) Anemia in neoplastic disease TRANSFUSE RED BLOOD CELLS Timed 01/15/2025 12:02 PM CDT Anemia in neoplastic disease MDS (myelodysplastic syndrome) (HCC) PREPARE RBC Routine 01/15/2025 11:39 AM CDT PREPARE RBC Routine 01/15/2025 11:33 AM CDT Anemia in neoplastic disease MDS (myelodysplastic syndrome) (HCC) CROSSMATCH Routine 01/15/2025 10:35 AM CDT Myelodysplastic syndrome (HCC) Anemia in neoplastic disease ANTIBODY SCREEN Routine 01/15/2025 10:35 AM CDT Myelodysplastic syndrome (HCC) Anemia in neoplastic disease ABO/RH Routine 01/15/2025 10:35 AM CDT Myelodysplastic syndrome (HCC) Anemia in neoplastic disease TYPE AND SCREEN Routine 01/15/2025 10:35 AM CDT Myelodysplastic syndrome (HCC) Anemia in neoplastic disease DIFFERENTIAL AUTO Routine 01/15/2025 10: 35 AM CDT Myelodysplastic syndrome (HCC) Chronic anemia CBC WITH AUTO DIFFERENTIAL Routine 01/15/2025 10:35 AM CDT Myelodysplastic syndrome (HCC) Chronic anemia TRANSFUSE RED BLOOD CELLS Timed 01/06/2025 10:45 [...] CDT MDS (myelodysplastic syndrome) (HCC) Chronic anemia from Last 3 Months Results * Transfuse RBC (01/20/2025 1:40 PM CDT) Blood us Chalino Chapa MD BLOOD TRANSFUSION ORDERAB LES Final Result * Prepare RBC (01/20/2025 11:32 AM CDT) Unit Number [id number] Product code [id number] [facility] ([place]) Blood Expiration Date [facility] ([place]) Product Blood Type (for scanning) 5100 [facility] ([place]) Product Blood Type OPOS [facility] ([place]) Dispense Status DISPENSED [facility] ([place]) us Chalino Chapa MD BLOOD BANK PRODUCT ORDERA BLES Final Result Performing Organization Address [facility] Co de Phone Number [facility] ([place]) 1 [facility] Department [place] [address] * Prepare RBC: 1 Units (01/20/2025 11:26 AM CDT) Units requested 1 Comment:Testing performed by : [place], [address] Units requested Ready [facility] ([place]) Comment:Testing performed by : [place], [address] Blood 01/20/2025 11:2 6 AM CDT 01/20/2025 11:26 AM CDT Narrative [facility] ([place]) - 01/20/2025 11:26 AM CDT Are special requirements needed? (All products are leukoreduced and CMV- safe)->No us Chalino Chapa MD BLOOD BANK PRODUCT ORDERA BLES Final Result Performing Organization Address [facility] Co de Phone Number [facility] ([place]) 1 [facility] Department [place] [address] * (ABNORMAL) Differential, auto (01/20/2025 10:25 AM CDT) Neutrophil abs 1.89 1.50 - 6.50 K/cumm Comment:Testing performed by : [place], [address] Imm gran abs 0.04 0.00 - 0.10 K/cumm [facility] ([place]) Comment:Testing performed by : [place], [address] Lymphocyte abs 0.46(L) 0.80 - 3.30 K/cumm [facility] ([place]) Comment:Testing performed by : [place], [address] Monocyte abs 0.19(L) 0.20 - 0.80 K/cumm [facility] ([place]) Comment:Testing performed by : [place], [address] Eosinophil abs 0.03 0.00 - 0.50 K/cumm [facility] ([place]) Comment:Testing performed by : [facility], [facility], [place], [address] Basophil abs 0.02 0.00 - 0.10 K/cumm [facility] ([place]) Comment:Testing performed by : [place], [address] Neutrophil pct 71.9 % [facility] ([place]) Comment: Interpretive Data Percent cell count reference ranges are not reported, since discordance with absolute values may lead to misinterpretation of CBC data. Current Interpretive Data was last revised on 2017. Testing performed by: [place], [address] Imm gran pct 1.5 % [facility] ([place]) Comment: Interpretive Data Percent cell count reference ranges are not reported, since discordance with absolute values may lead to misinterpretation of CBC data. Current Interpretive Data was last revised on 2017. Testing performed by: [place], [address] Lymphocyte pct 17.5 % [facility] ([place]) Comment: Interpretive Data Percent cell count reference ranges are not reported, since discordance with absolute values may lead to misinterpretation of CBC data. Current Interpretive Data was last revised on 2017. Testing performed by: [place], [address] Monocyte pct 7.2 % [facility] ([place]) Comment: Interpretive Data Percent cell count reference ranges are not reported, since discordance with absolute values may lead to misinterpretation of CBC data. Current Interpretive Data was last revised on 2017. Testing performed by: [place], [address] Eosinophil pct 1.1 % [facility] ([place]) Comment: Interpretive Data Percent cell count reference ranges are not reported, since discordance with absolute values may lead to misinterpretation of CBC data. Current Interpretive Data was last revised on 2017. Testing performed by: [facility], [facility], [place], [address] Basophil pct 0.8 % [facility] ([place]) Comment: Interpretive Data Percent cell count reference ranges are not reported, since discordance with absolute values may lead to misinterpretation of CBC data. Current Interpretive Data was last revised on 2017. Testing performed by: [facility], [place], [address] Blood 01/20/2025 10:2 5 AM CDT 01/20/2025 10:46 AM CDT us Chalino Chapa MD LAB BLOOD ORDERABLES Aylin freedman Result [facility] ([place]) 1 [facility] Department [place] [address] * (ABNORMAL) CBC with auto differential (01/20/2025 10:25 AM CDT) WBC 2.63(L) 3.80 - 9.90 K/cumm Comment:Testing performed by : [facility], [place], [address] Hgb 7.2(L) 11.9 - 15.5 g/dL [facility] ([place]) Comment:Testing performed by : [facility], [place], [address] Hct 22.4(L) 35.6 - 45.5 % [facility] ([place]) Comment:Testing performed by : [facility], [place], [address] Plt 184 150 - 400 K/cumm [facility] ([place]) Comment:Testing performed by : [facility], [place], [address] MPV 10.9 9.1 - 12.3 fL [facility] ([place]) Comment:Testing performed by : [facility], [place], [address] RBC 2.07(L) 3.90 - 5.20 M/cumm [facility] ([place]) Comment:Testing performed by : [facility], [place], [address] MCV 108.2(H) 81.3 - 96.4 fL [facility] ([place]) Comment:Testing performed by : [facility], [facility], [place], [address] MCH 34.8(H) 27.1 - 33.3 pg [facility] ([place]) Comment:Testing performed by : [place], [address] MCHC 32.1(L) 32.3 - 35.7 g/dL [facility] ([place]) Comment:Testing performed by : [place], [address] RDW CV 21.2(H) 11.1 - 14.9 % [facility] ([place]) Comment:Testing performed by : [facility], [place], [address] RDW SD 80.7(H) 35.7 - 48.1 fL [facility] ([place]) Comment:Testing performed by : [facility], [place], [address] NRBC abs 0.04(H) 0.00 - 0.01 K/cumm [facility] ([place]) Comment:Testing performed by : [place], [address] Blood 01/20/2025 10:2 5 AM CDT 01/20/2025 10:46 AM CDT Chalino Chapa MD LAB BLOOD ORDERABLES Alyin l Result [facility] ([place]) [address] [place] [address] Department [place] [address] * ABO/Rh (01/20/2025 10:25 AM CDT) ABO/Rh O Positive Comment:Testing performed by : [facility], [place], [address] Blood 01/20/2025 10:2 5 AM CDT 01/20/2025 10:46 AM CDT Narrative [facility] ([place]) - 01/20/2025 11:24 AM CDT Hcapa= weekly type and screen for possible blood transfusion on 12/10, 12/17, 12/24, and 12/31/2024 Has the patient had Daratumumab or Isatuximab in the past 6 months?->No Chalino Chapa MD LAB BLOOD BANK TEST ORDER LAITH Final Result Performing Organization Address City/[facility]/ZIP Co de Phone Number SABRA [facility] ([place]) 1 [facility] [place] [address] * Crossmatch (01/20/2025 10:25 AM CDT) Crossmatch Compatible [facility]RA [facility] ([place]) Unit number for crossmatch [id number] [facility] ([place]) Blood 01/20/2025 10:2 5 AM CDT 01/20/2025 10:46 AM CDT Chalino Chapa MD LAB BLOOD BANK TEST ORDER LAITH Final Result Performing Organization Address [facility] Co de Phone Number SABRA [facility] ([place]) 1 [facility] [place] [address] * Antibody screen (01/20/2025 10:25 AM CDT) Rivera, indirect, Gel Interpretation Negative ABSC Comment:Testing performed by : [facility], [facility], [place], [address] Blood 01/20/2025 10:2 5 AM CDT 01/20/2025 10:46 AM CDT Narrative SABRA [facility] ([place]) - 01/20/2025 11:24 AM CDT Chapa= weekly type and screen for possible blood transfusion on 12/10, 12/17, 12/24, and 12/31/2024 Has the patient had Daratumumab or Isatuximab in the past 6 months?->No Chalino Chapa MD LAB BLOOD BANK TEST ORDER LAITH Final Result Performing Organization Address City/[facility]/ZIP Co de Phone Number SABRA [facility] ([place]) 1 [facility] [place] [address] * Transfuse RBC (01/15/2025 1:33 PM CDT) Blood us Chalino Chapa MD BLOOD TRANSFUSION ORDERAB LES Final Result * Prepare RBC (01/15/2025 11:39 AM CDT) Unit Number [id number] Product code [id number] [facility] ([place]) Blood Expiration Date [facility] ([place]) Product Blood Type (for scanning) 5100 [facility] ([place]) Product Blood Type OPOS [facility] ([place]) Dispense Status DISPENSED [facility] ([place]) us Chalino Chapa MD BLOOD BANK PRODUCT ORDERA BLES Final Result Performing Organization Address City/[facility]/ZIP Co de Phone Number [facility] ([place]) [address] [place] [address] [place] [address] * Prepare RBC: 1 Units (01/15/2025 11:33 AM CDT) Units requested 1 Comment:Testing performed by : [place], [address] Units requested Ready [facility] ([place]) Comment:Testing performed by : [place], [address] Blood 01/15/2025 11:3 3 AM CDT 01/15/2025 11:33 AM CDT Narrative [facility] ([place]) - 01/15/2025 11:58 AM CDT Are special requirements needed? (All products are leukoreduced and CMV- safe)->Yes us Chalino hCapa MD BLOOD BANK PRODUCT ORDERA BLES Final Result [facility] ([place]) 1 [facility] [place] [address] * (ABNORMAL) Differential, auto (01/15/2025 10:35 AM CDT) Neutrophil abs 1.30(L) 1.50 - 6.50 K/cumm [facility] ([place]) Comment:Testing performed by : [facility] [address], Medical Office [facility] [address], [place] [address] Imm gran abs 0.02 0.00 - 0.10 K/cumm [facility] ([place]) Comment:Testing performed by : [facility] [address], Medical Office [facility] [address], [place] [address] Lymphocyte abs 0.50(L) 0.80 - 3.30 K/cumm [facility] ([place]) Comment:Testing performed by : [facility] [address], Medical Office [facility] [address], [place] [address] Monocyte abs 0.15(L) 0.20 - 0.80 K/cumm [facility] ([place]) Comment:Testing performed by : [facility] [address], Medical Office [facility] [address], [place] [address] Eosinophil abs 0.02 0.00 - 0.50 K/cumm [facility] ([place]) Comment:Testing performed by : [facility] [address], Medical Office [facility] [address], [place] [address] Basophil abs 0.02 0.00 - 0.10 K/cumm [facility] ([place]) Comment:Testing performed by : [facility] [address], Medical Office [facility] [address], [place] [address] Neutrophil pct 64.6 % [facility] ([place]) Comment: Interpretive Data Percent cell count reference ranges are not reported, since discordance with absolute values may lead to misinterpretation of CBC data. Current Interpretive Data was last revised on 2022. Testing performed by: [facility] [address], Medical Office [facility] [address], [place] [address] Imm gran pct 1.0 % [facility] ([place]) Comment: Interpretive Data Percent cell count reference ranges are not reported, since discordance with absolute values may lead to misinterpretation of CBC data. Current Interpretive Data was last revised on 2022. Testing performed by: [facility] [address], Medical Office [facility] [address], [place] [address] Lymphocyte pct 24.9 % [facility] ([place]) Comment: Interpretive Data Percent cell count reference ranges are not reported, since discordance with absolute values may lead to misinterpretation of CBC data. Current Interpretive Data was last revised on 2022. Testing performed by: [facility] [address], Medical Office [facility] [address], [place] [address] Monocyte pct 7.5 % [facility] ([place]) Comment: Interpretive Data Percent cell count reference ranges are not reported, since discordance with absolute values may lead to misinterpretation of CBC data. Current Interpretive Data was last revised on 2022. Testing performed by: [facility] [address], Medical Office [facility] [address], [place] [address] Eosinophil pct 1.0 % [facility] ([place]) Comment: Interpretive Data Percent cell count reference ranges are not reported, since discordance with absolute values may lead to misinterpretation of CBC data. Current Interpretive Data was last revised on 2022. Testing performed by: [facility] [address], Medical Office [facility] B [facility] [address], [place] [address] Basophil pct 1.0 % [facility] ([place]) Comment: Interpretive Data Percent cell count reference ranges are not reported, since discordance with absolute values may lead to misinterpretation of CBC data. Current Interpretive Data was last revised on 2022. Testing performed by: [facility] [address], Medical Office [facility] B [facility] [address], [place] [address] Blood 01/15/2025 10:3 5 AM CDT 01/15/2025 10:38 AM CDT us Chalino Chapa MD LAB BLOOD ORDERABLES Aylin freedman Result [facility] ([place]) 1 [facility] Department [place] [address] * (ABNORMAL) CBC with auto differential (01/15/2025 10:35 AM CDT) WBC 2.01(L) 3.80 - 9.90 K/cumm [facility] ([place]) Comment:Testing performed by : [facility] [address], Medical Office [facility] [address], [place] [address] Hgb 6.5(L) 11.9 - 15.5 g/dL [facility] ([place]) Comment:Testing performed by : [facility] [address], Medical Office [facility] B [facility] [address], [place] [address] Hct 20.1(L) 35.6 - 45.5 % [facility] ([place]) Comment:Testing performed by : [facility] [address], Medical Office [facility] B [facility] [address], [place] [address] Plt 174 150 - 400 K/cumm [facility] ([place]) Comment:Testing performed by : [facility] [address], Medical Office [facility] B [facility] [address], [place] [address] MPV 10.6 9.1 - 12.3 fL [facility] ([place]) Comment:Testing performed by : [facility] [address], Medical Office [facility] B [facility] [address], [place] [address] RBC 1.80(L) 3.90 - 5.20 M/cumm [facility] ([place]) Comment:Testing performed by : [facility] [address], Medical Office [facility] B [facility] [address], [place] [address] MCV 111.7(H) 81.3 - 96.4 fL [facility] ([place]) Comment:Testing performed by : [facility] [address], Medical Office [facility] [address], [place] [address] MCH 36.1(H) 27.1 - 33.3 pg [facility] ([place]) Comment:Testing performed by : [facility] [address], Medical Office [facility] [address], [place] [address] MCHC 32.3 32.3 - 35.7 g/dL [facility] ([place]) Comment:Testing performed by : [facility] [address], Medical Office [facility] [address], [place] [address] RDW CV 21.4(H) 11.1 - 14.9 % [facility] ([place]) Comment:Testing performed by : [facility] [address], Medical Office [address], [place] [address] RDW SD 86.6(H) 35.7 - 48.1 fL [facility] ([place]) Comment:Testing performed by : [facility] [address], Medical Office [address], [place] [address] Blood 01/15/2025 10:3 5 AM CDT 01/15/2025 10:38 AM CDT Narrative [facility] ([place]) - 01/15/2025 10:47 AM CDT 01/07, 01/14, 01/21, 01/28 us Chalino Chapa MD LAB BLOOD ORDERABLES Aylin l Result [facility] ([place]) 1 [facility] [place] [address] * ABO/Rh (01/15/2025 10:35 AM CDT) ABO/Rh O Positive Comment:Testing performed by : [facility], One [facility], [place], [address] Blood 01/15/2025 10:3 5 AM CDT 01/15/2025 10:52 AM CDT Narrative [facility] ([place]) - 01/15/2025 11:30 AM CDT Sammi= weekly type and screen for possible blood transfusion on 12/10, 12/17, 12/24, and 12/31/2024 Has the patient had Daratumumab or Isatuximab in the past 6 months?->No us Chalino Chapa MD LAB BLOOD BANK TEST ORDER LAITH Final Result [facility] ([place]) 1 [facility] [place] [address] * Crossmatch (01/15/2025 10:35 AM CDT) Crossmatch Compatible S[facility]RA Silva ([place]) Unit number for crossmatch [id number] [facility] ([place]) Blood 01/15/2025 10:3 5 AM CDT 01/15/2025 10:52 AM CDT Chalino Chapa MD LAB BLOOD BANK TEST ORDER LAITH Final Result Performing Organization Address [facility] Co de Phone Number [facility] ([place]) [address] [place] [address] Department [place] [address] * Antibody screen (01/15/2025 10:35 AM CDT) Pathologist [facility] Rivera, indirect, Gel Interpretation Negative ABSC Comment:Testing performed by : [facility], [place], [address] Blood 01/15/2025 10:3 5 AM CDT 01/15/2025 10:52 AM CDT Narrative [facility] ([place]) - 01/15/2025 11:30 AM CDT Chapa= weekly type and screen for possible blood transfusion on 12/10, 12/17, 12/24, and 12/31/2024 Has the patient had Daratumumab or Isatuximab in the past 6 months?->No Chalino Chapa MD LAB BLOOD BANK TEST ORDER LAITH Final Result Performing Organization Address [facility] Co de Phone Number [facility] ([place]) [address] [place] [address] [place] [address] * Transfuse RBC (01/06/2025 12:34 PM CDT) Blood Chalino Chapa MD BLOOD TRANSFUSION ORDERAB LES Final Result * Prepare RBC (01/06/2025 10:34 AM CDT) Unit Number [id number] Product code [id number] [facility] ([place]) Blood Expiration Date [facility] ([place]) Product Blood Type (for scanning) 9500 [facility] ([place]) Product Blood Type ONEG [facility] ([place]) Dispense Status DISPENSED [facility] ([place]) us Chalino Chapa MD BLOOD BANK PRODUCT ORDERA BLES Final Result Performing Organization Address [facility]/ZIP Co de Phone Number [facility] ([place]) 1 [facility] [place] [address] * Prepare RBC: 1 Units (01/06/2025 10:08 AM CDT) Units requested 1 Comment:Testing performed by : [facility], [place], [address] Units requested Ready [facility] ([place]) Comment:Testing performed by : [facility], [place], [address] Blood 01/06/2025 10:0 8 AM CDT 01/06/2025 10:08 AM CDT Narrative [facility] ([place]) - 01/06/2025 10:08 AM CDT Are special requirements needed? (All products are leukoreduced and CMV- safe)->No us Chalino Chapa MD BLOOD BANK PRODUCT ORDERA BLES Final Result Performing Organization Address [facility] Co de Phone Number [facility] ([place]) 1 [facility] [place] [address] * Crossmatch (01/06/2025 10:06 AM CDT) Crossmatch Compatible [facility] ([place]) Unit number for crossmatch [id number] [facility] ([place]) Blood 01/06/2025 10:0 6 AM CDT 01/06/2025 10:06 AM CDT us Chalino Chapa MD LAB BLOOD BANK TEST ORDER LAITH Final Result [facility] ([place]) [address] Department [place] [address] * (ABNORMAL) Differential, auto (01/06/2025 9:10 AM CDT) Neutrophil abs 1.18(L) 1.50 - 6.50 K/cumm [facility] ([place]) Comment:Testing performed by : [facility] [address], Medical Office [facility] [address], [place] [address] Imm gran abs 0.02 0.00 - 0.10 K/cumm [facility] ([place]) Comment:Testing performed by : [facility] [address], Medical Office [facility] [address], [place] [address] Lymphocyte abs 0.48(L) 0.80 - 3.30 K/cumm [facility] ([place]) Comment:Testing performed by : [facility] [address], Medical Office [facility] [address], [place] [address] Monocyte abs 0.16(L) 0.20 - 0.80 K/cumm [facility] ([place]) Comment:Testing performed by : [facility] [address], Medical Office [facility] [address], [place] [address] Eosinophil abs 0.11 0.00 - 0.50 K/cumm [facility] ([place]) Comment:Testing performed by : [facility] [address], Medical Office [facility] [address], [place] [address] Basophil abs 0.03 0.00 - 0.10 K/cumm [facility] ([place]) Comment:Testing performed by : [facility] [address], Medical Office [facility] [address], [place] [address] Neutrophil pct 59.6 % [facility] ([place]) Comment: Interpretive Data Percent cell count reference ranges are not reported, since discordance with absolute values may lead to misinterpretation of CBC data. Current Interpretive Data was last revised on 2022. Testing performed by: [facility] [address], Medical Office [facility] [address], [place] [address] Imm gran pct 1.0 % [facility] ([place]) Comment: Interpretive Data Percent cell count reference ranges are not reported, since discordance with absolute values may lead to misinterpretation of CBC data. Current Interpretive Data was last revised on 2022. Testing performed by: [facility] [address], Medical Office [facility] B [facility] [address], [place] [address] Lymphocyte pct 24.2 % [facility] ([place]) Comment: Interpretive Data Percent cell count reference ranges are not reported, since discordance with absolute values may lead to misinterpretation of CBC data. Current Interpretive Data was last revised on 2022. Testing performed by: [facility] [address], Medical Office [facility] [address], [place] [address] Monocyte pct 8.1 % [facility] ([place]) Comment: Interpretive Data Percent cell count reference ranges are not reported, since discordance with absolute values may lead to misinterpretation of CBC data. Current Interpretive Data was last revised on 2022. Testing performed by: [facility] [address], Medical Office [facility] B [facility] [address], [place] [address] Eosinophil pct 5.6 % [facility] ([place]) Comment: Interpretive Data Percent cell count reference ranges are not reported, since discordance with absolute values may lead to misinterpretation of CBC data. Current Interpretive Data was last revised on 2022. Testing performed by: [facility] [address], Medical Office [facility] [address], [place] [address] Basophil pct 1.5 % [facility] ([place]) Comment: Interpretive Data Percent cell count reference ranges are not reported, since discordance with absolute values may lead to misinterpretation of CBC data. Current Interpretive Data was last revised on 2022. Testing performed by: [facility] [address], Medical Office [facility] B [facility] [address], [place] [address] Blood 01/06/2025 9:10 AM CDT 01/06/2025 9:14 AM CDT us Chalino Chapa MD LAB BLOOD ORDERABLES Aylin tano Result [facility] ([place]) 1 [facility] Department [place] [address] * (ABNORMAL) CBC with auto differential (01/06/2025 9:10 AM CDT) WBC 1.98(L) 3.80 - 9.90 K/cumm [facility] ([place]) Comment:Testing performed by : [facility] [address], Medical Office [address], [place] [address] Hgb 7.1(L) 11.9 - 15.5 g/dL [facility] ([place]) Comment:Testing performed by : [facility] [address], Medical Office [address], [place] [address] Hct 21.9(L) 35.6 - 45.5 % [facility] ([place]) Comment:Testing performed by : [facility] [address], Medical Office [address], [place] [address] Plt 154 150 - 400 K/cumm [facility] ([place]) Comment:Testing performed by : [facility] [address], Medical Office [facility] [address], [place] [address] MPV 11.2 9.1 - 12.3 fL [facility] ([place]) Comment:Testing performed by : [facility] [address], Medical Office [facility] [address], [place] [address] RBC 1.92(L) 3.90 - 5.20 M/cumm [facility] ([place]) Comment:Testing performed by : [facility] [address], Medical Office [facility] [address], [place] [address] MCV 114.1(H) 81.3 - 96.4 fL [facility] ([place]) Comment:Testing performed by : [facility] [address], Medical Office [address], [place] [address] MCH 37.0(H) 27.1 - 33.3 pg [facility] ([place]) Comment:Testing performed by : [facility] [address], Medical Office [address], [place] [address] MCHC 32.4 32.3 - 35.7 g/dL [facility] ([place]) Comment:Testing performed by : [facility] [address], Medical Office [address], [place] [address] RDW CV 21.4(H) 11.1 - 14.9 % [facility] ([place]) Comment:Testing performed by : [facility] [address], Medical Office [facility] [address], [place] [address] RDW SD 88.7(H) 35.7 - 48.1 fL [facility] ([place]) Comment:Testing performed by : [facility] [address], Medical Office [facility] [address], [place] [address] Blood 01/06/2025 9:10 AM CDT 01/06/2025 9:14 AM CDT Narrative [facility] ([place]) - 01/06/2025 9:17 AM CDT 01/07, 01/14, 01/21, 01/28 us Chalino Chapa MD LAB BLOOD ORDERABLES Aylin l Result [facility] ([place]) 1 [facility] [place] [address] * ABO/Rh (01/06/2025 9:10 AM CDT) ABO/Rh O Positive Comment:Testing performed by : [facility], One [facility], [place], [address] Blood 01/06/2025 9:10 AM CDT 01/06/2025 9:26 AM CDT Narrative [facility] ([place]) - 01/06/2025 10:04 AM CDT 01/07, 01/14, 01/21, 01/28 Has the patient had Daratumumab or Isatuximab in the past 6 months?->Unknown us Chalino Chapa MD LAB BLOOD BANK TEST ORDER LAITH Final Result [facility] ([place]) 1 [facility] [place] [address] * Antibody screen (01/06/2025 9:10 AM CDT) Rivera, indirect, Gel Interpretation Negative ABSC Comment:Testing performed by : [facility], [facility], [place], [address] Blood 01/06/2025 9:10 AM CDT 01/06/2025 9:26 AM CDT Narrative [facility] ([place]) - 01/06/2025 10:04 AM CDT 01/07, 01/14, 01/21, 01/28 Has the patient had Daratumumab or Isatuximab in the past 6 months?->Unknown us Chalino Chapa MD LAB BLOOD BANK TEST ORDER LAITH Final Result [facility] ([place]) [address] [place] [address] Department [place] [address] * eGFR (12/31/2024 8:55 AM CDT) eGFR [...] was last reviewed 2021. Testing performed by: [facility], [facility], [place], [address] Blood 12/31/2024 8:55 AM CDT 12/31/2024 4:08 PM CDT us Chalino Chapa MD LAB BLOOD ORDERABLES Aylin freedman Result [facility] ([place]) 1 [facility] Department [place] [address] * (ABNORMAL) Differential, auto (12/31/2024 8:55 AM CDT) Neutrophil abs 1.01(L) 1.50 - 6.50 K/cumm [facility] ([place]) Comment:Testing performed by : [facility] [address], Medical Office [facility] [address], [place] [address] Imm gran abs 0.00 0.00 - 0.10 K/cumm [facility] ([place]) Comment:Testing performed by : [facility] [address], Medical Office [facility] [address], [place] [address] Lymphocyte abs 0.39(L) 0.80 - 3.30 K/cumm [facility] ([place]) Comment:Testing performed by : [facility] [address], Medical Office [facility] [address], [place] [address] Monocyte abs 0.14(L) 0.20 - 0.80 K/cumm [facility] ([place]) Comment:Testing performed by : [facility] [address], Medical Office [facility] [address], [place] [address] Eosinophil abs 0.04 0.00 - 0.50 K/cumm [facility] ([place]) Comment:Testing performed by : [facility] [address], Medical Office [facility] [address], [place] [address] Basophil abs 0.02 0.00 - 0.10 K/cumm [facility] ([place]) Comment:Testing performed by : [facility] [address], Medical Office [facility] [address], [place] [address] Neutrophil pct 63.0 % [facility] ([place]) Comment: Interpretive Data Percent cell count reference ranges are not reported, since discordance with absolute values may lead to misinterpretation of CBC data. Current Interpretive Data was last revised on 2022. Testing performed by: [facility] [address], Medical Office [address], [place] [address] Imm gran pct 0.0 % [facility] ([place]) Comment: Interpretive Data Percent cell count reference ranges are not reported, since discordance with absolute values may lead to misinterpretation of CBC data. Current Interpretive Data was last revised on 2022. Testing performed by: [facility] [address], Medical Office [address], [place] [address] Lymphocyte pct 24.4 % [facility] ([place]) Comment: Interpretive Data Percent cell count reference ranges are not reported, since discordance with absolute values may lead to misinterpretation of CBC data. Current Interpretive Data was last revised on 2022. Testing performed by: [facility] [address], Medical Office [address], [place] [address] Monocyte pct 8.8 % [facility] ([place]) Comment: Interpretive Data Percent cell count reference ranges are not reported, since discordance with absolute values may lead to misinterpretation of CBC data. Current Interpretive Data was last revised on 2022. Testing performed by: [facility] [address], Medical Office [facility] [address], [place] [address] Eosinophil pct 2.5 % [facility] ([place]) Comment: Interpretive Data Percent cell count reference ranges are not reported, since discordance with absolute values may lead to misinterpretation of CBC data. Current Interpretive Data was last revised on 2022. Testing performed by: [facility] [address], Medical Office [facility] [address], [place] [address] Basophil pct 1.3 % [facility] ([place]) Comment: Interpretive Data Percent cell count reference ranges are not reported, since discordance with absolute values may lead to misinterpretation of CBC data. Current Interpretive Data was last revised on 2022. Testing performed by: [facility] [address], Medical Office [facility] [address], [place] [address] Blood 12/31/2024 8:55 AM CDT 12/31/2024 9:02 AM CDT Chalino Chapa MD LAB BLOOD ORDERABLES Aylin freedman Result [facility] ([place]) 1 [facility] Department [place] [address] * (ABNORMAL) CBC with auto differential (12/31/2024 8:55 AM CDT) WBC 1.60(L) 3.80 - 9.90 K/cumm [facility] ([place]) Comment:Testing performed by : [facility] [address], Medical Office [facility] [address], [place] [address] Hgb 8.0(L) 11.9 - 15.5 g/dL [facility] ([place]) Comment:Testing performed by : [facility] [address], Medical Office [facility] [address], [place] [address] Hct 24.3(L) 35.6 - 45.5 % [facility] ([place]) Comment:Testing performed by : [facility] [address], Medical Office [facility] B [facility] [address], [place] [address] Plt 169 150 - 400 K/cumm [facility] ([place]) Comment:Testing performed by : [facility] [address], Medical Office [facility] B [facility] [address], [place] [address] MPV 10.6 9.1 - 12.3 fL [facility] ([place]) Comment:Testing performed by : [facility] [address], Medical Office [facility] B [facility] [address], [place] [address] RBC 2.14(L) 3.90 - 5.20 M/cumm [facility] ([place]) Comment:Testing performed by : [facility] [address], Medical Office [facility] [address], [place] [address] MCV 113.6(H) 81.3 - 96.4 fL [facility] ([place]) Comment:Testing performed by : [facility] [address], Medical Office [facility] [address], [place] [address] MCH 37.4(H) 27.1 - 33.3 pg [facility] ([place]) Comment:Testing performed by : [facility] [address], Medical Office [facility] [address], [place] [address] MCHC 32.9 32.3 - 35.7 g/dL [facility] ([place]) Comment:Testing performed by : [facility] [address], Medical Office [address], [place] [address] RDW CV 21.1(H) 11.1 - 14.9 % [facility] ([place]) Comment:Testing performed by : [facility] [address], Medical Office [facility] [address], [place] [address] RDW SD 88.1(H) 35.7 - 48.1 fL [facility] ([place]) Comment:Testing performed by : [facility] [address], Medical Office [facility] [address], [place] [address] Blood 12/31/2024 8:55 AM CDT 12/31/2024 9:02 AM CDT Narrative [facility] ([place]) - 12/31/2024 9:05 AM CDT Cbc 12/10, 12/17, 12/24, AND 12/[address] Chapa us Chalino Chapa MD LAB BLOOD ORDERABLES Aylin l Result [facility] 1 [facility] Department [place] [address] * (ABNORMAL) Comprehensive metabolic panel (12/31/2024 8:55 [...] 174 70 - 199 mg/dL [facility] ([place]) Comment: Interpretive Data Fasting glucose >/= 126 [...] 8:55 AM CDT 12/31/2024 4:08 PM CDT Chalino Chapa MD LAB BLOOD ORDERABLES Aylin l Result [facility] ([place]) 1 [facility] Department [place] [address] * Transfuse RBC (12/24/2024 2:50 PM CDT) Blood Chalino Chapa MD BLOOD TRANSFUSION ORDERAB LES Final Result * Prepare RBC: 1 Units (12/24/2024 1:23 PM CDT) Units requested 1 Comment:Testing performed by : [facility], [place], [address] Units requested Ready [facility] ([place]) Comment:Testing performed by : [place], [address] Blood 12/24/2024 1:23 PM CDT 12/24/2024 1:23 PM CDT Narrative SABRA ROGERS ([place]) - 12/24/2024 1:28 PM CDT Are special requirements needed? (All products are leukoreduced and CMV- safe)->No us Chalino Chapa MD BLOOD BANK PRODUCT ORDERA BLES Final Result SABRA ROGERS ([place]) 1 [facility] Department [place] [address] * Prepare RBC (12/24/2024 12:57 PM CDT) Unit Number [id number] Product code [id number] [facility] ([place]) Blood Expiration Date [id number] [facility] ([place]) Product Blood Type (for scanning) 5100 [facility] ([place]) Product Blood Type OPOS [facility] ([place]) Dispense Status DISPENSED AMYPAOLA ROGERS ([place]) us Chalino Chapa MD BLOOD BANK PRODUCT ORDERA BLES Final Result Performing Organization Address City/[facility]/ZIP Co de Phone Number SABRA ROGERS ([place]) 1 [facility] Department [place] [address] * (ABNORMAL) Differential, auto (12/24/2024 11:35 AM CDT) Neutrophil abs 1.01(L) 1.50 - 6.50 K/cumm [facility] ([place]) Comment:Testing performed by : [facility] [address], Medical Office [address], [place] [address] Imm gran abs 0.02 0.00 - 0.10 K/cumm [facility] ([place]) Comment:Testing performed by : [facility] [address], Medical Office [address], [place] [address] Lymphocyte abs 0.74(L) 0.80 - 3.30 K/cumm [facility] ([place]) Comment:Testing performed by : [facility] [address], Medical Office [address], [place] [address] Monocyte abs 0.14(L) 0.20 - 0.80 K/cumm [facility] ([place]) Comment:Testing performed by : [facility] [address], Medical Office [address], [place] [address] Eosinophil abs 0.02 0.00 - 0.50 K/cumm [facility] ([place]) Comment:Testing performed by : [facility] [address], Medical Office [facility] [address], [place] [address] Basophil abs 0.03 0.00 - 0.10 K/cumm [facility] ([place]) Comment:Testing performed by : [facility] [address], Medical Office [facility] [address], [place] [address] Neutrophil pct 51.6 % [facility] R [facility] ([place]) Comment: Interpretive Data Percent cell count reference ranges are not reported, since discordance with absolute values may lead to misinterpretation of CBC data. Current Interpretive Data was last revised on 2022. Testing performed by: [facility] [address], Medical Office [facility] [address], [place] [address] Imm gran pct 1.0 % [facility] ([place]) Comment: Interpretive Data Percent cell count reference ranges are not reported, since discordance with absolute values may lead to misinterpretation of CBC data. Current Interpretive Data was last revised on 2022. Testing performed by: [facility] [address], Medical Office [facility] [address], [place] [address] Lymphocyte pct 37.8 % [facility] ([place]) Comment: Interpretive Data Percent cell count reference ranges are not reported, since discordance with absolute values may lead to misinterpretation of CBC data. Current Interpretive Data was last revised on 2022. Testing performed by: [facility] [address], Medical Office [address], [place] [address] Monocyte pct 7.1 % [facility] ([place]) Comment: Interpretive Data Percent cell count reference ranges are not reported, since discordance with absolute values may lead to misinterpretation of CBC data. Current Interpretive Data was last revised on 2022. Testing performed by: [facility] [address], Medical Office [facility] [address], [place] [address] Eosinophil pct 1.0 % EMELINA ROGERS ([place]) Comment: Interpretive Data Percent cell count reference ranges are not reported, since discordance with absolute values may lead to misinterpretation of CBC data. Current Interpretive Data was last revised on 2022. Testing performed by: [facility] [address], Medical Office [facility] [address], [place] [address] Basophil pct 1.5 % SABRA ROGERS ([place]) Comment: Interpretive Data Percent cell count reference ranges are not reported, since discordance with absolute values may lead to misinterpretation of CBC data. Current Interpretive Data was last revised on 2022. Testing performed by: [facility] [address], Medical Office [facility] [address], [place] [address] Blood 12/24/2024 11:3 5 AM CDT 12/24/2024 11:36 AM CDT us Chalino Chapa MD LAB BLOOD ORDERABLES Aylin freedman Result SABRA ROGERS ([place]) 1 [facility] Department [place] [address] * (ABNORMAL) CBC with auto differential (12/24/2024 11:35 AM CDT) WBC 1.96(L) 3.80 - 9.90 K/cumm SABRA ROGERS ([place]) Comment:Testing performed by : [facility] [address], Medical Office [facility] [address], [place] [address] Hgb 7.5(L) 11.9 - 15.5 g/dL SABRA ROGERS ([place]) Comment:Testing performed by : [facility] [address], Medical Office [facility] [address], [place] [address] Hct 22.6(L) 35.6 - 45.5 % SABRA ROGERS ([place]) Comment:Testing performed by : [facility] [address], Medical Office [facility] B [facility] [address], [place] [address] Plt 168 150 - 400 K/cumm [facility] ([place]) Comment:Testing performed by : [facility] [address], Medical Office [facility] B [facility] [address], [place] [address] MPV 11.2 9.1 - 12.3 fL [facility] ([place]) Comment:Testing performed by : [facility] [address], Medical Office [facility] B [facility] [address], [place] [address] RBC 1.96(L) 3.90 - 5.20 M/cumm [facility] ([place]) Comment:Testing performed by : [facility] [address], Medical Office [facility] B [facility] [address], [place] [address] MCV 115.3(H) 81.3 - 96.4 fL [facility] ([place]) Comment:Testing performed by : [facility] [address], Medical Office [facility] B [facility] [address], [place] [address] MCH 38.3(H) 27.1 - 33.3 pg [facility] ([place]) Comment:Testing performed by : [facility] [address], Medical Office [facility] B [facility] [address], [place] [address] MCHC 33.2 32.3 - 35.7 g/dL [facility] ([place]) Comment:Testing performed by : [facility] [address], Medical Office [facility] B [facility] [address], [place] [address] RDW CV 22.8(H) 11.1 - 14.9 % [facility] ([place]) Comment:Testing performed by : [facility] [address], Medical Office [facility] B [facility] [address], [place] [address] RDW SD 94.4(H) 35.7 - 48.1 fL [facility] ([place]) Comment:Testing performed by : [facility] [address], Medical Office [facility] B [facility] [address], [place] [address] Blood 12/24/2024 11:3 5 AM CDT 12/24/2024 11:36 AM CDT Narrative [facility] ([place]) - 12/24/2024 11:38 AM CDT Cbc 12/10, 12/17, 12/24, AND 12/[address] Chapa us Chalino Cahpa MD LAB BLOOD ORDERABLES Aylin l Result SABRA [facility] ([place]) 1 [facility] [address] * ABO/Rh (12/24/2024 11:35 AM CDT) ABO/Rh O Positive Comment:Testing performed by : [facility], [place], [address] Blood 12/24/2024 11:3 5 AM CDT 12/24/2024 12:16 PM CDT Narrative [facility] ([place]) - 12/24/2024 12:43 PM CDT 11/19, 11/26, 12/03 Has the patient had Daratumumab or Isatuximab in the past 6 months?->Unknown Witnessed by Emile Jackson us Chalino Chapa MD LAB BLOOD BANK TEST ORDER LAITH Final Result Performing Organization Address [facility] Co de Phone Number SABRA [facility] ([place]) [address] [place] [id number] * Crossmatch (12/24/2024 11:35 AM CDT) Pathologist [facility] Crossmatch Compatible SABRA Silva [facility]) Unit number for crossmatch [id number] [facility] ([place]) Blood 12/24/2024 11:3 5 AM CDT 12/24/2024 12:16 PM CDT us Chalino Chapa MD LAB BLOOD BANK TEST ORDER LAITH Final Result SABRA [facility] ([place]) 1 [facility] [address] * Antibody screen (12/24/2024 11:35 AM CDT) Rivera, indirect, Gel Interpretation Negative ABSC Comment:Testing performed by : [place], [address] Blood 12/24/2024 11:3 5 AM CDT 12/24/2024 12:16 PM CDT Narrative SABRA ROGERS ([place]) - 12/24/2024 12:49 PM CDT 11/19, 11/26, 12/03 Has the patient had Daratumumab or Isatuximab in the past 6 months?->Unknown us Chalino Chapa MD LAB BLOOD BANK TEST ORDER LAITH Final Result AMYPAOLA SUE ([place]) [address] [place] [address] [place] [address] * Transfuse RBC (12/18/2024 2:40 PM CDT) Blood Michael Terry MD BLOOD TRANSFUSION ORDERABLES Final Result * Prepare RBC (12/18/2024 12:15 PM CDT) Unit Number [id number] Product code [id number] [facility] ([place]) Blood Expiration Date [facility] ([place]) Product Blood Type (for scanning) 5100 [facility] ([place]) Product Blood Type OPOS [facility] ([place]) Dispense Status DISPENSED [facility] ([place]) us Chalino Chapa MD BLOOD BANK PRODUCT ORDERA BLES Final Result SABRA ROGERS ([place]) 1 [facility] [place] [address] * Prepare RBC: 1 Units (12/18/2024 10:45 AM CDT) Units requested 1 Comment:Testing performed by : [facility], [place], [address] Units requested Ready EMMY ROGERS ([place]) Comment:Testing performed by : [facility], [facility], [place], [address] Blood 12/18/2024 10:4 5 AM CDT 12/18/2024 11:50 AM CDT Narrative SABRA ROGERS ([place]) - 12/18/2024 11:51 AM CDT Are special requirements needed? (All products are leukoreduced and CMV- safe)->No Michael Terry MD BLOOD BANK PRODUCT ORDERABLES Final Result SABRA SUE ([place]) 1 [facility] Department [place] [address] * (ABNORMAL) Differential, auto (12/18/2024 10:20 AM CDT) Neutrophil abs 1.27(L) 1.50 - 6.50 K/cumm [facility] ([place]) Comment:Testing performed by : [facility] [address], Medical Office [facility] [address], [place] [address] Imm gran abs 0.01 0.00 - 0.10 K/cumm [facility] ([place]) Comment:Testing performed by : [facility] [address], Medical Office [facility] [address], [place] [address] Lymphocyte abs 0.46(L) 0.80 - 3.30 K/cumm [facility] ([place]) Comment:Testing performed by : [facility] [address], Medical Office [facility] [address], [place] [address] Monocyte abs 0.15(L) 0.20 - 0.80 K/cumm [facility] ([place]) Comment:Testing performed by : [facility] [address], Medical Office [facility] [address], [place] [address] Eosinophil abs 0.02 0.00 - 0.50 K/cumm [facility] ([place]) Comment:Testing performed by : [facility] [address], Medical Office [facility] [address], [place] [address] Basophil abs 0.02 0.00 - 0.10 K/cumm [facility] ([place]) Comment:Testing performed by : [facility] [address], Medical Office [address], [place] [address] Neutrophil pct 65.9 % [facility] ([place]) Comment: Interpretive Data Percent cell count reference ranges are not reported, since discordance with absolute values may lead to misinterpretation of CBC data. Current Interpretive Data was last revised on 2022. Testing performed by: [facility] [address], Medical Office [address]g [address], [place] [address] Imm gran pct 0.5 % [facility] ([place]) Comment: Interpretive Data Percent cell count reference ranges are not reported, since discordance with absolute values may lead to misinterpretation of CBC data. Current Interpretive Data was last revised on 2022. Testing performed by: [facility] [address], Medical Office [address], [place] [address] Lymphocyte pct 23.8 % [facility] ([place]) Comment: Interpretive Data Percent cell count reference ranges are not reported, since discordance with absolute values may lead to misinterpretation of CBC data. Current Interpretive Data was last revised on 2022. Testing performed by: [facility] [address], Medical Office [address]g [address], [place] [address] Monocyte pct 7.8 % [facility] ([place]) Comment: Interpretive Data Percent cell count reference ranges are not reported, since discordance with absolute values may lead to misinterpretation of CBC data. Current Interpretive Data was last revised on 2022. Testing performed by: [facility] [address], Medical Office [facility] [address], [place] [address] Eosinophil pct 1.0 % [facility] ([place]) Comment: Interpretive Data Percent cell count reference ranges are not reported, since discordance with absolute values may lead to misinterpretation of CBC data. Current Interpretive Data was last revised on 2022. Testing performed by: [facility] [address], Medical Office [address], [place] [address] Basophil pct 1.0 % [facility] ([place]) Comment: Interpretive Data Percent cell count reference ranges are not reported, since discordance with absolute values may lead to misinterpretation of CBC data. Current Interpretive Data was last revised on 2022. Testing performed by: [facility] [address], Medical Office [facility] B [facility] [address], [place] [address] Blood 12/18/2024 10:2 0 AM CDT 12/18/2024 10:30 AM CDT us Chalino Chapa MD LAB BLOOD ORDERABLES Aylin tano Result [facility] ([place]) 1 [facility] Department [place] [address] * (ABNORMAL) CBC with auto differential (12/18/2024 10:20 AM CDT) WBC 1.93(L) 3.80 - 9.90 K/cumm [facility] ([place]) Comment:Testing performed by : [facility] [address], Medical Office [facility] B [facility] [address], [place] [address] Hgb 6.7(L) 11.9 - 15.5 g/dL [facility] ([place]) Comment:Testing performed by : [facility] [address], Medical Office [facility] B [facility] [address], [place] [address] Hct 20.7(L) 35.6 - 45.5 % [facility] ([place]) Comment:Testing performed by : [facility] [address], Medical Office [facility] B [facility] [address], [place] [address] Plt 152 150 - 400 K/cumm [facility] ([place]) Comment:Testing performed by : [facility] [address], Medical Office [facility] B [facility] [address], [place] [address] MPV 11.1 9.1 - 12.3 fL [facility] ([place]) Comment:Testing performed by : [facility] [address], Medical Office [facility] B [facility] [address], [place] [address] RBC 1.70(L) 3.90 - 5.20 M/cumm [facility] ([place]) Comment:Testing performed by : [facility] [address], Medical Office [facility] [address], [place] [address] MCV 121.8(H) 81.3 - 96.4 fL SABRA ROGERS ([place]) Comment:Testing performed by : [facility] [address], Medical Office [address], [place] [address] MCH 39.4(H) 27.1 - 33.3 pg SABRA ROGERS ([place]) Comment:Testing performed by : [facility] [address], Medical Office [address], [place] [address] MCHC 32.4 32.3 - 35.7 g/dL [facility] ([place]) Comment:Testing performed by : [facility] [address], Medical Office [address], [place] [address] RDW CV 20.7(H) 11.1 - 14.9 % SABRA ROGERS ([place]) Comment:Testing performed by : [facility] [address], Medical Office [address], [place] [address] RDW SD 91.4(H) 35.7 - 48.1 fL SABRA ROGERS ([place]) Comment:Testing performed by : [facility] [address], Medical Office [address], [place] [address] Blood 12/18/2024 10:2 0 AM CDT 12/18/2024 10:30 AM CDT Narrative SABRA ROGERS ([place]) - 12/18/2024 10:33 AM CDT Cbc 12/10, 12/17, 12/24, AND 12/[address] Chapa Chalino Chapa MD LAB BLOOD ORDERABLES Aylin l Result SABRA ROGERS ([place]) 1 [facility] Department [place] [address] * ABO/Rh (12/18/2024 10:20 AM CDT) ABO/Rh O Positive Comment:Testing performed by : [facility], [facility], [place], [address] Blood 12/18/2024 10:2 0 AM CDT 12/18/2024 11:04 AM CDT [facility]ative [facility] - 12/18/2024 11:45 AM CDT Has the patient had Daratumumab or Isatuximab in the past 6 months?->Unknown Milla Armenta RADIO DIRECTOR LAB BLOOD BANK TEST ORDERA BLES Final Result Performing Organization Address City/[facility]/ZIP Co de Phone Number [facility] 1 [facility] [place] [place] [address] * Crossmatch (12/18/2024 10:20 AM CDT) Crossmatch Compatible SABRA Silva ([place]) Unit number for crossmatch [id number] SABRA [facility] ([place]) Blood 12/18/2024 10:2 0 AM CDT 12/18/2024 11:04 AM CDT Chalino Chapa MD LAB BLOOD BANK TEST ORDER LAITH Final Result Performing Organization Address [facility] Co de Phone Number [facility] 1 [facility] [place] [address] * Antibody screen (12/18/2024 10:20 AM CDT) Rivera, indirect, Gel Interpretation Negative ABSC Comment:Testing performed by : [facility], [facility], [place], [address] Blood 12/18/2024 10:2 0 AM CDT 12/18/2024 11:04 AM CDT Narrative [facility] ([place]) - 12/18/2024 11:45 AM CDT Has the patient had Daratumumab or Isatuximab in the past 6 months?->Unknown Milla Armenta NP LAB BLOOD BANK TEST ORDERA BLES Final Result Performing Organization Address City/[facility]/ZIP Co de Phone Number [facility] ([place]) 1 [facility] [place] [address] * eGFR (12/03/2024 8:30 AM CDT) eGFR [...] was last reviewed 2021. Testing performed by: [place], [address] Blood 12/03/2024 8:30 AM CDT 12/03/2024 8:42 AM CDT us Chalino Chapa MD LAB BLOOD ORDERABLES Aylin l Result SABRA [facility] ([place]) 1 [facility] Department [place] [address] * (ABNORMAL) Differential, auto (12/03/2024 8:30 AM CDT) Neutrophil abs 0.88(L) 1.50 - 6.50 K/cumm Comment:Testing performed by : [facility], [place], [address] Imm gran abs 0.02 0.00 - 0.10 K/cumm SABRA ROGERS ([place]) Comment:Testing performed by : [facility], [place], [address] Lymphocyte abs 0.52(L) 0.80 - 3.30 K/cumm SABRA ROGERS ([place]) Comment:Testing performed by : [facility], [facility], [place], [address] Monocyte abs 0.12(L) 0.20 - 0.80 K/cumm [facility] ([place]) Comment:Testing performed by : [facility], [facility], [place], [address] Eosinophil abs 0.03 0.00 - 0.50 K/cumm [facility] ([place]) Comment:Testing performed by : [facility], [facility], [place], [address] Basophil abs 0.01 0.00 - 0.10 K/cumm [facility] ([place]) Comment:Testing performed by : [place], [address] Neutrophil pct 55.7 % [facility] ([place]) Comment: Interpretive Data Percent cell count reference ranges are not reported, since discordance with absolute values may lead to misinterpretation of CBC data. Current Interpretive Data was last revised on 2017. Testing performed by: [place], [address] Imm gran pct 1.3 % [facility] ([place]) Comment: Interpretive Data Percent cell count reference ranges are not reported, since discordance with absolute values may lead to misinterpretation of CBC data. Current Interpretive Data was last revised on 2017. Testing performed by: [facility], [place], [address] Lymphocyte pct 32.9 % [facility] ([place]) Comment: Interpretive Data Percent cell count reference ranges are not reported, since discordance with absolute values may lead to misinterpretation of CBC data. Current Interpretive Data was last revised on 2017. Testing performed by: [place], [address] Monocyte pct 7.6 % [facility] ([place]) Comment: Interpretive Data Percent cell count reference ranges are not reported, since discordance with absolute values may lead to misinterpretation of CBC data. Current Interpretive Data was last revised on 2017. Testing performed by: [facility], [place], [address] Eosinophil pct 1.9 % [facility] ([place]) Comment: Interpretive Data Percent cell count reference ranges are not reported, since discordance with absolute values may lead to misinterpretation of CBC data. Current Interpretive Data was last revised on 2017. Testing performed by: [facility], [place], [address] Basophil pct 0.6 % [facility] ([place]) Comment: Interpretive Data Percent cell count reference ranges are not reported, since discordance with absolute values may lead to misinterpretation of CBC data. Current Interpretive Data was last revised on 2017. Testing performed by: [facility], [place], [address] Blood 12/03/2024 8:30 AM CDT 12/03/2024 8:58 AM CDT us Chalino Chapa MD LAB BLOOD ORDERABLES Aylin freedman Result [facility] ([place]) 1 [facility] Department [place] [address] * (ABNORMAL) CBC with auto differential (12/03/2024 8:30 AM CDT) WBC 1.58(L) 3.80 - 9.90 K/cumm Comment:Testing performed by : [place], [address] Hgb 8.1(L) 11.9 - 15.5 g/dL [facility] ([place]) Comment:Testing performed by : [facility], [place], [address] Hct 24.2(L) 35.6 - 45.5 % [facility] ([place]) Comment:Testing performed by : [place], [address] Plt 156 150 - 400 K/cumm [facility] ([place]) Comment:Testing performed by : [place], [address] MPV 11.6 9.1 - 12.3 fL [facility] ([place]) Comment:Testing performed by : [facility], [place], [address] RBC 2.11(L) 3.90 - 5.20 M/cumm [facility] ([place]) Comment:Testing performed by : [place], [address] MCV 114.7(H) 81.3 - 96.4 fL [facility] ([place]) Comment:Testing performed by : [place], [address] MCH 38.4(H) 27.1 - 33.3 pg [facility] ([place]) Comment:Testing performed by : [place], MCHC 33.5 32.3 - 35.7 g/dL [facility] ([place]) Comment:Testing performed by : [facility], [place], R[place] CV 23.4(H) 11.1 - 14.9 % [facility] ([place]) Comment:Testing performed by : [facility], [place], [place] SD 94.7(H) 35.7 - 48.1 fL [facility] ([place]) Comment:Testing performed by : [facility], [place], [address] NRBC abs 0.00 0.00 - 0.01 K/cumm [facility] ([place]) Comment:Testing performed by : [place], [address] Morphologic Screen Results confirmed by manual morphology review. [facility] ([place]) Comment:Testing performed by : [facility], [place], [address] Blood 12/03/2024 8:30 AM CDT 12/03/2024 8:58 AM CDT us Chalino Chapa MD LAB BLOOD ORDERABLES Aylin freedman Result [facility] ([place]) 1 [facility] Department [place] [address] * (ABNORMAL) Comprehensive metabolic panel (12/03/2024 8:30 AM CDT) Sodium 140 135 - 145 mmol/L [facility] ([place]) Potassium, pl 4.2 3.3 - 4.9 mmol/L [facility] ([place]) Chloride 99 97 - 110 [...] BLOOD ORDERABLES Aylin freedman Result SABRA ROGERS ([place]) 1 [facility] Department [place] [address] * (ABNORMAL) Blood smear review (11/29/2024 8:25 AM CDT) RBC morphology Consistent with RBC Indicies Comment:Testing performed by : [facility], [place], [address] Anisocytosis Moderate(A) [facility] R [facility] ([place]) Comment:Testing performed by : [facility], [place], [address] Microcytes 3-7/HPF(A) SABRA Silva ([place]) Comment:Testing performed by : [facility], [place], [address] Macrocytes 3-7/HPF(A) SABRA A [facility] ([place]) Comment:Testing performed by : [facility], [place], [address] Elliptocytes 3-7/HPF(A) [facility] ([place]) Comment:Testing performed by : [facility], [place], [address] Teardrop cells 3-7/HPF(A) [facility] ER [facility] ([place]) Comment:Testing performed by : [facility], [place], [address] Platelet estimate Adequate [facility] ([place]) Comment:Testing performed by : [facility], [place], [address] Blood 11/29/2024 8:25 AM CDT 11/29/2024 8:43 AM CDT us Chalino Chapa MD LAB BLOOD ORDERABLES Aylin l Result SABRA ROGERS ([place]) 1 [facility] Department [place] [address] * (ABNORMAL) Differential, auto (11/29/2024 8:25 AM CDT) Neutrophil abs 1.31(L) 1.50 - 6.50 K/cumm Comment:Testing performed by : [facility], [place], [address] Imm gran abs 0.01 0.00 - 0.10 K/cumm [facility] ([place]) Comment:Testing performed by : [facility], [place], [address] Lymphocyte abs 0.84 0.80 - 3.30 K/cumm [facility] ([place]) Comment:Testing performed by : [facility], [place], [address] Monocyte abs 0.18(L) 0.20 - 0.80 K/cumm [facility] ([place]) Comment:Testing performed by : [facility], [place], [address] Eosinophil abs 0.03 0.00 - 0.50 K/cumm [facility] ([place]) Comment:Testing performed by : [facility], [place], [address] Basophil abs 0.01 0.00 - 0.10 K/cumm [facility] ([place]) Comment:Testing performed by : [facility], [place], [address] Neutrophil pct 55.0 % [facility] ([place]) Comment: Interpretive Data Percent cell count reference ranges are not reported, since discordance with absolute values may lead to misinterpretation of CBC data. Current Interpretive Data was last revised on 2017. Testing performed by: [place], [address] Imm gran pct 0.4 % [facility] ([place]) Comment: Interpretive Data Percent cell count reference ranges are not reported, since discordance with absolute values may lead to misinterpretation of CBC data. Current Interpretive Data was last revised on 2017. Testing performed by: [place], [address] Lymphocyte pct 35.3 % [facility] ([place]) Comment: Interpretive Data Percent cell count reference ranges are not reported, since discordance with absolute values may lead to misinterpretation of CBC data. Current Interpretive Data was last revised on 2017. Testing performed by: [place], [address] Monocyte pct 7.6 % [facility] ([place]) Comment: Interpretive Data Percent cell count reference ranges are not reported, since discordance with absolute values may lead to misinterpretation of CBC data. Current Interpretive Data was last revised on 2017. Testing performed by: [facility], [place], [address] Eosinophil pct 1.3 % [facility] ([place]) Comment: Interpretive Data Percent cell count reference ranges are not reported, since discordance with absolute values may lead to misinterpretation of CBC data. Current Interpretive Data was last revised on 2017. Testing performed by: [facility], [place], [address] Basophil pct 0.4 % [facility] ([place]) Comment: Interpretive Data Percent cell count reference ranges are not reported, since discordance with absolute values may lead to misinterpretation of CBC data. Current Interpretive Data was last revised on 2017. Testing performed by: [facility], [place], [address] Blood 11/29/2024 8:25 AM CDT 11/29/2024 8:43 AM CDT us Chalino Chapa MD LAB BLOOD ORDERABLES Aylin freedman Result [facility] ([place]) 1 [facility] Department [place] [address] * (ABNORMAL) CBC with auto differential (11/29/2024 8:25 AM CDT) WBC 2.38(L) 3.80 - 9.90 K/cumm Comment:Testing performed by : [place], [address] Hgb 7.9(L) 11.9 - 15.5 g/dL [facility] ([place]) Comment:Testing performed by : [place], [address] Hct 24.1(L) 35.6 - 45.5 % [facility] ([place]) Comment:Testing performed by : [facility], [place], [address] Plt 158 150 - 400 K/cumm [facility] ([place]) Comment:Testing performed by : [place], [address] MPV 11.1 9.1 - 12.3 fL [facility]A [facility] ([place]) Comment:Testing performed by : [place], [address] RBC 2.11(L) 3.90 - 5.20 M/cumm [facility] ([place]) Comment:Testing performed by : [facility], [place], [address] MCV 114.2(H) 81.3 - 96.4 fL [facility] ([place]) Comment:Testing performed by : [place], [address] MCH 37.4(H) 27.1 - 33.3 pg [facility] ([place]) Comment:Testing performed by : [facility], [place], [address] MCHC 32.8 32.3 - 35.7 g/dL [facility] ([place]) Comment:Testing performed by : [facility], [place], [address] RDW CV Not Measured 11.1 - 14.9 % [facility] ([place]) Comment:Testing performed by : [facility], [place], [address] RDW SD Not Measured 35.7 - 48.1 fL [facility] ([place]) Comment:Testing performed by : [place], [address] NRBC abs 0.00 0.00 - 0.01 K/cumm [facility] ([place]) Comment:Testing performed by : [facility], [place], [address] Blood 11/29/2024 8:25 AM CDT 11/29/2024 8:43 AM CDT us Chalino Chapa MD LAB BLOOD ORDERABLES Aylin freedman Result SABRA ROGERS ([place]) [address] [place] [address] Department [place] [address] * ABO/Rh (11/29/2024 8:25 AM CDT) ABO/Rh O Positive Comment:Testing performed by : [place], [address] Blood 11/29/2024 8:25 AM CDT 11/29/2024 8:40 AM CDT Narrative [facility] ([place]) - 11/29/2024 9:17 AM CDT Has the patient had Daratumumab or Isatuximab in the past 6 months?->No Chalino Chapa MD LAB BLOOD BANK TEST ORDER LAITH Final Result AMYPAOLA ROGERS ([place]) 1 [facility] Department [place] [address] * Antibody screen (11/29/2024 8:25 AM CDT) Rivera, indirect, Gel Interpretation Negative ABSC Comment:Testing performed by : [place], [address] Blood 11/29/2024 8:25 AM CDT 11/29/2024 8:40 AM CDT Narrative SABRA ROGERS ([place]) - 11/29/2024 9:17 AM CDT Has the patient had Daratumumab or Isatuximab in the past 6 months?->No Chalino Chapa MD LAB BLOOD BANK TEST ORDER LAITH Final Result Performing Organization Address City/[facility] Co de Phone Number SABRA SUE ([place]) 1 [facility] Department [place] [address] * (ABNORMAL) CBC with auto differential (11/26/2024 9:50 AM CDT) Pathologist [facility] WBC 1.44(L) 3.80 - 9.90 K/cumm Comment:Testing performed by : [place], [address] Hgb 7.7(L) 11.9 - 15.5 g/dL [facility] ([place]) Comment:Testing performed by : [place], [address] Hct 24.4(L) 35.6 - 45.5 % [facility] ([place]) Comment:Testing performed by : [place], [address] Plt 146(L) 150 - 400 K/cumm [facility] ([place]) Comment:Testing performed by : [place], [address] MPV 11.0 9.1 - 12.3 fL SABRA ROGERS ([place]) Comment:Testing performed by : [facility], [place], [address] RBC 2.13(L) 3.90 - 5.20 M/cumm [facility] ([place]) Comment:Testing performed by : [facility], [place], MCV 114.6(H) 81.3 - 96.4 fL [facility] ([place]) Comment:Testing performed by : [facility], [place], MCH 36.2(H) 27.1 - 33.3 pg [facility] ([place]) Comment:Testing performed by : [place], MCHC 31.6(L) 32.3 - 35.7 g/dL [facility] ([place]) Comment:Testing performed by : [facility], [place], RDW CV 24.3(H) 11.1 - 14.9 % [facility] ([place]) Comment:Testing performed by : [facility], [place], RDW SD 97.2(H) 35.7 - 48.1 fL [facility] ([place]) Comment:Testing performed by : [facility], [place], NRBC abs 0.00 0.00 - 0.01 K/cumm [facility] ([place]) Comment:Testing performed by : [facility], [place], Blood 11/26/2024 9:50 AM CDT 11/26/2024 10:13 AM CDT us Chalino Chapa MD LAB BLOOD ORDERABLES Aylin l Result SABRA ROGERS ([place]) [address] [place] [address] Department [place] [address] * (ABNORMAL) Manual Differential (11/26/2024 9:50 AM CDT) Differential Manual Comment:Testing performed by : [facility], [place], [address] Cells Counted 100 [facility] ([place]) Comment:Testing performed by : [facility], [place], [address] Neutrophil abs 0.81(L) 1.50 - 6.50 K/cumm [facility] ([place]) Comment:Testing performed by : [facility], [place], [address] Imm gran abs 0.03 0.00 - 0.10 K/cumm [facility] ([place]) Comment:Testing performed by : [facility], [place], [address] Lymphocyte abs 0.46(L) 0.80 - 3.30 K/cumm [facility] ([place]) Comment:Testing performed by : [facility], [place], [address] Monocyte abs 0.04(L) 0.20 - 0.80 K/cumm [facility] ([place]) Comment:Testing performed by : [facility], [place], [address] Eosinophil abs 0.10 0.00 - 0.50 K/cumm [facility] ([place]) Comment:Testing performed by : [facility], [place], [address] Neutrophil pct 54.0 % [facility] ([place]) Comment: Interpretive Data Percent cell count reference ranges are not reported, since discordance with absolute values may lead to misinterpretation of CBC data. Current Interpretive Data was last revised on 2017. Testing performed by: [facility], [place], [address] Lymphocyte pct 32.0 % [facility] ([place]) Comment: Interpretive Data Percent cell count reference ranges are not reported, since discordance with absolute values may lead to misinterpretation of CBC data. Current Interpretive Data was last revised on 2017. Testing performed by: [facility], [place], [address] Monocyte pct 3.0 % [facility] ([place]) Comment: Interpretive Data Percent cell count reference ranges are not reported, since discordance with absolute values may lead to misinterpretation of CBC data. Current Interpretive Data was last revised on 2017. Testing performed by: [facility], [place], [address] Eosinophil pct 7.0 % [facility] ([place]) Comment: Interpretive Data Percent cell count reference ranges are not reported, since discordance with absolute values may lead to misinterpretation of CBC data. Current Interpretive Data was last revised on 2017. Testing performed by: [facility], [place], [address] Band Neutrophil pct 2.0 0.0 - 5.0 % [facility] ([place]) Comment:Testing performed by : [facility], [place], [address] Myelocyte pct 2.0(H) 0.0 - 0.0 % [facility] ([place]) Comment:Testing performed by : [facility], [place], [address] RBC morphology Consistent with RBC Indicies [facility] ([place]) Comment:Testing performed by : [facility], [place], [address] Platelet estimate Automated Count Confirmed SABRA ROGERS ([place]) Comment:Testing performed by : [facility], [place], [address] Blood 11/26/2024 9:50 AM CDT 11/26/2024 10:13 AM CDT Chalino Chapa MD LAB BLOOD ORDERABLES Aylin freedman Result SABRA ROGERS ([place]) 1 [facility] Department [place] [address] * (ABNORMAL) Differential, auto (11/19/2024 10:10 AM CDT) Neutrophil abs 1.05(L) 1.50 - 6.50 K/cumm [facility] ([place]) Comment:Testing performed by : [facility] [address], Medical [address], [place] [address] Imm gran abs 0.00 0.00 - 0.10 K/cumm [facility] ([place]) Comment:Testing performed by : [facility] [address], Medical [address], [place] [address] Lymphocyte abs 0.50(L) 0.80 - 3.30 K/cumm [facility] ([place]) Comment:Testing performed by : [facility] [address], Medical Office [address], [place] [address] Monocyte abs 0.14(L) 0.20 - 0.80 K/cumm [facility] ([place]) Comment:Testing performed by : [facility] [address], Medical Office [address], [place] [address] Eosinophil abs 0.02 0.00 - 0.50 K/cumm [facility] ([place]) Comment:Testing performed by : [facility] [address], Medical Office [address], [place] [address] Basophil abs 0.02 0.00 - 0.10 K/cumm [facility] ([place]) Comment:Testing performed by : [facility] [address], Medical Office [address], [place] [address] Neutrophil pct 60.6 % [facility] ([place]) Comment: Interpretive Data Percent cell count reference ranges are not reported, since discordance with absolute values may lead to misinterpretation of CBC data. Current Interpretive Data was last revised on 2022. Testing performed by: [facility] [address], Medical Office [facility] [address], [place] [address] Imm gran pct 0.0 % [facility] ([place]) Comment: Interpretive Data Percent cell count reference ranges are not reported, since discordance with absolute values may lead to misinterpretation of CBC data. Current Interpretive Data was last revised on 2022. Testing performed by: [facility] [address], Medical Office [facility] [address], [place] [address] Lymphocyte pct 28.9 % [facility] ([place]) Comment: Interpretive Data Percent cell count reference ranges are not reported, since discordance with absolute values may lead to misinterpretation of CBC data. Current Interpretive Data was last revised on 2022. Testing performed by: [facility] [address], Medical Office [address], [place] [address] Monocyte pct 8.1 % [facility] ([place]) Comment: Interpretive Data Percent cell count reference ranges are not reported, since discordance with absolute values may lead to misinterpretation of CBC data. Current Interpretive Data was last revised on 2022. Testing performed by: [facility] [address], Medical Office [facility] [address], [place] [address] Eosinophil pct 1.2 % EMELINA ROGERS ([place]) Comment: Interpretive Data Percent cell count reference ranges are not reported, since discordance with absolute values may lead to misinterpretation of CBC data. Current Interpretive Data was last revised on 2022. Testing performed by: [facility] [address], Medical Office [facility] [address], [place] [address] Basophil pct 1.2 % SABRA ROGERS ([place]) Comment: Interpretive Data Percent cell count reference ranges are not reported, since discordance with absolute values may lead to misinterpretation of CBC data. Current Interpretive Data was last revised on 2022. Testing performed by: [facility] [address], Medical Office [facility] [address] [facility] [address], [place] [address] Blood 11/19/2024 10:1 0 AM CDT 11/19/2024 10:10 AM CDT us Chalino Chapa MD LAB BLOOD ORDERABLES Aylin l Result SABRA ROGERS ([place]) 1 [facility] Department [place] [address] * (ABNORMAL) CBC with auto differential (11/19/2024 10:10 AM CDT) WBC 1.73(L) 3.80 - 9.90 K/cumm SABRA ROGERS ([place]) Comment:Testing performed by : [facility] [address], Medical Office [facility] [address], [place] [address] Hgb 8.4(L) 11.9 - 15.5 g/dL SABRA ROGERS ([place]) Comment:Testing performed by : [facility] [address], Medical Office [facility] [address], [place] [address] Hct 25.6(L) 35.6 - 45.5 % SABRA ROGERS ([place]) Comment:Testing performed by : [facility] [address], Medical Office [facility] [address], [place] [address] Plt 119(L) 150 - 400 K/cumm [facility] ([place]) Comment:Testing performed by : [facility] [address], Medical Office [facility] [address], [place] [address] MPV 10.6 9.1 - 12.3 fL [facility] ([place]) Comment:Testing performed by : [facility] [address], Medical Office [facility] B [facility] [address], [place] [address] RBC 2.29(L) 3.90 - 5.20 M/cumm [facility] ([place]) Comment:Testing performed by : [facility] [address], Medical Office [facility] [address] [facility] [address], [place] [address] MCV 111.8(H) 81.3 - 96.4 fL [facility] ([place]) Comment:Testing performed by : [facility] [address], Medical Office [facility] [address] [facility] [address], [place] [address] MCH 36.7(H) 27.1 - 33.3 pg [facility] ([place]) Comment:Testing performed by : [facility] [address], Medical Office [facility] B [facility] [address], [place] [address] MCHC 32.8 32.3 - 35.7 g/dL [facility] ([place]) Comment:Testing performed by : [facility] [address], Medical Office [facility] [address] [facility] [address], [place] [address] RDW CV 24.9(H) 11.1 - 14.9 % [facility] ([place]) Comment:Testing performed by : [facility] [address], Medical Office [facility] [address] [facility] [address], [place] [address] RDW SD 96.8(H) 35.7 - 48.1 fL [facility] ([place]) Comment:Testing performed by : [facility] [address], Medical Office [facility] [address], [place] [address] Blood 11/19/2024 10:1 0 AM CDT 11/19/2024 10:10 AM CDT Narrative [facility] ([place]) - 11/19/2024 10:13 AM CDT 11/19, 11/26, 12/03 us Chalino Chapa MD LAB BLOOD ORDERABLES Aylin l Result Performing Organization Address City/[facility]/ZIP Co de Phone Number SABRA ROGERS ([place]) 1 [facility] [place] [address] * Transfuse RBC (11/14/2024 1:18 PM CDT) Blood us Chalino Chapa MD BLOOD TRANSFUSION ORDERAB LES Final Result * Prepare RBC: 1 Units (11/14/2024 11:24 AM CDT) Units requested 1 Comment:Testing performed by : [facility], [place], [address] Units requested Ready EMMY ROGESR ([place]) Comment:Testing performed by : [place], [address] Blood 11/14/2024 11:2 4 AM CDT 11/14/2024 11:24 AM CDT Narrative SABRA ROGERS ([place]) - 11/14/2024 11:24 AM CDT 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 (All products are leukoreduced and CMV- safe)->No Chalino Chapa MD BLOOD BANK PRODUCT ORDERA BLES Final Result Performing Organization Address City/[facility]/ZIP Co de Phone Number SABRA ROGERS ([place]) 1 [facility] [place] [address] * Prepare RBC (11/14/2024 11:22 AM CDT) Unit Number [id number] Product code [id number] SABRA ROGERS ([place]) Blood Expiration Date [id number] [facility] ([place]) Product Blood Type (for scanning) 5100 [facility] ([place]) Product Blood Type OPOS SABRA ROGERS ([place]) Dispense Status DISPENSED SABRA ROGERS ([place]) us Chalino Chapa MD BLOOD BANK PRODUCT ORDERA BLES Final Result SABRA [facility] ([place]) [address] [place] [address] Department [place] [address] * (ABNORMAL) Differential, auto (11/14/2024 9:50 AM CDT) Neutrophil abs 0.90(L) 1.50 - 6.50 K/cumm Comment:Testing performed by : [facility], [place], [address] Imm gran abs 0.01 0.00 - 0.10 K/cumm [facility] ([place]) Comment:Testing performed by : [facility], [place], [address] Lymphocyte abs 0.46(L) 0.80 - 3.30 K/cumm [facility] ([place]) Comment:Testing performed by : [facility], [place], [address] Monocyte abs 0.18(L) 0.20 - 0.80 K/cumm [facility] ([place]) Comment:Testing performed by : [place], [address] Eosinophil abs 0.03 0.00 - 0.50 K/cumm [facility] ([place]) Comment:Testing performed by : [facility], [place], [address] Basophil abs 0.01 0.00 - 0.10 K/cumm [facility] ([place]) Comment:Testing performed by : [place], [address] Neutrophil pct 56.7 % [facility] ([place]) Comment: Interpretive Data Percent cell count reference ranges are not reported, since discordance with absolute values may lead to misinterpretation of CBC data. Current Interpretive Data was last revised on 2017. Testing performed by: [place], [address] Imm gran pct 0.6 % [facility] ([place]) Comment: Interpretive Data Percent cell count reference ranges are not reported, since discordance with absolute values may lead to misinterpretation of CBC data. Current Interpretive Data was last revised on 2017. Testing performed by: [facility], [place], [address] Lymphocyte pct 28.9 % [facility] ([place]) Comment: Interpretive Data Percent cell count reference ranges are not reported, since discordance with absolute values may lead to misinterpretation of CBC data. Current Interpretive Data was last revised on 2017. Testing performed by: [place], [address] Monocyte pct 11.3 % [facility] ([place]) Comment: Interpretive Data Percent cell count reference ranges are not reported, since discordance with absolute values may lead to misinterpretation of CBC data. Current Interpretive Data was last revised on 2017. Testing performed by: [place], [address] Eosinophil pct 1.9 % [facility] ([place]) Comment: Interpretive Data Percent cell count reference ranges are not reported, since discordance with absolute values may lead to misinterpretation of CBC data. Current Interpretive Data was last revised on 2017. Testing performed by: [facility], [place], [address] Basophil pct 0.6 % [facility] ([place]) Comment: Interpretive Data Percent cell count reference ranges are not reported, since discordance with absolute values may lead to misinterpretation of CBC data. Current Interpretive Data was last revised on 2017. Testing performed by: [facility], [place], [address] Blood 11/14/2024 9:50 AM CDT 11/14/2024 10:09 AM CDT us Chalino Chapa MD LAB BLOOD ORDERABLES Aylin l Result SABRA SUE ([place]) [address] [place] [address] Department [place] [address] * (ABNORMAL) CBC with auto differential (11/14/2024 9:50 AM CDT) WBC 1.59(L) 3.80 - 9.90 K/cumm Comment:Testing performed by : [facility] [place], [place], Hgb 7.2(L) 11.9 - 15.5 g/dL [facility] ([place]) Comment:Testing performed by : [facility], [place], [place], Hct 22.7(L) 35.6 - 45.5 % [facility] ([place]) Comment:Testing performed by : [facility], [place], [place], Plt 131(L) 150 - 400 K/cumm [facility] ([place]) Comment:Testing performed by : [facility], [place], MPV 11.3 9.1 - 12.3 fL [facility] ([place]) Comment:Testing performed by : [facility], [place], RBC 2.05(L) 3.90 - 5.20 M/cumm [facility] ([place]) Comment:Testing performed by : [facility], [place], MCV 110.7(H) 81.3 - 96.4 fL [facility] ([place]) Comment:Testing performed by : [facility], [place], MCH 35.1(H) 27.1 - 33.3 pg [facility] ([place]) Comment:Testing performed by : [facility], [place], [place], MCHC 31.7(L) 32.3 - 35.7 g/dL [facility] ([place]) Comment:Testing performed by : [facility], [place], [place], RDW CV Not Measured 11.1 - 14.9 % [facility] ([place]) Comment:Testing performed by : [facility], [place], [place], RDW SD Not Measured 35.7 - 48.1 fL [facility] ([place]) Comment:Testing performed by : [facility], [place], [place], Morphologic Screen Results confirmed by manual morphology review. [facility] ([place]) Comment:Testing performed by : [facility], [place], [place], Blood 11/14/2024 9:50 AM CDT 11/14/2024 10:09 AM CDT Chalino Chapa MD LAB BLOOD ORDERABLES Aylin l Result S[facility]RA [facility] ([place]) 1 [facility] Department [place] [address] * ABO/Rh (11/14/2024 9:50 AM CDT) ABO/Rh O Positive Comment:Testing performed by : [facility], One [facility], [place], [address] Blood 11/14/2024 9:50 AM CDT 11/14/2024 10:12 AM CDT Narrative [facility] ([place] - 11/14/2024 10:58 AM CDT 11/19, 11/26, 12/03 Has the patient had Daratumumab or Isatuximab in the past 6 months?->Unknown us Chalino Chapa MD LAB BLOOD BANK TEST ORDER LAITH Final Result Performing Organization Address [facility] Co de Phone Number SABRA [facility] ([place]) 1 [facility] [place] [address] * Crossmatch (11/14/2024 9:50 AM CDT) Crossmatch Compatible SABRA Silva [facility]) Unit number for crossmatch [id number] [facility] ([place]) Blood 11/14/2024 9:50 AM CDT 11/14/2024 10:12 AM CDT Chalino Chapa MD LAB BLOOD BANK TEST ORDER LAITH Final Result [facility]ABRA [facility] ([place]) 1 [facility] [address] * Antibody screen (11/14/2024 9:50 AM CDT) Rivear, indirect, Gel Interpretation Negative ABSC Comment:Testing performed by : [facility], [place], [address] Blood 11/14/2024 9:50 AM CDT 11/14/2024 10:12 AM CDT Narrative [facility]RA [facility] ([place]) - 11/14/2024 10:58 AM CDT 11/19, 11/26, 12/03 Has the patient had Daratumumab or Isatuximab in the past 6 months?->Unknown us Chalino Chapa MD LAB BLOOD BANK TEST ORDER LAITH Final Result Performing Organization Address City/[facility] Co de Phone Number [facility] ([place]) [address] [place] [address] [place] [address] * (ABNORMAL) Erythropoietin (11/11/2024 11:30 AM CDT) Erythropoietin 781(H) 2.6 - 18.5 mIUnits/m L [facility] ref Lab Comment: Test Performed by: [facility] [address] [place] [address] Public Health Educator: Lloyd Olmstead Ph.D.; CLIA# [id number] Testing performed by: [place], [address] Blood 11/11/2024 11:3 0 AM CDT 11/11/2024 11:53 AM CDT Chalino Chapa MD LAB BLOOD ORDERABLES Aylin l Result Performing Organization Address City/[facility]/ZIP Co de Phone Number [facility] ([place]) 1 [facility] [place] [address] [facility] ref [facility] * ABO/Rh (11/11/2024 11:30 AM CDT) ABO/Rh O Positive Comment:Testing performed by : [facility], [place], [address] Blood 11/11/2024 11:3 0 AM CDT 11/11/2024 11:53 AM CDT Narrative [facility] ([place]) - 11/11/2024 12:32 PM CDT Has the patient had Daratumumab or Isatuximab in the past 6 months?->Unknown us Chalino Chapa MD LAB BLOOD BANK TEST ORDER LAITH Final Result [facility] ([place]) 1 [facility] [place] [address] * Antibody screen (11/11/2024 11:30 AM CDT) Rivera, indirect, Gel Interpretation Negative ABSC Comment:Testing performed by : [facility], One [facility], [place], [address] Blood 11/11/2024 11:3 0 AM CDT 11/11/2024 11:53 AM CDT Narrative [facility] ([place]) - 11/11/2024 12:32 PM CDT Has the patient had Daratumumab or Isatuximab in the past 6 months?->Unknown us Chalino Chapa MD LAB BLOOD BANK TEST ORDER LAITH Final Result Performing Organization Address [facility] Co de Phone Number [facility] ([place]) 1 [facility] [place] [address] * (ABNORMAL) Folate (11/11/2024 11:30 AM CDT) [facility] Folic acid 3.5(L) >=5.0 ng/mL [facility] ([place]) Blood 11/11/2024 11:3 0 AM CDT 11/11/2024 11:53 AM CDT Chalino Chapa MD LAB BLOOD ORDERABLES Aylin l Result [facility] ([place]) 1 [facility] [place] [address] * Vitamin B12 (11/11/2024 11:30 AM CDT) Vitamin B12 1,022 230 - 1,250 pg/mL [facility] ([place]) Blood 11/11/2024 11:3 0 AM CDT 11/11/2024 11:53 AM CDT us Chalino Chapa MD LAB BLOOD ORDERABLES Aylin freedman Result [facility] ([place]) 1 [facility] Department [place] [address] * (ABNORMAL) Differential, auto (11/11/2024 10:45 AM CDT) Neutrophil abs 1.08(L) 1.50 - 6.50 K/cumm [facility] ([place]) Comment:Testing performed by : [facility] [address], Medical Office [facility] [address], [place] [address] Imm gran abs 0.02 0.00 - 0.10 K/cumm [facility] ([place]) Comment:Testing performed by : [facility] [address], Medical Office [facility] [address], [place] [address] Lymphocyte abs 0.55(L) 0.80 - 3.30 K/cumm [facility] ([place]) Comment:Testing performed by : [facility] [address], Medical Office [facility] [address], [place] [address] Monocyte abs 0.17(L) 0.20 - 0.80 K/cumm [facility] ([place]) Comment:Testing performed by : [facility] [address], Medical Office [facility] [address], [place] [address] Eosinophil abs 0.04 0.00 - 0.50 K/cumm [facility] ([place]) Comment:Testing performed by : [facility] [address], Medical Office [facility] [address], [place] [address] Basophil abs 0.01 0.00 - 0.10 K/cumm [facility] ([place]) Comment:Testing performed by : [facility] [address], Medical Office [facility] [address], [place] [address] Neutrophil pct 57.8 % [facility] ([place]) Comment: Interpretive Data Percent cell count reference ranges are not reported, since discordance with absolute values may lead to misinterpretation of CBC data. Current Interpretive Data was last revised on 2022. Testing performed by: [facility] [address], Medical Office [address], [place] [address] Imm gran pct 1.1 % [facility] ([place]) Comment: Interpretive Data Percent cell count reference ranges are not reported, since discordance with absolute values may lead to misinterpretation of CBC data. Current Interpretive Data was last revised on 2022. Testing performed by: [facility] [address], Medical Office [address], [place] [address] Lymphocyte pct 29.4 % [facility] ([place]) Comment: Interpretive Data Percent cell count reference ranges are not reported, since discordance with absolute values may lead to misinterpretation of CBC data. Current Interpretive Data was last revised on 2022. Testing performed by: [facility] [address], Medical Office [address], [place] [address] Monocyte pct 9.1 % [facility] ([place]) Comment: Interpretive Data Percent cell count reference ranges are not reported, since discordance with absolute values may lead to misinterpretation of CBC data. Current Interpretive Data was last revised on 2022. Testing performed by: [facility] [address], Medical Office [address], [place] [address] Eosinophil pct 2.1 % [facility] ([place]) Comment: Interpretive Data Percent cell count reference ranges are not reported, since discordance with absolute values may lead to misinterpretation of CBC data. Current Interpretive Data was last revised on 2022. Testing performed by: [facility] [address], Medical Office [address], [place] [address] Basophil pct 0.5 % [facility] ([place]) Comment: Interpretive Data Percent cell count reference ranges are not reported, since discordance with absolute values may lead to misinterpretation of CBC data. Current Interpretive Data was last revised on 2022. Testing performed by: [facility] [address], Medical Office [address], [place] [address] Blood 11/11/2024 10:4 5 AM CDT 11/11/2024 11:00 AM CDT Milla Armenta RADIO DIRECTOR LAB BLOOD ORDERABLES Final Result [facility] ([place]) 1 [facility] Department [place] [address] * (ABNORMAL) CBC with auto differential (11/11/2024 10:45 AM CDT) WBC 1.87(L) 3.80 - 9.90 K/cumm [facility] ([place]) Comment:Testing performed by : [facility] [address], Medical Office [facility] B [facility] [address], [place] [address] Hgb 7.2(L) 11.9 - 15.5 g/dL [facility] ([place]) Comment:Testing performed by : [facility] [address], Medical Office [facility] [address], [place] [address] Hct 22.5(L) 35.6 - 45.5 % [facility] ([place]) Comment:Testing performed by : [facility] [address], Medical Office [facility] B [facility] [address], [place] [address] Plt 111(L) 150 - 400 K/cumm [facility] ([place]) Comment:Testing performed by : [facility] [address], Medical Office [facility] [address], [place] [address] MPV 11.0 9.1 - 12.3 fL [facility] ([place]) Comment:Testing performed by : [facility] [address], Medical Office [facility] B [facility] [address], [place] [address] RBC 2.03(L) 3.90 - 5.20 M/cumm [facility] ([place]) Comment:Testing performed by : [facility] [address], Medical Office [facility] B [facility] [address], [place] [address] MCV 110.8(H) 81.3 - 96.4 fL [facility] ([place]) Comment:Testing performed by : [facility] [address], Medical Office [facility] B [facility] [address], [place] [address] MCH 35.5(H) 27.1 - 33.3 pg [facility] ([place]) Comment:Testing performed by : [facility] [address], Medical Office [facility] [address], [place] [address] MCHC 32.0(L) 32.3 - 35.7 g/dL [facility] ([place]) Comment:Testing performed by : [facility] [address], Medical Office [facility] [address], [place] [address] RDW CV 26.2(H) 11.1 - 14.9 % [facility] ([place]) Comment:Testing performed by : [facility] [address], Medical Office [facility] [address], [place] [address] RDW SD 96.8(H) 35.7 - 48.1 fL [facility] ([place]) Comment:Testing performed by : [facility] [address], Medical Office [facility] [address], [place] [address] Blood 11/11/2024 10:4 5 AM CDT 11/11/2024 11:00 AM CDT Milla Armenta RADIO DIRECTOR LAB BLOOD ORDERABLES Final Result [facility] ([place]) 1 [facility] Department [place] [address] * eGFR (11/11/2024 8:11 AM CDT) eGFR [...] was last reviewed 2021. Testing performed by: [facility], [address] [facility], [place], [address] Blood 11/11/2024 8:11 AM CDT 11/11/2024 11:14 AM CDT us Chalino Chapa MD LAB BLOOD ORDERABLES Aylin freedman Result [facility] ([place]) 1 [facility] Department [place] [address] * (ABNORMAL) Comprehensive metabolic panel (11/11/2024 8:11 AM CDT) Sodium 138 135 - 145 mmol/L [facility] ([place]) Potassium, pl 3.9 3.3 - 4.9 mmol/L [facility] ([place]) Chloride 103 97 - 110 mmol/L [facility] ([place]) CO2 30 22 - 32 mmol/L [facility]) Anion gap 5 2 - 15 mmol/L [facility] ([place]) BUN 12 6 - 25 mg/dL [facility] ([place]) Creatinine 0.46(L) 0.60 - 1.10 mg/dL [facility] ([place]) Glucose 158 70 - 199 mg/dL [facility] ([place]) Comment: Interpretive Data Fasting glucose >/= [...] ORDERABLES Aylin freedman Result Performing Organization Address City/State/[facility] Co de Phone Number [facility] ([place]) 1 [facility] Department [place] [address] from Last 3 Months Insurance MEDICARE MEDICARE [facility] MEDICARE SUPPLEMENT [address] [place] [phone] MEDICARE [facility] MEDICARE SUPPLEMENT Advance Directives For more information, please contact: [phone] Documents on File Type Date Recorded Patient Digital Product Specialist Expl anation ADVANCE DIRECTIVE 12/20/2023 8:01 AM Power of [employer] * Full Code (Latest Code Status on File) Date Activated Date Inactivated Comments 09/28/2024 7:50 PM 10/07/2024 7:51 PM * Full Code Date Activated Date Inactivated Comments 12/11/2023 12:19 PM 12/19/2023 6:45 PM Care Teams Shield Operator Relationship Specialty Start Date End Date Bryan Davey DO PCP - General Internal Medicine 11/14/23 Prateek King MD [address] [place] [address] Consulting Physician Urology 10/07/24 Sherman Alvarez DO [address] [place] [address] Medical Oncologist/Mortgage Manager Hematology and Oncology 10/07/24
--- OUTSIDE RECORDS SUMMARY | 2025-01-23 14:16 | XMS_ITS | Encounter Summary ---
Author Organization [facility] Health Address [address] [place] [address] Care Team Providers Care Irrigator Name Role Phone Mervat Kelley LOCK TENDER-SEASONAL SALES ASSOCIATE Primary Care Provider + Encounter Details Date Type Department Care Team (Late st Contact Info) Description 10/06/2022 Lab Requisition [facility] - Pathology Lab [address] [place] [address] Jesus Louis MD [address] [address] Illness, unspecified Social History Tobacco [...] Report Bone Marrow Patholog y Report Case: [id number] Authorizing Provider: Jesus Louis MD Collected: 10/05/2022 09:15 AM Ordering Location: [facility] Pathology Lab Received: 10/06/2022 01:27 PM Pathologist: Linda Hauser MD Specimens: A) - Bone Marrow Clot, Fluoro-guided bone marrow aspiration B) - Bone Marrow Core, Fluoro-guided bone marrow core bx 10/07/2022 1:40 PM CDT [facility] PATH[facility] Final Diagnosis Bone [...] normal. Platelet morphology: normal. 10/07/2022 1:40 PM [facility] PATHOLOGY LAB Bone Marrow Aspirate The [...] Control is appropriately reactive. 10/07/2022 1:40 PM [facility] PATH[facility] Bone Marrow Core Biopsy [...] an increased number of early erythroid progenitors. [id number] demonstrates additional, more mature erythroid lineage cells, confirming erythroid hyperplasia. Myeloperoxidase is positive in relatively fewer numbers of myeloid precursors. CD3 and CD20 show a normal number and distribution of T-cells and B-cells, respectively. Reticulin staining shows no significant marrow fibrosis (MF-0), and trichrome staining shows no collagen deposition. 10/07/2022 1:40 PM [facility] PATH[facility] Flow Cytometry Summary Concurrent flow cytometry ([id number]) shows no evidence of non-Hodgkin lymphoma or high-grade myeloid neoplasm. 10/07/2022 1:40 PM [facility] PATH[facility] Clinical History 82 year old woman with macrocytic anemia. 10/07/2022 1:40 PM CDT [facility] Materials Received Received are 22 slides and 3 blocks (A1, A2; B1) labeled [id number] along with a copy of the outside pathology report. The materials originate from [facility], [address] [place] [address] [place] [id number]. All original materials are returned to the referring institution, along with a copy of our final report. 10/07/2022 1:40 PM CDT [facility] Pathologist Location at [facility] 10/07/2022 1:40 PM CDT [facility] Disclaimer The performance characteristics of all immunohistochemical and indirect immunofluorescence stains (if any) cited in this report were determined by the Histopathology Laboratory of [facility]. Some of these tests were developed [...] attending (teaching) pathologist. 10/07/2022 1:40 PM CDT [facility] Embedded Images 10/07/2022 1:40 PM CDT [facility] Pathology/Cytology BONE MARROW SPECIMEN / Unknown 10/05/2022 9:15 AM CDT 10/06/2022 1:27 PM CDT Miscellaneous samples (specimen) BONE MARROW SPECIMEN / Unknown 10/05/2022 9:15 AM CDT 10/06/2022 1:27 PM CDT us Jesus Louis MD LAB - PATHOLOGY/CYTOLOGY ORDERAB LES Final Result [facility] [address] [place], [place] [id number] [place] [address] documented in this encounter Visit Diagnoses Diagnosis Illness, unspecified documented in this encounter Care Teams Irrigator Relationship Specialty Start Date End Date Mervat Kelley APRN-DAVIS [address] [phone] PCP - General 11/24/21 documented as of this encounter
--- OUTSIDE RECORDS SUMMARY | 2025-01-23 14:16 | XMS_ITS ---
Author Organization [facility] Building [address] Address [address] [place] [address] Care Team Providers Care Slurry Control Operator Helper Name Role Phone Bryan Davey DO Primary Care Provider Prateek King MD Unavailable Sherman Alvarez DO Unavailable [phone] Active Problems Problem Noted Date Diagnosed Date [...] and/or Platelet Administration for Outpatient* Plan Start Date:01/20/2025 Plan Provider:Chalino Chapa MD Linked Problems Anemia in neoplastic disease MDS (myelodysplastic syndrome) (HCC) Treatment Medications No medications scheduled. Decitabine (D1-5) 28 Day Cycles - AML or MDS* Plan Start Date:11/26/2023 Plan Provider:Chalino Chapa MD Linked Problems MDS (myelodysplastic syndrom e) ([facility]) Treatment Medications Current Day (Day [...] Treatment Medications Discontinue Reason Plan Provider Adult BMT/ONC - Blood and/or Platelet Administration for Outpatient 01/15/2025 No medications scheduled. Therapy Complete Chalino Chapa MD Adult BMT/ONC - Blood and/or Platelet Administration for Outpatient 12/24/2024 01/14/2025 No medications scheduled. Therapy Complete Chalino Chapa MD Adult ONE TIME USE - Blood and/or Platelet Administration for Outpatient 12/18/2024 12/24/2024 No medications scheduled. Orders Chalino Chapa MD Adult Non-ONC - Blood and/or Platelet Administration for Outpatient 12/03/2024 11/28/2024 No medications scheduled. Therapy Chalino Rodrigez MD Adult Non-ONC - Blood and/or Platelet [...] Outpatient 05/16/2024 05/17/2024 No medications scheduled. Therapy Chalino Rodrigez MD [...] (06/06/2018): Added automatically from request for surgery [id number]
--- OUTSIDE RECORDS SUMMARY | 2025-01-23 14:16 | XMS_ITS | Encounter Summary ---
Author Organization [facility] Address [facility] [place] [address] Care Team Providers Care Pump House Operator Name Role Phone Andie Ang MD Primary Care Provider + [phone] Mervat Kelley Primary Care Provider + Andie Ang MD Primary Care Provider + [phone] Mervat Kelley Primary Care Provider + Andie Ang MD Primary Care Provider + [phone] Mervat Kelley Primary Care Provider + Encounter Details Date Type Department Care Team (Late st Contact Info) Description 11/15/[address] [facility] Care DermPath Lab [address] [facility] [place] [address] Sarath De Guzman MD [address] [place] [address] Social History Tobacco Use Types Packs/Day Years [...] AM CDT) Case Report Dermatopathology Report Case: [id number] Authorizing Provider: Sarath De Guzman MD Collected: 11/14/2018 12:00 AM Ordering Location: [facility] DermPath Lab Received: 11/15/2018 12:29 [...] specimen consists of a shave biopsy measuring [id number]. Jar 0. 12:59 PM CDT DERMATOPATHOLOGY LABORATORY [...] determined by the Dermatopathology Laboratory at [facility], directed by Dr. Frederick Schofield. These tests need not be, and therefore are not, approved by the [place] Food and Drug Administration. The tests are used for clinical purposes. Billing Codes Specimen Charges Stain Charges 25686 1 12:59 PM CDT DERMATOPATHOLOGY LABORATORY Embedded Images 12:59 PM CDT DERMATOPATHOLOGY LABORATORY Pathology/Cytolog y TISSUE SPECIMEN FROM SKIN / Unknown 11/14/2018 11/15/2018 12:29 PM CDT Sarath De Guzman MD LAB - PATHOLOGY/CYTOLOGY ORD ERABLES Final Result DERMATOPATHOLOGY LABORATORY [facility] - Department of Dermatology [address] [facility], 5th [place] [address], [facility] [phone] documented in this encounter Visit Diagnoses Not on filedocumented in this encounter Care Teams Pump House Operator Relationship Specialty Start Date End Date Andie Ang MD [address] [phone] PCP - General 08/18/17 09/29/21 Mervat Kelley APRN-CLINICAL PHYSICIAN ASSISTANT [address] [place] [phone] PCP - General Nurse Practitioner 09/30/21 09/30/21 Andie Ang MD [address] [phone] PCP - General 10/01/21 10/12/21 Mervat Kelley APRN-CLINICAL PHYSICIAN ASSISTANT [address] [phone] PCP - General 10/13/21 10/31/21 Andie Ang MD [address] [phone] PCP - General 11/01/21 11/23/21 Mervat Kelley APRN-CLINICAL PHYSICIAN ASSISTANT [address] [phone] PCP - General 11/24/21 documented as of this encounter
--- OUTSIDE RECORDS SUMMARY | 2025-01-23 14:16 | XMS_ITS | Encounter Summary ---
Author Organization [facility] Address [address] [place] [address] Phone Care Team Providers Care Counterperson Name Role Phone Bryan Davey DO Primary Care Provider Prateek King MD Unavailable Sherman Alvarez DO Unavailable [phone] Encounter Details Date Type Department Care Team (Late st Contact Info) Description 12/18/2024 Results Follow-Up [facility] Medicine Physicians [facility] Oncology [address] [place] [address] [address] [phone] Theresa Gutierres RN CBC with auto differential, Differential, auto Social History Tobacco Use Types Packs/Day Years Used Date Smoking Tobacco: Never Smokeless Tobacco: Never Alcohol Use Standard Drinks/Week Comments Yes 0 (1 standard drink = 0.6 oz pur e alcohol) [facility] Utilities Answer Date Recorded In the past 12 months has [employer] electric, gas, oil, or water company threatened [...] often do you attend chur ch or mandaeism services? Never 09/30/2024 Do you belong to [...] time in the past [address] [facility], were you homeless or living in a prison (including now)? No 10/02/2024 Personal Safety Answer Date Recorded Have you ever been in or are you currently in a harmful physical or emotional relationship or is someone making you feel afraid or unsafe? Denies 09/28/2024 Comments Unknown Sex and Gender Information Value Date Recorded Sex Assigned at Not on file Legal Sex Female 1:43 AM HIM ANALYST Gender Identity Not on file Sexual Orientation Not on file documented as of this encounter Plan of Treatment Not on file documented as of this encounter Visit Diagnoses Not on filedocumented in this encounter Care Teams Counterperson Relationship Specialty Start Date End Date Bryan Davey DO PCP - General Internal Medicine 11/14/23 Prateek King MD [address] [place] [address] Consulting Physician Urology 10/07/24 Sherman Alvarez DO [address] [place] [id number] Medical Oncologist/Paper [employer] Pul[employer] Operator Hematology and Oncology 10/07/24 documented as of this encounter
--- OUTSIDE RECORDS SUMMARY | 2025-01-23 14:16 | XMS_ITS | Clinical Summary ---
Author Organization [facility] Address [address] [place] [address] Care Team Providers Care Private Branch Exchange Service Adviser Name Role Phone Mervat Kelley GERA-GRILL ATTENDANT Primary Care Provider + Source Comments [facility],non-owned Affiliates and Associated Physician Practices is amultiple site organization consisting of ambulatory clinics and hospital sitesin [place], [place], [place] and [place]. This disclosure is being madepursuant to the Care Everywhere program and may not contain all information available regarding this patient. Last updated 17.[facility] Allergies Active Allergy Reactions Criticality Noted Date [...] daily Active fish oil/omega-3 fatty acids (Promega;Cardi -Aspers 3) 1000 MG capsule Take 2 (two) [...] 71.7 kg (158 lb) 04/06/2022 10:56 AM STAINING MACHINE OPERATOR Height 152.4 cm (5') 12/22/2021 12:39 [...] age to complete this topic [place] [address] [facility] Advance Directives * Full Code (Latest Code Status on File) Date Activated Date Inactivated Comments 09/29/2021 4:59 AM 09/30/2021 2:57 PM Care Teams Private Branch Exchange Service Adviser Relationship Specialty Start Date End Date Mervat Kelley APRN-CNP [address] [address] PCP - General 11/24/21
[2025-01-23] MEDS: SODIUM CHLORIDE 0.9% IV 1,000 ML 999 ML IV CONT (14:30)
[2025-01-23 14:33] LABS: Hematocrit 21.8 % (37.0-47.0); Hemoglobin 7.1 g/dL (12.0-15.0); Immature Granulocyte Percent A 1.1 % (0-0.5); Lymphocytes Absolute Auto 0.59 K/mm3 (0.9-3.2); Mean Corpuscular HGB Conc 32.6 g/dl (32-36); Mean Corpuscular Hemoglobin 34.1 pg (26-34); Mean Corpuscular Volume 104.8 fl (80-100); Nucleated Red Blood Cells Absolute Auto 0.030 K/mm3 (0.0-0.012); Nucleated Red Blood Cells Perc 1.1 % (0.0-0.2); Platelet Count Result 165 k/mm3 (150-375); Red Blood Count 2.08 M/mm3 (4.2-5.4); White Blood Count 2.8 K/mm3 (4.5-10.0)
[2025-01-23 14:45] LABS: Alanine Aminotransferase 46 U/L (6-35); Albumin Level 3.6 g/dL (3.5-5.1); Alkaline Phosphatase 48 U/L (38-126); Anion Gap 6 mmol/L (4-12); Aspartate Amino Transferase 33 U/L (14-36); Bilirubin,Total 2.1 mg/dL (0.2-1.3); Blood Urea Nitrogen 10 mg/dL (7-17); Calcium 8.7 mg/dL (8.4-10.2); Carbon Dioxide 32 mmol/L (22-30); Chloride 100 mmol/L (98-107); Estimated CRCL calculation 55 ml/min; Estimated Glomerular Filt Rate > 60; Glucose 104 mg/dL (65-110); Lipase 27 U/L (23-300); Potassium 3.5 mmol/L (3.4-5.0); Sodium 138 mmol/L (137-145); Total Protein 6.0 g/dL (6.3-8.2)
--- OUTSIDE RECORDS SUMMARY | 2025-01-23 15:11 | XMS_ITS | Clinical Summary ---
Author Organization [facility] Medical Office Building B Address [address] [place] [address] Care Team Providers Care Snapper On Name Role Phone Bryan Davey DO Primary Care Provider Prateek King MD Unavailable Sherman Alvarez DO Unavailable [phone] Allergies Active Allergy Reactions Criticality Noted Date [...] 10 mg tabletIndicatio ns:MDS (myelodysplasti c syndrome) (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); Myelodysplastic syndrome (HCC); Chronic anemia; MDS (myelodysplastic syndrome) (HCC); Encounter for care related to Port-a-Cath 01/20/2025 10:00 AM CDT Lab [address] [place] [address] Myelodysplastic syndrome (HCC); Chronic anemia; MDS (myelodysplastic syndrome) (HCC); Anemia in neoplastic disease 01/20/2025 Orders Only [facility] [address] [place] [address] Medical Office Bldg [address] [place] [address] Chalino Chapa MD 01/15/2025 10:30 AM CDT Lab [address] [place] [address] Myelodysplastic syndrome (HCC); Anemia in neoplastic disease; Chronic anemia 01/15/2025 10:30 AM CDT Infusion [facility] Infusion [address] [place] [address] MDS (myelodysplastic syndrome) (HCC) (Primary Dx); Myelodysplastic syndrome (HCC); Anemia in neoplastic disease 01/14/2025 [facility]ation [facility] [place] [facility] [address] [place] [address] Office [facility] [address] [place] [address] Betty Sewell, ALBERT 01/14/2025 Orders Only [facility] [place] [facility] [address] [place] [address] [address] [place] [address] Chalino Chapa MD Myelodysplastic syndrome (HCC) (Primary Dx); Anemia in neoplastic disease 01/06/2025 10:00 AM CDT Lab [address] [place] [address] Myelodysplastic syndrome (HCC); Chronic anemia 01/06/2025 10:00 AM CDT Infusion [facility] Infusion [address] [place] [address] 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); Myelodysplastic syndrome (HCC); Chronic anemia; MDS (myelodysplastic syndrome) (HCC) 01/06/2025 Orders Only [facility] [place] [facility] [address] [place] [address] [address] [place] [address] Chalino Chapa MD 01/06/2025 Orders Only [facility] [place] [facility] [address] [place] [address] Office [facility] [address] [place] [address] Chalino Chapa MD Myelodysplastic syndrome (HCC) (Primary Dx) 12/31/2024 9:30 AM CDT Office Visit [facility] [place] [facility] [address] [place] [address] Office [facility] [address] [place] [address] Chalino Chapa MD Myelodysplastic syndrome (HCC) (Primary Dx); Chronic anemia; Anemia in neoplastic disease 12/31/2024 9:00 AM CDT Lab [address] [place] [address] Myelodysplastic syndrome (HCC); Anemia in neoplastic disease 12/30/2024 Telephone [facility] [address] [place] [address] Medical Office Bldg [address] [place] [address] Clau Cabral CLT 12/24/2024 11:30 AM CDT Lab [address] [place] [address] Myelodysplastic syndrome (HCC); Anemia in neoplastic disease; MDS (myelodysplastic syndrome) (HCC) 12/24/2024 11:30 AM CDT Infusion [address] [place] [address] 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); MDS (myelodysplastic syndrome) (HCC) 12/18/2024 10:30 AM CDT Lab [address] [place] [address] Myelodysplastic syndrome (HCC); Anemia in neoplastic disease; MDS (myelodysplastic syndrome) (HCC) 12/18/2024 10:30 AM CDT Infusion [address] [place] [address] MDS (myelodysplastic syndrome) (HCC) (Primary Dx); Myelodysplastic syndrome (HCC); Anemia in neoplastic disease 12/18/2024 Results [facility] [address] [place] [address] Medical Office Bldg [address] [place] [phone] Theresa Gutierres, ALBERT CBC with auto differential, Differential, auto 12/18/2024 Orders Only [facility] [place] [facility] [address] [place] [address] Medical Office Bldg [address] [place] [phone] Michael Terry MD 12/16/[address] [place] [address] Chalino Chapa MD 12/09/[address] [place] [address] Chalino Chapa MD 12/09/2024 Documentation [facility] [address] [place] [address] Medical Office Bldg [address] [place] [address] Betty Sewell RN 12/03/2024 9:30 AM CDT Infusion [address] [place] [address] Bud Rubio RN MDS (myelodysplastic syndrome) (HCC) 12/03/2024 9:00 AM CDT Office Visit [facility] [address] [place] [address] Medical Office Bldg [address] [place] [address] Chalino Chapa MD Myelodysplastic syndrome (HCC) (Primary Dx); Anemia in neoplastic disease; MDS (myelodysplastic syndrome) (HCC) 12/03/2024 8:30 AM CDT Lab [address] [place] [address] MDS (myelodysplastic syndrome) (HCC); Myelodysplastic syndrome (HCC) 11/29/2024 9:00 AM CDT Infusion [address] [address] Radha Veliz RN Anemia in neoplastic disease; MDS (myelodysplastic syndrome) (HCC) 11/29/2024 8:30 AM CDT Lab [address] [place] [address] Anemia in neoplastic disease; MDS (myelodysplastic syndrome) (HCC) 11/28/2024 Orders Only [facility] [address] [place] [address] Medical Office dg [address] [place] [address] Chalino Chapa MD 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) 11/28/2024 Telephone [facility] [place] [facility] [address] [place] [address] Medical Office Bldg [address] [place] [address] Anisa Villagran, CLT 11/26/2024 9:45 AM CDT Lab [address] [place] [address] MDS (myelodysplastic syndrome) ([facility]) 11/19/2024 10:00 AM CDT Infusion [address] [place] [address] Betty Donaldson, ELECTRIC RELAY TESTER (myelodysplastic syndrome) ([facility]) 11/19/2024 9:45 AM CDT Lab [address] [place] [address] MDS (myelodysplastic syndrome) (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) 11/14/2024 9:45 AM CDT Lab [address] [place] [address] MDS (myelodysplastic syndrome) ([facility]) 11/14/2024 Orders Only [facility] [place] [facility] [address] [place] [address] Medical Office Bldg [address] [place] [address] Chalino Chapa MD 11/12/2024 Telephone [facility] [place] [facility] [address] [place] [address] Medical Office Bldg [address] [place] [address] Theresa Gutierres, ALBERT 11/11/2024 10:30 AM CDT Infusion [place] [address] [place] [address] Emile Jackson, RN Encounter for care related to Port-a-Cath (Primary Dx); Myelodysplastic syndrome (HCC); MDS (myelodysplastic syndrome) (HCC) 11/11/2024 10:15 AM CDT Office Visit [facility] [address] [place] [address] Office [facility] [address] [place] [address] Chalino Chapa MD MDS (myelodysplastic syndrome) (HCC) (Primary Dx); Myelodysplastic syndrome (HCC) 11/11/2024 9:45 AM CDT Lab [address] [place] [address] Myelodysplastic syndrome (HCC); MDS (myelodysplastic syndrome) (HCC); Chronic anemia 10/28/2024 Orders Only [facility] [place] [facility] [address] [place] [address] [address] [place] [address] Chalino Chapa MD MDS (myelodysplastic syndrome) (HCC) [...] eft knee, current 06/06/2018 Added automatically from [employer] for surgery [id number] PONV (postoperative nausea a nd vomiting) Anxiety [...] drink = 0.6 oz pur e alcohol) [facility] Utilities Answer Date Recorded In the past 12 months has e Thu[employer], gas, oil, or water [employer] threatened to shut off services in your [...] often do you attend chur ch or restoration services? 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 Gender Identity Not on file Sexual Orientation [...] 10/02, 04/03/2016 Medical Devices Implanted Type Area Folder Inspector Device Identifier Shelf Expiration Date Model / Serial / Lot Emre Chaparrita Powerport Mri Airguard 8fr 1 Lumen Attachable Catheter Latex Free [id number] - [id number] Implanted:Qty: 1 on 11/20/2023 by Shade Red MD at [facility] Right: Chest Emre Dixie 09/30/2024 [id number] / / [id number] Procedures Procedure Name Priority Date/Time Associated Diagnosis [...] RBC (01/20/2025 11:32 AM CDT) Unit Number [id number] Product code [id number] [facility] ([place]) Blood Expiration Date [facility] ([place]) Product Blood Type (for scanning) 5100 [facility] ([place]) Product Blood Type OPOS [facility] ([place]) Dispense Status DISPENSED [facility] ([place]) us Chalino Chapa MD BLOOD BANK PRODUCT ORDERA BLES Final Result Performing Organization Address [facility] Co de Phone Number [facility] ([place]) 1 [facility] Department [place] [address] * Prepare RBC: 1 Units (01/20/2025 11:26 AM CDT) Units requested 1 Comment:Testing performed by : [place], [address] Units requested Ready [facility] ([place]) Comment:Testing performed by : [place], [address] Blood 01/20/2025 11:2 6 AM CDT 01/20/2025 11:26 AM CDT Narrative [facility] ([place]) - 01/20/2025 11:26 AM CDT Are special requirements needed? (All products are leukoreduced and CMV- safe)->No us Chalino Chapa MD BLOOD BANK PRODUCT ORDERA BLES Final Result Performing Organization Address [facility] Co de Phone Number [facility] ([place]) 1 [facility] Department [place] [address] * (ABNORMAL) Differential, auto (01/20/2025 10:25 AM CDT) Neutrophil abs 1.89 1.50 - 6.50 K/cumm Comment:Testing performed by : [place], [address] Imm gran abs 0.04 0.00 - 0.10 K/cumm [facility] ([place]) Comment:Testing performed by : [place], [address] Lymphocyte abs 0.46(L) 0.80 - 3.30 K/cumm [facility] ([place]) Comment:Testing performed by : [place], [address] Monocyte abs 0.19(L) 0.20 - 0.80 K/cumm [facility] ([place]) Comment:Testing performed by : [place], [address] Eosinophil abs 0.03 0.00 - 0.50 K/cumm [facility] ([place]) Comment:Testing performed by : [facility], [facility], [place], [address] Basophil abs 0.02 0.00 - 0.10 K/cumm [facility] ([place]) Comment:Testing performed by : [place], [address] Neutrophil pct 71.9 % [facility] ([place]) Comment: Interpretive Data Percent cell count reference ranges are not reported, since discordance with absolute values may lead to misinterpretation of CBC data. Current Interpretive Data was last revised on 2017. Testing performed by: [place], [address] Imm gran pct 1.5 % [facility] ([place]) Comment: Interpretive Data Percent cell count reference ranges are not reported, since discordance with absolute values may lead to misinterpretation of CBC data. Current Interpretive Data was last revised on 2017. Testing performed by: [place], [address] Lymphocyte pct 17.5 % [facility] ([place]) Comment: Interpretive Data Percent cell count reference ranges are not reported, since discordance with absolute values may lead to misinterpretation of CBC data. Current Interpretive Data was last revised on 2017. Testing performed by: [place], [address] Monocyte pct 7.2 % [facility] ([place]) Comment: Interpretive Data Percent cell count reference ranges are not reported, since discordance with absolute values may lead to misinterpretation of CBC data. Current Interpretive Data was last revised on 2017. Testing performed by: [place], [address] Eosinophil pct 1.1 % [facility] ([place]) Comment: Interpretive Data Percent cell count reference ranges are not reported, since discordance with absolute values may lead to misinterpretation of CBC data. Current Interpretive Data was last revised on 2017. Testing performed by: [facility], [facility], [place], [address] Basophil pct 0.8 % [facility] ([place]) Comment: Interpretive Data Percent cell count reference ranges are not reported, since discordance with absolute values may lead to misinterpretation of CBC data. Current Interpretive Data was last revised on 2017. Testing performed by: [facility], [place], [address] Blood 01/20/2025 10:2 5 AM CDT 01/20/2025 10:46 AM CDT us Chalino Chapa MD LAB BLOOD ORDERABLES Aylin freedman Result [facility] ([place]) 1 [facility] Department [place] [address] * (ABNORMAL) CBC with auto differential (01/20/2025 10:25 AM CDT) WBC 2.63(L) 3.80 - 9.90 K/cumm Comment:Testing performed by : [facility], [place], [address] Hgb 7.2(L) 11.9 - 15.5 g/dL [facility] ([place]) Comment:Testing performed by : [facility], [place], [address] Hct 22.4(L) 35.6 - 45.5 % [facility] ([place]) Comment:Testing performed by : [facility], [place], [address] Plt 184 150 - 400 K/cumm [facility] ([place]) Comment:Testing performed by : [facility], [place], [address] MPV 10.9 9.1 - 12.3 fL [facility] ([place]) Comment:Testing performed by : [facility], [place], [address] RBC 2.07(L) 3.90 - 5.20 M/cumm [facility] ([place]) Comment:Testing performed by : [facility], [place], [address] MCV 108.2(H) 81.3 - 96.4 fL [facility] ([place]) Comment:Testing performed by : [facility], [facility], [place], [address] MCH 34.8(H) 27.1 - 33.3 pg [facility] ([place]) Comment:Testing performed by : [place], [address] MCHC 32.1(L) 32.3 - 35.7 g/dL [facility] ([place]) Comment:Testing performed by : [place], [address] RDW CV 21.2(H) 11.1 - 14.9 % [facility] ([place]) Comment:Testing performed by : [facility], [place], [address] RDW SD 80.7(H) 35.7 - 48.1 fL [facility] ([place]) Comment:Testing performed by : [facility], [place], [address] NRBC abs 0.04(H) 0.00 - 0.01 K/cumm [facility] ([place]) Comment:Testing performed by : [place], [address] Blood 01/20/2025 10:2 5 AM CDT 01/20/2025 10:46 AM CDT Chalino Chapa MD LAB BLOOD ORDERABLES Aylin l Result [facility] ([place]) [address] [place] [address] Department [place] [address] * ABO/Rh (01/20/2025 10:25 AM CDT) ABO/Rh O Positive Comment:Testing performed by : [facility], [place], [address] Blood 01/20/2025 10:2 5 AM CDT 01/20/2025 10:46 AM CDT Narrative [facility] ([place]) - 01/20/2025 11:24 AM CDT Chapa= weekly type and screen for possible blood transfusion on 12/10, 12/17, 12/24, and 12/31/2024 Has the patient had Daratumumab or Isatuximab in the past 6 months?->No Chalino Chapa MD LAB BLOOD BANK TEST ORDER LAITH Final Result Performing Organization Address City/[facility]/ZIP Co de Phone Number [facility] ([place]) 1 [facility] [address] [place] [address] * Crossmatch (01/20/2025 10:25 AM CDT) Crossmatch Compatible SABRA Silva ([place]) Unit number for crossmatch [id number] [facility] ([place]) Blood 01/20/2025 10:2 5 AM CDT 01/20/2025 10:46 AM CDT Chlaino Chapa MD LAB BLOOD BANK TEST ORDER LAITH Final Result Performing Organization Address [facility] Co de Phone Number [facility]RA [facility] ([place]) 1 [facility] [address] [place] [address] * Antibody screen (01/20/2025 10:25 AM CDT) Rivera, indirect, Gel Interpretation Negative ABSC Comment:Testing performed by : [facility], [facility], [place], [address] Blood 01/20/2025 10:2 5 AM CDT 01/20/2025 10:46 AM CDT Narrative [facility] ([place]) - 01/20/2025 11:24 AM CDT Chapa= weekly type and screen for possible blood transfusion on 12/10, 12/17, 12/24, and 12/31/2024 Has the patient had Daratumumab or Isatuximab in the past 6 months?->No Chalino Chapa MD LAB BLOOD BANK TEST ORDER LAITH Final Result Performing Organization Address City/[facility]/ZIP Co de Phone Number [facility] ([place]) 1 [facility] [address] [place] [address] * Transfuse RBC (01/15/2025 1:33 PM CDT) Blood us Chalino Chapa MD BLOOD TRANSFUSION ORDERAB LES Final Result * Prepare RBC (01/15/2025 11:39 AM CDT) Unit Number [id number] Product code [id number] [facility] ([place]) Blood Expiration Date [facility] ([place]) Product Blood Type (for scanning) 5100 [facility] ([place]) Product Blood Type OPOS [facility] ([place]) Dispense Status DISPENSED [facility] ([place]) us Chalino Chapa MD BLOOD BANK PRODUCT ORDERA BLES Final Result Performing Organization Address City/[facility]/ZIP Co de Phone Number [facility] ([place]) [address] [place] [address] [place] [address] * Prepare RBC: 1 Units (01/15/2025 11:33 AM CDT) Units requested 1 Comment:Testing performed by : [place], [address] Units requested Ready [facility] ([place]) Comment:Testing performed by : [place], [address] Blood 01/15/2025 11:3 3 AM CDT 01/15/2025 11:33 AM CDT Narrative [facility] ([place]) - 01/15/2025 11:58 AM CDT Are special requirements needed? (All products are leukoreduced and CMV- safe)->Yes us Chalino Chapa MD BLOOD BANK PRODUCT ORDERA BLES Final Result [facility] ([place]) [address] [facility] [place] [address] * (ABNORMAL) Differential, auto (01/15/2025 10:35 AM CDT) Neutrophil abs 1.30(L) 1.50 - 6.50 K/cumm [facility] ([place]) Comment:Testing performed by : [facility] [address], Medical Office [facility] [address], [place] [address] Imm gran abs 0.02 0.00 - 0.10 K/cumm [facility] ([place]) Comment:Testing performed by : [facility] [address], Medical Office [facility] [address], [place] [address] Lymphocyte abs 0.50(L) 0.80 - 3.30 K/cumm [facility] ([place]) Comment:Testing performed by : [facility] [address], Medical Office [facility] [address], [place] [address] Monocyte abs 0.15(L) 0.20 - 0.80 K/cumm [facility] ([place]) Comment:Testing performed by : [facility] [address], Medical Office [facility] [address], [place] [address] Eosinophil abs 0.02 0.00 - 0.50 K/cumm [facility] ([place]) Comment:Testing performed by : [facility] [address], Medical Office [facility] [address], [place] [address] Basophil abs 0.02 0.00 - 0.10 K/cumm [facility] ([place]) Comment:Testing performed by : [facility] [address], Medical Office [facility] [address], [place] [address] Neutrophil pct 64.6 % [facility] ([place]) Comment: Interpretive Data Percent cell count reference ranges are not reported, since discordance with absolute values may lead to misinterpretation of CBC data. Current Interpretive Data was last revised on 2022. Testing performed by: [facility] [address], Medical Office [facility] [address], [place] [address] Imm gran pct 1.0 % [facility] ([place]) Comment: Interpretive Data Percent cell count reference ranges are not reported, since discordance with absolute values may lead to misinterpretation of CBC data. Current Interpretive Data was last revised on 2022. Testing performed by: [facility] [address], Medical Office [facility] [address], [place] [address] Lymphocyte pct 24.9 % [facility] ([place]) Comment: Interpretive Data Percent cell count reference ranges are not reported, since discordance with absolute values may lead to misinterpretation of CBC data. Current Interpretive Data was last revised on 2022. Testing performed by: [facility] [address], Medical Office [facility] [address], [place] [address] Monocyte pct 7.5 % [facility] ([place]) Comment: Interpretive Data Percent cell count reference ranges are not reported, since discordance with absolute values may lead to misinterpretation of CBC data. Current Interpretive Data was last revised on 2022. Testing performed by: [facility] [address], Medical Office [facility] [address], [place] [address] Eosinophil pct 1.0 % [facility] ([place]) Comment: Interpretive Data Percent cell count reference ranges are not reported, since discordance with absolute values may lead to misinterpretation of CBC data. Current Interpretive Data was last revised on 2022. Testing performed by: [facility] [address], Medical Office [facility] B [facility] [address], [place] [address] Basophil pct 1.0 % [facility] ([place]) Comment: Interpretive Data Percent cell count reference ranges are not reported, since discordance with absolute values may lead to misinterpretation of CBC data. Current Interpretive Data was last revised on 2022. Testing performed by: [facility] [address], Medical Office [facility] B [facility] [address], [place] [address] Blood 01/15/2025 10:3 5 AM CDT 01/15/2025 10:38 AM CDT us Chalino Chapa MD LAB BLOOD ORDERABLES Aylin freedman Result SABRA ROGERS ([place]) 1 [facility] Department [place] [address] * (ABNORMAL) CBC with auto differential (01/15/2025 10:35 AM CDT) WBC 2.01(L) 3.80 - 9.90 K/cumm [facility] ([place]) Comment:Testing performed by : [facility] [address], Medical Office [facility] [address], [place] [address] Hgb 6.5(L) 11.9 - 15.5 g/dL [facility] ([place]) Comment:Testing performed by : [facility] [address], Medical Office [facility] [address] [facility] [address], [place] [address] Hct 20.1(L) 35.6 - 45.5 % [facility] ([place]) Comment:Testing performed by : [facility] [address], Medical Office [facility] B [facility] [address], [place] [address] Plt 174 150 - 400 K/cumm [facility] ([place]) Comment:Testing performed by : [facility] [address], Medical Office [facility] B [facility] [address], [place] [address] MPV 10.6 9.1 - 12.3 fL [facility] ([place]) Comment:Testing performed by : [facility] [address], Medical Office [facility] B [facility] [address], [place] [address] RBC 1.80(L) 3.90 - 5.20 M/cumm [facility] ([place]) Comment:Testing performed by : [facility] [address], Medical Office [facility] B [facility] [address], [place] [address] MCV 111.7(H) 81.3 - 96.4 fL [facility] ([place]) Comment:Testing performed by : [facility] [address], Medical Office [facility] [address], [place] [address] MCH 36.1(H) 27.1 - 33.3 pg [facility] ([place]) Comment:Testing performed by : [facility] [address], Medical Office [facility] [address], [place] [address] MCHC 32.3 32.3 - 35.7 g/dL [facility] ([place]) Comment:Testing performed by : [facility] [address], Medical Office [facility] [address], [place] [address] RDW CV 21.4(H) 11.1 - 14.9 % [facility]ABRA ROGERS ([place]) Comment:Testing performed by : [facility] [address], Medical Office [address], [place] [address] RDW SD 86.6(H) 35.7 - 48.1 fL SABRA ROGERS ([place]) Comment:Testing performed by : [facility] [address], Medical Office [address], [place] [address] Blood 01/15/2025 10:3 5 AM CDT 01/15/2025 10:38 AM CDT Narrative [facility]RA ROGERS ([place]) - 01/15/2025 10:47 AM CDT 01/07, 01/14, 01/21, 01/28 us Chalino Chapa MD LAB BLOOD ORDERABLES Aylin l Result SABRA ROGERS ([place]) 1 [facility] Department of [address] [place] [address] * ABO/Rh (01/15/2025 10:35 AM CDT) ABO/Rh O Positive Comment:Testing performed by : [facility], One [facility], [place], [address] Blood 01/15/2025 10:3 5 AM CDT 01/15/2025 10:52 AM CDT Narrative SABRA ROGERS ([place]) - 01/15/2025 11:30 AM CDT Sammi= weekly type and screen for possible blood transfusion on 12/10, 12/17, 12/24, and 12/31/2024 Has the patient had Daratumumab or Isatuximab in the past 6 months?->No us Chalino Chapa MD LAB BLOOD BANK TEST ORDER LAITH Final Result SABRA ROGERS ([place]) 1 [facility] Department of [address] [place] [address] * Crossmatch (01/15/2025 10:35 AM CDT) Crossmatch Compatible SABRA Silva ([place]) Unit number for crossmatch [id number] [facility] ([place]) Blood 01/15/2025 10:3 5 AM CDT 01/15/2025 10:52 AM CDT Chalino Chapa MD LAB BLOOD BANK TEST ORDER LAITH Final Result Performing Organization Address [facility] Co de Phone Number [facility] ([place]) [address] [place] [address] Department [place] [address] * Antibody screen (01/15/2025 10:35 AM CDT) Pathologist [facility] Rivera, indirect, Gel Interpretation Negative ABSC Comment:Testing performed by : [facility], [place], [address] Blood 01/15/2025 10:3 5 AM CDT 01/15/2025 10:52 AM CDT Narrative [facility] ([place]) - 01/15/2025 11:30 AM CDT Chapa= weekly type and screen for possible blood transfusion on 12/10, 12/17, 12/24, and 12/31/2024 Has the patient had Daratumumab or Isatuximab in the past 6 months?->No Chalino Chapa MD LAB BLOOD BANK TEST ORDER LAITH Final Result Performing Organization Address [facility] Co de Phone Number [facility] ([place]) [address] [place] [address] [place] [address] * Transfuse RBC (01/06/2025 12:34 PM CDT) Blood Chalino Chapa MD BLOOD TRANSFUSION ORDERAB LES Final Result * Prepare RBC (01/06/2025 10:34 AM CDT) Unit Number [id number] Product code [id number] [facility] ([place]) Blood Expiration Date [facility] ([place]) Product Blood Type (for scanning) 9500 [facility] ([place]) Product Blood Type ONEG [facility] ([place]) Dispense Status DISPENSED [facility] ([place]) us Chalino Chapa MD BLOOD BANK PRODUCT ORDERA BLES Final Result Performing Organization Address [facility]/ZIP Co de Phone Number [facility] ([place]) [address] [facility] [place] [address] * Prepare RBC: 1 Units (01/06/2025 10:08 AM CDT) Units requested 1 Comment:Testing performed by : [facility], [place], [address] Units requested Ready EMMY ROGERS ([place]) Comment:Testing performed by : [facility], [place], [address] Blood 01/06/2025 10:0 8 AM CDT 01/06/2025 10:08 AM CDT Narrative [facility] ([place]) - 01/06/2025 10:08 AM CDT Are special requirements needed? (All products are leukoreduced and CMV- safe)->No us Chalino Chapa MD BLOOD BANK PRODUCT ORDERA BLES Final Result Performing Organization Address [facility] Co de Phone Number [facility] ([place]) 1 [facility] [address] [place] [address] * Crossmatch (01/06/2025 10:06 AM CDT) Crossmatch Compatible [facility] ([place]) Unit number for crossmatch [id number] [facility] ([place]) Blood 01/06/2025 10:0 6 AM CDT 01/06/2025 10:06 AM CDT us Chalino Chapa MD LAB BLOOD BANK TEST ORDER LAITH Final Result [facility] ([place]) [address] [place] [address] * (ABNORMAL) Differential, auto (01/06/2025 9:10 AM CDT) Neutrophil abs 1.18(L) 1.50 - 6.50 K/cumm [facility] ([place]) Comment:Testing performed by : [facility] [address], Medical Office [facility] [address], [place] [address] Imm gran abs 0.02 0.00 - 0.10 K/cumm [facility] ([place]) Comment:Testing performed by : [facility] [address], Medical Office [facility] [address], [place] [address] Lymphocyte abs 0.48(L) 0.80 - 3.30 K/cumm [facility] ([place]) Comment:Testing performed by : [facility] [address], Medical Office [facility] [address], [place] [address] Monocyte abs 0.16(L) 0.20 - 0.80 K/cumm [facility] ([place]) Comment:Testing performed by : [facility] [address], Medical Office [facility] [address], [place] [address] Eosinophil abs 0.11 0.00 - 0.50 K/cumm [facility] ([place]) Comment:Testing performed by : [facility] [address], Medical Office [facility] [address], [place] [address] Basophil abs 0.03 0.00 - 0.10 K/cumm [facility] ([place]) Comment:Testing performed by : [facility] [address], Medical Office [facility] [address], [place] [address] Neutrophil pct 59.6 % [facility] R [facility] ([place]) Comment: Interpretive Data Percent cell count reference ranges are not reported, since discordance with absolute values may lead to misinterpretation of CBC data. Current Interpretive Data was last revised on 2022. Testing performed by: [facility] [address], Medical Office [facility] [address], [place] [address] Imm gran pct 1.0 % [facility] ([place]) Comment: Interpretive Data Percent cell count reference ranges are not reported, since discordance with absolute values may lead to misinterpretation of CBC data. Current Interpretive Data was last revised on 2022. Testing performed by: [facility] [address], Medical Office [facility] B [facility] [address], [place] [address] Lymphocyte pct 24.2 % [facility] R [facility] ([place]) Comment: Interpretive Data Percent cell count reference ranges are not reported, since discordance with absolute values may lead to misinterpretation of CBC data. Current Interpretive Data was last revised on 2022. Testing performed by: [facility] [address], Medical Office [facility] [address], [place] [address] Monocyte pct 8.1 % [facility] ([place]) Comment: Interpretive Data Percent cell count reference ranges are not reported, since discordance with absolute values may lead to misinterpretation of CBC data. Current Interpretive Data was last revised on 2022. Testing performed by: [facility] [address], Medical Office [facility] B [facility] [address], [place] [address] Eosinophil pct 5.6 % [facility] ([place]) Comment: Interpretive Data Percent cell count reference ranges are not reported, since discordance with absolute values may lead to misinterpretation of CBC data. Current Interpretive Data was last revised on 2022. Testing performed by: [facility] [address], Medical Office [facility] [address], [place] [address] Basophil pct 1.5 % [facility] ([place]) Comment: Interpretive Data Percent cell count reference ranges are not reported, since discordance with absolute values may lead to misinterpretation of CBC data. Current Interpretive Data was last revised on 2022. Testing performed by: [facility] [address], Medical Office [facility] [address], [place] [address] Blood 01/06/2025 9:10 AM CDT 01/06/2025 9:14 AM CDT us Chalino Chapa MD LAB BLOOD ORDERABLES Aylin tano Result SABRA ROGERS ([place]) 1 [facility] Department [place] [address] * (ABNORMAL) CBC with auto differential (01/06/2025 9:10 AM CDT) WBC 1.98(L) 3.80 - 9.90 K/cumm [facility] ([place]) Comment:Testing performed by : [facility] [address], Medical Office [address], [place] [address] Hgb 7.1(L) 11.9 - 15.5 g/dL [facility] ([place]) Comment:Testing performed by : [facility] [address], Medical Office [address], [place] [address] Hct 21.9(L) 35.6 - 45.5 % [facility] ([place]) Comment:Testing performed by : [facility] [address], Medical Office [address], [place] [address] Plt 154 150 - 400 K/cumm [facility] ([place]) Comment:Testing performed by : [facility] [address], Medical Office [facility] [address], [place] [address] MPV 11.2 9.1 - 12.3 fL [facility] ([place]) Comment:Testing performed by : [facility] [address], Medical Office [facility] [address], [place] [address] RBC 1.92(L) 3.90 - 5.20 M/cumm [facility] ([place]) Comment:Testing performed by : [facility] [address], Medical Office [facility] [address], [place] [address] MCV 114.1(H) 81.3 - 96.4 fL [facility] ([place]) Comment:Testing performed by : [facility] [address], Medical Office [address], [place] [address] MCH 37.0(H) 27.1 - 33.3 pg [facility] ([place]) Comment:Testing performed by : [facility] [address], Medical Office [address], [place] [address] MCHC 32.4 32.3 - 35.7 g/dL [facility] ([place]) Comment:Testing performed by : [facility] [address], Medical Office [address], [place] [address] RDW CV 21.4(H) 11.1 - 14.9 % SABRA ROGERS ([place]) Comment:Testing performed by : [facility] [address], Medical Office [facility] [address], [place] [address] RDW SD 88.7(H) 35.7 - 48.1 fL SABRA ROGERS ([place]) Comment:Testing performed by : [facility] [address], Medical Office [facility] [address], [place] [address] Blood 01/06/2025 9:10 AM CDT 01/06/2025 9:14 AM CDT Narrative SABRA ROGERS ([place]) - 01/06/2025 9:17 AM CDT 01/07, 01/14, 01/21, 01/28 us Chalino Chapa MD LAB BLOOD ORDERABLES Aylin l Result SABRA ROGERS ([place]) 1 [facility] Department of [address] [place] [address] * ABO/Rh (01/06/2025 9:10 AM CDT) ABO/Rh O Positive Comment:Testing performed by : [facility], [facility], [place], [address] Blood 01/06/2025 9:10 AM CDT 01/06/2025 9:26 AM CDT Narrative SABRA ROGERS ([place]) - 01/06/2025 10:04 AM CDT 01/07, 01/14, 01/21, 01/28 Has the patient had Daratumumab or Isatuximab in the past 6 months?->Unknown us Chalino Chapa MD LAB BLOOD BANK TEST ORDER LAITH Final Result SABRA ROGERS ([place]) 1 [facility] Department of [address] [place] [address] * Antibody screen (01/06/2025 9:10 AM CDT) Rivera, indirect, Gel Interpretation Negative ABSC Comment:Testing performed by : [facility], [facility], [place], [address] Blood 01/06/2025 9:10 AM CDT 01/06/2025 9:26 AM CDT Narrative SABRA ROGERS ([place]) - 01/06/2025 10:04 AM CDT 01/07, 01/14, 01/21, 01/28 Has the patient had Daratumumab or Isatuximab in the past 6 months?->Unknown us Chalino Chapa MD LAB BLOOD BANK TEST ORDER LAITH Final Result SABRA ROGERS ([place]) [address] [place] [address] Department [place] [address] * eGFR (12/31/2024 8:55 AM CDT) eGFR [...] was last reviewed 2021. Testing performed by: [facility], [facility], [place], [address] Blood 12/31/2024 8:55 AM CDT 12/31/2024 4:08 PM CDT us Chalino Chapa MD LAB BLOOD ORDERABLES Aylin freedman Result [facility] ([place]) 1 [facility] Department [place] [address] * (ABNORMAL) Differential, auto (12/31/2024 8:55 AM CDT) Neutrophil abs 1.01(L) 1.50 - 6.50 K/cumm [facility] ([place]) Comment:Testing performed by : [facility] [address], Medical Office [facility] [address], [place] [address] Imm gran abs 0.00 0.00 - 0.10 K/cumm [facility] ([place]) Comment:Testing performed by : [facility] [address], Medical Office [facility] [address], [place] [address] Lymphocyte abs 0.39(L) 0.80 - 3.30 K/cumm [facility] ([place]) Comment:Testing performed by : [facility] [address], Medical Office [facility] [address], [place] [address] Monocyte abs 0.14(L) 0.20 - 0.80 K/cumm [facility] ([place]) Comment:Testing performed by : [facility] [address], Medical Office [facility] [address], [place] [address] Eosinophil abs 0.04 0.00 - 0.50 K/cumm [facility] ([place]) Comment:Testing performed by : [facility] [address], Medical Office [facility] [address], [place] [address] Basophil abs 0.02 0.00 - 0.10 K/cumm [facility] ([place]) Comment:Testing performed by : [facility] [address], Medical Office [facility] [address], [place] [address] Neutrophil pct 63.0 % [facility] ([place]) Comment: Interpretive Data Percent cell count reference ranges are not reported, since discordance with absolute values may lead to misinterpretation of CBC data. Current Interpretive Data was last revised on 2022. Testing performed by: [facility] [address], Medical Office [address], [place] [address] Imm gran pct 0.0 % [facility] ([place]) Comment: Interpretive Data Percent cell count reference ranges are not reported, since discordance with absolute values may lead to misinterpretation of CBC data. Current Interpretive Data was last revised on 2022. Testing performed by: [facility] [address], Medical Office [address], [place] [address] Lymphocyte pct 24.4 % [facility] ([place]) Comment: Interpretive Data Percent cell count reference ranges are not reported, since discordance with absolute values may lead to misinterpretation of CBC data. Current Interpretive Data was last revised on 2022. Testing performed by: [facility] [address], Medical Office [address], [place] [address] Monocyte pct 8.8 % [facility] ([place]) Comment: Interpretive Data Percent cell count reference ranges are not reported, since discordance with absolute values may lead to misinterpretation of CBC data. Current Interpretive Data was last revised on 2022. Testing performed by: [facility] [address], Medical Office [facility] [address], [place] [address] Eosinophil pct 2.5 % [facility] ([place]) Comment: Interpretive Data Percent cell count reference ranges are not reported, since discordance with absolute values may lead to misinterpretation of CBC data. Current Interpretive Data was last revised on 2022. Testing performed by: [facility] [address], Medical Office [facility] [address], [place] [address] Basophil pct 1.3 % [facility] ([place]) Comment: Interpretive Data Percent cell count reference ranges are not reported, since discordance with absolute values may lead to misinterpretation of CBC data. Current Interpretive Data was last revised on 2022. Testing performed by: [facility] [address], Medical Office [facility] [address], [place] [address] Blood 12/31/2024 8:55 AM CDT 12/31/2024 9:02 AM CDT Chalino Chapa MD LAB BLOOD ORDERABLES Aylin freedman Result [facility] ([place]) 1 [facility] Department [place] [address] * (ABNORMAL) CBC with auto differential (12/31/2024 8:55 AM CDT) WBC 1.60(L) 3.80 - 9.90 K/cumm [facility] ([place]) Comment:Testing performed by : [facility] [address], Medical Office [facility] [address], [place] [address] Hgb 8.0(L) 11.9 - 15.5 g/dL [facility] ([place]) Comment:Testing performed by : [facility] [address], Medical Office [facility] [address], [place] [address] Hct 24.3(L) 35.6 - 45.5 % [facility] ([place]) Comment:Testing performed by : [facility] [address], Medical Office [facility] [address], [place] [address] Plt 169 150 - 400 K/cumm [facility] ([place]) Comment:Testing performed by : [facility] [address], Medical Office [facility] [address], [place] [address] MPV 10.6 9.1 - 12.3 fL [facility] ([place]) Comment:Testing performed by : [facility] [address], Medical Office [facility] B [facility] [address], [place] [address] RBC 2.14(L) 3.90 - 5.20 M/cumm [facility] ([place]) Comment:Testing performed by : [facility] [address], Medical Office [facility] [address], [place] [address] MCV 113.6(H) 81.3 - 96.4 fL [facility] ([place]) Comment:Testing performed by : [facility] [address], Medical Office [facility] [address], [place] [address] MCH 37.4(H) 27.1 - 33.3 pg [facility] ([place]) Comment:Testing performed by : [facility] [address], Medical Office [facility] [address], [place] [address] MCHC 32.9 32.3 - 35.7 g/dL [facility] ([place]) Comment:Testing performed by : [facility] [address], Medical Office [address], [place] [address] RDW CV 21.1(H) 11.1 - 14.9 % [facility] ([place]) Comment:Testing performed by : [facility] [address], Medical Office [facility] [address], [place] [address] RDW SD 88.1(H) 35.7 - 48.1 fL [facility] ([place]) Comment:Testing performed by : [facility] [address], Medical Office [facility] [address], [place] [address] Blood 12/31/2024 8:55 AM CDT 12/31/2024 9:02 AM CDT Narrative SABRA ROGERS ([place]) - 12/31/2024 9:05 AM CDT Cbc 12/10, 12/17, 12/24, AND 12/[address] Chapa us Chalino Chapa MD LAB BLOOD ORDERABLES Aylin l Result [facility] ([place] 1 [facility] Department [place] [address] * (ABNORMAL) Comprehensive metabolic panel (12/31/2024 8:55 [...] Aylin l Result [facility] ([place]) 1 [facility] Department [place] [address] * Transfuse RBC (12/24/2024 2:50 PM CDT) Blood Chalino Chapa MD BLOOD TRANSFUSION ORDERAB LES Final Result * Prepare RBC: 1 Units (12/24/2024 1:23 PM CDT) Units requested 1 Comment:Testing performed by : [facility], [place], [address] Units requested Ready [facility] ([place]) Comment:Testing performed by : [place], [address] Blood 12/24/2024 1:23 PM CDT 12/24/2024 1:23 PM CDT Narrative SABRA ROGERS ([place]) - 12/24/2024 1:28 PM CDT Are special requirements needed? (All products are leukoreduced and CMV- safe)->No us Chalino Chapa MD BLOOD BANK PRODUCT ORDERA BLES Final Result SABRA ROGERS ([place]) 1 [facility] Department [place] [address] * Prepare RBC (12/24/2024 12:57 PM CDT) Unit Number [id number] Product code [id number] [facility] ([place]) Blood Expiration Date [id number] [facility] ([place]) Product Blood Type (for scanning) 5100 [facility] ([place]) Product Blood Type OPOS [facility] ([place]) Dispense Status DISPENSED AMYPAOLA ROGERS ([place]) us Chalino Chapa MD BLOOD BANK PRODUCT ORDERA BLES Final Result Performing Organization Address City/[facility]/ZIP Co de Phone Number SABRA ROGERS ([place]) 1 [facility] Department [place] [address] * (ABNORMAL) Differential, auto (12/24/2024 11:35 AM CDT) Neutrophil abs 1.01(L) 1.50 - 6.50 K/cumm [facility] ([place]) Comment:Testing performed by : [facility] [facility] [address], Medical Office [address], [place] [address] Imm gran abs 0.02 0.00 - 0.10 K/cumm [facility] ([place]) Comment:Testing performed by : [facility] [address], Medical Office [address], [place] [address] Lymphocyte abs 0.74(L) 0.80 - 3.30 K/cumm [facility] ([place]) Comment:Testing performed by : [facility] [address], Medical Office [address], [place] [address] Monocyte abs 0.14(L) 0.20 - 0.80 K/cumm [facility] ([place]) Comment:Testing performed by : [facility] [address], Medical Office [address], [place] [address] Eosinophil abs 0.02 0.00 - 0.50 K/cumm [facility] ([place]) Comment:Testing performed by : [facility] [address], Medical Office [facility] [address], [place] [address] Basophil abs 0.03 0.00 - 0.10 K/cumm [facility] ([place]) Comment:Testing performed by : [facility] [address], Medical Office [facility] [address], [place] [address] Neutrophil pct 51.6 % [facility] ([place]) Comment: Interpretive Data Percent cell count reference ranges are not reported, since discordance with absolute values may lead to misinterpretation of CBC data. Current Interpretive Data was last revised on 2022. Testing performed by: [facility] [address], Medical Office [facility] [address], [place] [address] Imm gran pct 1.0 % [facility] ([place]) Comment: Interpretive Data Percent cell count reference ranges are not reported, since discordance with absolute values may lead to misinterpretation of CBC data. Current Interpretive Data was last revised on 2022. Testing performed by: [facility] [address], Medical Office [facility] [address], [place] [address] Lymphocyte pct 37.8 % [facility] ([place]) Comment: Interpretive Data Percent cell count reference ranges are not reported, since discordance with absolute values may lead to misinterpretation of CBC data. Current Interpretive Data was last revised on 2022. Testing performed by: [facility] [address], Medical Office [address], [place] [address] Monocyte pct 7.1 % [facility] ([place]) Comment: Interpretive Data Percent cell count reference ranges are not reported, since discordance with absolute values may lead to misinterpretation of CBC data. Current Interpretive Data was last revised on 2022. Testing performed by: [facility] [address], Medical Office [facility] [address], [place] [address] Eosinophil pct 1.0 % EMELINA ROGERS ([place]) Comment: Interpretive Data Percent cell count reference ranges are not reported, since discordance with absolute values may lead to misinterpretation of CBC data. Current Interpretive Data was last revised on 2022. Testing performed by: [facility] [address], Medical Office [facility] [address], [place] [address] Basophil pct 1.5 % SABRA ROGERS ([place]) Comment: Interpretive Data Percent cell count reference ranges are not reported, since discordance with absolute values may lead to misinterpretation of CBC data. Current Interpretive Data was last revised on 2022. Testing performed by: [facility] [address], Medical Office [facility] [address], [place] [address] Blood 12/24/2024 11:3 5 AM CDT 12/24/2024 11:36 AM CDT us Chalino Chapa MD LAB BLOOD ORDERABLES Aylin freedman Result SABRA ROGERS ([place]) 1 [facility] Department [place] [address] * (ABNORMAL) CBC with auto differential (12/24/2024 11:35 AM CDT) WBC 1.96(L) 3.80 - 9.90 K/cumm SABRA ROGERS ([place]) Comment:Testing performed by : [facility] [address], Medical Office [facility] [address], [place] [address] Hgb 7.5(L) 11.9 - 15.5 g/dL SABRA ROGERS ([place]) Comment:Testing performed by : [facility] [address], Medical Office [facility] [address], [place] [address] Hct 22.6(L) 35.6 - 45.5 % SABRA ROGERS ([place]) Comment:Testing performed by : [facility] [address], Medical Office [facility] B [facility] [address], [place] [address] Plt 168 150 - 400 K/cumm [facility] ([place]) Comment:Testing performed by : [facility] [address], Medical Office [facility] B [facility] [address], [place] [address] MPV 11.2 9.1 - 12.3 fL [facility] ([place]) Comment:Testing performed by : [facility] [address], Medical Office [facility] B [facility] [address], [place] [address] RBC 1.96(L) 3.90 - 5.20 M/cumm [facility] ([place]) Comment:Testing performed by : [facility] [address], Medical Office [facility] B [facility] [address], [place] [address] MCV 115.3(H) 81.3 - 96.4 fL [facility] ([place]) Comment:Testing performed by : [facility] [address], Medical Office [facility] B [facility] [address], [place] [address] MCH 38.3(H) 27.1 - 33.3 pg [facility] ([place]) Comment:Testing performed by : [facility] [address], Medical Office [facility] B [facility] [address], [place] [address] MCHC 33.2 32.3 - 35.7 g/dL [facility] ([place]) Comment:Testing performed by : [facility] [address], Medical Office [facility] B [facility] [address], [place] [address] RDW CV 22.8(H) 11.1 - 14.9 % [facility] ([place]) Comment:Testing performed by : [facility] [address], Medical Office [facility] B [facility] [address], [place] [address] RDW SD 94.4(H) 35.7 - 48.1 fL [facility] ([place]) Comment:Testing performed by : [facility] [address], Medical Office [facility] B [facility] [address], [place] [address] Blood 12/24/2024 11:3 5 AM CDT 12/24/2024 11:36 AM CDT Narrative [facility] ([place]) - 12/24/2024 11:38 AM CDT Cbc 12/10, 12/17, 12/24, AND 12/[address] Chapa us Chalino Chapa MD LAB BLOOD ORDERABLES Aylin l Result [facility]RA [facility] ([place]) 1 [facility] [place] [address] * ABO/Rh (12/24/2024 11:35 AM CDT) ABO/Rh O Positive Comment:Testing performed by : [facility], [place], [address] Blood 12/24/2024 11:3 5 AM CDT 12/24/2024 12:16 PM CDT Narrative [facility] ([place]) - 12/24/2024 12:43 PM CDT 11/19, 11/26, 12/03 Has the patient had Daratumumab or Isatuximab in the past 6 months?->Unknown Witnessed by Emile Jackson us Chalino Chapa MD LAB BLOOD BANK TEST ORDER LAITH Final Result Performing Organization Address [facility] Co de Phone Number [facility] ([place]) [address] [place] [id number] * Crossmatch (12/24/2024 11:35 AM CDT) Pathologist [facility] Crossmatch Compatible SABRA Silva [facility]) Unit number for crossmatch [id number] [facility] ([place]) Blood 12/24/2024 11:3 5 AM CDT 12/24/2024 12:16 PM CDT us Chalino Chapa MD LAB BLOOD BANK TEST ORDER LAITH Final Result [facility] ([place]) 1 [facility] [place] [address] * Antibody screen (12/24/2024 11:35 AM CDT) Rivera, indirect, Gel Interpretation Negative ABSC Comment:Testing performed by : [place], [address] Blood 12/24/2024 11:3 5 AM CDT 12/24/2024 12:16 PM CDT Narrative SABRA ORGERS ([place]) - 12/24/2024 12:49 PM CDT 11/19, 11/26, 12/03 Has the patient had Daratumumab or Isatuximab in the past 6 months?->Unknown us Chalino Chapa MD LAB BLOOD BANK TEST ORDER LAITH Final Result AMYPAOLA SUE ([place]) [address] [place] [address] [address] [place] [address] * Transfuse RBC (12/18/2024 2:40 PM CDT) Blood Michael Terry MD BLOOD TRANSFUSION ORDERABLES Final Result * Prepare RBC (12/18/2024 12:15 PM CDT) Unit Number [id number] Product code [id number] [facility] ([place]) Blood Expiration Date [facility] ([place]) Product Blood Type (for scanning) 5100 [facility] ([place]) Product Blood Type OPOS [facility] ([place]) Dispense Status DISPENSED [facility] ([place]) us Chalino Chapa MD BLOOD BANK PRODUCT ORDERA BLES Final Result SABRA ROGERS ([place]) 1 [facility] Department of [address] [place] [address] * Prepare RBC: 1 Units (12/18/2024 10:45 AM CDT) Units requested 1 Comment:Testing performed by : [facility], [place], [address] Units requested Ready EMMY ROGERS ([place]) Comment:Testing performed by : [facility], [facility], [place], [address] Blood 12/18/2024 10:4 5 AM CDT 12/18/2024 11:50 AM CDT Narrative SABRA ROGERS ([place]) - 12/18/2024 11:51 AM CDT Are special requirements needed? (All products are leukoreduced and CMV- safe)->No Michael Terry MD BLOOD BANK PRODUCT ORDERABLES Final Result SABRA SUE ([place]) 1 [facility] Department [place] [address] * (ABNORMAL) Differential, auto (12/18/2024 10:20 AM CDT) Neutrophil abs 1.27(L) 1.50 - 6.50 K/cumm [facility] ([place]) Comment:Testing performed by : [facility] [address], Medical Office [facility] [address], [place] [address] Imm gran abs 0.01 0.00 - 0.10 K/cumm [facility] ([place]) Comment:Testing performed by : [facility] [address], Medical Office [facility] [address], [place] [address] Lymphocyte abs 0.46(L) 0.80 - 3.30 K/cumm [facility] ([place]) Comment:Testing performed by : [facility] [address], Medical Office [facility] [address], [place] [address] Monocyte abs 0.15(L) 0.20 - 0.80 K/cumm [facility] ([place]) Comment:Testing performed by : [facility] [address], Medical Office [facility] [address], [place] [address] Eosinophil abs 0.02 0.00 - 0.50 K/cumm [facility] ([place]) Comment:Testing performed by : [facility] [address], Medical Office [facility] [address], [place] [address] Basophil abs 0.02 0.00 - 0.10 K/cumm [facility] ([place]) Comment:Testing performed by : [facility] [address], Medical Office [address], [place] [address] Neutrophil pct 65.9 % [facility] ([place]) Comment: Interpretive Data Percent cell count reference ranges are not reported, since discordance with absolute values may lead to misinterpretation of CBC data. Current Interpretive Data was last revised on 2022. Testing performed by: [facility] [address], Medical Office [address]g [address], [place] [address] Imm gran pct 0.5 % [facility] ([place]) Comment: Interpretive Data Percent cell count reference ranges are not reported, since discordance with absolute values may lead to misinterpretation of CBC data. Current Interpretive Data was last revised on 2022. Testing performed by: [facility] [address], Medical Office [address]g [address], [place] [address] Lymphocyte pct 23.8 % [facility] ([place]) Comment: Interpretive Data Percent cell count reference ranges are not reported, since discordance with absolute values may lead to misinterpretation of CBC data. Current Interpretive Data was last revised on 2022. Testing performed by: [facility] [address], Medical Office [address]g [address], [place] [address] Monocyte pct 7.8 % [facility] ([place]) Comment: Interpretive Data Percent cell count reference ranges are not reported, since discordance with absolute values may lead to misinterpretation of CBC data. Current Interpretive Data was last revised on 2022. Testing performed by: [facility] [address], Medical Office [facility] [address], [place] [address] Eosinophil pct 1.0 % [facility] ([place]) Comment: Interpretive Data Percent cell count reference ranges are not reported, since discordance with absolute values may lead to misinterpretation of CBC data. Current Interpretive Data was last revised on 2022. Testing performed by: [facility] [address], Medical Office [address], [place] [address] Basophil pct 1.0 % [facility] ([place]) Comment: Interpretive Data Percent cell count reference ranges are not reported, since discordance with absolute values may lead to misinterpretation of CBC data. Current Interpretive Data was last revised on 2022. Testing performed by: [facility] [address], Medical Office [facility] B [facility] [address], [place] [address] Blood 12/18/2024 10:2 0 AM CDT 12/18/2024 10:30 AM CDT us Chalino Chapa MD LAB BLOOD ORDERABLES Aylin tano Result [facility] ([place]) 1 [facility] Department [place] [address] * (ABNORMAL) CBC with auto differential (12/18/2024 10:20 AM CDT) WBC 1.93(L) 3.80 - 9.90 K/cumm [facility] ([place]) Comment:Testing performed by : [facility] [address], Medical Office [facility] B [facility] [address], [place] [address] Hgb 6.7(L) 11.9 - 15.5 g/dL [facility] ([place]) Comment:Testing performed by : [facility] [address], Medical Office [facility] B [facility] [address], [place] [address] Hct 20.7(L) 35.6 - 45.5 % [facility] ([place]) Comment:Testing performed by : [facility] [address], Medical Office [facility] B [facility] [address], [place] [address] Plt 152 150 - 400 K/cumm [facility] ([place]) Comment:Testing performed by : [facility] [address], Medical Office [facility] B [facility] [address], [place] [address] MPV 11.1 9.1 - 12.3 fL [facility] ([place]) Comment:Testing performed by : [facility] [address], Medical Office [facility] B [facility] [address], [place] [address] RBC 1.70(L) 3.90 - 5.20 M/cumm [facility] ([place]) Comment:Testing performed by : [facility] [address], Medical Office [facility] [address], [place] [address] MCV 121.8(H) 81.3 - 96.4 fL SABRA ROGERS ([place]) Comment:Testing performed by : [facility] [address], Medical Office [address], [place] [address] MCH 39.4(H) 27.1 - 33.3 pg SABRA ROGERS ([place]) Comment:Testing performed by : [facility] [address], Medical Office [address], [place] [address] MCHC 32.4 32.3 - 35.7 g/dL [facility] ([place]) Comment:Testing performed by : [facility] [address], Medical Office [address], [place] [address] RDW CV 20.7(H) 11.1 - 14.9 % SABRA ROGERS ([place]) Comment:Testing performed by : [facility] [address], Medical Office [address], [place] [address] RDW SD 91.4(H) 35.7 - 48.1 fL SABRA ROGERS ([place]) Comment:Testing performed by : [facility] [address], Medical Office [address], [place] [address] Blood 12/18/2024 10:2 0 AM CDT 12/18/2024 10:30 AM CDT Narrative SABRA ROGERS ([place]) - 12/18/2024 10:33 AM CDT Cbc 12/10, 12/17, 12/24, AND 12/[address] Chapa Chalino Chapa MD LAB BLOOD ORDERABLES Aylin l Result SABRA ROGERS ([place]) 1 [facility] Department [place] [address] * ABO/Rh (12/18/2024 10:20 AM CDT) ABO/Rh O Positive Comment:Testing performed by : [facility], [facility], [place], [address] Blood 12/18/2024 10:2 0 AM CDT 12/18/2024 11:04 AM CDT Narrative [facility] - 12/18/2024 11:45 AM CDT Has the patient had Daratumumab or Isatuximab in the past 6 months?->Unknown Milla Armenta CERAMIC ENGINEERING PROFESSOR LAB BLOOD BANK TEST ORDERA BLES Final Result Performing Organization Address City/[facility]/ZIP Co de Phone Number [facility] 1 [facility] [address] [place] [address] * Crossmatch (12/18/2024 10:20 AM CDT) Crossmatch Compatible SARBA Silva ([place]) Unit number for crossmatch [id number] [facility] ([place]) Blood 12/18/2024 10:2 0 AM CDT 12/18/2024 11:04 AM CDT Chalino Chapa MD LAB BLOOD BANK TEST ORDER LAITH Final Result Performing Organization Address [facility] Co de Phone Number [facility] 1 [facility] [address] [place] [address] * Antibody screen (12/18/2024 10:20 AM CDT) Rivera, indirect, Gel Interpretation Negative ABSC Comment:Testing performed by : [facility], [facility], [place], [address] Blood 12/18/2024 10:2 0 AM CDT 12/18/2024 11:04 AM CDT Narrative [facility] ([place]) - 12/18/2024 11:45 AM CDT Has the patient had Daratumumab or Isatuximab in the past 6 months?->Unknown Milla Armenta NP LAB BLOOD BANK TEST ORDERA BLES Final Result Performing Organization Address City/[facility]/ZIP Co de Phone Number [facility] ([place]) 1 [facility] [address] [place] [address] * eGFR (12/03/2024 8:30 AM CDT) eGFR [...] was last reviewed 2021. Testing performed by: [place], [address] Blood 12/03/2024 8:30 AM CDT 12/03/2024 8:42 AM CDT us Chalino Chapa MD LAB BLOOD ORDERABLES Aylin l Result [facility] ([place]) 1 [facility] Department [place] [address] * (ABNORMAL) Differential, auto (12/03/2024 8:30 AM CDT) Neutrophil abs 0.88(L) 1.50 - 6.50 K/cumm Comment:Testing performed by : [facility], [place], [address] Imm gran abs 0.02 0.00 - 0.10 K/cumm SABRA ROGERS ([place]) Comment:Testing performed by : [facility], [place], [address] Lymphocyte abs 0.52(L) 0.80 - 3.30 K/cumm SABRA ROGERS ([place]) Comment:Testing performed by : [facility], [facility], [place], [address] Monocyte abs 0.12(L) 0.20 - 0.80 K/cumm [facility] ([place]) Comment:Testing performed by : [facility], [facility], [place], [address] Eosinophil abs 0.03 0.00 - 0.50 K/cumm [facility] ([place]) Comment:Testing performed by : [facility], [facility], [place], [address] Basophil abs 0.01 0.00 - 0.10 K/cumm [facility] ([place]) Comment:Testing performed by : [place], [address] Neutrophil pct 55.7 % [facility] ([place]) Comment: Interpretive Data Percent cell count reference ranges are not reported, since discordance with absolute values may lead to misinterpretation of CBC data. Current Interpretive Data was last revised on 2017. Testing performed by: [place], [address] Imm gran pct 1.3 % [facility] ([place]) Comment: Interpretive Data Percent cell count reference ranges are not reported, since discordance with absolute values may lead to misinterpretation of CBC data. Current Interpretive Data was last revised on 2017. Testing performed by: [facility], [place], [address] Lymphocyte pct 32.9 % [facility] ([place]) Comment: Interpretive Data Percent cell count reference ranges are not reported, since discordance with absolute values may lead to misinterpretation of CBC data. Current Interpretive Data was last revised on 2017. Testing performed by: [place], [address] Monocyte pct 7.6 % [facility] ([place]) Comment: Interpretive Data Percent cell count reference ranges are not reported, since discordance with absolute values may lead to misinterpretation of CBC data. Current Interpretive Data was last revised on 2017. Testing performed by: [facility], [place], [address] Eosinophil pct 1.9 % [facility] ([place]) Comment: Interpretive Data Percent cell count reference ranges are not reported, since discordance with absolute values may lead to misinterpretation of CBC data. Current Interpretive Data was last revised on 2017. Testing performed by: [facility], [place], [address] Basophil pct 0.6 % [facility] ([place]) Comment: Interpretive Data Percent cell count reference ranges are not reported, since discordance with absolute values may lead to misinterpretation of CBC data. Current Interpretive Data was last revised on 2017. Testing performed by: [facility], [place], [address] Blood 12/03/2024 8:30 AM CDT 12/03/2024 8:58 AM CDT us Chalino Chapa MD LAB BLOOD ORDERABLES Aylin freedman Result [facility] ([place]) 1 [facility] Department [place] [address] * (ABNORMAL) CBC with auto differential (12/03/2024 8:30 AM CDT) WBC 1.58(L) 3.80 - 9.90 K/cumm Comment:Testing performed by : [place], [address] Hgb 8.1(L) 11.9 - 15.5 g/dL [facility] ([place]) Comment:Testing performed by : [facility], [place], [address] Hct 24.2(L) 35.6 - 45.5 % [facility] ([place]) Comment:Testing performed by : [place], [address] Plt 156 150 - 400 K/cumm [facility] ([place]) Comment:Testing performed by : [place], [address] MPV 11.6 9.1 - 12.3 fL [facility] ([place]) Comment:Testing performed by : [facility], [place], [address] RBC 2.11(L) 3.90 - 5.20 M/cumm [facility] ([place]) Comment:Testing performed by : [place], [address] MCV 114.7(H) 81.3 - 96.4 fL [facility] ([place]) Comment:Testing performed by : [place], [address] MCH 38.4(H) 27.1 - 33.3 pg [facility] ([place]) Comment:Testing performed by : [place], MCHC 33.5 32.3 - 35.7 g/dL [facility] ([place]) Comment:Testing performed by : [facility], [place], R[place] CV 23.4(H) 11.1 - 14.9 % [facility] ([place]) Comment:Testing performed by : [facility], [place], [place] SD 94.7(H) 35.7 - 48.1 fL [facility] ([place]) Comment:Testing performed by : [facility], [place], [address] NRBC abs 0.00 0.00 - 0.01 K/cumm [facility] ([place]) Comment:Testing performed by : [place], [address] Morphologic Screen Results confirmed by manual morphology review. [facility] ([place]) Comment:Testing performed by : [facility], [place], [address] Blood 12/03/2024 8:30 AM CDT 12/03/2024 8:58 AM CDT us Chalino Chapa MD LAB BLOOD ORDERABLES Aylin freedman Result [facility] ([place]) 1 [facility] [place] [address] * (ABNORMAL) Comprehensive metabolic panel (12/03/2024 8:30 [...] BLOOD ORDERABLES Aylin freedman Result SABRA ROGERS ([place]) 1 [facility] Department [place] [address] * (ABNORMAL) Blood smear review (11/29/2024 8:25 AM CDT) RBC morphology Consistent with RBC Indicies Comment:Testing performed by : [facility], [facility], [place], [address] Anisocytosis Moderate(A) [facility] R [facility] ([place]) Comment:Testing performed by : [facility], [facility], [place], [address] Microcytes 3-7/HPF(A) SABRA Silva ([place]) Comment:Testing performed by : [facility], [facility], [place], [address] Macrocytes 3-7/HPF(A) SABRA A [facility] ([place]) Comment:Testing performed by : [facility], [facility], [place], [address] Elliptocytes 3-7/HPF(A) [facility] ([place]) Comment:Testing performed by : [facility], [facility], [place], [address] Teardrop cells 3-7/HPF(A) [facility] ER [facility] ([place]) Comment:Testing performed by : [facility], [place], [address] Platelet estimate Adequate [facility] ([place]) Comment:Testing performed by : [facility], [facility], [place], [address] Blood 11/29/2024 8:25 AM CDT 11/29/2024 8:43 AM CDT us Chalino Chapa MD LAB BLOOD ORDERABLES Aylin l Result SABRA ROGERS ([place]) 1 [facility] Department [place] [address] * (ABNORMAL) Differential, auto (11/29/2024 8:25 AM CDT) Neutrophil abs 1.31(L) 1.50 - 6.50 K/cumm Comment:Testing performed by : [facility], [facility], [place], [address] Imm gran abs 0.01 0.00 - 0.10 K/cumm [facility] ([place]) Comment:Testing performed by : [facility], [facility], [place], [address] Lymphocyte abs 0.84 0.80 - 3.30 K/cumm [facility] ([place]) Comment:Testing performed by : [facility], [facility], [place], [address] Monocyte abs 0.18(L) 0.20 - 0.80 K/cumm [facility] ([place]) Comment:Testing performed by : [facility], [facility], [place], [address] Eosinophil abs 0.03 0.00 - 0.50 K/cumm [facility] ([place]) Comment:Testing performed by : [facility], [facility], [place], [address] Basophil abs 0.01 0.00 - 0.10 K/cumm [facility] ([place]) Comment:Testing performed by : [facility], [place], [address] Neutrophil pct 55.0 % [facility] ([place]) Comment: Interpretive Data Percent cell count reference ranges are not reported, since discordance with absolute values may lead to misinterpretation of CBC data. Current Interpretive Data was last revised on 2017. Testing performed by: [place], [address] Imm gran pct 0.4 % [facility] ([place]) Comment: Interpretive Data Percent cell count reference ranges are not reported, since discordance with absolute values may lead to misinterpretation of CBC data. Current Interpretive Data was last revised on 2017. Testing performed by: [place], [address] Lymphocyte pct 35.3 % [facility] ([place]) Comment: Interpretive Data Percent cell count reference ranges are not reported, since discordance with absolute values may lead to misinterpretation of CBC data. Current Interpretive Data was last revised on 2017. Testing performed by: [place], [address] Monocyte pct 7.6 % [facility] ([place]) Comment: Interpretive Data Percent cell count reference ranges are not reported, since discordance with absolute values may lead to misinterpretation of CBC data. Current Interpretive Data was last revised on 2017. Testing performed by: [facility], [place], [address] Eosinophil pct 1.3 % [facility] ([place]) Comment: Interpretive Data Percent cell count reference ranges are not reported, since discordance with absolute values may lead to misinterpretation of CBC data. Current Interpretive Data was last revised on 2017. Testing performed by: [facility], [place], [address] Basophil pct 0.4 % [facility] ([place]) Comment: Interpretive Data Percent cell count reference ranges are not reported, since discordance with absolute values may lead to misinterpretation of CBC data. Current Interpretive Data was last revised on 2017. Testing performed by: [facility], [place], [address] Blood 11/29/2024 8:25 AM CDT 11/29/2024 8:43 AM CDT us Chalino Chapa MD LAB BLOOD ORDERABLES Aylin freedman Result [facility] ([place]) 1 [facility] Department [place] [address] * (ABNORMAL) CBC with auto differential (11/29/2024 8:25 AM CDT) WBC 2.38(L) 3.80 - 9.90 K/cumm Comment:Testing performed by : [place], [address] Hgb 7.9(L) 11.9 - 15.5 g/dL [facility] ([place]) Comment:Testing performed by : [place], [address] Hct 24.1(L) 35.6 - 45.5 % [facility] ([place]) Comment:Testing performed by : [facility], [place], [address] Plt 158 150 - 400 K/cumm [facility] ([place]) Comment:Testing performed by : [place], [address] MPV 11.1 9.1 - 12.3 fL [facility]PAOLA [facility] ([place]) Comment:Testing performed by : [place], [address] RBC 2.11(L) 3.90 - 5.20 M/cumm [facility] ([place]) Comment:Testing performed by : [facility], [place], [address] MCV 114.2(H) 81.3 - 96.4 fL [facility] ([place]) Comment:Testing performed by : [place], [address] MCH 37.4(H) 27.1 - 33.3 pg [facility] ([place]) Comment:Testing performed by : [facility], [place], [address] MCHC 32.8 32.3 - 35.7 g/dL [facility] ([place]) Comment:Testing performed by : [facility], [place], [address] RDW CV Not Measured 11.1 - 14.9 % [facility] ([place]) Comment:Testing performed by : [facility], [place], [address] RDW SD Not Measured 35.7 - 48.1 fL [facility] ([place]) Comment:Testing performed by : [place], [address] NRBC abs 0.00 0.00 - 0.01 K/cumm [facility] ([place]) Comment:Testing performed by : [facility], [place], [address] Blood 11/29/2024 8:25 AM CDT 11/29/2024 8:43 AM CDT us Chalino Chapa MD LAB BLOOD ORDERABLES Aylin freedman Result SABRA ROGERS ([place]) [address] [place] [address] Department [place] [address] * ABO/Rh (11/29/2024 8:25 AM CDT) ABO/Rh O Positive Comment:Testing performed by : [place], [address] Blood 11/29/2024 8:25 AM CDT 11/29/2024 8:40 AM CDT Narrative [facility] ([place]) - 11/29/2024 9:17 AM CDT Has the patient had Daratumumab or Isatuximab in the past 6 months?->No Chalino Chapa MD LAB BLOOD BANK TEST ORDER LAITH Final Result AMYPAOLA ROGERS ([place]) 1 [facility] Department [place] [address] * Antibody screen (11/29/2024 8:25 AM CDT) Rivera, indirect, Gel Interpretation Negative ABSC Comment:Testing performed by : [place], [address] Blood 11/29/2024 8:25 AM CDT 11/29/2024 8:40 AM CDT Narrative [facility]RA ROGERS ([place]) - 11/29/2024 9:17 AM CDT Has the patient had Daratumumab or Isatuximab in the past 6 months?->No Chalino Chapa MD LAB BLOOD BANK TEST ORDER LAITH Final Result Performing Organization Address City/[facility] Co de Phone Number SABRA SUE ([place]) 1 [facility] Department [place] [address] * (ABNORMAL) CBC with auto differential (11/26/2024 9:50 AM CDT) Pathologist [facility] WBC 1.44(L) 3.80 - 9.90 K/cumm Comment:Testing performed by : [place], [address] Hgb 7.7(L) 11.9 - 15.5 g/dL [facility] ([place]) Comment:Testing performed by : [place], [address] Hct 24.4(L) 35.6 - 45.5 % [facility] ([place]) Comment:Testing performed by : [place], [address] Plt 146(L) 150 - 400 K/cumm [facility] ([place]) Comment:Testing performed by : [place], [address] MPV 11.0 9.1 - 12.3 fL SABRA ROGERS ([place]) Comment:Testing performed by : [facility], [facility], [place], [address] RBC 2.13(L) 3.90 - 5.20 M/cumm [facility] ([place]) Comment:Testing performed by : [facility], [place], [place], MCV 114.6(H) 81.3 - 96.4 fL [facility] ([place]) Comment:Testing performed by : [facility], [place], [place], MCH 36.2(H) 27.1 - 33.3 pg [facility] ([place]) Comment:Testing performed by : [place], [place], MCHC 31.6(L) 32.3 - 35.7 g/dL [facility] ([place]) Comment:Testing performed by : [facility], [place], RDW CV 24.3(H) 11.1 - 14.9 % [facility] ([place]) Comment:Testing performed by : [facility], [place], RDW SD 97.2(H) 35.7 - 48.1 fL [facility] ([place]) Comment:Testing performed by : [facility], [place], NRBC abs 0.00 0.00 - 0.01 K/cumm [facility] ([place]) Comment:Testing performed by : [facility], [place], Blood 11/26/2024 9:50 AM CDT 11/26/2024 10:13 AM CDT us Chalino Chaap MD LAB BLOOD ORDERABLES Aylin l Result SABRA ROGERS ([place]) [address] [place] [address] Department [place] [address] * (ABNORMAL) Manual Differential (11/26/2024 9:50 AM CDT) Differential Manual Comment:Testing performed by : [facility], [place], [address] Cells Counted 100 [facility] ([place]) Comment:Testing performed by : [facility], [facility], [place], [address] Neutrophil abs 0.81(L) 1.50 - 6.50 K/cumm [facility] ([place]) Comment:Testing performed by : [facility], [facility], [place], [address] Imm gran abs 0.03 0.00 - 0.10 K/cumm [facility] ([place]) Comment:Testing performed by : [facility], [facility], [place], [address] Lymphocyte abs 0.46(L) 0.80 - 3.30 K/cumm [facility] ([place]) Comment:Testing performed by : [facility], [facility], [place], [address] Monocyte abs 0.04(L) 0.20 - 0.80 K/cumm [facility] ([place]) Comment:Testing performed by : [facility], [place], [address] Eosinophil abs 0.10 0.00 - 0.50 K/cumm [facility] ([place]) Comment:Testing performed by : [facility], [place], [address] Neutrophil pct 54.0 % [facility] ([place]) Comment: Interpretive Data Percent cell count reference ranges are not reported, since discordance with absolute values may lead to misinterpretation of CBC data. Current Interpretive Data was last revised on 2017. Testing performed by: [facility], [place], [address] Lymphocyte pct 32.0 % [facility] ([place]) Comment: Interpretive Data Percent cell count reference ranges are not reported, since discordance with absolute values may lead to misinterpretation of CBC data. Current Interpretive Data was last revised on 2017. Testing performed by: [facility], [place], [address] Monocyte pct 3.0 % [facility] ([place]) Comment: Interpretive Data Percent cell count reference ranges are not reported, since discordance with absolute values may lead to misinterpretation of CBC data. Current Interpretive Data was last revised on 2017. Testing performed by: [facility], [place], [address] Eosinophil pct 7.0 % [facility] ([place]) Comment: Interpretive Data Percent cell count reference ranges are not reported, since discordance with absolute values may lead to misinterpretation of CBC data. Current Interpretive Data was last revised on 2017. Testing performed by: [facility], [facility], [place], [address] Band Neutrophil pct 2.0 0.0 - 5.0 % [facility] ([place]) Comment:Testing performed by : [facility], [facility], [place], [address] Myelocyte pct 2.0(H) 0.0 - 0.0 % [facility] ([place]) Comment:Testing performed by : [facility], [place], [address] RBC morphology Consistent with RBC Indicies [facility] ([place]) Comment:Testing performed by : [facility], [place], [address] Platelet estimate Automated Count Confirmed SABRA ROGERS ([place]) Comment:Testing performed by : [facility], [place], [address] Blood 11/26/2024 9:50 AM CDT 11/26/2024 10:13 AM CDT Chalino Chapa MD LAB BLOOD ORDERABLES Aylin freedman Result SABRA ROGERS ([place]) 1 [facility] Department [place] [address] * (ABNORMAL) Differential, auto (11/19/2024 10:10 AM CDT) Neutrophil abs 1.05(L) 1.50 - 6.50 K/cumm [facility] ([place]) Comment:Testing performed by : [facility] [address], Medical [address], [place] [address] Imm gran abs 0.00 0.00 - 0.10 K/cumm [facility] ([place]) Comment:Testing performed by : [facility] [address], Medical [address], [place] [address] Lymphocyte abs 0.50(L) 0.80 - 3.30 K/cumm [facility] ([place]) Comment:Testing performed by : [facility] [address], Medical Office [address], [place] [address] Monocyte abs 0.14(L) 0.20 - 0.80 K/cumm [facility] ([place]) Comment:Testing performed by : [facility] [address], Medical Office [address], [place] [address] Eosinophil abs 0.02 0.00 - 0.50 K/cumm [facility] ([place]) Comment:Testing performed by : [facility] [address], Medical Office [address], [place] [address] Basophil abs 0.02 0.00 - 0.10 K/cumm [facility] ([place]) Comment:Testing performed by : [facility] [address], Medical Office [address], [place] [address] Neutrophil pct 60.6 % [facility] ([place]) Comment: Interpretive Data Percent cell count reference ranges are not reported, since discordance with absolute values may lead to misinterpretation of CBC data. Current Interpretive Data was last revised on 2022. Testing performed by: [facility] [address], Medical Office [facility] [address], [place] [address] Imm gran pct 0.0 % [facility] ([place]) Comment: Interpretive Data Percent cell count reference ranges are not reported, since discordance with absolute values may lead to misinterpretation of CBC data. Current Interpretive Data was last revised on 2022. Testing performed by: [facility] [address], Medical Office [facility] [address], [place] [address] Lymphocyte pct 28.9 % [facility] ([place]) Comment: Interpretive Data Percent cell count reference ranges are not reported, since discordance with absolute values may lead to misinterpretation of CBC data. Current Interpretive Data was last revised on 2022. Testing performed by: [facility] [address], Medical Office [address], [place] [address] Monocyte pct 8.1 % [facility] ([place]) Comment: Interpretive Data Percent cell count reference ranges are not reported, since discordance with absolute values may lead to misinterpretation of CBC data. Current Interpretive Data was last revised on 2022. Testing performed by: [facility] [address], Medical Office [facility] [address], [place] [address] Eosinophil pct 1.2 % EMELINA ROGERS ([place]) Comment: Interpretive Data Percent cell count reference ranges are not reported, since discordance with absolute values may lead to misinterpretation of CBC data. Current Interpretive Data was last revised on 2022. Testing performed by: [facility] [address], Medical Office [facility] [address], [place] [address] Basophil pct 1.2 % SABRA ROGERS ([place]) Comment: Interpretive Data Percent cell count reference ranges are not reported, since discordance with absolute values may lead to misinterpretation of CBC data. Current Interpretive Data was last revised on 2022. Testing performed by: [facility] [address], Medical Office [facility] [address] [facility] [address], [place] [address] Blood 11/19/2024 10:1 0 AM CDT 11/19/2024 10:10 AM CDT us Chalino Chapa MD LAB BLOOD ORDERABLES Aylin l Result SABRA ROGERS ([place]) 1 [facility] Department [place] [address] * (ABNORMAL) CBC with auto differential (11/19/2024 10:10 AM CDT) WBC 1.73(L) 3.80 - 9.90 K/cumm SABRA ROGERS ([place]) Comment:Testing performed by : [facility] [address], Medical Office [facility] [address], [place] [address] Hgb 8.4(L) 11.9 - 15.5 g/dL SABRA ROGERS ([place]) Comment:Testing performed by : [facility] [address], Medical Office [facility] [address], [place] [address] Hct 25.6(L) 35.6 - 45.5 % SABRA ROGERS ([place]) Comment:Testing performed by : [facility] [address], Medical Office [facility] [address], [place] [address] Plt 119(L) 150 - 400 K/cumm [facility] ([place]) Comment:Testing performed by : [facility] [address], Medical Office [facility] [address], [place] [address] MPV 10.6 9.1 - 12.3 fL [facility] ([place]) Comment:Testing performed by : [facility] [address], Medical Office [facility] B [facility] [address], [place] [address] RBC 2.29(L) 3.90 - 5.20 M/cumm [facility] ([place]) Comment:Testing performed by : [facility] [address], Medical Office [facility] B [facility] [address], [place] [address] MCV 111.8(H) 81.3 - 96.4 fL [facility] ([place]) Comment:Testing performed by : [facility] [address], Medical Office [facility] B [facility] [address], [place] [address] MCH 36.7(H) 27.1 - 33.3 pg [facility] ([place]) Comment:Testing performed by : [facility] [address], Medical Office [facility] B [facility] [address], [place] [address] MCHC 32.8 32.3 - 35.7 g/dL [facility] ([place]) Comment:Testing performed by : [facility] [address], Medical Office [facility] B [facility] [address], [place] [address] RDW CV 24.9(H) 11.1 - 14.9 % [facility] ([place]) Comment:Testing performed by : [facility] [address], Medical Office [facility] B [facility] [address], [place] [address] RDW SD 96.8(H) 35.7 - 48.1 fL [facility] ([place]) Comment:Testing performed by : [facility] [address], Medical Office [facility] [address], [place] [address] Blood 11/19/2024 10:1 0 AM CDT 11/19/2024 10:10 AM CDT Narrative [facility] ([place]) - 11/19/2024 10:13 AM CDT 11/19, 11/26, 12/03 us Chalino Chapa MD LAB BLOOD ORDERABLES Aylin l Result Performing Organization Address City/[facility]/ZIP Co de Phone Number SABRA ROGERS ([place]) 1 [facility] Department of [address] [place] [address] * Transfuse RBC (11/14/2024 1:18 PM CDT) Blood us Chalino Chapa MD BLOOD TRANSFUSION ORDERAB LES Final Result * Prepare RBC: 1 Units (11/14/2024 11:24 AM CDT) Units requested 1 Comment:Testing performed by : [facility], [place], [address] Units requested Ready EMMY ROGERS ([place]) Comment:Testing performed by : [place], [address] Blood 11/14/2024 11:2 4 AM CDT 11/14/2024 11:24 AM CDT Narrative SABRA ROGERS ([place]) - 11/14/2024 11:24 AM CDT 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 (All products are leukoreduced and CMV- safe)->No Chalino Chapa MD BLOOD BANK PRODUCT ORDERA BLES Final Result Performing Organization Address City/[facility]/ZIP Co de Phone Number SABRA ROGERS ([place]) 1 [facility] Department of [address] [place] [address] * Prepare RBC (11/14/2024 11:22 AM CDT) Unit Number [id number] Product code [id number] SABRA ROGERS ([place]) Blood Expiration Date [id number] [facility] ([place]) Product Blood Type (for scanning) 5100 [facility] ([place]) Product Blood Type OPOS SABRA ROGERS ([place]) Dispense Status DISPENSED SABRA ROGERS ([place]) us Chalino Chapa MD BLOOD BANK PRODUCT ORDERA BLES Final Result SABRA [facility] ([place]) [address] [place] [address] Department [place] [address] * (ABNORMAL) Differential, auto (11/14/2024 9:50 AM CDT) Neutrophil abs 0.90(L) 1.50 - 6.50 K/cumm Comment:Testing performed by : [facility], [place], [address] Imm gran abs 0.01 0.00 - 0.10 K/cumm [facility] ([place]) Comment:Testing performed by : [facility], [place], [address] Lymphocyte abs 0.46(L) 0.80 - 3.30 K/cumm [facility] ([place]) Comment:Testing performed by : [facility], [place], [address] Monocyte abs 0.18(L) 0.20 - 0.80 K/cumm [facility] ([place]) Comment:Testing performed by : [place], [address] Eosinophil abs 0.03 0.00 - 0.50 K/cumm [facility] ([place]) Comment:Testing performed by : [facility], [place], [address] Basophil abs 0.01 0.00 - 0.10 K/cumm [facility] ([place]) Comment:Testing performed by : [place], [address] Neutrophil pct 56.7 % [facility] ([place]) Comment: Interpretive Data Percent cell count reference ranges are not reported, since discordance with absolute values may lead to misinterpretation of CBC data. Current Interpretive Data was last revised on 2017. Testing performed by: [place], [address] Imm gran pct 0.6 % [facility] ([place]) Comment: Interpretive Data Percent cell count reference ranges are not reported, since discordance with absolute values may lead to misinterpretation of CBC data. Current Interpretive Data was last revised on 2017. Testing performed by: [facility], [place], [address] Lymphocyte pct 28.9 % [facility] ([place]) Comment: Interpretive Data Percent cell count reference ranges are not reported, since discordance with absolute values may lead to misinterpretation of CBC data. Current Interpretive Data was last revised on 2017. Testing performed by: [facility] [place], [address] Monocyte pct 11.3 % [facility] ([place]) Comment: Interpretive Data Percent cell count reference ranges are not reported, since discordance with absolute values may lead to misinterpretation of CBC data. Current Interpretive Data was last revised on 2017. Testing performed by: [place], [address] Eosinophil pct 1.9 % [facility] ([place]) Comment: Interpretive Data Percent cell count reference ranges are not reported, since discordance with absolute values may lead to misinterpretation of CBC data. Current Interpretive Data was last revised on 2017. Testing performed by: [facility], [facility], [place], [address] Basophil pct 0.6 % [facility] ([place]) Comment: Interpretive Data Percent cell count reference ranges are not reported, since discordance with absolute values may lead to misinterpretation of CBC data. Current Interpretive Data was last revised on 2017. Testing performed by: [facility], [place], [address] Blood 11/14/2024 9:50 AM CDT 11/14/2024 10:09 AM CDT us Chalino Chapa MD LAB BLOOD ORDERABLES Aylin l Result [facility] ([place]) [address] [place] [address] Department [place] [address] * (ABNORMAL) CBC with auto differential (11/14/2024 9:50 AM CDT) WBC 1.59(L) 3.80 - 9.90 K/cumm Comment:[facility] : [facility] [place], Hgb 7.2(L) 11.9 - 15.5 g/dL [facility] ([place]) Comment:Testing performed by : [facility], [place], [place], Hct 22.7(L) 35.6 - 45.5 % [facility] ([place]) Comment:Testing performed by : [facility], [place], [place], Plt 131(L) 150 - 400 K/cumm [facility] ([place]) Comment:Testing performed by : [facility], [place], MPV 11.3 9.1 - 12.3 fL [facility] ([place]) Comment:Testing performed by : [facility], [place], RBC 2.05(L) 3.90 - 5.20 M/cumm [facility] ([place]) Comment:Testing performed by : [facility], [place], MCV 110.7(H) 81.3 - 96.4 fL [facility] ([place]) Comment:Testing performed by : [facility], [place], MCH 35.1(H) 27.1 - 33.3 pg [facility] ([place]) Comment:Testing performed by : [facility], [place], MCHC 31.7(L) 32.3 - 35.7 g/dL [facility] ([place]) Comment:Testing performed by : [facility], [place], RDW CV Not Measured 11.1 - 14.9 % [facility] ([place]) Comment:Testing performed by : [facility], [place], RDW SD Not Measured 35.7 - 48.1 fL [facility] ([place]) Comment:Testing performed by : [facility], [place], Morphologic Screen Results confirmed by manual morphology review. [facility] ([place]) Comment:Testing performed by : [facility], [place], Blood 11/14/2024 9:50 AM CDT 11/14/2024 10:09 AM CDT Chalino Chapa MD LAB BLOOD ORDERABLES Aylin l Result [facility] ([place]) [address] [facility] Department [place] [address] * ABO/Rh (11/14/2024 9:50 AM CDT) ABO/Rh O Positive Comment:Testing performed by : [facility], [facility], [place], [address] Blood 11/14/2024 9:50 AM CDT 11/14/2024 10:12 AM CDT Narrative [facility] ([place] - 11/14/2024 10:58 AM CDT 11/19, 11/26, 12/03 Has the patient had Daratumumab or Isatuximab in the past 6 months?->Unknown us Chalino Chapa MD LAB BLOOD BANK TEST ORDER LAITH Final Result Performing Organization Address [facility] Co de Phone Number [facility]RA [facility] ([place]) [address] [facility] [place] [address] * Crossmatch (11/14/2024 9:50 AM CDT) Crossmatch Compatible [facility]RA Silva [facility]) Unit number for crossmatch [id number] [facility] ([place]) Blood 11/14/2024 9:50 AM CDT 11/14/2024 10:12 AM CDT Chalino Chapa MD LAB BLOOD BANK TEST ORDER LAITH Final Result [facility] ([place]) [address] [facility] [place] [address] * Antibody screen (11/14/2024 9:50 AM CDT) Rivera, indirect, Gel Interpretation Negative ABSC Comment:Testing performed by : [facility], [place], [address] Blood 11/14/2024 9:50 AM CDT 11/14/2024 10:12 AM CDT Narrative [facility] ([place]) - 11/14/2024 10:58 AM CDT 11/19, 11/26, 12/03 Has the patient had Daratumumab or Isatuximab in the past 6 months?->Unknown us Chalino Chapa MD LAB BLOOD BANK TEST ORDER LAITH Final Result Performing Organization Address City/[facility] Co de Phone Number [facility] ([place]) [address] [place] [address] Department of [address] [place] [address] * (ABNORMAL) Erythropoietin (11/11/2024 11:30 AM CDT) Erythropoietin 781(H) 2.6 - 18.5 mIUnits/m L [facility] ref Lab Comment: Test Performed by: [facility] [address] [place] [address] Tin Roofer: Lloyd Olmstead Ph.D.; CLIA# [id number] Testing performed by: [place], [address] Blood 11/11/2024 11:3 0 AM CDT 11/11/2024 11:53 AM CDT Chalino Chapa MD LAB BLOOD ORDERABLES Aylin l Result Performing Organization Address City/[facility]/ZIP Co de Phone Number [facility] ([place]) [address] [facility] Department of [address] [place] [address] [facility] ref Lab * ABO/Rh (11/11/2024 11:30 AM CDT) ABO/Rh O Positive Comment:Testing performed by : [facility], [place], [address] Blood 11/11/2024 11:3 0 AM CDT 11/11/2024 11:53 AM CDT Narrative [facility] ([place]) - 11/11/2024 12:32 PM CDT Has the patient had Daratumumab or Isatuximab in the past 6 months?->Unknown us Chalino Chapa MD LAB BLOOD BANK TEST ORDER LAITH Final Result [facility] ([place]) 1 [facility] [address] [place] [address] * Antibody screen (11/11/2024 11:30 AM CDT) Rivera, indirect, Gel Interpretation Negative ABSC Comment:Testing performed by : [facility], [facility], [place], [address] Blood 11/11/2024 11:3 0 AM CDT 11/11/2024 11:53 AM CDT Narrative [facility] ([place]) - 11/11/2024 12:32 PM CDT Has the patient had Daratumumab or Isatuximab in the past 6 months?->Unknown us Chalino Chapa MD LAB BLOOD BANK TEST ORDER LAITH Final Result Performing Organization Address [facility] Co de Phone Number [facility] ([place]) 1 [facility] [address] [place] [address] * (ABNORMAL) Folate (11/11/2024 11:30 AM CDT) [facility] Folic acid 3.5(L) >=5.0 ng/mL [facility] ([place]) Blood 11/11/2024 11:3 0 AM CDT 11/11/2024 11:53 AM CDT Chalino Chapa MD LAB BLOOD ORDERABLES Aylin l Result [facility] ([place]) 1 [facility] [address] [place] [address] * Vitamin B12 (11/11/2024 11:30 AM CDT) Vitamin B12 1,022 230 - 1,250 pg/mL [facility] ([place]) Blood 11/11/2024 11:3 0 AM CDT 11/11/2024 11:53 AM CDT us Chalino Chapa MD LAB BLOOD ORDERABLES Aylin freedman Result [facility] ([place]) [address] [facility] Department [place] [address] * (ABNORMAL) Differential, auto (11/11/2024 10:45 AM CDT) Neutrophil abs 1.08(L) 1.50 - 6.50 K/cumm [facility] ([place]) Comment:Testing performed by : [facility] [address], Medical Office [facility] [address], [place] [address] Imm gran abs 0.02 0.00 - 0.10 K/cumm [facility] ([place]) Comment:Testing performed by : [facility] [address], Medical Office [facility] [address], [place] [address] Lymphocyte abs 0.55(L) 0.80 - 3.30 K/cumm [facility] ([place]) Comment:Testing performed by : [facility] [address], Medical Office [facility] [address], [place] [address] Monocyte abs 0.17(L) 0.20 - 0.80 K/cumm [facility] ([place]) Comment:Testing performed by : [facility] [address], Medical Office [facility] [address], [place] [address] Eosinophil abs 0.04 0.00 - 0.50 K/cumm [facility] ([place]) Comment:Testing performed by : [facility] [address], Medical Office [facility] [address], [place] [address] Basophil abs 0.01 0.00 - 0.10 K/cumm [facility] ([place]) Comment:Testing performed by : [facility] [address], Medical Office [facility] [address], [place] [address] Neutrophil pct 57.8 % [facility] ([place]) Comment: Interpretive Data Percent cell count reference ranges are not reported, since discordance with absolute values may lead to misinterpretation of CBC data. Current Interpretive Data was last revised on 2022. Testing performed by: [facility] [address], Medical Office [address], [place] [address] Imm gran pct 1.1 % [facility] ([place]) Comment: Interpretive Data Percent cell count reference ranges are not reported, since discordance with absolute values may lead to misinterpretation of CBC data. Current Interpretive Data was last revised on 2022. Testing performed by: [facility] [address], Medical Office [address], [place] [address] Lymphocyte pct 29.4 % [facility] ([place]) Comment: Interpretive Data Percent cell count reference ranges are not reported, since discordance with absolute values may lead to misinterpretation of CBC data. Current Interpretive Data was last revised on 2022. Testing performed by: [facility] [address], Medical Office [address], [place] [address] Monocyte pct 9.1 % [facility] ([place]) Comment: Interpretive Data Percent cell count reference ranges are not reported, since discordance with absolute values may lead to misinterpretation of CBC data. Current Interpretive Data was last revised on 2022. Testing performed by: [facility] [address], Medical Office [address], [place] [address] Eosinophil pct 2.1 % [facility] ([place]) Comment: Interpretive Data Percent cell count reference ranges are not reported, since discordance with absolute values may lead to misinterpretation of CBC data. Current Interpretive Data was last revised on 2022. Testing performed by: [facility] [address], Medical Office [address], [place] [address] Basophil pct 0.5 % [facility] ([place]) Comment: Interpretive Data Percent cell count reference ranges are not reported, since discordance with absolute values may lead to misinterpretation of CBC data. Current Interpretive Data was last revised on 2022. Testing performed by: [facility] [address], Medical Office [address], [place] [address] Blood 11/11/2024 10:4 5 AM CDT 11/11/2024 11:00 AM CDT Milla Armenta CERAMIC ENGINEERING PROFESSOR LAB BLOOD ORDERABLES Final Result [facility] ([place]) [address] [facility] Department [place] [address] * (ABNORMAL) CBC with auto differential (11/11/2024 10:45 AM CDT) WBC 1.87(L) 3.80 - 9.90 K/cumm [facility] ([place]) Comment:Testing performed by : [facility] [address], Medical Office [facility] [address], [place] [address] Hgb 7.2(L) 11.9 - 15.5 g/dL [facility] ([place]) Comment:Testing performed by : [facility] [address], Medical Office [facility] [address], [place] [address] Hct 22.5(L) 35.6 - 45.5 % [facility] ([place]) Comment:Testing performed by : [facility] [address], Medical Office [facility] [address], [place] [address] Plt 111(L) 150 - 400 K/cumm [facility] ([place]) Comment:Testing performed by : [facility] [address], Medical Office [facility] [address], [place] [address] MPV 11.0 9.1 - 12.3 fL [facility] ([place]) Comment:Testing performed by : [facility] [address], Medical Office [facility] [address], [place] [address] RBC 2.03(L) 3.90 - 5.20 M/cumm [facility] ([place]) Comment:Testing performed by : [facility] [address], Medical Office [facility] [address], [place] [address] MCV 110.8(H) 81.3 - 96.4 fL [facility] ([place]) Comment:Testing performed by : [facility] [address], Medical Office [facility] [address], [place] [address] MCH 35.5(H) 27.1 - 33.3 pg [facility] ([place]) Comment:Testing performed by : [facility] [address], Medical Office [facility] [address], [place] [address] MCHC 32.0(L) 32.3 - 35.7 g/dL [facility] ([place]) Comment:Testing performed by : [facility] [address], Medical Office [facility] [address], [place] [address] RDW CV 26.2(H) 11.1 - 14.9 % [facility] ([place]) Comment:Testing performed by : [facility] [address], Medical Office [facility] [address], [place] [address] RDW SD 96.8(H) 35.7 - 48.1 fL [facility] ([place]) Comment:Testing performed by : [facility] [address], Medical Office [facility] [address], [place] [address] Blood 11/11/2024 10:4 5 AM CDT 11/11/2024 11:00 AM CDT Milla Armenta CERAMIC ENGINEERING PROFESSOR LAB BLOOD ORDERABLES Final Result [facility] ([place]) 1 [facility] Department [place] [address] * eGFR (11/11/2024 8:11 AM CDT) eGFR [...] was last reviewed 2021. Testing performed by: [facility], [facility], [place], [address] Blood 11/11/2024 8:11 AM CDT 11/11/2024 11:14 AM CDT us Chalino Chapa MD LAB BLOOD ORDERABLES Aylin freedman Result [facility] ([place]) 1 [facility] Department [place] [address] * (ABNORMAL) Comprehensive metabolic panel (11/11/2024 8:11 AM CDT) Sodium 138 135 - 145 mmol/L [facility] ([place]) Potassium, pl 3.9 3.3 - 4.9 mmol/L [facility] ([place]) Chloride 103 97 - 110 mmol/L [facility] ([place]) CO2 30 22 - 32 mmol/L [facility]) Anion gap 5 2 - 15 mmol/L [facility] ([place]) BUN 12 6 - 25 mg/dL [facility] ([place]) Creatinine 0.46(L) 0.60 - 1.10 mg/dL [facility] ([place]) Glucose 158 70 - 199 mg/dL [facility] ([place]) Comment: Interpretive Data Fasting glucose >/= [...] ORDERABLES Aylin freedman Result Performing Organization Address City/State/[facility] Co de Phone Number [facility] ([place]) [address] [facility] Department [place] [address] from Last 3 Months Insurance MEDICARE MEDICARE [facility] MEDICARE SUPPLEMENT [address] [place] [id number] MEDICARE [facility] MEDICARE SUPPLEMENT Advance Directives For more information, please contact: [phone] Documents on File Type Date Recorded Patient Quality Assurance Qa Lab Technician Expl anation ADVANCE DIRECTIVE 12/20/2023 8:01 AM Power of Pill Packer-Medical * Full Code (Latest Code Status on File) Date Activated Date Inactivated Comments 09/28/2024 7:50 PM 10/07/2024 7:51 PM * Full Code Date Activated Date Inactivated Comments 12/11/2023 12:19 PM 12/19/2023 6:45 PM Care Teams Snapper On Relationship Specialty Start Date End Date Bryan Davey DO PCP - General Internal Medicine 11/14/23 Prateek King MD [address] [place] [address] Consulting Physician Urology 10/07/24 Sherman Alvarez DO [address] [place] [address] Medical Oncologist/Plant Culture Manager Hematology and Oncology 10/07/24
--- OUTSIDE RECORDS SUMMARY | 2025-01-23 15:11 | XMS_ITS | Encounter Summary ---
Author Organization [facility] Address [address] [place] [address] Phone Care Team Providers Care Weaving Instructor Name Role Phone Bryan Davey DO Primary Care Provider Prateek King MD Unavailable Sherman Alvarez DO Unavailable [phone] Encounter Details Date Type Department Care Team (Late st Contact Info) Description 12/18/2024 Results Follow-Up [facility] Medicine Physicians [facility] Oncology [address] [place] [address] [address] Theresa Gutierres RN CBC with auto differential, Differential, auto Social History Tobacco Use Types Packs/Day Years Used Date Smoking Tobacco: Never Smokeless Tobacco: Never Alcohol Use Standard Drinks/Week Comments Yes 0 (1 standard drink = 0.6 oz pur e alcohol) [facility] Utilities Answer Date Recorded In the past 12 months has [employer] electric, gas, oil, or water company [...] often do you attend chur ch or christian services? Never 09/30/2024 Do you belong to [...] any time in the past 12 m [facility], were you homeless or living in a custodial (including now)? No 10/02/2024 Personal Safety Answer Date Recorded Have you ever been in or are you currently in a harmful physical or emotional relationship or is someone making you feel afraid or unsafe? 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 Gender Identity Not on file Sexual Orientation Not on file documented as of this encounter Plan of Treatment Not on file documented as of this encounter Visit Diagnoses Not on filedocumented in this encounter Care Teams Weaving Instructor Relationship Specialty Start Date End Date Bryan Davey DO PCP - General Internal Medicine 11/14/23 Prateek King MD [address] [place] [address] Consulting Physician Urology 10/07/24 Sherman Alvarez DO [address] [place] [address] Medical Oncologist/Airport Control Operator Hematology and Oncology 10/07/24 documented as of this encounter
--- OUTSIDE RECORDS SUMMARY | 2025-01-23 15:11 | XMS_ITS | Clinical Summary ---
Author Organization [facility] [place] Address [address] [place] [address] Care Team Providers Care Snaker Driving Horses Name Role Phone Unavailable Primary Care Provider [...]
--- OUTSIDE RECORDS SUMMARY | 2025-01-23 15:12 | XMS_ITS | Encounter Summary ---
Author Organization [facility] Address [address] [facility] [place] [address] Care Team Providers Care Can Dragger Name Role Phone Mervat Kelley MAPPING PILOT-SUPERVISOR BORDER DEPARTMENT Primary Care Provider + Encounter Details Date Type Department Care Team (Late st Contact Info) Description 10/06/2022 Lab Requisition [facility] - Pathology Lab [address] [place] [address] Jesus Louis MD [address] [address] Illness, unspecified Social History Tobacco [...] Report Bone Marrow Patholog y Report Case: [id number] Authorizing Provider: Jesus Louis MD Collected: 10/05/2022 09:15 AM Ordering Location: [facility] Pathology Lab Received: 10/06/2022 01:27 PM Pathologist: Linda Hauser MD Specimens: A) - Bone Marrow Clot, Fluoro-guided bone marrow aspiration B) - Bone Marrow Core, Fluoro-guided bone marrow core bx 10/07/2022 1:40 PM CDT [facility] Final Diagnosis Bone marrow, aspirate, [...] morphology: normal. 10/07/2022 1:40 PM [facility] Bone Marrow Aspirate The [...] appropriately reactive. 10/07/2022 1:40 PM [facility] Bone Marrow Core Biopsy [...] an increased number of early erythroid progenitors. LM252s demonstrates additional, more mature erythroid lineage cells, confirming erythroid hyperplasia. Myeloperoxidase is positive in relatively fewer numbers of myeloid precursors. CD3 and CD20 show a normal number and distribution of T-cells and B-cells, respectively. Reticulin staining shows no significant marrow fibrosis (MF-0), and trichrome staining shows no collagen deposition. 10/07/2022 1:40 PM [facility] Flow Cytometry Summary Concurrent flow cytometry ([id number]) shows no evidence of non-Hodgkin lymphoma or high-grade myeloid neoplasm. 10/07/2022 1:40 PM [facility] Clinical History 82 year old woman with macrocytic anemia. 10/07/2022 1:40 PM CDT [facility] Materials Received Received are 22 slides and 3 blocks (A1, A2; B1) labeled [id number] along with a copy of the outside pathology report. The materials originate from [facility], [address] [place] [address] [place] [id number]. All original materials are returned to the referring institution, along with a copy of our final report. 10/07/2022 1:40 PM CDT [facility] Pathologist Location at [facility] 10/07/2022 1:40 PM CDT [facility] Disclaimer The performance characteristics of [...] attending (teaching) pathologist. 10/07/2022 1:40 PM CDT [facility] Embedded Images 10/07/2022 1:40 PM CDT [facility] Pathology/Cytology BONE MARROW SPECIMEN / Unknown 10/05/2022 9:15 AM CDT 10/06/2022 1:27 PM CDT Miscellaneous samples (specimen) BONE MARROW SPECIMEN / Unknown 10/05/2022 9:15 AM CDT 10/06/2022 1:27 PM CDT us Jesus Louis MD LAB - PATHOLOGY/CYTOLOGY ORDERAB LES Final Result [facility] [address] [place], [place] [id number] [place] [address] documented in this encounter Visit Diagnoses Diagnosis Illness, unspecified documented in this encounter Care Teams Can Dragger Relationship Specialty Start Date End Date Mervat Kelley APRN-DAVIS [address] [phone] PCP - General 11/24/21 documented as of this encounter
--- OUTSIDE RECORDS SUMMARY | 2025-01-23 15:12 | XMS_ITS | Clinical Summary ---
Author Organization [facility] Facility Address [address] [address] Care Team Providers Care Supervisor Ski Production Name Role Phone Unavailable Primary Care Provider [...]
--- OUTSIDE RECORDS SUMMARY | 2025-01-23 15:12 | XMS_ITS | Clinical Summary ---
Author Organization [facility] Address [address], [address] [address] Phone Care Team Providers Care Paper Cone Machine Operator Name Role Phone Mervat Kelley APRN Primary Care Provider [phone] Medications polyethylene glycol (MIRALAX) Powder Use entire [...] age to complete this topic Insurance MEDICARE [facility] Care Teams Paper Cone Machine Operator Relationship Specialty Start Date End Date Mervat Kelley APRN PCP - General Advanced Practice Nurse 06/12/17
--- OUTSIDE RECORDS SUMMARY | 2025-01-23 15:12 | XMS_ITS | Encounter Summary ---
Author Organization [facility] Address [facility] [facility] [place] [address] Care Team Providers Care Co Founder And Cto Name Role Phone Andie Ang MD Primary Care Provider + [phone] Mervat Kelley Primary Care Provider + Andie Ang MD Primary Care Provider + [phone] Mervat Kelley Primary Care Provider + Andie Ang MD Primary Care Provider + [phone] Mervat Kelley Primary Care Provider + Encounter Details Date Type Department Care Team (Late st Contact Info) Description 11/15/2018 Lab Requisition [facility] Care DermPath Lab [address] [facility] [place] [address] aSrath De Guzman MD [address] [place] [address] Social History Tobacco Use Types Packs/Day Years [...] AM CDT) Case Report Dermatopathology Report Case: [id number] Authorizing Provider: Sarath De Guzman MD Collected: 11/14/2018 12:00 AM Ordering Location: [facility] DermPath Lab Received: 11/15/2018 12:29 PM Pathologist: [...] specimen consists of a shave biopsy measuring [id number]. Jar 0. 12:59 PM CDT DERMATOPATHOLOGY LABORATORY [...] determined by the Dermatopathology Laboratory at [facility], directed by Dr. Frederick Schofield. These tests need not be, and therefore are not, approved by the [place] Food and Drug Administration. The tests are used for clinical purposes. Billing Codes Specimen Charges Stain Charges 61679 1 12:59 PM CDT DERMATOPATHOLOGY LABORATORY Embedded Images 12:59 PM CDT DERMATOPATHOLOGY LABORATORY Pathology/Cytolog y TISSUE SPECIMEN FROM SKIN / Unknown 11/14/2018 11/15/2018 12:29 PM CDT Sarath De Guzman MD LAB - PATHOLOGY/CYTOLOGY ORD ERABLES Final Result DERMATOPATHOLOGY LABORATORY [facility] - Department of Dermatology [address], [address]th [place] [address], [facility] [phone] documented in this encounter Visit Diagnoses Not on filedocumented in this encounter Care Teams Co Founder And Cto Relationship Specialty Start Date End Date Andie Ang MD [address] [phone] PCP - General 08/18/17 09/29/21 Mervat Kelley APRN-OPHTHALMIC ASST [address] [place] [phone] PCP - General Nurse Practitioner 09/30/21 09/30/21 Andie Ang MD [address] [phone] PCP - General 10/01/21 10/12/21 Mervat Kelley APRN-OPHTHALMIC ASST [address] [phone] PCP - General 10/13/21 10/31/21 Andie Ang MD [address] [phone] PCP - General 11/01/21 11/23/21 Mervat Kelley APRN-OPHTHALMIC ASST [address] [phone] PCP - General 11/24/21 documented as of this encounter
--- OUTSIDE RECORDS SUMMARY | 2025-01-23 15:12 | XMS_ITS ---
Author Organization [facility] Address [address] [place] [address] Care Team Providers Care Photocomposition Keyboard Operator Name Role Phone Bryan Davey DO Primary Care Provider Prateek King MD Unavailable Sherman Alvarez DO Unavailable [phone] Active Problems Problem Noted Date Diagnosed Date [...] or MDS* Plan Start Date:11/26/2023 Plan Provider:Chalino hCapa MD Linked Problems MDS (myelodysplastic syndrom e) ([facility]) Treatment Medications Current Day (Day [...] (06/06/2018): Added automatically from request for surgery [id number]
--- OUTSIDE RECORDS SUMMARY | 2025-01-23 15:12 | XMS_ITS | Clinical Summary ---
Author Organization [facility] Address [address] [place] [address] Care Team Providers Care Palletizer Name Role Phone Mervat Kelley GERA-FISH HATCHERY MAN Primary Care Provider + Source Comments [facility],non-owned Affiliates and Associated Physician Practices is amultiple site organization consisting of ambulatory clinics and hospital sitesin [place], [place], [place] and [place]. This disclosure is being madepursuant to the Care Everywhere program and may not contain all information available regarding this patient. Last updated 17.[facility] Allergies Active Allergy Reactions Criticality Noted Date [...] daily Active fish oil/omega-3 fatty acids (Promega;Cardi -Leggett 3) 1000 MG capsule Take 2 (two) [...] 71.7 kg (158 lb) 04/06/2022 10:56 AM [employer] Height 152.4 cm (5') 12/22/2021 12:39 PM [...] age to complete this topic Insurance MEDICARE PENDING SALE TO [employer] MEDICARE Advance Directives * Full Code (Latest Code Status on File) Date Activated Date Inactivated Comments 09/29/2021 4:59 AM 09/30/2021 2:57 PM Care Teams Palletizer Relationship Specialty Start Date End Date Mervat Kelley APRN-CNP [address] [phone] PCP - General 11/24/21
--- OUTSIDE RECORDS SUMMARY | 2025-01-23 15:12 | XMS_ITS | Encounter Summary ---
Author Organization [facility] Address [address] [facility] [address] Care Team Providers Care Medical Staff Coordinator Name Role Phone Mervat Kelley PARTS COUNTER CLERK-HIM DIRECTOR Primary Care Provider + Encounter Details Date Type Department Care Team (Late st Contact Info) Description 10/05/2022 Lab Requisition [facility] - Pathology Lab [address] [place] [address] Jesus Louis MD [address] [phone] Anemia, unspecified Social History Tobacco [...] AM CDT) Case Report Flow Cytometry Case: [id number] Authorizing Provider: Jesus Louis MD Collected: 10/05/2022 09:15 AM Ordering Location: [facility] Pathology Lab Received: 10/05/2022 02:15 PM Pathologist: Linda Hauser MD Specimen: Bone Marrow 10/05/2022 4:45 PM CDT [facility] Final Diagnosis Bone marrow, flow cytometric immunophenotypic analysis: - No evidence of non-Hodgkin lymphoma or high-grade myeloid neoplasm. - See interpretation. 10/05/2022 4:45 PM CDT [facility] at 1644 CDT Flow Cytometry Interpretation The bone marrow specimen has a viability of 85%. Within the lymphocyte gate, there is no monoclonal B-cell population identified (kappa:lambda ratio = 2.3:1). There is no expanded T-cell population seen. By CD34, 1.1% of all events analyzed are blasts. A bone marrow aspirate smear prepared from the flow cytometry specimen is reviewed for supplier quality specialist purposes. The bone marrow specimen shows no [...] # [id number] 10/05/2022 4:45 PM CDT [facility] Number of markers 10 were performed. A-2 Flow CD10 A-3 Flow CD13 A-5 Flow CD20 A-1 Flow CD5 A-4 Flow CD19 A-6 Flow CD33 A-7 Flow CD34 A-8 Flow CD45 A-9 [place]+CD19+ A-10 Lambda+CD19+ 10/05/2022 4:45 PM CDT [facility] PATH[facility] Pathologist Location at [facility] 10/05/2022 4:45 PM CDT U PATHOLOGY LAB Disclaimer Test performed at [facility], [address] [place], [place], [address]. *The established laboratory minimum viability is 70%. [...] LAB Embedded Images 4:45 PM CDT [facility] Pathology/Cytolo gy BONE MARROW SPECIMEN / Unknown 10/05/2022 9:15 AM CDT 10/05/2022 2:15 PM CDT Jesus Louis MD LAB - PATHOLOGY/CYTOLOGY ORDERAB LES Final Result Performing Organization Address City/State/RUST Co de Phone Number [facility] [address] [place] [address]. [address] [phone] documented in this encounter Visit Diagnoses Diagnosis Anemia, unspecified documented in this encounter Care Teams Medical Staff Coordinator Relationship Specialty Start Date End Date Mervat Kelley APRN-CNP [address] [phone] PCP - General 11/24/21 documented as of this encounter
[2025-01-23 15:57] LABS: Add Urine Microscopic? NO; Appearance Urine Clear (Clear); Glucose Urine UA Negative (Negative); Leukocyte Esterase Ur Negative LEU/UL (Negative); Nitrate Urine Negative (Negative); Specific Grav Ur > 1.045 (1.001-1.035)
--- NOTE | 2025-01-23 16:45 | PM.IMHP ---
H&P: HPI History of Present Illness Date/Time: 01/23/25 16:45 Chief Complaint: Diarrhea for 7 days Narrative: 84-year-old female with a past medical history of interstitial lung disease, benign adrenal adenoma, anxiety, hypothyroidism, diverticulitis, GERD, osteoporosis, and MDS presented to the ED on 01/23/2025 with complaints of diarrhea for the past 7 days. At times she is incontinent of stool. Patient reports 8 or 9 diarrhea stools since last night. Denies seeing any blood in her stool. No abdominal pain but had 1 episode of emesis on 01/22 after eating something ?that didn't agree with her.? Denies fever, chills, body aches. No chest pain or shortness of breath. No recent antibiotics. Patient has MDS and gets a unit of packed red blood cells almost weekly. Last chemo September 2024. Initial vital signs BP 90/60, heart rate 98, respirations 14, afebrile and 93% on room air Labs reveal WBC 2.8, hemoglobin 7.1, total bilirubin 2.1, ALT 46. UA with no signs of infection Chest x-ray after 1 L bolus revealed ground-glass and interstitial opacities bilaterally suggestive of pulmonary congestion Abdomen pelvis CT reveals a 1 cm mass in the left adrenal concerning for malignancy (this has been present for years), fluid-filled distended small bowel loops, decompressed distal small bowel loops may represent partial small bowel obstruction secondary to a ventral wall hernia containing small bowel loops Patient desatted to 86% on room air and was placed on 2 L per nasal cannula Review of Systems Review of Systems: All systems reviewed & are unremarkable except as noted in HPI and below PMFSH Past Medical History Medical History Port-A-Cath in place Acute on chronic anemia Rectal bleeding Macrocytic anemia Rhinitis ILD (interstitial lung disease) Vulvar inflammation Obesity DVT prophylaxis Elevated LFTs Hiatal hernia Adrenal adenoma benign Hepatic steatosis and liver cyst Hypothyroidism Pneumonia due to COVID-19 virus COVID-19 virus infection Acute respiratory failure with hypoxia Acid reflux Hypertension Irritable bowel Migraines Osteoporosis Surgical History Surgical History History of colonoscopy with polypectomy most recent December 2018 with edematous polyps History of reconstructive repair of rectocele (~1995) History of bilateral cataract extraction History of medial meniscus repair of right knee (~2014) S/P laparoscopic-assisted sigmoidectomy (~08/2018) due to chronic diverticulitis History of carpal tunnel surgery of right wrist (~2015) History of hemorrhoidectomy (~2011) History of vaginal hysterectomy (~1995) without oophorectomy History of ankle surgery (~2000) ORIF right ankle Family History Family History Sibling Hypertension Hyperlipidemia Thyroid disease it sounds as if the patient sister likely had Graves disease with a thyroidectomy and then became ill because her thyroid hormone was not replaced. Acute myocardial infarction Brother early-onset Artificial cardiac pacemaker brother Mother Hypertension Thyroid disease It sounds as if her mother likely had Graves disease Father Emphysema lung Grandparent Lung cancer Other Carcinoma of colon Family history of malignant neoplasm of breast Family history of pancreatic cancer Social History Social History Social History: The patient lives with her of 54 years. They raised a son and a daughter. Their son as 3 daughters and the daughter has a son and a daughter. She is a lifelong nonsmoker. She did have a lot of secondhand smoke exposure as a child. She rarely drinks alcohol and only in small amounts. Primary care provider: Bryan Davey DO Smoking status: Never smoker Second hand tobacco smoke exposure: Yes (10-15 years ago) Alcohol intake: never Alcohol use details: Only rare alcohol use in small amounts. 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 Gender identity (if verbalized by the patient): Female Spiritual care concerns: No Meds Home Medications and Allergies Home Medications ?Medication ?Instructions ?Recorded ?Confirmed ?Type lansoprazole 15 mg capsule,delayed 15 mg PO DAILY 04/11/22 01/23/25 History release (Prevacid 24Hr) loratadine 10 mg tablet (Claritin) 10 mg PO DAILY 04/11/22 01/23/25 History spironolactone 25 mg tablet 25 mg PO DAILY 12/26/22 01/23/25 History calcium 500 mg-vitamin D3 100 1 tablet PO DAILY 05/31/23 01/23/25 History unit-vitamin K 40 mcg chewable tablet levothyroxine 75 mcg tablet See Rx Instructions .Route 10/18/24 01/23/25 Rx .COMPLEX #90 tabs clonazepam 0.5 mg tablet 0.25 mg (1/2 x 0.5 mg) PO BID #90 12/23/24 01/23/25 Rx tabs [id number] 1 tablet PO DAILY 01/07/25 01/23/25 History Allergies Allergy/AdvReac Type Severity Reaction Status Date / Time cephalexin AdvReac Mild YEAST Verified 01/23/25 18:37 INFECTION cefdinir AdvReac Unknown Unknown Verified 01/23/25 18:37 clarithromycin AdvReac Unknown Unknown Verified 01/23/25 18:37 clindamycin AdvReac Unknown Other Verified 01/23/25 18:37 codeine AdvReac Unknown Nervousness Verified 01/23/25 18:37 dexamethasone AdvReac Unknown Unknown Verified 01/23/25 18:37 doxycycline AdvReac Unknown Unknown Verified 01/23/25 18:37 morphine AdvReac Unknown Headache Verified 01/23/25 18:37 tobramycin AdvReac Unknown Unknown Verified 01/23/25 18:37 Vital Signs Vital Signs - 24 hr 01/23/25 13:26 Temperature 98.2 F Pulse Rate 98 Respiratory Rate 14 Blood Pressure 90/60 L Pulse Oximetry 93 Exam Narrative: GENERAL: non-toxic appearing, in no acute distress. HEAD: Normocephalic, atraumatic. EYES: PERRLA. Conjunctivae clear. NOSE: Normal no drainage. THROAT: Pharynx clear, no exudate. NECK: Trachea midline. No adenopathy, no masses. RESPIRATORY: Airway patent, respirations nonlabored. CTA. CARDIOVASCULAR: Regular rate and rhythm. PAC to right chest BREASTS: Defer GASTROINTESTINAL: Abdomen is soft, round and nontender. No organomegaly. Bowel sounds hypoactive in all quadrants. Ventral hernia just above the umbilicus not painful and easily reducible. GENITOURINARY: Defer MUSCULOSKELETAL: Moves all extremities. No gross deformities. No calf tenderness. SKIN: Warm, dry, normal color. NEURO: A&O X4. Speech clear PSYCHIATRIC: Normal interaction H&P: Results Labs Labs: Short CBC 01/23/25 Range/Units 14:22 WBC 2.8 L (4.5-10.0) K/mm3 Hgb 7.1 L (12.0-15.0) g/dL Hct 21.8 L (37.0-47.0) % Plt Count 165 (150-375) k/mm3 BMP 01/23/25 14:22 Sodium 138 Potassium 3.5 Chloride 100 Carbon Dioxide 32 H BUN 10 Creatinine 0.56 L Glucose 104 Calcium 8.7 Liver Function 01/23/25 Range/Units 14:22 Total Bilirubin 2.1 H (0.2-1.3) mg/dL AST 33 (14-36) U/L ALT 46 H (6-35) U/L Alkaline Phosphatase 48 (38-126) U/L Albumin 3.6 (3.5-5.1) g/dL Urine 01/23/25 Range/Units 15:48 Urine Color Yellow (Yellow) Urine Appearance Clear (Clear) Urine pH 7.5 (5.0-9.0) Ur Specific [place] > 1.045 H (1.001-1.035) Urine Protein Negative (Negative) mg/dL Urine Glucose (UA) Negative (Negative) mg/dL Assessment and Plan Assessment and plan (1) Partial small bowel obstruction: Code(s): K56.600 - Partial intestinal obstruction, unspecified as to cause Status: Acute Assessment and Plan: Possible partial small-bowel obstruction as read on CT with fluid-filled distended small bowel loops and decompressed distal small bowel loops. Patient does have a ventral hernia that is easily reducible and not painful. Patient denies abdominal pain. She has had 1 episode of emesis on 01/22. Diarrhea for the past 7 days. Of note, patient was seen by her primary on January 07 with complaints of diarrhea, stating her recently had C diff. A stool sample provided on 01/05 was negative for infectious organisms and ova and parasites. -NPO with sips for meds for now -surgery consult for recommendation and review of CT -no need for NGT -strict I&O -stool sample sent -monitor CBC and electrolytes -encourage ambulation (2) Myelodysplastic syndrome: Code(s): D46.9 - Myelodysplastic syndrome, unspecified Status: Chronic Assessment and Plan: Sees Dr. Chapa with [facility] monthly. Has H&H checked weekly and states for the past 5 weeks she has consistently required packed red blood cells every week. She states her oncologist wants her transfused for a hemoglobin below 8. 7.1 on arrival. -1 unit packed red blood cells given -trend CBC (3) Hypoxia: Code(s): R09.02 - Hypoxemia Status: Acute Assessment and Plan: Patient denies shortness of breath or chest pain but will have some dyspnea after walking a long distance when her hemoglobin is low. 1 L normal saline bolus given in ED. Subsequent chest x-ray showed possible pulmonary congestion. Patient required 2 L O2 per nasal cannula in the ED after desatting to 85% on room air. -20 mg Lasix IV after transfusion -supplemental O2 per nasal cannula. Wean as tolerated -monitor respiratory status Plan Diet: NPO GI prophylaxis: Pantoprazole DVT prophylaxis: SCDs lines/drains: Port-A-Cath Fluids: 1 L NS Code status: Full Quality VTE Prophylaxis VTE prophylaxis: mechanical ordered Hospitalist MIPS Advance Care Plan I have confirmed that the patient's Advanced Care Plan is present, code status is documented, or surrogate decision maker is listed in patient medical record.: Yes Medication Reconciliation I have utilized all available resources to obtain, update and review the patients current medications (includes all prescriptions, OTC, herbals, cannabis, and nutritional supplements).: Yes
[2025-01-23] MEDS: SODIUM CHLORIDE 0.9% IV 250 ML 30 ML IV CONT (16:58)
--- NOTE | 2025-01-23 18:13 | PC.NURSE ---
waited to transport pt upstairs until blood transfusion was completed.
[2025-01-23] MEDS: clonazePAM (*CRX) 0.25 MG TABLET PO (21:13)
[2025-01-23] MEDS: FUROSEMIDE INJ 40 MG/4 ML VIAL 20 MG IV PUSH (21:20)
[2025-01-24] VITALS (7 sets, daily range): BP systolic 140–144; BP diastolic 42–52; PULSE 82–92; RESP 16–18; TEMP 36.5–37; O2SAT 92–99; BMI 29.0
[2025-01-24 05:14] LABS: Hematocrit 23.7 % (37.0-47.0); Hemoglobin 7.5 g/dL (12.0-15.0); Immature Granulocyte Percent A 1.5 % (0-0.5); Lymphocytes Absolute Auto 0.70 K/mm3 (0.9-3.2); Mean Corpuscular HGB Conc 31.6 g/dl (32-36); Mean Corpuscular Hemoglobin 32.1 pg (26-34); Mean Corpuscular Volume 101.3 fl (80-100); Nucleated Red Blood Cells Absolute Auto 0.000 K/mm3 (0.0-0.012); Nucleated Red Blood Cells Perc 0.0 % (0.0-0.2); Platelet Count Result 145 k/mm3 (150-375); Red Blood Count 2.34 M/mm3 (4.2-5.4); White Blood Count 2.0 K/mm3 (4.5-10.0)
[2025-01-24 05:36] LABS: Alanine Aminotransferase 50 U/L (6-35); Albumin Level 3.2 g/dL (3.5-5.1); Alkaline Phosphatase 38 U/L (38-126); Anion Gap 4 mmol/L (4-12); Aspartate Amino Transferase 38 U/L (14-36); Bilirubin,Total 2.2 mg/dL (0.2-1.3); Blood Urea Nitrogen 8 mg/dL (7-17); Calcium 8.3 mg/dL (8.4-10.2); Carbon Dioxide 34 mmol/L (22-30); Chloride 100 mmol/L (98-107); Estimated CRCL calculation 54 ml/min; Estimated Glomerular Filt Rate > 60; Glucose 94 mg/dL (65-110); Magnesium 1.5 mg/dL (1.6-2.3); Potassium 3.2 mmol/L (3.4-5.0); Sodium 138 mmol/L (137-145); Total Protein 5.4 g/dL (6.3-8.2)
[2025-01-24 05:54] LABS: Ovalocytes 1+; Schistocytes None Seen
--- NOTE | 2025-01-24 07:35 | P.PNIM_ITS ---
Progress Note: A&P Assessment and Plan (1) Partial small bowel obstruction: Code(s): K56.600 - Partial intestinal obstruction, unspecified as to cause Status: Acute Assessment and Plan: Possible partial small-bowel obstruction as read on CT with fluid-filled distended small bowel loops and decompressed distal small bowel loops. Patient does have a ventral hernia that is easily reducible and not painful. Patient denies abdominal pain. She has had 1 episode of emesis on 01/22. Diarrhea for the past 7 days. Of note, patient was seen by her primary on January 07 with complaints of diarrhea, stating her recently had C diff. A stool sample provided on 01/05 was negative for infectious organisms and ova and parasites. * NPO with sips for meds for now * strict I&O * stool sample sent * Monitor I&Os, vital signs, neuro status and patient is a fall risk * Monitor serum electrolytes and CBC * General surgery consult to further evaluate small bowel obstruction if the patient needs surgical intervention * No surgical intervention indicated at this time * Monitor with serial exams and labs * No NG tube at this time * Advance diet as tolerated, start with full liquids today (2) Myelodysplastic syndrome: Code(s): D46.9 - Myelodysplastic syndrome, unspecified Status: Chronic Assessment and Plan: Sees Dr. Chapa with [facility] monthly. Has H&H checked weekly and states for the past 5 weeks she has consistently required packed red blood cells every week. She states her oncologist wants her transfused for a hemoglobin below 8. 7.1 on arrival. * 1 unit packed red blood cells given * trend CBC * 01/24: Hgb 7.5, up from 7.1 * Has an appointment on Monday with Oncologist Dr. Chapa for possibly going back on Chemotherapy (3) Hypoxia: Code(s): R09.02 - Hypoxemia Status: Acute Assessment and Plan: Patient denies shortness of breath or chest pain but will have some dyspnea after walking a long distance when her hemoglobin is low. 1 L normal saline bolus given in ED. Subsequent chest x-ray showed possible pulmonary congestion. Patient required 2 L O2 per nasal cannula in the ED after desatting to 85% on room air. * 20 mg Lasix IV after transfusion * monitor respiratory status * Home O2 evaluation prior to discharge * 01/24: O2 saturation 97% on 2 L NC, wean as tolerated * Likely secondary to low hemoglobin due to history of MDS (4) Adrenal mass: Code(s): E27.8 - Other specified disorders of adrenal gland Status: Acute Assessment and Plan: * Abd/pelvis CT:1 cm mass in the left adrenal gland concerning for malignancy. Follow-up CT using adrenal protocol or MRI is recommended. * Patient is aware this, take spironolactone (5) Hypomagnesemia: Code(s): E83.42 - Hypomagnesemia Status: Acute Assessment and Plan: * 01/24:Mg 1.5 * Will give 1 g magnesium sulfate * Repeat labs, replace as needed (6) Hypokalemia: Code(s): E87.6 - Hypokalemia Status: Acute Assessment and Plan: * 01/24: K 3.2 * Takes spironolactone, will hold at this time * Monitor daily labs, replace as needed Plan Diet: NPO GI prophylaxis: Pantoprazole DVT prophylaxis: SCDs lines/drains: Port-A-Cath Fluids: 1 L NS Code status: Full Subjective Date/time seen: 01/24/25 07:35 Interval history: 84-year-old female with a past medical history of interstitial lung disease, benign adrenal adenoma, anxiety, hypothyroidism, diverticulitis, GERD, osteoporosis, and MDS presented to the ED on 01/23/2025 with complaints of di arrhea for the past 7 days. 01/24/2025 The patient sitting comfortably in bed at time of examination, denies any chest pain, shortness of breath, nausea/vomiting or abdominal pain at this time. Still on 2 L nasal cannula, will wean as tolerated. General surgery saw patient this morning, no plan for surgical intervention, will advance diet as tolerated and monitor with serial exams/labs. Patient otherwise feeling much better today. Review of Systems Review of Systems: All systems reviewed & are unremarkable except as noted in HPI and below Exam Narrative: GENERAL: non-toxic appearing, in no acute distress. HEAD: Normocephalic, atraumatic. EYES: PERRLA. Conjunctivae clear. NOSE: Normal no drainage. THROAT: Pharynx clear, no exudate. NECK: Trachea midline. No adenopathy, no masses. RESPIRATORY: Airway patent, respirations nonlabored. CTA. CARDIOVASCULAR: Regular rate and rhythm. PAC to right chest BREASTS: Defer GASTROINTESTINAL: Abdomen is soft, round and nontender. No organomegaly. Isaak wel sounds hypoactive in all quadrants. Ventral hernia just above the umbilicus not painful and easily reducible. GENITOURINARY: Defer MUSCULOSKELETAL: Moves all extremities. No gross deformities. No calf tenderness. SKIN: Warm, dry, normal color. NEURO: A&O X4. Speech clear PSYCHIATRIC: Normal interaction Objective Data Vital Signs Vital Signs: Vital Signs - 24 hr 01/23/25 13:26 01/23/25 17:03 01/23/25 17:19 Temperature 98.2 F 99.1 F 98.7 F Pulse Rate 98 91 91 Respiratory Rate 14 18 18 Blood Pressure 90/60 L 117/60 115/72 Pulse Oximetry 93 99 100 Oxygen Delivery Oxygen Flow Rate 01/23/25 18:05 01/23/25 20:55 01/23/25 21:01 Temperature 98.6 F Pulse Rate 80 92 Respiratory Rate 16 16 Blood Pressure 111/73 90/49 L Pulse Oximetry 98 78 L 94 Oxygen Delivery Oxygen Flow Rate 01/23/25 21:07 01/24/25 05:40 Temperature 97.9 F Pulse Rate 82 Respiratory Rate 16 Blood Pressure 140/52 L Pulse Oximetry 94 96 Oxygen Delivery Nasal Cannula Oxygen Flow Rate 2 Intake/Output Intake/Output: Intake & Output 01/21/25 01/22/25 01/23/25 01/24/25 23:59 23:59 23:59 23:59 Intake Total 1350 50 Balance 1350 50 Meds/Results Medications: Active Medications Generic Name Dose Route Start Last Admin Trade Name Andrewq PRN Reason Stop Dose Admin Calcium Carbonate 500 mg 01/24/25 09:00 Calcium/Vitamin D 500 Mg/5 Mcg (200 I.U.) Tablet PO DAILY LILLIAM Clonazepam 0.25 mg 01/23/25 20:05 01/23/25 21:13 Clonazepam (*Crx) 0.25 Mg Tablet PO 0.25 mg BID LILLIAM Administration Levothyroxine Sodium 75 mcg 01/24/25 06:30 01/24/25 06:06 Levothyroxine Sodium 75 Mcg Tablet BY MOUTH Not Given DAILY@0630 [facility] Loratadine 10 mg 01/24/25 09:00 Loratadine 10 Mg Tablet PO DAILY LILLIAM Pantoprazole Sodium 20 mg 01/24/25 09:00 Pantoprazole Sod Sesquihydrate 20 Mg Tab PO QAM LILLIAM Spironolactone 25 mg 01/24/25 09:00 Spironolactone 25 Mg Tablet PO DAILY [facility] Radiology Results: ITS Impressions Chest X-Ray 01/23/25 15:29 IMPRESSION: Groundglass and interstitial opacities bilaterally suggestive of pulmonary congestion. Abdomen/Pelvis CT 01/23/25 15:38 IMPRESSION: 1 cm mass in the left adrenal gland concerning for malignancy. Follow-up CT using adrenal protocol or MRI is recommended. There are fluid-filled distended small bowel loops. Decompressed distal small bowel loops may represent a partial small bowel obstruction secondary to a ventral wall hernia containing small bowel loops. All CT scans at this facility are performed using low dose modulation techniques as appropriate to perform exam including the following: automated exposure control; use of iterative reconstruction technique; adjustment of the mA and/or kV according to patient size (this includes techniques or standardized protocols for targeted exams where dose is matched to indication/reason for ex am). Labs Labs: Laboratory Results - last 24 hr 01/23/25 01/23/25 01/23/25 14:22 14:31 15:33 WBC 2.8 L RBC 2.08 L Hgb 7.1 L Hct 21.8 L MCV 104.8 H MCH 34.1 H MCHC 32.6 RDW 21.2 H Plt Count 165 MPV 11.1 H Immature Gran % (Auto) 1.1 H Neut % (Auto) 68.5 Lymph % (Auto) 21.1 [place] % (Auto) 7.5 Eos % (Auto) 1.1 Baso % (Auto) 0.7 Lymph # (Auto) 0.[address] [place] # (Auto) 0.2 Eos # (Auto) 0.0 Baso # (Auto) 0.0 Abs Immat Gran (auto) 0.03 Absolute Neuts (auto) 1.9 Absolute Nucleated RBC 0.030 H Band Neutrophils % Nucleated RBC % 1.1 H Platelet Estimate Ovalocytes Schistocytes Sodium 138 Potassium 3.5 Chloride 100 Carbon Dioxide 32 H Anion Gap 6 BUN 10 Creatinine 0.56 L Estim Creat Clear Calc 55 Estimated GFR > 60 Glucose 104 Lactic Acid 1.0 Calcium 8.7 Magnesium Total Bilirubin 2.1 H Direct Bilirubin AST 33 ALT 46 H Alkaline Phosphatase 48 Total Protein 6.0 L Albumin 3.6 Lipase 27 Urine Color Urine Appearance Urine pH Ur Specific [place] Urine Protein Urine Glucose (UA) Urine Ketones Ur Blood (Man) Urine Nitrate Urine Bilirubin Urine Urobilinogen Leukocyte Esterase Rfl Blood Type O Positive Antibody Screen Negative Crossmatch See Detail 01/23/25 01/24/25 15:48 05:05 WBC 2.0 L RBC 2.34 L Hgb 7.5 L Hct 23.7 L MCV 101.3 H MCH 32.1 D MCHC 31.6 L RDW 23.2 H Plt Count 145 L MPV 11.1 H Immature Gran % (Auto) 1.5 H Neut % (Auto) 53.6 Lymph % (Auto) 35.7 [place] % (Auto) 5.6 Eos % (Auto) 3.1 Baso % (Auto) 0.5 Lymph # (Auto) 0.[address] [place] # (Auto) 0.1 Eos # (Auto) 0.1 Baso # (Auto) 0.0 Abs Immat Gran (auto) 0.03 Absolute Neuts (auto) 1.1 L Absolute Nucleated RBC 0.000 Band Neutrophils % Not Reportable Nucleated RBC % 0.0 Platelet Estimate Adequate Ovalocytes 1+ Schistocytes None seen Sodium 138 Potassium 3.2 L Chloride 100 Carbon Dioxide 34 H Anion Gap 4 BUN 8 Creatinine 0.57 L Estim Creat Clear Calc 54 Estimated GFR > 60 Glucose 94 Lactic Acid Calcium 8.3 L Magnesium 1.5 L Total Bilirubin 2.2 H Direct Bilirubin 0.0 AST 38 H ALT 50 H Alkaline Phosphatase 38 Total Protein 5.4 L Albumin 3.2 L Lipase Urine Color Yellow Urine Appearance Clear Urine pH 7.5 Ur Specific [place] > 1.045 H Urine Protein Negative Urine Glucose (UA) Negative Urine Ketones Negative Ur Blood (Man) Negative Urine Nitrate Negative Urine Bilirubin Negative Urine Urobilinogen 1.0 Leukocyte Esterase Rfl Negative Blood Type Antibody Screen Crossmatch Quality VTE Prophylaxis VTE prophylaxis: mechanical ordered
[2025-01-24] MEDS: MAGNESIUM SULF 1 GM/D5W 100 ML 1 GM/100 ML BAG IVPB (09:41)
[2025-01-24] MEDS: CALCIUM/VITAMIN D 500 MG/5 MCG (200 I.U.) TABLET PO (09:42)
[2025-01-24] MEDS: SPIRONOLACTONE 25 MG TABLET PO (09:42)
[2025-01-24] MEDS: PANTOPRAZOLE SOD SESQUIHYDRATE 20 MG TAB PO (09:42)
[2025-01-24] MEDS: LORATADINE 10 MG TABLET PO (09:42)
[2025-01-24] MEDS: clonazePAM (*CRX) 0.25 MG TABLET PO ×2 (09:43→16:55)
--- NOTE | 2025-01-24 09:50 | PM.CNGS ---
Assessment and Plan Assessment and plan (1) Partial small bowel obstruction: Code(s): K56.600 - Partial intestinal obstruction, unspecified as to cause Status: Acute Assessment and Plan: Patient presented to the ED last night with 1 week of excessive diarrhea. Denies abdominal pain. 1 episode of emesis two days ago after eating a tuna sandwich and laying down afterwards. had C diff 1-2 months ago. Patient states she tested negative. Hx of diverticulitis - sigmoid colectomy in 2018. No recent illness, travel, or new foods. CT demonstrated decompressed distal small bowel loops that may represent a partial SBO secondary to ventral wall hernia containing small bowel loops. Patient has had the hernia for years and it has never caused her any issues. Easily reducible on exam. No abdominal tenderness. Normal bowel sounds. last Bm yesterday around 10 am. Patient endorses passing flatus. No surgical intervention necessary at this time. Will hold off on NG tube placement as patient denies nausea/vomiting and is having some bowel function. We will continue to monitor with serial exams and labs. (2) Adrenal mass: Code(s): E27.8 - Other specified disorders of adrenal gland Status: Acute Assessment and Plan: CT demonstrated 1 cm mass iin left adrenal gland. Patient is aware of this and takes spironolactone. (3) MDS (myelodysplastic syndrome): Code(s): D46.9 - Myelodysplastic syndrome, unspecified Status: Acute Assessment and Plan: Last chemotherapy in September of 2024. Patient is to received a blood transfusion if Hgb <8. She states that recently she has needed to be transfused every week for low Hgb levels. 7.1 upon admission. Given a unit of leukocyte reduced RBC yesterday. [facility] does have a port in place. (4) Hypokalemia: Code(s): E87.6 - Hypokalemia Status: Acute Assessment and Plan: K+ 3.2 this morning. Magnesium 1.5. Given Mag Sulfate by hospitalist this morning. (5) Hypomagnesemia: Code(s): E83.42 - Hypomagnesemia Status: Acute Assessment and Plan: See above. History of Present Illness Consult details Consult date: 01/24/25 Reason for consult: other (Possible small bowel obstruction) Requesting physician: Andrews,Dora F., INSIGHT LEADER Narrative: Patient is an 84-year-old female with history of diverticulitis (hand assisted laparoscopic sigmoidectomy [place] [address] Cervantes), myelodysplastic syndrome (last chemotherapy in September of 2024), lung disease, and benign adrenal adenoma who we have been asked to see in surgical consultation for a possible small-bowel obstruction. Patient states that 7 days ago she began having copious amounts of diarrhea. She denies any abdominal pain, but endorses loss of appetite. She states that she had not felt nauseous up until 2 days ago after she had a tuna sandwich and laid down afterwards. She felt nauseous and had an episode of emesis. She states that for the past few months she will have an episode of diarrhea and cramping pain roughly every 10 days that goes away on its own. She sometimes takes Colace or MiraLax to relieve constipation. She does state that her was diagnosed with C diff 1-2 months ago. She was having some intermittent diarrhea at the time and went to the lab for testing and reports that she tested negative. Of note, patient has myelodysplastic syndrome, with last chemo treatment in September of 2024. She is to receive a blood transfusion on a weekly basis if her hemoglobin drops below 8.0. She states that over the summer this was stable, but has had to be transfused every week for the past few weeks. Upon arrival to ED, labs demonstrated a white blood cell count of 2.0, hemoglobin 7.1. Potassium 3.2. Normal urinalysis. CT of the abdomen and pelvis demonstrated decompressed distal small bowel loops possibly representing a small bowel obstruction secondary to a ventral wall hernia containing small bowel loops. Denies history of SBO. Patient states that the hernia is chronic and has never caused her any issues. Also noted on the CT was a 1 cm mass in the left adrenal gland. Patient states that this is also chronic and benign. She takes spironolactone for this. Upon my interview, patient denies any pain. Patient's last bowel movement was yesterday around 10:00 a.m. She endorses passing gas this morning. Denies any recent illness, travel, or new foods. Patient currently on 2L O2 nasal cannula. Per chart review she was hypoxic to a level of 78% yesterday evening. She states she has not been on home O2 since she had COVID in 2019 and was on O2 for roughly 4 mos. Given blood transfusion yesterday. [facility] Past Medical History Medical History Port-A-Cath in place Acute on chronic anemia Rectal bleeding Macrocytic anemia Rhinitis ILD (interstitial lung disease) Vulvar inflammation Obesity DVT prophylaxis Elevated LFTs Hiatal hernia Adrenal adenoma benign Hepatic steatosis and liver cyst Hypothyroidism Pneumonia due to COVID-19 virus COVID-19 virus infection Acute respiratory failure with hypoxia Acid reflux Hypertension Irritable bowel Migraines Osteoporosis Surgical History Surgical History History of colonoscopy with polypectomy most recent December 2018 with edematous polyps History of reconstructive repair of rectocele (~1995) History of bilateral cataract extraction History of medial meniscus repair of right knee (~2014) S/P laparoscopic-assisted sigmoidectomy (~08/2018) due to chronic diverticulitis History of carpal tunnel surgery of right wrist (~2015) History of hemorrhoidectomy (~2011) History of vaginal hysterectomy (~1995) without oophorectomy History of ankle surgery (~2000) ORIF right ankle Family History Family History Sibling Hypertension Hyperlipidemia Thyroid disease it sounds as if the patient sister likely had Graves disease with a thyroidectomy and then became ill because her thyroid hormone was not replaced. Acute myocardial infarction Brother early-onset Artificial cardiac pacemaker brother Mother Hypertension Thyroid disease It sounds as if her mother likely had Graves disease Father Emphysema lung Grandparent Lung cancer Other Carcinoma of colon Family history of malignant neoplasm of breast Family history of pancreatic cancer Social History Social History Social History: The patient lives with her of 54 years. They raised a son and a daughter. Their son as 3 daughters and the daughter has a son and a daughter. She is a lifelong nonsmoker. She did have a lot of secondhand smoke exposure as a child. She rarely drinks alcohol and only in small amounts. Primary care provider: Bryan Davey DO Smoking status: Never smoker Second hand tobacco smoke exposure: Yes (10-15 years ago) Alcohol intake: never Alcohol use details: Only rare alcohol use in small amounts. 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 Gender identity (if verbalized by the patient): Female Spiritual care concerns: No Meds Home Medications and Allergies Home Medications ?Medication ?Instructions ?Recorded ?Confirmed ?Type lansoprazole 15 mg capsule,delayed 15 mg PO DAILY 04/11/22 01/23/25 History release (Prevacid 24Hr) loratadine 10 mg tablet (Claritin) 10 mg PO DAILY 04/11/22 01/23/25 History spironolactone 25 mg tablet 25 mg PO DAILY 12/26/22 01/23/25 History calcium 500 mg-vitamin D3 100 1 tablet PO DAILY 05/31/23 01/23/25 History unit-vitamin K 40 mcg chewable tablet levothyroxine 75 mcg tablet See Rx Instructions .Route 10/18/24 01/23/25 Rx .COMPLEX #90 tabs clonazepam 0.5 mg tablet 0.25 mg (1/2 x 0.5 mg) PO BID #90 12/23/24 01/23/25 Rx tabs [id number] 1 tablet PO DAILY 01/07/25 01/23/25 History Allergies Allergy/AdvReac Type Severity Reaction Status Date / Time cephalexin AdvReac Mild YEAST Verified 01/23/25 18:37 INFECTION cefdinir AdvReac Unknown Unknown Verified 01/23/25 18:37 clarithromycin AdvReac Unknown Unknown Verified 01/23/25 18:37 clindamycin AdvReac Unknown Other Verified 01/23/25 18:37 codeine AdvReac Unknown Nervousness Verified 01/23/25 18:37 dexamethasone AdvReac Unknown Unknown Verified 01/23/25 18:37 doxycycline AdvReac Unknown Unknown Verified 01/23/25 18:37 morphine AdvReac Unknown Headache Verified 01/23/25 18:37 tobramycin AdvReac Unknown Unknown Verified 01/23/25 18:37 Vital Signs Vital Signs - 24 hr 01/23/25 13:26 01/23/25 17:03 01/23/25 17:19 Temperature 98.2 F 99.1 F 98.7 F Pulse Rate 98 91 91 Respiratory Rate 14 18 18 Blood Pressure 90/60 L 117/60 115/72 Pulse Oximetry 93 99 100 Oxygen Delivery Oxygen Flow Rate 01/23/25 18:05 01/23/25 20:55 01/23/25 21:01 Temperature 98.6 F Pulse Rate 80 92 Respiratory Rate 16 16 Blood Pressure 111/73 90/49 L Pulse Oximetry 98 78 L 94 Oxygen Delivery Oxygen Flow Rate 01/23/25 21:07 01/24/25 05:40 Temperature 97.9 F Pulse Rate 82 Respiratory Rate 16 Blood Pressure 140/52 L Pulse Oximetry 94 96 Oxygen Delivery Nasal Cannula Oxygen Flow Rate 2 Exam Const: General: comfortable and no acute distress Eyes: General: appearance normal, both eyes and all related structures Neck: Neck: supple Resp: Effort & Inspection: normal respiratory effort Other: 2L O2 nasal canula Cardio: Rate: regular rate GI: Inspection: non-distended GI Palp: Yes Soft to palpation, No Tenderness to palpation present (GI), No Guarding due to palpation present (GI) and Yes Hernia present (easily reducible nontender supraumbilical hernia) Auscultation: normal bowel sounds : General: Yes bladder normal to palpation Skin: General skin exam: normal color and no rashes or lesions noted Neuro: Sensory Exam: normal sensation Extrem: General: normal to inspection Psych: Mental Status: mental status grossly normal Results Labs 01/24/25 05:05 01/24/25 05:05 Labs: Abnormal lab results 01/23/25 01/23/25 01/23/25 Range/Units 14:22 15:33 15:48 WBC 2.8 L (4.5-10.0) K/mm3 RBC 2.08 L (4.2-5.4) M/mm3 Hgb 7.1 L (12.0-15.0) g/dL Hct 21.8 L (37.0-47.0) % MCV 104.8 H (80-100) fl MCH 34.1 H (26-34) pg MCHC (32-36) g/dl RDW 21.2 H (11.5-14.5) % Plt Count (150-375) k/mm3 MPV 11.1 H (7.4-10.4) fl Immature Gran % (Auto) 1.1 H (0-0.5) % Lymph # (Auto) 0.59 L (0.9-3.2) K/mm3 Absolute Neuts (auto) (1.3-6.7) K/mm3 Absolute Nucleated RBC 0.030 H (0.0-0.012) K/mm3 Nucleated RBC % 1.1 H (0.0-0.2) % Potassium (3.4-5.0) mmol/L Carbon Dioxide 32 H (22-30) mmol/L Creatinine 0.56 L (0.7-1.0) mg/dL Calcium (8.4-10.2) mg/dL Magnesium (1.6-2.3) mg/dL Total Bilirubin 2.1 H (0.2-1.3) mg/dL AST (14-36) U/L ALT 46 H (6-35) U/L Total Protein 6.0 L (6.3-8.2) g/dL Albumin (3.5-5.1) g/dL Ur Specific [place] > 1.045 H (1.001-1.035) Crossmatch See Detail 01/24/25 Range/Units 05:05 WBC 2.0 L (4.5-10.0) K/mm3 RBC 2.34 L (4.2-5.4) M/mm3 Hgb 7.5 L (12.0-15.0) g/dL Hct 23.7 L (37.0-47.0) % MCV 101.3 H (80-100) fl MCH (26-34) pg MCHC 31.6 L (32-36) g/dl RDW 23.2 H (11.5-14.5) % Plt Count 145 L (150-375) k/mm3 MPV 11.1 H (7.4-10.4) fl Immature Gran % (Auto) 1.5 H (0-0.5) % Lymph # (Auto) 0.70 L (0.9-3.2) K/mm3 Absolute Neuts (auto) 1.1 L (1.3-6.7) K/mm3 Absolute Nucleated RBC (0.0-0.012) K/mm3 Nucleated RBC % (0.0-0.2) % Potassium 3.2 L (3.4-5.0) mmol/L Carbon Dioxide 34 H (22-30) mmol/L Creatinine 0.57 L (0.7-1.0) mg/dL Calcium 8.3 L (8.4-10.2) mg/dL Magnesium 1.5 L (1.6-2.3) mg/dL Total Bilirubin 2.2 H (0.2-1.3) mg/dL AST 38 H (14-36) U/L ALT 50 H (6-35) U/L Total Protein 5.4 L (6.3-8.2) g/dL Albumin 3.2 L (3.5-5.1) g/dL Ur Specific [place] (1.001-1.035) Crossmatch Diabetes panel 01/23/25 01/24/25 Range/Units 14:22 05:05 Sodium 138 138 (137-145) mmol/L Potassium 3.5 3.2 L (3.4-5.0) mmol/L Chloride 100 100 (98-107) mmol/L Carbon Dioxide 32 H 34 H (22-30) mmol/L BUN 10 8 (7-17) mg/dL Creatinine 0.56 L 0.57 L (0.7-1.0) mg/dL Glucose 104 94 (65-110) mg/dL Calcium 8.7 8.3 L (8.4-10.2) mg/dL AST 33 38 H (14-36) U/L ALT 46 H 50 H (6-35) U/L Alkaline Phosphatase 48 38 (38-126) U/L Total Protein 6.0 L 5.4 L (6.3-8.2) g/dL Albumin 3.6 3.2 L (3.5-5.1) g/dL Calcium panel 01/23/25 01/24/25 Range/Units 14:22 05:05 Calcium 8.7 8.3 L (8.4-10.2) mg/dL Albumin 3.6 3.2 L (3.5-5.1) g/dL Pituitary panel 01/23/25 01/24/25 Range/Units 14:22 05:05 Sodium 138 138 (137-145) mmol/L Potassium 3.5 3.2 L (3.4-5.0) mmol/L Chloride 100 100 (98-107) mmol/L Carbon Dioxide 32 H 34 H (22-30) mmol/L BUN 10 8 (7-17) mg/dL Creatinine 0.56 L 0.57 L (0.7-1.0) mg/dL Glucose 104 94 (65-110) mg/dL Calcium 8.7 8.3 L (8.4-10.2) mg/dL Adrenal panel 01/23/25 01/24/25 Range/Units 14:22 05:05 Sodium 138 138 (137-145) mmol/L Potassium 3.5 3.2 L (3.4-5.0) mmol/L Chloride 100 100 (98-107) mmol/L Carbon Dioxide 32 H 34 H (22-30) mmol/L BUN 10 8 (7-17) mg/dL Creatinine 0.56 L 0.57 L (0.7-1.0) mg/dL Glucose 104 94 (65-110) mg/dL Calcium 8.7 8.3 L (8.4-10.2) mg/dL Total Bilirubin 2.1 H 2.2 H (0.2-1.3) mg/dL AST 33 38 H (14-36) U/L ALT 46 H 50 H (6-35) U/L Alkaline Phosphatase 48 38 (38-126) U/L Total Protein 6.0 L 5.4 L (6.3-8.2) g/dL Albumin 3.6 3.2 L (3.5-5.1) g/dL All other labs normal.
--- NOTE | 2025-01-24 15:03 | PCRCNOTE ---
WENT TO DO HOME O2 EVAL. PT NPO AND HAS NO DISCHARGE PLANS, JUST ADMITTED
[2025-01-24] MEDS: CENTRAL LINE FLUSH 10 ML IV PUSH (20:29)
[2025-01-25] VITALS (12 sets, daily range): BP systolic 163; BP diastolic 60; PULSE 83–103; RESP 18–20; TEMP 36.4; O2SAT 90–97
[2025-01-25] MEDS: CENTRAL LINE FLUSH 10 ML IV PUSH (05:01)
[2025-01-25] MEDS: LEVOTHYROXINE SODIUM 75 MCG TABLET BY MOUTH (05:01)
[2025-01-25] MEDS: clonazePAM (*CRX) 0.25 MG TABLET PO (08:29)
[2025-01-25] MEDS: SPIRONOLACTONE 25 MG TABLET PO (08:29)
[2025-01-25] MEDS: PANTOPRAZOLE SOD SESQUIHYDRATE 20 MG TAB PO (08:29)
[2025-01-25] MEDS: CALCIUM/VITAMIN D 500 MG/5 MCG (200 I.U.) TABLET PO (08:29)
[2025-01-25] MEDS: LORATADINE 10 MG TABLET PO (08:29)
[2025-01-25 08:39] LABS: Hematocrit 24.1 % (37.0-47.0); Hemoglobin 7.6 g/dL (12.0-15.0); Immature Granulocyte Percent A 1.1 % (0-0.5); Lymphocytes Absolute Auto 0.55 K/mm3 (0.9-3.2); Mean Corpuscular HGB Conc 31.5 g/dl (32-36); Mean Corpuscular Hemoglobin 32.5 pg (26-34); Mean Corpuscular Volume 103.0 fl (80-100); Nucleated Red Blood Cells Absolute Auto 0.000 K/mm3 (0.0-0.012); Nucleated Red Blood Cells Perc 0.0 % (0.0-0.2); Platelet Count Result 153 k/mm3 (150-375); Red Blood Count 2.34 M/mm3 (4.2-5.4)
[2025-01-25 09:04] LABS: Alanine Aminotransferase 51 U/L (6-35); Albumin Level 3.4 g/dL (3.5-5.1); Alkaline Phosphatase 43 U/L (38-126); Anion Gap 3 mmol/L (4-12); Aspartate Amino Transferase 35 U/L (14-36); Bilirubin,Total 1.6 mg/dL (0.2-1.3); Blood Urea Nitrogen 8 mg/dL (7-17); Calcium 8.3 mg/dL (8.4-10.2); Carbon Dioxide 36 mmol/L (22-30); Chloride 99 mmol/L (98-107); Estimated CRCL calculation 56 ml/min; Estimated Glomerular Filt Rate > 60; Glucose 112 mg/dL (65-110); Potassium 3.5 mmol/L (3.4-5.0); Sodium 138 mmol/L (137-145); Total Protein 5.5 g/dL (6.3-8.2); White Blood Count 1.8 K/mm3 (4.5-10.0)
[2025-01-25 09:05] LABS: Anisocytosis 2+; Hypochromasia 1+; Schistocytes None Seen
[2025-01-25] MEDS: FILGRASTIM-SNDZ 300 MCG/0.5 ML SYRINGE SUB-Q (10:47)
--- NOTE | 2025-01-25 11:02 | P.PNIM_ITS ---
Progress Note: A&P Assessment and Plan (1) Partial small bowel obstruction: Code(s): K56.600 - Partial intestinal obstruction, unspecified as to cause Status: Acute Assessment and Plan: Possible partial small-bowel obstruction as read on CT with fluid-filled distended small bowel loops and decompressed distal small bowel loops. Patient does have a ventral hernia that is easily reducible and not painful. Patient denies abdominal pain. She has had 1 episode of emesis on 01/22. Diarrhea for the past 7 days. Of note, patient was seen by her primary on January 07 with complaints of diarrhea, stating her recently had C diff. A stool sample provided on 01/05 was negative for infectious organisms and ova and parasites. * NPO with sips for meds for now * strict I&O * stool sample sent * Monitor I&Os, vital signs, neuro status and patient is a fall risk * Monitor serum electrolytes and CBC * General surgery consult to further evaluate small bowel obstruction if the patient needs surgical intervention * No surgical intervention indicated at this time * Monitor with serial exams and labs * No NG tube at this time * Advance diet as tolerated, start with full liquids today (2) Myelodysplastic syndrome: Code(s): D46.9 - Myelodysplastic syndrome, unspecified Status: Chronic Assessment and Plan: Sees Dr. Chapa with [facility] monthly. Has H&H checked weekly and states for the past 5 weeks she has consistently required packed red blood cells every week. She states her oncologist wants her transfused for a hemoglobin below 8. 7.1 on arrival. * 1 unit packed red blood cells given * trend CBC * 01/24: Hgb 7.5, up from 7.1 * Has an appointment on Monday with Oncologist Dr. Chapa for possibly going back on Chemotherapy (3) Hypoxia: Code(s): R09.02 - Hypoxemia Status: Acute Assessment and Plan: Patient denies shortness of breath or chest pain but will have some dyspnea after walking a long distance when her hemoglobin is low. 1 L normal saline bolus given in ED. Subsequent chest x-ray showed possible pulmonary congestion. Patient required 2 L O2 per nasal cannula in the ED after desatting to 85% on room air. * 20 mg Lasix IV after transfusion * monitor respiratory status * Home O2 evaluation prior to discharge * 01/24: O2 saturation 97% on 2 L NC, wean as tolerated * Likely secondary to low hemoglobin due to history of MDS (4) Adrenal mass: Code(s): E27.8 - Other specified disorders of adrenal gland Status: Acute Assessment and Plan: * Abd/pelvis CT:1 cm mass in the left adrenal gland concerning for malignancy. Follow-up CT using adrenal protocol or MRI is recommended. * Patient is aware this, take spironolactone (5) Hypomagnesemia: Code(s): E83.42 - Hypomagnesemia Status: Acute Assessment and Plan: * 01/24:Mg 1.5 * Will give 1 g magnesium sulfate * Repeat labs, replace as needed (6) Hypokalemia: Code(s): E87.6 - Hypokalemia Status: Acute Assessment and Plan: * 01/24: K 3.2 * Takes spironolactone, will hold at this time * Monitor daily labs, replace as needed Plan Diet: NPO GI prophylaxis: Pantoprazole DVT prophylaxis: SCDs lines/drains: Port-A-Cath Fluids: 1 L NS Code status: Full Subjective Date/time seen: 01/25/25 11:02 Interval history: 84-year-old female with a past medical history of interstitial lung disease, benign adrenal adenoma, anxiety, hypothyroidism, diverticulitis, GERD, osteoporosis, and MDS presented to the ED on 01/23/2025 with complaints of di arrhea for the past 7 days. 01/25/2025 The patient sitting comfortably in bed at time of examination, denies any chest pain, shortness of breath, nausea/vomiting or abdominal pain at this time. Still on 2 L nasal cannula, will wean as tolerated. General surgery saw patient this morning, no plan for surgical intervention, will advance diet as tolerated and monitor with serial exams/labs. Patient otherwise feeling much better today. Review of Systems Review of Systems: All systems reviewed & are unremarkable except as noted in HPI and below Exam Narrative: GENERAL: non-toxic appearing, in no acute distress. HEAD: Normocephalic, atraumatic. EYES: PERRLA. Conjunctivae clear. NOSE: Normal no drainage. THROAT: Pharynx clear, no exudate. NECK: Trachea midline. No adenopathy, no masses. RESPIRATORY: Airway patent, respirations nonlabored. CTA. CARDIOVASCULAR: Regular rate and rhythm. PAC to right chest BREASTS: Defer GASTROINTESTINAL: Abdomen is soft, round and nontender. No organomegaly. Isaak wel sounds hypoactive in all quadrants. Ventral hernia just above the umbilicus not painful and easily reducible. GENITOURINARY: Defer MUSCULOSKELETAL: Moves all extremities. No gross deformities. No calf tenderness. SKIN: Warm, dry, normal color. NEURO: A&O X4. Speech clear PSYCHIATRIC: Normal interaction Objective Data Vital Signs Vital Signs: Vital Signs - 24 hr 01/24/25 13:40 01/24/25 17:13 01/24/25 17:18 Temperature 98.6 F Pulse Rate 89 Respiratory Rate 18 Blood Pressure 144/42 H Pulse Oximetry 99 97 97 Oxygen Delivery Room Air Oxygen Flow Rate Fraction of Inspired Oxygen 01/24/25 20:00 01/24/25 21:41 01/25/25 05:51 Temperature 97.7 F 97.5 F L Pulse Rate 92 89 Respiratory Rate 18 18 Blood Pressure 143/50 H 163/60 H Pulse Oximetry 92 92 97 Oxygen Delivery Nasal Cannula Oxygen Flow Rate 2 Fraction of Inspired Oxygen 01/25/25 08:00 01/25/25 08:00 01/25/25 08:59 Temperature Pulse Rate 87 83 Respiratory Rate 20 20 Blood Pressure Pulse Oximetry 94 97 97 Oxygen Delivery Nasal Cannula Room Air Room Air Oxygen Flow Rate 2 Fraction of Inspired Oxygen 28 21 Intake/Output Intake/Output: Intake & Output 01/22/25 01/23/25 01/24/25 01/25/25 23:59 23:59 23:59 23:59 Intake Total 1350 1250 440 Balance 1350 1250 440 Meds/Results Medications: Active Medications Generic Name Dose Route Start Last Admin Trade Name Freq PRN Reason Stop Dose Admin Calcium Carbonate 500 mg 01/24/25 09:00 01/25/25 08:29 Calcium/Vitamin D 500 Mg/5 Mcg (200 I.U.) Tablet PO 500 mg DAILY LILLIAM Administration Clonazepam 0.25 mg 01/23/25 20:05 01/25/25 08:29 Clonazepam (*Crx) 0.25 Mg Tablet PO 0.25 mg BID LILLIAM Administration Filgrastim-Sndz 300 mcg 01/25/25 10:20 01/25/25 10:47 Filgrastim-Sndz 300 Mcg/0.5 Ml Syringe SUB-Q 300 mcg DAILY LILLIAM Administration Heparin Sodium (Beef Lung) 50 units 01/24/25 09:00 01/24/25 19:19 Heparin Flush 50 Units/5 Ml Syringe IV PUSH Not Given QAM LILLIAM Heparin Sodium (Beef Lung) 50 units 01/24/25 07:51 Heparin Flush 50 Units/5 Ml Syringe IV PUSH PRN PRN after intermittent infusion Heparin Sodium (Beef Lung) 50 units 01/24/25 07:51 Heparin Flush 50 Units/5 Ml Syringe IV PUSH PRN PRN after blood draws Heparin Sodium (Porcine) 500 units 01/24/25 07:51 Heparin Sodium Lock Flush 500 Units/5 Ml Syringe IV PUSH PRN PRN see comments below Levothyroxine Sodium 75 mcg 01/24/25 06:30 01/25/25 05:01 Levothyroxine Sodium 75 Mcg Tablet BY MOUTH 75 mcg DAILY@0630 LILLIAM Administration Loratadine 10 mg 01/24/25 09:00 01/25/25 08:29 Loratadine 10 Mg Tablet PO 10 mg DAILY LILLIAM Administration Pantoprazole Sodium 20 mg 01/24/25 09:00 01/25/25 08:29 Pantoprazole Sod Sesquihydrate 20 Mg Tab PO 20 mg QAM LILLIAM Administration Sodium Chloride 10 ml 01/24/25 14:00 01/25/25 05:01 Central Line Flush IV PUSH 10 ml Q8HR LILLIAM Administration Spironolactone 25 mg 01/24/25 09:00 01/25/25 08:29 Spironolactone 25 Mg Tablet PO 25 mg DAILY LILLIAM Administration Radiology Results: ITS Impressions Chest X-Ray 01/23/25 15:29 IMPRESSION: Groundglass and interstitial opacities bilaterally suggestive of pulmonary congestion. Abdomen/Pelvis CT 01/23/25 15:38 IMPRESSION: 1 cm mass in the left adrenal gland concerning for malignancy. Follow-up CT usin g adrenal protocol or MRI is recommended. There are fluid-filled distended small bowel loops. Decompressed distal small bowel loops may represent a partial small bowel obstruction secondary to a ventral wall hernia containing small bowel loops. All CT scans at this facility are performed using low dose modulation techniques as appropriate to perform exam including the following: automated exposure control; use of iterative reconstruction technique; adjustment of the mA and/or kV according to patient size (this includes techniques or standardized protocols for targeted exams where dose is matched to indication/reason for exam). Labs Labs: Laboratory Results - last 24 hr 01/25/25 06:56 WBC 1.8 L* RBC 2.34 L Hgb 7.6 L Hct 24.1 L MCV 103.0 H MCH 32.5 MCHC 31.5 L RDW 22.2 H Plt Count 153 MPV 11.8 H Immature Gran % (Auto) 1.1 H Neut % (Auto) 55.7 Lymph % (Auto) 30.1 [place] % (Auto) 7.7 Eos % (Auto) 4.9 H Baso % (Auto) 0.5 Lymph # (Auto) 0.55 L [place] # (Auto) 0.1 Eos # (Auto) 0.1 Baso # (Auto) 0.0 Abs Immat Gran (auto) 0.02 Absolute Neuts (auto) 1.0 L Absolute Nucleated RBC 0.000 Band Neutrophils % Not Reportable Nucleated RBC % 0.0 Platelet Estimate Adequate Hypochromasia 1+ Anisocytosis 2+ Schistocytes None seen Sodium 138 Potassium 3.5 Chloride 99 Carbon Dioxide 36 H Anion Gap 3 L BUN 8 Creatinine 0.55 L Estim Creat Clear Calc 56 Estimated GFR > 60 Glucose 112 H Calcium 8.3 L Total Bilirubin 1.6 H AST 35 ALT 51 H Alkaline Phosphatase 43 Total Protein 5.5 L Albumin 3.4 L Quality VTE Prophylaxis VTE prophylaxis: mechanical ordered
--- NOTE | 2025-01-25 12:18 | P.DS_ITS ---
DS: Admitting Diagnosis Discharge Date 01/25/2025 Admitting Diagnosis Partial SBO DS: Discharge Diagnosis Discharge Diagnosis (1) Partial small bowel obstruction: Code(s): K56.600 - Partial intestinal obstruction, unspecified as to cause Status: Acute Assessment and Plan: Possible partial small-bowel obstruction as read on CT with fluid-filled distended small bowel loops and decompressed distal small bowel loops. Patient does have a ventral hernia that is easily reducible and not painful. Patient denies abdominal pain. She has had 1 episode of emesis on 01/22. Diarrhea for the past 7 days. Of note, patient was seen by her primary on January 07 with complaints of diarrhea, stating her recently had C diff. A stool sample provided on 01/05 was negative for infectious organisms and ova and parasites. * NPO with sips for meds for now * strict I&O * stool sample sent * Monitor I&Os, vital signs, neuro status and patient is a fall risk * Monitor serum electrolytes and CBC * General surgery consult to further evaluate small bowel obstruction if the patient needs surgical intervention * No surgical intervention indicated at this time * Monitor with serial exams and labs * No NG tube at this time * Advance diet as tolerated, start with full liquids today (2) Myelodysplastic syndrome: Code(s): D46.9 - Myelodysplastic syndrome, unspecified Status: Chronic Assessment and Plan: Sees Dr. Chapa with [facility] monthly. Has H&H checked weekly and states for the past 5 weeks she has consistently required packed red blood cells every week. She states her oncologist wants her transfused for a hemoglobin below 8. 7.1 on arrival. * 1 unit packed red blood cells given * trend CBC * 01/24: Hgb 7.5, up from 7.1 * Has an appointment on Monday with Oncologist Dr. Chapa for possibly going back on Chemotherapy (3) Hypoxia: Code(s): R09.02 - Hypoxemia Status: Acute Assessment and Plan: Patient denies shortness of breath or chest pain but will have some dyspnea after walking a long distance when her hemoglobin is low. 1 L normal saline bolus given in ED. Subsequent chest x-ray showed possible pulmonary congestion. Patient required 2 L O2 per nasal cannula in the ED after desatting to 85% on room air. * 20 mg Lasix IV after transfusion * monitor respiratory status * Home O2 evaluation prior to discharge * 01/24: O2 saturation 97% on 2 L NC, wean as tolerated * Likely secondary to low hemoglobin due to history of MDS (4) Adrenal mass: Code(s): E27.8 - Other specified disorders of adrenal gland Status: Acute Assessment and Plan: * Abd/pelvis CT:1 cm mass in the left adrenal gland concerning for malignancy. Follow-up CT using adrenal protocol or MRI is recommended. * Patient is aware this, take spironolactone (5) Hypomagnesemia: Code(s): E83.42 - Hypomagnesemia Status: Acute Assessment and Plan: * 01/24:Mg 1.5 * Will give 1 g magnesium sulfate * Repeat labs, replace as needed (6) Hypokalemia: Code(s): E87.6 - Hypokalemia Status: Acute Assessment and Plan: * 01/24: K 3.2 * Takes spironolactone, will hold at this time * Monitor daily labs, replace as needed Plan Diet: NPO GI prophylaxis: Pantoprazole DVT prophylaxis: SCDs lines/drains: Port-A-Cath Fluids: 1 L NS Code status: Full DS: Summary Hospital Course Reason for hospitalization: Diarrhea for 7 days Hospital Course: Per HPI: 84-year-old female with a past medical history of interstitial lung disease, benign adrenal adenoma, anxiety, hypothyroidism, diverticulitis, GERD, osteoporosis, and MDS presented to the ED on 01/23/2025 with complaints of diarrhea for the past 7 days. At times she is incontinent of stool. Patient reports 8 or 9 diarrhea stools since last night. Denies seeing any blood in her stool. No abdominal pain but had 1 episode of emesis on 01/22 after eating something ?that didn't agree with her.? Denies fever, chills, body aches. No chest pain or shortness of breath. No recent antibiotics. Patient has MDS and gets a unit of packed red blood cells almost weekly. Last chemo September 2024. Initial vital signs BP 90/60, heart rate 98, respirations 14, afebrile and 93% on room air Labs reveal WBC 2.8, hemoglobin 7.1, total bilirubin 2.1, ALT 46. UA with no signs of infection Chest x-ray after 1 L bolus revealed ground-glass and interstitial opacities bilaterally suggestive of pulmonary congestion Abdomen pelvis CT reveals a 1 cm mass in the left adrenal concerning for malignancy (this has been present for years), fluid-filled distended small bowel loops, decompressed distal small bowel loops may represent partial small bowel obstruction secondary to a ventral wall hernia containing small bowel loops Patient desatted to 86% on room air and was placed on 2 L per nasal cannula Hospital course: General surgery was consulted regarding partial small-bowel obstruction. She does have a history of diverticulitis with a sigmoid colectomy in 2018, however denies any recent travel, illnesses or new foods. She also has a history of a hernia which is easily reducible on exam. She states her last bowel movement was 10:00 a.m. on 01/23. Endorses continued passing flatus. General surgery agrees with no surgical intervention indicated at this time, will also hold off on placement of NG tube as patient denies any nausea/vomiting and does have bowel function at the time. She was reassessed on 01/25 by General surgery who agrees with patient being ready for discharge from their standpoint. Patient has a history of MDS, with her last chemotherapy session in 10/2024. She has a history of requiring frequent blood transfusions if hemoglobin is less than 8. Upon admission, hemoglobin was 7.1, she was subsequently given a unit of PRBC. Hemoglobin is now up trending to 7.6. She also has a history of leukopenia associated with her MDS. WBC tends to remain at around 2.0-2.8 K/mm3. On 01/25, WBC was 1.8. She was given a SubQ of Filgrastim 300mcg. She has an appointment on Saturday 01/27 with her Front Tender to discuss the possibility of restarting Chemotherapy. When discussing the possibility of keeping the patient another day to monitor Hgb/WBC, patient endorsed significant desire to be discharged, citing the close follow up appointment she has in 2 days. As patient has been cleared by general surgery for discharge from their standpoint and the fact that the patient is asymptomatic, has stable vitals and uptrending WBC/Hgb with an appointment with Heme/Onc on monday of this coming week, patient is stable for discharge home. Plan for discharge at this time. Status at Discharge Functional status at discharge: independent ambulation Overall status at discharge: patient is back to baseline Time Spent with Patient Time attestation: Total time spent providing and/or coordinating discharge services: 34 Exam Narrative: GENERAL: non-toxic appearing, in no acute distress. HEAD: Normocephalic, atraumatic. EYES: PERRLA. Conjunctivae clear. NOSE: Normal no drainage. THROAT: Pharynx clear, no exudate. NECK: Trachea midline. No adenopathy, no masses. RESPIRATORY: Airway patent, respirations nonlabored. CTA. CARDIOVASCULAR: Regular rate and rhythm. PAC to right chest BREASTS: Defer GASTROINTESTINAL: Abdomen is soft, round and nontender. No organomegaly. Mild distension. Ventral hernia just above the umbilicus not painful and easily reducible. GENITOURINARY: Defer MUSCULOSKELETAL: Moves all extremities. No gross deformities. No calf tenderness. SKIN: Warm, dry, normal color. NEURO: A&O X4. Speech clear PSYCHIATRIC: Normal interaction DS: Data Data Completed and Pending Labs on day of discharge: Labs from last 24 hours 01/25/25 06:56 WBC 1.8 L* RBC 2.34 L Hgb 7.6 L Hct 24.1 L MCV 103.0 H MCH 32.5 MCHC 31.5 L RDW 22.2 H Plt Count 153 MPV 11.8 H Immature Gran % (Auto) 1.1 H Neut % (Auto) 55.7 Lymph % (Auto) 30.1 [place] % (Auto) 7.7 Eos % (Auto) 4.9 H Baso % (Auto) 0.5 Lymph # (Auto) 0.55 L [place] # (Auto) 0.1 Eos # (Auto) 0.1 Baso # (Auto) 0.0 Abs Immat Gran (auto) 0.02 Absolute Neuts (auto) 1.0 L Absolute Nucleated RBC 0.000 Band Neutrophils % Not Reportable Nucleated RBC % 0.0 Platelet Estimate Adequate Hypochromasia 1+ Anisocytosis 2+ Schistocytes None seen Sodium 138 Potassium 3.5 Chloride 99 Carbon Dioxide 36 H Anion Gap 3 L BUN 8 Creatinine 0.55 L Estim Creat Clear Calc 56 Estimated GFR > 60 Glucose 112 H Calcium 8.3 L Total Bilirubin 1.6 H AST 35 ALT 51 H Alkaline Phosphatase 43 Total Protein 5.5 L Albumin 3.4 L Discharge Plan Discharge Attending physician on discharge: Froilan Delatorre Consulting providers: Piero Vu; Theo Cristobal Discharging Clinician: Piero Vu Anticipated Discharge Date/Time: 01/25/25 12:14 Patient Disposition: Home Activity: as tolerated Diet: regular Discharge Instructions: Discharge disposition: Home Take medications as prescribed Monitor blood pressures Take caution while standing, rising, or moving Change positions slowly taking a break between each position change If you standing feel dizzy sit back down and take a break Encouraged to continue with yearly vaccinations Return to the emergency department if you develop sudden shortness of breath, chest pain, nausea, vomiting, upset stomach or intractable diarrhea Return to the emergency department if you develop fever greater than 101.5 Follow-up with the primary care physician within 1-2 weeks Follow-up with your Front Tender at your scheduled appointment this Monday. Thank you for choosing [facility] for your healthcare needs Patient Language: Pakistani Stand Alone Forms: General Discharge Information Follow-up/Referrals: Bryan Davey, DO [Primary Care Provider, Internal Medicine] Discharge Medications: Continued lansoprazole [Prevacid 24Hr] 15 mg capsule,delayed release(DR/EC) 15 mg PO DAILY loratadine [Claritin] 10 mg tablet 10 mg PO DAILY spironolactone 25 mg tablet 25 mg PO DAILY levothyroxine 75 mcg tablet See Rx Instructions .ROUTE .COMPLEX Qty: 90 3RF Dose Instruction: Take 1 tablet by mouth once daily Rx Instructions: Take 1 tablet by mouth once daily [id number] [MaxFe (folate)] 1 tablet PO DAILY calcium-vitamin D3-vitamin K 500-100-40 mg-unit-mcg Tablet,Chewable 1 tablet PO DAILY clonazepam 0.5 mg tablet 0.25 mg PO BID Qty: 90 0RF Date of admission: 01/23/25 17:05 Primary Care Provider: Bryan Davey Admitting Provider: Paul Rodriguez Attending physician on admission: Paul Rodriguez Condition: Stable Quality VTE Prophylaxis VTE prophylaxis: mechanical ordered
--- NOTE | 2025-01-25 12:26 | PM.PNGS ---
Progress Note: A&P Assessment and Plan (1) Partial small bowel obstruction: Code(s): K56.600 - Partial intestinal obstruction, unspecified as to cause <Jarod Loving, DO - Last Filed: 01/25/25 12:34> Status: Acute <Jarod Loving, DO - Last Filed: 01/25/25 12:34> Assessment and Plan: Patient appears to be improving and having BMs. No acute surgical needs at this time. <Theo Cristobal, DO - Last Filed: 01/27/25 14:04> Assessment and Plan: 84 yo f with diarrhea, ileus vs SBO, ventral hernia - Patient continues to have bowel movements. Her hernia is soft, nontender, and reducible. She tolerated liguids yesterday and regular food this morning. She is doing well today and clinically does not appear to be obstructed Plan - Admitted to hospitalist - Diet as tolerated - No acute surgical intervention indicated - Okay to discharge from general surgery standpoint - Surgery will be available for further needs A&P discussed with Dr. Cristobal <Jarod GoffKimber Inder, DO - Last Filed: 01/25/25 12:34> Subjective Subjective Date/Time Seen: 01/25/25 12:26 <Jarod GoffKimber Inder, DO - Last Filed: 01/25/25 12:34> Interval history: NAEON. doing well today. Tolerated liquid diet yesterday, advanced to regular diet this morning. Tolerated without nausea or vomiting. Reports having a bowel movement last night, continues to pass flatus. Abdomen is soft, mildly distended, nontender. Hernia is reducible. <Jarod GoffKimber Inder, DO - Last Filed: 01/25/25 12:34> Review of Systems Review of Systems: 12 point ROS negative except HPI <Jarod Loving, DO - Last Filed: 01/25/25 12:34> Exam Narrative: General: Awake, alert, no acute distress HEENT: NC/AT, mucous membranes pink and moist Neck: No masses or swelling, JVD Heart: Regular rate, hypertensive, otherwise HDS Lungs: Symmetric expansion, no IWOB, on RA Abdomen: soft, NTTP, mildly distended, nonperitoneal Extremities: Moves all, normal inspection Psych: normal affect, normal mood, normal judgment <Jarod Loving, DO - Last Filed: 01/25/25 12:34> Objective Data Vital Signs Vital Signs: Vital Signs - 24 hr 01/24/25 13:40 01/24/25 17:13 01/24/25 17:18 Temperature 98.6 F Pulse Rate 89 Respiratory Rate 18 Blood Pressure 144/42 H Pulse Oximetry 99 97 97 Oxygen Delivery Room Air Oxygen Flow Rate Fraction of Inspired Oxygen 01/24/25 20:00 01/24/25 21:41 01/25/25 05:51 Temperature 97.7 F 97.5 F L Pulse Rate 92 89 Respiratory Rate 18 18 Blood Pressure 143/50 H 163/60 H Pulse Oximetry 92 92 97 Oxygen Delivery Nasal Cannula Oxygen Flow Rate 2 Fraction of Inspired Oxygen 01/25/25 08:00 01/25/25 08:00 01/25/25 08:59 Temperature Pulse Rate 87 83 Respiratory Rate 20 20 Blood Pressure Pulse Oximetry 94 97 97 Oxygen Delivery Nasal Cannula Room Air Room Air Oxygen Flow Rate 2 Fraction of Inspired Oxygen 28 21 <Jarod Loving, DO - Last Filed: 01/25/25 12:34> Intake/Output Intake/Output: Intake & Output 01/22/25 01/23/25 01/24/25 01/25/25 23:59 23:59 23:59 23:59 Intake Total 1350 1250 440 Balance 1350 1250 440 <Jarod Loving, DO - Last Filed: 01/25/25 12:34> Meds/Results Medications: Active Medications Generic Name Dose Route Start Last Admin Trade Name Freq PRN Reason Stop Dose Admin Calcium Carbonate 500 mg 01/24/25 09:00 01/25/25 08:29 Calcium/Vitamin D 500 Mg/5 Mcg (200 I.U.) Tablet PO 500 mg DAILY LILLIAM Administration Clonazepam 0.25 mg 01/23/25 20:05 01/25/25 08:29 Clonazepam (*Crx) 0.25 Mg Tablet PO 0.25 mg BID LILLIAM Administration Filgrastim-Sndz 300 mcg 01/25/25 10:20 01/25/25 10:47 Filgrastim-Sndz 300 Mcg/0.5 Ml Syringe SUB-Q 300 mcg DAILY LILLIAM Administration Heparin Sodium (Beef Lung) 50 units 01/24/25 09:00 01/24/25 19:19 Heparin Flush 50 Units/5 Ml Syringe IV PUSH Not Given QAM LILLIAM Heparin Sodium (Beef Lung) 50 units 01/24/25 07:51 Heparin Flush 50 Units/5 Ml Syringe IV PUSH PRN PRN after intermittent infusion Heparin Sodium (Beef Lung) 50 units 01/24/25 07:51 Heparin Flush 50 Units/5 Ml Syringe IV PUSH PRN PRN after blood draws Heparin Sodium (Porcine) 500 units 01/24/25 07:51 Heparin Sodium Lock Flush 500 Units/5 Ml Syringe IV PUSH PRN PRN see comments below Levothyroxine Sodium 75 mcg 01/24/25 06:30 01/25/25 05:01 Levothyroxine Sodium 75 Mcg Tablet BY MOUTH 75 mcg DAILY@0630 ILLLIAM Administration Loratadine 10 mg 01/24/25 09:00 01/25/25 08:29 Loratadine 10 Mg Tablet PO 10 mg DAILY LILLIAM Administration Pantoprazole Sodium 20 mg 01/24/25 09:00 01/25/25 08:29 Pantoprazole Sod Sesquihydrate 20 Mg Tab PO 20 mg QAM LILLIAM Administration Sodium Chloride 10 ml 01/24/25 14:00 01/25/25 05:01 Central Line Flush IV PUSH 10 ml Q8HR LILLIAM Administration Spironolactone 25 mg 01/24/25 09:00 01/25/25 08:29 Spironolactone 25 Mg Tablet PO 25 mg DAILY LILLIAM Administration <Jarod Loving, DO - Last Filed: 01/25/25 12:34> Radiology Results: ITS Impressions Chest X-Ray 01/23/25 15:29 IMPRESSION: Groundglass and interstitial opacities bilaterally suggestive of pulmonary congestion. Abdomen/Pelvis CT 01/23/25 15:38 IMPRESSION: 1 cm mass in the left adrenal gland concerning for malignancy. Follow-up CT using adrenal protocol or MRI is recommended. There are fluid-filled distended small bowel loops. Decompressed distal small bowel loops may represent a partial small bowel obstruction secondary to a ventral wall hernia containing small bowel loops. All CT scans at this facility are performed using low dose modulation techniques as appropriate to perform exam including the following: automated exposure control; use of iterative reconstruction technique; adjustment of the mA and/or kV according to patient size (this includes techniques or standardized protocols for targeted exams where dose is matched to indication/reason for exam). <Jarod E. Loving, DO - Last Filed: 01/25/25 12:34> Labs Labs: Laboratory Results - last 24 hr 01/25/25 06:56 WBC 1.8 L* RBC 2.34 L Hgb 7.6 L Hct 24.1 L MCV 103.0 H MCH 32.5 MCHC 31.5 L RDW 22.2 H Plt Count 153 MPV 11.8 H Immature Gran % (Auto) 1.1 H Neut % (Auto) 55.7 Lymph % (Auto) 30.1 Hodgeman % (Auto) 7.7 Eos % (Auto) 4.9 H Baso % (Auto) 0.5 Lymph # (Auto) 0.55 L Hodgeman # (Auto) 0.1 Eos # (Auto) 0.1 Baso # (Auto) 0.0 Abs Immat Gran (auto) 0.02 Absolute Neuts (auto) 1.0 L Absolute Nucleated RBC 0.000 Band Neutrophils % Not Reportable Nucleated RBC % 0.0 Platelet Estimate Adequate Hypochromasia 1+ Anisocytosis 2+ Schistocytes None seen Sodium 138 Potassium 3.5 Chloride 99 Carbon Dioxide 36 H Anion Gap 3 L BUN 8 Creatinine 0.55 L Estim Creat Clear Calc 56 Estimated GFR > 60 Glucose 112 H Calcium 8.3 L Total Bilirubin 1.6 H AST 35 ALT 51 H Alkaline Phosphatase 43 Total Protein 5.5 L Albumin 3.4 L <Jarod Loving, DO - Last Filed: 01/25/25 12:34>
--- NOTE | 2025-01-25 12:48 | HOMEO2EVAL ---
Evaluation was performed at [facility] Home Oxygen Evaluation RC: Home Oxygen (O2) Evaluation Start: 01/24/25 10:58 Freq: ONCE Status: Active Protocol: RPE Activity Type Activity Date Activity User E-sign Co-sign Detail Recorded Client Recorded Date Recorded By Document 01/25/25 12:35 RES [email or web address] 01/25/25 12:45 RES Document 01/25/25 12:36 RES [email or web address] 01/25/25 12:45 RES Document 01/25/25 12:37 RES [email or web address] 01/25/25 12:45 RES Document 01/25/25 12:38 RES [email or web address] 01/25/25 12:45 RES Document 01/25/25 12:39 RES [email or web address] 01/25/25 12:48 RES Document 01/25/25 12:40 RES [email or web address] 01/25/25 12:48 RES Document 01/25/25 12:41 RES [email or web address] 01/25/25 12:48 RES Document 01/25/25 12:42 RES [email or web address] 01/25/25 12:48 RES Document 01/25/25 12:43 RES [email or web address] 01/25/25 12:48 RES 01/25/25 01/25/25 01/25/25 12:35 12:36 12:37 Home O2 Evaluation [Oxygen] -Test Phase Resting Exercise Exercise -Oxygen Delivery Room Air Room Air Room Air -Fraction of Inspired Oxygen (%) 21 21 21 [Pulse Oximetry] -Pulse Oximetry (90-100 %) 97 95 94 [Pulse Rate] -Pulse Rate (60-100 beats/min) 95 101 H 102 H [Evaluation] -Activity Tolerance Good Good Good -Rating of Perceived Dyspnea (PD) +1 Mild, +1 Mild, +1 Mild, Noticeable to Noticeable to Noticeable to the Participant the Participant the Participant but Not to an but Not to an but Not to an Observer Observer Observer -Rate of Perceived Exertion (PE) 6 Very, very 6 Very, very 6 Very, very Query Text:Click the Protocol Button light light light to View the RPE Scale [Exercise] -Ambulation Distance (feet) -Ambulation Distance (meters) [Charges] -Evaluation Charges O2 Evaluation by 01/25/25 01/25/25 01/25/25 12:38 12:39 12:40 Home O2 Evaluation [Oxygen] -Test Phase Exercise Exercise Exercise -Oxygen Delivery Room Air Room Air Room Air -Fraction of Inspired Oxygen (%) 21 21 21 [Pulse Oximetry] -Pulse Oximetry (90-100 %) 92 91 92 [Pulse Rate] -Pulse Rate (60-100 beats/min) 101 H 103 H 101 H [Evaluation] -Activity Tolerance Good Good Good -Rating of Perceived Dyspnea (PD) +1 Mild, +1 Mild, +1 Mild, Noticeable to Noticeable to Noticeable to the Participant the Participant the Participant but Not to an but Not to an but Not to an Observer Observer Observer -Rate of Perceived Exertion (PE) 6 Very, very 6 Very, very 6 Very, very Query Text:Click the Protocol Button light light light to View the RPE Scale [Exercise] -Ambulation Distance (feet) -Ambulation Distance (meters) [Charges] -Evaluation Charges 01/25/25 01/25/25 01/25/25 12:41 12:42 12:43 Home O2 Evaluation [Oxygen] -Test Phase Exercise Exercise Resting -Oxygen Delivery Room Air Room Air Room Air -Fraction of Inspired Oxygen (%) 21 21 21 [Pulse Oximetry] -Pulse Oximetry (90-100 %) 90 91 93 [Pulse Rate] -Pulse Rate (60-100 beats/min) 102 H 102 H 100 [Evaluation] -Activity Tolerance Good Good Good -Rating of Perceived Dyspnea (PD) +1 Mild, +1 Mild, +1 Mild, Noticeable to Noticeable to Noticeable to the Participant the Participant the Participant but Not to an but Not to an but Not to an Observer Observer Observer -Rate of Perceived Exertion (PE) 6 Very, very 6 Very, very 6 Very, very Query Text:Click the Protocol Button light light light to View the RPE Scale [Exercise] -Ambulation Distance (feet) 400 -Ambulation Distance (meters) 121.91 [Charges] -Evaluation Charges
== END 2025-01-25 13:47 | disposition home or self-care (01) | DRG 394 ==
LOC: ANHED 16:40 → ANH2MED 17:17
PROVIDERS: Nurse Practitioner Adult Health; Admitting Provider Internal Medicine; Emergency Provider Nurse Practitioner Family; PCP Internal Medicine; Visit Provider Physician Assistant
DX: K43.6 Other and unspecified ventral hernia with obstruction, without gangrene (principal); J84.9 Interstitial pulmonary disease, unspecified; D46.Z Other myelodysplastic syndromes; D35.02 Benign neoplasm of left adrenal gland; R09.02 Hypoxemia; K58.9 Irritable bowel syndrome, unspecified; K21.9 Gastro-esophageal reflux disease without esophagitis; D53.9 Nutritional anemia, unspecified; E03.9 Hypothyroidism, unspecified; I10 Essential (primary) hypertension; M81.0 Age-related osteoporosis without current pathological fracture; E83.42 Hypomagnesemia; E87.6 Hypokalemia; E66.9 Obesity, unspecified; F41.9 Anxiety disorder, unspecified; Z86.16 Personal history of COVID-19; Z68.29 Body mass index [BMI] 29.0-29.9, adult; Z86.0109 Personal history of other colon polyps; Z86.19 Personal history of other infectious and parasitic diseases; Z20.822 Contact with and (suspected) exposure to COVID-19; Z87.19 Personal history of other diseases of the digestive system; Z90.49 Acquired absence of other specified parts of digestive tract; Z95.828 Presence of other vascular implants and grafts
CPT/HCPCS: 36415; 36430; 71045; 74177; 80053; 81003; 82248; 83605; 83690; 83735; 85025; 86850; 86900; 86901; 86923; 94618; 96360; 96361; 99285; A9270; J1938; J3475; J7030; J7050; P9016; Q5101; Q9967

== ENCOUNTER 2025-02-06 11:17 | Outpatient (CLI) | payer MEDICARE, SELFPAY ==
--- OUTSIDE RECORDS SUMMARY | 2009-03-31 09:30 | XMS_ITS | Continuity of Care Document ---
Author Organization [facility] Address [address] [place] [address] Exec [address]ive [facility] [address] [place] [address] Phone Care Team Providers Care Cutter In Name Role Phone Davison OD, Kem Unavailable Unavailable Procedures Procedure Date Eye Exam Established Pt No Script Office/outpatient Visit, Est Office/outpatient Visit, Est Office/outpatient Visit, Est Office/outpatient Visit, Est Office/outpatient Visit, Est Office/outpatient Visit, Est Office/outpatient Visit, Est Advance Directives Directive Yes / No Effective Date File Name No Information Encounters Encounter Description Practice Location Reason(s) For Visit Diagnoses Date Provider Providers Copied on Encounter [facility], [address] [place] [address] [address], [place], [place], [id number], tel:[phone] SEC [facility] No Information 9-200 9 Davison OD Kem. [address] [facility] , [address], [place], [address], [place]. tel:[phone] Office/outpat ient Visit, Est [facility], [address] [place] [address] [address], [place], [place], [id number], [place] tel:[phone] [facility] No Information 4-200 8 Krishnasamy Tarik. [address] [facility] [address], [place], [address], [place]. tel:[phone] Office/outpat ient Visit, [facility], [address] [place] [address] [address], [place], [place], [id number], [place] tel:[phone] [facility] No Information Pato-2 4-200 8 Krishnasamy Tarik. [address] [place] [address] [address], [place], [place], [facility], [place]. tel:[phone] Office/outpat ient Visit, [facility], [address] [place] [address] [address], [place], [place], [id number], [place] tel:[phone] [facility] No Information Pato-1 0-200 8 Krishnasamy Tarik. [address] [place] [address] 102, [place], [place], [facility], [place]. tel:[phone] Office/outpat ient Visit, [facility], [id number] [place] [address] [address], [place], [place], [id number], [place] tel:[phone] [facility] No Information May-2 1-200 8 Davison OD Kem. [address] [place] [address] Dr, [address], [place], [address], [place]. tel:[phone] Office/outpat ient Visit, [facility], [address] [place] [address] [address], [place], [place], [id number], [place] tel:[phone] [facility] [place] No Information Apr-0 8-200 8 Krishnasamy Tarik. [address] [place] [address] [address], [place], [address], [place]. tel:[phone] [facility]pat ient [facility], [facility], [address] [place] [address] [address], [place], [place], [id number], [place] tel:[phone] [facility] No Information Oct-1 6-200 7 Anitra Tubbs. [address], [address], [place], [place], [id number], [place]. tel:[phone] Office/outpat ient Visit, [facility], [address], [place], [place], [id number], [place] tel:[phone] [facility] No Information 7-200 7 Anitra Hernandezald. [address], [address], [place], [place], [id number], [place]. tel:[phone] Family History Family Member Type Diagnosis Age At Onset No Information Payers Payer name Insurance type Covered alliance party ID Authoriza tizenia(s) [place] [id number] Social History Type Description Quantity Date Captured Comments Sex Female Smoking Status No Information Chief Complaint And Reason For Visit No Information Reason For Referral Reason For Referral No Information History Of Present Illness Encounter Date Complaint History Of Prese nt Illness No Information Functional Status Date Functional Assessmen t No Information Instructions Date Instruction Additional Infor mation No Information Assessments Type Assessment Date No Information Patient Care Teams Name Effective Dates (start - stop) Status Members No Information
--- OUTSIDE RECORDS SUMMARY | 2022-06-02 07:00 | XMS_ITS | Continuity of Care Document ---
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 Name Role Phone Antonio OTWhitney Unavailable Unavailable Procedures Procedure Date Doc neg elder mal no plan OT Re-Evaluation Therapeutic Activities Therapeutic Exercise Hot or Cold Pack Therapeutic Activities Therapeutic Exercise Manual Therapy Hot or Cold Pack Therapeutic Activities Therapeutic Exercise Manual Therapy Hot or Cold Pack Therapeutic Activities Therapeutic Exercise Manual Therapy Hot or Cold Pack Therapeutic Activities Therapeutic Exercise Hot or Cold Pack Therapeutic Activities Therapeutic Exercise Manual Therapy Hot or Cold Pack Therapeutic Activities Neuromuscular Re-Ed Therapeutic Exercise Hot or Cold Pack Manual Therapy Therapeutic Activities Neuromuscular Re-Ed Therapeutic Exercise Manual Therapy Hot or Cold Pack Therapeutic Activities Therapeutic Exercise Manual Therapy Hot or Cold Pack Progress Note Therapeutic Activities Therapeutic Exercise Manual Therapy Hot or Cold Pack Therapeutic Activities Therapeutic Exercise Hot or Cold Pack Therapeutic Activities Neuromuscular Re-Ed Therapeutic Exercise Hot or Cold Pack Therapeutic Activities Neuromuscular Re-Ed Therapeutic Exercise Hot or Cold Pack Therapeutic Activities Therapeutic Exercise Hot or Cold Pack Therapeutic Activities Neuromuscular Re-Ed Therapeutic Exercise Hot or Cold Pack Therapeutic Activities Neuromuscular Re-Ed Therapeutic Exercise Hot or Cold Pack Therapeutic Activities Neuromuscular Re-Ed Therapeutic Exercise Hot or Cold Pack Therapeutic Activities Neuromuscular Re-Ed Hot or Cold Pack Therapeutic Activities Therapeutic Exercise Neuromuscular Re-Ed Manual Therapy Hot or Cold Pack Doc neg elder mal no plan OT Evaluation Moderate Complexity Therapeutic Activities Neuromuscular Re-Ed Therapeutic Exercise Advance Directives Directive Yes / No Effective Date File Name No Information Encounters Encounter Description Practice Location Reason(s) For Visit Diagnoses Date Provider Providers Copied on Encounter [facility] [facility] [address], [place], [place], [id number], [place] tel:[phone] [place] No Information Jun-0 3 Antonio Olson. . Referring Provider: Dorothea Berry[address] [place], [address]. tel:[phone] [facility] [address], [place], [place], [id number], [place] tel:[phone] [place] No Information 3 Antonio Whitney. . Referring Provider: Sherman Ramirez, [address] [place] [address], [address]. tel:[phone] [facility] [address], [place], [place], [id number], [place] tel:[phone] [place] No Information 3 Antonio Whitney. . Referring Provider: Sherman Ramirez, [address] [place] [address], [address]. tel:[phone] [facility] [address], [place], [place], [id number], [place] tel:[phone] [place] No Information 3 Antonio Whitney. . Referring Provider: Sherman Ramirez, [address] [place] [address], [address]. tel:[phone] [facility] [address], [place], [place], [id number], [place] tel:[phone] [place] No Information 3 Antonio Whitney. . Referring Provider: Sherman Ramirez, [address] [place] [address], [address]. tel:[phone] [facility], [place], [place], [address], [place] tel:[phone] [place] No Information 3 Antonio Whitney. . Referring Provider: Sherman Ramirez, [address] [place] [address], [address]. tel:[phone] [facility], [place], [place], [address], [place] tel:[phone] [place] No Information 2 Antonio Whitney. . Referring Provider: Sherman Ramirez, [address] [place] [address], [address]. tel:[phone] [facility] [address], [place], [place], [id number], [place] tel:[phone] [place] No Information Dec-2 1-202 2 Antonio Whitney. . Referring Provider: Sherman Ramirez, [address] [place] [address], [address]. tel:[phone] [facility], [address], [place], [place], [id number], [place] tel:[phone] [place] No Information Dec-1 5-202 2 [place]. . Referring Provider: Sherman Ramirez, [address] [place] [address], [address]. tel:[phone] [facility], [facility] [address], [place], [place], [id number], [place] tel:[phone] [place] No Information Dec-0 8-202 2 Antonio Whitney. . Referring Provider: Sherman Ramirez, [address] [place] [address], [address]. tel:[phone] [facility] [address], [place], [place], [id number], [place] tel:[phone] [place] No Information Dec-0 5-202 2 Antonio Whitney. . Referring Provider: Sherman Ramirez, [address] [place] [address], [address]. tel:[phone] [facility], [address], [place], [place], [id number], [place] tel:[phone] [place] No Information Dec-0 2-202 2 Antonio Whitney. . Referring Provider: Sherman Ramirez, [address] [place] [address], [address]. tel:[phone] [facility], [address], [place], [place], [id number], [place] tel:[phone] [place] No Information Nov-3 0-202 2 Antonio Whitney. . Referring Provider: Sherman Ramirez, [address] [place] [address], [address]. tel:[phone] [facility] [address], [place], [place], [id number], [place] tel:[phone] [place] No Information Nov 2 Antonio Whitney. . Referring Provider: Sherman Ramirez, [address] [place] [address], [address]. tel:[phone] [facility] [address], [place], [place], [id number], [place] tel:[phone] [place] No Information Nov 2 Antonio Whitney. . Referring Provider: Sherman Ramirez, [address] [place] [address], [address]. tel:[phone] [facility] [address], [place], [place], [id number], [place] tel:[phone] [place] No Information Nov 2 [place]. . Referring Provider: Sherman Ramirez, [address] [place] [address], [address]. tel:[phone] [facility] [address], [place], [place], [id number], [place] tel:[phone] [place] No Information 2 [place]. . Referring Provider: Sherman Ramirez, [address] [place] [address], [address]. tel:[phone] [facility] [address], [place], [place], [id number], [place] tel:[phone] [place] No Information 2 Antonio Whitney. . Referring Provider: Sherman Ramirez, [address] [place] [address], [address]. tel:[phone] [facility] [address], [place], [place], [id number], [place] tel:[phone] [place] No Information 2 Antonio Olson. . Referring Provider: Sherman Ramirez [address] [place], [address]. tel:[phone] [facility], [address] [facility] [address], [place], [place], [id number], tel:[phone] [place] No Information 2 Antonio Olson. . Referring Provider: Sherman Ramirez [address] [place], [address]. tel:[phone] Family History Family Member Type Diagnosis Age At Onset No Information Payers Payer name Insurance type Covered green party ID Authoriza tizenia(s) Medicare [place] [id number] [facility] [id number] Social History Type Description Quantity Date Captured Comments Alcohol Use Details Unknown Caffeine Use Details Unknown Tobacco Use Status Current non-smoker Smoking Status Never smoker Non-Smoking Tobacco Use Details : No Details Available : No Details Available Sex Female Chief Complaint And Reason For Visit No Information Reason For Referral Reason For Referral No Information History Of Present Illness Encounter Date Complaint History Of Prese nt Illness No Information Functional Status Date Functional Assessmen t No Information Instructions Date Instruction Additional Infor mation Dietary needs education Related to Overweight Prescribed activity/exercise edu cation Related to Overweight Assessments Type Assessment Date No Information Patient Care Teams Name Effective Dates (start - stop) Status Members No Information
[2025-02-06 13:21] LABS: Add Urine Microscopic? YES; Appearance Urine Cloudy (Clear); Glucose Urine UA Negative (Negative); Leukocyte Esterase Ur 3+ LEU/UL (Negative); Nitrate Urine Negative (Negative); Specific Grav Ur 1.019 (1.001-1.035)
[2025-02-06 13:34] LABS: Thyroid Stimulating Hormone 1.040 uIU/mL (0.465-4.680)
--- OUTSIDE RECORDS SUMMARY | 2025-02-06 19:04 | XMS_ITS | Clinical Summary ---
Author Organization [facility] Jamacia Diegobalta Address [address] [place] [address] Care Team Providers Care License Inspector Name Role Phone Unavailable Primary Care Provider [...]
--- OUTSIDE RECORDS SUMMARY | 2025-02-06 19:04 | XMS_ITS | Encounter Summary ---
Author Organization [facility] Address [address] [place] [address] Phone Care Team Providers Care Yarn Worker Name Role Phone Bryan Davey DO Primary Care Provider Prateek King MD Unavailable Sherman Alvarez DO Unavailable [phone] Encounter Details Date Type Department Care Team (Late st Contact Info) Description 12/18/2024 Results Follow-Up [facility] Oncology [address] [place] [address] [address] [address] Theresa Gutierres RN CBC with auto differential, Differential, auto Social History Tobacco Use Types Packs/Day Years Used Date Smoking Tobacco: Never Smokeless Tobacco: Never Alcohol Use Standard Drinks/Week Comments Yes 0 (1 standard drink = 0.6 oz pur e alcohol) [facility] Utilities Answer Date Recorded In the past 12 months has [employer] electric, gas, oil, or water company threatened [...] often do you attend chur ch or rastafari services? 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 Gender Identity Not on file Sexual Orientation Not on file documented as of this encounter Functional Status documented as of this encounter Plan of Treatment Not on file documented as of this encounter Visit Diagnoses Not on filedocumented in this encounter Care Teams Yarn Worker Relationship Specialty Start Date End Date Bryan Davey DO PCP - General Internal Medicine 11/14/23 Prateek King MD [address] [place] [address] Consulting Physician Urology 10/07/24 Sherman Alvarez DO [address] [place] [place] [id number] Medical Oncologist/Rib Matcher And Fitter Hematology and Oncology 10/07/24 documented as of this encounter
--- OUTSIDE RECORDS SUMMARY | 2025-02-06 19:05 | XMS_ITS | Clinical Summary ---
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); Myelodysplastic syndrome (HCC); MDS (myelodysplastic syndrome) (HCC) 01/27/2025 10:30 AM CDT Infusion [address] [place] [address] Myelodysplastic syndrome (HCC); Chronic anemia 01/27/2025 10:00 AM CDT Office Visit [facility] [address] [place] [address] Medical Office Bld[address] [place] [address] Chalino Chapa MD Myelodysplastic syndrome (HCC) (Primary Dx); Chronic anemia 01/27/2025 9:30 AM CDT Lab [place] [address] [place] [address] Myelodysplastic syndrome (HCC); Chronic anemia 01/20/2025 10:30 AM CDT Infusion [address] [place] [address] 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); Myelodysplastic syndrome (HCC); Chronic anemia; MDS (myelodysplastic syndrome) (HCC); Encounter for care related to Port-a-Cath 01/20/2025 10:00 AM CDT Lab [address] [place] [address] Myelodysplastic syndrome (HCC); Chronic anemia; MDS (myelodysplastic syndrome) (HCC); Anemia in neoplastic disease 01/20/2025 Orders Only [facility] [address] [place] [address] [address] [place] [address] Chalino Chapa MD 01/15/2025 10:30 AM CDT Lab [address] [place] [address] Myelodysplastic syndrome (HCC); Anemia in neoplastic disease; Chronic anemia 01/15/2025 10:30 AM CDT Infusion [address] [place] [address] MDS (myelodysplastic syndrome) (HCC) (Primary Dx); Myelodysplastic syndrome (HCC); Anemia in neoplastic disease 01/14/2025 Documentation [facility] [address] [place] [address] Office [facility] [address] [place] [address] Betty Sewell, ALBERT 01/14/2025 Orders Only [facility] [address] [place] [address] [address] [place] [address] Chalino Chapa MD Myelodysplastic syndrome (HCC) (Primary Dx); Anemia in neoplastic disease 01/06/2025 10:00 AM CDT Lab [facility] [address] [facility] [address] [place] [address] Myelodysplastic syndrome (HCC); Chronic anemia 01/06/2025 10:00 AM CDT Infusion [address] [place] [address] 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); Myelodysplastic syndrome (HCC); Chronic anemia; MDS (myelodysplastic syndrome) (HCC) 01/06/2025 Orders Only [facility] [address] [place] [address] Office [facility] [address] [place] [address] Chalino Chapa MD 01/06/2025 Orders Only [facility] [address] [place] [address] Office [facility] [address] [place] [address] Chalino Chapa MD Myelodysplastic syndrome (HCC) (Primary Dx) 12/31/2024 9:30 AM CDT Office Visit [facility] [address] [place] [address] Office [facility] [address] [place] [address] Chalino Chapa MD Myelodysplastic syndrome (HCC) (Primary Dx); Chronic anemia; Anemia in neoplastic disease 12/31/2024 9:00 AM CDT Lab [facility] [address] [facility] [address] [place] [address] Myelodysplastic syndrome (HCC); Anemia in neoplastic disease 12/30/2024 Telephone [facility] [address] [place] [address] [address] [place] [address] Clau Cabral CLT 12/24/2024 11:30 AM CDT Lab [address] [place] [address] Myelodysplastic syndrome (HCC); Anemia in neoplastic disease; MDS (myelodysplastic syndrome) (HCC) 12/24/2024 11:30 AM CDT Infusion [address] [place] [address] 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); MDS (myelodysplastic syndrome) (HCC) 12/18/2024 10:30 AM CDT Lab [address] [place] [address] Myelodysplastic syndrome (HCC); Anemia in neoplastic disease; MDS (myelodysplastic syndrome) (HCC) 12/18/2024 10:30 AM CDT Infusion [address] [place] [address] MDS (myelodysplastic syndrome) (HCC) (Primary Dx); Myelodysplastic syndrome (HCC); Anemia in neoplastic disease 12/18/2024 Results Follow-Up [facility] [address] [place] [address] Medical Office [address]ld[address] [place] [address] Theresa Gutierres RN CBC with auto differential, Differential, auto 12/18/2024 Orders Only [facility] [address] [place] [address] Medical Office Bld[address] [place] [address] Michael Terry MD 12/16/[address] [address] Chalino Chapa MD 12/09/[address] [place] [phone] Chalino Chapa MD 12/09/2024 Documentation [facility] [address] [place] [address] Medical Office Bld[address] [place] [address] Betty Sewell RN 12/03/2024 9:30 AM CDT Infusion [address] [place] [address] Bud Rubio RN MDS (myelodysplastic syndrome) (HCC) 12/03/2024 9:00 AM CDT Office Visit [facility] [address] [place] [address] Medical [address] [place] [address] Chalino Chapa MD Myelodysplastic syndrome (HCC) (Primary Dx); Anemia in neoplastic disease; MDS (myelodysplastic syndrome) (HCC) 12/03/2024 8:30 AM CDT Lab [address] [place] [address] MDS (myelodysplastic syndrome) (HCC); Myelodysplastic syndrome (HCC) 11/29/2024 9:00 AM CDT Infusion [address] [place] [address] Radha Veliz RN Anemia in neoplastic disease; MDS (myelodysplastic syndrome) (HCC) 11/29/2024 8:30 AM CDT Lab [address] [place] [address] Anemia in neoplastic disease; MDS (myelodysplastic syndrome) (HCC) 11/28/2024 Orders Only [facility] [address] [place] [address] Medical Office [facility] [address] [place] [address] Chalino Chapa MD 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); MDS (myelodysplastic syndrome) (HCC) 11/28/2024 Telephone [facility] [address] [place] [address] Medical [address] [place] [address] Anisa Villagran CLT 11/26/2024 9:45 AM CDT Lab [address] [place] [address] MDS (myelodysplastic syndrome) (HCC) 11/19/2024 10:00 AM CDT Infusion [address] [place] [address] Betty Donaldson 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 (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 syndrome) (HCC) 11/19/2024 9:45 AM CDT Lab [address] [place] [address] MDS (myelodysplastic syndrome) (HCC) 11/14/2024 10:00 AM CDT Infusion [address] [place] [address] Radha Veliz, ALBERT 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); MDS (myelodysplastic syndrome) (HCC) 11/14/2024 9:45 AM CDT Lab [address] [place] [address] MDS (myelodysplastic syndrome) (HCC) 11/14/2024 Orders Only [facility] [address] [place] [address] Medical Office [address]ld[address] [place] [address] Chalino Chapa MD 11/12/2024 Telephone [facility] [address] [place] [address] Medical Office [address] [place] [address] Theresa Gutierres, ALBERT 11/11/2024 10:30 AM CDT Infusion [address] [place] [address] Emile Jackson, ALBERT Encounter for care related to Port-a-Cath (Primary Dx); Myelodysplastic syndrome (HCC); MDS (myelodysplastic syndrome) (HCC) 11/11/2024 10:15 AM CDT Office Visit [facility] [address] [place] [address] Medical Office [address] [place] [address] Chalino Chapa MD MDS (myelodysplastic syndrome) (HCC) (Primary Dx); Myelodysplastic syndrome (HCC) 11/11/2024 9:45 AM CDT Lab [address] [place] [address] Myelodysplastic syndrome (HCC); MDS (myelodysplastic syndrome) (HCC); Chronic anemia from Last 3 Months Immunizations [...] ge ts checked yearly MDS (myelodysplastic syndrome) ([facility]) Closed fracture of distal en d of humerus 09/29/2021 Closed fracture of fifth met atarsal bone 10/06/2021 Covid-19 01/21/2020 Pneumonia 01/21/2020 Tear of medial meniscus of l eft knee, current 06/06/2018 Added automatically from [employer] [facility] for surgery [id number] PONV (postoperative nausea a nd vomiting) Anxiety [...] 0.6 oz pur e alcohol) [facility] Utilities Answer Date Recorded In the [...] often do you attend chur ch or spiritism services? Never 09/30/2024 Do you belong to any clubs o r organizations such as rastafarian groups, unions, fraternal or athletic groups, or [...] any time in the past 12 m [facility], were you homeless or living in a long term (including now)? No 10/02/2024 Personal Safety Answer Date Recorded Have you ever been in or are you currently in a harmful physical or emotional relationship or is someone making you feel afraid or unsafe? Denies 09/28/2024 Comments Unknown Sex and Gender Information Value Date Recorded Sex Assigned at Not on file Legal Sex Female 1:43 AM DENTAL DIRECTOR Gender Identity Not on file Sexual Orientation Not on file Last Filed Vital Signs Vital Sign Reading Time Taken Comments Blood Pressure 135/65 02/03/2025 12:14 PM DENTAL DIRECTOR Pulse 82 02/03/2025 12:14 PM DENTAL DIRECTOR Temperature 36.1 C (97 F) 02/03/2025 12:14 PM DENTAL DIRECTOR Respiratory Rate 18 02/03/2025 12:14 PM DENTAL DIRECTOR Oxygen Saturation 96% 02/03/2025 12:14 PM DENTAL DIRECTOR Inhaled Oxygen Concentration - - Weight 65.6 kg (144 lb 9.6 oz) 01/27/2025 10:05 AM CDT Height 152.4 cm (5') 11/11/2024 10:57 AM CDT Body Mass Index 28.24 11/11/2024 10:57 AM CDT Plan of Treatment [...] 10/02, 04/03/2016 Medical Devices Implanted Type Area Hooker On Device Identifier Shelf Expiration Date Model / Serial / Lot Emre ComHear Powerport Mri Airguard 8fr 1 Lumen Attachable Catheter Latex Free [id number] - [id number] Implanted:Qty: 1 on 11/20/2023 by Shade Red MD at [facility] Right: Chest Emre Chaparrita 09/30/2024 [id number] / / [id number] Procedures Procedure Name Priority Date/Time Associated Diagnosis Comments TRANSFUSE RED BLOOD CELLS Timed 02/03/2025 10:45 AM DENTAL DIRECTOR Anemia in neoplastic disease MDS (myelodysplastic syndrome) (HCC) PREPARE RBC Routine 02/03/2025 10:33 AM DENTAL DIRECTOR PREPARE RBC Routine 02/03/2025 10:10 AM DENTAL DIRECTOR Anemia in neoplastic disease MDS (myelodysplastic syndrome) (HCC) CROSSMATCH Routine 02/03/2025 9:20 AM DENTAL DIRECTOR Myelodysplastic syndrome (HCC) Chronic anemia EGFR Routine 02/03/2025 9:20 AM DENTAL DIRECTOR Myelodysplastic syndrome (HCC) ANTIBODY SCREEN Routine 02/03/2025 9:20 AM DENTAL DIRECTOR Myelodysplastic syndrome (HCC) Chronic anemia ABO/RH Routine 02/03/2025 9:20 AM DENTAL DIRECTOR Myelodysplastic syndrome (HCC) Chronic anemia TYPE AND SCREEN Routine 02/03/2025 9:20 AM DENTAL DIRECTOR Myelodysplastic syndrome (HCC) Chronic anemia DIFFERENTIAL AUTO Routine 02/03/2025 9:2 0 AM DENTAL DIRECTOR Myelodysplastic syndrome (HCC) COMPREHENSIVE METABOLIC PANEL Routine 02/03/2025 9:20 AM DENTAL DIRECTOR Myelodysplastic syndrome (HCC) CBC WITH AUTO DIFFERENTIAL Routine 02/03/2025 9:20 AM DENTAL DIRECTOR Myelodysplastic syndrome (HCC) EGFR Routine 01/27/2025 9:35 AM CDT Myelodysplastic syndrome (HCC) Chronic anemia COMPREHENSIVE METABOLIC PANEL Routine 01/27/2025 9:35 AM CDT Myelodysplastic syndrome (HCC) Chronic anemia DIFFERENTIAL AUTO Routine 01/27/2025 9:3 5 AM CDT CBC WITH AUTO DIFFERENTIAL Routine 01/27/2025 9:35 AM CDT TRANSFUSE RED BLOOD CELLS Timed 01/20/2025 12:08 [...] Last 3 Months Results * Transfuse RBC (02/03/2025 12:19 PM DENTAL DIRECTOR) Blood us Chalino Chapa MD BLOOD TRANSFUSION ORDERAB LES Final Result * Prepare RBC (02/03/2025 10:33 AM DENTAL DIRECTOR) Unit Number [id number] Product code [id number] [facility] ([place]) Blood Expiration Date [id number] [facility] ([place]) Product Blood Type (for scanning) 5100 [facility] ([place]) Product Blood Type OPOS [facility] ([place]) Dispense Status DISPENSED [facility] ([place]) us Chalino Chapa MD BLOOD BANK PRODUCT ORDERA BLES Final Result [facility] ([place]) [address] [place] [address] Department [place] [address] * Prepare RBC: 1 Units (02/03/2025 10:10 AM DENTAL DIRECTOR) Units requested 1 Comment:Testing performed by : [place], [address] Units requested Ready [facility] ([place]) Comment:Testing performed by : [place], [address] Blood 02/03/2025 10:1 0 AM DENTAL DIRECTOR 02/03/2025 10:10 AM DENTAL DIRECTOR Narrative [facility] ([place]) - 02/03/2025 10:11 AM DENTAL DIRECTOR Are special requirements needed? (All products are leukoreduced and CMV- safe)->No us Chalino Chapa MD BLOOD BANK PRODUCT ORDERA BLES Final Result [facility] ([place] [facility]) [address] [facility] Department [place] [address] * eGFR (02/03/2025 9:20 AM DENTAL DIRECTOR) eGFR 89 >=60 mL/min/1. 73 m2 Comment: [...] was last reviewed 2021. Testing performed by: [facility], [address] [facility], [place], [address] Blood 02/03/2025 9:20 AM DENTAL DIRECTOR 02/03/2025 9:30 AM DENTAL DIRECTOR us Chalino Chapa MD LAB BLOOD ORDERABLES Aylin l Result [facility] ([place]) 1 [facility] Department [place] [address] * (ABNORMAL) Differential, auto (02/03/2025 9:20 AM DENTAL DIRECTOR) Neutrophil abs 1.05(L) 1.50 - 6.50 K/cumm [facility] ([place]) Comment:Testing performed by : [facility] [place], [address] [facility] , Medical Office Bld[address], [place] [address] Imm gran abs 0.02 0.00 - 0.10 K/cumm [facility] ([place]) Comment:Testing performed by : [facility] [address], Medical Office [facility] [address], [place] [address] Lymphocyte abs 0.56(L) 0.80 - 3.30 K/cumm [facility] ([place]) Comment:Testing performed by : [facility] [address], Medical Office [facility] [address], [place] [address] Monocyte abs 0.15(L) 0.20 - 0.80 K/cumm [facility] ([place]) Comment:Testing performed by : [facility] [address], Medical Office [facility] [address], [place] [address] Eosinophil abs 0.02 0.00 - 0.50 K/cumm [facility] ([place]) Comment:Testing performed by : [facility] [address], Medical Office [facility] [address], [place] [address] Basophil abs 0.03 0.00 - 0.10 K/cumm [facility] ([facility]) Comment:Testing performed by : [facility] [address], Medical Office [facility] [address], [place] [address] Neutrophil pct 57.4 % [facility] ([place] [facility]) Comment: Interpretive Data Percent cell count reference ranges are not reported, since discordance with absolute values may lead to misinterpretation of CBC data. Current Interpretive Data was last revised on 2022. Testing performed by: [facility] [address], Medical Office [facility] [address], [place] [address] Imm gran pct 1.1 % [facility] ([place] [facility]) Comment: Interpretive Data Percent cell count reference ranges are not reported, since discordance with absolute values may lead to misinterpretation of CBC data. Current Interpretive Data was last revised on 2022. Testing performed by: [facility] [address], Medical Office [facility] [address], [place] [address] Lymphocyte pct 30.6 % [facility] ([place] [facility]) Comment: Interpretive Data Percent cell count reference ranges are not reported, since discordance with absolute values may lead to misinterpretation of CBC data. Current Interpretive Data was last revised on 2022. Testing performed by: [facility] [address], Medical Office [facility] [address], [place] [address] Monocyte pct 8.2 % [facility] ([place]) Comment: Interpretive Data Percent cell count reference ranges are not reported, since discordance with absolute values may lead to misinterpretation of CBC data. Current Interpretive Data was last revised on 2022. Testing performed by: [facility] [address], Medical Office [facility] [address], [place] [address] Eosinophil pct 1.1 % EMELINA [facility] ([place]) Comment: Interpretive Data Percent cell count reference ranges are not reported, since discordance with absolute values may lead to misinterpretation of CBC data. Current Interpretive Data was last revised on 2022. Testing performed by: [facility] [address], Medical Office [facility] [address], [place] [address] Basophil pct 1.6 % [facility] ([place]) Comment: Interpretive Data Percent cell count reference ranges are not reported, since discordance with absolute values may lead to misinterpretation of CBC data. Current Interpretive Data was last revised on 2022. Testing performed by: [facility] [address], Medical Office [facility] [address], [place] [address] Blood 02/03/2025 9:20 AM DENTAL DIRECTOR 02/03/2025 9:21 AM DENTAL DIRECTOR Chalino Chapa MD LAB BLOOD ORDERABLES Aylin l Result [facility] ([place]) 1 [facility] Department [place] [address] * (ABNORMAL) CBC with auto differential (02/03/2025 9:20 AM DENTAL DIRECTOR) WBC 1.83(L) 3.80 - 9.90 K/cumm [facility] ([place]) Comment:Testing performed by : [facility] [address], Medical Office [facility] [address], [place] [address] Hgb 7.1(L) 11.9 - 15.5 g/dL [facility] ([place]) Comment:Testing performed by : [facility] [address], Medical Office [facility] [address], [place] [address] Hct 22.3(L) 35.6 - 45.5 % [facility] ([place]) Comment:Testing performed by : [facility] [address], Medical Office [address], [place] [address] Plt 192 150 - 400 K/cumm [facility] ([place]) Comment:Testing performed by : [facility] [address], Medical Office [facility] [address], [place] [address] MPV 10.8 9.1 - 12.3 fL [facility] ([place]) Comment:Testing performed by : [facility] [address], Medical Office [facility] [address], [place] [address] RBC 2.14(L) 3.90 - 5.20 M/cumm [facility] ([place]) Comment:Testing performed by : [facility] [address], Medical Office [facility] [address], [place] [address] MCV 104.2(H) 81.3 - 96.4 fL [facility] ([place]) Comment:Testing performed by : [facility] [address], Medical Office [facility] [address], [place] [address] MCH 33.2 27.1 - 33.3 pg [facility] ([place]) Comment:Testing performed by : [facility] [address], Medical Office [facility] [address], [place] [address] MCHC 31.8(L) 32.3 - 35.7 g/dL [facility] ([place]) Comment:Testing performed by : [facility] [address], Medical Office [facility] [address], [place] [address] RDW CV 22.0(H) 11.1 - 14.9 % [facility] ([place]) Comment:Testing performed by : [facility] [address], Medical Office [address], [place] [address] RDW SD 80.3(H) 35.7 - 48.1 fL [facility] ([place]) Comment:Testing performed by : [facility] [place], [address] [facility], Medical Office [address], [place] [address] Blood 02/03/2025 9:20 AM DENTAL DIRECTOR 02/03/2025 9:21 AM DENTAL DIRECTOR Narrative [facility] ([place]) - 02/03/2025 9:23 AM DENTAL DIRECTOR 02/03, 02/10, 02/17 us Chalino Chapa MD LAB BLOOD ORDERABLES Aylin l Result [facility] ([place]) [address] [facility] Department [place] [address] * ABO/Rh (02/03/2025 9:20 AM DENTAL DIRECTOR) ABO/Rh O Positive Comment:Testing performed by : [facility], [address] [facility], [place], [address] Blood 02/03/2025 9:20 AM DENTAL DIRECTOR 02/03/2025 9:35 AM DENTAL DIRECTOR Narrative [facility] ([place]) - 02/03/2025 10:09 AM DENTAL DIRECTOR 01/07, 01/14, 01/21, 01/28 Has the patient had Daratumumab or Isatuximab in the past 6 months?->Unknown us Chalino Chapa MD LAB BLOOD BANK TEST ORDER LAITH Final Result Performing Organization Address City/[facility]/ZIP Co de Phone Number [facility] ([place]) [address] [facility] Department [place] [employer] [place] [address] * Crossmatch (02/03/2025 9:20 AM DENTAL DIRECTOR) Crossmatch Compatible [facility] ([place]) Unit number for crossmatch [id number] [facility] ([place]) Blood 02/03/2025 9:20 AM DENTAL DIRECTOR 02/03/2025 9:35 AM DENTAL DIRECTOR us Chalino Chapa MD LAB BLOOD BANK TEST ORDER LAITH Final Result SABRA ROGERS ([facility] WEST) 1 [facility] Department [place] [address] * Antibody screen (02/03/2025 9:20 AM DENTAL DIRECTOR) Rivera, indirect, Gel Interpretation Negative ABSC Comment:Testing performed by : [facility], [place], [address] Blood 02/03/2025 9:20 AM DENTAL DIRECTOR 02/03/2025 9:35 AM DENTAL DIRECTOR Narrative SABRA ROGERS ([place]DA WEST) - 02/03/2025 10:09 AM DENTAL DIRECTOR 01/07, 01/14, 01/21, 01/28 Has the patient had Daratumumab or Isatuximab in the past 6 months?->Unknown Chalino Chapa MD LAB BLOOD BANK TEST ORDER LAITH Final Result SABRA ROGERS ([facility]DA WEST) 1 [facility] Department [place] [address] * (ABNORMAL) Comprehensive metabolic panel (02/03/2025 9:20 AM DENTAL DIRECTOR) Pathologist [facility] [place] Sodium 136 135 - 145 mmol/L Comment:Testing performed by : [facility], [place], [address] Potassium, pl 4.7 3.3 - 4.9 mmol/L [facility] ([facility]) Comment:Testing performed by : [place], [address] Chloride 99 97 - 110 mmol/L [facility] ([facility]) Comment:Testing performed by : [facility], [place], [address] CO2 33(H) 22 - 32 mmol/L [facility] ([place]) Comment:Testing performed by : [facility], [place], [address] Anion gap 4 2 - 15 mmol/L [facility] ([facility]) Comment:Testing performed by : [facility], [place], [address] BUN 14 6 - 25 mg/dL [facility] ([place]) Comment:Testing performed by : [facility], [place], [address] Creatinine 0.60 0.60 - 1.10 mg/dL [facility] ([facility]) Comment:Testing performed by : [facility], [place], [address] Glucose 154 70 - 199 mg/dL [facility] ([facility]) Comment: Interpretive Data Fasting glucose >/= 126 [...] revised 2022. Testing performed by: [facility], [place], [address] Calcium 9.5 8.5 - 10.3 mg/dL [facility] ([facility]) Comment:Testing performed by : [place], [address] Bilirubin, total 1.1 0.1 - 1.2 mg/dL [facility] ([facility]) Comment:Testing performed by : [facility], [place], [address] Protein, pl 6.0(L) 6.5 - 8.5 g/dL [facility] ([facility]) Comment:Testing performed by : [place], [address] Albumin 4.1 3.5 - 5.0 g/dL [facility] ([facility]) Comment:Testing performed by : [place], [address] Alk phos 48 40 - 130 Units/L [facility] ([place]) Comment:Testing performed by : [place], [address] ALT 82(H) 7 - 45 Units/L [facility] ([place]) Comment:Testing performed by : [facility], [place], [address] AST 48(H) 10 - 45 Units/L [facility] ([facility]) Comment:Testing performed by : [place], [address] Blood 02/03/2025 9:20 AM DENTAL DIRECTOR 02/03/2025 9:30 AM DENTAL DIRECTOR us Chalino Chapa MD LAB BLOOD ORDERABLES Aylin l Result SABRA ROGERS ([facility] WEST) 1 [facility] Department [place] [address] * eGFR (01/27/2025 9:35 AM CDT) eGFR 88 >=60 mL/min/1. 73 m2 Comment: Interpretive Data [...] was last reviewed 2021. Testing performed by: [facility], [facility], [place], [address] Blood 01/27/2025 9:35 AM CDT 01/27/2025 11:34 AM CDT us Chalino Chapa MD LAB BLOOD ORDERABLES Aylin l Result SABRA ROGERS ([place]DA WEST) 1 [facility] Department [place] [address] * Differential, auto (01/27/2025 9:35 AM CDT) Neutrophil abs 6.37 1.50 - 6.50 K/cumm Comment:Testing performed by : [facility], [facility], [place], [address] Imm gran abs 0.04 0.00 - 0.10 K/cumm [facility] ([facility]) Comment:Testing performed by : [facility], [facility], [place], [address] Lymphocyte abs 0.83 0.80 - 3.30 K/cumm [facility] ([facility]) Comment:Testing performed by : [facility], [facility], [place], [address] Monocyte abs 0.25 0.20 - 0.80 K/cumm [facility] ([facility]) Comment:Testing performed by : [facility], [facility], [place], [address] Eosinophil abs 0.09 0.00 - 0.50 K/cumm [facility] ([facility]) Comment:Testing performed by : [facility], [facility], [place], [address] Basophil abs 0.02 0.00 - 0.10 K/cumm [facility] ([facility]) Comment:Testing performed by : [facility], [facility], [place], [address] Neutrophil pct 83.8 % [facility] ([facility]) Comment: Interpretive Data Percent cell count reference ranges are not reported, since discordance with absolute values may lead to misinterpretation of CBC data. Current Interpretive Data was last revised on 2017. Testing performed by: [facility], [facility], [place], [address] Imm gran pct 0.5 % [facility] ([facility]) Comment: Interpretive Data Percent cell count reference ranges are not reported, since discordance with absolute values may lead to misinterpretation of CBC data. Current Interpretive Data was last revised on 2017. Testing performed by: [facility], [place], [address] Lymphocyte pct 10.9 % [facility] ([facility]) Comment: Interpretive Data Percent cell count reference ranges are not reported, since discordance with absolute values may lead to misinterpretation of CBC data. Current Interpretive Data was last revised on 2017. Testing performed by: [place], [address] Monocyte pct 3.3 % [facility] ([place]) Comment: Interpretive Data Percent cell count reference ranges are not reported, since discordance with absolute values may lead to misinterpretation of CBC data. Current Interpretive Data was last revised on 2017. Testing performed by: [facility], [place], [address] Eosinophil pct 1.2 % EMELINA ROGERS ([place]IO) Comment: Interpretive Data Percent cell count reference ranges are not reported, since discordance with absolute values may lead to misinterpretation of CBC data. Current Interpretive Data was last revised on 2017. Testing performed by: [facility], [place], [address] Basophil pct 0.3 % SABRA ROGERS ([place]UR[place]IO) Comment: Interpretive Data Percent cell count reference ranges are not reported, since discordance with absolute values may lead to misinterpretation of CBC data. Current Interpretive Data was last revised on 2017. Testing performed by: [facility], [place], [address] Blood 01/27/2025 9:35 AM CDT 01/27/2025 10:27 AM CDT us Chalino Chapa MD LAB BLOOD ORDERABLES Aylin freedman Result SABRA ROGERS ([facility]ONDA WEST) 1 [facility] Department [place] [address] * (ABNORMAL) CBC with auto differential (01/27/2025 9:35 AM CDT) WBC 7.60 3.80 - 9.90 K/cumm Comment:Testing performed by : [facility], [place], [address] Hgb 7.7(L) 11.9 - 15.5 g/dL SABRA ROGERS ([place]UR[place]IO) Comment:Testing performed by : [place], [address] Hct 24.1(L) 35.6 - 45.5 % SABRA ROGERS ([place]IO) Comment:Testing performed by : [facility], [place], [address] Plt 175 150 - 400 K/cumm SABRA ROGERS ([place]ARICIO) Comment:Testing performed by : [place], [address] MPV 12.2 9.1 - 12.3 fL [facility] ([facility]) Comment:Testing performed by : [place], RBC 2.38(L) 3.90 - 5.20 M/cumm [facility] ([facility]) Comment:Testing performed by : [place], MCV 101.3(H) 81.3 - 96.4 fL [facility] ([facility]) Comment:Testing performed by : [facility], [place], [place], MCH 32.4 27.1 - 33.3 pg [facility] ([facility]) Comment:Testing performed by : [facility], [place], MCHC 32.0(L) 32.3 - 35.7 g/dL [facility] ([facility]) Comment:Testing performed by : [place], [place] CV 21.8(H) 11.1 - 14.9 % [facility] ([facility]) Comment:Testing performed by : [place], [address] RDW SD 76.0(H) 35.7 - 48.1 fL [facility] ([facility]) Comment:Testing performed by : [facility], [place], [address] NRBC abs 0.00 0.00 - 0.01 K/cumm [facility] ([facility]) Comment:Testing performed by : [facility], [place], [address] Blood 01/27/2025 9:35 AM CDT 01/27/2025 10:27 AM CDT us Chalino Chapa MD LAB BLOOD ORDERABLES Aylin freedman Result [facility] ([facility] WEST) [address] [place] [address] Department [place] [address] * (ABNORMAL) Comprehensive metabolic panel (01/27/2025 9:35 AM CDT) Sodium 141 135 - 145 mmol/L Comment:Testing performed by : [facility], [facility], [place], [address] Potassium, pl 3.4 3.3 - 4.9 mmol/L [facility] ([place]) Comment:Testing performed by : [facility], [facility], [place], [address] Chloride 100 97 - 110 mmol/L [facility] ([place]) Comment:Testing performed by : [facility], [facility], [place], [address] CO2 33(H) 22 - 32 mmol/L [facility] ([place]) Comment:Testing performed by : [facility], [facility], [place], [address] Anion gap 8 2 - 15 mmol/L [facility] ([facility]) Comment:Testing performed by : [facility], [place], [address] BUN 8 6 - 25 mg/dL [facility] ([place]) Comment:Testing performed by : [facility], [place], [address] Creatinine 0.63 0.60 - 1.10 mg/dL [facility] ([place]) Comment:Testing performed by : [facility], [place], [address] Glucose 142 70 - 199 mg/dL [facility] ([facility]) Comment: Interpretive Data Fasting glucose >/= 126 [...] revised 2022. Testing performed by: [facility], [place], [address] Calcium 9.3 8.5 - 10.3 mg/dL [facility] ([place]) Comment:Testing performed by : [facility], [place], [address] Bilirubin, total 1.0 0.1 - 1.2 mg/dL [facility] ([place]) Comment:Testing performed by : [facility], [facility], [place], [address] Protein, pl 5.8(L) 6.5 - 8.5 g/dL [facility] ([place]) Comment:Testing performed by : [facility], [place], [address] Albumin 3.9 3.5 - 5.0 g/dL [facility] ([place]) Comment:Testing performed by : [facility], [place], [address] Alk phos 49 40 - 130 Units/L [facility] ([facility]) Comment:Testing performed by : [place], [address] ALT 57(H) 7 - 45 Units/L [facility] ([facility]) Comment:Testing performed by : [facility], [place], [address] AST 36 10 - 45 Units/L [facility] ([facility]) Comment:Testing performed by : [facility], [place], [address] Blood 01/27/2025 9:35 AM CDT 01/27/2025 11:34 AM CDT us Chalino Chapa MD LAB BLOOD ORDERABLES Aylin l Result [facility] ([facility]) 1 [facility] Department [place] [address] * Transfuse RBC (01/20/2025 1:40 PM CDT) Blood us Chalino Chapa MD BLOOD TRANSFUSION ORDERAB LES Final Result * Prepare RBC (01/20/2025 11:32 AM CDT) Unit Number [id number] Product code [id number] [facility] ([place]) Blood Expiration Date [facility] ([place]) Product Blood Type (for scanning) 5100 [facility] ([place]) Product Blood Type OPOS [facility] ([place]) Dispense Status DISPENSED [facility] ([place]) us Chalino Chapa MD BLOOD BANK PRODUCT ORDERA BLES Final Result SABRA ROGERS ([facility]ONDA WEST) 1 [facility] Department [place] [address] * Prepare RBC: 1 Units (01/20/2025 11:26 AM CDT) Units requested 1 Comment:Testing performed by : [facility], [facility], [place], [address] Units requested Ready EMMY ROGERS (ROTONDA WEST) Comment:Testing performed by : [place], [address] Blood 01/20/2025 11:2 6 AM CDT 01/20/2025 11:26 AM CDT Narrative SABRA ROGERS ([place]ONDA WEST) - 01/20/2025 11:26 AM CDT Are special requirements needed? (All products are leukoreduced and CMV- safe)->No us Chalino Chapa MD BLOOD BANK PRODUCT ORDERA BLES Final Result Performing Organization Address City/[facility]/ZIP Co de Phone Number SABRA ROGERS (ROTONDA WEST) 1 [facility] Department [place] [address] * (ABNORMAL) Differential, auto (01/20/2025 10:25 AM CDT) Neutrophil abs 1.89 1.50 - 6.50 K/cumm Comment:Testing performed by : [place], [address] Imm gran abs 0.04 0.00 - 0.10 K/cumm [facility] ([facility]) Comment:Testing performed by : [place], [address] Lymphocyte abs 0.46(L) 0.80 - 3.30 K/cumm [facility] ([facility]) Comment:Testing performed by : [place], [address] Monocyte abs 0.19(L) 0.20 - 0.80 K/cumm [facility] ([facility]) Comment:Testing performed by : [facility], [facility], [place], [address] Eosinophil abs 0.03 0.00 - 0.50 K/cumm [facility] ([facility]) Comment:Testing performed by : [facility], [facility], [place], [address] Basophil abs 0.02 0.00 - 0.10 K/cumm [facility] ([facility]) Comment:Testing performed by : [place], [address] Neutrophil pct 71.9 % [facility] ([facility]) Comment: Interpretive Data Percent cell count reference ranges are not reported, since discordance with absolute values may lead to misinterpretation of CBC data. Current Interpretive Data was last revised on 2017. Testing performed by: [place], [address] Imm gran pct 1.5 % [facility] ([facility]) Comment: Interpretive Data Percent cell count reference ranges are not reported, since discordance with absolute values may lead to misinterpretation of CBC data. Current Interpretive Data was last revised on 2017. Testing performed by: [place], [address] Lymphocyte pct 17.5 % [facility] ([facility]) Comment: Interpretive Data Percent cell count reference ranges are not reported, since discordance with absolute values may lead to misinterpretation of CBC data. Current Interpretive Data was last revised on 2017. Testing performed by: [place], [address] Monocyte pct 7.2 % [facility] ([facility]) Comment: Interpretive Data Percent cell count reference ranges are not reported, since discordance with absolute values may lead to misinterpretation of CBC data. Current Interpretive Data was last revised on 2017. Testing performed by: [place], [address] Eosinophil pct 1.1 % [facility] ([facility]) Comment: Interpretive Data Percent cell count reference ranges are not reported, since discordance with absolute values may lead to misinterpretation of CBC data. Current Interpretive Data was last revised on 2017. Testing performed by: [place], [address] Basophil pct 0.8 % [facility] ([facility]) Comment: Interpretive Data Percent cell count reference ranges are not reported, since discordance with absolute values may lead to misinterpretation of CBC data. Current Interpretive Data was last revised on 2017. Testing performed by: [place], [address] Blood 01/20/2025 10:2 5 AM CDT 01/20/2025 10:46 AM CDT us Chalino Chapa MD LAB BLOOD ORDERABLES Aylin freedman Result [facility] ([facility]) 1 [facility] Department [place] [address] * (ABNORMAL) CBC with auto differential (01/20/2025 10:25 AM CDT) WBC 2.63(L) 3.80 - 9.90 K/cumm Comment:Testing performed by : [facility], [place], [address] Hgb 7.2(L) 11.9 - 15.5 g/dL [facility] ([facility]) Comment:Testing performed by : [place], [address] Hct 22.4(L) 35.6 - 45.5 % [facility] ([place]) Comment:Testing performed by : [place], Plt 184 150 - 400 K/cumm [facility] ([facility]) Comment:Testing performed by : [place], [address] MPV 10.9 9.1 - 12.3 fL [facility] ([place]) Comment:Testing performed by : [place], [address] RBC 2.07(L) 3.90 - 5.20 M/cumm [facility] ([place]) Comment:Testing performed by : [place], [address] MCV 108.2(H) 81.3 - 96.4 fL [facility] ([place]) Comment:Testing performed by : [facility] [address], [place], [address] MCH 34.8(H) 27.1 - 33.3 pg [facility] ([facility]) Comment:Testing performed by : [facility], [place], [address] MCHC 32.1(L) 32.3 - 35.7 g/dL [facility] ([facility]) Comment:Testing performed by : [facility], [place], [address] RDW CV 21.2(H) 11.1 - 14.9 % [facility] ([facility]) Comment:Testing performed by : [facility], [place], [address] RDW SD 80.7(H) 35.7 - 48.1 fL [facility] ([facility]) Comment:Testing performed by : [facility], [place], [address] NRBC abs 0.04(H) 0.00 - 0.01 K/cumm SABRA ROGERS ([place]ONDA WEST) Comment:Testing performed by : [facility], [place], [address] Blood 01/20/2025 10:2 5 AM CDT 01/20/2025 10:46 AM CDT Chalino Chapa MD LAB BLOOD ORDERABLES Aylin l Result [facility] 1 [facility] Department [place] [address] * ABO/Rh (01/20/2025 10:25 AM CDT) ABO/Rh O Positive Comment:Testing performed by : [facility], [place], [address] Blood 01/20/2025 10:2 5 AM CDT 01/20/2025 10:46 AM CDT Narrative SABRA ROGERS ([place]DA WEST) - 01/20/2025 11:24 AM CDT Sammi= weekly type and screen for possible blood transfusion on 12/10, 12/17, 12/24, and 12/31/2024 Has the patient had Daratumumab or Isatuximab in the past 6 months?->No us Chalino Chapa MD LAB BLOOD BANK TEST ORDER LAITH Final Result SABRA [facility] ([facility]ST) 1 [facility] Department [place] [employer] [place] [address] * Crossmatch (01/20/2025 10:25 AM CDT) Crossmatch Compatible SABRA Silva (ROTONDA WEST) Unit number for crossmatch [id number] AMYPAOLA [facility] ([place]ST) Blood 01/20/2025 10:2 5 AM CDT 01/20/2025 10:46 AM CDT us Chalino Chapa MD LAB BLOOD BANK TEST ORDER LAITH Final Result Performing Organization Address [facility] Co de Phone Number SABRA [facility] ([place]DA WEST) 1 [place] [address] * Antibody screen (01/20/2025 10:25 AM CDT) Rivera, indirect, Gel Interpretation Negative ABSC Comment:Testing performed by : [facility], [facility], [place], [address] Blood 01/20/2025 10:2 5 AM CDT 01/20/2025 10:46 AM CDT Narrative SABRA [facility] ([place]) - 01/20/2025 11:24 AM CDT Sammi= weekly type and screen for possible blood transfusion on 12/10, 12/17, 12/24, and 12/31/2024 Has the patient had Daratumumab or Isatuximab in the past 6 months?->No us Chalino Chapa MD LAB BLOOD BANK TEST ORDER LAITH Final Result SABRA [facility] ([place]) 1 [place] [address] * Transfuse RBC (01/15/2025 1:33 PM CDT) Blood us Chalino Chapa MD BLOOD TRANSFUSION ORDERAB LES Final Result * Prepare RBC (01/15/2025 11:39 AM CDT) Unit Number [id number] Product code [id number] SABRA ROGERS ([place]) Blood Expiration Date SABRA ROGERS ([place]) Product Blood Type (for scanning) 5100 [facility] ([place]) Product Blood Type OPOS SABRA ROGERS ([place]) Dispense Status DISPENSED SABRA ROGERS ([place]) us Chalino Chapa MD BLOOD BANK PRODUCT ORDERA BLES Final Result SBARA ROGERS ([place]IO) [address] [place] [address] Department [place] [address] * Prepare RBC: 1 Units (01/15/2025 11:33 AM CDT) Units requested 1 Comment:Testing performed by : [place], [address] Units requested Ready AMY WOLF SUE ([place]DA WEST) Comment:Testing performed by : [place], [address] Blood 01/15/2025 11:3 3 AM CDT 01/15/2025 11:33 AM CDT Narrative SABRA ROGERS ([place]ST) - 01/15/2025 11:58 AM CDT Are special requirements needed? (All products are leukoreduced and CMV- safe)->Yes us Chalino Chapa MD BLOOD BANK PRODUCT ORDERA BLES Final Result SABRA ROGERS ([place]DA WEST) [address] [place] [address] Department [place] [place] [address] * (ABNORMAL) Differential, auto (01/15/2025 10:35 AM CDT) Neutrophil abs 1.30(L) 1.50 - 6.50 K/cumm [facility] ([facility]) Comment:Testing performed by : [facility] [address], Medical Office [address], [place] [address] Imm gran abs 0.02 0.00 - 0.10 K/cumm [facility] ([place]) Comment:Testing performed by : [facility] [address], Medical Office [address], [place] [address] Lymphocyte abs 0.50(L) 0.80 - 3.30 K/cumm [facility] ([place]) Comment:Testing performed by : [facility] [address], Medical Office [address], [place] [address] Monocyte abs 0.15(L) 0.20 - 0.80 K/cumm [facility] ([facility]) Comment:Testing performed by : [facility] [address], Medical Office [address], [place] [address] Eosinophil abs 0.02 0.00 - 0.50 K/cumm [facility] ([place]) Comment:Testing performed by : [facility] [address], Medical Office [address], [place] [address] Basophil abs 0.02 0.00 - 0.10 K/cumm [facility] ([facility]) Comment:Testing performed by : [facility] [address], Medical Office [address], [place] [address] Neutrophil pct 64.6 % [facility] ([facility]) Comment: Interpretive Data Percent cell count reference ranges are not reported, since discordance with absolute values may lead to misinterpretation of CBC data. Current Interpretive Data was last revised on 2022. Testing performed by: [facility] [address], Medical Office [address], [place] [address] Imm gran pct 1.0 % [facility] ([facility]) Comment: Interpretive Data Percent cell count reference ranges are not reported, since discordance with absolute values may lead to misinterpretation of CBC data. Current Interpretive Data was last revised on 2022. Testing performed by: [facility] [address], Medical Office [address], [place] [address] Lymphocyte pct 24.9 % [facility] ([place]) Comment: Interpretive Data Percent cell count reference ranges are not reported, since discordance with absolute values may lead to misinterpretation of CBC data. Current Interpretive Data was last revised on 2022. Testing performed by: [facility] [address], Medical Office [facility] [address], [place] [address] Monocyte pct 7.5 % SABRA ROGERS ([place]IO) Comment: Interpretive Data Percent cell count reference ranges are not reported, since discordance with absolute values may lead to misinterpretation of CBC data. Current Interpretive Data was last revised on 2022. Testing performed by: [facility] [address], Medical Office [facility] [address], [place] [address] Eosinophil pct 1.0 % CERNE R SUE ([place]UR[place]IO) Comment: Interpretive Data Percent cell count reference ranges are not reported, since discordance with absolute values may lead to misinterpretation of CBC data. Current Interpretive Data was last revised on 2022. Testing performed by: [facility] [address], Medical Office [facility] [address], [place] [address] Basophil pct 1.0 % SABRA ROGERS ([place]) Comment: Interpretive Data Percent cell count reference ranges are not reported, since discordance with absolute values may lead to misinterpretation of CBC data. Current Interpretive Data was last revised on 2022. Testing performed by: [facility] [address], Medical Office [facility] [address], [place] [address] Blood 01/15/2025 10:3 5 AM CDT 01/15/2025 10:38 AM CDT us Chalino Chapa MD LAB BLOOD ORDERABLES Aylin freedman Result SABRA ROGERS (MAURICIO) 1 [facility] [place] [address] * (ABNORMAL) CBC with auto differential (01/15/2025 10:35 AM CDT) WBC 2.01(L) 3.80 - 9.90 K/cumm SABRA ROGERS (MAURICIO) Comment:Testing performed by : [facility] [address], Medical Office [address], [place] [address] Hgb 6.5(L) 11.9 - 15.5 g/dL [facility] ([place]URICIO) Comment:Testing performed by : [facility] [address], Medical Office [facility] [address], [place] [address] Hct 20.1(L) 35.6 - 45.5 % [facility] ([place]IO) Comment:Testing performed by : [facility] [address], Medical Office [facility] [address], [place] [address] Plt 174 150 - 400 K/cumm [facility] ([place]URICIO) Comment:Testing performed by : [facility] [address], Medical Office [facility] [address], [place] [address] MPV 10.6 9.1 - 12.3 fL [facility] ([place]UR[place]) Comment:Testing performed by : [facility] [address], Medical Office [facility] [address], [place] [address] RBC 1.80(L) 3.90 - 5.20 M/cumm [facility] ([place]) Comment:Testing performed by : [facility] [address], Medical Office [facility] [address], [place] [address] MCV 111.7(H) 81.3 - 96.4 fL [facility] ([place]URICIO) Comment:Testing performed by : [facility] [address], Medical Office [facility] [address], [place] [address] MCH 36.1(H) 27.1 - 33.3 pg [facility] ([place]URICIO) Comment:Testing performed by : [facility] [address], Medical Office [facility] [address], [place] [address] MCHC 32.3 32.3 - 35.7 g/dL [facility] ([place]URICIO) Comment:Testing performed by : [facility] [address], Medical Office [facility] [address], [place] [address] RDW CV 21.4(H) 11.1 - 14.9 % [facility] ([place]UR[place]IO) Comment:Testing performed by : [facility] [address], Medical Office [facility] B [facility] [address], [place] [address] RDW SD 86.6(H) 35.7 - 48.1 fL SABRA ROGERS (ROTONDA WEST) Comment:Testing performed by : [facility] [place], [address], Medical Office [facility] B [facility] [address], [place] [address] Blood 01/15/2025 10:3 5 AM CDT 01/15/2025 10:38 AM CDT Narrative SABRA ROGERS (ROTONDA WEST) - 01/15/2025 10:47 AM CDT 01/07, 01/14, 01/21, 01/28 us Chalino Chapa MD LAB BLOOD ORDERABLES Aylin l Result SABRA ROGERS (ROTONDA WEST) 1 [facility] Department [place] [employer] [place] [address] * ABO/Rh (01/15/2025 10:35 AM CDT) ABO/Rh O Positive Comment:Testing performed by : [facility], One [facility], [place], [address] Blood 01/15/2025 10:3 5 AM CDT 01/15/2025 10:52 AM CDT Narrative SABRA ROGERS (ROTONDA WEST) - 01/15/2025 11:30 AM CDT Chapa= weekly type and screen for possible blood transfusion on 12/10, 12/17, 12/24, and 12/31/2024 Has the patient had Daratumumab or Isatuximab in the past 6 months?->No us Chalino Chapa MD LAB BLOOD BANK TEST ORDER LAITH Final Result SABRA [facility] (ROTONDA WEST) 1 [facility] Department [place] [employer] [place] [address] * Crossmatch (01/15/2025 10:35 AM CDT) Crossmatch Compatible SABRA Silva (ROTONDA WEST) Unit number for crossmatch [id number] SABRA ROGERS (MAURICIO) Blood 01/15/2025 10:3 5 AM CDT 01/15/2025 10:52 AM CDT us Chalino Chapa MD LAB BLOOD BANK TEST ORDER LAITH Final Result Performing Organization Address [facility] Co de Phone Number SABRA ROGERS (MAURICIO) [address] [place] [address] Department [place] [address] * Antibody screen (01/15/2025 10:35 AM CDT) Rivera, indirect, Gel Interpretation Negative ABSC Comment:Testing performed by : [facility], [place], [address] Blood 01/15/2025 10:3 5 AM CDT 01/15/2025 10:52 AM CDT N[facility]ative [facility] - 01/15/2025 11:30 AM CDT Chapa= weekly type and screen for possible blood transfusion on 12/10, 12/17, 12/24, and 12/31/2024 Has the patient had Daratumumab or Isatuximab in the past 6 months?->No Chalino Chapa MD LAB BLOOD BANK TEST ORDER LAITH Final Result Performing Organization Address City/[facility]/ZIP Co de Phone Number SABRA ROGERS (MAURICIO) [address] [place] [address] Department [place] [address] * Transfuse RBC (01/06/2025 12:34 PM CDT) Blood us Chalino Chapa MD BLOOD TRANSFUSION ORDERAB LES Final Result * Prepare RBC (01/06/2025 10:34 AM CDT) Unit Number [id number] Product code [id number] [facility] ([place]ICIO) Blood Expiration Date [id number] [facility] ([place]) Product Blood Type (for scanning) 9500 [facility] ([place]) Product Blood Type ONEG [facility] ([place]) Dispense Status DISPENSED [facility] ([place]IO) us Chalino Chapa MD BLOOD BANK PRODUCT ORDERA BLES Final Result SABRA ROGERS (ROTONDA WEST) 1 [facility] of [employer] [place] [id number] * Prepare RBC: 1 Units (01/06/2025 10:08 AM CDT) Units requested 1 Comment:Testing performed by : [facility], [facility], [place], [address] Units requested Ready AMY WOLF [facility] (ROTONDA WEST) Comment:Testing performed by : [facility], [place], [address] Blood 01/06/2025 10:0 8 AM CDT 01/06/2025 10:08 AM CDT Narrative SABRA ROGERS (ROTONDA WEST) - 01/06/2025 10:08 AM CDT Are special requirements needed? (All products are leukoreduced and CMV- safe)->No us Chalino Chapa MD BLOOD BANK PRODUCT ORDERA BLES Final Result Performing Organization Address [facility] Co de Phone Number SABRA ROGERS (ROTONDA WEST) 1 [facility] [place] [place] [address] * Crossmatch (01/06/2025 10:06 AM CDT) Crossmatch Compatible AMYPAOLA Silva KASEY (ROTONDA WEST) Unit number for crossmatch [id number] SABRA ROGERS (ROTONDA WEST) Blood 01/06/2025 10:0 6 AM CDT 01/06/2025 10:06 AM CDT us Chalino Chapa MD LAB BLOOD BANK TEST ORDER LAITH Final Result SABRA ROGERS (ROTONDA WEST) 1 [facility] Department [place] [place] [address] * (ABNORMAL) Differential, auto (01/06/2025 9:10 AM CDT) Neutrophil abs 1.18(L) 1.50 - 6.50 K/cumm [facility] (ROTONDA WEST) Comment:Testing performed by : [facility] [address], Medical Office [facility] [address], [place] [address] Imm gran abs 0.02 0.00 - 0.10 K/cumm [facility] (ROTONDA WEST) Comment:Testing performed by : [facility] [address], Medical Office [facility] [address], [place] [address] Lymphocyte abs 0.48(L) 0.80 - 3.30 K/cumm [facility] (ROTONDA WEST) Comment:Testing performed by : [facility] [address], Medical Office [facility] [address], [place] [address] Monocyte abs 0.16(L) 0.20 - 0.80 K/cumm [facility] (ROTONDA WEST) Comment:Testing performed by : [facility] [address], Medical Office [facility] [address], [place] [address] Eosinophil abs 0.11 0.00 - 0.50 K/cumm [facility] (ROTONDA WEST) Comment:Testing performed by : [facility] [address], Medical Office [facility] [address], [place] [address] Basophil abs 0.03 0.00 - 0.10 K/cumm [facility] (ROTONDA WEST) Comment:Testing performed by : [facility] [address], Medical Office [facility] [address], [place] [address] Neutrophil pct 59.6 % CERNE R [facility] (ROTONDA WEST) Comment: Interpretive Data Percent cell count reference ranges are not reported, since discordance with absolute values may lead to misinterpretation of CBC data. Current Interpretive Data was last revised on 2022. Testing performed by: [facility] [address], Medical Office [facility] [address], [place] [address] Imm gran pct 1.0 % [facility] (ROTONDA WEST) Comment: Interpretive Data Percent cell count reference ranges are not reported, since discordance with absolute values may lead to misinterpretation of CBC data. Current Interpretive Data was last revised on 2022. Testing performed by: [facility] [address], Medical Office [facility] [address], [place] [address] Lymphocyte pct 24.2 % CERNE R [facility] ([place]URICIO) Comment: Interpretive Data Percent cell count reference ranges are not reported, since discordance with absolute values may lead to misinterpretation of CBC data. Current Interpretive Data was last revised on 2022. Testing performed by: [facility] [address], Medical Office [facility] [address], [place] [address] Monocyte pct 8.1 % [facility] (MAURICIO) Comment: Interpretive Data Percent cell count reference ranges are not reported, since discordance with absolute values may lead to misinterpretation of CBC data. Current Interpretive Data was last revised on 2022. Testing performed by: [facility] [address], Medical Office [facility] [address], [place] [address] Eosinophil pct 5.6 % [facility]NE R [facility] (MAURICIO) Comment: Interpretive Data Percent cell count reference ranges are not reported, since discordance with absolute values may lead to misinterpretation of CBC data. Current Interpretive Data was last revised on 2022. Testing performed by: [facility] [address], Medical Office [facility] B [facility] [address], [place] [address] Basophil pct 1.5 % [facility]ER[facility]A [facility] (MAURICIO) Comment: Interpretive Data Percent cell count reference ranges are not reported, since discordance with absolute values may lead to misinterpretation of CBC data. Current Interpretive Data was last revised on 2022. Testing performed by: [facility] [address], Medical Office [facility] B [facility] [address], [place] [address] Blood 01/06/2025 9:10 AM CDT 01/06/2025 9:14 AM CDT us Chalino Chapa MD LAB BLOOD ORDERABLES Aylin freedman Result SABRA ROGERS (MAURICIO) 1 [facility] Department of Laboratories [place], [place] [address] * (ABNORMAL) CBC with auto differential (01/06/2025 9:10 AM CDT) WBC 1.98(L) 3.80 - 9.90 K/cumm [facility] ([place]UR[place]IO) Comment:Testing performed by : [facility] [address], Medical Office [facility] [address], [place] [address] Hgb 7.1(L) 11.9 - 15.5 g/dL [facility] (MAURICIO) Comment:Testing performed by : [facility] [address], Medical Office [facility] [address], [place] [address] Hct 21.9(L) 35.6 - 45.5 % [facility] ([place]UR[place]IO) Comment:Testing performed by : [facility] [address], Medical Office [facility] [address], [place] [address] Plt 154 150 - 400 K/cumm [facility] (MAURICIO) Comment:Testing performed by : [facility] [address], Medical Office [facility] [address], [place] [address] MPV 11.2 9.1 - 12.3 fL [facility] ([place]URICIO) Comment:Testing performed by : [facility] [address], Medical Office [facility] [address], [place] [address] RBC 1.92(L) 3.90 - 5.20 M/cumm [facility] ([place]URICIO) Comment:Testing performed by : [facility] [address], Medical Office [facility] [address], [place] [address] MCV 114.1(H) 81.3 - 96.4 fL [facility] (MAURICIO) Comment:Testing performed by : [facility] [address], Medical Office [facility] [address], [place] [address] MCH 37.0(H) 27.1 - 33.3 pg [facility] (MAURICIO) Comment:Testing performed by : [facility] [address], Medical Office [address], [place] [address] MCHC 32.4 32.3 - 35.7 g/dL [facility] (MAURICIO) Comment:Testing performed by : [facility] [address], Medical Office [address], [place] [address] RDW CV 21.4(H) 11.1 - 14.9 % [facility] (MAURICIO) Comment:Testing performed by : [facility] [address], Medical Office [address], [place] [address] RDW SD 88.7(H) 35.7 - 48.1 fL SABRA ROGERS (MAURICIO) Comment:Testing performed by : [facility] [address], Medical Office [address], [place] [address] Blood 01/06/2025 9:10 AM CDT 01/06/2025 9:14 AM CDT Narrative SABRA ROGERS (ROTONDA WEST) - 01/06/2025 9:17 AM CDT 01/07, 01/14, 01/21, 01/28 us Chalino Chapa MD LAB BLOOD ORDERABLES Aylin l Result Performing Organization Address City/[facility]/ZIP Co de Phone Number SABRA ROGERS (ROTONDA WEST) 1 [facility] Department [place] [employer] [place] [address] * ABO/Rh (01/06/2025 9:10 AM CDT) ABO/Rh O Positive Comment:Testing performed by : [place], [address] Blood 01/06/2025 9:10 AM CDT 01/06/2025 9:26 AM CDT Narrative SABRA ROGERS (ROTONDA WEST) - 01/06/2025 10:04 AM CDT 01/07, 01/14, 01/21, 01/28 Has the patient had Daratumumab or Isatuximab in the past 6 months?->Unknown us Chalino Chapa MD LAB BLOOD BANK TEST ORDER LAITH Final Result Performing Organization Address City/[facility]/ZIP Co de Phone Number SABRA [facility] (ROTONDA WEST) [address] [place] [address] Department Specialty [place] [address] * Antibody screen (01/06/2025 9:10 AM CDT) Rivera, indirect, Gel Interpretation Negative ABSC Comment:Testing performed by : [facility], [place], [address] Blood 01/06/2025 9:10 AM CDT 01/06/2025 9:26 AM CDT Narrative SABRA ROGERS (ROTONDA WEST) - 01/06/2025 10:04 AM CDT 01/07, 01/14, 01/21, 01/28 Has the patient had Daratumumab or Isatuximab in the past 6 months?->Unknown us Chalino Chapa MD LAB BLOOD BANK TEST ORDER LAITH Final Result SABRA ROGERS (ROTONDA WEST) 1 [facility] Department [place] [address] * eGFR (12/31/2024 8:55 AM CDT) eGFR [...] was last reviewed 2021. Testing performed by: [facility], One [facility], [place], [address] Blood 12/31/2024 8:55 AM CDT 12/31/2024 4:08 PM CDT us Chalino Chapa MD LAB BLOOD ORDERABLES Aylin l Result SABRA ROGERS (ROTONDA WEST) 1 [facility] Department [place] [address] * (ABNORMAL) Differential, auto (12/31/2024 8:55 AM CDT) Neutrophil abs 1.01(L) 1.50 - 6.50 K/cumm [facility] ([place]UR[place]IO) Comment:Testing performed by : [facility] [address], Medical Office [facility] [address], [place] [address] Imm gran abs 0.00 0.00 - 0.10 K/cumm [facility] (ROTONDA WEST) Comment:Testing performed by : [facility] [address], Medical Office [facility] [address], [place] [address] Lymphocyte abs 0.39(L) 0.80 - 3.30 K/cumm [facility] (ROTONDA WEST) Comment:Testing performed by : [facility] [address], Medical Office [facility] [address], [place] [address] Monocyte abs 0.14(L) 0.20 - 0.80 K/cumm [facility] (ROTONDA WEST) Comment:Testing performed by : [facility] [address], Medical Office [facility] [address], [place] [address] Eosinophil abs 0.04 0.00 - 0.50 K/cumm [facility] (ROTONDA WEST) Comment:Testing performed by : [facility] [address], Medical Office [facility] [address], [place] [address] Basophil abs 0.02 0.00 - 0.10 K/cumm [facility] (ROTONDA WEST) Comment:Testing performed by : [facility] [address], Medical Office [facility] [address], [place] [address] Neutrophil pct 63.0 % [facility]NE R [facility] (ROTONDA WEST) Comment: Interpretive Data Percent cell count reference ranges are not reported, since discordance with absolute values may lead to misinterpretation of CBC data. Current Interpretive Data was last revised on 2022. Testing performed by: [facility] [address], Medical Office [address], [place] [address] Imm gran pct 0.0 % [facility] (ROTONDA WEST) Comment: Interpretive Data Percent cell count reference ranges are not reported, since discordance with absolute values may lead to misinterpretation of CBC data. Current Interpretive Data was last revised on 2022. Testing performed by: [facility] [address], Medical Office [facility] [address], [place] [address] Lymphocyte pct 24.4 % [facility] R [facility] (MAURICIO) Comment: Interpretive Data Percent cell count reference ranges are not reported, since discordance with absolute values may lead to misinterpretation of CBC data. Current Interpretive Data was last revised on 2022. Testing performed by: [facility] [address], Medical Office [facility] [address], [place] [address] Monocyte pct 8.8 % [facility] ([place]URICIO) Comment: Interpretive Data Percent cell count reference ranges are not reported, since discordance with absolute values may lead to misinterpretation of CBC data. Current Interpretive Data was last revised on 2022. Testing performed by: [facility] [address], Medical Office [facility] [address], [place] [address] Eosinophil pct 2.5 % [facility] R [facility] (MAURICIO) Comment: Interpretive Data Percent cell count reference ranges are not reported, since discordance with absolute values may lead to misinterpretation of CBC data. Current Interpretive Data was last revised on 2022. Testing performed by: [facility] [address], Medical Office [facility] [address], [place] [address] Basophil pct 1.3 % [facility] (MAURICIO) Comment: Interpretive Data Percent cell count reference ranges are not reported, since discordance with absolute values may lead to misinterpretation of CBC data. Current Interpretive Data was last revised on 2022. Testing performed by: [facility] [address], Medical Office [facility] [address], [place] [address] Blood 12/31/2024 8:55 AM CDT 12/31/2024 9:02 AM CDT us Chalino Chapa MD LAB BLOOD ORDERABLES Aylin freedman Result SABRA ROGERS (MAURICIO) 1 [facility] [place] [address] * (ABNORMAL) CBC with auto differential (12/31/2024 8:55 AM CDT) WBC 1.60(L) 3.80 - 9.90 K/cumm [facility] ([place]UR[place]IO) Comment:Testing performed by : [facility] [address], Medical Office [address], [place] [address] Hgb 8.0(L) 11.9 - 15.5 g/dL [facility] (MAURICIO) Comment:Testing performed by : [facility] [address], Medical Office [facility] [address], [place] [address] Hct 24.3(L) 35.6 - 45.5 % [facility] ([place]URICIO) Comment:Testing performed by : [facility] [address], Medical Office [facility] [address], [place] [address] Plt 169 150 - 400 K/cumm [facility] (MAURICIO) Comment:Testing performed by : [facility] [address], Medical Office [facility] [address], [place] [address] MPV 10.6 9.1 - 12.3 fL [facility] (MAURICIO) Comment:Testing performed by : [facility] [address], Medical Office [facility] [address], [place] [address] RBC 2.14(L) 3.90 - 5.20 M/cumm [facility] (MAURICIO) Comment:Testing performed by : [facility] [address], Medical Office [facility] [address], [place] [address] MCV 113.6(H) 81.3 - 96.4 fL [facility] (MAURICIO) Comment:Testing performed by : [facility] [address], Medical Office [address], [place] [address] MCH 37.4(H) 27.1 - 33.3 pg [facility] (MAURICIO) Comment:Testing performed by : [facility] [address], Medical Office [address], [place] [address] MCHC 32.9 32.3 - 35.7 g/dL [facility] (MAURICIO) Comment:Testing performed by : [facility] [address], Medical Office [address], [place] [address] RDW CV 21.1(H) 11.1 - 14.9 % [facility]RA [facility] (MAURICIO) Comment:Testing performed by : [facility] [address], Medical Office [facility] [address], [place] [address] RDW SD 88.1(H) 35.7 - 48.1 fL [facility] (MAURICIO) Comment:Testing performed by : [facility] [address], Medical Office [facility] [address], [place] [address] Blood 12/31/2024 8:55 AM CDT 12/31/2024 9:02 AM CDT Narrative [facility]RA [facility] ([place]UR[place]IO) - 12/31/2024 9:05 AM CDT Cbc 12/10, 12/17, 12/24, AND 12/[address] Chapa Chalino Chapa MD LAB BLOOD ORDERABLES Aylin l Result [facility]RA [facility] ([place]UR[place]IO) 1 [facility] Department [place] [address] * (ABNORMAL) Comprehensive metabolic panel (12/31/2024 8:55 [...] LAB BLOOD ORDERABLES Aylin l Result [facility] ([place]UR[place]IO) [address] [place] [address] Department [place] [address] * Transfuse RBC (12/24/2024 2:50 PM CDT) Blood us Chalino Chapa MD BLOOD TRANSFUSION ORDERAB LES Final Result * Prepare RBC: 1 Units (12/24/2024 1:23 PM CDT) Units requested 1 Comment:Testing performed by : [place], [address] Units requested Ready [facility] ([place]) Comment:Testing performed by : [place], [address] Blood 12/24/2024 1:23 PM CDT 12/24/2024 1:23 PM CDT Narrative SABRA ROGERS ([place]) - 12/24/2024 1:28 PM CDT Are special requirements needed? (All products are leukoreduced and CMV- safe)->No Chalino Chapa MD BLOOD BANK PRODUCT ORDERA BLES Final Result SABRA ROGERS ([place]) 1 [facility] Department [place] [address] * Prepare RBC (12/24/2024 12:57 PM CDT) Unit Number [id number] Product code [id number] [facility] ([place]) Blood Expiration Date [id number] [facility] ([place]) Product Blood Type (for scanning) 5100 [facility] ([place]) Product Blood Type OPOS [facility] ([place]) Dispense Status DISPENSED [facility] ([place]) us Chalino Chapa MD BLOOD BANK PRODUCT ORDERA BLES Final Result Performing Organization Address [facility]/ZIP Co de Phone Number SABRA ROGERS ([place]) 1 [facility] Department [place] [address] * (ABNORMAL) Differential, auto (12/24/2024 11:35 AM CDT) Neutrophil abs 1.01(L) 1.50 - 6.50 K/cumm [facility] ([place]) Comment:Testing performed by : [facility] [address], Medical Office [place] [address], [place] [address] Imm gran abs 0.02 0.00 - 0.10 K/cumm [facility] ([place]) Comment:Testing performed by : [facility] [address], Medical Office [facility] [address], [place] [address] Lymphocyte abs 0.74(L) 0.80 - 3.30 K/cumm [facility] ([place]) Comment:Testing performed by : [facility] [address], Medical Office [facility] [address], [place] [address] Monocyte abs 0.14(L) 0.20 - 0.80 K/cumm [facility] ([place]) Comment:Testing performed by : [facility] [address], Medical Office [address], [place] [address] Eosinophil abs 0.02 0.00 - 0.50 K/cumm [facility] ([place]) Comment:Testing performed by : [facility] [address], Medical Office [address], [place] [address] Basophil abs 0.03 0.00 - 0.10 K/cumm [facility] ([place]) Comment:Testing performed by : [facility] [address], Medical Office [facility] [address], [place] [address] Neutrophil pct 51.6 % [facility] ([place]) Comment: Interpretive Data Percent cell count reference ranges are not reported, since discordance with absolute values may lead to misinterpretation of CBC data. Current Interpretive Data was last revised on 2022. Testing performed by: [facility] [address], Medical Office [facility] [address], [place] [address] Imm gran pct 1.0 % [facility] ([place]) Comment: Interpretive Data Percent cell count reference ranges are not reported, since discordance with absolute values may lead to misinterpretation of CBC data. Current Interpretive Data was last revised on 2022. Testing performed by: [facility] [address], Medical Office [facility] [address], [place] [address] Lymphocyte pct 37.8 % [facility] ([place]) Comment: Interpretive Data Percent cell count reference ranges are not reported, since discordance with absolute values may lead to misinterpretation of CBC data. Current Interpretive Data was last revised on 2022. Testing performed by: [facility] [address], Medical Office [facility] [address], [place] [address] Monocyte pct 7.1 % [facility] ([place]) Comment: Interpretive Data Percent cell count reference ranges are not reported, since discordance with absolute values may lead to misinterpretation of CBC data. Current Interpretive Data was last revised on 2022. Testing performed by: [facility] [address], Medical Office [address], [place] [address] Eosinophil pct 1.0 % [facility] ([place]) Comment: Interpretive Data Percent cell count reference ranges are not reported, since discordance with absolute values may lead to misinterpretation of CBC data. Current Interpretive Data was last revised on 2022. Testing performed by: [facility] [address], Medical Office [facility] [address], [place] [address] Basophil pct 1.5 % [facility] ([place]) Comment: Interpretive Data Percent cell count reference ranges are not reported, since discordance with absolute values may lead to misinterpretation of CBC data. Current Interpretive Data was last revised on 2022. Testing performed by: [facility] [address], Medical Office [facility] [address], [place] [address] Blood 12/24/2024 11:3 5 AM CDT 12/24/2024 11:36 AM CDT Chalino Chapa MD LAB BLOOD ORDERABLES Aylin freedman Result SABRA ROGERS ([place]) 1 [facility] Department [place] [address] * (ABNORMAL) CBC with auto differential (12/24/2024 11:35 AM CDT) WBC 1.96(L) 3.80 - 9.90 K/cumm [facility] ([place]) Comment:Testing performed by : [facility] [address], Medical Office [facility] [address], [place] [address] Hgb 7.5(L) 11.9 - 15.5 g/dL [facility] ([place]) Comment:Testing performed by : [facility] [address], Medical Office [facility] [address], [place] [address] Hct 22.6(L) 35.6 - 45.5 % [facility] ([place]) Comment:Testing performed by : [facility] [address], Medical Office [facility] [address], [place] [address] Plt 168 150 - 400 K/cumm [facility] ([place]) Comment:Testing performed by : [facility] [address], Medical Office [facility] [address], [place] [address] MPV 11.2 9.1 - 12.3 fL [facility] ([place]) Comment:Testing performed by : [facility] [address], Medical Office [address], [place] [address] RBC 1.96(L) 3.90 - 5.20 M/cumm [facility] ([place]) Comment:Testing performed by : [facility] [address], Medical Office [facility] [address], [place] [address] MCV 115.3(H) 81.3 - 96.4 fL [facility] ([place]) Comment:Testing performed by : [facility] [address], Medical Office [facility] [address], [place] [address] MCH 38.3(H) 27.1 - 33.3 pg [facility] ([place]) Comment:Testing performed by : [facility] [address], Medical Office [facility] [address], [place] [address] MCHC 33.2 32.3 - 35.7 g/dL [facility] ([place]) Comment:Testing performed by : [facility] [address], Medical Office [facility] [address], [place] [address] RDW CV 22.8(H) 11.1 - 14.9 % [facility] ([place]) Comment:Testing performed by : [facility] [address], Medical Office [facility] [address], [place] [address] RDW SD 94.4(H) 35.7 - 48.1 fL [facility] ([place]) Comment:Testing performed by : [facility] [address], Medical Office [facility] [address], [place] [address] Blood 12/24/2024 11:3 5 AM CDT 12/24/2024 11:36 AM CDT Narrative [facility] ([place]) - 12/24/2024 11:38 AM CDT Cbc 12/10, 12/17, 12/24, AND 12/[address] Chapa us Chalino Chapa MD LAB BLOOD ORDERABLES Aylin l Result [facility] ([place]) [address] [place] [address] [place] [address] * ABO/Rh (12/24/2024 11:35 AM CDT) ABO/Rh O Positive Comment:Testing performed by : [facility], [place], [address] Blood 12/24/2024 11:3 5 AM CDT 12/24/2024 12:16 PM CDT Narrative [facility] ([place]) - 12/24/2024 12:43 PM CDT 11/19, 11/26, 12/03 Has the patient had Daratumumab or Isatuximab in the past 6 months?->Unknown Witnessed by Emile Jackson us Chalino Chapa MD LAB BLOOD BANK TEST ORDER LAITH Final Result Performing Organization Address City/[facility]/ZIP Co de Phone Number [facility]RA [facility] ([place]) [address] [place] [address] Department [place] [address] * Crossmatch (12/24/2024 11:35 AM CDT) Crossmatch Compatible SABRA Ricardo ([place] [facility]) Unit number for crossmatch [id number] [facility] ([place]) Blood 12/24/2024 11:3 5 AM CDT 12/24/2024 12:16 PM CDT us Chalino Chapa MD LAB BLOOD BANK TEST ORDER LAITH Final Result [facility]RA [facility] ([place]) [address] [place] [address] [place] [address] * Antibody screen (12/24/2024 11:35 AM CDT) Rivera, indirect, Gel Interpretation Negative ABSC Comment:Testing performed by : [facility], [place], [address] Blood 12/24/2024 11:3 5 AM CDT 12/24/2024 12:16 PM CDT Narrative SABRA ROGERS ([place]) - 12/24/2024 12:49 PM CDT 11/19, 11/26, 12/03 Has the patient had Daratumumab or Isatuximab in the past 6 months?->Unknown us Chalino Chapa MD LAB BLOOD BANK TEST ORDER LAITH Final Result Performing Organization Address City/[facility]/ZIP Co de Phone Number SABRA ROGERS ([place]) [address] [place] [address] Department [place] [address] * Transfuse RBC (12/18/2024 2:40 PM CDT) Blood us Michael Terry MD BLOOD TRANSFUSION ORDERABLES Final Result * Prepare RBC (12/18/2024 12:15 PM CDT) Unit Number [id number] Product code [id number] SABRA ROGERS ([place]) Blood Expiration Date [id number] [facility] ([place]) Product Blood Type (for scanning) 5100 [facility] ([place]) Product Blood Type OPOS [facility] ([place]) Dispense Status DISPENSED SABRA SUE ([place]) us Chalino Chapa MD BLOOD BANK PRODUCT ORDERA BLES Final Result Performing Organization Address City/[facility]/ZIP Co de Phone Number SABRA ROGERS ([place]) [address] [place] [address] Department [place] [address] * Prepare RBC: 1 Units (12/18/2024 10:45 AM CDT) Units requested 1 Comment:Testing performed by : [place], [address] Units requested Ready EMMY ROGERS ([place]) Comment:Testing performed by : [place], [address] Blood 12/18/2024 10:4 5 AM CDT 12/18/2024 11:50 AM CDT Narrative [facility] ([place]) - 12/18/2024 11:51 AM CDT Are special requirements needed? (All products are leukoreduced and CMV- safe)->No Michael Terry MD BLOOD BANK PRODUCT ORDERABLES Final Result [facility] ([place]) 1 [facility] Department [place] [address] * (ABNORMAL) Differential, auto (12/18/2024 10:20 AM CDT) Neutrophil abs 1.27(L) 1.50 - 6.50 K/cumm [facility] ([place]) Comment:Testing performed by : [facility] [address], Medical Office [facility] [address], [place] [address] Imm gran abs 0.01 0.00 - 0.10 K/cumm [facility] ([place]) Comment:Testing performed by : [facility] [address], Medical Office [facility] [address], [place] [address] Lymphocyte abs 0.46(L) 0.80 - 3.30 K/cumm [facility] ([place]) Comment:Testing performed by : [facility] [address], Medical Office [facility] [address], [place] [address] Monocyte abs 0.15(L) 0.20 - 0.80 K/cumm [facility] ([place]) Comment:Testing performed by : [facility] [address], Medical Office [facility] [address], [place] [address] Eosinophil abs 0.02 0.00 - 0.50 K/cumm [facility] ([place]) Comment:Testing performed by : [facility] [address], Medical Office [facility] [address], [place] [address] Basophil abs 0.02 0.00 - 0.10 K/cumm [facility] ([place]) Comment:Testing performed by : [facility] [address], Medical Office [facility] [address], [place] [address] Neutrophil pct 65.9 % [facility] ([place]) Comment: Interpretive Data Percent cell count reference ranges are not reported, since discordance with absolute values may lead to misinterpretation of CBC data. Current Interpretive Data was last revised on 2022. Testing performed by: [facility] [address], Medical Office [address], [place] [address] Imm gran pct 0.5 % [facility] ([place]) Comment: Interpretive Data Percent cell count reference ranges are not reported, since discordance with absolute values may lead to misinterpretation of CBC data. Current Interpretive Data was last revised on 2022. Testing performed by: [facility] [address], Medical Office [address], [place] [address] Lymphocyte pct 23.8 % [facility] ([place]) Comment: Interpretive Data Percent cell count reference ranges are not reported, since discordance with absolute values may lead to misinterpretation of CBC data. Current Interpretive Data was last revised on 2022. Testing performed by: [facility] [address], Medical Office [address], [place] [address] Monocyte pct 7.8 % [facility] ([place]) Comment: Interpretive Data Percent cell count reference ranges are not reported, since discordance with absolute values may lead to misinterpretation of CBC data. Current Interpretive Data was last revised on 2022. Testing performed by: [facility] [address], Medical Office [facility] [address], [place] [address] Eosinophil pct 1.0 % [facility] ([place]) Comment: Interpretive Data Percent cell count reference ranges are not reported, since discordance with absolute values may lead to misinterpretation of CBC data. Current Interpretive Data was last revised on 2022. Testing performed by: [facility] [address], Medical Office [address], [place] [address] Basophil pct 1.0 % [facility] ([place]) Comment: Interpretive Data Percent cell count reference ranges are not reported, since discordance with absolute values may lead to misinterpretation of CBC data. Current Interpretive Data was last revised on 2022. Testing performed by: [facility] [address], Medical Office [address], [place] [address] Blood 12/18/2024 10:2 0 AM CDT 12/18/2024 10:30 AM CDT Chalino Chapa MD LAB BLOOD ORDERABLES Aylin freedman Result [facility] ([place]) 1 [facility] Department [place] [address] * (ABNORMAL) CBC with auto differential (12/18/2024 10:20 AM CDT) WBC 1.93(L) 3.80 - 9.90 K/cumm [facility] ([place]) Comment:Testing performed by : [facility] [address], Medical Office [facility] B [facility] [address], [place] [address] Hgb 6.7(L) 11.9 - 15.5 g/dL [facility] ([place]) Comment:Testing performed by : [facility] [address], Medical Office [facility] [address], [place] [address] Hct 20.7(L) 35.6 - 45.5 % [facility] ([place]) Comment:Testing performed by : [facility] [address], Medical Office [facility] [address], [place] [address] Plt 152 150 - 400 K/cumm [facility] ([place]) Comment:Testing performed by : [facility] [address], Medical Office [facility] [address], [place] [address] MPV 11.1 9.1 - 12.3 fL [facility] ([place]) Comment:Testing performed by : [facility] [address], Medical Office [facility] B [facility] [address], [place] [address] RBC 1.70(L) 3.90 - 5.20 M/cumm [facility] ([place]) Comment:Testing performed by : [facility] [address], Medical Office [facility] B [facility] [address], [place] [address] MCV 121.8(H) 81.3 - 96.4 fL [facility] ([place]) Comment:Testing performed by : [facility] [address] Medical Office [facility] B [facility] [address], [place] [address] MCH 39.4(H) 27.1 - 33.3 pg SABRA ROGERS ([place]) Comment:Testing performed by : [facility] [address], Medical Office [facility] B [facility] [address], [place] [address] MCHC 32.4 32.3 - 35.7 g/dL SABRA ROGERS ([place]) Comment:Testing performed by : [facility] [address], Medical Office [facility] [address], [place] [address] RDW CV 20.7(H) 11.1 - 14.9 % SABRA ROGERS ([place]) Comment:Testing performed by : [facility] [address], Medical Office [facility] [address], [place] [address] RDW SD 91.4(H) 35.7 - 48.1 fL SABRA ROGERS ([place]) Comment:Testing performed by : [facility] [address], Medical Office [facility] [address], [place] [address] Blood 12/18/2024 10:2 0 AM CDT 12/18/2024 10:30 AM CDT Narrative SABRA ROGERS ([place]) - 12/18/2024 10:33 AM CDT Cbc 12/10, 12/17, 12/24, AND 12/[address] Chapa Chalino Chapa MD LAB BLOOD ORDERABLES Aylin l Result S[facility]RA ROGERS ([place]) 1 [facility] Department [place] [address] * ABO/Rh (12/18/2024 10:20 AM CDT) ABO/Rh O Positive Comment:Testing performed by : [facility], [facility], [place], [address] Blood 12/18/2024 10:2 0 AM CDT 12/18/2024 11:04 AM CDT Narrative SABRA ROGERS ([place]) - 12/18/2024 11:45 AM CDT Has the patient had Daratumumab or Isatuximab in the past 6 months?->Unknown Milla Armenta NP LAB BLOOD BANK TEST ORDERA BLES Final Result Performing Organization Address [facility] Co de Phone Number SABRA [facility] ([place]) [address] [place] [address] * Crossmatch (12/18/2024 10:20 AM CDT) Crossmatch Compatible SABRA Silva ([place]) Unit number for crossmatch [id number] [facility] ([place]) Blood 12/18/2024 10:2 0 AM CDT 12/18/2024 11:04 AM CDT us Chalino Chapa MD LAB BLOOD BANK TEST ORDER LAITH Final Result Performing Organization Address [facility] de Phone Number [facility] ([place] [facility]) [address] [place] [address] * Antibody screen (12/18/2024 10:20 AM CDT) Rivera, indirect, Gel Interpretation Negative ABSC Comment:Testing performed by : [facility], [facility], [place], [address] Blood 12/18/2024 10:2 0 AM CDT 12/18/2024 11:04 AM CDT Narrative [facility] ([place]) - 12/18/2024 11:45 AM CDT Has the patient had Daratumumab or Isatuximab in the past 6 months?->Unknown us Milla Armenta NP LAB BLOOD BANK TEST ORDERA BLES Final Result Performing Organization Address [facility] Co de Phone Number [facility] ([place] [facility]) [address] [place] [address] * eGFR (12/03/2024 8:30 AM CDT) eGFR [...] was last reviewed 2021. Testing performed by: [place], [address] Blood 12/03/2024 8:30 AM CDT 12/03/2024 8:42 AM CDT us Chalino Chapa MD LAB BLOOD ORDERABLES Aylin tano Result [facility]RA ROGERS ([place]) 1 [facility] Department [place] [address] * (ABNORMAL) Differential, auto (12/03/2024 8:30 AM CDT) Neutrophil abs 0.88(L) 1.50 - 6.50 K/cumm Comment:Testing performed by : [place], [address] Imm gran abs 0.02 0.00 - 0.10 K/cumm SABRA ROGERS ([place]) Comment:Testing performed by : [place], [address] Lymphocyte abs 0.52(L) 0.80 - 3.30 K/cumm SABRA ROGERS ([place]) Comment:Testing performed by : [facility], [place], [address] Monocyte abs 0.12(L) 0.20 - 0.80 K/cumm [facility] ([place]) Comment:Testing performed by : [facility], [facility], [place], [address] Eosinophil abs 0.03 0.00 - 0.50 K/cumm [facility] ([place]) Comment:Testing performed by : [facility], [facility], [place], [address] Basophil abs 0.01 0.00 - 0.10 K/cumm [facility] ([place]) Comment:Testing performed by : [place], [address] Neutrophil pct 55.7 % [facility] ([place]) Comment: Interpretive Data Percent cell count reference ranges are not reported, since discordance with absolute values may lead to misinterpretation of CBC data. Current Interpretive Data was last revised on 2017. Testing performed by: [place], [address] Imm gran pct 1.3 % [facility] ([place]) Comment: Interpretive Data Percent cell count reference ranges are not reported, since discordance with absolute values may lead to misinterpretation of CBC data. Current Interpretive Data was last revised on 2017. Testing performed by: [place], [address] Lymphocyte pct 32.9 % [facility] ([place]) Comment: Interpretive Data Percent cell count reference ranges are not reported, since discordance with absolute values may lead to misinterpretation of CBC data. Current Interpretive Data was last revised on 2017. Testing performed by: [place], [address] Monocyte pct 7.6 % [facility] ([place]) Comment: Interpretive Data Percent cell count reference ranges are not reported, since discordance with absolute values may lead to misinterpretation of CBC data. Current Interpretive Data was last revised on 2017. Testing performed by: [place], [address] Eosinophil pct 1.9 % [facility] ([place]) Comment: Interpretive Data Percent cell count reference ranges are not reported, since discordance with absolute values may lead to misinterpretation of CBC data. Current Interpretive Data was last revised on 2017. Testing performed by: [facility], [place], [address] Basophil pct 0.6 % [facility] ([place]) Comment: Interpretive Data Percent cell count reference ranges are not reported, since discordance with absolute values may lead to misinterpretation of CBC data. Current Interpretive Data was last revised on 2017. Testing performed by: [facility], [place], [address] Blood 12/03/2024 8:30 AM CDT 12/03/2024 8:58 AM CDT us Chalino Chapa MD LAB BLOOD ORDERABLES Aylin freedman Result [facility] ([facility]) [address] [place] [address] Department [place] [address] * (ABNORMAL) CBC with auto differential (12/03/2024 8:30 AM CDT) WBC 1.58(L) 3.80 - 9.90 K/cumm Comment:Testing performed by : [place], [address] Hgb 8.1(L) 11.9 - 15.5 g/dL [facility] ([facility]) Comment:Testing performed by : [place], [address] Hct 24.2(L) 35.6 - 45.5 % [facility] ([facility]) Comment:Testing performed by : [place], [address] Plt 156 150 - 400 K/cumm [facility] ([facility]) Comment:Testing performed by : [place], [address] MPV 11.6 9.1 - 12.3 fL [facility] ([facility]) Comment:Testing performed by : [place], [address] RBC 2.11(L) 3.90 - 5.20 M/cumm [facility] ([facility]) Comment:Testing performed by : [place], [address] MCV 114.7(H) 81.3 - 96.4 fL [facility] ([facility]) Comment:Testing performed by : [facility], [facility], [place], [address] MCH 38.4(H) 27.1 - 33.3 pg [facility] ([facility]) Comment:Testing performed by : [facility], [facility], [place], MCHC 33.5 32.3 - 35.7 g/dL [facility] ([place]) Comment:Testing performed by : [facility], [place], [address] RDW CV 23.4(H) 11.1 - 14.9 % [facility] ([facility]) Comment:Testing performed by : [facility], [place], [address] RDW SD 94.7(H) 35.7 - 48.1 fL [facility] ([facility]) Comment:Testing performed by : [facility], [place], [address] NRBC abs 0.00 0.00 - 0.01 K/cumm [facility] ([facility]) Comment:Testing performed by : [facility], [place], [address] Morphologic Screen Results confirmed by manual morphology review. [facility] ([facility]) Comment:Testing performed by : [facility], [place], [address] Blood 12/03/2024 8:30 AM CDT 12/03/2024 8:58 AM CDT us Chalino Chapa MD LAB BLOOD ORDERABLES Aylin freedman Result [facility] ([facility]) 1 [facility] Department [place] [address] * (ABNORMAL) Comprehensive metabolic panel (12/03/2024 8:30 AM CDT) Sodium 140 135 - 145 mmol/L [facility] ([place]) Potassium, pl 4.2 3.3 - 4.9 mmol/L [facility] ([place]) Chloride 99 97 - 110 mmol/L [facility] ([place]) CO2 31 22 - 32 mmol/L [facility] ([place]) Anion gap 10 2 - [...] MD LAB BLOOD ORDERABLES Aylin freedman Result [facility] ([facility]) 1 [facility] Department [place] [address] * (ABNORMAL) Blood smear review (11/29/2024 8:25 AM CDT) RBC morphology Consistent with RBC Indicies Comment:Testing performed by : [facility], One [facility], [place], [address] Anisocytosis Moderate(A) [facility] ([facility]) Comment:Testing performed by : [facility], [facility], [place], [address] Microcytes 3-7/HPF(A) [facility] ([facility]) Comment:Testing performed by : [facility], [facility], [place], [address] Macrocytes 3-7/HPF(A) [facility] ([facility]) Comment:Testing performed by : [facility], [facility], [place], [address] Elliptocytes 3-7/HPF(A) [facility] ([facility]) Comment:Testing performed by : [facility], [facility], [place], [address] Teardrop cells 3-7/HPF(A) [facility]OM [facility] ([facility]) Comment:Testing performed by : [facility], [place], [address] Platelet estimate Adequate [facility] ([facility]) Comment:Testing performed by : [facility], [facility], [place], [address] Blood 11/29/2024 8:25 AM CDT 11/29/2024 8:43 AM CDT us Chalino Chapa MD LAB BLOOD ORDERABLES Aylin freedman Result [facility] ([facility]) [address] [place] [address] Department [place] [address] * (ABNORMAL) Differential, auto (11/29/2024 8:25 AM CDT) Neutrophil abs 1.31(L) 1.50 - 6.50 K/cumm Comment:Testing performed by : [facility], [facility], [place], [address] Imm gran abs 0.01 0.00 - 0.10 K/cumm [facility] ([facility]) Comment:Testing performed by : [facility], [place], [address] Lymphocyte abs 0.84 0.80 - 3.30 K/cumm [facility] ([facility]) Comment:Testing performed by : [facility], [place], [address] Monocyte abs 0.18(L) 0.20 - 0.80 K/cumm [facility] ([facility]) Comment:Testing performed by : [facility], [facility], [place], [address] Eosinophil abs 0.03 0.00 - 0.50 K/cumm [facility] ([facility]) Comment:Testing performed by : [facility], [facility], [place], [address] Basophil abs 0.01 0.00 - 0.10 K/cumm [facility] ([facility]) Comment:Testing performed by : [place], [address] Neutrophil pct 55.0 % [facility] ([facility]) Comment: Interpretive Data Percent cell count reference ranges are not reported, since discordance with absolute values may lead to misinterpretation of CBC data. Current Interpretive Data was last revised on 2017. Testing performed by: [place], [address] Imm gran pct 0.4 % [facility] ([facility]) Comment: Interpretive Data Percent cell count reference ranges are not reported, since discordance with absolute values may lead to misinterpretation of CBC data. Current Interpretive Data was last revised on 2017. Testing performed by: [facility], [place], [address] Lymphocyte pct 35.3 % [facility] ([facility]) Comment: Interpretive Data Percent cell count reference ranges are not reported, since discordance with absolute values may lead to misinterpretation of CBC data. Current Interpretive Data was last revised on 2017. Testing performed by: [place], [address] Monocyte pct 7.6 % [facility] ([facility]) Comment: Interpretive Data Percent cell count reference ranges are not reported, since discordance with absolute values may lead to misinterpretation of CBC data. Current Interpretive Data was last revised on 2017. Testing performed by: [place], [address] Eosinophil pct 1.3 % [facility] ([facility]) Comment: Interpretive Data Percent cell count reference ranges are not reported, since discordance with absolute values may lead to misinterpretation of CBC data. Current Interpretive Data was last revised on 2017. Testing performed by: [place], [address] Basophil pct 0.4 % [facility] ([facility]) Comment: Interpretive Data Percent cell count reference ranges are not reported, since discordance with absolute values may lead to misinterpretation of CBC data. Current Interpretive Data was last revised on 2017. Testing performed by: [facility], [place], [address] Blood 11/29/2024 8:25 AM CDT 11/29/2024 8:43 AM CDT us Chalino Chapa MD LAB BLOOD ORDERABLES Aylin freedman Result [facility] ([facility]) 1 [facility] Department [place] [address] * (ABNORMAL) CBC with auto differential (11/29/2024 8:25 AM CDT) WBC 2.38(L) 3.80 - 9.90 K/cumm Comment:Testing performed by : [place], [address] Hgb 7.9(L) 11.9 - 15.5 g/dL [facility] ([facility]) Comment:Testing performed by : [place], [address] Hct 24.1(L) 35.6 - 45.5 % [facility] ([facility]) Comment:Testing performed by : [place], [address] Plt 158 150 - 400 K/cumm [facility] ([facility]) Comment:Testing performed by : [place], [address] MPV 11.1 9.1 - 12.3 fL [facility] ([place]) Comment:Testing performed by : [place], [address] RBC 2.11(L) 3.90 - 5.20 M/cumm [facility] ([place]) Comment:Testing performed by : [place], [address] MCV 114.2(H) 81.3 - 96.4 fL [facility] ([place]) Comment:Testing performed by : [facility], [facility], [place], [address] MCH 37.4(H) 27.1 - 33.3 pg [facility] ([facility]) Comment:Testing performed by : [facility], [facility], [place], [address] MCHC 32.8 32.3 - 35.7 g/dL [facility] ([facility]) Comment:Testing performed by : [facility], [place], [address] RDW CV Not Measured 11.1 - 14.9 % [facility] ([facility]) Comment:Testing performed by : [facility], [facility], [place], [address] RDW SD Not Measured 35.7 - 48.1 fL [facility] ([facility]) Comment:Testing performed by : [facility], [facility], [place], [address] NRBC abs 0.00 0.00 - 0.01 K/cumm [facility] ([facility]) Comment:Testing performed by : [facility], [place], [address] Blood 11/29/2024 8:25 AM CDT 11/29/2024 8:43 AM CDT us Chalino Chapa MD LAB BLOOD ORDERABLES Aylin l Result Performing Organization Address City/State/[facility] Co de Phone Number AMYPAOLA [facility] ([facility]) 1 [facility] Department [place] [address] * ABO/Rh (11/29/2024 8:25 AM CDT) ABO/Rh O Positive Comment:Testing performed by : [facility], [facility], [place], [address] Blood 11/29/2024 8:25 AM CDT 11/29/2024 8:40 AM CDT Narrative [facility] ([facility]) - 11/29/2024 9:17 AM CDT Has the patient had Daratumumab or Isatuximab in the past 6 months?->No us Chalino Chapa MD LAB BLOOD BANK TEST ORDER LAITH Final Result [facility] ([facility]) 1 [facility] Department [place] [address] * Antibody screen (11/29/2024 8:25 AM CDT) Rivera, indirect, Gel Interpretation Negative ABSC Comment:Testing performed by : [place], [address] Blood 11/29/2024 8:25 AM CDT 11/29/2024 8:40 AM CDT Narrative [facility] ([facility]) - 11/29/2024 9:17 AM CDT Has the patient had Daratumumab or Isatuximab in the past 6 months?->No Chalino Chapa MD LAB BLOOD BANK TEST ORDER LAITH Final Result Performing Organization Address City/[facility] Co de Phone Number [facility] ([facility]) [address] [place] [address] Department [place] [address] * (ABNORMAL) CBC with auto differential (11/26/2024 9:50 AM CDT) Pathologist [facility] [place] WBC 1.44(L) 3.80 - 9.90 K/cumm Comment:Testing performed by : [place], [address] Hgb 7.7(L) 11.9 - 15.5 g/dL [facility] ([place]) Comment:Testing performed by : [place], [address] Hct 24.4(L) 35.6 - 45.5 % [facility] ([place]) Comment:Testing performed by : [place], [address] Plt 146(L) 150 - 400 K/cumm [facility] ([place]) Comment:Testing performed by : [place], [address] MPV 11.0 9.1 - 12.3 fL [facility] ([place]) Comment:Testing performed by : [place], [address] RBC 2.13(L) 3.90 - 5.20 M/cumm [facility] ([facility]) Comment:Testing performed by : [facility], [place], [address] MCV 114.6(H) 81.3 - 96.4 fL [facility] ([facility]) Comment:Testing performed by : [facility], [place], [place], MCH 36.2(H) 27.1 - 33.3 pg [facility] ([facility]) Comment:Testing performed by : [facility], [place], MCHC 31.6(L) 32.3 - 35.7 g/dL [facility] ([facility]) Comment:Testing performed by : [facility], [place], [place], RDW CV 24.3(H) 11.1 - 14.9 % [facility] ([facility]) Comment:Testing performed by : [place], RDW SD 97.2(H) 35.7 - 48.1 fL [facility] ([facility]) Comment:Testing performed by : [facility], [place], [address] NRBC abs 0.00 0.00 - 0.01 K/cumm [facility] ([facility]) Comment:Testing performed by : [facility], [place], [address] Blood 11/26/2024 9:50 AM CDT 11/26/2024 10:13 AM CDT us Chalino Chapa MD LAB BLOOD ORDERABLES Aylin l Result [facility] ([facility]) 1 [facility] Department [place] [address] * (ABNORMAL) Manual Differential (11/26/2024 9:50 AM CDT) Differential Manual Comment:Testing performed by : [facility], [place], [address] Cells Counted 100 [facility] ([facility]) Comment:Testing performed by : [facility], [place], [address] Neutrophil abs 0.81(L) 1.50 - 6.50 K/cumm [facility] ([facility]) Comment:Testing performed by : [facility], [facility], [place], [address] Imm gran abs 0.03 0.00 - 0.10 K/cumm [facility] ([facility]) Comment:Testing performed by : [facility], [facility], [place], [address] Lymphocyte abs 0.46(L) 0.80 - 3.30 K/cumm [facility] ([facility]) Comment:Testing performed by : [facility], [facility], [place], [address] Monocyte abs 0.04(L) 0.20 - 0.80 K/cumm [facility] ([facility]) Comment:Testing performed by : [facility], [facility], [place], [address] Eosinophil abs 0.10 0.00 - 0.50 K/cumm [facility] ([facility]) Comment:Testing performed by : [place], [address] Neutrophil pct 54.0 % [facility] ([facility]) Comment: Interpretive Data Percent cell count reference ranges are not reported, since discordance with absolute values may lead to misinterpretation of CBC data. Current Interpretive Data was last revised on 2017. Testing performed by: [facility], [place], [address] Lymphocyte pct 32.0 % [facility] ([facility]) Comment: Interpretive Data Percent cell count reference ranges are not reported, since discordance with absolute values may lead to misinterpretation of CBC data. Current Interpretive Data was last revised on 2017. Testing performed by: [facility], [place], [address] Monocyte pct 3.0 % [facility] ([facility]) Comment: Interpretive Data Percent cell count reference ranges are not reported, since discordance with absolute values may lead to misinterpretation of CBC data. Current Interpretive Data was last revised on 2017. Testing performed by: [facility], [place], [address] Eosinophil pct 7.0 % [facility] ([facility]) Comment: Interpretive Data Percent cell count reference ranges are not reported, since discordance with absolute values may lead to misinterpretation of CBC data. Current Interpretive Data was last revised on 2017. Testing performed by: [facility], [facility], [place], [address] Band Neutrophil pct 2.0 0.0 - 5.0 % [facility] ([place]) Comment:Testing performed by : [facility], [facility], [place], [address] Myelocyte pct 2.0(H) 0.0 - 0.0 % [facility] ([place]) Comment:Testing performed by : [facility], [facility], [place], [address] RBC morphology Consistent with RBC Indicies [facility] ([place]) Comment:Testing performed by : [facility], [facility], [place], [address] Platelet estimate Automated Count Confirmed [facility] ([place]) Comment:Testing performed by : [facility], [facility], [place], [address] Blood 11/26/2024 9:50 AM CDT 11/26/2024 10:13 AM CDT us Chalino Chapa MD LAB BLOOD ORDERABLES Aylin l Result [facility] ([facility]) 1 [facility] Department [place] [address] * (ABNORMAL) Differential, auto (11/19/2024 10:10 AM CDT) Neutrophil abs 1.05(L) 1.50 - 6.50 K/cumm [facility] ([place]) Comment:Testing performed by : [facility] [address], Medical Office [facility] [address], [place] [address] Imm gran abs 0.00 0.00 - 0.10 K/cumm [facility] ([place]) Comment:Testing performed by : [facility] [address], Medical Office [facility] [address], [place] [address] Lymphocyte abs 0.50(L) 0.80 - 3.30 K/cumm [facility] ([place]) Comment:Testing performed by : [facility] [address], Medical Office [facility] [address], [place] [address] Monocyte abs 0.14(L) 0.20 - 0.80 K/cumm [facility] ([place]) Comment:Testing performed by : [facility] [address], Medical Office [facility] [address], [place] [address] Eosinophil abs 0.02 0.00 - 0.50 K/cumm [facility] ([place]) Comment:Testing performed by : [facility] [address], Medical Office [facility] [address], [place] [address] Basophil abs 0.02 0.00 - 0.10 K/cumm [facility] ([place]) Comment:Testing performed by : [facility] [address], Medical Office [facility] [address], [place] [address] Neutrophil pct 60.6 % [facility] ([place]) Comment: Interpretive Data Percent cell count reference ranges are not reported, since discordance with absolute values may lead to misinterpretation of CBC data. Current Interpretive Data was last revised on 2022. Testing performed by: [facility] [address], Medical Office [facility] [address], [place] [address] Imm gran pct 0.0 % [facility] ([place]) Comment: Interpretive Data Percent cell count reference ranges are not reported, since discordance with absolute values may lead to misinterpretation of CBC data. Current Interpretive Data was last revised on 2022. Testing performed by: [facility] [address], Medical Office [facility] [address], [place] [address] Lymphocyte pct 28.9 % [facility] ([place]) Comment: Interpretive Data Percent cell count reference ranges are not reported, since discordance with absolute values may lead to misinterpretation of CBC data. Current Interpretive Data was last revised on 2022. Testing performed by: [facility] [address], Medical Office [facility] [address], [place] [address] Monocyte pct 8.1 % [facility] ([place]) Comment: Interpretive Data Percent cell count reference ranges are not reported, since discordance with absolute values may lead to misinterpretation of CBC data. Current Interpretive Data was last revised on 2022. Testing performed by: [facility] [address], Medical Office [facility] [address], [place] [address] Eosinophil pct 1.2 % EMELINA ROGERS ([place]) Comment: Interpretive Data Percent cell count reference ranges are not reported, since discordance with absolute values may lead to misinterpretation of CBC data. Current Interpretive Data was last revised on 2022. Testing performed by: [facility] [address], Medical Office [facility] [address], [place] [address] Basophil pct 1.2 % [facility] ([place]) Comment: Interpretive Data Percent cell count reference ranges are not reported, since discordance with absolute values may lead to misinterpretation of CBC data. Current Interpretive Data was last revised on 2022. Testing performed by: [facility] [address], Medical Office [facility] [address], [place] [address] Blood 11/19/2024 10:1 0 AM CDT 11/19/2024 10:10 AM CDT Chalino Chapa MD LAB BLOOD ORDERABLES Aylin l Result [facility] ([place]) 1 [facility] Department [place] [address] * (ABNORMAL) CBC with auto differential (11/19/2024 10:10 AM CDT) WBC 1.73(L) 3.80 - 9.90 K/cumm [facility] ([place]) Comment:Testing performed by : [facility] [address], Medical Office [facility] [address], [place] [address] Hgb 8.4(L) 11.9 - 15.5 g/dL [facility] ([place]) Comment:Testing performed by : [facility] [address], Medical Office [facility] [address], [place] [address] Hct 25.6(L) 35.6 - 45.5 % [facility] ([place]) Comment:Testing performed by : [facility] [address], Medical Office [facility] [address], [place] [address] Plt 119(L) 150 - 400 K/cumm [facility] ([place]) Comment:Testing performed by : [facility] [address], Medical Office [address], [place] [address] MPV 10.6 9.1 - 12.3 fL [facility] ([place]) Comment:Testing performed by : [facility] [address], Medical Office [address], [place] [address] RBC 2.29(L) 3.90 - 5.20 M/cumm [facility] ([place]) Comment:Testing performed by : [facility] [address], Medical Office [address], [place] [address] MCV 111.8(H) 81.3 - 96.4 fL [facility] ([place]) Comment:Testing performed by : [facility] [address], Medical Office [address], [place] [address] MCH 36.7(H) 27.1 - 33.3 pg [facility] ([place]) Comment:Testing performed by : [facility] [address], Medical Office [address], [place] [address] MCHC 32.8 32.3 - 35.7 g/dL [facility] ([place]) Comment:Testing performed by : [facility] [address], Medical Office [facility] [address], [place] [address] RDW CV 24.9(H) 11.1 - 14.9 % [facility] ([place]) Comment:Testing performed by : [facility] [address], Medical Office [address], [place] [address] RDW SD 96.8(H) 35.7 - 48.1 fL [facility] ([place]) Comment:Testing performed by : [facility] [address], Medical Office [facility] [address], [place] [address] Blood 11/19/2024 10:1 0 AM CDT 11/19/2024 10:10 AM CDT Narrative [facility] ([place]) - 11/19/2024 10:13 AM CDT 11/19, 11/26, 12/03 us Chalino Chapa MD LAB BLOOD ORDERABLES Aylin l Result Performing Organization Address [facility] Co de Phone Number SABRA ROGERS ([place]) 1 [facility] [place] [place] [address] * Transfuse RBC (11/14/2024 1:18 PM CDT) Blood Chalino Chapa MD BLOOD TRANSFUSION ORDERAB LES Final Result * Prepare RBC: 1 Units (11/14/2024 11:24 AM CDT) Units requested 1 Comment:Testing performed by : [facility], [place], [address] Units requested Ready EMYM ROGERS ([place] [facility]) Comment:Testing performed by : [facility], [place], [address] Blood 11/14/2024 11:2 4 AM CDT 11/14/2024 11:24 AM CDT Narrative SABRA ROGERS ([place]) - 11/14/2024 11:24 AM CDT 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 (All products are leukoreduced and CMV- safe)->No Chalino Chapa MD BLOOD BANK PRODUCT ORDERA BLES Final Result Performing Organization Address [facility] Co de Phone Number SABRA ROGERS ([place]) 1 [facility] [place] [place] [address] * Prepare RBC (11/14/2024 11:22 AM CDT) Unit Number [id number] Product code [id number] [facility] ROG[facility] ([place]) Blood Expiration Date [id number] [facility] ([place]) Product Blood Type (for scanning) 5100 [facility] ([place]) Product Blood Type OPOS [facility] ([place]) Dispense Status DISPENSED [facility] ROGERS ([place]) Chalino Chapa MD BLOOD BANK PRODUCT ORDERA BLES Final Result [facility] ROGERS ([place]) 1 [facility] Department of [place] [address] * (ABNORMAL) Differential, auto (11/14/2024 9:50 AM CDT) Neutrophil abs 0.90(L) 1.50 - 6.50 K/cumm Comment:Testing performed by : [place], [address] Imm gran abs 0.01 0.00 - 0.10 K/cumm [facility] ([facility]) Comment:Testing performed by : [place], [address] Lymphocyte abs 0.46(L) 0.80 - 3.30 K/cumm [facility] ([facility]) Comment:Testing performed by : [facility], [place], [address] Monocyte abs 0.18(L) 0.20 - 0.80 K/cumm [facility] ([facility]) Comment:Testing performed by : [facility], [facility], [place], [address] Eosinophil abs 0.03 0.00 - 0.50 K/cumm [facility] ([facility]) Comment:Testing performed by : [place], [address] Basophil abs 0.01 0.00 - 0.10 K/cumm [facility] ([facility]) Comment:Testing performed by : [place], [address] Neutrophil pct 56.7 % [facility] ([facility]) Comment: Interpretive Data Percent cell count reference ranges are not reported, since discordance with absolute values may lead to misinterpretation of CBC data. Current Interpretive Data was last revised on 2017. Testing performed by: [place], [address] Imm gran pct 0.6 % [facility] ([facility]) Comment: Interpretive Data Percent cell count reference ranges are not reported, since discordance with absolute values may lead to misinterpretation of CBC data. Current Interpretive Data was last revised on 2017. Testing performed by: [place], [address] Lymphocyte pct 28.9 % [facility] ([place]) Comment: Interpretive Data Percent cell count reference ranges are not reported, since discordance with absolute values may lead to misinterpretation of CBC data. Current Interpretive Data was last revised on 2017. Testing performed by: [facility], [place], [address] Monocyte pct 11.3 % [facility] ([facility]) Comment: Interpretive Data Percent cell count reference ranges are not reported, since discordance with absolute values may lead to misinterpretation of CBC data. Current Interpretive Data was last revised on 2017. Testing performed by: [place], [address] Eosinophil pct 1.9 % [facility] ([facility]) Comment: Interpretive Data Percent cell count reference ranges are not reported, since discordance with absolute values may lead to misinterpretation of CBC data. Current Interpretive Data was last revised on 2017. Testing performed by: [place], [address] Basophil pct 0.6 % [facility] ([facility]) Comment: Interpretive Data Percent cell count reference ranges are not reported, since discordance with absolute values may lead to misinterpretation of CBC data. Current Interpretive Data was last revised on 2017. Testing performed by: [place], [address] Blood 11/14/2024 9:50 AM CDT 11/14/2024 10:09 AM CDT us Chalino Chapa MD LAB BLOOD ORDERABLES Aylin l Result [facility] ([facility]) 1 [facility] Department [place] [address] * (ABNORMAL) CBC with auto differential (11/14/2024 9:50 AM CDT) WBC 1.59(L) 3.80 - 9.90 K/cumm Comment:Testing performed by : [facility], [place], [address] Hgb 7.2(L) 11.9 - 15.5 g/dL [facility] ([facility]) Comment:Testing performed by : [facility], [facility], [place], [address] Hct 22.7(L) 35.6 - 45.5 % [facility] ([facility]) Comment:Testing performed by : [facility], [place], [address] Plt 131(L) 150 - 400 K/cumm [facility] ([facility]) Comment:Testing performed by : [facility], [place], MPV 11.3 9.1 - 12.3 fL [facility] ([place]) Comment:Testing performed by : [facility], [place], RBC 2.05(L) 3.90 - 5.20 M/cumm [facility] ([facility]) Comment:Testing performed by : [facility], [place], MCV 110.7(H) 81.3 - 96.4 fL [facility] ([facility]) Comment:Testing performed by : [facility], [place], MCH 35.1(H) 27.1 - 33.3 pg [facility] ([facility]) Comment:Testing performed by : [facility], [place], MCHC 31.7(L) 32.3 - 35.7 g/dL [facility] ([facility]) Comment:Testing performed by : [facility], [place], [address] RDW CV Not Measured 11.1 - 14.9 % [facility] ([facility]) Comment:Testing performed by : [facility], [place], [address] RDW SD Not Measured 35.7 - 48.1 fL [facility] ([facility]) Comment:Testing performed by : [facility], [place], [address] Morphologic Screen Results confirmed by manual morphology review. [facility] ([facility]) Comment:Testing performed by : [facility], [place], [address] Blood 11/14/2024 9:50 AM CDT 11/14/2024 10:09 AM CDT us Chalino Chapa MD LAB BLOOD ORDERABLES Aylin l Result [facility] ([facility]) [address] [place] [address] * ABO/Rh (11/14/2024 9:50 AM CDT) ABO/Rh O Positive Comment:Testing performed by : [facility], [place], [address] Blood 11/14/2024 9:50 AM CDT 11/14/2024 10:12 AM CDT Narrative [facility] ([facility]) - 11/14/2024 10:58 AM CDT 11/19, 11/26, 12/03 Has the patient had Daratumumab or Isatuximab in the past 6 months?->Unknown us Chalino Chapa MD LAB BLOOD BANK TEST ORDER LAITH Final Result Performing Organization Address City/[facility]/ZIP Co de Phone Number [facility] ([facility]) [address] [place] [address] [place] [address] * Crossmatch (11/14/2024 9:50 AM CDT) Pathologist [facility] [place] Crossmatch Compatible [facility] Silva ([facility]) Unit number for crossmatch [id number] [facility] ([facility]) Blood 11/14/2024 9:50 AM CDT 11/14/2024 10:12 AM CDT Chalino Chapa MD LAB BLOOD BANK TEST ORDER LAITH Final Result [facility] ([place]) [address] [place] [address] [place] [address] * Antibody screen (11/14/2024 9:50 AM CDT) Rivera, indirect, Gel Interpretation Negative ABSC Comment:Testing performed by : [facility], [place], [address] Blood 11/14/2024 9:50 AM CDT 11/14/2024 10:12 AM CDT Narrative [facility] ([place]) - 11/14/2024 10:58 AM CDT 11/19, 11/26, 12/03 Has the patient had Daratumumab or Isatuximab in the past 6 months?->Unknown us Chalino Chapa MD LAB BLOOD BANK TEST ORDER LAITH Final Result Performing Organization Address City/[facility]/ZIP Co de Phone Number [facility] ([place]) 1 [facility] Department [place] [employer] [place] [address] * (ABNORMAL) Erythropoietin (11/11/2024 11:30 AM CDT) Erythropoietin 781(H) 2.6 - 18.5 mIUnits/m L [facility] ref Lab Comment: Test Performed by: [facility] [address] [place] [address] Guidance Director: Lloyd Olmstead Ph.D.; CLIA# [id number] Testing performed by: [place], [address] Blood 11/11/2024 11:3 0 AM CDT 11/11/2024 11:53 AM CDT us Chalino Chapa MD LAB BLOOD ORDERABLES Aylin l Result Performing Organization Address [facility] Co de Phone Number [facility] ([facility]) [address] [place] [address] Department [place] [address] [place] ref [facility] * ABO/Rh (11/11/2024 11:30 AM CDT) ABO/Rh O Positive Comment:Testing performed by : [place], [address] Blood 11/11/2024 11:3 0 AM CDT 11/11/2024 11:53 AM CDT Narrative [facility] ([facility]) - 11/11/2024 12:32 PM CDT Has the patient had Daratumumab or Isatuximab in the past 6 months?->Unknown Chalino Chapa MD LAB BLOOD BANK TEST ORDER LAITH Final Result Performing Organization Address City/[facility]/ZIP Co de Phone Number [facility] ([facility]) 1 [facility] Department [place] [employer] [place] [address] * Antibody screen (11/11/2024 11:30 AM CDT) Rivera, indirect, Gel Interpretation Negative ABSC Comment:Testing performed by : [facility], [place], [address] Blood 11/11/2024 11:3 0 AM CDT 11/11/2024 11:53 AM CDT N[facility]ative [facility] ([facility]) - 11/11/2024 12:32 PM CDT Has the patient had Daratumumab or Isatuximab in the past 6 months?->Unknown Chalino Chapa MD LAB BLOOD BANK TEST ORDER LAITH Final Result Performing Organization Address [facility] Co de Phone Number [facility] ([place]) 1 [facility] Department [place] [employer] [place] [address] * (ABNORMAL) Folate (11/11/2024 11:30 AM CDT) Pathologist [facility] [place] Folic acid 3.5(L) >=5.0 ng/mL [facility] ([facility]) Blood 11/11/2024 11:3 0 AM CDT 11/11/2024 11:53 AM CDT Chalino Chapa MD LAB BLOOD ORDERABLES Aylin l Result [facility] ([facility]) 1 [facility] [place] [address] * Vitamin B12 (11/11/2024 11:30 AM CDT) Vitamin B12 1,022 230 - 1,250 pg/mL [facility] ([facility]) Blood 11/11/2024 11:3 0 AM CDT 11/11/2024 11:53 AM CDT us Chalino Chapa MD LAB BLOOD ORDERABLES Aylin freedman Result [facility] ([facility]) 1 [facility] Department [place] [address] * (ABNORMAL) Differential, auto (11/11/2024 10:45 AM CDT) Neutrophil abs 1.08(L) 1.50 - 6.50 K/cumm [facility] ([facility]) Comment:Testing performed by : [facility] [address], Medical Office [facility] [address], [place] [address] Imm gran abs 0.02 0.00 - 0.10 K/cumm [facility] ([facility]) Comment:Testing performed by : [facility] [address], Medical Office [facility] [address], [place] [address] Lymphocyte abs 0.55(L) 0.80 - 3.30 K/cumm [facility] ([facility]) Comment:Testing performed by : [facility] [address], Medical Office [facility] [address], [place] [address] Monocyte abs 0.17(L) 0.20 - 0.80 K/cumm [facility] ([place]) Comment:Testing performed by : [facility] [address], Medical Office [facility] [address], [place] [address] Eosinophil abs 0.04 0.00 - 0.50 K/cumm [facility] ([facility]) Comment:Testing performed by : [facility] [address], Medical Office [facility] [address], [place] [address] Basophil abs 0.01 0.00 - 0.10 K/cumm [facility] ([facility]) Comment:Testing performed by : [facility] [address], Medical Office [facility] [address], [place] [address] Neutrophil pct 57.8 % [facility] ([facility]) Comment: Interpretive Data Percent cell count reference ranges are not reported, since discordance with absolute values may lead to misinterpretation of CBC data. Current Interpretive Data was last revised on 2022. Testing performed by: [facility] [address], Medical Office [address], [place] [address] Imm gran pct 1.1 % [facility] ([place]) Comment: Interpretive Data Percent cell count reference ranges are not reported, since discordance with absolute values may lead to misinterpretation of CBC data. Current Interpretive Data was last revised on 2022. Testing performed by: [facility] [address], Medical Office [address], [place] [address] Lymphocyte pct 29.4 % [facility] ([place]) Comment: Interpretive Data Percent cell count reference ranges are not reported, since discordance with absolute values may lead to misinterpretation of CBC data. Current Interpretive Data was last revised on 2022. Testing performed by: [facility] [address], Medical Office [address], [place] [address] Monocyte pct 9.1 % [facility] ([place]) Comment: Interpretive Data Percent cell count reference ranges are not reported, since discordance with absolute values may lead to misinterpretation of CBC data. Current Interpretive Data was last revised on 2022. Testing performed by: [facility] [address], Medical Office [address], [place] [address] Eosinophil pct 2.1 % [facility] ([place]) Comment: Interpretive Data Percent cell count reference ranges are not reported, since discordance with absolute values may lead to misinterpretation of CBC data. Current Interpretive Data was last revised on 2022. Testing performed by: [facility] [address], Medical Office [address], [place] [address] Basophil pct 0.5 % [facility] ([place]) Comment: Interpretive Data Percent cell count reference ranges are not reported, since discordance with absolute values may lead to misinterpretation of CBC data. Current Interpretive Data was last revised on 2022. Testing performed by: [facility] [address], Medical Office [address], [place] [address] Blood 11/11/2024 10:4 5 AM CDT 11/11/2024 11:00 AM CDT Milla Armenta [employer] SUPERVISOR LAB BLOOD ORDERABLES Final Result [facility] ([place]) 1 [facility] Department [place] [address] * (ABNORMAL) CBC with auto differential (11/11/2024 10:45 AM CDT) WBC 1.87(L) 3.80 - 9.90 K/cumm [facility] ([place]) Comment:Testing performed by : [facility] [address], Medical Office [facility] [address], [place] [address] Hgb 7.2(L) 11.9 - 15.5 g/dL [facility] ([place]) Comment:Testing performed by : [facility] [address], Medical Office [facility] [address], [place] [address] Hct 22.5(L) 35.6 - 45.5 % [facility] ([place]) Comment:Testing performed by : [facility] [address], Medical Office [facility] [address], [place] [address] Plt 111(L) 150 - 400 K/cumm [facility] ([place]) Comment:Testing performed by : [facility] [address], Medical Office [facility] [address], [place] [address] MPV 11.0 9.1 - 12.3 fL [facility] ([place]) Comment:Testing performed by : [facility] [address], Medical Office [facility] [address], [place] [address] RBC 2.03(L) 3.90 - 5.20 M/cumm [facility] ([place]) Comment:Testing performed by : [facility] [address], Medical Office [facility] [address], [place] [address] MCV 110.8(H) 81.3 - 96.4 fL [facility] ([place]) Comment:Testing performed by : [facility] [address], Medical Office [facility] [address], [place] [address] MCH 35.5(H) 27.1 - 33.3 pg [facility] ([place]) Comment:Testing performed by : [facility] [address], Medical Office [address], [place] [address] MCHC 32.0(L) 32.3 - 35.7 g/dL [facility] ([place]) Comment:Testing performed by : [facility] [address], Medical Office [address], [place] [address] RDW CV 26.2(H) 11.1 - 14.9 % [facility] ([place]) Comment:Testing performed by : [facility] [address], Medical Office [address], [place] [address] RDW SD 96.8(H) 35.7 - 48.1 fL [facility] ([place]) Comment:Testing performed by : [facility] [address], Medical Office [address], [place] [address] Blood 11/11/2024 10:4 5 AM CDT 11/11/2024 11:00 AM CDT us Milla Armenta [employer] SUPERVISOR LAB BLOOD ORDERABLES Final Result [facility] ([place]) 1 [facility] Department [place] [address] * eGFR (11/11/2024 8:11 AM CDT) eGFR [...] was last reviewed 2021. Testing performed by: [facility], One [facility], [place], [address] Blood 11/11/2024 8:11 AM CDT 11/11/2024 11:14 AM CDT us Chalino Chapa MD LAB BLOOD ORDERABLES Aylin freedman Result [facility] ([facility]) 1 [facility] [place] [address] * (ABNORMAL) Comprehensive metabolic panel (11/11/2024 8:11 [...] ([place]) Glucose 158 70 - 199 mg/dL [facility] ([facility] Comment: Interpretive Data Fasting glucose [...] 9.6 8.5 - 10.3 mg/dL [facility] ([facility]) Bilirubin, total 0.8 0.1 - 1.2 mg/dL [...] ORDERABLES Aylin freedman Result Performing Organization Address City/State/[facility] Co de Phone Number [facility] ([place]) 1 [facility] [place] [address] from Last 3 Months Insurance MEDICARE MEDICARE [facility] MEDICARE SUPPLEMENT MEDICARE [facility] MEDICARE SUPPLEMENT Advance Directives For more information, please contact: [phone] Documents on File Type Date Recorded Patient Dynamics Ax Consultant Expl anation ADVANCE DIRECTIVE 12/20/2023 8:01 AM Power of Director Of Search Engine Marketing-Medical * Full Code (Latest Code Status on File) Date Activated Date Inactivated Comments 09/28/2024 7:50 PM 10/07/2024 7:51 PM * Full Code Date Activated Date Inactivated Comments 12/11/2023 12:19 PM 12/19/2023 6:45 PM Care Teams Judge'S Clerk Relationship Specialty Start Date End Date Bryan Davey DO PCP - General Internal Medicine 11/14/23 Prateek King MD [address] [place] [address] Consulting Physician Urology 10/07/24 Sherman Alvarez DO [address] [place] [address] Medical Oncologist/Child Care Group Leader Hematology and Oncology 10/07/24
--- OUTSIDE RECORDS SUMMARY | 2025-02-06 19:05 | XMS_ITS | Encounter Summary ---
Author Organization [facility] Health Address [address] [place] [address] Care Team Providers Care Reed Fixer Name Role Phone Mervat Kelley REELING OPERATOR-BODY AND FENDER WORKER Primary Care Provider + Encounter Details Date Type Department Care Team (Late st Contact Info) Description 10/05/2022 Lab Requisition [facility] - Pathology Lab [address] [place] [address] Jesus Louis MD [address] [address] Anemia, unspecified Social History Tobacco [...] AM CDT) Case Report Flow Cytometry Case: [id number] Authorizing Provider: Jesus Louis MD Collected: 10/05/2022 09:15 AM Ordering Location: [facility] Pathology Lab Received: 10/05/2022 02:15 PM Pathologist: Linda Hauser MD Specimen: Bone Marrow 10/05/2022 4:45 PM CDT [facility] Final Diagnosis Bone marrow, flow cytometric immunophenotypic analysis: - No evidence of non-Hodgkin lymphoma or high-grade myeloid neoplasm. - See interpretation. 10/05/2022 4:45 PM CDT [facility] PATHOLOGY LAB at 1644 CDT Flow Cytometry Interpretation The bone marrow specimen has a viability of 85%. Within the lymphocyte gate, there is no monoclonal B-cell population identified (kappa:lambda ratio = 2.3:1). There is no expanded T-cell population seen. By CD34, 1.1% of all events analyzed are blasts. A bone marrow aspirate smear prepared from the flow cytometry specimen is reviewed for quality internship purposes. The bone marrow specimen shows no [...] # [id number] 10/05/2022 4:45 PM CDT [facility] PATHOLOGY LAB Number of markers 10 were performed. A-2 Flow CD10 A-3 Flow CD13 A-5 Flow CD20 A-1 Flow CD5 A-4 Flow CD19 A-6 Flow CD33 A-7 Flow CD34 A-8 Flow CD45 A-9 [place]+CD19+ A-10 Lambda+CD19+ 10/05/2022 4:45 PM CDT [facility] PATH[facility]Y LAB Pathologist Location at [facility] 10/05/2022 4:45 PM CDT [facility] PATHOLOGY LAB Disclaimer Test performed at [facility], [address] [place], [place], [address]. *The established laboratory minimum viability is 70%. [...] LAB Embedded Images 4:45 PM CDT [facility] PATHOLOGY LAB Pathology/Cytolo gy BONE MARROW SPECIMEN / Unknown 10/05/2022 9:15 AM CDT 10/05/2022 2:15 PM CDT Jesus Louis MD LAB - PATHOLOGY/CYTOLOGY ORDERAB LES Final Result Performing Organization Address City/State/[facility] Co de Phone Number [facility] PATHOLOGY LAB [address] [place] [address]. [address] [phone] documented in this encounter Visit Diagnoses Diagnosis Anemia, unspecified documented in this encounter Care Teams Reed Fixer Relationship Specialty Start Date End Date Mervat Kelley APRN-CNP [address] [address] PCP - General 11/24/21 documented as of this encounter
--- OUTSIDE RECORDS SUMMARY | 2025-02-06 19:05 | XMS_ITS | Encounter Summary ---
Author Organization [facility] Health Address [address] [place] [address] Care Team Providers Care Bench Assembler Operator Name Role Phone Mervat Kelley MANAGER ACTIVITIES-CURTAIN INSPECTOR Primary Care Provider + Encounter Details Date Type Department Care Team (Late st Contact Info) Description 10/06/2022 Lab Requisition [facility] - Pathology Lab [address] [place] [address] Jesus Louis MD [address] [address] Illness, unspecified Social History Tobacco [...] Report Bone Marrow Patholog y Report Case: [id number] Authorizing Provider: Jesus Louis MD Collected: 10/05/2022 09:15 AM Ordering Location: [facility] Pathology Lab Received: 10/06/2022 01:27 PM Pathologist: Linda Hauser MD Specimens: A) - Bone Marrow Clot, Fluoro-guided bone marrow aspiration B) - Bone Marrow Core, Fluoro-guided bone marrow core bx 10/07/2022 1:40 PM CDT [facility] Final Diagnosis Bone marrow, [...] normal. Platelet morphology: normal. 10/07/2022 1:40 PM [facility] Bone Marrow Aspirate The [...] Control is appropriately reactive. 10/07/2022 1:40 PM [facility] Bone Marrow Core Biopsy [...] an increased number of early erythroid progenitors. [id number] demonstrates additional, more mature erythroid lineage cells, confirming erythroid hyperplasia. Myeloperoxidase is positive in relatively fewer numbers of myeloid precursors. CD3 and CD20 show a normal number and distribution of T-cells and B-cells, respectively. Reticulin staining shows no significant marrow fibrosis (MF-0), and trichrome staining shows no collagen deposition. 10/07/2022 1:40 PM [facility] Flow Cytometry Summary Concurrent flow cytometry ([id number]) shows no evidence of non-Hodgkin lymphoma or high-grade myeloid neoplasm. 10/07/2022 1:40 PM [facility] Clinical History 82 year old woman with macrocytic anemia. 10/07/2022 1:40 PM CDT [facility] Materials Received Received are 22 slides and 3 blocks (A1, A2; B1) labeled [id number] along with a copy of the outside pathology report. The materials originate from [facility], [address] [place] [address] [place] [address]. All original materials are returned to the referring institution, along with a copy of our final report. 10/07/2022 1:40 PM CDT [facility] Pathologist Location at [facility] 10/07/2022 1:40 PM CDT [facility] Disclaimer The performance characteristics of all immunohistochemical and indirect immunofluorescence stains (if any) cited in this report were determined by the Histopathology Laboratory of [facility]. Some of these tests were [...] attending (teaching) pathologist. 10/07/2022 1:40 PM CDT [facility] Embedded Images 10/07/2022 1:40 PM CDT [facility] Pathology/Cytology BONE MARROW SPECIMEN / Unknown 10/05/2022 9:15 AM CDT 10/06/2022 1:27 PM CDT Miscellaneous samples (specimen) BONE MARROW SPECIMEN / Unknown 10/05/2022 9:15 AM CDT 10/06/2022 1:27 PM CDT us Jesus Louis MD LAB - PATHOLOGY/CYTOLOGY ORDERAB LES Final Result [facility] [address] [place], [place] [id number] [place] [address] documented in this encounter Visit Diagnoses Diagnosis Illness, unspecified documented in this encounter Care Teams Bench Assembler Operator Relationship Specialty Start Date End Date Mervat Kelley APRN-DAVIS [address] [phone] PCP - General 11/24/21 documented as of this encounter
--- OUTSIDE RECORDS SUMMARY | 2025-02-06 19:05 | XMS_ITS | Clinical Summary ---
Author Organization [facility] Facility Address [address] [address] Care Team Providers Care Water Taxi Ferry Operator Name Role Phone Unavailable Primary Care [...]
--- OUTSIDE RECORDS SUMMARY | 2025-02-06 19:05 | XMS_ITS | Clinical Summary ---
Author Organization [facility] Address [address] [place] [address] Care Team Providers Care Lace Pinner Name Role Phone Mervat Kelley GERA-AIRPLANE ELECTRICIAN Primary Care Provider + Source Comments [facility],non-owned Affiliates and Associated Physician Practices is amultiple site organization consisting of ambulatory clinics and hospital sitesin [place], [place] and [place]. This disclosure is being madepursuant to the Care Everywhere program and may not contain all information available regarding this patient. Last updated 17.[facility] Allergies Active Allergy Reactions [...] daily Active fish oil/omega-3 fatty acids (Promega;Cardi -Irwin 3) 1000 MG capsule Take 2 (two) [...] kg (158 lb) 04/06/2022 10:56 AM SENIOR FINANCE MANAGER Height 152.4 cm (5') 12/22/2021 12:39 PM [...] age to complete this topic Insurance [facility] Address: [facility] [id number] [place] [address] [facility] Address: [address] [place] [address] MEDICARE Advance Directives * Full Code (Latest Code Status on File) Date Activated Date Inactivated Comments 09/29/2021 4:59 AM 09/30/2021 2:57 PM Care Teams Lace Pinner Relationship Specialty Start Date End Date Mervat Kelley APRN-CNP [address] [phone] PCP - General 11/24/21
--- OUTSIDE RECORDS SUMMARY | 2025-02-06 19:05 | XMS_ITS | Clinical Summary ---
Author Organization [facility] Address [address], [address] [address] Phone Care Team Providers Care Collections Rep Name Role Phone Mervat Kelley APRN Primary Care Provider [phone] Medications polyethylene glycol (MIRALAX) Powder Use entire [...] age to complete this topic Insurance MEDICARE [facility] Care Teams Collections Rep Relationship Specialty Start Date End Date Mervat Kelley APRN PCP - General Advanced Practice Nurse 06/12/17
--- OUTSIDE RECORDS SUMMARY | 2025-02-06 19:05 | XMS_ITS ---
Author Organization [facility] [address] Address [address] [place] [address] Care Team Providers Care Melt House Centrifugal Operator Name Role Phone Bryan Davey DO Primary Care Provider Prateek King MD Unavailable Sherman Alvarez DO Unavailable [phone] Active Problems Problem Noted Date Diagnosed Date [...] MD Linked Problems MDS (myelodysplastic syndrom e) ([facility]) Treatment Medications Current Day (Day 1 , [...] (06/06/2018): Added automatically from request for surgery [id number]
--- OUTSIDE RECORDS SUMMARY | 2025-02-06 19:05 | XMS_ITS | Encounter Summary ---
Author Organization [facility] Address [facility] [place] [address] Care Team Providers Care Supply Technician Name Role Phone Andie Ang MD Primary Care Provider + [phone] Mervat Kelley Primary Care Provider + Andie Ang MD Primary Care Provider + [phone] Mervat Kleley Primary Care Provider + Andie Ang MD Primary Care Provider + [phone] Mervat Kelley Primary Care Provider + Encounter Details Date Type Department Care Team (Late st Contact Info) Description 11/15/2018 Lab Requisition [facility] Care DermPath Lab [address] [place] [address] Sarath De Guzman MD [address] [address] Social History Tobacco Use Types Packs/Day Years [...] AM CDT) Case Report Dermatopathology Report Case: [id number] Authorizing Provider: Sarath De Guzman MD Collected: 11/14/2018 12:00 AM Ordering Location: [facility] DermPath Lab Received: 11/15/2018 12:29 PM [...] specimen consists of a shave biopsy measuring [id number]. Jar 0. 12:59 PM CDT DERMATOPATHOLOGY LABORATORY [...] characteristic determined by the Dermatopathology Laboratory at [facility], directed by Dr. Frederick Schofield. These tests need not be, and therefore are not, approved by the [place] Food and Drug Administration. The tests are used for clinical purposes. Billing Codes Specimen Charges Stain Charges 46154 1 12:59 PM CDT DERMATOPATHOLOGY LABORATORY Embedded Images 12:59 PM CDT DERMATOPATHOLOGY LABORATORY Pathology/Cytolog y TISSUE SPECIMEN FROM SKIN / Unknown 11/14/2018 11/15/2018 12:29 PM CDT Sarath De Guzman MD LAB - PATHOLOGY/CYTOLOGY ORD ERABLES Final Result DERMATOPATHOLOGY LABORATORY [facility] - Department of Dermatology [address] [place] [address], [facility] [phone] documented in this encounter Visit Diagnoses Not on filedocumented in this encounter Care Teams Supply Technician Relationship Specialty Start Date End Date Andie Ang MD [address] [phone] PCP - General 08/18/17 09/29/21 Mervat Kelley APRN-AIRFIELD SERVICES OFFICER [address] [place] [phone] PCP - General Nurse Practitioner 09/30/21 09/30/21 Andie Ang MD [address] [phone] PCP - General 10/01/21 10/12/21 Mervat Kelley APRN-AIRFIELD SERVICES OFFICER [address] [phone] PCP - General 10/13/21 10/31/21 Andie Ang MD [address] [phone] PCP - General 11/01/21 11/23/21 Mervat Kelley APRN-AIRFIELD SERVICES OFFICER [address] [phone] PCP - General 11/24/21 documented as of this encounter
== END 2025-02-06 11:18 | disposition home or self-care (01) ==
PROVIDERS: PCP Nurse Practitioner; Visit Provider Nurse Practitioner
DX: R30.0 Dysuria (principal); E03.9 Hypothyroidism, unspecified; Z13.29 Encounter for screening for other suspected endocrine disorder
CPT/HCPCS: 36415; 81001; 84443; 87077; 87086; 87186